=== PATIENT | male | born 1935 | race Caucasian/White ===

== ENCOUNTER → 2017-06-26 | Emergency (ER) | payer MEDICARE, OTHER ==
[~2017-06-26] VITALS: Ht 188 cm; Wt 88.5 kg
[~2017-06-26] MED LIST: ADVAIR 100-501 EACH INH; AMLODIPINE BESYL5 MG; ASPIR-LOW81 MG; ATIVAN1 MG PO; CARTIA XT240 MG PO; CLARITIN10 MG; FUROSEMIDE20 MG PO; IPRAT-ALBUT 0.5-3 ML INH; LISINOPRIL20 MG; NORCO 5-325 TA1 EACH PO; OMEPRAZOLE40 MG PO; PRAVASTATIN SOD10 MG PO; PREDNISONE20 MG PO; TAMIFLU75 MG PO; TRAZODONE HCL50 MG PO; ZITHROMAX250 MG PO
--- OUTSIDE RECORDS SUMMARY | 2017-06-26 01:40 | XMS | Clinical Summary ---
Demographics + + + | Address | [address] | | | [place] [address] | + + + | Home Phone | | + + + | Preferred Language | Unknown | + + + | Marital Status | | + + + | Orthodoxy Affiliation | Unknown | + + + | Race | White | + + + | Ethnic Group | Not or | + + + Author + + + | Author | [facility] | + + + | Organization | [facility] | + + + | Address | Unknown | + + + | Phone | Unavailable | + + + Support +------+ +---------+ + | Name | Relationship | Address | Phone | +------+ +---------+ + ECON | Unknown | Unavailable | +------+ +---------+ + Care Team Providers + +------+ + | Care Outer Diameter Grinder Tool Name | Role | Phone | + +------+ + | Daryl March MD | PP | | + +------+ + Source Comments BETTINA is fully live on both [facility] Ambulatory and [facility] InPatient.[facility] Allergies Not on File Current Medications Not on file Active Problems Not on file Social History + +-------+ +--------+------+ | Tobacco Use | Types | Packs/Day | Years | Date | | | | | Used | | + +-------+ +--------+------+ | Never Assessed | | | | | + +-------+ +--------+------+ + + + | Sex Assigned at | Date Recorded | | | | + + + | Not on file | | + + + Plan of Treatment + + + + + | Health Maintenance | Due Date | Last Done | Comments | + + + + + | INFLUENZA VACCINE | | | | | (FLU SHOT) | 7 | | | + + + + + Results Not on filefrom Last 3 Months"
--- OUTSIDE RECORDS SUMMARY | 2017-06-26 01:40 | XMS | Clinical Summary ---
Demographics + + + | Address | [address] | | | [place] [address] | + + + | Home Phone | | + + + | Preferred Language | Unknown | + + + | Marital Status | | + + + | Congregational Affiliation | Unknown | + + + | Race | White | + + + | Ethnic Group | Not or | + + + Author + + + | Author | [facility] | + + + | Organization | [facility] | + + + | Address | Unknown | + + + | Phone | Unavailable | + + + Support +------+ +---------+ + | Name | Relationship | Address | Phone | +------+ +---------+ + ECON | Unknown | Unavailable | +------+ +---------+ + Care Team Providers + +------+ + | Care Drying Machine Back Tender Name | Role | Phone | + +------+ + | Daryl March MD | PP | | + +------+ + Source Comments BETTINA is fully live on both [facility] Ambulatory and [facility] InPatient.[facility] Allergies Not on File Current Medications Not [...]
--- NOTE | 2017-06-26 13:25 | EKG ---
[facility] [address] [facility] [place] [address] Signed Sinus tachycardia Right bundle branch block Abnormal ECG When compared with ECG of 26-JUN-2017 00:48, (Unconfirmed) No significant change was found Confirmed by AMANDA GONZALES MD ([id number]) on 06/26/2017 1:25:42 PM Electronically Signed By: AMANDA GONZALES MD 06/26/17 1325 PATIENT NAME: NATALIEDSON Electrocardiogram DATE OF : 35 PHYSICIAN: AMANDA GONZALES MD REPORT #: [id number] REPORT IS CONFIDENTIAL AND NOT TO BE RELEASED WITHOUT AUTHORIZATION
--- NOTE | 2017-06-26 13:25 | EKG ---
[facility] [address] [facility] [place] [address] Signed Sinus rhythm Right bundle branch block Abnormal ECG When compared with ECG of 24-MAY-2016 18:47, No significant change was found Confirmed by AMANDA GONZALES MD ([id number]) on 06/26/2017 1:25:15 PM Electronically Signed By: AMANDA GONZALES MD 06/26/17 1325 PATIENT NAME: NATALIEDSON SOTO Electrocardiogram DATE OF : 35 PHYSICIAN: AMANDA GONZALES MD REPORT #: [id number] REPORT IS CONFIDENTIAL AND NOT TO BE RELEASED WITHOUT AUTHORIZATION
== END ==
LOC: ED 00:45
PROC: 0T9B70Z Drainage of Bladder with Drainage Device, Via Natural or Artificial Opening (ICD-10-PCS; principal; 2017-06-26)
DX: K83.0 Cholangitis (principal); J44.9 Chronic obstructive pulmonary disease, unspecified; J96.00 Acute respiratory failure, unspecified whether with hypoxia or hypercapnia; I11.0 Hypertensive heart disease with heart failure; I50.9 Heart failure, unspecified; Z87.891 Personal history of nicotine dependence; Z88.8 Allergy status to other drugs, medicaments and biological substances; Z79.899 Other long term (current) 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
CPT/HCPCS: 31500; 36600; 51702; 71045; 76705; 80053; 81001; 82803; 83605; 83690; 83880; 84484; 85025; 87040; 87077; 87184; 87186; 87502; 93005; 93010; 94002; 94640; 94660; 96361; 96374; 96375; 99291; 99292; J0295; J2405; J2704; J2930; J7030

== ENCOUNTER 2017-07-13 09:35 | Day surgery (SDC) | payer MEDICARE, OTHER ==
[~2017-07-13] VITALS: Ht 175.3 cm; Wt 85.3 kg
[~2017-07-13 09:35] MED LIST changes: -NORCO 5-325 TA1 EACH PO
--- NOTE | 2017-07-13 15:28 | NUR ---
07/13/17 Jyothi8 Alexia Avalos 1519-PATIENT ARRIVED TO PACU ON 6L MASK O2 SAT 99% PATIENT REACTIVE EYES OPEN. PATIENT HAS 3 LAP INCISIONS CDI AND 1 INCISION FROM CYST CDI ICE APPLIED.
--- NOTE | 2017-07-13 16:23 | NUR ---
1600: PATIENT UP TO BATHROOM. GAIT STEADY. VOID WITHOUT DIFFICULTY. GAIT STEADY BACK TO ROOM. IV DC'D WNL. DISCHARGE INSTRUCTIONS GIVEN TO PATIENT. PATIENT GETTING DRESSED WITH HELP OF FRIEND. 1612: PATIENT DISCHARGED TO HOME WITH FRIEND VIA WHEELCHAIR.
--- NOTE | 2017-07-13 16:41 | NUR ---
PATIENT BACK IN DAY SURGERY ROOM FROM PACU. C/O PAIN 10/28. MEDICATED WITH IV DILAUDID FOR PAIN. RIGHT CHEST DRESSING CDI. ABDOMINAL DRESSINGS X 3 CDI. IV SITE WNL. SCDs ON. CALL LIGHT WITHIN REACH. PRESCRIPTION GIVEN TO DAUGHTER TO GO GET FILLED.
--- NOTE | 2017-07-13 17:10 | NUR ---
1650: DR. MARR NOTIFIED OF PATIENT STATUS. ORDERS RECEIVED. 1705: REPORT GIVEN TO M/S RN. PATIENT TRANSFERRED TO ROOM 121 FOR EXTENDED RECOVERY OVERNIGHT.
--- NOTE | 2017-07-13 17:17 | NUR ---
1710-PATIENT TRANSFERRED TO ROOM 121 VIA STRETCHER ON 2L NC O2 SAT 95% PATIENT AWAKE AND ALERT REPORTS PAIN 2/10 SB HR 55. INCISIONS CDI DAUGHTER TOOK PRESCRIPTIONS TO PHARMACY.
--- NOTE | 2017-07-13 17:28 | NUR ---
PT HAS ARRIVED FROM PACU, VITALS TAKEN, AND PT IS NOW RESTING SAFELY IN BED WITH CALL LIGHT IN REACH. PT ASKED FOR SOUP AND JERROD
--- NOTE | 2017-07-13 18:44 | NUR ---
PATIENT TO FLOOR FROM SURGERY, ALERT AND ORIENTED. PATIENT DENIED NAUSEA. RATED HIS PAIN @ 2/10. 4 LAP SITES ON THE ABD COVERED WITH GAUZE AND D/C/I. IV FLUID INFUSING @ 75ML/HR. PATIENT TOLERATED PO WELL. HAD SOUP AND JELLO. PATIENT ON 2L O2. TELE # 7. PULSE OXYMETER
--- NOTE | 2017-07-13 19:35 | NUR ---
ROUNDED CHARGE. PATIENT IS RESTING IN BED. PATIENT DENIES ANY PAIN OR NAUSEA. NO NEEDS NOTED. NO COMMENTS, QUESTIONS, OR CONCERNS. CALL LIGHT IN REACH.
--- NOTE | 2017-07-13 19:55 | NUR ---
RECIEVED REPORT FROM DAY SHIFT NURSE. ASSISTED PATIENT TO BATHROOM TO VOID. BACK TO BED. CALL LIGHT IN REACH.
--- NOTE | 2017-07-13 20:15 | NUR ---
PATIENT RESTING IN BED. RATES ABDOMINAL "ACHEY" PAIN 10/28. 1 TAB NORCO ADMINISTERED. ABDOMINAL DRESSING ARE ALL C/D/I. HYPOACTIVE BS HEARD, PATIENT DENIES FLATUS AT THIS TIME. LUNGS ARE DIMINISHED, ENCOURAGED INCENTIVE SPIROMETER. HR REGULAR. PALPABLE PEDAL PULSES. SCDS IN PLACE. WATER PITCHER FILLED. PATIENT DENIES FURTHER NEEDS. CALL LIGHT IN REACH.
--- NOTE | 2017-07-13 22:01 | NUR ---
AMBULATED WITH PATIENT AROUND MS UNIT. PATIENT RATING ABDOMINAL PAIN 11/27. DILAUDID ADMINISTERED WHEN HE GOT BACK INTO BED. PATIENT SITTING AT A DANGLE ON EDGE OF BED. DENIES FURTHER NEEDS. CALL LIGHT IN REACH.
--- NOTE | 2017-07-13 23:15 | NUR ---
PATIENT RESTING IN BED WITH EYES CLOSED. CONT. PULSE OX IN PLACE, O2 AT 92% ON 2L. IVF INFUSING W/O DIFFICULTY. CALL LIGHT IN REACH.
--- NOTE | 2017-07-14 01:11 | NUR ---
PATIENT SLEEPING. CONT. PULSE OX IN PLACE. IVF INFUSING W/O DIFFICULTY. CALL LIGHT IN REACH.
--- NOTE | 2017-07-14 01:35 | NUR ---
RAG COLLECTOR OBTAINING VS AND ASSISTING AMBULATING PATIENT TO THE BATHROOM.
--- NOTE | 2017-07-14 01:42 | NUR ---
PATIENT STATES PAIN AT A TOLERABLE LEVEL AND DOES NOT REQUIRE PAIN MEDICATION AT THIS TIME.
--- NOTE | 2017-07-14 02:00 | NUR ---
PATIENT ONLY ABLE TO VOID 50CC. BLADDER SCANNNED PATIENT TO FIND 986CC. CALLED DR. MARR, OBTAINED ORDER FOR STRAIGHT CATH. CATHED PATIENT AND OBTAINED 725CC OF URINE OUT. PATIENT DENIES FURTHER NEEDS. DENIES PAIN. CALL LIGHT IN REACH.
--- NOTE | 2017-07-14 04:19 | NUR ---
PATIENT SLEEPING. CONT. PULSE OX AT 94%. CALL LIGHT IN REACH.
--- NOTE | 2017-07-14 05:33 | NUR ---
PATIENT RESTING IN BED, REQUESTING PAIN MEDICATION. ADMINISTERED 2 TAB NORCO FOR PAIN 7/. PATIENT STATES IT IS SHARP PAIN. ACTIVE BS IN RUQ AND HYPOACTIVE IN LUQ AND BLQ. PATIENT DENIES FLATUS AT THIS TIME. ABD IS SOFT. LAP SITE AT UMBILLICUS SHADOWING WELL THE DRESSING DIRECTLY ABOVE. THE REST ARE C/D/I. PATIENT AT 92% ON 2L/MIN VIA NASAL CANNULA. GAVE PATIENT A PUDDING TO TAKE WITH HIS PAIN MEDS. IVF INFUSING W/O DIFFICULTY. CALL LIGHT IN REACH.
--- NOTE | 2017-07-14 07:48 | NUR ---
REPORT RECEIVED FROM MANDO. PATIENT AWAKE IN BED, REPORT MINIMAL PAIN. IV SITE PATENT AND FLUID INFUSING. FLOMAX ADMINISTERED TO PATIENT PER MD ORDER.
[2017-07-14] MEDS ORDERED: NORCO 5-325 TA1 EACH PO (08:05)
--- NOTE | 2017-07-14 09:55 | NUR ---
PATIENT UP SITTING AT BEDSIDE. REPORT NO NAUSEA, MINIMAL ABD PAIN. SHIFT ASSESSMENT DONE. ABD DRESSING IN REMOVED PER MD ORDER. 4 LAPS SITES AND A RIGHT UPPER INCISION WITH SUTURE. ALL WNL. POSITIVE BOWEL TONE. PATIENT DENIES PASSING FLATUS. LUNGS CLEAR.IV SITE PATENT AND FLUID INFUSING. TELE DC. PATIENT WAS UP WALKING IN THE HALLWAY WITH NO DIFFICULTY. BACK TO BED AT THIS TIME.
--- NOTE | 2017-07-14 10:08 | NUR ---
PT WALKED TO BATHROOM, VOIDED, THEN RETURNED TO BED. PT IS NOW RESTING IN BED WITH CALL LIGHT IN REACH. PT DID NOT NEED ANYTHING ELSE AT THE MOMENT
--- NOTE | 2017-07-14 11:19 | NUR ---
PATIENT VOIDED 125ML AND HAD 166ML RESIDUAL IN BLADDER SCAN.
--- NOTE | 2017-07-14 12:27 | NUR ---
PATIENT AMBULATED TWO LAPS IN PULLIAM. RAMIRO C/O CONSTIPATION. WOULD LIKE FLEETS ENEMA. PATIENT WAS ABLE TO VOID 150MLS OF URINE. BS FOR 150.
--- NOTE | 2017-07-14 12:30 | NUR ---
DR MARR WAS NOTIFIED ABOUT PATIENT URINE OUTPUT AFTER THE FLOMAX. ALSO ABOUT PATIENT C/O CONSTIPATION. ORDER RECEIVED FOR FLEET ENEMA AND TO D/C PATIENT HOME LATER.
--- NOTE | 2017-07-18 06:10 | OR ---
[facility] [address] [place], [place] [address] Signed DATE OF OPERATION: 07/13/2017 SURGEON: Ez Flowers MD PREOPERATIVE DIAGNOSES: 1. Recurrent cyst, right chest wall. 2. Cholecystitis with cholelithiasis. 3. Choledocholithiasis status post ERCP with endobiliary stent. POSTOPERATIVE DIAGNOSES: 1. Recurrent cyst, right chest wall. 2. Cholecystitis with cholelithiasis. 3. Choledocholithiasis status post ERCP with endobiliary stent. PROCEDURE: 1. Excision of right chest wall cyst. 2. Laparoscopic cholecystectomy with intraoperative cholangiogram. ESTIMATED BLOOD LOSS: None. FINDINGS: Carlos clearly had some retained stones and debris in his cystic duct, which we milked out. He has had similar stones and debris inside the gallbladder itself. The intraoperative cholangiogram showed contrast flowing around his stent into the duodenum. There may have been some debris in the common bile duct, in fact maybe an air bubble as well. INDICATIONS: Carlos an 82-year-old gentleman I have known for quite some time. He came to our local emergency room with significant right upper quadrant abdominal pain and sepsis. He had to be intubated and flown to [facility]. He underwent an emergent ERCP with removal of the common bile duct stones and placement of an endobiliary stent. He was kept in the hospital on IV antibiotics. He improved and within about a week was discharged. He was offered his cholecystectomy at [facility], but he asked to come home here to [place] to have me do it here locally. I met with Carlos in the office and I gave him a booklet on the gallbladder. We looked at its location and function. We looked at laparoscopic versus open cholecystectomy. Also understands dissection on ERCP. He understands expected intraop and postop course. We did review the risks including, but not limited to Electronically Signed By: EZ FLOWERS MD 07/18/17 0610 PATIENT NAME: CARLOS HURST OPERATIVE REPORT DATE OF : 35 REPORT #: [id number] PHYSICIAN: EZ FLOWERS MD PCP: NO PRIMARY CARE PHYSICIAN REPORT IS CONFIDENTIAL AND NOT TO BE RELEASED WITHOUT AUTHORIZATION [facility] [address] [place], [place] [address] Signed bleeding, infection, scarring, change in contour of the skin, damage to bowel, damage to main bile duct, incisional hernias and other unforeseen comorbidities. He had expressed understanding and wished to proceed. Also, Carlos has a chronically recurring draining cyst on his right chest wall. He asked if I could excise that at the same time in the OR while he was asleep. It is certainly simple enough. Again, there is risk to that surgery including, but not limited to bleeding, infection, scarring, change in contour of the skin as well as recurrent cyst in the same or other locations. He had expressed understanding and wished to proceed. PROCEDURE NOTE: I met with Carlos and his daughter before surgery. After review, Carlos was taken into the operating room and placed in the supine position under general endotracheal tube anesthesia. We had marked the cyst on his right chest wall. He was given preoperative antibiotics along with subcutaneous heparin. SCDs were utilized. He was then prepped and draped in the usual sterile fashion. We placed our trocars in our usual positions under direct visualization of camera without difficulty. The gallbladder was grasped and elevated in the right upper quadrant. The findings were as above. He had some adhesions around the gallbladder into the liver as well as some remaining edema in the gallbladder wall along with the portal triad. The triangle of Calot was dissected free and a clip was placed on the cystic artery and it was divided. We opened the cystic duct and milked out several black gallstones and debris. After this the intraoperative cholangiocatheter was inserted into the cystic duct without difficulty. The intraoperative cholangiogram was then performed. The cystic duct stump was then secured with a PDS Endoloop and 2 clips were placed on the cystic duct stump to eddy its location. After this, the gallbladder was removed from the liver with the help of cautery and placed into an EndoCatch bag. The right upper quadrant was then irrigated and suctioned out until clear. We then used our laparoscopic suturing device to close the fascia of the subxiphoid trocar site with 0 Vicryl suture. All the gas was allowed to escape and the remaining trocars were removed along with the gallbladder. The gallbladder was opened on the back table by our circulating nurse. The fascia of the supraumbilical trocar site was closed with interrupted [id number] and simple 0 Vicryl sutures. Local anesthetic was then copiously injected into all trocar sites. Each trocar site was irrigated and suctioned out until clear. The skin and dermis of each trocar site were then closed with interrupted 3-0 subcuticular Monocryl sutures. After this, we used an elliptical incision to excise the right chest wall cyst. The dermis was reapproximated with interrupted 3-0 subcuticular Monocryl sutures. The skin edges were reapproximated with a running 6-0 fast absorbing plain gut suture. Dry gauze and tape were then applied to all incisions. Carlos was awakened from his anesthesia, extubated in the OR, and taken to recovery room in stable condition. Electronically Signed By: EZ FLOWERS MD 07/18/17 0610 PATIENT NAME: CARLOS HURST OPERATIVE REPORT DATE OF : 35 REPORT #: [id number] PHYSICIAN: EZ FLOWERS MD PCP: NO PRIMARY CARE PHYSICIAN REPORT IS CONFIDENTIAL AND NOT TO BE RELEASED WITHOUT AUTHORIZATION [facility] [address] [place], [place] [address] Signed Ez Flowers MD ALB/MODL /[id number] cc: MD Herlinda Fernando PA-C Patricio Riquelme, md [facility] Copies: EZ FLOWERS MD, DANIELLE K [facility] Electronically Signed By: EZ FLOWERS MD 07/18/17 0610 PATIENT NAME: CARLOS HURST OPERATIVE REPORT DATE OF : 35 REPORT #: [id number] PHYSICIAN: EZ FLOWERS MD PCP: NO PRIMARY CARE PHYSICIAN REPORT IS CONFIDENTIAL AND NOT TO BE RELEASED WITHOUT AUTHORIZATION
== END 2017-07-14 14:00 | disposition home or self-care (01) ==
LOC: DS 09:35 → MS 17:00 → DS 07-14 14:00
PROVIDERS: Colon & Rectal Surgery
PROC: 0JB60ZZ Excision of Chest Subcutaneous Tissue and Fascia, Open Approach (ICD-10-PCS; 2017-07-13)
PROC: 0FT44ZZ Resection of Gallbladder, Percutaneous Endoscopic Approach (ICD-10-PCS; principal; 2017-07-13 12:30)
PROC: BF101ZZ Fluoroscopy of Bile Ducts using Low Osmolar Contrast (ICD-10-PCS; 2017-07-13 12:30)
DX: K80.10 Calculus of gallbladder with chronic cholecystitis without obstruction (principal); L72.0 Epidermal cyst; I10 Essential (primary) hypertension; K21.9 Gastro-esophageal reflux disease without esophagitis; R00.1 Bradycardia, unspecified; I73.00 Raynaud's syndrome without gangrene; E78.5 Hyperlipidemia, unspecified; J44.9 Chronic obstructive pulmonary disease, unspecified; R26.81 Unsteadiness on feet; Z88.8 Allergy status to other drugs, medicaments and biological substances; Z79.899 Other long term (current) 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; Z87.891 Personal history of nicotine dependence
CPT/HCPCS: 00790; 74300; 94762; J0694; J1170; J1644; J1885; J2405; J2704; J2710; J3010; J7120; Q9967

== ENCOUNTER 2017-07-16 01:36 | Inpatient (IN) | payer MEDICARE, SELFPAY ==
[~2017-07-16] VITALS: Ht 175.3 cm; Wt 79.9 kg
--- OUTSIDE RECORDS SUMMARY | ~2017-07-16 | XMS | Encounter Summary ---
Demographics + + + | Address | [address] | | | [place] [address] | + + + | Home Phone | | + + + | Preferred Language | Unknown | + + + | Marital Status | Single | + + + | Quaker Affiliation | NON | + + + [...] Phone | + + +---------+ + | RITESH SPRINGER | ECON | Unknown | | + + +---------+ + Care Team Providers + +------+ + | Care Hearing Aid Assembly Supervisor Name | Role | Phone | + +------+ + | Daryl March MD | PCP | | + +------+ + Encounter Details +--------+ + + + + | Date | Type | Department | Care Team | Description | +--------+ + + + + | 06/28/ | Document-Sc | Health Information | Other, Faculty | | | 2018 | anned | Services [address] | [phone] | | | | | [address] | | | | | | Road Mailcode: | | | | | | [address] | | | | | | [facility] [place] | | [place], [place] | | | | | | [address] | | | | | | [phone] | | | +--------+ + + + [...] + +---------+ + | Alcohol Use | Drinks/We | oz/Week | Comments | | | ek | | | + + +---------+ + | Yes | | | occasional | + + +---------+ + + + + | Sex Assigned at | Date Recorded | | | | + + + | Not on file | | + + + as of this encounter Plan of Treatment Not on fileas of this encounter Visit Diagnoses Not on filein this encounter"
--- OUTSIDE RECORDS SUMMARY | ~2017-07-16 | XMS | Encounter Summary ---
Demographics + + + | Address | [address] | | | [place] [address] | + + + | Home Phone | | + + + | Preferred Language | Unknown | + + + | Marital Status | Single | + + + | Orthodoxy Affiliation | NON | + + + | Race | White | + + + | Ethnic Group | Not or | + + + Author + + + | Author | [facility] | + + + | Organization | [facility] | + + + | Address | Unknown | + + + | Phone | Unavailable | + + + Support + + +---------+ + | Name | Relationship | Address | Phone | + + +---------+ + | RITESH SPRINGER | ECON | Unknown | | + + +---------+ + Care Team Providers + +------+ + | Care Ground Control Approach Technician Name | Role | Phone | + +------+ + | Daryl Mathews MD | PCP | | + +------+ + Encounter Details +--------+ + + + + | Date | Type | Department | Care Team | Description | +--------+ + + + + | 06/26/ | Inside | Digestive Health | Paulette Mckenzie MD | | | 2018 | Referral | Center at [facility] 4th | [address] | | | | Order | Floor [address] [facility] | [facility], | | | | | [facility] | [place] [address] | | | | | Mailcode: [id number] | [phone] | | | | | [address] | | | | | | [address] [place], [place] | | | | | | [address] | | | | | | [phone] | | | +--------+ + + + [...] Treatment Not on fileas of this encounter Results ERCP (06/27/2017 6:38 AM) + + + | Specimen | Performing Laboratory | + + + | | [facility] | + + + + + | Narrative | + + | Procedure Date: 06/27/2017 Patient Name: William Burns Order #: | | [id number] Date of : 1935 CSN: [id number] Admit Type: Inpatient Room: SOR | | Procedure: ERCP Indications: For therapy of | | ascending cholangitis; 82 yo M with sepsis, | | elevated LFTs and US showing mary dil and 1.3 cm | | CBD Providers: RENE Mackay | | MD ERICA (Doctor), JORDY SOLANO, | | RN (Nurse), ESTELA DAMIAN RN (Parking Station Attendant) Referring MD: Requesting | | Provider: Medicines: General Anesthesia, Indomethacin 100 mg PA | | Complications: No immediate complications. Procedure: | | Pre-Anesthesia Assessment: - ASA Grade | | Assessment: III - A patient with severe | | systemic disease. - After reviewing the risks | | and benefits, the patient was deemed in | | satisfactory condition to undergo the | | procedure. Prior to the procedure, a History | | and Physical with airway assessment was | | performed (see patient record), and patient | | medications and allergies were reviewed. The | | risks and benefits of the procedure and the sedation | | options and risks were discussed. All questions | | were answered and informed consent was | | obtained. After reviewing the risks and | | benefits, the patient was deemed in | | satisfactory condition to undergo the procedure. | | Immediately prior to administration of | | medications, the patient was re-assessed for | | adequacy to receive sedatives. The heart | | rate, respiratory rate, oxygen saturations, | | blood pressure, adequacy of pulmonary | | ventilation, and response to care were monitored | | throughout the procedure. The physical status | | of the patient was re-assessed after the | | procedure. The Olympus TJF-Q180V Duodenoscope | | #[id number] was introduced through the mouth, | | and advanced to the duodenum and used to | | inject contrast into the bile duct. The ERCP | | was accomplished without difficulty. The | | patient tolerated the procedure well. Estimated Blood Loss: Estimated blood | | loss: none. Findings: urgent SOR case for ICU patient with acute cholangitis. | | The features editor film was normal. The esophagus was successfully intubated under | | direct vision. The scope was advanced to a normal major papilla in the | | descending duodenum without detailed examination of the pharynx, larynx | | and associated structures, and upper GI tract. The upper GI tract was | | grossly normal. A short 0.035 inch Soft Jagwire was passed into the | | biliary tree. The short-nosed traction sphincterotome was passed over the | | guidewire and the bile duct was then deeply cannulated. Contrast was | | injected. I personally interpreted the bile duct images. Ductal flow of | | contrast was adequate. Image quality was excellent. Contrast extended to the | | hepatic ducts. The bile duct was significant pulled to the patient right and | | angulated. The wire could be advanced to the hepatic ducts. The main bile | | duct contained four stones, the largest of which was 8 mm in diameter. There | | was mild biliary dilation. A biliary sphincterotomy was made with a traction | | (standard) sphincterotome. There was no post-sphincterotomy bleeding. The | | biliary tree was swept with a 10 mm balloon starting at the bifurcation. | | Sludge was swept from the duct. Four stones were removed. No stones remained. | | A 10 mm balloon could be brought through the sphincterotomy with ease. | | Multiple additional balloon sweeps performed and no additional stones or | | sludge were found. Negative final occlusion cholangiogram. One 10 Fr by 10 cm | | plastic biliary stent was placed into the common bile duct. Bile flowed | | through the stent. The stent was in good position. The ampulla after | | sphincterotomy had an unusual appearance and was erythematous. Biopsies | | were taken of this region through the ERCP scope with the cold forceps | | for histology. The pancreatic duct was neither injected nor cannulated. | | Impression: - Choledocholithiasis was found. Complete removal was | | accomplished by biliary sphincterotomy and | | balloon extraction. No pus found. Given acute | | cholangitis, 10 Fr stent placed. | | - Unusual appearance of post sphincterotomy | | ampulla, bx taken | | Recommendation: F/u path F/u LFTs | | and clinically; if he doesnt improve, consider | | repeating abd US to evaluate gallbaldder | | Will need ERCP in 4 weeks post d/c to remove | | stent and clear duct | | Given that we were in SOR, images were not | | available RENE MALDONADO MD 06/27/2017 6:48:17 AM Number of Addenda: 0 Note | | Initiated On: 06/27/2017 6:38 AM CC Letter to: DARYL MATHEWS MD | + + in this encounter Visit Diagnoses + + | Diagnosis | + + | Dyspnea, unspecified type - Primary | + +"
--- OUTSIDE RECORDS SUMMARY | ~2017-07-16 | XMS | Clinical Summary ---
Demographics + + + | Address | [address] | | | [place] [address] | + + + | Home Phone | | + + + | Preferred Language | Unknown | + + + | Marital Status | Single | + + + | Hinduism Affiliation | NON | + + + | Race | White | + + + | Ethnic Group | Not or | + + + Author + + + | Author | [facility] | + + + | Organization | [facility] | + + + | Address | Unknown | + + + | Phone | Unavailable | + + + Support + + +---------+ + | Name | Relationship | Address | Phone | + + +---------+ + | RITESH SPRINGER | ECON | Unknown | | + + +---------+ + Care Team Providers + +------+ + | Care Railroad Signal Technician Name | Role | Phone | + +------+ + | Daryl March MD | PP | | + +------+ + Source Comments BETTINA is fully live on both [facility] and [facility] Allergies + + + + + + [...] + + + + + + | Fluticasone-Salmeter | Dyspnea | High | 08/11/19 | "I can't breathe | | ol | | | 14 | when I use it." | + + + + + + | Hydrochlorothiazide | Rash | | 06/26/19 | | | | | | 18 | | + + + + + + Current Medications + + +--------+---------+------+------+-------+ | Prescription | Sig. | Disp. | Refills | Star | End | Statu | | | | | | t | Date | s | | | | | | Date | | | + + +--------+---------+------+------+-------+ | furosemide 20 mg | Take 20 mg by mouth | | | 01/0 | | Activ | | oral tablet | once daily. | | | 20 | | e | | | | | | 18 | | | + + +--------+---------+------+------+-------+ | lisinopril 20 mg | Take 20 mg by mouth | | | 01/0 | | Activ | | oral tablet | once daily. | | | 320 | | e | | | | | | 18 | | | + + +--------+---------+------+------+-------+ | omeprazole 40 mg | Take 40 mg by mouth | | | 01/0 | | Activ | | oral capsule,delayed | once daily in the | | | 3/20 | | e | | release(DR/EC) | morning. | | | 18 | | | + + +--------+---------+------+------+-------+ | pravastatin 10 mg | Take 10 mg by mouth | | | 12/2 | | Activ | | oral tablet | once daily at | | | 20 | | e | | | bedtime. | | | 17 | | | + + +--------+---------+------+------+-------+ | loratadine | Take 10 mg by mouth | | | | | Activ | | (CLARITIN LIQUI-GEL) | once daily. | | | | | e | | 10 mg oral capsule | | | | | | | + + +--------+---------+------+------+-------+ | | Inhale 3 mL every | | | | | Activ | | ipratropium-albutero | four hours as needed | | | | | e | | l 0.5 mg-3 mg(2.5 mg | for dyspnea/SOB. | | | | | | | base)/3 mL | | | | | | | | inhalation solution | | | | | | | | for nebulization | | | | | | | + + +--------+---------+------+------+-------+ | naproxen sodium | Take 1 capsule by | | | | | Activ | | 220 mg oral capsule | mouth once daily as | | | | | e | | | needed. | | | | | | + + +--------+---------+------+------+-------+ | polyethylene | Mix 1 packet and | 1 | 1 | 02/1 | | Activ | | glycol 17 gram oral | take orally once | packet | | 1/20 | | e | | powder in packet | daily. | | | 18 | | | + + +--------+---------+------+------+-------+ | simethicone chew | Chew and swallow 1 | 30 | 1 | 02/1 | | Activ | | 80 mg oral | tablet three times | tablet | | 0/20 | | e | | tablet,chewable | daily as needed for | | | 18 | | | | | bloating. | | | | | | + + +--------+---------+------+------+-------+ | acetaminophen 325 | Take 2 tablets by | 30 | 1 | 02/1 | | Activ | | mg oral tablet | mouth every six | tablet | | 020 | | e | | | hours while awake. | | | 18 | | | + + +--------+---------+------+------+-------+ | | Take 1 tablet by | 27 | 0 | 02/ | 06/21 | Expir | | amoxicillin-clavulan | mouth three times | tablet | | 0/20 | 02/07 | ed | | ate 500-125 mg oral | daily for 9 days. | | | 18 | 18 | | | tabletIndications: | Indications: | | | | | | | intra-abdominal | abdominal infection | | | | | | | infection | | | | | | | + + +--------+---------+------+------+-------+ Active Problems + + + | Problem | Noted Date | + + + | Physical deconditioning | 06/30/2017 | + + + | Aspiration pneumonitis (HCC) | 06/28/2017 | + + + | S/P ERCP | 06/28/2017 | + + + | COPD (chronic obstructive pulmonary disease) (HCC) | 06/28/2017 | + + + | Essential hypertension | 06/28/2017 | + + + | Acute cholangitis | 06/27/2017 | + + + | Klebsiella sepsis (HCC) | 06/27/2017 | + + + | Choledocholithiasis | 06/26/2017 | + + + Resolved Problems + + + + | Problem | Noted | Resolved | | | Date | Date | + + + + | Non-ST elevation myocardial infarction (NSTEMI), type 2 (HCC) | 06/28/19 | | | | 18 | 8 | + + + + | Acute respiratory failure with hypoxia (HCC) | 06/28/19 | | | | 18 | 8 | + + + + | Septic shock (HCC) | 06/27/19 | | | | 18 | 8 | + + + + Encounters +--------+ + + + + | Date | Type | Specialty | Care Team | Description | +--------+ + + + + | 07/04/ | Telephone | | Franko Rowell | Other | | 2017 | | | MD [facility]erson | | +--------+ + + + + | 07/04/ | Inside | | Lyla Maldonado | | | 2018 | Referral | | MD Rashida | | | | Order | | | | +--------+ + + + + | 06/28/ | Document-Sc | | Other, Faculty | | | 2018 | anned | | | | +--------+ + + + + | 06/27/ | Sulfur Chloride Operator | | Lyla Maldonado | Choledocholithiasis | | 2017 | | | MD Rashida | (Primary Dx) | +--------+ + + + + | 06/26/ | Hospital | | Alberto Miranda MD | | | 2017 - | Encounter | | Vic Petty | | | | | | MD [facility]erson | | | 06/30/ | | | | | | 2017 | | | | | +--------+ + + + + +---+ + | | Discharge | | | Summaries | | | - | | | Alfa, | | | Virgil Chance | | | - | | | 06/30/2017 | | | 1:55 PM | | | PST | | | Formatting | | | of this | | | note may be | | | different | | | from the | | | original.[place] | | [facility] | | | Discharge | | | SummaryDisc | | | harging | | | Provider: | | | VIRGIL M | | | [place], | | | | | | MDDischargi | | | ng | | | Attending | | | Physician: | | | Dr Ho | | | | | | RiquelmePCP | | | : Daryl | | | Marier, | | | MDAdmission | | | Date: | | | 06/26/2017Dis | | | charge | | | Date: | | | Hos | | | pital Stay: | | | 4 | | | day(s)Diagn | | | osis:Princi | | | pal | | | Diagnosis:1 | | | . Septic | | | shock2. | | | Ascending | | | Cholangitis | | | Additional | | | Diagnoses:P | | | atients | | | Hospital | | | Problem | | | List:1) | | | Klebsiella | | | bacteremia | | | 2) | | | Aspiration | | | pneumonitis | | | 3) COPD4) | | | Hypertensio | | | nProcedures | | | : | | | #Intubation | | | (at OSH | | | prior to | | | transfer)#C | | | entral | | | venous | | | catheter | | | insertion, | | | RIJ - | | | 06/26/17#Ar | | | terial | | | line, R | | | radial - | | | 06/26/17Rea | | | son for | | | Admission:# | | | Septic | | | ShockHospit | | | al Course | | | by Problem | | | (with | | | follow-up | | | plan/instru | | | ctions):#Se | | | ptic | | | Shock#Ascen | | | ding | | | cholangitis | | | #Klebsiella | | | | | | bacteremiaP | | | resented as | | | transfer | | | from OSH in | | | setting of | | | subacute, | | | progressive | | | | | | post-prandi | | | al | | | abdominal | | | pain. At | | | OSH, was | | | found to be | | | tachypneic | | | (did not | | | tolerate | | | BiPAP) and | | | intubated | | | prior to | | | transfer to | | | [facility]. | | | Workup was | | | notable for | | | RUQ U/S | | | with | | | gallbladder | | | wall | | | thickening | | | & sludge | | | with | | | +Keita's | | | sign. Labs | | | remarkable | | | for CBC | | | 10.8; | | | lactate | | | 2.2; Tbili | | | 3.1; AST | | | 315; ALT | | | 259; Alk | | | Phos 221. | | | Patient | | | temporarily | | | required | | | pressor | | | support | | | while in | | | MICU. | | | Etiology of | | | septic | | | shock felt | | | most likely | | | 2/2 acute | | | cholangitis | | | (fever, | | | abd pain, | | | cholestatic | | | pattern of | | | liver | | | injury and | | | dilated | | | biliary | | | tree). | | | Initially | | | started on | | | Zosyn then | | | transitione | | | d to | | | Augmentin | | | after blood | | | cultures | | | resulted | | | +Klebsiella | | | . Pt | | | underwent | | | ERCP | | | (06/26) | | | with | | | removal of | | | several CBD | | | stones & | | | sludge | | | following | | | biliary | | | sphincterot | | | taco with 10 | | | Fr stent | | | placement | | | into CHD. | | | - continue | | | Augmentin | | | 500 TID | | | (end | | | 07/09/17) | | | - GI to | | | schedule | | | repeat ERCP | | | with | | | possible | | | stent | | | retrieval | | | - bowel | | | regimen - | | | PCP | | | follow-up | | | in 1-2 | | | wks#NSTEMI, | | | Type | | | IITrop | | | mildly | | | elevated at | | | 0.33 on | | | admission. | | | No report | | | of recent | | | CP from OSH | | | or | | | daughter. | | | No ischemic | | | changes on | | | EKGs at | | | OSH nor | | | here. | | | Suspect 2/2 | | | type II | | | NSTEMI 2/2 | | | sepsis.#Hyp | | | ertensionAn | | | ti-hyperten | | | sives | | | initially | | | held in | | | setting of | | | septic | | | shock. | | | However, | | | lisinopril | | | continued | | | prior to | | | d/c | | | following | | | resolution | | | of sepsis | | | physiology | | | and | | | elevating | | | BPs. | | | However, | | | continued | | | to hold | | | diltiazem | | | prior to | | | discharge. | | | - | | | continue | | | lisinopril | | | 20 daily - | | | | | | discontinue | | | | | | diltiazem#p | | | aroxysmal | | | SVTOn | | | arrival pt | | | noted to be | | | in a | | | regular, | | | narrow | | | complex | | | tachycardia | | | requiring | | | temporary | | | esmolol gtt | | | before | | | converting | | | back to | | | NSR. | | | However, | | | patient | | | became | | | persistentl | | | y | | | bradycardic | | | to 40s. | | | Electrophys | | | iology | | | consulted | | | and | | | recommended | | | low dose | | | BBs were | | | SVT to | | | return - | | | avoid | | | diltiazem. | | | - | | | consider | | | low dose BB | | | for | | | recurrent | | | SVT#COPD - | | | continue | | | home | | | duo-neb q6 | | | prn#GERD - | | | continue | | | omeprazole | | | 40 mg | | | qAM#Pitting | | | Edema - | | | lasix 20 | | | dailyPertin | | | ent | | | Findings:Im | | | aging: RUQ | | | US - | | | 02/07IMPRES | | | JOSEF: 1. | | | Gallbladder | | | distention | | | and | | | biliary | | | dilation | | | concerning | | | for distal | | | biliary | | | obstruction | | | due to | | | choledochol | | | ithiasis. | | | Malignant | | | obstruction | | | is not | | | excluded | | | and | | | pancreatic | | | CT may be | | | indicated.2 | | | . Probable | | | cirrhosis.C | | | XR - | | | 02/06IMPRES | | | JOSEF:1. | | | ET tube | | | terminates | | | 7 cm above | | | ray.2. | | | NG tube | | | barely | | | extends | | | beyond the | | | GE | | | junction; | | | this could | | | be advanced | | | for more | | | optimal | | | positioning | | | .3. Mild | | | infrahilar | | | airways | | | thickening | | | can be seen | | | with | | | reactive | | | airways | | | disease or | | | bronchitis. | | | Right | | | lung base | | | atelectasis | | | . Other | | | Studies:Out | | | standing or | | | Pending | | | Labs/Studie | | | s: | | | Consultants | | | | | | (service/at | | | tending | | | name): | | | #Electrophy | | | siology - | | | Dr | | | Henrickson# | | | GIDischarge | | | | | | Medications | | | : | | | Medication | | | List START | | | taking | | | these | | | medications | | | | | | acetaminoph | | | en 325 mg | | | TabCommonly | | | known as: | | | | | | TYLENOLTake | | | 2 tablets | | | by mouth | | | every six | | | hours while | | | awake. | | | amoxicillin | | | -clavulanat | | | e 500-125 | | | mg | | | TabCommonly | | | known as: | | | | | | AUGMENTINTa | | | ke 1 tablet | | | by mouth | | | three times | | | daily for | | | 9 days. | | | Indications | | | : abdominal | | | infection | | | polyethylen | | | e glycol 17 | | | gram | | | PwpkCommonl | | | y known as: | | | | | | MIRALAXMix | | | 1 packet | | | and take | | | orally once | | | | | | daily.Start | | | taking on: | | | 07/01/2017 | | | | | | simethicone | | | chew 80 mg | | | | | | ChewCommonl | | | y known as: | | | | | | MYLICONChew | | | and | | | swallow 1 | | | tablet | | | three times | | | daily as | | | needed for | | | bloating. | | | CONTINUE | | | taking | | | these | | | medications | | | CLARITIN | | | LIQUI-GEL | | | 10 mg | | | CapGeneric | | | drug: | | | loratadine | | | furosemide | | | 20 mg | | | TabCommonly | | | known as: | | | LASIX | | | ipratropium | | | -albuterol | | | 0.5 mg-3 | | | mg(2.5 mg | | | base)/3 mL | | | NebuCommonl | | | y known as: | | | DUO-NEB | | | lisinopril | | | 20 mg | | | TabCommonly | | | known as: | | | PRINIVIL | | | naproxen | | | sodium 220 | | | mg Cap | | | omeprazole | | | 40 mg | | | CpdrCommonl | | | y known as: | | | PRILOSEC | | | pravastatin | | | 10 mg | | | TabCommonly | | | known as: | | | PRAVACHOL | | | STOP | | | taking | | | these | | | medications | | | dilTIAZem | | | CD 24 hour | | | release | | | 240 mg | | | [id number] | | | y known as: | | | CARDIZEM | | | CD Where | | | to Get Your | | | | | | Medications | | | These | | | medications | | | were sent | | | to [facility] | | | [facility] | | | [phone] | | [address] | | | [place] | | | [place] | | | [phone] | | | [phone] | | | [phone] | | | [phone] | | | [address], | | | [place] | | | [place] [address] | | | Hours: | | | 9AM-7PM MON | | | - FRI / | | | 9AM-6PM SAT | | | / CLOSED | | | SUN Phone: | | | | | | [phone] | | | 9 | | | acetaminoph | | | en 325 mg | | | Tab | | | amoxicillin | | | -clavulanat | | | e 500-125 | | | mg Tab | | | polyethylen | | | e glycol 17 | | | gram | | | Pwpk | | | simethicone | | | chew 80 mg | | | Chew | | | Allergies: | | | Allergies | | | Allergen | | | Reactions | | | | | | Aromatic | | | Dyspnea | | | | | | Budesonide- | | | Formoterol | | | Dyspnea | | | "I can't | | | breathe | | | when I use | | | it." | | | | | | Fluticasone | | | -Salmeterol | | | Dyspnea | | | "I can't | | | breathe | | | when I use | | | it." | | | | | | Eucalyptus | | | Dyspnea | | | | | | Fluticasone | | | Dyspnea | | | | | | Hydrochloro | | | thiazide | | | Rash Code | | | Status: | | | FullPOLST | | | completed: | | | noAdditiona | | | l | | | Instruction | | | s:Condition | | | on | | | Discharge | | | Good Diet | | | Regular | | | Regular | | | diet- There | | | are no | | | restriction | | | s to your | | | diet. You | | | may eat or | | | drink | | | whatever | | | you prefer, | | | though | | | healthy | | | food | | | choices are | | | | | | recommended | | | . Regular | | | diet- There | | | are no | | | restriction | | | s on the | | | foods in | | | your diet. | | | Please | | | restrict | | | the texture | | | and fluid | | | consistency | | | as | | | follows.Act | | | ivity | | | Weight-bear | | | ing as | | | tolerated: | | | It's up to | | | you - you | | | can put 50 | | | to 100% of | | | the body | | | weight on | | | the | | | affected | | | leg. The | | | amount | | | tolerated | | | may vary | | | according | | | to the | | | circumstanc | | | es. Who To | | | Call For | | | Problems | | | HOW TO | | | REACH YOUR | | | MEDICINE | | | TEAM WITH | | | QUESTIONS, | | | CONCERNS, | | | OR NEW | | | SYMPTOMS: | | | Thank you | | | for | | | entrusting | | | your care | | | to [facility] | | | Internal | | | Medicine. | | | If you have | | | any | | | problems or | | | concerns | | | before you | | | are able to | | | follow up | | | with your | | | Primary | | | Care | | | Provider, | | | please call | | | [phone] | | | [phone] | | | and ask the | | | glost kiln operator | | | to page the | | | attending | | | physician, | | | Vic A | | | Jovanny, | | | MD, who | | | was caring | | | for you at | | | discharge. | | | If that | | | physician | | | is not | | | available, | | | ask the | | | glost kiln operator to | | | page the | | | physician | | | disaster response director for | | | the | | | Medical | | | Teaching | | | Service.Enrike | | | l us right | | | away if any | | | of the | | | following | | | occur:Recur | | | rent | | | abdominal | | | painShaking | | | chills or | | | night | | | sweatsOther | | | Discharge | | | Orders and | | | Instruction | | | s You will | | | be called | | | by the [facility] | | | GI service | | | within the | | | next week | | | to schedule | | | a repeat | | | appointment | | | for ERCP | | | and | | | possible | | | stent | | | removal. | | | Home Health | | | Referral | | | after | | | Hospitaliza | | | tion | | | Comments: I | | | certify | | | that this | | | patient is | | | under my | | | care and | | | that I, or | | | Nurse | | | Practitione | | | r or | | | Physician | | | Project Crew Worker | | | working | | | with me, | | | had a face | | | to face | | | encounter | | | with this | | | patient on | | | 06/30/2017On | | | behalf of | | | Attending | | | Physician: | | | Vic A | | | Jovanny, | | | MDI am | | | ordering | | | and certify | | | that the | | | following | | | services | | | are | | | medically | | | necessary | | | home health | | | services | | | Home Health | | | Physical | | | Therapy | | | Evaluate | | | and Treat | | | I certify | | | that the | | | patient is | | | homebound | | | based on | | | the | | | following | | | clinical | | | findings | | | Post-hospit | | | al | | | weakness, | | | decreased | | | strength | | | and | | | endurance, | | | and tires | | | easily with | | | minimal | | | exertion | | | Follow | | | Up:Schedule | | | the | | | following | | | appointment | | | (s) when | | | you get | | | home | | | DARYL | | | MARIER MD | | | . | | | Specialty: | | | Internal | | | MedicineCon | | | tact | | | information | | | [place] | | | INTERNAL | | | [id number] | | | [address] | | | [place] | | | [place] | | | [address] | | | [place] | | | [phone] | | [phone] | | | Discharge | | | Physical | | | Exam:Last | | | 24 hour | | | min/maxTemp | | | : 36.6 C | | | (97.9 F) | | | Temp Min: | | | 36.6 C | | | (97.9 F) | | | Max: 37 | | | C (98.6 | | | F) Pulse: | | | 65 (taken | | | manually) | | | Pulse Min: | | | 54 Max: | | | 138 Resp: | | | 18 Resp | | | Min: 17 | | | Max: 18 BP: | | | (!) 153/99 | | | BP Min: | | | 134/103 | | | Max: | | | 179/114 | | | SpO2: 94 % | | | SpO2 Min: | | | 92 % Max: | | | 96 % Body | | | mass index | | | is 27.99 | | | kg/m . | | | General: | | | well | | | appearing | | | elderly | | | MHEENT/Neck | | | : JVP 2 cm | | | above | | | clavical at | | | 45 | | | degreesCard | | | iovascular: | | | RRR no | | | MRGPulmonar | | | y: | | | breathing | | | comfortably | | | on | | | RAAbdominal | | | : minimally | | | ttp | | | diffuselySk | | | in: aged | | | with | | | scattered | | | sun | | | spotsNeuro: | | | | | | Non-focalPs | | | ych: AOx3; | | | bright | | | affectLines | | | : | | | noneSAMUEL | | | M | | | ALFA, | | | MD | +---+ + +--------+ +---+ +------+ | 06/26/ | Document-Sc | | Kane Martin | | | 2018 | anned | | | | +--------+ +---+ +------+ | 06/26/ | Anesthesia | | Bob Noble, | | | 2018 | Event | | MD | | +--------+ +---+ +------+ | 06/26/ | Procedure | | | | | 2018 | Pass | | | | +--------+ +---+ +------+ | 06/26/ | Surgery | | Lyla Maldonado | ERCP | | 2018 | | | MD Rashida | | +--------+ +---+ +------+ | 06/26/ | Inside | | Paulette Mckenzie MD | | | 2018 | Referral | | | | | | Order | | | | +--------+ +---+ +------+ from Last 3 Months Social History + +-------+ +--------+------+ | Tobacco [...] Filed Vital Signs + + + + | Vital Sign | Reading | Time Taken | + + + + | Blood Pressure | 153/99 | 06/30/2017 2:05 PM PST | + + + + | Pulse | 65 | 06/30/2017 2:05 PM PST | + + + + | Temperature | 36.6 C (97.9 F) | 06/30/2017 2:03 PM PST | + + + + | Respiratory Rate | 18 | 06/29/2017 11:33 PM PST | + + + + | Oxygen Saturation | 94% | 06/30/2017 2:05 PM PST | + + + + | Inhaled Oxygen | - | - | | Concentration | | | + + + + | Weight | 86 kg (189 lb 9.5 | 06/30/2017 6:03 AM PST | | | oz) | | + + + + | Height | 175.3 cm (5' 9.02") | 06/27/2017 7:12 AM PST | + + + + | Body Mass Index | 27.99 | 06/30/2017 6:03 AM PST | + + + + Plan of Treatment + + + + + | Health Maintenance | Due Date | Last Done | Comments | + + + + + | INFLUENZA VACCINE | | | | | (FLU SHOT) | 7 | | | + + + + + Procedures + +--------+ + + + | Procedure Name | Priori | Date/Time | Associated Diagnosis | Comments | | | ty | | | | + +--------+ + + + | ERCP | Routin | 06/27/2017 | Dyspnea, | Results for this | | | e | 6:38 AM | unspecified type | procedure are in the | | | | PST | | results section. | + +--------+ + + + | IP ENDOSCOPY | Routin | 06/27/2017 | | Results for this | | AFTERHOURS | e | 6:38 AM | | procedure are in the | | | | PST | | results section. | + +--------+ + + + | GI LAB ERCP IN OR | Electi | 06/26/2017 | cholangitis | | | | ve | 1:45 PM | | | | | Surgic | PST | | | | | al | | | | + +--------+ + + + from Last 3 Months Results CBC (HEMOGRAM) ONLY (06/29/2017 3:24 AM)Only the most recent of 4 results within the time period is included. + + + + | Component | Value | Ref Range | + + + + | WHITE CELL COUNT | 8.69 | 3.50 - 10.80 K/cu mm | + + + + | RED CELL COUNT | 3.89 (L) | 4.50 - 6.00 M/cu mm | + + + + | HEMOGLOBIN | 11.7 (L) | 13.5 - 17.5 g/dL | + + + + | HEMATOCRIT | 36.0 (L) | 41.0 - 53.0 % | + + + + | MCV | 92.5 | 80.0 - 96.0 fL | + + + + | MCHC | 32.5 | 33.0 - 35.5 g/dL | + + + + | RDW SD | 49.5 (H) | 35.1 - 46.3 fL | + + + + | PLATELET COUNT | 134 (L) | 150 - 400 K/cu mm | + + + + | MPV | 12.3 | 9.7 - 12.3 fL | + + + + | NRBC% | 0.0 | 0.0 - 0.3 % | + + + + | NRBC# | 0.00 | 0.00 - 0.02 K/cu mm | + + + + + + + | Specimen | Performing Laboratory | + + + | Blood | [facility], [address] [address] [place] [address] | | | [place] [id number] | + + + COMPLETE METABOLIC SET (NA,K,CL,CO2,BUN,CREAT,GLUC,CA,AST,ALT,BILI TOTAL,ALK PHOS,ALB,PROT TOTAL) (06/29/2017 3:24 AM)Only the most recent of 5 results within the time period is incl uded. + +---------+ + | Component | Value | Ref Range | + +---------+ + | GLUCOSE, PLASMA | 91 | 70 - 99 mg/dL | | (LAB) | | | + +---------+ + | BUN, PLASMA (LAB) | 18 | 6 - 20 mg/dL | + +---------+ + | CREATININE PLASMA | 0.98 | 0.70 - 1.30 mg/dL | | (LAB) | | | + +---------+ + | EGFR - | >60 | >60 mL/min | | ECUADOREAN | | | + +---------+ + | EGFR NON | >60 | >60 mL/min | | -ECUADOREAN | | | + +---------+ + | SODIUM, PLASMA (LAB) | 140 | 136 - 145 mmol/L | + +---------+ + | POTASSIUM, PLASMA | 4.2 | 3.4 - 5.0 mmol/L | | (LAB) | | | + +---------+ + | CHLORIDE, PLASMA | 104 | 97 - 108 mmol/L | | (LAB) | | | + +---------+ + | TOTAL CO2, PLASMA | 31 | 21 - 32 mmol/L | | (LAB) | | | + +---------+ + | CALCIUM, PLASMA | 7.8 (L) | 8.6 - 10.2 mg/dL | | (LAB) | | | + +---------+ + | CALCIUM(ALB | 9.0 | 8.6 - 10.2 mg/dL | | CORRECTED) | | | + +---------+ + | BILIRUBIN TOTAL | 1.2 | 0.3 - 1.2 mg/dL | + +---------+ + | TOTAL PROTEIN, | 5.1 (L) | 6.4 - 8.2 g/dL | | PLASMA (LAB) | | | + +---------+ + | ALBUMIN, PLASMA | 2.5 (L) | 3.5 - 4.7 g/dL | | (LAB) | | | + +---------+ + | ALK PHOS | 104 | 56 - 119 U/L | + +---------+ + | AST(SGOT) | 29 | <=41 U/L | + +---------+ + | ALT (SGPT) | 96 (H) | <=60 U/L | + +---------+ + | ANION GAP | 5 | 4 - 11 mmol/L | + +---------+ + | ANION GAP(ALB | 8 | 4 - 11 mmol/L | | CORRECTED) | | | + +---------+ + | POTASSIUM CMNT | No Hemo | | + +---------+ + | BILI T CMNT | No Hemo | | + +---------+ + | AST CMNT | No Hemo | | + +---------+ + + + + | Specimen | Performing Laboratory | + + + | Blood | [facility], [facility] [address] | | | [place] [id number] | + + + + + | Narrative | + + | Adult glucose reference range change effective 7-12-17. GFR is estimated using the | | MDRD equation recommended by the National Kidney Disease Education Program. | | Estimated GFR Interpretive Information: <60 mL/min/1.73 sq | | m Chronic Kidney Disease <15 mL/min/1.73 sq | | m Kidney Failure Estimated GFR greater that 60 mL/min/1.73 | | sq m is of limited clinical value. The MDRD equation is not valid in the following | | situations: - Patients under 18 years of age - Severe malnutrition or obesity - | | Vegetarian diet - Rapidly changing kidney function | + + CBC ONLY (06/29/2017 3:24 AM)Only the most recent of 4 results within the time period is i ncluded. + + + | Specimen | Performing Laboratory | + + + | Blood | | + + + + + | Narrative | + + | The following orders were created for panel order CBC ONLY. | | Procedure | | Abnormality Status | | --------- | | ------ CBC (HEMOGRAM) | | ONLY[[id number]] Abnormal Final | | result Please view results for these tests on the | | individual orders. | + + MAGNESIUM, PLASMA (06/29/2017 3:24 AM)Only the most recent of 4 results within the time karen mo is included. + +-------+ + | Component | Value | Ref Range | + +-------+ + | MAGNESIUM,PLASMA | 1.9 | 1.6 - 2.6 mg/dL | + +-------+ + + + + | Specimen | Performing Laboratory | + + + | Blood | [facility], [address] [address] | | | [place], [place] [address] | + + + + + | Narrative | + + | Reference range change effective 01/02/17. | + + LIPASE, PLASMA (06/28/2017 11:03 PM)Only the most recent of 2 results within the time janet segura is included. + +--------+ + | Component | Value | Ref Range | + +--------+ + | LIPASE (LAB) | 62 (L) | 152 - 353 U/L | + +--------+ + + + + | Specimen | Performing Laboratory | + + + | Blood | [facility], [address] [address] | | | [place] [address] | + + + US ABDOMEN LIMITED (06/28/2017 11:30 AM) + + + | Specimen | Performing Laboratory | + + + | | [facility] VOICE RECOGNITION | + + + + + | Narrative | + + | EXAM: US ABDOMEN LIMT HISTORY: Worsening abdominal pain status post ERCP | | sphincterotomy and common hepatic duct stent. Pt had been admitted to MICU for septic | | shock due to acute cholangitis now s/p sphincterotomy and CHD stent. COMPARISON: | | ERCP 06/26/2017 and outside abdomen ultrasound 06/26/2017 TECHNIQUE: Limited abdominal | | ultrasound performed. FINDINGS: Liver: The echotexture is homogeneous. No focal | | lesion. Biliary: The gallbladder is obscured by bowel gas. No biliary dilatation. | | Partially visualized air within the common duct without definite visualization of the | | stent sonographically. Common duct measures up to 3 mm in diameter. Other: Small and | | free fluid in the right upper quadrant near the falciform. IMPRESSION: | | Gallbladder obscured by bowel gas and not visualized sonographically. No biliary duct | | dilation. Air visualized within the common duct status post ERCP. Common duct stent not | | visualized on this study. No ascites. No explanation for pain. Some free fluid | | adjacent to the falciform ligament. Consider CT. I have personally reviewed the | | images and, if necessary, edited the report. I agree with the report as now | | presented. | + + + + | Procedure Note | + + | Service Account, Radiant Res In Interface - 06/28/2017 5:02 PM PST EXAM: US ABDOMEN | | LIMTHISTORY: Worsening abdominal pain status post ERCP sphincterotomy and common | | hepatic duct stent. Pt had been admitted to MICU for septic shock due to acute | | cholangitis now s/p sphincterotomy and CHD stent.COMPARISON: ERCP 06/26/2017 and outside | | abdomen ultrasound 06/26/2017TECHNIQUE: Limited abdominal ultrasound | | performed.FINDINGS:Liver: The echotexture is homogeneous. No focal lesion.Biliary: The | | gallbladder is obscured by bowel gas. No biliary dilatation. Partially visualized air | | within the common duct without definite visualization of the stent sonographically. | | Common duct measures up to 3 mm in diameter.Other: Small and free fluid in the right | | upper quadrant near the falciform.IMPRESSION:Gallbladder obscured by bowel gas and not | | visualized sonographically. No biliary duct dilation. Air visualized within the common | | duct status post ERCP. Common duct stent not visualized on this study. No ascites.No | | explanation for pain. Some free fluid adjacent to the falciform ligament. Consider CT.I | | have personally reviewed the images and, if necessary, edited the report. I agree with | | the report as now presented. | |IMPRESSION: | | | |Gallbladder obscured by bowel gas and not visualized sonographically. No biliary duct dilat ion. Air visualized within the common duct status post ERCP. Common duct stent not visualize d on this study. No ascites. | | | |No explanation for pain. Some free fluid adjacent to the falciform ligament. Consider CT. | | | | | |I have personally reviewed the images and, if necessary, edited the report. I agree with t he report as now presented. | + + CAPILLARY BLOOD GLUCOSE (NO CHG), POC (06/28/2017 6:32 AM)Only the most recent of 7 result s within the time period is included. + +---------+ + | Component | Value | Ref Range | + +---------+ + | BLOOD GLUCOSE, POC | 152 (H) | 70 - 99 mg/dL | + +---------+ + + + + | Specimen | Performing Laboratory | + + + | | [facility] [address] | | | [place] [address] | + + + X-RAY CHEST 2 VIEW (06/27/2017 9:30 PM) + + + | Specimen | Performing Laboratory | + + + | | [facility] VOICE RECOGNITION | + + + + + | Narrative | + + | EXAM: CHEST 2 VIEWS HISTORY: Suspected aspiration. Hypoxic respiratory failure | | post sphincterotomy with acute cholangitis COMPARISON: 06/26/17 FINDINGS: | | Interval removal of internal jugular central line, enteric tube, and endotracheal tube. | | The cardiomediastinal silhouette is stable. Minimal new right lower lobe mild | | peribronchovascular groundglass. Mild airway thickening. Persistent flattening of the | | diaphragms consistent with chronic obstructive pulmonary physiology. No pleural | | effusion. No pneumothorax. IMPRESSION: New minimal patchy ground glass in the | | right lower lobe, consider aspiration in the appropriate clinical setting. Findings | | of COPD redemonstrated. I have personally reviewed the images and, if necessary, | | edited the report. I agree with the report as now presented. | + + + + | Procedure Note | + + | Service Account, [employer] Res In Interface - 06/28/2017 10:17 AM PST EXAM: CHEST 2 | | VIEWS HISTORY: Suspected aspiration. Hypoxic respiratory failure post sphincterotomy | | with acute cholangitisCOMPARISON: 06/26/17INDINGS: Interval removal of internal jugular | | central line, enteric tube, and endotracheal tube. The cardiomediastinal silhouette is | | stable. Minimal new right lower lobe mild peribronchovascular groundglass. Mild airway | | thickening. Persistent flattening of the diaphragms consistent with chronic obstructive | | pulmonary physiology. No pleural effusion. No pneumothorax.IMPRESSION: New minimal | | patchy ground glass in the right lower lobe, consider aspiration in the appropriate | | clinical setting.Findings of COPD redemonstrated.I have personally reviewed the images | | and, if necessary, edited the report. I agree with the report as now presented. | | | |IMPRESSION: | | | |New minimal patchy ground glass in the right lower lobe, consider aspiration in the appropr iate clinical setting. | | | |Findings of COPD redemonstrated. | | | | | |I have personally reviewed the images and, if necessary, edited the report. I agree with t he report as now presented. | + + BASIC METABOLIC SET (NA, K, CL, TCO2, BUN, CR, GLU, CA) (06/27/2017 1:39 PM) + +---------+ + | Component | Value | Ref Range | + +---------+ + | GLUCOSE, PLASMA | 144 (H) | 70 - 99 mg/dL | | (LAB) | | | + +---------+ + | BUN, PLASMA (LAB) | 27 (H) | 6 - 20 mg/dL | + +---------+ + | CREATININE PLASMA | 0.97 | 0.70 - 1.30 mg/dL | | (LAB) | | | + +---------+ + | EGFR - | >60 | >60 mL/min | | ECUADOREAN | | | + +---------+ + | EGFR NON | >60 | >60 mL/min | | -ECUADOREAN | | | + +---------+ + | SODIUM, PLASMA (LAB) | 141 | 136 - 145 mmol/L | + +---------+ + | POTASSIUM, PLASMA | 4.5 | 3.4 - 5.0 mmol/L | | (LAB) | | | + +---------+ + | CHLORIDE, PLASMA | 109 (H) | 97 - 108 mmol/L | | (LAB) | | | + +---------+ + | TOTAL CO2, PLASMA | 25 | 21 - 32 mmol/L | | (LAB) | | | + +---------+ + | CALCIUM, PLASMA | 8.0 (L) | 8.6 - 10.2 mg/dL | | (LAB) | | | + +---------+ + | ANION GAP | 7 | 4 - 11 mmol/L | + +---------+ + | POTASSIUM CMNT | No Hemo | | + +---------+ + + + + | Specimen | Performing Laboratory | + + + | Blood | [facility], [address] [address] | | | [place] [address] | + + + + + | Narrative | + + | Adult glucose reference range change effective 7-12-17. GFR is estimated using the | | MDRD equation recommended by the National Kidney Disease Education Program. | | Estimated GFR Interpretive Information: <60 mL/min/1.73 sq | | m Chronic Kidney Disease <15 mL/min/1.73 sq | | m Kidney Failure Estimated GFR greater that 60 mL/min/1.73 | | sq m is of limited clinical value. The MDRD equation is not valid in the following | | situations: - Patients under 18 years of age - Severe malnutrition or obesity - | | Vegetarian diet - Rapidly changing kidney function | + + SODIUM TOTAL, URINE (06/27/2017 9:43 AM) + + + + | Component | Value | Ref Range | + + + + | SODIUM, URINE | 1 (L) | 40 - 220 mmol/24hrs | + + + + | SODIUM CONC URINE | 37 | mmol/L | + + + + | URINE VOLUME | 30Comment: NA | mL | + + + + | URINE INTERVAL | RandomComment: spot check | | + + + + | URINE VOLUME | SpotComment: NA | | + + + + + + + | Specimen | Performing Laboratory | + + + | Urine | [facility], CORE [address] | | | [place] [address] | + + + + + | Narrative | + + | Normal values based on 24 hour collection interval. Patient results are calculated | | from actual collection interval and volume. | + + CREATININE, URINE (06/27/2017 9:43 AM) + + + + | Component | Value | Ref Range | + + + + | CREATININE, URINE | 0.06 (L) | 0.80 - 1.80 g/col. | | | | time | + + + + | CREATININE CONC UR | 185.00 | mg/dL | + + + + | URINE VOLUME | 30Comment: NA | mL | + + + + | URINE INTERVAL | RandomComment: spot check | | + + + + | URINE VOLUME | SpotComment: NA | | + + + + + + + | Specimen | Performing Laboratory | + + + | Urine | [facility] [address] | | | [place] [address] | + + + + + | Narrative | + + | Normal values based on 24 hour collection interval. Patient results are calculated | | from actual collection interval and volume. | + + CULTURE, BLOOD BACTI & YEAST ROSENDAMARYCARMEN (06/27/2017 8:34 AM)Only the most recent of 4 results wi thin the time period is included. + + + + | Component | Value | Ref Range | + + + + | CULTURE RESULT | Final Report:No Bacteria or Yeast isolated | | | | at 5 days. | | + + + + + + + | Specimen | Performing Laboratory | + + + | Blood | [facility] [address] | | | [place] [address] | + + + CULTURE, BLOOD BACTI & YEAST (06/27/2017 8:34 AM)Only the most recent of 4 results within the time period is included. + + + | Specimen | Performing Laboratory | + + + | Blood | | + + + + + | Narrative | + + | The following orders were created for panel order CULTURE, BLOOD BACTI & YEAST. | | Procedure | | Abnormality Status | | --------- | | ------ CULTURE, BLOOD | | BACTI & Y...[[id number]] Final | | result Please view results for these tests on the | | individual orders. | + + UA, DIPSTICK ONLY (06/27/2017 7:49 AM) + + + + | Component | Value | Ref Range | + + + + | COLOR(UR) | Subha | | + + + + | APPEARANCE | Sl.Cloudy | | + + + + | GLUCOSE(UR) | Negative | Negative, 50.0 mg/dL | + + + + | PROTEIN(LAB) | 30.0 | Negative, 30.0 mg/dL | + + + + | BILIRUBIN | Moderate (A) | Negative | + + + + | UROBILINOGEN | >=4.0 (A) | <2.0 mg/dL | + + + + | PH(UR) | 5.0 | 5.0 - 8.0 | + + + + | BLOOD | Negative | Negative | + + + + | KETONES | Negative | Negative mg/dL | + + + + | NITRITES | Negative | Negative | + + + + | LEUKOCYTE ESTERASE | Negative | Negative | + + + + | SPECIFIC GRAVITY | 1.040 (H)Comment: Specific [place] | 1.005 - 1.030 | | | performed by refractometry | | + + + + + + + | Specimen | Performing Laboratory | + + + | Urine - Bladder | [facility] [address] | | | [place] [address] | + + + + + | Narrative | + + | Positive bilirubin dipstick results are not confirmed by an alternate method. | | Suggest serum total bilirubin and/or liver function panel if clinically indicated. | + + URINE, MICROSCOPIC EXAM (06/27/2017 7:49 AM) + +---------+ + | Component | Value | Ref Range | + +---------+ + | RED CELLS | 4 (H) | 0 - 3 /hpf | + +---------+ + | WHITE CELLS | 4 | 0 - 5 /hpf | + +---------+ + | BACTERIA | None | None /hpf | + +---------+ + | YEAST (LAB) | None | None /hpf | + +---------+ + | SQUAMOUS EPITHELIAL | Few (A) | None /hpf | + +---------+ + | MUCOUS | None | None /hpf | + +---------+ + | TRICHOMONAS | None | None /hpf | + +---------+ + | NON-SQUAMOUS EPITH | Few (A) | None /hpf | + +---------+ + | HYALINE CASTS | 0 | 0 - 2 /lpf | + +---------+ + | GRANULAR CASTS | 0 | 0 - 2 /lpf | + +---------+ + | CELLULAR CASTS | 0 | <=0 /lpf | + +---------+ + | TRIPLE P04 CRYSTALS | None | None /hpf | + +---------+ + | CALCIUM OXALATE CARA | None | None /hpf | + +---------+ + | URIC ACID CRYSTALS | None | None /hpf | + +---------+ + | AMORPHOUS CRYSTALS | None | None /hpf | + +---------+ + + + + | Specimen | Performing Laboratory | + + + | Urine - Bladder | [facility], [address] | | | [place] [address] | + + + ERCP (06/27/2017 6:38 AM) + + + | Specimen | Performing Laboratory | + + + | | [facility] | + + + + + | Narrative | + + | Procedure Date: 06/27/2017 Patient Name: William Burns Order #: | | [id number] Date of : 1935 CSN: [id number] Admit Type: Inpatient Room: SOR | | Procedure: ERCP Indications: For therapy of | | ascending cholangitis; 82 yo M with sepsis, | | elevated LFTs and US showing mary dil and 1.3 cm | | CBD Providers: LYLA Mackay | | MD ERICA (Doctor), JORDY SOLANO, | | RN (Nurse), ESTELA DAMIAN, RN (Data Processing Systems Project Planner) Referring MD: Requesting | | Provider: Medicines: General Anesthesia, Indomethacin 100 mg [place] | | Complications: No immediate complications. Procedure: [...] procedure. The Olympus TJF-Q180V Duodenoscope | | #[id number] was introduced through the mouth, | | and advanced to the duodenum and used to | | inject contrast into the bile duct. The ERCP | | was accomplished without difficulty. The | | patient tolerated the procedure well. Estimated Blood Loss: Estimated blood | | loss: none. Findings: urgent SOR case for ICU patient with acute cholangitis. | | The senior linux systems engineer film was normal. The esophagus was successfully [...] SOR, images were not | | available LYLA MALDONADO MD 06/27/2017 6:48:17 AM Number of Addenda: 0 Note | | Initiated On: 06/27/2017 6:38 AM CC Letter to: DARYL MARCH MD | + + IP ENDOSCOPY AFTERHOURS (06/27/2017 6:38 AM) + + + | Specimen | Performing Laboratory | + + + | | [facility] | + + + + + | Narrative | + + | Procedure Date: 06/27/2017 Patient Name: William Burns Order #: | | [id number] Date of : 1935 CSN: [id number] Admit Type: Inpatient Room: SOR | | Procedure: ERCP Indications: For therapy of | | ascending cholangitis; 82 yo M with sepsis, | | elevated LFTs and US showing mary dil and 1.3 cm | | CBD Providers: LYLA Mackay | | MD ERICA (Doctor), JORDY SOLANO, | | RN (Nurse), ESTELA DAMIAN RN (Data Processing Systems Project Planner) Referring MD: Requesting | | Provider: Medicines: General Anesthesia, Indomethacin 100 mg [place] | | Complications: No immediate complications. Procedure: [...] procedure. The Olympus TJF-Q180V Duodenoscope | | #[id number] was introduced through the mouth, | | and advanced to the duodenum and used to | | inject contrast into the bile duct. The ERCP | | was accomplished without difficulty. The | | patient tolerated the procedure well. Estimated Blood Loss: Estimated blood | | loss: none. Findings: urgent SOR case for ICU patient with acute cholangitis. | | The senior linux systems engineer film was normal. The esophagus was successfully [...] remove | | stent and clear duct LYLA MALDONADO MD | | 06/27/2017 6:48:17 AM Number of Addenda: 0 Note Initiated On: 06/27/2017 6:38 AM CC | | Letter to: DARYL MARCH MD | + + CO-OXIMETER PANEL, BLOOD (06/27/2017 3:40 AM) + + + + | Component | Value | Ref Range | + + + + | TOTAL HEMOGLOBIN | 12.2 (L) | 13.5 - 17.5 g/dL | + + + + | OXYHEMOGLOBIN | 74.2 (L) | 95.0 - 98.0 % | + + + + | CARBOXYHEMOGLOBIN | 1.1 | <1.6 % | + + + + | METHEMOGLOBIN | <1.0 | <1.5 % | + + + + | OXYGEN SAT, RODDY | 75.6 (L) | 92.0 - 98.0 % | + + + + | DEOXYHEMOGLOBIN | 24.0 | % | + + + + + + + | Specimen | Performing Laboratory | + + + | Blood | [facility] [address] | | | [place] [address] | + + + + + | Narrative | + + | Carboxyhemoglobin ranges Nonsmoker: <1.6% | | Smokers (1-2 packs/day): 4-5% Smokers (>2 packs/day): 8-9% | + + 12 LEAD ECG (06/27/2017 12:32 AM)Only the most recent of 4 results within the time period i s included. + + + + | Component | Value | Ref Range | + + + + | VENTRICULAR RATE | 58 | bpm | + + + + | ATRIAL RATE | 0 | ms | + + + + | P-R INTERVAL | 214 | ms | + + + + | P AXIS | -9 | deg | + + + + | QRS DURATION | 119 | ms | + + + + | QT | 500 | ms | + + + + | QTCB | 492 | ms | + + + + | R AXIS | 65 | deg | + + + + | T AXIS | 46 | deg | + + + + | ECG IMPRESSION | Sinus bradycardia | | + + + + | ECG IMPRESSION | Borderline prolonged TX interval | | + + + + | ECG IMPRESSION | Incomplete right bundle branch block | | + + + + | ECG IMPRESSION | Low voltage, extremity and precordial leads | | + + + + | ECG IMPRESSION | Borderline prolonged QT interval- ABNORMAL | | | | ECG - | | + + + + | ECG IMPRESSION | Electronically signed by: FRANKO ROWELL | | | | 06-28-2017 20:53:58 | | + + + + + + + | Specimen | Performing Laboratory | + + + | | [facility] [address] | | | [place] [address] | + + + OUTSIDE BODY - READ REQUEST (06/27/2017) + + + | Specimen | Performing Laboratory | + + + | | [facility] VOICE RECOGNITION | + + + + + | Narrative | + + | EXAM: Professional interpretation only of ultrasound abdomen limited performed at | | outside institution DATE OF INTERPRETATION REQUEST: 06/27/17 DATE OF IMAGE | | ACQUISITION: 06/26/17 HISTORY: Abdominal pain. Metastatic renal cell carcinoma | | COMPARISON: None available TECHNIQUE: Ultrasound of the right upper quadrant was | | performed at an outside institution. Number of images: 59 FINDINGS: LIVER: Left | | lobe is enlarged and the surface is nodular, with widened fissures and enlarged caudate, | | concerning for cirrhosis. No focal liver lesion is seen. The main portal vein is patent | | with antegrade flow. BILIARY: Gallbladder is distended measuring up to 12.8 cm in | | length. There is diffuse gallbladder wall thickening and some pericholecystic fluid. No | | definite stones are seen but there is some sludge seen. Sonographic Keita's sign is not | | documented on these images it is uncertain. The common bile duct measures up to 9 mm. | | There is mild intrahepatic biliary dilation as well. The level of the pancreatic head | | there is an apparent filling defect within the common duct measuring up to 17 mm in | | length concern for choledocholithiasis. PANCREAS: Limited visualized portions of the | | pancreatic head show are unremarkable. The body and tail of the pancreas are not well | | seen. Other: No free fluid in the right upper quadrant. IMPRESSION: 1. | | Gallbladder distention and biliary dilation concerning for distal biliary obstruction | | due to choledocholithiasis. Malignant obstruction is not excluded and pancreatic CT may | | be indicated. 2. Probable cirrhosis. I have personally reviewed the images | | and, if necessary, edited the report. I agree with the report as now presented. | + + + --------+ | Procedure Note | + --------+ | Service Account, ScoopStake In Interface - 06/28/2017 9:20 AM PST EXAM: | | Professional interpretation only of ultrasound abdomen limited performed at outside | | institutionDATE OF INTERPRETATION REQUEST: 06/27/17DATE OF IMAGE ACQUISITION: | | 06/26/17HISTORY: Abdominal pain. Metastatic renal cell carcinomaCOMPARISON: None | | availableTECHNIQUE: Ultrasound of the right upper quadrant was performed at an outside | | institution.Number of images: 59FINDINGS:LIVER: Left lobe is enlarged and the surface is | | nodular, with widened fissures and enlarged caudate, concerning for cirrhosis. No focal | | liver lesion is seen. The main portal vein is patent with antegrade flow.BILIARY: | | Gallbladder is distended measuring up to 12.8 cm in length. There is diffuse gallbladder | | wall thickening and some pericholecystic fluid. No definite stones are seen but there | | is some sludge seen. Sonographic Keita's sign is not documented on these images it is | | uncertain. The common bile duct measures up to 9 mm. There is mild intrahepatic biliary | | dilation as well. The level of the pancreatic head there is an apparent filling defect | | within the common duct measuring up to 17 mm in length concern for | | choledocholithiasis.PANCREAS: Limited visualized portions of the pancreatic head show | | are unremarkable. The body and tail of the pancreas are not well seen.Other: No free | | fluid in the right upper quadrant.IMPRESSION: 1. Gallbladder distention and biliary | | dilation concerning for distal biliary obstruction due to choledocholithiasis. Malignant | | obstruction is not excluded and pancreatic CT may be indicated.2. Probable cirrhosis.I | | have personally reviewed the images and, if necessary, edited the report. I agree with | | the report as now presented. | |Other: No free fluid in the right upper quadrant. | | | |IMPRESSION: | |1. Gallbladder distention and biliary dilation concerning for distal biliary obstruction du e to choledocholithiasis. Malignant obstruction is not excluded and pancreatic CT may be ind icated. | | | |2. Probable cirrhosis. | | | | | |I have personally reviewed the images and, if necessary, edited the report. I agree with t he report as now presented. | + --------+ BLOOD GASES, ARTERIAL - LAB (06/26/2017 10:13 PM)Only the most recent of 3 results within t he time period is included. + + + + | Component | Value | Ref Range | + + + + | FIO2 ARTERIAL | 0.21Comment: temp 36 | | + + + + | PH ARTERIAL | 7.38 | 7.37 - 7.44 | + + + + | PCO2 ARTERIAL | 40 | 32 - 43 mmHg | + + + + | PO2 ARTERIAL | 78 | 72 - 104 mmHg | + + + + | HCO3 ARTERIAL | 23 | 21 - 28 mmol/L | + + + + | TOTAL CO2 ARTERIAL | 24 | 22 - 28 mmol/L | + + + + | BASE EXCESS ARTERIAL | -1.2 | mmol/L | + + + + | O2 SAT, ARTERIAL | 96.8 | 92.0 - 98.0 % | + + + + | PAO2/FIO2 RATIO | 371 | >300 mmHg | + + + + + + + | Specimen | Performing Laboratory | + + + | Blood | [facility], [address] | | | [place] [address] | + + + X-RAY ABD LTD FEEDING TUBE EVAL (06/26/2017 8:53 PM)Only the most recent of 5 results with in the time period is included. + + + | Specimen | Performing Laboratory | + + + | | [facility] VOICE RECOGNITION | + + + + + | Narrative | + + | EXAM: Single supine view of the abdomen. History: Feeding tube placement. | | Comparison: 06/26/2017 at 11:10 AM IMPRESSION: Wires, leads, and tubing obscure | | portions of the radiograph. Common bile duct stent has been placed. Esophagogastric tube | | extends into the distal stomach, looped upon itself, tip directed proximally in the mid | | stomach. No evidence of bowel obstruction. I have personally reviewed the | | images and, if necessary, edited the report. I agree with the report as now | | presented. | + + + + | Procedure Note | + + | Service Account, Shana Le In Interface - 06/27/2017 9:07 AM PST EXAM: Single | | supine view of the abdomen.History: Feeding tube placement.Comparison: 06/26/2017 at 11:10 | | AMIMPRESSION:Wires, leads, and tubing obscure portions of the radiograph. Common bile | | duct stent has been placed. Esophagogastric tube extends into the distal stomach, looped | | upon itself, tip directed proximally in the mid stomach. No evidence of bowel | | obstruction. I have personally reviewed the images and, if necessary, edited the | | report. I agree with the report as now presented. | | | |Wires, leads, and tubing obscure portions of the radiograph. Common bile duct stent has bee n placed. Esophagogastric tube extends into the distal stomach, looped upon itself, tip dire cted proximally in the mid stomach. | |No evidence of bowel obstruction. | | | | | |I have personally reviewed the images and, if necessary, edited the report. I agree with t he report as now presented. | + + ART LINE (06/26/2017 5:10 PM) + + | Narrative | + + | Reid Romero MD,PhD 06/26/2017 9:12 AM ARTERIAL LINE Performed by: | | REID ROMERO Authorized by: ALISHA MAYNARD ART Line Insertion Procedure Note | | Indications: Beat to beat blood pressure monitoring and Frequent lab draws | | Procedure location: Providers: Attending name: Attending physically present: | | No Resident name: Reid Romero Pre-Procedure Consent: written consent not | | obtained Verbal consent not obtained The procedure was performed in an emergent | | situation Patient identity confirmed per policy: Yes Team Pause: Immediatly prior to | | the procedure a pause per protocol was called. A pause verifies correct patient, | | procedure, equipment, security support analyst and site/side marked as required. CLABSI | | Prevention Bundle: Insertion site: Right Radial Skin preparation: Chloraprep | | Protective barrier: Cap, Mask, Hand scrub, Gloves and Partially draped. Sterile | | Ultrasound Used, Line secured: StatLock and tape Anesthesia Anesthesia: | | none Procedure Details Patient was placed in appropriate position Catheter | | size: 20g Line was secured by StatLock and tape Attempts 1 attempt(s) were | | made. Complications Type: None | + + X-RAY ABDOMEN 1 VIEW (06/26/2017 4:52 PM) + + | Narrative | + + | - At the time of the study, no professional interpretation was requested. - | + + X-RAY FLUOROSCOPY <=1 HOUR (06/26/2017 4:52 PM) + + | Narrative | + + | - At the time of the study, no professional interpretation was requested. - | + + SURGICAL PATHOLOGY (06/26/2017 4:36 PM) + + + + | Component | Value | Ref Range | + + + + | Clinical History | The patient is a 82 year old male with a | | | | history of cholangitis. Underwent ERCP for | | | | release of common bile duct stones. | | + + + + | Final Pathologic | A. Bile duct ampulla, biopsies: Duodenal | | | Diagnosis | and biliary mucosa with focal erosion | | | | Negative for malignancy Case seen by:Sudhakar | | | | MD Will | | | | | | | | Pathology ResidentVenu Fritz MD PhD / | | | | Pathologist My electronic signature | | | | indicates that I have personally reviewed | | | | all diagnostic slides, the gross and/or | | | | microscopic portion of this report and | | | | formulated the final diagnosis. | | + + + + | Gross Description | Received is one specimen in formalin | | | | labeled with the patient's name (initials | | | | FOR) and . A. | | | | Bile duct, Bile duct ampula bxs, labeled | | | | "BILED | | | | | | | | A": Received are 5 fragments of | | | | erythematous mucosal soft tissue each | | | | measuring 0.3 cm. Entirely submitted in | | | | A1.(RML) | | + + + + + + + | Specimen | Performing Laboratory | + + + | Tissue - Bile duct | [facility] DEPARTMENT OF PATHOLOGY [address] | | | [place] [address] | + + + CVL (06/26/2017 4:21 PM) + + | Narrative | + + | Abiodun Rascon MD 06/26/2017 3:22 PM CENTRAL LINE Performed by: ABIODUN RASCON | | Authorized by: ALISHA MAYNARD Central Venous Catheter Insertion Procedure Note | | Pre-Procedure Consent: written consent not obtainedVerbal consent not obtained The | | procedure was performed in an emergent situation Patient identity confirmed per | | policy: Yes Team Pause: Immediatly prior to the procedure a pause per protocol was | | called. A pause verifies correct patient, procedure, equipment, security support analyst and | | site/side marked as required. CLABSI Prevention Bundle: Insertion | | site: Right Internal Jugular vein With catheter tip targeted in | | SVC, see CXR report for confirmation Skin preparation: Chloraprep Protective | | barrier: Cap, Mask, Hand scrub, Gown, Gloves and Full body drape.Sterile | | Ultrasound techniques (sterile gel, and sterile probe cover) used Procedure | | Details Patient was placed in appropriate position The vascular anatomy was identified | | by Ultrasound Guidance. The modified Seldinger technique (a | | tbuslsgz-uwtq-irz-cuekct-anwh-osxs-njqssbr-mxi-csrhwran) was used for vessel | | cannulation. The wire was visualized with ultrasound in the correct target vessel. | | Ultrasound no images saved A non-tunneled Triple lumen (size of 7 Fr) catheter with a | | length of 16 cm was inserted to 15 cm at the skin. All ports aspirated for blood | | and flushed with Saline Sedation/Anesthesia/Analgesia Analgesia: No | | Anesthesia: none with ml Indications: Frequent lab draws, Inadequate peripheral venous | | access and Administration of vasoactive medication Procedure location: 7A | | Providers: Attending name: Attending physically present: Yes Fellow name: Abiodun Rascon | | Monitoring The patients vital signs were monitored by EKG, SaO2 and NIBP during the | | procedure. For details see EMR. Attempts 1 attempt(s) were madeIndications: Frequent | | lab draws, Inadequate peripheral venous access and Administration of vasoactive | | medication | + + TROPONIN I, PLASMA (06/26/2017 3:39 PM)Only the most recent of 2 results within the time p eriod is included. + +-------+ + | Component | Value | Ref Range | + +-------+ + | TROPONIN I | 0.25 | <0.80 ng/mL | + +-------+ + + + + | Specimen | Performing Laboratory | + + + | Blood | [facility], CORE [address] | | | [place] [address] | + + + LACTATE (06/26/2017 3:39 PM) + +-------+ + | Component | Value | Ref Range | + +-------+ + | LACTATE | 1.3 | mmol/L | + +-------+ + + + + | Specimen | Performing Laboratory | + + + | Blood | [facility], CORE [address] | | | [place] [address] | + + + + + | Narrative | + + | Reference Range: Venous blood:0.5 - 2.2 mmol/L Critical >= 4.0 mmol/L | | Arterial blood:0.5 - 1.6 mmol/L Critical >= 4.0 mmol/L | + + CALCIUM, IONIZED, WHOLE BLOOD (06/26/2017 3:39 PM) + + + + | Component | Value | Ref Range | + + + + | RODDY ICA, WHOLE BLD | 1.09 (L) | 1.14 - 1.32 mmol/L | + + + + | PH, WHOLE BLOOD | 7.37 | | + + + + | ICA, CORRECTED TO PH | 1.07 (L) | 1.14 - 1.28 mmol/L | | 7.4 | | | + + + + + + + | Specimen | Performing Laboratory | + + + | Blood | [facility], CORE [address] | | | [place] [address] | + + + VITAMIN D, 25-HYDROXY, SERUM (06/26/2017 2:01 PM) + +---------+ + | Component | Value | Ref Range | + +---------+ + | VITAMIN D 25 HYDROXY | 8.3 (L) | 30 - 80 ng/mL | + +---------+ + + + + | Specimen | Performing Laboratory | + + + | Blood | [facility], CORE [address] [facility] | | | [place] [address] | + + + + + | Narrative | + + | Reference Interval: 0-18years: Deficiency: <20 ng/mL | | Optimum level: >or=20 | | ng/mL >18years: | | Deficiency: <20 ng/mL | | Insufficiency: 20-29 ng/mL Optimum Level: 30-80 ng/mL | | High: 81-150 ng/ml | | Toxic: >150 ng/mL | + + RAINBOW HOLD TUBE - BLUE TOP (06/26/2017 11:53 AM) + + + | Specimen | Performing Laboratory | + + + | Blood | [facility], CORE [address] [facility] | | | [place] [address] | + + + COAGULOPATHY PANEL (INR,APTT,FIBRINOGEN) (06/26/2017 11:13 AM) + + + + | Component | Value | Ref Range | + + + + | INR | 1.34 (H) | 0.90 - 1.20 INR | + + + + | APTT | 32.5 | 26.0 - 36.0 seconds | + + + + | FIBRINOGEN LEVEL | 362 | 200 - 450 mg/dL | + + + + + + + | Specimen | Performing Laboratory | + + + | Blood | [facility], [facility]ORE [address] | | | [place] [address] | + + + + + | Narrative | + + | INR Therapeutic ranges for full anticoagulation: INR for Venous | | Thromboembolism (2.0 - 3.0) INR INR for most patients with | | mech. valves (2.5 - 3.5) INR APTT Therapeutic | | Range: (75 - 120) sec Heparin levels | | of 0.35 - 0.7 U/mL | + + X-RAY CHEST 1 VIEW (06/26/2017 10:02 AM) + + + | Specimen | Performing Laboratory | + + + | | [facility] VOICE RECOGNITION | + + + + + | Narrative | + + | STUDY: CHEST 1 VIEW 06/26/17 09:05:50 COMPARISON: None. HISTORY: Line | | placement. COPD. Anemia. Respiratory difficulty. FINDINGS: Support | | equipment: Intubated patient with ET tube terminating 7 cm above ray. NG tube | | barely extends beyond the GE junction with the side port approximately 7 cm | | proximal. Right IJ central line terminates in the proximal SVC. Lungs: Irregular | | right lung base opacity likely atelectasis. Otherwise, no confluent parenchymal lung | | opacities. Mild infrahilar airways thickening. Pleura: No pleural effusion or | | pneumothorax. Cardiomediastinal: Cardiac size at the upper limits of normal. No | | pulmonary edema. Aortic vascular calcification. Musculoskeletal: No acute osseous | | abnormality. IMPRESSION: 1. ET tube terminates 7 cm above ray. 2. NG | | tube barely extends beyond the GE junction; this could be advanced for more optimal | | positioning. 3. Mild infrahilar airways thickening can be seen with reactive airways | | disease or bronchitis. Right lung base atelectasis. I have personally | | reviewed the images and, if necessary, edited the report. I agree with the report as | | now presented. | + + + + | Procedure Note | + + | Service Account, [employer] In Interface - 06/26/2017 10:12 AM PST STUDY: CHEST 1 | | VIEW 06/26/17 09:05:50COMPARISON: None.HISTORY: Line placement. COPD. Anemia. | | Respiratory difficulty.FINDINGS:Support equipment: Intubated patient with ET tube | | terminating 7 cm above ray. NG tube barely extends beyond the GE junction with the | | side port approximately 7 cm proximal. Right IJ central line terminates in the proximal | | SVC.Lungs: Irregular right lung base opacity likely atelectasis. Otherwise, no | | confluent parenchymal lung opacities. Mild infrahilar airways thickening.Pleura: No | | pleural effusion or pneumothorax.Cardiomediastinal: Cardiac size at the upper limits of | | normal. No pulmonary edema. Aortic vascular calcification.Musculoskeletal: No acute | | osseous abnormality.IMPRESSION:1. ET tube terminates 7 cm above ray.2. NG tube | | barely extends beyond the GE junction; this could be advanced for more optimal | | positioning.3. Mild infrahilar airways thickening can be seen with reactive airways | | disease or bronchitis. Right lung base atelectasis.I have personally reviewed the | | images and, if necessary, edited the report. I agree with the report as now presented. | | | |Musculoskeletal: No acute osseous abnormality. | | | |IMPRESSION: | | | |1. ET tube terminates 7 cm above ray. | |2. NG tube barely extends beyond the GE junction; this could be advanced for more optimal positioning. | |3. Mild infrahilar airways thickening can be seen with reactive airways disease or bronchi tis. Right lung base atelectasis. | | | | | |I have personally reviewed the images and, if necessary, edited the report. I agree with t he report as now presented. | + + CONFIRMATORY ABO/RH (06/26/2017 9:40 AM) + + + + | Component | Value | Ref Range | + + + + | ABO Group | O | | + + + + | Rh Type | Positive | | + + + + + + + | Specimen | Performing Laboratory | + + + | Blood | [facility], [facility]SF[facility]ION MEDICINE [address] [facility] | | | [place] [address] | + + + ANTIBODY SCREEN (06/26/2017 9:40 AM) + + + + | Component | Value | Ref Range | + + + + | Antibody Screen | Negative | | + + + + + + + | Specimen | Performing Laboratory | + + + | Blood | [facility] MEDICINE [address] [facility] | | | [address] [facility] [place] [address] | + + + TYPE AND SCREEN (06/26/2017 9:40 AM) + + + | Specimen | Performing Laboratory | + + + | Blood | | + + + + + | Narrative | + + | The following orders were created for panel order TYPE AND SCREEN. | | Procedure | | Abnormality Status | | --------- | | ------ ABO & RH | | TYPE[[id number]] F | | inal result ANTIBODY | | SCREEN[[id number]] Fin | | al result Please view results for these tests on the | | individual orders. | + + ABO & RH TYPE (06/26/2017 9:40 AM) + + + + | Component | Value | Ref Range | + + + + | ABO Group | O | | + + + + | Rh Type | Positive | | + + + + + + + | Specimen | Performing Laboratory | + + + | Blood | [facility] MEDICINE [address] [facility] [address] | | | [place] [address] | + + + BLOOD CULTURE WORKUP (06/26/2017 9:39 AM)Only the most recent of 2 results within the time period is included. + + + + | Component | Value | Ref Range | + + + + | CULTURE RESULT | Klebsiella oxytoca (A) | | + + + + + + + | Specimen | Performing Laboratory | + + + | Blood - Central line | [facility] [address] [place], [place] | | | [address] | + + + + + | Narrative | + + | Culture Report: Klebsiella oxytoca Refer to culture collected 06/26/17 at 0939 for | | susceptibilities Growth in Aerobic bottle Growth in Anaerobic bottle | + + RBC MORPHOLOGY (06/26/2017 9:39 AM) + + + + | Component | Value | Ref Range | + + + + | ANISOCYTOSIS | 1+(10-25cells/HPF) | | + + + + | MACROCYTOSIS | 1+(10-25cells/HPF) | | + + + + | POLYCHROMASIA | 1+ (<1-2cells/HPF) | | + + + + + + + | Specimen | Performing Laboratory | + + + | Blood | [facility], CORE [address] | | | [place] [address] | + + + CBC AND AUTO DIFF (06/26/2017 9:39 AM) + + + + | Component | Value | Ref Range | + + + + | WHITE CELL COUNT | 18.47 (H) | 3.50 - 10.80 K/cu mm | + + + + | RED CELL COUNT | 4.11 (L) | 4.50 - 6.00 M/cu mm | + + + + | HEMOGLOBIN | 12.3 (L) | 13.5 - 17.5 g/dL | + + + + | HEMATOCRIT | 37.7 (L) | 41.0 - 53.0 % | + + + + | MCV | 91.7 | 80.0 - 96.0 fL | + + + + | MCHC | 32.6 | 33.0 - 35.5 g/dL | + + + + | RDW SD | 48.4 (H) | 35.1 - 46.3 fL | + + + + | PLATELET COUNT | 143 (L) | 150 - 400 K/cu mm | + + + + | MPV | 11.6 | 9.7 - 12.3 fL | + + + + | NRBC% | 0.0 | 0.0 - 0.3 % | + + + + | NRBC# | 0.00 | 0.00 - 0.02 K/cu mm | + + + + + + + | Specimen | Performing Laboratory | + + + | Blood | [facility], [facility]ORE [address] [facility] | | | [place] [address] | + + + MANUAL DIFFERENTIAL (06/26/2017 9:39 AM) + + + + | Component | Value | Ref Range | + + + + | NEUTROPHIL % | 96.5 (H) | 50.0 - 70.0 % | + + + + | LYMPHOCYTE % | 1.8 (L) | 18.0 - 42.0 % | + + + + | MONOCYTE % | 1.7 (L)Comment: Some Monocytes appear | 3.5 - 9.0 % | | | immature on scan. | | + + + + | EOSINOPHIL % | 0.0 (L) | 1.0 - 3.0 % | + + + + | BASOPHIL % | 0.0 | 0.0 - 2.0 % | + + + + | IG% | 0.0Comment: Increased immature | 0.0 - 1.0 % | | | granulocytes(IG)define a left shift.IGs | | | | include metamyelocytes, myelocytes and | | | | promyelocytes. Bands are included in the | | | | neutrophil count, not the IG count, except | | | | in neonates <=60 days old where bands are | | | | reported in a manual diff. | | + + + + | NEUTROPHIL # | 17.82 (H) | 1.80 - 7.70 K/cu mm | + + + + | LYMPHOCYTE # | 0.33 (L) | 1.00 - 4.80 K/cu mm | + + + + | MONOCYTE # | 0.31 | 0.10 - 0.90 K/cu mm | + + + + | EOSINOPHIL # | 0.00 | 0.00 - 0.50 K/cu mm | + + + + | BASOPHIL # | 0.00 | 0.00 - 0.10 K/cu mm | + + + + | IG# | 0.00 | 0.00 - 0.10 K/cu mm | + + + + + + + | Specimen | Performing Laboratory | + + + | Blood | [facility], CORE [address] | | | [place] [address] | + + + + + | Narrative | + + | New reference ranges for IG% and IG# effective 06/10/2017. Increased immature | | granulocytes(IG)define a left shift.IGs include metamyelocytes, myelocytes and | | promyelocytes. Bands are included in the neutrophil count, not the IG count, except in | | neonates <=60 days old where bands are reported in a manual diff. | + + CBC, WITH DIFFERENTIAL (06/26/2017 9:39 AM) + + + | Specimen | Performing Laboratory | + + + | Blood | | + + + + + | Narrative | + + | The following orders were created for panel order CBC, WITH DIFFERENTIAL. | | Procedure | | Abnormality Status | | --------- | | ------ CBC AND AUTO | | DIFF[[id number]] Abnormal Final | | result MANUAL | | DIFFERENTIAL[[id number]] Abnormal Final | | result RBC MORPHOLOGY[[id number]] | | Normal Final result Please view | | results for these tests on the individual orders. | + + AO-LQ-YPZ-HB,POC RT (06/26/2017 8:55 AM) + + + + | Component | Value | Ref Range | + + + + | HCO3 VENOUS, POC | 22.4 | 22 - 28 mmol/L | + + + + | PCO2 VENOUS, POC | 49 | 35 - 50 mmHg | + + + + | PH VENOUS, POC | 7.27 (L) | 7.35 - 7.45 | + + + + | BASE EXCESS PELON, POC | -4.5 | | + + + + | O2 SAT VENOUS, POC | 85.9 | % | + + + + | PO2 VENOUS, POC | 56 (H) | 30 - 55 mmHg | + + + + | SODIUM, WHL BLD, POC | 139 | 134 - 143 mmol/L | + + + + | POTASSIUM,WHL BLD, | 3.3 (L) | 3.4 - 5.0 mmol/L | | POC | | | + + + + | RODDY IONIZED | 1.08 (L) | 1.14 - 1.32 mmol/L | | CA,WHOLE BLD,POC | | | + + + + | HEMOGLOBIN, POC | 12.3 (L) | 13.5 - 17.5 g/dL | + + + + | LACTATE POC | 3.0 (H) | 0.5 - 2.2 mmol/L | + + + + | FIO2 VENOUS, POC | 80.0 | | + + + + | PAT TEMP VENOUS,POC | 36.6 | | + + + + + + + | Specimen | Performing Laboratory | + + + | Blood | [facility], POINT OF CARE TESTS [address] | | | [place] [address] | + + + LAB REPORTS (06/26/2017)RADIOLOGY (06/26/2017)Only the most recent of 3 results within the time period is included.PATHOLOGY (06/26/2017)from Last 3 Months
--- OUTSIDE RECORDS SUMMARY | ~2017-07-16 | XMS | Encounter Summary ---
Demographics + + + | Address | [address] | | | [place] [address] | + + + | Home Phone | | + + + | Preferred Language | Unknown | + + + | Marital Status | Single | + + + | Alevism Affiliation | NON | + + + | Race | White | + + + | Ethnic Group | Not or | + + + Author + + + | Author | [facility] | + + + | Organization | [facility] | + + + | Address | Unknown | + + + | Phone | Unavailable | + + + Support + + +---------+ + | Name | Relationship | Address | Phone | + + +---------+ + | RITESH SPRINGER | ECON | Unknown | | + + +---------+ + Care Team Providers + +------+ + | Care Regulatory Affairs Director Name | Role | Phone | [...] 06/26/ | Anesthesia | 6A Intra Op [facility] | Bob Noble, | | | 2017 | | [facility] | MD [address] | | | | | Admitting Desk | [facility] | | | | | Located on the | [place], [place] | | | | | [facility] [address] | [address] | | | | | [facility] | [phone] | | | | | [place], [place] | | | | | | [address] | | | +--------+ + + + + Anesthesia Record + + + + + | Procedure Name | Responsible | Anesthesia Start | Anesthesia Stop Time | | | Anesthesiologist | Time | | + + + + + | GI LAB ERCP IN [place] | Bob Noble MD | 06/26/17 0445 | 06/26/17 1705 | | (N/A ) | | | | + + + [...] +----+---+ + + | | 1 | Pause | | | | 6 | | [...] + | | 1 | OR to ICU | patient transported to ICU with continuos monitoring, intubated | | | 6 | | and ventilated, signout given to ICU [...] | + + + + + | No agents on file. | + + + + | No blood administrations on file. | + + +--------+ + + + | Type | Details | Placement | Removal | +--------+ + + + | Urethr | 06/26/17; 0900; [facility] hospital; | 06/26/17 0900 by | 06/27/17 1100 by | | al | Graciela Arriaga; 06/27/17; 1100 | Leonor Peck RN | Lani Chicas RN | | Cathet | | | | | er | | | | +--------+ + + + | Centra | 06/26/17; 0900; Dr. Garcia; Right; | 06/26/17 0900 by | 06/27/17 1403 by | | l Line | Internal Jugular; 06/27/17; 1403 | Leonor Peck RN | Lani Chicas RN | | - | | | | | Triple | | | | | Lumen | | | | +--------+ + + + | Arteri | 06/26/17; 0900; Standard; Right; | 06/26/17 09 by | 06/27/17 09 by | | al | 06/27/17917 | Leonor Peck RN | Lani Chicas RN | | Line | | | | +--------+ + + + | Periph | 06/26/17; 0900; EMS; Left; Wrist; | 06/26/17 09 by | 06/26/17 1830 by | | eral | 20 g; Negative; 06/26/17; 1830; | Leonor Peck RN | Leonor Peck RN | | IV | Per [...] | | | +--------+ + + + in this encounter Social History + +-------+ [...] encounter Visit Diagnoses Not on filein this encounter Administered Medications + +--------+ +---------+------+------+ | Medication Order | MAR | Action | Dose | Rate | Site | | | Action | Date | | | | + +--------+ +---------+------+------+ | glucagon (GLUCAGEN) injection | Given | 06/26/2017 | 0.25 mg | | | | INTRAPROCEDURE PRN, Starting Tue | | 16:25 | | | | | 06/26/17 at 1625, Until 06/26/17 | | PST | | | | | at 1647 | | | | | | + +--------+ +---------+------+------+ +---+---+ | | | +---+---+ + +---------+ +---+---+---+ | lactated Ringers IV | New Bag | 06/26/2017 | | | | | INTRAPROCEDURE CONTINUOUS PRN, | | 16:00 | | | | | Starting 06/26/17 at 1600, | | PST | | | | | Until 06/26/17 at 1647 | | | | | | + +---------+ +---+---+---+ + + +---+---+---+ | given by anesthesiology | 06/26/2017 | | | | | | 17:01 | | | | | | PST | | | | + + +---+---+---+ +---+---+ | | | +---+---+ + + + + +-------+---+ | norepinephrine (LEVOPHED) | Restarte | 06/26/2017 | 0.02 | 3.24 | | | 8mg/250 mL (0.032 mg/mL) IV | d | 19:10 | mcg/kg/m | mL/hr | | | infusion (ADC) 0.02-0.2 | | PST | in | | | | [...] + + + +-------+---+ | Restarted | 06/26/2017 | 0.02 | 3.24 | | | | 19:45 | mcg/kg/m | mL/hr | | | | PST | in | | | + + + +-------+---+ | Rate/Dose Verify | 06/26/2017 | 0.02 | 3.24 | | | | 20:00 | mcg/kg/m | mL/hr | | | | PST | in | | | + + + +-------+---+ +---+---+ | | | +---+---+ in this encounter"
--- OUTSIDE RECORDS SUMMARY | ~2017-07-16 | XMS | Encounter Summary ---
Demographics + + + | Address | [address] | | | [place] [address] | + + + | Home Phone | | + + + | Preferred Language | Unknown | + + + | Marital Status | Single | + + + | Amish Affiliation | NON | + + + | Race | White | + + + | Ethnic Group | Not or | + + + Author + + + | Author | [facility] | + + + | Organization | [facility] | + + + | Address | Unknown | + + + | Phone | Unavailable | + + + Support + + +---------+ + | Name | Relationship | Address | Phone | + + +---------+ + | RITESH SPRINGER | ECON | Unknown | | + + +---------+ + Care Team Providers + +------+ + | Care Building Custodian Name | Role | Phone | + +------+ + | Daryl March MD | PCP | | + +------+ + Encounter Details +--------+ + + + + | Date | Type | Department | Care Team | Description | +--------+ + + + + | 07/04/ | Inside | Digestive Health | Lyla Mendoza | | | 2018 | Referral | Center at [facility] 4th | MD Rashida [address] | | | | Order | Floor [address] | [facility] | | | | | [facility] | [place], [place] | | | | | Mailcode: UHN83 | [address] | | | | | [address]nie [address] | [phone] | | | | | [address] [facility] [place] | | | | | | [address] | | | | | | [phone] | | | +--------+ + + + [...] + + + as of this encounter Functional Status + [...] | | | + + + + as of this encounter Plan of Treatment +------+--------+ + + | Name | Priori | Associated Diagnoses | Order Schedule | | | ty | | | +------+--------+ + + | ERCP | Routin | | Expected: 07/04/2017 | | | e | Choledocholithiasis | | +------+--------+ + + as of this encounter Visit Diagnoses + + | Diagnosis | + + | Choledocholithiasis - Primary | + + | Calculus of bile duct without mention of cholecystitis or obstruction | + +"
--- OUTSIDE RECORDS SUMMARY | ~2017-07-16 | XMS | Encounter Summary ---
Demographics + + + | Address | [address] | | | [place] [address] | + + + | Home Phone | | + + + | Preferred Language | Unknown | + + + | Marital Status | Single | + + + | Episcopal Affiliation | NON | + + + [...] Team Providers + +------+ + | Care Director Of Early Childhood Education Name | Role | Phone | + +------+ + | Daryl March MD | PCP | | + +------+ + Encounter Details +--------+ + + + + | Date | Type | Department | Care Team | Description | +--------+ + + + + | 06/28/ | Document-Sc | Health Information | Other, Faculty | | | 2018 | anned | Services [address] | [phone] | | | | | [address] | | | | | | Road Mailcode: | | | | | | [address] | | | | | | [facility] | | | | | | [place], [place] | | | | | | [address] | | | | | | [phone] | | | +--------+ + + + [...]
--- OUTSIDE RECORDS SUMMARY | ~2017-07-16 | XMS | Encounter Summary ---
Demographics + + + | Address | [address] | | | [place] [address] | + + + | Home Phone | | + + + | Preferred Language | Unknown | + + + | Marital Status | Single | + + + | Restorationism Affiliation | NON | + + + | Race | White | + + + | Ethnic Group | Not or | + + + Author + + + | Author | [facility] | + + + | Organization | [facility] | + + + | Address | Unknown | + + + | Phone | Unavailable | + + + Support + + +---------+ + | Name | Relationship | Address | Phone | + + +---------+ + | RITESH SPRINGER | ECON | Unknown | | + + +---------+ + Care Team Providers + +------+ + | Care Ham Marker Name | Role | Phone | + +------+ + | Daryl March MD | PCP | | + +------+ + Reason for Visit +--------+ + | Reason | Comments | +--------+ + | Other | | +--------+ + Encounter Details +--------+ + + + + | Date | Type | Department | Care Team | Description | +--------+ + + + + | 07/04/ | Telephone | Cardiology | Franko Garcia | Other | | 2018 | | Arrhythmia at [facility] | MD Herson [address] | | | | | [address] | [address] | | | | | Mailcode: CH9A | [place], [place] | | | | | [facility] | [address] | | | | | and | [phone] | | | | | Floor [place], [place] | | | | | | [address] | | | | | | [phone] | | | +--------+ + + + [...]
--- OUTSIDE RECORDS SUMMARY | ~2017-07-16 | XMS | Encounter Summary ---
Demographics + + + | Address | [address] | | | [place] [address] | + + + | Home Phone | | + + + | Preferred Language | Unknown | + + + | Marital Status | Single | + + + | Scientologist Affiliation | NON | + + + | Race | White | + + + | Ethnic Group | Not or | + + + Author + + + | Author | [facility] | + + + | Organization | [facility] | + + + | Address | Unknown | + + + | Phone | Unavailable | + + + Support + + +---------+ + | Name | Relationship | Address | Phone | + + +---------+ + | RITESH SPRINGER | ECON | Unknown | | + + +---------+ + Care Team Providers + +------+ + | Care Electron Beam Operator Name | Role | Phone | + +------+ + | Daryl March MD | PCP | | + +------+ + Encounter Details +--------+ + + + + | Date | Type | Department | Care Team | Description | +--------+ + + + + | 06/26/ | Procedure | 6A Intra Op [facility] | | | | 2017 | Pass | [facility] | | | | | | Admitting Desk | | | | | | Located on the 9th | | | | | | floor [address] [facility] | | | | | | [facility] | | | | | | [place], [place] | | | | | | [address] | | | +--------+ + + + [...]
--- OUTSIDE RECORDS SUMMARY | ~2017-07-16 | XMS | Encounter Summary ---
Demographics + + + | Address | [address] | | | [place] [address] | + + + | Home Phone | | + + + | Preferred Language | Unknown | + + + | Marital Status | Single | + + + | Restoration Affiliation | NON | + + + [...] Team Providers + +------+ + | Care Tool Clerk Name | Role | Phone | + +------+ + | Daryl March MD | PCP | | + +------+ + Encounter Details +--------+ + + + + | Date | Type | Department | Care Team | Description | +--------+ + + + + | 06/26/ | Document-Sc | Health Information | Other, Faculty | | | 2018 | anned | Services [address] | [phone] | | | | | [address] | | | | | | Road Mailcode: | | | | | | [address] | | | | | | [facility] | | | | | | [place], [place] | | | | | | [address] | | | | | | [phone] | | | +--------+ + + + [...] Not on fileas of this encounter Results RADIOLOGY (06/26/2017)RADIOLOGY (06/26/2017)RADIOLOGY (06/26/2017)in this encounter Visit Diagnoses Not on filein this encounter"
--- OUTSIDE RECORDS SUMMARY | ~2017-07-16 | XMS | Clinical Summary ---
Demographics + + + | Address | [address] | | | [place] [address] | + + + | Home Phone [...] + + | Author | [facility] | + + + | Organization | [facility] | + + + | Address | Unknown | + + + | Phone | Unavailable | + + + Support + + +---------+ + | Name | Relationship | Address | Phone | + + +---------+ + | RITESH SPRINGER | ECON | Unknown | | + + +---------+ + Care Team Providers + +------+ + | Care Supervisor Drying And Winding Name | Role | Phone | + +------+ + | Daryl March MD | PP | | + +------+ + Source Comments BETTINA is fully live on both [facility] Ambulatory and [facility] InPatient.[facility] Allergies + + + + [...] + + + + | 06/27/ | Development Lead | | Lyla Maldonado | Choledocholithiasis | [...] | | 240 mg | | | [id number] | | | y known as: | [...] | | [place] | | | [place] [address] | | | Hours: | | | [...] | | please call | | | [phone] | | | [phone] | | | and ask the | | | tool room gear machine operator | | | to page the [...] | | ask the | | | tool room gear machine operator to | | | page the | | | physician | | | control operator flow coat for | | | the | | [...] | | | Physician | | | Merchandise Pickup/Receiving Associate | | | working | | | [...] | | | INTERNAL | | | [id number] | | | 0 | | | [place] | | | ITE | | | [address] | | | [place] | | | [phone] | | | [phone] | | | [...] | + + + | Blood | [facility], CORE [address] [place] [address] | | | [place] [address] | + + + COMPLETE METABOLIC SET [...] | >60 | >60 mL/min | | BOLIVIAN | | | + +---------+ + | EGFR NON | >60 | >60 mL/min | | -BOLIVIAN | | | + +---------+ + | [...] | + + + | Blood | [facility], CORE [address] | | | [place] [address] | + + + + + | [...] | | ------ CBC (HEMOGRAM) | | ONLY[[id number]] Abnormal Final | | result Please view [...] | + + + | Blood | [facility], CORE [address] [facility] | | | [place], [place] [address] | + + + + + | [...] | + + + | Blood | [facility], CORE [address] [facility] | | | [place] [address] | + + + US ABDOMEN LIMITED (06/28/2017 11:30 AM) + + + | Specimen | Performing Laboratory | + + + | | [facility] RADIOLOGY VOICE RECOGNITION | + + [...] [address] | | | [place] [address] | + + + X-RAY CHEST 2 VIEW (06/27/2017 9:30 PM) + + + | Specimen | Performing Laboratory | + + + | | [facility] RADIOLOGY VOICE RECOGNITION | + + [...] Note | + + | Service Account, [employer] In Interface - 06/28/2017 10:17 AM [...] | >60 | >60 mL/min | | [place] | | | + +---------+ + | EGFR NON | >60 | >60 mL/min | | -BOLIVIAN | | | + +---------+ + | [...] | + + + | Blood | [facility], CORE [address] | | | [place] [address] | + + + + + | [...] | + + + | Urine | [facility], CORE [address] | | | [place] [address] | + + + + + | [...] | + + + | Urine | [facility] [address] | | | [place] [address] | + + + + + | [...] | + + + | Blood | [facility] [address] [facility] | | | [place] [address] | + + + CULTURE, BLOOD BACTI [...] ------ CULTURE, BLOOD | | BACTI & Y...[[id number]] Final | | result Please view results [...] | SPECIFIC GRAVITY | 1.040 (H)Comment: Specific [place] | 1.005 - 1.030 | | | performed by refractometry | | + + + + + + + | Specimen | Performing Laboratory | + + + | Urine - Bladder | [facility] [address] [facility] | | | [place] [address] | + + + + + | [...] + + | Urine - Bladder | [facility], CORE [address] [facility] | | | [place] [address] | + + + ERCP (06/27/2017 6:38 AM) + + + | Specimen | Performing Laboratory | + + + | | [facility] ENDOSCOPY | + + + + + | Narrative | + + | Procedure Date: 06/27/2017 Patient Name: William Burns Order #: | | [id number] Date of : 1935 CSN: [id number] Admit Type: Inpatient Room: SOR | | Procedure: ERCP Indications: For therapy of | | ascending cholangitis; 82 yo M with sepsis, | | elevated LFTs and US showing mary dil and 1.3 cm | | CBD Providers: LYLA Mackay | | MD ERICA (Doctor), JORDY SOLANO, | | RN (Nurse), ESTELA DAMIAN, RN (Hairspring Adjuster) Referring MD: Requesting | | Provider: Medicines: General Anesthesia, Indomethacin 100 mg [place] | | Complications: No immediate complications. Procedure: [...] procedure. The Olympus TJF-Q180V Duodenoscope | | #[id number] was introduced through the mouth, | | and advanced to the duodenum and used to | | inject contrast into the bile duct. The ERCP | | was accomplished without difficulty. The | | patient tolerated the procedure well. Estimated Blood Loss: Estimated blood | | loss: none. Findings: urgent SOR case for ICU patient with acute cholangitis. | | The opal polisher film was normal. The esophagus was successfully [...] Name: William Burns Order #: | | [id number] Date of : 1935 CSN: [id number] Admit Type: Inpatient Room: SOR | | Procedure: ERCP Indications: For therapy of | | ascending cholangitis; 82 yo M with sepsis, | | elevated LFTs and US showing mary dil and 1.3 cm | | CBD Providers: LYLA Mackay | | MD ERICA (Doctor), JORDY SOLANO, | | RN (Nurse), ESTELA DAMIAN RN (Hairspring Adjuster) Referring MD: Requesting | | Provider: Medicines: General Anesthesia, Indomethacin 100 mg [place] | | Complications: No immediate complications. Procedure: [...] procedure. The Olympus TJF-Q180V Duodenoscope | | #[id number] was introduced through the mouth, | | and advanced to the duodenum and used to | | inject contrast into the bile duct. The ERCP | | was accomplished without difficulty. The | | patient tolerated the procedure well. Estimated Blood Loss: Estimated blood | | loss: none. Findings: urgent SOR case for ICU patient with acute cholangitis. | | The opal polisher film was normal. The esophagus was successfully [...] | + + + | Blood | [facility], CORE [address] | | | [place] [address] | + + + + + | [...] + | ECG IMPRESSION | Borderline prolonged [place] interval | | + + + + [...] | + + + | | [facility] [address] | | | [place] [address] | + + + OUTSIDE BODY - READ REQUEST (06/27/2017) + + + | Specimen | Performing Laboratory | + + + | | [facility] RADIOLOGY VOICE RECOGNITION | + + [...] Note | + --------+ | Service Account, [email or web address] In Interface - 06/28/2017 9:20 AM PST [...] | + + + | Blood | [facility], CORE [address] [facility] | | | [place] [address] | + + + X-RAY ABD LTD FEEDING TUBE EVAL (06/26/2017 8:53 PM)Only the most recent of 5 results with in the time period is included. + + + | Specimen | Performing Laboratory | + + + | | [facility] RADIOLOGY VOICE RECOGNITION | + + [...] verifies correct patient, | | procedure, equipment, legal support specialist and site/side marked as required. CLABSI | [...] + | Tissue - Bile duct | [facility] DEPARTMENT OF PATHOLOGY [address] | | | [place] [address] | + + + CVL (06/26/2017 4:21 [...] A pause verifies correct patient, procedure, equipment, legal support specialist and | | site/side marked as required. [...] The modified Seldinger technique (a | | julelsnn-ockl-rxy-fqvtxi-nmfz-zjdu-fdmjgug-vij-ceexneym) was used for vessel | | cannulation. [...] | + + + | Blood | [facility], CORE [address] [facility] | | | [place] [address] | + + + LACTATE (06/26/2017 3:39 PM) + +-------+ + | Component | Value | Ref Range | + +-------+ + | LACTATE | 1.3 | mmol/L | + +-------+ + + + + | Specimen | Performing Laboratory | + + + | Blood | [facility], CORE [address] [facility] | | | [place] [address] | + + + + + | [...] | + + + | Blood | [facility], CORE [address] | | | [place] [address] | + + + VITAMIN D, 25-HYDROXY, SERUM (06/26/2017 2:01 PM) + +---------+ + | Component | Value | Ref Range | + +---------+ + | VITAMIN D 25 HYDROXY | 8.3 (L) | 30 - 80 ng/mL | + +---------+ + + + + | Specimen | Performing Laboratory | + + + | Blood | [facility], CORE [address] [facility] | | | [place] [address] | + + + + + | [...] | + + + | Blood | [facility], CORE [address] [facility] | | | [place] [address] | + + + COAGULOPATHY PANEL (INR,APTT,FIBRINOGEN) [...] | + + + | Blood | [facility], CORE [address] [facility] | | | [place] [address] | + + + + + | [...] Note | + + | Service Account, [email or web address] In Interface - 06/26/2017 10:12 AM PST [...] | + + + | Blood | [facility], TRANSFUSION MEDICINE [address] [facility] | | | [place] [address] | + + + ANTIBODY SCREEN (06/26/2017 9:40 AM) + + + + | Component | Value | Ref Range | + + + + | Antibody Screen | Negative | | + + + + + + + | Specimen | Performing Laboratory | + + + | Blood | [facility], TRANSFUSION MEDICINE [address] | | | [address] [facility] [place] [address] | + + + TYPE AND SCREEN [...] | ------ ABO & RH | | TYPE[[id number]] F | | inal result ANTIBODY | | SCREEN[[id number]] Fin | | al result Please view [...] | + + + | Blood | [facility], TRANSFUSION MEDICINE [address] | | | [place] [address] | + + + BLOOD CULTURE WORKUP [...] + | Blood - Central line | [facility] [address] [place], [place] | | | [address] | + + + + + | [...] | + + + | Blood | [facility], CORE [address] [facility] | | | [place] [address] | + + + CBC AND AUTO [...] | + + + | Blood | [facility], CORE [address] [facility] | | | [place] [address] | + + + MANUAL DIFFERENTIAL (06/26/2017 [...] | + + + | Blood | [facility], CORE [address] | | | [place] [address] | + + + + + | [...] | ------ CBC AND AUTO | | DIFF[[id number]] Abnormal Final | | result MANUAL | | DIFFERENTIAL[[id number]] Abnormal Final | | result RBC MORPHOLOGY[[id number]] | | Normal Final result Please view | | results for these tests on the individual orders. | + + EX-ZS-VFS-HB,POC RT (06/26/2017 8:55 AM) + + + [...] | + + + | Blood | [facility], POINT OF CARE TESTS [address] | | | [place] [address] | + + + LAB REPORTS (06/26/2017)RADIOLOGY (06/26/2017)Only the most recent of 3 results within the time period is included.PATHOLOGY (06/26/2017)from Last 3 Months
--- OUTSIDE RECORDS SUMMARY | ~2017-07-16 | XMS | Encounter Summary ---
Demographics + + + | Address | [address] | | | [place] [address] | + + + | Home Phone | | + + + | Preferred Language | Unknown | + + + | Marital Status | Single | + + + | Mandaeism Affiliation | NON | + + + [...] Team Providers + +------+ + | Care Chain Tender Name | Role | Phone | [...] Gastroenterol | Diagnoses | [place], | Gas Gi Proc | | | | ogy | | Lyla K, | [address] | | | | | Choledocholi | [address] | [address] | | | | | thiasis | [address] | [facility] | | | | | Procedures | [facility] | Mailcode: | | | | | CONSULT TO | [place], [place] | UHN83 | | | | | GI | [address] | [place] | | | | | PROCEDURE: | Phone: | [address] | | | | | ERCP / | [phone] | [place], | | | | | [place] | Fax: | [place] [address] | | | | | [place] | [phone] | Phone: | | | | | | | [phone] | | | | | | | Fax: | | | | | | | [phone] | +--------+--------+ + + + + Encounter Details +--------+ + + + + | Date | Type | Department | Care Team | Description | +--------+ + + + + | 06/27/ | Roper Operator | Digestive Health | Lyla Mendoza | Choledocholithiasis | | 2018 | | Center at [facility] 6th | MD Rashida [address] | (Primary Dx) | | | | Floor [address] | [address] | | | | | [place] Mailcode: CH6D | [place], [place] | | | | | [place] [facility] | [address] | | | | | and Healing, 6th | [phone] | | | | | floor [place], [place] | | | | | | [address] | | | | | | [phone] | | | +--------+ + + + [...] on fileas of this encounter Visit Diagnoses + + | Diagnosis | + + | Choledocholithiasis - Primary | + + | Calculus of bile duct without mention of cholecystitis or obstruction | + +"
--- OUTSIDE RECORDS SUMMARY | ~2017-07-16 | XMS | Encounter Summary ---
Demographics + + + | Address | [address] | | | [place] [address] | + + + | Home Phone | | + + + | Preferred Language | Unknown | + + + | Marital Status | Single | + + + | Mormon Affiliation | NON | + + + | Race | White | + + + | Ethnic Group | Not or | + + + Author + + + | Author | [facility] | + + + | Organization | [facility] | + + + | Address | Unknown | + + + | Phone | Unavailable | + + + Support + + +---------+ + | Name | Relationship | Address | Phone | + + +---------+ + | RITESH SPRINGER | ECON | Unknown | | + + +---------+ + Care Team Providers + +------+ + | Care Spa Consultant Name | Role | Phone | [...] | | 2018 | | Arrhythmia at [facility] | MD Herson [address] | | | | | [address] | [address] | | | | | Mailcode: CH9A | [place], [place] | | | | | [facility] | [address] | | | | | and | [phone] | | | | | Floor [place], [place] | | | | | | [address] | | | | | | [phone] | | | +--------+ + + + [...]
--- OUTSIDE RECORDS SUMMARY | ~2017-07-16 | XMS | Encounter Summary ---
Demographics + + + | Address | [address] | | | [place] [address] | + + + | Home Phone | | + + + | Preferred Language | Unknown | + + + | Marital Status | Single | + + + | Rastafarian Affiliation | NON | + + + [...] Team Providers + +------+ + | Care Assurance Senior Manager Name | Role | Phone | [...] | | thiasis | [address] | [facility] | | | | | Procedures | [facility] | Mailcode: | | | | | CONSULT TO | [place], [place] | UHN83 | | | | | GI | [address] | [place] | | | | | PROCEDURE: | Phone: | [address] | | | | | ERCP / | [phone] | [place], | | | | | [place] | Fax: | [place] [address] | | | | | [place] | [phone] | Phone: | | | | | | | [phone] | | | | | | | Fax: | | | | | | | [phone] | +--------+--------+ + + + + Encounter Details +--------+ + + + + | Date | Type | Department | Care Team | Description | +--------+ + + + + | 06/27/ | Asbestos Siding Installer | Digestive Health | Lyla Mendoza | Choledocholithiasis | | 2018 | | Center at [facility] 6th | MD Rashida [address] | (Primary Dx) | | | | Floor [address] | [address] | | | | | [place] Mailcode: CH6D | [place], [place] | | | | | [place] [facility] | [address] | | | | | and Healing, 6th | [phone] | | | | | floor [place], [place] | | | | | | [address] | | | | | | [phone] | | | +--------+ + + + [...]
--- OUTSIDE RECORDS SUMMARY | ~2017-07-16 | XMS | Encounter Summary ---
Demographics + + + | Address | [address] | | | [place] [address] | + + + | Home Phone | | + + + | Preferred Language | Unknown | + + + | Marital Status | Single | + + + | Adventism Affiliation [...] Team Providers + +------+ + | Care Velvet Steamer Name | Role | Phone | + [...] | 2018 | Referral | Center at [facility] 4th | [address] | | | | Order | Floor [address] [facility] | [facility], | | | | | [facility] | [place] [address] | | | | | Mailcode: UHN83 | [phone] | | | | | [address] | | | | | | [address] [place], [place] | | | | | | [address] | | | | | | [phone] | | | +--------+ + + + [...] Name: William Burns Order #: | | [id number] Date of : 1935 CSN: [id number] Admit Type: Inpatient Room: SOR | | Procedure: ERCP Indications: For therapy of | | ascending cholangitis; 82 yo M with sepsis, | | elevated LFTs and US showing mary dil and 1.3 cm | | CBD Providers: RENE Mackay | | MD ERICA (Doctor), JORDY SOLANO, | | RN (Nurse), ESTELA DAMIAN RN (Jingle Writer) Referring MD: Requesting | | Provider: Medicines: General Anesthesia, Indomethacin 100 mg [place] | | Complications: No immediate complications. Procedure: [...] procedure. The Olympus TJF-Q180V Duodenoscope | | #[id number] was introduced through the mouth, | | and advanced to the duodenum and used to | | inject contrast into the bile duct. The ERCP | | was accomplished without difficulty. The | | patient tolerated the procedure well. Estimated Blood Loss: Estimated blood | | loss: none. Findings: urgent SOR case for ICU patient with acute cholangitis. | | The dealer account manager film was normal. The esophagus was [...]
--- OUTSIDE RECORDS SUMMARY | ~2017-07-16 | XMS | Encounter Summary ---
Demographics + + + | Address | [address] | | | [place] [address] | + + + | Home Phone | | + + + | Preferred Language | Unknown | + + + | Marital Status | Single | + + + | Sabianist Affiliation [...] Phone | + + +---------+ + | SHARON SPRINGER | ECON | Unknown | | + + +---------+ + Care Team Providers + +------+ + | Care Isotope Hydrologist Name | Role | Phone | + [...] 06/26/ | Surgery | 6A Intra Op [facility] | Rene Maldonado | ERCP | | 2018 | | [facility] | MD Rashida [address] [facility] | | | | | Admitting Desk | [facility] | | | | | Located on the 9 | [place], [place] | | | | | [address] | [address] | | | | | [facility] | [phone] | | | | | [place], [place] | | | | | | [address] | | | +--------+---------+ + + + [...] + + + as of this encounter Last Filed Vital [...] AM PST | + + + + in this encounter Functional Status + + [...] + + + as of this encounter Discharge Summaries Virgil Grimm MD - 06/30/2017 1:55 PM PSTFormatting of this note may be different from the original. [facility] Discharge Summary Discharging Provider: VIRGIL GRIMM [...] and intubated prior to tra nsfer to [facility]. Workup was notable for RUQ U/S with [...] Your Medications These medications were sent to [id number] [address] [place] [address], [place] [address] Hours: 9AM-7PM MON - FRI / 9AM-6PM [...] Thank you for entrusting your care to [facility] Internal Medicine. If you have any problems or concerns before you are able to follow up with your Primary Care Provider, please call and ask the plant control operator to page the attending physician, Vic Petty MD, wh o was caring for you at discharge. If that physician is not available, ask the plant control operator to page the physician condenser setter for the Medical Teaching Service. Call us right away if any of the following occur: Recurrent abdominal pain Shaking chills or night sweats Other Discharge Orders and Instructions You will be called by the [facility] GI service within the next week to schedule a repeat appoint ment for ERCP and possible stent removal. Home Health Referral after Hospitalization Comments: I certify that this patient is under my care and that I, or Nurse Practitioner or Physician Audio Video Repairer working with me, had a face to face encounter with this patient on 06/30/2017 On behalf of Attending Physician: Vic Petty MD I am ordering and certify that the following services are medically necessary home health s [facility] Physical Therapy Evaluate and Treat I certify that the patient is homebound based on the following clinical findings Post-hospi tono weakness, decreased strength and endurance, and tires easily with minimal exertion Follow Up: Schedule the following appointment(s) when you get home DARYL MATHEWS MD . Specialty: Internal Medicine Contact information [facility] [address] [place] [address] [address] [facility] [phone] Discharge Physical Exam: Last 24 hour min/max [...] 3:54 PM PSTFormatting of th is note may be different from the original. ATTENDING BRIEF [...] Non-ST elevation myocardial infarction (NSTEMI), type 2 ([facility]) 12) Acute respiratory failure with hypoxia ([facility]) Please refer to the resident discharge summary for additional details. Vic Petty MD, PhD Clinical Hospitalist and Medicine Teaching Services [facility] Pager [phone] I have spent 35 minutes with the patient of which more than 50% was spent counseling. in this encounter Medications at Time of Discharge + + +--------+---------+ + + | Medication | Sig. | Disp. | Refills | Start | End Date | | | | | | Date | | + + +--------+---------+ + + | acetaminophen 325 | Take 2 tablets by | 30 | 1 | 06/30/19 | | | mg oral tablet | mouth every six | tablet | | 18 | | | | hours while awake. | | | | | + + +--------+---------+ + + | furosemide 20 mg | Take 20 mg by mouth | | | 05/23/19 | | | oral tablet | once daily. | | | 18 | | + + +--------+---------+ + + | | Inhale 3 mL every | | | | | | ipratropium-albutero | four hours as needed | | | | | | l 0.5 mg-3 mg(2.5 mg | for dyspnea/SOB. | | | | | | base)/3 mL | | | | | | | inhalation solution | | | | | | | for nebulization | | | | | | + + +--------+---------+ + + | lisinopril 20 mg | Take 20 mg by mouth | | | 05/23/19 | | | oral tablet | once daily. | | | 18 | | + + +--------+---------+ + + | loratadine | Take 10 mg by mouth | | | | | | (CLARITIN LIQUI-GEL) | once daily. | | | | | | 10 mg oral capsule | | | | | | + + +--------+---------+ + + | naproxen sodium | Take 1 capsule by | | | | | | 220 mg oral capsule | mouth once daily as | | | | | | | needed. | | | | | + + +--------+---------+ + + | omeprazole 40 mg | Take 40 mg by mouth | | | 05/23/19 | | | oral capsule,delayed | once daily in the | | | 18 | | | release(DR/EC) | morning. | | | | | + + +--------+---------+ + + | polyethylene | Mix 1 packet and | 1 | 1 | 07/01/19 | | | glycol 17 gram oral | take orally once | packet | | 18 | | | powder in packet | daily. | | | | | + + +--------+---------+ + + | pravastatin 10 mg | Take 10 mg by mouth | | | 05/16/20 | | | oral tablet | once daily at | | | 17 | | | | bedtime. | | | | | + + +--------+---------+ + + | simethicone chew | Chew and swallow 1 | 30 | 1 | 06/30/19 | | | 80 mg oral | tablet three times | tablet | | 18 | | | tablet,chewable | daily as needed for | | | | | | | bloating. | | | | | + + +--------+---------+ + + | | Take 1 tablet [...] | | | | | + + +--------+---------+ + + as of this encounter Progress Notes Collin Mohr - 06/29/2017 1:40 PM PSTFormatting of this note may be different from the original. PHYSICIAN RESEARCH ATTORNEY STUDENT PROGRESS NOTE FOR EDUCATIONAL PURPOSES ONLY [...] Q2H PRN ipratropium-albuterol 3 mL Q6H PRN xnzlrtsx-rnyqduj-snhaukuz-zinc QID PRN oxyCODONE (immediate release) 2.5-5 mg [...] evaluation. IV/Airways/Catheters: PIV Code status: FULL SHAHEEN [facility] Physician Audio Video Repairer Program 06/29/17 Vic Petty MD - 06/29/2017 1:28 PM PSTGeneral Medicine [...] List: Active Hospital Problems 1) *Septic shock ([facility]) 2) Choledocholithiasis 3) Acute cholangitis 4) Klebsiella sepsis ([facility]) 5) Aspiration pneumonitis ([facility]) 6) S/P ERCP 7) COPD (chronic obstructive pulmonary disease) ([facility]) 8) Essential hypertension 82 year-old man with HTN, COPD not on supplemental oxygen, who presented to OSH with epigas tric pain and abnormal LFTs, admitted for septic shock due to acute cholangitis and acute hy poxic respiratory failure due to aspiration requiring intubation, transferred to [facility] MICU. Here found to have klebsiella bacteremia [...] PhD Clinical Hospitalist and Medicine Teaching Services [facility] Pager [phone] I have spent 26 minutes with the patient of which more than 50% was spent counseling the pa tient and in coordination of care. Dimas Xavier MD - 06/29/2017 8:23 AM PSTFormatting of this note may be differen t from the original. General Internal Medicine 5 Progress Note Hospital [...] Weight: 86.5 kg (190 lb 11.2 oz) (06/26/17904) General Appearance: elderly man in no apparent [...] interval not displayed. Micro: BLOOD CULTURE WORKUP [[id number]] (Abnormal) [facility] Collected: 06/26/17 0939 Lab [...] Non-ST elevation myocardial infarction (NSTEMI), type 2 ([facility]) 11) Acute respiratory failure with hypoxia ([facility]) Assessment: William Burns is a [...] Decision Maker Primary Surrogate Decision Maker Sharon [place] Daughter [phone] Dimas Xavier MD Internal Medicine, PGY-3 #[id number] Gokul Brown MD - 06/28/2017 2:26 PM PSTFormatting of this note may be differen t from the original. 24 Hour Events: --Had near resolved epigastric pain yesterday --Since 8PM, has had increased abd pain --Pending new ABD US S: --Pt reports that he had been feeling near resolved epigastric pain but worsened significan tl overnight to 9, lowest 6-7/10. Had this pain before his [...] management as outpatient (pt prefers facility near [place]) --> if develops post ERCP complications or [...] Prophylaxis:home PPI Glycemic control:SSI MobilityGoal:Bed rest Lines/Tubes/Drains/Airways: RU Collin Mohr - 06/28/2017 7:47 AM PSTFormatting of this note may be different from the original. PHYSICIAN RESEARCH ATTORNEY STUDENT PROGRESS NOTE FOR EDUCATIONAL PURPOSES ONLY [...] Q2H PRN ipratropium-albuterol 3 mL Q6H PRN ltctrqzx-aivdbum-grpevpdz-zinc QID PRN oxyCODONE (immediate release) 2.5-5 mg [...] on klebsiella cultures for sensitivity. Spoke with [facility] at [facility] @1330, N o sensitivity results yet from [...] IV/Airways/Catheters: PIV Code status: FULL DOREEN [facility]nell [facility] Physician Audio Video Repairer Program 06/28/17 Alisha Maynard MD - 06/27/2017 8:26 AM PSTFormatting of this note may be different from th e original. .MICU Attending Note Admission Date: 06/26/2017 Length [...] 86 87 78 HCO3 22 24 23 QPCUN0XYY 24 25 24 C1XNWTEV 96.4 97.0 96.8 FIO2 0.80 0.25 0.21 [...] in the patient's condition). ALISHA MAYNARD MD [facility] [address] [place] [phone] Camilo Arreguin MD - 06/27/2017 6:00 AM PSTFormatting of this note may be different from th carey original. [facility] MEDICAL ICU - PROGRESS NOTE Hospital Day: [...] 6.5 mL/Kg (459.6 mL) RR: 22 bpm Upham BW: 70.7 kg FiO2 21 fraction of [...] 87 78 HCO3 -- 22 24 23 VQX8TRV3 -- 108* 348 371 VBGPH 7.27* -- [...] 3.375 g i ntravenous Q8H Stopped (06/27/17 0411) Current Facility-Administered Medications Medication Dose Route Frequency [...] Decision Maker Primary Surrogate Decision Maker Sharon [place] Daughter [phone] This patient was staffed with Dr. Maynard, attending physician. Camilo Arreguin MD 06/27/2017, 6:01 AM Template created by Rene Hernandes MD - 06/26/2017 4:38 PM PSTBrief GI Proc edure Note 06/26/2017 GI procedure performed. Procedure(s): ERCP [...] 1 month for final duct clearance Rene Maldonado MD Gastroenterology Pager [phone] -Rene Maldonado MD - 06/26/2017 4:38 PM PSTFormatting of this note may be different from the original. PRE PROCEDURE NOTE: MR# [id number] Subjective: William Burns is a 82 y.o. [...] Consent obtained. See procedure note 06/26/2017 Alisha Maynard MD - 06/26/2017 9:10 AM PSTFormatting of this note may be different from carey landin. MICU Attending Note Admission Date: 06/26/2017 Length of stay: 0 days I examined the patient. I agree with the housestaff assessment and plan with the following additions/substractions/clarifications. 24 hour events Presented with abd pain and fever x 4 hours. Concern for choledocholithiasis. Transferred t [facility] this morning. Has history of COPD [...] results for input(s): PH, PCO2, PO2, HCO3, UKQGW4OZM, W9INMBBI, W4AVFTBRY, FIO2 in the l ast 72 hours. [...] in the patient's condition). ALISHA MAYNARD MD [facility] [address] [place] [phone] in this encounter Plan of Treatment Not on fileas of this encounter Procedures + +--------+ + [...] | | + +--------+ + + + in this encounter Results CBC (HEMOGRAM) ONLY (06/29/2017 3:24 AM) + + + + | Component [...] | + + + | Blood | [facility], CORE [address] | | | [place] [address] | + + + MAGNESIUM, PLASMA (06/29/2017 3:24 AM) + +-------+ + | Component | Value | Ref Range | + +-------+ + | MAGNESIUM,PLASMA | 1.9 | 1.6 - 2.6 mg/dL | + +-------+ + + + + | Specimen | Performing Laboratory | + + + | Blood | [facility], CORE [address] | | | [place] [address] | + + + + + | Narrative | + + | Reference range change effective 01/02/17. | + + COMPLETE METABOLIC SET (NA,K,CL,CO2,BUN,CREAT,GLUC,CA,AST,ALT,BILI TOTAL,ALK PHOS,ALB,PROT TOTAL) (06/29/2017 3:24 AM) + +---------+ + | Component | [...] | >60 | >60 mL/min | | SAMOAN | | | + +---------+ + | EGFR NON | >60 | >60 mL/min | | -SAMOAN | | | + +---------+ + | [...] | + + + | Blood | [facility], CORE [address] | | | [place] [address] | + + + + + | [...] | + + CBC ONLY (06/29/2017 3:24 AM) + + + | Specimen | Performing Laboratory | + + + | Blood | | + + + + + | Narrative | + + | The following orders were created for panel order CBC ONLY. | | Procedure | | Abnormality Status | | --------- | | ------ CBC (HEMOGRAM) | | ONLY[[id number]] Abnormal Final | | result Please view results for these tests on the | | individual orders. | + + LIPASE, PLASMA (06/28/2017 11:03 PM) + +--------+ + | Component | Value | Ref Range | + +--------+ + | LIPASE (LAB) | 62 (L) | 152 - 353 U/L | + +--------+ + + + + | Specimen | Performing Laboratory | + + + | Blood | [facility], CORE [address] | | | [place] [address] | + + + US ABDOMEN LIMITED (06/28/2017 11:30 AM) + + + | Specimen | Performing Laboratory | + + + | | [facility] RADIOLOGY VOICE RECOGNITION | + + + [...] Note | + + | Service Account, [employer] In Interface - 06/28/2017 5:02 PM [...] BLOOD GLUCOSE (NO CHG), POC (06/28/2017 6:32 AM) + +---------+ + | Component | Value | Ref Range | + +---------+ + | BLOOD GLUCOSE, POC | 152 (H) | 70 - 99 mg/dL | + +---------+ + + + + | Specimen | Performing Laboratory | + + + | | [facility], POINT OF CARE TESTS [address] | | | [place] [address] | + + + CBC (HEMOGRAM) ONLY (06/28/2017 3:30 AM) + + + + | Component | Value | Ref Range | + + + + | WHITE CELL COUNT | 10.08 | 3.50 - 10.80 K/cu mm | + + + + | RED CELL COUNT | 3.99 (L) | 4.50 - 6.00 M/cu mm | + + + + | HEMOGLOBIN | 12.0 (L) | 13.5 - 17.5 g/dL | + + + + | HEMATOCRIT | 36.5 (L) | 41.0 - 53.0 % | + + + + | MCV | 91.5 | 80.0 - 96.0 fL | + + + + | MCHC | 32.9 | 33.0 - 35.5 g/dL | + + + + | RDW SD | 50.0 (H) | 35.1 - 46.3 fL | + + + + | PLATELET COUNT | 122 (L) | 150 - 400 K/cu mm | + + + + | MPV | 12.2 | 9.7 - 12.3 fL | + + + + | NRBC% | 0.0 | 0.0 - 0.3 % | + + + + | NRBC# | 0.00 | 0.00 - 0.02 K/cu mm | + + + + + + + | Specimen | Performing Laboratory | + + + | Blood | [facility], CORE [address] [place] [address] | | | [place] [address] | + + + CBC ONLY (06/28/2017 3:30 AM) + + + | Specimen | Performing Laboratory | + + + | Blood | | + + + + + | Narrative | + + | The following orders were created for panel order CBC ONLY. | | Procedure | | Abnormality Status | | --------- | | ------ CBC (HEMOGRAM) | | ONLY[[id number]] Abnormal Final | | result Please view results for these tests on the | | individual orders. | + + LIPASE, PLASMA (06/28/2017 3:17 AM) + +--------+ + | Component | Value | Ref Range | + +--------+ + | LIPASE (LAB) | 79 (L) | 152 - 353 U/L | + +--------+ + + + + | Specimen | Performing Laboratory | + + + | Blood | [facility], CORE [address] [place] [address] | | | [place] [address] | + + + COMPLETE METABOLIC SET (NA,K,CL,CO2,BUN,CREAT,GLUC,CA,AST,ALT,BILI TOTAL,ALK PHOS,ALB,PROT TOTAL) (06/28/2017 3:17 AM) + +---------+ + | Component | Value | Ref Range | + +---------+ + | GLUCOSE, PLASMA | 105 (H) | 70 - 99 mg/dL | | (LAB) | | | + +---------+ + | BUN, PLASMA (LAB) | 26 (H) | 6 - 20 mg/dL | + +---------+ + | CREATININE PLASMA | 1.09 | 0.70 - 1.30 mg/dL | | (LAB) | | | + +---------+ + | EGFR - | >60 | >60 mL/min | | SAMOAN | | | + +---------+ + | EGFR NON | >60 | >60 mL/min | | -SAMOAN | | | + +---------+ + | SODIUM, PLASMA (LAB) | 142 | 136 - 145 mmol/L | + +---------+ + | POTASSIUM, PLASMA | 4.2 | 3.4 - 5.0 mmol/L | | (LAB) | | | + +---------+ + | CHLORIDE, PLASMA | 108 | 97 - 108 mmol/L | | (LAB) | | | + +---------+ + | TOTAL CO2, PLASMA | 29 | 21 - 32 mmol/L | | (LAB) | | | + +---------+ + | CALCIUM, PLASMA | 7.7 (L) | 8.6 - 10.2 mg/dL | | (LAB) | | | + +---------+ + | CALCIUM(ALB | 8.7 | 8.6 - 10.2 mg/dL | | CORRECTED) | | | + +---------+ + | BILIRUBIN TOTAL | 1.1 | 0.3 - 1.2 mg/dL | + +---------+ + | TOTAL PROTEIN, | 5.5 (L) | 6.4 - 8.2 g/dL | | PLASMA (LAB) | | | + +---------+ + | ALBUMIN, PLASMA | 2.8 (L) | 3.5 - 4.7 g/dL | | (LAB) | | | + +---------+ + | ALK PHOS | 132 (H) | 56 - 119 U/L | + +---------+ + | AST(SGOT) | 65 (H) | <=41 U/L | + +---------+ + | ALT (SGPT) | 154 (H) | <=60 U/L | + +---------+ [...] + + + | Blood | [facility] [address] | | | [place] [address] | + + + + + | [...] Rapidly changing kidney function | + + MAGNESIUM, PLASMA (06/28/2017 3:17 AM) + +-------+ + | Component | Value | Ref Range | + +-------+ + | MAGNESIUM,PLASMA | 2.2 | 1.6 - 2.6 mg/dL | + +-------+ + + + + | Specimen | Performing Laboratory | + + + | Blood | [facility], CORE [address] | | | [place] [address] | + + + + + | Narrative | + + | Reference range change effective 01/02/17. | + + CAPILLARY BLOOD GLUCOSE (NO CHG), POC (06/27/2017 11:51 PM) + +---------+ + | Component | Value | Ref Range | + +---------+ + | BLOOD GLUCOSE, POC | 141 (H) | 70 - 99 mg/dL | + +---------+ + + + + | Specimen | Performing Laboratory | + + + | | [facility] [place], POINT OF CARE TESTS [address] | | | [place] [address] | + + + X-RAY CHEST 2 VIEW (06/27/2017 9:30 PM) + + + | Specimen | Performing Laboratory | + + + | | [facility] RADIOLOGY VOICE RECOGNITION | + + + [...] Note | + + | Service Account, [email or web address] In Interface - 06/28/2017 10:17 AM PST [...] BLOOD GLUCOSE (NO CHG), POC (06/27/2017 6:43 PM) + +---------+ + | Component | Value | Ref Range | + +---------+ + | BLOOD GLUCOSE, POC | 128 (H) | 70 - 99 mg/dL | + +---------+ + + + + | Specimen | Performing Laboratory | + + + | | [facility], POINT OF CARE TESTS [address] | | | [facility] [place] [address] | + + + CAPILLARY BLOOD GLUCOSE (NO CHG), POC (06/27/2017 1:39 PM) + +---------+ + | Component | Value | Ref Range | + +---------+ + | BLOOD GLUCOSE, POC | 170 (H) | 70 - 99 mg/dL | + +---------+ + + + + | Specimen | Performing Laboratory | + + + | | [facility], POINT OF CARE TESTS [address] | | | [place] [address] | + + + BASIC METABOLIC SET (NA, [...] | >60 | >60 mL/min | | SAMOAN | | | + +---------+ + | EGFR NON | >60 | >60 mL/min | | -SAMOAN | | | + +---------+ + | [...] | + + + | Blood | [facility], CORE [address] | | | [place] [address] | + + + + + | [...] Rapidly changing kidney function | + + CREATININE, URINE (06/27/2017 9:43 [...] + + + | Urine | [facility], CORE [address] | | | [place] [address] | + + + + + | Narrative | + + | Normal values based on 24 hour collection interval. Patient results are calculated | | from actual collection interval and volume. | + + SODIUM TOTAL, URINE (06/27/2017 [...] + + + | Urine | [facility], CORE [address] | | | [place] [address] | + + + + + | Narrative | + + | Normal values based on 24 hour collection interval. Patient results are calculated | | from actual collection interval and volume. | + + CULTURE, BLOOD BACTI & YEAST BETTINA (06/27/2017 8:34 AM) + + + + | Component | Value | Ref Range | + + + + | CULTURE RESULT | Final Report:No Bacteria or Yeast isolated | | | | at 5 days. | | + + + + + + + | Specimen | Performing Laboratory | + + + | Blood | [facility], CORE [address] | | | [place] [address] | + + + CULTURE, BLOOD BACTI & YEAST (06/27/2017 8:34 AM) + + + | Specimen | Performing Laboratory | + + + | Blood | | + + + + + | Narrative | + + | The following orders were created for panel order CULTURE, BLOOD BACTI & YEAST. | | Procedure | | Abnormality Status | | --------- | | ------ CULTURE, BLOOD | | BACTI & Y...[[id number]] Final | | result Please view results for these tests on the | | individual orders. | + + CULTURE, BLOOD BACTI & YEAST ROSENDA (06/27/2017 8:16 AM) + + + + | Component | Value | Ref Range | + + + + | CULTURE RESULT | Final Report:No Bacteria or Yeast isolated | | | | at 5 days. | | + + + + + + + | Specimen | Performing Laboratory | + + + | Blood - Arm - left | [facility], CORE [address] [place] [address] | | | [place] [address] | + + + CULTURE, BLOOD BACTI & YEAST (06/27/2017 8:16 AM) + + + | Specimen | Performing Laboratory | + + + | Blood | | + + + + + | Narrative | + + | The following orders were created for panel order CULTURE, BLOOD BACTI & YEAST. | | Procedure | | Abnormality Status | | --------- | | ------ CULTURE, BLOOD | | BACTI & Y...[[id number]] Final | | result Please view results for these tests on the | | individual orders. | + + CAPILLARY BLOOD GLUCOSE (NO CHG), POC (06/27/2017 8:14 AM) + +---------+ + | Component | Value | Ref Range | + +---------+ + | BLOOD GLUCOSE, POC | 147 (H) | 70 - 99 mg/dL | + +---------+ + + + + | Specimen | Performing Laboratory | + + + | | [facility], POINT OF CARE TESTS [address] | | | [place] [address] | + + + URINE, MICROSCOPIC EXAM (06/27/2017 [...] + + | Urine - Bladder | [facility] [place] [address] | | | [place] [address] | + + + LYNDONBRITTANY ONLY (06/27/2017 7:49 AM) + + + [...] | SPECIFIC GRAVITY | 1.040 (H)Comment: Specific [place] | 1.005 - 1.030 | | | performed by refractometry | | + + + + + + + | Specimen | Performing Laboratory | + + + | Urine - Bladder | [facility], CORE [address] | | | [place] [address] | + + + + + | Narrative | + + | Positive bilirubin dipstick results are not confirmed by an alternate method. | | Suggest serum total bilirubin and/or liver function panel if clinically indicated. | + + ERCP (06/27/2017 6:38 AM) + + + | Specimen | Performing Laboratory | + + + | | [facility] | + + + + + | Narrative | + + | Procedure Date: 06/27/2017 Patient Name: William Burns Order #: | | [id number] Date of : 1935 CSN: [id number] Admit Type: Inpatient Room: [facility] [place] [place] | | Procedure: ERCP Indications: For therapy of | | ascending cholangitis; 82 yo M with sepsis, | | elevated LFTs and US showing mary dil and 1.3 cm | | CBD Providers: RENE Mackay | | MD ERICA (Doctor), JORDY SOLANO, | | RN (Nurse), ESTELA DAMIAN RN (Cutting Table Operator) Referring MD: Requesting | | Provider: Medicines: General Anesthesia, Indomethacin 100 mg DE | | Complications: No immediate complications. Procedure: [...] procedure. The Olympus [id number]-[id number] Duodenoscope | | #[id number] was introduced through the mouth, | | and advanced to the duodenum and used to | | inject contrast into the bile duct. The ERCP | | was accomplished without difficulty. The | | patient tolerated the procedure well. Estimated Blood Loss: Estimated blood | | loss: none. Findings: urgent SOR case for ICU patient with acute cholangitis. | | The compound finisher film was normal. The esophagus was [...] to: DARYL MATHEWS MD | + + IP ENDOSCOPY AFTERHOURS (06/27/2017 6:38 AM) + + + | Specimen | Performing Laboratory | + + + | | [facility] | + + + + + | Narrative | + + | Procedure Date: 06/27/2017 Patient Name: William Burns Order #: | | [id number] Date of : 1935 CSN: [id number] Admit Type: Inpatient Room: [facility] – [place] | | Procedure: ERCP Indications: For therapy of | | ascending cholangitis; 82 yo M with sepsis, | | elevated LFTs and US showing mary dil and 1.3 cm | | CBD Providers: RENE Mackay | | MD ERICA (Doctor), JORDY SOLANO, | | RN (Nurse), ESTELA DAMIAN, RN (Cutting Table Operator) Referring MD: Requesting | | Provider: Medicines: General Anesthesia, Indomethacin 100 mg DE | | Complications: No immediate complications. Procedure: [...] procedure. The Olympus [id number]-[id number] Duodenoscope | | #[id number] was introduced through the mouth, | | and advanced to the duodenum and used to | | inject contrast into the bile duct. The ERCP | | was accomplished without difficulty. The | | patient tolerated the procedure well. Estimated Blood Loss: Estimated blood | | loss: none. Findings: urgent SOR case for ICU patient with acute cholangitis. | | The compound finisher film was normal. The esophagus was [...] remove | | stent and clear duct RENE MALDONADO MD | | 06/27/2017 6:48:17 AM Number of Addenda: 0 Note Initiated On: 06/27/2017 6:38 AM CC | | Letter to: DARYL MATHEWS MD | + + CO-OXIMETER PANEL, BLOOD [...] | + + + | Blood | [facility], CORE [address] [place] [address] | | | [place] [address] | + + + + + | Narrative | + + | Carboxyhemoglobin ranges Nonsmoker: <1.6% | | Smokers (1-2 packs/day): 4-5% Smokers (>2 packs/day): 8-9% | + + MAGNESIUM, PLASMA (06/27/2017 12:43 AM) + +-------+ + | Component | Value | Ref Range | + +-------+ + | MAGNESIUM,PLASMA | 2.3 | 1.6 - 2.6 mg/dL | + +-------+ + + + + | Specimen | Performing Laboratory | + + + | Blood | [facility], CORE [address] | | | [place] [address] | + + + + + | Narrative | + + | Reference range change effective 01/02/17. | + + CBC (HEMOGRAM) ONLY (06/27/2017 12:43 AM) + + + + | Component | Value | Ref Range | + + + + | WHITE CELL COUNT | 14.30 (H) | 3.50 - 10.80 K/cu mm | + + + + | RED CELL COUNT | 3.97 (L) | 4.50 - 6.00 M/cu mm | + + + + | HEMOGLOBIN | 12.0 (L) | 13.5 - 17.5 g/dL | + + + + | HEMATOCRIT | 35.9 (L) | 41.0 - 53.0 % | + + + + | MCV | 90.4 | 80.0 - 96.0 fL | + + + + | MCHC | 33.4 | 33.0 - 35.5 g/dL | + + + + | RDW SD | 49.1 (H) | 35.1 - 46.3 fL | + + + + | PLATELET COUNT | 139 (L) | 150 - 400 K/cu mm | + + + + | MPV | 11.5 | 9.7 - 12.3 fL | + + + + | NRBC% | 0.0 | 0.0 - 0.3 % | + + + + | NRBC# | 0.00 | 0.00 - 0.02 K/cu mm | + + + + + + + | Specimen | Performing Laboratory | + + + | Blood | [facility], CORE [address] [facility] [address] | | | [place] [address] | + + + CBC ONLY (06/27/2017 12:43 AM) + + + | Specimen | Performing Laboratory | + + + | Blood | | + + + + + | Narrative | + + | The following orders were created for panel order CBC ONLY. | | Procedure | | Abnormality Status | | --------- | | ------ CBC (HEMOGRAM) | | ONLY[[id number]] Abnormal Final | | result Please view results for these tests on the | | individual orders. | + + COMPLETE METABOLIC SET (NA,K,CL,CO2,BUN,CREAT,GLUC,CA,AST,ALT,BILI TOTAL,ALK PHOS,ALB,PROT TOTAL) (06/27/2017 12:43 AM) + +---------+ + | Component | Value | Ref Range | + +---------+ + | GLUCOSE, PLASMA | 153 (H) | 70 - 99 mg/dL | | (LAB) | | | + +---------+ + | BUN, PLASMA (LAB) | 23 (H) | 6 - 20 mg/dL | + +---------+ + | CREATININE PLASMA | 0.94 | 0.70 - 1.30 mg/dL | | (LAB) | | | + +---------+ + | EGFR - | >60 | >60 mL/min | | SAMOAN | | | + +---------+ + | EGFR NON | >60 | >60 mL/min | | -SAMOAN | | | + +---------+ + | SODIUM, PLASMA (LAB) | 142 | 136 - 145 mmol/L | + +---------+ + | POTASSIUM, PLASMA | 4.6 | 3.4 - 5.0 mmol/L | | (LAB) | | | + +---------+ + | CHLORIDE, PLASMA | 109 (H) | 97 - 108 mmol/L | | (LAB) | | | + +---------+ + | TOTAL CO2, PLASMA | 24 | 21 - 32 mmol/L | | (LAB) | | | + +---------+ + | CALCIUM, PLASMA | 7.6 (L) | 8.6 - 10.2 mg/dL | | (LAB) | | | + +---------+ + | CALCIUM(ALB | 8.6 | 8.6 - 10.2 mg/dL | | CORRECTED) | | | + +---------+ + | BILIRUBIN TOTAL | 3.7 (H) | 0.3 - 1.2 mg/dL | + +---------+ + | TOTAL PROTEIN, | 5.4 (L) | 6.4 - 8.2 g/dL | | PLASMA (LAB) | | | + +---------+ + | ALBUMIN, PLASMA | 2.8 (L) | 3.5 - 4.7 g/dL | | (LAB) | | | + +---------+ + | ALK PHOS | 157 (H) | 56 - 119 U/L | + +---------+ + | AST(SGOT) | 119 (H) | <=41 U/L | + +---------+ + | ALT (SGPT) | 180 (H) | <=60 U/L | + +---------+ + | ANION GAP | 9 | 4 - 11 mmol/L | + +---------+ + | ANION GAP(ALB | 12 (H) | 4 - 11 mmol/L | | CORRECTED) | | | + +---------+ + | POTASSIUM CMNT | No Hemo | | + +---------+ + | MARYI T CMNT | No Hemo | | + +---------+ + | AST CMNT | No Hemo | | + +---------+ + + + + | Specimen | Performing Laboratory | + + + | Blood | [facility], CORE [address] | | | [place] [address] | + + + + + | Narrative | + + | Adult glucose reference range change effective 7--17. GFR is estimated using the | | [...] Rapidly changing kidney function | + + 12 LEAD ECG (06/27/2017 12:32 AM) + + + + | Component [...] + | ECG IMPRESSION | Borderline prolonged DE interval | | + + + + [...] | ECG IMPRESSION | Electronically signed by: WINDY ROWELL | | | | 06-28-2017 20:53:58 | | + + + + + + + | Specimen | Performing Laboratory | + + + | | [facility] OF CARDIOLOGY [address] [place] [address] | | | [place] [address] | + + + OUTSIDE BODY - READ REQUEST (06/27/2017) + + + | Specimen | Performing Laboratory | + + + | | [facility] RAD[facility] VOICE RECOGNITION | + + + [...] BLOOD GASES, ARTERIAL - LAB (06/26/2017 10:13 PM) + + + + | Component [...] | + + + | Blood | [facility], CORE [address] | | | [place] [address] | + + + CAPILLARY BLOOD GLUCOSE (NO CHG), POC (06/26/2017 9:57 PM) + +---------+ + | Component | Value | Ref Range | + +---------+ + | BLOOD GLUCOSE, POC | 194 (H) | 70 - 99 mg/dL | + +---------+ + + + + | Specimen | Performing Laboratory | + + + | | [facility], POINT OF CARE TESTS [address] | | | [place] [address] | + + + X-RAY ABD LTD FEEDING TUBE EVAL (06/26/2017 8:53 PM) + + + | Specimen | Performing Laboratory | + + + | | [facility] VOICE RECOGNITION | + + + [...] | + + | Service Account, [employer] In Interface - 06/27/2017 9:07 AM PST [...] BLOOD GLUCOSE (NO CHG), POC (06/26/2017 6:21 PM) + +---------+ + | Component | Value | Ref Range | + +---------+ + | BLOOD GLUCOSE, POC | 207 (H) | 70 - 99 mg/dL | + +---------+ + + + + | Specimen | Performing Laboratory | + + + | | [facility] TESTS [address] | | | [place] [address] | + + + 12 LEAD ECG (06/26/2017 5:53 PM) + + + + | Component | Value | Ref Range | + + + + | VENTRICULAR RATE | 47 | bpm | + + + + | ATRIAL RATE | 0 | ms | + + + + | P-R INTERVAL | | ms | + + + + | P AXIS | | deg | + + + + | QRS DURATION | 130 | ms | + + + + | QT | 535 | ms | + + + + | QTCB | 473 | ms | + + + + | R AXIS | 68 | deg | + + + + | T AXIS | 21 | deg | + + + + | ECG IMPRESSION | Junctional rhythm | | + + + + | ECG IMPRESSION | Right bundle branch block- ABNORMAL ECG - | | + + + + | ECG IMPRESSION | Electronically signed by: ASHWINI RUEDA | | | | 06-26-2017 20:11:02 | | + + + + + + + | Specimen | Performing Laboratory | + + + | | [facility] [address] [place] [address] | | | [place] [address] | + + + ONESIMO [place] (06/26/2017 5:10 PM) + + | Narrative | + + | Reid Hu MD,PhD 06/26/2017 9:12 AM ARTERIAL LINE Performed by: | | REID HU Authorized by: ALISHA MAYNARD ART Line Insertion Procedure Note | | Indications: Beat to beat blood pressure monitoring and Frequent lab draws | | Procedure location: Providers: Attending name: Attending physically present: | | No Resident name: Reid Hu Pre-Procedure Consent: written consent not | | obtained Verbal consent not obtained The procedure was performed in an emergent | | situation Patient identity confirmed per policy: Yes Team Pause: Immediatly prior to | | the procedure a pause per protocol was called. A pause verifies correct patient, | | procedure, equipment, landing support specialist and site/side marked as required. [...] | | | | | | Pathology Leatha Fritz MD PhD / | | | [...] Entirely submitted in | | | | A1.(L) | | + + + + + + + | Specimen | Performing Laboratory | + + + | Tissue - Bile duct | [facility] DEPARTMENT OF PATHOLOGY [address] | | | [place] [address] | + + + CVL (06/26/2017 4:21 [...] A pause verifies correct patient, procedure, equipment, landing support specialist and | | site/side marked [...] The modified Seldinger technique (a | | sbrwpasp-odir-ohr-wwimsu-jqpy-[id number]-rfwojec-fpk-ecgevoth) was used for vessel | | cannulation. [...] vasoactive | | medication | + + CALCIUM, IONIZED, WHOLE BLOOD [...] | + + + | Blood | [facility], CORE [address] [place] [address] | | | [place] [address] | + + + CBC (HEMOGRAM) ONLY (06/26/2017 3:39 PM) + + + + | Component | Value | Ref Range | + + + + | WHITE CELL COUNT | 14.41 (H) | 3.50 - 10.80 K/cu mm | + + + + | RED CELL COUNT | 4.17 (L) | 4.50 - 6.00 M/cu mm | + + + + | HEMOGLOBIN | 12.4 (L) | 13.5 - 17.5 g/dL | + + + + | HEMATOCRIT | 37.8 (L) | 41.0 - 53.0 % | + + + + | MCV | 90.6 | 80.0 - 96.0 fL | + + + + | MCHC | 32.8 | 33.0 - 35.5 g/dL | + + + + | RDW SD | 48.2 (H) | 35.1 - 46.3 fL | + + + + | PLATELET COUNT | 127 (L) | 150 - 400 K/cu mm [...] | + + + | Blood | [facility], CORE [address] | | | [place] [address] | + + + LACTATE (06/26/2017 3:39 PM) + +-------+ + | Component | Value | Ref Range | + +-------+ + | LACTATE | 1.3 | mmol/L | + +-------+ + + + + | Specimen | Performing Laboratory | + + + | Blood | [facility], CORE [address] | | | [place] [address] | + + + + + | Narrative | + + | Reference Range: Venous blood:0.5 - 2.2 mmol/L Critical >= 4.0 mmol/L | | Arterial blood:0.5 - 1.6 mmol/L Critical >= 4.0 mmol/L | + + CBC ONLY (06/26/2017 3:39 PM) + + + | Specimen | Performing Laboratory | + + + | Blood | | + + + + + | Narrative | + + | The following orders were created for panel order CBC ONLY. | | Procedure | | Abnormality Status | | --------- | | ------ CBC (HEMOGRAM) | | ONLY[[id number]] Abnormal Final | | result Please view results for these tests on the | | individual orders. | + + TROPONIN I, PLASMA (06/26/2017 3:39 PM) + +-------+ + | Component | Value | Ref Range | + +-------+ + | TROPONIN I | 0.25 | <0.80 ng/mL | + +-------+ + + + + | Specimen | Performing Laboratory | + + + | Blood | [facility], CORE [address] | | | [place] [address] | + + + COMPLETE METABOLIC SET (NA,K,CL,CO2,BUN,CREAT,GLUC,CA,AST,ALT,BILI TOTAL,ALK PHOS,ALB,PROT TOTAL) (06/26/2017 3:39 PM) + +---------+ + | Component | Value | Ref Range | + +---------+ + | GLUCOSE, PLASMA | 195 (H) | 70 - 99 mg/dL | | (LAB) | | | + +---------+ + | BUN, PLASMA (LAB) | 19 | 6 - 20 mg/dL | + +---------+ + | CREATININE PLASMA | 0.85 | 0.70 - 1.30 mg/dL | | (LAB) | | | + +---------+ + | EGFR - | >60 | >60 mL/min | | SAMOAN | | | + +---------+ + | EGFR NON | >60 | >60 mL/min | | -SAMOAN | | | + +---------+ + | SODIUM, PLASMA (LAB) | 140 | 136 - 145 mmol/L | + +---------+ + | POTASSIUM, PLASMA | 4.7 | 3.4 - 5.0 mmol/L | | (LAB) | | | + +---------+ + | CHLORIDE, PLASMA | 110 (H) | 97 - 108 mmol/L | | (LAB) | | | + +---------+ + | TOTAL CO2, PLASMA | 24 | 21 - 32 mmol/L | | (LAB) | | | + +---------+ + | CALCIUM, PLASMA | 7.4 (L) | 8.6 - 10.2 mg/dL | | (LAB) | | | + +---------+ + | CALCIUM(ALB | 8.4 (L) | 8.6 - 10.2 mg/dL | | CORRECTED) | | | + +---------+ + | BILIRUBIN TOTAL | 3.8 (H) | 0.3 - 1.2 mg/dL | + +---------+ + | TOTAL PROTEIN, | 5.4 (L) | 6.4 - 8.2 g/dL | | PLASMA (LAB) | | | + +---------+ + | ALBUMIN, PLASMA | 2.8 (L) | 3.5 - 4.7 g/dL | | (LAB) | | | + +---------+ + | ALK PHOS | 173 (H) | 56 - 119 U/L | + +---------+ + | AST(SGOT) | 144 (H) | <=41 U/L | + +---------+ + | ALT (SGPT) | 197 (H) | <=60 U/L | + +---------+ + | ANION GAP | 6 | 4 - 11 mmol/L | + +---------+ + | ANION GAP(ALB | 9 | 4 - 11 mmol/L | | CORRECTED) | | | + +---------+ + | POTASSIUM CMNT | No Hemo | | + +---------+ + | BILI T CMNT | No Hemo | | + +---------+ + | AST CMNT | No Hemo | | + +---------+ + + + + | Specimen | Performing Laboratory | + + + | Blood | [facility], CORE [address] | | | [place] [address] | + + + + + | [...] Rapidly changing kidney function | + + 12 LEAD ECG (06/26/2017 3:37 PM) + + + + | Component | Value | Ref Range | + + + + | VENTRICULAR RATE | 45 | bpm | + + + + | ATRIAL RATE | 45 | ms | + + + + | P-R INTERVAL | 193 | ms | + + + + | P AXIS | -66 | deg | + + + + | QRS DURATION | 122 | ms | + + + + | QT | 561 | ms | + + + + | QTCB | 486 | ms | + + + + | R AXIS | 82 | deg | + + + + | T AXIS | -10 | deg | + + + + | ECG IMPRESSION | Sinus or ectopic atrial bradycardia | | + + + + | ECG IMPRESSION | Right bundle branch block- ABNORMAL ECG - | | + + + + | ECG IMPRESSION | Electronically signed by: ASHWINI RUEDA | | | | 06-26-2017 16:07:42 | | + + + + + + + | Specimen | Performing Laboratory | + + + | | [facility] [address] [place] [address] | | | [place] [address] | + + + BLOOD GASES, ARTERIAL - LAB (06/26/2017 2:01 PM) + + + + | Component | Value | Ref Range | + + + + | FIO2 ARTERIAL | 0.25 | | + + + + | PH ARTERIAL | 7.33 (L) | 7.37 - 7.44 | + + + + | PCO2 ARTERIAL | 46 (H) | 32 - 43 mmHg | + + + + | PO2 ARTERIAL | 87 | 72 - 104 mmHg | + + + + | HCO3 ARTERIAL | 24 | 21 - 28 mmol/L | + + + + | TOTAL CO2 ARTERIAL | 25 | 22 - 28 mmol/L | + + + + | BASE EXCESS ARTERIAL | -1.8 | mmol/L | + + + + | O2 SAT, ARTERIAL | 97.0 | 92.0 - 98.0 % | + + + + | PAO2/FIO2 RATIO | 348 | >300 mmHg | + + + + + + + | Specimen | Performing Laboratory | + + + | Blood | [facility], CORE [address] [place] [address] | | | [place] [address] | + + + VITAMIN D, 25-HYDROXY, SERUM (06/26/2017 2:01 PM) + +---------+ + | Component | Value | Ref Range | + +---------+ + | VITAMIN D 25 HYDROXY | 8.3 (L) | 30 - 80 ng/mL | + +---------+ + + + + | Specimen | Performing Laboratory | + + + | Blood | [facility], CORE [address] [place] [address] | | | [place] [address] | + + + + + | [...] | + + + | Blood | [facility], CORE [address] | | | [place] [address] | + + + X-RAY ABD LTD FEEDING TUBE EVAL (06/26/2017 11:16 AM) + + + | Specimen | Performing Laboratory | + + + | | [facility] VOICE RECOGNITION | + + + + + | Narrative | + + | INDICATION: Study to evaluate feeding tube position TECHNIQUE: Single AP view | | of the upper abdomen COMPARISON: Plain films performed earlier same day | | FINDINGS/IMPRESSION: Interval removal of the feeding tube seen earlier in the | | esophagus, with placement of a weighted tip feeding tube with the tip and sidehole in | | the gastric body. Tracheal tube and central line are stable in position. I have | | personally reviewed the images and, if necessary, edited the report. I agree with the | | report as now presented. | + + + + | Procedure Note | + + | Service Account, [email or web address] In Interface - 06/26/2017 12:57 PM PST [...] report as now presented. | + + COAGULOPATHY PANEL (INR,APTT,FIBRINOGEN) (06/26/2017 11:13 [...] | + + + | Blood | [facility], CORE [address] | | | [place] [address] | + + + + + | Narrative | + + | INR Therapeutic ranges for full anticoagulation: INR for Venous | | Thromboembolism (2.0 - 3.0) INR INR for most patients with | | mech. valves (2.5 - 3.5) INR APTT Therapeutic | | Range: (75 - 120) sec Heparin levels | | of 0.35 - 0.7 U/mL | + + X-RAY ABD LTD FEEDING TUBE EVAL (06/26/2017 10:03 AM) + + + | Specimen | Performing Laboratory | + + + | | [facility] VOICE RECOGNITION | + + + + + | Narrative | + + | EXAM: ABD LTD FEEDING TUBE EVAL HISTORY: Feeding tube evaluation. | | COMPARISON: Plain films performed earlier same day IMPRESSION: Feeding tube | | terminates in the lower esophagus, near the gastroesophageal junction, with proximal | | sidehole in the midesophagus. Tracheal tube and central catheter are stable in position. | | I have personally reviewed the images and, if necessary, edited the report. I | | agree with the report as now presented. | + + + ----+ | Procedure Note | + ----+ | Service Account, [employer] In Interface - 06/26/2017 12:57 PM [...] report as now presented. | + ----+ X-RAY ABD LTD FEEDING TUBE EVAL (06/26/2017 10:02 AM) + + + | Specimen | Performing Laboratory | + + + | | [facility] VOICE RECOGNITION | + + + + + | Narrative | + + | EXAM: ABD LTD FEEDING TUBE EVAL HISTORY: Feeding tube evaluation. | | COMPARISON: Plain films performed earlier same day. IMPRESSION: Feeding tube | | terminates in the lower esophagus, just above the gastroesophageal junction, with | | proximal sidehole in the midesophagus. Tracheal tube and central catheter are stable in | | position. I have personally reviewed the images and, if necessary, edited the | | report. I agree with the report as now presented. | + + + + | Procedure Note | + + | Service Account, [email or web address] In Interface - 06/26/2017 12:55 PM PST [...] report as now presented. | + + X-RAY ABD LTD FEEDING TUBE EVAL (06/26/2017 10:02 AM) + + + | Specimen | Performing Laboratory | + + + | | [facility] VOICE RECOGNITION | + + + + + | Narrative | + + | EXAM: ABD LTD FEEDING TUBE EVAL HISTORY: Feeding tube evaluation. | | COMPARISON: None. IMPRESSION: Feeding tube terminates in the lower | | esophagus, just above the gastroesophageal junction, with proximal sidehole in the | | midesophagus. I have personally reviewed the images and, [...] report as now presented. | + + X-RAY CHEST 1 VIEW (06/26/2017 10:02 AM) + + + | Specimen | Performing Laboratory | + + + | | [facility] VOICE RECOGNITION | + + + [...] Note | + + | Service Account, [email or web address] In Interface - 06/26/2017 10:12 AM [...] | + + + | Blood | [facility], [facility]SF[facility]ION MEDICINE [address] [place] [address] | | | [place] [address] | + + + ANTIBODY SCREEN (06/26/2017 9:40 AM) + + + + | Component | Value | Ref Range | + + + + | Antibody Screen | Negative | | + + + + + + + | Specimen | Performing Laboratory | + + + | Blood | [facility], [facility]SF[facility] MEDICINE [address] [facility] | | | [place] [address] | + + + ABO & RH TYPE (06/26/2017 9:40 AM) + + + + | Component | Value | Ref Range | + + + + | ABO Group | O | | + + + + | Rh Type | Positive | | + + + + + + + | Specimen | Performing Laboratory | + + + | Blood | [facility], TRANSF[facility]ION MEDICINE [address] [place] [address] | | | [place] [address] | + + + TYPE AND SCREEN [...] | ------ ABO & RH | | TYPE[[id number]] F | | inal result ANTIBODY | | SCREEN[[id number]] Fin | | al result Please view results for these tests on the | | individual orders. | + + 12 LEAD ECG (06/26/2017 9:39 AM) + + + + | Component | Value | Ref Range | + + + + | VENTRICULAR RATE | 76 | bpm | + + + + | ATRIAL RATE | 77 | ms | + + + + | P-R INTERVAL | 223 | ms | + + + + | P AXIS | 13 | deg | + + + + | QRS DURATION | 145 | ms | + + + + | QT | 469 | ms | + + + + | QTCB | 528 | ms | + + + + | R AXIS | 78 | deg | + + + + | T AXIS | 42 | deg | + + + + | ECG IMPRESSION | Sinus rhythm | | + + + + | ECG IMPRESSION | Atrial premature complex | | + + + + | ECG IMPRESSION | Prolonged DE interval | | + + + + | ECG IMPRESSION | Right bundle branch block- ABNORMAL ECG - | | + + + + | ECG IMPRESSION | Electronically signed by: ASHWINI RUEDA | | | | 06-26-2017 11:23:50 | | + + + + + + + | Specimen | Performing Laboratory | + + + | | [facility] [address] [place] [address] | | | [place] [address] | + + + BLOOD CULTURE WORKUP (06/26/2017 9:39 AM) + + + + | Component | Value | Ref Range | + + + + | CULTURE RESULT | Klebsiella oxytoca (A) | | + + + + + + + | Specimen | Performing Laboratory | + + + | Blood - Central line | [facility] [address] [place], [place] | | | [address] | + + + + + | Narrative | + + | Culture Report: Klebsiella oxytjoanna Refer to culture collected 06/26/17 at 0939 for | | susceptibilities Growth in Aerobic bottle Growth in Anaerobic bottle | + + BLOOD CULTURE WORKUP (06/26/2017 9:39 AM) + + + + | Component | Value | Ref Range | + + + + | CULTURE RESULT | Klebsiella oxytoca (A) | | + + + + + + + | Specimen | Performing Laboratory | + + + | Blood - Arterial | [facility] [place] [address] [place], [place] | | line | [address] | + + + + + | Narrative | + + | Culture Report: Klebsiella oxytoca Growth in Aerobic bottle Growth in Anaerobic | | bottle | + + + + + + [...] Sensitive | + + + + + CULTURE, BLOOD BACTI & YEAST BETTINA (06/26/2017 9:39 AM) + + + + | Component | Value | Ref Range | + + + + | CULTURE RESULT | Not tested by molecular method, see culture | | | | report. (AA) | | + + + + | GRAM STAIN | Gram negative bacilli | | + + + + + + + | Specimen | Performing Laboratory | + + + | Blood - Central line | [facility], CORE [address] | | | [place] [address] | + + + + + | Narrative | + + | Growth in Aerobic Bottle. Growth in Anaerobic Bottle. | + + CULTURE, BLOOD BACTI & YEAST (06/26/2017 9:39 AM) + + + | Specimen | Performing Laboratory | + + + | Blood - Central line | | + + + + + | Narrative | + + | The following orders were created for panel order CULTURE, BLOOD BACTI & YEAST. | | Procedure | | Abnormality Status | | --------- | | ------ BLOOD CULTURE | | WORKUP[[id number]] Abnormal Final | | result CULTURE, BLOOD BACTI & | | Y...[[id number]] Abnormal Final result | | Please view results for these tests on the individual orders. | + + RBC MORPHOLOGY (06/26/2017 9:39 [...] | + + + | Blood | [facility], [address] | | | [place] [id number] | + + + MANUAL DIFFERENTIAL (06/26/2017 [...] + + + | Blood | [facility], [address] | | | [place] [address] | + + + + + | [...] in a manual diff. | + + CULTURE, BLOOD BACTI & YEAST BETTINA (06/26/2017 9:39 AM) + + + + | Component | Value | Ref Range | + + + + | CULTURE RESULT | | | + + + + | CULTURE RESULT | Klebsiella oxytoca (AA) | | + + + + | GRAM STAIN | Gram negative bacilli | | + + + + + + + | Specimen | Performing Laboratory | + + + | Blood - Arterial | [facility], [address] [place] [address] | | line | [place] [id number] | + + + + + | Narrative | + + | Growth in Aerobic Bottle. Growth in Anaerobic Bottle. Organism Identified by | | Molecular ID, to be confirmed by culture. | + + CBC AND AUTO DIFF (06/26/2017 [...] | + + + | Blood | [facility], [address] [place] [address] | | | [place] [address] | + + + CULTURE, BLOOD BACTI & YEAST (06/26/2017 9:39 AM) + + + | Specimen | Performing Laboratory | + + + | Blood | | + + + + + | Narrative | + + | The following orders were created for panel order CULTURE, BLOOD BACTI & YEAST. | | Procedure | | Abnormality Status | | --------- | | ------ BLOOD CULTURE | | WORKUP[[id number]] Abnormal Final | | result CULTURE, BLOOD BACTI & | | Y...[[id number]] Abnormal Edited Result - FINAL | | Please view results for these tests on the individual orders. | + + CBC, WITH DIFFERENTIAL (06/26/2017 [...] | ------ CBC AND AUTO | | DIFF[[id number]] Abnormal Final | | result MANUAL | | DIFFERENTIAL[[id number]] Abnormal Final | | result RBC MORPHOLOGY[[id number]] | | Normal Final result Please view | | results for these tests on the individual orders. | + + TROPONIN I, PLASMA (06/26/2017 9:30 AM) + +-------+ + | Component | Value | Ref Range | + +-------+ + | TROPONIN I | 0.33 | <0.80 ng/mL | + +-------+ + + + + | Specimen | Performing Laboratory | + + + | Blood | [facility], [address] | | | [place] [address] | + + + MAGNESIUM, PLASMA (06/26/2017 9:30 AM) + +-------+ + | Component | Value | Ref Range | + +-------+ + | MAGNESIUM,PLASMA | 1.8 | 1.6 - 2.6 mg/dL | + +-------+ + + + + | Specimen | Performing Laboratory | + + + | Blood | [facility], [address] | | | [place] [address] | + + + + + | Narrative | + + | Reference range change effective 01/02/17. | + + COMPLETE METABOLIC SET (NA,K,CL,CO2,BUN,CREAT,GLUC,CA,AST,ALT,BILI TOTAL,ALK PHOS,ALB,PROT TOTAL) (06/26/2017 9:30 AM) + +---------+ + | Component | Value | Ref Range | + +---------+ + | GLUCOSE, PLASMA | 187 (H) | 70 - 99 mg/dL | | (LAB) | | | + +---------+ + | BUN, PLASMA (LAB) | 19 | 6 - 20 mg/dL | + +---------+ + | CREATININE PLASMA | 0.90 | 0.70 - 1.30 mg/dL | | (LAB) | | | + +---------+ + | EGFR - | >60 | >60 mL/min | | SAMOAN | | | + +---------+ + | EGFR NON | >60 | >60 mL/min | | -SAMOAN | | | + +---------+ + | SODIUM, PLASMA (LAB) | 141 | 136 - 145 mmol/L | + +---------+ + | POTASSIUM, PLASMA | 3.4 | 3.4 - 5.0 mmol/L | | (LAB) | | | + +---------+ + | CHLORIDE, PLASMA | 110 (H) | 97 - 108 mmol/L | | (LAB) | | | + +---------+ + | TOTAL CO2, PLASMA | 22 | 21 - 32 mmol/L | | (LAB) | | | + +---------+ + | CALCIUM, PLASMA | 7.0 (L) | 8.6 - 10.2 mg/dL | | (LAB) | | | + +---------+ + | CALCIUM(ALB | 7.9 (L) | 8.6 - 10.2 mg/dL | | CORRECTED) | | | + +---------+ + | BILIRUBIN TOTAL | 4.1 (H) | 0.3 - 1.2 mg/dL | + +---------+ + | TOTAL PROTEIN, | 5.4 (L) | 6.4 - 8.2 g/dL | | PLASMA (LAB) | | | + +---------+ + | ALBUMIN, PLASMA | 2.9 (L) | 3.5 - 4.7 g/dL | | (LAB) | | | + +---------+ + | ALK PHOS | 174 (H) | 56 - 119 U/L | + +---------+ + | AST(SGOT) | 171 (H) | <=41 U/L | + +---------+ + | ALT (SGPT) | 204 (H) | <=60 U/L | + +---------+ + | ANION GAP | 9 | 4 - 11 mmol/L | + +---------+ + | ANION GAP(ALB | 11 | 4 - 11 mmol/L | | CORRECTED) | | | + +---------+ + | POTASSIUM CMNT | No Hemo | | + +---------+ + | MARYI T CMNT | No Hemo | | + +---------+ + | AST CMNT | No Hemo | | + +---------+ + + + + | Specimen | Performing Laboratory | + + + | Blood | [facility] [place] [address] | | | [place] [address] | + + + + + | Narrative | + + | Adult glucose reference range change effective 7-17. GFR is estimated using the | | [...] Rapidly changing kidney function | + + BLOOD GASES, ARTERIAL - LAB (06/26/2017 9:29 AM) + + + + | Component | Value | Ref Range | + + + + | FIO2 ARTERIAL | 0.80 | | + + + + | PH ARTERIAL | 7.31 (L) | 7.37 - 7.44 | + + + + | PCO2 ARTERIAL | 45 (H) | 32 - 43 mmHg | + + + + | PO2 ARTERIAL | 86 | 72 - 104 mmHg | + + + + | HCO3 ARTERIAL | 22 | 21 - 28 mmol/L | + + + + | TOTAL CO2 ARTERIAL | 24 | 22 - 28 mmol/L | + + + + | BASE EXCESS ARTERIAL | -3.5 | mmol/L | + + + + | O2 SAT, ARTERIAL | 96.4 | 92.0 - 98.0 % | + + + + | PAO2/FIO2 RATIO | 108 (L) | >300 mmHg | + + + + + + + | Specimen | Performing Laboratory | + + + | Blood | [facility], [address] | | | [place] [address] | + + + RZ-VB-QYL-HB,POC RT (06/26/2017 8:55 AM) + + + [...] | + + + | Blood | [facility] [address] | | | [place] [address] | + + + LAB REPORTS (06/26/2017)PATHOLOGY (06/26/2017)in this encounter Visit Diagnoses Not on filein this encounter Admitting Diagnoses + + | Diagnosis | + + | Respiratory distress - RESPIRATORY DISTRESS | + + | Other dyspnea and respiratory abnormality | + + Administered Medications + +--------+ +--------+------+------+ | Medication Order | MAR | Action | Dose | Rate | Site | | | Action | Date | | | | + +--------+ +--------+------+------+ | acetaminophen (TYLENOL) tablet | Given | | 650 mg | | | | 650 mg 650 mg, oral, EVERY 6 | | 8 14:04 | | | | | HOURS WHILE AWAKE, First dose on | | PST | | | | | 06/30/17 at 1330, Until | | | | | | | Discontinued | | | | | | + +--------+ +--------+------+------+ +---+---+ | | | +---+---+ + +-------+ +--------+---+---+ | amoxicillin-clavulanate | Given | 06/29/2017 | 500 mg | | | | (AUGMENTIN) 500-125 mg 500 mg | | 20:45 | | | | | 500 mg, oral, THREE TIMES DAILY, | | PST | | | | | 30 doses, First dose on Sun | | | | | | | 06/29/17 at 1600, Last dose on Sun | | | | | | | 07/09/17 at 0900 | | | | | | + +-------+ +--------+---+---+ +-------+ +--------+---+---+ | Given | | 500 mg | | | | | 8 08:06 | | | | | | PST | | | | +-------+ +--------+---+---+ | Given | | 500 mg | | | | | 8 14:04 | | | | | | PST | | | | +-------+ +--------+---+---+ [...] | | | + +---+ + +-------+ +-------+---+ + | enoxaparin (LOVENOX) injection | Given | 06/27/2017 | 40 mg | | Left Arm | | 40 mg 40 mg, subcutaneous, EVERY | | 21:54 | | | | | EVENING, First dose on e | | PST | | | | | 06/26/17 at 2100, Until | | | | | | | Discontinued | | | | | | + +-------+ +-------+---+ + +-------+ +-------+---+---------+ | Given | 06/28/2017 | 40 mg | | Abdomen | | | 21:28 | | | | | | PST | | | | +-------+ +-------+---+---------+ | Given | 06/29/2017 | 40 mg | | Abdomen | | | 20:45 | | | | | | PST | | | | +-------+ +-------+---+---------+ +---+---+ | | | +---+---+ + +-------+ +-------+---+---+ | furosemide (LASIX) tablet 20 mg | Given | 06/28/2017 | 20 mg | | | | 20 mg, oral, DAILY, First dose | | 09:11 | | | | | on Myesha 06/28/17 at 0900, Until | | PST | | | | | Discontinued | | | | | | + +-------+ +-------+---+---+ +-------+ +-------+---+---+ | Given | 06/29/2017 | 20 mg | | | | | 08:10 | | | | | | PST | | | | +-------+ +-------+---+---+ | Given | | 20 mg | | | | | 8 08:06 | | | | | | PST | | | | +-------+ +-------+---+---+ + +---+ | | | + +---+ | HYDROmorphone (DILAUDID) | | | injection 0.1-0.3 mg 0.1-0.3 mg, | | | intravenous, EVERY 2 HOURS | | | NEEDED, Starting [facility] 06/28/17 at | | | 1352, Until 06/30/17 at 2032, | | | for severe break through pain | | + +---+ | | | + +---+ + +-------+ +------+---+---+ | ipratropium-albuterol (DUO-NEB) | Given | 06/27/2017 | 3 mL | | | | nebulizer solution 3 mL 3 mL, | | 20:54 | | | | | inhalation, EVERY 6 HOURS | | PST | | | | | NEEDED, Starting 06/27/17 at | | | | | | | 1415, Until 06/30/17 at 2032, | | | | | | | dyspnea/SOB | | | | | | + +-------+ +------+---+---+ +-------+ +------+---+---+ | Given | 06/29/2017 | 3 mL | | | | | 07:16 | | | | | | PST | | | | +-------+ +------+---+---+ | Given | 06/29/2017 | 3 mL | | | | | 22:21 | | | | | | PST | | | | +-------+ +------+---+---+ +---+---+ | | | +---+---+ + +-------+ +-------+---+---+ | lisinopril (PRINIVIL) tablet 20 | Given | | 20 mg | | | | mg 20 mg, oral, DAILY, First | | 8 10:26 | | | | | dose on 06/30/17 at 0945, | | PST | | | | [...] | omeprazole (PRILOSEC) capsule | Given | 06/28/2017 | 40 mg | | | | 40 mg 40 mg, oral, BEFORE | | 06:38 | | | | | BREAKFAST, First dose on Myesha | | PST | | | | | 06/28/17 at 0630, Until | | | | | | | Discontinued | | | | | | + +-------+ +-------+---+---+ +-------+ +-------+---+---+ | Given | 06/29/2017 | 40 mg | | | | | 06:14 | | | | | | PST | | | | +-------+ +-------+---+---+ | Given | | 40 mg | | | | | 8 06:02 | | | | | | PST | | | | +-------+ +-------+---+---+ +---+---+ | | | +---+---+ + +-------+ +------+---+---+ | oxyCODONE (immediate release) | Given | | 5 mg | | | | (ROXICODONE) tablet 2.5-5 mg | | 8 03:32 | | | | | 2.5-5 mg, oral, EVERY 4 HOURS | | PST | | | | | NEEDED, Starting [facility] 06/28/17 at | | | | | | | 0948, Until 06/30/17 at 2033, | | | | | | | severe pain | | | | | | + +-------+ +------+---+---+ +-------+ +------+---+---+ | Given | | 5 mg | | | | | 8 08:06 | | | | | | PST | | | | +-------+ +------+---+---+ | Given | | 5 mg | | | | | 8 14:06 | | | | | | PST | | | | +-------+ +------+---+---+ +---+---+ | | | +---+---+ + +-------+ +------+---+---+ | polyethylene glycol (MIRALAX) | Given | 06/29/2017 | 17 g | | | | packet 17 g 17 g, oral, DAILY, | | 13:36 | | | | | First dose on Sun06/29/17 at 1215, | | PST | | | | | Until Discontinued | | | | | | + +-------+ +------+---+---+ +-------+ +------+---+---+ | Given | | 17 g | | | | | 8 08:07 | | | | | | PST | | | | +-------+ +------+---+---+ +---+---+ | | | +---+---+ + +-------+ +------+---+---+ | polyethylene glycol (MIRALAX) | Given | | 34 g | | | | packet 34 g 34 g, oral, THREE | | 8 06:10 | | | | | TIMES DAILY NEEDED, Starting | | PST | | | | | Sun06/29/17 at 1026, Until Sat | | | | | | | 06/30/17 at 3, 1st line - for | | | | | | | no BM for 2 days | | | | | | + +-------+ +------+---+---+ +---+---+ | | | +---+---+ + +-------+ +-------+---+---+ | pravastatin (PRAVACHOL) tablet | Given | 06/28/2017 | 10 mg | | | | 10 mg 10 mg, oral, DAILY, First | | 21:28 | | | | | dose on Myes[facility] 06/28/17 at 2100, Until | | PST | | | | | Discontinued | | | | | | + +-------+ +-------+---+---+ +-------+ +-------+---+---+ | Given | 06/29/2017 | 10 mg | | | | | 21:03 | | | | | | PST | | | | +-------+ +-------+---+---+ +---+---+ | | | +---+---+ + + + +---+---+---+ | probiotic yogurt (MECHE'S | Given - | 06/29/2017 | | | | | YOGURT) oral, THREE TIMES DAILY | Food | 08:20 | | | | | WITH MEALS, First dose on Myes[facility] | | PST | | | | | 06/28/17 at 1700, Until | | | | | | | Discontinued | | | | | | + + + +---+---+---+ + + +---+---+---+ | Given - Food | 06/29/2017 | | | | | | 14:44 | | | | | | PST | | | | + + +---+---+---+ | Given - Food | 06/29/2017 | | | | | | 21:01 | | | | | | PST | | | | + + +---+---+---+ +---+---+ | | | +---+---+ + +-------+ +---------+---+---+ | senna-docusate (SENOKOT S) | Given | 06/29/2017 | 2 | | | | 8.6-50 mg 2 tablet 2 tablet, | | 13:36 | tablets | | | | oral, TWICE DAILY, First dose on | | PST | | | | | 06/29/17 at 1215, Until | | | | | | | Discontinued | | | | | | + +-------+ +---------+---+---+ +-------+ +---------+---+---+ | Given | 06/29/2017 | 2 | | | | | 20:45 | tablets | | | | | PST | | | | +-------+ +---------+---+---+ | Given | | 2 | | | | | 8 08:06 | tablets | | | | | PST | | | | +-------+ +---------+---+---+ +---+---+ | | | +---+---+ + +-------+ +-------+---+---+ | simethicone chew (MYLICON) | Given | 06/29/2017 | 80 mg | | | | tablet 80 mg 80 mg, oral, THREE | | 03:44 | | | | | TIMES DAILY NEEDED, Starting | | PST | | | | | Myes[facility] 06/28/17 at 1221, Until Sat | | | | | | | 06/30/17 at 2033, bloating | | | | | | + +-------+ +-------+---+---+ +-------+ +-------+---+---+ | Given | 06/29/2017 | 80 mg | | | | | 20:45 | | | | | | PST | | | | +-------+ +-------+---+---+ | Given | | 80 mg | | | | | 8 10:26 | | | | | | PST | | | | +-------+ +-------+---+---+ +---+---+ | | | +---+---+ + +---------+ +-------+-------+---+ | sodium chloride 0.9% IV | New Bag | | 125 | 125 | | | infusion 125 mL/hr, intravenous, | | 8 10:26 | mL/hr | mL/hr | | | CONTINUOUS, Starting 06/30/17 | | PST | | | | | at 1015, Until 06/30/17 at | | | | | | | 2033 | | | | | | + +---------+ +-------+-------+---+ +---+---+ | | | +---+---+ in this encounter
--- OUTSIDE RECORDS SUMMARY | ~2017-07-16 | XMS | Encounter Summary ---
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
--- OUTSIDE RECORDS SUMMARY | ~2017-07-16 | XMS | Encounter Summary ---
Demographics + + + | Address | [address] | | | [place] [address] | + + + | Home Phone | | + + + | Preferred Language | Unknown | + + + | Marital Status | Single | + + + | Anglican Affiliation [...] Team Providers + +------+ + | Care Travel Physical Therapist Name | Role | Phone | + [...] Physical | Diagnoses | | [facility] | | | | Therapy | Physical | Thea, | [address] | | | | | deconditioni | Virgil Chance MD | [address] | | | | | ng | [address] | Mailcode: | | | | | Procedures | [address] | [facility] | | | | | PHYSICAL | [place] | for Health | | | | | THERAPY | [place], [place] | and Healing, | | | | | REFERRAL | [address] | 1st floor | | | | | | Phone: | [place], [place] | | | | | | [phone] | [address] | | | | | | Fax: | Phone: | | | | | | [phone] | [phone] | | | | | | | Fax: | | | | | | | [phone] | +--------+--------+ + + + + Reason [...] + + | 06/26/ | Hospital | [address] | Alberto Miranda MD | | | 2018 - | Encounter | [place] | [address] | | | | | [address] [facility] | [place], | | | 06/30/ | | [place] [address] | [place] [address] | | | 2017 | | [phone] | [phone] | | | | | | | [...] note may be different from the original. [facility] Discharge Summary Discharging Provider: VIRGIL GRIMM MD [...] and intubated prior to tra nsfer to [facility]. Workup was notable for RUQ U/S with [...] Your Medications These medications were sent to [id number] [id number] [place] [address] [place] [address] Hours: 9AM-7PM MON - FRI / 9AM-6PM [...] Thank you for entrusting your care to [facility] Internal Medicine. If you have any problems or concerns before you are able to follow up with your Primary Care Provider, please call and ask the metal coater operator to page the attending physician, Vic Petty MD, wh o was caring for you at discharge. If that physician is not available, ask the metal coater operator to page the physician production miner for the Medical Teaching Service. Call us right away if any of the following occur: Recurrent abdominal pain Shaking chills or night sweats Other Discharge Orders and Instructions You will be called by the [facility] GI service within the next week to schedule a repeat appoint ment for ERCP and possible stent removal. Home Health Referral after Hospitalization Comments: I certify that this patient is under my care and that I, or Nurse Practitioner or Physician Health Safety Coordinator working with me, had a face to face encounter with this patient on 06/30/2017 On behalf of Attending Physician: Vic Petty MD I am ordering and certify that the following services are medically necessary [facility] Physical Therapy Evaluate and Treat I certify that the patient is homebound based on the following clinical findings Post-hospi tono weakness, decreased strength and endurance, and tires easily with minimal exertion Follow Up: Schedule the following appointment(s) when you get home DARYL MATHEWS MD . Specialty: Internal Medicine Contact information [facility] [address] [place] [address] [address] [facility] [address] Discharge Physical Exam: Last 24 hour min/max [...] (HCC) 12) Acute respiratory failure with hypoxia ([facility]) Please refer to the resident discharge summary for additional details. Vic Petty MD, PhD Clinical Hospitalist and Medicine Teaching Services [facility] Pager [phone] I have spent 35 minutes with the [...] may be different from the original. PHYSICIAN CORPORATE LOGISTICS MANAGER STUDENT PROGRESS NOTE FOR EDUCATIONAL PURPOSES ONLY [...] Q2H PRN ipratropium-albuterol 3 mL Q6H PRN bijbzgcm-muhlpvz-ajitvnmy-zinc QID PRN oxyCODONE (immediate release) 2.5-5 mg [...] IV/Airways/Catheters: PIV Code status: FULL SHAHEEN Oconnell-S [facility] Physician Health Safety Coordinator Program 06/29/17 Vic Petty MD - 06/29/2017 [...] Active Hospital Problems 1) *Septic shock ([facility]) 2) Choledocholithiasis 3) Acute cholangitis 4) Klebsiella sepsis ([facility]) 5) Aspiration pneumonitis ([facility]) 6) S/P ERCP 7) COPD (chronic obstructive pulmonary disease) ([facility]) 8) Essential hypertension 82 year-old man with HTN, COPD not on supplemental oxygen, who presented to OSH with epigas tric pain and abnormal LFTs, admitted for septic shock due to acute cholangitis and acute hy poxic respiratory failure due to aspiration requiring intubation, transferred to [facility] MICU. Here found to have klebsiella bacteremia [...] PhD Clinical Hospitalist and Medicine Teaching Services [facility] Pager [phone] I have spent 26 minutes with the [...] interval not displayed. Micro: BLOOD CULTURE WORKUP [[id number]] (Abnormal) KP LAB Collected: 06/26/17 0939 Lab [...] (HCC) 11) Acute respiratory failure with hypoxia (HCC) Assessment: William Burns is a 82 y.o. [...] Primary Surrogate Decision Maker [place] Daughter [phone] Dimas Xavier MD Internal Medicine, PGY-3 #[id number] Gokul Brown MD - 06/28/2017 2:26 PM PSTFormatting of this note may be differen t from the original. 24 Hour Events: --Had near resolved epigastric pain yesterday --Since 8PM, has had increased abd pain --Pending new ABD US S: --Pt reports that he had been feeling near resolved epigastric pain but worsened significan tl overnight to 01/28, lowest 6-11/27. Had this pain before his 8PM meals [...] management as outpatient (pt prefers facility near [place]) --> if develops post ERCP complications or [...] may be different from the original. PHYSICIAN CORPORATE LOGISTICS MANAGER STUDENT PROGRESS NOTE FOR EDUCATIONAL PURPOSES ONLY [...] Q2H PRN ipratropium-albuterol 3 mL Q6H PRN hzqaxyjj-wmqwsah-vbnxgzul-zinc QID PRN oxyCODONE (immediate release) 2.5-5 mg [...] on klebsiella cultures for sensitivity. Spoke with Speech Therapist at [facility] @1330, N o sensitivity results yet from [...] IV/Airways/Catheters: PIV Code status: FULL DOREEN Oconnell [facility] Physician Health Safety Coordinator Program 06/28/17 Alisha Maynard MD - 06/27/2017 8:26 AM PSTFormatting of this note may be different from bella patino original. .MICU Attending Note Admission Date: 06/26/2017 [...] 86 87 78 HCO3 22 24 23 SYPYV9IRF 24 25 24 F3UKZMVC 96.4 97.0 96.8 FIO2 0.80 0.25 0.21 [...] in the patient's condition). ALISHA MAYNARD MD [facility] [address]A [address] [place] [address] Camilo Arreguin MD - 06/27/2017 6:00 AM PSTFormatting of this note may be different from bella patino original. [facility] MEDICAL ICU - PROGRESS NOTE Hospital Day: [...] 6.5 mL/Kg (459.6 mL) RR: 22 bpm Hilliard BW: 70.7 kg FiO2 21 fraction of [...] 87 78 HCO3 -- 22 24 23 IMH9YGM5 -- 108* 348 371 VBGPH 7.27* -- [...] 3.375 g i ntravenous Q8H Stopped (06/27/17 041) Current Facility-Administered Medications Medication Dose Route Frequency [...] Primary Surrogate Decision Maker [place] Daughter [phone] This patient was staffed with Dr. Maynard, [...] duct clearance Rene Maldonado MD Gastroenterology Pager [phone] -Rene Maldonado MD - 06/26/2017 4:38 PM PSTFormatting of this note may be different from the original. PRE PROCEDURE NOTE: MR# [id number] Subjective: William Burns is a 82 y.o. [...] this note may be different from carey original. MICU Attending Note Admission Date: 06/26/2017 Length of stay: 0 days I examined the patient. I agree with the housestaff assessment and plan with the following additions/substractions/clarifications. 24 hour events Presented with abd pain and fever x 4 hours. Concern for choledocholithiasis. Transferred t [facility] this morning. Has history of COPD [...] results for input(s): PH, PCO2, PO2, HCO3, UGUAY0DWE, O9WATYOV, P4MBRPPAT, FIO2 in the l ast 72 hours. [...] in the patient's condition). ALISHA MAYNARD MD [facility] [address] [place] [address] in this encounter Plan of Treatment Not [...] | + + + | Blood | [facility] LABORATORY SERVICES, CORE [address] [place] [address] | | | [place] [address] | + + + MAGNESIUM, PLASMA (06/29/2017 3:24 AM) + +-------+ + | Component | Value | Ref Range | + +-------+ + | MAGNESIUM,PLASMA | 1.9 | 1.6 - 2.6 mg/dL | + +-------+ + + + + | Specimen | Performing Laboratory | + + + | Blood | [facility] LABORATORY SERVICES, CORE [address] | | | [place] [address] | + + + + + | [...] | >60 | >60 mL/min | | NIGERIAN | | | + +---------+ + | EGFR NON | >60 | >60 mL/min | | -NIGERIAN | | | + +---------+ + | [...] | + + + | Blood | [facility] LABORATORY SERVICES, CORE [address] | | | [place] [address] | + + + + + | [...] | | ------ CBC (HEMOGRAM) | | ONLY[[id number]] Abnormal Final | | result Please view [...] | + + + | Blood | [facility] LABORATORY SERVICES, CORE [address] | | | [place] [address] | + + + US ABDOMEN LIMITED (06/28/2017 11:30 AM) + + + | Specimen | Performing Laboratory | + + + | | [facility] RADIOLOGY VOICE RECOGNITION | + + + [...] Note | + + | Service Account, iLinc Res In Interface - 06/28/2017 5:02 PM [...] [address] | | | [place] [address] | + + + CBC (HEMOGRAM) ONLY [...] | + + + | Blood | [facility] LABORATORY SERVICES, CORE [address] [place] [address] | | | [place] [address] | + + + CBC ONLY (06/28/2017 3:30 AM) + + + | Specimen | Performing Laboratory | + + + | Blood | | + + + + + | Narrative | + + | The following orders were created for panel order CBC ONLY. | | Procedure | | Abnormality Status | | --------- | | ------ CBC (HEMOGRAM) | | ONLY[[id number]] Abnormal Final | | result Please view [...] | + + + | Blood | [facility] LABORATORY SERVICES, CORE [address] | | | [place] [address] | + + + COMPLETE METABOLIC SET [...] | >60 | >60 mL/min | | NIGERIAN | | | + +---------+ + | EGFR NON | >60 | >60 mL/min | | -NIGERIAN | | | + +---------+ + | [...] | + + + | Blood | [facility] LABORATORY SERVICES, CORE [address] | | | [place] [address] | + + + + + | Narrative | + + | Adult glucose reference range change effective 712-17. GFR is estimated using the | | [...] | + + + | Blood | [facility] SERVICES, CORE [address] | | | [place] [address] | + + + + + | [...] AMADOU TURNER, POINT OF CARE TESTS [address] | | | [place] [address] | + + + X-RAY CHEST 2 VIEW (06/27/2017 9:30 PM) + + + | Specimen | Performing Laboratory | + + + | | [facility] RADIOLOGY VOICE RECOGNITION | + + + [...] Note | + + | Service Account, iLinc Res In Interface - 06/28/2017 10:17 AM [...] + | | BETTINA TURNER POINT OF CARE TESTS [facility] [address] | | | [place] [address] | + + + CAPILLARY BLOOD GLUCOSE [...] [address] | | | [place] [address] | + + + BASIC METABOLIC SET [...] | >60 | >60 mL/min | | NIGERIAN | | | + +---------+ + | EGFR NON | >60 | >60 mL/min | | -NIGERIAN | | | + +---------+ + | [...] | + + + | Blood | [facility] LABORATORY [facility], CORE [address] | | | [place] [address] | + + + + + | [...] | + + + | Urine | [facility], CORE [address] | | | [place] [address] | + + + + + | [...] | + + + | Urine | [facility], CORE [address] | | | [place] [address] | + + + + + | Narrative | + + | Normal values based on 24 hour collection interval. Patient results are calculated | | from actual collection interval and volume. | + + CULTURE, BLOOD BACTI & YEAST ROSENDAMARYCARMEN (06/27/2017 8:34 AM) + + + + | Component | Value | Ref Range | + + + + | CULTURE RESULT | Final Report:No Bacteria or Yeast isolated | | | | at 5 days. | | + + + + + + + | Specimen | Performing Laboratory | + + + | Blood | [facility] LABORATORY SERVICES, CORE [address] | | | [place] [address] | + + + CULTURE, BLOOD BACTI [...] ------ CULTURE, BLOOD | | BACTI & Y...[[id number]] Final | | result Please view results for these tests on the | | individual orders. | + + CULTURE, BLOOD BACTI & YEAST ROSENDAMARYCARMEN (06/27/2017 8:16 AM) + + + + | Component | Value | Ref Range | + + + + | CULTURE RESULT | Final Report:No Bacteria or Yeast isolated | | | | at 5 days. | | + + + + + + + | Specimen | Performing Laboratory | + + + | Blood - Arm - left | [facility] LABORATORY SERVICES, CORE [address] | | | [place] [address] | + + + CULTURE, BLOOD BACTI [...] ------ CULTURE, BLOOD | | BACTI & Y...[[id number]] Final | | result Please view results [...] [address] | | | [place] [address] | + + + URINE, MICROSCOPIC EXAM [...] + + | Urine - Bladder | [facility] LABORATORY SERVICES, CORE [address] | | | [place] [address] | + + + UA, DIPSTICK ONLY (06/27/2017 7:49 [...] | SPECIFIC GRAVITY | 1.040 (H)Comment: Specific [place] | 1.005 - 1.030 | | | performed by refractometry | | + + + + + + + | Specimen | Performing Laboratory | + + + | Urine - Bladder | [facility], CORE [address] | | | [place] [address] | + + + + + | [...] Name: William Burns Order #: | | [id number] Date of : 1935 CSN: [id number] Admit Type: Inpatient [place]: [facility] | | Procedure: ERCP Indications: For therapy of | | ascending cholangitis; 82 yo M with sepsis, | | elevated LFTs and US showing mary dil and 1.3 cm | | CBD Providers: RENE Mackay | | MD ERICA (Doctor), JORDY SOLANO, | | RN (Nurse), ESTELA DAMIAN, RN (Mid Level Game Designer) Referring MD: Requesting | | Provider: Medicines: [...] procedure. The Olympus TJF-Q180V Duodenoscope | | #[id number] was introduced through the mouth, | | and advanced to the duodenum and used to | | inject contrast into the bile duct. The ERCP | | was accomplished without difficulty. The | | patient tolerated the procedure well. Estimated Blood Loss: Estimated blood | | loss: none. Findings: urgent SOR case for ICU patient with acute cholangitis. | | The scanning coordinator film was normal. The esophagus was successfully [...] Name: William Burns Order #: | | [id number] Date of : 1935 CSN: [id number] Admit Type: Inpatient Room: [facility] | | Procedure: ERCP Indications: For therapy of | | ascending cholangitis; 82 yo M with sepsis, | | elevated LFTs and US showing mary dil and 1.3 cm | | CBD Providers: RENE Mackay | | MD ERICA (Doctor), JORDY SOLANO, | | RN (Nurse), ESTELA DAMIAN, RN (Mid Level Game Designer) Referring MD: Requesting | | Provider: Medicines: [...] procedure. The Olympus TJF-Q180V Duodenoscope | | #[id number] was introduced through the mouth, | | and advanced to the duodenum and used to | | inject contrast into the bile duct. The ERCP | | was accomplished without difficulty. The | | patient tolerated the procedure well. Estimated Blood Loss: Estimated blood | | loss: none. Findings: urgent SOR case for ICU patient with acute cholangitis. | | The scanning coordinator film was normal. The esophagus was successfully [...] | + + + | Blood | [facility], CORE [address] [place] [address] | | | [place] [address] | + + + + + | [...] | + + + | Blood | [facility] LABORATORY [facility], CORE [address] | | | [place] [address] | + + + + + | [...] | + + + | Blood | [facility] LABORATORY SERVICES, CORE [address] [place] [address] | | | [place], [place] [address] | + + + CBC ONLY (06/27/2017 12:43 AM) + + + | Specimen | Performing Laboratory | + + + | Blood | | + + + + + | Narrative | + + | The following orders were created for panel order CBC ONLY. | | Procedure | | Abnormality Status | | --------- | | ------ CBC (HEMOGRAM) | | ONLY[[id number]] Abnormal Final | | result Please view [...] | >60 | >60 mL/min | | NIGERIAN | | | + +---------+ + | EGFR NON | >60 | >60 mL/min | | -NIGERIAN | | | + +---------+ + | [...] | + + + | Blood | [facility] LABORATORY [facility], CORE [address] | | | [place] [address] | + + + + + | [...] Laboratory | + + + | | [facility] [address] [place] [address] | | | [place] [address] | + + + OUTSIDE BODY - READ REQUEST (06/27/2017) + + + | Specimen | Performing Laboratory | + + + | | [facility] RADIOLOGY VOICE RECOGNITION | + + + [...] Note | + --------+ | Service Account, iLinc Res In Interface - 06/28/2017 9:20 AM [...] | + + + | Blood | [facility] LABORATORY SERVICES, CORE [address] [facility] | | | [place] [address] | + + + CAPILLARY BLOOD GLUCOSE (NO CHG), POC (06/26/2017 9:57 PM) + +---------+ + | Component | Value | Ref Range | + +---------+ + | BLOOD GLUCOSE, POC | 194 (H) | 70 - 99 mg/dL | + +---------+ + + + + | Specimen | Performing Laboratory | + + + | | VAM[facility]EN TURNER, POINT OF CARE TESTS [address] [facility] | | | [place] [address] | + + + X-RAY ABD LTD FEEDING TUBE EVAL (06/26/2017 8:53 PM) + + + | Specimen | Performing Laboratory | + + + | | [facility] RADIOLOGY VOICE RECOGNITION | + + + [...] Service Account, Shana Res In Interface - 06/27/2017 9:07 AM [...] [address] | | | [place] [address] | + + + 12 LEAD ECG [...] Laboratory | + + + | | [facility] [address] [place] [address] | | | [place] [address] | + + + ART LINE (06/26/2017 5:10 PM) [...] verifies correct patient, | | procedure, equipment, administrative support technician and site/side marked as required. CLABSI | [...] + | Tissue - Bile duct | [facility] DEPARTMENT OF PATHOLOGY [address] [place] [address] | | | [place] [address] | + + + CVL (06/26/2017 4:21 [...] A pause verifies correct patient, procedure, equipment, administrative support technician and | | site/side marked as required. [...] The modified Seldinger technique (a | | lueqdafm-upvk-yiq-hyucgy-xqjw-cbhu-vcdavlo-mzz-kogpxvpl) was used for vessel | | cannulation. [...] | + + + | Blood | [facility] LABORATORY SERVICES, CORE [address] [place] [address] | | | [place] [address] | + + + CBC (HEMOGRAM) ONLY [...] | + + + | Blood | [facility] LABORATORY SERVICES, CORE [address] | | | [place] [address] | + + + LACTATE (06/26/2017 3:39 PM) + +-------+ + | Component | Value | Ref Range | + +-------+ + | LACTATE | 1.3 | mmol/L | + +-------+ + + + + | Specimen | Performing Laboratory | + + + | Blood | [facility] LABORATORY SERVICES, CORE [address] | | | [place] [address] | + + + + + | [...] | | ------ CBC (HEMOGRAM) | | ONLY[[id number]] Abnormal Final | | result Please view [...] | + + + | Blood | [facility] LABORATORY SERVICES, CORE [address] | | | [place] [address] | + + + COMPLETE METABOLIC SET [...] | >60 | >60 mL/min | | NIGERIAN | | | + +---------+ + | EGFR NON | >60 | >60 mL/min | | -NIGERIAN | | | + +---------+ + | [...] | + + + | Blood | [facility] LABORATORY SERVICES, CORE [address] | | | [place] [address] | + + + + + | [...] Laboratory | + + + | | [facility] [address] [place] [address] | | | [place] [address] | + + + BLOOD GASES, ARTERIAL [...] | + + + | Blood | [facility] LABORATORY SERVICES, CORE [address] | | | [place], [place] [address] | + + + VITAMIN D, 25-HYDROXY, SERUM (06/26/2017 2:01 PM) + +---------+ + | Component | Value | Ref Range | + +---------+ + | VITAMIN D 25 HYDROXY | 8.3 (L) | 30 - 80 ng/mL | + +---------+ + + + + | Specimen | Performing Laboratory | + + + | Blood | [facility], CORE [address] [place] [address] | | | [place] [address] | + + + + + | [...] | + + + | Blood | [facility] LABORATORY SERVICES, CORE [address] [place] [address] | | | [place] [address] | + + + X-RAY ABD LTD FEEDING TUBE EVAL (06/26/2017 11:16 AM) + + + | Specimen | Performing Laboratory | + + + | | [facility] RADIOLOGY VOICE RECOGNITION | + + + [...] Note | + + | Service Account, Tivity In Interface - 06/26/2017 12:57 PM PST [...] | + + + | Blood | [facility] LABORATORY SERVICES, CORE [address] | | | [place] [address] | + + + + + | [...] as now presented. | + ----+ X-RAY BRUNO LTD FEEDING TUBE EVAL (06/26/2017 10:02 AM) [...] Note | + + | Service Account, iLinc Res In Interface - 06/26/2017 12:55 PM [...] Note | + + | Service Account, iLinc Res In Interface - 06/26/2017 12:53 PM [...] Laboratory | + + + | | [facility] RADIOLOGY VOICE RECOGNITION | + + + [...] | + + + | Blood | [facility] LABORATORY SERVICES, TRANSFUSION MEDICINE [address] [place] [address] | | | [place] [address] | + + + ANTIBODY SCREEN (06/26/2017 9:40 AM) + + + + | Component | Value | Ref Range | + + + + | Antibody Screen | Negative | | + + + + + + + | Specimen | Performing Laboratory | + + + | Blood | [facility] LABORATORY SERVICES, TRANSFUSION MEDICINE [address] [facility] | | | [address] [place] [address] | + + + ABO & RH [...] | + + + | Blood | [facility] SERVICES, TRANSFUSION MEDICINE [address] [facility] | | | [place] [address] | + + + TYPE AND SCREEN [...] | ------ ABO & RH | | TYPE[[id number]] F | | inal result ANTIBODY | | SCREEN[[id number]] Fin | | al result Please view [...] + + | ECG IMPRESSION | Prolonged KS interval | | + + + + | ECG IMPRESSION | Right bundle branch block- ABNORMAL ECG - | | + + + + | ECG IMPRESSION | Electronically signed by: ASHWINI RUEDA | | | | 06-26-2017 11:23:50 | | + + + + + + + | Specimen | Performing Laboratory | + + + | | [facility] [address] [place] [address] | | | [place] [address] | + + + BLOOD CULTURE WORKUP (06/26/2017 9:39 AM) + + + + | Component | Value | Ref Range | + + + + | CULTURE RESULT | Klebsiella oxytoca (A) | | + + + + + + + | Specimen | Performing Laboratory | + + + | Blood - Central line | [facility] [address] [place] [address] | | | [address] | + + + + + | [...] + + | Blood - Arterial | [facility] [place] [address] [place], [place] | | line | [address] | + + + + + | [...] + | Blood - Central line | [facility] LABORATORY SERVICES, CORE [address] [facility] | | | [place] [address] | + + + + + | [...] | | ------ BLOOD CULTURE | | WORKUP[[id number]] Abnormal Final | | result CULTURE, BLOOD BACTI & | | Y...[[id number]] Abnormal Final result | | Please view [...] | + + + | Blood | [facility]ATORY SERVICES, [facility] [address] | | | [place] [address] | + + + MANUAL DIFFERENTIAL (06/26/2017 [...] | + + + | Blood | [facility], [facility] [address] | | | [place] [address] | + + + + + | [...] + + | Blood - Arterial | [facility] [facility], CORE [address] | | line | [place] [address] | + + + + + | [...] | + + + | Blood | [facility], CORE [address] [place] [address] | | | [place] [address] | + + + CULTURE, BLOOD BACTI [...] | | ------ BLOOD CULTURE | | WORKUP[[id number]] Abnormal Final | | result CULTURE, BLOOD BACTI & | | Y...[[id number]] Abnormal Edited Result - FINAL | | [...] | ------ CBC AND AUTO | | DIFF[[id number]] Abnormal Final | | result MANUAL | | DIFFERENTIAL[[id number]] Abnormal Final | | result RBC MORPHOLOGY[[id number]] | | Normal Final result Please view [...] | + + + | Blood | [facility], CORE [address] | | | [place] [address] | + + + MAGNESIUM, PLASMA (06/26/2017 9:30 AM) + +-------+ + | Component | Value | Ref Range | + +-------+ + | MAGNESIUM,PLASMA | 1.8 | 1.6 - 2.6 mg/dL | + +-------+ + + + + | Specimen | Performing Laboratory | + + + | Blood | [facility], CORE [address] [facility] | | | [place] [address] | + + + + + | [...] | >60 | >60 mL/min | | NIGERIAN | | | + +---------+ + | EGFR NON | >60 | >60 mL/min | | -NIGERIAN | | | + +---------+ + | [...] | + + + | Blood | [facility] [place] [address] | | | [place] [address] | + + + + + | [...] | + + + | Blood | [facility], CORE [address] [facility] | | | [place] [address] | + + + HT-EB-VTB-HB,POC RT (06/26/2017 8:55 AM) + + + [...] | + + + | Blood | BETTINA TURNER, [facility] [address] | | | [place] [address] | + + + LAB REPORTS (06/26/2017)PATHOLOGY (06/26/2017)in this encounter Visit Diagnoses + + | Diagnosis | + + | Septic shock (HCC) - Primary | + + | Choledocholithiasis | + + | Calculus of bile duct without mention of cholecystitis or obstruction | + + | Dyspnea, unspecified type | + + | Physical deconditioning | + + | Debility, unspecified | + + | Acute cholangitis | + + | Cholangitis | + + | Klebsiella sepsis (HCC) | + + | Klebsiella pneumoniae | + + | Non-ST elevation myocardial infarction (NSTEMI), type 2 (HCC) | + + | Aspiration pneumonitis (HCC) | + + | Pneumonitis due to inhalation of food or vomitus | + + | S/P ERCP | + + | Personal history of surgery to other organs | + + | Acute respiratory failure with hypoxia (HCC) | + + | Acute respiratory failure | + + | COPD (chronic obstructive pulmonary disease) (HCC) | + + | Chronic airway obstruction, not elsewhere classified | + + | Essential hypertension | + + Admitting Diagnoses + + | Diagnosis | [...] | acetaminophen (TYLENOL) tablet | Given | 06/26/2017 | 650 mg | | | | 650 mg 650 mg, feeding tube, | | 12:11 | | | | | THREE TIMES DAILY, First dose on | | PST | | | | | 06/26/17 at 1145, Until | | | | | | | Discontinued | | | | | | + +--------+ +--------+------+------+ +-------+ +--------+---+---+ | Given | 06/26/2017 | 650 mg | | | | | 21:41 | | | | | | PST | | | | +-------+ +--------+---+---+ +---+---+ | | | +---+---+ + +-------+ +--------+---+---+ | acetaminophen (TYLENOL) tablet | Given | 06/28/2017 | 650 mg | | | | 650 mg 650 mg, oral, THREE TIMES | | 15:54 | | | | | DAILY, First dose on Myesha 06/28/17 | | PST | | | | | at 0130, Until Discontinued | | | | | | + +-------+ +--------+---+---+ +-------+ +--------+---+---+ | Given | 06/28/2017 | 650 mg | | | | | 21:28 | | | | | | PST | | | | +-------+ +--------+---+---+ | Given | 06/29/2017 | 650 mg | | | | | 08:10 | | | | | | PST | | | | +-------+ +--------+---+---+ +---+---+ | | | +---+---+ + +-------+ +--------+---+---+ | acetaminophen (TYLENOL) tablet | Given | 06/29/2017 | 650 mg | | | | 650 mg 650 mg, oral, THREE TIMES | | 13:36 | | | | | DAILY NEEDED, Starting Fri | | PST | | | | | 06/29/17 at 0830, Until 06/30/17 | | | | | | | at 1137, multimodal pain control | | | | | | + +-------+ +--------+---+---+ +-------+ +--------+---+---+ | Given | 06/29/2017 | 650 mg | | | | | 23:30 | | | | | | PST | | | | +-------+ +--------+---+---+ | Given | | 650 mg | | | | | 8 [...] 1 g in | New Bag | 06/26/2017 | 1 g | | | | dextrose 5 % IV 1 g, | | 17:46 | | | | | intravenous, ONCE, 1 dose, Tue | | PST | | | | | 06/26/17 at 1715 | | | | | | + +---------+ +-----+---+---+ +---+---+ | | | +---+---+ + +-------+ +-------+---+---+ | chlorhexidine (PERIDEX) | Given | 06/26/2017 | 15 mL | | | | mouthwash 15 mL 15 mL, oral, | | 14:16 | | | | | EVERY 6 HOURS, First dose on Tue | | PST | | | | | 06/26/17 at 1130, Until | | | | | | | Discontinued | | | | | | + +-------+ +-------+---+---+ +-------+ +-------+---+---+ | Given | 06/26/2017 | 15 mL | | | | | 21:41 | | | | | | PST | | | | +-------+ +-------+---+---+ | Given | 06/27/2017 | 15 mL | | | | | 04:11 | | | | | | PST | | | | +-------+ +-------+---+---+ +---+---+ | | | +---+---+ + +-------+ +-------+---+ + | enoxaparin (LOVENOX) [...] +-------+---+---------+ +---+---+ | | | +---+---+ + +---------+ + +-------+---+ | esmolol (BREVIBLOC) 2500 mg/250 | New Bag | 06/26/2017 | 50 | 26.4 | | | mL (10 mg/mL) in NS IV infusion | | 09:00 | mcg/kg/m | mL/hr | | | (RTU) 50-200 mcg/kg/min | | PST | in | | | | 88 kg Order-specific weight | | | | | | | (26.4-105.6 mL/hr), intravenous, | | | | | | | CONTINUOUS, Starting 06/26/17 | | | | | | | at 0930, Until e 06/26/17 at 1848 | | | | | | + +---------+ + +-------+---+ +---+---+ | | | +---+---+ + +-------+ + +---+---+ | esmolol (BREVIBLOC) IV infusion | Given | 06/26/2017 | 50 | | | | 1 dose, Starting 06/26/17 at | | 09:25 | mcg/kg/m | | | | 0848, Until 06/26/17 at 0925 | | PST | in | | [...] 2 HOURS | | | NEEDED, Starting [facility] 06/28/17 at | | | 1352, Until 06/30/17 at 2032, | | | for severe break through pain | | + +---+ | | | + +---+ + +-------+ +--------+---+---+ | HYDROmorphone (DILAUDID) | Given | 06/26/2017 | 0.1 mg | | | | injection 0.1-0.5 mg 0.1-0.5 mg, | | 23:14 | | | | | intravenous, EVERY 2 HOURS | | PST | | | | | NEEDED, Starting 06/26/17 at | | | | | | | 2258, Until 06/27/17 at 0205, | | | | | | | for RR >30, reported dyspnea, or | | | | | | | moderate pain | | | | | | + +-------+ +--------+---+---+ +---+---+ | | | +---+---+ + +-------+ +--------+---+---+ | indomethacin (INDOCIN) | Given | 06/26/2017 | 100 mg | | | | suppository 100 mg 100 mg, | | 16:30 | | | | | rectal, ONCE, 1 dose, 06/26/17 | | PST | | | | | at 1615 | | | | | | + +-------+ +--------+---+---+ +---+---+ | | | +---+---+ + +-------+ +---------+---+ + | insulin lispro (HUMALOG) | Given | 06/27/2017 | 1 Units | | Left Arm | | injection subcutaneous, FOUR | | 13:48 | | | | | TIMES DAILY, First dose on e | | PST | | | | | 06/26/17 at 1845, Until | | | | | | | Discontinued | | | | | | + +-------+ +---------+---+ + +-------+ +---------+---+ + | Given | 06/28/2017 | 1 Units | | Left Arm | | | 00:00 | | | | | | PST | | | | +-------+ +---------+---+ + | Given | 06/28/2017 | 1 Units | | Left Arm | | | 06:38 | | | | | | PST | | | | +-------+ +---------+---+ + +---+---+ | | | +---+---+ + +-------+ +------+---+---+ | iohexol (OMNIPAQUE) 300 mg | Given | 06/26/2017 | 8 mL | | | | iodine/mL INTRAPROCEDURE PRN, | | 16:35 | | | | | Starting 06/26/18 at 1635, | | PST | | | | | Until Discontinued | | | | | | + +-------+ +------+---+---+ +---+---+ | | | +---+---+ + +-------+ +------+---+---+ | ipratropium-albuterol (DUO-NEB) | Given | 06/26/2017 | 3 mL | | | | nebulizer solution 3 mL 3 mL, | | 21:34 | | | | | inhalation, EVERY 6 HOURS, First | | PST | | | | | dose on e 06/26/17 at 1115, Until | | | | | | | Discontinued | | | | | | + +-------+ +------+---+---+ +-------+ +------+---+---+ | Given | 06/27/2017 | 3 mL | | | | | 03:00 | | | | | | PST | | | | +-------+ +------+---+---+ | Given | 06/27/2017 | 3 mL | | | | | 10:50 | | | | | | PST [...] IV 500 mL, | New Bag | 06/26/2017 | 500 mL | | | | intravenous, ONCE, 1 dose, Tue | | 09:51 | | | | | 06/26/17 at 1000 | | PST | | | | + +---------+ +--------+---+---+ +---+---+ | | | +---+---+ + +---------+ + +---+---+ | lactated Ringers IV 1,000 mL, | New Bag | 06/26/2017 | 1,000 mL | | | | intravenous, ONCE, 1 dose, Tue | | 09:51 | | | | | 06/26/17 at 1030 | | PST | | | | + +---------+ + +---+---+ +---+---+ | | | +---+---+ + +---------+ +--------+---+---+ | lactated Ringers IV 500 mL, | New Bag | 06/26/2017 | 500 mL | | | | intravenous, ONCE, 1 dose, Tue | | 19:14 | | | | | 06/26/17 at 1930 | | PST | | | | + +---------+ +--------+---+---+ +---+---+ | | | +---+---+ + +---------+ + +---+---+ | lactated Ringers IV 1,000 mL, | New Bag | 06/26/2017 | 1,000 mL | | | | intravenous, ONCE, 1 dose, Tue | | 21:41 | | | | | 06/26/17 at 2145 | | PST | | | | + +---------+ + +---+---+ +---+---+ | | | +---+---+ + +---------+ + +---+---+ | lactated Ringers IV 1,000 mL, | New Bag | 06/27/2017 | 1,000 mL | | | | intravenous, ONCE, 1 dose, Wed | | 04:45 | | | | | 06/27/17 at 0515 | | PST | | | | + +---------+ [...] in water IV | New Bag | 06/26/2017 | 2 g | | | | (RTU) 2 g 2 g, intravenous, | | 10:01 | | | | | ONCE, 1 dose, 06/26/17 at 0945 | | PST | | | | + +---------+ [...] oil (FLEET MINERAL OIL) | Pt | | 133 mL | | | | rectal enema 133 mL 133 mL, | Administ | 8 12:17 | | | | | rectal, ONCE, 1 dose, 06/30/17 | ered | PST | | | | | [...] +-------+---+ | norepinephrine (LEVOPHED) | Rate/Dos | 06/26/2017 | 0.06 | 9.9 | | | 8mg/250 mL (0.032 mg/mL) IV | e Change | 09:51 | mcg/kg/m | mL/hr | | | infusion (RTU) 0.02-0.2 | | PST | in | | | | mcg/kg/min | | | | | | | 88 kg Order-specific weight | | | | | | | (3.3-33 mL/hr), intravenous, | | | | | | | CONTINUOUS, Starting Sun06/26/17 | | | | | | | at 0915, Until Sun06/26/17 at 1041 | | | | | | + + + + +-------+---+ + + + +-------+---+ | Rate/Dose Change | 06/26/2017 | 0.04 | 6.6 | | | | 10:01 | mcg/kg/m | mL/hr | | | | PST | in | | | + + + +-------+---+ | Restarted | 06/26/2017 | 0.02 | 3.3 | | | | 10:15 | mcg/kg/m | mL/hr | | [...] | omeprazole (PRILOSEC) oral | Given | 06/27/2017 | 40 mg | | | | suspension (compound) 40 mg 40 | | 05:24 | | | | | mg, feeding tube, BEFORE | | PST | | | | | BREAKFAST, First dose on Sun | | | [...] +---+---+ | | | +---+---+ + +---------+ +---------+---+---+ | piperacillin-tazobactam (ZOSYN) | New Bag | 06/28/2017 | 3.375 g | | | | 3.375 g in NaCl 0.9 % 50 mL IV | | 14:30 | | | | | (ADD-vantage) 3.375 g, | | PST | | | | | intravenous, EVERY 8 HOURS, First | | | | | | | dose on Sun06/26/17 at 1500, | | | | | | | Until Discontinued | | | | | | + +---------+ +---------+---+---+ +---------+ +---------+-------+---+ | New Bag | 06/28/2017 | 3.375 g | 12.5 | | | | 23:27 | | mL/hr | | | | PST | | | | +---------+ +---------+-------+---+ | New Bag | 06/29/2017 | 3.375 g | 12.5 | | | | 06:39 | | mL/hr | | | | PST | | | | +---------+ +---------+-------+---+ +---+---+ | | | +---+---+ + +---------+ +-------+---+---+ | piperacillin-tazobactam (ZOSYN) | New Bag | 06/26/2017 | 4.5 g | | | | IV 4.5 g 4.5 g, intravenous, | | 09:26 | | | | | ONCE, 1 dose, 06/26/17 at 0845 | | PST | | | | + +---------+ [...] | | | | | 06/30/17 at 2032, 1st line - for | | | | | | | no BM for 2 days | | | | | | + +-------+ +------+---+---+ +---+---+ | | | +---+---+ + +---------+ +--------+---+---+ | potassium chloride IV (CENTRAL | New Bag | 06/26/2017 | 20 mEq | | | | LINE-ICU) 20 mEq 20 mEq, | | 10:05 | | | | | intravenous, EVERY 1 HOUR, 2 | | PST | | | | | doses, First dose on Sun06/26/17 | | | | | | | at 1000, Last dose on Sun06/26/17 | | | | | | | at 1100 | | | | | | + +---------+ +--------+---+---+ +---+---+ | | | +---+---+ + +---------+ +--------+---+---+ | potassium chloride IV (CENTRAL | New Bag | 06/26/2017 | 20 mEq | | | | LINE-ICU) 20 mEq 20 mEq, | | 12:11 | | | | | intravenous, ONCE, 1 dose, Sun | | PST | | | | | 06/26/17 at 1200 | | | | | | + +---------+ +--------+---+---+ +---+---+ | | | +---+---+ + +---------+ +--------+---+---+ | potassium chloride IV (CENTRAL | New Bag | 06/26/2017 | 20 mEq | | | | LINE-ICU) 20 mEq 20 mEq, | | 14:57 | | | | | intravenous, EVERY 1 HOUR, 2 | | PST | | | | | doses, [...] on Sun06/28/17 at 2100, Until | | PST | [...] | propofol (DIPRIVAN) injection | Rate/Dos | 06/27/2017 | 15 | 7.79 | | | 0.5-50 mcg/kg/min | e Verify | 05:00 | mcg/kg/m | mL/hr | | | 86.5 kg (0.2595-25.95 mL/hr, | | PST | in | | [...] + + +-------+---+ | Rate/Dose Verify | 06/27/2017 | 15 | 7.79 | | | | 06:00 | mcg/kg/m | mL/hr | | | | PST | in | | | + + + +-------+---+ | Rate/Dose Verify | 06/27/2017 | 15 | 7.79 | | | | 07:00 | mcg/kg/m | mL/hr | | | [...] | | | | | | | 3 | | | | | | + +---------+ +-------+-------+---+ +---+---+ | | | +---+---+ in this encounter
--- OUTSIDE RECORDS SUMMARY | ~2017-07-16 | XMS | Encounter Summary ---
Demographics + + + | Address | [address] | | | [place] [address] | + + + | Home Phone | | + + + | Preferred Language | Unknown | + + + | Marital Status | Single | + + + | Pentecostal Affiliation [...] Team Providers + +------+ + | Care Brazer Electronic Name | Role | Phone | + [...] | 2018 | Referral | Center at [facility] 4[facility] | [address] | | | | Order | Floor [address] [facility] | [facility], | | | | | [facility] | [place] [address] | | | | | Mailcode: [id number] | [phone] | | | | | Bonnie Rec[address] | | | | | | [address] [place], [place] | | | | | | [address] | | | | | | [phone] | | | +--------+ + + + [...] Name: William Burns Order #: | | [id number] Date of : 1935 CSN: [id number] Admit Type: Inpatient Room: SOR | | Procedure: ERCP Indications: For therapy of | | ascending cholangitis; 82 yo M with sepsis, | | elevated LFTs and US showing mary dil and 1.3 cm | | CBD Providers: RENE Mackay | | MD ERICA (Doctor), JORDY SOLANO, | | RN (Nurse), ESTELA DAMIAN RN (Chief Controller Tower) Referring MD: Requesting | | Provider: Medicines: [...] procedure. The Olympus [id number]-[id number] Duodenoscope | | #[id number] was introduced through the mouth, | | and advanced to the duodenum and used to | | inject contrast into the bile duct. The ERCP | | was accomplished without difficulty. The | | patient tolerated the procedure well. Estimated Blood Loss: Estimated blood | | loss: none. Findings: urgent SOR case for ICU patient with acute cholangitis. | | The medication coordinator film was normal. The esophagus was [...]
--- OUTSIDE RECORDS SUMMARY | ~2017-07-16 | XMS | Encounter Summary ---
Demographics + + + | Address | [address] | | | [place] [address] | + + + | Home Phone | | + + + | Preferred Language | Unknown | + + + | Marital Status | Single | + + + | Temple Affiliation [...] Team Providers + +------+ + | Care Career Advisor Name | Role | Phone | + [...] | | 2018 | | Arrhythmia at [facility] | MD Herson [address] | | | | | [address] | [address] | | | | | Mailcode: [id number] | [place], [place] | | | | | [facility] | [address] | | | | | and | [phone] | | | | | Floor [place], [place] | | | | | | [address] | | | | | | [phone] | | | +--------+ + + + [...]
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
--- OUTSIDE RECORDS SUMMARY | ~2017-07-16 | XMS | Encounter Summary ---
Demographics + + + | Address | [address] | | | [place] [address] | + + + | Home Phone [...] Author | [facility] | + + + | Organization | [facility] | + + + | Address | Unknown | + + + | Phone | Unavailable | + + + Support + + +---------+ + | Name | Relationship | Address | Phone | + + +---------+ + | RITESH SPRINGER | ECON | Unknown | | + + +---------+ + Care Team Providers + +------+ + | Care Sheetmetal Patternmaker Name | Role | Phone | + +------+ + | Daryl March MD | PCP | | + +------+ + Encounter Details +--------+ + + + + | Date | Type | Department | Care Team | Description | +--------+ + + + + | 06/26/ | Procedure | 6A Intra Op [facility] | | | | 2017 | Pass | [facility] | | | | | | Admitting Desk | | | | | | Located on the 9th | | | | | | floor [address] [facility] | | | | | | [facility] | | | | | | [place], [place] | | | | | | [phone] | | | +--------+ + + + [...]
--- OUTSIDE RECORDS SUMMARY | ~2017-07-16 | XMS | Encounter Summary ---
Demographics + + + | Address | [address] | | | [place] [address] | + + + | Home Phone | | + + + | Preferred Language | Unknown | + + + | Marital Status | Single | + + + | Sabianism Affiliation [...] Team Providers + +------+ + | Care Medicine Assistant Name | Role | Phone | [...] | | | | | ng | [address] | Mailcode: | | | | | Procedures | [address] | [facility] | | | | | PHYSICAL | [place] | for Health | | | | | THERAPY | [place], [place] | and Healing, | | | | | REFERRAL | [address] | 1st floor | | | | | | Phone: | [place], [place] | | | | | | [phone] | [address] | | | | | | Fax: | Phone: | | | | | | [phone] | [phone] | | | | | | | Fax: | | | | | | | [phone] | +--------+--------+ + + + + Reason [...] + | 06/26/ | Hospital | [address] | Alberto Miranda MD | | | 2018 - | Encounter | [place] | [address] | | | | | [facility] | [place], | | | 06/30/ | | [place] [address] | [place] [address] | | | 2017 | | [phone] | [phone] | | | | | | | [...] note may be different from the original. [facility] Discharge Summary Discharging Provider: VIRGIL GRIMM MD [...] and intubated prior to tra nsfer to [facility]. Workup was notable for RUQ U/S [...] Your Medications These medications were sent to [id number] [address] [place] [address] [facility], [place] [address] Hours: 9AM-7PM MON - FRI / 9AM-6PM [...] Thank you for entrusting your care to [facility] Internal Medicine. If you have any problems or concerns before you are able to follow up with your Primary Care Provider, please call and ask the milling machine operator to page the attending physician, Vic Petty MD, wh o was caring for you at discharge. If that physician is not available, ask the milling machine operator to page the physician inserter promotional item for the Medical Teaching Service. Call us right away if any of the following occur: Recurrent abdominal pain Shaking chills or night sweats Other Discharge Orders and Instructions You will be called by the [facility] GI service within the next week to schedule a repeat appoint ment for ERCP and possible stent removal. Home Health Referral after Hospitalization Comments: I certify that this patient is under my care and that I, or Nurse Practitioner or Physician Bell Staff working with me, had a face to face encounter with this patient on 06/30/2017 On behalf of Attending Physician: Vic Petty MD I am ordering and certify that the following services are medically necessary [facility] Physical Therapy Evaluate and Treat I certify that the patient is homebound based on the following clinical findings Post-hospi tono weakness, decreased strength and endurance, and tires easily with minimal exertion Follow Up: Schedule the following appointment(s) when you get home DARYL MATHEWS MD . Specialty: Internal Medicine Contact information [facility] [address] [place] [address] [address] [facility] [id number] Discharge Physical Exam: Last 24 hour min/max [...] (HCC) 12) Acute respiratory failure with hypoxia ([facility]) Please refer to the resident discharge summary for additional details. Vic Petty MD, PhD Clinical Hospitalist and Medicine Teaching Services [facility] Pager [phone] I have spent 35 minutes with the [...] may be different from the original. PHYSICIAN CAB STARTER STUDENT PROGRESS NOTE FOR EDUCATIONAL PURPOSES ONLY [...] Q2H PRN ipratropium-albuterol 3 mL Q6H PRN rgclbcpa-cjdgfeu-aocaaejy-zinc QID PRN oxyCODONE (immediate release) 2.5-5 mg [...] PIV Code status: FULL SHAHEEN Oconnell-S [facility] Physician Bell Staff Program 06/29/17 Vic Petty MD - 06/29/2017 [...] List: Active Hospital Problems 1) *Septic shock ([facility]) 2) Choledocholithiasis 3) Acute cholangitis 4) Klebsiella sepsis ([facility]) 5) Aspiration pneumonitis ([facility]) 6) S/P ERCP 7) COPD (chronic obstructive pulmonary disease) ([facility]) 8) Essential hypertension 82 year-old man with HTN, COPD not on supplemental oxygen, who presented to OSH with epigas tric pain and abnormal LFTs, admitted for septic shock due to acute cholangitis and acute hy poxic respiratory failure due to aspiration requiring intubation, transferred to [facility] MICU. Here found to have klebsiella [...] Teaching Services [facility] Pager [phone] I have spent 26 minutes with the [...] interval not displayed. Micro: BLOOD CULTURE WORKUP [[id number]] (Abnormal) [facility] LAB Collected: 06/26/17 0939 Lab [...] Primary Surrogate Decision Maker Sharon Springer Daughter [phone] Dimas Xavier MD Internal Medicine, PGY-3 #[id number] Gokul Brown MD - 06/28/2017 2:26 PM [...] management as outpatient (pt prefers facility near [place]) --> if develops post ERCP complications or [...] may be different from the original. PHYSICIAN CAB STARTER STUDENT PROGRESS NOTE FOR EDUCATIONAL PURPOSES ONLY [...] Q2H PRN ipratropium-albuterol 3 mL Q6H PRN jcimtixi-cjcdqnu-hgtkprod-zinc QID PRN oxyCODONE (immediate release) 2.5-5 mg [...] on klebsiella cultures for sensitivity. Spoke with Investigation Division Lieutenant at [facility] @1330, N o sensitivity results yet from [...] IV/Airways/Catheters: PIV Code status: FULL DOREEN Oconnell [facility] Physician Bell Staff Program 06/28/17 Alisha Maynard MD - 06/27/2017 [...] 86 87 78 HCO3 22 24 23 SPTUE9XXB 24 25 24 T3ZKXWCO 96.4 97.0 96.8 FIO2 0.80 0.25 0.21 [...] in the patient's condition). ALISHA MAYNARD MD [facility] 7A [address] [place] [address] Camilo Arreguin MD - 06/27/2017 6:00 AM PSTFormatting of this note may be different from bella patino original. [facility] MEDICAL ICU - PROGRESS NOTE Hospital [...] 6.5 mL/Kg (459.6 mL) RR: 22 bpm [place] BW: 70.7 kg FiO2 21 fraction of [...] 87 78 HCO3 -- 22 24 23 BOV4LOT7 -- 108* 348 371 VBGPH 7.27* -- [...] Primary Surrogate Decision Maker Sharon Springer Daughter [phone] This patient was staffed with Dr. Maynard, [...] duct clearance Rene Maldonado MD Gastroenterology Pager [phone] -Rene Maldonado MD - 06/26/2017 4:38 PM PSTFormatting of this note may be different from the original. PRE PROCEDURE NOTE: MR# [id number] Subjective: William Burns is a 82 y.o. [...] 4 hours. Concern for choledocholithiasis. Transferred [facility] this morning. Has history of COPD [...] results for input(s): PH, PCO2, PO2, HCO3, WCGXA7XUO, O5CIAZTI, D9SGLSXFE, FIO2 in the l ast 72 hours. [...] in the patient's condition). ALISHA MAYNARD MD [facility] [address] [place] [address] in this encounter Plan of [...] | + + + | Blood | [facility], CORE [address] [place] [address] | | | [place] [address] | + + + MAGNESIUM, PLASMA (06/29/2017 3:24 AM) + +-------+ + | Component | Value | Ref Range | + +-------+ + | MAGNESIUM,PLASMA | 1.9 | 1.6 - 2.6 mg/dL | + +-------+ + + + + | Specimen | Performing Laboratory | + + + | Blood | [facility], CORE [address] | | | [place] [address] | + + + + + | [...] | >60 | >60 mL/min | | TAJIK | | | + +---------+ + | EGFR NON | >60 | >60 mL/min | | -TAJIK | | | + +---------+ + | [...] | + + + | Blood | [facility], CORE [address] | | | [place] [address] | + + + + + | [...] | | ------ CBC (HEMOGRAM) | | ONLY[[id number]] Abnormal Final | | result Please view [...] | + + + | Blood | [facility], CORE [address] | | | [place] [address] | + + + US ABDOMEN LIMITED (06/28/2017 11:30 AM) + + + | Specimen | Performing Laboratory | + + + | | [facility] RADIOLOGY VOICE RECOGNITION | + + [...] Note | + + | Service Account, StudyMax Res In Interface - 06/28/2017 5:02 PM [...] [address] | | | [place] [address] | + + + CBC (HEMOGRAM) ONLY [...] | + + + | Blood | [facility], CORE [address] [place] [address] | | | [place] [address] | + + + CBC ONLY (06/28/2017 3:30 AM) + + + | Specimen | Performing Laboratory | + + + | Blood | | + + + + + | Narrative | + + | The following orders were created for panel order CBC ONLY. | | Procedure | | Abnormality Status | | --------- | | ------ CBC (HEMOGRAM) | | ONLY[[id number]] Abnormal Final | | result Please view [...] | + + + | Blood | [facility], CORE [address] | | | [facility] [place] [address] | + + + COMPLETE METABOLIC SET [...] | >60 | >60 mL/min | | TAJIK | | | + +---------+ + | EGFR NON | >60 | >60 mL/min | | -TAJIK | | | + +---------+ + | [...] | + + + | Blood | [facility], CORE [address] | | | [place] [address] | + + + + + | [...] | + + + | Blood | [facility], CORE [address] | | | [place] [address] | + + + + + | [...] TESTS [address] | | | [place] [address] | + + + X-RAY CHEST 2 VIEW (06/27/2017 9:30 PM) + + + | Specimen | Performing Laboratory | + + + | | [facility] RADIOLOGY VOICE RECOGNITION | + + [...] Note | + + | Service Account, StudyMax Res In Interface - 06/28/2017 10:17 AM [...] | BETTINA TURNER POINT OF CARE TESTS [facility] [address] | | | [place] [address] | + + + CAPILLARY BLOOD GLUCOSE [...] [address] | | | [place] [address] | + + + BASIC METABOLIC SET [...] | >60 | >60 mL/min | | TAJIK | | | + +---------+ + | EGFR NON | >60 | >60 mL/min | | -TAJIK | | | + +---------+ + | [...] | + + + | Blood | [facility], CORE [address] | | | [place] [address] | + + + + + | [...] | + + + | Urine | [facility], CORE [address] | | | [place] [address] | + + + + + | [...] | + + + | Urine | [facility], CORE [address] | | | [place] [address] | + + + + + | [...] | + + + | Blood | [facility], CORE [address] | | | [place] [address] | + + + CULTURE, BLOOD BACTI [...] ------ CULTURE, BLOOD | | BACTI & Y...[[id number]] Final | | result Please view results [...] | Blood - Arm - left | [facility], CORE [address] | | | [place] [address] | + + + CULTURE, BLOOD BACTI [...] ------ CULTURE, BLOOD | | BACTI & Y...[[id number]] Final | | result Please view results [...] [address] | | | [place] [address] | + + + URINE, MICROSCOPIC EXAM [...] + + | Urine - Bladder | [facility], CORE [address] | | | [place] [address] | + + + UA, DIPSTICK ONLY [...] | SPECIFIC GRAVITY | 1.040 (H)Comment: Specific [place] | 1.005 - 1.030 | | | performed by refractometry | | + + + + + + + | Specimen | Performing Laboratory | + + + | Urine - Bladder | [facility], CORE [address] | | | [place] [address] | + + + + + | [...] Name: William Burns Order #: | | [id number] Date of : 1935 CSN: [id number] Admit Type: Inpatient Room: [facility] | | Procedure: ERCP Indications: For therapy of | | ascending cholangitis; 82 yo M with sepsis, | | elevated LFTs and US showing mary dil and 1.3 cm | | CBD Providers: RENE Mackay | | MD ERICA (Doctor), JORDY SOLANO, | | RN (Nurse), ESTELA DAMIAN, RN (Sports Official) Referring MD: Requesting | | Provider: Medicines: General Anesthesia, Indomethacin 100 mg CA | | Complications: No immediate complications. Procedure: [...] procedure. The Olympus TJF-Q180V Duodenoscope | | #[id number] was introduced through the mouth, | | and advanced to the duodenum and used to | | inject contrast into the bile duct. The ERCP | | was accomplished without difficulty. The | | patient tolerated the procedure well. Estimated Blood Loss: Estimated blood | | loss: none. Findings: urgent SOR case for ICU patient with acute cholangitis. | | The rehab director occupational therapist film was normal. The esophagus was successfully [...] Name: William Burns Order #: | | [id number] Date of : 1935 CSN: [id number] Admit Type: Inpatient Room: [facility] | | Procedure: ERCP Indications: For therapy of | | ascending cholangitis; 82 yo M with sepsis, | | elevated LFTs and US showing mary dil and 1.3 cm | | CBD Providers: RENE Mackay | | MD ERICA (Doctor), JORDY SOLANO, | | RN (Nurse), ESTELA DAMIAN, RN (Sports Official) Referring MD: Requesting | | Provider: Medicines: General Anesthesia, Indomethacin 100 mg CA | | Complications: No immediate complications. Procedure: [...] procedure. The Olympus TJF-Q180V Duodenoscope | | #[id number] was introduced through the mouth, | | and advanced to the duodenum and used to | | inject contrast into the bile duct. The ERCP | | was accomplished without difficulty. The | | patient tolerated the procedure well. Estimated Blood Loss: Estimated blood | | loss: none. Findings: urgent SOR case for ICU patient with acute cholangitis. | | The rehab director occupational therapist film was normal. The esophagus was successfully [...] | + + + | Blood | [facility], CORE [address] [place] [address] | | | [place] [address] | + + + + + | [...] | + + + | Blood | [facility], CORE [address] | | | [place] [address] | + + + + + | [...] | + + + | Blood | [facility], CORE [address] [place] [address] | | | [place], [place] [address] | + + + CBC ONLY (06/27/2017 12:43 AM) + + + | Specimen | Performing Laboratory | + + + | Blood | | + + + + + | Narrative | + + | The following orders were created for panel order CBC ONLY. | | Procedure | | Abnormality Status | | --------- | | ------ CBC (HEMOGRAM) | | ONLY[[id number]] Abnormal Final | | result Please view [...] | >60 | >60 mL/min | | TAJIK | | | + +---------+ + | EGFR NON | >60 | >60 mL/min | | -TAJIK | | | + +---------+ + | [...] | + + + | Blood | [facility], CORE [address] | | | [place] [address] | + + + + + | [...] + | ECG IMPRESSION | Borderline prolonged CA interval | | + + + + [...] Laboratory | + + + | | [facility] [address] [place] [address] | | | [place] [address] | + + + OUTSIDE BODY - READ REQUEST (06/27/2017) + + + | Specimen | Performing Laboratory | + + + | | [facility] RADIOLOGY VOICE RECOGNITION | + + [...] Note | + --------+ | Service Account, StudyMax Res In Interface - 06/28/2017 9:20 AM [...] | + + + | Blood | [facility], CORE [address] [facility] | | | [place] [address] | + + + CAPILLARY BLOOD GLUCOSE (NO CHG), POC (06/26/2017 9:57 PM) + +---------+ + | Component | Value | Ref Range | + +---------+ + | BLOOD GLUCOSE, POC | 194 (H) | 70 - 99 mg/dL | + +---------+ + + + + | Specimen | Performing Laboratory | + + + | | [facility], POINT OF CARE TESTS [address] [facility] | | | [place] [address] | + + + X-RAY ABD LTD FEEDING TUBE EVAL (06/26/2017 8:53 PM) + + + | Specimen | Performing Laboratory | + + + | | [facility] RADIOLOGY VOICE RECOGNITION | + + [...] [address] | | | [place] [address] | + + + 12 LEAD ECG [...] Laboratory | + + + | | [facility]ARDIOLOG[facility] [address] [place] [address] | | | [place] [address] | + + + ART LINE (06/26/2017 [...] verifies correct patient, | | procedure, equipment, systems support specialist and site/side marked as required. [...] + | Tissue - Bile duct | [facility] DEPARTMENT OF PATHOLOGY [address] [place] [address] | | | [place] [address] | + + + CVL (06/26/2017 4:21 [...] A pause verifies correct patient, procedure, equipment, systems support specialist and | | site/side marked [...] The modified Seldinger technique (a | | paczcdfg-basj-haa-sgnrti-xdxu-tcjm-beweiga-kjn-ukerekdl) was used for vessel | | cannulation. [...] | + + + | Blood | [facility], CORE [address] [place] [address] | | | [place] [address] | + + + CBC (HEMOGRAM) ONLY [...] | + + + | Blood | [facility], CORE [address] | | | [place] [address] | + + + LACTATE (06/26/2017 3:39 PM) + +-------+ + | Component | Value | Ref Range | + +-------+ + | LACTATE | 1.3 | mmol/L | + +-------+ + + + + | Specimen | Performing Laboratory | + + + | Blood | [facility], CORE [address] | | | [place] [address] | + + + + + | [...] | | ------ CBC (HEMOGRAM) | | ONLY[[id number]] Abnormal Final | | result Please view [...] | + + + | Blood | [facility], CORE [address] [facility] | | | [place] [address] | + + + COMPLETE METABOLIC SET [...] | >60 | >60 mL/min | | TAJIK | | | + +---------+ + | EGFR NON | >60 | >60 mL/min | | -TAJIK | | | + +---------+ + | [...] | + + + | Blood | [facility], CORE [address] | | | [place] [address] | + + + + + | [...] Laboratory | + + + | | [facility] OF CARDIOLOGY [address] [place] [address] | | | [place] [address] | + + + BLOOD GASES, ARTERIAL [...] | + + + | Blood | [facility], CORE [address] | | | [place], [place] [address] | + + + VITAMIN D, 25-HYDROXY, SERUM (06/26/2017 2:01 PM) + +---------+ + | Component | Value | Ref Range | + +---------+ + | VITAMIN D 25 HYDROXY | 8.3 (L) | 30 - 80 ng/mL | + +---------+ + + + + | Specimen | Performing Laboratory | + + + | Blood | [facility], CORE [address] [place] [address] | | | [place] [address] | + + + + + | [...] | + + + | Blood | [facility], CORE [address] [place] [address] | | | [place] [address] | + + + X-RAY ABD LTD FEEDING TUBE EVAL (06/26/2017 11:16 AM) + + + | Specimen | Performing Laboratory | + + + | | [facility] RADIOLOGY VOICE RECOGNITION | + + [...] Note | + + | Service Account, Luxim In Interface - 06/26/2017 12:57 PM PST [...] | + + + | Blood | [facility], CORE [address] | | | [place] [address] | + + + + + | [...] Note | + + | Service Account, StudyMax Res In Interface - 06/26/2017 12:55 PM [...] Note | + + | Service Account, StudyMax Res In Interface - 06/26/2017 12:53 PM [...] Laboratory | + + + | | [facility] RADIOLOGY VOICE RECOGNITION | + + [...] | + + + | Blood | [facility], TRANSFUSION MEDICINE [address] [place] [address] | | | [place] [address] | + + + ANTIBODY SCREEN (06/26/2017 9:40 AM) + + + + | Component | Value | Ref Range | + + + + | Antibody Screen | Negative | | + + + + + + + | Specimen | Performing Laboratory | + + + | Blood | [facility], TRANSFUSION MEDICINE [address] | | | [address] [place] [address] | + + + ABO & RH [...] | + + + | Blood | [facility], TRANSFUSION MEDICINE [address] | | | [place] [address] | + + + TYPE AND SCREEN [...] | ------ ABO & RH | | TYPE[[id number]] F | | inal result ANTIBODY | | SCREEN[[id number]] Fin | | al result Please view [...] + + | ECG IMPRESSION | Prolonged CA interval | | + + + + | ECG IMPRESSION | Right bundle branch block- ABNORMAL ECG - | | + + + + | ECG IMPRESSION | Electronically signed by: ASHWINI RUEDA | | | | 06-26-2017 11:23:50 | | + + + + + + + | Specimen | Performing Laboratory | + + + | | [facility] [address] [place] [address] | | | [place] [address] | + + + BLOOD CULTURE WORKUP (06/26/2017 9:39 AM) + + + + | Component | Value | Ref Range | + + + + | CULTURE RESULT | Klebsiella oxytoca (A) | | + + + + + + + | Specimen | Performing Laboratory | + + + | Blood - Central line | [facility] [address] [place] [address] | | | [address] | + + + + + | [...] + + | Blood - Arterial | [facility] [place] [address] [place], [place] | | line | [address] | + + + + + | [...] + | Blood - Central line | [facility], CORE [address] [facility] | | | [place] [address] | + + + + + | [...] | | ------ BLOOD CULTURE | | WORKUP[[id number]] Abnormal Final | | result CULTURE, BLOOD BACTI & | | Y...[[id number]] Abnormal Final result | | Please view [...] | + + + | Blood | [facility], [facility] [address] | | | [place] [address] | + + + MANUAL DIFFERENTIAL (06/26/2017 [...] | + + + | Blood | [facility], [facility] [address] | | | [place] [address] | + + + + + | [...] + + | Blood - Arterial | [facility], CORE [address] [facility] | | line | [place] [address] | + + + + + | [...] | + + + | Blood | [facility], CORE [address] [place] [address] | | | [place] [address] | + + + CULTURE, BLOOD BACTI [...] | | ------ BLOOD CULTURE | | WORKUP[[id number]] Abnormal Final | | result CULTURE, BLOOD BACTI & | | Y...[[id number]] Abnormal Edited Result - FINAL | | [...] | ------ CBC AND AUTO | | DIFF[[id number]] Abnormal Final | | result MANUAL | | DIFFERENTIAL[[id number]] Abnormal Final | | result RBC MORPHOLOGY[[id number]] | | Normal Final result Please view [...] | + + + | Blood | [facility], CORE [address] | | | [place] [address] | + + + MAGNESIUM, PLASMA (06/26/2017 9:30 AM) + +-------+ + | Component | Value | Ref Range | + +-------+ + | MAGNESIUM,PLASMA | 1.8 | 1.6 - 2.6 mg/dL | + +-------+ + + + + | Specimen | Performing Laboratory | + + + | Blood | [facility], CORE [address] [facility] | | | [place] [address] | + + + + + | [...] | >60 | >60 mL/min | | TAJIK | | | + +---------+ + | EGFR NON | >60 | >60 mL/min | | -TAJIK | | | + +---------+ + | [...] | + + + | Blood | [facility], [facility] [address] | | | [place] [address] | + + + + + | [...] | + + + | Blood | [facility], CORE [address] [facility] [address] [address] | | | [place] [address] | + + + NV-TP-RVE-HB,POC RT (06/26/2017 8:55 AM) + + + [...] | Blood | [facility], [facility] [address] | | | [place] [address] | + + + LAB REPORTS (06/26/2017)PATHOLOGY [...] 2 HOURS | | | NEEDED, Starting [facility] 06/28/17 at | | | 1352, [...]
--- OUTSIDE RECORDS SUMMARY | ~2017-07-16 | XMS | Encounter Summary ---
Demographics + + + | Address | [address] | | | [place] [address] | + + + | Home Phone | | + + + | Preferred Language | Unknown | + + + | Marital Status | Single | + + + | Scientology Affiliation [...] Team Providers + +------+ + | Care Video Surveillance Technician Name | Role | Phone | [...] Noble, | | | 2017 | | [facility] | MD [address] [facility] | | | | | Admitting Desk | [facility] | | | | | Located on the | [place], [place] | | | | | [facility] [address] [facility] | [address] | | | | | [facility] | [phone] | | | | | [place], [place] | | | | | | [address] | | | +--------+ + + + + Anesthesia Record + + + + + | Procedure Name | Responsible | Anesthesia Start | Anesthesia Stop Time | | | Anesthesiologist | Time | | + + + + + | GI LAB ERCP IN OR | Bob Noble MD | 06/26/17 3775 | 06/26/17 1705 | | (N/A ) [...] + + | Urethr | 06/26/17; 0900; [facility]; | 06/26/17 0900 by | 06/27/17 [...]
--- OUTSIDE RECORDS SUMMARY | ~2017-07-16 | XMS | Encounter Summary ---
Demographics + + + | Address | [address] | | | [place] [address] | + + + | Home Phone | | + + + | Preferred Language | Unknown | + + + | Marital Status | Single | + + + | Roman Catholic [...] Team Providers + +------+ + | Care Pr Manager Name | Role | Phone | [...] Noble, | | | 2017 | | [facility] | MD [address] [facility] | | | | | Admitting Desk | [facility] | | | | | Located on the | [place], [place] | | | | | [facility] [address] [facility] | [address] | | | | | [facility] | [phone] | | | | | [place], [place] | | | | | | [address] | | | +--------+ + + + + Anesthesia Record + + + + + | Procedure Name | Responsible | Anesthesia Start | Anesthesia Stop Time | | | Anesthesiologist | Time | | + + + + + | GI LAB ERCP IN OR | Bob Noble MD | 06/26/17 3475 | 06/26/17 1705 | | (N/A ) [...] + + | Urethr | 06/26/17; 0900; [facility] hospital; | 06/26/17 0900 by | 06/27/17 1100 by | | al | Graciela Arriaga; 06/27/17; 1100 | Leonor Peck RN | Lani Cihcas RN | | Cathet | | | [...]
--- OUTSIDE RECORDS SUMMARY | ~2017-07-16 | XMS | Encounter Summary ---
Demographics + + + | Address | [address] | | | [place] [address] | + + + | Home Phone | | + + + | Preferred Language | Unknown | + + + | Marital Status | Single | + + + | Jewish Affiliation [...] Team Providers + +------+ + | Care Geological Scout Name | Role | Phone | + +------+ + | Daryl March MD | PCP | | + +------+ + Encounter Details +--------+ + + + + | Date | Type | Department | Care Team | Description | +--------+ + + + + | 06/26/ | Document-Sc | Health Information | Other, Faculty | | | 2018 | anned | Services [address] | [phone] | | | | | [address] Figu[address] | | | | | | Road Mailcode: | | | | | | [address] | | | | | | [facility] | | | | | | [place], [place] | | | | | | [address] | | | | | | [phone] | | | +--------+ + + + [...]
--- OUTSIDE RECORDS SUMMARY | ~2017-07-16 | XMS | Encounter Summary ---
Demographics + + + | Address | [address] | | | [place] [address] | + + + | Home Phone | | + + + | Preferred Language | Unknown | + + + | Marital Status | Single | + + + | Taoism Affiliation [...] Team Providers + +------+ + | Care Doll Surgeon Name | Role | Phone | + [...] ERCP | | 2018 | | [facility] | MD Rashida [address] [facility] | | | | | Admitting Desk | [facility] | | | | | Located on the 9 | [place], [place] | | | | | [address] | [address] | | | | | [facility] | [phone] | | | | | [place], [place] | | | | | | [address] | | | +--------+---------+ + + + [...] different from the original. [facility] Discharge Summary [...] Your Medications These medications were sent to [id number] [address] [place] [address], [place] [address] Hours: 9AM-7PM MON - FRI / 9AM-6PM [...] Care Provider, please call and ask the mixing house operator to page the attending physician, Vic Petty MD, wh o was caring for you at discharge. If that physician is not available, ask the mixing house operator to page the physician oncology rep for the Medical Teaching Service. Call us [...] that I, or Nurse Practitioner or Physician Test Preparer working with me, had a face to face encounter with this patient on 06/30/2017 On behalf of Attending Physician: Vic Petty MD I am ordering and certify that the following services are medically necessary home health s [facility] Physical Therapy Evaluate and Treat I certify that the patient is homebound based on the following clinical findings Post-hospi tono weakness, decreased strength and endurance, and tires easily with minimal exertion Follow Up: Schedule the following appointment(s) when you get home DARYL MATHEWS MD . Specialty: Internal Medicine Contact information [facility] [address] [place] [address] [address] [facility] [phone] Discharge Physical Exam: Last 24 hour min/max [...] (NSTEMI), type 2 ([facility]) 12) Acute respiratory failure with hypoxia ([facility]) Please refer to the resident discharge summary for additional details. Vic Petty MD, PhD Clinical Hospitalist and Medicine Teaching Services [facility] Pager [phone] I have spent 35 minutes with the [...] may be different from the original. PHYSICIAN REAL PROPERTY EVALUATOR STUDENT PROGRESS NOTE FOR EDUCATIONAL PURPOSES ONLY [...] Q2H PRN ipratropium-albuterol 3 mL Q6H PRN nwgbplrf-labyuug-fmunzayh-zinc QID PRN oxyCODONE (immediate release) 2.5-5 mg [...] IV/Airways/Catheters: PIV Code status: FULL SHAHEEN Oconnell-Sherman [facility] Physician Test Preparer Program 06/29/17 Vic Petty MD - 06/29/2017 [...] ([facility]) 8) Essential hypertension 82 year-old [...] Medicine Teaching Services [facility] Pager [phone] I have spent 26 minutes with the [...] interval not displayed. Micro: BLOOD CULTURE WORKUP [[id number]] (Abnormal) [facility] Collected: 06/26/17 0939 Lab [...] Primary Surrogate Decision Maker Sharon Springer Daughter [phone] Dimas Xavier MD Internal Medicine, PGY-3 #[id number] Gokul Brown MD - 06/28/2017 2:26 PM [...] management as outpatient (pt prefers facility near [place]) --> if develops post ERCP complications or [...] may be different from the original. PHYSICIAN REAL PROPERTY EVALUATOR STUDENT PROGRESS NOTE FOR EDUCATIONAL PURPOSES ONLY [...] Q2H PRN ipratropium-albuterol 3 mL Q6H PRN sdjejwgg-ojnmwjx-yogrvunp-zinc QID PRN oxyCODONE (immediate release) 2.5-5 mg [...] on klebsiella cultures for sensitivity. Spoke with Literary Agent at [facility] @1330, N o sensitivity results yet from [...] FULL DOREEN Oconnell [facility] Physician Test Preparer Program 06/28/17 Alisha Maynard MD - 06/27/2017 [...] 86 87 78 HCO3 22 24 23 MDTMO9AVY 24 25 24 X9ZQNPKD 96.4 97.0 96.8 FIO2 0.80 0.25 0.21 [...] in the patient's condition). ALISHA MAYNARD MD [facility] [address]A [address] [place] [phone] Camilo Arreguin MD - 06/27/2017 6:00 AM PSTFormatting of this note may be different from th carey original. [facility] MEDICAL ICU - PROGRESS [...] 6.5 mL/Kg (459.6 mL) RR: 22 bpm [place] BW: 70.7 kg FiO2 21 fraction of [...] 87 78 HCO3 -- 22 24 23 KSR6OAA1 -- 108* 348 371 VBGPH 7.27* -- [...] Primary Surrogate Decision Maker Sharon [place] Daughter [phone] This patient was staffed with Dr. Maynard, [...] duct clearance Rene Maldonado MD Gastroenterology Pager [phone] -Rene Maldonado MD - 06/26/2017 4:38 PM PSTFormatting of this note may be different from the original. PRE PROCEDURE NOTE: MR# [id number] Subjective: William Burns is a 82 y.o. [...] 4 hours. Concern for choledocholithiasis. Transferred t [facility] this morning. Has history of COPD and [...] results for input(s): PH, PCO2, PO2, HCO3, QNKUJ9UMU, Z8HKSTFT, G6TXJXTKC, FIO2 in the l ast 72 hours. [...] in the patient's condition). ALISHA MAYNARD MD [facility] [address] [place] [phone] in this encounter Plan of Treatment Not [...] | + + + | Blood | [facility]ORY SERVICES, CORE [address] | | | [place] [address] | + + + MAGNESIUM, PLASMA (06/29/2017 3:24 AM) + +-------+ + | Component | Value | Ref Range | + +-------+ + | MAGNESIUM,PLASMA | 1.9 | 1.6 - 2.6 mg/dL | + +-------+ + + + + | Specimen | Performing Laboratory | + + + | Blood | [facility], CORE [address] | | | [place] [address] | + + + + + | [...] | >60 | >60 mL/min | | GUINEAN | | | + +---------+ + | EGFR NON | >60 | >60 mL/min | | -GUINEAN | | | + +---------+ + | [...] | + + + | Blood | [facility], CORE [address] | | | [place] [address] | + + + + + | [...] | | ------ CBC (HEMOGRAM) | | ONLY[[id number]] Abnormal Final | | result Please view [...] | + + + | Blood | [facility], CORE [address] | | | [place] [address] | + + + US ABDOMEN LIMITED (06/28/2017 11:30 AM) + + + | Specimen | Performing Laboratory | + + + | | [facility] RADIOLOGY VOICE RECOGNITION | + + [...] Note | + + | Service Account, [employer] In Interface - 06/28/2017 5:02 PM [...] [address] | | | [place] [address] | + + + CBC (HEMOGRAM) ONLY [...] | + + + | Blood | [facility], CORE [address] [place] [address] | | | [place] [address] | + + + CBC ONLY (06/28/2017 3:30 AM) + + + | Specimen | Performing Laboratory | + + + | Blood | | + + + + + | Narrative | + + | The following orders were created for panel order CBC ONLY. | | Procedure | | Abnormality Status | | --------- | | ------ CBC (HEMOGRAM) | | ONLY[[id number]] Abnormal Final | | result Please view [...] | + + + | Blood | [facility], CORE [address] [place] [address] | | | [place] [address] | + + + COMPLETE METABOLIC SET [...] | >60 | >60 mL/min | | GUINEAN | | | + +---------+ + | EGFR NON | >60 | >60 mL/min | | -GUINEAN | | | + +---------+ + | [...] | + + + | Blood | [facility], [facility] [address] | | | [place] [address] | + + + + + | [...] | + + + | Blood | [facility], CORE [address] | | | [place] [address] | + + + + + | [...] Laboratory | + + + | | [facility], POINT OF CARE TESTS [address] | | | [place] [address] | + + + X-RAY CHEST 2 VIEW (06/27/2017 9:30 PM) + + + | Specimen | Performing Laboratory | + + + | | [facility] RADIOLOGY VOICE RECOGNITION | + + [...] Note | + + | Service Account, [employer] In Interface - 06/28/2017 10:17 AM PST [...] [address] | | | [place] [address] | + + + CAPILLARY BLOOD GLUCOSE (NO CHG), POC (06/27/2017 1:39 PM) + +---------+ + | Component | Value | Ref Range | + +---------+ + | BLOOD GLUCOSE, POC | 170 (H) | 70 - 99 mg/dL | + +---------+ + + + + | Specimen | Performing Laboratory | + + + | | [facility], POINT OF CARE TESTS [address] | | | [facility] [place] [address] | + + + BASIC METABOLIC SET [...] | >60 | >60 mL/min | | GUINEAN | | | + +---------+ + | EGFR NON | >60 | >60 mL/min | | -GUINEAN | | | + +---------+ + | [...] | + + + | Blood | [facility], CORE [address] | | | [place] [address] | + + + + + | [...] | + + + | Urine | [facility], CORE [address] | | | [place] [address] | + + + + + | [...] | + + + | Urine | [facility], CORE [address] | | | [place] [address] | + + + + + | [...] | + + + | Blood | [facility], CORE [address] | | | [place] [address] | + + + CULTURE, BLOOD BACTI [...] ------ CULTURE, BLOOD | | BACTI & Y...[[id number]] Final | | result Please view results [...] | Blood - Arm - left | [facility], CORE [address] [place] [address] | | | [place] [address] | + + + CULTURE, BLOOD BACTI [...] ------ CULTURE, BLOOD | | BACTI & Y...[[id number]] Final | | result Please view results [...] [address] | | | [place] [address] | + + + URINE, MICROSCOPIC EXAM [...] + + | Urine - Bladder | [facility] [place] [address] | | | [place] [address] | + + + LYNDONBRITTANY ONLY (06/27/2017 [...] | SPECIFIC GRAVITY | 1.040 (H)Comment: Specific [place] | 1.005 - 1.030 | | | performed by refractometry | | + + + + + + + | Specimen | Performing Laboratory | + + + | Urine - Bladder | [facility], CORE [address] | | | [place] [address] | + + + + + | [...] Name: William Burns Order #: | | [id number] Date of : 1935 CSN: [id number] Admit Type: Inpatient Room: [facility] | | Procedure: ERCP Indications: For therapy of | | ascending cholangitis; 82 yo M with sepsis, | | elevated LFTs and US showing mary dil and 1.3 cm | | CBD Providers: RENE Mackay | | MD ERICA (Doctor), JORDY SOLANO, | | RN (Nurse), ESTELA DAMIAN RN (Precision Aircraft Structure Assembler) Referring MD: Requesting | | Provider: Medicines: General Anesthesia, Indomethacin 100 mg RI | | Complications: No immediate complications. Procedure: [...] procedure. The Olympus TJF-Q180V Duodenoscope | | #[id number] was introduced through the mouth, | | and advanced to the duodenum and used to | | inject contrast into the bile duct. The ERCP | | was accomplished without difficulty. The | | patient tolerated the procedure well. Estimated Blood Loss: Estimated blood | | loss: none. Findings: urgent SOR case for ICU patient with acute cholangitis. | | The data analysis manager film was normal. The esophagus was [...] Name: William Burns Order #: | | [id number] Date of : 1935 CSN: [id number] Admit Type: Inpatient Room: [facility] | | Procedure: ERCP Indications: For therapy of | | ascending cholangitis; 82 yo M with sepsis, | | elevated LFTs and US showing mary dil and 1.3 cm | | CBD Providers: RENE Mackay | | MD ERICA (Doctor), JORDY SOLANO, | | RN (Nurse), ESTELA DAMIAN, RN (Precision Aircraft Structure Assembler) Referring MD: Requesting | | Provider: Medicines: General Anesthesia, Indomethacin 100 mg RI | | Complications: No immediate complications. Procedure: [...] procedure. The Olympus TJF-Q180V Duodenoscope | | #[id number] was introduced through the mouth, | | and advanced to the duodenum and used to | | inject contrast into the bile duct. The ERCP | | was accomplished without difficulty. The | | patient tolerated the procedure well. Estimated Blood Loss: Estimated blood | | loss: none. Findings: urgent SOR case for ICU patient with acute cholangitis. | | The data analysis manager film was normal. The esophagus was [...] | + + + | Blood | [facility], CORE [address] [place] [address] | | | [place] [address] | + + + + + | [...] | + + + | Blood | [facility], CORE [address] | | | [place] [address] | + + + + + | [...] | + + + | Blood | [facility], CORE [address] | | | [place] [address] | + + + CBC ONLY (06/27/2017 12:43 AM) + + + | Specimen | Performing Laboratory | + + + | Blood | | + + + + + | Narrative | + + | The following orders were created for panel order CBC ONLY. | | Procedure | | Abnormality Status | | --------- | | ------ CBC (HEMOGRAM) | | ONLY[[id number]] Abnormal Final | | result Please view [...] | >60 | >60 mL/min | | GUINEAN | | | + +---------+ + | EGFR NON | >60 | >60 mL/min | | -GUINEAN | | | + +---------+ + | [...] | + + + | Blood | [facility], CORE [address] | | | [place] [address] | + + + + + | [...] + | ECG IMPRESSION | Borderline prolonged RI interval | | + + + + [...] Laboratory | + + + | | [facility] DEPT OF CARDIOLOGY [address] [place] [address] | | | [place] [address] | + + + OUTSIDE BODY - READ REQUEST (06/27/2017) + + + | Specimen | Performing Laboratory | + + + | | [facility] RADIOLOGY VOICE RECOGNITION | + + [...] | + + + | Blood | [facility], CORE [address] | | | [place] [address] | + + + CAPILLARY BLOOD GLUCOSE (NO CHG), POC (06/26/2017 9:57 PM) + +---------+ + | Component | Value | Ref Range | + +---------+ + | BLOOD GLUCOSE, POC | 194 (H) | 70 - 99 mg/dL | + +---------+ + + + + | Specimen | Performing Laboratory | + + + | | [facility], POINT OF CARE TESTS [address] | | | [place] [address] | + + + X-RAY ABD LTD FEEDING TUBE EVAL (06/26/2017 8:53 PM) + + + | Specimen | Performing Laboratory | + + + | | [facility] RADIOLOGY VOICE RECOGNITION | + + [...] | + + | Service Account, [employer] In Interface - 06/27/2017 9:07 AM PST [...] + | | [facility] POINT [facility] TESTS [address] | | | [place] [address] | + + + 12 LEAD ECG [...] | + + + | | [facility] [address] [place] [address] | | | [place] [address] | + + + ONESIMO WATKINS (06/26/2017 [...] verifies correct patient, | | procedure, equipment, operator command support systems and site/side marked as required. CLABSI | [...] + | Tissue - Bile duct | [facility] DEPARTMENT OF PATHOLOGY [address] | | | [place] [address] | + + + CVL (06/26/2017 4:21 [...] A pause verifies correct patient, procedure, equipment, operator command support systems and | | site/side marked as required. [...] The modified Seldinger technique (a | | xvyprfzk-mqse-xlk-bkgats-ngce-xhid-gsaoeum-ych-lytwlcee) was used for vessel | | cannulation. [...] | + + + | Blood | [facility], CORE [address] [place] [address] | | | [place] [address] | + + + CBC (HEMOGRAM) ONLY [...] | + + + | Blood | [facility], CORE [address] | | | [place] [address] | + + + LACTATE (06/26/2017 3:39 PM) + +-------+ + | Component | Value | Ref Range | + +-------+ + | LACTATE | 1.3 | mmol/L | + +-------+ + + + + | Specimen | Performing Laboratory | + + + | Blood | [facility], CORE [address] | | | [place] [address] | + + + + + | [...] | | ------ CBC (HEMOGRAM) | | ONLY[[id number]] Abnormal Final | | result Please view [...] | + + + | Blood | [facility], CORE [address] | | | [place] [address] | + + + COMPLETE METABOLIC SET [...] | >60 | >60 mL/min | | GUINEAN | | | + +---------+ + | EGFR NON | >60 | >60 mL/min | | -GUINEAN | | | + +---------+ + | [...] | + + + | Blood | [facility], CORE [address] | | | [place] [address] | + + + + + | [...] Laboratory | + + + | | [facility] [address] [place] [address] | | | [place] [address] | + + + BLOOD GASES, ARTERIAL [...] | + + + | Blood | [facility], CORE [address] [place] [address] | | | [place] [address] | + + + VITAMIN D, 25-HYDROXY, SERUM (06/26/2017 2:01 PM) + +---------+ + | Component | Value | Ref Range | + +---------+ + | VITAMIN D 25 HYDROXY | 8.3 (L) | 30 - 80 ng/mL | + +---------+ + + + + | Specimen | Performing Laboratory | + + + | Blood | [facility], CORE [address] [place] [address] | | | [place], [place] [address] | + + + + + | [...] | + + + | Blood | [facility], CORE [address] | | | [place] [address] | + + + X-RAY ABD LTD FEEDING TUBE EVAL (06/26/2017 11:16 AM) + + + | Specimen | Performing Laboratory | + + + | | [facility] RADIOLOGY VOICE RECOGNITION | + + [...] Note | + + | Service Account, [employer] In Interface - 06/26/2017 12:57 PM PST [...] | + + + | Blood | [facility], CORE [address] | | | [place] [address] | + + + + + | [...] Laboratory | + + + | | [facility] VOICE RECOGNITION | + + + [...] Laboratory | + + + | | [facility] VOICE RECOGNITION | + + + [...] Note | + + | Service Account, [employer] In Interface - 06/26/2017 12:55 PM PST [...] Laboratory | + + + | | [facility] RADIOLOGY VOICE RECOGNITION | + + [...] Note | + + | Service Account, [employer] In Interface - 06/26/2017 10:12 AM [...] | + + + | Blood | [facility] SERVICES, TRANSFUSION MEDICINE [address] [place] [address] | | | [place] [address] | + + + ANTIBODY SCREEN (06/26/2017 9:40 AM) + + + + | Component | Value | Ref Range | + + + + | Antibody Screen | Negative | | + + + + + + + | Specimen | Performing Laboratory | + + + | Blood | [facility], TRANSFUSION MEDICINE [address] | | | [place] [address] | + + + ABO & RH [...] | + + + | Blood | [facility], TRANSFUSION MEDICINE [address] [place] [address] | | | [place] [address] | + + + TYPE AND SCREEN [...] | ------ ABO & RH | | TYPE[[id number]] F | | inal result ANTIBODY | | SCREEN[[id number]] Fin | | al result Please view [...] + + | ECG IMPRESSION | Prolonged RI interval | | + + + + | ECG IMPRESSION | Right bundle branch block- ABNORMAL ECG - | | + + + + | ECG IMPRESSION | Electronically signed by: ASHWINI RUEDA | | | | 06-26-2017 11:23:50 | | + + + + + + + | Specimen | Performing Laboratory | + + + | | [facility] [address] [place] [address] | | | [place] [address] | + + + BLOOD CULTURE WORKUP (06/26/2017 9:39 AM) + + + + | Component | Value | Ref Range | + + + + | CULTURE RESULT | Klebsiella oxytoca (A) | | + + + + + + + | Specimen | Performing Laboratory | + + + | Blood - Central line | [facility] [address] [address] [place], [place] | | | [address] | + + + + + | [...] + | Blood - Arterial | [facility] [place] [address] [place], [place] | | line | [address] | + + + + + | [...] + | Klebsiella oxytoca | Trimethoprim/Sulfa | SUSCEPTIBILITY-AFRIHA | Sensitive | + + + + [...] + | Blood - Central line | [facility], CORE [address] | | | [place] [address] | + + + + + | [...] | | ------ BLOOD CULTURE | | WORKUP[[id number]] Abnormal Final | | result CULTURE, BLOOD BACTI & | | Y...[[id number]] Abnormal Final result | | Please view [...] | + + + | Blood | [facility], CORE [address] | | | [place] [address] | + + + MANUAL DIFFERENTIAL (06/26/2017 [...] | + + + | Blood | [facility], CORE [address] | | | [place] [address] | + + + + + | [...] + + | Blood - Arterial | [facility], CORE [address] [place] [address] | | line | [place] [address] | + + + + + | [...] | + + + | Blood | [facility], CORE [address] [place] [address] | | | [place] [address] | + + + CULTURE, BLOOD BACTI [...] | | ------ BLOOD CULTURE | | WORKUP[[id number]] Abnormal Final | | result CULTURE, BLOOD BACTI & | | Y...[[id number]] Abnormal Edited Result - FINAL | | [...] | ------ CBC AND AUTO | | DIFF[[id number]] Abnormal Final | | result MANUAL | | DIFFERENTIAL[[id number]] Abnormal Final | | result RBC MORPHOLOGY[[id number]] | | Normal Final result Please view [...] | + + + | Blood | [facility], CORE [address] | | | [place] [address] | + + + MAGNESIUM, PLASMA (06/26/2017 9:30 AM) + +-------+ + | Component | Value | Ref Range | + +-------+ + | MAGNESIUM,PLASMA | 1.8 | 1.6 - 2.6 mg/dL | + +-------+ + + + + | Specimen | Performing Laboratory | + + + | Blood | [facility], CORE [address] | | | [place] [address] | + + + + + | [...] | >60 | >60 mL/min | | GUINEAN | | | + +---------+ + | EGFR NON | >60 | >60 mL/min | | -GUINEAN | | | + +---------+ + | [...] | + + + | Blood | [facility] [place] [address] | | | [place] [address] | + + + + + | [...] | + + + | Blood | [facility], CORE [address] | | | [place] [address] | + + + UM-KQ-WIA-HB,POC RT (06/26/2017 8:55 AM) + + + [...] | + + + | Blood | [facility] [address] | | | [place] [address] | + + + LAB REPORTS (06/26/2017)PATHOLOGY [...] 2 HOURS | | | NEEDED, Starting [facility] 06/28/17 at | | | 1352, Until [...]
--- OUTSIDE RECORDS SUMMARY | ~2017-07-16 | XMS | Clinical Summary ---
Demographics + + + | Address | [address] | | | [place] [address] | + + + | Home Phone | | + + + | Preferred Language | Unknown | + + + | Marital Status | Single | + + + | Jew Affiliation | NON | + + + | Race | White | + + + | Ethnic Group | Not or | + + + Author + + + | Author | [facility] | + + + | Organization | [facility] | + + + | Address | Unknown | + + + | Phone | Unavailable | + + + Support + + +---------+ + | Name | Relationship | Address | Phone | + + +---------+ + | RITESH SPRINGER | ECON | Unknown | | + + +---------+ + Care Team Providers + +------+ + | Care Sole Cutter Name | Role | Phone | + +------+ + | Daryl March MD | PP | | + +------+ + Source Comments BETTINA is fully live on both [facility] Ambulatory and [facility] InPatient.[facility] Allergies + + + + + + [...] + | 07/04/ | Inside | | Lyal Maldonado | | | 2018 | Referral | | MD Rashida | | | | Order | | | | +--------+ + + + + | 06/28/ | Document-Sc | | Other, Faculty | | | 2018 | anned | | | | +--------+ + + + + | 06/27/ | Ship Yard Electrical Person | | Lyla Maldonado | Choledocholithiasis | [...] | | 240 mg | | | [id number] | | | y known as: | [...] | | [place] | | | [place] [address] | | | Hours: | | | [...] | | please call | | | [phone] | | | [phone] | | | and ask the | | | sand mill operator facing sand | | | to page the | [...] | | ask the | | | sand mill operator facing sand to | | | page the | | | physician | | | 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 for | | | the | | [...] | | | Physician | | | Net Web Developer | | | working | | | [...] | | | INTERNAL | | | [id number] | | | 0 | | | [place] | | | [place]TE | | | [address] | | | [place] | | | [phone] | | | [phone] | | | [...] + + + | Blood | [facility], CORE [address] [place] [address] | | | [place] [address] | + + + COMPLETE METABOLIC SET [...] | >60 | >60 mL/min | | CANADIAN | | | + +---------+ + | EGFR NON | >60 | >60 mL/min | | -CANADIAN | | | + +---------+ + | [...] | + + + | Blood | [facility], CORE [address] | | | [place] [address] | + + + + + | [...] | | ------ CBC (HEMOGRAM) | | ONLY[[id number]] Abnormal Final | | result Please view [...] | + + + | Blood | [facility], CORE [address] | | | [place], [place] [address] | + + + + + | [...] | + + + | Blood | [facility], CORE [address] | | | [place] [address] | + + + US ABDOMEN LIMITED (06/28/2017 11:30 AM) + + + | Specimen | Performing Laboratory | + + + | | [facility] RADIOLOGY VOICE RECOGNITION | + [...] [address] | | | [place] [address] | + + + X-RAY CHEST 2 VIEW (06/27/2017 9:30 PM) + + + | Specimen | Performing Laboratory | + + + | | [facility] RADIOLOGY VOICE RECOGNITION | + [...] Note | + + | Service Account, [employer] In Interface - 06/28/2017 10:17 AM [...] | >60 | >60 mL/min | | [place]DI[place] | | | + +---------+ + | EGFR NON | >60 | >60 mL/min | | -CANADIAN | | | + +---------+ + | [...] | + + + | Blood | [facility], CORE [address] | | | [place] [address] | + + + + + | [...] | + + + | Urine | [facility], CORE [address] | | | [place] [address] | + + + + + | [...] | + + + | Urine | [facility] LABORATORY [facility] [address] | | | [place] [address] | + + + + + | [...] | + + + | Blood | [facility] LABORATORY [facility] [address] | | | [place] [address] | + + + CULTURE, BLOOD BACTI [...] ------ CULTURE, BLOOD | | BACTI & Y...[[id number]] Final | | result Please view results [...] | SPECIFIC GRAVITY | 1.040 (H)Comment: Specific [place] | 1.005 - 1.030 | | | performed by refractometry | | + + + + + + + | Specimen | Performing Laboratory | + + + | Urine - Bladder | [facility] LABORATORY [facility] [address] | | | [place] [address] | + + + + + | [...] + + | Urine - Bladder | [facility], CORE [address] | | | [place] [address] | + + + ERCP (06/27/2017 6:38 AM) + + + | Specimen | Performing Laboratory | + + + | | [facility] | + + + + + | Narrative | + + | Procedure Date: 06/27/2017 Patient Name: William Burns Order #: | | [id number] Date of : 1935 CSN: [id number] Admit Type: Inpatient Room: SOR | | Procedure: ERCP Indications: For therapy of | | ascending cholangitis; 82 yo M with sepsis, | | elevated LFTs and US showing mary dil and 1.3 cm | | CBD Providers: LYLA Mackay | | MD ERICA (Doctor), JORDY SOLANO, | | RN (Nurse), ESTELA DAMIAN, RN (Machine Maintenance Technician) Referring MD: Requesting | | Provider: Medicines: General Anesthesia, Indomethacin 100 mg CO | | Complications: No immediate complications. Procedure: [...] procedure. The Olympus TJF-Q180V Duodenoscope | | #[id number] was introduced through the mouth, | | and advanced to the duodenum and used to | | inject contrast into the bile duct. The ERCP | | was accomplished without difficulty. The | | patient tolerated the procedure well. Estimated Blood Loss: Estimated blood | | loss: none. Findings: urgent SOR case for ICU patient with acute cholangitis. | | The placement interviewer film was normal. The esophagus was successfully [...] Name: William Burns Order #: | | [id number] Date of : 1935 CSN: [id number] Admit Type: Inpatient Room: SOR | | Procedure: ERCP Indications: For therapy of | | ascending cholangitis; 82 yo M with sepsis, | | elevated LFTs and US showing mary dil and 1.3 cm | | CBD Providers: LYLA Mackay | | MD ERICA (Doctor), JORDY SOLANO, | | RN (Nurse), ESTELA DAMIAN RN (Machine Maintenance Technician) Referring MD: Requesting | | Provider: Medicines: General Anesthesia, Indomethacin 100 mg CO | | Complications: No immediate complications. Procedure: [...] procedure. The Olympus TJF-Q180V Duodenoscope | | #[id number] was introduced through the mouth, | | and advanced to the duodenum and used to | | inject contrast into the bile duct. The ERCP | | was accomplished without difficulty. The | | patient tolerated the procedure well. Estimated Blood Loss: Estimated blood | | loss: none. Findings: urgent SOR case for ICU patient with acute cholangitis. | | The placement interviewer film was normal. The esophagus was successfully [...] | + + + | Blood | [facility] LABORATORY [facility], CORE [address] | | | [place] [address] | + + + + + | [...] + | ECG IMPRESSION | Borderline prolonged CO interval | | + + + + [...] | + + + | | [facility] [address] | | | [place] [address] | + + + OUTSIDE BODY - READ REQUEST (06/27/2017) + + + | Specimen | Performing Laboratory | + + + | | [facility] RADIOLOGY VOICE RECOGNITION | + [...] Note | + --------+ | Service Account, [employer] In Interface - 06/28/2017 9:20 AM PST [...] | + + + | Blood | [facility], CORE [address] | | | [place] [address] | + + + X-RAY ABD LTD FEEDING TUBE EVAL (06/26/2017 8:53 PM)Only the most recent of 5 results with in the time period is included. + + + | Specimen | Performing Laboratory | + + + | | [facility] RADIOLOGY VOICE RECOGNITION | + [...] verifies correct patient, | | procedure, equipment, help desk support and site/side marked as required. CLABSI | [...] + | Tissue - Bile duct | [facility] DEPARTMENT OF PATHOLOGY [address] | | | [place] [address] | + + + CVL (06/26/2017 4:21 [...] A pause verifies correct patient, procedure, equipment, help desk support and | | site/side marked as required. [...] The modified Seldinger technique (a | | mbpechhh-rmss-lmp-hsdmwi-lzyt-tzco-obchstf-hng-nbaawobc) was used for vessel | | cannulation. [...] + + + | Blood | [facility], CORE [address] | | | [place] [address] | + + + LACTATE (06/26/2017 3:39 PM) + +-------+ + | Component | Value | Ref Range | + +-------+ + | LACTATE | 1.3 | mmol/L | + +-------+ + + + + | Specimen | Performing Laboratory | + + + | Blood | [facility], CORE [address] | | | [place] [address] | + + + + + | [...] | + + + | Blood | [facility], CORE [address] | | | [place] [address] | + + + VITAMIN D, 25-HYDROXY, SERUM (06/26/2017 2:01 PM) + +---------+ + | Component | Value | Ref Range | + +---------+ + | VITAMIN D 25 HYDROXY | 8.3 (L) | 30 - 80 ng/mL | + +---------+ + + + + | Specimen | Performing Laboratory | + + + | Blood | [facility], CORE [address] | | | [place] [address] | + + + + + | [...] | + + + | Blood | [facility], CORE [address] | | | [place] [address] | + + + COAGULOPATHY PANEL (INR,APTT,FIBRINOGEN) [...] | + + + | Blood | [facility], CORE [address] | | | [place] [address] | + + + + + | [...] Note | + + | Service Account, [employer] In Interface - 06/26/2017 10:12 AM PST [...] | + + + | Blood | [facility], TRANSFUSION MEDICINE [address] | | | [place] [address] | + + + ANTIBODY SCREEN (06/26/2017 9:40 AM) + + + + | Component | Value | Ref Range | + + + + | Antibody Screen | Negative | | + + + + + + + | Specimen | Performing Laboratory | + + + | Blood | [facility], TRANSFUSION MEDICINE [address] | | | [place] [facility] [place] [address] | + + + TYPE AND SCREEN [...] | ------ ABO & RH | | TYPE[[id number]] F | | inal result ANTIBODY | | SCREEN[[id number]] Fin | | al result Please view [...] | + + + | Blood | [facility], TRANSFUSION MEDICINE [address] | | | [place] [address] | + + + BLOOD CULTURE WORKUP [...] + | Blood - Central line | [facility] [address] [place], [place] | | | [address] | + + + + + | [...] | + + + | Blood | [facility] LABORATORY [facility], CORE [address] | | | [place] [address] | + + + CBC AND AUTO [...] | + + + | Blood | [facility], CORE [address] | | | [place] [address] | + + + MANUAL DIFFERENTIAL (06/26/2017 [...] | + + + | Blood | [facility], CORE [address] | | | [place] [address] | + + + + + | [...] | ------ CBC AND AUTO | | DIFF[[id number]] Abnormal Final | | result MANUAL | | DIFFERENTIAL[[id number]] Abnormal Final | | result RBC MORPHOLOGY[[id number]] | | Normal Final result Please view | | results for these tests on the individual orders. | + + KA-XI-QMM-HB,POC RT (06/26/2017 8:55 AM) + + + [...] | + + + | Blood | [facility], POINT OF CARE TESTS [address] | | | [place] [address] | + + + LAB REPORTS (06/26/2017)RADIOLOGY (06/26/2017)Only the most recent of 3 results within the time period is included.PATHOLOGY (06/26/2017)from Last 3 Months
--- OUTSIDE RECORDS SUMMARY | ~2017-07-16 | XMS | Encounter Summary ---
Demographics + + + | Address | [address] | | | [place] [address] | + + + | Home Phone | | + + + | Preferred Language | Unknown | + + + | Marital Status | Single | + + + | Yazidi Affiliation [...] Team Providers + +------+ + | Care Reeling Machine Setup Operator Name | Role | Phone | [...] | 2018 | Referral | Center at [facility] 4th | MD Rashida [address] | | | | Order | Floor [address] | [facility] | | | | | [facility] | [place], [place] | | | | | Mailcode: [id number] | [address] | | | | | Bonnie Recio | [phone] | | | | | [address] [facility] [place] | | | | | | [address] | | | | | | [phone] | | | +--------+ + + + [...]
--- OUTSIDE RECORDS SUMMARY | ~2017-07-16 | XMS | Encounter Summary ---
Demographics + + + | Address | [address] | | | [place] [address] | + + + | Home Phone | | + + + | Preferred Language | Unknown | + + + | Marital Status | Single | + + + | Moravian Affiliation [...] Team Providers + +------+ + | Care Area Intelligence Technician Name | Role | Phone | [...] | | thiasis | Mitesh Pérez | [facility] | | | | | Procedures | [facility] | Mailcode: | | | | | CONSULT TO | [place], [place] | [id number] | | | | | GI | [address] | [place] | | | | | PROCEDURE: | Phone: | [address] | | | | | ERCP / | [phone] | [place], | | | | | BILIARY | Fax: | [place] [address] | | | | | MANOMETRY | [phone] | Phone: | | | | | | | [phone] | | | | | | | Fax: | | | | | | | [phone] | +--------+--------+ + + + + Encounter Details +--------+ + + + + | Date | Type | Department | Care Team | Description | +--------+ + + + + | 06/27/ | [facility] | Digestive Health | [place] | Choledocholithiasis | | 2018 | | Center at [facility] 6th | MD Rashida [address] | (Primary Dx) | | | | Floor [address] | [address] | | | | | [place] Mailcode: [id number] | [place], [place] | | | | | [facility] | [address] | | | | | and Healing, 6th | [phone] | | | | | floor [place], [place] | | | | | | [address] | | | | | | [phone] | | | +--------+ + + + [...]
--- OUTSIDE RECORDS SUMMARY | ~2017-07-16 | XMS | Encounter Summary ---
Demographics + + + | Address | [address] | | | [place] [address] | + + + | Home Phone [...] Team Providers + +------+ + | Care Assembler Knife Name | Role | Phone | + [...] | ERCP | | 2018 | | [facility] | MD Rashida [address] [facility] | | | | | Admitting Desk | [facility] | | | | | Located on the 9 | [place], [place] | | | | | [address] | [address] | | | | | [facility] | [phone] | | | | | [place], [place] | | | | | | [address] | | | +--------+---------+ + + + [...] be different from the original. [facility] Discharge Summary Discharging Provider: VIRGIL GRIMM [...] Your Medications These medications were sent to [id number] [place] [address], [place] [address] Hours: 9AM-7PM MON - FRI / 9AM-6PM [...] Care Provider, please call and ask the prefinish operator to page the attending physician, Vic Petty MD, wh o was caring for you at discharge. If that physician is not available, ask the prefinish operator to page the physician ion implant machine operator for the Medical Teaching Service. Call [...] that I, or Nurse Practitioner or Physician Neonatal Nurse Practitioner working with me, had a face to face encounter with this patient on 06/30/2017 On behalf of Attending Physician: Vic Petty MD I am ordering and certify that the following services are medically necessary home health s [facility] Physical Therapy Evaluate and Treat I certify that the patient is homebound based on the following clinical findings Post-hospi tono weakness, decreased strength and endurance, and tires easily with minimal exertion Follow Up: Schedule the following appointment(s) when you get home DARYL MATHEWS MD . Specialty: Internal Medicine Contact information [facility] [address] [place] [address] [address] [facility] [phone] Discharge Physical Exam: Last 24 hour min/max [...] elevation myocardial infarction (NSTEMI), type 2 ([facility]) 12) Acute respiratory failure with hypoxia ([facility]) Please refer to the resident discharge summary for additional details. Vic Petty MD, PhD Clinical Hospitalist and Medicine Teaching Services [facility] [place] Pager [phone] I have spent 35 minutes with the [...] may be different from the original. PHYSICIAN OFFICE 365 CONSULTANT STUDENT PROGRESS NOTE FOR EDUCATIONAL PURPOSES ONLY [...] Q2H PRN ipratropium-albuterol 3 mL Q6H PRN mslqnpjf-hljyyln-gyfbzqgu-zinc QID PRN oxyCODONE (immediate release) 2.5-5 mg [...] Code status: FULL SHAHEEN Oconnell-Sherman [facility] Physician Neonatal Nurse Practitioner Program 06/29/17 Vic Petty MD - 06/29/2017 [...] Active Hospital Problems 1) *Septic shock ([facility]) 2) Choledocholithiasis 3) Acute cholangitis 4) Klebsiella sepsis ([facility]) 5) Aspiration pneumonitis ([facility]) 6) S/P ERCP 7) COPD (chronic obstructive pulmonary disease) ([facility]) 8) Essential hypertension 82 year-old man with [...] Hospitalist and Medicine Teaching Services [facility] [place] Pager [phone] I have spent 26 minutes with the [...] interval not displayed. Micro: BLOOD CULTURE WORKUP [[id number]] (Abnormal) [facility] LAB Collected: 06/26/17 0939 Lab [...] elevation myocardial infarction (NSTEMI), type 2 ([facility]) 11) Acute respiratory failure with hypoxia ([facility]) Assessment: William Burns is a 82 y.o. [...] Primary Surrogate Decision Maker [place] Daughter [phone] Dimas Xavier MD Internal Medicine, PGY-3 #[id number] Gokul Brown MD - 06/28/2017 2:26 PM [...] management as outpatient (pt prefers facility near [place]) --> if develops post ERCP complications or [...] may be different from the original. PHYSICIAN OFFICE 365 CONSULTANT STUDENT PROGRESS NOTE FOR EDUCATIONAL PURPOSES ONLY [...] Q2H PRN ipratropium-albuterol 3 mL Q6H PRN axwrgvhd-cppkoya-hsukdpre-zinc QID PRN oxyCODONE (immediate release) 2.5-5 mg [...] on klebsiella cultures for sensitivity. Spoke with Promotional Marketing Agent at [facility] @1330, N o sensitivity results yet from [...] Code status: FULL DOREEN Oconnell [facility] [place] Physician Neonatal Nurse Practitioner Program 06/28/17 Alisha Maynard MD - 06/27/2017 [...] 86 87 78 HCO3 22 24 23 [id number] 24 25 24 H5BVIANN 96.4 97.0 96.8 FIO2 0.80 0.25 0.21 [...] [facility] 7A [address] [place] [address] Camilo Arreguin MD - 06/27/2017 6:00 AM PSTFormatting of this note may be different from th carey original. [facility] MEDICAL ICU [...] 6.5 mL/Kg (459.6 mL) RR: 22 bpm Shattuck BW: 70.7 kg FiO2 21 fraction of [...] 87 78 HCO3 -- 22 24 23 VCB1YCA6 -- 108* 348 371 VBGPH 7.27* -- [...] Primary Surrogate Decision Maker Sharon [place] Daughter [phone] This patient was staffed with Dr. Maynard, [...] duct clearance Rene Maldonado MD Gastroenterology Pager [phone] -Rene Maldonado MD - 06/26/2017 4:38 PM PSTFormatting of this note may be different from the original. PRE PROCEDURE NOTE: MR# [id number] Subjective: William Burns is a 82 y.o. [...] 4 hours. Concern for choledocholithiasis. Transferred t [facility] this morning. Has history of [...] results for input(s): PH, PCO2, PO2, HCO3, HUVWB1JTD, G3WREZTZ, K5MLXWSRY, FIO2 in the l ast 72 hours. [...] CENTER [address]A [address] [place] [phone] in this encounter Plan of Treatment Not [...] [facility] CORE [address] [facility] | | | [place] [address] | + + + MAGNESIUM, PLASMA (06/29/2017 3:24 AM) + +-------+ + | Component | Value | Ref Range | + +-------+ + | MAGNESIUM,PLASMA | 1.9 | 1.6 - 2.6 mg/dL | + +-------+ + + + + | Specimen | Performing Laboratory | + + + | Blood | [facility] LABORATORY SERVICES, CORE [address] | | | [place] [address] | + + + + + | [...] | >60 | >60 mL/min | | [place] | | | + +---------+ + | EGFR NON | >60 | >60 mL/min | | -[place] | | | + +---------+ + | [...] [facility], CORE [address] | | | [place] [address] | + + + + + | [...] | | ------ CBC (HEMOGRAM) | | ONLY[[id number]] Abnormal Final | | result Please view [...] [facility], CORE [address] | | | [place] [address] | + + + US ABDOMEN LIMITED [...] Note | + + | Service Account, [employer] In Interface - 06/28/2017 5:02 PM [...] [address] | | | [place] [address] | + + + CBC (HEMOGRAM) ONLY [...] [facility] LABOR[facility]ORY SERVICES, CORE [address] [place] [address] | | | [place] [address] | + + + CBC ONLY (06/28/2017 3:30 AM) + + + | Specimen | Performing Laboratory | + + + | Blood | | + + + + + | Narrative | + + | The following orders were created for panel order CBC ONLY. | | Procedure | | Abnormality Status | | --------- | | ------ CBC (HEMOGRAM) | | ONLY[[id number]] Abnormal Final | | result Please view [...] [facility] LABORATORY SERVICES, CORE [address] [place] [address] | | | [place] [address] | + + + COMPLETE METABOLIC SET [...] | >60 | >60 mL/min | | [place] | | | + +---------+ + | EGFR NON | >60 | >60 mL/min | | -[place] | | | + +---------+ + | [...] + | Blood | [facility], [facility] [address] | | | [place] [address] | + + + + + | [...] | + + + | Blood | [facility] SERVICES, CORE [address] [facility] [address] [facility] | | | [place] [address] | + + + + + | [...] + + | | [facility], POINT OF CARE TESTS [address] | | | [place] [address] | + + + X-RAY CHEST 2 [...] Note | + + | Service Account, [employer] In Interface - 06/28/2017 10:17 AM PST [...] [address] | | | [place] [address] | + + + CAPILLARY BLOOD GLUCOSE (NO CHG), POC (06/27/2017 1:39 PM) + +---------+ + | Component | Value | Ref Range | + +---------+ + | BLOOD GLUCOSE, POC | 170 (H) | 70 - 99 mg/dL | + +---------+ + + + + | Specimen | Performing Laboratory | + + + | | [facility], POINT OF CARE TESTS [address] | | | [place] [address] | + + + BASIC METABOLIC SET [...] | >60 | >60 mL/min | | [place] | | | + +---------+ + | EGFR NON | >60 | >60 mL/min | | -[place]SHALLESE | | | + +---------+ + | [...] [facility], CORE [address] [facility] | | | [place] [address] | + + + + + | [...] Urine | [facility], CORE [address] [facility] | | | [place] [address] | + + + + + | [...] Urine | [facility], CORE [address] [facility] [facility] | | | [place] [address] | + + + + + | [...] [facility], CORE [address] [facility] | | | [place] [address] | + + + CULTURE, BLOOD BACTI [...] ------ CULTURE, BLOOD | | BACTI & Y...[[id number]] Final | | result Please view results [...] | Blood - Arm - left | [facility] SERVICES, CORE [address] [place] [address] | | | [place] [address] | + + + CULTURE, BLOOD BACTI [...] ------ CULTURE, BLOOD | | BACTI & Y...[[id number]] Final | | result Please view results [...] [address] | | | [place] [address] | + + + URINE, MICROSCOPIC EXAM [...] Bladder | [facility] LABORATORY [facility] [address] | | | [place] [address] | + + + LYNDONBRITTANY ONLY (06/27/2017 [...] | SPECIFIC GRAVITY | 1.040 (H)Comment: Specific [address] [place] | 1.005 - 1.030 | | | performed by refractometry | | + + + + + + + | Specimen | Performing Laboratory | + + + | Urine - Bladder | [facility], CORE [address] | | | [place] [address] | + + + + + | [...] Name: William Burns Order #: | | [id number] Date of : 1935 CSN: [id number] Admit Type: Inpatient Room: [facility] | | Procedure: ERCP Indications: For therapy of | | ascending cholangitis; 82 yo M with sepsis, | | elevated LFTs and US showing mary dil and 1.3 cm | | CBD Providers: RENE Mackay | | MD ERICA (Doctor), JORDY SOLANO, | | RN (Nurse), ESTELA DAMIAN RN (Road Gang Supervisor) Referring MD: Requesting | | Provider: Medicines: [...] procedure. The Olympus TJF-Q180V Duodenoscope | | #[id number] was introduced through the mouth, | | and advanced to the duodenum and used to | | inject contrast into the bile duct. The ERCP | | was accomplished without difficulty. The | | patient tolerated the procedure well. Estimated Blood Loss: Estimated blood | | loss: none. Findings: urgent SOR case for ICU patient with acute cholangitis. | | The second vp hr assessment film was normal. The esophagus was successfully [...] Name: William Burns Order #: | | [id number] Date of : 1935 CSN: [id number] Admit Type: Inpatient Room: [facility] | | Procedure: ERCP Indications: For therapy of | | ascending cholangitis; 82 yo M with sepsis, | | elevated LFTs and US showing mary dil and 1.3 cm | | CBD Providers: RENE Mackay | | MD ERICA (Doctor), JORDY SOLANO, | | RN (Nurse), ESTELA DAMIAN, RN (Road Gang Supervisor) Referring MD: Requesting | | Provider: Medicines: [...] procedure. The Olympus TJF-Q180V Duodenoscope | | #[id number] was introduced through the mouth, | | and advanced to the duodenum and used to | | inject contrast into the bile duct. The ERCP | | was accomplished without difficulty. The | | patient tolerated the procedure well. Estimated Blood Loss: Estimated blood | | loss: none. Findings: urgent SOR case for ICU patient with acute cholangitis. | | The second vp hr assessment film was normal. The esophagus was successfully [...] | + + + | Blood | [facility] SERVICES, CORE [address] [place] [address] | | | [place] [address] | + + + + + | [...] [facility], CORE [address] [facility] | | | [place] [address] | + + + + + | [...] [facility], CORE [address] [facility] | | | [place] [address] | + + + CBC ONLY (06/27/2017 12:43 AM) + + + | Specimen | Performing Laboratory | + + + | Blood | | + + + + + | Narrative | + + | The following orders were created for panel order CBC ONLY. | | Procedure | | Abnormality Status | | --------- | | ------ CBC (HEMOGRAM) | | ONLY[[id number]] Abnormal Final | | result Please view [...] | >60 | >60 mL/min | | [place] | | | + +---------+ + | EGFR NON | >60 | >60 mL/min | | -MARSHALLESE | | | + +---------+ + | [...] Blood | [facility] LABORATORY [facility], CORE [address] | | | [place] [address] | + + + + + | [...] + | | [facility] DEPT OF CARDIOLOGY [address] [place] [address] | | | [place] [address] | + + + OUTSIDE BODY - [...] [facility], CORE [address] | | | [place] [address] | + + + CAPILLARY BLOOD GLUCOSE (NO CHG), POC (06/26/2017 9:57 PM) + +---------+ + | Component | Value | Ref Range | + +---------+ + | BLOOD GLUCOSE, POC | 194 (H) | 70 - 99 mg/dL | + +---------+ + + + + | Specimen | Performing Laboratory | + + + | | [facility], POINT OF CARE TESTS [address] | | | [place] [address] | + + + X-RAY ABD LTD [...] | + + | Service Account, [employer] In Interface - 06/27/2017 9:07 AM PST [...] + | | [facility] POINT OF [facility] TESTS [address] | | | [place] [address] | + + + 12 LEAD ECG [...] Laboratory | + + + | | [facility] [address] [place] [address] | | | [place] [address] | + + + ONESIMO WTAKINS (06/26/2017 5:10 PM) + + | Narrative [...] verifies correct patient, | | procedure, equipment, client support analyst and site/side marked as required. [...] [facility] DEPARTMENT OF PATHOLOGY [address] [facility] | | | [place] [address] | + + + CVL (06/26/2017 4:21 [...] A pause verifies correct patient, procedure, equipment, client support analyst and | | site/side marked [...] The modified Seldinger technique (a | | mmbzxhuq-tgnd-jkd-bdybmx-efhh-naky-arznyua-wqx-kkvllvgt) was used for vessel | | cannulation. [...] [facility] LABORATORY SERVICES, CORE [address] [place] [address] | | | [place] [address] | + + + CBC (HEMOGRAM) ONLY [...] [facility] CENTER LABORATORY SERVICES, CORE [address] | | | [place] [address] | + + + LACTATE (06/26/2017 3:39 PM) + +-------+ + | Component | Value | Ref Range | + +-------+ + | LACTATE | 1.3 | mmol/L | + +-------+ + + + + | Specimen | Performing Laboratory | + + + | Blood | [facility] LABORATORY SERVICES, CORE [address] | | | [place] [address] | + + + + + | [...] | | ------ CBC (HEMOGRAM) | | ONLY[[id number]] Abnormal Final | | result Please view [...] [facility], CORE [address] [facility] | | | [place] [address] | + + + COMPLETE METABOLIC SET [...] | >60 | >60 mL/min | | [place] | | | + +---------+ + | EGFR NON | >60 | >60 mL/min | | -MARSHALLESE | | | + +---------+ + | [...] [facility] LABORATORY SERVICES, CORE [address] [facility] | | | [place] [address] | + + + + + | [...] Laboratory | + + + | | [facility] CARDIOLOGY [address] [place] [address] | | | [place] [address] | + + + BLOOD GASES, ARTERIAL [...] [facility] LABORATORY SERVICES, CORE [address] [place] [address] | | | [place] [address] | + + + VITAMIN D, 25-HYDROXY, SERUM (06/26/2017 2:01 PM) + +---------+ + | Component | Value | Ref Range | + +---------+ + | VITAMIN D 25 HYDROXY | 8.3 (L) | 30 - 80 ng/mL | + +---------+ + + + + | Specimen | Performing Laboratory | + + + | Blood | [facility], CORE [address] [place] [address] | | | [place], [place] [address] | + + + + + | [...] [facility], CORE [address] [facility] | | | [place] [address] | + + + X-RAY ABD LTD [...] Note | + + | Service Account, [employer] In Interface - 06/26/2017 12:57 PM PST [...] | + + + | Blood | [facility] SERVICES, CORE [address] [facility] [facility] | | | [place] [address] | + + + + + | [...] Note | + + | Service Account, [employer] In Interface - 06/26/2017 12:55 PM PST [...] Note | + + | Service Account, [employer] In Interface - 06/26/2017 10:12 AM [...] [facility], TRANSFUSION MEDICINE [address] [place] [address] | | | [place] [address] | + + + ANTIBODY SCREEN (06/26/2017 9:40 AM) + + + + | Component | Value | Ref Range | + + + + | Antibody Screen | Negative | | + + + + + + + | Specimen | Performing Laboratory | + + + | Blood | [facility] LABORATORY SERVICES, TRANSFUSION MEDICINE [address] [facility] | | | [place] [address] | + + + ABO & RH [...] | + + + | Blood | [facility] SERVICES, TRANSFUSION MEDICINE [address] [place] [address] | | | [place] [address] | + + + TYPE AND SCREEN [...] | ------ ABO & RH | | TYPE[[id number]] F | | inal result ANTIBODY | | SCREEN[[id number]] Fin | | al result Please view [...] + + | ECG IMPRESSION | Prolonged TX interval | | + + + + | ECG IMPRESSION | Right bundle branch block- ABNORMAL ECG - | | + + + + | ECG IMPRESSION | Electronically signed by: ASHWINI RUEDA | | | | 06-26-2017 11:23:50 | | + + + + + + + | Specimen | Performing Laboratory | + + + | | [facility] [address] [place] [address] | | | [place] [address] | + + + BLOOD CULTURE WORKUP (06/26/2017 9:39 AM) + + + + | Component | Value | Ref Range | + + + + | CULTURE RESULT | Klebsiella oxytoca (A) | | + + + + + + + | Specimen | Performing Laboratory | + + + | Blood - Central line | [facility] [address] [place], [place] | | | [address] | + + + + + | [...] + + | Blood - Arterial | [facility] [place] [address], [place] | | line | [address] | + + + + + | [...] + | Blood - Central line | [facility], CORE [address] | | | [place] [address] | + + + + + | [...] | | ------ BLOOD CULTURE | | WORKUP[[id number]] Abnormal Final | | result CULTURE, BLOOD BACTI & | | Y...[[id number]] Abnormal Final result | | Please view [...] [facility], CORE [address] [facility] | | | [place] [address] | + + + MANUAL DIFFERENTIAL (06/26/2017 [...] | Blood | [facility], CORE [address] | | | [place] [address] | + + + + + | [...] Arterial | [facility] LABORATORY [facility], CORE [address] [place] [address] | | line | [place] [address] | + + + + + | [...] [facility] LABORATORY SERVICES, CORE [address] [place] [address] | | | [place] [address] | + + + CULTURE, BLOOD BACTI [...] | | ------ BLOOD CULTURE | | WORKUP[[id number]] Abnormal Final | | result CULTURE, BLOOD BACTI & | | Y...[[id number]] Abnormal Edited Result - FINAL | | [...] | ------ CBC AND AUTO | | DIFF[[id number]] Abnormal Final | | result MANUAL | | DIFFERENTIAL[[id number]] Abnormal Final | | result RBC MORPHOLOGY[[id number]] | | Normal Final result Please view [...] | Blood | [facility], CORE [address] [facility] | | | [place] [address] | + + + MAGNESIUM, PLASMA (06/26/2017 9:30 AM) + +-------+ + | Component | Value | Ref Range | + +-------+ + | MAGNESIUM,PLASMA | 1.8 | 1.6 - 2.6 mg/dL | + +-------+ + + + + | Specimen | Performing Laboratory | + + + | Blood | [facility], CORE [address] [facility] | | | [place] [address] | + + + + + | [...] | >60 | >60 mL/min | | [place] | | | + +---------+ + | EGFR NON | >60 | >60 mL/min | | -MARSHALLESE | | | + +---------+ + | [...] Blood | [facility] LABORATORY [facility] [place] [address] | | | [place] [address] | + + + + + | [...] [facility], CORE [address] [facility] | | | [place] [address] | + + + UC-YE-KYE-HB,POC RT (06/26/2017 8:55 AM) + + + [...] | + + + | Blood | [facility], POINT OF [facility] TESTS [address] | | | [place] [address] | + + + LAB REPORTS (06/26/2017)PATHOLOGY [...] 2 HOURS | | | NEEDED, Starting [facility] 06/28/17 at | | | 1352, [...]
--- OUTSIDE RECORDS SUMMARY | ~2017-07-16 | XMS | Encounter Summary ---
Demographics + + + | Address | [address] | | | [place] [address] | + + + | Home Phone | | + + + | Preferred Language | Unknown | + + + | Marital Status | Single | + + + | Oriental Orthodox [...] Team Providers + +------+ + | Care Corrosion Control Engineer Name | Role | Phone | + +------+ + | Daryl March MD | PCP | | + +------+ + Encounter Details +--------+ + + + + | Date | Type | Department | Care Team | Description | +--------+ + + + + | 06/28/ | Document-Sc | Health Information | Other, Faculty | | | 2018 | anned | Services [address] | [phone] | | | | | [address] | | | | | | Road Mailcode: | | | | | | [address] | | | | | | [facility] | | | | | | [place], [place] | | | | | | [address] | | | | | | [phone] | | | +--------+ + + + [...]
--- OUTSIDE RECORDS SUMMARY | ~2017-07-16 | XMS | Encounter Summary ---
Demographics + + + | Address | [address] | | | [place] [address] | + + + | Home Phone | | + + + | Preferred Language | Unknown | + + + | Marital Status | Single | + + + | Taoist Affiliation [...] Team Providers + +------+ + | Care Calendering Supervisor Name | Role | Phone | [...] | 2018 | anned | Services [address] | [phone] | | | | | [address] | | | | | | Road Mailcode: | | | | | | [address] | | | | | | [facility] | | | | | | [place], [place] | | | | | | [address] | | | | | | [phone] | | | +--------+ + + + [...]
--- OUTSIDE RECORDS SUMMARY | ~2017-07-16 | XMS | Encounter Summary ---
Demographics + + + | Address | [address] | | | [place] [address] | + + + | Home Phone [...] Team Providers + +------+ + | Care Switchboard Operator Receptionist Name | Role | Phone | + +------+ + | Daryl March MD | PCP | | + +------+ + Encounter Details +--------+ + + + + | Date | Type | Department | Care Team | Description | +--------+ + + + + | 06/26/ | Procedure | 6A Intra Op [facility] | | | | 2017 | Pass | [facility] | | | | | | Admitting Desk | | | | | | Located on the 9th | | | | | | floor [address] [facility] | | | | | | [facility] | | | | | | [place], [place] | | | | | | [address] | | | +--------+ + + + [...]
[~2017-07-16 01:36] MED LIST changes: +NORCO 5-325 TA1 EACH PO
--- NOTE | 2017-07-16 05:52 | NUR ---
82YR OLD MAN ADMITTED FROM ER VIA STRETCHER TO ROOM 112. PT IS ALERT, ORIENTED, ABLE TO STAND AND TRANSFER SELDF ONTO BED. REPORTS ABD PAIN 1/10 SINCE RECIEVING PAIN MED IN ER, DENIES NAUSEA. IN BED WITH WARM BLANKET. ORIENTED TO ROOM AND CALL LIGHT. ORDERS NOTED.
--- NOTE | 2017-07-16 05:55 | NUR ---
SAT UP ON EDGE OF BED TO USE URINAL. VOIDED 400ML YELLOW URINE.
--- NOTE | 2017-07-16 08:43 | NUR ---
Pt states he is comfortable, achey upper abd, unable to pass flatus, AM meds given, oxygen 2 liters per n/c diminished lung sounds, rt eye lid turns in so pt has taped his cheek to pull down lid for comfort. ,Abd.with healing 5 healing sites from gallbladder surgery, suters intact on RUQ no redness or significant bruising at sites. Abd stained orange/yellow from previous surgery. 1+ ankle edema, pulses intact. pt comments has a sinus infection now and is a little more SOB than normal. Oxygen in place.
--- NOTE | 2017-07-16 08:58 | NUR ---
SCD'S HAVE BEEN PLACED. URINAL EMPTIED. CALL LIGHT IS IN REACH.
--- NOTE | 2017-07-16 09:41 | NUR ---
PATIENT REFUSED BREAKFAST. THIS GRIP TALKED PATIENT INTO EATING SOME FRUIT AND TRY A CLEAR ENSURE.
--- NOTE | 2017-07-16 10:41 | NUR ---
1035 PATIENT IS AMBULATING ON ROOM AIR. O2 SAT CHECK IS 84%. 1040 PATIENT AMBULATING ON 1L OF 02 AND SAT CHECK IS 91%
--- NOTE | 2017-07-16 10:47 | NUR ---
STUDENT NURSE ASKED FOR HELP WITH PT. THIS RN RESPONDED. PT IS BACK TO ROOM FROM A WALK. IV PUMP RECONNECTED AND FLUIDS RESTARTED. SCD'S ATTACHED AND RUNNING. PT REPORTS "NOT FEELING WELL." O2 RUNNING AT 1 L. PT ADVISED THAT HIS RN WILL BE CONTACTED. PTS RN INFORMED. BED RAILS UP. CALL LIGHT WITHIN REACH. FRIEND AT BEDSIDE.
--- NOTE | 2017-07-16 12:47 | NUR ---
PT WELCOMED ME INTO HIS RM. HE WAS LAYING ON THE BED, SEEMED ANXIOUS TO VISIT. THE MORE WE BEGAN TO VISIT, THE MORE HIS STORY, AND WHAT HE WAS TELLING ME ABOUT HIS MED. HISTORY-SEEMED A LITTLE CONFUSED. HE HAD A VISITOR COME IN, I LEFT SO THEY COULD SPEND TIME TOGETHER. I THEN SHARED WITH SARI MURPHY ABOUT OUR CONVERSATION, AND SHE SHARED WITH ME THAT THE DATES AND TIMELINES PT EXPRESSED WELL SOME OF THE TREATMENT HE RECEIVED WERE INACCURATE. SHE WILL SHARE THIS WITH THE HOSPITALIST. WILL FOLLOW NEEDED
--- NOTE | 2017-07-16 13:30 | NUR ---
PATIENT UP TO BATHROOM FROM BED WITH STANDBY ASSIST. FRESH ICE WATER GIVEN. PATIENT DRANK HIS ENSURE AND ATE HIS FRUIT THAT WAS GIVEN THIS AM. PATIENT REFUSE ANYMORE TO EAT AT THIS. TIME.
--- NOTE | 2017-07-16 14:04 | NUR ---
Pt assisted to bathroom, passing flatus,no bm, pt states he is feeling better. abd slightly distended, substernal retractions slight noted, RT updated and will be here to do a treatment, lungs diminished throughout
--- NOTE | 2017-07-16 16:30 | NUR ---
PATIENT IN BED. RN AND RT IN ROOM. NO NEEDS AT THIS TIME.
--- NOTE | 2017-07-16 17:10 | NUR ---
Pt continues to have some abdominal discomfort, pt has passed flatus today, no stool . Pt has had the meds ordered, denies pain med at this time but states pain is 4/10. Has ambulated twice today , required oxygen 1 liter while up. Has also had 2 respiratory treatments and he states this helps his respiratory effort. He states his sinuses are still congested, Nose spray hasn't improved his congestion. He states his right eye is slightly bothersome, he states he has had 5 eye surgeries, but claims his discomfort may be due to sinus congestion. no drainage from rt eye, lower lid slightly reddened and puffy. lungs diminished throughout, doing Insentive spirometer 1750 reading. abd sites wnl x 5 scd's on while in bed. daughter Marianna in to visit has also had prune juice and warm peppermint tea and a duccolax suppository
--- NOTE | 2017-07-16 18:34 | NUR ---
PT HAS DONE WELL TODAY, TOLERATED ADVANCING DIET WITHOUT N/V, HAS HAD BM, LOOSE. ABD SLIGHTLY DISTENDED BUT NO TENDER TO TOUCH, PT STATES IT IS MUCH LESS THAN YESTERDAY.
--- NOTE | 2017-07-16 19:48 | NUR ---
RECEIVED REPORT FROM DAY SHIFT RN. PATIENT IS RESTING IN BED WATCHING TV. PATIENT DENIES ANY NEEDS AT THIS TIME. CALL LIGHT IN REACH.
--- NOTE | 2017-07-16 20:54 | NUR ---
PATIENT ASSESMENT COMPLETED. PATIENT IS RESTING IN BED. PATIENT DENIES ANY PAIN OR NAUSEA. PATIENT HAS X4 LAP SITES THAT ARE OPEN TO AIR, CLEAN, DRY, AND INTACT. PATIENT ALSO HAS X2 SURGICAL SITES ON HIS UPPER LEFT CHEST THAT ARE CLEAN, DRY, AND INTACT. ALL SURGICAL SITES ARE WELL APPROXIMATED. PATIENTS EVENING MEDICATIONS GIVEN AT THIS TIME. PATIENTS BOWEL SOUNDS ARE ACTIVE. PATIENT DENIES ANY FURTHER NEEDS AT THIS TIME. CALL LIGHT IN REACH.
--- NOTE | 2017-07-16 22:49 | NUR ---
PATIENT IS RESTING IN BED ON HIS RIGHT SIDE. PATIENTS BREATHING IS EVEN AND UNLABORED, RR 16. CALL LIGHT IN REACH.
--- NOTE | 2017-07-16 23:51 | NUR ---
PATIENT ASSISTED TO THE RESTROOM BY ELECTRONIC PREPRESS TECHNICIAN. PATIENT WAS HAD A TINY BM. PATIENT IS BACK IN BED RESTING. RT IN ROOM TO ADMINISTER TREATMENT. NO NEEDS NOTED. CALL LIGHT IN REACH.
--- NOTE | 2017-07-17 02:31 | NUR ---
PATIENT ASSISTED TO THE RESTROOM A SBA. PATIENT WAS ABLE TO VOID. PATIENT IS NOW BACK IN BED RESTING. PATIENT DENIES ANY PAIN OR NAUSEA. NO FURTHER NEEDS NOTED. CALL LIGHT IN REACH.
--- NOTE | 2017-07-17 04:41 | NUR ---
PATIENT IS RESTING IN BED WITH EYES CLOSED, RR 16. CALL LIGHT IN REACH.
--- NOTE | 2017-07-17 04:52 | NUR ---
PATIENT RESTED WELL THROUGHOUT THE SHIFT. PATIENT IS A SBA AND IS STEADY ON HIS FEET. PATIENT IS ON A REG DIET, NO COMPLAINTS OF NAUSEA. PATIENT WAS ABLE TO HAVE X2 TINY BM'S. PATIENT IS ON 1L VIA NC. PATIENT HAS SCDS IN PLACE. PATIENT HAS X2 SURGICAL SITES ON HIS UPPER LEFT CHEST, AND X4 LAP SITES THAT ARE OPEN TO AIR AND WELL APPROXIMATED. PATIENT IS AAOX3 AND USES CALL LIGHT APPROPRIATELY.
--- NOTE | 2017-07-17 06:58 | NUR ---
ORDERED PATIENT'S BREAKFAST.
--- NOTE | 2017-07-17 07:30 | EKG ---
[facility] [address] [facility] [place] [address] Signed Atrial fibrillation Right bundle branch block Abnormal ECG When compared with ECG of 12-JUL-2017 08:06, Atrial fibrillation has replaced Sinus rhythm Confirmed by DONY SOUTH MD ([id number]) on 07/17/2017 7:30:03 AM Electronically Signed By: DONY SOUTH MD 07/17/17 0730 PATIENT NAME: NATALIEDSON SOTO Electrocardiogram DATE OF : 35 PHYSICIAN: DONY SOUTH MD REPORT #: [id number] REPORT IS CONFIDENTIAL AND NOT TO BE RELEASED WITHOUT AUTHORIZATION
--- NOTE | 2017-07-17 08:54 | NUR ---
PATIENT RELAXING IN BED, LIGHT SIDE, EYES CLOSED. PATIENT AGREED TO SHOWER LATER, VITALS DONE. CALL LIGHT IN REACH. NO OTHER NEEDS AT THIS TIME.
--- NOTE | 2017-07-17 10:07 | NUR ---
recieved report from shift commander rn. pt is in bed. pt reports no wilder n at this time. abdomen is tender and moderately distended. bowel tones active. lungs sound dim. pt is on 1l nc. scd's in place. pt is a/o. 1 bottle bowel prep almost done. pt has d5lr infusing @ 75. cms intact. rr wnl. call light within reach. no other needs at this time.
--- NOTE | 2017-07-17 11:55 | NUR ---
pt up for lunch. bowel tones hyperactive. pt on 2nd bowel prep bottle. reports pain 4/10 in abdomen. pain is tollerable without intervention. call lgith within reach. no other needs at this time.
--- NOTE | 2017-07-17 12:18 | NUR ---
pt ate all of lunch. reports food help decrease pain in abdomen. potassium given. fluids runnngat 75ml/hr. no other needs at this time. call light wtihin reach
--- NOTE | 2017-07-17 14:29 | NUR ---
PT LAYING IN BED, WELCOMED ME IN. I COULD TELL HE WAS TRYING TO REST, WILL COME BACK LATER. EXTENDED A BLESSING
--- NOTE | 2017-07-17 14:50 | NUR ---
PATIENT UP TO BATHROOM WITH STAND BY ASSIST. PATIENT STATED THAT HE WOULD LIKE TO TAKE A WALK LATER AND POSSIBLY TAKE A SHOWER IF HE FEELS UP TO IT.
--- NOTE | 2017-07-17 17:56 | NUR ---
PT UP TO BATHROOM AND HAD A LARGE BM. STATES HE FEELS MUCH BETTER. REPORTS NO PAIN IN ABDOMEN.
--- NOTE | 2017-07-17 18:35 | NUR ---
BOWEL PREP DONE. LARGE BOWEL MOVEMENT. NO PAIN IN [id number]. IDIPEWNDENT IN ROOM. D5LR 75. IV LAC OP SITES C/D/I. AAOX3. 1L O2.
--- NOTE | 2017-07-17 18:52 | NUR ---
PATIENT RELAXING IN BED, VITALS AND I/O'S DONE. PULSE WAS VERY HIGH, RN KALIE WAS NOTIFIED. 1 PERSON ASSIST TO BATHROOM AND BACK TO BED. RN IN ROOM, CALL LIGHT IN REACH.
--- NOTE | 2017-07-17 20:03 | NUR ---
RECEIVED REPORT FROM DAY SHIFT RN. PATIENT IS RESTING IN BED WATCHING TV. PATIENT DENIES ANY NEEDS CALL LIGHT IN REACH
--- NOTE | 2017-07-17 21:48 | NUR ---
PATIENTS ASSESMENT COMPLETED. PATIENTS IV NO LONGER PATENT. NEW IV STARTED. PATIENT TOLERATED ACTIVITY WELL. PATIENTS EVENING MEDICATIONS GIVEN PER ORDER. PATIENT DENIES ANY PAIN. PATIENTS X4 LAP SITES, OPEN TO AIR, C/D/I, AND WELL APPROXIMATED. PATIENTS X2 RIGHT UPPER CHEST INCISIONS ARE C/D/I, OPEN TO AIR AND WELL APPROXIMATED. PATIENT HAS HAD MULTIPLE BMS TODAY. SENNA REFUSED. NO FURTHER NEEDS NOTED. CALL LIGHT IN REACH.
--- NOTE | 2017-07-17 23:33 | NUR ---
PATIENT IS RESTING IN BED WITH EYES CLOSED. BREATHING IS EVEN AND UNLABORED, RR 17. CALL LIGHT IN REACH. SON IS ASLEEP ON THE COUCH.
--- NOTE | 2017-07-17 23:41 | NUR ---
PATIENT IS RSETING IN BED. PATIENT WAS JUST UP USING URINAL. PATIENTS URINAL DUMPED. PATIENT DENIES ANY NEEDS AT THIS TIME. CALL LIGHT IN REACH. PATIENT REMAINS INDEPENT IN THE ROOM.
--- NOTE | 2017-07-18 00:05 | NUR ---
HELPED PT TO RESTROOM, PT DENIES FURTHER NEEDS AT THIS TIME. CALL LIGHT IS WITHIN REACH.
--- NOTE | 2017-07-18 02:11 | NUR ---
PATIENT IS RESTING IN BED ON HIS RIGHT SIDE. PATIENTS BREATHING IS EVEN AND UNLABORED, RR 17. CALL LIGHT IN REACH.
--- NOTE | 2017-07-18 04:08 | NUR ---
PATIENT IS RESTING IN BED WITH EYES CLOSED, RR 17. CALL LIGHT IN REACH.
--- NOTE | 2017-07-18 05:05 | NUR ---
PATIENT RESTED WELL THROUGHOUT THE SHIFT. PATIENT IS ON A REG DIET AND IS TOLERATING IT WELL, NO NAUSEA NOTED. PATIENT DENIED ANY PAIN. PATIENT IS INDEPENDENT IN THE ROOM. PATIENT HAS SCDS. PATIENT RECEIVED A NEW IV. PAEINT HAS X4 LAP SITES AND X2 UPPER RIGHT CHEST SURGICAL INCISIONS. ALL SURGICAL SITES ARE OPEN TO AIR AND WELL APPROXIMATED. PATIENT HAS HAD A FEW LOOSE BMS. PATIENT HAS DENIES ANY PAIN. PATIENT IS AAOX3 AND USES CALL LIGHT APPROPRIATELY.
--- NOTE | 2017-07-18 06:10 | NUR ---
PATIENT IS RESTING IN BED. PATIENT DENIES ANY PAIN AT THIS TIME. PATIENT DENIES ANY NEEDS CALL LIGHT IN REACH.
--- NOTE | 2017-07-18 07:34 | NUR ---
REPORT RECIEVED FROM SARI ZELAYA. PT AWAKE AND READY TO GO. BEING DISCHARGED TODAY. DAUGHTER HOPING TO COME GET AT 0930 BUT DOES HAVE BACKUP PLAN WITH COUSIN. SL. INDEPENDENT IN ROOM.
--- NOTE | 2017-07-18 07:38 | NUR ---
REPORT RECEIVED FROM SARI ZELAYA. PT IS AWAKE AND ALERT IN BED. DENIES ANY NEEDS AT THIS TIME. PLAN TO DC THIS AM.
--- NOTE | 2017-07-18 08:29 | NUR ---
PT SITTING UP IN BED EATING BREAKFAST. AM MEDS ADMINISTERED. PT REFUSED STOOL SOFTENERS. RT IN TO DISCUSS HOME O2 USE WITH PT. WILL WORK WITH RT LATER TO SEE IF PT QUALIFYS. DENIES OTHER NEEDS AT THIS TIME.
--- NOTE | 2017-07-18 09:45 | NUR ---
IV REMOVED WNL. PT TOLERATED WELL. DISCHARGE TEACHING PROVIDED ON DIET AND ACTIVITY. PT GETTING DRESSED INDEPENDENTLY. WAITING FOR RIDE HOME. DENIES OTHER NEEDS AT THIS TIME.
--- NOTE | 2017-07-18 10:09 | NUR ---
PT GIVEN DISCHARGE EDUCATION. ALL QUESTIONS ANSWERED. IV REMOVED WNL. PT DENIED ASSISTANCE WITH GETTING DRESSED. AWAITING RIDE FOR HOME.
--- NOTE | 2017-07-18 10:15 | NUR ---
PT STANDING ATSINK BRUSHING TEETH. STAND BY ASSIST TO BED TO HELP PT DRESS. VITALS AND I/O'S DONE. PT DISCHARGING THIS AM, TRYING TO REACH A RIDE. SITTING ON EDGE OF BEDUSING PHONE. CALL LIGHT IN REACH.
--- NOTE | 2017-07-27 08:29 | CONS ---
[facility] [address] [place], [place] [address] Signed DATE OF CONSULTATION: 07/16/2017 CHIEF COMPLAINT: Constipation, nausea, and generalized weakness. HISTORY OF PRESENT ILLNESS: Carlos is an 82-year-old gentleman I have known for many years. He came in the emergency room with right upper quadrant abdominal pain and sepsis. He had to be intubated and flown down to [facility]. He had choledocholithiasis with cholangitis. He required an emergent ERCP with sweeping of the duct and into biliary stent placement. He improved after about a week. He wanted to come home to [place] to have a surgery here in [facility]. We did that just a few days ago. We kept him overnight and he was doing very well over the next day, so we allowed him to go home. Following night, he felt weak and short of breath and constipated and nauseated, so we called the ambulance and had him bring him into the emergency room. In the emergency room, he was evaluated and found to be generally satisfactory, but a little deconditioned to be going home by himself at age 82. Consequently, I was asked to admit him as a general surgeon on-call. Carlos has done well overnight, but generally is fairly exhausted. ALLERGIES: Advair Diskus, diclofenac, Dyazide, eucalyptus, and lisinopril. MEDICATIONS: 1. Claritin. 2. Diltiazem. 3. Furosamide. 4. Lisinopril. 5. Omeprazole. 6. Pravastatin. 7. Trazodone. PAST MEDICAL HISTORY: Includes: 1. Back pain. 2. Various skin lesions. 3. 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 4. Atrial fibrillation in May of 2017. 5. Right bundle branch block. 6. Hypertension. 7. Raynaud syndrome. 8. Bronchitis. 9. Chronic obstructive pulmonary disease. Electronically Signed By: EZ MARR MD 07/27/17 0829 PATIENT NAME: CARLOS HURST CONSULTATION DATE OF : 35 REPORT #: [id number] PHYSICIAN: EZ MARR MD PCP: NO PRIMARY CARE PHYSICIAN REPORT IS CONFIDENTIAL AND NOT TO BE RELEASED WITHOUT AUTHORIZATION [facility] [address] [place], [place] [address] Signed 10. Esophageal reflux. 11. Colonic diverticulosis. 12. Hyperlipidemia. 13. Osteoarthritis. 14. Left hip fracture in 2002. 15. Panic disorder. 16. Squamous cell carcinoma of his skin. 17. Crush injury of the lower extremities in 1965. 18. History of a bleeding esophageal ulcer. PAST SURGICAL HISTORY: Includes: 1. Multiple upper and lower endoscopies. 2. Removal of skin lesions. 3. Pinning of his left hip fracture in 2002. 4. Five surgeries on his eye. 5. Inguinal hernia repair in 2006. 6. Vasectomy. 7. Lower back surgery. 8. Repeat left hip surgery. 9. Right patella removed in 1967. 10. Multiple surgeries on the left leg and his foot in the with metal remaining. 11. Lumbar fusion. 12. Repair of his right knee in 1967. 13. Laminectomy. SOCIAL HISTORY: He likes 2 or 3 cups of coffee in a day. He used to smoke. He quit in 1989. He smoked up to 3 packs of cigarettes a day before he quit. He does not chew tobacco. He likes 2 or 3 beers in a week. He does not use drugs. 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 He has been 3 times and his most recent from pancreatic cancer. He has 9 children in total. PRIMARY CARE PHYSICIAN: Daryl Maldonado and she is a physician psychological assistant. FAMILY HISTORY: No reaction to anesthetics. His mother of cancer at age 85. Brother had heart disease. There has been no family history of colon cancer or polyps. Dad had abdominal aortic aneurysm at age 54. His 3 brothers all had atherosclerosis and a sister had atherosclerosis. REVIEW OF SYSTEMS: Carlos had 10 systems reviewed. I just discharged him from the hospital. The pertinent Electronically Signed By: EZ MARR MD 07/27/17 0829 PATIENT NAME: CARLOS HURST CONSULTATION DATE OF : 35 REPORT #: [id number] PHYSICIAN: EZ MARR MD PCP: NO PRIMARY CARE PHYSICIAN REPORT IS CONFIDENTIAL AND NOT TO BE RELEASED WITHOUT AUTHORIZATION [facility] [address] [place], [place] [address] Signed positives are in the history of present illness. PHYSICAL EXAMINATION: VITAL SIGNS: He is afebrile. Vital signs are stable currently. LABORATORY DATA: His white blood cell count is 9.3, neutrophils are 76. His BUN and creatinine are 9 and 0.72. His BNP is 252. His troponin was less than 0.010. His lipase was 8, albumin is 3.9, total bilirubin is 1.4, AST 12, ALT 13, and alkaline phosphatase is 69. RADIOGRAPHIC STUDIES: Chest x-ray shows some COPD, but no congestion. ASSESSMENT AND PLAN: Carlos is an 82-year-old gentleman, who presents total exhausted after last couple of weeks having 2 significant procedures. He is also constipated and nauseated. We are going to hydrate him, start him on some laxatives and see if we can get this turned around. We will allow him some diet as well. I have reviewed this for Carlos. He has expressed understanding and agrees with above plan. In the meantime, we will have our medical service see him as well. Ez Marr MD ALB/MODL /[id number] cc: MD Daryl Fernando PA Copies: EZ MARR MD ~ Electronically Signed By: EZ MARR MD 07/27/17 0829 PATIENT NAME: CARLOS HURST CONSULTATION DATE OF : 35 REPORT #: [id number] PHYSICIAN: EZ MARR MD PCP: NO PRIMARY CARE PHYSICIAN REPORT IS CONFIDENTIAL AND NOT TO BE RELEASED WITHOUT AUTHORIZATION
--- NOTE | 2017-07-27 08:29 | DS ---
[facility] [address] [place], [place] [address] Signed ADMISSION DATE: 07/16/2017 DISCHARGE DATE: 07/18/2017 FINAL DIAGNOSES: 1. Constipation. 2. Confusion. 3. Generalized weakness. 4. Insomnia. PROCEDURES: Chest x-ray. HISTORY OF PRESENT ILLNESS: Carlos is an 82-year-old gentleman, who couple of weeks ago had [facility] helicopter for cholangitis associated with choledocholithiasis. He underwent an ERCP with endoscopic sphincterotomy and placement of an endo biliary stent after sweeping out the duct. He recovered after about a week and came back to [place], [place]. About a week later, we did his uncomplicated laparoscopic cholecystectomy. His inner biliary stent remains in place. We kept Carlos overnight and he was doing well. We let him go home. By the next night, he had to call the ambulance to bring him back. He was getting confused. He was constipated. He could not sleep for 2 consecutive nights and he was getting weak and unsafe to be at home by himself. HOSPITAL COURSE: Carlos came through our emergency room as above and his laboratory work and chest x-ray were fine. We went ahead and got him admitted, rehydrated, and put him through MiraLAX and Gatorade bowel prep, which worked out very nicely yesterday. He could see he has about half of the abdominal distention as before. We can see that he looks and feels much better. His energy is much better. He has been eating well. We have him back on all his chronic medications. At this point, he is feeling much better. He is able to do his activities of daily living. We are going to be discharging him back to home. DISCHARGE PLANS AND MEDICATIONS: Carlos will be discharged back to home with no new prescriptions. He can follow his regular diet and medications at home. He knows not to lift over about 25 pounds for the next month. He is welcome to do his activities of daily living. We will have him back in our office in about a week or so for followup. Currently, his abdomen is benign and all the incisions are healing well. He has expressed understanding and agrees to above plan. Electronically Signed By: EZ FLOWERS MD 07/27/17 0829 PATIENT NAME: CARLOS HURST DISCHARGE SUMMARY DATE OF : 35 REPORT #: [id number] PHYSICIAN: EZ FLOWERS MD PCP: NO PRIMARY CARE PHYSICIAN REPORT IS CONFIDENTIAL AND NOT TO BE RELEASED WITHOUT AUTHORIZATION [facility] [address] [place] [id number] Signed Ez Flowers MD ALB/GONZALESL /[id number] cc: MD Dr. Daryl Fernando Copies: EZ FLOWERS MD ~ Electronically Signed By: EZ FLOWERS MD 07/27/17 0829 PATIENT NAME: CARLOS HURST DISCHARGE SUMMARY DATE OF : 35 REPORT #: [id number] PHYSICIAN: EZ FLOWERS MD PCP: NO PRIMARY CARE PHYSICIAN REPORT IS CONFIDENTIAL AND NOT TO BE RELEASED WITHOUT AUTHORIZATION
== END 2017-07-18 10:25 | disposition home or self-care (01) | DRG 392 ==
LOC: ED 01:36 → MS 01:37
PROVIDERS: ADMIT Colon & Rectal Surgery
DX: K59.00 Constipation, unspecified (principal); R41.82 Altered mental status, unspecified; R53.1 Weakness; G47.00 Insomnia, unspecified; F51.9 Sleep disorder not due to a substance or known physiological condition, unspecified; J44.9 Chronic obstructive pulmonary disease, unspecified; I11.0 Hypertensive heart disease with heart failure; I50.9 Heart failure, unspecified; G89.18 Other acute postprocedural pain; R09.02 Hypoxemia
CPT/HCPCS: 36415; 71046; 71260; 80048; 80053; 83690; 83735; 83880; 84100; 84134; 84484; 85025; 85379; 88304; 93005; 93010; 94640; 94760; 97110; 97116; G8978; G8979; G8980; J1170; J1644; J2405; J7120; Q9967

== ENCOUNTER 2018-02-17 14:59 | Emergency (ER) | payer MEDICARE ==
[~2018-02-17] VITALS: Ht 175.3 cm; Wt 81.7 kg
--- OUTSIDE RECORDS SUMMARY | ~2018-02-17 | XMS | Clinical Summary ---
Demographics + + + | Address | [address] | | | [place] [address] | + + + | Home Phone | | + + + | Preferred Language | Unknown | + + + | Marital Status | | + + + | Confucianist Affiliation | Unknown | + + + | Race | Unknown | + + + | Ethnic Group | Unknown | + + + Author + + + | Author | [facility] | + + + | Organization | [facility] | + + + | Address | Unknown | + + + | Phone | Unavailable | + + + Support + + + + + | Name | Relationship | Address | Phone | + + + + + | Camryn Burns | ECON | [address] | | | | | [place] | | | | | [address] | | + + + + + Care Team Providers + +------+ + | Care Vice President Of Communications Name | Role | Phone | + +------+ + | Daryl March MD | PP | | + +------+ + Allergies + + + + + + | Active Allergy | Reactions | Severity | Noted | Comments | | | | | Date | | + + + + + + | Fluticasone-Salmeter | Shortness of Breath | High | 08/11/19 | "I can't breathe | | ol | | | 14 | when I use it." | + + + + + + | Aromatic Inhalants | Shortness of Breath | High | /23/20 | | | | | | 14 | | + + + + + + | Hydrochlorothiazide | Hives | High | 08/10/20 | | | | | | 14 | | + + + + + + | Budesonide-Formotero | Shortness of Breath | High | 08/11/19 | "I can't breathe | | l Fumarate | | | 14 | when I use it." | + + + + + + Current Medications + + +-------+---------+------+------+-------+ | Prescription | Sig. | Disp. | Refills | Star | End | Statu | | | | | | t | Date | s | | | | | | Date | | | + + +-------+---------+------+------+-------+ | lisinopril | Take 20 mg by mouth | | | | | Activ | | (PRINIVIL,ZESTRIL) | daily. | | | | | e | | 20 MG tablet | | | | | | | + + +-------+---------+------+------+-------+ | amLODIPine | Take 5 mg by mouth | | | | | Activ | | (NORVASC) 5 MG | daily. | | | | | e | | tablet | | | | | | | + + +-------+---------+------+------+-------+ | Loratadine | Take by mouth. | | | | | Activ | | (CLARITIN) 10 MG | | | | | | e | | CAPS | | | | | | | + + +-------+---------+------+------+-------+ Active Problems + + + | Problem | Noted Date | + + + | GI bleed | 08/10/2013 | + + + | Hematemesis | 08/10/2013 | + + + | HTN (hypertension) | 08/10/2013 | + + + | COPD (chronic obstructive pulmonary disease) | 08/10/2013 | + + + Social History + +-------+ +--------+------+ | Tobacco Use | Types | Packs/Day | Years | Date | | | | | Used | | + +-------+ +--------+------+ | Former Smoker | | | | | + +-------+ +--------+------+ + +---+---+---+ | Smokeless Tobacco: | | | | | Never Used | | | | + +---+---+---+ + + +---------+ + | Alcohol Use | Drinks/We | oz/Week | Comments | | | ek | | | + + +---------+ + | Yes | 2 Cans | 1.2 | | | | of beer | | | + + +---------+ + + + + | Sex Assigned at | Date Recorded | | | | + + + | Not on file | | + + + Last Filed Vital Signs + + + + | Vital Sign | Reading | Time Taken | + + + + | Blood Pressure | 141/72 | 08/13/2013 7:26 AM PDT | + + + + | Pulse | 58 | 08/13/2013 7:26 AM PDT | + + + + | Temperature | 36.9 C (98.5 F) | 08/13/2013 7:26 AM PDT | + + + + | Respiratory Rate | 18 | 08/13/2013 7:26 AM PDT | + + + + | Oxygen Saturation | 92% | 08/13/2013 7:26 AM PDT | + + + + | Inhaled Oxygen | - | - | | Concentration | | | + + + + | Weight | 90.3 kg (199 lb) | 08/13/2013 3:18 AM PDT | + + + + | Height | 180.3 cm (5' 11") | 08/10/2013 9:06 PM PDT | + + + + | Body Mass Index | 27.75 | 08/13/2013 3:18 AM PDT | + + + + Plan of Treatment Not on file Results Not on filefrom Last 3 Months Insurance + +--------+ +--------+-------+---------+ | Payer | Benefi | Subscriber | Type | Phone | Address | | | t Plan | ID | | | | | | / | | | | | | | Group | | | | | + +--------+ +--------+-------+---------+ | [place] - PREMIERCARE | [place]-PRE | [id number] | Medica | | | | FAMILY | [place] | | re | | | | | RE | | | | | | | FAMILY | | | | | + +--------+ +--------+-------+---------+ + +--------+ +--------+ + + | Guarantor Name | Accoun | Relation to | Date | Phone | Billing Address | | | t Type | Patient | of | | | | | | | | | | + +--------+ +--------+ + + | ROSS,LILIAN O | Person | Self | [birth year] | Home: | [address] | | | al/Fam | | 1935 | [phone] | [place] | | | [place]le | | | [phone] | [phone] | + +--------+ +--------+ + +
--- OUTSIDE RECORDS SUMMARY | ~2018-02-17 | XMS | Clinical Summary ---
Demographics + + + | Address | [address] | | | [place] [address] | + + + | Home Phone | | + + + | Preferred Language | Unknown | + + + | Marital Status | Single | + + + | Episcopalian Affiliation | NON | + + + | Race | White | + + + | Ethnic Group | Not or | + + + Author + + + | Author | [facility] | + + + | Organization | [facility] | + + + | Address | Unknown | + + + | Phone | Unavailable | + + + Support + + +---------+ + | Name | Relationship | Address | Phone | + + +---------+ + | RITESH SPRINGER | ECON | Unknown | | + + +---------+ + Care Team Providers + +------+ + | Care Career Development Engineer Name | Role | Phone | + +------+ + | Herlinda Maldonado | PP | | + +------+ + Source Comments BETTINA is fully live on both [facility] Ambulatory and [facility] InPatient.[facility] Allergies + + + + + [...] 10 mg by mouth | | | 12/ | | Activ | | oral tablet | once daily at | | | 12/07 | | e | | | bedtime. [...] tablets by | 30 | 1 | 02 | | Activ | | mg oral tablet | mouth every six | tablet | | 0/20 | | e | | | hours while awake. | | | 18 | | | + + +--------+---------+------+------+-------+ Active [...] | 8 | + + + + Social History [...] + + + + + | Pneumococcal (Adult) | | | | | (1 of 2 - PCV13) | 0 | | | + + + + + | INFLUENZA VACCINE | | | | | (FLU SHOT) | 8 | | | + + + + + Results Not on filefrom Last 3 Months Insurance + +--------+ +--------+ + + | Payer | Benefi | Subscriber | Type | Phone | Address | | | t Plan | ID | | | | | | / | | | | | | | Group | | | | | + +--------+ +--------+ + + | MOD[employer]ARE | MODA | xxxxxxxxx | Medica | [phone] [address] | | | MEDICA | | re | [phone] | [place] [address] | | | RE HMO | | | | | + +--------+ +--------+ + + + +--------+ +--------+ + + | Guarantor Name | Accoun | Relation to | Date | Phone | Billing Address | | | t Type | Patient | of | | | | | | | | | | + +--------+ +--------+ + + | LILIAN HURST | Person | Self | [birth year] | Home: | [address] | | | al/Fam | | 1935 | [phone] | [place] [address] | | | [place]le | | | [phone] | | + +--------+ +--------+ + +
--- OUTSIDE RECORDS SUMMARY | ~2018-02-17 | XMS | Clinical Summary ---
Demographics + + + | Address | [address] | | | [place] [address] | + + + | Home Phone [...] + | Author | [facility] | | | [facility] | + + + | Organization | [facility] | | | and [facility] | + + + | Address | Unknown | + + + | Phone | Unavailable | + + + Support + + +---------+ + | Name | Relationship | Address | Phone | + + +---------+ + | Sharon Iyer | ECON | Unknown | | + + +---------+ + Care Team Providers + +------+ + | Care Four Slide Operator Name | Role | Phone | + +------+ + | Herlinda Maldonado | PP | | | PA | | | [...] | | | + + +-------+---------+------+------+-------+ | loratadine | Claritin 10MG Oral | | | 07/19 | | Activ | | (CLARITIN) 10 [...] | | | + + +-------+---------+------+------+-------+ | dilTIAZem | DilTIAZem CD 240MG | | | 01/0 | | Activ [...] | | | + + +-------+---------+------+------+-------+ | furosemide (LASIX) | Furosemide 20MG Oral | | | 01/0 | | Activ | | 20 mg tablet | Tablet QTY: 90 | | | 3/20 | | e | | | Days: 0 Refills: 3 | | | 18 | | | | | Written: 05/23/17 | | | | | | | | Patient | | | | | | | | Instructions: 1 once | | | | | | | | a day | | | | | | + + +-------+---------+------+------+-------+ | lisinopril | Lisinopril 20MG Oral | | | 01/0 | | Activ | | (PRINIVIL, ZESTRIL) | Tablet QTY: 90 | | | 3/20 | | e | | 20 mg tablet | Days: 0 Refills: 3 | | | 18 | | | | | Written: 05/23/17 | | | | | | | | Patient | | | | | | | | Instructions: 1 once | | | | | | | | a day | | | | | | + + +-------+---------+------+------+-------+ | omeprazole | Omeprazole 40MG Oral | | | 01/0 | | Activ | | (PRILOSEC) 40 MG | Capsule Delayed | | | 08/07 | | e | | capsule | Release QTY: 90 | | | 18 | | | | | Days: 0 Refills: 3 | | | | | | | | Written: 05/23/17 | | | | | | | | Patient | | | | | | | | Instructions: 1 once | | | | | | | | a day | | | | | | + + +-------+---------+------+------+-------+ | pravastatin | Pravastatin Sodium | | | 01/0 | | Activ | | (PRAVACHOL) 10 mg | 10MG Oral Tablet | | | 20 | | e | | tablet | [...] | | | + + +-------+---------+------+------+-------+ | | 3 mLs Every 8 hours. | | | 06/21 | | Activ | | albuterol-ipratropiu | | | | 09/07 | | e | | m (DUONEB) 2.5-0.5 | | | | 18 | | | | mg/3 mL SOLN | | | | | | | + + +-------+---------+------+------+-------+ | potassium chloride | Take 10 mEq by mouth | | | 0 | | Activ | | (KLOR-CON) 10 MEQ | Daily. | | | 11/07 | | e | | ER tablet | | | | 18 | | | + + +-------+---------+------+------+-------+ Active Problems + + + | Problem | Noted Date | + + + | Encounter for removal of biliary stent | 08/13/2017 | + + + + + | Overview: 07/13/2017: [place] | | Endobiliary stent placed at [facility] | + + + + + | Abnormal MOG: Louis STONE | 08/13/2017 | + + + | GERD (gastroesophageal reflux disease) | 08/13/2017 | + + + | Atrial fibrillation (HCC) | 08/13/2017 | + + + | MIRIAM Inhibotors - [...] COPD (chronic obstructive pulmonary disease) (HCC) | 05/23/2017 | + + + | [...] | Overview: Note: Worsening | + + Family History + + +------+ [...] | + + +------+ + | Abdominal Aortic | Father | | | | Aneurysm | | | | + + +------+ [...] + + +---------+ + | Yes | 2-3 | 1.2 - | | | | Cans of | 1.8 | | | | beer | | | + + +---------+ + + + + | Sex Assigned at | Date Recorded | | | | + + + | Not on file | | + + + Last Filed Vital Signs + + + + | Vital Sign | Reading | Time Taken | + + + + | Blood Pressure | 167/77 | 08/14/20171424 PDT | + + + + | Pulse | 59 | 08/14/20171424 PDT | + + + + | Temperature | 36.4 C (97.5 F) | 08/14/20171411 PDT | + + + + | Respiratory Rate | 13 | 08/14/20171424 PDT | + + + + | Oxygen Saturation | 98% | 08/14/20171424 PDT | + + + + | Inhaled Oxygen | - | - | | Concentration | | | + + + + | Weight | 79.7 kg (175 lb 11.3 | 08/14/20171135 PDT | | | oz) | | + + + + | Height | 177.8 cm (5' 10") | 08/14/20171135 PDT | + + + + | Body Mass Index | 25.21 | 08/14/20171135 PDT | + + + + Plan of Treatment + + + + + | Health Maintenance | Due Date | Last Done | Comments | + + + + + | Vaccine: | | | | | Dtap/Tdap/Td (1 - | 4 | | | | Tdap) | | | | + + + + + | Vaccine: Zoster (1 | | | | | of 2) | 5 | | | + + + + + | Vaccine: | | | | | Pneumococcal 65+ | 0 | | | | Low/Medium Risk (1 | | | | | of 2 - PCV13) | | | | + + + + + | Vaccine: Influenza | | | | | (#1) | 8 | | | + + [...] | | | + +--------+ +--------+-------+---------+ | [employer] | MODA | [id number] | Medica | | | | | HEALTH | | re | | | | | MDCR | | | | | + +--------+ [...] | Self | [birth year] | Home: | [address] | | | al/Fam | | 1935 | [phone] | [place] [address] | | | [place]le | | | [phone] | | + +--------+ +--------+ + +
--- OUTSIDE RECORDS SUMMARY | ~2018-02-17 | XMS | Clinical Summary ---
Demographics + + + | Address | [address] | | | [place] [address] | + + + | Home Phone [...] + + | Author | [facility] | + + + | Organization | [facility] | + + + | Address | Unknown | + + + | Phone | Unavailable | + + + Support + + +---------+ + | Name | Relationship | Address | Phone | + + +---------+ + | RITESH SPRINGER | ECON | Unknown | | + + +---------+ + Care Team Providers + +------+ + | Care Travel Counselor Name | Role | Phone | + +------+ + | Herlinda Maldonado | PP | | + +------+ + Source Comments BETTINA is fully live on both [facility] Ambulatory and [facility] InPatient.[facility] Allergies + + + + [...] MEDICA | | re | [address] | [place] [address] | | | RE HMO | | [...] | Self | [birth year] | Home: | [address] | | | al/Fam | | 1935 | [phone] | [place] [address] | | | [place]le | | | [phone] | | + +--------+ +--------+ + +
--- OUTSIDE RECORDS SUMMARY | ~2018-02-17 | XMS | Clinical Summary ---
Demographics + + + | Address | [address] | | | [place] [address] | + + + | Home Phone | | + + + | Preferred Language | Unknown | + + + | Marital Status | | + + + | Restorationist Affiliation | Unknown | + + + | Race | Unknown | + + + | Ethnic Group | Unknown | + + + Author + + + | Author | [facility] | | | and [place] | + + + | Organization | [facility] | | | and [facility] | [...] Providers + +------+ + | Care Career Discovery Teacher Name | Role | Phone | [...] Lindsay | | Endobiliary stent placed at [facility] | + + + + + | [...] | [employer] | MODA | [id number] | Medica | | | | | [...] | Self | [birth year] | Home: | [address] | | | al/Fam | | 1935 | [phone] | [place] [address] | | | [place]le | | | [phone] | | + +--------+ +--------+ + +
--- OUTSIDE RECORDS SUMMARY | ~2018-02-17 | XMS | Clinical Summary ---
Demographics + + + | Address | [address] | | | [place] [address] | + + + | Home Phone | | + + + | Preferred Language | Unknown | + + + | Marital Status | | + + + | Synagogue Affiliation | Unknown | + + + | Race | Unknown | + + + | Ethnic Group | Unknown | + + + Author + + + | Author | [facility] | + + + | Organization | [facility] | + + + | Address | Unknown | + + + | Phone | Unavailable | + + + Support + + + + + | Name | Relationship | Address | Phone | + + + + + | Camryn Burns | ECON | [address] | | | | | [place] | | | | | [address] | | + + + + + Care Team Providers + +------+ + | Care Weblogic Developer Name | Role | Phone | [...] | MA - PRE[employer] | MA-PRE | [id number] | Medica | | | | FAMILY [...] | Self | [birth year] | Home: | [address] | | | al/Fam | | 1935 | [phone] | [place] | | | [place] | | | [phone] | [phone] | + +--------+ +--------+ + +
== END 2018-02-17 16:00 | disposition home or self-care (01) ==
LOC: ED 14:59
DX: R07.81 Pleurodynia (principal); M25.522 Pain in left elbow; W18.30XA Fall on same level, unspecified, initial encounter; J44.9 Chronic obstructive pulmonary disease, unspecified; I11.0 Hypertensive heart disease with heart failure; I50.9 Heart failure, unspecified; I25.2 Old myocardial infarction; Z88.8 Allergy status to other drugs, medicaments and biological substances; Z79.899 Other long term (current) 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

== ENCOUNTER 2018-05-30 14:26 | Emergency (ER) | payer MEDICARE ==
[~2018-05-30] VITALS: Ht 175.3 cm; Wt 81.7 kg
[~2018-05-30 14:26] MED LIST changes: +CEPHALEXIN500 MG PO
--- OUTSIDE RECORDS SUMMARY | 2018-05-30 14:30 | XMS ---
PreManage Notification: EDSON HURST Security Spa Concierge Events 1 event(s) in the past 18 months Most recent security events: Elopement at [facility] 02/17/2018 14:59 - Patient eloped before treatment completed. Details: LW CRITERIA MET - Group Notification CARE PROVIDERS Daryl March MD Primary Care Current PHONE: [phone] orchanel Case or Band Saw Operator Current PHONE: Unknown DARYL Martin 12/10/2012-Current PHONE: Unknown Jose F has no Care Guidelines for this patient. E.D. VISIT COUNT (12 MO.) 1 [facility] 5 [facility] TOTAL 6 NOTE: Visits indicate total known visits. ED/UCC VISIT TRACKING (12 MO.) 05/30/2018 14:27 [facility] [place] TYPE: Emergency COMPLAINT: - FALL 02/24/2018 00:28 [facility] [place] TYPE: Emergency COMPLAINT: - BLOOD IN URINE DIAGNOSES: - Heart failure, unspecified - Old myocardial infarction - Allergy status to other drugs, medicaments and biological substances status - Chronic obstructive pulmonary disease, unspecified - Other [place] [facility] ([facility] 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 - Hypertensive heart disease with heart failure - Hematuria, unspecified [facility] DIAGNOSES: - arm lac - Laceration without foreign body of left elbow, initial encounter - Arm Laceration - Contusion of left front wall of thorax, initial encounter - Fall on same level from slipping, tripping and stumbling without subsequent striking against object, initial encounter 02/17/2018 14:[address] [facility] TYPE: Emergency COMPLAINT: - FALL/LEFT ARM LAC DIAGNOSES: - Chronic obstructive pulmonary disease, unspecified - Allergy status to other drugs, medicaments and biological substances status - Other business director (current) 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 - Hypertensive heart disease with heart failure - Pleurodynia - Fall on same level, unspecified, initial encounter - Heart failure, unspecified - Old myocardial infarction - Pain in left elbow 07/16/2017 01:[address] [facility] [place] [facility]: Emergency COMPLAINT: - SOB 06/26/2017 00:45 [facility] [place] [facility] [place] [facility]: [facility] COMPLAINT: - CHEST PAIN DIAGNOSES: - Allergy status to other drugs, medicaments and biological substances status - Cholangitis - Heart failure, unspecified - Chronic obstructive pulmonary disease, unspecified - Acute respiratory failure, unspecified whether with hypoxia or hypercapnia - Personal history of nicotine dependence - Hypertensive heart disease with heart failure - Other [place] [facility] (current) 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 - Chest pain, unspecified INPATIENT VISIT TRACKING (12 MO.) 07/16/2017 07:[address] 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 Other malaise 68459. Dyspnea, unspecified 38261. Calculus of bile duct without cholangitis or cholecystitis without obstruction [email or web address]
--- NOTE | 2018-05-31 14:35 | EKG ---
[facility] [address] [facility] [place] [address] Signed Wide QRS rhythm Right bundle branch block Abnormal ECG When compared with ECG of 16-JUL-2017 01:39, Wide QRS rhythm has replaced Atrial fibrillation Confirmed by DONY SOUTH MD ([id number]) on 05/31/2018 2:34:54 PM Electronically Signed By: DONY SOUTH MD 05/31/18 1435 PATIENT NAME: EDSON HURST Electrocardiogram DATE OF : 35 PHYSICIAN: DONY SOUTH MD REPORT #: [id number] REPORT IS CONFIDENTIAL AND NOT TO BE RELEASED WITHOUT AUTHORIZATION
== END 2018-05-31 08:08 | disposition short-term general hospital (02) ==
LOC: ED 14:26
DX: S32.402A Unspecified fracture of left acetabulum, initial encounter for closed fracture (principal); S32.602A Unspecified fracture of left ischium, initial encounter for closed fracture; S32.502A Unspecified fracture of left pubis, initial encounter for closed fracture; J44.9 Chronic obstructive pulmonary disease, unspecified; I11.0 Hypertensive heart disease with heart failure; I50.9 Heart failure, unspecified; I25.2 Old myocardial infarction; Z88.8 Allergy status to other drugs, medicaments and biological substances; Z79.899 Other long term (current) 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; W18.30XA Fall on same level, unspecified, initial encounter
CPT/HCPCS: 72192; 73502; 80053; 85025; 85610; 93005; 93010; 96361; 96374; 96375; 96376; 99285-25; J1170; J2405; J3360; J7030

== ENCOUNTER 2018-06-24 11:48 | Emergency (ER) | payer MEDICARE ==
[~2018-06-24] VITALS: Ht 175.3 cm; Wt 81.7 kg
--- OUTSIDE RECORDS SUMMARY | 2018-06-24 11:50 | XMS ---
PreManage Notification: EDSON HURST Security Puff Iron Operator Events 1 event(s) in the past 18 months Most recent security events: Elopement at [facility] 02/17/2018 14:59 - Patient eloped before treatment completed. Details: LWBS CRITERIA MET - Group Notification - [facility] - 2 Visits in 30 Days CARE PROVIDERS ROSA ENNIS 05/31/2018-Current PHONE: Unknown Lana March MD Primary Care Current PHONE: [phone] orchanel Case or Senior Construction Manager Current PHONE: Unknown LANA Martin 12/10/2012-Current PHONE: Unknown Jose F has no Care Guidelines for this patient. EGeremias VISIT COUNT (12 MO.) 1 [facility] 6 [facility] TOTAL 7 NOTE: Visits indicate total known visits. ED/UCC VISIT TRACKING (12 MO.) 06/24/2018 11:48 [facility] [place] TYPE: Emergency COMPLAINT: - ABD PAIN 05/30/2018 14:27 [facility] TYPE: Emergency COMPLAINT: - FALL DIAGNOSES: - Unspecified fracture of left pubis, initial encounter for closed fracture - Fall on same level, unspecified, initial encounter - Hypertensive heart disease with heart failure - Pain in left hip - Unspecified fracture of left acetabulum, initial encounter for closed fracture - Heart failure, unspecified - Allergy status to other drugs, medicaments and biological substances status - Other buttermaker (current) 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 - Old myocardial infarction - Chronic obstructive pulmonary disease, unspecified - Unspecified fracture of left ischium, initial encounter for closed fracture 02/24/2018 00:28 [facility] TYPE: Emergency COMPLAINT: - BLOOD IN URINE DIAGNOSES: - Heart failure, unspecified - Old myocardial infarction - Allergy status to other drugs, medicaments and biological substances status - Chronic obstructive pulmonary disease, unspecified - Other halfway (current) 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 - Hypertensive heart disease with heart failure - Hematuria, unspecified [facility] DIAGNOSES: - arm lac - Laceration without foreign body of left elbow, initial encounter - Arm Laceration - Contusion of left front wall of thorax, initial encounter - Fall on same level from slipping, tripping and stumbling without subsequent striking against object, initial encounter 02/17/2018 14:59 [facility] TYPE: Emergency COMPLAINT: - FALL/LEFT ARM LAC DIAGNOSES: - Chronic obstructive pulmonary disease, unspecified - Allergy status to other drugs, medicaments and biological substances status - Other halfway (current) 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 - Hypertensive heart disease with heart failure - Pleurodynia - Fall on same level, unspecified, initial encounter - Heart failure, unspecified - Old myocardial infarction - Pain in left elbow 07/16/2017 01:36 [facility] TYPE: Emergency COMPLAINT: - SOB 06/26/2017 00:45 [facility] [place] TYPE: Emergency COMPLAINT: - CHEST PAIN DIAGNOSES: - Allergy status to other drugs, medicaments and biological substances status - Cholangitis - Heart failure, unspecified - Chronic obstructive pulmonary disease, unspecified - Acute respiratory failure, unspecified whether with hypoxia or hypercapnia - Personal history of nicotine dependence - Hypertensive heart disease with heart failure - Other buttermaker (current) 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 - Chest pain, unspecified INPATIENT VISIT TRACKING (12 MO.) 05/31/2018 11:48 [facility] TYPE: Orthopedic DIAGNOSES: [address]. [place] [address]. Hematemesis 12623. Ileus, unspecified 92053. Personal history of (healed) traumatic fracture 18086. Other postprocedural complications and disorders of digestive system 07/16/2017 07:25 [facility] [place] TYPE: Medical Surgical COMPLAINT: - POST [...] unspecified - Abdominal distension (gaseous) 06/26/2017 08:35 [facility] TYPE: Internal Medicine DIAGNOSES: 07896. Other malaise 54623. Dyspnea, unspecified 89366. Calculus of bile duct without cholangitis or cholecystitis without obstruction [email or web address]
[2018-06-24] MEDS ORDERED: MIRALAX17 GM PO (12:04)
[2018-06-24] MEDS ORDERED: OXYCODONE HCL5 MG PO (12:04)
== END 2018-06-24 18:32 | disposition home or self-care (01) ==
LOC: ED 11:48
DX: K59.00 Constipation, unspecified (principal); J44.9 Chronic obstructive pulmonary disease, unspecified; I11.0 Hypertensive heart disease with heart failure; I50.9 Heart failure, unspecified; I25.2 Old myocardial infarction; Z87.891 Personal history of nicotine dependence; Z95.5 Presence of coronary angioplasty implant and graft; Z88.8 Allergy status to other drugs, medicaments and biological substances; Z79.899 Other long term (current) 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
CPT/HCPCS: 74177; 80053; 81001; 85025; 99284-25; Q9967

== ENCOUNTER 2018-07-04 15:06 | Emergency (ER) | payer MEDICARE ==
[~2018-07-04] VITALS: Ht 175.3 cm; Wt 81.7 kg
[~2018-07-04 15:06] MED LIST changes: +MIRALAX17 GM PO; +OXYCODONE HCL5 MG PO
--- OUTSIDE RECORDS SUMMARY | 2018-07-04 15:08 | XMS ---
PreManage Notification: EDSON HURST Security Paraprofessional Education Assistant Events 1 event(s) in the past 18 months Most recent security events: Elopement at [facility] 02/17/2018 14:59 - Patient eloped before treatment completed. Details: LWBS CRITERIA MET - Group Notification - 6 ED Visits in 6 Months - [facility] - 2 Visits in 30 Days CARE PROVIDERS ROSA ENNIS Physician Blueprint Trimmer 05/31/2018-Current PHONE: Unknown Lana March MD Primary Care Current PHONE: [phone] orchanel Case or Syrup Mixer Current PHONE: Unknown LANA Martin 12/10/2012-Current PHONE: Unknown Jose F has no Care Guidelines for this patient. [place] VISIT COUNT (12 MO.) 1 Nevaeh Hamlin TOTAL 7 NOTE: Visits indicate total known visits. ED/UCC VISIT TRACKING (12 MO.) 07/04/2018 15:06 [facility] [place] TYPE: Emergency COMPLAINT: - ABD PAIN 06/24/2018 11:48 [facility] [place] TYPE: Emergency COMPLAINT: - ABD PAIN DIAGNOSES: - Other penitentiary (current) 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 - Presence of coronary angioplasty implant and graft - Old myocardial infarction - Heart failure, unspecified - Constipation, unspecified - Allergy status to other drugs, medicaments and biological substances status - Personal history of nicotine dependence - Hypertensive heart disease with heart failure - Chronic obstructive pulmonary disease, unspecified 05/30/2018 14:27 [facility] [place] TYPE: Emergency COMPLAINT: - FALL DIAGNOSES: - [...] medicaments and biological substances status - Other penitentiary (current) 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 - Old myocardial infarction - Chronic obstructive pulmonary disease, unspecified - Unspecified fracture of left ischium, initial encounter for closed fracture 02/24/2018 00:28 [facility] TYPE: Emergency COMPLAINT: - BLOOD IN URINE DIAGNOSES: - Heart failure, unspecified - Old myocardial infarction - Allergy status to other drugs, medicaments and biological substances status - Chronic obstructive pulmonary disease, unspecified - Other penitentiary (current) 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 - Hypertensive heart disease with heart failure - Hematuria, unspecified [facility] [place] [facility] DIAGNOSES: - arm lac - [...] medicaments and biological substances status - Other penitentiary (current) 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 - Hypertensive heart disease with heart failure - Pleurodynia - Fall on same level, unspecified, initial encounter - Heart failure, unspecified - Old myocardial infarction - Pain in left elbow 07/16/2017 01:36 [facility] [place] TYPE: Emergency COMPLAINT: - SOB INPATIENT VISIT TRACKING (12 MO.) 05/31/2018 11:48 [facility] TYPE: Orthopedic DIAGNOSES: [address]. [place] [address]. Hematemesis 19512. Ileus, unspecified 37620. Personal history of (healed) traumatic fracture 40316. Other postprocedural complications and disorders of digestive [...] mental status, unspecified - Abdominal distension (gaseous) [email or web address]
[2018-07-04] MEDS ORDERED: ENULOSE10 GM/15 M PO (17:00)
== END 2018-07-04 18:21 | disposition home or self-care (01) ==
LOC: ED 15:06
DX: R10.32 Left lower quadrant pain (principal); R10.12 Left upper quadrant pain; J44.9 Chronic obstructive pulmonary disease, unspecified; I11.0 Hypertensive heart disease with heart failure; I50.9 Heart failure, unspecified; I25.2 Old myocardial infarction; Z87.891 Personal history of nicotine dependence; Z95.5 Presence of coronary angioplasty implant and graft; Z88.8 Allergy status to other drugs, medicaments and biological substances; Z79.899 Other long term (current) 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
CPT/HCPCS: 74177; 80053; 81001; 83690; 85025; 96361; 99284-25; J2405; J3010; J7040; Q9967

== ENCOUNTER 2018-07-05 14:32 | Emergency (ER) | payer MEDICARE ==
[~2018-07-05] VITALS: Ht 175.3 cm; Wt 81.7 kg
[~2018-07-05 14:32] MED LIST changes: +ENULOSE10 GM/15 M PO
--- OUTSIDE RECORDS SUMMARY | 2018-07-05 14:34 | XMS ---
PreManage Notification: EDSON HURST Security Collections Representative Events 1 event(s) in the past 18 months Most recent security events: Elopement at [facility] 02/17/2018 14:59 - Patient eloped before treatment completed. Details: LWBS CRITERIA MET - Group Notification - 6 ED Visits in 6 Months - [facility] - 2 Visits in 30 Days CARE PROVIDERS ROSA ENNIS Physician Property Field Inspector 05/31/2018-Current PHONE: Unknown Lana March MD Primary Care Current PHONE: [phone] orchanel Case or E Learning Developer Current PHONE: Unknown LANA Martin 12/10/2012-Current PHONE: Unknown Jose F has no Care Guidelines for this patient. [place] VISIT COUNT (12 MO.) 1 Nevaeh Hamlin TOTAL 8 NOTE: Visits indicate total known visits. ED/UCC VISIT TRACKING (12 MO.) 07/05/2018 14:32 [facility] TYPE: Emergency COMPLAINT: - ABD PAIN 07/04/2018 15:06 [facility] TYPE: Emergency COMPLAINT: - ABD PAIN 06/24/2018 11:48 [facility] TYPE: Emergency COMPLAINT: - ABD PAIN DIAGNOSES: - Other custodial (current) 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 - Presence of coronary [...] medicaments and biological substances status - Other 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 project manager (current) 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 - Old myocardial infarction - Chronic obstructive pulmonary disease, unspecified - Unspecified fracture of left ischium, initial encounter for closed fracture 02/24/2018 00:28 [facility] [place] TYPE: Emergency COMPLAINT: - BLOOD IN URINE DIAGNOSES: - Heart failure, unspecified - Old myocardial infarction - Allergy status to other drugs, medicaments and biological substances status - Chronic obstructive pulmonary disease, unspecified - Other custodial (current) 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 - Hypertensive heart disease with heart failure - Hematuria, unspecified [facility]2018 [facility] [place] [facility] DIAGNOSES: - arm lac - Laceration without foreign body of left elbow, initial encounter - Arm Laceration - Contusion of left front wall of thorax, initial encounter - Fall on same level from slipping, tripping and stumbling without subsequent striking against object, initial encounter 02/17/2018 14:59 [facility] TYPE: Emergency COMPLAINT: - FALL/LEFT ARM LAC DIAGNOSES: - Chronic obstructive pulmonary disease, unspecified - Allergy status to other drugs, medicaments and biological substances status - Other 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 project manager (current) 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 - Hypertensive heart disease with heart failure - Pleurodynia - Fall on same level, unspecified, initial encounter - Heart failure, unspecified - Old myocardial infarction - Pain in left elbow 07/16/2017 01:36 [facility] TYPE: Emergency COMPLAINT: - SOB INPATIENT VISIT TRACKING (12 MO.) 05/31/2018 11:48 [facility] TYPE: Orthopedic DIAGNOSES: 08887. [place] [address]. Hematemesis 59405. Ileus, unspecified 15677. Personal history of (healed) traumatic fracture 57977. Other postprocedural complications and disorders of digestive system 07/16/2017 07:25 [facility] [place] TYPE: Medical Surgical COMPLAINT: - POST [...] mental status, unspecified - Abdominal distension (gaseous) [email or web address]
--- NOTE | 2018-07-07 16:49 | EKG ---
[facility] [address] [place], [place] [address] Signed Wide QRS rhythm Right bundle branch block Abnormal ECG When compared with ECG of 30-MAY-2018 16:58, No significant change was found Confirmed by ELADIO RUIZ DO ([id number]) on 07/07/2018 4:49:48 PM Electronically Signed By: ELADIO RUIZ DO 07/07/18 1649 PATIENT NAME: NATALIEDSON SOTO Electrocardiogram DATE OF : 35 PHYSICIAN: ELADIO RUIZ DO REPORT #: [id number] REPORT IS CONFIDENTIAL AND NOT TO BE RELEASED WITHOUT AUTHORIZATION
== END 2018-07-06 08:18 | disposition short-term general hospital (02) ==
LOC: ED 14:32
PROC: 0T9B70Z Drainage of Bladder with Drainage Device, Via Natural or Artificial Opening (ICD-10-PCS; principal; 2018-07-05)
DX: K83.09 Other cholangitis (principal); R79.89 Other specified abnormal findings of blood chemistry; J44.9 Chronic obstructive pulmonary disease, unspecified; I11.0 Hypertensive heart disease with heart failure; I50.9 Heart failure, unspecified; I25.2 Old myocardial infarction; Z87.891 Personal history of nicotine dependence; Z95.5 Presence of coronary angioplasty implant and graft; Z88.8 Allergy status to other drugs, medicaments and biological substances; Z79.899 Other long term (current) 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
CPT/HCPCS: 36415; 51702; 74177; 76705; 80053; 81001; 83605; 83690; 85025; 87040; 93005; 93010; 99285-25; C9113; J0692; J1170; J2060; J7030; J7040; J7060; Q9967

== ENCOUNTER 2019-01-16 20:37 | Observation (INO) | payer MEDICARE ==
[~2019-01-16] VITALS: Ht 175.3 cm; Wt 70.8 kg
[~2019-01-16 20:37] MED LIST changes: +DILTIAZEM 24HR300 M1 PO; -LISINOPRIL20 MG; +LISINOPRIL20 MG PO
--- OUTSIDE RECORDS SUMMARY | 2019-01-16 20:40 | XMS ---
PreManage Notification: EDSON HURST Security Digital Computer Systems Analyst Events 1 event(s) in the past 18 months Most recent security events: Elopement at [facility] 02/17/2018 14:59 - Patient eloped before treatment completed. Details: LW CRITERIA MET - Group Notification - [facility] - 2 Visits in 30 Days CARE PROVIDERS ROSA ENNIS 05/31/2018-Current PHONE: Unknown DOCTOR LYNN Primary Care Current PHONE: Unknown JOSEPH PRCIE Primary [facility] PHONE: Unknown Lana March MD Primary Care Current PHONE: [phone] or_ricardo Case or Architectural Technologist Current PHONE: Unknown LANA Martin 12/10/2012-Current PHONE: Unknown Jose F has no Care Guidelines for this patient. [place] VISIT COUNT (12 MO.) 1 [facility] 9 [facility] TOTAL 10 NOTE: Visits indicate total known visits. ED/UCC VISIT TRACKING (12 MO.) 01/16/2019 20:38 [facility] TYPE: Emergency COMPLAINT: - MULTIPLE COMPLAINTS 01/01/2019 11:02 [facility] TYPE: Emergency COMPLAINT: - FAST HEART RATE DIAGNOSES: - Allergy status to other drugs, medicaments and biological substances status - Essential (primary) hypertension - Other longterm (current) 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 - Unspecified atrial fibrillation - Chronic obstructive pulmonary disease, unspecified - Heart failure, unspecified 10/19/2018 21:55 [facility] TYPE: Emergency COMPLAINT: - RAPID HEART RATE DIAGNOSES: - Old myocardial infarction - Tachycardia, unspecified - Personal history of nicotine dependence - Chronic atrial fibrillation - Allergy status to other drugs, medicaments and biological substances status - Acquired absence of other specified parts of digestive tract - Other longterm (current) 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 - Heart failure, unspecified - Presence of coronary angioplasty implant and graft - Hypertensive heart disease with heart failure 07/05/2018 14:32 [facility] TYPE: Emergency COMPLAINT: - ABD PAIN DIAGNOSES: - Other longterm (current) 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 - Presence of coronary angioplasty implant and graft - Chronic obstructive pulmonary disease, unspecified - Personal history of nicotine dependence - OTHER CHOLANGITIS - Old myocardial infarction - Heart failure, unspecified - Other specified abnormal findings of blood chemistry - Hypertensive heart disease with heart failure - Allergy status to other drugs, medicaments and biological substances status - Unspecified abdominal pain 07/04/2018 15:06 [facility] [place] TYPE: Emergency COMPLAINT: - ABD PAIN DIAGNOSES: - Chronic obstructive pulmonary disease, unspecified - Allergy status to other drugs, medicaments and biological substances status - Heart failure, unspecified - Personal history of nicotine dependence - Presence of coronary angioplasty implant and graft - Hypertensive heart disease with heart failure - Other long chain dyeing machine operator (current) 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 - Left upper quadrant pain - Left lower quadrant pain - Old myocardial infarction 06/24/2018 11:48 [facility] [place] TYPE: Emergency COMPLAINT: - ABD PAIN DIAGNOSES: - Other longterm (current) 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 - Presence of coronary [...] medicaments and biological substances status - Other long chain dyeing machine operator (current) 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 - Old myocardial infarction [...] Chronic obstructive pulmonary disease, unspecified - Other long chain dyeing machine operator (current) 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 - Hypertensive heart disease with heart failure - Hematuria, unspecified [facility]17/2018 17[facility] DIAGNOSES: - arm lac - Laceration without foreign body of left elbow, initial encounter - Arm Laceration - Contusion of left front wall of thorax, initial encounter - Fall on same level from slipping, tripping and stumbling without subsequent striking against object, initial encounter 02/17/2018 14:[address] [facility] TYPE: Emergency COMPLAINT: - FALL/LEFT ARM LAC DIAGNOSES: - Chronic obstructive pulmonary disease, unspecified - Allergy status to other drugs, medicaments and biological substances status - Other long chain dyeing machine operator (current) 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 - Hypertensive heart disease with heart failure - Pleurodynia - Fall on same level, unspecified, initial encounter - Heart failure, unspecified - Old myocardial infarction - Pain in left elbow INPATIENT VISIT TRACKING (12 MO.) 07/06/2018 11:51 [facility] TYPE: Medical Surgical DIAGNOSES: - Cholangitis - Unspecified fracture of left acetabulum, subsequent encounter for fracture with routine healing - Unspecified fracture of left acetabulum, sequela 05/31/2018 11:48 [facility] TYPE: Orthopedic DIAGNOSES: 91640. [place] [address]. Hematemesis 37593. Ileus, unspecified 69672. Personal history of (healed) traumatic fracture 87751. Other postprocedural complications and disorders of digestive system [email or web address]
[2019-01-16] MEDS ORDERED: URSODIOL250 MG PO (22:04)
[2019-01-16] MEDS ORDERED: ELIQUIS5 MG PO (22:04)
--- NOTE | 2019-01-17 01:55 | NUR ---
PT ARRIVED VIA STRETCHER FROM ED. HE STOOD ON THE SCALE AND GOT INTO BED SBA. TELE WAS PLACED AND PT IS TUCKED INTO BED. ADMISSION STARTED. PT IS ALERT AND ORIENTED, RR IS EVEN AND NONLABORED. CALL LIGHT IS CLOSE.
--- NOTE | 2019-01-17 02:46 | NUR ---
PT ADMITTED AT 0155 FROM ED VIA STRETCHER. COOPERATIVE WITH ASSESSMENT AND ADMIT QUESTIONS. NO C/O PAIN OR N/V AT THIS TIME. ON CLEAR LIQUIDS, TOLERATING WELL. IVF INFUSING, TELE#[address] WTIH AFIB RHYTHM. LUNGS WITH EXP CRACKLES AT BASES, NO C/O SOB. ORIENTED TO ROOM AND HOSP PROCEDURES. CALL LIGHT AND FLUIDS AT BEDSIDE.
--- NOTE | 2019-01-17 04:32 | NUR ---
PT RESTING, NO C/O SOB OR RESP DISTRESS. ON ROOM AIR. TELE#10, IRREGULAR HR, A-FIB RHYTHM. IVF INFUSING W/O PROBLEMS. HAS NOT C/O ABD PAIN OR N/V SINCE BEING ADMITTED. NO C/O ADVERSE REACTION TO IV ABX. USES CANE/1PA. TOLERATING CLEAR FLUIDS WELL. CALL LIGHT AT BEDSIDE
--- NOTE | 2019-01-17 05:39 | NUR ---
PT AWAKE, VOIDED LARGE AMOUNT OF DARK YELLOW URINE, TOLERATING CLEAR FLUIDS, NO N/V. C/O ABD PAIN 02/27, MEDICATED WITH DILAUDID 0.5MG IV. IVF.ABX INFUSING W/O PROBLEMS, ON ROOM AIR, DENIES SOB. CALL LIGHT AND FLUIDS AT BEDSIDE. AWAKE, VOIDED LARGE AMOUNT OF DARK YELLOW URINE, TOLERATING CLEAR FLUIDS,
--- NOTE | 2019-01-17 06:37 | NUR ---
TALKED TO DR RUIZ R/T NO EGN DONE IN ED, TELE SHOWING AFIB RHYTHM. AND CLARIFICATION OF IV FLUIDS. NEW ORDERS FOR NO EKG AT THIS TIME, STOP IVF. WILL ASSESS PT IN AM
--- NOTE | 2019-01-17 06:44 | NUR ---
IVF DC'D. SL. FLUSHED EASILY, TELE#[address], iRREGULAR HR, DENIES CHEST PAIN OR SOB. AWAKE, IN BED
--- NOTE | 2019-01-17 07:23 | NUR ---
RECIEVED BEDSIDE REPORT FROM SARI PURI. PT IS AWAKE AND ALERT IN BED. PT REPORTS NO PAIN, NO NAUSEA. PT HAS BEEN ON THE PHONE.
--- NOTE | 2019-01-17 09:17 | NUR ---
PT IS ANXIOUS ABOUT HIS HOME MEDS, DR RUIZ HAS NOT SEEN HIM YET. RN EXPLAINED PROCESS AND PT VERBALIZED UNDERSTANDING. PT IS READY FOR "EGGS, TOAST, AND CASTELLANOS!". TOLERATING CLEAR LIQUIDS WELL.
--- NOTE | 2019-01-17 09:30 | NUR ---
SPOKE WITH PATIENT IN THE ROOM. PATIENT LIVES ALONE. IS ESTRANGED FROM DAUGHTER. DOES HAVE CLOSE RELATIONSHIP WITH A SON OUT OF STATE AND SOME NEPHEWS WHO LIVE OUT OF TOWN ALSO. PATIENT USES A CANE, HAS A WALKER AT HOME THAT HE HAS USED. PATIENT STILL DRIVES. PATIENT DENIES PROBLEMS GETTING TO APPOINTMENTS. PATIENT HAS WORKED WITH OUR CHW ERICK IN THE PAST, HE WOULD LIKE HER TO CALL HIM IN A COUPLE WEEKS AND CHECK IN ON HIM. PATIENT FEELS SAFE TO GO HOME AT DISCHARGE.
--- NOTE | 2019-01-17 10:07 | NUR ---
PHARMACY DOES NOT HAVE URSODIL IN STOCK, PT WILL HAVE TO BRING IT IN. DISCUSSED WITH PATIENT, HE STATES HE DOES NOT HAVE ANYONE TO BRING IT IN. ADVISED DR RUIZ AND HAND BRAILLE TRANSCRIBER.
--- NOTE | 2019-01-17 16:01 | NUR ---
COMMERCIAL CENTER MANAGER CALLED RN INTO ROOM. IV SITE WAS BLEEDING AROUND THE DRESSING. IV SITE FLUSHED AND DARIAN BACK WELL. RN TOOK DOWN THE IV DRESSING, CLEANED THE AREA, AND REDRESSED SITE USING OPSITE AND TAPE. AFTER NEW DRESSING APPLIED, IV FLUSHED AND PULLED BACK WELL. PT STATED IV SITE "FELLS MUCH BETTER. IT WAS ALMOST BURNING OR STINGING. NOW ITS NOT."
--- NOTE | 2019-01-17 18:14 | NUR ---
PT ADVANCED TO REGULAR DIET, TOLERATING WELL. PASSING GAS, NO BM. MIRALAX AND SUPPOS WITH NO RESULTS. STATES PAIN IS REDUCED.
--- NOTE | 2019-01-17 19:00 | NUR ---
NEW ORDER FOR LR BOLUS. PT STATES HE HAS BEEN URINATING IN BATHROOM WITHOUT NOTIFYING NURSING STAFF, PT STATES HE HAS URNATED 2 TIMES IN LAST FOUR HOURS. DISCUSSED WITH DR. GONZALES, VERBAL ORDER TO TAKE ORTHOSTATICS VITALS. ORTHOSTATIC VITALS COMPLETED, REVIEWED WITH DR. GONZALES, ORDERED TO DC IV FLUIDS AND BOLUS. PT GIVEN LACTULOSE PER ORDER.
--- NOTE | 2019-01-17 19:14 | NUR ---
RECEIVED REPORT FROM SARI RICH. pt LAYING IN BED WATCHING TV. NO REQUESTS AT THIS TIME. CALL LIGHT WITHIN REACH. WHITEBOARD UPDATED.
--- NOTE | 2019-01-17 20:00 | NUR ---
CALL LIGHT ON. PROVIDED WARM BLANKET. ASSESSMENT DONE. pt DENIES PAIN AND SOB. WILL RETURN WITH MEDS. pt AGREEABLE TO PLAN. CALL LIGHT WITHIN REACH.
--- NOTE | 2019-01-17 21:08 | NUR ---
MEDICATIONS ADMINISTERED (SEE MAR). VITALS AND I&O RECORDED. WATER REFILLED. NO FURTHER REQUESTS AT THIS TIME. CALL LIGHT WITHIN REACH.
--- NOTE | 2019-01-17 21:40 | NUR ---
SPLICER HELPERSARI KNOWLES NOTE. PT RESTING IN BED WITH EYES CLOSED, CALL LIGHT IN REACH. DOES NOT WAKE WHEN WET CHAR CONVEYOR TENDER ENTERS THE ROOM. WHITE BOARD UPDATED.
--- NOTE | 2019-01-17 23:03 | NUR ---
WOKE pt TO GIVE MEDICATION (SEE MAR). NO REQUESTS AT THIS TIME. CALL LIGHT WITHIN REACH.
--- NOTE | 2019-01-18 01:00 | NUR ---
ROUNDED ON pt. RESTING WITH EYES CLOSED, RESPIRATIONS REGULAR AND UNLABORED. CALL LIGHT WITHIN REACH.
--- NOTE | 2019-01-18 01:58 | NUR ---
CALL LIGHT ON. pt COMPLAINING OF "GAS" PAIN. ENCOURAGED pt TO AMBULATE. SBA WITH JUANCHO PAULA, GISELLA WITH pt.
--- NOTE | 2019-01-18 04:11 | NUR ---
ROUNDED ON pt. RESTING WITH EYES CLOSED, RESPIRATIONS REGULAR AND UNLABORED. CALL LIGHT WITHIN REACH.
--- NOTE | 2019-01-18 04:44 | NUR ---
pt RESTED ON AND OFF DURING SHIFT. UP WITH ABD DISCOMFORT, AMBULATED AROUND UNIT X2. SBA WITH CANE. PASSED GAS, NO BM. IV SL. TOLERATING REGULAR DIET. USES CALL LIGHT APPROPRIATELY.
--- NOTE | 2019-01-18 07:04 | NUR ---
RECIEVED BEDSIDE REPORT FROM SARI OSULLIVAN. PT IS AWAKE AND ALERT IN BED. PT STATES HE NEEDS A STRONGER LAXITIVE, WHAT HE HAS IS NOT WORKING. PT STATED HE WAS AWAKE OVERNIGHT.
--- NOTE | 2019-01-18 10:06 | NUR ---
PT HAS FINISHED FIRST BOTTLE OF BOWEL PREP. NO RESULTS OF YET.
[2019-01-18] MEDS ORDERED: DILTIAZEM 24HR240 M3 PO (10:50)
[2019-01-18] MEDS ORDERED: DILTIAZEM 24HR180 M1 PO (10:55)
[2019-01-18] MEDS ORDERED: IPRAT-ALBUT 0.5-3 ML INH (11:02)
--- NOTE | 2019-01-18 14:20 | NUR ---
SOAPSUDS ENEMA GIVEN TO PT. PT TOLERATED WELL, STATED SEVERAL TIMES HE HAD NEVER HAD ONE LIKE THAT BEFORE. APROX 32 OZ OF WATER INSTILLED, APROX 2O OZ RETAINED. PT STATED THAT HE COULD FEEL THE PRESSURE AND THAT HE REALLY NEEDED TO SIT ON THE TOILET. PT SAT ON THE TOLIET AND HAD A LARGE BM. MULTIPLE LARGE MARBLE/WALNUT SIZED CHUNKS OF STOOL OBSERVED IN THE TOILET. PT STATED "AT THE END OF THE MOVEMENT, I COULD FEEL HARD ROCKS COME OUT. I CAN FEEL THERE IS MORE UP THERE." PT IS RESTING COMFORTABLY IN BED AT THIS TIME. PT HAS FINISHED SECOND BOTTLE OF BOWEL PREP.
--- NOTE | 2019-01-18 14:33 | NUR ---
PT STATED THAT THE PAIN IN HIS BELLY IS GONE AFTER THE BM.
--- NOTE | 2019-01-18 17:14 | NUR ---
PT IS RESTING. STATES HIS STOMACH IS FEELING BLOATED AND FULL AGAIN. PT CANCELED DINNER, REQUESTING A BOWL OF SOUP. NO ADDITIONAL BOWEL MOVEMENT.
--- NOTE | 2019-01-18 19:41 | NUR ---
PATIENT RESTING IN BED WATCHING TV. PATIENT IN NO PAIN AND HAS NO REQUWSTS AT THIS TIME.
--- NOTE | 2019-01-18 19:55 | NUR ---
CHARGE NURSE ROUNDING. CALL LIGHT ON. pt UP TO TOILET. WILL CALL WHEN DONE. WHITEBOARD UPDATED. NO REQUESTS OR COMPLAINTS. CALL LIGHT WITHIN REACH.
--- NOTE | 2019-01-18 21:45 | NUR ---
PATIENT RESTING QUIETLY ON HIS LEFT SIDE, EYES CLOSED, RESPIRATIONS REGULAR AND EVEN.
--- NOTE | 2019-01-18 23:25 | NUR ---
PATIENT AWAKENS EASILY AND HAS DENIED TO HAVE HIS LATE NIGHT ENEMA, WILL HAVE THE ONE IN THE AM IF HE FEELS HE NEEDS IT.
--- NOTE | 2019-01-19 01:14 | NUR ---
PATIENT RESTING QUIETLY ON HIS LEFT SIDE, EYES CLOSED, RESPIRATIONS REGULAR AND EVEN.
--- NOTE | 2019-01-19 02:18 | NUR ---
IV PUMP BEEPING. IV FLUIDS COMPLETE. SL. NO REQUESTS AT THIS TIME. CALL LIGHT WITHIN REACH.
--- NOTE | 2019-01-19 03:00 | NUR ---
PATIENT RESTING QUIETLY ON HIS RIGHT SIDE, EYES CLOSED, RESPIRATIONS REGULAR AND EVEN, AND CALL LIGHT IN PLACE.
--- NOTE | 2019-01-19 04:49 | NUR ---
PATIENT HAS REST WELL MOST OF THE NIGHT. IV IS NOW SALINE LOCKED. PATIENT IS USING THE URINAL TO VOID AND IS STILL HAVING LIQUID STOOLS WHEN GOING TO THE BATHROOM. JUST CAME OUT TO GET A CUP OF VEGATABLE BROTH. HAVING NO PAIN AT THIS TIME AND IV FLUSHES WELL.
--- NOTE | 2019-01-19 07:28 | NUR ---
0720: PT RESTING IN HIS BED WITH NO COMPLAINTS OF ABD DISCOMFORT. CALL ALVARADO WITHIN REACH. BEDSIDE REPORT RECIEVED FROM MARTIN GUO.
--- NOTE | 2019-01-19 08:03 | NUR ---
PATEINT WAITING FOR BREAKFAST, PATIENT HAS ALREADY AMBULATED THIS MORNING, PATIENT NEEDED NO OTHER ASSISTANCE AT THIS TIME, CALL LIGHT WITHIN REACH
--- NOTE | 2019-01-19 09:20 | NUR ---
PT RESTING IN HIS BED AND HE DENIES ANY ABD PAIN OR DISCOMFORT. HIS BOWEL SOUNDS ARE ACTIVE, ABD IS SOFT AND STATES HIS ABD FEELS NORMAL. PT DENIES ANY SOB OR OTHER PROBLEMS.
--- NOTE | 2019-01-19 10:11 | NUR ---
1000: DR MARR TO THE ROOM SPEAKING WITH THE PT.
--- NOTE | 2019-01-19 10:31 | NUR ---
PT SLEEPING, REGULAR RR NOTED.
--- NOTE | 2019-01-19 11:13 | NUR ---
PT LAYING IN HIS BED AND HE STATES THAT HE FEELS BODY VERY TIRED. VITAL SIGNS CHECKED AND ARE STABLE. PT DENIES ANY CHEST PAIN BUT SOME SLIGHT SOB. LUNG SOUNDS DECREASED AND CLEAR WITH A SAT OF 94% ON ROOM AIR.
--- NOTE | 2019-01-19 11:25 | NUR ---
DR GONZALES NOTIFIED OF THE PT'S COMPLAINT OF FEELING TIRED. HE STATES HE WILL COME SEE THE PT.
--- NOTE | 2019-01-19 11:31 | NUR ---
DR GONZALES IN THE ROOM SPEAKING WITH THE PT AT THIS TIME.
[2019-01-19] MEDS ORDERED: CIPROFLOXACIN500 MG PO (11:46)
[2019-01-19] MEDS ORDERED: METRONIDAZOLE500 MG PO (11:47)
== END 2019-01-19 12:25 | disposition home or self-care (01) ==
LOC: ED 20:37 → MS 20:39
PROVIDERS: ADMIT Student in an Organized Health Care Education/Training Program
DX: K52.9 Noninfective gastroenteritis and colitis, unspecified (principal); K59.09 Other constipation; J44.9 Chronic obstructive pulmonary disease, unspecified; I11.0 Hypertensive heart disease with heart failure; I50.9 Heart failure, unspecified; I25.2 Old myocardial infarction; I48.2 Chronic atrial fibrillation; K21.9 Gastro-esophageal reflux disease without esophagitis; E78.5 Hyperlipidemia, unspecified; Z95.5 Presence of coronary angioplasty implant and graft; Z87.891 Personal history of nicotine dependence; Z88.8 Allergy status to other drugs, medicaments and biological substances; Z79.02 Long term (current) use of antithrombotics/antiplatelets; Z79.899 Other long term (current) 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
CPT/HCPCS: 74177; 80053; 81001; 83690; 85025; 94640; 94760; 94762; 96361; 96366; 96375; 97110; 97116; 97162; 99285-25; G0378; J0744; J1170; J2405; J7030; J7040; J7120; Q9967

== ENCOUNTER 2019-02-08 20:34 | Emergency (ER) | payer MEDICARE ==
[~2019-02-08] VITALS: Ht 175.3 cm; Wt 76.3 kg
[~2019-02-08 20:34] MED LIST changes: +CIPROFLOXACIN500 MG PO; +DILTIAZEM 24HR180 M1 PO; +DILTIAZEM 24HR240 M3 PO; +ELIQUIS5 MG PO; +METRONIDAZOLE500 MG PO; +URSODIOL250 MG PO
--- OUTSIDE RECORDS SUMMARY | 2019-02-08 20:36 | XMS ---
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 Details: LW CRITERIA MET - Group Notification - [facility] - 2 Visits in 30 Days CARE PROVIDERS ROSA ENNIS 05/31/2018-Current PHONE: Unknown DOCTOR LYNN Primary Care Current PHONE: Unknown ADAIR PRICE Primary [facility] PHONE: Unknown Lana March MD Primary Care Current PHONE: [phone] or_ricardo Case or Fringing Machine Operator Current PHONE: Unknown LANA Martin 12/10/2012-Current PHONE: Unknown Jose F has no Care Guidelines for this patient. [place] VISIT COUNT (12 MO.) 1 Nevaeh Lynn M[facility] 10 SHIRA Hamlin TOTAL 11 NOTE: Visits indicate total known visits. ED/UCC VISIT TRACKING (12 MO.) 02/08/2019 20:35 [facility] [place] TYPE: Emergency COMPLAINT: - RAPID HEART RATE 01/16/2019 20:38 [facility] [place] TYPE: Emergency COMPLAINT: - MULTIPLE COMPLAINTS 01/01/2019 11:02 [facility] [place] TYPE: Emergency COMPLAINT: - FAST HEART RATE DIAGNOSES: - Allergy status to other drugs, medicaments and biological substances status - Essential (primary) hypertension - Other mcc (current) 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 - Unspecified atrial fibrillation [...] specified parts of digestive tract - Other mcc (current) 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 - Heart failure, unspecified - Presence of coronary angioplasty implant and graft - Hypertensive heart disease with heart failure 07/05/2018 14:32 [facility] [place] TYPE: Emergency COMPLAINT: - ABD PAIN DIAGNOSES: - Other rat exterminator (current) 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 - Presence of coronary [...] heart disease with heart failure - Other rat exterminator (current) 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 - Left upper quadrant pain - Left lower quadrant pain - Old myocardial infarction 06/24/2018 11:48 [facility] [place] TYPE: Emergency COMPLAINT: - ABD PAIN DIAGNOSES: - Other mcc (current) 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 - Presence of coronary [...] medicaments and biological substances status - Other rat exterminator (current) 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 - Old myocardial infarction [...] Chronic obstructive pulmonary disease, unspecified - Other rat exterminator (current) 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 - Hypertensive heart disease with heart failure - Hematuria, unspecified [facility]17[facility]2018 17:[facility] [place] [facility] DIAGNOSES: - arm lac - [...] medicaments and biological substances status - Other rat exterminator (current) 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 - Hypertensive heart disease with heart failure - Pleurodynia - Fall on same level, unspecified, initial encounter - Heart failure, unspecified - Old myocardial infarction - Pain in left elbow INPATIENT VISIT TRACKING (12 MO.) 01/16/2019 20:39 [facility] [place] TYPE: Observation COMPLAINT: - ABD PAIN,ISCHEMIC COLITIS,VERSUS DIVERTICULITIS DIAGNOSES: - Allergy status to other drugs, medicaments and biological substances status - Chronic atrial fibrillation - Unspecified abdominal pain - Old myocardial infarction - Other constipation - Presence of coronary angioplasty implant and graft - MCC (current) use of antithrombotics/antiplatelets - Other rat exterminator (current) 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 - Gastro-esophageal reflux disease without esophagitis - Chronic obstructive pulmonary disease, unspecified - Hyperlipidemia, unspecified - Noninfective gastroenteritis and colitis, unspecified - Heart failure, unspecified - Personal history of nicotine dependence - Hypertensive heart disease with heart failure 07/06/2018 11:51 [facility] [place] TYPE: Medical Surgical DIAGNOSES: - Cholangitis - Unspecified fracture of left acetabulum, subsequent encounter for fracture with routine healing - Unspecified fracture of left acetabulum, sequela 05/31/2018 11:48 [facility] TYPE: Orthopedic DIAGNOSES: [id number] [id number]. Hematemesis . Ileus, unspecified . Personal history of (healed) traumatic fracture . Other postprocedural complications and disorders of digestive system [email or web address]
[2019-02-08] MEDS ORDERED: GOLYTELY SOLU4000 ML PO (22:14)
--- NOTE | 2019-02-09 12:44 | EKG ---
[facility] [address] [place] [address] Signed Sinus rhythm with 1st degree AV block with premature atrial complexes Right bundle branch block Abnormal ECG When compared with ECG of 01-JAN-2019 11:54, Sinus rhythm has replaced Atrial fibrillation Confirmed by ELADIO RUIZ DO ([id number]) on 02/09/2019 12:44:44 PM Electronically Signed By: ELADIO RUIZ DO 02/09/19 1244 PATIENT NAME: NATALIEDSON Electrocardiogram DATE OF : 35 PHYSICIAN: ELADIO RUIZ DO REPORT #: [id number] REPORT IS CONFIDENTIAL AND NOT TO BE RELEASED WITHOUT AUTHORIZATION
== END 2019-02-08 22:32 | disposition home or self-care (01) ==
LOC: ED 20:34
DX: I48.0 Paroxysmal atrial fibrillation (principal); K59.00 Constipation, unspecified; I50.9 Heart failure, unspecified; Z87.891 Personal history of nicotine dependence; Z88.8 Allergy status to other drugs, medicaments and biological substances; Z79.899 Other long term (current) 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
CPT/HCPCS: 80053; 83735; 84484; 85025; 93005; 93010; 99285-25

== ENCOUNTER 2019-07-23 17:40 | Emergency (ER) | payer MEDICARE ==
[~2019-07-23] VITALS: Ht 175.3 cm; Wt 76.3 kg
[~2019-07-23 17:40] MED LIST changes: +GOLYTELY SOLU4000 ML PO
== END 2019-07-23 19:04 | disposition home or self-care (01) ==
LOC: ED 17:40
DX: S51.811A Laceration without foreign body of right forearm, initial encounter (principal); W01.198A Fall on same level from slipping, tripping and stumbling with subsequent striking against other object, initial encounter; I50.9 Heart failure, unspecified; I48.91 Unspecified atrial fibrillation; Z87.891 Personal history of nicotine dependence; Z88.8 Allergy status to other drugs, medicaments and biological substances; Z79.899 Other long term (current) 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
CPT/HCPCS: 90471; 90715; 99283-25

== ENCOUNTER 2019-07-30 01:15 | Inpatient (IN) | payer MEDICARE ==
[~2019-07-30] VITALS: Ht 175.3 cm; Wt 71.0 kg
--- OUTSIDE RECORDS SUMMARY | 2019-07-30 01:18 | XMS ---
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 Details: LW CRITERIA MET - Group Notification - [facility] - 2 Visits in 30 Days CARE PROVIDERS ROSA ENNIS 05/31/2018-Current PHONE: Unknown DOCTOR LYNN Primary Care Current PHONE: Unknown JOSEPH PRICE Primary Care [facility] PHONE: Unknown Lana March MD Primary Care Current PHONE: [phone] or_ricardo Case or Dealer Sales Manager Current PHONE: Unknown LANA Martin 12/10/2012-Current PHONE: Unknown Jose F has no Care Guidelines for this patient. [place] VISIT COUNT (12 MO.) 7 SHIRA Hamlin TOTAL 7 NOTE: Visits indicate total known visits. ED/UCC VISIT TRACKING (12 MO.) 07/30/2019 01:15 [facility] [place] TYPE: Emergency COMPLAINT: - SOB 07/26/2019 11:58 [facility] [place] TYPE: Emergency COMPLAINT: - MULTIPLE COMPLAINTS DIAGNOSES: - Fall on same level, unspecified, initial encounter - Personal history of nicotine dependence - Chronic obstructive pulmonary disease, unspecified - Heart failure, unspecified - Dorsalgia, unspecified - Unsp fracture of first lumbar vertebra, init for clos fx - Unspecified atrial fibrillation 07/23/2019 17:40 [facility] [place] TYPE: Emergency COMPLAINT: - FALL DIAGNOSES: - Unspecified atrial fibrillation - Allergy status to oth drug/meds/biol subst status - Laceration w/o foreign body of right forearm, init encntr - Personal history of nicotine dependence - Heart failure, unspecified - Fall same lev from slip/trip w strike agnst oth object, init - Other indian trader (current) 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 - Laceration w/o foreign body of right forearm, init encntr 02/08/2019 20:35 [facility] [place] TYPE: Emergency COMPLAINT: - RAPID HEART RATE DIAGNOSES: - Other indian trader (current) 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 - Constipation, unspecified - Palpitations - Allergy status to oth drug/meds/biol subst status - Heart failure, unspecified - Personal history of nicotine dependence - Paroxysmal atrial fibrillation 01/16/2019 20:38 [facility] [place] TYPE: Emergency COMPLAINT: - MULTIPLE COMPLAINTS 01/01/2019 11:02 [facility] [place] TYPE: Emergency COMPLAINT: - FAST HEART RATE DIAGNOSES: - Allergy status to oth drug/meds/biol subst status - Essential (primary) hypertension - Other longterm (current) 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 - Unspecified atrial fibrillation - Chronic obstructive pulmonary disease, unspecified - Heart failure, unspecified 10/19/2018 21:55 [facility] [place] TYPE: Emergency COMPLAINT: - RAPID HEART RATE DIAGNOSES: - Old myocardial infarction - Tachycardia, unspecified - Personal history of nicotine dependence - Chronic atrial fibrillation - Allergy status to oth drug/meds/biol subst status - Acquired absence of other specified parts of digestive tract - Other longterm (current) 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 - Heart failure, unspecified - Presence of coronary angioplasty implant and graft - Hypertensive heart disease with heart failure INPATIENT VISIT TRACKING (12 MO.) 01/16/2019 20:39 [facility] [place] TYPE: Observation COMPLAINT: - ABD PAIN,ISCHEMIC COLITIS,VERSUS DIVERTICULITIS DIAGNOSES: - Allergy status to oth drug/meds/biol subst status - Chronic atrial fibrillation - Unspecified abdominal pain - Old myocardial infarction - Other constipation - Presence of coronary angioplasty implant and graft - professor of geography (current) use of antithrombotics/antiplatelets - Other longterm (current) 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 - Gastro-esophageal reflux disease without esophagitis - Chronic obstructive pulmonary disease, unspecified - Hyperlipidemia, unspecified - Noninfective gastroenteritis and colitis, unspecified - Heart failure, unspecified - Personal history of nicotine dependence - Hypertensive heart disease with heart failure [email or web address]
[2019-07-30] MEDS ORDERED: ASPIRIN EC325 MG PO (05:31)
[2019-07-30] MEDS ORDERED: LASIX20 MG PO (05:32)
--- NOTE | 2019-07-30 17:12 | EKG ---
[facility] [address] [place] [address] Signed Atrial fibrillation with a competing junctional pacemaker Left axis deviation Right bundle branch block Abnormal ECG When compared with ECG of 08-FEB-2019 20:50, Atrial fibrillation has replaced Sinus rhythm Confirmed by AMANDA GONZALES MD ([id number]) on 07/30/2019 5:12:22 PM Electronically Signed By: AMANDA GONZALES MD 07/30/19 171 PATIENT NAME: EDSON HURST BRITTANY Electrocardiogram DATE OF : 35 PHYSICIAN: AMANDA GONZALES MD REPORT #: [id number] REPORT IS CONFIDENTIAL AND NOT TO BE RELEASED WITHOUT AUTHORIZATION
[2019-07-31] MEDS ORDERED: K-TAB ER20 MEQ PO (13:12)
[2019-07-31] MEDS ORDERED: TRAZODONE HCL50 MG PO (15:28)
== END 2019-08-03 16:30 | disposition swing bed (61) | DRG 291 ==
LOC: ED 01:15 → MS 01:16
PROVIDERS: ADMIT Internal Medicine
DX: I50.33 Acute on chronic diastolic (congestive) heart failure (principal); J96.01 Acute respiratory failure with hypoxia; J13 Pneumonia due to Streptococcus pneumoniae; J44.0 Chronic obstructive pulmonary disease with (acute) lower respiratory infection; I48.20 Chronic atrial fibrillation, unspecified; K59.03 Drug induced constipation; K21.9 Gastro-esophageal reflux disease without esophagitis; T40.2X5A Adverse effect of other opioids, initial encounter; S32.010D Wedge compression fracture of first lumbar vertebra, subsequent encounter for fracture with routine healing; E78.5 Hyperlipidemia, unspecified; Z88.8 Allergy status to other drugs, medicaments and biological substances; Z87.891 Personal history of nicotine dependence; Z77.090 Contact with and (suspected) exposure to asbestos; Z79.899 Other long term (current) 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; Z79.82 Long term (current) use of aspirin
CPT/HCPCS: 36415; 71260; 74022; 80048; 80053; 83735; 83880; 84484; 85025; 85379; 93005; 93010; 94640; 94667; 94668; 94762; 97110; 97116; 97162; 97165; 97530; 99285-25; J1650; J1940; J1956; J2405; Q9967

== ENCOUNTER 2019-08-03 16:31 | Inpatient (IN) | payer MEDICARE ==
[~2019-08-03] VITALS: Ht 175.3 cm; Wt 71.7 kg
[~2019-08-03 16:31] MED LIST changes: +ASPIRIN EC325 MG PO; +K-TAB ER20 MEQ PO; +LASIX20 MG PO
--- NOTE | 2019-08-03 20:07 | NUR ---
c/o 11/27 back pain, medicated with oxycodone 5mg po. awake, watching tv. pt on swing bed status now
--- NOTE | 2019-08-03 22:27 | NUR ---
PT RESTING, EYES CLOSED, RECEIVED TRAZADONE 50MG PO C/O INSOMNIA, NO FURTHER C/O PAIN AT THIS TIME, O2 2L NC, MOIST NON PRODUCTIVE COUGH. PLEASANT WITH ASSESSMENT.
--- NOTE | 2019-08-04 00:22 | NUR ---
rsting, eyes closed, O2 in place, no distress. no further c/o pain. call light at bedside
--- NOTE | 2019-08-04 02:04 | NUR ---
rsting, eyes closed, uses urinal, O2 2L NC inplace, turns self in bed. call light and fluids at bedside
--- NOTE | 2019-08-04 05:17 | NUR ---
Up walking hallways with RN. Pt on 1L NC. Wearing back brace. tolerated well Back to bed. Sats 92% on return.
--- NOTE | 2019-08-04 05:19 | NUR ---
Pt has been medicated with Oxycodone x1 per back pain with goodpain control and trazadone 50mg per insomnia, slept at intervals. No bm this shift. Pt to get Lactulose this am. Wears a brace when up. No further c/o pain . Call light and fluids aqt bedside. Pt on transitional care status.
--- NOTE | 2019-08-04 07:39 | NUR ---
RECIEVED BEDSIDE REPORT FROM SARI PURI. PT IS AWAKE AND ALERT IN BED. PT UP WITH BRACE OVERNIGHT. PAIN WELL CONTROLLED.
--- NOTE | 2019-08-04 09:00 | NUR ---
CM assessment completed.
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
--- NOTE | 2019-08-04 11:57 | NUR ---
Certified Heart Failure Nurse Notes: Second visit with Mr Burns. Patient able to identify weight gain to report and sodium label reading using teach back. Spoke at length on diet. Patient does cook for self and sometimes uses [employer] dinners. Loves fruits and vegetables. Educated on flavor options that are no sodium. 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 Patient is receptive to home health services post discharge. Has heart failure DC packet and [facility] contact information Today was given Low Sodium Shopping list and healthier option frozen dinner handout.
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
--- NOTE | 2019-08-04 19:54 | NUR ---
REPORT RECEIVED FROM DAY SHIFT RN. PT SITTING UP IN BED, ALERT AND ORIENTED WATCHING TV. C/O DIFFICULTY BREATHING. SPO2 97% ON 1L/NC, HR 67. RR EVEN AND NON-LABORED. PT USING ACCAPELLA AT BEDSIDE. C/O NON-PRODUCTIVE COUGH AND FEELING LIKE HE "NEEDS TO GET STUFF OUT" BUT IS NOT ABLE TO. FAN PROVIDED. WILL DISCUSS WITH RESPIRATORY THERAPIST.
--- NOTE | 2019-08-04 22:20 | NUR ---
EVENING ASSESSMENT COMPLETE. SCHEDULED MEDS GIVEN WITHOUT ISSUE. PT STATES BREATHING HAS IMPROVED. RR EVEN AND UNLABORED. OXYGEN 1L/NC IN PLACE. PT DENIES PAIN OR SOB AT THIS TIME. NO FURTHER NEEDS. CALL LIGHT IN REACH.
--- NOTE | 2019-08-05 00:38 | NUR ---
PT RESTING IN BED WITH EYES CLOSED, NAD.
--- NOTE | 2019-08-05 01:33 | NUR ---
PT UP TO BR WITH FWW AND SBA TO VOID AND HAVE SMALL SOFT BOWEL MOVEMENT. BACK BRACE IN PLACE. BACK TO BED, NICK WELL. PRN GIVEN FOR C/O BACK PAIN. NO FURTHER NEEDS.
--- NOTE | 2019-08-05 05:31 | NUR ---
PT SLEPT WELL. ALERT AND ORIENTED, USES CALL LIGHT APPROPRIATELY. SBA WITH FWW. BACK BRACE WHEN AMBULATING D/T L1 FRACTURE. PRN OXY FOR PAIN. BOWEL MOVEMENT THIS SHIFT. 1L/NC.
--- NOTE | 2019-08-05 07:45 | NUR ---
Pt in bed sitting up, a&ox4. Pt has no needs at this time. Personal supplies and call light within reach.
--- NOTE | 2019-08-05 10:31 | NUR ---
PATIENT IS AWAKE IN BED. WILL SHOWER WHEN FRIEND BRINGS HIS OWN SOAP/SHAMPOO. HE WILL LET ME KNOW WHEN READY. PATIENT DOES NOT NEED ANYTHING AT THIS TIME. CALL LIGHT IN REACH.
--- NOTE | 2019-08-05 13:02 | NUR ---
Admin tylenol 500mg po for reports of lower back pain, 09/27.
--- NOTE | 2019-08-05 13:30 | NUR ---
Spoke with Carlos and he is walking well. Will cont. with PT, until he can safely be discharged to home.
--- NOTE | 2019-08-05 14:48 | NUR ---
PT SITTING UP IN BED, WATCHING TV. PT SEEMS IN BETTER SPIRITS TODAY, SAID HE HAD A DECENT SLEEP AND REALLY ENJOYED HIS MEALS TODAY. P.T. WAITING TO BE WITH PT, GAVE A BLESSING, PT THANKED ME
--- NOTE | 2019-08-05 16:30 | NUR ---
in to talk WITH THE PT REGARDING HIS DIAGNOSIS AND WHAT HE IS GOING TO BE DOING FOR HIMSELF AND WHAT OPTIONS ARE OUT THERE FOR HIM. HE STATES THAT DR GONZALES SAYS HE WANTS HIM TO BE HERE FOR A MINIMUM OF 10 MORE DAYS, BEFORE HE EVEN THINKS ABOUT GOING HOME AND THAT DR GONZALES ALSO STATED HE DIDN'T WANT HIM IN A NURSING FACILITY AT ALL THAT WOULD MAKE HIM SICKER THAN HE ALREADY IS.
--- NOTE | 2019-08-05 17:14 | NUR ---
Admin 5ml of robitussin po for reports of cough.
--- NOTE | 2019-08-05 19:19 | NUR ---
REPORT RECEIVED FROM DAY SHIFT RN. PT SITTING UP IN BED, ALERT AND ORIENTED. O2 1L/NC IN PLACE. WHITE BOARD UPDATED. PT DENIES NEEDS AT THIS TIME. CALL LIGHT IN REACH.
--- NOTE | 2019-08-05 20:29 | NUR ---
UP TO BR WITH SBA. BACK TO BED, NICK WELL. INCREASED RESPIRATIONS AND SOB WITH ACTIVITY. SHALLOW NON-PRODUCTIVE COUGH NOTED. OXYGEN IN PLACE.
--- NOTE | 2019-08-05 20:37 | NUR ---
EVENING ASSESSMENT COMPLETE. SCHEDULED MEDS GIVEN WITHOUT ISSUE. PT DENIES PAIN AT THIS TIME. C/O CHEST CONGESTIONS AND NOT BEING ABLE TO COUGH STUFF UP. WILL GIVE PRN EXPECTORANT WHEN AVAILABLE. OXYGEN IN PLACE. NO FURTHER NEEDS AT THIS TIME. CALL LIGHT IN REACH.
--- NOTE | 2019-08-06 02:12 | NUR ---
PT RESTING IN BED WITH EYES CLOSED, NAD.
--- NOTE | 2019-08-06 05:46 | NUR ---
PT SLEPT WELL. ALERT AND ORIENTED, USES CALL LIGHT. SBA WITH FWW. BACK BRACE WITH AMBULATION. PRN OXY FOR PAIN. VOID QS. DAILY WEIGHT. O2 1L/NC.
--- NOTE | 2019-08-06 07:50 | NUR ---
Called and updated son, Sukhwinder. He states concern for need for HH and for 02. Explained about 02 qualifier and will order HH on dc. Pt has a walker. Son states concern about Carlos having 50 chickens which he considers pets. Per son it is uneven ground and pt walks down uneven ground daily to check on his chickens. He voices pt needs to go to an assisted living. Informed that is up to him and Carlos. I offered SNF and [facility] and was told very clearly pt will NOT go any place but home.
--- NOTE | 2019-08-06 07:55 | NUR ---
Pt resting in bed, respirations even and non labored. Pt is on 1l oxygen per nc. No distress noted. Personal supplies and call light within reach. No needs.
--- NOTE | 2019-08-06 08:21 | NUR ---
pt washes hands and face refuses up to chair has his breakfast in bed. fresh h20 and newspaper provided
--- NOTE | 2019-08-06 09:15 | NUR ---
Spoke with Carlos. He states he feels he is improving. I called and spoke with his son. Let him know we will not dc pt home unsafely. He states he can try and return next week. Updated Carlos is walking well, but remains on 02 and desats easily. Will need HH when he discharges.
--- NOTE | 2019-08-06 10:20 | NUR ---
PT TO THE SHOWER SBA INSISTS ON DOING HIS SHOWER INDEPENDANTLY PT DOES PERSONAL CARES WELL NEEDED ITEMS PROVIDED. LINENS CHANGED. PT BACK TO RESTING IN BED, ACTIVITY WELL TOLERATED
--- NOTE | 2019-08-06 11:39 | NUR ---
Pt sitting up in bed, hob elevated. Pt's respirations are even and non labored. Pt denies needs at this time. Personal supplies and call light within reach.
--- NOTE | 2019-08-06 11:45 | NUR ---
Oxygen decreased to 1/2 liter per NC, sat level of 92%, respirations even and non labored. Pt has no needs. Personal supplies and call light within reach.
--- NOTE | 2019-08-06 14:42 | NUR ---
PT SITTING UP IN BED, WATCHING TV. PT SAID HE FEELS HE IS IMPROVING. REALLY ENJOYED P.T. TODAY. PT IS LONELY, ENJOYS COMPANY AND ATENTION HE IS GETTING GAVE BLESSING WILL CHECK AGAIN
--- NOTE | 2019-08-06 19:05 | NUR ---
SHIFT REPORT RECIEVED FROM HAM GUO. PT RESTING IN BED. NC @ 2.5L. IV INFUSING PER ORDER. IV WNL. NO OTHER NEEDS. CALL LIGHT IN REACH.
--- NOTE | 2019-08-06 20:08 | NUR ---
SHIFT REPORT RECIEVED FROM JUSTUS GUO. PT RESTING IN BED.NC @ 0.5L. NO OTHER NEEDS. CALL LIGHT IN REACH.
--- NOTE | 2019-08-06 20:50 | NUR ---
ASSESSMENT COMPLTEED. LUNGS CLEAR IN UPPER LOBES AND DIMINISHED. SCATTERED BRUISING NOTED. SPO2 99%, PT TITRATED OFF OXYGEN. PRN PAIN MED PROVIDED FOR 7/10 BACK PAIN. ROBOTUSSIN PROVIDED AT PT REQUEST.ICE WATER PROVIDED. NO OTHER NEEDS. CALL LIGHT IN REACH.
--- NOTE | 2019-08-06 21:01 | NUR ---
ROUNDED CHARGE. pt RESTING IN BED, ON RA. PRIMARY RN ADRIANNE IN ROOM. pt DENIES ANY REQUESTS OR CONCERNS.
--- NOTE | 2019-08-06 21:23 | NUR ---
CALL LIGHT ANSWERED. SBA WITH FOUR WHEEL WALKER BACK TO BED, pt ABLE TO REMOVE BACK BRACE HIMSELF. GAIT STEADY WITH WALKER. pt C/O CONSITPATION "IT'S NOT TOO UNCOMFORTABLE YET". STATES PASSING GAS, NO BM FOR TWO DAYS. DENIES NEED FOR ADDITIONAL MEDICATION TONIGHT. CALL LIGHT IN REACH. ON RA, BREATHING UNLABORED. SARI SILVER NOTIFIED AND PLACING NIO BOWEL MEDICATION ORDERS AT THIS TIME.
--- NOTE | 2019-08-06 22:55 | NUR ---
PT RESTING IN BED, EYES CLOSED. RR EVEN, UNLABORED ON RA. CALL LIGHT IN REACH.
--- NOTE | 2019-08-07 00:35 | NUR ---
PT RESTING IN BED, EYES CLOSED. RR EVEN, UNLABORED. PT ON RA. CALL LIGHT IN REACH.
--- NOTE | 2019-08-07 05:51 | NUR ---
PT HS SLEPT THIS SHIFT. MEDICATED X1 WITH OXYCODONE C/O BACK PAIN. USES BACK BRACE WHEN UP AND FWW 1PA. NO FURTHER C/O PAIN. IS A DAILY WEIGHT. NO WEIGHT DONE YET AT THIS TIME, PT IS ON TRANSITIONAL CARE STATUS. ALERT AND ORIENTED. USES CALL LIGHT APPROPRIATELY
--- NOTE | 2019-08-07 07:48 | NUR ---
0725: Bedside report recieved from Maryann GUO. Pt resting in his bed and he states he is only able to void scan amount and feels that he still needs to void. Pt bladder scanned for 605, Dr Mello called and new orders recieved. Call monique within reach.
--- NOTE | 2019-08-07 08:28 | NUR ---
Pt straight cathed for 700 ml of clear yellow urine. Pt states he feels better now.
--- NOTE | 2019-08-07 08:48 | NUR ---
Pt comlpained of urinary retention, scanned for 605. notified, pt straight cathed for 700 ml of clear yellow urine and the pt states he is feeling much better. Pt states he has back pain but declined to take anything for it at this time. Pt medicated as ordered for his bowels and is now up to the toilet attempting to have a BM. Pt denies any other needs. See assessment.
--- NOTE | 2019-08-07 11:35 | NUR ---
Pt sleeping at this time.
--- NOTE | 2019-08-07 13:05 | NUR ---
Pt just attempted to voided and only voided 100 ml. Pt states he feels that he still has the urge. Will bladder scan.
--- NOTE | 2019-08-07 13:06 | NUR ---
Pt states he wants to walk and declined a bladder scanning at this time.
--- NOTE | 2019-08-07 13:20 | NUR ---
CASE MANAGEMENT TALKED WITH PATIENT EARLIER THIS MORNING. PATIENT HAS NOT HAD A BM AND IS ASKING IF WE HAVE PRUNES. WE DO HAVE PRUNES. BROUGHT PATIENT ABOUT 1/4 CUP OF PRUNES AT 0948 AM. HE SAYS HE EATS THEM AT HOME. THANKED ME FOR BRINGING HIM SOME. DIETARY CAN BRING HIM SOME DAILY IF HE WANTS THEM, THOUGH THEY ARE NOT ON THE ROOM SERVICE MENU.
--- NOTE | 2019-08-07 13:24 | NUR ---
A few minutes after the pt voided he was bladder scanned for [address] Mello notifed.
--- NOTE | 2019-08-07 13:45 | NUR ---
Pt ambulated in the halls and walked a complete loop. He states it "feels good". Pt now back to his room and is resting in his bed. Pt used his back brace and 4ww for his walk. Call monique within reach.
--- NOTE | 2019-08-07 19:09 | NUR ---
RECEIVED REPORT FROM SARI GARVIN. pt RESTING IN BED. REPORTED 05/30 PAIN. NO REQUESTS AT THIS TIME. WHITEBOARD UPDATED. CALL LIGHT WITHIN REACH.
--- NOTE | 2019-08-07 20:29 | NUR ---
IN TO DO ASSESSMENT AND GIVE MEDS. pt REQUESTED PRN MED, ACTIVITY SPECIALIST TO GET. ASSESSMENT DONE. MEDICATIONS GIVEN (SEE MAR). VITALS ENTERED. NO FURTHER REQUESTS AT THIS TIME. CALL LIGHT WITHIN REACH.
--- NOTE | 2019-08-07 20:30 | NUR ---
VS AND I&O COMPLETED. ICE WATER PROVIDED. NO OTHER NEEDS. CALL LIGHT IN REACH.
--- NOTE | 2019-08-07 21:16 | NUR ---
PT ASKED TO GO FOR A WALK. PT COMPLETED 2 LAPS AROUND UNIT WITHOUT SOB. PT WAS STEADY AND REQUIRED NO ASSISTANCE. SPO2 92% AFTER WALK. PT BACK IN BED. NO OTHER NEEDS. CALL LIGHT IN REACH.
--- NOTE | 2019-08-07 22:00 | NUR ---
REPORT RECIEVED FROM ABRAN GUO. PT RESTING IN BED, EYES CLOSED. RR EVEN, UNLABORED. CALL LIGHT IN REACH.
--- NOTE | 2019-08-08 00:01 | NUR ---
PT AWAKE IN ROOM, WATCHING TV. NO NEEDS AT THIS TIME. CALL LIGHT IN REACH.
--- NOTE | 2019-08-08 00:34 | NUR ---
PT STATES HE CAN'T SLEEP AND HAS 8/10 BACK PAIN. PRN SLEEP AID AND PAIN MED PROVIDED. NO OTHER NEEDS AT THIS TIME. CALL LIGHT IN REACH.
--- NOTE | 2019-08-08 02:30 | NUR ---
PT RESTING IN BED, EYES CLOSED. RR EVEN, UNLABORED. CALL LIGHT IN REACH.
--- NOTE | 2019-08-08 04:12 | NUR ---
PT RESTING IN BED, EYES CLOSED. RR EVEN, UNLABORED. CALL LIGHT IN REACH.
--- NOTE | 2019-08-08 06:24 | NUR ---
PT RESTING IN BED, EYES CLOSED. PT WAKES WHEN RN ENTERS ROOM. PT ASKED IF HE NEEDS TO USE BR. PT DECLINES. PT EDUCATED THAT IF HE DOES NOT URINATE SOON WE WILL DO A BLADDER SCAN AND POSSIBLE CATH. PT AGREES TO TRY TO URINATE SOON. CALL LIGHT IN REACH.
--- NOTE | 2019-08-08 06:31 | NUR ---
PT SLEPT OFF AND ON THIS SHIFT. UO SUFFICIENT. VSS. PAIN MANAGED WITH PRN PAIN MED. PT TOLERATED BACK BRACE, FWW AND DIET WELL.
--- NOTE | 2019-08-08 06:31 | NUR ---
PT USED URINAL AT BEDSIDE. NO OTHER NEEDS, CALL LIGHT IN REACH.
--- NOTE | 2019-08-08 07:15 | NUR ---
yPatient sleeping in bed, respirations even and unlabored. Rouses to voice. Denies needs at this time, call light within reach.
--- NOTE | 2019-08-08 09:25 | NUR ---
Patient sitting up in bed watching tv. AM medications given, vital signs taken. Assessment complete. Patient denies further needs at this time, call light within reach.
--- NOTE | 2019-08-08 10:15 | NUR ---
Patient up to toilet, voided 300 mls and produced a BM. Back brace in place, patient using FWW and SBA. Patient ambulated hallways and worked with PT. Returned to room. Linens changed. Denies needs at this time, call light within reach. Patient sitting up in bed watching tv.
--- NOTE | 2019-08-08 11:58 | NUR ---
TALKED WITH PT REGARDING THE LIKELIHOOD THAT HE WOULD BE DISCHARGING HOME ON SUNDAY OR SUNDAY AND HE SIGNED THE INTENT TO DISCHARGE LETTER FOR TRANSITIONAL CARE, COPY PLACED IN HIS CHART AND A COPY GIVEN TO THE PT. HE STATES UNDERSTANDING OF THIS. WE ALSO TALKED ABOUT HIM HAVING HOME HEALTH WHEN HE RETURNS HOME, HE WOULD LIKE TO HAVE HOME HEALTH THROUGH [facility]. I TOLD HIM I COULD SET THAT UP FOR HIM. HE ALSO WANTED TO KNOW IF ERICK WOULD STILL BE SEEING HIM AND HELPING HIM WITH THINGS A CHW. WILL STUDENT SUPPORT COUNSELOR HER A MESSAGE REGARDING THIS.
--- NOTE | 2019-08-08 12:07 | NUR ---
Patient sitting up at edge of bed with feet on floor eating lunch. Denies needs at this time, call light within reach.
--- NOTE | 2019-08-08 13:06 | NUR ---
Patient up to toilet, produced BM and voiding QS. Returned to bed with FWW and SBA, back brace in place. Patient reports pain of 8/10, prn pain medication given (see MAR). Denies needs at this time, call light within reach.
--- NOTE | 2019-08-08 14:36 | NUR ---
Patient sitting up at edge of bed with feet on floor. Patient reports pain of 10/10 and a cough. PRN medication given (see MAR). Patient requests albuterol treatment. Dr. Mello notified of patient request, orders acknowledged.
--- NOTE | 2019-08-08 17:30 | NUR ---
Patient sitting up at edge of bed with feet on floor. Dinner delivered. Patient denies pain, no needs at this time. Call light within reach. PM medication given (see MAR).
--- NOTE | 2019-08-08 19:31 | NUR ---
SHIFT REPORT RECIEVED FROM GAGANDEEP GUO. PT ON PHONE AT THIS TIME. CALL LIGHT IN REACH.
--- NOTE | 2019-08-08 21:30 | NUR ---
PT ASSESSMENT COMPLETED. SCHEDULED MEDS PROVIDED. PRN PAIN AND COUGH MEDS PROVIDED. NO EDEMA NOTED. SPO2 94% RA. LUNGS CLEAR IN ALL LOBES. PAIN 2/10 IN BACK. VS AND I&O COMPLETED. ICE WATER PROVIDED. NO OTHER NEEDS AT THIS TIME. CALL LIGHT IN REACH.
--- NOTE | 2019-08-08 22:30 | NUR ---
PT RESTING IN BED, EYES CLOSED. RR EVEN, UNLABORED. CALL LIGHT IN REACH.
--- NOTE | 2019-08-09 00:32 | NUR ---
PT RESTING IN BED, EYES CLOSED. RR EVEN, UNLABORED. CALL LIGHT IN REACH.
--- NOTE | 2019-08-09 02:29 | NUR ---
ASSISTED PT BACK TO BED FROM RESTROOM. PT DENIES FURTHER NEEDS AT THIS TIME. CALL LIGHT IS CLOSE.
--- NOTE | 2019-08-09 03:31 | NUR ---
PT RESTING IN BED,EYES CLOSED. RR EVEN, UNLABORED. CALL LIGHT IN REACH.
--- NOTE | 2019-08-09 05:30 | NUR ---
PT RESTING IN BED, EYES CLOSED. RR EVEN, UNLABORED. I&O COMPLETED. CALL LIGHT IN REACH.
--- NOTE | 2019-08-09 05:34 | NUR ---
PT SLEPT WELL LAST NIGHT. UO SUFFICIENT. PT TOLERATED MEDS AND BACK BRACE WELL. LUNGS CLEAR, NO EDEMA NOTED. PT DECLINED SENOKOT AND MIRALAX DUE TO MULTIPLE LOOSE STOOLS DURING THE DAY.
--- NOTE | 2019-08-09 07:20 | NUR ---
BEDSIDE REPORT RECEIVED
--- NOTE | 2019-08-09 07:36 | NUR ---
PT RESTING IN BED WATCHING TV. REPORTS HAVING LOOSE STOOLS REQUEST LESS BOWEL MED. PT RATES BACK PAIN 7/10 TRYING TO NOT USE OXY REQUESTS TYLENOL
--- NOTE | 2019-08-09 08:20 | NUR ---
PT FINISHED 100% OF BREAKFAST. VITALS TAKEN. PT DENIES NEEDS. CALL LIGHT IN REACH.
--- NOTE | 2019-08-09 09:42 | NUR ---
PT UP AMBULATES THE PULLIAM WITH P/T WELL TOLERATED RETURNS TO ROOM RESTING IN BED
--- NOTE | 2019-08-09 11:24 | NUR ---
PT RESTS IN BED FOR A TIME, UP INDEPENDANTLY IN ROOM, WEARING BACK BRACE. DENIES NEEDS FROM THIS NEWS AGENT AT THIS TIME
--- NOTE | 2019-08-09 13:18 | NUR ---
PT SITTING UP ON EDGE OF BED EATING LUNCH. TYLENOL AND ROBITUSSEN GIVEN PER REQUEST PT STATES HE WANTS TO "PREVENT A PROBLEM" DENIES DISCOMFORTS OR NEEDS AT THIS TIME
--- NOTE | 2019-08-09 15:27 | NUR ---
PT UP AMBULATES THE PULLIAM TALKING ALL THE WHILE WITH SBA, NO SOB, WELL TOLERATED. RETURNS TO THE ROOM SITTING ON THE EDGE OF THE BED.
--- NOTE | 2019-08-09 18:10 | NUR ---
EVENING MEAL WELL TOLERATED PT SITTING UP ON EDGE OF BED WATCHING TV
--- NOTE | 2019-08-09 19:20 | NUR ---
IN ROOM FOR REPORT, PT IS AWAKE IN BED. HE DENIES NEEDS AT THIS TIME. CALL LIGHT IS CLOSE.
--- NOTE | 2019-08-09 21:36 | NUR ---
CALL LIGHT ON. WATER PROVIDED. ASSESSMENT DONE. VITALS AND I&O RECORDED. MEDICATIONS GIVEN (SEE MAR). pt REPORTED 5/10 PAIN, PRN MED GIVEN. pt UP WITH BACK BRACE IN PLACE. AMBULATING IN PULLIAM WITH TINO OBANDOW.
--- NOTE | 2019-08-09 23:37 | NUR ---
ROUNDED ON pt. RESTING WITH EYES CLOSED, RESPIRATIONS REGULAR AND UNLABORED. CALL LIGHT WITHIN REACH.
--- NOTE | 2019-08-10 01:14 | NUR ---
CALL LIGHT ON. pt REQUESTED A "SLEEP AID" GIVEN (SEE MAR). URINAL EMPTIED. NO FURTHER REQUESTS AT THIS TIME. CALL LIGHT WITHIN REACH.
--- NOTE | 2019-08-10 03:47 | NUR ---
ROUNDED ON pt. RESTING WITH EYES CLOSED, RESPIRATIONS REGULAR AND UNLABORED. CALL LIGHT WITHIN REACH.
--- NOTE | 2019-08-10 04:23 | NUR ---
CALL LIGHT ON. pt STATED HE CAN'T SLEEP. AMBULATED IN PULLIAM X1 WITH THIS RN. SOB AND RESTED DURING AMBULATION. O2 93%. RT CALLED FOR BREATHING TREATMENT PER pt REQUEST. pt SITTING ON SIDE OF BED. CALL LIGHT WITHIN REACH.
--- NOTE | 2019-08-10 05:50 | NUR ---
pt RESTED ON AND OFF DURING SHIFT. SBA WITH WALKER, AMBULATED IN PULLIAM X2. SOB EARLY IN THE MORNING, NEB TREATMENT. NO IV. VOIDS IN URINAL, QS. TOLERATING 2GM SODIUM DIET. MUST WEAR BACK BRACE WHEN UP. USES CALL LIGHT APPROPRIATELY.
--- NOTE | 2019-08-10 07:32 | NUR ---
Pt resting in bed, eyes closed, resp even and non labored. Personal supplies and call light within reach.
--- NOTE | 2019-08-10 08:20 | NUR ---
Oxycodone 5mg po admin for reports of 5/10 lower back pain.
--- NOTE | 2019-08-10 08:26 | NUR ---
Admin Oxycodone 5mg po for reports of 5/10 lower back pain.
--- NOTE | 2019-08-10 09:42 | NUR ---
PATIENT IN BED WATCHING TV. FRESH WATER GIVEN. CALL LIGHT IN REACH. NO FURTHER NEEDS AT THIS TIME.
--- NOTE | 2019-08-10 12:26 | NUR ---
PT SITTING UP IN BED AT THIS TIME, RESP EVEN AND NON LABORED. PERSONAL SUPPLIES AND CALL LIGHT WITHIN REACH. NO NEEDS AT THIS TIME.
--- NOTE | 2019-08-10 20:00 | NUR ---
RECEIVED REPORT AT 1900, FOUND PT IN BED. HAD NO CONCERNS AT THAT TIME.
--- NOTE | 2019-08-10 22:00 | NUR ---
V/S ARE WDL, ALL LOBES ARE COARSE, PT DENIES SOB, PT WALKED TWO ROUNDS IN HALLWAY. TRACE EDEMA NOTED IN BILATERAL LOWER LEGS. ABD SOUNDS ARE PRESENT. WILL CONTINUE TO MONITOR.
--- NOTE | 2019-08-11 00:42 | NUR ---
PT IS SLEEPING. NO NEW CONCERNS NOTED.
--- NOTE | 2019-08-11 01:44 | NUR ---
PT IS SLEEPING AT THIS TIME.
--- NOTE | 2019-08-11 02:06 | NUR ---
PT CALLED FOR PRN NEB. RT WAS CALLED.
--- NOTE | 2019-08-11 03:53 | NUR ---
PT IS SLEEPING AT THIS TIME. NO NEW CONCERNS NOTED.
--- NOTE | 2019-08-11 05:47 | NUR ---
ALL LOBES AT TIMES OF ASSESSMENT WERE COARSE. PT DID DENIE SOB. PT WALKED HALWAY X2 THIS SHIFT SO FAR AND TOLERATED IT WELL. PT SLEPT MOST OF THE NIGHT. PT DID ASK FOR A PRN NEB X1, ABD SOUNDS ARE PRESENT, TRACE EDEMA PRESENT IN BILATERAL LOWER LEGS, V/S WDL OVERALL. URINE OUTPUT SO FAR HAS NOT BEEN ADEQUATE. OTHERWISE NO NEW CONCERNS NOTED.
--- NOTE | 2019-08-11 07:22 | NUR ---
Pt sitting in bed watching TV at this time, resp even and non labored. Pt reports improved back pain since last dose of oxycodone. No needs at this time. Personal supplies and call light within reach.
--- NOTE | 2019-08-11 09:16 | NUR ---
Speech therapy in to see pt for evaluation. Per ST report she is recommending pt to be on a regular diet. Please see her charting for further details pertaining to her assessment.
--- NOTE | 2019-08-11 10:33 | NUR ---
PATIENT IN BED WATCHING TV. FRESH WATER GIVEN. CALL LIGHT IN REACH. NO FURTHER NEEDS AT THIS TIME.
--- NOTE | 2019-08-11 12:37 | NUR ---
PT ALERT, ORIENTED AND VERY PLEASED WITH HIS CARE. REALLY LIKES THE FOOD, MENTIONED HIS SON FROM [place] WILL BE HERE LATER IN LTHE WEEK. SHARP BACK PAIN WOKE PT UP LAST NIGHT AND WAS ABLE TO RETURN TO SLEEP AFTER SOME MEDS AND THIS SEEMED TO HELP. PT REQUESTED PRAYER
[2019-08-11] MEDS ORDERED: OXYCODONE HCL5 MG PO (13:24)
--- NOTE | 2019-08-11 13:30 | NUR ---
Oxycodone 5mg po admin for 5/10 lower back pain.
[2019-08-12] MEDS ORDERED: HYDROMORPHONE HC2 MG PO (10:51)
[2019-08-12] MEDS ORDERED: ONDANSETRON ODT4 MG PO (10:51)
== END 2019-08-11 16:14 | disposition home or self-care (01) | DRG 91 ==
LOC: MS 16:31
PROVIDERS: ADMIT Internal Medicine
DX: R26.81 Unsteadiness on feet (principal); J96.91 Respiratory failure, unspecified with hypoxia; I50.32 Chronic diastolic (congestive) heart failure; I48.21 Permanent atrial fibrillation; S32.010D Wedge compression fracture of first lumbar vertebra, subsequent encounter for fracture with routine healing; J44.9 Chronic obstructive pulmonary disease, unspecified; K21.9 Gastro-esophageal reflux disease without esophagitis; E78.5 Hyperlipidemia, unspecified; R33.9 Retention of urine, unspecified; Z79.82 Long term (current) use of aspirin; Z79.891 Long term (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 analgesic; Z79.899 Other long term (current) 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; Z88.8 Allergy status to other drugs, medicaments and biological substances
CPT/HCPCS: 51798; 94640; 94668; 94760; 97110; 97116; 97162; 97165; 97530; 97535; J1650

== ENCOUNTER 2019-08-12 09:08 | Emergency (ER) | payer MEDICARE ==
[~2019-08-12] VITALS: Ht 175.3 cm; Wt 68.1 kg
--- OUTSIDE RECORDS SUMMARY | 2019-08-12 09:10 | XMS ---
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 Details: LW CRITERIA MET - Group Notification - [facility] - 2 Visits in 30 Days CARE PROVIDERS ROSA ENNIS 05/31/2018-Current PHONE: Unknown DOCTOR LYNN Primary Care Current PHONE: Unknown Lana March MD Primary Care Current PHONE: [phone] monica Case or [employer] Current PHONE: Unknown LANA Martin 12/10/2012-Current PHONE: Unknown Jose F has no Care Guidelines for this patient. [place] VISIT COUNT (12 MO.) 8 [facility] TOTAL 8 NOTE: Visits indicate total known visits. ED/UCC VISIT TRACKING (12 MO.) 08/12/2019 09:09 [facility] [place] TYPE: Emergency COMPLAINT: - VOMITING 07/30/2019 01:15 [facility] [place] TYPE: Emergency COMPLAINT: - SOB 07/26/2019 11:58 [facility] [place] TYPE: Emergency COMPLAINT: - MULTIPLE COMPLAINTS DIAGNOSES: - Fall on same level, unspecified, initial encounter - Personal history of nicotine dependence - Chronic obstructive pulmonary disease, unspecified - Heart failure, unspecified - Dorsalgia, unspecified - Unspecified fracture of first lumbar vertebra, initial encoun - Unspecified atrial fibrillation 07/23/2019 17:40 [facility] Up [facility] TYPE: Emergency COMPLAINT: - FALL DIAGNOSES: - Unspecified atrial fibrillation - Allergy status to other drugs, medicaments and biological sub - Laceration without foreign body of right forearm, initial enc - Personal history of nicotine dependence - Heart failure, unspecified - Fall on same level from slipping, tripping and stumbling with - Other snf (current) 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 - Laceration without foreign body of right forearm, initial enc 02/08/2019 20:35 [facility] Up OR TYPE: Emergency COMPLAINT: - RAPID HEART RATE DIAGNOSES: - Other snf (current) 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 - Constipation, unspecified - Palpitations - Allergy status to other drugs, medicaments and biological sub - Heart failure, unspecified - Personal history of nicotine dependence - Paroxysmal atrial fibrillation 01/16/2019 20:38 [facility] Up [facility] TYPE: Emergency COMPLAINT: - MULTIPLE COMPLAINTS 01/01/2019 11:02 [facility] Up [facility] TYPE: Emergency COMPLAINT: - FAST HEART RATE DIAGNOSES: - Allergy status to other drugs, medicaments and biological sub - Essential (primary) hypertension - 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 - Unspecified atrial fibrillation - Chronic obstructive pulmonary disease, unspecified - Heart failure, unspecified 10/19/2018 21:55 [facility] Up [facility] TYPE: Emergency COMPLAINT: - RAPID HEART RATE DIAGNOSES: - Old myocardial infarction - Tachycardia, unspecified - Personal history of nicotine dependence - Chronic atrial fibrillation - Allergy status to other drugs, medicaments and biological sub - Acquired absence of other specified parts of digestive tract - 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 - Heart failure, unspecified - Presence of coronary angioplasty implant and graft - Hypertensive heart disease with heart failure INPATIENT VISIT TRACKING (12 MO.) 08/03/2019 16:31 [facility] Up [facility] TYPE: Medical Surgical COMPLAINT: - DECONDITIONING DIAGNOSES: - Allergy status to other drugs, medicaments and biological sub - Chronic obstructive pulmonary disease, unspecified - Wedge compression fracture of first lumbar vertebra, subseque - Wedge compression fracture of first lumbar vertebra, subseque - Hyperlipidemia, unspecified - Retention of urine, unspecified - 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 - Permanent atrial fibrillation - intermodal truck driver (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 analgesic - Permanent atrial fibrillation - Respiratory failure, unspecified with hypoxia - Unsteadiness on feet - intermodal truck driver (current) use of aspirin - Gastro-esophageal reflux disease without esophagitis - Allergy status to other drugs, medicaments and biological sub - retirement (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 analgesic - retirement (current) use of aspirin - Gastro-esophageal reflux disease without esophagitis - Chronic diastolic (congestive) heart failure - Chronic diastolic (congestive) heart failure - Respiratory failure, unspecified with hypoxia - Hyperlipidemia, unspecified - 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 - Retention of urine, unspecified - Chronic obstructive pulmonary disease, unspecified 07/31/2019 13:23 [facility] Up OR TYPE: Medical Surgical COMPLAINT: - CHF,L1 COMPRESSION FRACTURE DIAGNOSES: - Adverse effect of other opioids, initial encounter - Gastro-esophageal reflux disease without esophagitis - Chronic obstructive pulmonary disease with acute lower respir - Drug induced constipation - Chronic atrial fibrillation, unspecified - Hyperlipidemia, unspecified - Wedge compression fracture of first lumbar vertebra, subseque - 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 - Acute respiratory failure with hypoxia - Pneumonia due to Streptococcus pneumoniae - intermodal truck driver (current) use of aspirin - Allergy status to other drugs, medicaments and biological sub - Personal history of nicotine dependence - Contact with and (suspected) exposure to asbestos - Acute on chronic diastolic (congestive) heart failure 01/16/2019 20:39 [facility]IR[facility] Up OR TYPE: Observation COMPLAINT: - ABD PAIN,ISCHEMIC COLITIS,VERSUS DIVERTICULITIS DIAGNOSES: - Allergy status to other drugs, medicaments and biological sub - Chronic atrial fibrillation - Unspecified abdominal pain - Old myocardial infarction - Other constipation - Presence of coronary angioplasty implant and graft - intermodal truck driver (current) use of antithrombotics/antiplatelets - Other snf (current) 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 - Gastro-esophageal reflux disease without esophagitis - Chronic obstructive pulmonary disease, unspecified - Hyperlipidemia, unspecified - Noninfective gastroenteritis and colitis, unspecified - Heart failure, unspecified - Personal history of nicotine dependence - Hypertensive heart disease with heart failure [email or web address]
[2019-08-12] MEDS ORDERED: ONDANSETRON ODT4 MG PO (10:51)
[2019-08-12] MEDS ORDERED: HYDROMORPHONE HC2 MG PO (10:51)
[2019-08-15] MEDS ORDERED: LACTULOSE20 GM/30 M PO (14:42)
== END 2019-08-12 11:08 | disposition home or self-care (01) ==
LOC: ED 09:08
DX: K29.00 Acute gastritis without bleeding (principal); J44.9 Chronic obstructive pulmonary disease, unspecified; I48.91 Unspecified atrial fibrillation; I50.9 Heart failure, unspecified; Z87.891 Personal history of nicotine dependence; Z79.899 Other long term (current) 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
CPT/HCPCS: 80053; 83690; 85025; 96361; 96374; 99284-25; J2405; J7040

== ENCOUNTER 2019-11-19 19:07 | Emergency (ER) | payer MEDICARE ==
[~2019-11-19] VITALS: Ht 175.3 cm; Wt 68.1 kg
--- OUTSIDE RECORDS SUMMARY | ~2019-11-19 | XMS | Encounter Summary ---
Demographics + + + | Address | [address] | | | [place] [address] | + + + | Home Phone | | + + + | Preferred Language | Unknown | + + + | Marital Status | | + + + | Yazidism Affiliation | Unknown | + + + | Race | Unknown | + + + | Ethnic Group | Unknown | + + + Author + + + | Author | [facility] | | | and [place] | + + + | Organization | [facility] | | | and [place] | + + + | Address | Unknown | + + + | Phone | Unavailable | + + + Support + + +---------+ + | Name | Relationship | Address | Phone | + + +---------+ + | Hermelinda Javed | ECON | Unknown | | + + +---------+ + Care Team Providers + +------+ + | Care Hearing Screen Coordinator Name | Role | Phone | + +------+ + | Herlinda Maldonado | PCP | | | PA | | | + +------+ + Reason for Visit + + + | Reason | Comments | + + + | Arm Laceration | | + + + Encounter Details +--------+ + + + + | Date | Type | Department | Care Team | Description | +--------+ + + + + | 02/17/ | Emergency | [facility] | Jamil Lara, | Skin tear of left | | 2018 | | [facility] | MD [address] | elbow without | | | | CENTER [address] | [place], [place] | complication, | | | | [place], [place] | [address] | initial encounter | | | | [address] | | (Primary Dx); Fall | | | | [phone] | | from slip, trip, or | | | | | | stumble, initial | | | | | | encounter; Contusion | | | | | | of left chest wall, | | | | | | initial encounter | +--------+ + + + + Social History + + + +--------+ + | Tobacco Use | Types | Packs/Day | Years | Date | | | | | Used | | + + + +--------+ + | Former Smoker | Cigarettes | 3 | 40 | 1950 - 1989 | + + + +--------+ + + +---+---+---+ | Smokeless Tobacco: | | | | | Never Used | | | | + +---+---+---+ + + + + + | Alcohol Use | Drinks/Week | oz/Week | Comments | + + + + + | Yes | 2-3 Cans of beer | 2.0 - 3.0 | | + + + + + + + + | Sex Assigned at | Date Recorded | | | | + + + | Not on file | | + + + documented as of this encounter Last Filed Vital Signs + + + + + | Vital Sign | Reading | Time Taken | Comments | + + + + + | Blood Pressure | 165/74 | 02/17/2018 5:57 PM | | | | | PDT | | + + + + + | Pulse | 78 | 02/17/2018 5:57 PM | | | | | PDT | | + + + + + | Temperature | 36.6 C (97.8 F) | 02/17/2018 5:57 PM | | | | | PDT | | + + + + + | Respiratory Rate | 14 | 02/17/2018 5:57 PM | | | | | PDT | | + + + + + | Oxygen Saturation | 96% | 02/17/2018 5:57 PM | | | | | PDT | | + + + + + | Inhaled Oxygen | - | - | | | Concentration | | | | + + + + + | Weight | 80.3 kg (177 lb 0.5 | 02/17/2018 5:57 PM | | | | oz) | PDT | | + + + + + | Height | 180.3 cm (5' 11") | 02/17/2018 5:57 PM | | | | | PDT | | + + + + + | Body Mass Index | 24.69 | 02/17/2018 5:57 PM | | | | | PDT | | + + + + + documented in this encounter Discharge Instructions AttachmentsThe following attachments cannot be sent through Care Everywhere.Laceration, Chi n, Suture or Tape (Guamanian)documented in this encounter Medications at Time of Discharge + + + +---------+ + + | Medication | Sig | Dispensed | Refills | Start | End Date | | | | | | Date | | + + + +---------+ + + | | 3 mLs Every 8 hours. | | 0 | 07/04/19 | | | albuterol-ipratropiu | | | | 18 | | | m (DUONEB) 2.5-0.5 | | | | | | | mg/3 mL SOLN | | | | | | + + + +---------+ + + | dilTIAZem | DilTIAZem CD 240MG | | 0 | 05/23/19 | | | (DILTIAZEM CD) 240 | Oral Capsule | | | 18 | | | MG 24 hr capsule | Extended Release 24 | | | | | | | Hour QTY: 30 Days: | | | | | | | 0 Refills: 11 | | | | | | | Written: 05/23/17 | | | | | | | Patient | | | | | | | Instructions: BID | | | | | + + + +---------+ + + | loratadine | Claritin 10MG Oral | | 0 | 08/03/19 | | | (CLARITIN) 10 mg | Tablet QTY: 0 tablet | | | 16 | | | tablet | Days: 0 Refills: 0 | | | | | | | Written: 08/03/15 | | | | | | | Patient | | | | | | | Instructions: | | | | | + + + +---------+ + + | pravastatin | Pravastatin Sodium | | 0 | 05/23/19 | | | (PRAVACHOL) 10 mg | 10MG Oral Tablet | | | 18 | | | tablet | QTY: 30 Days: 0 | | | | | | | Refills: 11 | | | | | | | Written: 05/23/17 | | | | | | | Patient | | | | | | | Instructions: 1 once | | | | | | | a day | | | | | + + + +---------+ + + | furosemide (LASIX) | Furosemide 20MG Oral | | 0 | 05/23/19 | | | 20 mg tablet | Tablet QTY: 90 | | | 18 | 9 | | | Days: 0 Refills: 3 | | | | | | | Written: 05/23/17 | | | | | | | Patient | | | | | | | Instructions: 1 once | | | | | | | a day | | | | | + + + +---------+ + + | lisinopril | Lisinopril 20MG Oral | | 0 | 05/23/19 | | | (PRINIVIL, ZESTRIL) | Tablet QTY: 90 | | | 18 | 9 | | 20 mg tablet | Days: 0 Refills: 3 | | | | | | | Written: 05/23/17 | | | | | | | Patient | | | | | | | Instructions: 1 once | | | | | | | a day | | | | | + + + +---------+ + + | omeprazole | Omeprazole 40MG Oral | | 0 | 05/23/19 | | | (PRILOSEC) 40 MG | Capsule Delayed | | | 18 | 9 | | capsule | Release QTY: 90 | | | | | | | Days: 0 Refills: 3 | | | | | | | Written: 05/23/17 | | | | | | | Patient | | | | | | | Instructions: 1 once | | | | | | | a day | | | | | + + + +---------+ + + | potassium chloride | Take 10 mEq by mouth | | 0 | 07/25/19 | | | (KLOR-CON) 10 MEQ | Daily. | | | 18 | 9 | | ER tablet | | | | | | + + + +---------+ + + documented as of this encounter ED Notes Jamil Lara MD - 02/17/2018 6:11 PM PDTFormatting of this note might be different fr om the original. [facility] Emergency Department Encounter Note [address] [place] [id number] PCP:SHAHEEN Toro ED15 CHIEF COMPLAINT: Chief Complaint Patient presents with Arm Laceration HPI William Burns is a 83 y.o. male who presents to the Emergency Department with a left el bow laceration. This is an 83-year-old male who had a mechanical fall at home in his baseme . He landed against his left elbow. This created a 6 cm skin tear. This occurred at abo ut 1400 this afternoon. He did not injure his head or strike his head in any way but did br uise his left chest wall. He declines a chest x-ray stating "I think it's just bruised" PAST MEDICAL & SURGICAL HISTORY Past Medical History: Diagnosis Date Atrial fibrillation (HCC) Backache Bronchitis Bundle branch block, right Calculus of bile duct with acute cholecystitis with obstruction Choledocholithiasis Chronic obstructive pulmonary disease (COPD) ([facility]) Crush injury lower extremities 1966 Left leg and foot Cutaneous abscess of chest wall Disease of sebaceous glands Diverticulosis Diverticulosis of colon Epidermal cyst Epigastric pain Esophageal ulcer with bleeding GERD (gastroesophageal reflux disease) Hip fracture ([facility]) 2003 Left Hyperlipidemia Inflamed seborrheic keratosis Inguinal hernia 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 Neoplasm of digestive system Neoplasm of skin Osteoarthritis, generalized 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, including shoulder ([facility]) Panic disorder without agoraphobia Raynaud's syndrome Renal cyst, right Retinal detachment Right Right bundle branch block Skin lesion: right ear 2010 Squamous cell carcinoma of skin 2010 Right hand 2009 and 2015 Unsp malignant neoplasm skin/ left upper limb, inc shoulder Upper gastrointestinal bleeding Past Surgical History: Procedure Laterality Date BACK SURGERY 1981 Lower back COLONOSCOPY 09/23/2013 [facility] ENDOSCOPY 08/10/2013 [facility] ERCP N/A 08/14/2017 Procedure: ERCP; Surgeon: Jamey Hdz MD; Location: [facility] MEDICAL PROCEDURE UNIT HIP FRACTURE SURGERY Left 2002 Pinning. Repeat in 2003 INGUINAL HERNIA REPAIR 2006 KNEE SURGERY 1968 KNEE SURGERY Right 1967 Open fracture reduction and internal fixation right knee in 1967 LAMINECTOMY Leg surgery Left 1959 Seven Reconstructive surgeries on his left leg and foot in the with metal remaining . LUMBAR VERTEBRAL FUSION OTHER SURGICAL HISTORY Endobiliary stent placed at [facility] Removal of lesion Right 2009 Right hand and right ear and right hand [address] Flowers RETINAL DETACHMENT SURGERY 2003 Five surgeries on his right eye for retinal detachment in 2003 and 2004 VASECTOMY CURRENT MEDICATIONS Previous Medications ALBUTEROL-IPRATROPIUM (DUONEB) 2.5-0.5 MG/3 ML SOLN 3 mLs Every 8 hours. DILTIAZEM (DILTIAZEM CD) 240 MG 24 HR CAPSULE DilTIAZem CD 240MG Oral Capsule Extended Release 24 Hour QTY: 30 Days: 0 Refills: 11 Written: 05/23/17 Patient Instructions: 1 once a day FUROSEMIDE (LASIX) 20 MG TABLET Furosemide 20MG Oral Tablet QTY: 90 Days: 0 Refills: 3 Written: 05/23/17 Patient Instructions: 1 once a day LISINOPRIL (PRINIVIL, ZESTRIL) 20 MG TABLET Lisinopril 20MG Oral Tablet QTY: 90 Days: 0 Refills: 3 Written: 05/23/17 Patient Instructions: 1 once a day LORATADINE (CLARITIN) 10 MG TABLET Claritin 10MG Oral Tablet QTY: 0 tablet Days: 0 Refi lls: 0 Written: 08/03/15 Patient Instructions: OMEPRAZOLE (PRILOSEC) 40 MG CAPSULE Omeprazole 40MG Oral Capsule Delayed Release QTY: 9 0 Days: 0 Refills: 3 Written: 05/23/17 Patient Instructions: 1 once a day POTASSIUM CHLORIDE (KLOR-CON) 10 MEQ ER TABLET Take 10 mEq by mouth Daily. PRAVASTATIN (PRAVACHOL) 10 MG TABLET Pravastatin Sodium 10MG Oral Tablet QTY: 30 Days: 0 Refills: 11 Written: 05/23/17 Patient Instructions: 1 once a day ALLERGIES Allergies Allergen Reactions Budesonide-Formoterol Fumarate Shortness Of Breath Reaction: "I can't breathe when I use it." Eucalyptus Oil Shortness Of Breath Other reaction(s): Asthma, Shortness of Breath Fluticasone-Salmeterol Shortness Of Breath Other reaction(s): Asthma, Shortness of Breath Diclofenac Sodium AKA "Voltaren" - I don't know Hydrochlorothiazide Rash FAMILY AND SOCIAL HISTORY Family History Problem Relation Age of Onset Cancer Mother Abdominal Aortic Aneurysm Father Coronary artery disease Sister Heart disease Brother Coronary artery disease Brother Coronary artery disease Brother Coronary artery disease Brother Colon cancer Neg Hx Social History Social History Marital status: Spouse name: N/A Number of children: N/A Years of education: N/A Social History Main Topics Smoking status: Former Smoker Packs/day: 3.00 Years: 40.00 Types: Cigarettes Start date: 1949 Quit date: 1989 Smokeless tobacco: Never Used Alcohol use 1.2 - 1.8 oz/week 2 - 3 Cans of beer per week Drug use: No Sexual activity: Not Asked Other Topics Concern None Social History Narrative None REVIEW OF SYSTEMS Review of Systems Constitutional: Negative for chills and fever. Cardiovascular: Positive for chest pain. Gastrointestinal: Negative for nausea and vomiting. As in history of present illness PHYSICAL EXAM VITAL SIGNS: (first vital signs):Temp: 36.6 C (97.8 F) Pulse: 78 Resp: 14 SpO2: 96 % BP : 165/74 Body mass index is 24.69 kg/m. Constitutional: male patient, pleasant and talkative, alert and appropriate, conversant [facility] nurse and staff. HEENT: Atraumatic, patient follows me around the room with their eyes, PERRL, Oropharynx s hows no redness, moist mucus membranes. Neck: Supple with full range of motion. No JVD, lymphadenopathy, or meningismus. Respiratory: Good air movement bilaterally. Patient's work of breathing is normal. Cardiovascular: Normal S1 S2. No rubs or murmurs Extremities: Skin tear to the left elbow Skin: Warm, Dry, No obvious rashes. Capillary refill is brisk <3 seconds and shows good p erfusion on areas of visible skin. Neurologic: Alert & oriented. Cranial nerves II-XII intact. No focal deficits. Gait is n ormal. Speech is normal. Psychiatric: Normal mood, affect and judgement. No evidence of suicidal or homicidal idea tion at this time. LABS Results for orders placed or performed during the hospital encounter of 08/14/17 CBC no Differential Result Value Ref Range WBC 7.6 4.0 - 11.0 K/uL RBC 4.84 4.30 - 5.70 M/uL Hgb 14.3 13.5 - 18.0 g/dL Hct 44.0 40.0 - 51.0 % MCV 91.0 83.0 - 101.0 fL MCH 29.6 28.0 - 35.0 pg MCHC 32.5 32.0 - 36.0 g/dL RDW-CV 14.4 <15.0 % Platelet Count 198 140 - 440 K/uL MPV 9.5 fL Comprehensive Metabolic Panel Result Value Ref Range NA 141 136 - 149 mmol/L K 4.3 3.5 - 5.1 mmol/L CL 102 98 - 109 mmol/L CO2 30 24 - 31 mmol/L ANION GAP 9 3 - 16 mmol/L GLUCOSE 108 70 - 109 mg/dL BUN 13 7 - 18 mg/dL Creatinine, Serum/Plasma 0.85 0.60 - 1.30 mg/dL eGFR if not >60 >=60 mL/min/1.73m2 CALCIUM 9.2 8.3 - 10.5 mg/dL ALBUMIN 4.0 3.2 - 5.0 g/dL Bilirubin Total 0.8 0.1 - 1.5 mg/dL Total protein 6.6 6.0 - 7.8 g/dL AST 18 10 - 42 U/L ALT 15 6 - 45 U/L ALK PHOS 65 40 - 110 U/L GLOBULIN 2.6 2.1 - 3.8 g/dL Albumin/Globulin ratio 1.5 0.8 - 2.0 BUN/CREA 15.3 Protime INR Result Value Ref Range Protime 12.5 11.3 - 13.9 seconds INR 0.94 0.90 - 1.10 IMAGING STUDIES Recent imaging: No results found for this or any previous visit (from the past 360 hour(s)). ED COURSE & MEDICAL DECISION MAKING Pertinent Labs & Imaging studies were reviewed along with EMS notes and [facility] record s if applicable. Medication and Allergy lists reviewed in [facility]. Nurses note and old record s were reviewed if available within [facility] ER course 18:11 - Patient care initiated. After introducing myself to the patient, I performed a car eful history and physical examination. Patient with a skin tear and then also chest injury. The patient will be given a tetanus b ooster and discharged home Last Set of Vital Signs: Temp: 36.6 C (97.8 F) Pulse: 78 Resp: 14 SpO2: 96 % BP: 165/74 FINAL IMPRESSION 1. Skin tear of left elbow without complication, initial encounter 2. Fall from slip, trip, or stumble, initial encounter 3. Contusion of left chest wall, initial encounter Disposition: Discharge home Condition: Stable Follow-up Information SHAHEEN Toro. Specialty: Physician Asst - Certified Why: If symptoms worsen Contact information: [address] [place] [address] New Prescriptions No medications on file Discontinued Medications No medications on file Discharge References/Attachments Laceration, Chin, Suture or Tape (Guamanian) Portions of this chart may have been created with [email or web address] voice recognition software. Occasi onal wrong-word or sound-alike substitutions may have occurred due to the inherent lopez itations of voice recognition software. Please read the chart carefully and recognize, using context, where these substitutions have occurred. Jamil Lara MD 02/17/18 1831 cNeestephania, Brittney Hernández RN - 02/17/2018 5:57 PM PDTTripped and fell in his basement, skin tear to LT elbow. Denies head injury or LOC. C/o some pain to LT ribs. States he needs Tetanus immunization. Yossi rutherford signed by Brittney Mendoza RN at 02/17/2018 5:57 PM PDTdocumented in this encounte r Plan of Treatment Not on filedocumented as of this encounter Visit Diagnoses + + | Diagnosis | + + | Skin tear of left elbow without complication, initial encounter - Primary | + + | Fall from slip, trip, or stumble, initial encounter | + + | Contusion of left chest wall, initial encounter | + + documented in this encounter Administered Medications + +--------+ +---------+------+ + | Medication Order | MAR | Action | Dose | Rate | Site | | | Action | Date | | | | + +--------+ +---------+------+ + | [id number] | Given | 02/18/20 | 0.5 mLs | | Deltoid- | | pertussis (ADACEL, Tdap) vaccine | | 18 6:33 | | | Left | | injection 0.5 mL 0.5 mL, | | PM PDT | | | | | Intramuscular, ONCE, 02/17/18 | | | | | | | at 1815, For 1 dose, Keep in | | | | | | | refrigerator. Provide patient | | | | | | | education information., | | | | | | + +--------+ +---------+------+ + +---+---+ | | | +---+---+ documented in this encounter
--- OUTSIDE RECORDS SUMMARY | ~2019-11-19 | XMS | Encounter Summary ---
Demographics + + + | Address | [address] | | | [place] [address] | + + + | Home Phone | | + + + | Preferred Language | Unknown | + + + | Marital Status | | + + + | Rastafarian Affiliation | Unknown | + + + | Race | Unknown | + + + | Ethnic Group | Unknown | + + + Author + + + | Author | [facility] | | | and [place] | + + + | Organization | [facility] | | | [...] Team Providers + +------+ + | [facility] Name | Role | Phone | + +------+ + | Herlinda Maldonado | PCP | | | PA | | | + +------+ + Encounter Details +--------+ + + + + | Date | Type | Department | Care Team | Description | +--------+ + + + + | 01/09/ | Abstract | [facility] | Maximilian Abreu | | | 2019 | | CARDIOLOGY [address] | MD [address] | | | | | [place], | [address] [place] | | | | | [place] [address] | [place] [address] | | | | | [phone] | [phone] | | | | | | | [...] | + +--------+ + + + | EXTERNAL LAB: BUN | Routin | 01/01/2019 | | Results for this | | | e | | | procedure are in the | | | | | | results section. | + +--------+ + + + | EXTERNAL LAB: | Routin | 01/01/2019 | | Results for this | | GLUCOSE | e | | | procedure are in the | | | | | | results section. | + +--------+ + + + | EXTERNAL LAB: | Routin | 01/01/2019 | | Results for this | | TROPONIN T | e | | | procedure are in the | | | | | | results section. | + +--------+ + + + | EXTERNAL LAB: ALT | Routin | 01/01/2019 | | Results for this | | | e | | | procedure are in the | | | | | | results section. | + +--------+ + + + | EXTERNAL LAB: AST | Routin | 01/01/2019 | | Results for this | | | e | | | procedure are in the | | | | | | results section. | + +--------+ + + + | EXTERNAL LAB: | Routin | 01/01/2019 | | Results for this | | ALKALINE PHOSPHATASE | e | | | procedure are in the | | | | | | results section. | + +--------+ + + + | EXTERNAL LAB: | Routin | 01/01/2019 | | Results for this | | BILIRUBIN, TOTAL | e | | | procedure are in the | | | | | | results section. | + +--------+ + + + | EXTERNAL LAB: | Routin | 01/01/2019 | | Results for this | | ALBUMIN | e | | | procedure are in the | | | | | | results section. | + +--------+ + + + | EXTERNAL LAB: | Routin | 01/01/2019 | | Results for this | | PROTEIN, TOTAL | e | | | procedure are in the | | | | | | results section. | + +--------+ + + + | EXTERNAL LAB: | Routin | 01/01/2019 | | Results for this | | MAGNESIUM | e | | | procedure are in the | | | | | | results section. | + +--------+ + + + | EXTERNAL LAB: | Routin | 01/01/2019 | | Results for this | | CALCIUM | e | | | procedure are in the | | | | | | results section. | + +--------+ + + + | EXTERNAL LAB: CARBON | Routin | 01/01/2019 | | Results for this | | DIOXIDE | e | | | procedure are in the | | | | | | results section. | + +--------+ + + + | EXTERNAL LAB: | Routin | 01/01/2019 | | Results for this | | CHLORIDE | e | | | procedure are in the | | | | | | results section. | + +--------+ + + + | EXTERNAL LAB: | Routin | 01/01/2019 | | Results for this | | POTASSIUM | e | | | procedure are in the | | | | | | results section. | + +--------+ + + + | EXTERNAL LAB: SODIUM | Routin | 01/01/2019 | | Results for this | | | e | | | procedure are in the | | | | | | results section. | + +--------+ + + + | EXTERNAL LAB: CBC | Routin | 01/01/2019 | | Results for this | | | e | | | procedure are in the | | | | | | results section. | + +--------+ + + + | EXTERNAL LAB: EGFR | Routin | 01/01/2019 | | Results for this | | | e | | | procedure are in the | | | | | | results section. | + +--------+ + + + | EXTERNAL LAB: | Routin | 01/01/2019 | | Results for this | | CREATININE | e | | | procedure are in the | | | | | | results section. | + +--------+ + + + | CBC WITH | Routin | 01/01/2019 | | Results for this | | DIFFERENTIAL | e | | | procedure are in the | | | | | | results section. | + +--------+ + + + | COMPREHENSIVE | Routin | 01/01/2019 | | Results for this | | METABOLIC PANEL | e | | | procedure are in the | | | | | | results section. | + +--------+ + + + documented in this encounter Results CBC with Differential (01/01/2019) + +-------+ + + + | Component | Value | Ref Range | Performed | Pathologist | | | | | At | Signature | + +-------+ + + + | MCH | 28.0 | 26.0 - 33.0 pg | | | + +-------+ + + + | MCHC | 32.0 | 31.0 - 37.0 | | | | | | g/dL | | | + +-------+ + + + | % Basophils | 0.6 | 1.0 % | | | + +-------+ + + + + + | Specimen | + + | Blood | + + Comprehensive Metabolic Panel (01/01/2019) + +-------+ + + + | Component | Value | Ref Range | Performed | Pathologist | | | | | At | Signature | + +-------+ + + + | Anion Gap | 13 | mmol/L | | | + +-------+ + + + | Bun/Creatin | 14.9 | | | | | ine | | | | | + +-------+ + + + | Globulin | 2.9 | | | | + +-------+ + + + | Albumin/Nohemi | 1.3 | | | | | bulin Ratio | | | | | + +-------+ + + + + + | Specimen | + + | Blood | + + External Lab: BUN (01/01/2019) + +-------+ + + + | Component | Value | Ref Range | Performed | Pathologist | | | | | At | Signature | + +-------+ + + + | BUN, | 13 | | | | | External | | | | | + +-------+ + + + External Lab: Glucose (01/01/2019) + +---------+ + + + | Component | Value | Ref Range | Performed | Pathologist | | | | | At | Signature | + +---------+ + + + | Glucose, | 107 (A) | 100 | | | | External | | | | | + +---------+ + + + External Lab: Troponin T (01/01/2019) + +--------+ + + + | Component | Value | Ref Range | Performed | Pathologist | | | | | At | Signature | + +--------+ + + + | Troponin T, | <0.010 | | | | | External | | | | | + +--------+ + + + External Lab: ALT (01/01/2019) + +-------+ + + + | Component | Value | Ref Range | Performed | Pathologist | | | | | At | Signature | + +-------+ + + + | ALT, | 7 | | | | | External | | | | | + +-------+ + + + External Lab: AST (01/01/2019) + +--------+ + + + | Component | Value | Ref Range | Performed | Pathologist | | | | | At | Signature | + +--------+ + + + | AST, | 10 (A) | 13 | | | | External | | | | | + +--------+ + + + External Lab: Alkaline Phosphatase (01/01/2019) + +-------+ + + + | Component | Value | Ref Range | Performed | Pathologist | | | | | At | Signature | + +-------+ + + + | ALP, | 89 | | | | | External | | | | | + +-------+ + + + External Lab: Bilirubin, Total (01/01/2019) + +-------+ + + + | Component | Value | Ref Range | Performed | Pathologist | | | | | At | Signature | + +-------+ + + + | Bilirubin, | 0.6 | | | | | Total, | | | | | | External | | | | | + +-------+ + + + External Lab: Albumin (01/01/2019) + +-------+ + + + | Component | Value | Ref Range | Performed | Pathologist | | | | | At | Signature | + +-------+ + + + | Albumin, | 3.8 | | | | | External | | | | | + +-------+ + + + External Lab: Protein, Total (01/01/2019) + +-------+ + + + | Component | Value | Ref Range | Performed | Pathologist | | | | | At | Signature | + +-------+ + + + | Protein, | 6.7 | | | | | Total, | | | | | | External | | | | | + +-------+ + + + External Lab: Magnesium (01/01/2019) + +-------+ + + + | Component | Value | Ref Range | Performed | Pathologist | | | | | At | Signature | + +-------+ + + + | Magnesium, | 1.7 | | | | | External | | | | | + +-------+ + + + External Lab: Calcium (01/01/2019) + +-------+ + + + | Component | Value | Ref Range | Performed | Pathologist | | | | | At | Signature | + +-------+ + + + | Calcium, | 9.0 | | | | | External | | | | | + +-------+ + + + External Lab: Carbon Dioxide (01/01/2019) + +-------+ + + + | Component | Value | Ref Range | Performed | Pathologist | | | | | At | Signature | + +-------+ + + + | Carbon | 28 | | | | | Dioxide, | | | | | | External | | | | | + +-------+ + + + External Lab: Chloride (01/01/2019) + +-------+ + + + | Component | Value | Ref Range | Performed | Pathologist | | | | | At | Signature | + +-------+ + + + | Chloride, | 97 | | | | | External | | | | | + +-------+ + + + External Lab: Potassium (01/01/2019) + +-------+ + + + | Component | Value | Ref Range | Performed | Pathologist | | | | | At | Signature | + +-------+ + + + | Potassium, | 4.4 | | | | | External | | | | | + +-------+ + + + External Lab: Sodium (01/01/2019) + +-------+ + + + | Component | Value | Ref Range | Performed | Pathologist | | | | | At | Signature | + +-------+ + + + | Sodium, | 134 | | | | | External | | | | | + +-------+ + + + External Lab: CBC (01/01/2019) + + + + + + | Component | Value | Ref Range | Performed | Pathologist | | | | | At | Signature | + + + + + + | WBC, | 10.3 | | | | | External | | | | | + + + + + + | HGB, | 11.8 (A) | 13.5 | | | | External | | | | | + + + + + + | HCT, | 36.4 (A) | 41 | | | | External | | | | | + + + + + + | PLT, | 423 | | | | | External | | | | | + + + + + + | Neutrophils | 76.7 | | | | | %, | | | | | | External | | | | | + + + + + + | Lymphocytes | 10.4 (A) | 24 | | | | %, | | | | | | External | | | | | + + + + + + | Eosinophils | 0.5 | | | | | %, | | | | | | External | | | | | + + + + + + | RBC, | 4.20 (A) | 4.3 | | | | External | | | | | + + + + + + | MCV, | 87 | | | | | External | | | | | + + + + + + | RDW, | 14.8 | | | | | External | | | | | + + + + + + External Lab: eGFR (01/01/2019) + +-------+ + + + | Component | Value | Ref Range | Performed | Pathologist | | | | | At | Signature | + +-------+ + + + | eGFR, | 84 | | | | | External | | | | | + +-------+ + + + + + | Specimen | + + | Blood | + + External Lab: Creatinine (01/01/2019) + +-------+ + + + | Component | Value | Ref Range | Performed | Pathologist | | | | | At | Signature | + +-------+ + + + | Creatinine, | 0.87 | | | | | External | | | | | + +-------+ + + + + + | Specimen | + + | Blood | + + documented in this encounter Visit Diagnoses Not on filedocumented in this encounter"
--- OUTSIDE RECORDS SUMMARY | ~2019-11-19 | XMS | Encounter Summary ---
Demographics + + + | Address | [address] | | | [place] [address] | + + + | Home Phone [...] + + + | Author | [facility] | + + + | Organization | [facility] | + + + | Address | Unknown | + + + | Phone | Unavailable | + + + Support + + +---------+ + | Name | Relationship | Address | Phone | + + +---------+ + | None Per Pt | ECON | Unknown | Unavailable | + + +---------+ + Care Team Providers + +------+ + | Care Equipment Validation Engineer Name | Role | Phone | + +------+ + | Herlinda Maldonado | PCP | | + +------+ + Reason for Visit AUTH/CERT +--------+--------+ + + + + | Status | Reason | Specialty | Diagnoses / | Referred By | Referred To | | | | | Procedures | Contact | Contact | +--------+--------+ + + + + | | | | | | | +--------+--------+ + + + + Encounter Details +--------+---------+ + + + | Date | Type | Department | Care Team | Description | +--------+---------+ + + + | 06/03/ | Surgery | 6A Intra Op [id number] | Nguyễn Shepard | Percutaneous | | 2019 | | [address] FERNANDO Figueroa | MD [place] [address] | fixation of | | | | Rd [facility] | [address] | acetabular | | | | Hospital Admitting | [place], [place] | lesly-prosthetic | | | | Desk Located on the | [id number] | fracture | | | | 9th floor | [phone] | | | | | [place], [place] | | | | | | [address] | | | +--------+---------+ + + + Social History + +-------+ [...] + + + | Blood Pressure | 158/69 | 06/06/2018 7:50 AM | | | | | PST | | + + + + + | Pulse | 72 | 06/06/2018 9:14 AM | | | | | PST | | + + + + + | Temperature | 36.4 C (97.5 F) | 06/06/2018 7:50 AM | | | | | PST | | + + + + + | Respiratory Rate | 16 | 06/06/2018 7:50 AM | | | | | PST | | + + + + + | Oxygen Saturation | 92% | 06/06/2018 9:25 AM | | | | | PST | | + + + + + | Inhaled Oxygen | - | - | | | Concentration | | | | + + + + + | Weight | 84 kg (185 lb 3 oz) | 06/06/2018 3:29 AM | | | | | PST | | + + + + + | Height | 170.2 cm (5' 7") | 06/02/2018 4:00 PM | | | | | PST | | + + + + + | Body Mass Index | 29 | 06/02/2018 4:00 PM | | | [...] + + documented as of this encounter Discharge Summaries Joanne Heaton AGACNP - 06/06/2018 4:28 PM PSTFormatting of this note might be differe nt from the original. [facility] [place] [facility] DEPARTMENT OF ORTHOPAEDICS & REHABILITATION INPATIENT HOSPITAL DISCHARGE SUMMARY & INTERDISCIPLINARY INSTRUCTIONS Patient: William Burns CSN: [id number] Admission Date: 05/31/2018 Discharge Date: 06/06/2018 Attending Physician: Nguyễn Shepard MD PCP: SHAHEEN Love Service: [facility] Diagnoses Principal Final Diagnosis: Left anterior column posterior hemitransverse acetabular fracture (involving 2 columns). Additional Diagnoses: COPD (chronic obstructive pulmonary disease) ([facility]) Essential hypertension Physical deconditioning Procedures 06/03/2018 Closed reduction and percutaneous fixation of the left acetabulum. Brief Hospital Course William Burns is a 83 y.o. male admitted for the procedure(s) described above. The inpatien t stay related to this procedure(s) was complicated by post operative delirium and ilius for which Geriatric Medicine and the Clinical Hospitalist teams were consulted, both conditions gradually resolved without intervention. During his perioperative course he was followed c losely by the attending providers, resident providers, and medical/nursing staff. Post oper atively, the patient was admitted to the hospital for convalescent care. Pain control was m anaged with iv/po pain medication as needed. The Patient was given 24hrs of IV antibiotics post-operatively. For DVT prophylaxis the patient was started on Lovenox and SCDs were also used. The patient made appropriate gains toward activity and functional goals while an in patient, working daily with physical therapy. While on the hospital floor he initially deve loped symptoms consistent with a postoperative ileus that resolved overtime and he tolerate d oral intake sufficient to maintain nutrition and hydration. The surgical wound remained cl ray, dry, and intact without signs concerning for infection. The patient was felt appropria te for discharge to SNF, and the patient and/or family members agree with this course of act ion. Diet Regular Regular diet- There are no restrictions to your diet. You may eat or drink whatever you pr efer, though healthy food choices are recommended. Wound Care -Ok for nursing facility staff to remove sutures or harjit 2-3 weeks post operatively (05/22 8-06/24) If you have sutures or harjit, do not get your wound wet for 3-5 days after your operation . Sponge bath or cover the incision with a waterproof bandage. Keep your incision covered wi th a dressing until there is no discharge on bandage.- Once wound is closed (no drainage), y ou may shower. Let water run over wound. Pat dry. Do not scrub or soak wound in water.- Avoi d using lotions, powders, oils, or ointments on your incision.- DO NOT let anyone start you on antibiotics if they suspect your wound is infected. Call [facility] first at . Activity NON Weight bearing on left leg. For approximately 4 weeks to be determined at postoperative clinic visit. Condition on Discharge Stable Follow-Up Appointments ORTHOPEDICS OUTPATIENT CLINIC: Future Appointments Provider Department Dept Phone Center 07/02/2018 1:40 PM Nguyễn Chance Working Orthopaedics at [facility] [phone] Orthopedics PCP: As needed for any medical concerns not related to your surgery. Medication List START taking these medications acetaminophen 500 mg Tab Commonly known as: TYLENOL Take 2 tablets by mouth three times daily. albuterol 0.083% 2.5 mg /3 mL (0.083 %) Nebu Commonly known as: PROVENTIL,VENTOLIN Respiratory therapy or nurse to administer per protocol Indications: Chronic Obstructive Pu lmonary Disease bisacodyl EC 5 mg Tbec Commonly known as: DULCOLAX Take 2 tablets by mouth once daily. calcium carbonate chewable 200 mg elemental (500 mg total salt) Chew Commonly known as: TUMS Chew and swallow 2 tablets every two hours as needed. enoxaparin 40 mg/0.4 mL Syrg Commonly known as: LOVENOX Inject 0.4 mL under the skin (SUBC) once daily in the evening. Indications: Deep Vein Throm bosis Prevention guaiFENesin LA 600 mg Ta12 Commonly known as: MUCINEX Take 1 tablet by mouth two times daily. melatonin 3 mg Tab Take 1 tablet by mouth once daily in the evening. oxyCODONE (immediate release) 5 mg Tab Commonly known as: ROXICODONE Take 1-2 tablets by mouth every four hours as needed for moderate pain. polyethylene glycol 17 gram Pwpk Commonly known as: MIRALAX Mix 1 packet and take orally once daily. senna-docusate 8.6-50 mg Tab Commonly known as: SENOKOT S Take 2 tablets by mouth two times daily. CONTINUE taking these medications dilTIAZem CD 24 hour release 240 mg Cp24 Commonly known as: CARDIZEM CD Take 240 mg by mouth once daily. furosemide 20 mg Tab Commonly known as: LASIX Take 20 mg by mouth once daily. lisinopril 20 mg Tab Commonly known as: PRINIVIL Take 20 mg by mouth once daily. omeprazole 40 mg Cpdr Commonly known as: PRILOSEC Take 40 mg by mouth once daily in the morning. pravastatin 10 mg Tab Commonly known as: PRAVACHOL Take 10 mg by mouth once daily at bedtime. [facility] Pain Policy At the 6-week post-operative eddy, pain management will be reassessed and pain management r ecommendations may be modified by the discretion of the Provider. At the 3-month post-operative eddy, the patient will be referred to pain management for robert oing pain of poly-trauma, referred to PCP, or transitioned to Tylenol. All refills must be requested through a pharmacy. The pharmacy may then either call the o ffice with a request or fax the request to clinic. Patients must give the Outpatient Clinic a minimum of 72 hours to refill or deny narcotic p rescription from the time that they receive request from pharmacy. Requests received after 3pm will not be processed until the following business day. Prescriptions will not be available through our office after-hours, weekends, and holidays. NO EXCEPTIONS. Deep Vein Thrombosis (Leg Blood Clot) Prevention DVT prophylaxis: You are at increased risk of forming a blood clot following your surgeryt. - We have recommended that you take Lovenox for 6 weeks following your surgery to decrease this risk. - See discharge prescriptions for administration instructions. - Call Orthopedic Clinic at [phone] if any persistent, localized swelling that does no t improve with time or elevation or if you have any persistent calf pain, shortness of breat h or chest pain. Contact Your Physician When to Call: 1. Difficulty breathing, chest pain or unusual shortness of breath; 2. Excessive bleeding, drainage, redness, swelling at the operative site (if the wound appe ars to be worse instead of better each day); 3. Fevers, chills, increased pain that is not relieved by pain medications; 4. Persistent nausea or vomiting; 5. Other specific concerns; Please call: - during business hours (8:00am - 4:30pm); - if after hours and ask for the orthopaedic surgery resident contact manager. Additional Post-Op Instructions / What to Expect CONSTIPATION - To prevent constipation you have been advised to purchase over the counter m edications that will help you have a bowel movement. These medications include senna and constance alax. Take these medications together until you have a bowel movement. Once you reach your g oal, you can reduce or stop taking one or both medications. If you have loose or excessive s tools stop taking the medication. Also keep in mind that eating a well balanced diet with pl enty of fruits and vegetables; proper hydration; and walking can also help encourage bowel m ovements. -Apply ice over the surgical site for 20 minutes at a time as needed for pain. -Avoid alcohol and smoking during the healing process. -You may experience numbness that is usually temporary. -There will be bruising and swelling that should improve in the first 2 weeks. -To reduce likelihood of falling at home, remove throw rugs, loose wires or other objects f rom floor and leave some lights on at night. - Elevate your extremity whenever possible to improve pain and swelling. Pain Management Opiate medications. Per policy, you will have only been written for 7 days of opiates upon discharge. It is best for your health to taper these medications gradually over the next 7 days. We recommend extend the time interval between the doses to taper. The alternative w ould be to maintain the same time interval, but decrease the dose. Example Taper: DOSE every 4 hours at time of discharge Day 1: DOSE every 4 hr Days 2: DOSE every 5 hours Days 3 - 4: DOSE every 6 hours Day 4 - 5: DOSE every 8 hours Day 6: DOSE every 12 hours Day 7: infrequent dose, only as needed, no more than once a day or with PT Over the Counter Medications: You are encouraged to use acetaminophen (aka Tylenol) as long as you have no history of seema er issues. The maximum daily dose of acetaminophen is 4000mg a day. Please follow the dire ctions on the bottle closely. One commonly used regimen while you are in the hospital is 1, 000mg three times daily, or 650mg four times daily. Please stop using immediately is you ar e having right sided abdominal pain, appear yellow and seek medical attention immediately. - You are advised to not drive, operate heavy equipment, or consume alcohol while on prescr iption narcotic pain medication. - Take a stool softener while taking narcotic pain medication in order to prevent constipat ion. - If you are running out of pain medication and feel that you will need more, call during business hours in order to get a new prescription. Please allow 48 hours for ref ills to be processed. - Schedule II narcotics can NOT be called in to a pharmacy. Please arrange for someone to p ick up your prescription or allow additional time for our clinic to mail you requested refil l. - On-call (after hours) MDs are not permitted to prescribe narcotic pain medications. - Prescriptions will not be available through our office on weekends or holidays. - Don't take Non-steroidal anti-inflammatory drugs (for example: Ibuprofen/Advil/Aleve) unt il approved by your orthopedic provider. Other Discharge Orders & Instructions Certification of Medical Necessity for Ongoing Care in a SNF "I certify that post-hospital inpatient long term facility care is medically necessar y on a continuing basis for treatment of the same condition for which inpatient acute hospit al care was received." 1. JOSSELINE () OFFICER TO FOLLOW 2. PPD PER FACILITY PROTOCOL upon arrival 3. PHYSICAL THERAPY evaluate and treat twice daily 4. OCCUPATIONAL THERAPY evaluate and treat 5. SPEECH THERAPY evaluate and treat as appropriate. 6. VITAL SIGNS per protocol. 7. O2 to keep O2sats =>89-94% Vital Signs on Discharge: Ht 1.702 m (5' 7"), Wt 84 kg (185 lb 3 oz), BP 158/69, Pulse 72, Temperature 36.4 C (97.5 F), RR 16, SpO2 92%, BMI 29 kg/(m^2). Facility age limit for g rowth percentiles is 18 years. Condition on Discharge: Improved Discharging Patient To: Long Term Facility Date and Time of Discharge Summary Completion: 06/07/2018, 2:45 PM Discharging Provider: ELISE Mckeon Discharging Attending: Nguyễn Shepard MD Thank you for the opportunity to take care of William Burns during this inpatient stay, it has been our pleasure. ELISE Mckeon [facility] Daily Deals for [facility] Department of Orthopaedics & Rehabilitation [address] [facility] Mail Code: OP31 Dileep CHAPPELL [id number] documented in t his encounter Medications at Time of Discharge + + + +---------+ + + | Medication | Sig | Dispensed | Refills | Start | End Date | | | | | | Date | | + + + +---------+ + + | acetaminophen 500 | Take 2 tablets by | | 0 | 06/06/19 | | | mg oral tablet | mouth three times | | | 19 | | | | daily. | | | | | + + + +---------+ + + | calcium carbonate | Chew and swallow 2 | | 0 | 06/06/19 | | | chewable 200 mg | tablets every two | | | 19 | | | elemental (500 mg | hours as needed. | | | | | | total salt) oral | | | | | | | tablet,chewable | | | | | | + + + +---------+ + + | dilTIAZem CD 24 | Take 240 mg by mouth | | 0 | | | | hour release 240 mg | once daily. | | | | | | oral | | | | | | | capsule,extended | | | | | | | release 24hr | | | | | | + + + +---------+ + + | furosemide 20 mg | Take 20 mg by mouth | | 0 | 05/23/19 | | | oral tablet | once daily. | | | 18 | | + + + +---------+ + + | guaiFENesin LA | Take 1 tablet by | | 0 | 06/06/19 | | | (GUAIFENESIN LA) 600 | mouth two times | | | 19 | | | mg oral tablet | daily. | | | | | | extended release | | | | | | | 12hr | | | | | | + + + +---------+ + + | lisinopril 20 mg | Take 20 mg by mouth | | 0 | 05/23/19 | | | oral tablet | once daily. | | | 18 | | + + + +---------+ + + | omeprazole 40 mg | Take 40 mg by mouth | | 0 | 05/23/19 | | | oral capsule,delayed | once daily in the | | | 18 | | | release(DR/EC) | evening. | | | | | + + + +---------+ + + | oxyCODONE | Take 1-2 tablets by | 60 | 0 | 06/06/19 | | | (immediate release) | mouth every four | tablet | | 19 | | | 5 mg oral tablet | hours as needed for | | | | | | | moderate pain. | | | | | + + + +---------+ + + | pravastatin 10 mg | Take 10 mg by mouth | | 0 | 05/16/20 | | | oral tablet | once daily at | | | 17 | | | | bedtime. | | | | | + + + +---------+ + + | enoxaparin 40 | Inject 0.4 mL under | 12 mL | 1 | 06/06/19 | | | mg/0.4 mL | the skin (SUBC) once | | | 19 | 9 | | subcutaneous | daily in the | | | | | | syringeIndications: | evening. | | | | | | deep vein thrombosis | Indications: Deep | | | | | | prevention | Vein Thrombosis | | | | | | | Prevention | | | | | + + + +---------+ + + documented as of this encounter Progress Notes Kg Sanchez MD - 06/06/2018 11:18 AM PST Internal Medicine Clinical Hospitalist Service Progress Note 24 Hour Events: No acute Current Symptoms: Continues to deny SOB despite slight O2 requirement. Tolerating oral diet. No recurrence in abdominal pain, nausea or vomiting. No F/C. Glad to be mobilizing more. Pain controlled. MAR: Reviewed, please reference for full med list Physical Examination: Last 24 hour min/max Temp: 36.4 C (97.5 F) Temp Min: 36.2 C (97.2 F) Max: 36.8 C (98.2 F) Pulse: 72 Pulse Min: 58 Max: 73 Resp: 16 Resp Min: 16 Max: 16 BP: 158/69 BP Min: 148/72 Max: 184/81 SpO2: 92 % SpO2 Min: 84 % Max: 96 % Body mass index is 29 kg/m. I/O Intake/Output 06/04 07 - / 0700 06/05 0706/06 0700 P.O. 320 700 325 I.V. 30 5 10 Total Intake 350 705 335 Urine (mL/kg/hr) 1625 (0.9) 1675 (0.8) 350 (1) Total Output(mL/kg) 1625 (20.5) 1675 (19.9) 350 (4.2) Net -1275 -970 -15 Urine 1 x Stool 2 x Emesis 2 x GEN: no acute distress, lying in bed with HOB elevated, conversant HEENT: PER, no scleral icterus, NC O2 in place Mouth: moist mucous membranes NECK: normal appearing JVP HEART: RRR with no murmur, rubs or gallops LUNGS: somewhat poor air entry, slight bibasilar rales that seem to improve with deeper ins piration ABD: Soft, NT, ND, mildly hypoactive BS EXT: Trace LE edema NEURO/PSYCH: alert and orientated, appropriate affect Labs: Reviewed, notable for normal BMP, CBC with Hgb 11.7, PLT 186 Imaging Interpretation: None today. Assessment and Plan William Burns is a 83-year-old man with COPD and HTN who presented to an OSH after GLF, found to have left pelvic fracture, transferred to [facility] service for surg ical management. [facility] initially consulted for pre-operative evaluation. Nausea/Vomiting Presumptive Post-OP Ileus Patient experiencing gastrointestinal upset post surgery. Suspect a large part of this was related to anesthesia, possible contribution of opioids. Suspect the dark and partially coff ee ground emesis related to mucosal irritation from known GERD. Has not shown evidence of ac tive bleed. Symptoms now resolved - Continue regular diet - Continue bowel reg and mobilize as tolerated - Dark brown emesis 06/04 not felt to be due to active bleed and therefore appropriate for c ontinued ppx lovenox (duration per ortho) # COPD Has COPD at baseline after prolonged smoking history (although not clear he has ever had PF Ts which is gold standard for diagnosis). Not on supplemental oxygen at home or inhalers, but has a nebulizer device which he says he uses sparingly. On arrival to [facility] he was on 4 L NC and has ranged from 88-94% by pulse ox. As the severity of his COPD is unclear, bari r to err on side of caution and keep his O2 sat between 89-94%. The O2 sat in the 70s prev iously is likely due to oversedation from opioids (daughter concerned about oversedation wit h VBG noting elevated pCO2 from baseline). Given lasix 20 mg I vx1 with improvement in JVP (suspect related to elevated RVSP from COPD as his CXR does not show any pulmonary edema). Suspect much of his O2 requirement at this point from baseline COPD with atelectasis from re cent immobility. --Supplemental oxygen prn to keep O2 sat between 89-94% --Would resume usual home bronchodilators at discharge --Suspect O2 requirement will resolve as patient mobilizes more --Reasonable to resume home furosemide to avoid fluid re-accumulation although appears larg yarely euvolemic now --Pain control: -Tylenol 1000 mg po tid -oxycodone 5-10 mg po q4h prn moderate pain -Dilaudid 0.2-0.4 mg iv q4h prn severe pain -Agree with bowel regimen (last BM 4 days ago) -Diazepam iv discontinued # SVT On Diltiazem 240 mg po daily s outpatient, held on admission. Episode of supraventricular tachycardia morning of 06/02, with patient experiencing palpitations (no chest pain or dyspne a), HR reportedly 160-170s at the time but then dropped to 60-70s without any medications. ECG does not show atrial fibrillation, but does show PACs with telemetry noting episodes of either PACs v atrial fibrillation v artifact --OK to D/C Telemetry --Continue home diltiazem 240mg # HTN On lisinopril and lasix as outpatient --Resume both lisinopril and furosemide HLD Continue home pravastatin Thank you for the opportunity to contribute to this patient's care. The above recommendat ions were communicated to the primary team. We will sign off. Patient expected to discharge later today to SNF. Teresa Sanchez MD Attending Physician Clinical Hospitalist Services [facility] Pager [phone] Please call or page me with any questions or concerns. Doe Newman MD - 06/06/2018 9:11 AM PST Orthopaedic Surgery Progress Note Patient: /Age: MRN: CSN: Date: Admission Date: Hospital Day: Orthopaedic Attending: William Burns 1935 83 y.o. [id number] 06/06/2018 05/31/2018 6 Nguyễn Shepard MD Diagnosis: 1. Left anterior column posterior hemitransverse acetabular fracture (involving 2 columns). Procedure(s) and Date(s): 06/03/18: 1. Closed reduction, percutaneous fixation left acetabulum Assessment & Plan: William Burns is a 83 y.o.M with the diagnoses/procedures listed above. Plan: -Pain control -PT/OT -NWB LLE x4 weeks post-op -Advance diet as tolerated -VTE ppx - Lovenox x6 weeks -F/u 4 weeks in clinic - 5 view pelvis at that time (AP, inlet, outlet, Judet x2) -Barriers to DC: Clear PT, pain control, medically stable Care Protocol Items: 1. Immobility due to illness 1. Weight bearing: non-weight bearing, left lower extremity 2. ROM: as tolerated, motion encouraged 3. PT/OT: eval and treat 2. VTE prophylaxis: SCDs. Lovenox 40mg x 6 weeks 3. Antibiotics: ceFAZolin, for 24 hours perioperatively, complete 4. Pain Control: po and oral 5. Special Concerns: Consider advancing diet today Consider trial of lovenox today 6. Drains: none 7. Dressings: DRESSING CARE Leave dressing in place until your follow up appointment, or at a minimum, 7-10 days after leaving the hospital. After that time, you may change your dressing daily and check the inc ision for any signs of infection, such as: redness, swelling, unusual pain, or increasing d rainage. Your incision should be kept clean and dry. If you have sutures or harjit, do not get your wound wet for 5-7 days after your operation: either sponge bath or cover the incis ion with a waterproof bandage. You may shower, but please do not scrub at the dressing/surg ical site. Please do not soak the dressing in pool, tub, or jacuzzi. Keep your incision co farhan with a dressing until there is no discharge on bandage. 8. Orthopaedic Follow-up: Please call the clinic to make a follow up appointment in appro ximately 1 weeks with ORTHO TRAUMA [facility] F[facility]CTURE, ASAD Conti - (Jie Shepard) Subjective: Doing well, pain controlled, says he's doing well with PT and thinks very highly of his psy chical therapist here Objective: BP 158/69 | Pulse 58 | Temp 36.4 C (97.5 F) | RR 16 | Ht 1.702 m (5' 7") | Wt 84 kg (18 5 lb 3 oz) | SpO2 96% | BMI 29 kg/(m^2) Exam: General: appropriate, oriented Respiratory: regular, appropriate effort, not auscultated MSK: LEFT LOWER EXTREMITY: Inspection: Dressings in place, c/d/i Motor: fires tibialis anterior, fires gastrocsoleus complex, fires EHL, fire s FHL, fires quads, fires hamstrings, fires hip flexors Sensory: grossly intact to light touch, medial, lateral, dorsal, 1st dorsal web s pace, plantar Vascular: palpable dorsalis pedis, digits warm & well perfused, capillary refill < 2 seconds Doe Gongora MD Kg Snider MD - 06/05/2018 5:59 PM PST Internal Medicine Clinical Hospitalist Service Progress Note 24 Hour Events: No acute Current Symptoms: Reports breathing is baseline. Abdominal pain resolved. Feeling hungry. Tolerating clear li quids. No F/C. Small BMs after suppository this AM. No further N/V. MAR: Reviewed, please reference for full med list Physical Examination: Last 24 hour min/max Temp: 36.8 C (98.2 F) Temp Min: 36.3 C (97.3 F) Max: 36.8 C (98.2 F) Pulse: 73 Pulse Min: 61 Max: 73 Resp: 16 Resp Min: 16 Max: 16 BP: 172/86 BP Min: 143/86 Max: 185/90 SpO2: 96 % SpO2 Min: 91 % Max: 96 % Body mass index is 27.41 kg/m. I/O Intake/Output 06/03 700 - 06/04 0706/04 0706/05 0700 P.O. 1300 320 400 I.V. 1025 30 Total Intake 2325 350 400 Urine (mL/kg/hr) 1125 (0.6) 1625 (0.9) 1175 (1.3) Total Output(mL/kg) 1125 (14.2) 1625 (20.5) 1175 (14.8) Net +1200 -1275 -775 Urine 1 x 1 x Stool 2 x Emesis 1 x 2 x GEN: no acute distress, lying in bed with HOB elevated, conversant HEENT: PER, no scleral icterus, NC O2 in place Mouth: moist mucous membranes NECK: normal appearing JVP HEART: RRR with no murmur, rubs or gallops LUNGS: clear to auscultation bilaterally although somewhat poor air entry ABD: Soft, NT, ND, mildly hypoactive BS EXT: Trace LE edema, dorsalis pedis pulses intact, Left hip incision bandaged CDI NEURO/PSYCH: alert and orientated, appropriate affect Labs: Reviewed, notable for BMP with resolved hyponatremia, CBC with Hgb 12.1, PLT 181, normal Co ags. Imaging Interpretation: None today. Assessment and Plan William Burns is a 83-year-old man with COPD and HTN who presented to an OSH after GLF, found to have left pelvic fracture, transferred to [facility] Orthopedic Surgery service for surg ical management. [facility] initially consulted for pre-operative evaluation. Nausea/Vomiting Presumptive Post-OP Ileus Patient experiencing gastrointestinal upset post surgery. Suspect a large part of this was related to anesthesia, possible contribution of opioids. Suspect the dark and partially coff ee ground emesis related to mucosal irritation from known GERD. Has not shown evidence of ac tive bleed. Symptoms appearing to resolve after bowel rest last night. - Advance diet as tolerated. - Continue bowel reg and mobilize as tolerated - Dark brown emesis 06/04 not felt to be due to active bleed and therefore trial ppx lovenox while here in the hopital - D/C IV Fluid # COPD Has COPD at baseline after prolonged smoking history (although not clear he has ever had PF Ts which is gold standard for diagnosis). Not on supplemental oxygen at home or inhalers, but has a nebulizer device which he says he uses sparingly. On arrival to [facility] he was on 4 L NC and has ranged from 88-94% by pulse ox. As the severity of his COPD is unclear, bari r to err on side of caution and keep his O2 sat between 89-94%. The O2 sat in the 70s prev iously is likely due to oversedation from opioids (daughter concerned about oversedation wit h VBG noting elevated pCO2 from baseline). Given lasix 20 mg I vx1 with improvement in JVP (suspect related to elevated RVSP from COPD as his CXR does not show any pulmonary edema) --Supplemental oxygen prn to keep O2 sat between 89-94% --Agree with combivent inhaler --Pain control: -Tylenol 1000 mg po tid -oxycodone 5-10 mg po q4h prn moderate pain -Dilaudid 0.2-0.4 mg iv q4h prn severe pain -Agree with bowel regimen (last BM 4 days ago) -Diazepam iv discontinued # SVT On Diltiazem 240 mg po daily s outpatient, held on admission. Episode of supraventricular tachycardia morning of 06/02, with patient experiencing palpitations (no chest pain or dyspne a), HR reportedly 160-170s at the time but then dropped to 60-70s without any medications. ECG does not show atrial fibrillation, but does show PACs with telemetry noting episodes of either PACs v atrial fibrillation v artifact --Telemetry --Continue Metoprolol 6.25 mg po bid through tonight then stop --Resume home diltiazem 240mg tomorrow morning # HTN On lisinopril and lasix as outpatient --Resume lisinopril tomorrow --Continue to hold furosemide for now HLD Continue home pravastatin Thank you for the opportunity to contribute to this patient's care. The above recommendat ions were communicated to the primary team, orders placed. Teresa Sanchez MD Attending Physician Clinical Hospitalist Services [facility] Pager [phone] Please call or page me with any questions or concerns. Doe Newman MD - 06/05/2018 7:10 AM PST Orthopaedic Surgery Progress Note Patient: /Age: MRN: CSN: Date: Admission Date: Hospital Day: Orthopaedic Attending: William Burns 1935 83 y.o. [id number] 06/05/2018 05/31/2018 5 Nguyễn Shepard MD Diagnosis: 1. Left anterior column posterior hemitransverse acetabular fracture (involving 2 columns). Procedure(s) and Date(s): 06/03/18: 1. Closed reduction, percutaneous fixation left acetabulum Assessment & Plan: William Burns is a 83 y.o.M with the diagnoses/procedures listed above. Plan: -Pain control -PT/OT -NWB LLE x4 weeks post-op -Advance diet to clears today. Yesterday he had some coffee ground emesis, bloating, and [facility] B XR concerning for ileus, but no vomiting since yesterday early afternoon, denies feeling b loated, passing gas. -VTE ppx: IM talked to GI who recommended trial of lovenox. GI apparently not concerned for GI bleed - we would prefer 6 weeks ppx anticoag w/ Lovenox 40mg -Post op CT completed -F/u 4 weeks in clinic - 5 view pelvis at that time (AP, inlet, outlet, Judet x2) -Barriers to DC: Celar PT, pain control, medically stable Care Protocol Items: 1. Immobility due to illness 1. Weight bearing: non-weight bearing, left lower extremity 2. ROM: as tolerated, motion encouraged 3. PT/OT: eval and treat 2. VTE prophylaxis: SCDs. Will discuss Lovenox 40mg x 6 weeks risk/benefits with IM today 3. Antibiotics: ceFAZolin, for 24 hours perioperatively, complete 4. Pain Control: po and oral 5. Special Concerns: Consider advancing diet today Consider trial of lovenox today 6. Drains: none 7. Dressings: DRESSING CARE Leave dressing in place until your follow up appointment, or at a minimum, 7-10 days after leaving the hospital. After that time, you may change your dressing daily and check the inc ision for any signs of infection, such as: redness, swelling, unusual pain, or increasing d rainage. Your incision should be kept clean and dry. If you have sutures or harjit, do not get your wound wet for 5-7 days after your operation: either sponge bath or cover the incis ion with a waterproof bandage. You may shower, but please do not scrub at the dressing/surg ical site. Please do not soak the dressing in pool, tub, or jacuzzi. Keep your incision co farhan with a dressing until there is no discharge on bandage. If you have Steri-Strips (paper tape) over your incision, keep the incision covered until t here is no discharge on bandage. Do not remove Steri-Strips, they will fall off on own. Tr im edges of the Steri-Strips if they start to peel up. Do not soak in a bath tub or hot tub until your wound is completely healed, this usually takes 3-4 weeks Do not shave over the incision. Do not use lotions, powders, oils, or ointments on your incision. 8. Orthopaedic Follow-up: Please call the clinic to make a follow up appointment in appro ximately 1 weeks with ORTHO TRAUMA & FRACTURE, Ana Gill, ASAD - ([facility] a nd Working) Subjective: Denies any emesis since yesterday afternoon or feeling bloated, but says he does not have m uch of an appetite. Still passing gas, but no BM yet. Says pain is well controlled. Objective: BP 152/90 | Pulse 66 | Temp 36.3 C (97.3 F) | RR 16 | Ht 1.702 m (5' 7") | Wt 79.4 kg ( 175 lb) | SpO2 91% | BMI 27.41 kg/(m^2) Exam: General: appropriate, oriented Respiratory: regular, appropriate effort, not auscultated MSK: LEFT LOWER EXTREMITY: Inspection: Dressings in place, c/d/i Motor: fires tibialis anterior, fires gastrocsoleus complex, fires EHL, fire s FHL, fires quads, fires hamstrings, fires hip flexors Sensory: grossly intact to light touch, medial, lateral, dorsal, 1st dorsal web s pace, plantar Vascular: palpable dorsalis pedis, digits warm & well perfused, capillary refill < 2 seconds Doe Gongora MD [facility] Department of Orthopaedics & Rehabilitation [address] [place] [address] Mail Code: OP31 [facility] [address] Kg Snider MD - 06/04/2018 10:03 AM PST Internal Medicine Clinical Hospitalist Service Progress Note 24 Hour Events: Operative fixation left acetabulum Nausea, Vomiting this AM Emesis with coffee ground material Abdominal Pain Current Symptoms: Reports breathing is baseline. Reports abdominal pain, bloating this morning--associated na usea/vomiting. Pain greatest in epigastrium, radiating up to chest. Emesis dark brown with c offee ground material. Did not feel well enough to eat anything since surgery yesterday. Rep orts being diligent about taking daily PPI at home. Prior to admission not having any GI sym ptoms. Has not had GI upset with opioids in the past. MAR: Reviewed, please reference for full med list Physical Examination: Last 24 hour min/max Temp: 36.6 C (97.8 F) Temp Min: 36.3 C (97.3 F) Max: 37.2 C (99 F) Pulse: 97 Pulse Min: 56 Max: 97 Resp: 18 Resp Min: 10 Max: 25 BP: 151/74 BP Min: 92/47 Max: 182/83 SpO2: 92 % SpO2 Min: 88 % Max: 100 % Body mass index is 27.41 kg/m. I/O Intake/Output 06/02 07 - 06/03 0700 06/03 07 - 06/04 0700 06/04 07 - 06/05 0700 P.O. 765 1300 I.V. 1025 Total Intake 765 2325 Urine (mL/kg/hr) 1125 (0.6) 1125 (0.6) Total Output(mL/kg) 1125 (14.2) 1125 (14.2) Net -360 +1200 Urine 1 x Stool 3 x Emesis 1 x GEN: no acute distress, lying in bed with HOB elevated, conversant HEENT: PER, no scleral icterus, NC O2 in place Mouth: moist mucous membranes NECK: normal appearing JVP HEART: RRR with no murmur, rubs or gallops LUNGS: clear to auscultation bilaterally although somewhat poor air entry ABD: mild distention, slightly high pitched BS, diffuse tenderness but greatest in epigastr ium up into sternal area. EXT: Trace LE edema, dorsalis pedis pulses intact NEURO/PSYCH: alert and orientated, appropriate affect Labs: Reviewed, notable for BMP with mild hyponatremia, CBC with Hgb 11.8, PLT 120, normal Coags. Imaging Interpretation: Abdominal XR ordered, report pending--to my eye appears to have increased bowel gas pattern Assessment and Plan William Burns is a 83-year-old man with COPD and HTN who presented to an OSH after GLF, found to have left pelvic fracture, transferred to [facility] Orthopedic Surgery service for surg ical management. [facility] initially consulted for pre-operative evaluation. Nausea/Vomiting Emesis (concern for coffee ground) Possible mild GI bleed (suspect superficial irritation secondary to know GERD) Patient experiencing gastrointestinal upset since surgery yesterday. Suspect a large part o f this is related to anesthesia, possible contribution of opioids. Suspect the dark and part ially coffee ground emesis related to mucosal irritation from known GERD. Does not have inst ability to suspect very active bleed, but this situation complicates DVT ppx. Reports passin g gas and does not appear overtly obstructed but given high pitched sounds will evaluate fur ther with XR, ? developing ileus. - Agree with NPO for now - F/U AM CBC, Coags (CBC will be difficult to interpret with pre - Already T&S - Discussed with GI utility of EGD to better evaluate GI tract given indication for ppx ant icoagulation--their impression from description was more concern for developing ileus over a ctive bleed and felt that trial of ppx lovenox while here would likely be preferable to endo scopic eval. - Abdominal XR # COPD Has COPD at baseline after prolonged smoking history (although not clear he has ever had PF Ts which is gold standard for diagnosis). Not on supplemental oxygen at home or inhalers, but has a nebulizer device which he says he uses sparingly. On arrival to [facility] he was on 4 L NC and has ranged from 88-94% by pulse ox. As the severity of his COPD is unclear, bari r to err on side of caution and keep his O2 sat between 89-94%. The O2 sat in the 70s prev iously is likely due to oversedation from opioids (daughter concerned about oversedation wit h VBG noting elevated pCO2 from baseline). Given lasix 20 mg I vx1 with improvement in JVP (suspect related to elevated RVSP from COPD as his CXR does not show any pulmonary edema) --Supplemental oxygen prn to keep O2 sat between 89-94% --Agree with combivent inhaler --Pain control: -Tylenol 1000 mg po tid -oxycodone 5-10 mg po q4h prn moderate pain -Dilaudid 0.2-0.4 mg iv q4h prn severe pain -Agree with bowel regimen (last BM 4 days ago) -Diazepam iv discontinued # SVT On Diltiazem 240 mg po daily s outpatient, held on admission. Episode of supraventricular tachycardia morning of 06/02, with patient experiencing palpitations (no chest pain or dyspne a), HR reportedly 160-170s at the time but then dropped to 60-70s without any medications. ECG does not show atrial fibrillation, but does show PACs with telemetry noting episodes of either PACs v atrial fibrillation v artifact --Telemetry --Continue Metoprolol 6.25 mg po bid --Hold on resuming diltiazem as his HR is at goal (want to avoid bradycardia) # HTN On lisinopril and lasix as outpatient --Holding lisinopril for now as just recovering from OR and NPO --D/C furosemide for now HLD Continue home pravastatin Thank you for the opportunity to contribute to this patient's care. The above recommendat ions were communicated to the primary team. Teresa Sanchez MD Attending Physician Clinical Hospitalist Services [facility] Pager [phone] Please call or page me with any questions or concerns. Devendra Scales MD - 06/04/2018 7:48 AM PST Orthopaedic Surgery Progress Note Patient: /Age: MRN: CSN: Date: Admission Date: Hospital Day: Orthopaedic Attending: William Burns 1935 83 y.o. [id number] 06/04/2018 05/31/2018 4 Nguyễn Shepard MD Diagnosis: 1. Left anterior column posterior hemitransverse acetabular fracture (involving 2 columns). Procedure(s) and Date(s): 06/03/18: 1. Closed reduction, percutaneous fixation left acetabulum Assessment & Plan: William Burns is a 83 y.o.M with the diagnoses/procedures listed above. Plan: -Pain control -NWB LLE x4 weeks -PT/OT -Talk to IM team - patient with new dark brown emesis. Has also reported chest pain, shortn ess of breath and has been tachy to 160's, episode of Vtach, during this admission -NPO now 2/2 brown tinged emesis -VTE ppx: discuss with medicine - we would prefer 6 weeks ppx anticoag w/ Lovenox 40mg, but need to weight risks/benefits -Post op CT completed -F/u 4 weeks in clinic - 5 view pelvis at that time (AP, inlet, outlet, Judet x2) -Barriers to DC: Celar PT, pain control, medically stable Care Protocol Items: 1. Immobility due to illness 1. Weight bearing: non-weight bearing, left lower extremity 2. ROM: as tolerated, motion encouraged 3. PT/OT: eval and treat 2. VTE prophylaxis: SCDs. Will discuss Lovenox 40mg x 6 weeks risk/benefits with IM today 3. Antibiotics: ceFAZolin, for 24 hours perioperatively, complete 4. Pain Control: po and oral 5. Special Concerns: Talk to IM about patient's new dark brown emesis, other medical nawaf rbidities NPO now secondary to emesis 6. Drains: none 7. Dressings: DRESSING CARE Leave dressing in place until your follow up appointment, or at a minimum, 7-10 days after leaving the hospital. After that time, you may change your dressing daily and check the inc ision for any signs of infection, such as: redness, swelling, unusual pain, or increasing d rainage. Your incision should be kept clean and dry. If you have sutures or harjit, do not get your wound wet for 5-7 days after your operation: either sponge bath or cover the incis ion with a waterproof bandage. You may shower, but please do not scrub at the dressing/surg ical site. Please do not soak the dressing in pool, tub, or jacuzzi. Keep your incision co farhan with a dressing until there is no discharge on bandage. If you have Steri-Strips (paper tape) over your incision, keep the incision covered until t here is no discharge on bandage. Do not remove Steri-Strips, they will fall off on own. Tr im edges of the Steri-Strips if they start to peel up. Do not soak in a bath tub or hot tub until your wound is completely healed, this usually takes 3-4 weeks Do not shave over the incision. Do not use lotions, powders, oils, or ointments on your incision. 8. Orthopaedic Follow-up: Please call the [facility]O TRAU[facility] & FRACTURE, ASAD Conti - (Jie Shepard) Subjective: Has had some dark brown emesis overnight. Says he doesn't feel great. Pain is well controll ed. Objective: BP 151/74 | Pulse 97 | Temp 36.6 C (97.8 F) | RR 18 | Ht 1.702 m (5' 7") | Wt 79.4 kg ( 175 lb) | SpO2 92% | BMI 27.41 kg/(m^2) Exam: General: appropriate, oriented Respiratory: regular, appropriate effort, not auscultated MSK: Tertiary: RIGHT UPPER EXTREMITY: Inspection: unremarkable Palpation: unremarkable ROM: full P/ROM shoulder, elbow, wrist, fingers, full A/ROM shoulder, elbow, wrist, fingers Motor: makes OK sign, crosses and abducts fingers, gives thumbs up, fires wrist extensors, fires wrist flexors, fires biceps, fires triceps, fires deltoid Sensory: grossly intact to light touch, median, ulnar, radial, axillary Vascular: palpable radial, digits warm, well perfused, capillary refill <2 sec Reflexes: not performed LEFT UPPER EXTREMITY: Inspection: unremarkable Palpation: unremarkable ROM: full P/ROM shoulder, elbow, wrist, fingers, full A/ROM shoulder, elbow, wrist, fingers Motor: makes OK sign, crosses and abducts fingers, gives thumbs up, fires wrist extensors, fires wrist flexors, fires biceps, fires triceps, fires deltoid Sensory: grossly intact to light touch, median, ulnar, radial, axillary Vascular: palpable radial, digits warm, well perfused, capillary refill <2 sec Reflexes: not performed LEFT LOWER EXTREMITY: Inspection: unremarkable Palpation: unremarkable ROM: full P/ROM hip, knee, ankle, foot, toes, full A/ROM hip, knee, ankle, foot, toes Motor: fires tibialis anterior, fires gastrocsoleus complex, fires EHL, fires FHL, fires qu ads, fires hamstrings, fires hip flexors Sensory: grossly intact to light touch, medial, lateral, dorsal, 1st dorsal web space, plan tar Vascular: palpable dorsalis pedis, palpable posterior tibial, digits warm & well perfused, capillary refill < 2 seconds, DANNY not indicated Reflexes: not performed LEFT LOWER EXTREMITY: Inspection: Dressings in place, no strike through Motor: fires tibialis anterior, fires gastrocsoleus complex, fires EHL, fire s FHL, fires quads, fires hamstrings, fires hip flexors Sensory: grossly intact to light touch, medial, lateral, dorsal, 1st dorsal web s pace, plantar Vascular: palpable dorsalis pedis, digits warm & well perfused, capillary refill < 2 seconds Doe Gongora MD [facility] Department of Orthopaedics & Rehabilitation [address] [place] [address] Mail Code: OP31 [facility] [address] Yordy, Devendra Allen MD - 06/03/2018 8:32 PM PST [facility] DEPARTMENT OF ORTHOPAEDICS & REHABILITATION POST-OPERATIVE CHECK Patient: William Burns Date: 06/03/2018 Admitted: 05/31/2018 Hospital Day: 3 Attending Physician: Nguyễn Shepard MD Diagnosis(es): Left anterior column posterior hemitransverse acetabular fracture (involving 2 columns). Orthopaedic Procedure(s): Closed reduction and percutaneous fixation of the left acetabulum Subjective: William Burns is a 83 y.o. male who is postoperative day #0 from the above procedure(s) . Overall he is doing well. Objective: Last Vitals: Pulse: 67 BP: 127/62 Temp: 37.2 C (99 F) SpO2: 94 % Resp: 18 Focused Exam: General: appropriate, oriented Respiratory: regular, appropriate effort, not auscultated MSK: LEFT LOWER EXTREMITY: Inspection: Dressings in place, no strike through Motor: fires tibialis anterior, fires gastrocsoleus complex, fires EHL, fires FHL, fire s quads, fires hamstrings, fires hip flexors Sensory: grossly intact to light touch, medial, lateral, dorsal, 1st dorsal web space, p lantar Vascular: palpable dorsalis pedis, digits warm & well perfused, capillary refill < 2 seco nds Assessment & Plan: William uBrns is a 83 y.o.M with the diagnoses/procedures listed above, experiencing a( an) At Expected Level postoperative course. POSTOPERATIVE PLAN: - Please refer to brief operative note for complete details of the post-operative plan. Devendra Da Silva MD Orthopaedic Surgery Resident 06/03/2018, 8:33 PM [facility] Department of Orthopaedics & Rehabilitation [address] [facility] Mail Code: OP31 [place] [address] Jade Messina MD - 06/02/2018 8:36 AM PSTFormatting of this note might be different from the origina l. Orthopaedic Surgery Progress Note Attending Nguyễn Shepard MD Diagnosis Left acetabulum fracture Procedure 06.01.2018: left distal femur skeletal traction S: Patient upset this am that he is not having surgery today. He is very painful in the left hip. Also complains of some tightness and palpitations in his chest. He has experienced th is before. He also has experienced cardiac related "chest pain", and does not think this is the same type of pain. O: Last Vitals: BP 148/75 | Pulse 74 | Temp 36.4 C (97.6 F) | RR 16 | SpO2 95% 24 Hour Vital Min/Max: Systolic (24hrs), Av , Min:114 , Max:158 Diastolic (24hrs), Av, Min:52, Max:91 Pulse Min: 52 Max: 76 Temp Min: 36.3 C (97.3 F) Max: 36.7 C (98.1 F) Resp Min: 16 Max: 18 SpO2 Min: 90 % Max: 99 % Intake/Output Summary (Last 24 hours) at 06/02/18 0836 Last data filed at 06/01/18 2300 Gross per 24 hour Intake 910 ml Output 750 ml Net 160 ml Pulse irregular by palpation this am. HR fluctuating between 174 and 65 during this exam. Left Lower Extremity Skeletal traction in place Moving toes Sensation intact at plantar and dorsal foot A/P: William Burns is a 83 y.o. male with left acetabulum fracture. Concern for atrial fibr illation, possible chest pain this am. EKG ordered and hospitalist consulting team paged. WB: NWB LLE ROM: Continue in skeletal traction Diet: Regular, NPO at midnight for OR tomorrow DVT ppx: Lovenox, hold at midnight for OR tomorrow Antibiotics: None at this time Dispo: Continue inpatient care. Plan for OR tomorrow. Please call Orthopaedic Trauma and Fracture at [phone] to schedule a followup within 2 weeks from discharge. ALEXA VICKERS MD Pager: [phone] 06/02/2018 Doe Newman MD - 06/01/2018 8:27 AM PST Orthopaedic Surgery Progress Note Patient: /Age: MRN: CSN: Date: Admission Date: Hospital Day: Orthopaedic Attending: William Ramirez Grant 1935 83 y.o. [id number] 06/01/2018 05/31/2018 1 Nguyễn Shepard MD Diagnosis: 1. Left Acetabulum Fracture 2. Left Inferior Pubic Ramus Fracture Procedure(s) and Date(s): Plan for OR Sunday for perc vs open left acetabular reduction/fixation Assessment & Plan: William Burns is a 83 y.o.M with the diagnoses/procedures listed above. Plan: -OK for diet now, NPO midnight Sunday for OR -OK for VTE ppx, hold VTE ppx Sunday for OR -NWB LLE -PT/OT -Pain Control -Maintain skeletal traction at 20 lbs, daily pin care as below -CHS consulted for pre-op optimization -Full length left femur films obtained, will need post traction pin films Care Protocol Items: 1. Immobility due to illness 1. Weight bearing: non-weight bearing, left lower extremity 2. ROM: as tolerated, motion encouraged 3. PT/OT: eval and treat 2. VTE prophylaxis: high risk, lovenox SC 30mg BID or by weight, sequential compression dev ices 3. Antibiotics: none 4. Pain Control: po and oral 5. Special Concerns: -CHS for pre-op clearance -maintain skeletal traction until OR -NPO midnight Sunday 6. Drains: none 7. Dressings: DRESSING CARE Leave dressing in place until your follow up appointment, or at a minimum, 7-10 days after leaving the hospital. After that time, you may change your dressing daily and check the inc ision for any signs of infection, such as: redness, swelling, unusual pain, or increasing d rainage. Your incision should be kept clean and dry. If you have sutures or harjit, do not get your wound wet for 5-7 days after your operation: either sponge bath or cover the incis ion with a waterproof bandage. You may shower, but please do not scrub at the dressing/surg ical site. Please do not soak the dressing in pool, tub, or jacuzzi. Keep your incision co farhan with a dressing until there is no discharge on bandage. PIN CARE It is necessary to clean the pins carefully once each day. Clean each pin site with Hibicle ns (4% chlorhexidine gluconate) or a mixture of peroxide and normal saline solution on ce per day. Use a new sterile cotton swab for each pin site. Gently clean around each pin si te. Push the skin back around the pin to prevent the skin from growing over the pin; remove any adherent drainage or crusty material. 8. Orthopaedic Follow-up: Please call the clinic to make a follow up appointment [facility] 2[facility]3 weeks with ORTHO TRAUMA & FRACTURE, ASAD Conti - ([employer] Working) Subjective: Doing well this morning, having some left hip muscle spasms. We will place him in skeletal traction for comfort later this morning. Objective: BP 127/71 | Pulse 67 | Temp 36.5 C (97.7 F) | RR 16 | SpO2 91% Exam: General: appropriate, oriented MSK: Secondary Survey: completed LEFT LOWER EXTREMITY: Inspection: Hip and knee held in slight flexion Palpation: unremarkable ROM: full P/ROM hip, knee, ankle, foot, toes, full A/ROM hip, knee, ankle, foot, toes Motor: fires tibialis anterior, fires gastrocsoleus complex, fires EHL, fires FHL, fire s quads, fires hamstrings, fires hip flexors Sensory: grossly intact to light touch, medial, lateral, dorsal, 1st dorsal web space, p lantar Vascular: palpable dorsalis pedis, palpable posterior tibial, digits warm & well perfused , capillary refill < 2 seconds Reflexes: not performed Doe Gongora MD [facility] Department of Orthopaedics & Rehabilitation [address] [facility] Mail Code: OP31 Dileep CHAPPELL [id number] documented in this enco unter Plan of Treatment + +---------+--------+ + + | Name | Type | Priori | Associated Diagnoses | Date/Time | | | | ty | | | + +---------+--------+ + + | X-RAY FLUOROSCOPY IN | Imaging | Urgent | | 06/03/2018 2:04 PM | | OR > 1 HOUR | | | | PST | + +---------+--------+ + + + +---------+--------+ + + | Name | Type | Priori | Associated Diagnoses | Order Schedule | | | | ty | | | + +---------+--------+ + + | 12 LEAD ECG | ECG | Routin | | One Time for 1 | | | | e | | Occurrences starting | | | | | | 05/31/2018 until | | | | | | 05/31/2018 | + +---------+--------+ + + | X-RAY FLUOROSCOPY IN | Imaging | Urgent | | One Time for 1 | | OR > 1 HOUR | | | | Occurrences starting | | | | | | 06/03/2018 until | | | | | | 06/03/2018 | + +---------+--------+ + + | 12 LEAD ECG | ECG | Urgent | | One Time for 1 | | | | | | Occurrences starting | | | | | | 06/03/2018 until | | | | | | 06/03/2018 | + +---------+--------+ + + documented as of this encounter Procedures + +--------+ + + + | Procedure Name | Priori | Date/Time | Associated Diagnosis | Comments | | | ty | | | | + +--------+ + + + | CBC (HEMOGRAM) ONLY | Routin | 06/06/2018 | | Results for this | | | e | 6:48 AM | | procedure are in the | | | | PST | | results section. | + +--------+ + + + | BASIC METABOLIC SET | Routin | 06/06/2018 | | Results for this | | (NA, K, CL, TCO2, | e | 6:48 AM | | procedure are in the | | BUN, CR, GLU, CA) | | PST | | results section. | + +--------+ + + + | CBC ONLY | Routin | 06/06/2018 | | Results for this | | | e | 6:48 AM | | procedure are in the | | | | PST | | results section. | + +--------+ + + + | CARDIOLOGY | | 06/06/2018 | | Results for this | | | | 12:00 AM | | procedure are in the | | | | PST | | results section. | + +--------+ + + + | CARDIOLOGY | | 06/06/2018 | | Results for this | | | | 12:00 AM | | procedure are in the | | | | PST | | results section. | + +--------+ + + + | CBC (HEMOGRAM) ONLY | Routin | 06/05/2018 | | Results for this | | | e | 8:05 AM | | procedure are in the | | | | PST | | results section. | + +--------+ + + + | BASIC METABOLIC SET | Routin | 06/05/2018 | | Results for this | | (NA, K, CL, TCO2, | e | 8:05 AM | | procedure are in the | | BUN, CR, GLU, CA) | | PST | | results section. | + +--------+ + + + | CBC ONLY | Routin | 06/05/2018 | | Results for this | | | e | 8:05 AM | | procedure are in the | | | | PST | | results section. | + +--------+ + + + | CARDIOLOGY | | 06/05/2018 | | Results for this | | | | 12:00 AM | | procedure are in the | | | | PST | | results section. | + +--------+ + + + | CARDIOLOGY | | 06/05/2018 | | Results for this | | | | 12:00 AM | | procedure are in the | | | | PST | | results section. | + +--------+ + + + | CARDIOLOGY | | 06/05/2018 | | Results for this | | | | 12:00 AM | | procedure are in the | | | | PST | | results section. | + +--------+ + + + | VITAMIN D, | Routin | 06/04/2018 | | Results for this | | 25-HYDROXY, SERUM | e | 8:18 PM | | procedure are in the | | | | PST | | results section. | + +--------+ + + + | CBC (HEMOGRAM) ONLY | Routin | 06/04/2018 | | Results for this | | | e | 3:17 PM | | procedure are in the | | | | PST | | results section. | + +--------+ + + + | CBC ONLY | Routin | 06/04/2018 | | Results for this | | | e | 3:17 PM | | procedure are in the | | | | PST | | results section. | + +--------+ + + + | X-RAY PORTABLE 2 | Routin | 06/04/2018 | | Results for this | | VIEW ABDOMEN (KUB | e | 2:32 PM | | procedure are in the | | AND UPRIGHT) | | PST | | results section. | + +--------+ + + + | CBC (HEMOGRAM) ONLY | Routin | 06/04/2018 | | Results for this | | | e | 9:37 AM | | procedure are in the | | | | PST | | results section. | + +--------+ + + + | INR | Routin | 06/04/2018 | | Results for this | | | e | 9:37 AM | | procedure are in the | | | | PST | | results section. | + +--------+ + + + | BASIC METABOLIC SET | Routin | 06/04/2018 | | Results for this | | (NA, K, CL, TCO2, | e | 9:37 AM | | procedure are in the | | BUN, CR, GLU, CA) | | PST | | results section. | + +--------+ + + + | CBC ONLY | Routin | 06/04/2018 | | Results for this | | | e | 9:37 AM | | procedure are in the | | | | PST | | results section. | + +--------+ + + + | APTT (ACT. PART. | Routin | 06/04/2018 | | Results for this | | THROMBO TIME) | e | 9:37 AM | | procedure are in the | | | | PST | | results section. | + +--------+ + + + | CARDIOLOGY | | 06/04/2018 | | Results for this | | | | 12:00 AM | | procedure are in the | | | | PST | | results section. | + +--------+ + + + | CARDIOLOGY | | 06/04/2018 | | Results for this | | | | 12:00 AM | | procedure are in the | | | | PST | | results section. | + +--------+ + + + | CARDIOLOGY | | 06/04/2018 | | Results for this | | | | 12:00 AM | | procedure are in the | | | | PST | | results section. | + +--------+ + + + | PROCEDURE NOTE | Routin | 06/03/2018 | | Results for this | | | e | 11:00 PM | | procedure are in the | | | | PST | | results section. | + +--------+ + + + | CT PELVIS WO IV | Routin | 06/03/2018 | | Results for this | | CONTRAST | e | 10:07 PM | | procedure are in the | | | | PST | | results section. | + +--------+ + + + | OPERATION RECORD | | 06/03/2018 | | Results for this | | | | 4:58 PM | | procedure are in the | | | | PST | | results section. | + +--------+ + + + | MAGNESIUM, PLASMA | Urgent | 06/03/2018 | | Results for this | | | | 4:37 PM | | procedure are in the | | | | PST | | results section. | + +--------+ + + + | 12 LEAD ECG | Routin | 06/03/2018 | | Results for this | | | e | 4:20 PM | | procedure are in the | | | | PST | | results section. | + +--------+ + + + | CAPILLARY BLOOD | Routin | 06/03/2018 | History of pelvic | Results for this | | GLUCOSE (NO CHG), | e | 2:50 PM | fracture | procedure are in the | | POC | | PST | | results section. | + +--------+ + + + | X-RAY PELVIS 4+ | Urgent | 06/03/2018 | | Results for this | | VIEWS | | 2:05 PM | | procedure are in the | | | | PST | | results section. | + +--------+ + + + | SACROILIAC SCREW | | 06/03/2018 | left acetabulum | | | | | 11:21 AM | fracture | | | | | PST | | | + +--------+ + + + | CAPILLARY BLOOD | Routin | 06/03/2018 | History of pelvic | Results for this | | GLUCOSE (NO CHG), | e | 11:01 AM | fracture | procedure are in the | | POC | | PST | | results section. | + +--------+ + + + | CBC (HEMOGRAM) ONLY | Routin | 06/03/2018 | | Results for this | | | e | 6:51 AM | | procedure are in the | | | | PST | | results section. | + +--------+ + + + | BASIC METABOLIC SET | Routin | 06/03/2018 | | Results for this | | (NA, K, CL, TCO2, | e | 6:51 AM | | procedure are in the | | BUN, CR, GLU, CA) | | PST | | results section. | + +--------+ + + + | CBC ONLY | Routin | 06/03/2018 | | Results for this | | | e | 6:51 AM | | procedure are in the | | | | PST | | results section. | + +--------+ + + + | CARDIOLOGY | | 06/03/2018 | | Results for this | | | | 12:00 AM | | procedure are in the | | | | PST | | results section. | + +--------+ + + + | CARDIOLOGY | | 06/03/2018 | | Results for this | | | | 12:00 AM | | procedure are in the | | | | PST | | results section. | + +--------+ + + + | CARDIOLOGY | | 06/03/2018 | | Results for this | | | | 12:00 AM | | procedure are in the | | | | PST | | results section. | + +--------+ + + + | X-RAY CHEST 1 VIEW | Routin | 06/02/2018 | | Results for this | | | e | 10:10 AM | | procedure are in the | | | | PST | | results section. | + +--------+ + + + | 12 LEAD ECG | Routin | 06/02/2018 | | Results for this | | | e | 9:00 AM | | procedure are in the | | | | PST | | results section. | + +--------+ + + + | CBC (HEMOGRAM) ONLY | Routin | 06/02/2018 | | Results for this | | | e | 6:19 AM | | procedure are in the | | | | PST | | results section. | + +--------+ + + + | BASIC METABOLIC SET | Routin | 06/02/2018 | | Results for this | | (NA, K, CL, TCO2, | e | 6:19 AM | | procedure are in the | | BUN, CR, GLU, CA) | | PST | | results section. | + +--------+ + + + | CBC ONLY | Routin | 06/02/2018 | | Results for this | | | e | 6:19 AM | | procedure are in the | | | | PST | | results section. | + +--------+ + + + | ANTIBODY SCREEN | Routin | 06/02/2018 | | Results for this | | | e | 6:19 AM | | procedure are in the | | | | PST | | results section. | + +--------+ + + + | TYPE AND SCREEN | Routin | 06/02/2018 | | Results for this | | | e | 6:19 AM | | procedure are in the | | | | PST | | results section. | + +--------+ + + + | ABO & RH TYPE | Routin | 06/02/2018 | | Results for this | | | e | 6:19 AM | | procedure are in the | | | | PST | | results section. | + +--------+ + + + | MAGNESIUM, PLASMA | Routin | 06/02/2018 | | Results for this | | | e | 6:19 AM | | procedure are in the | | | | PST | | results section. | + +--------+ + + + | CARDIOLOGY | | 06/02/2018 | | Results for this | | | | 12:00 AM | | procedure are in the | | | | PST | | results section. | + +--------+ + + + | CARDIOLOGY | | 06/02/2018 | | Results for this | | | | 12:00 AM | | procedure are in the | | | | PST | | results section. | + +--------+ + + + | BLOOD GASES, VENOUS | Routin | 06/01/2018 | | Results for this | | - LAB | e | 5:02 PM | | procedure are in the | | | | PST | | results section. | + +--------+ + + + | X-RAY KNEE 2 VIEWS | Urgent | 06/01/2018 | | Results for this | | LEFT | | 11:48 AM | | procedure are in the | | | | PST | | results section. | + +--------+ + + + | CBC (HEMOGRAM) ONLY | Routin | 06/01/2018 | | Results for this | | | e | 10:27 AM | | procedure are in the | | | | PST | | results section. | + +--------+ + + + | BASIC METABOLIC SET | Routin | 06/01/2018 | | Results for this | | (NA, K, CL, TCO2, | e | 10:27 AM | | procedure are in the | | BUN, CR, GLU, CA) | | PST | | results section. | + +--------+ + + + | CBC ONLY | Routin | 06/01/2018 | | Results for this | | | e | 10:27 AM | | procedure are in the | | | | PST | | results section. | + +--------+ + + + | X-RAY FEMUR 2 VIEWS | Urgent | 06/01/2018 | | Results for this | | LEFT | | 9:10 AM | | procedure are in the | | | | PST | | results section. | + +--------+ + + + | X-RAY PELVIS 3 VIEWS | Routin | 05/31/2018 | | Results for this | | | e | 9:14 PM | | procedure are in the | | | | PST | | results section. | + +--------+ + + + | CBC (HEMOGRAM) ONLY | Routin | 05/31/2018 | | Results for this | | | e | 1:31 PM | | procedure are in the | | | | PST | | results section. | + +--------+ + + + | BASIC METABOLIC SET | Routin | 05/31/2018 | | Results for this | | (NA, K, CL, TCO2, | e | 1:31 PM | | procedure are in the | | BUN, CR, GLU, CA) | | PST | | results section. | + +--------+ + + + | CBC ONLY | Routin | 05/31/2018 | | Results for this | | | e | 1:31 PM | | procedure are in the | | | | PST | | results section. | + +--------+ + + + | LAB REPORTS | | 05/30/2018 | | Results for this | | | | 12:00 AM | | procedure are in the | | | | PST | | results section. | + +--------+ + + + documented in this encounter Results CBC (HEMOGRAM) ONLY (06/06/2018 6:48 AM PST) + + + + + + | Component | Value | Ref Range | Performed | Pathologist | | | | | At | Signature | + + + + + + | WHITE CELL | 8.81 | 3.50 - 10.80 | [facility] | | | COUNT | | K/cu mm | LABORATORY | | | | | | SERVICES, | | | | | | CORE | | + + + + + + | RED CELL | 3.91 (L) | 4.50 - 6.00 | [facility] | | | COUNT | | M/cu mm | LABORATORY | | | | | | SERVICES, | | | | | | CORE | | + + + + + + | HEMOGLOBIN | 11.7 (L) | 13.5 - 17.5 | [facility] | | | | | g/dL | LABORATORY | | | | | | SERVICES, | | | | | | CORE | | + + + + + + | HEMATOCRIT | 36.2 (L) | 41.0 - 53.0 % | [facility] | | | | | | LABORATORY | | | | | | SERVICES, | | | | | | CORE | | + + + + + + | MCV | 92.6 | 80.0 - 100.0 fL | [facility] | | | | | | LABORATORY | | | | | | SERVICES, | | | | | | CORE | | + + + + + + | MCHC | 32.3 | 32.0 - 36.0 | [facility] | | | | | g/dL | LABORATORY | | | | | | SERVICES, | | | | | | CORE | | + + + + + + | RDW SD | 43.8 | 35.1 - 46.3 fL | [facility] | | | | | | LABORATORY | | | | | | SERVICES, | | | | | | CORE | | + + + + + + | PLATELET | 186 | 150 - 400 K/cu | [facility] | | | COUNT | | mm | LABORATORY | | | | | | SERVICES, | | | | | | CORE | | + + + + + + | MPV | 12.8 (H) | 9.7 - 12.3 fL | [facility] | | | | | | LABORATORY | | | | | | SERVICES, | | | | | | CORE | | + + + + + + | NRBC% | 0.0 | 0.0 - 0.3 % | [facility] | | | | | | LABORATORY | | | | | | SERVICES, | | | | | | CORE | | + + + + + + | NRBC# | 0.00 | 0.00 - 0.02 | [facility] | | | | | K/cu mm | LABORATORY | | | | | | SERVICES, | | | | | | CORE | | + + + + + + + + | Specimen | + + | Blood - Blood | | (substance) | + + + + + + + | Performing | Address | City/State/Zipcode | Phone Number | | Organization | | | | + + + + + | [facility] | [address] | [place] [address] | | | SERVICES, CORE | [address] | | | + + + + + BASIC METABOLIC SET (NA, K, CL, TCO2, BUN, CR, GLU, CA) (06/06/2018 6:48 AM PST) + + + + + + | Component | Value | Ref Range | Performed | Pathologist | | | | | At | Signature | + + + + + + | GLUCOSE, | 86 | 70 - 99 mg/dL | [facility] | | | PLASMA | | | LABORATORY | | | (LAB) | | | SERVICES, | | | | | | CORE | | + + + + + + | BUN, PLASMA | 14 | 6 - 20 mg/dL | [facility] | | | (LAB) | | | LABORATORY | | | | | | SERVICES, | | | | | | CORE | | + + + + + + | CREATININE | 0.64 (L) | 0.70 - 1.30 | [facility] | | | PLASMA | | mg/dL | LABORATORY | | | (LAB) | | | SERVICES, | | | | | | CORE | | + + + + + + | EGFR | >60 | >60 mL/min | [facility] | | | - | | | LABORATORY | | | [facility] | | | SERVICES, | | | | | | CORE | | + + + + + + | EGFR NON | >60 | >60 mL/min | [facility] | | | -HORACIO | | | LABORATORY | | | RICAN | | | SERVICES, | | | | | | CORE | | + + + + + + | SODIUM, | 136 | 136 - 145 | [facility] | | | PLASMA | | mmol/L | LABORATORY | | | (LAB) | | | SERVICES, | | | | | | CORE | | + + + + + + | POTASSIUM, | 4.1 | 3.4 - 5.0 | [facility] | | | PLASMA | | mmol/L | LABORATORY | | | (LAB) | | | SERVICES, | | | | | | CORE | | + + + + + + | CHLORIDE, | 100 | 97 - 108 mmol/L | [facility] | | | PLASMA | | | LABORATORY | | | (LAB) | | | SERVICES, | | | | | | CORE | | + + + + + + | TOTAL CO2, | 28 | 21 - 32 mmol/L | [facility] | | | PLASMA | | | LABORATORY | | | (LAB) | | | SERVICES, | | | | | | CORE | | + + + + + + | CALCIUM, | 8.3 (L) | 8.6 - 10.2 | [facility] | | | PLASMA | | mg/dL | LABORATORY | | | (LAB) | | | SERVICES, | | | | | | CORE | | + + + + + + | ANION GAP | 8 | 4 - 11 mmol/L | [facility] | | | | | | LABORATORY | | | | | | SERVICES, | | | | | | CORE | | + + + + + + | POTASSIUM | No Hemo | | [facility] | | | CMNT | | | LABORATORY | | | | | | SERVICES, | | | | | | CORE | | + + + + + + + + | Specimen | + + | Blood - Blood | | (substance) | + + + + + | Narrative | Performed At | + + + | GFR is estimated using the MDRD equation recommended by the | [facility] | | National Kidney Disease Education Program. Estimated GFR | LABORATORY | | Interpretive Information: <60 mL/min/1.73 sq m | SERVICES, CORE | | Chronic Kidney Disease <15 mL/min/1.73 sq m | | | Kidney Failure Estimated GFR greater than 60 mL/min/1.73 sq m is of | | | limited clinical value. The MDRD equation is not valid in the | | | following situations: - Patients under 18 years of age - Severe | | | malnutrition or obesity - Vegetarian diet - Rapidly changing kidney | | | function - Amputees, paraplegics, or other muscle-wasting diseses | | + + + + + + + + | Performing | Address | City/State/Zipcode | Phone Number | | Organization | | | | + + + + + | [facility] | [address] | [place] [address] | | | SERVICES, CORE | [address] | | | + + + + + CARDIOLOGY (06/06/2018 12:00 AM PST) + + + | Narrative | Performed At | + + + | | | + + + CARDIOLOGY (06/06/2018 12:00 AM PST) + + + | Narrative | Performed At | + + + | | | + + + CBC (HEMOGRAM) ONLY (06/05/2018 8:05 AM PST) + + + + + + | Component | Value | Ref Range | Performed | Pathologist | | | | | At | Signature | + + + + + + | WHITE CELL | 9.34 | 3.50 - 10.80 | [facility] | | | COUNT | | K/cu mm | LABORATORY | | | | | | SERVICES, | | | | | | CORE | | + + + + + + | RED CELL | 3.99 (L) | 4.50 - 6.00 | [facility] | | | COUNT | | M/cu mm | LABORATORY | | | | | | SERVICES, | | | | | | CORE | | + + + + + + | HEMOGLOBIN | 12.1 (L) | 13.5 - 17.5 | [facility] | | | | | g/dL | LABORATORY | | | | | | SERVICES, | | | | | | CORE | | + + + + + + | HEMATOCRIT | 37.2 (L) | 41.0 - 53.0 % | [facility] | | | | | | LABORATORY | | | | | | SERVICES, | | | | | | CORE | | + + + + + + | MCV | 93.2 | 80.0 - 100.0 fL | [facility] | | | | | | LABORATORY | | | | | | SERVICES, | | | | | | CORE | | + + + + + + | MCHC | 32.5 | 32.0 - 36.0 | [facility] | | | | | g/dL | LABORATORY | | | | | | SERVICES, | | | | | | CORE | | + + + + + + | RDW SD | 44.9 | 35.1 - 46.3 fL | [facility] | | | | | | LABORATORY | | | | | | SERVICES, | | | | | | CORE | | + + + + + + | PLATELET | 181 | 150 - 400 K/cu | [facility] | | | COUNT | | mm | LABORATORY | | | | | | SERVICES, | | | | | | CORE | | + + + + + + | MPV | 11.9 | 9.7 - 12.3 fL | [facility] | | | | | | LABORATORY | | | | | | SERVICES, | | | | | | CORE | | + + + + + + | NRBC% | 0.0 | 0.0 - 0.3 % | [facility] | | | | | | LABORATORY | | | | | | SERVICES, | | | | | | CORE | | + + + + + + | NRBC# | 0.00 | 0.00 - 0.02 | [facility] | | | | | K/cu mm | LABORATORY | | | | | | SERVICES, | | | | | | CORE | | + + + + + + + + | Specimen | + + | Blood - Blood | | (substance) | + + + + + + + | Performing | Address | City/State/Zipcode | Phone Number | | Organization | | | | + + + + + | [facility] | [address] | [place] [address] | | | SERVICES, CORE | [address] | | | + + + + + BASIC METABOLIC SET (NA, K, CL, TCO2, BUN, CR, GLU, CA) (06/05/2018 8:05 AM PST) + +---------+ + + + | Component | Value | Ref Range | Performed | Pathologist | | | | | At | Signature | + +---------+ + + + | GLUCOSE, | 96 | 70 - 99 mg/dL | [facility] | | | PLASMA | | | LABORATORY | | | (LAB) | | | SERVICES, | | | | | | CORE | | + +---------+ + + + | BUN, PLASMA | 16 | 6 - 20 mg/dL | [facility] | | | (LAB) | | | LABORATORY | | | | | | SERVICES, | | | | | | CORE | | + +---------+ + + + | CREATININE | 0.71 | 0.70 - 1.30 | [facility] | | | PLASMA | | mg/dL | LABORATORY | | | (LAB) | | | SERVICES, | | | | | | CORE | | + +---------+ + + + | EGFR | >60 | >60 mL/min | [facility] | | | - | | | LABORATORY | | | [facility] | | | SERVICES, | | | | | | CORE | | + +---------+ + + + | EGFR NON | >60 | >60 mL/min | [facility] | | | -HORACIO | | | LABORATORY | | | RICAN | | | SERVICES, | | | | | | CORE | | + +---------+ + + + | SODIUM, | 137 | 136 - 145 | [facility] | | | PLASMA | | mmol/L | LABORATORY | | | (LAB) | | | SERVICES, | | | | | | CORE | | + +---------+ + + + | POTASSIUM, | 4.2 | 3.4 - 5.0 | [facility] | | | PLASMA | | mmol/L | LABORATORY | | | (LAB) | | | SERVICES, | | | | | | CORE | | + +---------+ + + + | CHLORIDE, | 100 | 97 - 108 mmol/L | [facility] | | | PLASMA | | | LABORATORY | | | (LAB) | | | SERVICES, | | | | | | CORE | | + +---------+ + + + | TOTAL CO2, | 29 | 21 - 32 mmol/L | [facility] | | | PLASMA | | | LABORATORY | | | (LAB) | | | SERVICES, | | | | | | CORE | | + +---------+ + + + | CALCIUM, | 8.2 (L) | 8.6 - 10.2 | [facility] | | | PLASMA | | mg/dL | LABORATORY | | | (LAB) | | | SERVICES, | | | | | | CORE | | + +---------+ + + + | ANION GAP | 8 | 4 - 11 mmol/L | [facility] | | | | | | LABORATORY | | | | | | SERVICES, | | | | | | CORE | | + +---------+ + + + | POTASSIUM | No Hemo | | [facility] | | | CMNT | | | LABORATORY | | | | | | SERVICES, | | | | | | CORE | | + +---------+ + + + + + | Specimen | + + | Blood - Blood | | (substance) | + + + + + | Narrative | Performed At | + + + | GFR is estimated using the MDRD equation recommended by the | [facility] | | National Kidney Disease Education Program. Estimated GFR | LABORATORY | | Interpretive Information: <60 mL/min/1.73 sq m | SERVICES, CORE | | Chronic Kidney Disease <15 mL/min/1.73 sq m | | | Kidney Failure Estimated GFR greater than 60 mL/min/1.73 sq m is of | | | limited clinical value. The MDRD equation is not valid in the | | | following situations: - Patients under 18 years of age - Severe | | | malnutrition or obesity - Vegetarian diet - Rapidly changing kidney | | | function - Amputees, paraplegics, or other muscle-wasting diseses | | + + + + + + + + | Performing | Address | City/State/Zipcode | Phone Number | | Organization | | | | + + + + + | [facility] [place] [facility] | [address] | [place] [address] | | | [place], [place] | [address] | | | + + + + + CARDIOLOGY (06/05/2018 12:00 AM PST) + + + | Narrative | Performed At | + + + | | | + + + CARDIOLOGY (06/05/2018 12:00 AM PST) + + + | Narrative | Performed At | + + + | | | + + + CARDIOLOGY (06/05/2018 12:00 AM PST) + + + | Narrative | Performed At | + + + | | | + + + VITAMIN D, 25-HYDROXY, SERUM (06/04/2018 8:18 PM PST) + +---------+ + + + | Component | Value | Ref Range | Performed | Pathologist | | | | | At | Signature | + +---------+ + + + | VITAMIN D | 8.1 (L) | 30 - 80 ng/mL | [facility] | | | 25 HYDROXY | | | LABORATORY | | | | | | SERVICES, | | | | | | CORE | | + +---------+ + + + + + | Specimen | + + | Blood - Blood | | (substance) | + + + + + | Narrative | Performed At | + + + | Reference Interval: 0-18years: Deficiency: <20 ng/mL | [facility] | | Optimum level: >or=20 ng/mL | LABORATORY | | >18years: Deficiency: <20 | SERVICES, CORE | | ng/mL Insufficiency: 20-29 ng/mL | | | Optimum Level: 30-80 ng/mL High: | | | 81-150 ng/ml Toxic: >150 ng/mL | | + + + + + + + + | Performing | Address | City/State/Zipcode | Phone Number | | Organization | | | | + + + + + | [facility] | [id number] | [place] [address] | | | SERVICES, CORE | [address] | | | + + + + + CBC (HEMOGRAM) ONLY (06/04/2018 3:17 PM PST) + + + + + + | Component | Value | Ref Range | Performed | Pathologist | | | | | At | Signature | + + + + + + | WHITE CELL | 8.76 | 3.50 - 10.80 | [facility] | | | COUNT | | K/cu mm | LABORATORY | | | | | | SERVICES, | | | | | | CORE | | + + + + + + | RED CELL | 4.36 (L) | 4.50 - 6.00 | [facility] | | | COUNT | | M/cu mm | LABORATORY | | | | | | SERVICES, | | | | | | CORE | | + + + + + + | HEMOGLOBIN | 12.9 (L) | 13.5 - 17.5 | [facility] | | | | | g/dL | LABORATORY | | | | | | SERVICES, | | | | | | CORE | | + + + + + + | HEMATOCRIT | 39.7 (L) | 41.0 - 53.0 % | [facility] | | | | | | LABORATORY | | | | | | SERVICES, | | | | | | CORE | | + + + + + + | MCV | 91.1 | 80.0 - 100.0 fL | [facility] | | | | | | LABORATORY | | | | | | SERVICES, | | | | | | CORE | | + + + + + + | MCHC | 32.5 | 32.0 - 36.0 | [facility] | | | | | g/dL | LABORATORY | | | | | | SERVICES, | | | | | | CORE | | + + + + + + | RDW SD | 43.6 | 35.1 - 46.3 fL | [facility] | | | | | | LABORATORY | | | | | | SERVICES, | | | | | | CORE | | + + + + + + | PLATELET | 150Comment: | 150 - 400 K/cu | [facility] | | | COUNT | Macroplatelets present. | mm | LABORATORY | | | | | | SERVICES, | | | | | | CORE | | + + + + + + | MPV | 13.2 (H) | 9.7 - 12.3 fL | [facility] | | | | | | LABORATORY | | | | | | SERVICES, | | | | | | CORE | | + + + + + + | NRBC% | 0.0 | 0.0 - 0.3 % | [facility] | | | | | | LABORATORY | | | | | | SERVICES, | | | | | | CORE | | + + + + + + | NRBC# | 0.00 | 0.00 - 0.02 | [facility] | | | | | K/cu mm | LABORATORY | | | | | | SERVICES, | | | | | | CORE | | + + + + + + + + | Specimen | + + | Blood - Blood | | (substance) | + + + + + + + | Performing | Address | City/State/Zipcode | Phone Number | | Organization | | | | + + + + + | [facility] | [address] | [place] [address] | | | SERVICES, CORE | [address] | | | + + + + + X-RAY PORTABLE 2 VIEW ABDOMEN (KUB AND UPRIGHT) (06/04/2018 2:32 PM PST) + + | Specimen | + + | | + + + + + | Narrative | Performed At | + + + | EXAM: VT 2 VIEW ABDOMEN (KUB AND UPRIGHT) History: nausea, | [facility] | | vomiting, abdominal pain. History of closed reduction and percutaneous | RADIOLOGY VOICE | | fixation of the left acetabulum yesterday. Comparison: CT pelvis | RECOGNITION 2 | | 06/03/2018 FINDINGS: There is gaseous distention of the stomach | | | and borderline gaseous distention of multiple loops of small and | | | large bowel, with moderate stool noted throughout the colon. No | | | pneumoperitoneum or evident pneumatosis. No abnormal soft tissue | | | calcifications. Cholecystectomy clips noted. Comminuted left | | | acetabular fracture in unchanged alignment, with 3 fixation screws | | | partially visualized. Left intertrochanteric hardware partially | | | visualized. IMPRESSION: Findings most consistent with ileus. | | | Postoperative changes of left acetabular fixation. I have | | | personally reviewed the images and, if necessary, edited the report. I | | | agree with the report as now presented. Final signature: Staci Field | | | MD Chris 06/04/2018 4:23 PM Preliminary: Francisco Sheldon MD | | | 06/04/2018 4:00 PM Dictation initiated: Francisco Sheldon MD 06/04/2018 | | | 2:41 PM | | + + + + + | Procedure Note | + + | Service Account, Push IO Res In Interface - 06/04/2018 4:24 PM PST EXAM: VT 2 VIEW | | ABDOMEN (KUB AND UPRIGHT) History: nausea, vomiting, abdominal pain. History of closed | | reduction and percutaneous fixation of the left acetabulum yesterday. Comparison: CT | | pelvis 06/03/2018 FINDINGS: There is gaseous distention of the stomach and borderline | | gaseous distention of multiple loops of small and large bowel, with moderate stool noted | | throughout the colon. No pneumoperitoneum or evident pneumatosis. No abnormal soft | | tissue calcifications. Cholecystectomy clips noted. Comminuted left acetabular fracture | | in unchanged alignment, with 3 fixation screws partially visualized. Left | | intertrochanteric hardware partially visualized. IMPRESSION: Findings most consistent | | with ileus. Postoperative changes of left acetabular fixation. I have personally | | reviewed the images and, if necessary, edited the report. I agree with the report as now | | presented. Final signature: Staci Perez MD 06/04/2018 4:23 PM Preliminary: | | Francisco Sheldon MD 06/04/2018 4:00 PM Dictation initiated: Francisco Sheldon MD 06/04/2018 | | 2:41 PM | | | |Postoperative changes of left acetabular fixation. | | | |I have personally reviewed the images and, if necessary, edited the report. I agree with th e report as now presented. | | | |Final signature: Staci Perez MD 06/04/2018 4:23 PM | |Preliminary: Francisco Sheldon MD 06/04/2018 4:00 PM | |Dictation initiated: Francisco Sheldon MD 06/04/2018 2:41 PM | + + + +---------+ + + | Performing | Address | City/State/Zipcode | Phone Number | | Organization | | | | + +---------+ + + | [facility] | | | | | VOICE RECOGNITION 2 | | | | + +---------+ + + CBC (HEMOGRAM) ONLY (06/04/2018 9:37 AM PST) + + + + + + | Component | Value | Ref Range | Performed | Pathologist | | | | | At | Signature | + + + + + + | WHITE CELL | 8.46 | 3.50 - 10.80 | [facility] | | | COUNT | | K/cu mm | LABORATORY | | | | | | SERVICES, | | | | | | CORE | | + + + + + + | RED CELL | 3.97 (L) | 4.50 - 6.00 | [facility] | | | COUNT | | M/cu mm | LABORATORY | | | | | | SERVICES, | | | | | | CORE | | + + + + + + | HEMOGLOBIN | 11.8 (L) | 13.5 - 17.5 | [facility] | | | | | g/dL | LABORATORY | | | | | | SERVICES, | | | | | | CORE | | + + + + + + | HEMATOCRIT | 35.7 (L) | 41.0 - 53.0 % | [facility] | | | | | | LABORATORY | | | | | | SERVICES, | | | | | | CORE | | + + + + + + | MCV | 89.9 | 80.0 - 100.0 fL | [facility] | | | | | | LABORATORY | | | | | | SERVICES, | | | | | | CORE | | + + + + + + | MCHC | 33.1 | 32.0 - 36.0 | [facility] | | | | | g/dL | LABORATORY | | | | | | SERVICES, | | | | | | CORE | | + + + + + + | RDW SD | 43.2 | 35.1 - 46.3 fL | [facility] | | | | | | LABORATORY | | | | | | SERVICES, | | | | | | CORE | | + + + + + + | PLATELET | 120 (L) | 150 - 400 K/cu | [facility] | | | COUNT | | mm | LABORATORY | | | | | | SERVICES, | | | | | | CORE | | + + + + + + | MPV | 13.1 (H) | 9.7 - 12.3 fL | [facility] | | | | | | LABORATORY | | | | | | SERVICES, | | | | | | CORE | | + + + + + + | NRBC% | 0.0 | 0.0 - 0.3 % | [facility] | | | | | | LABORATORY | | | | | | SERVICES, | | | | | | CORE | | + + + + + + | NRBC# | 0.00 | 0.00 - 0.02 | [facility] | | | | | K/cu mm | LABORATORY | | | | | | SERVICES, | | | | | | CORE | | + + + + + + + + | Specimen | + + | Blood - Blood | | (substance) | + + + + + + + | Performing | Address | City/State/Zipcode | Phone Number | | Organization | | | | + + + + + | [facility] | [address] | [place] [address] | | | SERVICES, CORE | [address] | | | + + + + + APTT (ACT. PART. THROMBO TIME) (06/04/2018 9:37 AM PST) + +-------+ + + + | Component | Value | Ref Range | Performed | Pathologist | | | | | At | Signature | + +-------+ + + + | APTT | 34.1 | 26.0 - 36.0 | [facility] | | | | | seconds | LABORATORY | | | | | | SERVICES, | | | | | | CORE | | + +-------+ + + + + + | Specimen | + + | Blood - Blood | | (substance) | + + + + + | Narrative | Performed At | + + + | APTT values for monitoring heparin therapy may be affected by | [facility] | | specimens processed >1 hour after collection. APTT Therapeutic | LABORATORY | | Range: (75 - 120) sec Heparin | SERVICES, CORE | | levels of 0.35 - 0.7 U/mL | | + + + + + + + + | Performing | Address | City/State/Zipcode | Phone Number | | Organization | | | | + + + + + | [facility] | [address] | [place] [address] | | | SERVICES, CORE | [address] | | | + + + + + INR (06/04/2018 9:37 AM PST) + +-------+ + + + | Component | Value | Ref Range | Performed | Pathologist | | | | | At | Signature | + +-------+ + + + | INR | 1.04 | 0.90 - 1.20 INR | [facility] | | | | | | LABORATORY | | | | | | SERVICES, | | | | | | CORE | | + +-------+ + + + + + | Specimen | + + | Blood - Blood | | (substance) | + + + + + | Narrative | Performed At | + + + | INR Therapeutic ranges for full anticoagulation: INR for | [facility] | | Venous Thromboembolism (2.0 - 3.0) INR INR for | LABORATORY | | most patients with mech. valves (2.5 - 3.5) INR | SERVICES, CORE | + + + + + + + + | Performing | Address | City/State/Zipcode | Phone Number | | Organization | | | | + + + + + | [facility] | [phone] | [place] [address] | | | SERVICES, CORE | [address] | | | + + + + + BASIC METABOLIC SET (NA, K, CL, TCO2, BUN, CR, GLU, CA) (06/04/2018 9:37 AM PST) + + + + + + | Component | Value | Ref Range | Performed | Pathologist | | | | | At | Signature | + + + + + + | GLUCOSE, | 134 (H) | 70 - 99 mg/dL | [facility] | | | PLASMA | | | LABORATORY | | | (LAB) | | | SERVICES, | | | | | | CORE | | + + + + + + | BUN, PLASMA | 18 | 6 - 20 mg/dL | [facility] | | | (LAB) | | | LABORATORY | | | | | | SERVICES, | | | | | | CORE | | + + + + + + | CREATININE | 0.58 (L) | 0.70 - 1.30 | [facility] | | | PLASMA | | mg/dL | LABORATORY | | | (LAB) | | | SERVICES, | | | | | | CORE | | + + + + + + | EGFR | >60 | >60 mL/min | [facility] | | | - | | | LABORATORY | | | TANZANIAN | | | SERVICES, | | | | | | CORE | | + + + + + + | EGFR NON | >60 | >60 mL/min | [facility] | | | -HORACIO | | | LABORATORY | | | RICAN | | | SERVICES, | | | | | | CORE | | + + + + + + | SODIUM, | 134 (L) | 136 - 145 | [facility] | | | PLASMA | | mmol/L | LABORATORY | | | (LAB) | | | SERVICES, | | | | | | CORE | | + + + + + + | POTASSIUM, | 4.2 | 3.4 - 5.0 | [facility] | | | PLASMA | | mmol/L | LABORATORY | | | (LAB) | | | SERVICES, | | | | | | CORE | | + + + + + + | CHLORIDE, | 98 | 97 - 108 mmol/L | [facility] | | | PLASMA | | | LABORATORY | | | (LAB) | | | SERVICES, | | | | | | CORE | | + + + + + + | TOTAL CO2, | 29 | 21 - 32 mmol/L | [facility] | | | PLASMA | | | LABORATORY | | | (LAB) | | | SERVICES, | | | | | | CORE | | + + + + + + | CALCIUM, | 8.0 (L) | 8.6 - 10.2 | [facility] | | | PLASMA | | mg/dL | LABORATORY | | | (LAB) | | | SERVICES, | | | | | | CORE | | + + + + + + | ANION GAP | 7 | 4 - 11 mmol/L | [facility] | | | | | | LABORATORY | | | | | | SERVICES, | | | | | | CORE | | + + + + + + | POTASSIUM | No Hemo | | [facility] | | | CMNT | | | LABORATORY | | | | | | SERVICES, | | | | | | CORE | | + + + + + + + + | Specimen | + + | Blood - Blood | | (substance) | + + + + + | Narrative | Performed At | + + + | GFR is estimated using the MDRD equation recommended by the | [facility] | | National Kidney Disease Education Program. Estimated GFR | LABORATORY | | Interpretive Information: <60 mL/min/1.73 sq m | SERVICES, CORE | | Chronic Kidney Disease <15 mL/min/1.73 sq m | | | Kidney Failure Estimated GFR greater than 60 mL/min/1.73 sq m is of | | | limited clinical value. The MDRD equation is not valid in the | | | following situations: - Patients under 18 years of age - Severe | | | malnutrition or obesity - Vegetarian diet - Rapidly changing kidney | | | function - Amputees, paraplegics, or other muscle-wasting diseses | | + + + + + + + + | Performing | Address | City/State/Zipcode | Phone Number | | Organization | | | | + + + + + | [facility] | [address] | [place] [address] | | | SERVICES, CORE | [address] | | | + + + + + CARDIOLOGY (06/04/2018 12:00 AM PST) + + + | Narrative | Performed At | + + + | | | + + + CARDIOLOGY (06/04/2018 12:00 AM PST) + + + | Narrative | Performed At | + + + | | | + + + CARDIOLOGY (06/04/2018 12:00 AM PST) + + + | Narrative | Performed At | + + + | | | + + + PROCEDURE NOTE (06/03/2018 11:00 PM PST)CT PELVIS WO IV CONTRAST (06/03/2018 10:07 PM PST) + + | Specimen | + + | | + + + + + | Narrative | Performed At | + + + | EXAM: CT PELVIS WO CONTRAST HISTORY: post reduction assessment | [facility] | | COMPARISON: Pelvis radiographs from 05/31/[address] from | RADIOLOGY VOICE | | 05/30/2018. TECHNIQUE: Non-contrast axial CT images of the pelvis | RECOGNITION 2 | | were acquired. Sagittal and coronal reformations were completed. No IV | | | contrast was administered. FINDINGS: The bones are diffusely | | | osteopenic. There is a comminuted fracture of the left acetabulum | | | status post internal fixation, with improved alignment. The | | | transfixing screws are intact, without breakage or evidence for other | | | complication. As seen previously, there is an additional minimally | | | displaced fracture of the inferior pubic ramus superimposed on a | | | chronic fracture deformity, which is in unchanged alignment. The left | | | proximal femoral intertrochanteric fracture is in unchanged alignment, | | | with intact left lateral compression plate and dynamic head/neck | | | screw. The left hip alignment is anatomic. The pubic symphysis | | | and sacroiliac joints are intact. There is a large left sacroiliac | | | bridging osteophyte. Defect within the left posterior iliac bone | | | likely represents sequelae of prior bone graft harvesting site. No new | | | fractures are seen. New presacral edema likely represents layering | | | hemorrhage and fluid. There are severe atherosclerotic vascular | | | calcifications of the aortoiliac vessels. Asymmetric enlargement of | | | the left obturator internus muscle is unchanged. IMPRESSION: | | | 1. Improved alignment of the comminuted left acetabular fracture | | | status post internal fixation, with intact hardware. 2. Unchanged | | | alignment of a mildly displaced left inferior pubic ramus fracture. | | | 3. Healed left proximal femoral intertrochanteric fracture with | | | intact transfixing hardware. I have personally reviewed the images | | | and, if necessary, edited the report. I agree with the report as now | | | presented. Final signature: Lachelle Lobo MD 06/04/2018 | | | 4:41 PM Preliminary: Venu Joshi MD 06/04/2018 9:02 AM Dictation | | | initiated: Venu Joshi MD 06/04/2018 8:05 AM | | + + + + + | Procedure Note | + + | Service Account, Radiant Res In Interface - 06/04/2018 4:42 PM PST EXAM: CT PELVIS | | WO CONTRAST HISTORY: post reduction assessment COMPARISON: Pelvis radiographs from | | 05/31/[address] from 05/30/2018. TECHNIQUE: Non-contrast axial CT images of the pelvis | | were acquired. Sagittal and coronal reformations were completed. No IV contrast was | | administered. FINDINGS: The bones are diffusely osteopenic. There is a comminuted | | fracture of the left acetabulum status post internal fixation, with improved alignment. | | The transfixing screws are intact, without breakage or evidence for other complication. | | As seen previously, there is an additional minimally displaced fracture of the inferior | | pubic ramus superimposed on a chronic fracture deformity, which is in unchanged | | alignment. The left proximal femoral intertrochanteric fracture is in unchanged | | alignment, with intact left lateral compression plate and dynamic head/neck screw. The | | left hip alignment is anatomic. The pubic symphysis and sacroiliac joints are intact. | | There is a large left sacroiliac bridging osteophyte. Defect within the left posterior | | iliac bone likely represents sequelae of prior bone graft harvesting site. No new | | fractures are seen. New presacral edema likely represents layering hemorrhage and fluid. | | There are severe atherosclerotic vascular calcifications of the aortoiliac vessels. | | Asymmetric enlargement of the left obturator internus muscle is unchanged. IMPRESSION: | | 1. Improved alignment of the comminuted left acetabular fracture status post internal | | fixation, with intact hardware. 2. Unchanged alignment of a mildly displaced left | | inferior pubic ramus fracture. 3. Healed left proximal femoral intertrochanteric | | fracture with intact transfixing hardware. I have personally reviewed the images and, if | | necessary, edited the report. I agree with the report as now presented. Final | | signature: Lachelle Lobo MD 06/04/2018 4:41 PM Preliminary: Venu Joshi MD | | 06/04/2018 9:02 AM Dictation initiated: Venu Joshi MD 06/04/2018 8:05 AM | |3. Healed left proximal femoral intertrochanteric fracture with intact transfixing hardware . | | | |I have personally reviewed the images and, if necessary, edited the report. I agree with th e report as now presented. | | | |Final signature: Lachelle Lobo MD 06/04/2018 4:41 PM | |Preliminary: Venu Joshi MD 06/04/2018 9:02 AM | |Dictation initiated: Venu Joshi MD 06/04/2018 8:05 AM | + + + +---------+ + + | Performing | Address | City/State/Zipcode | Phone Number | | Organization | | | | + +---------+ + + | [facility] | | | | | VOICE RECOGNITION 2 | | | | + +---------+ + + OPERATION RECORD (06/03/2018 4:58 PM PST) + + | Procedure Note | + + | Nguyễn Shepard MD - 06/03/2018 4:58 PM PST Date of Service: 06/03/2018 | | Attending Surgeon: Nguyễn Shepard MD Clinical Rehabilitation Coordinator(s): Devendra Allen | | MD Avinash. Preoperative Diagnosis: Left anterior column | | posterior hemitransverse acetabular fracture (involving 2 columns).Postoperative | | Diagnosis: Left anterior column posterior hemitransverse acetabular fracture (involving | | 2 columns).Procedure Performed: Closed reduction and percutaneous fixation of the left | | acetabulum.Anesthesia Type: General.Blood Loss: 100 cc.Intravenous Fluids: See | | anesthesia record.Urine Output: See anesthesia record.Tourniquet Time: | | None.Complications: None immediately apparent.Orthopedic Implants: Synthes 6.5 and 7.3 | | mm screws.Specimens: None.Drains: None.Findings In Brief: Reduce-able | | acetabulum.Operating Room Disposition: Transferred from the OR in stable | | condition.Indications: William Burns is an 83-year-old male. He sustained a left | | anterior column posterior kojo transverse acetabular fracture over the weekend. I met | | him on Sunday and we discussed the need for surgery but needing a specialized surgical | | solution. He has a number of displaced fracture lines within the articular surface - | | it would not have broken like this if he didn't already have hip hardware in place on | | the left as he would have sustained a hip fracture instead of an acetabular fracture. | | He is a man with a number of medical comorbidities, and I think it will be difficult for | | him to sustain a full acetabular operation due to the blood loss. As such, we are | | going to attempt to do him percutaneously. He understands and has consented. He | | understands that the risks of the operation today include nonunion, malunion, loss of | | reduction, breakage of hardware, need for repeat surgery, and infection, and the risks | | of anesthesia including . He consented.Description Of Procedure: William was | | brought back to the operative table. General endotracheal anesthesia was induced. He | | was transferred to the [facility]. A sacral bump consisting of 5 squared off sheets | | and packed down was placed underneath the sacrum to elevate the limb. He was prepped | | and draped in the normal sterile fashion while maintaining that we would be able to | | access the posterior column to the ischial tuberosity during the case. A time-out was | | performed in accordance with protocol. We began by performing a few AP inlet and outlet | | fluoroscopy shots to verify whether the joint could be improved in its reduction. We | | pulled simple manual traction on the leg just as a test, and we were able to demonstrate | | that we could reduce his medialized femoral head at the acetabulum with the femoral | | head. As such, we placed distal femoral traction consisting of a skinny wire hung off | | sterile rope with 30 pounds of traction placed. This reduced the acetabulum quite | | nicely. We did not need additional femoral neck traction, and I did not think it would | | be worth it. We would perhaps have been able to improve 1 mm in his joint, but we would | | have had to thread a pin through the DHS site. We were able to start with our anterior | | column screw. The anterior column screw was obtained using the inlet imaging and the | | obturator oblique outlet imaging on fluoroscopy. We were able to place a cannulated | | wire across and past the acetabulum, and we measured 160 mm screw length and we placed a | | 6.5 mm screw of that length. Fluoroscopy confirmed we stayed out of the joint. We | | then proceeded to the IS for the start point for the LC2 screw. The start point was | | obtained on the obturator oblique outlet, and then we used the 2 orthogonal views of the | | iliac oblique and an obturator oblique inlet to verify wire placement. This wire was | | placed essentially down between the inner and outer tables of the iliac wing and seated | | in the PIIS posteriorly. Once we passed this wire, we were able to measure a length of | | 135 mm, and I placed a 7.3 mm fully-threaded cannulated screw here. We then took | | traction off and verified that the fracture did not displace. We then placed a | | posterior column screw through a posterior starting point. We flexed the hip up and | | placed the start point on the ischial tuberosity. I used 2 views again after the screw | | including the iliac oblique and the obturator oblique outlet. It certainly made things | | easier to have C-arm come in from the contralateral limb specifically for this iliac | | oblique imaging. We were able to safely place a wire behind the acetabulum and up the | | entirety of the posterior column, and I measured 160 mm. I placed a fully-threaded 7.3 | | mm screw in this corridor. We then laid the patient flat and took final imaging | | including 5 views of the left acetabulum. All counts were correct. I was present for | | all portions of the case. We then irrigated all 3 small percutaneous wounds and closed | | using buried 2-0 Maxon and Dermabond. Mepilex was placed on all 3 incisions. The | | patient was awoken from general endotracheal anesthesia and transferred to the hospital | | bed and wheeled to the PACU in stable condition.Future Plans: William is going to be | | nonweightbearing on this left lower extremity for approximately 4 weeks. I am going to | | let him weightbear after that. We are going to have a discussion with Medicine about | | the risks and benefits of anticoagulation. Normally, we anticoagulate prophylactically | | for 6 weeks after pelvis and acetabular fractures, but he is a little on the elderly | | side and I am concerned about his head bleed risk. Finally, we are going to get a | | postop CT to evaluate the position of our screws. I am going to see him in followup in | | 4 weeks, at which time we will make our final consideration of mobilization and I need | | for this patient 5 views of the pelvis including AP, inlet, outlet, and 2 Judet | | views.Complexity note: Please note the care of this patient is far more difficult than a | | standard acetabular fracture. The patient has complicated care needs affecting the | | pre-, intra- and post- operative phases of care. He is a medically complicated patient | | with CHF, afib/flutter requiring telemetry with runs of Vtach intermittently on the | | floor. Due to the complexity of the problem was referred to my care at [facility] [place] by another | | orthopaedic surgeon. The patient is from [facility] and traveled many miles to | | get to [facility] [place], bypassing several other hospitals due to the complexity of injury and need | | for specialized care. This requirede additional preoperative care and planning to be | | ready for surgery today. We are not able to fix this in a standard fashion using | | conventional open reduction techniques out of concern for this man's inability to | | sustain an open operation given his cardiac condition and the high risk of | | intraoperative complication. We therefore used highly technical percutaneous techniques | | for which surgeons have to attend perhaps one of a handful of specialized orthopaedic | | trauma fellowships to learn. The technique requires quite a long time to ensure that it | | is done safely without further damage to the joint surface. The pateint has limited | | mobility postoperatively making postop care more difficult to render, and is quite | | noncompliant due to a combination of dementia and stubbornness which increases the risk | | of post operative complication dramatically. Please reflect all of this in the nature | | of the patients care.SHAVONNE Altamirano/JUNIOR: 06/03/2018 14:26:09DT: | | 06/03/2018 16:58:33Job #: [id number] | + + MAGNESIUM, PLASMA (06/03/2018 4:37 PM PST) + +-------+ + + + | Component | Value | Ref Range | Performed | Pathologist | | | | | At | Signature | + +-------+ + + + | MAGNESIUM,P | 1.9 | 1.6 - 2.6 mg/dL | [facility] | | | LASMA | | | LABORATORY | | | | | | SERVICES, | | | | | | CORE | | + +-------+ + + + + + | Specimen | + + | Blood - Blood | | (substance) | + + + + + + + | Performing | Address | City/State/Zipcode | Phone Number | | Organization | | | | + + + + + | [facility] [place] [facility] | [address] | [place] [address] | | | SERVICES, CORE | [address] | | | + + + + + 12 LEAD ECG (06/03/2018 4:20 PM PST) + + + + + + | Component | Value | Ref Range | Performed | Pathologist | | | | | At | Signature | + + + + + + | VENTRICULAR | 67 | bpm | [facility] | | | RATE | | | OF | | | | | | CARDIOLOGY | | + + + + + + | ATRIAL RATE | 70 | ms | [facility] | | | | | | OF | | | | | | CARDIOLOGY | | + + + + + + | P-R | 184 | ms | [facility] | | | INTERVAL | | | OF | | | | | | CARDIOLOGY | | + + + + + + | P AXIS | 90 | deg | [facility] | | | | | | OF | | | | | | CARDIOLOGY | | + + + + + + | QRS | 136 | ms | [facility] | | | DURATION | | | OF | | | | | | CARDIOLOGY | | + + + + + + | QT | 447 | ms | [facility] | | | | | | OF | | | | | | CARDIOLOGY | | + + + + + + | QTC-BAZETT | 472 | ms | [facility] | | | | | | OF | | | | | | CARDIOLOGY | | + + + + + + | R AXIS | 88 | deg | [facility] | | | | | | OF | | | | | | CARDIOLOGY | | + + + + + + | T AXIS | 44 | deg | [facility] | | | | | | OF | | | | | | CARDIOLOGY | | + + + + + + | ECG | Sinus arrhythmia | | [facility] | | | IMPRESSION | | | OF | | | | | | CARDIOLOGY | | + + + + + + | ECG | Right bundle branch | | [facility] | | | IMPRESSION | block- ABNORMAL ECG - | | OF | | | | | | CARDIOLOGY | | + + + + + + | ECG | Electronically signed | | [facility] | | | IMPRESSION | by: WINDY ROWELL | | OF | | | | 06-03-2018 20:54:04 | | CARDIOLOGY | | + + + + + + + + | Specimen | + + | | + + + + + | Narrative | Performed At | + + + | | | + + + + + + + + | Performing | Address | City/State/Zipcode | Phone Number | | Organization | | | | + + + + + | [facility] | [address] | [place], [place] | | | CARDIOLOGY | [address] | [address] | | + + + + + CAPILLARY BLOOD GLUCOSE (NO CHG), POC (06/03/2018 2:50 PM PST) + +---------+ + + + | Component | Value | Ref Range | Performed | Pathologist | | | | | At | Signature | + +---------+ + + + | BLOOD | 132 (H) | 60 - 99 mg/dL | [facility] | | | GLUCOSE, | | | [facility] | | | POC | | | [facility] | | | | | | [facility] | | | | | | TESTS | | + +---------+ + + + + + | Specimen | + + | | + + + + + + + | Performing | Address | City/State/Zipcode | Phone Number | | Organization | | | | + + + + + | [facility] | [address] | [place], [place] | | | [facility] [place] | [address] | [address] | | | TESTS | | | | + + + + + X-RAY PELVIS 4+ VIEWS (06/03/2018 2:05 PM PST) + + | Specimen | + + | | + + + + + | Narrative | Performed At | + + + | - At the time of the study, no professional interpretation was | | | requested. - | | + + + CAPILLARY BLOOD GLUCOSE (NO CHG), POC (06/03/2018 11:01 AM PST) + +---------+ + + + | Component | Value | Ref Range | Performed | Pathologist | | | | | At | Signature | + +---------+ + + + | BLOOD | 115 (H) | 60 - 99 mg/dL | [facility] | | | GLUCOSE, | | | [facility] | | | POC | | | [facility] | | | | | | OF CARE | | | | | | TESTS | | + +---------+ + + + + + | Specimen | + + | | + + + + + + + | Performing | Address | City/State/Zipcode | Phone Number | | Organization | | | | + + + + + | [facility] | [address] | [place], [place] | | | [facility] | [address] | [address] | | | TESTS | | | | + + + + + CBC (HEMOGRAM) ONLY (06/03/2018 6:51 AM PST) + + + + + + | Component | Value | Ref Range | Performed | Pathologist | | | | | At | Signature | + + + + + + | WHITE CELL | 10.86 (H) | 3.50 - 10.80 | [facility] | | | COUNT | | K/cu mm | LABORATORY | | | | | | SERVICES, | | | | | | CORE | | + + + + + + | RED CELL | 4.38 (L) | 4.50 - 6.00 | [facility] | | | COUNT | | M/cu mm | LABORATORY | | | | | | SERVICES, | | | | | | CORE | | + + + + + + | HEMOGLOBIN | 13.1 (L) | 13.5 - 17.5 | [facility] | | | | | g/dL | LABORATORY | | | | | | SERVICES, | | | | | | CORE | | + + + + + + | HEMATOCRIT | 39.9 (L) | 41.0 - 53.0 % | [facility] | | | | | | LABORATORY | | | | | | SERVICES, | | | | | | CORE | | + + + + + + | MCV | 91.1 | 80.0 - 100.0 fL | [facility] | | | | | | LABORATORY | | | | | | SERVICES, | | | | | | CORE | | + + + + + + | MCHC | 32.8 | 32.0 - 36.0 | [facility] | | | | | g/dL | LABORATORY | | | | | | SERVICES, | | | | | | CORE | | + + + + + + | RDW SD | 42.7 | 35.1 - 46.3 fL | [facility] | | | | | | LABORATORY | | | | | | SERVICES, | | | | | | CORE | | + + + + + + | PLATELET | 126 (L) | 150 - 400 K/cu | [facility] | | | COUNT | | mm | LABORATORY | | | | | | SERVICES, | | | | | | CORE | | + + + + + + | MPV | 12.3 | 9.7 - 12.3 fL | [facility] | | | | | | LABORATORY | | | | | | SERVICES, | | | | | | CORE | | + + + + + + | NRBC% | 0.0 | 0.0 - 0.3 % | [facility] | | | | | | LABORATORY | | | | | | SERVICES, | | | | | | CORE | | + + + + + + | NRBC# | 0.00 | 0.00 - 0.02 | [facility] | | | | | K/cu mm | LABORATORY | | | | | | SERVICES, | | | | | | CORE | | + + + + + + + + | Specimen | + + | Blood - Blood | | (substance) | + + + + + + + | Performing | Address | City/State/Zipcode | Phone Number | | Organization | | | | + + + + + | [facility] | [address] | [place] [address] | | | SERVICES, CORE | [address] | | | + + + + + BASIC METABOLIC SET (NA, K, CL, TCO2, BUN, CR, GLU, CA) (06/03/2018 6:51 AM PST) + + + + + + | Component | Value | Ref Range | Performed | Pathologist | | | | | At | Signature | + + + + + + | GLUCOSE, | 109 (H) | 70 - 99 mg/dL | [facility] | | | PLASMA | | | LABORATORY | | | (LAB) | | | SERVICES, | | | | | | CORE | | + + + + + + | BUN, PLASMA | 19 | 6 - 20 mg/dL | [facility] | | | (LAB) | | | LABORATORY | | | | | | SERVICES, | | | | | | CORE | | + + + + + + | CREATININE | 0.68 (L) | 0.70 - 1.30 | [facility] | | | PLASMA | | mg/dL | LABORATORY | | | (LAB) | | | SERVICES, | | | | | | CORE | | + + + + + + | EGFR | >60 | >60 mL/min | [facility] | | | - | | | LABORATORY | | | [facility] | | | SERVICES, | | | | | | CORE | | + + + + + + | EGFR NON | >60 | >60 mL/min | [facility] | | | -HORACIO | | | LABORATORY | | | RICAN | | | SERVICES, | | | | | | CORE | | + + + + + + | SODIUM, | 133 (L) | 136 - 145 | [facility] | | | PLASMA | | mmol/L | LABORATORY | | | (LAB) | | | SERVICES, | | | | | | CORE | | + + + + + + | POTASSIUM, | 4.3 | 3.4 - 5.0 | [facility] | | | PLASMA | | mmol/L | LABORATORY | | | (LAB) | | | SERVICES, | | | | | | CORE | | + + + + + + | CHLORIDE, | 100 | 97 - 108 mmol/L | [facility] | | | PLASMA | | | LABORATORY | | | (LAB) | | | SERVICES, | | | | | | CORE | | + + + + + + | TOTAL CO2, | 26 | 21 - 32 mmol/L | [facility] | | | PLASMA | | | LABORATORY | | | (LAB) | | | SERVICES, | | | | | | CORE | | + + + + + + | CALCIUM, | 8.2 (L) | 8.6 - 10.2 | [facility] | | | PLASMA | | mg/dL | LABORATORY | | | (LAB) | | | SERVICES, | | | | | | CORE | | + + + + + + | ANION GAP | 7 | 4 - 11 mmol/L | [facility] | | | | | | LABORATORY | | | | | | SERVICES, | | | | | | CORE | | + + + + + + | POTASSIUM | No Hemo | | [facility] | | | CMNT | | | LABORATORY | | | | | | SERVICES, | | | | | | CORE | | + + + + + + + + | Specimen | + + | Blood - Blood | | (substance) | + + + + + | Narrative | Performed At | + + + | GFR is estimated using the MDRD equation recommended by the | [facility] | | National Kidney Disease Education Program. Estimated GFR | LABORATORY | | Interpretive Information: <60 mL/min/1.73 sq m | SERVICES, CORE | | Chronic Kidney Disease <15 mL/min/1.73 sq m | | | Kidney Failure Estimated GFR greater than 60 mL/min/1.73 sq m is of | | | limited clinical value. The MDRD equation is not valid in the | | | following situations: - Patients under 18 years of age - Severe | | | malnutrition or obesity - Vegetarian diet - Rapidly changing kidney | | | function - Amputees, paraplegics, or other muscle-wasting diseses | | + + + + + + + + | Performing | Address | City/State/Zipcode | Phone Number | | Organization | | | | + + + + + | [facility] | [address] | [place] [address] | | | SERVICES, CORE | [address] | | | + + + + + CARDIOLOGY (06/03/2018 12:00 AM PST) + + + | Narrative | Performed At | + + + | | | + + + CARDIOLOGY (06/03/2018 12:00 AM PST) + + + | Narrative | Performed At | + + + | | | + + + CARDIOLOGY (06/03/2018 12:00 AM PST) + + + | Narrative | Performed At | + + + | | | + + + X-RAY CHEST 1 VIEW (06/02/2018 10:10 AM PST) + + | Specimen | + + | | + + + + + | Narrative | Performed At | + + + | EXAM: CHEST 1 VIEW HISTORY: COPD with hypoxia COMPARISON: | [facility] | | 06/27/2017 FINDINGS: The cardiomediastinal silhouette is | RADIOLOGY VOICE | | unchanged. Persistent flattening of the diaphragms consistent with | RECOGNITION 2 | | chronic obstructive pulmonary physiology. Scattered subsegmental | | | atelectasis. Increasing interstitial airspace opacities particularly | | | at the left upper lung zone. No significant pneumothorax or | | | pleural effusion. No acute osseous abnormalities. IMPRESSION: | | | Redemonstration of the sequela of COPD with increasing interstitial | | | airspace opacities particularly at the left upper lung zone. No | | | focal airspace consolidation. I have personally reviewed the | | | images and, if necessary, edited the report. I agree with the report | | | as now presented. Final signature: Fortino Denis MD | | | 06/02/2018 11:22 AM Preliminary: Fortino Denis MD | | | Dictation initiated: Fortino Denis MD 06/02/2018 11:20 AM | | + + + + + | Procedure Note | + + | Service Account, Radiant Res In Interface - 06/02/2018 11:23 AM PST EXAM: CHEST 1 | | VIEW HISTORY: COPD with hypoxia COMPARISON: 06/27/2017 FINDINGS: The cardiomediastinal | | silhouette is unchanged. Persistent flattening of the diaphragms consistent with chronic | | obstructive pulmonary physiology. Scattered subsegmental atelectasis. Increasing | | interstitial airspace opacities particularly at the left upper lung zone. No significant | | pneumothorax or pleural effusion. No acute osseous abnormalities. IMPRESSION: | | Redemonstration of the sequela of COPD with increasing interstitial airspace opacities | | particularly at the left upper lung zone. No focal airspace consolidation. I have | | personally reviewed the images and, if necessary, edited the report. I agree with the | | report as now presented. Final signature: Fortino Denis MD 06/02/2018 11:22 AM | | Preliminary: Fortino Denis MD Dictation initiated: Fortino Denis MD | | 06/02/2018 11:20 AM | |Scattered subsegmental atelectasis. Increasing interstitial airspace opacities particularly at the left upper lung zone. | | | |No significant pneumothorax or pleural effusion. No acute osseous abnormalities. | | | |IMPRESSION: | | | |Redemonstration of the sequela of COPD with increasing interstitial airspace opacities part icularly at the left upper lung zone. | | | |No focal airspace consolidation. | | | |I have personally reviewed the images and, if necessary, edited the report. I agree with th e report as now presented. | | | |Final signature: Fortino Denis MD 06/02/2018 11:22 AM | |Preliminary: Fortino Denis MD | |Dictation initiated: Fortino Denis MD 06/02/2018 11:20 AM | + + + +---------+ + + | Performing | Address | City/State/Zipcode | Phone Number | | Organization | | | | + +---------+ + + | [facility] | | | | | VOICE RECOGNITION 2 | | | | + +---------+ + + 12 LEAD ECG (06/02/2018 9:00 AM PST) + + + + + + | Component | Value | Ref Range | Performed | Pathologist | | | | | At | Signature | + + + + + + | VENTRICULAR | 78 | bpm | [facility] | | | RATE | | | OF | | | | | | CARDIOLOGY | | + + + + + + | ATRIAL RATE | 79 | ms | [facility] | | | | | | OF | | | | | | CARDIOLOGY | | + + + + + + | P-R | 177 | ms | [facility] | | | INTERVAL | | | OF | | | | | | CARDIOLOGY | | + + + + + + | P AXIS | 86 | deg | [facility] | | | | | | OF | | | | | | CARDIOLOGY | | + + + + + + | QRS | 139 | ms | [facility] | | | DURATION | | | OF | | | | | | CARDIOLOGY | | + + + + + + | QT | 425 | ms | [facility] | | | | | | OF | | | | | | CARDIOLOGY | | + + + + + + | QTC-MOIZTT | 484 | ms | [facility] | | | | | | OF | | | | | | CARDIOLOGY | | + + + + + + | R AXIS | 94 | deg | [facility] | | | | | | OF | | | | | | CARDIOLOGY | | + + + + + + | T AXIS | 56 | deg | [facility] | | | | | | OF | | | | | | CARDIOLOGY | | + + + + + + | ECG | Sinus rhythm | | [facility] | | | IMPRESSION | | | OF | | | | | | CARDIOLOGY | | + + + + + + | ECG | Atrial premature complex | | [facility] | | | IMPRESSION | | | OF | | | | | | CARDIOLOGY | | + + + + + + | ECG | Right bundle branch | | [facility] | | | IMPRESSION | block- ABNORMAL ECG - | | OF | | | | | | CARDIOLOGY | | + + + + + + | ECG | Electronically signed | | [facility] | | | IMPRESSION | by: ASHWINI RUEDA | | OF | | | | 06-02-2018 10:56:27 | | CARDIOLOGY | | + + + + + + + + | Specimen | + + | | + + + + + | Narrative | Performed At | + + + | | | + + + + + + + + | Performing | Address | City/State/Zipcode | Phone Number | | Organization | | | | + + + + + | [facility] | [address] | [place], [place] | | | CARDIOLOGY | [address] | [address] | | + + + + + MAGNESIUM, PLASMA (06/02/2018 6:19 AM PST) + +-------+ + + + | Component | Value | Ref Range | Performed | Pathologist | | | | | At | Signature | + +-------+ + + + | MAGNESIUM,P | 1.9 | 1.6 - 2.6 mg/dL | [facility] | | | LASMA | | | LABORATORY | | | | | | SERVICES, | | | | | | CORE | | + +-------+ + + + + + | Specimen | + + | Blood - Blood | | (substance) | + + + + + + + | Performing | Address | City/State/Zipcode | Phone Number | | Organization | | | | + + + + + | [facility] | [address] | [place] [address] | | | SERVICES, CORE | [address] | | | + + + + + CBC (HEMOGRAM) ONLY (06/02/2018 6:19 AM PST) + + + + + + | Component | Value | Ref Range | Performed | Pathologist | | | | | At | Signature | + + + + + + | WHITE CELL | 11.59 (H) | 3.50 - 10.80 | [facility] | | | COUNT | | K/cu mm | LABORATORY | | | | | | SERVICES, | | | | | | CORE | | + + + + + + | RED CELL | 4.25 (L) | 4.50 - 6.00 | [facility] | | | COUNT | | M/cu mm | LABORATORY | | | | | | SERVICES, | | | | | | CORE | | + + + + + + | HEMOGLOBIN | 12.8 (L) | 13.5 - 17.5 | [facility] | | | | | g/dL | LABORATORY | | | | | | SERVICES, | | | | | | CORE | | + + + + + + | HEMATOCRIT | 39.8 (L) | 41.0 - 53.0 % | [facility] | | | | | | LABORATORY | | | | | | SERVICES, | | | | | | CORE | | + + + + + + | MCV | 93.6 | 80.0 - 100.0 fL | [facility] | | | | | | LABORATORY | | | | | | SERVICES, | | | | | | CORE | | + + + + + + | MCHC | 32.2 | 32.0 - 36.0 | [facility] | | | | | g/dL | LABORATORY | | | | | | SERVICES, | | | | | | CORE | | + + + + + + | RDW SD | 44.9 | 35.1 - 46.3 fL | [facility] | | | | | | LABORATORY | | | | | | SERVICES, | | | | | | CORE | | + + + + + + | PLATELET | 90 (L) | 150 - 400 K/cu | [facility] | | | COUNT | | mm | LABORATORY | | | | | | SERVICES, | | | | | | CORE | | + + + + + + | MPV | 12.3 | 9.7 - 12.3 fL | [facility] | | | | | | LABORATORY | | | | | | SERVICES, | | | | | | CORE | | + + + + + + | NRBC% | 0.0 | 0.0 - 0.3 % | [facility] | | | | | | LABORATORY | | | | | | SERVICES, | | | | | | CORE | | + + + + + + | NRBC# | 0.00 | 0.00 - 0.02 | [facility] | | | | | K/cu mm | LABORATORY | | | | | | SERVICES, | | | | | | CORE | | + + + + + + + + | Specimen | + + | Blood - Blood | | (substance) | + + + + + + + | Performing | Address | City/State/Zipcode | Phone Number | | Organization | | | | + + + + + | [facility] | [address] | [place] [address] | | | SERVICES, CORE | [address] | | | + + + + + BASIC METABOLIC SET (NA, K, CL, TCO2, BUN, CR, GLU, CA) (06/02/2018 6:19 AM PST) + +---------+ + + + | Component | Value | Ref Range | Performed | Pathologist | | | | | At | Signature | + +---------+ + + + | GLUCOSE, | 119 (H) | 70 - 99 mg/dL | [facility] | | | PLASMA | | | LABORATORY | | | (LAB) | | | SERVICES, | | | | | | CORE | | + +---------+ + + + | BUN, PLASMA | 27 (H) | 6 - 20 mg/dL | [facility] | | | (LAB) | | | LABORATORY | | | | | | SERVICES, | | | | | | CORE | | + +---------+ + + + | CREATININE | 0.80 | 0.70 - 1.30 | [facility] | | | PLASMA | | mg/dL | LABORATORY | | | (LAB) | | | SERVICES, | | | | | | CORE | | + +---------+ + + + | EGFR | >60 | >60 mL/min | [facility] | | | - | | | LABORATORY | | | T[facility] | | | SERVICES, | | | | | | CORE | | + +---------+ + + + | EGFR NON | >60 | >60 mL/min | [facility] | | | -HORACIO | | | LABORATORY | | | RICAN | | | SERVICES, | | | | | | CORE | | + +---------+ + + + | SODIUM, | 134 (L) | 136 - 145 | [facility] | | | PLASMA | | mmol/L | LABORATORY | | | (LAB) | | | SERVICES, | | | | | | CORE | | + +---------+ + + + | POTASSIUM, | 4.1 | 3.4 - 5.0 | [facility] | | | PLASMA | | mmol/L | LABORATORY | | | (LAB) | | | SERVICES, | | | | | | CORE | | + +---------+ + + + | CHLORIDE, | 101 | 97 - 108 mmol/L | [facility] | | | PLASMA | | | LABORATORY | | | (LAB) | | | SERVICES, | | | | | | CORE | | + +---------+ + + + | TOTAL CO2, | 29 | 21 - 32 mmol/L | [facility] | | | PLASMA | | | LABORATORY | | | (LAB) | | | SERVICES, | | | | | | CORE | | + +---------+ + + + | CALCIUM, | 8.2 (L) | 8.6 - 10.2 | [facility] | | | PLASMA | | mg/dL | LABORATORY | | | (LAB) | | | SERVICES, | | | | | | CORE | | + +---------+ + + + | ANION GAP | 4 | 4 - 11 mmol/L | [facility] | | | | | | LABORATORY | | | | | | SERVICES, | | | | | | CORE | | + +---------+ + + + | POTASSIUM | No Hemo | | [facility] | | | CMNT | | | LABORATORY | | | | | | SERVICES, | | | | | | CORE | | + +---------+ + + + + + | Specimen | + + | Blood - Blood | | (substance) | + + + + + | Narrative | Performed At | + + + | GFR is estimated using the MDRD equation recommended by the | [facility] | | National Kidney Disease Education Program. Estimated GFR | LABORATORY | | Interpretive Information: <60 mL/min/1.73 sq m | SERVICES, CORE | | Chronic Kidney Disease <15 mL/min/1.73 sq m | | | Kidney Failure Estimated GFR greater than 60 mL/min/1.73 sq m is of | | | limited clinical value. The MDRD equation is not valid in the | | | following situations: - Patients under 18 years of age - Severe | | | malnutrition or obesity - Vegetarian diet - Rapidly changing kidney | | | function - Amputees, paraplegics, or other muscle-wasting diseses | | + + + + + + + + | Performing | Address | City/State/Zipcode | Phone Number | | Organization | | | | + + + + + | [facility] [place] [facility] | [address] | [place] [address] | | | SERVICES, CORE | [address] | | | + + + + + ANTIBODY SCREEN (06/02/2018 6:19 AM PST) + + + + + + | Component | Value | Ref Range | Performed | Pathologist | | | | | At | Signature | + + + + + + | Antibody | Negative | | [facility] | | | Screen | | | LABORATORY | | | | | | SERVICES, | | | | | | TRANSFUSION | | | | | | MEDICINE | | + + + + + + + + | Specimen | + + | Blood - Blood | | (substance) | + + + + + + + | Performing | Address | City/State/Zipcode | Phone Number | | Organization | | | | + + + + + | [facility] | [address] | [place] [address] | | | SERVICES, | [address] | | | | TRANSFUSION MEDICINE | | | | + + + + + ABO & RH TYPE (06/02/2018 6:19 AM PST) + + + + + + | Component | Value | Ref Range | Performed | Pathologist | | | | | At | Signature | + + + + + + | ABO Group | O | | [facility] | | | | | | LABORATORY | | | | | | SERVICES, | | | | | | TRANSFUSION | | | | | | MEDICINE | | + + + + + + | Rh Type | Positive | | [facility] | | | | | | LABORATORY | | | | | | SERVICES, | | | | | | TRANSFUSION | | | | | | MEDICINE | | + + + + + + + + | Specimen | + + | Blood - Blood | | (substance) | + + + + + + + | Performing | Address | City/State/Zipcode | Phone Number | | Organization | | | | + + + + + | [facility] | [address] | [place] [address] | | | SERVICES, | [address] | | | | TRANSFUSION MEDICINE | | | | + + + + + CARDIOLOGY (06/02/2018 12:00 AM PST) + + + | Narrative | Performed At | + + + | | | + + + CARDIOLOGY (06/02/2018 12:00 AM PST) + + + | Narrative | Performed At | + + + | | | + + + BLOOD GASES, VENOUS - LAB (06/01/2018 5:02 PM PST) + +---------+ + + + | Component | Value | Ref Range | Performed | Pathologist | | | | | At | Signature | + +---------+ + + + | PH VENOUS | 7.35 | 7.35 - 7.45 | [facility] | | | | | | LABORATORY | | | | | | SERVICES, | | | | | | CORE | | + +---------+ + + + | PCO2 VENOUS | 60 (H) | 35 - 50 mmHg | [facility] | | | | | | LABORATORY | | | | | | SERVICES, | | | | | | CORE | | + +---------+ + + + | PO2 VENOUS | 17 (L) | 30 - 55 mmHg | [facility] | | | | | | LABORATORY | | | | | | SERVICES, | | | | | | CORE | | + +---------+ + + + | HCO3 VENOUS | 32 (H) | 22 - 28 mmol/L | [facility] | | | | | | LABORATORY | | | | | | SERVICES, | | | | | | CORE | | + +---------+ + + + | BASE EXCESS | 5.2 (H) | -3.0 - 3.0 | [facility] | | | VENOUS | | mmol/L | LABORATORY | | | | | | SERVICES, | | | | | | CORE | | + +---------+ + + + | O2 SAT, | 23.6 | No range has | [facility] | | | VENOUS | | been | LABORATORY | | | | | established % | SERVICES, | | | | | | CORE | | + +---------+ + + + | TOTAL CO2 | 34 (H) | 23 - 29 mmol/L | [facility] | | | VENOUS | | | LABORATORY | | | | | | SERVICES, | | | | | | CORE | | + +---------+ + + + + + | Specimen | + + | Blood - Blood | | (substance) | + + + + + + + | Performing | Address | City/State/Zipcode | Phone Number | | Organization | | | | + + + + + | [facility] | [address] | [place] [address] | | | SERVICES, [place] | [address] | | | + + + + + X-RAY KNEE 2 VIEWS LEFT (06/01/2018 11:48 AM PST) + + | Specimen | + + | | + + + + + | Narrative | Performed At | + + + | EXAM: KNEE 2 VIEWS LEFT HISTORY: eval traction pin placement | [facility] [place] | | COMPARISON: None. FINDINGS/IMPRESSION: Interval placement of | RADIOLOGY VOICE | | a traction pin through the anterior aspect distal femoral metaphysis. | RECOGNITION 2 | | The hardware is intact. The bones are diffusely osteopenic without | | | identification of acute fracture. Small knee joint effusion. I | | | have personally reviewed the images and, if necessary, edited the | | | report. I agree with the report as now presented. Final | | | signature: Fortino Denis MD 06/01/2018 6:02 PM Preliminary: | | | Fortino Denis MD Dictation initiated: Fortino Denis MD | | | 06/01/2018 6:01 PM | | + + + + + | Procedure Note | + + | Service Account, Radiant Res In Interface - 06/01/2018 6:04 PM PST EXAM: KNEE 2 | | VIEWS LEFT HISTORY: eval traction pin placement COMPARISON: None. FINDINGS/IMPRESSION: | | Interval placement of a traction pin through the anterior aspect distal femoral | | metaphysis. The hardware is intact. The bones are diffusely osteopenic without | | identification of acute fracture. Small knee joint effusion. I have personally reviewed | | the images and, if necessary, edited the report. I agree with the report as now | | presented. Final signature: Fortino Denis MD 06/01/2018 6:02 PM Preliminary: Fortino Denis MD Dictation initiated: Fortino Denis MD 06/01/2018 6:01 PM | |Interval placement of a traction pin through the anterior aspect distal femoral metaphysis. The hardware is intact. | | | |The bones are diffusely osteopenic without identification of acute fracture. Small knee suzi nt effusion. | | | |I have personally reviewed the images and, if necessary, edited the report. I agree with th e report as now presented. | | | |Final signature: Fortino Denis MD 06/01/2018 6:02 PM | |Preliminary: Fortino Denis MD | |Dictation initiated: Fortino Denis MD 06/01/2018 6:01 PM | + + + +---------+ + + | Performing | Address | City/State/Zipcode | Phone Number | | Organization | | | | + +---------+ + + | [facility] | | | | | [facility] RECOGNITION [facility] | | | | + +---------+ + + CBC (HEMOGRAM) ONLY (06/01/2018 10:27 AM PST) + + + + + + | Component | Value | Ref Range | Performed | Pathologist | | | | | At | Signature | + + + + + + | WHITE CELL | 11.33 (H) | 3.50 - 10.80 | [facility] | | | COUNT | | K/cu mm | LABORATORY | | | | | | SERVICES, | | | | | | CORE | | + + + + + + | RED CELL | 4.30 (L) | 4.50 - 6.00 | [facility] | | | COUNT | | M/cu mm | LABORATORY | | | | | | SERVICES, | | | | | | CORE | | + + + + + + | HEMOGLOBIN | 13.0 (L) | 13.5 - 17.5 | [facility] | | | | | g/dL | LABORATORY | | | | | | SERVICES, | | | | | | CORE | | + + + + + + | HEMATOCRIT | 40.6 (L) | 41.0 - 53.0 % | [facility] | | | | | | LABORATORY | | | | | | SERVICES, | | | | | | CORE | | + + + + + + | MCV | 94.4 | 80.0 - 100.0 fL | [facility] | | | | | | LABORATORY | | | | | | SERVICES, | | | | | | CORE | | + + + + + + | MCHC | 32.0 | 32.0 - 36.0 | [facility] | | | | | g/dL | LABORATORY | | | | | | SERVICES, | | | | | | CORE | | + + + + + + | RDW SD | 45.5 | 35.1 - 46.3 fL | [facility] | | | | | | LABORATORY | | | | | | SERVICES, | | | | | | CORE | | + + + + + + | PLATELET | 111 (L) | 150 - 400 K/cu | [facility] | | | COUNT | | mm | LABORATORY | | | | | | SERVICES, | | | | | | CORE | | + + + + + + | MPV | 12.2 | 9.7 - 12.3 fL | [facility] | | | | | | LABORATORY | | | | | | SERVICES, | | | | | | CORE | | + + + + + + | NRBC% | 0.0 | 0.0 - 0.3 % | [facility] | | | | | | LABORATORY | | | | | | SERVICES, | | | | | | CORE | | + + + + + + | NRBC# | 0.00 | 0.00 - 0.02 | [facility] | | | | | K/cu mm | LABORATORY | | | | | | SERVICES, | | | | | | CORE | | + + + + + + + + | Specimen | + + | Blood - Blood | | (substance) | + + + + + + + | Performing | Address | City/State/Zipcode | Phone Number | | Organization | | | | + + + + + | [facility] | [address] | [place] [address] | | | SERVICES, CORE | [address] | | | + + + + + BASIC METABOLIC SET (NA, K, CL, TCO2, BUN, CR, GLU, CA) (06/01/2018 10:27 AM PST) + +---------+ + + + | Component | Value | Ref Range | Performed | Pathologist | | | | | At | Signature | + +---------+ + + + | GLUCOSE, | 177 (H) | 70 - 99 mg/dL | [facility] | | | PLASMA | | | LABORATORY | | | (LAB) | | | SERVICES, | | | | | | CORE | | + +---------+ + + + | BUN, PLASMA | 25 (H) | 6 - 20 mg/dL | [facility] | | | (LAB) | | | LABORATORY | | | | | | SERVICES, | | | | | | CORE | | + +---------+ + + + | CREATININE | 0.84 | 0.70 - 1.30 | [facility] | | | PLASMA | | mg/dL | LABORATORY | | | (LAB) | | | SERVICES, | | | | | | CORE | | + +---------+ + + + | EGFR | >60 | >60 mL/min | [facility] | | | - | | | LABORATORY | | | [facility] | | | SERVICES, | | | | | | CORE | | + +---------+ + + + | EGFR NON | >60 | >60 mL/min | [facility] | | | -HORACIO | | | LABORATORY | | | RICAN | | | SERVICES, | | | | | | CORE | | + +---------+ + + + | SODIUM, | 139 | 136 - 145 | [facility] | | | PLASMA | | mmol/L | LABORATORY | | | (LAB) | | | SERVICES, | | | | | | CORE | | + +---------+ + + + | POTASSIUM, | 4.1 | 3.4 - 5.0 | [facility] | | | PLASMA | | mmol/L | LABORATORY | | | (LAB) | | | SERVICES, | | | | | | CORE | | + +---------+ + + + | CHLORIDE, | 103 | 97 - 108 mmol/L | [facility] | | | PLASMA | | | LABORATORY | | | (LAB) | | | SERVICES, | | | | | | CORE | | + +---------+ + + + | TOTAL CO2, | 31 | 21 - 32 mmol/L | [facility] | | | PLASMA | | | LABORATORY | | | (LAB) | | | SERVICES, | | | | | | CORE | | + +---------+ + + + | CALCIUM, | 8.4 (L) | 8.6 - 10.2 | [facility] | | | PLASMA | | mg/dL | LABORATORY | | | (LAB) | | | SERVICES, | | | | | | CORE | | + +---------+ + + + | ANION GAP | 5 | 4 - 11 mmol/L | [facility] | | | | | | LABORATORY | | | | | | SERVICES, | | | | | | CORE | | + +---------+ + + + | POTASSIUM | No Hemo | | [facility] | | | CMNT | | | LABORATORY | | | | | | SERVICES, | | | | | | CORE | | + +---------+ + + + + + | Specimen | + + | Blood - Blood | | (substance) | + + + + + | Narrative | Performed At | + + + | GFR is estimated using the MDRD equation recommended by the | [facility] | | National Kidney Disease Education Program. Estimated GFR | LABORATORY | | Interpretive Information: <60 mL/min/1.73 sq m | SERVICES, CORE | | Chronic Kidney Disease <15 mL/min/1.73 sq m | | | Kidney Failure Estimated GFR greater than 60 mL/min/1.73 sq m is of | | | limited clinical value. The MDRD equation is not valid in the | | | following situations: - Patients under 18 years of age - Severe | | | malnutrition or obesity - Vegetarian diet - Rapidly changing kidney | | | function - Amputees, paraplegics, or other muscle-wasting diseses | | + + + + + + + + | Performing | Address | City/State/Zipcode | Phone Number | | Organization | | | | + + + + + | [facility] | [address] | [place] [address] | | | SERVICES, CORE | [address] | | | + + + + + X-RAY FEMUR 2 VIEWS LEFT (06/01/2018 9:10 AM PST) + + | Specimen | + + | | + + + + + | Narrative | Performed At | + + + | EXAM: FEMUR 2 VIEWS LEFT HISTORY: evaluate for fracture | [facility] | | COMPARISON: 05/30/2018 FINDINGS/IMPRESSION: The bones are diffusely | RADIOLOGY VOICE | | osteopenic. Redemonstration of a comminuted left acetabular | RECOGNITION 2 | | fracture, left superior pubic root fracture and left inferior pubic | | | ramus fracture which are more completely characterized on the | | | comparison CT. Intact proximal femoral fixation hardware unchanged | | | in alignment. There is a small knee joint effusion without | | | definite lipohemarthrosis. No additional acute fracture is identified. | | | If clinical suspicion for a fracture about the knee, recommend | | | dedicated knee radiographs for further characterization as clinically | | | desired. I have personally reviewed the images and, if necessary, | | | edited the report. I agree with the report as now presented. | | | Final signature: Fortino Denis MD 06/01/2018 9:24 AM | | | Preliminary: Fortino Denis MD Dictation initiated: Fortino Allen | | | MD Adeel 06/01/2018 9:22 AM | | + + + + + | Procedure Note | + + | Service Account, Push IO Res In Interface - 06/01/2018 9:25 AM PST EXAM: FEMUR 2 | | VIEWS LEFT HISTORY: evaluate for fracture COMPARISON: 05/30/2018 FINDINGS/IMPRESSION: The | | bones are diffusely osteopenic. Redemonstration of a comminuted left acetabular | | fracture, left superior pubic root fracture and left inferior pubic ramus fracture which | | are more completely characterized on the comparison CT. Intact proximal femoral | | fixation hardware unchanged in alignment. There is a small knee joint effusion without | | definite lipohemarthrosis. No additional acute fracture is identified. If clinical | | suspicion for a fracture about the knee, recommend dedicated knee radiographs for | | further characterization as clinically desired. I have personally reviewed the images | | and, if necessary, edited the report. I agree with the report as now presented. Final | | signature: Fortino Denis MD 06/01/2018 9:24 AM Preliminary: Fortino Denis MD | | Dictation initiated: Fortino Denis MD 06/01/2018 9:22 AM | |There is a small knee joint effusion without definite lipohemarthrosis. No additional acute fracture is identified. | | | |If clinical suspicion for a fracture about the knee, recommend dedicated knee radiographs f or further characterization as clinically desired. | | | |I have personally reviewed the images and, if necessary, edited the report. I agree with e report as now presented. | | | |Final signature: Fortino Denis MD 06/01/2018 9:24 AM | |Preliminary: Fortino Denis MD | |Dictation initiated: Fortino Denis MD 06/01/2018 9:22 AM | + + + +---------+ + + | Performing | Address | City/State/Zipcode | Phone Number | | Organization | | | | + +---------+ + + | [facility] | | | | | VOICE RECOGNITION 2 | | | | + +---------+ + + X-RAY PELVIS 3 VIEWS (05/31/2018 9:14 PM PST) + + | Specimen | + + | | + + + + + | Narrative | Performed At | + + + | EXAM: PELVIS 3 VIEWS HISTORY: pre op planning COMPARISON: | [facility] | | 05/30/2018 FINDINGS: The bones are diffusely osteopenic. Evaluation | RADIOLOGY VOICE | | of the sacrum is limited by overlying bowel contents. | RECOGNITION 2 | | Redemonstration of a comminuted left acetabular fracture extending | | | into the iliac wing and involving the superior puboacetabular junction | | | as well as a left inferior pubic ramus fracture. No significant | | | change in alignment from the recent comparison CT. Redemonstration | | | of the postsurgical changes of ORIF at the left proximal femur. The | | | imaged portion of the hardware is intact and unchanged in alignment. | | | The nondisplaced buckle fracture at the right pubic body is not | | | well demonstrated radiographically. Incompletely characterized | | | degenerative changes at the lower lumbar spine. IMPRESSION: No | | | significant interval change in the comminuted left acetabular | | | fracture and left inferior pubic ramus fracture which are more | | | completely characterized on the comparison CT from 05/30/2018. I | | | have personally reviewed the images and, if necessary, edited the | | | report. I agree with the report as now presented. Final | | | signature: Fortino Denis MD 06/01/2018 8:48 AM Preliminary: | | | Fortino Denis MD Dictation initiated: Fortino Denis MD | | | 06/01/2018 8:42 AM | | + + + + -------+ | Procedure Note | + -------+ | Service Account, Radiant Res In Interface - 06/01/2018 8:49 AM PST EXAM: PELVIS 3 | | VIEWS HISTORY: pre op planning COMPARISON: 05/30/2018 FINDINGS: The bones are diffusely | | osteopenic. Evaluation of the sacrum is limited by overlying bowel contents. | | Redemonstration of a comminuted left acetabular fracture extending into the iliac wing | | and involving the superior puboacetabular junction as well as a left inferior pubic | | ramus fracture. No significant change in alignment from the recent comparison CT. | | Redemonstration of the postsurgical changes of ORIF at the left proximal femur. The | | imaged portion of the hardware is intact and unchanged in alignment. The nondisplaced | | buckle fracture at the right pubic body is not well demonstrated radiographically. | | Incompletely characterized degenerative changes at the lower lumbar spine. IMPRESSION: | | No significant interval change in the comminuted left acetabular fracture and left | | inferior pubic ramus fracture which are more completely characterized on the comparison | | CT from 05/30/2018. I have personally reviewed the images and, if necessary, edited the | | report. I agree with the report as now presented. Final signature: Fortino Denis MD | | 06/01/2018 8:48 AM Preliminary: Fortino Denis MD Dictation initiated: Fortino Denis MD 06/01/2018 8:42 AM | |IMPRESSION: | | | |No significant interval change in the comminuted left acetabular fracture and left inferior pubic ramus fracture which are more completely characterized on the comparison CT from 05/30. | | | |I have personally reviewed the images and, if necessary, edited the report. I agree with th e report as now presented. | | | |Final signature: Fortino Denis MD 06/01/2018 8:48 AM | |Preliminary: Fortino Denis MD | |Dictation initiated: Fortino Denis MD 06/01/2018 8:42 AM | + -------+ + +---------+ + + | Performing | Address | City/State/Zipcode | Phone Number | | Organization | | | | + +---------+ + + | [facility] | | | | | VOICE RECOGNITION 2 | | | | + +---------+ + + CBC (HEMOGRAM) ONLY (05/31/2018 1:31 PM PST) + + + + + + | Component | Value | Ref Range | Performed | Pathologist | | | | | At | Signature | + + + + + + | WHITE CELL | 11.90 (H) | 3.50 - 10.80 | [facility] | | | COUNT | | K/cu mm | LABORATORY | | | | | | SERVICES, | | | | | | CORE | | + + + + + + | RED CELL | 4.57 | 4.50 - 6.00 | [facility] | | | COUNT | | M/cu mm | LABORATORY | | | | | | SERVICES, | | | | | | CORE | | + + + + + + | HEMOGLOBIN | 13.8 | 13.5 - 17.5 | [facility] | | | | | g/dL | LABORATORY | | | | | | SERVICES, | | | | | | CORE | | + + + + + + | HEMATOCRIT | 43.5 | 41.0 - 53.0 % | [facility] | | | | | | LABORATORY | | | | | | SERVICES, | | | | | | CORE | | + + + + + + | MCV | 95.2 | 80.0 - 100.0 fL | [facility] | | | | | | LABORATORY | | | | | | SERVICES, | | | | | | CORE | | + + + + + + | MCHC | 31.7 (L) | 32.0 - 36.0 | [facility] | | | | | g/dL | LABORATORY | | | | | | SERVICES, | | | | | | CORE | | + + + + + + | RDW SD | 47.6 (H) | 35.1 - 46.3 fL | [facility] | | | | | | LABORATORY | | | | | | SERVICES, | | | | | | CORE | | + + + + + + | PLATELET | 126 (L) | 150 - 400 K/cu | [facility] | | | COUNT | | mm | LABORATORY | | | | | | SERVICES, | | | | | | CORE | | + + + + + + | MPV | 11.9 | 9.7 - 12.3 fL | [facility] | | | | | | LABORATORY | | | | | | SERVICES, | | | | | | CORE | | + + + + + + | NRBC% | 0.0 | 0.0 - 0.3 % | [facility] | | | | | | LABORATORY | | | | | | SERVICES, | | | | | | CORE | | + + + + + + | NRBC# | 0.00 | 0.00 - 0.02 | [facility] | | | | | K/cu mm | LABORATORY | | | | | | SERVICES, | | | | | | CORE | | + + + + + + + + | Specimen | + + | Blood | + + + + + + + | Performing | Address | City/State/Zipcode | Phone Number | | Organization | | | | + + + + + | [facility] | [address] | [place] [address] | | | SERVICES, CORE | [address] | | | + + + + + BASIC METABOLIC SET (NA, K, CL, TCO2, BUN, CR, GLU, CA) (05/31/2018 1:31 PM PST) + +---------+ + + + | Component | Value | Ref Range | Performed | Pathologist | | | | | At | Signature | + +---------+ + + + | GLUCOSE, | 133 (H) | 70 - 99 mg/dL | [facility] | | | PLASMA | | | LABORATORY | | | (LAB) | | | SERVICES, | | | | | | CORE | | + +---------+ + + + | BUN, PLASMA | 22 (H) | 6 - 20 mg/dL | [facility] | | | (LAB) | | | LABORATORY | | | | | | SERVICES, | | | | | | CORE | | + +---------+ + + + | CREATININE | 0.99 | 0.70 - 1.30 | [facility] | | | PLASMA | | mg/dL | LABORATORY | | | (LAB) | | | SERVICES, | | | | | | CORE | | + +---------+ + + + | EGFR | >60 | >60 mL/min | [facility] | | | - | | | LABORATORY | | | [facility] | | | SERVICES, | | | | | | CORE | | + +---------+ + + + | EGFR NON | >60 | >60 mL/min | [facility] | | | -HORACIO | | | LABORATORY | | | RICAN | | | SERVICES, | | | | | | CORE | | + +---------+ + + + | SODIUM, | 138 | 136 - 145 | [facility] | | | PLASMA | | mmol/L | LABORATORY | | | (LAB) | | | SERVICES, | | | | | | CORE | | + +---------+ + + + | POTASSIUM, | 4.3 | 3.4 - 5.0 | [facility] | | | PLASMA | | mmol/L | LABORATORY | | | (LAB) | | | SERVICES, | | | | | | CORE | | + +---------+ + + + | CHLORIDE, | 104 | 97 - 108 mmol/L | [facility] | | | PLASMA | | | LABORATORY | | | (LAB) | | | SERVICES, | | | | | | CORE | | + +---------+ + + + | TOTAL CO2, | 31 | 21 - 32 mmol/L | [facility] | | | PLASMA | | | LABORATORY | | | (LAB) | | | SERVICES, | | | | | | CORE | | + +---------+ + + + | CALCIUM, | 8.0 (L) | 8.6 - 10.2 | [facility] | | | PLASMA | | mg/dL | LABORATORY | | | (LAB) | | | SERVICES, | | | | | | CORE | | + +---------+ + + + | ANION GAP | 3 (L) | 4 - 11 mmol/L | [facility] | | | | | | LABORATORY | | | | | | SERVICES, | | | | | | CORE | | + +---------+ + + + | POTASSIUM | No Hemo | | [facility] | | | CMNT | | | LABORATORY | | | | | | SERVICES, | | | | | | CORE | | + +---------+ + + + + + | Specimen | + + | Blood | + + + + + | Narrative | Performed At | + + + | GFR is estimated using the MDRD equation recommended by the | [facility] [place] | | National Kidney Disease Education Program. Estimated GFR | LABORATORY | | Interpretive Information: <60 mL/min/1.73 sq m | SERVICES, CORE | | Chronic Kidney Disease <15 mL/min/1.73 sq m | | | Kidney Failure Estimated GFR greater than 60 mL/min/1.73 sq m is of | | | limited clinical value. The MDRD equation is not valid in the | | | following situations: - Patients under 18 years of age - Severe | | | malnutrition or obesity - Vegetarian diet - Rapidly changing kidney | | | function - Amputees, paraplegics, or other muscle-wasting diseses | | + + + + + + + + | Performing | Address | City/State/Zipcode | Phone Number | | Organization | | | | + + + + + | [facility] | [address] | [place] [address] | | | [facility] | [address] | | | + + + + + LAB REPORTS (05/30/2018 12:00 AM PST) + + + | Narrative | Performed At | + + + | | | + + + documented in this encounter Visit Diagnoses Not on filedocumented in this encounter Administered Medications + +--------+ + +------+------+ | Medication Order | MAR | Action | Dose | Rate | Site | | | Action | Date | | | | + +--------+ + +------+------+ | acetaminophen (TYLENOL) tablet | Given | 06/06/19 | 1,000 mg | | | | 1,000 mg 1,000 mg, oral, THREE | | 19 9:06 | | | | | TIMES DAILY, First dose on Sat | | AM PST | | | | | 06/01/18 at 1845, Until | | | | | | | Discontinued | | | | | | + +--------+ + +------+------+ +-------+ + +---+---+ | Given | 06/05/19 | 1,000 mg | | | | | 19 8:40 | | | | | | PM PST | | | | +-------+ + +---+---+ | Given | 06/05/19 | 1,000 mg | | | | | 19 5:05 | | | | | | PM PST | | | | +-------+ + +---+---+ +---+---+ | | | +---+---+ + +-------+ +--------+---+---+ | albuterol 0.083% | Given | 06/05/19 | 2.5 mg | | | | (PROVENTIL,VENTOLIN) 2.5 mg /3 mL | | 19 7:56 | | | | | (0.083 %) nebulizer solution 2.5 | | PM PST | | | | | mg 2.5 mg, inhalation, EVERY 4 | | | | | | | HOURS NEEDED, Starting Sun | | | | | | | 06/02/18 at 0900, Until Myesha | | | | | | | 06/06/18 at 2229, dyspnea/SOB, | | | | | | | Patient states he uses Albuterol | | | | | | | Nebulized @ Home. | | | | | | + +-------+ +--------+---+---+ +-------+ +--------+---+---+ | Given | 06/04/19 | 2.5 mg | | | | | 19 12:55 | | | | | | AM PST | | | | +-------+ +--------+---+---+ | Given | 06/02/19 | 2.5 mg | | | | | 19 3:50 | | | | | | PM PST | | | | +-------+ +--------+---+---+ +---+---+ | | | +---+---+ + +-------+ +-------+---+---+ | bisacodyl (DULCOLAX) | Given | 06/02/19 | 10 mg | | | | suppository 10 mg 10 mg, rectal, | | 19 4:16 | | | | | DAILY NEEDED, Starting Fri | | AM PST | | | | | 05/31/18 at 1312, Until Myesha | | | | | | | 06/06/18 at 2229, 2nd line for no | | | | | | | BM in past 2 days OR if no | | | | | | | response to MIRALAX or if patient | | | | | | | unable to tolerate oral | | | | | | + +-------+ +-------+---+---+ +---+---+ | | | +---+---+ + +-------+ +-------+---+---+ | bisacodyl EC (DULCOLAX) tablet | Given | 06/06/19 | 10 mg | | | | 10 mg 10 mg, oral, DAILY, First | | 19 9:06 | | | | | dose on 06/01/18 at 1830, | | AM PST | | | | | Until Discontinued | | | | | | + +-------+ +-------+---+---+ +-------+ +-------+---+---+ | Given | 06/05/19 | 10 mg | | | | | 19 11:11 | | | | | | AM PST | | | | +-------+ +-------+---+---+ | Given | 06/01/19 | 10 mg | | | | | 19 6:54 | | | | | | PM PST | | | | +-------+ +-------+---+---+ +---+---+ | | | +---+---+ + +-------+ + +---+---+ | calcium carbonate chewable | Given | 06/04/19 | 400 mg | | | | (TUMS) tablet 400 mg elemental | | 19 6:26 | elementa | | | | 400 mg elemental (1,000 mg total | | AM PST | l | | | | salt), oral, EVERY 2 HOURS | | | | | | | NEEDED, Starting 06/03/18 at | | | | | | | 2357, Until Myesha 06/06/18 at 2229, | | | | | | | dyspepsia | | | | | | + +-------+ + +---+---+ +-------+ + +---+---+ | Given | 06/04/19 | 400 mg | | | | | 19 12:31 | elementa | | | | | AM PST | l | | | +-------+ + +---+---+ +---+---+ | | | +---+---+ + +-------+ +--------+---+---+ | dilTIAZem CD 24 hour release | Given | 06/06/19 | 240 mg | | | | (CARDIZEM CD) capsule 240 mg 240 | | 19 9:06 | | | | | mg, oral, DAILY, First dose on | | AM PST | | | | | Myesha 06/06/18 at 0900, Until | | | | | | | Discontinued | | | | | | + +-------+ +--------+---+---+ +---+---+ | | | +---+---+ + +-------+ +-------+---+---------+ | enoxaparin (LOVENOX) injection | Given | 06/05/19 | 40 mg | | Abdomen | | 40 mg 40 mg, subcutaneous, EVERY | | 19 8:40 | | | | | EVENING, First dose (after last | | PM PST | | | | | modification) on 06/04/18 at | | | | | | | 2100, Until Discontinued | | | | | | + +-------+ +-------+---+---------+ +-------+ +-------+---+---------+ | Given | 06/04/19 | 40 mg | | Abdomen | | | 19 8:49 | | | | | | PM PST | | | | +-------+ +-------+---+---------+ +---+---+ | | | +---+---+ + +-------+ +--------+---+---+ | guaiFENesin LA (MUCINEX) tablet | Given | 06/06/19 | 600 mg | | | | 600 mg 600 mg, oral, TWICE | | 19 9:06 | | | | | DAILY, First dose on Sun06/02/18 | | AM PST | | | | | at 2100, Until Discontinued | | | | | | + +-------+ +--------+---+---+ +-------+ +--------+---+---+ | Given | 06/05/19 | 600 mg | | | | | 19 8:40 | | | | | | PM PST | | | | +-------+ +--------+---+---+ | Given | 06/05/19 | 600 mg | | | | | 19 7:31 | | | | | | AM PST | | | | +-------+ +--------+---+---+ + +---+ | | | + +---+ | HYDROmorphone (DILAUDID) | | | injection 0.2-0.4 mg 0.2-0.4 mg, | | | intravenous, EVERY 2 HOURS | | | NEEDED, Starting 06/01/18 at | | | 1647, Until [facility] 06/06/18 at 2229, | | | severe pain | | + +---+ | | | + +---+ + +-------+ +-------+---+---+ | lisinopril (PRINIVIL) tablet 20 | Given | 01/17/20 | 20 mg | | | | mg 20 mg, oral, DAILY, First | | 19 9:06 | | | | | dose on Sun06/06/18 at 0900, | | AM PST | | | | | Until Discontinued | | | | | | + +-------+ +-------+---+---+ +---+---+ | | | +---+---+ + +-------+ +------+---+---+ | melatonin tablet 3 mg 3 mg, | Given | 06/05/19 | 3 mg | | | | oral, EVERY EVENING, First dose | | 19 8:41 | | | | | on Sun06/05/18 at 2045, Until | | PM PST | | | | | Discontinued | | | | | | + +-------+ +------+---+---+ + +---+ | | | + +---+ | naloxone (NARCAN) injection | | | intravenous, NEEDED, Starting | | | 05/31/18 at 1312, Until Myesha | | | 06/06/18 at 2229, over sedation | | + +---+ | | | + +---+ | ondansetron (ZOFRAN) injection | | | 4 mg 4 mg, intravenous, EVERY 12 | | | HOURS NEEDED, Starting Fri | | | 05/31/18 at 1312, Until Myesha | | | 06/06/18 at 2229, nausea/vomiting | | | if unable to take oral | | | ondansetron | | + +---+ | | | + +---+ + +-------+ +------+---+---+ | ondansetron (ZOFRAN) tablet 8 | Given | 06/04/19 | 8 mg | | | | mg 8 mg, oral, EVERY 12 HOURS | | 19 6:43 | | | | | NEEDED, Starting 05/31/18 at | | AM PST | | | | | 1312, Until Myesha 06/06/18 at 2229, | | | | | | | nausea/vomiting, first line | | | | | | + +-------+ +------+---+---+ +---+---+ | | | +---+---+ + +-------+ +------+---+---+ | oxyCODONE (immediate release) | Given | 06/06/19 | 5 mg | | | | (ROXICODONE) tablet 5-10 mg 5-10 | | 19 1:22 | | | | | mg, oral, EVERY 4 HOURS | | PM PST | | | | | NEEDED, Starting 06/01/18 at | | | | | | | 1648, Until Myesha 06/06/18 at 2229, | | | | | | | moderate pain | | | | | | + +-------+ +------+---+---+ +-------+ +------+---+---+ | Given | 06/06/19 | 5 mg | | | | | 19 9:05 | | | | | | AM PST | | | | +-------+ +------+---+---+ | Given | 06/06/19 | 5 mg | | | | | 19 3:29 | | | | | | AM PST | | | | +-------+ +------+---+---+ +---+---+ | | | +---+---+ + +-------+ +-------+---+---+ | pantoprazole (PROTONIX) | Given | 06/05/19 | 40 mg | | | | injection 40 mg 40 mg, | | 19 8:40 | | | | | intravenous, AT BEDTIME, First | | PM PST | | | | | dose on Sun06/04/18 at 2200, | | | | | | | Until Discontinued | | | | | | + +-------+ +-------+---+---+ +-------+ +-------+---+---+ | Given | 06/04/19 | 40 mg | | | | | 19 8:49 | | | | | | PM PST | | | | +-------+ +-------+---+---+ +---+---+ | | | +---+---+ + +-------+ +------+---+---+ | polyethylene glycol (MIRALAX) | Given | 06/06/19 | 17 g | | | | packet 17 g 17 g, oral, DAILY, | | 19 9:06 | | | | | First dose on Sun05/31/18 at | | AM PST | | | | | 1500, Until Discontinued | | | | | | + +-------+ +------+---+---+ +-------+ +------+---+---+ | Given | 06/05/19 | 17 g | | | | | 19 11:10 | | | | | | AM PST | | | | +-------+ +------+---+---+ | Given | 06/01/19 | 17 g | | | | | 19 8:22 | | | | | | AM PST | | | | +-------+ +------+---+---+ +---+---+ | | | +---+---+ + +-------+ +------+---+---+ | polyethylene glycol (MIRALAX) | Given | 06/01/19 | 34 g | | | | packet 34 g 34 g, oral, THREE | | 19 12:36 | | | | | TIMES DAILY NEEDED, Starting | | PM PST | | | | | 05/31/18 at 1312, Until Myesha | | | | | | | 06/06/18 at 2229, 1st line - for | | | | | | | no BM for 2 days | | | | | | + +-------+ +------+---+---+ +---+---+ | | | +---+---+ + +-------+ +-------+---+---+ | pravastatin (PRAVACHOL) tablet | Given | 06/05/19 | 10 mg | | | | 10 mg 10 mg, oral, EVERY | | 19 8:41 | | | | | EVENING, First dose on Mon | | PM PST | | | | | 06/03/18 at 2100, Until | | | | | | | Discontinued | | | | | | + +-------+ +-------+---+---+ +-------+ +-------+---+---+ | Given | 06/04/19 | 10 mg | | | | | 19 8:50 | | | | | | PM PST | | | | +-------+ +-------+---+---+ | Given | 06/03/19 | 10 mg | | | | | 19 11:23 | | | | | | PM PST | | | | +-------+ +-------+---+---+ +---+---+ | | | +---+---+ + +-------+ +------+---+---+ | prochlorperazine (COMPAZINE) | Given | 06/04/19 | 5 mg | | | | injection 5-10 mg 5-10 mg, | | 19 10:50 | | | | | intravenous, EVERY 6 HOURS | | AM PST | | | | | NEEDED, Starting 05/31/18 at | | | | | | | 1312, Until Myesha 06/06/18 at 2229, | | | | | | | nausea/vomiting not responding to | | | | | | | ondansetron and unable to take | | | | | | | oral prochlorperazine | | | | | | + +-------+ +------+---+---+ + +---+ | | | + +---+ | prochlorperazine (COMPAZINE) | | | tablet 5-10 mg 5-10 mg, oral, | | | EVERY 6 HOURS NEEDED, Starting | | | 05/31/18 at 1312, Until Myesha | | | 06/06/18 at 2229, nausea/vomiting, | | | second line | | + +---+ | | | + +---+ + +-------+ +---------+---+---+ | senna-docusate (SENOKOT S) | Given | 06/06/19 | 2 | | | | 8.6-50 mg 2 tablet 2 tablet, | | 19 9:06 | tablets | | | | oral, TWICE DAILY, First dose on | | AM PST | | | | | 05/31/18 at 2100, Until | | | | | | | Discontinued | | | | | | + +-------+ +---------+---+---+ +-------+ +---------+---+---+ | Given | 06/05/19 | 2 | | | | | 19 8:41 | tablets | | | | | PM PST | | | | +-------+ +---------+---+---+ | Given | 06/05/19 | 2 | | | | | 19 7:31 | tablets | | | | | AM PST | | | | +-------+ +---------+---+---+ +---+---+ | | | +---+---+ documented in this encounter
--- OUTSIDE RECORDS SUMMARY | ~2019-11-19 | XMS | Encounter Summary ---
Demographics + + + | Address | [address] | | | [place] [address] | + + + | Home Phone | | + + + | Preferred Language | Unknown | + + + | Marital Status | | + + + | Scientologist Affiliation | Unknown | + + + | Race | Unknown | + + + | Ethnic Group | Unknown | + + + Author + + + | Author | [facility] | | | and [place] | + + + | Organization | [facility] | | | [...] Team Providers + +------+ + | Care Crop Insurance Claims Adjuster Name | Role | Phone | + +------+ + | Herlinda Maldonado | PCP | | | PA | | | + +------+ + Encounter Details +--------+ + + + + | Date | Type | Department | Care Team | Description | +--------+ + + + + | 03/26/ | Hospital | [facility] | Maximilian Abreu | Atrial fibrillation, | | 2019 | Encounter | MED CTR NUCLEAR | MD Jon [address] | unspecified type | | | | MEDICINE [address] | [place] [address] [place] | ([facility]); Abnormal EKG | | | | [place], | [place] [address] | | | | | [place] [address] | [phone] | | | | | [phone] | | | +--------+ + + + [...] + + documented as of this encounter Procedure Notes Maximilian Abreu MD - 03/27/2019 4:05 PM PSTAssociated Order(s): HOLTER MONITOR - 24 HOURProcedure(s): HOLTER MONITOR - 24 HOURFormatting of this note might be different from t he original. PATIENT NAME: William Burns : 1935: AGE: 84 y.o. PRIMARY CARE: SHAHEEN Toro READING SUBSTATION SUPERVISOR: Salvador Abreu MD, PhD, [facility] 48-HOUR HOLTER MONITOR REPORT DATE: 03/26/2019 FINDINGS: 1) The predominant rhythm is sinus with HR between 47 and 74 bpm. The average HR was 58 b pm during the 23:33 hour recording. 2) There were 2173 Ventricular beats with 8 couplets and no triplets. 3) There were 2 episodes of trigeminy. The longest was 2 cycles on Sunday 18:54. 4) There were 235 episodes of bigeminy. The longest was 25 cycles on 01:15. 5) There were 50467 Supraventricular beats with 558 couplets and 78 triplets. 6) There were 20 SVE runs. The longest was 8 beats on Sunday 16:26. The fastest was 1 21 bpm on 14:30. 7) There were 707 episodes of bradycardia. The longest was 47 beats on 02:09. T he minimum rate was 38 bpm on 00:12. 8) There were no episodes of tachycardia. 9) Diary was returned but no symptoms were reported. IMPRESSION: 1. 24-hour Holter monitor notable for underlying sinus rhythm with mean heart rate 58. 2. Frequent PVCs without significant sustained runs. 3. Frequent PACs without significant sustained runs, comprising 14% of all beats. 4. Mild predominantly nocturnal bradycardia without pauses. 5. No symptoms reported. Signed by: Salvador Abreu MD PhD [facility] 03/27/2019, 16:05 documented in t his encounter Plan of Treatment Not on filedocumented as of this encounter Procedures + +--------+ + + + | Procedure Name | Priori | Date/Time | Associated Diagnosis | Comments | | | ty | | | | + +--------+ + + + | HOLTER MONITOR - 24 | Routin | 03/27/2019 | Atrial | Results for this | | HOUR | e | 4:05 PM | fibrillation, | procedure are in [...] PRIMARY CARE: | | | SHAHEEN Toro [place] SUBSTATION SUPERVISOR: Salvador Abreu MD, | | | PhD, [facility] 48-HOUR HOLTER MONITOR REPORT DATE: 03/26/2019 [...] 01:15. | | | 5) There were 09658 Supraventricular beats with 558 couplets and | [...] | Signed by: Salvador Abreu MD PhD [facility] 03/27/2019, 16:05 | | + + + + +---------+ + + | Performing | Address | City/State/[facility] | Phone Number | | Organization | | | | + +---------+ + + | [facility] | | | | + +---------+ + + documented in this encounter Visit Diagnoses + + | Diagnosis | + + | Atrial fibrillation, unspecified type (HCC) | + + | Abnormal EKG Nonspecific abnormal electrocardiogram (ECG) (EKG) | + + documented in this encounter"
--- OUTSIDE RECORDS SUMMARY | ~2019-11-19 | XMS | Encounter Summary ---
Demographics + + + | Address | [address] | | | [place] [address] | + + + | Home Phone | | + + + | Preferred Language | Unknown | + + + | Marital Status | | + + + | Restorationist Affiliation | NON | + + + | Race | White | + + + | Ethnic Group | Not or | + + + Author + + + | Author | [facility] | + + + | Organization | [facility] | + + + | Address | Unknown | + + + | Phone | Unavailable | + + + Support + + +---------+ + | Name | Relationship | Address | Phone | + + +---------+ + | None Per Pt | ECON | Unknown | Unavailable | + + +---------+ + Care Team Providers + +------+ + | Care Rating Examiner Name | Role | Phone | + +------+ + | Daryl Marhc MD | PCP | | + +------+ + Reason for Visit + + + | Reason | Comments | + + + | Outside Records | 07/16/2017- Current ED Admission Notes, Labs, Imaging Reports and | | Received | Surgery Report with Pathology- [facility] | + + + Encounter Details +--------+ + + + + | Date | Type | Department | Care Team | Description | +--------+ + + + + | 07/18/ | Abstract | Dig[facility]ive [facility] | Reji Lyla | Outside Records | | 2018 | | Center at [facility] [address] | MD Rashida [address] [facility] | Received (07/16/2017- | | | | [address] | [facility] | Current ED | | | | Mailcode: Center | [place], [place] | Admission Notes, | | | | for Health and | [address] | Labs, Imaging | | | | Healing, Building 2 | [phone] | Reports and Surgery | | | | [place], [place] | | Report with | | | | [address] | | Pathology- St. | | | | [phone] | | Roshan) | +--------+ + + + + Social [...]
--- OUTSIDE RECORDS SUMMARY | ~2019-11-19 | XMS | Encounter Summary ---
Demographics + + + | Address | [address] | | | [place] [address] | + + + | Home Phone [...] + + + | Author | [facility] | + + + | Organization | [facility] | + + + | Address | Unknown | + + + | Phone | Unavailable | + + + Support + + +---------+ + | Name | Relationship | Address | Phone | + + +---------+ + | None Per Pt | ECON | Unknown | Unavailable | + + +---------+ + Care Team Providers + +------+ + | Care Chair Caner Name | Role | Phone | + +------+ + | Herlinda Maldonado | PCP | | + +------+ + Encounter Details +--------+ + + + + | Date | Type | Department | Care Team | Description | +--------+ + + + + | 06/20/ | Documentati | General Internal | Annabella Gallardo DO | | | 2019 | on [facility] | [address] | | | | | [address] | [place], | | | | | [place], | [place] [address] | | | | | [place] [address] | [phone] | | | | | [phone] | | | +--------+ + + + [...]
--- OUTSIDE RECORDS SUMMARY | ~2019-11-19 | XMS | Encounter Summary ---
Demographics + + + | Address | [address] | | | [place] [address] | + + + | Home Phone [...] + + + | Author | [facility] | + + + | Organization | [facility] | + + + | Address | Unknown | + + + | Phone | Unavailable | + + + Support + + +---------+ + | Name | Relationship | Address | Phone | + + +---------+ + | None Per Pt | ECON | Unknown | Unavailable | + + +---------+ + Care Team Providers + +------+ + | Care Target Man Name | Role | Phone | + [...] + + | 05/31/ | Hospital | [facility] [address] | Ashwini Ruggiero MD | | | 2019 - | Encounter | [address] | [address] | | | | | [place], | [facility] [address] | | | 06/06/ | | [place] [address] | [place], [place] | | | 2018 | | [phone] | [address] | | | | | | [phone] | | | | | | | | | | | | Nguyễn Shepard, | | | | | | [address] | | | | | | [facility] [address] | | | | | | [place], [place] | | | | | | [address] | | | | | | [phone] | | | | | | | [...] might be differe nt from the original. [facility]PART[facility]AEDICS [facility]ATION [facility]IENT [facility] DISCHARGE SUMMARY & INTERDISCIPLINARY INSTRUCTIONS Patient: Willima Burns CSN: [id number] Admission Date: 05/31/2018 Discharge Date: 06/06/2018 Attending Physician: Nguyễn Shepard MD PCP: SHAHEEN Love Service: [facility] Orthopaedics & Rehabilitation Diagnoses Principal Final Diagnosis: [...] they suspect your wound is infected. Call [facility] Orthopedics first at . Activity NON Weight bearing on left leg. For approximately 4 weeks to be determined at postoperative clinic visit. Condition on Discharge Stable Follow-Up Appointments ORTHOPEDICS OUTPATIENT CLINIC: Future Appointments Provider Department Dept Phone Center 07/02/2018 1:40 PM Nguyễn Chance Working Orthopaedics at [facility] [phone] Orthopedics PCP: As needed for any medical [...] mg by mouth once daily at bedtime. [facility] Orthopaedic Service Pain Policy At the 6-week [...] administration instructions. - Call Orthopedic Clinic at [phone] if any persistent, localized swelling that does [...] and ask for the orthopaedic surgery resident it consulting manager. Additional Post-Op Instructions / What to [...] a SNF "I certify that post-hospital inpatient chcf facility care is medically necessar y on [...] Condition on Discharge: Improved Discharging Patient To: Shelter Facility Date and Time of Discharge Summary Completion: 06/07/2018, 2:45 PM Discharging Provider: ELISE Mckeon Discharging Attending: Nguyễn Shepard MD Thank you for the opportunity to take care of William Burns during this inpatient stay, it has been our pleasure. ELISE Mckeon [facility] Department of Orthopaedics & Rehabilitation [address] [place] [address] Mail Code: OP31 [facility] [id number] documented in t his encounter Medications at [...] to have left pelvic fracture, transferred to [facility] Orthopedic Surgery service for surg ical management. [facility] initially consulted for pre-operative evaluation. Nausea/Vomiting Presumptive [...] says he uses sparingly. On arrival to [facility] he was on 4 L NC and [...] Sanchez MD Attending Physician Clinical Hospitalist Services [facility] Pager [phone] Please call or page me with any questions or concerns. Doe Newman MD - 06/06/2018 9:11 AM PST Orthopaedic Surgery Progress Note Patient: /Age: MRN: CSN: Date: Admission Date: Hospital Day: Orthopaedic Attending: William Burns 1935 83 y.o. [id number] 06/06/2018 05/31/2018 6 Nguyễn Shepadr MD Diagnosis: 1. Left anterior column posterior [...] [facility] with ORTHO TRAUMA & [...] to have left pelvic fracture, transferred to [facility] Orthopedic Surgery service for surg ical management. [facility] initially consulted for pre-operative evaluation. Nausea/Vomiting Presumptive [...] says he uses sparingly. On arrival to [facility] he was on 4 L NC and [...] Sanchez MD Attending Physician Clinical Hospitalist Services [facility] Pager [phone] Please call or page me with any questions or concerns. Doe Newman MD - 06/05/2018 7:10 AM PST Orthopaedic Surgery Progress Note Patient: /Age: MRN: CSN: Date: Admission Date: Hospital Day: Orthopaedic Attending: William Burns 1935 83 y.o. [id number] 06/05/2018 05/31/2018 5 Nguyễn Shepard MD Diagnosis: [...] to [facility] a [facility] 1 weeks with ORTHO TRAUMA & [...] refill < 2 seconds Doe Gongora MD [facility] Department of Orthopaedics & Rehabilitation [address] [place] [address] Mail Code: OP31 [facility] [address] Kg Snider MD - 06/04/2018 10:03 AM [...] to have left pelvic fracture, transferred to [facility] Orthopedic Surgery service for surg ical management. [facility] initially consulted for pre-operative evaluation. Nausea/Vomiting Emesis [...] says he uses sparingly. On arrival to [facility] he was on 4 L NC and [...] Sanchez MD Attending Physician Clinical Hospitalist Services [facility] Pager [phone] Please call or page me with any questions or concerns. Devendra Scales MD - 06/04/2018 7:48 AM PST Orthopaedic Surgery Progress Note Patient: /Age: MRN: CSN: Date: Admission Date: Hospital Day: Orthopaedic Attending: William James Grant 1935 83 y.o. [id number] 06/04/2018 05/31/2018 4 Nguyễn Shepard MD Diagnosis: [...] to [facility] a [facility] weeks with ORTHO TRAUMA & FRACTURE, ASDA Conti - (Jie Shepard) Subjective: Has had [...] refill < 2 seconds Doe Gongora MD [facility] Department of Orthopaedics & Rehabilitation [address] [place] [address] Mail Code: OP31 [facility] [address] evendra Da Silva MD - 06/03/2018 8:32 PM PST [facility] DEPARTMENT OF ORTHOPAEDICS & REHABILITATION POST-OPERATIVE [...] MD Orthopaedic Surgery Resident 06/03/2018, 8:33 PM [facility] Department of Orthopaedics & Rehabilitation [address] [facility] Mail Code: OP31 [place] [address] Jade Messina MD - 06/02/2018 8:36 AM [...] Please call Orthopaedic Trauma and Fracture at [phone] to schedule a followup within 2 weeks from discharge. ALEXA VICKERS MD Pager: [phone] 06/02/2018 oe Gongora MD - 06/01/2018 8:27 AM PST Orthopaedic Surgery Progress Note Patient: /Age: MRN: CSN: Date: Admission Date: Hospital Day: Orthopaedic Attending: William Burns 1935 83 y.o. [id number] 06/01/2018 05/31/2018 1 Nguyễn Shepard MD Diagnosis: [...] to make a [facility] 2-3 weeks with ORTHO TRAUMA & FRACTURE, [...] seconds Reflexes: not performed Doe Gongora MD [facility] Department of Orthopaedics & Rehabilitation [address] [facility] Mail Code: OP31 Dileep CHAPPELL [id number] documented in this enco unter Plan of [...] + + + + + | [facility] | [address] | [place] [address] | | | SERVICES, CORE | RICHARD [...] | | | LABORATORY | | | [place] | | | SERVICES, | | | [...] + + + + + | [facility] | [address] | [place] [address] | | | SERVICES, CORE | RICHARD [...] LABORATORY | [address] | [place] [address] | | | SERVICES, CORE | PARK [...] | | | LABORATORY | | | [place] | | | SERVICES, | | | [...] the MDRD equation recommended by the | [facility] | | National Kidney Disease Education Program. [...] | + + + + + | [facility] LABORATORY | [address] [facility] | [place] [address] | | | SERVICES, [place] | RICHARD [...] + + + + + | [facility] | [address] | [place] [address] | | | SERVICES, CORE | RICHARD [...] + + + + + | [facility] | [address] | [place] [address] | | | SERVICES, CORE | [address] | | | + + + + + X-RAY PORTABLE 2 VIEW ABDOMEN (KUB AND UPRIGHT) (06/04/2018 2:32 PM PST) + + | Specimen | + + | | + + + + + | Narrative | Performed At | + + + | EXAM: [place] 2 VIEW ABDOMEN (KUB AND UPRIGHT) History: [...] Interface - 06/04/2018 4:24 PM PST EXAM: [place] 2 VIEW | | ABDOMEN (KUB AND [...] + + + + + | [facility] | [address] | [place] [address] | | | SERVICES, CORE | RICHARD [...] + + + + + | [facility] | [address] [facility] | [place] [address] | | | SERVICES, CORE | RICHARD [...] + + + + + | [facility] | [address] [facility] | [place] [address] | | | SERVICES, CORE | RICHARD [...] | | | LABORATORY | | | [place] | | | SERVICES, | | | [...] + + + + + | [facility] | [address] [facility] | [place] [address] | | | SERVICES, CORE | RICHARD [...] Note | + + | Service Account, RadiBellabox Res In Interface - 06/04/2018 4:42 PM [...] | | + +---------+ + + | [facility] RADIOLOGY | | | | | VOICE RECOGNITION 2 | | | | + +---------+ + + OPERATION RECORD (06/03/2018 4:58 PM PST) + + | Procedure Note | + + | Nguyễn Shepard MD - 06/03/2018 4:58 PM [facility] Date of Service: 06/03/2018 | | Attending Surgeon: Nguyễn Shepard MD Bell Clerk(s): Devendra Allen | | MD Avinash. Preoperative [...] He | | was transferred to the [facility]. A sacral bump consisting of 5 squared [...] problem was referred to my care at [facility] by another | | orthopaedic surgeon. The patient is from the [facility] and traveled many miles to | | get to [facility], bypassing several other hospitals due to the [...] 06/03/2018 14:26:09DT: | | 06/03/2018 16:58:33Job #: [id number] | + + MAGNESIUM, PLASMA (06/03/2018 4:37 [...] [place] [facility] | [address] | [place] [address] | | | SERVICES, CORE | PARK [...] OF | [address] | [place], [place] | | | CARDIOLOGY | [address] | [address] | | + + + + + [...] [facility] | [address] | [place], [place] | | | DILAN TURNER OF CARE | [address] | [address] | | | TESTS | | | [...] [facility] | [address] | [place], [place] | | | DILAN TURNER OF CARE | [address] | [address] | | | TESTS | | | [...] + + + + + | [facility] | [address] | [place] [address] | | | SERVICES, [place]OKASTA | RICHARD [...] | | | LABORATORY | | | [place] | | | SERVICES, | | | [...] + + + + + | [facility] | [address] | [place] [address] | | | SERVICES, CORE | RICHARD [...] | + + + + + | [facility] DEPT OF | [address] | [place], [place] | | | CARDIOLOGY | [address] | [address] | | + + + + + [...] LABORATORY | [address] | [place] [address] | | | SERVICES, CORE | PARK [...] LABORATORY | [address] | [place] [address] | | | SERVICES, CORE | PARK [...] | | | LABORATORY | | | [place] | | | SERVICES, | | | [...] | + + + + + | [facility] | [address] | [place] [address] | | | SERVICES, CORE | RICHARD [...] LABORATORY | [address] | [place] [address] | | | SERVICES, | [address] [...] + + + + + | [facility] | [address] | [place] [address] | | | SERVICES, | [address] [...] | + + + + + | [facility] LABORATORY | [address] | [place] [address] | | | SERVICES, CORE | [address] | | | + + + + + X-RAY KNEE 2 VIEWS LEFT (06/01/2018 11:48 AM PST) + + | Specimen | + + | | + + + + + | Narrative | Performed At | + + + | EXAM: KNEE 2 VIEWS LEFT HISTORY: eval traction pin placement | [facility] | | COMPARISON: None. FINDINGS/IMPRESSION: Interval placement [...] LABORATORY | [address] | [place] [address] | | | SERVICES, CORE | PARK [...] | | | LABORATORY | | | [place] | | | SERVICES, | | | [...] the MDRD equation recommended by the | [facility] | | National Kidney Disease Education Program. [...] + + + + + | [facility] | [address] | [place] [address] | | | SERVICES, CORE | RICHARD [...] Note | + + | Service Account, Speaktoit Res In Interface - 06/01/2018 9:25 AM [...] + + + + + | [facility] | [address] | [place] [address] | | | SERVICES, CORE | RICHARD [...] | | | LABORATORY | | | [place] | | | SERVICES, | | | [...] + + + + + | [facility] | [address] | [place] [address] | | | SERVICES, CORE | [address]ICHARD [...]
--- OUTSIDE RECORDS SUMMARY | ~2019-11-19 | XMS | Encounter Summary ---
Demographics + + + | Address | [address] | | | [place] [address] | + + + | Home Phone | | + + + | Preferred Language | Unknown | + + + | Marital Status | | + + + | Mormon Affiliation | NON | + + + | Race | White | + + + | Ethnic Group | Not or | + + + Author + + + | Author | [facility] | + + + | Organization | [facility] | + + + | Address | Unknown | + + + | Phone | Unavailable | + + + Support + + +---------+ + | Name | Relationship | Address | Phone | + + +---------+ + | None Per Pt | ECON | Unknown | Unavailable | + + +---------+ + Care Team Providers + +------+ + | Care Soil Analyst Name | Role | Phone | + +------+ + | Herlinda Maldonado | PCP | | + +------+ + Encounter Details +--------+ + + + + | Date | Type | Department | Care Team | Description | +--------+ + + + + | 07/14/ | Hospital | Registration [address] | [address] | | | 2002 | Activity | [address] | [address] | | | | | Herb Mailcode: [id number] | [place], | | | | | [place], [place] | [place] [address] | | | | | [address] | [phone] | | | | | [phone] | | | +--------+ + + + [...]
--- OUTSIDE RECORDS SUMMARY | ~2019-11-19 | XMS | Encounter Summary ---
Demographics + + + | Address | [address] | | | [place] [address] | + + + | Home Phone | | + + + | Preferred Language | Unknown | + + + | Marital Status | | + + + | Restorationism Affiliation | NON | + + + [...] Team Providers + +------+ + | Care Aids Nurse Name | Role | Phone | + [...] | | | | [address] [facility] | [place], [place] | | | | | [place], [facility] floor | [address] | | | | | [place], [place] | [phone] | | | | | [address] | | | | | | [phone] | | | +--------+ + + + [...]
--- OUTSIDE RECORDS SUMMARY | ~2019-11-19 | XMS | Encounter Summary ---
Demographics + + + | Address | [address] | | | [place] [address] | + + + | Home Phone | | + + + | Preferred Language | Unknown | + + + | Marital Status | | + + + | Sabianism Affiliation | NON | + + + | Race | White | + + + | Ethnic Group | Not or | + + + Author + + + | Author | [facility] | + + + | Organization | [facility] | + + + | Address | Unknown | + + + | Phone | Unavailable | + + + Support + + +---------+ + | Name | Relationship | Address | Phone | + + +---------+ + | None Per Pt | ECON | Unknown | Unavailable | + + +---------+ + Care Team Providers + +------+ + | Care Drug Abuse Technician Name | Role | Phone | + +------+ + | Herlinda Maldonado | PCP | | + +------+ + Encounter Details +--------+ + + + + | Date | Type | Department | Care Team | Description | +--------+ + + + + | 06/16/ | Telephone | [facility] Primary Care | Sid, | | | 2018 | | at [facility] | Alexa Anderson MD | | | | | [address] | [address] | | | | | [address] [facility] | [place], | | | | | [place], [address] floor | [place] [address] | | | | | [place], [place] | [phone] | | | | | [address] | | | | | | [phone] | | | +--------+ + + + [...]
--- OUTSIDE RECORDS SUMMARY | ~2019-11-19 | XMS | Encounter Summary ---
Demographics + + + | Address | [address] | | | [place] [address] | + + + | Home Phone | | + + + | Preferred Language | Unknown | + + + | Marital Status | | + + + | Zoroastrianism Affiliation | Unknown | + + + [...] Team Providers + +------+ + | Care Crew Manager Name | Role | Phone | + +------+ + PCP | Unavailable | + +------+ + Encounter Details +--------+ + + + + | Date | Type | Department | Care Team | Description | +--------+ + + + + | 02/28/ | Hospital | [facility] | Waylon Licona, | INTERTROCHANTERIC | | 2002 - | Encounter | CENTER SURGICAL [address] | [address] | [facility] ([facility]) | | | | [address] | [place] [address] | | | 03/05/ | | [place], [place] | [phone] | | | 2002 | | [address] | | | | | | [phone] | | | +--------+ + + + [...]
--- OUTSIDE RECORDS SUMMARY | ~2019-11-19 | XMS | Encounter Summary ---
Demographics + + + | Address | [address] | | | [place] [address] | + + + | Home Phone | | + + + | Preferred Language | Unknown | + + + | Marital Status | | + + + | Voodoo Affiliation | NON | + + + | Race | White | + + + | Ethnic Group | Not or | + + + Author + + + | Author | [facility] | + + + | Organization | [facility] | + + + | Address | Unknown | + + + | Phone | Unavailable | + + + Support + + +---------+ + | Name | Relationship | Address | Phone | + + +---------+ + | None Per Pt | ECON | Unknown | Unavailable | + + +---------+ + Care Team Providers + +------+ + | Care Pulley Man Name | Role | Phone | + +------+ + | Herlinda Maldonado | PCP | | + +------+ + Encounter Details +--------+ + + + + | Date | Type | Department | Care Team | Description | +--------+ + + + + | 06/28/ | Document-Sc | Health Information | Other, Faculty | | | 2018 | anned | Services [address] | [phone] | | | | | [address] | | | | | | Mailcode: OP17A | | | | | | [facility] | | | | | | [place], [place] | | | | | | [address] | | | | | | [phone] | | | +--------+ + + + [...]
--- OUTSIDE RECORDS SUMMARY | ~2019-11-19 | XMS | Encounter Summary ---
Demographics + + + | Address | [address] | | | [place] [address] | + + + | Home Phone [...] Team Providers + +------+ + | Care Sas Programmer Analyst Name | Role | Phone | + +------+ + | Herlinda Maldonado | PCP | | | PA | | | + +------+ + Reason for Visit + +--------+ + | Reason | Onset | Comments | | | Date | | + +--------+ + | Procedure | 08/01/ | ERCP | | | 2018 | | + +--------+ + Encounter Details +--------+ + + + + | Date | Type | Department | Care Team | Description | +--------+ + + + + | 08/01/ | Telephone | [facility] | Jamey Hdz | Procedure (ERCP) | | 2018 | | GASTROENTEROLOGY | MD Sarkis [address] | | | | | [address] [facility] | [address] [facility] | | | | | [address] [place] | [place] [address] | | | | | [address] | [phone] | | | | | [phone] | | | +--------+ + + + [...] this encounter Miscellaneous Notes Telephone Encounter - Alisa Silvestre RN - 08/01/2017 3:25 PM PDTScheduled pt for pr opofol ERCP on 08/14/17 at 1000 for stent removal; reviewed medication, surg/med hx and aller gies; reviewed prep instruction and mailed these to pt completed case request order, seamus reis MA. documented i n this encounter Plan of Treatment Not on filedocumented as of this encounter Visit Diagnoses + + | Diagnosis | + + | Encounter for removal of biliary stent - Primary | + + | Advanced age Reserved for inherently not codable concepts WITHOUT codable children | + + documented in this encounter"
--- OUTSIDE RECORDS SUMMARY | ~2019-11-19 | XMS | Encounter Summary ---
Demographics + + + | Address | [address] | | | [place] [address] | + + + | Home Phone | | + + + | Preferred Language | Unknown | + + + | Marital Status | | + + + | Sikhism Affiliation | NON | + + + | Race | White | + + + | Ethnic Group | Not or | + + + Author + + + | Author | [facility] | + + + | Organization | [facility] | + + + | Address | Unknown | + + + | Phone | Unavailable | + + + Support + + +---------+ + | Name | Relationship | Address | Phone | + + +---------+ + | None Per Pt | ECON | Unknown | Unavailable | + + +---------+ + Care Team Providers + +------+ + | Care Director Labor Standards Name | Role | Phone | + [...] [address]ites[address] | | | | | [facility]b [facility] | [facility] | | | | | [facility] Admitting | [place], [place] | | | | | Desk Located on the | [address] | | | | | 9th floor | [phone] | | | | | [place], [place] | | | | | | [address] | | | +--------+ + + + [...] + + | Urethr | 06/26/17; 09; [facility]; | 06/26/17 09 by | 06/27/17 1100 by | | al | Veena-nita Arriaga; 06/27/17; 1100 | Leonor Peck RN | Lani Chicas RN | | Cathet | | | | | er | | | | +--------+ + + + | Centra | 06/26/17; 0900; Dr. Garcia; [facility]; | 06/26/17 0900 by | 06/27/17 1403 [...]
--- OUTSIDE RECORDS SUMMARY | ~2019-11-19 | XMS | Encounter Summary ---
Demographics + + + | Address | [address] | | | [place] [address] | + + + | Home Phone [...] Providers + +------+ + | Care Wire Weaver Name | Role | Phone | + +------+ + | Herlinda Maldonado | PCP | | + +------+ + Reason for Visit + + + | Reason | Comments | + + + | Constipated | | + + + Encounter Details +--------+ + + + + | Date | Type | Department | Care Team | Description | +--------+ + + + + | 06/18/ | Telephone | [facility] Primary Care | Nava | Constipated | | 2019 | | at [facility] | Dimas Pelayo MD | | | | | [address] | [address] | | | | | Loop Physician's | [facility], | | | | | [place], 3rd floor | [place] [address] | | | | | [place], [place] | [phone] | | | | | [address] | | | | | | [phone] | | | +--------+ + + + + Social History + +-------+ +--------+------+ | Tobacco Use | Types | Packs/Day | Years | Date | | | | | Used | | + +-------+ +--------+------+ | Former Smoker | | | | | + +-------+ +--------+------+ + + | Comments: per dixon. Cannot verify right now pt intubated. | [...]
--- OUTSIDE RECORDS SUMMARY | ~2019-11-19 | XMS | Encounter Summary ---
Demographics + + + | Address | [address] | | | [place] [address] | + + + | Home Phone [...] + + + | Author | [facility] | + + + | Organization | [facility] | + + + | Address | Unknown | + + + | Phone | Unavailable | + + + Support + + +---------+ + | Name | Relationship | Address | Phone | + + +---------+ + | None Per Pt | ECON | Unknown | Unavailable | + + +---------+ + Care Team Providers + +------+ + | Care Client Relationship Executive Name | Role | Phone | + [...] | | | | | | Herb [facility] | | | | | | Hospital Admitting | | | | | | Desk Located on the | | | | | | 9th floor | | | | | | [place], [place] | | | | | | [address] | | | +--------+ + + + [...]
--- OUTSIDE RECORDS SUMMARY | ~2019-11-19 | XMS | Encounter Summary ---
Demographics + + + | Address | [address] | | | [place] [address] | + + + | Home Phone | | + + + | Preferred Language | Unknown | + + + | Marital Status | | + + + | Confucianist Affiliation | Unknown | + + + | Race | Unknown | + + + | Ethnic Group | Unknown | + + + Author + + + | Author | [facility] | | | and [place] | + + + | Organization | [facility] | | [...] Team Providers + +------+ + | Care Crisis Intervention Specialist Name | Role | Phone | [...] | Specialty | Pulmonary | Diagnoses | Lois | Karoline Castellon | | | Services | Disease / | Chronic | Maximilian | MD Merle | | | Required | Pulmonology | obstructive | MD Jon | [address] | | | | | pulmonary | [address] | [address] [place] | | | | | disease, | [place] | [place], [place] | | | | | unspecified | [place], [place] | [address] Phone: | | | | | COPD type | [address] | [phone] | | | | | ([facility]) | Phone: | Fax: | | | | | | [phone] | [phone] | | | | | | Fax: | | | | | | | [phone] | | +--------+ + + + + [...] [address] | | | | | ([facility]) | [address] | [address] | | | | | Procedures | [place], | [place] | | | | | HEALTH EDUCATOR | [place] | [address] Phone: | | | | | | [address] | [phone] | | | | | | Phone: | Fax: | | | | | | [phone] | [phone] | | | | | | Fax: | | | | | | | [phone] | | +--------+--------+ + + + + Encounter Details +--------+---------+ + + + | Date | Type | Department | Care Team | Description | +--------+---------+ + + + | 04/09/ | Office | [facility] | Maximilian Abreu | Chronic obstructive | | 2018 | Visit | CARDIOLOGY [address] | MD Jon [address] | pulmonary disease, | | | | [address] [place], | [address] [place] | unspecified COPD | | | | [place] [address] | [place] [address] | type (HCC) (Primary | | | | [phone] | [phone] | Dx) | | | | | [...] SURGERY 1981 Lower back COLONOSCOPY 09/23/2013 [facility] ENDOSCOPY 08/10/2013 [facility] ERCP N/A 08/14/2017 Procedure: ERCP; Surgeon: Jamey Hdz MD; Location: [facility] MEDICAL PROCEDURE UNIT HIP FRACTURE SURGERY Left [...] OTHER SURGICAL HISTORY Endobiliary stent placed at [facility] Removal of lesion Right 2010 Right [...] made to ensure accuracy; however, inadvertent computerized health educator errors may be pre sent. Electronically signed by: Salvador Abreu MD PhD [facility] 04/09/2019 documented in t his encounter Plan [...]
--- OUTSIDE RECORDS SUMMARY | ~2019-11-19 | XMS | Encounter Summary ---
Demographics + + + | Address | [address] | | | [place] [address] | + + + | Home Phone [...] Team Providers + +------+ + | Care Landman Name | Role | Phone | + [...] [address] | | | | | [place], [place] | [place], [place] | | | | | [address] | [address] | | | | | [phone] | [phone] | | | | | | | [...]
--- OUTSIDE RECORDS SUMMARY | ~2019-11-19 | XMS | Encounter Summary ---
Demographics + + + | Address | [address] | | | [place] [address] | + + + | Home Phone [...] Team Providers + +------+ + | Care Alcohol Rubber Name | Role | Phone | + +------+ + | Herlinda Maldonado | PCP | | + +------+ + Reason for Visit +---------+ + | Reason | Comments | +---------+ + | Post Op | | +---------+ + Encounter Details +--------+ + + + + | Date | Type | Department | Care Team | Description | +--------+ + + + + | 06/25/ | Telephone | Orthopaedics | Nguyễn Shepard | Post Op | | 2019 | | [facility] at [facility] | MD Meron [address] | | | | | for Health and | [address] | | | | | Healing [address] | [place], [place] | | | | | Ave Mailcode: | [address] | | | | | [facility] | [phone] | | | | | Health and Healing, | | | | | | [facility] | | | | | | Floor [place], [place] | | | | | | [address] | | | | | | [phone] | | | +--------+ + + + [...]
--- OUTSIDE RECORDS SUMMARY | ~2019-11-19 | XMS | Encounter Summary ---
Demographics + + + | Address | [address] | | | [place] [address] | + + + | Home Phone | | + + + | Preferred Language | Unknown | + + + | Marital Status | | + + + | Orthodoxy Affiliation | NON | + + + | Race | White | + + + | Ethnic Group | Not or | + + + Author + + + | Author | [facility] | + + + | Organization | [facility] | + + + | Address | Unknown | + + + | Phone | Unavailable | + + + Support + + +---------+ + | Name | Relationship | Address | Phone | + + +---------+ + | None Per Pt | ECON | Unknown | Unavailable | + + +---------+ + Care Team Providers + +------+ + | Care Nurse Executive Name | Role | Phone | [...] | | 2018 | | Arrhythmia at [facility] | MD Herson [address] [facility] | | | | | [address] | [address] | | | | | Mailcode: CH7A | [place], [place] | | | | | [facility] | [address] | | | | | and Healing, | [phone] | | | | | [place] [address] [facility] | | | | | | Floor [place], [place] | | | | | | [address] | | | | | | [phone] | | | +--------+ + + + [...]
--- OUTSIDE RECORDS SUMMARY | ~2019-11-19 | XMS | Encounter Summary ---
Demographics + + + | Address | [address] | | | [place] [address] | + + + | Home Phone | | + + + | Preferred Language | Unknown | + + + | Marital Status | | + + + | Sabianism Affiliation | NON | + + + | Race | White | + + + | Ethnic Group | Not or | + + + Author + + + | Author | [facility] | + + + | Organization | [facility] | + + + | Address | Unknown | + + + | Phone | Unavailable | + + + Support + + +---------+ + | Name | Relationship | Address | Phone | + + +---------+ + | None Per Pt | ECON | Unknown | Unavailable | + + +---------+ + Care Team Providers + +------+ + | Care Aquatics Specialist Name | Role | Phone | [...] | | 2019 | | [facility] at [facility] | MD Meron [address] | | | | | for Health and | [address] | | | | | Healing [address] | [place], [place] | | | | | Ave Mailcode: | [address] | | | | | [facility] | [phone] | | | | | Health and Healing, | | | | | | [facility] | | | | | | Floor [place], [place] | | | | | | [address] | | | | | | [phone] | | | +--------+ + + + [...]
--- OUTSIDE RECORDS SUMMARY | ~2019-11-19 | XMS | Encounter Summary ---
Demographics + + + | Address | [address] | | | [place] [address] | + + + | Home Phone [...] Team Providers + +------+ + | Care Design Printing Machine Set Up Operator Name | Role | Phone | + +------+ + PCP | Unavailable | + +------+ + Encounter Details +--------+ + + + + | Date | Type | Department | Care Team | Description | +--------+ + + + + | 07/16/ | Procedure - | | Evaluation, Cei | [facility] | | 2003 | | | Ultrasound | | | | Transcribed | | [...] documented as of this encounter Progress Notes Interface, Brick Mason In - 11/26/2005 3:10 AM PDT ULTRASOUND EVAL UATION REPORT PATIENT: EDSON HURST DATE: 07/14/2002 REFERRING MD: Tacos Crawford M.D. EYE: OD. HISTORY: This gentleman presents after having a vitrectomy and a gas bubble for a macular hole and retinal detachment. ECHOGRAPHY: The B-scan was performed with the patient in the seated position because of the gas bubble filling approximately 40% of the posterior segment. There is a highly reflective membrane consistent with a retinal detachment in the inferior half of the globe. The macula is most likely involved in this detachment. There is a moderate amount of vitreous debris and membranes with some evidence of traction to the retina. Durga Bay M.D. and Waylon Simeon, Ophthalmic Echographer [place] / [id number] / [id number] / [id number] / Tdocumented in this encounter Plan of Treatment Not on filedocumented as of this encounter Procedures + +--------+ + + + | Procedure Name | Priori | Date/Time | Associated Diagnosis | Comments | | | ty | | | | + +--------+ + + + | [facility] | | 07/16/2002 | | Results for this | | | | | | procedure are in the | | | | | | results section. | + +--------+ + + + documented in this encounter Results [facility] (07/16/2002) + + | Transcriptions | + + | Interface, Brick Mason In - 11/26/2005 3:10 AM PDT | | ULTRASOUND EVALUATION REPORTPATIENT: RAVINDER HURST: | | 07/14/2002REFERRING MD: Tacos Crawford M.D. : | | OD.HISTORY: This gentleman presents after having a vitrectomy and a gasbubble for a | | macular hole and retinal detachment.ECHOGRAPHY: The B-scan was performed with the | | patient in the seatedposition because of the gas bubble filling approximately 40% of | | theposterior segment.There is a highly reflective membrane consistent with a retinal | | detachmentin the inferior half of the globe. The macula is most likely involved inthis | | detachment.There is a moderate amount of vitreous debris and membranes with someevidence | | of traction to the retina.Durga Bay M.D. andWaylon Simeon, Ophthalmic | | EchographerME / [id number] / [id number] / [id number] / T: 07/17/2002 | |HISTORY: This gentleman presents after having a vitrectomy and a gas | |bubble for a macular hole and retinal detachment. | | | |ECHOGRAPHY: The B-scan was performed with the patient in the seated | |position because of the gas bubble filling approximately 40% of the | |posterior segment. | | | |There is a highly reflective membrane consistent with a retinal detachment | |in the inferior half of the globe. The macula is most likely involved in | |this detachment. | | | |There is a moderate amount of vitreous debris and membranes with some | |evidence of traction to the retina. | | | | | | | | | | | |Durga Bay M.D. and | |Waylon Simeon, Ophthalmic Echographer | | | |[place] / [place] | |[id number] / [id number] / [id number] / | | | | | + + documented in this encounter Visit Diagnoses Not on filedocumented in this encounter"
--- OUTSIDE RECORDS SUMMARY | ~2019-11-19 | XMS | Encounter Summary ---
Demographics + + + | Address | [address] | | | [place] [address] | + + + | Home Phone | | + + + | Preferred Language | Unknown | + + + | Marital Status | | + + + | Holiness Affiliation | NON | + + + | Race | White | + + + | Ethnic Group | Not or | + + + Author + + + | Author | [facility] | + + + | Organization | [facility] | + + + | Address | Unknown | + + + | Phone | Unavailable | + + + Support + + +---------+ + | Name | Relationship | Address | Phone | + + +---------+ + | None Per Pt | ECON | Unknown | Unavailable | + + +---------+ + Care Team Providers + +------+ + | Care Muleser Name | Role | Phone | + [...] + + | 06/18/ | Telephone | [facility] Primary Care | Nava | Constipated | | 2019 | | at [facility] | Dimas Pelayo MD | | | | | [address] | [address] | | | | | Loop Physician's | [facility], | | | | | [address], 3rd floor | [place] [address] | | | | | [place], [place] | [phone] | | | | | [address] | | | | | | [phone] | | | +--------+ + + + [...]
--- OUTSIDE RECORDS SUMMARY | ~2019-11-19 | XMS | Encounter Summary ---
Demographics + + + | Address | [address] | | | [place] [address] | + + + | Home Phone | | + + + | Preferred Language | Unknown | + + + | Marital Status | | + + + | Mandaen Affiliation | NON | + + + [...] Team Providers + +------+ + | Care Special Delivery Clerk Name | Role | Phone | [...] | | 2018 | | Center at [facility] [address] | MD Rashida [address] [facility] | Received (07/16/2017- | | | | [address] | [facility] | Current ED | | | | Mailcode: Center | [place], [place] | Admission Notes, | | | | for Health and | [address] | Labs, Imaging | | | | Healing, Building 2 | [phone] | Reports and Surgery | | | | [place], [place] | | Report with | | | | [address] | | Pathology- St. | | | | [phone] | | Roshan) | +--------+ + + [...]
--- OUTSIDE RECORDS SUMMARY | ~2019-11-19 | XMS | Encounter Summary ---
Demographics + + + | Address | [address] | | | [place] [address] | + + + | Home Phone [...] Team Providers + +------+ + | Care Welding Supervisor Name | Role | Phone | [...] | 2019 | on | [facility] | [address] | | | | | [address] | [place], | | | | | [place], | [place] [address] | | | | | [place] [address] | [phone] | | | | | [phone] | | | +--------+ + + + [...]
--- OUTSIDE RECORDS SUMMARY | ~2019-11-19 | XMS | Encounter Summary ---
Demographics + + + | Address | [address] | | | [place] [address] | + + + | Home Phone | | + + + | Preferred Language | Unknown | + + + | Marital Status | | + + + | Baptism Affiliation | Unknown | + + + | Race | Unknown | + + + | Ethnic Group | Unknown | + + + Author + + + | Author | [facility] | | | and [place] | + + + | Organization | [facility] | | | [...] Providers + +------+ + | Care Client Manager Name | Role | Phone | [...] | | | | COPD type | [place], [place] | [place] | | | | | ([facility]) | [address] | [address] | | | | | Procedures | Phone: | Phone: | | | | | Pulmonary | [phone] | [phone] | | | | | function | Fax: | Fax: | | | | | test | [phone] | [phone] | +--------+--------+ + + + + Reason [...] | | | pulmonary | [address] | [address] | | | | | disease, | [place] | [address] | | | | | unspecified | [address] | [place] | | | | | COPD type | [address] | [address] Phone: | | | | | ([facility]) | Phone: | [phone] | | | | | | [phone] | Fax: | | | | | | Fax: | [phone] | | | | | | [phone] | | +--------+ + + + + + Encounter Details +--------+---------+ + + + | Date | Type | Department | Care Team | Description | +--------+---------+ + + + | 04/30/ | Office | [facility] | Yovanny, | Shortness of breath | | 2019 | Visit | PULMONOLOGY [address] | She Youssef, | (Primary Dx); | | | | [address] | [address] | Chronic obstructive | | | | [place] | [place], | pulmonary disease, | | | | [address] | [place] [address] | unspecified COPD | | | | [phone] | [phone] | type (HCC); | | | | [...] in this encounter Progress Notes Brock Bocanegra, Automobile Repair Service Estimator - 04/30/2019 1:30 PM PST3 step testing Oximetry Exercise (code) 64063 1. At rest on room air: Time:2:24 [...] for a bowel obstruction in [facility] and he is recovering from this. [...] time he was admitted in [facility]. 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 He has a dog. He denies owning pigeons. He grew up in [place]. He denies having respirator y issues when [...] disease (COPD) ([facility]) Crush injury lower extremities 1966 Left leg and foot Cutaneous abscess of chest wall Disease of sebaceous glands Diverticulosis Diverticulosis of colon Epidermal cyst Epigastric pain Esophageal ulcer with bleeding GERD (gastroesophageal reflux disease) Hip fracture ([facility]) 2003 Left Hyperlipidemia Inflamed seborrheic keratosis Inguinal [...] BACK SURGERY 1981 Lower back COLONOSCOPY 09/23/2013 [facility] ENDOSCOPY 08/10/2013 [facility] ERCP N/A 08/14/2017 Procedure: ERCP; Surgeon: Jamey Hdz MD; Location: [facility] MEDICAL PROCEDURE UNIT HIP FRACTURE [...] OTHER SURGICAL HISTORY Endobiliary stent placed at [facility] Removal of lesion Right 2009 Right [...] His studies were sent to [facility]. Three minute walk test did not [...] MD Pulmonary and Critical Care Medicine [facility]/[address] , [facility] [place] [address] documente d in this encounter Plan of [...]
--- OUTSIDE RECORDS SUMMARY | ~2019-11-19 | XMS | Encounter Summary ---
Demographics + + + | Address | [address] | | | [place] [address] | + + + | Home Phone | | + + + | Preferred Language | Unknown | + + + | Marital Status | | + + + | Mandaeism Affiliation | Unknown | + + + | Race | Unknown | + + + | Ethnic Group | Unknown | + + + Author + + + | Author | [facility] | | | and [place] | + + + | Organization | [facility] | | | [...] Team Providers + +------+ + | Care Reference Archivist Name | Role | Phone | + [...] | | | | | | | [place] ERCP DX | | | | | | | COLLECTION | | | | | | | SPECIMEN | | | | | | | BRUSHING/WAS | | | | | | | JOSE [place] | | | | | | | ERCP | | | | | | | BILIARY/PANC | | | | | | | DUCT STENT | | | | | | | EXCHANGE | | | | | | | W/DIL&WIRE | | | | | | | [place] | | | | | | | [...] + + | 08/14/ | Hospital | [facility] | Jamey Penny | Encounter for | | 2018 | Encounter | MED CTR OR INTRA OP | MD Sarkis [address] | removal of biliary | | | | [address] | [address] [place] | stent; Calculus of | | | | [place], [place] | [place] [address] | bile duct with acute | | | | [address] | [phone] | cholecystitis and | | | | [phone] | | obstruction | +--------+ + + [...] of ascending cholangitis and sepsis, treated at [facility]. Had ERCP with sphin cterotomy, stone extraction, and stent placement on 06/26/17. He underwent cholecystectomy in [place] and on the IOC there were possible distal CBD filling defects. Pt reports that he feels well. Denies any abdominal pain presently. PAST HISTORY: Past Medical History: Diagnosis Date Atrial fibrillation (HCC) Backache Bronchitis Bundle branch block, right Calculus of bile duct with acute cholecystitis with obstruction Choledocholithiasis Chronic obstructive pulmonary disease (COPD) ([facility]) Crush injury lower extremities 1966 Left leg [...] BACK SURGERY 1981 Lower back COLONOSCOPY 09/23/2013 [facility] ENDOSCOPY 08/10/2013 [facility] HIP FRACTURE SURGERY Left 2002 Pinning. Repeat in 2003 INGUINAL HERNIA REPAIR 2007 KNEE SURGERY 1968 KNEE SURGERY Right 1967 Open fracture reduction and internal fixation right knee in 1967 LAMINECTOMY Leg surgery Left 1959 Seven Reconstructive surgeries on his left leg and foot in the s with metal remaining . LUMBAR VERTEBRAL FUSION OTHER SURGICAL HISTORY Endobiliary stent placed at [facility] Removal of lesion Right 2010 [...] Class 2 (upper half of tonsil fossa) [place] [employer] Anesthesia Grade:ASA 2 - A [...] Electronically Signed by: Jamey Penny MD 08/14/2017 [facility] VERIFICATION OF CONSENT (PARQ) The patient was counseled regarding the procedure, its indications, risks, potential compli cations and alternatives. Any questions were answered. Consent was obtained. Jamey Penny MD, 08/14/2017 12:59 [facility] Portions of this chart may have been created with RVX voice recognition software. Occasi onal wrong-word or [...] INSTRUCTIONS Patient: William Burns : 1935 Acct: [id number] Exam Date: Monday, August 14, 2017 Doctor: [...] 1 day. Avoiding fatty foods such as [place], hamburgers, [place], ham and pork products, will [...] + + | Performing | Address | City/State[facility] | Phone Number | | [...] 08/14/2017 | [place] | | 12:57 PMMRN: [id number] #: [id number] of : | | | 5Admit Type: AmbulatoryAge: 82Room: [facility] 02Gender: MaleNote | | | Status: FinalizedAttending MD: JAMEY PENNY , [facility] HOMErocedure: | | | ERCPIndications: Bile duct stone(s), Biliary stent | | | removalProviders: JAMEY PENNY MD, Kiah Orozco, | | | RN, Klaus Loco, RAYRAY, Vani Wisdom, | | | Erp Technical Lead, Yinka Dominguez MD | | | (Anesthesia [...] the procedure well.Findings: A | | | escalator service mechanic film of the abdomen was obtained. Surgical [...] | | was it seen on the escalator service mechanic image. - Several filling defects | | [...] PMScope Out: | | | 1:58:46 PM [facility], [address] [place] [address], | | | [place] [address] | | | - KUB today to [...] |Scope Out: 1:58:46 PM | | | [facility], [facility] [address] [facility], [place], [place] | | | [address] | | + + -+ + +---------+ [...] + | [facility] | [address] | [place] | [phone] | | [facility] | | [address] | | | - LABORATORY | | [...] | | | FILTRATION | mL/min/1.73m2 | [facility] | | | KYRGYZ | RATE,ESTIMATED | | MEDICAL | | | | mL/min/1.07w8Ewly than | | CENTER - | | [...] | | | | | mg/dL | [facility] | | | | | | MEDICAL | | | | | | CENTER - | | | | | | LABORATORY | | + + + + + + | Albumin | 4.0 | 3.2 - 5.0 g/dL | [facility] | | | | | | [facility] | | | | | | [...] [address] | [place] | [phone] | | [facility] | | [address] | | | - LABORATORY | | | | + + + + + CBC no Differential (08/14/2017 11:48 AM PDT) + +-------+ + + + | Component | Value | Ref Range | Performed | Pathologist | | | | | At | Signature | + +-------+ + + + | WBC | 7.6 | 4.0 - 11.0 K/uL | [facility] | [facility] | [facility] | | | | | | MEDICAL | | | | | | CENTER - | | | | | | LABORATORY | | + +-------+ + + + | RBC | 4.84 | 4.30 - 5.70 | [facility] | | | | | M/uL | [facility] | | | | [...] + + | [facility] | [address] | [place] | [phone] | | [facility] | | [address] | | | - LABORATORY | | [...]
--- OUTSIDE RECORDS SUMMARY | ~2019-11-19 | XMS | Encounter Summary ---
Demographics + + + | Address | [address] | | | [place] [address] | + + + | Home Phone [...] Team Providers + +------+ + | Care Biology Specialist Name | Role | Phone | + +------+ + | Herlinda Maldonado | PCP | | + +------+ + Encounter Details +--------+ + + + + | Date | Type | Department | Care Team | Description | +--------+ + + + + | 06/28/ | Document-Sc | Health Information | Other, Faculty | | | 2018 | anned | Services [address] | [phone] | | | | | [address] | | | | | | Mailcode: [id number] | | | | | | [facility] | | | | | | [place], [place] | | | | | | [address] | | | | | | [phone] | | | +--------+ + + + [...]
--- OUTSIDE RECORDS SUMMARY | ~2019-11-19 | XMS | Clinical Summary ---
Demographics + + + | Address | [address] | | | [place] [address] | + + + | Home Phone [...] + + | Author | [facility] | + + + | Organization | [facility] | + + + | Address | Unknown | + + + | Phone | Unavailable | + + + Support + + +---------+ + | Name | Relationship | Address | Phone | + + +---------+ + | None Per Pt | ECON | Unknown | Unavailable | + + +---------+ + Care Team Providers + +------+ + | Care Carbon Paper Coating Machine Setter Name | Role | Phone | + +------+ + | Herlinda Maldonado | PCP | | + +------+ + Source Comments BETTINA is fully live on both [facility] and [facility]3] Allergies + + + + + + [...] | | | | 88 | | [facility] INPATIENT REV LOC | | | | | | | + +------+--------+ +--------+--------+--------+ | Washer 13mm 6.6mm Lcp | | Left: | [employer] | | | 219.99 | | Orthopedic Stainless Steel | | Hip | | | | / / | | 4.5-7.3mm Screw Nonsterile - | | | | | | | | [id number]: Qty: 2 on | | | | | | | | 06/03/2018 by Working, | | | | | | | | Nguyễn Chance MD at [facility] | | | | | | | | INPATIENT REV LOC | | | | | | | + +------+--------+ +--------+--------+--------+ | Screw Bone 6.5mm 160mm | | Left: | [employer] | | | 208.48 | | Stainless Steel Full Thread | | Hip | | | | 5 / / | | Orthopedic Cannulated | | | | | | | | Nonsterile - | | | | | | | | [id number]: Qty: 1 on | | | | | | | | 06/03/2018 by Working, | | | | | | | | Nguyễn Chance MD at [facility] | | | | | [...] /[id number] | | Nguyễn Chance MD at [facility] | | | | | [...] RE HMO | | sent | | [place], | | | | | | | | [place] [address] | | + +--------+ +--------+ + +--------+ + +--------+ +--------+ + + | Guarantor Name | Accoun | Relation to | Date | Phone | Billing Address | | | t Type | Patient | of | | | | | | | | | | + +--------+ +--------+ + + | William Burns | Person | Self | [birth year] | [address] | | | al/Fam | | 1935 | [phone] | [place] [address] | | | michelle | | | [...]
--- OUTSIDE RECORDS SUMMARY | ~2019-11-19 | XMS | Encounter Summary ---
Demographics + + + | Address | [address] | | | [place] [address] | + + + | Home Phone | | + + + | Preferred Language | Unknown | + + + | Marital Status | | + + + | Lutheran Affiliation | Unknown | + + + [...] Team Providers + +------+ + | Care Resolution Specialist Name | Role | Phone | [...] | Atrial | Maximilian | [address] | | | | | fibrillation | MD Jon | [place], | | | | | , | [address] | [place] | | | | | unspecified | St [place] | [address] | | | | | type (HCC) | [place], [place] | Phone: | | | | | Procedures | [address] | [phone] | | | | | ECHO | Phone: | Fax: | | | | | Complete | [phone] | [phone] | | | | | | Fax: | | | | | | | [phone] | | +--------+--------+ + + + + [...] | Atrial | Maximilian | [address] | | | | | fibrillation | MD Jon | [place], | | | | | , | [address] | [place] | | | | | unspecified | St [place] | [address] | | | | | type (HCC) | [place], [place] | Phone: | | | | | Procedures | [address] | [phone] | | | | | ECHO | Phone: | Fax: | | | | | Complete | [phone] | [phone] | | | | | | Fax: | | | | | | | [phone] | | +--------+--------+ + + + + Encounter Details +--------+ + + + + | Date | Type | Department | Care Team | Description | +--------+ + + + + | 03/26/ | Hospital | [facility] | Maximilian Goddard | Atrial fibrillation, | | 2019 | Encounter | MED CTR ECHO [address] | MD Jon [address] | unspecified type | | | | [address] [place] | [address] [place] | (HCC) | | | | [place] [address] | [place] [address] | | | | | [phone] | [phone] | | | | | | | [...] | | | | | | [place] | | | | | + + [...] | | | | | | [place] | | | | | + + [...] | LILIAN SOTO Room Number Patient Number [id number] Date | | | of Study 03/26/2019 Visit Number [id number] | | | Referring Physician JON GODDARD MD Accession | | | [id number] [employer] [facility] Number | | | Date of 1935 Interpreting | | | JON GODDARD MD | | | Physician Age 84 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
--- OUTSIDE RECORDS SUMMARY | ~2019-11-19 | XMS | Clinical Summary ---
Demographics + + + | Address | [address] | | | [place] [address] | + + + | Home Phone [...] Providers + +------+ + | Care Clinical Microbiologist Name | Role | Phone | + [...] Sodium | | | 08/03/19 | AKA "Volttyen" - I | | | | | [...] | | albuterol-ipratropiu | | | | 4/20 | | e | | m (DUONEB) [...] mg by mouth | | 0 | 10/1 | | Activ | | (CARDIZEM CD) 180 mg | nightly. | | | 8/20 | | e | | 24 hr capsule | | | | 19 | | | + + + +---------+------+------+-------+ Active Problems + + + | Problem | Noted Date | + + + | Encounter for removal of biliary stent | 08/13/2017 | + + + + + | Overview: 07/13/2017: [place] | | Endobiliary stent placed at [facility] | + + + + + | [...] + + + | Vaccine: Influenza | Completed | 03/08/20 | | | | | 19, | [...] | [employer] [facility] | [facility] | [id number] | 05/21/19 | | | Medica | | | HEALTH | | 19-Pre | | | re | | | MDCR | | sent | | | | + +--------+ +--------+-------+---------+--------+ | [employer] [facility] | [facility] | [id number] | | | | Medica | | [...] Person | Self | [birth year] | [address] | | | al/Fam | | 1935 | [phone] | [place], [place] | | | michelle | | | 4 (Home) | [address] | + +--------+ +--------+ + + | William Burns | Person | Self | [birth year] | | [address] | | | al/Fam | | 1935 | [phone] | [place], [place] | | | michelle | | | 4 (Home) | [address] | + +--------+ +--------+ + + Advance Directives + + + + + | Type | Date Recorded | Patient | Explanation | | | | Visual Effects Artist | | + + + + + | Power of | | | | | Automotive Service Assistant | | | | + + + + + | Advance | 08/09/2017 11:17 | | | | Directive | AM | | | + + + + +
--- OUTSIDE RECORDS SUMMARY | ~2019-11-19 | XMS | Encounter Summary ---
Demographics + + + | Address | [address] | | | [place] [address] | + + + | Home Phone [...] Team Providers + +------+ + | Care Self Storage Manager Name | Role | Phone | [...] | LUIS FERNANDO Figueroa | MD Jun [address] | | | | | Herb Mailcode: [id number] | [place], | | | | | [place], [place] | [place] [address] | | | | | [address] | [phone] | | | | | [phone] | | | +--------+ + + + [...]
--- OUTSIDE RECORDS SUMMARY | ~2019-11-19 | XMS | Encounter Summary ---
Demographics + + + | Address | [address] | | | [place] [address] | + + + | Home Phone | | + + + | Preferred Language | Unknown | + + + | Marital Status | | + + + | Pentecostalism Affiliation | NON | + + + [...] Team Providers + +------+ + | Care Lining Vamper Name | Role | Phone | + [...] | | | | | [place], | [place], [place] | | | | | [place] [address] | [address] | | | | | [phone] | [phone] | | | | | | | [...] AM PST [facility] Intake Exam - [facility] Alan Thomas "Carlos" James Burns is a 83 y.o. male with a PMH significant for prior L THR, SVT, HT N, COPD (non-O2 dependent), prior UGIB. He is admitted to [facility] for skilled therapy following a hospitalization at [facility] from 05/31 to 06/06 for Left Acetabular Fracture in the setting of a prior THR. Hospital course was significant for: Carlos was transferred to [facility] from [facility] on 05/31 for management of a complex [...] independent at baseline. He was brought to [facility] given his medical comorbidities and peyton rn [...] to visit (already scheduled for 07/02/18 at [facility] ). His course was c/b bloating [...] stool, unlikely that EGD would change management lead. He was also seen by the Geriatrics [...] List Diagnosis COPD (chronic obstructive pulmonary disease) ([facility]) Essential hypertension Physical deconditioning Atrial fibrillation ([facility]) Diverticulosis of colon GERD (gastroesophageal reflux disease) Raynaud's syndrome Right fascicular block Closed fracture of anterior column of left acetabulum with routine healing HTN (hypertension) Past Medical History: Diagnosis Date Acute cholangitis 06/27/2017 Aspiration pneumonitis ([facility]) 06/28/2017 Atrial fibrillation ([facility]) 08/13/2017 Choledocholithiasis 06/26/2017 Closed fracture of anterior column of left acetabulum with routine healing 06/11/2018 COPD (chronic obstructive pulmonary disease) ([facility]) Diverticulosis of colon 01/01/2007 Overview: Note: Unchanged GERD (gastroesophageal reflux disease) 08/13/2017 GI bleed 2013 esophageal ulcer s/p clipping 2013 HTN (hypertension) Klebsiella sepsis ([facility]) 06/27/2017 Normocytic anemia Hgb around 11 in 2013 Prediabetes Raynaud's syndrome 05/23/2017 Right fascicular block 05/23/2017 S/P ERCP 06/28/2017 SVT (supraventricular tachycardia) ([facility]) unclear hx. "Possible SVT" per chart in [...] used x 2 since arriving at [facility]) - Continue Mucinex BID per home [...] PGY1 GENERAL INTERNAL MEDICINE AT OFFSITE Pager: [phone] Associated attestation - Crystal Evans MD - [...] the following additions/clarifications/exceptions: none Crystal Evans MD [facility] Division of Internal Medicine and Geriatrics documented [...]
--- OUTSIDE RECORDS SUMMARY | ~2019-11-19 | XMS | Encounter Summary ---
Demographics + + + | Address | [address] | | | [place] [address] | + + + | Home Phone | | + + + | Preferred Language | Unknown | + + + | Marital Status | | + + + | Hindu Affiliation | NON | + + + [...] Providers + +------+ + | Care Rn Anesthesiology Name | Role | Phone | + [...] | | | [place], | [place] [address] | | | | | [place] [address] | [phone] | | | | | [phone] | | | +--------+ + + + [...]
--- OUTSIDE RECORDS SUMMARY | ~2019-11-19 | XMS | Encounter Summary ---
Demographics + + + | Address | [address] | | | [place] [address] | + + + | Home Phone [...] Team Providers + +------+ + | Care Pharmacist Technician Name | Role | Phone | [...] [facility] | | | | | [facility] | [facility] | | | | | Hospital Admitting | [place], [place] | | | | | Desk Located on the | [address] | | | | | 9th floor | [phone] | | | | | [place], [place] | | | | | | [address] | | | +--------+---------+ + + + [...] might be differen t from the original. [facility] Discharge Summary Discharging Provider: VIRGIL GRIMM [...] and intubated prior to tra nsfer to [facility]. Workup was notable for RUQ [...] Your Medications These medications were sent to [id number] [place] [address] [place] [address] Hours: 9AM-7PM MON - FRI / 9AM-6PM [...] Thank you for entrusting your care to [facility] Internal Medicine. If you have any problems or concerns before you are able to follow up with your Primary Care Provider, please call and ask the pack press operator to page the attending physician, Vic Petty MD, wh o was caring for you at discharge. If that physician is not available, ask the pack press operator to page the physician vault person for the Medical Teaching Service. Call us right away if any of the following occur: Recurrent abdominal pain Shaking chills or night sweats Other Discharge Orders and Instructions You will be called by the [facility] GI service within the next week to schedule a repeat appoint ment for ERCP and possible stent removal. Home Health Referral after Hospitalization Comments: I certify that this patient is under my care and that I, or Nurse Practitioner or Physician Client Relationship Executive working with me, had a face to face encounter with this patient on 06/30/2017 On behalf of Attending Physician: Vic Petty MD I am ordering and certify that the following services are medically necessary home health s [facility] Home Health Physical Therapy Evaluate and Treat I certify that the patient is homebound based on the following clinical findings Post-hospi tono weakness, decreased strength and endurance, and tires easily with minimal exertion Follow Up: Schedule the following appointment(s) when you get home DARYL MATHEWS MD . Specialty: Internal Medicine Contact information [facility] [address] [place] [address] [address] [facility] [phone] Discharge Physical Exam: Last 24 hour min/max [...] (HCC) 12) Acute respiratory failure with hypoxia ([facility]) Please refer to the resident discharge summary for additional details. Vic Petty MD, PhD Clinical Hospitalist and Medicine Teaching Services [facility] Pager [phone] I have spent 35 minutes with the [...] might be different from bella landin. PHYSICIAN OIL FIELD PUMPER STUDENT PROGRESS NOTE FOR EDUCATIONAL PURPOSES ONLY [...] Q2H PRN ipratropium-albuterol 3 mL Q6H PRN ovvjjsif-wivbmnk-fxlkxryf-zinc QID PRN oxyCODONE (immediate release) 2.5-5 mg [...] IV/Airways/Catheters: PIV Code status: FULL SHAHEEN Oconnell-S [facility] Physician Client Relationship Executive Program 06/29/17 Kang Zhang MD - 06/29/2017 [...] due to aspiration requiring intubation, transferred to [facility] MICU. Here found to have [...] Hospitalist and Medicine Teaching Services [facility] Pager [phone] I have spent 26 minutes with the [...] interval not displayed. Micro: BLOOD CULTURE WORKUP [[id number]] (Abnormal) [facility] LAB Collected: 06/26/17 0939 Lab [...] List: Active Hospital Problems 1) *Septic shock ([facility]) 2) Choledocholithiasis 3) Acute cholangitis 4) Klebsiella sepsis ([facility]) 5) Aspiration pneumonitis ([facility]) 6) S/P ERCP 7) COPD (chronic obstructive pulmonary disease) ([facility]) 8) Essential hypertension Resolved Hospital Problems 9) Septic shock ([facility]) 10) Non-ST elevation myocardial infarction (NSTEMI), type 2 ([facility]) 11) Acute respiratory failure with hypoxia ([facility]) Assessment: William Burns is a 82 [...] Primary Surrogate Decision Maker Sharon Rodriguez Daughter [phone] Dimas Xavier MD Internal Medicine, PGY-3 #[id number] Louis Hernandez MD - 06/28/2017 2:26 PM [...] management as outpatient (pt prefers facility near [place]) --> if develops post ERCP complications or [...] Horne - 06/28/2017 7:47 AM PST PHYSICIAN OIL FIELD PUMPER STUDENT PROGRESS NOTE FOR EDUCATIONAL PURPOSES ONLY [...] Q2H PRN ipratropium-albuterol 3 mL Q6H PRN nsyqffuy-yzxamrq-waeqfegw-zinc QID PRN oxyCODONE (immediate release) 2.5-5 mg [...] on klebsiella cultures for sensitivity. Spoke with Home Management Supervisor at [facility] @1330, N o sensitivity results yet from [...] Code status: FULL SHONDA OconnellS [facility] Physician Client Relationship Executive Program 06/28/17 Alisha Rai M D - [...] 86 87 78 HCO3 22 24 23 XTURI8ZYR 24 25 24 Q5CHPDDC 96.4 97.0 96.8 FIO2 0.80 0.25 0.21 [...] in the patient's condition). ALISHA MAYNARD MD [facility] [address] [place] [address] Camilo Amaya MD - 11/2017 6:00 AM PST [facility] MEDICAL ICU - PROGRESS NOTE [...] 6.5 mL/Kg (459.6 mL) RR: 22 bpm Cable BW: 70.7 kg FiO2 21 fraction of [...] 87 78 HCO3 -- 22 24 23 ICU8RUS7 -- 108* 348 371 VBGPH 7.27* -- [...] Primary Surrogate Decision Maker Sharon Rodriguez Daughter [phone] This patient was staffed with Dr. Maynard, [...] duct clearance Lyla Maldonado MD Gastroenterology Pager [phone] - Virginia Cerna MD - 06/26/2017 4:38 PM PSTFormatting of this note might be different from the origi nal. PRE PROCEDURE NOTE: MR# [id number] Subjective: William Burns is a 82 y.o. [...] 4 hours. Concern for choledocholithiasis. Transferred t [facility] this morning. Has history of COPD [...] Anesthesiology present and reviewed status of [facility] GI attending. Agreed to proceed with ERCP. [...] results for input(s): PH, PCO2, PO2, HCO3, CLINU2MDF, I9DTZHUP, L8XXKCXSE, FIO2 in the l ast 72 hours. [...] in the patient's condition). ALISHA MAYNARD MD [facility] [address] [place] [address] documented in this enco unter Plan of [...] | + +--------+ + + + | SP-FS-EYL-HB,POC RT | Urgent | 06/26/2017 | | [...] + + + | ECG | Short CT interval | | [facility] | | [...] OF | [address] | [place], [place] | | | CARDIOLOGY | [address] | [address] | | + + + + + [...] | + + + + + | [facility] | [address] | [place] [address] | | | SERVICES, CORE | RICHARD [...] | + + + + + | [facility] | [address] | [place] [address] | | | SERVICES, CORE | [address] [...] | | | LABORATORY | | | [place] | | | SERVICES, | | | [...] | + + + + + | [facility] | [address] | [place] [address] | | | SERVICES, CORE | RICHARD [...] LABORATORY | [address] | [place] [address] | | | SERVICES, CORE | PARK [...] Note | + + | Service Account, Huoli In Interface - 06/28/2017 5:02 PM PST [...] [facility] | [address] | [place], [place] | | | DILAN TURNER OF CARE | [facility] | [address] | | | TESTS | | | [...] FERRIS | [address] | [place] [address] | | | SERVICES, CORE | PARK [...] LABORATORY | [address] | [place] [address] | | | SERVICES, CORE | RICHARD [...] | | | LABORATORY | | | [place] | | | SERVICES, | | | [...] | + + + + + | [facility]ORY | [address] | [place] [address] | | | SERVICES, CORE | [address] [...] | Reference range change effective 01/02/17. | [facility] | | | LABORATORY | | | SERVICES, CORE | + + + + + + + + | Performing | Address | City/State/Zipcode | Phone Number | | Organization | | | | + + + + + | [facility] | [address] | [place] [address] | | | SERVICES, CORE | RICHARD [...] [facility] | [address] | [place], [place] | | | DILAN TURNER OF CARE | [address] | [address] | | | TESTS | | | [...] | + + | Service Account, Shana Choister In Interface - 06/28/2017 10:17 AM PST [...] + | Performing | Address | City/State[facility] | Phone Number | | Organization | [...] [facility] | [address] | [place], [place] | | | IDLAN TURNER OF CARE | [address] | [address] | | | TESTS | | | [...] AM[facility] | [address] | [place], [place] | | | DILAN TURNER OF [place] | [address] | [address] | | | TESTS | | | [...] | | | LABORATORY | | | [place] | | | SERVICES, | | | [...] | + + + + + | [facility] | [address] | [place] [address] | | | SERVICES, CORE | RICHARD [...] | + + + + + | [facility] | [address] | [place] [address] | | | SERVICES, CORE | RICHARD [...] | + + + + + | [facility] | [address] | [place] [address] | | | SERVICES, CORE | [address] [...] LABORATORY | [address] | [place] [address] | | | SARA, YOKASTA | [address] [...] | + + + + + | [facility]ATORY | [address] | [place] [address] | | | SERVICES, CORE | RICHARD [...] (H) | 70 - 99 mg/dL | [facility] - | | | GLUCOSE, [...] + + + | [facility] | [address] | [place], [place] | | | YUE POINT OF [facility] | [address] | [address] | | | TESTS | | | [...] LABORATORY | [address] | [place] [address] | | | SERVICES, CORE | PARK [...] [facility] | | | GRAVITY | Specific Merna | | LABORATORY | | | | [...] | + + + + + | [facility] | [address] | [place] [address] | | | YOKASTA RUIZ | [address] | | | + + + + + ERCP (06/27/2017 6:38 AM PST) + + | Specimen | + + | | + + + + + | Narrative | Performed At | + + + | MRN: | [facility] | | [id number] Date: 06/27/2017Patient Name: William Nair #: | ENDOSCOPY | | [id number] of : 5CSN: [id number] Type: | | | InpatientRoom: SORProcedure: ERCPIndications: | | | For therapy of ascending cholangitis; 82 yo M with | | | sepsis, elevated LFTs and US showing mary dil and 1.3 cm | | | CBDProviders: BRINTHA | | | Thompson MALDONADO MD (Doctor), JORDY SOLANO, | | | RN (Nurse), ESTELA DAMIAN RN (Associate Professor Of Pathology)Referring MD: | | | Requesting Provider: Medicines: [...] The | | | Olympus TJF-Q180V Duodenoscope #[id number] was | | | introduced through the [...] with acute | | | cholangitis. The financial assistance specialist film was normal. The esophagus was | [...] Initiated On: | | | 06/27/2017 6:38 [facility] Letter to: DARYL MATHEWS MD | | [...] + | MRN: | [facility] | | [id number] Date: 06/27/2017Patient Name: William Nair #: | ENDOSCOPY | | [id number] of : 1935SN: [id number] Type: | | | InpatientRoom: SORProcedure: ERCPIndications: | | | For therapy of ascending cholangitis; 82 yo M with | | | sepsis, elevated LFTs and US showing mary dil and 1.3 cm | | | CBDProviders: BRINTHA | | | Thompson MALDONADO MD (Doctor), JORDY SOLANO, | | | RN (Nurse), ESTELA DAMIAN RN (Associate Professor Of Pathology)Referring MD: | | | Requesting Provider: Medicines: [...] The | | | Olympus TJF-Q180V Duodenoscope #[id number] was | | | introduced through the [...] with acute | | | cholangitis. The financial assistance specialist film was normal. The esophagus was | [...] Initiated On: 06/27/2017 | | | 6:38 [facility] Letter to: DARYL MATHEWS MD | | [...] | + + + + + | [facility] | [address] | [place] [address] | | | SERVICES, CORE | PARK [...] LABORATORY | [address] | [place] [address] | | | SARA, YOKASTA | RICHARD [...] | + + + + + | [facility] | [address] | [place] [address] | | | SERVICES, YOKASTA | RICHARD [...] | | | LABORATORY | | | [place] | | | SERVICES, | | | [...] | + + + + + | [facility] | [address] | [place] [address] | | | SERVICES, YOKASTA | RICHARD [...] + + | ECG | Borderline prolonged CT | | [facility] | | | [...] OF | [address] | [place], [place] | | | CARDIOLOGY | [address] | [address] | | + + + + + [...] Note | + --------+ | Service Account, [employer] In Interface - 06/28/2017 9:20 AM [...] | + + + + + | [facility] | [address] | [place] [address] | | | SERVICES, CORE | RICHARD [...] (H) | 70 - 99 mg/dL | [facility] - | | | GLUCOSE, [...] [facility] | [address] | [place], [place] | | | DILAN TURNER OF CARE | [address] | [address] | | | TESTS | | | [...] Note | + + | Service Account, Huoli In Interface - 06/27/2017 9:07 AM PST [...] - [facility] | [address] | [place], [place] | | | DILAN TURNER OF [facility] | [address] | [address] | | | TESTS | | | [...] + | [facility] OF | [address] | [place], [place] | | | CARDIOLOGY | [address] | [address] | | + + + + + [...] procedure, | | | equipment, technical support technician and site/side marked as required. | | [...] | | | | | | Pathology ResidentGilbert | | | | | | Louis [...] number | | | | | | [id number]. Bile duct, | | | | | [...] + + + + + | [facility] | [address] | [place] [address] | | | PATHOLOGY | [address] [...] | | | procedure, equipment, technical support technician and site/side marked as required. | | [...] modified Seldinger technique (a | | | iaxtpnaf-zcji-njn-slcnpe-olnr-lews-nxwplml-amg-plygxqzr) was used for | | | vessel [...] LABORATORY | [address] | [place] [address] | | | YOKASTA RUIZ | [address] [...] | + + + + + | [facility] | [address] | [place] [address] | | | SERVICES, CORE | RICHARD [...] | + + + + + | [facility] | [address] | [place] [address] | | | SERVICES, CORE | RICHARD [...] LABORATORY | [address] | [place] [address] | | | SERVICES, YOKASTA | [address] [...] | | | LABORATORY | | | [place] | | | SERVICES, | | | [...] | + + + + + | [facility] | [address] | [place] [address] | | | SERVICES, CORE | [address] [...] DEPT OF | [address] | [place], [place] | | | CARDIOLOGY | [address] | [address] | | + + + + + [...] LABORATORY | [address] | [place] [address] | | | SERVICES, CORE | P[address] [...] | + + + + + | [facility] | [address] | [place] [address] | | | SERVICES, CORE | RICHARD [...] | + + + + + | [facility] | [address] | [place] [address] | | | SERVICES, CORE | RICHARD [...] | + + + + + | [facility] | [address] | [place] [address] | | | SERVICES, CORE | RICHARD [...] Note | + ----+ | Service Account, Huoli In Interface - 06/26/2017 12:57 PM PST [...] Note | + + | Service Account, Huoli In Interface - 06/26/2017 12:55 PM PST [...] LABORATORY | [address] | [place] [address] | | | SERVICES, | [address] [...] LABORATORY | [address] | [place] [address] | | | SERVICES, | [address] [...] | + + + + + | [facility] | [address] | [place] [address] | | | SERVICES, | [address] [...] + + + | ECG | Prolonged CT interval | | [facility] | | [...] OF | [address] | [place], [place] | | | CARDIOLOGY | [address] | [address] | | + + + + + [...] | | Growth in Anaerobic bottle | [place] | + + + + + + + + | Performing | Address | City/State/Zipcode | Phone Number | | Organization | | | | + + + + + | [facility] | [address] | [place] [address] | | | [place] | | | [...] + | [facility] | [address] | [place] [address] | | | [place] | | | [...] LABORATORY | [address] | [place] [address] | | | YOKASTA RUIZ | [address] [...] | + + + + + | [facility] | [address] | [place] [address] | | | SERVICES, CORE | RICHARD [...] | + + + + + | [facility] | [address] | [place] [address] | | | SERVICES, CORE | RICHARD [...] | + + + + + | [facility] | [address] | [place] [address] | | | SERVICES, CORE | [address] [...] | + + + + + | [facility] | [address] | [place] [address] | | | SERVICES, CORE | [address] [...] | + + + + + | [facility] | [address] | [place] [address] | | | SERVICES, CORE [...] [facility] | [address] | [place] [address] | | | SERVICES, CORE | P[address] [...] | | | LABORATORY | | | [place] | | | SERVICES, | | | [...] + + | [facility] | [address] | [place] [address] | | | SERVICES, CORE | PARK [...] | + + + + + | [facility] | [address] | [place] [address] | | | SERVICES, CORE | [address] | | | + + + + + YB-VC-WUO-HB,POC RT (06/26/2017 8:55 AM PST) + + [...] [facility] | [address] | [place], [place] | | | DILAN TURNER OF CARE | [address] | [address] | | | TESTS | | | [...] | | | | | NEEDED, Starting [facility] 06/28/17 at | | | | | [...]
--- OUTSIDE RECORDS SUMMARY | ~2019-11-19 | XMS | Encounter Summary ---
Demographics + + + | Address | [address] | | | [place] [address] | + + + | Home Phone | | + + + | Preferred Language | Unknown | + + + | Marital Status | | + + + | [employer] Affiliation | NON | + + + | Race | White | + + + | Ethnic Group | Not or | + + + Author + + + | Author | [facility] | + + + | Organization | [facility] | + + + | [...] Providers + +------+ + | Care Paper Machine Operator Name | Role | Phone [...] | [address] | [place], | | | | | [place], | [place] [address] | | | | | [place] [address] | [phone] | | | | | [phone] | | | +--------+ + + + [...]
--- OUTSIDE RECORDS SUMMARY | ~2019-11-19 | XMS | Encounter Summary ---
Demographics + + + | Address | [address] | | | [place] [address] | + + + | Home Phone [...] Team Providers + +------+ + | Care Paint Mixer Hand Name | Role | Phone | + [...] | | | | | [place], | [place], [place] | | | | | [place] [address] | [address] | | | | | [phone] | [phone] | | | | | | | [...] Recinos MD - 06/11/2018 10:00 AM PST [facility] Facility Intake Exam - [facility] Alan Thomas "Carlos" James Burns is a 83 y.o. male with a PMH significant for prior L THR, SVT, HT N, COPD (non-O2 dependent), prior UGIB. He is admitted to [facility] for skilled therapy following a hospitalization at [facility] from 05/31 to 06/06 for Left Acetabular Fracture in the setting of a prior THR. Hospital course was significant for: Carlos was transferred to [facility] from [facility] on 05/31 for management of a [...] independent at baseline. He was brought to [facility] given his medical comorbidities and peyton [...] to visit (already scheduled for 07/02/18 at [facility] Ortho ). His course was c/b [...] blood in stool, unlikely that EGD would chemical cell changer. He was also seen by the Geriatrics [...] List Diagnosis COPD (chronic obstructive pulmonary disease) ([facility]) Essential hypertension Physical deconditioning Atrial fibrillation ([facility]) Diverticulosis of colon GERD (gastroesophageal reflux disease) Raynaud's syndrome Right fascicular block Closed fracture of anterior column of left acetabulum with routine healing HTN (hypertension) Past Medical History: Diagnosis Date Acute cholangitis 06/27/2017 Aspiration pneumonitis ([facility]) 06/28/2017 Atrial fibrillation ([facility]) 08/13/2017 Choledocholithiasis 06/26/2017 Closed fracture of anterior column of left acetabulum with routine healing 06/11/2018 COPD (chronic obstructive pulmonary disease) ([facility]) Diverticulosis of colon 01/01/2007 Overview: Note: Unchanged GERD (gastroesophageal reflux disease) 08/13/2017 GI bleed 2013 esophageal ulcer s/p clipping 2013 HTN (hypertension) Klebsiella sepsis ([facility]) 06/27/2017 Normocytic anemia Hgb around 11 in 2013 Prediabetes Raynaud's syndrome 05/23/2017 Right fascicular block 05/23/2017 S/P ERCP 06/28/2017 SVT (supraventricular tachycardia) ([facility]) unclear hx. "Possible SVT" per chart in [...] (has used x 2 since arriving at [facility]) - Continue Mucinex BID per home [...] PGY1 GENERAL INTERNAL MEDICINE AT OFFSITE Pager: [phone] Associated attestation - Crystal Evans MD - [...] the following additions/clarifications/exceptions: none Crystal Evans MD [facility] Division of Internal Medicine and Geriatrics [...]
--- OUTSIDE RECORDS SUMMARY | ~2019-11-19 | XMS | Encounter Summary ---
Demographics + + + | Address | [address] | | | [place] [address] | + + + | Home Phone [...] Team Providers + +------+ + | Care Biomedical Electronics Technician Name | Role | Phone | [...] | | | | | [place], | [place], [place] | | | | | [place] [address] | [address] | | | | | [phone] | [phone] | | | | | | | [...]
--- OUTSIDE RECORDS SUMMARY | ~2019-11-19 | XMS | Encounter Summary ---
Demographics + + + | Address | [address] | | | [place] [address] | + + + | Home Phone [...] + + + | Author | [facility] | + + + | Organization | [facility] | + + + | [...] Providers + +------+ + | Care Assurance Manager Name | Role | Phone | [...] | | | | | [place], | [place], [place] | | | | | [place] [address] | [address] | | | | | [phone] | [phone] | | | | | | | [...]
--- OUTSIDE RECORDS SUMMARY | ~2019-11-19 | XMS | Encounter Summary ---
Demographics + + + | Address | [address] | | | [place] [address] | + + + | Home Phone [...] + + | Author | [facility] | + + + | Organization | [facility] | + + + | Address | Unknown | + + + | Phone | Unavailable | + + + Support + + +---------+ + | Name | Relationship | Address | Phone | + + +---------+ + | None Per Pt | ECON | Unknown | Unavailable | + + +---------+ + Care Team Providers + +------+ + | Care Chair Upholsterer Name | Role | Phone | + [...] Mitesh | | | | | [facility] | [facility] | | | | | Hospital Admitting | [place], [place] | | | | | Desk Located on the | [address] | | | | | 9th floor | [phone] | | | | | [place], [place] | | | | | | [address] | | | +--------+ + + + [...] | | +--------+ + + + | Registered Nurse Nursery | 06/27/17; 2205; Medium | 06/27/172205 by | | | al | | Brittney Batuista RN | | | Sarar | | [...] | | Endotracheal Tube; 7.5; Oral; | SENIOR INDUSTRIAL ENGINEER | SENIOR INDUSTRIAL ENGINEER | | | 06/03/18; 1418 | | [...] | Narrative Attending: CATHI MACARIO Performed by SENIOR INDUSTRIAL ENGINEER | | | DONNIE CARDONA | | [...]
--- OUTSIDE RECORDS SUMMARY | ~2019-11-19 | XMS | Encounter Summary ---
Demographics + + + | Address | [address] | | | [place] [address] | + + + | Home Phone [...] Team Providers + +------+ + | Care Melt Room Operator Name | Role | Phone | [...] | [address] | [place], | | | | | [place], | [place] [address] | | | | | [place] [address] | [phone] | | | | | [phone] | | | +--------+ + + + [...]
--- OUTSIDE RECORDS SUMMARY | ~2019-11-19 | XMS | Encounter Summary ---
Demographics + + + | Address | [address] | | | [place] [address] | + + + | Home Phone [...] Team Providers + +------+ + | Care Motor Brakeman Name | Role | Phone | + [...] fixation of | | | | Rd [facility] | [facility] [address] | acetabular | | | | Hospital Admitting | [place], [place] | lesly-prosthetic | | | | Desk Located on the | [address] | fracture | | | | 9th floor | [phone] | | | | | [place], [place] | | | | | | [address] | | | +--------+---------+ + + + [...] might be differe nt from the original. 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 Additional Diagnoses: COPD (chronic obstructive pulmonary disease) ([facility]) Essential hypertension Physical deconditioning Procedures 06/03/2018 Closed [...] they suspect your wound is infected. Call [facility] Orthopedics first at [phone]. Activity NON Weight bearing on left leg. For approximately 4 weeks to be determined at postoperative clinic visit. Condition on Discharge Stable Follow-Up Appointments ORTHOPEDICS OUTPATIENT CLINIC: Future Appointments Provider Department Dept Phone Center 07/02/2018 1:40 PM Nguyễn Chance Working Orthopaedics at [facility] [phone] Orthopedics PCP: As needed for any medical [...] mg by mouth once daily at bedtime. [facility] Orthopaedic Service Pain Policy At the [...] administration instructions. - Call Orthopedic Clinic at [phone] if any persistent, localized swelling that does [...] and ask for the orthopaedic surgery resident industrial relations manager. Additional Post-Op Instructions / What to [...] Condition on Discharge: Improved Discharging Patient To: [facility] Facility Date and Time of Discharge Summary Completion: 06/07/2018, 2:45 PM Discharging Provider: ELISE Mckeon Discharging Attending: Nguyễn Shepard MD Thank you for the opportunity to take care of William Burns during this inpatient stay, it has been our pleasure. ELISE Mckeon [facility] Department of Orthopaedics & Rehabilitation [address] [facility] Mail Code: OP31 Dileep CHAPPELL [id number] documented in t his encounter Medications at [...] to have left pelvic fracture, transferred to [facility] Orthopedic Surgery service for surg ical management. [facility] initially consulted for pre-operative [...] says he uses sparingly. On arrival to [facility] he was on 4 L NC [...] Sanchez MD Attending Physician Clinical Hospitalist Services [facility] Pager [phone] Please call or page me with any questions or concerns. Doe Newman MD - 06/06/2018 9:11 AM PST Orthopaedic Surgery Progress Note Patient: /Age: MRN: CSN: Date: Admission Date: Hospital Day: Orthopaedic Attending: William Burns 1935 83 y.o. [id number] 06/06/2018 05/31/2018 6 Nguyễn Shepard MD Diagnosis: [...] ORTHO TRAUMA & FRACTURE, ASAD Conti - (iJe Shepard) Subjective: Doing well, pain controlled, says [...] to have left pelvic fracture, transferred to [facility] Orthopedic Surgery service for surg ical management. [facility] initially consulted for pre-operative [...] says he uses sparingly. On arrival to [facility] he was on 4 L NC [...] Sanchez MD Attending Physician Clinical Hospitalist Services [facility] Pager [phone] Please call or page me with any questions or concerns. Doe Newman MD - 06/05/2018 7:10 AM PST Orthopaedic Surgery Progress Note Patient: /Age: MRN: CSN: Date: Admission Date: Hospital Day: Orthopaedic Attending: William Burns 1935 83 y.o. [id number] 06/05/2018 05/31/2018 5 Nguyễn Shepard MD Diagnosis: [...] refill < 2 seconds Doe Gongora MD [facility] [place] Department of Orthopaedics & Rehabilitation [address] [place] [address] Mail Code: OP31 [facility] [address] Kg Snider MD - 06/04/2018 10:03 AM [...] to have left pelvic fracture, transferred to [facility] Orthopedic Surgery service for surg ical management. [facility] initially consulted for pre-operative [...] says he uses sparingly. On arrival to [facility] he was on 4 L NC [...] Sanchez MD Attending Physician Clinical Hospitalist Services [facility] Pager [phone] Please call or page me with any questions or concerns. Devendra Scales MD - 06/04/2018 7:48 AM PST Orthopaedic Surgery Progress Note Patient: /Age: MRN: CSN: Date: Admission Date: Hospital Day: Orthopaedic Attending: William Burns 1935 83 y.o. [id number] 06/04/2018 05/31/2018 4 Nguyễn Shepard MD Diagnosis: [...] [facility] & FRACTURE, ASAD Conti - (Jie Sheprad) Subjective: Has had some dark brown emesis [...] refill < 2 seconds Doe Gongora MD [facility] Department of Orthopaedics & Rehabilitation [address] [place] [address] Mail Code: OP31 [facility] [address] Yordy, Devendra Allen MD - 06/03/2018 8:32 PM PST [facility] DEPARTMENT OF ORTHOPAEDICS & REHABILITATION POST-OPERATIVE [...] MD Orthopaedic Surgery Resident 06/03/2018, 8:33 PM [facility] Department of Orthopaedics & Rehabilitation [address] [facility] Mail Code: OP31 [place] [address] Jade Messina MD - 06/02/2018 8:36 AM [...] Please call Orthopaedic Trauma and Fracture at [phone] to schedule a followup within 2 weeks from discharge. ALEXA VICKERS MD Pager: [phone] 06/02/2018 Doe Newman MD - 06/01/2018 8:27 AM PST Orthopaedic Surgery Progress Note Patient: /Age: MRN: CSN: Date: Admission Date: Hospital Day: Orthopaedic Attending: William Ramirez Grant 1935 83 y.o. [id number] 06/01/2018 05/31/2018 1 Nguyễn Shepard MD Diagnosis: [...] make a follow up appointment in select specialty hospitally 2-3 weeks with ORTHO TRAUMA & [...] seconds Reflexes: not performed Doe Gongora MD [facility] [place] Department of Orthopaedics & Rehabilitation [address] [facility] Mail Code: OP31 Dileep CHAPPELL [id number] documented in this enco unter Plan of [...] | + + + + + | [facility] [employer] | [address] | [place] [address] | | | SERVICES, CORE | RICHARD [...] | | | LABORATORY | | | SERBIAN | | | SERVICES, | | | [...] + + + + + | [facility] | [address] | [place] [address] | | | SERVICES, CORE | RICHARD [...] LABORATORY | [address] | [place] [address] | | | SERVICES, CORE | PARK [...] | | | LABORATORY | | | SERBIAN | | | SERVICES, | | | [...] + | [facility] | [address] | [place] [address] | | | SARA, YOKASTA | RICHARD [...] | + + + + + | [facility] | [address] | [place] [address] | | | SERVICES, CORE | PARK [...] | + + + + + | [facility] | [address] | [place] [address] | | | SERVICES, CORE | [address] | | | + + + + + X-RAY PORTABLE 2 VIEW ABDOMEN (KUB AND UPRIGHT) (06/04/2018 2:32 PM PST) + + | Specimen | + + | | + + + + + | Narrative | Performed At | + + + | EXAM: [place] 2 VIEW ABDOMEN (KUB AND UPRIGHT) History: [...] Note | + + | Service Account, [employer] Res In Interface - 06/04/2018 4:24 PM PST EXAM: [place] 2 VIEW | | ABDOMEN (KUB AND [...] | + + + + + | [employer] | [address] | [place] [address] | | | SERVICES, CORE | RICHARD [...] | + + + + + | [facility] | [address] | [place] [address] | | | SERVICES, CORE | PARK [...] | + + + + + | [facility] | [address] | [place] [address] | | | SERVICES, CORE | RICHARD [...] | | | LABORATORY | | | SERBIAN | | | SERVICES, | | | [...] | + + + + + | [employer] | [address] | [place] [address] | | | SERVICES, CORE | RICHARD [...] | | Attending Surgeon: Nguyễn Shepard MD Crinkling Machine Operator(s): Devendra Allen | | MD Avinash. Preoperative [...] He | | was transferred to the [facility]. A sacral bump consisting of 5 squared [...] problem was referred to my care at [facility] by another | | orthopaedic surgeon. The patient is from the [facility] and traveled many miles to | | get to [facility], bypassing several other hospitals due to [...] 06/03/2018 14:26:09DT: | | 06/03/2018 16:58:33Job #: [id number] | + + MAGNESIUM, PLASMA (06/03/2018 4:37 [...] [facility] | [address] | [place] [address] | | | SERVICES, CORE | RICHARD [...] OF | [address] | [place], [place] | | | CARDIOLOGY | [address] | [address] | | + + + + + [...] [facility] | [address] | [place], [place] | | | [facility] [place] | [address] | [address] | | | TESTS | | | [...] [facility] | [address] | [place], [place] | | | [facility] | [address] | [address] | | | TESTS | | | [...] | + + + + + | [facility] | [address] | [place] [address] | | | SERVICES, CORE | RICHARD [...] | | | LABORATORY | | | SERBIAN | | | SERVICES, | | | [...] | + + + + + | [facility] | [address] [facility] | [place] [address] | | | SERVICES, CORE | RICHARD [...] OF | [address] | [place], [place] | | | CARDIOLOGY | [address] | [address] | | + + + + + [...] LABORATORY | [address] | [place] [address] | | | SERVICES, CORE | PARK [...] | + + + + + | [facility] | [address] | [place] [address] | | | SERVICES, CORE | RICHARD [...] | | | LABORATORY | | | SERBIAN | | | SERVICES, | | | [...] + + + + | [facility] [employer] | [address] | [place] [address] | | | SERVICES, CORE | PARK [...] + | [facility] | [address] | [place] [address] | | | SERVICES, | [address] [...] | + + + + + | [facility] | [address] | [place] [address] | | | SERVICES, | [address] [...] | + + + + + | [facility] | [address] | [place] [address] | | | SERVICES, YOKASTA | [address] | | | + + + + + X-RAY KNEE 2 VIEWS LEFT (06/01/2018 11:48 AM PST) + + | Specimen | + + | | + + + + + | Narrative | Performed At | + + + | EXAM: KNEE 2 VIEWS LEFT HISTORY: eval traction pin placement | [facility] | | COMPARISON: None. FINDINGS/IMPRESSION: Interval [...] | + + + + + | [facility] | [address] [facility] | [place] [address] | | | SERVICES, CORE | RICHARD [...] | | | LABORATORY | | | SERBIAN | | | SERVICES, | | | [...] | + + + + + | [facility] | [address] | [place] [address] | | | SERVICES, CORE | RICHARD [...] Note | + + | Service Account, [employer] Res In Interface - 06/01/2018 9:25 AM [...] Denis MD 06/01/2018 9:24 AM | |Preliminary: Fortnio Denis MD | |Dictation initiated: Fortino Denis [...] LABORATORY | [address] | [place] [address] | | | SERVICES, CORE | PARK [...] | | | LABORATORY | | | SERBIAN | | | SERVICES, | | | [...] the MDRD equation recommended by the | [facility] | | National Kidney Disease Education [...] | + + + + + | [facility] | [address] | [place] [address] | | | YOKASTA URIZ | [address] | | | + [...] 06/01/18 at | | | 1647, Until [facility] 06/06/18 at 2229, | | | [...]
--- OUTSIDE RECORDS SUMMARY | ~2019-11-19 | XMS | Encounter Summary ---
Demographics + + + | Address | [address] | | | [place] [address] | + + + | Home Phone | | + + + | Preferred Language | Unknown | + + + | Marital Status | | + + + | Oriental Orthodox Affiliation | NON | + + [...] Team Providers + +------+ + | Care Rubber Grinder Name | Role | Phone | + [...] [address] | | | | | [place], [place] | [place], [place] | | | | | [address] | [address] | | | | | [phone] | [phone] | | | | | | | [...]
--- OUTSIDE RECORDS SUMMARY | ~2019-11-19 | XMS | Encounter Summary ---
Demographics + + + | Address | [address] | | | [place] [address] | + + + | Home Phone | | + + + | Preferred Language | Unknown | + + + | Marital Status | | + + + | Shinto Affiliation | NON | + + + | Race | White | + + + | Ethnic Group | Not or | + + + Author + + + | Author | [facility] | + + + | Organization | [facility] | + + + [...] Team Providers + +------+ + | Care Starch And Prosize Mixer Name | Role | Phone | [...] | [address] | [place], | | | | | [place], | [place] [address] | | | | | [place] [address] | [phone] | | | | | [phone] | | | +--------+ + + + [...]
--- OUTSIDE RECORDS SUMMARY | ~2019-11-19 | XMS | Encounter Summary ---
Demographics + + + | Address | [address] | | | [place] [address] | + + + | Home Phone | | + + + | Preferred Language | Unknown | + + + | Marital Status | | + + + | Denominational Affiliation | Unknown | + + + | Race | Unknown | + + + | Ethnic Group | Unknown | + + + Author + + + | Author | [facility] | | | and [place] | + + + | Organization | [facility] | [...] Providers + +------+ + | Care Planning Intern Name | Role | Phone | + +------+ + PCP | Unavailable | + +------+ + Encounter Details +--------+ + + + + | Date | Type | Department | Care Team | Description | +--------+ + + + + | 08/10/ | Hospital | [facility] | Sudeep Sarabia, | GI bleed; Lower | | 2013 - | Encounter | [facility] | MD Carlos [address] | abdominal pain; HTN | | | | CLINICAL DECISION | [place] [address] | (hypertension) | | 08/13/ | | UNIT [address] [facility] | [phone] | | | 2013 | | [place], [place] | | | | | | [address] | | | | | | [phone] | | | +--------+ + + + [...] 1735 Date of Service: 08/13/1343 Status: Signed Rock Breaker: Iban Medina MD (Physician) Related Notes: Original Note by Iban Medina MD (Physician) filed at 08/13/13 1524 HOSPITALIST DISCHARGE SUMMARY Patient ID: William Hurst [id number] 78 y.o. 1935 Admit date: 08/10/2013 Discharge [...] loss. The patien t was brought to [facility] and was transferred to [facility] for a GI evaluation. Dr. Ball from gastroenterology was consulted because of the ac rolanda GI bleed. The patient was started on [...] endoscopy the patient was transferred to the [facility] floor. Serial hemoglobin and hematocrit were checked. [...] are the prescriptions that you need to leaf size picker. You may get these medications from any pharmacy. furosemide 40 MG tablet omeprazole 20 MG capsule Activity: activity as tolerated Diet: cardiac Follow up: Daryl Mathews MD [address] [place] [address] [place] [address] Schedule an appointment as soon as possible for a visit Perry Ball MD [address] [facility] [address] In 2 weeks Discharge took approximately 40 [...] Date of Service: 08/13/13 1220 Status: Signed Rock Breaker: Danielle Rubin RN (Registered Nurse) Pt ready for DC. All DC instructions given and understood, at bedside, pt enjoying roxane ch informed to call when through to be wheeled out. Danielle Rubin RN onver audrey Transaction, Provider Unknown - 08/12/2013 3:02 PM PDT Case Management by Diane Hightower RN at 08/12/13 1505 Author: Diane Hightower RN Service: (none) Author Type: Registered Nurse Filed: 08/12/13 150 Date of Service: 08/12/13 1502 Status: Addendum Rock Breaker: Diane Hightower RN (Registered Nurse) Related Notes: [...] Notes by Iban Medina MD at 08/12/13 0847 Author: Iban Medina MD Service: Hospitalist Author Type: Physician Filed: 08/12/13 1313 Date of Service: 08/12/1364 Status: Signed Rock Breaker: Iban Medina MD (Physician) [facility] Service: Hospitalist Progress Note Hospital Day: LOS: [...] hours No results found for this basename: PHART:3,PO2ART:3,UFS1GEU:3,Q6LTMASP:3,BEART:[address] 168 hours Lab [...] 08/12/131929 Date of Service: 08/11/131913 Status: Signed Rock Breaker: Perry Ball MD (Physician) Related Notes: Original Note by Perry Ball MD (Physician) filed at 08/11/13 1 926 [facility] Service: Gastroenterology Progress Note Hospital Day: LOS: [...] 08/11/131929 Date of Service: 08/11/131903 Status: Addendum Rock Breaker: Alexys Nolan MD (Physician) Related Notes: Original Note by Alexys Nolan MD (Physician) filed at 08/11/131909 [facility] Service: Hospitalist Progress Note Hospital Day: LOS: [...] - - 66 - - - - 08/10/13 235 87/52 mmHg - - 70 - - - - 08/10/13 2247 133/86 mmHg - - 76 14 94 % - - 08/10/137 130/58 mmHg 97.7 F (36.5 C) Oral [...] Date of Service: 08/11/13 0657 Status: Signed Rock Breaker: Milton Khoury RN (Registered Nurse) Pt has [...] 08/10/132216 Date of Service: 08/10/132216 Status: Signed Rock Breaker: Lashawn Soria RPH (Pharmacist) Clinical Pharmacy Note: [...] Author: MICHAEL Mc Service: (none) Author Type: Statistical Consultant Filed: 08/10/132133 Date of Service: 08/10/132130 Status: Signed Rock Breaker: MICHAEL Mc (Statistical Consultant) 08/10/132129 Discharge Planning Evaluation Admitting Diagnosis GIB Readmission No Living Arrangements Spouse/significant other Support Systems Spouse/significant other;Children Type of Residence Private residence House type House-1 story Bathrooms on 1st Floor 1-Full Independent with ADL's Yes Independent with Mobility Yes Home Care Services No Caregiver after Discharge Yes Caregiver Name Camryn Hurst Relationship to Patient Spouse Phone number [phone] Mental Status Oriented Power of Pharmacy Picking Tech Yes Power of Pharmacy Picking Tech Name Camryn Hurst Power of Pharmacy Picking Tech Resources Financial concerns No Transportation issues No Patient/Family concerns No Prescription Plan Yes Met with pt to discuss discharge planning. Pt is a 78 y.o., male who lives with his in a private residence in [place]. Pt is independent and very active. Pt reports he mows h is own grass and cares for his chickens. Pt is independent with ADLs, uses no DME, has never used HH. Pt is not on O2/cpap/bipap. He is not engaged in o/p medical services. Pt reports his will come to [facility] in the morning. Pt has no family in [facility]. His Dtr Radha Renteria lives near him in [place]. Pt denies d/c needs at this time. Patient's PCP is: DARYL MATHEWS Patient's insurance: [facility] care Coverage concerns: n/a Medication coverage/concerns: n/a [...] Service: (none) Author Type: Physician Filed: 08/10/13 2496 Date of Service: 08/10/131928 Status: Signed Rock Breaker: Sudeep Sarabia MD (Physician) Related Notes: Original Note by Sudeep Sarabia MD (Physician) filed at 08/10/132024 [facility] Service: Hospitalist Admission History & Physical Date [...] initially the hospital that was admitting [facility] the patient might have had lower gastrointestinal [...] with p.r.n. doses of Prilosec and perhaps fpvl-fzf-omvcuvt Tums. He sta denise that his indigestion occurs when he eats food such as tomato sauce containing foods or s picy sauce. These symptoms have been ongoing for the past 10 years or so. There was no escal ation of these symptoms in the recent past. The patient was initially brought by emergency room to [facility]. Due to lack of beds, as reported by the patient, he was transferred to [facility] for further evaluation. His CMP from [facility] in [place] showed sodium 138, potass ium 4.7, chloride [...] was 17.8 (normal 4.5 to 9.8) at [place] lab. Troponin I was less than 0.1, which was negative. A 12-lead EKG at [facility] showed normal sinus rhythm with a rate of 66 beats per minute, incomplete right bundle bran ch block, no acute ST or T-wave changes to suggest ischemic process. The patient was evaluated at [facility] Emergency Room by . T he patient had no further episodes of hematemesis or lower gastrointestinal bleeding. His r epeat H and H were 11.8 and 35.6 respectively. CMP was fairly unchanged from the one obtaine d at [place]. the patient is being admitted to our [...] male who was transferred via EMS from [facility] in [place] with the followin. Gastrointestinal bleed. The patient had an episode of large hematemesis this morning wit hout further recurrence. Possible differential diagnosis includes peptic ulcer disease in vi ew of his symptoms of recurrent GERD, severe gastritis, Soumya-Magaña tear, AV malformation, or others. Continue initiated [...] MD Service: Gastroenterology Author Type: Physician Filed: 08/12/13 193 Date of Service: 08/10/131921 Status: Signed Rock Breaker: Perry Ball MD (Physician) Related Notes: Original Note by Perry Ball MD (Physician) filed at 08/10/13 1 931 [facility] Service: Gastroenterology Initial Consult Note Moderate Sedation [...] his usual state of health until this [facility]. The patient had breakfast without having any problem. He later felt bad, which was nonsp ecific. At about 10:00 a.m., the patient had an urge to vomit. He went to the rest room. He felt dizzy, sweating, and then he vomited red blood clots once. After that, the patient was brought to [facility]. He had blood test done. The blood test done and CT scan of the abdomen and pelvis were done. He was then sent to [facility] for fur ther evaluation. At [facility], the patient had pain across the [...] presented with one episode of hematemesis. At pr esent, the patient had stable hemodynamic status. [...] 08/10/131919 Date of Service: 08/10/131919 Status: Signed Rock Breaker: Francisco Hall RN (Registered Nurse) GI doctor at bedside for eval. Francisco Hall RN 08/10/131919 onver audrey Transaction, Provider Unknown - 08/10/2013 6:19 PM PDT ED Notes by Francisco Hall RN at 08/10/131818 Author: Francisco Hall RN Service: (none) Author Type: Registered Nurse Filed: 08/10/131818 Date of Service: 08/10/131818 Status: Signed Rock Breaker: Francisco Hall RN (Registered Nurse) Patient given [...] 08/10/131757 Date of Service: 08/10/131757 Status: Signed Rock Breaker: Francisco Hall RN (Registered Nurse) Dr. White at bedside. Francisco Hall RN 08/10/131757 Sudeep Edmond MD - 08/10/2013 5:55 PM PDT ED Provider Notes by Sudeep White MD at 08/10/131754 Author: Sudeep White MD Service: (none) Author Type: Physician Filed: 08/13/13 1410 Date of Service: 08/10/131754 Status: Signed Rock Breaker: Sudeep White MD (Physician) Procedure Orders: 1. POCT occult blood stool [[id number]] ordered by Christos Faith at 08/10/13 1802 [facility] Department of Emergency Medicine Provider Row Name 08/10/13 1614 08/10/13 1543 Pre-arrival Provider Pre-arrival Provider Another ED [facility] Pertinent History and Concerns pt was going [...] who was transferred to ED from [facility] with a CC of hematemesis, for admission [...] Procedure: ESOPHAGOGASTRODUODENOSCOPY; Surgeon: Perry Ball MD; Location: [facility] ENDOSCOPY; Service: Gastroenterology; Laterality: N/A; Prior to [...] Course 5:57 PM Pt transferred from [facility] with upper GI bleed and hematemesis. I will order for repeat blood count, check liver enzymes, INR, aPTT, GI consult, and arrange for pt admi ssion. 6:02 PM Hemoccult performed. (See procedure for details). 6:08 PM Reviewed work-up and records from [facility]. They diagnosed the pt with having an Upper GI bleed, which is not supported by the hx or exam. CT of abd was normal. Lab work from [facility] was not significant. Mildly anemic. I will [...] Value Ref Range Date/Time Complete Metabolic Panel [[id number]] (Abnormal) Collected:08/10/131814 Order Status:Completed Updated:08/10/131853 Specimen Information:Blood [...] 65 U/L EGFR >60 >60 mL/min/1.73m2 Lipase [[id number]] (Abnormal) Collected:08/10/131814 Order Status:Completed Updated:08/10/131853 Specimen Information:Blood LIPASE 66 (L) 73 - 393 U/L CBC w Auto Diff [[id number]] (Abnormal) Collected:08/10/131814 Order Status:Completed Updated:08/10/131839 Specimen Information:Blood [...] RBC AND PLT MORPHOLOGY APPEAR NORMAL PT [[id number]] Collected:08/10/131814 Order Status:Completed Updated:08/10/131838 Specimen Information:Blood INR 1.1 PTT [[id number]] (Abnormal) Collected:08/10/131814 Order Status:Completed Updated:08/10/131838 Specimen Information:Blood [...] visit [address] [place] [address] Perry Ball MD In 2 weeks [address] [facility] [address] Discharge Medications: New Prescriptions OMEPRAZOLE (PRILOSEC) 20 [...] 08/10/131745 Date of Service: 08/10/131744 Status: Addendum Rock Breaker: Francisco Hall RN (Registered Nurse) Related Notes: Original Note by Francisco Hall RN (Registered Nurse) filed at 08/10/13 1 746 EMS reports: Pt came in this afternoon for vomiting blood at his house. Upset stomach. Pt l aying in bed when EMS arrived. Blood covering pts shirt per EMS report. [facility] was "ful l" so they transferred him here. Francisco Hall RN 08/10/131745 Francisco Hall RN 08/10/131745 onver audrey Transaction, Provider Unknown - 08/10/2013 5:45 PM PDT ED Notes by Francisco Hall RN at 08/10/131744 Author: Francisco Hall RN Service: (none) Author Type: Registered Nurse Filed: 08/10/131744 Date of Service: 08/10/131744 Status: Signed Rock Breaker: Francisco Hall RN (Registered Nurse) Bed:12
Expected date:
Expected time:
Means of arrival:
Comments:
[facility] transfer onver audrey Transaction, Provider Unknown - 08/10/2013 5:30 PM PDT ED Notes by Rashmi Doe RN at 08/10/131729 Author: Rashmi Doe RN Service: (none) Author Type: Registered Nurse Filed: 08/10/131729 Date of Service: 08/10/131729 Status: Signed Rock Breaker: Rashmi Doe RN (Registered Nurse) Stable, no change en route Rashmi Doe RN 08/10/131729 docume nted in this encounter Miscellaneous Notes Op Note - Perry Ball - 08/10/2013 9:56 PM PDT Op Note by Perry Ball MD at 08/10/132155 Author: Perry Ball MD Service: Gastroenterology Author Type: Physician Filed: 08/10/132204 Date of Service: 08/10/132155 Status: Addendum Rock Breaker: Perry Ball MD (Physician) Related Notes: Original Note by Perry Ball MD (Physician) filed at 08/10/13 203 [facility] Service: Gastroenterology ENDOSCOPY SUITE PROCEDURE NOTE Esophagogastroduodenoscopy [...] | Sudeep White MD 08/13/2013 2:10 PM [facility] | EXTERNAL LAB | | [facility] Department of Emergency Medicine Provider Row | [...] who was transferred to ED from [facility] with a | | | CC of [...] Perry Ball MD; | | | Location: [facility] ENDOSCOPY; Service: Gastroenterology; | | [...] | | | Pt transferred from [facility] with upper GI bleed and | | | hematemesis. I will order for repeat blood count, check liver | | | enzymes, INR, aPTT, GI consult, and arrange for pt admission. | | | 6:02 PM Hemoccult performed. (See procedure for details). 6:08 PM | | | Reviewed work-up and records from [facility]. They diagnosed the | | | pt with having an Upper GI bleed, which is not supported by the hx | | | or exam. CT of abd was normal. Lab work from [facility] was not | | | significant. Mildly [...] Date/Time Complete Metabolic | | | Panel [[id number]] (Abnormal) Collected:08/10/135 Order | | | Status:Completed Updated:08/10/131853 Specimen [...] | | EGFR >60 >60 mL/min/1.73m2 Lipase [[id number]] (Abnormal) | | | Collected:08/10/131814 Order Status:Completed Updated:08/10/13 | | | 1854 Specimen Information:Blood LIPASE 66 (L) 73 - 393 U/L | | | CBC w Auto Diff [[id number]] (Abnormal) Collected:08/10/131814 | | | Order Status:Completed [...] MORPHOLOGY APPEAR NORMAL | | | PT [[id number]] Collected:08/10/131814 Order Status:Completed | | | Updated:08/10/131838 Specimen Information:Blood INR 1.1 | | | PTT [[id number]] (Abnormal) Collected:08/10/131814 Order | | | Status:Completed [...] for a visit [address] | | | [facility] [address] [place] [address] [place] | | | MD Lanny In 2 weeks [address] [facility] [address] | | | [phone] Discharge Medications: New Prescriptions | | | [...] EXTERNAL | | | | performed at [facility], [address] | | LAB | | | | [address], | | | | | | [place] [address] | | | | + + + + + + | Red Blood | 3.58 (L)Comment: Testing | 4.20 - 5.70 | EXTERNAL | | | Cells | performed at [facility], [address] | M/uL | LAB | | | Counted | [address], | | | | | | [place] [address] | | | | + + + + + + | Hemoglobin | 11.0 (L)Comment: Testing | 13.2 - 17.0 | EXTERNAL | | | | performed at [facility], [address] | g/dL | LAB | | | | [address], | | | | | | [place] [address] | | | | + + + + + + | Hematocrit, | 33.5 (L)Comment: Testing | 39.0 - 50.0 % | EXTERNAL | | | POC | performed at [facility], [address] | | LAB | | | | [address], | | | | | | [place] [address] | | | | + + + + + + | MCV | 93.6Comment: Testing | 80.0 - 100.0 fl | EXTERNAL | | | | performed at [facility], [address] | | LAB | | | | [address], | | | | | | [place] [address] | | | | + + + + + + | MCH | 30.7Comment: Testing | 27.0 - 34.0 pg | EXTERNAL | | | | performed at [facility], [address] | | LAB | | | | [address], | | | | | | [place] [address] | | | | + + + + + + | MCHC | 32.8Comment: Testing | 32.0 - 35.5 | EXTERNAL | | | | performed at [facility], [address] | g/dL | LAB | | | | [address], | | | | | | [place] [address] | | | | + + + + + + | RDW-CV | 43.3Comment: Testing | 37 - 53 fl | EXTERNAL | | | | performed at [facility], [address] | | LAB | | | | [address], | | | | | | [place] [address] | | | | + + + + + + | Platelet | 186Comment: Testing | 150 - 400 K/uL | EXTERNAL | | | Count | performed at [facility], [address] | | LAB | | | Plasma | [address], | | | | | | [place] [address] | | | | + + + + + + | MPV | 10.1Comment: Testing | fl | EXTERNAL | | | | performed at [facility], [address] | | LAB | | | | [address], | | | | | | [place] [address] | | | | + + + + + + | Differentia | AUTOMATEDComment: | | EXTERNAL | | | l Type | Testing performed at | | LAB | | | | [facility], [address], [place], [place] | | | | | | [address] | | | | + + + + + + | % Segmented | 66.0Comment: Testing | % | EXTERNAL | | | | performed at [facility], [address] | | LAB | | | Neutrophils | [address], | | | | | | [place] [address] | | | | + + + + + + | % | 20.0Comment: Testing | % | EXTERNAL | | | Lymphocytes | performed at [facility], [address] | | LAB | | | | [address], | | | | | | [place] [address] | | | | + + + + + + | % Monocytes | 7.3Comment: Testing | % | EXTERNAL | | | | performed at [facility], [address] | | LAB | | | | [address], | | | | | | [place] [address] | | | | + + + + + + | % | 6.3Comment: Testing | % | EXTERNAL | | | Eosinophils | performed at [facility], [address] | | LAB | | | | [address], | | | | | | [place] [address] | | | | + + + + + + | % Basophils | 0.4Comment: Testing | % | EXTERNAL | | | | performed at [facility], [address] | | LAB | | | | [address], | | | | | | [place] [address] | | | | + + + + + + | Absolute | 5.5Comment: Testing | 1.9 - 7.4 K/uL | EXTERNAL | | | Segmented | performed at [facility], [address] | | LAB | | | Neutrophils | [address], | | | | | | [place] [address] | | | | + + + + + + | Absolute | 1.7Comment: Testing | 1.0 - 3.9 K/uL | EXTERNAL | | | Lymphocytes | performed at [facility], [address] | | LAB | | | | [address], | | | | | | [place] [address] | | | | + + + + + + | Absolute | 0.6Comment: Testing | 0 - 0.8 K/uL | EXTERNAL | | | Monocytes | performed at [facility], [address] | | LAB | | | | [address], | | | | | | [place] [address] | | | | + + + + + + | Absolute | 0.5Comment: Testing | 0 - 0.5 K/uL | EXTERNAL | | | Eosinophils | performed at [facility], [address] | | LAB | | | | [address], | | | | | | [place] [address] | | | | + + + + + + | Absolute | 0.0Comment: Testing | 0 - 0.1 K/uL | EXTERNAL | | | Basophils | performed at [facility], [address] | | LAB | | | | [address], | | | | | | [place] [address] | | | | + + + [...] EXTERNAL | | | | performed at [facility], [address] | | LAB | | | | [address], | | | | | | [place] [address] | | | | + + + [...] | LAB | | | | [address], | | | | | | [place] [address] | | | | + + + + + + | K | 3.9Comment: Testing | 3.5 - 4.9 | EXTERNAL | | | | performed at [facility], [address] | mmol/L | LAB | | | | [address], | | | | | | [place] [address] | | | | + + + + + + | Cl | 103Comment: Testing | 99 - 109 mmol/L | EXTERNAL | | | | performed at [facility], [address] | | LAB | | | | [address], | | | | | | [place] [address] | | | | + + + + + + | CO2 | 28Comment: Testing | 23 - 32 mmol/L | EXTERNAL | | | | performed at [facility], [address] | | LAB | | | | [address], | | | | | | [place] [address] | | | | + + + + + + | Anion Gap | 11Comment: Testing | 5 - 20 mmol/L | EXTERNAL | | | | performed at [facility], [address] | | LAB | | | | [address], | | | | | | [place] [address] | | | | + + + + + + | Glucose, | 114 (H)Comment: Testing | 65 - 99 mg/dL | EXTERNAL | | | Fasting | performed at [facility], [address] | | LAB | | | | [address], | | | | | | [place] [address] | | | | + + + + + + | BUN | 14Comment: Testing | 8 - 25 mg/dL | EXTERNAL | | | | performed at [facility], [address] | | LAB | | | | [address], | | | | | | [place] [address] | | | | + + + + + + | Creatinine | 0.89Comment: Testing | 0.70 - 1.30 | EXTERNAL | | | | performed at [facility], [address] | mg/dL | LAB | | | | [address], | | | | | | [place] [address] | | | | + + + + + + | BUN/Creatin | 16Comment: Testing | | EXTERNAL | | | ine Ratio | performed at [facility], [address] | | LAB | | | | [address], | | | | | | [place] [address] | | | | + + + + + + | Calcium | 8.6Comment: Testing | 8.5 - 10.2 | EXTERNAL | | | | performed at [facility], [address] | mg/dL | LAB | | | | [address], | | | | | | [place] [address] | | | | + + + + + + | Protein, | 5.7 (L)Comment: Testing | 6.3 - 8.2 g/dL | EXTERNAL | | | Total | performed at [facility], [address] | | LAB | | | | [address], | | | | | | [place] [address] | | | | + + + + + + | Albumin | 3.7Comment: Testing | 3.3 - 4.8 g/dL | EXTERNAL | | | | performed at [facility], [address] | | LAB | | | | [address], | | | | | | [place] [address] | | | | + + + + + + | Globulin | 2.0Comment: Testing | 1.3 - 4.9 g/dL | EXTERNAL | | | | performed at [facility], [address] | | LAB | | | | [address], | | | | | | [place] [address] | | | | + + + + + + | A/G Ratio | 1.9Comment: Testing | 1.0 - 2.4 | EXTERNAL | | | | performed at [facility], [address] | | LAB | | | | [address], | | | | | | [place] [address] | | | | + + + + + + | Bilirubin | 0.8Comment: Testing | 0.1 - 1.5 mg/dL | EXTERNAL | | | Total | performed at [facility], [address] | | LAB | | | | [address], | | | | | | [place] [address] | | | | + + + + + + | ALP, | 36Comment: Testing | 35 - 115 U/L | EXTERNAL | | | External | performed at [facility], [address] | | LAB | | | | [address], | | | | | | [place] [address] | | | | + + + + + + | AST | 12Comment: Testing | 10 - 45 U/L | EXTERNAL | | | | performed at [facility], [address] | | LAB | | | | [address], | | | | | | [place] [address] | | | | + + + + + + | ALT | 12Comment: Testing | 10 - 65 U/L | EXTERNAL | | | | performed at [facility], [address] | | LAB | | | | [address], | | | | | | [place] [address] | | | | + + + [...] | | | | | | at [facility], [address] | | | | | | [address], | | | | | | [place] [address] | | | | + + + [...] | LAB | | | | [address], | | | | | | [place] [address] | | | | + + + + + + | Red Blood | 3.42 (L)Comment: Testing | 4.20 - 5.70 | EXTERNAL | | | Cells | performed at [facility], [address] | M/uL | LAB | | | Counted | [address], | | | | | | [place] [address] | | | | + + + + + + | Hemoglobin | 10.6 (L)Comment: Testing | 13.2 - 17.0 | EXTERNAL | | | | performed at [facility], [address] | g/dL | LAB | | | | [address], | | | | | | [place] [address] | | | | + + + + + + | Hematocrit, | 31.8 (L)Comment: Testing | 39.0 - 50.0 % | EXTERNAL | | | POC | performed at [facility], [address] | | LAB | | | | [address], | | | | | | [place] [address] | | | | + + + + + + | MCV | 93.0Comment: Testing | 80.0 - 100.0 fl | EXTERNAL | | | | performed at [facility], [address] | | LAB | | | | [address], | | | | | | [place] [address] | | | | + + + + + + | MCH | 31.0Comment: Testing | 27.0 - 34.0 pg | EXTERNAL | | | | performed at [facility], [address] | | LAB | | | | [address], | | | | | | [place] [address] | | | | + + + + + + | MCHC | 33.3Comment: Testing | 32.0 - 35.5 | EXTERNAL | | | | performed at [facility], [address] | g/dL | LAB | | | | [address], | | | | | | [place] [address] | | | | + + + + + + | RDW-CV | 44.2Comment: Testing | 37 - 53 fl | EXTERNAL | | | | performed at [facility], [address] | | LAB | | | | [address], | | | | | | [place] [address] | | | | + + + + + + | Platelet | 171Comment: Testing | 150 - 400 K/uL | EXTERNAL | | | Count | performed at [facility], [address] | | LAB | | | Plasma | [address], | | | | | | [place] [address] | | | | + + + + + + | MPV | 9.9Comment: Testing | fl | EXTERNAL | | | | performed at [facility], [address] | | LAB | | | | [address], | | | | | | [place] [address] | | | | + + + + + + | Differentia | AUTOMATEDComment: | | EXTERNAL | | | l Type | Testing performed at | | LAB | | | | [facility], [address] | | | | | | [place] | | | | | | [address] | | | | + + + + + + | % Segmented | 69.8Comment: Testing | % | EXTERNAL | | | | performed at [facility], [address] | | LAB | | | Neutrophils | [address], | | | | | | [place] [address] | | | | + + + + + + | % | 19.3Comment: Testing | % | EXTERNAL | | | Lymphocytes | performed at [facility], [address] | | LAB | | | | [address], | | | | | | [place] [address] | | | | + + + + + + | % Monocytes | 6.3Comment: Testing | % | EXTERNAL | | | | performed at [facility], [address] | | LAB | | | | [address], | | | | | | [place] [address] | | | | + + + + + + | % | 4.1Comment: Testing | % | EXTERNAL | | | Eosinophils | performed at [facility], [address] | | LAB | | | | [address], | | | | | | [place] [address] | | | | + + + + + + | % Basophils | 0.5Comment: Testing | % | EXTERNAL | | | | performed at [facility], [address] | | LAB | | | | [address], | | | | | | [place] [address] | | | | + + + + + + | Absolute | 5.2Comment: Testing | 1.9 - 7.4 K/uL | EXTERNAL | | | Segmented | performed at [facility], [address] | | LAB | | | Neutrophils | [address], | | | | | | [place] [address] | | | | + + + + + + | Absolute | 1.4Comment: Testing | 1.0 - 3.9 K/uL | EXTERNAL | | | Lymphocytes | performed at [facility], [address] | | LAB | | | | [address], | | | | | | [place] [address] | | | | + + + + + + | Absolute | 0.5Comment: Testing | 0 - 0.8 K/uL | EXTERNAL | | | Monocytes | performed at [facility], [address] | | LAB | | | | [address], | | | | | | [place] [address] | | | | + + + + + + | Absolute | 0.3Comment: Testing | 0 - 0.5 K/uL | EXTERNAL | | | Eosinophils | performed at [facility], [address] | | LAB | | | | [address], | | | | | | [place] [address] | | | | + + + + + + | Absolute | 0.0Comment: Testing | 0 - 0.1 K/uL | EXTERNAL | | | Basophils | performed at [facility], [address] | | LAB | | | | [address], | | | | | | [place] [address] | | | | + + + [...] | LAB | | | | [address], | | | | | | [place] [address] | | | | + + + + + + | K | 4.6Comment: Testing | 3.5 - 4.9 | EXTERNAL | | | | performed at [facility], [address] | mmol/L | LAB | | | | [address], | | | | | | [place] [address] | | | | + + + + + + | Cl | 107Comment: Testing | 99 - 109 mmol/L | EXTERNAL | | | | performed at [facility], [address] | | LAB | | | | [address], | | | | | | [place] [address] | | | | + + + + + + | CO2 | 30Comment: Testing | 23 - 32 mmol/L | EXTERNAL | | | | performed at [facility], [address] | | LAB | | | | [address], | | | | | | [place] [address] | | | | + + + + + + | Anion Gap | 9Comment: Testing | 5 - 20 mmol/L | EXTERNAL | | | | performed at [facility], [address] | | LAB | | | | [address], | | | | | | [place] [address] | | | | + + + + + + | Glucose, | 104 (H)Comment: Testing | 65 - 99 mg/dL | EXTERNAL | | | Fasting | performed at [facility], [address] | | LAB | | | | [address], | | | | | | [place] [address] | | | | + + + + + + | BUN | 22Comment: Testing | 8 - 25 mg/dL | EXTERNAL | | | | performed at [facility], [address] | | LAB | | | | [address], | | | | | | [place] [address] | | | | + + + + + + | Creatinine | 0.95Comment: Testing | 0.70 - 1.30 | EXTERNAL | | | | performed at [facility], [address] | mg/dL | LAB | | | | [address], | | | | | | [place] [address] | | | | + + + + + + | BUN/Creatin | 23Comment: Testing | | EXTERNAL | | | ine Ratio | performed at [facility], [address] | | LAB | | | | [address], | | | | | | [place] [address] | | | | + + + + + + | Calcium | 8.3 (L)Comment: Testing | 8.5 - 10.2 | EXTERNAL | | | | performed at [facility], [address] | mg/dL | LAB | | | | [address], | | | | | | [place] [address] | | | | + + + + + + | Protein, | 5.4 (L)Comment: Testing | 6.3 - 8.2 g/dL | EXTERNAL | | | Total | performed at [facility], [address] | | LAB | | | | [address], | | | | | | [place] [address] | | | | + + + + + + | Albumin | 3.5Comment: Testing | 3.3 - 4.8 g/dL | EXTERNAL | | | | performed at [facility], [address] | | LAB | | | | [address], | | | | | | [place] [address] | | | | + + + + + + | Globulin | 1.9Comment: Testing | 1.3 - 4.9 g/dL | EXTERNAL | | | | performed at [facility], [address] | | LAB | | | | [address], | | | | | | [place] [address] | | | | + + + + + + | A/G Ratio | 1.8Comment: Testing | 1.0 - 2.4 | EXTERNAL | | | | performed at [facility], [address] | | LAB | | | | [address], | | | | | | [place] [address] | | | | + + + + + + | Bilirubin | 0.7Comment: Testing | 0.1 - 1.5 mg/dL | EXTERNAL | | | Total | performed at [facility], [address] | | LAB | | | | [address], | | | | | | [place] [address] | | | | + + + + + + | ALP, | 32 (L)Comment: Testing | 35 - 115 U/L | EXTERNAL | | | External | performed at [facility], [address] | | LAB | | | | [address], | | | | | | [place] [address] | | | | + + + + + + | AST | 15Comment: Testing | 10 - 45 U/L | EXTERNAL | | | | performed at [facility], [address] | | LAB | | | | [address], | | | | | | [place] [address] | | | | + + + + + + | ALT | 12Comment: Testing | 10 - 65 U/L | EXTERNAL | | | | performed at [facility], [address] | | LAB | | | | [address], | | | | | | [place] [address] | | | | + + + [...] W | | | | | | [address], | | | | | | [place] [address] | | | | + + + [...] EXTERNAL | | | | performed at [facility];888 | g/dL | LAB | | | | [address];[place] | | | | | | [address] | | | | + + + + + + | Hematocrit, | 34.1 (L)Comment: Testing | 39.0 - 50.0 % | EXTERNAL | | | POC | performed at [facility];[address] | | LAB | | | | [address];[place], [place] | | | | | | [address] | | | | + + + [...] EXTERNAL | | | | performed at [facility];888 | g/dL | LAB | | | | [address];[place] | | | | | | [address] | | | | + + + + + + | Hematocrit, | 34.7 (L)Comment: Testing | 39.0 - 50.0 % | EXTERNAL | | | POC | performed at [facility];[address] | | LAB | | | | [address];[place] | | | | | | [address] | | | | + + + [...] EXTERNAL | | | | performed at [facility], [address] | | LAB | | | | [address], | | | | | | [place] [address] | | | | + + + + + + | Red Blood | 3.42 (L)Comment: Testing | 4.20 - 5.70 | EXTERNAL | | | Cells | performed at [facility], [address] | M/uL | LAB | | | Counted | [address], | | | | | | [place] [address] | | | | + + + + + + | Hemoglobin | 10.5 (L)Comment: Testing | 13.2 - 17.0 | EXTERNAL | | | | performed at [facility], [address] | g/dL | LAB | | | | [address], | | | | | | [place] [address] | | | | + + + + + + | Hematocrit, | 31.9 (L)Comment: Testing | 39.0 - 50.0 % | EXTERNAL | | | POC | performed at [facility], [address] | | LAB | | | | [address], | | | | | | [place] [address] | | | | + + + + + + | MCV | 93.5Comment: Testing | 80.0 - 100.0 fl | EXTERNAL | | | | performed at [facility], [address] | | LAB | | | | [address], | | | | | | [place] [address] | | | | + + + + + + | MCH | 30.7Comment: Testing | 27.0 - 34.0 pg | EXTERNAL | | | | performed at [facility], [address] | | LAB | | | | [address], | | | | | | [place] [address] | | | | + + + + + + | MCHC | 32.9Comment: Testing | 32.0 - 35.5 | EXTERNAL | | | | performed at [facility], [address] | g/dL | LAB | | | | [address], | | | | | | [place] [address] | | | | + + + + + + | RDW-CV | 43.8Comment: Testing | 37 - 53 fl | EXTERNAL | | | | performed at [facility], [address] | | LAB | | | | [address], | | | | | | [place] [address] | | | | + + + + + + | Platelet | 164Comment: Testing | 150 - 400 K/uL | EXTERNAL | | | Count | performed at [facility], [address] | | LAB | | | Plasma | [address], | | | | | | [place] [address] | | | | + + + + + + | MPV | 10.4Comment: Testing | fl | EXTERNAL | | | | performed at [facility], [address] | | LAB | | | | [address], | | | | | | [place] [address] | | | | + + + + + + | Differentia | AUTOMATEDComment: | | EXTERNAL | | | l Type | Testing performed at | | LAB | | | | [facility], [address] | | | | | | [place] | | | | | | [address] | | | | + + + + + + | % Segmented | 65.6Comment: Testing | % | EXTERNAL | | | | performed at [facility], [address] | | LAB | | | Neutrophils | [address], | | | | | | [place] [address] | | | | + + + + + + | % | 23.8Comment: Testing | % | EXTERNAL | | | Lymphocytes | performed at [facility], [address] | | LAB | | | | [address], | | | | | | [place] [address] | | | | + + + + + + | % Monocytes | 9.2Comment: Testing | % | EXTERNAL | | | | performed at [facility], [address] | | LAB | | | | [address], | | | | | | [place] [address] | | | | + + + + + + | % | 1.0Comment: Testing | % | EXTERNAL | | | Eosinophils | performed at [facility], [address] | | LAB | | | | [address], | | | | | | [place] [address] | | | | + + + + + + | % Basophils | 0.4Comment: Testing | % | EXTERNAL | | | | performed at [facility], [address] | | LAB | | | | [address], | | | | | | [place] [address] | | | | + + + + + + | Absolute | 4.6Comment: Testing | 1.9 - 7.4 K/uL | EXTERNAL | | | Segmented | performed at [facility], [address] | | LAB | | | Neutrophils | [address], | | | | | | [place] [address] | | | | + + + + + + | Absolute | 1.7Comment: Testing | 1.0 - 3.9 K/uL | EXTERNAL | | | Lymphocytes | performed at [facility], [address] | | LAB | | | | [address], | | | | | | [place] [address] | | | | + + + + + + | Absolute | 0.6Comment: Testing | 0 - 0.8 K/uL | EXTERNAL | | | Monocytes | performed at [facility], [address] | | LAB | | | | [address], | | | | | | [place] [address] | | | | + + + + + + | Absolute | 0.1Comment: Testing | 0 - 0.5 K/uL | EXTERNAL | | | Eosinophils | performed at [facility], [address] | | LAB | | | | [address], | | | | | | [place] [address] | | | | + + + + + + | Absolute | 0.0Comment: Testing | 0 - 0.1 K/uL | EXTERNAL | | | Basophils | performed at [facility], [address] | | LAB | | | | [address], | | | | | | [place] [address] | | | | + + + [...] EXTERNAL | | | | performed at [facility], [address] | uIU/mL | LAB | | | | [address], | | | | | | [place] [address] | | | | + + + [...] EXTERNAL | | | | performed at [facility], [address] | | LAB | | | | [address], | | | | | | [place] [address] | | | | + + + [...] EXTERNAL | | | | performed at [facility], [address] | | LAB | | | | [address], | | | | | | [place] [address] | | | | + + + [...] + + | Hemoglobin | 5.8Comment: The [place] | 4.0 - 6.0 % | EXTERNAL [...] | | | | | performed at [facility], [address] | | | | | | [address], | | | | | | [place] [address] | | | | + + + [...] | | | | | performed at [facility], [address] | | | | | | [address], | | | | | | [place] [address] | | | | + + + [...] | LAB | | | | [address], | | | | | | [place] [address] | | | | + + + + + + | K | 4.1Comment: Testing | 3.5 - 4.9 | EXTERNAL | | | | performed at [facility], [address] | mmol/L | LAB | | | | [address], | | | | | | [place] [address] | | | | + + + + + + | Cl | 109Comment: Testing | 99 - 109 mmol/L | EXTERNAL | | | | performed at [facility], [address] | | LAB | | | | [address], | | | | | | [place] [address] | | | | + + + + + + | CO2 | 26Comment: Testing | 23 - 32 mmol/L | EXTERNAL | | | | performed at [facility], [address] | | LAB | | | | [address], | | | | | | [place] [address] | | | | + + + + + + | Anion Gap | 8Comment: Testing | 5 - 20 mmol/L | EXTERNAL | | | | performed at [facility], [address] | | LAB | | | | [address], | | | | | | [place] [address] | | | | + + + + + + | Glucose, | 90Comment: Testing | 65 - 99 mg/dL | EXTERNAL | | | Fasting | performed at [facility], [address] | | LAB | | | | [address], | | | | | | [place] [address] | | | | + + + + + + | BUN | 48 (H)Comment: Testing | 8 - 25 mg/dL | EXTERNAL | | | | performed at [facility], [address] | | LAB | | | | [address], | | | | | | [place] [address] | | | | + + + + + + | Creatinine | 0.92Comment: Testing | 0.70 - 1.30 | EXTERNAL | | | | performed at [facility], [address] | mg/dL | LAB | | | | [address], | | | | | | [place] [address] | | | | + + + + + + | BUN/Creatin | 52Comment: Testing | | EXTERNAL | | | ine Ratio | performed at [facility], [address] | | LAB | | | | [address], | | | | | | [place] [address] | | | | + + + + + + | Calcium | 7.8 (L)Comment: Testing | 8.5 - 10.2 | EXTERNAL | | | | performed at [facility], [address] | mg/dL | LAB | | | | [address], | | | | | | [place] [address] | | | | + + + + + + | Protein, | 5.1 (L)Comment: Testing | 6.3 - 8.2 g/dL | EXTERNAL | | | Total | performed at [facility], [address] | | LAB | | | | [address], | | | | | | [place] [address] | | | | + + + + + + | Albumin | 3.3Comment: Testing | 3.3 - 4.8 g/dL | EXTERNAL | | | | performed at [facility], [address] | | LAB | | | | [address], | | | | | | [place] [address] | | | | + + + + + + | Globulin | 1.8Comment: Testing | 1.3 - 4.9 g/dL | EXTERNAL | | | | performed at [facility], [address] | | LAB | | | | [address], | | | | | | [place] [address] | | | | + + + + + + | A/G Ratio | 1.8Comment: Testing | 1.0 - 2.4 | EXTERNAL | | | | performed at [facility], [address] | | LAB | | | | [address], | | | | | | [place] [address] | | | | + + + + + + | Bilirubin | 0.6Comment: Testing | 0.1 - 1.5 mg/dL | EXTERNAL | | | Total | performed at [facility], [address] | | LAB | | | | [address], | | | | | | [place] [address] | | | | + + + + + + | ALP, | 27 (L)Comment: Testing | 35 - 115 U/L | EXTERNAL | | | External | performed at [facility], [address] | | LAB | | | | [address], | | | | | | [place] [address] | | | | + + + + + + | AST | 11Comment: Testing | 10 - 45 U/L | EXTERNAL | | | | performed at [facility], [address] | | LAB | | | | [address], | | | | | | [place] [address] | | | | + + + + + + | ALT | 12Comment: Testing | 10 - 65 U/L | EXTERNAL | | | | performed at [facility], [address] | | LAB | | | | [address], | | | | | | [place] [address] | | | | + + + [...] | | | | | | [address], | | | | | | [place] [address] | | | | + + + [...] EXTERNAL | | | | performed at [facility];888 | g/dL | LAB | | | | [address];[place] | | | | | | [address] | | | | + + + + + + | Hematocrit, | 31.2 (L)Comment: Testing | 39.0 - 50.0 % | EXTERNAL | | | POC | performed at [facility];[address] | | LAB | | | | [address];[place] | | | | | | [address] | | | | + + + [...] LAB | | | | Bl[address];[place] [address] | | | | + + + + + + | Antibody | NEGATIVE | | EXTERNAL | | | Screen | | | LAB | | + + + + + + | Antibody | Testing performed at | | EXTERNAL | | | Screen | [facility] | | LAB | | | | [address];[place] [address] | | | | + + + + + + | BB BAND | [id number] | | EXTERNAL | | | | | | LAB | | + + + + + + | BB BAND | Testing performed at | | EXTERNAL | | | | [facility] | | LAB | | | | [address];[place] [address] | | | | + + + [...] | | | Patient | performed at [facility];[address] | | LAB | | | | [address];[place] | | | | | | [address] | | | | + + + [...] | | | | | performed at [facility] | | | | | | [address] [facility];[place], [place] | | | | | | [address] | | | | + + + [...] EXTERNAL | | | | performed at [facility];[address] | | LAB | | | | [address];[place] | | | | | | [address] | | | | + + + + + + | Red Blood | 3.85 (L)Comment: Testing | 4.20 - 5.70 | EXTERNAL | | | Cells | performed at [facility];888 | M/uL | LAB | | | Counted | [address];[place] | | | | | | [address] | | | | + + + + + + | Hemoglobin | 11.8 (L)Comment: Testing | 13.2 - 17.0 | EXTERNAL | | | | performed at [facility];888 | g/dL | LAB | | | | [address];[place] | | | | | | [address] | | | | + + + + + + | Hematocrit, | 35.6 (L)Comment: Testing | 39.0 - 50.0 % | EXTERNAL | | | POC | performed at [facility];[address] | | LAB | | | | [address];[place] | | | | | | [address] | | | | + + + + + + | MCV | 92.5Comment: Testing | 80.0 - 100.0 fl | EXTERNAL | | | | performed at [facility];[address] | | LAB | | | | [address];[place] | | | | | | [address] | | | | + + + + + + | MCH | 30.5Comment: Testing | 27.0 - 34.0 pg | EXTERNAL | | | | performed at [facility];[address] | | LAB | | | | [address];[place] | | | | | | [address] | | | | + + + + + + | MCHC | 33.0Comment: Testing | 32.0 - 35.5 | EXTERNAL | | | | performed at [facility];888 | g/dL | LAB | | | | [address];[place] | | | | | | [address] | | | | + + + + + + | RDW-CV | 44.2Comment: Testing | 37 - 53 fl | EXTERNAL | | | | performed at [facility];[address] | | LAB | | | | [address];[place] | | | | | | [address] | | | | + + + + + + | Platelet | 189Comment: Testing | 150 - 400 K/uL | EXTERNAL | | | Count | performed at [facility];[address] | | LAB | | | Plasma | [address];[place] | | | | | | [address] | | | | + + + + + + | MPV | 9.9Comment: Testing | fl | EXTERNAL | | | | performed at [facility];[address] | | LAB | | | | [address];[place] | | | | | | [address] | | | | + + + + + + | Differentia | MANUALComment: Testing | | EXTERNAL | | | l Type | performed at [facility];[address] | | LAB | | | | [address];[place] | | | | | | [address] | | | | + + + + + + | Segmented | 80Comment: Testing | % | EXTERNAL | | | Neutrophils | performed at [facility];[address] | | LAB | | | Manual | [address];[place] | | | | | | [address] | | | | + + + + + + | % Bands | 6Comment: Testing | % | EXTERNAL | | | | performed at [facility];[address] | | LAB | | | | [address];[place] | | | | | | [address] | | | | + + + + + + | Lymphocytes | 9Comment: Testing | % | EXTERNAL | | | Manual | performed at [facility];[address] | | LAB | | | | [address];[place] | | | | | | [address] | | | | + + + + + + | Monocytes | 5Comment: Testing | % | EXTERNAL | | | Manual | performed at [facility];[address] | | LAB | | | | [address];[place] | | | | | | [address] | | | | + + + + + + | Absolute | 8.8 (H)Comment: Testing | 1.9 - 7.4 K/uL | EXTERNAL | | | Neutrophils | performed at [facility];888 | | LAB | | | | [address];[place] | | | | | | [address] | | | | + + + + + + | Bands | 0.7 (H)Comment: Testing | 0 - 0.2 K/uL | EXTERNAL | | | Manual | performed at [facility];[address] | | LAB | | | | [address];[place] | | | | | | [address] | | | | + + + + + + | Absolute | 1.0Comment: Testing | 1.0 - 3.9 K/uL | EXTERNAL | | | Lymphocytes | performed at [facility];[address] | | LAB | | | | [address];[place] | | | | | | [address] | | | | + + + + + + | Absolute | 0.6Comment: Testing | 0 - 0.8 K/uL | EXTERNAL | | | Monocytes | performed at [facility];[address] | | LAB | | | | [address];[place] | | | | | | [address] | | | | + + + + + + | Platelet | ADEQUATEComment: Testing | | EXTERNAL | | | Estimate | performed at [facility];[address] | | LAB | | | | [address];[place] | | | | | | [address] | | | | + + + + + + | RBC | RBC AND PLT MORPHOLOGY | | EXTERNAL | | | Morphology | APPEAR NORMALComment: | | LAB | | | | Testing performed at | | | | | | [facility];[address];[place] [phone] | | | | + + + [...] EXTERNAL | | | | performed at [facility];[address] | | LAB | | | | [address];[place] | | | | | | [phone] | | | | + + + [...] EXTERNAL | | | | performed at [facility];[address] | mmol/L | LAB | | | | [address];[place] | | | | | | [address] | | | | + + + + + + | K | 4.8Comment: Testing | 3.5 - 4.9 | EXTERNAL | | | | performed at [facility];[address] | mmol/L | LAB | | | | [address];[place] | | | | | | [address] | | | | + + + + + + | Cl | 107Comment: Testing | 99 - 109 mmol/L | EXTERNAL | | | | performed at [facility];[address] | | LAB | | | | [address];[place] | | | | | | [address] | | | | + + + + + + | CO2 | 27Comment: Testing | 23 - 32 mmol/L | EXTERNAL | | | | performed at [facility];[address] | | LAB | | | | [address];[place] | | | | | | [address] | | | | + + + + + + | Anion Gap | 11Comment: Testing | 5 - 20 mmol/L | EXTERNAL | | | | performed at [facility];[address] | | LAB | | | | [address];[place] | | | | | | [address] | | | | + + + + + + | Glucose, | 146 (H)Comment: Testing | 65 - 99 mg/dL | EXTERNAL | | | Fasting | performed at [facility];[address] | | LAB | | | | [address];[place] | | | | | | [address] | | | | + + + + + + | BUN | 46 (H)Comment: Testing | 8 - 25 mg/dL | EXTERNAL | | | | performed at [facility];[address] | | LAB | | | | [address];[place] | | | | | | [address] | | | | + + + + + + | Creatinine | 0.91Comment: Testing | 0.70 - 1.30 | EXTERNAL | | | | performed at [facility];[address] | mg/dL | LAB | | | | [address];[place] | | | | | | [address] | | | | + + + + + + | BUN/Creatin | 50Comment: Testing | | EXTERNAL | | | ine Ratio | performed at [facility];[address] | | LAB | | | | [address];[place] | | | | | | [address] | | | | + + + + + + | Calcium | 7.4 (L)Comment: Testing | 8.5 - 10.2 | EXTERNAL | | | | performed at [facility];888 | mg/dL | LAB | | | | [address];[place] | | | | | | [address] | | | | + + + + + + | Protein, | 5.8 (L)Comment: Testing | 6.3 - 8.2 g/dL | EXTERNAL | | | Total | performed at [facility];[address] | | LAB | | | | [address];[place] | | | | | | [address] | | | | + + + + + + | Albumin | 3.2 (L)Comment: Testing | 3.3 - 4.8 g/dL | EXTERNAL | | | | performed at [facility];[address] | | LAB | | | | [address];[place] | | | | | | [address] | | | | + + + + + + | Globulin | 2.6Comment: Testing | 1.3 - 4.9 g/dL | EXTERNAL | | | | performed at [facility];[address] | | LAB | | | | [address];[place] | | | | | | [address] | | | | + + + + + + | A/G Ratio | 1.2Comment: Testing | 1.0 - 2.4 | EXTERNAL | | | | performed at [facility];[address] | | LAB | | | | [address];[place] | | | | | | [address] | | | | + + + + + + | Bilirubin | 0.5Comment: Testing | 0.1 - 1.5 mg/dL | EXTERNAL | | | Total | performed at [facility];[address] | | LAB | | | | [address];[place] | | | | | | [address] | | | | + + + + + + | ALP, | 47Comment: Testing | 35 - 115 U/L | EXTERNAL | | | External | performed at [facility];[address] | | LAB | | | | [address];[place] | | | | | | [address] | | | | + + + + + + | AST | 11Comment: Testing | 10 - 45 U/L | EXTERNAL | | | | performed at [facility];[address] | | LAB | | | | [address];[place] | | | | | | [address] | | | | + + + + + + | ALT | 19Comment: Testing | 10 - 65 U/L | EXTERNAL | | | | performed at [facility];888 | | LAB | | | | [facility] [address];[place] | | | | | | [address] | | | | + + + [...] | | | | | | at [facility];[address] [facility] | | | | | | [place] [address] | | | | + + + [...]
--- OUTSIDE RECORDS SUMMARY | ~2019-11-19 | XMS | Encounter Summary ---
Demographics + + + | Address | [address] | | | [place] [address] | + + + | Home Phone [...] Team Providers + +------+ + | Care Light Technician Name | Role | Phone | + +------+ + PCP | Unavailable | + +------+ + Encounter Details +--------+ + + + + | Date | Type | Department | Care Team | Description | +--------+ + + + + | 03/05/ | Hospital | [facility] | Wing Jennifer Hunter MD | REHABILITATION PROC | | 2002 - | Encounter | [facility] | [address] | NEC | | | | INPATIENT | [place], [place] | | | 03/09/ | | REHABILITATION 888 | [address] | | | 2002 | | MONIKA MIRZA | [phone] | | | | | [place], [place] | | | | | | [address] | | | | | | [phone] | | | +--------+ + + + [...]
--- OUTSIDE RECORDS SUMMARY | ~2019-11-19 | XMS | Clinical Summary ---
Demographics + + + | Address | [address] | | | [place] [address] | + + + | Home Phone [...] + + | Author | [facility] | + + + | Organization | [facility] | + + + | Address | Unknown | + + + | Phone | Unavailable | + + + Support + + +---------+ + | Name | Relationship | Address | Phone | + + +---------+ + | None Per Pt | ECON | Unknown | Unavailable | + + +---------+ + Care Team Providers + +------+ + | Care Rn Cardiac Name | Role | Phone | + +------+ + | Herlinda Maldonado | PCP | | + +------+ + Source Comments BETTINA is fully live on both [facility] Ambulatory and [facility] InPatient.[facility] Allergies + + + + [...] | | | | 88 | | [facility] INPATIENT REV LOC | | | | | | | + +------+--------+ +--------+--------+--------+ | Washer 13mm 6.6mm Lcp | | Left: | [employer] | | | 219.99 | | Orthopedic Stainless Steel | | Hip | | | | / / | | 4.5-7.3mm Screw Nonsterile - | | | | | | | | [id number]: Qty: 2 on | | | | | | | | 06/03/2018 by Working, | | | | | | | | Nguyễn Chance MD at [facility] | | | | | | | | INPATIENT REV LOC | | | | | | | + +------+--------+ +--------+--------+--------+ | Screw Bone 6.5mm 160mm | | Left: | [employer] | | | 208.48 | | Stainless Steel Full Thread | | Hip | | | | 5 / / | | Orthopedic Cannulated | | | | | | | | Nonsterile - | | | | | | | | [id number]: Qty: 1 on | | | | | | | | 06/03/2018 by Working, | | | | | | | | Nguyễn Chance MD at [facility] | | | | | | | [...] /[id number] | | Nguyễn Chance MD at [facility] | | | | | | 02 [...] RE HMO | | sent | | [place], | | | | | | | | [place] [address] | | + +--------+ +--------+ + +--------+ + +--------+ +--------+ + + | Guarantor Name | Accoun | Relation to | Date | Phone | Billing Address | | | t Type | Patient | of | | | | | | | | | | + +--------+ +--------+ + + | William Burns | Person | Self | [birth year] | | [address] | | | al/Fam | | 1935 | [phone] | [place] [address] | | | michelle | | | [...]
--- OUTSIDE RECORDS SUMMARY | ~2019-11-19 | XMS | Encounter Summary ---
Demographics + + + | Address | [address] | | | [place] [address] | + + + | Home Phone [...] Team Providers + +------+ + | Care Legal Mediator Name | Role | Phone | + [...] | Transcriptions | + + | Interface, Magazine Writer In - 11/26/2005 3:10 AM PDT | | [place] [address] | | [place], [place] [address] | | [facility] Rec No.: | | [id number] [...] waspatched.Fozia Crawford M.D., PhDJTS:X44D: 06/19/2002T: | | 06/20/[id number] | |lid speculum was placed. Slit light [...] | |JTS:X44 | | | | | |[id number] | + + documented in this encounter Visit Diagnoses Not on filedocumented in this encounter"
--- OUTSIDE RECORDS SUMMARY | ~2019-11-19 | XMS | Encounter Summary ---
Demographics + + + | Address | [address] | | | [place] [address] | + + + | Home Phone | | + + + | Preferred Language | Unknown | + + + | Marital Status | | + + + | Cheondoism Affiliation | NON | + + + | Race | White | + + + | Ethnic Group | Not or | + + + Author + + + | Author | [facility] | + + + | Organization | [facility] | + + + | Address | Unknown | + + + | Phone | Unavailable | + + + Support + + +---------+ + | Name | Relationship | Address | Phone | + + +---------+ + | None Per Pt | ECON | Unknown | Unavailable | + + +---------+ + Care Team Providers + +------+ + | Care Window Systems Administrator Name | Role | Phone | [...] + + | 05/31/ | Hospital | [facility] [address] | Ashwini Ruggiero MD | | | 2019 - | Encounter | [address] | [address] | | | | | [place], | [address] | | | 06/06/ | | [place] [address] | [place], [place] | | | 2018 | | [phone] | [address] | | | | | | [phone] | | | | | | | | | | | | Nguyễn Shepard, | | | | | | [address] | | | | | | [address] | | | | | | [place], [place] | | | | | | [address] | | | | | | [phone] | | | | | | | [...] might be differe nt from the original. [facility] DEPARTMENT OF ORTHOPAEDICS & REHABILITATION INPATIENT HOSPITAL DISCHARGE SUMMARY & INTERDISCIPLINARY INSTRUCTIONS Patient: William Burns CSN: [id number] Admission Date: 05/31/2018 Discharge Date: 06/06/2018 Attending Physician: Nguyễn Shepard MD PCP: SHAHEEN Love Service: [facility] Orthopaedics & Rehabilitation Diagnoses Principal [...] they suspect your wound is infected. Call [facility] Orthopedics first at . Activity NON Weight bearing on left leg. For approximately 4 weeks to be determined at postoperative clinic visit. Condition on Discharge Stable Follow-Up Appointments ORTHOPEDICS OUTPATIENT CLINIC: Future Appointments Provider Department Dept Phone Center 07/02/2018 1:40 PM Nguyễn Chance Working Orthopaedics at [facility] [phone] Orthopedics PCP: As needed for any medical [...] mg by mouth once daily at bedtime. [facility] Orthopaedic Service Pain Policy At [...] administration instructions. - Call Orthopedic Clinic at [phone] if any persistent, localized swelling that does [...] and ask for the orthopaedic surgery resident concrete pipe machine operator. Additional Post-Op Instructions / What to [...] feel that you will need more, call [phone] during business hours in order to get [...] a SNF "I certify that post-hospital inpatient usp facility care is medically necessar y on [...] it has been our pleasure. ELISE Mckeon [facility] Department of Orthopaedics & Rehabilitation [address] [place] [address] Mail Code: OP31 [facility] [address] documented in t his encounter Medications at [...] to have left pelvic fracture, transferred to [facility] Orthopedic Surgery service for surg ical management. [facility] initially consulted for pre-operative evaluation. [...] says he uses sparingly. On arrival to [facility] he was on 4 L [...] MD Attending Physician Clinical Hospitalist Services [facility] Pager [phone] Please call or page me with any questions or concerns. Doe Newman MD - 06/06/2018 9:11 AM PST Orthopaedic Surgery Progress Note Patient: /Age: MRN: CSN: Date: Admission Date: Hospital Day: Orthopaedic Attending: William Burns 1935 83 y.o. [id number] 06/06/2018 05/31/2018 6 Nguyễn Shepadr MD Diagnosis: [...] to make a follow up appointment in [facility] ximately 1 weeks with ORTHO TRAUMA [...] to have left pelvic fracture, transferred to [facility] Orthopedic Surgery service for surg ical management. [facility] initially consulted for pre-operative evaluation. [...] says he uses sparingly. On arrival to [facility] he was on 4 L [...] Attending Physician Clinical Hospitalist Services [facility] Pager [phone] Please call or page me with any questions or concerns. Doe Newman MD - 06/05/2018 7:10 AM PST Orthopaedic Surgery Progress Note Patient: /Age: MRN: CSN: Date: Admission Date: Hospital Day: Orthopaedic Attending: William Burns 1935 83 y.o. [id number] 06/05/2018 05/31/2018 5 Nguyễn Shepard MD Diagnosis: [...] to make a follow up appointment in [facility] ximately 1 weeks with ORTHO TRAUMA [...] 2 seconds Doe Gongora MD [facility] Department of Orthopaedics & Rehabilitation [address] [place] [address] Mail Code: OP31 [facility] [address] Kg Snider MD - 06/04/2018 10:03 AM [...] to have left pelvic fracture, transferred to [facility] Orthopedic Surgery service for surg ical management. [facility] initially consulted for pre-operative evaluation. [...] says he uses sparingly. On arrival to [facility] he was on 4 L [...] MD Attending Physician Clinical Hospitalist Services [facility] Pager [phone] Please call or page me with any questions or concerns. Devendra Scales MD - 06/04/2018 7:48 AM PST Orthopaedic Surgery Progress Note Patient: /Age: MRN: CSN: Date: Admission Date: Hospital Day: Orthopaedic Attending: William James Grant 1935 83 y.o. [id number] 06/04/2018 05/31/2018 4 Nguyễn Shepard MD Diagnosis: [...] to make a follow up appointment in [facility] ximately 1 weeks with ORTHO TRAUMA [...] < 2 seconds Doe Gongora MD [facility] Department of Orthopaedics & Rehabilitation [address] [place] [address] Mail Code: OP31 [facility] [address] evendra Da Silva MD - 06/03/2018 8:32 PM PST [place] [...] Surgery Resident 06/03/2018, 8:33 PM [facility] Department of Orthopaedics & Rehabilitation [address] [facility] Mail Code: OP31 [place] [address] Jade Messina MD - 06/02/2018 8:36 AM [...] Please call Orthopaedic Trauma and Fracture at [phone] to schedule a followup within 2 weeks from discharge. ALEXA VICKERS MD Pager: [phone] 06/02/2018 oe Gongora MD - 06/01/2018 8:27 AM PST Orthopaedic Surgery Progress Note Patient: /Age: MRN: CSN: Date: Admission Date: Hospital Day: Orthopaedic Attending: William Burns 1935 83 y.o. [id number] 06/01/2018 05/31/2018 1 Nguyễn Shepard MD Diagnosis: [...] [facility]O [facility] & [...] not performed Doe Gongora MD [facility] Department of Orthopaedics & Rehabilitation [address] [facility] Mail Code: OP31 Dileep CHAPPELL [id number] documented in this enco unter Plan of [...] | + + + + + | [facility] | [address] | [place] [address] | | | SERVICES, CORE | RICHARD [...] | | | LABORATORY | | | [place] | | | SERVICES, | | | [...] + + + + + | [facility] | [address] | [place] [address] | | | SERVICES, CORE | RICHARD [...] LABORATORY | [address] | [place] [address] | | | SERVICES, CORE | PARK [...] | | | LABORATORY | | | [place] | | | SERVICES, | | | [...] the MDRD equation recommended by the | [facility] | | National Kidney Disease [...] | + + + + + | [facility] LABORATORY | [address] | [place] [address] | | | SERVICES, YOKASTA | RICHARD [...] | + + + + + | [facility] | [address] | [place] [address] | | | SERVICES, CORE | RICHARD [...] | + + + + + | [facility] | [address] | [place] [address] | | | SERVICES, CORE | RICHARD [...] | + + + + + | [facility] | [address] | [place] [address] | | | SERVICES, CORE | RICHARD [...] | + + + + + | [facility] | [address] | [place] [address] | | | SERVICES, CORE | RICHARD [...] | + + + + + | [facility] | [address] | [place] [address] | | | SERVICES, CORE | RICHARD [...] | | | LABORATORY | | | [place] | | | SERVICES, | | | [...] | + + + + + | [facility] | [address] | [place] [address] | | | SERVICES, CORE | RICHARD [...] Note | + + | Service Account, RadiDNART LIMITADA Res In Interface - 06/04/2018 4:42 PM [...] | | + +---------+ + + | [facility] RADIOLOGY | | | | | VOICE RECOGNITION 2 | | | | + +---------+ + + OPERATION RECORD (06/03/2018 4:58 PM PST) + + | Procedure Note | + + | Nguyễn Shepard MD - 06/03/2018 4:58 PM [facility] Date of Service: 06/03/2018 | | Attending Surgeon: Nguyễn Shepard MD Newspaper Delivery Counselor(s): Devendra Allen | | MD Avinash. Preoperative [...] | | was transferred to the [facility]. A sacral bump consisting of 5 squared [...] problem was referred to my care at [facility] by another | | orthopaedic surgeon. The patient is from the [facility] and traveled many miles to | | get to [facility], bypassing several other hospitals due [...] 06/03/2018 14:26:09DT: | | 06/03/2018 16:58:33Job #: [id number] | + + MAGNESIUM, PLASMA (06/03/2018 4:37 [...] [facility] | [address] | [place] [address] | | | SERVICES, CORE | PARK [...] OF | [address] | [place], [place] | | | CARDIOLOGY | [address] | [address] | | + + + + + [...] [facility] | [address] | [place], [place] | | | DILAN TURNER OF CARE | [address] | [address] | | | TESTS | | | [...] [facility] | [address] | [place], [place] | | | DILAN TURNER OF CARE | [address] | [address] | | | TESTS | | | [...] | + + + + + | [facility] | [address] | [place] [address] | | | SERVICES, YOKASTA | RICHARD [...] | | | LABORATORY | | | [place] | | | SERVICES, | | | [...] | + + + + + | [facility] | [address] | [place] [address] | | | SERVICES, CORE | RICHARD [...] | + + + + + | [facility] DEPT OF | [address] | [place], [place] | | | CARDIOLOGY | [address] | [address] | | + + + + + [...] LABORATORY | [address] | [place] [address] | | | SERVICES, CORE | PARK [...] LABORATORY | [address] | [place] [address] | | | SERVICES, CORE | PARK [...] | | | LABORATORY | | | [place] | | | SERVICES, | | | [...] | + + + + + | [facility] [employer] | [address] | [place] [address] | | | SERVICES, CORE | RICHARD [...] LABORATORY | [address] | [place] [address] | | | SERVICES, | [address] [...] | + + + + + | [facility] | [address] | [place] [address] | | | SERVICES, | [address] [...] | + + + + + | [facility] LABORATORY | [address] | [place] [address] | | | SERVICES, CORE | [address] | | | + + + + + X-RAY KNEE 2 VIEWS LEFT (06/01/2018 11:48 AM PST) + + | Specimen | + + | | + + + + + | Narrative | Performed At | + + + | EXAM: KNEE 2 VIEWS LEFT HISTORY: eval traction pin placement | [facility] | | COMPARISON: None. FINDINGS/IMPRESSION: [...] MD 06/01/2018 6:02 PM | |Preliminary: Fortino Deins MD | |Dictation initiated: Fortino Denis MD [...] LABORATORY | [address] | [place] [address] | | | SERVICES, CORE | PARK [...] | | | LABORATORY | | | [place] | | | SERVICES, | | | [...] the MDRD equation recommended by the | [facility] | | National Kidney Disease [...] | + + + + + | [facility] | [address] | [place] [address] | | | SERVICES, CORE | RICHARD [...] Note | + + | Service Account, [employer] Res In Interface - 06/01/2018 9:25 AM [...] | + + + + + | [facility] | [address] | [place] [address] | | | SERVICES, CORE | RICHARD [...] | | | LABORATORY | | | [place] | | | SERVICES, | | | [...] | + + + + + | [facility] | [address] | [place] [address] | | | SERVICES, CORE | RICHARD [...]
--- OUTSIDE RECORDS SUMMARY | ~2019-11-19 | XMS | Encounter Summary ---
Demographics + + + | Address | [address] | | | [place] [address] | + + + | Home Phone | | + + + | Preferred Language | Unknown | + + + | Marital Status | | + + + | Mormonism Affiliation | NON | + + + [...] Team Providers + +------+ + | Care Lighting Equipment Operator Name | Role | Phone | [...] Pérez | | | | Order | [address] [facility], | | | | | [address] | [place] [address] | | | | | [address], | [phone] | | | | | 4th floor [place], | | | | | | [place] [address] | | | | | | [phone] | | | +--------+ + + + [...] + | MRN: | [facility] | | [id number] Date: 06/27/2017Patient Name: William Nair #: | ENDOSCOPY | | [id number] of : 1935SN: [id number] Type: | | | InpatientRoom: SORProcedure: ERCPIndications: | | | For therapy of ascending cholangitis; 82 yo M with | | | sepsis, elevated LFTs and US showing mary dil and 1.3 cm | | | CBDProviders: BRVALENTINA | | | Thompson MALDONADO MD (Doctor), JORDY SOLANO, | | | RN (Nurse), ESTELA DAMIAN, SARI (Developmental Education Instructor)Referring MD: | | | Requesting Provider: Medicines: [...] The | | | Olympus TJF-Q180V Duodenoscope #[id number] was | | | introduced through the [...] with acute | | | cholangitis. The supervisor sintering plant film was normal. The esophagus was | [...] Initiated On: | | | 06/27/2017 6:38 [facility] Letter to: LANA MATHEWS MD | | [...]
--- OUTSIDE RECORDS SUMMARY | ~2019-11-19 | XMS | Encounter Summary ---
Demographics + + + | Address | [address] | | | [place] [address] | + + + | Home Phone [...] + + + | Author | [facility] | + + + | Organization | [facility] | + + + | Address | Unknown | + + + | Phone | Unavailable | + + + Support + + +---------+ + | Name | Relationship | Address | Phone | + + +---------+ + | None Per Pt | ECON | Unknown | Unavailable | + + +---------+ + Care Team Providers + +------+ + | Care Gym Supervisor Name | Role | Phone | [...] | | | | | [place], | | | | | | [place] [address] | | | +--------+--------+ + + + [...]
--- OUTSIDE RECORDS SUMMARY | ~2019-11-19 | XMS | Encounter Summary ---
Demographics + + + | Address | [address] | | | [place] [address] | + + + | Home Phone [...] Providers + +------+ + | Care Tool Repair Technician Name | Role | Phone | + +------+ + | Herlinda Maldonado | PCP | | + +------+ + Encounter Details +--------+ + + + + | Date | Type | Department | Care Team | Description | +--------+ + + + + | 06/26/ | Document-Sc | Health Information | Other, Faculty | | | 2018 | anned | Services [address] | [phone] | | | | | [address] | | | | | | Mailcode: [id number] | | | | | | [facility] | | | | | | [place], [place] | | | | | | [address] | | | | | | [phone] | | | +--------+ + + + [...]
--- OUTSIDE RECORDS SUMMARY | ~2019-11-19 | XMS | Encounter Summary ---
Demographics + + + | Address | [address] | | | [place] [address] | + + + | Home Phone | | + + + | Preferred Language | Unknown | + + + | Marital Status | | + + + | Latter-Day Affiliation | NON | + + + [...] Team Providers + +------+ + | Care Pricing Clerk Name | Role | Phone | [...] Mitesh | | | | | [facility] | [facility] | | | | | [facility] Admitting | [place], [place] | | | | | Desk Located on the | [address] | | | | | 9th floor | [phone] | | | | | [place], [place] | | | | | | [address] | | | +--------+ + + + [...] + + | Urethr | 06/26/17; 09; [facility]; | 06/26/17 09 by | 06/27/17 1100 by | | al | Veena-nita Arriaga; 06/27/17; 1100 | Leonor Peck RN | Lani Chicas RN | | Cathet | | | | | er | | | | +--------+ + + + | Centra | 06/26/17; 0900; Dr. Garcia; [facility]; | 06/26/17 0900 by | 06/27/17 [...]
--- OUTSIDE RECORDS SUMMARY | ~2019-11-19 | XMS | Encounter Summary ---
Demographics + + + | Address | [address] | | | [place] [address] | + + + | Home Phone [...] Team Providers + +------+ + | Care Television Operator Name | Role | Phone | [...] | Transcriptions | + + | Interface, Environmental Services Supervisor In - 11/26/2005 3:10 AM PDT | | [place] [address] | | [place], [place] [address] | | [facility] RECORDMed Rec [...] waspatched.Fozia Crawford M.D., PhDJTS:X44D: 06/19/2002T: | | 06/20/[id number] | |lid speculum was placed. Slit light [...] | |JTS:X44 | | | | | |[id number] | + + documented in this encounter Visit Diagnoses Not on filedocumented in this encounter"
--- OUTSIDE RECORDS SUMMARY | ~2019-11-19 | XMS | Encounter Summary ---
Demographics + + + | Address | [address] | | | [place] [address] | + + + | Home Phone | | + + + | Preferred Language | Unknown | + + + | Marital Status | | + + + | Hinduism Affiliation | Unknown | + + + | Race | Unknown | + + + | Ethnic Group | Unknown | + + + Author + + + | Author | [facility] | | | and [place] | + + + | Organization | [facility] | | | [...] Team Providers + +------+ + | Care Feather Drying Machine Operator Name | Role | Phone [...] | | | | | | | CO ERCP DX | | | | | | | COLLECTION | | | | | | | SPECIMEN | | | | | | | BRUSHING/WAS | | | | | | | JOSE CO | | | | | | | ERCP | | | | | | | BILIARY/PANC | | | | | | | DUCT STENT | | | | | | | EXCHANGE | | | | | | | W/DIL&WIRE | | | | | | | CO | | | | | | | [...] + + | 08/14/ | Hospital | [facility] | Jamey Hdz | | | 2018 | Encounter | MED CTR XRAY [address] | MD Sark[address] | | | | | [address] | [address] [place] | | | | | [place] [address] | [place] [address] | | | | | [phone] | [phone] | | | | | | | [...]
--- OUTSIDE RECORDS SUMMARY | ~2019-11-19 | XMS | Encounter Summary ---
Demographics + + + | Address | [address] | | | [place] [address] | + + + | Home Phone | | + + + | Preferred Language | Unknown | + + + | Marital Status | | + + + | Buddhism Affiliation | Unknown | + + + | Race | Unknown | + + + | Ethnic Group | Unknown | + + + Author + + + | Author | [facility] | | | and [place] | + + + | Organization | [facility] | | [...] Team Providers + +------+ + | Care Diesel Bus Mechanic Name | Role | Phone | + [...] | | | pulmonary | [address] | [address] | | | | | disease, | [place] | [address] | | | | | unspecified | [facility], [place] | [place], [place] | | | | | COPD type | [address] | [address] Phone: | | | | | ([facility]) | Phone: | [phone] | | | | | | [phone] | Fax: | | | | | | Fax: | [phone] | | | | | | [phone] | | +--------+ + + + + [...] | Atrial | Maximilian | [address] | | | | | fibrillation | MD Jon | [place], | | | | | , | [address] | [place] | | | | | unspecified | [place] | [address] | | | | | type (HCC) | [place], [place]FF[place] | Phone: | | | | | Procedures | [address] | [phone] | | | | | ECHO | Phone: | Fax: | | | | | Complete | [phone] | [phone] | | | | | | Fax: | | | | | | | [phone] | | +--------+--------+ + + + + [...] fibrillation | [address] | [address] | | | | | ([facility]) | Addy Villagomez | [place] | | | | | Procedures | [place], | [place], [place] | | | | | AIRCRAFT MAINTENANCE ENGINEER | [place] | [address] Phone: | | | | | | [address] | [phone] | | | | | | Phone: | Fax: | | | | | | [phone] | [phone] | | | | | | Fax: | | | | | | | [phone] | | +--------+--------+ + + + + Encounter Details +--------+---------+ + + + | Date | Type | Department | Care Team | Description | +--------+---------+ + + + | 01/09/ | [facility] | [facility] | Maximilian Abreu | Atrial fibrillation, | | 2019 | Visit | CARDIOLOGY [address] | MD Jon [address] | unspecified type | | | | [address] [place], | [address] [place] | (HCC) (Primary Dx); | | | | [place] [address] | [place] [address] | Right fascicular | | | | [phone] | [phone] | block; Essential | | | | [...] PM PDT Referral to Dr Hairston - Hvac Sheet Metal Installer Helper in [facility]. Someone from that office will call you to arrange an appointment. Holter Monitor : 24 hour Date: Check-In Time: Where to Check in: Echo: Date: Check-In Time: Where to Check In: Follow up appointment: Provider: Soraida bAreu MD Date: Check-In Time: documented in this [...] OTHER SURGICAL HISTORY Endobiliary stent placed at [facility] Removal of lesion Right 2010 [...] made to ensure accuracy; however, inadvertent computerized jewel diameter gauger errors may be pre sent. Electronically signed [...] Chronic | Ordered: 01/13/2019 | | to [facility] | Referral | e | obstructive [...] CARE: | | | SHAHEEN Toro READING PAVING BLOCK CUTTER: Salvador Abreu MD, | | | PhD, [facility] 48-HOUR HOLTER MONITOR REPORT DATE: [...] 01:15. 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
--- OUTSIDE RECORDS SUMMARY | ~2019-11-19 | XMS | Encounter Summary ---
Demographics + + + | Address | [address] | | | [place] [address] | + + + | Home Phone [...] Team Providers + +------+ + | Care Wrapper Hands Sprayer Name | Role | Phone | + [...] | | | | | [place], | | | | | | [place] [address] | | | +--------+--------+ + + + [...]
--- OUTSIDE RECORDS SUMMARY | ~2019-11-19 | XMS | Encounter Summary ---
Demographics + + + | Address | [address] | | | [place] [address] | + + + | Home Phone [...] Team Providers + +------+ + | Care Head Of Measurement & Insights Name | Role | Phone | + [...] | Transcriptions | + + | Interface, Spd Tech In - 11/26/2005 3:10 AM PDT | | [place] [address] | | [place], [place] [address] | | [facility]ORDMed Rec No.: | | [id number] Date: 07/14/2002Name: Carlos Burns SURGEON: | | Fozia Crawford M.D., Ph.D.NUT ORCHARDIST: Med | | Jerrell GuPREOPERATIVE DIAGNOSIS:Rhegmatogenous retinal [...] proliferative materialadherent to the flap. Using the Fernadnez forceps, this | | material was removedfrom [...] | | Jun Crawford M.D., Ph.D.JS:x54D: 07/14/2002T: 07/16/[id number] | |attention was directed towards the right [...] | |JS:x54 | | | | | |[id number] | + + documented in this encounter Visit Diagnoses Not on filedocumented in this encounter"
--- OUTSIDE RECORDS SUMMARY | ~2019-11-19 | XMS | Encounter Summary ---
Demographics + + + | Address | [address] | | | [place] [address] | + + + | Home Phone | | + + + | Preferred Language | Unknown | + + + | Marital Status | | + + + | Druze Affiliation | NON | + + + [...] Providers + +------+ + | Care Cnc Mill Set Up Operator Name | Role | Phone | + +------+ + | Herlinda Maldonado | PCP | | + +------+ + Encounter Details +--------+ + + + + | Date | Type | Department | Care Team | Description | +--------+ + + + + | 06/16/ | Telephone | [facility] Primary Care | Sid, | | | 2018 | | at [facility] | Alexa Anderson MD | | | | | [address] | [address] | | | | | Loop Physician's | [place], | | | | | [place], [address] floor | [place] [address] | | | | | [place], [place] | [phone] | | | | | [address] | | | | | | [phone] | | | +--------+ + + + [...]
--- OUTSIDE RECORDS SUMMARY | ~2019-11-19 | XMS | Encounter Summary ---
Demographics + + + | Address | [address] | | | [place] [address] | + + + | Home Phone [...] Team Providers + +------+ + | Care Spinner Tender Name | Role | Phone | [...] | | [address] | [place], [place] | | | | | [place] [place], | [address] | | | | | [address] floor [place], | [phone] | | | | | [place] [address] | | | | | | [phone] | | | +--------+ + + + [...]
--- OUTSIDE RECORDS SUMMARY | ~2019-11-19 | XMS | Encounter Summary ---
Demographics + + + | Address | [address] | | | [place] [address] | + + + | Home Phone [...] Team Providers + +------+ + | Care Preschool Teacher Assistant Name | Role | Phone | [...] | | | | | [facility] | [facility] | | | | | Hospital Admitting | [place], [place] | | | | | Desk Located on the | [address] | | | | | 9th floor | [phone] | | | | | [place], [place] | | | | | | [address] | | | +--------+ + + + [...] | | +--------+ + + + | Candy Starch Mold Printer | 06/27/17; 2205; Medium | 06/27/172205 by [...] | | Endotracheal Tube; 7.5; Oral; | COOK'S ASSISTANT | COOK'S ASSISTANT | | | 06/03/18; 1418 | | [...] | Narrative Attending: CATHI MACARIO Performed by COOK'S ASSISTANT | | | DONNIE CARDONA | | [...]
--- OUTSIDE RECORDS SUMMARY | ~2019-11-19 | XMS | Encounter Summary ---
Demographics + + + | Address | [address] | | | [place] [address] | + + + | Home Phone [...] Providers + +------+ + | Care Belt Conveyor Drier Name | Role | Phone | [...] | | | | | [place] | [address] | | | | | thiasis | [place] [address] | [place] | | | | | Procedures | [place] | [place], [address] | | | | | CONSULT TO | [place], [place] | floor | | | | | GI | [address] | [place], [place] | | | | | PROCEDURE: | Phone: | [phone] | | | | | ERCP / | [phone] | Phone: | | | | | BILIARY | Fax: | [phone] | | | | | MANOMETRY | [phone] | Fax: | | | | | | | [phone] | +--------+--------+ + + + + Encounter Details +--------+ + + + + | Date | Type | Department | Care Team | Description | +--------+ + + + + | 06/27/ | Pattern Carrier | Digestive Health | Lyla Mendoza | Choledocholithiasis | | 2018 | | [place] [facility] [address] | MD Rashida [address] [facility] | (Primary Dx) | | | | [address] | [address] | | | | | Mailcode: Center | [place], [place] | | | | | for Health and | [address] | | | | | [facility], [address] | [phone] | | | | | [facility] [place] | | | | | | [address] | | | | | | [phone] | | | +--------+ + + + [...]
--- OUTSIDE RECORDS SUMMARY | ~2019-11-19 | XMS | Encounter Summary ---
Demographics + + + | Address | [address] | | | [place] [address] | + + + | Home Phone [...] Team Providers + +------+ + | [employer] Salesperson Name | Role | Phone | + [...] | | | | | ng | [address] | Mailcode: | | | | | Procedures | [address] | [facility] | | | | | PHYSICAL | [address] | for Health | | | | | THERAPY | [place], [place] | and Healing, | | | | | REFERRAL | [address] | Building [address], | | | | | | Phone: | [address] Floor | | | | | | [phone] | [place], [place] | | | | | | Fax: | [address] | | | | | | [phone] | Phone: | | | | | | | [phone] | | | | | | | Fax: | | | | | | | [phone] | +--------+--------+ + + + + Reason [...] + + | 06/26/ | Hospital | [address] | Alberto Miranda MD | | | 2018 - | Encounter | [facility] [address] | [address] | | | | | [address] [place] [address] | Carolina Guerra [place], | | | 06/30/ | | [place], [place] | [place] [address] | | | 2017 | | [address] | [phone] | | | | | [phone] | | | | | | | Vic Petty | | | | | | MD [place] [address] | | | | | | [address] | | | | | | [place], [place] | | | | | | [address] | | | | | | [phone] | | | | | | | [...] might be differen t from the original. [facility] Discharge Summary Discharging Provider: VIRGIL GRIMM MD [...] and intubated prior to tra nsfer to [facility]. Workup was notable for RUQ U/S [...] Your Medications These medications were sent to [id number] [address] [place] [address] [place] [address] Hours: 9AM-7PM MON - FRI / 9AM-6PM [...] Thank you for entrusting your care to [facility] Internal Medicine. If you have any problems or concerns before you are able to follow up with your Primary Care Provider, please call and ask the bottle washing machine operator to page the attending physician, Vic Petty MD, wh o was caring for you at discharge. If that physician is not available, ask the bottle washing machine operator to page the physician incident response lead for the Medical Teaching Service. Call us right away if any of the following occur: Recurrent abdominal pain Shaking chills or night sweats Other Discharge Orders and Instructions You will be called by the [facility] GI service within the next week to schedule a repeat appoint ment for ERCP and possible stent removal. Home Health Referral after Hospitalization Comments: I certify that this patient is under my care and that I, or Nurse Practitioner or Physician Automotive Teacher working with me, had a face to face encounter with this patient on 06/30/2017 On behalf of Attending Physician: Vic Petty MD I am ordering and certify that the following services are medically necessary home health s [facility] Home Health Physical Therapy Evaluate and Treat I certify that the patient is homebound based on the following clinical findings Post-hospi tono weakness, decreased strength and endurance, and tires easily with minimal exertion Follow Up: Schedule the following appointment(s) when you get home DARYL MATHEWS MD . Specialty: Internal Medicine Contact information [facility] [address] [place] [address] [address] [facility] [address] Discharge Physical Exam: Last [...] (HCC) 12) Acute respiratory failure with hypoxia ([facility]) Please refer to the resident discharge summary for additional details. Vic Petty MD, PhD Clinical Hospitalist and Medicine Teaching Services Count Includes [facility] [place] Pager [phone] I have spent 35 minutes with the [...] might be different from bella landin. PHYSICIAN HOME HEALTH CARE RESPIRATORY THERAPIST STUDENT PROGRESS NOTE FOR EDUCATIONAL PURPOSES ONLY [...] Q2H PRN ipratropium-albuterol 3 mL Q6H PRN ymsvquup-wfkfobs-bcvrmwue-zinc QID PRN oxyCODONE (immediate release) 2.5-5 mg [...] [facility] Physician Automotive Teacher Program 06/29/17 Kang Zhang MD - 06/29/2017 [...] List: Active Hospital Problems 1) *Septic shock ([facility]) 2) Choledocholithiasis 3) Acute cholangitis 4) Klebsiella sepsis ([facility]) 5) Aspiration pneumonitis ([facility]) 6) S/P ERCP 7) COPD (chronic obstructive pulmonary disease) ([facility]) 8) Essential hypertension 82 year-old man with HTN, COPD not on supplemental oxygen, who presented to OSH with epigas tric pain and abnormal LFTs, admitted for septic shock due to acute cholangitis and acute hy poxic respiratory failure due to aspiration requiring intubation, transferred to [facility] MICU. Here found to have klebsiella [...] [facility] Pager [phone] I have spent 26 minutes with the [...] interval not displayed. Micro: BLOOD CULTURE WORKUP [[id number]] (Abnormal) [facility] Collected: 06/26/17938 Lab Status: [...] List: Active Hospital Problems 1) *Septic shock ([facility]) 2) Choledocholithiasis 3) Acute cholangitis 4) Klebsiella sepsis ([facility]) 5) Aspiration pneumonitis ([facility]) 6) S/P ERCP 7) COPD (chronic obstructive pulmonary disease) ([facility]) 8) Essential hypertension Resolved Hospital Problems 9) Septic shock ([facility]) 10) Non-ST elevation myocardial infarction (NSTEMI), type 2 ([facility]) 11) Acute respiratory failure with hypoxia ([facility]) Assessment: William Burns is a 82 [...] Primary Surrogate Decision Maker Sharon Rodriguez Daughter [phone] Dimas Xavier MD Internal Medicine, PGY-3 #[id number] Louis Hernandez MD - 06/28/2017 2:26 PM [...] management as outpatient (pt prefers facility near [place]) --> if develops post ERCP complications or [...] Horne - 06/28/2017 7:47 AM PST PHYSICIAN HOME HEALTH CARE RESPIRATORY THERAPIST STUDENT PROGRESS NOTE FOR EDUCATIONAL PURPOSES ONLY [...] Q2H PRN ipratropium-albuterol 3 mL Q6H PRN vbznlkhv-neqvqbv-hnxfwbea-zinc QID PRN oxyCODONE (immediate release) 2.5-5 mg [...] on klebsiella cultures for sensitivity. Spoke with Plumber Gasfitter at [facility] @1330, N o sensitivity results yet from [...] IV/Airways/Catheters: PIV Code status: FULL SHONDA OconnellS Count Includes [facility] Physician Automotive Teacher Program 06/28/17 Alisha Rai M D - [...] 86 87 78 HCO3 22 24 23 ARXTV7PZO 24 25 24 R1ABPIND 96.4 97.0 96.8 FIO2 0.80 0.25 0.21 [...] in the patient's condition). ALISHA MAYNARD MD [facility] [address] [place] [id number] Camilo Amaya MD - 11/2017 6:00 AM PST [facility] MEDICAL ICU - PROGRESS NOTE Hospital [...] 6.5 mL/Kg (459.6 mL) RR: 22 bpm [place] BW: 70.7 kg FiO2 21 fraction of [...] 87 78 HCO3 -- 22 24 23 GQN4HSP4 -- 108* 348 371 VBGPH 7.27* -- [...] Primary Surrogate Decision Maker Sharon Rodriguez Daughter [phone] This patient was staffed with Dr. Maynard, [...] duct clearance Rene Maldonado MD Gastroenterology Pager [phone] - Virginia Cerna MD - 06/26/2017 4:38 PM PSTFormatting of this note might be different from the origi nal. PRE PROCEDURE NOTE: MR# [id number] Subjective: William Burns is a 82 y.o. [...] 4 hours. Concern for choledocholithiasis. Transferred t [facility] this morning. Has history of COPD and [...] results for input(s): PH, PCO2, PO2, HCO3, LHQIH6FDS, H2KZMWLS, K2TYTGKBF, FIO2 in the l ast 72 hours. [...] in the patient's condition). ALISHA MAYNARD MD [facility] [address] [place] [address] documented in this enco unter Plan of [...] | + +--------+ + + + | VO-CC-AQP-HB,POC RT | Urgent | 06/26/2017 | | [...] + + + | ECG | Short HI interval | | [facility] | | [...] | [facility] | [address] [facility] | [place], [place] | | | CARDIOLOGY | [address] | [address] | | + + + + + [...] | + + + + + | [facility] | [address] | [place] [address] | | | SERVICES, CORE | PARK [...] | + + + + + | [facility] | [address] [facility] | [place] [address] | | | SERVICES, CORE | PARK [...] | LABORATORY | | | [place] | | | SERVICES, | | | [...] | + + + + + | [facility] | [address] | [place] [address] | | | SERVICES, [place] | [place] [...] LABORATORY | [address] | [place] [address] | | | SERVICES, [facility] | [address] | | | + [...] Note | + + | Service Account, Outbox Systems Res In Interface - 06/28/2017 5:02 PM [...] AM[facility] | [address] | [place], [place] | | | YUE POINT OF CARE | [facility] | [address] | | | TESTS | | | [...] LABORATORY | [address] | [place] [address] | | | SARA, [place] | PARK [...] [facility] | [address] | [place] [address] | | | SERVICES, CORE | PARK [...] | LABORATORY | | | [place] | | | SERVICES, | | | [...] + | [facility] | [address] | [place] [address] | | | SERVICES, [place] | PARK [...] | + + + + + | [facility] | [address] | [place] [address] | | | [place] RUIZ | [place] [...] (H) | 70 - 99 mg/dL | [facility] - | | | GLUCOSE, | [...] TOBAR | [address] | [place], [place] | | | YUE POINT OF CARE | [address] | [address] | | | TESTS | | | [...] TOBAR | [address] | [place], [place] | | | [facility] | [address] | [address] | | | TESTS | | | [...] MARQUAM | [address] | [place], [place] | | | [facility] [place] | [address] | [address] | | | TESTS | | | [...] | LABORATORY | | | [place] | | | SERVICES, | | | [...] | + + + + + | [facility] | [address] | [place] [address] | | | SERVICES, [place] | [place] [...] | + + + + + | [facility] | [address] | [place] [address] | | | [place] RUIZ | [place] [...] + + | [facility] | [address] | [place] [address] | | | SERVICES, CORE | PARK [...] LABORATORY | [address] | [place] [address] | | | SERVICES, [place] | [place] [...] | + + + + + | [facility] | [address] | [place] [address] | | | SERVICES, CORE | [place] [...] (H) | 70 - 99 mg/dL | [facility] - | | | GLUCOSE, | | [...] AMADOU | [address] | [place], [place] | | | [facility] [place] | [facility] | [address] | | | TESTS | | | [...] LABORATORY | [address] | [place] [address] | | | SERVICES, CORE | PARK [...] [facility] | | | GRAVITY | Specific Munger | | LABORATORY | | | | [...] LABORATORY | [address] | [place] [address] | | | [place] RUIZ | [address] | | | + + + + + ERCP (06/27/2017 6:38 AM PST) + + | Specimen | + + | | + + + + + | Narrative | Performed At | + + + | MRN: | [facility] | | [id number] Date: 06/27/2017Patient Name: William Nair #: | ENDOSCOPY | | [id number] of : 1935SN: [id number] Type: | | | InpatientRoom: SORProcedure: ERCPIndications: | | | For therapy of ascending cholangitis; 82 yo M with | | | sepsis, elevated LFTs and US showing mary dil and 1.3 cm | | | CBDProviders: BRVALENTINA | | | Thompson MALDONADO MD (Doctor), JORDY SOLANO, | | | RN (Nurse), ESTELA DAMIAN, RN (Volleyball Assembler)Referring MD: | | | Requesting Provider: Medicines: [...] The | | | Olympus TJF-Q180V Duodenoscope #[id number] was | | | introduced through the [...] with acute | | | cholangitis. The petroleum blending plant operator film was normal. The esophagus was [...] Initiated On: | | | 06/27/2017 6:38 [facility] Letter to: DARYL MATHEWS MD | [...] + | MRN: | [facility] | | [id number] Date: 06/27/2017Patient Name: William Nair #: | ENDOSCOPY | | [id number] of : 1935SN: [id number] Type: | | | InpatientRoom: SORProcedure: ERCPIndications: | | | For therapy of ascending cholangitis; 82 yo M with | | | sepsis, elevated LFTs and US showing mary dil and 1.3 cm | | | CBDProviders: BRINTHA | | | Thompson MALDONADO MD (Doctor), JORDY SOLANO, | | | RN (Nurse), ESTELA DAMIAN RN (Volleyball Assembler)Referring MD: | | | Requesting Provider: Medicines: [...] The | | | Olympus TJF-Q180V Duodenoscope #[id number] was | | | introduced through the [...] with acute | | | cholangitis. The petroleum blending plant operator film was normal. The esophagus was [...] Initiated On: 06/27/2017 | | | 6:38 [facility] Letter to: DARYL MATHEWS MD | [...] | + + + + + | [facility] | [address] | [place] [address] | | | SERVICES, CORE | PARK [...] LABORATORY | [address] | [place] [address] | | | SARA, [place] | [place] [...] | + + + + + | [facility] | [address] | [place] [address] | | | SARA, [place] | [place] [...] | LABORATORY | | | [place] | | | SERVICES, | | | [...] | + + + + + | [facility] | [address] | [place] [address] | | | SERVICES, CORE | PARK [...] + + | ECG | Borderline prolonged HI | | [facility] | | | [...] OF | [address] | [place], [place] | | | CARDIOLOGY | [address] | [address] | | + + + + + [...] Note | + --------+ | Service Account, Outbox Systems Res In Interface - 06/28/2017 9:20 [...] | + + + + + | [facility] | [address] | [place] [address] | | | SERVICES, CORE | [place] [...] (H) | 70 - 99 mg/dL | [facility] - | | | GLUCOSE, | [...] + + + | [facility] | [address] | [place], [place] | | | [facility] | [address] | [address] | | | TESTS | | | [...] Note | + + | Service Account, Outbox Systems Res In Interface - 06/27/2017 9:07 [...] [facility] | [address] | [place], [place] | | | YUE POINT OF CARE | [address] | [address] | | | TESTS | | | [...] OF | [address] | [place], [place] | | | CARDIOLOGY | [address] | [address] | | + + + + + [...] correct patient, procedure, | | | equipment, client technical support associate and site/side marked as required. | | [...] | | | | | | Pathology ResidentWestover | | | | | | Louis [...] number | | | | | | [id number]. Bile duct, | | | | | [...] + + + | [facility] | [address] | [place] [address] | | | PATHOLOGY | [address] [...] correct patient, | | | procedure, equipment, client technical support associate and site/side marked as required. | | [...] modified Seldinger technique (a | | | wtpttndc-uetu-xvt-bqahps-yqfh-bclb-umylder-vtc-nxubbsiv) was used for | | | vessel [...] LABORATORY | [address] | [place] [address] | | | SERVICES, CORE | [place] [...] | + + + + + | [facility] | [address] | [place] [address] | | | SARA, [place] | [place] [...] | + + + + + | [facility] | [address] | [place] [address] | | | SERVICES, CORE | [place] [...] LABORATORY | [address] | [place] [address] | | | SERVICES, CORE | [place] [...] | LABORATORY | | | [place] | | | SERVICES, | | | [...] | + + + + + | [facility] | [address] | [place] [address] | | | [place] RUIZ | [place] [...] OF | [address] | [place], [place] | | | CARDIOLOGY | [address] | [address] | | + + + + + [...] | + + + + + | [facility] | [address] | [place] [address] | | | SERVICES, CORE | [place] [...] | + + + + + | [facility] | [address] | [place] [address] | | | SERVICES, CORE | [place] [...] | + + + + + | [facility] | [address] | [place] [address] | | | SERVICES, CORE | [place] [...] | + + | Service Account, Shana Panopto In Interface - 06/26/2017 12:57 PM PST [...] valves (2.5 - 3.5) INR APTT | [facility], CORE | | Therapeutic Range: (75 - 120) sec | | | Heparin levels of 0.35 - 0.7 U/mL | | + + + + + + + + | Performing | Address | City/State/Zipcode | Phone Number | | Organization | | | | + + + + + | [facility] | [address] | [place] [address] | | | SERVICES, [facility] | [address] | | | + [...] Note | + ----+ | Service Account, Outbox Systems Res In Interface - 06/26/2017 12:57 [...] Note | + + | Service Account, CodeSealer In Interface - 06/26/2017 12:55 PM PST [...] Note | + + | Service Account, Outbox Systems Res In Interface - 06/26/2017 12:53 PM [...] Account, Shana Res In Interface - 06/26/2017 10:12 AM [...] LABORATORY | [address] | [place] [address] | | | SERVICES, | [address] [...] LABORATORY | [address] | [place] [address] | | | SERVICES, | [address] [...] LABORATORY | [address] | [place] [address] | | | SERVICES, | [address] [...] + + + | ECG | Prolonged HI interval | | [facility] | | [...] DEPT OF | [address] | [place], [place] | | | CARDIOLOGY | [address] | [address] | | + + + + + [...] + | [facility] | [address] | [place] [address] | | | [place] | | | [...] + | [facility] | [address] | [place] [address] | | | [place] | | | | + + + [...] LABORATORY | [address] | [place] [address] | | | [place] RUIZ | [place] [...] | + + + + + | [facility] | [address] | [place] [address] | | | SARA, [place] | [place] [...] LABORATORY | [address] | [place] [address] | | | SERVICES, CORE | PARK [...] | + + + + + | [facility] | [address] | [place] [address] | | | SERVICES, CORE | PARK [...] LABORATORY | [address] | [place] [address] | | | SERVICES, CORE | PARK [...] | + + + + + | [facility] | [address] | [place] [address] | | | SERVICES, CORE | [place] [...] OH LABORATORY | [address] | [place] [address] | | | SERVICES, [facility] | [address] | | | + [...] | LABORATORY | | | [place] | | | SERVICES, | | | [...] | + + + + + | [facility] | [address] | [place] [address] | | | SERVICES, CORE | PARK [...] | + + + + + | [facility] | [address] | [place] [address] | | | SERVICES, CORE | [address] | | | + + + + + GQ-QM-OGC-HB,POC RT (06/26/2017 8:55 AM PST) + + [...] [facility] | [address] | [place], [place] | | | [facility] | [address] | [address] | | | TESTS | | | [...] | | | | | modification) on [facility] 06/28/17 at | | | | [...] | | | | ONCE, 1 dose, [facility] 06/26/17 at 0845 | | AM PST [...]
--- OUTSIDE RECORDS SUMMARY | ~2019-11-19 | XMS | Encounter Summary ---
Demographics + + + | Address | [address] | | | [place] [address] | + + + | Home Phone [...] Providers + +------+ + | Care Tool Worker Name | Role | Phone | [...] | | | | | [place] [address] [place], | [place], [place] | | | | | [place] [address] | [address] | | | | | [phone] | [phone] | | | | | | | [...] PT other exercises he can practice, given mtl-rrertn-feamggu status # Insomnia, sleep-onset - Sleep hygiene: [...] foll owing additions/clarifications/exceptions: none Crystal Evans MD [facility] Division of Internal Medicine and Geriatrics documented in this encounter Plan of Treatment Not on filedocumented as of this encounter Visit Diagnoses Not on filedocumented in this encounter
--- OUTSIDE RECORDS SUMMARY | ~2019-11-19 | XMS | Encounter Summary ---
Demographics + + + | Address | [address] | | | [place] [address] | + + + | Home Phone [...] + + | Author | [facility] | + + + | Organization | [facility] | + + + | Address | Unknown | + + + | Phone | Unavailable | + + + Support + + +---------+ + | Name | Relationship | Address | Phone | + + +---------+ + | None Per Pt | ECON | Unknown | Unavailable | + + +---------+ + Care Team Providers + +------+ + | Care Fiber Picker Name | Role | Phone | + [...] | | | | | [facility] | [address] | | | | | thiasis | [address] | [place] | | | | | Procedures | [place] Estevez | [address], [address] | | | | | CONSULT TO | [place] | floor | | | | | GI | [address] | [place], [place] | | | | | PROCEDURE: | Phone: | [address] | | | | | ERCP / | [phone] | Phone: | | | | | BILIARY | Fax: | [phone] | | | | | MANOMETRY | [phone] | Fax: | | | | | | | [phone] | +--------+--------+ + + + + Encounter Details +--------+ + + + + | Date | Type | Department | Care Team | Description | +--------+ + + + + | 06/27/ | [address] | Digestive Health | Lyla Mendoza | Choledocholithiasis | | 2018 | | [facility] [address] | MD Rashida [address] [facility] | (Primary Dx) | | | | Sherman Villagomez | [address] | | | | | Mailcode: Center | [place], [place] | | | | | for Health and | [address] | | | | | [facility], [address] | [phone] | | | | | [facility] [place] | | | | | | [address] | | | | | | [phone] | | | +--------+ + + + [...]
--- OUTSIDE RECORDS SUMMARY | ~2019-11-19 | XMS | Encounter Summary ---
Demographics + + + | Address | [address] | | | [place] [address] | + + + | Home Phone [...] Team Providers + +------+ + | Care Photograph Inspector Name | Role | Phone | [...] | | | | | | [facility] | | | | | | Hospital Admitting | | | | | | Desk Located on the | | | | | | 9th floor | | | | | | [place], [place] | | | | | | [address] | | | +--------+ + + + [...]
--- OUTSIDE RECORDS SUMMARY | ~2019-11-19 | XMS | Encounter Summary ---
Demographics + + + | Address | [address] | | | [place] [address] | + + + | Home Phone | | + + + | Preferred Language | Unknown | + + + | Marital Status | | + + + | Latter-Day Affiliation | Unknown | + + + [...] Team Providers + +------+ + | Care Oil Field Caser Name | Role | Phone | + [...] | | [address] | [place] [address] | | | | | [address] | | | | | | [phone] | | | +--------+ + + + [...]
--- OUTSIDE RECORDS SUMMARY | ~2019-11-19 | XMS | Encounter Summary ---
Demographics + + + | Address | [address] | | | [place] [address] | + + + | Home Phone [...] Team Providers + +------+ + | Care Marine Driller Name | Role | Phone | + [...] | | | | | ng | [address] | Mailcode: | | | | | Procedures | [address] | [facility] | | | | | PHYSICAL | [address] | for Health | | | | | THERAPY | [place], [place] | and Healing, | | | | | REFERRAL | [address] | Building [address], | | | | | | Phone: | [address] | | | | | | [phone] | [place], [place] | | | | | | Fax: | [address] | | | | | | [phone] | Phone: | | | | | | | [phone] | | | | | | | Fax: | | | | | | | [phone] | +--------+--------+ + + + + Reason [...] + + | 06/26/ | Hospital | [address] | Alberto Miranda MD | | | 2018 - | Encounter | [facility] [address] | [address] | | | | | [address] [place] [address] | Carolina Guerra [place], | | | 06/30/ | | [place], [place] | [place] [address] | | | 2017 | | [address] | [phone] | | | | | [phone] | | | | | | | Vic Petty | | | | | | MD [place]erson [address] | | | | | | [address] | | | | | | [place], [place] | | | | | | [address] | | | | | | [phone] | | | | | | | [...] might be differen t from the original. [facility] Discharge Summary Discharging Provider: VIRGIL [...] intubated prior to tra nsfer to [facility]. Workup was notable for RUQ U/S [...] Your Medications These medications were sent to [id number] [address] [place] [address] [place] [address] Hours: 9AM-7PM MON - FRI / 9AM-6PM [...] you for entrusting your care to [facility] Internal Medicine. If you have any problems or concerns before you are able to follow up with your Primary Care Provider, please call and ask the bookkeeping machine operator to page the attending physician, Vic Petty MD, wh o was caring for you at discharge. If that physician is not available, ask the bookkeeping machine operator to page the physician cotton feeder for the Medical Teaching Service. Call us right away if any of the following occur: Recurrent abdominal pain Shaking chills or night sweats Other Discharge Orders and Instructions You will be called by the [facility] GI service within the next week to schedule a repeat appoint ment for ERCP and possible stent removal. Home Health Referral after Hospitalization Comments: I certify that this patient is under my care and that I, or Nurse Practitioner or Physician Rotary Cutter Feeder working with me, had a face to face encounter with this patient on 06/30/2017 On behalf of Attending Physician: Vic Petty MD I am ordering and certify that the following services are medically necessary home health [facility] Home Health Physical Therapy Evaluate and Treat I certify that the patient is homebound based on the following clinical findings Post-hospi tono weakness, decreased strength and endurance, and tires easily with minimal exertion Follow Up: Schedule the following appointment(s) when you get home DARYL MATHEWS MD . Specialty: Internal Medicine Contact information [facility] [address] [place] [address] [address] [facility] [address] Discharge Physical Exam: Last 24 hour [...] (HCC) 12) Acute respiratory failure with hypoxia ([facility]) Please refer to the resident discharge summary for additional details. Vic Petty MD, PhD Clinical Hospitalist and Medicine Teaching Services [facility] Pager [phone] I have spent 35 minutes with the [...] might be different from bella landin. PHYSICIAN EPOXY FABRICATION SUPERVISOR STUDENT PROGRESS NOTE FOR EDUCATIONAL PURPOSES [...] Q2H PRN ipratropium-albuterol 3 mL Q6H PRN eowfctsk-dkskghd-cpfffpqd-zinc QID PRN oxyCODONE (immediate release) 2.5-5 mg [...] IV/Airways/Catheters: PIV Code status: FULL DOREEN Oconnell [facility] Physician Rotary Cutter Feeder Program 06/29/17 Kang Zhang MD - 06/29/2017 [...] List: Active Hospital Problems 1) *Septic shock ([facility]) 2) Choledocholithiasis 3) Acute cholangitis 4) Klebsiella sepsis ([facility]) 5) Aspiration pneumonitis ([facility]) 6) S/P ERCP 7) COPD (chronic obstructive pulmonary disease) ([facility]) 8) Essential hypertension 82 year-old man with HTN, COPD not on supplemental oxygen, who presented to OSH with epigas tric pain and abnormal LFTs, admitted for septic shock due to acute cholangitis and acute hy poxic respiratory failure due to aspiration requiring intubation, transferred to [facility] MICU. Here found to have klebsiella [...] Hospitalist and Medicine Teaching Services [facility] Pager [phone] I have spent 26 minutes with the [...] interval not displayed. Micro: BLOOD CULTURE WORKUP [[id number]] (Abnormal) [facility] Collected: 06/26/17938 Lab Status: [...] List: Active Hospital Problems 1) *Septic shock ([facility]) 2) Choledocholithiasis 3) Acute cholangitis 4) Klebsiella sepsis ([facility]) 5) Aspiration pneumonitis ([facility]) 6) S/P ERCP 7) COPD (chronic obstructive pulmonary disease) ([facility]) 8) Essential hypertension Resolved Hospital Problems 9) Septic shock ([facility]) 10) Non-ST elevation myocardial infarction (NSTEMI), type 2 ([facility]) 11) Acute respiratory failure with hypoxia ([facility]) Assessment: William Burns is a 82 y.o. [...] Primary Surrogate Decision Maker Sharon Rodriguez Daughter [phone] Dimas Xavier MD Internal Medicine, PGY-3 #[id number] Louis Hernandez MD - 06/28/2017 2:26 PM [...] management as outpatient (pt prefers facility near [place]) --> if develops post ERCP complications or [...] Horne - 06/28/2017 7:47 AM PST PHYSICIAN EPOXY FABRICATION SUPERVISOR STUDENT PROGRESS NOTE FOR EDUCATIONAL PURPOSES [...] Q2H PRN ipratropium-albuterol 3 mL Q6H PRN jlcuxgxj-cmfnbnk-vcsqvbbv-zinc QID PRN oxyCODONE (immediate release) 2.5-5 mg [...] on klebsiella cultures for sensitivity. Spoke with Lens Blocker at [facility] @1330, N o sensitivity results yet from [...] Code status: FULL SHONDA OconnellS [facility] Physician Rotary Cutter Feeder Program 06/28/17 Alisha Rai M D - [...] 86 87 78 HCO3 22 24 23 EXQFR0MDX 24 25 24 P0QUVCKW 96.4 97.0 96.8 FIO2 0.80 0.25 0.21 [...] the patient's condition). ALISHA MAYNARD MD [facility] [address] [place] [id number] Camilo Amaya MD - 11/2017 6:00 AM PST [facility] MEDICAL ICU - PROGRESS NOTE Hospital [...] 6.5 mL/Kg (459.6 mL) RR: 22 bpm Roland BW: 70.7 kg FiO2 21 fraction of [...] 87 78 HCO3 -- 22 24 23 JTJ4OAO8 -- 108* 348 371 VBGPH 7.27* -- [...] Primary Surrogate Decision Maker Sharon Rodriguez Daughter [phone] This patient was staffed with Dr. Maynard, [...] duct clearance Rene Maldonado MD Gastroenterology Pager [phone] - Virginia Cerna MD - 06/26/2017 4:38 PM PSTFormatting of this note might be different from the origi nal. PRE PROCEDURE NOTE: MR# [id number] Subjective: William Burns is a 82 y.o. [...] 4 hours. Concern for choledocholithiasis. Transferred t [facility] this morning. Has history of COPD [...] results for input(s): PH, PCO2, PO2, HCO3, KXSCX0IND, G7IWCTRB, K3LNUGBRW, FIO2 in the l ast 72 hours. [...] the patient's condition). ALISHA MAYNARD MD [facility] [address] [place] [id number] documented in this enco unter Plan of [...] | + +--------+ + + + | VW-ZX-EDM-HB,POC RT | Urgent | 06/26/2017 | | [...] + + + | ECG | Short MI interval | | [facility] | | [...] | [facility] | [address] [facility] | [place], [place] | | | CARDIOLOGY | [address] | [address] | | + + + + + [...] + + + + | [facility] | [address] | [place] [address] | | | SERVICES, CORE | PARK [...] + + + + | [facility] | [address] | [place] [address] | | | SERVICES, CORE | PARK [...] | + + + + + | [facility] | [address] | [place] [address] | | | SERVICES, [place] | [place] [...] LABORATORY | [address] | [place] [address] | | | SERVICES, [facility] | [address] | | | + [...] Note | + + | Service Account, WhatsNexx Res In Interface - 06/28/2017 5:02 PM [...] AMAD[facility] | [address] | [place], [place] | | | YUE POINT OF CARE | [facility] | [address] | | | TESTS | | | [...] LABORATORY | [address] | [place] [address] | | | SARA, [place] | PARK [...] [facility] | [address] | [place] [address] | | | SERVICES, CORE | PARK [...] [facility] | [address] | [place] [address] | | | SERVICES, [place] | PARK [...] | + + + + + | [facility] | [address] | [place] [address] | | | [place] [address]Z | [place] [...] (H) | 70 - 99 mg/dL | [facility] - | | | GLUCOSE, | [...] TOBAR | [address] | [place], [place] | | | YUE POINT OF CARE | [address] | [address] | | | TESTS | | | [...] TOBAR | [address] | [place], [place] | | | [facility] | [address] | [address] | | | TESTS | | | [...] MARQUAM | [address] | [place], [place] | | | [facility] | [address] | [address] | | | TESTS | | | [...] | + + + + + | [facility] | [address] | [place] [address] | | | SERVICES, [place] | [place] [...] + + + + | [facility] | [address] | [place] [address] | | | [place] [address]Z | [place] [...] + + | [facility] | [address] | [place] [address] | | | SERVICES, CORE | PARK [...] LABORATORY | [address] | [place] [address] | | | SERVICES, [place] | [place] [...] + + + + | [facility] | [address] | [place] [address] | | | SERVICES, CORE | [place] [...] (H) | 70 - 99 mg/dL | [facility] - | | | GLUCOSE, | | [...] AMADOU | [address] | [place], [place] | | | [facility] | [facility] | [address] | | | TESTS | | | [...] LABORATORY | [address] | [place] [address] | | | SERVICES, CORE | PARK [...] [facility] | | | GRAVITY | [address] [place] | | LABORATORY | | | | [...] LABORATORY | [address] | [place] [address] | | | [place] R[address]Z | [address] | | | + + + + + ERCP (06/27/2017 6:38 AM PST) + + | Specimen | + + | | + + + + + | Narrative | Performed At | + + + | MRN: | [facility] | | [id number] Date: 06/27/2017Patient Name: William Nair #: | ENDOSCOPY | | [id number] of : 1935SN: [id number] Type: | | | InpatientRoom: SORProcedure: ERCPIndications: | | | For therapy of ascending cholangitis; 82 yo M with | | | sepsis, elevated LFTs and US showing mary dil and 1.3 cm | | | CBDProviders: BRVALENTINA | | | Thompson MALDONADO MD (Doctor), JORDY SOLANO, | | | RN (Nurse), ESTELA DAMIAN, RN (Electrical Lineman)Referring MD: | | | Requesting Provider: Medicines: [...] The | | | Olympus TJF-Q180V Duodenoscope #[id number] was | | | introduced through the [...] with acute | | | cholangitis. The irrigation teacher film was normal. The esophagus was | [...] Initiated On: | | | 06/27/2017 6:38 [facility] Letter to: DARYL MATHEWS MD | [...] + | MRN: | [facility] | | [id number] Date: 06/27/2017Patient Name: William Nair #: | ENDOSCOPY | | [id number] of : 1935SN: [id number] Type: | | | InpatientRoom: SORProcedure: ERCPIndications: | | | For therapy of ascending cholangitis; 82 yo M with | | | sepsis, elevated LFTs and US showing mary dil and 1.3 cm | | | CBDProviders: BRINTHA | | | Thompson MALDONADO MD (Doctor), JORDY SOLANO, | | | RN (Nurse), ESTELA DAMIAN RN (Electrical Lineman)Referring MD: | | | Requesting Provider: Medicines: [...] The | | | Olympus TJF-Q180V Duodenoscope #[id number] was | | | introduced through the [...] with acute | | | cholangitis. The irrigation teacher film was normal. The esophagus was | [...] Initiated On: 06/27/2017 | | | 6:38 [facility] Letter to: DARYL MATHEWS MD | | |06/27/2017 6:48:17 AM | | |Number of Addenda: 0 | | |Note Initiated On: 06/27/2017 6:38 AM | | |CC Letter to: | | | DARYL MATHEWS MD | | + + + + +---------+ + + | Performing | Address | City/State[facility] | Phone Number | | Organization [...] | + + + + + | [facility] | [address] | [place] [address] | | | SERVICES, CORE | PARK [...] LABORATORY | [address] | [place] [address] | | | SARA, [place] | [place] [...] | + + + + + | [facility] | [address] | [place] [address] | | | [place], [place] | [place] [...] + + | Performing | Address | City/State[facility] | Phone Number | | Organization | | | | + + + + + | [facility] | [address] | [place] [address] | | | SERVICES, CORE | PARK [...] + + | ECG | Borderline prolonged MI | | [facility] | | | [...] OF | [address] | [place], [place] | | | CARDIOLOGY | [address] | [address] | | + + + + + [...] Note | + --------+ | Service Account, WhatsNexx Res In Interface - 06/28/2017 9:20 AM [...] + + + + | [facility] | [address] | [place] [address] | | | SERVICES, CORE | [place] [...] (H) | 70 - 99 mg/dL | [facility] - | | | GLUCOSE, | [...] + + + | [facility] | [address] | [place], [place] | | | [facility] | [address] | [address] | | | TESTS | | | [...] Note | + + | Service Account, WhatsNexx Res In Interface - 06/27/2017 9:07 AM [...] [facility] | [address] | [place], [place] | | | YUE POINT OF CARE | [address] | [address] | | | TESTS | | | [...] OF | [address] | [place], [place] | | | CARDIOLOGY | [address] | [address] | | + + + + + [...] correct patient, procedure, | | | equipment, underwriting support specialist and site/side marked as required. [...] | | | | | | Pathology ResidentChesterfield | | | | | | Louis [...] number | | | | | | [id number]. Bile duct, | | | | | [...] HOSPITAL | [address] | [place] [address] | | | PATHOLOGY | [address] [...] correct patient, | | | procedure, equipment, underwriting support specialist and site/side marked as required. [...] modified Seldinger technique (a | | | wvaduoit-dyvi-uvv-qatlqc-umue-czck-abxsduv-ggn-vmgvfsrh) was used for | | | vessel [...] LABORATORY | [address] | [place] [address] | | | SERVICES, CORE | [place] [...] | + + + + + | [facility] | [address] | [place] [address] | | | SARA, [place] | [place] [...] | + + + + + | [facility] | [address] | [place] [address] | | | SERVICES, CORE | [place] [...] LABORATORY | [address] | [place] [address] | | | SERVICES, CORE | [place] [...] + + + + | [facility] | [address] | [place] [address] | | | [place] R[address]Z | [place] [...] OF | [address] | [place], [place] | | | CARDIOLOGY | [address] | [address] | | + + + + + [...] | + + + + + | [facility] | [address] | [place] [address] | | | SERVICES, CORE | [place] [...] + + + + | [facility] | [address] | [place] [address] | | | SERVICES, CORE | [place] [...] | + + + + + | [facility] | [address] | [place] [address] | | | SERVICES, CORE | [place] [...] | + + | Service Account, Shana Guerillapps In Interface - 06/26/2017 12:57 PM PST [...] valves (2.5 - 3.5) INR APTT | [facility], CORE | | Therapeutic Range: (75 - 120) sec | | | Heparin levels of 0.35 - 0.7 U/mL | | + + + + + + + + | Performing | Address | City/State/Zipcode | Phone Number | | Organization | | | | + + + + + | [facility] | [address] | [place] [address] | | | SERVICES, [facility] | [address] | | | + [...] Note | + ----+ | Service Account, WhatsNexx Res In Interface - 06/26/2017 12:57 PM [...] Note | + + | Service Account, DocSpera In Interface - 06/26/2017 12:55 PM PST [...] Note | + + | Service Account, WhatsNexx Res In Interface - 06/26/2017 12:53 PM [...] LABORATORY | [address] | [place] [address] | | | SERVICES, | [address] [...] LABORATORY | [address] | [place] [address] | | | SERVICES, | [address] [...] LABORATORY | [address] | [place] [address] | | | SERVICES, | [address] [...] + + + | ECG | Prolonged MI interval | | [facility] | | [...] DEPT OF | [address] | [place], [place] | | | CARDIOLOGY | [address] | [address] | | + + + + + [...] + | [facility] | [address] | [place] [address] | | | [place] | | | [...] + | [facility] | [address] | [place] [address] | | | [place] | | | | + + + [...] LABORATORY | [address] | [place] [address] | | | [place] [address]Z | [place] [...] | + + + + + | [facility] | [address] | [place] [address] | | | SARA, [place] | [place] [...] LABORATORY | [address] | [place] [address] | | | SERVICES, CORE | PARK [...] | + + + + + | [facility] | [address] | [place] [address] | | | SERVICES, CORE | PARK [...] LABORATORY | [address] | [place] [address] | | | SERVICES, CORE | PARK [...] | + + + + + | [facility] | [address] | [place] [address] | | | SERVICES, CORE | [place] [...] OH LABORATORY | [address] | [place] [address] | | | SERVICES, [facility] | [address] | | | + [...] | + + + + + | [facility] | [address] | [place] [address] | | | SERVICES, CORE | PARK [...] | + + + + + | [facility] | [address] | [place] [address] | | | SERVICES, CORE | [address] | | | + + + + + WV-IB-TLJ-HB,POC RT (06/26/2017 8:55 AM PST) + + [...] [facility] | [address] | [place], [place] | | | [facility] | [address] | [address] | | | TESTS | | | [...] | | | | | modification) on [facility] 06/28/17 at | | | | [...] | | | | ONCE, 1 dose, [facility] 06/26/17 at 0845 | | AM PST [...]
--- OUTSIDE RECORDS SUMMARY | ~2019-11-19 | XMS | Encounter Summary ---
Demographics + + + | Address | [address] | | | [place] [address] | + + + | Home Phone | | + + + | Preferred Language | Unknown | + + + | Marital Status | | + + + | Religion Affiliation | Unknown | + + + | Race | Unknown | + + + | Ethnic Group | Unknown | + + + Author + + + | Author | [facility] | | | and [place] | + + + | Organization | [facility] | | | [...] Team Providers + +------+ + | Care Cost Manager Name | Role | Phone | [...] + + | 07/26/ | Telephone | [facility] | Jamey Hdz | Care Coordination | | 2018 | | GASTROENTEROLOGY | MD Sarkis [address] | | | | | [address] TREASURE | [address] [facility] | | | | | [address] [place], [place] | [place] [address] | | | | | [address] | [phone] | | | | | [phone] | | | +--------+ + + + [...] Star cole, the patient's general surgeon in [place]. Dr. Neumann is requesting an ERCP for [...]
--- OUTSIDE RECORDS SUMMARY | ~2019-11-19 | XMS | Encounter Summary ---
Demographics + + + | Address | [address] | | | [place] [address] | + + + | Home Phone [...] Team Providers + +------+ + | Care Insecticide Mixer Name | Role | Phone | [...] | | | [facility] | [facility] | | | | | Hospital Admitting | [place], [place] | | | | | Desk Located on the | [address] | | | | | 9th floor | [phone] | | | | | [place], [place] | | | | | | [address] | | | +--------+---------+ + + + [...] be differen t from the original. [facility]ly [facility] Discharge Summary Discharging Provider: VIRGIL [...] Your Medications These medications were sent to [id number] [place] [address] [place] [address] Hours: 9AM-7PM MON - FRI / 9AM-6PM [...] Care Provider, please call and ask the soldering machine operator helper to page the attending physician, Vic Petty MD, wh o was caring for you at discharge. If that physician is not available, ask the soldering machine operator helper to page the physician hotel controller for the Medical Teaching Service. Call us [...] that I, or Nurse Practitioner or Physician Nursery Hand working with me, had a face to face encounter with this patient on 06/30/2017 On behalf of Attending Physician: Vic Petty MD I am ordering and certify that the following services are medically necessary home health s [facility] Home Health Physical Therapy Evaluate and Treat I certify that the patient is homebound based on the following clinical findings Post-hospi tono weakness, decreased strength and endurance, and tires easily with minimal exertion Follow Up: Schedule the following appointment(s) when you get home DARYL MATHEWS MD . Specialty: Internal Medicine Contact information [facility] [address] [place] [address] [address] [facility] [phone] Discharge Physical Exam: Last 24 hour min/max [...] (HCC) 12) Acute respiratory failure with hypoxia ([facility]) Please refer to the resident discharge summary for additional details. Vic Petty MD, PhD Clinical Hospitalist and Medicine Teaching Services [facility] Pager [phone] I have spent 35 minutes with the [...] might be different from bella landin. 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 STUDENT PROGRESS NOTE FOR EDUCATIONAL PURPOSES ONLY [...] Q2H PRN ipratropium-albuterol 3 mL Q6H PRN qubanijg-shubpql-eyjgvctc-zinc QID PRN oxyCODONE (immediate release) 2.5-5 mg [...] PIV Code status: FULL SHAHEEN Oconnell-S [facility] Physician Nursery Hand Program 06/29/17 Kang Zhang MD - 06/29/2017 1:28 PM PSTGeneral Medicine Attending Progress Note Author: Vic Petty MD, PhD Hospital Day # 3 PCP: aDryl Mathews MD I personally evaluated the patient, [...] Clinical Hospitalist and Medicine Teaching Services [facility] Pager [phone] I have spent 26 minutes with the [...] interval not displayed. Micro: BLOOD CULTURE WORKUP [[id number]] (Abnormal) KP LAB Collected: 06/26/17 0939 Lab [...] List: Active Hospital Problems 1) *Septic shock ([facility]) 2) Choledocholithiasis 3) Acute cholangitis 4) Klebsiella sepsis ([facility]) 5) Aspiration pneumonitis ([facility]) 6) S/P ERCP 7) COPD (chronic obstructive pulmonary disease) ([facility]) 8) Essential hypertension Resolved Hospital Problems 9) Septic shock ([facility]) 10) Non-ST elevation myocardial infarction (NSTEMI), type 2 ([facility]) 11) Acute respiratory failure with hypoxia ([facility]) Assessment: William Burns is a [...] Thromboembolic ppx: enoxaparin Head of bed: ad mroe Ulcer ppx: PPI Glucose control: ni Mobility: PT/OT Disposition: likely home tomorrow Code status: FULL Surrogate Decision Maker Primary Surrogate Decision Maker Sharon Rodriguez Daughter [phone] Dimas Xavier MD Internal Medicine, PGY-3 #[id number] Louis Hernandez MD - 06/28/2017 2:26 PM [...] management as outpatient (pt prefers facility near [place]) --> if develops post ERCP complications or [...] Horne - 06/28/2017 7:47 AM PST 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 Spoke with Service Operations Manager at [facility] @1330, N o sensitivity results yet from [...] PIV Code status: FULL SHONDA OconnellS [facility] Physician Nursery Hand Program 06/28/17 Alisha Rai M D - [...] 86 87 78 HCO3 22 24 23 NFYON8QSN 24 25 24 B2ABCKKE 96.4 97.0 96.8 FIO2 0.80 0.25 0.21 [...] [facility]ARD [facility] [address] [place] [address] Camilo Amaya MD - 11/2017 6:00 AM [...] 6.5 mL/Kg (459.6 mL) RR: 22 bpm [place] BW: 70.7 kg FiO2 21 fraction of [...] 87 78 HCO3 -- 22 24 23 DVB9TQY7 -- 108* 348 371 VBGPH 7.27* -- [...] Primary Surrogate Decision Maker Sharon Rodriguez Daughter [phone] This patient was staffed with Dr. Maynard, [...] duct clearance Lyla Maldonado MD Gastroenterology Pager [phone] - Virginia Cerna MD - 06/26/2017 4:38 PM PSTFormatting of this note might be different from the origi nal. PRE PROCEDURE NOTE: MR# [id number] Subjective: William Burns is a 82 y.o. [...] 4 hours. Concern for choledocholithiasis. Transferred t [facility] this morning. Has history of COPD [...] results for input(s): PH, PCO2, PO2, HCO3, EJGGO7UFC, Z0UVXIIT, Z4RXQCHTQ, FIO2 in the l ast 72 hours. [...] [facility] [address] [place] [address] documented in this enco unter Plan of [...] | + +--------+ + + + | WL-ZT-CEO-HB,POC RT | Urgent | 06/26/2017 | | [...] + + + | ECG | Short KS interval | | [facility] | | [...] OF | [address] | [place], [place] | | | CARDIOLOGY | [address] | [address] | | + + + + + [...] | + + + + + | [facility] | [address] | [place] [address] | | | SERVICES, CORE | RICHARD [...] | + + + + + | [facility] | [address] | [place] [address] | | | SERVICES, CORE | [address] [...] | | | LABORATORY | | | [place] | | | SERVICES, | | | [...] | + + + + + | [facility] | [address] | [place] [address] | | | SERVICES, CORE | RICHARD [...] LABORATORY | [address] | [place] [address] | | | SERVICES, CORE | PARK [...] Note | + + | Service Account, 3225 films In Interface - 06/28/2017 5:02 PM PST [...] MARQU[facility] | [address] | [place], [place] | | | DILAN TURNER OF CARE | [facility] | [address] | | | TESTS | | | [...] + + + + + | [facility] | [address] | [place] [address] | | | SERVICES, CORE | PARK [...] + | [facility] | [address] | [place] [address] | | | SERVICES, CORE | RICHARD [...] | | | LABORATORY | | | [place] | | | SERVICES, | | | [...] [facility]OSPITAL [facility]ENTER LAB[facility]ORY | [address] | [place] [address] | | | SERVICES, CORE | PARK [...] LABORATORY | [address] | [place] [address] | | | SERVICES, CORE | RICHARD [...] | | POC | | | DILAN UTRNER | | | | | | OF [...] BETTINA TOBAR | [address] | [place], [place] | | | DILAN TURNER OF CARE | [address] | [address] | | | TESTS | | | [...] | + + | Service Account, Shana Gojee In Interface - 06/28/2017 10:17 AM PST [...] + + | Performing | Address | City/State/[facility] | Phone Number | | Organization | [...] TOBAR | [address] | [place], [place] | | | DILAN TRUNER OF CARE | [address] | [address] | | | TESTS | | | [...] AMADOU | [address] | [place], [place] | | | DILAN T[place]NER OF [place] | [address] | [address] | | | TESTS | | | [...] | | | LABORATORY | | | [place] | | | SERVICES, | | | [...] | + + + + + | [facility] | [address] | [place] [address] | | | SERVICES, CORE | RICHARD [...] | + + + + + | [facility] | [address] | [place] [address] | | | SERVICES, CORE | RICHARD [...] | + + + + + | [facility] | [address] | [place] [address] | | | SERVICES, CORE | [address] [...] LABORATORY | [address] | [place] [address] | | | SARA, YOKASTA | [address]ARK [...] | [facility] | [address] | [place] [address] | | | SERVICES, CORE | RICHARD [...] + + + | BETTINA TOBAR | [address] | [place], [place] | | | [facility] | [address] | [address] | | | TESTS | | | [...] LABORATORY | [address] | [place] [address] | | | SERVICES, CORE | PARK [...] [facility] | | | GRAVITY | Specific Taylor | | LABORATORY | | | | [...] | [facility] | [address] | [place] [address] | | | YOKASTA RUIZ | [address] | | | + + + + + ERCP (06/27/2017 6:38 AM PST) + + | Specimen | + + | | + + + + + | Narrative | Performed At | + + + | MRN: | [facility] | | [id number] Date: 06/27/2017Patient Name: William Nair #: | ENDOSCOPY | | [id number] of : 5CSN: [id number] Type: | | | InpatientRoom: SORProcedure: ERCPIndications: | | | For therapy of ascending cholangitis; 82 yo M with | | | sepsis, elevated LFTs and US showing mary dil and 1.3 cm | | | CBDProviders: BRINTHA | | | Thompson MALDONADO MD (Doctor), JORDY SOLANO, | | | RN (Nurse), ESTELA DAMIAN RN (Design Tech)Referring MD: | | | Requesting Provider: Medicines: [...] The | | | Olympus TJF-Q180V Duodenoscope #[id number] was | | | introduced through the [...] with acute | | | cholangitis. The cane loader film was normal. The esophagus was | [...] Initiated On: | | | 06/27/2017 6:38 [facility] Letter to: DARYL MATHEWS MD | | [...] + | MRN: | [facility] | | [id number] Date: 06/27/2017Patient Name: William Nair #: | ENDOSCOPY | | [id number] of : 1935SN: [id number] Type: | | | InpatientRoom: SORProcedure: ERCPIndications: | | | For therapy of ascending cholangitis; 82 yo M with | | | sepsis, elevated LFTs and US showing mary dil and 1.3 cm | | | CBDProviders: BRINTHA | | | Thompson MALDONADO MD (Doctor), JORDY SOLANO, | | | RN (Nurse), ESTELA DAMIAN RN (Design Tech)Referring MD: | | | Requesting Provider: Medicines: [...] The | | | Olympus TJF-Q180V Duodenoscope #[id number] was | | | introduced through the [...] with acute | | | cholangitis. The cane loader film was normal. The esophagus was | [...] Initiated On: 06/27/2017 | | | 6:38 [facility] Letter to: DARYL MATHEWS MD | | [...] [facility]OSPITAL [facility]ENTER LAB[facility] | [address] | [place] [address] | | | SERVICES, CORE | [address] | | | + + + + + MAGNESIUM, PLASMA (06/27/2017 12:43 AM PST) + +-------+ + + + | Component | Value | Ref Range | Performed | Pathologist | | | | | At | Signature | + +-------+ + + + | MAGNESIUM,P | 2.3 | 1.6 - 2.6 mg/dL | [facility] | | | LASMA | | | [...] LABORATORY | [address] | [place] [address] | | | SARA, YOKASTA | RICHARD [...] | + + + + + | [facility] | [address] | [place] [address] | | | SERVICES, YOKASTA | RICHARD [...] | | | LABORATORY | | | [place] | | | SERVICES, | | | [...] | + + + + + | [facility] | [address] | [place] [address] | | | SERVICES, YOKASTA | RICHARD [...] + + | ECG | Borderline prolonged KS | | [facility] | | | [...] DEPT | | | IMPRESSION | by: WIDNY ROWELL | | OF | | | [...] OF | [address] | [place], [place] | | | CARDIOLOGY | [address] | [address] | | + + + + + [...] Note | + --------+ | Service Account, RadiOatmeal Res In Interface - 06/28/2017 9:20 AM [...] [facility]OS[facility]ITAL [facility] | [address] | [place] [address] | | | SERVICES, CORE | RICHARD [...] TO[facility] | [address] | [place], [place] | | | DILAN TURNER OF CARE | [address] | [address] | | | TESTS | | | [...] Note | + + | Service Account, 3225 films In Interface - 06/27/2017 9:07 AM PST [...] + + + + | [facility] | [address] | [place], [place] | | | DILAN TURNER OF [facility] | [address] | [address] | | | TESTS | | | [...] | [facility] OF | [address] | [place], [place] | | | CARDIOLOGY | [address] | [address] | | + + + + + [...] correct patient, procedure, | | | equipment, support services coordinator and site/side marked as required. | [...] | | | | | | Pathology ResidentEhrenberg | | | | | | Louis [...] number | | | | | | [id number]. Bile duct, | | | | | [...] | + + + + + | [facility] | [address] | [place] [address] | | | PATHOLOGY | [address] [...] correct patient, | | | procedure, equipment, support services coordinator and site/side marked as required. | [...] modified Seldinger technique (a | | | meflmicu-anmm-qri-lvbfsl-ykys-xrnl-cbwshty-npq-eyvfonwb) was used for | | | vessel [...] LABORATORY | [address] | [place] [address] | | | YOKASTA RUIZ | RICHARD [...] | + + + + + | [facility] | [address] | [place] [address] | | | SERVICES, CORE | RICHARD [...] | + + + + + | [facility] | [address] | [place] [address] | | | SERVICES, CORE | RICHARD [...] LABORATORY | [address] | [place] [address] | | | SERVICES, YOKASTA | [address] [...] | | | LABORATORY | | | [place] | | | SERVICES, | | | [...] | [facility] | [address] | [place] [address] | | | SERVICES, CORE | [address] [...] DEPT OF | [address] | [place], [place] | | | CARDIOLOGY | [address] | [address] | | + + + + + [...] LABORATORY | [address] | [place] [address] | | | SERVICES, CORE | [address] [...] | + + + + + | [facility] | [address] | [place] [address] | | | SERVICES, CORE | RICHARD [...] | + + + + + | [facility] | [address] | [place] [address] | | | SERVICES, CORE | [address]ICHARD [...] | + + + + + | [facility] | [address] | [place] [address] | | | SERVICES, CORE | RICHARD [...] Note | + ----+ | Service Account, 3225 films In Interface - 06/26/2017 12:57 PM PST [...] Note | + + | Service Account, 3225 films In Interface - 06/26/2017 12:55 PM PST [...] LABORATORY | [address] | [place] [address] | | | SERVICES, | [address] [...] LABORATORY | [address] | [place] [address] | | | SERVICES, | [address] [...] | + + + + + | [facility] | [address] | [place] [address] | | | SERVICES, | [address] [...] + + + | ECG | Prolonged KS interval | | [facility] | | [...] OF | [address] | [place], [place] | | | CARDIOLOGY | [address] | [address] | | + + + + + [...] | | Growth in Anaerobic bottle | [place] | + + + + + + + + | Performing | Address | City/State/Zipcode | Phone Number | | Organization | | | | + + + + + | [facility] | [address] | [place] [address] | | | [place] | | | [...] + | [facility] | [address] | [place] [address] | | | [place] | | | [...] + + | [facility] | [address] | [place] [address] | | | YOKASTA RUIZ | [address] [...] | + + + + + | [facility] | [address] | [place] [address] | | | SERVICES, CORE | RICHARD [...] HOSPITAL CENTER LAB[facility]ATORY | [address] | [place] [address] | | | SERVICES, CORE | RICHARD [...] | [facility] | [address] | [place] [address] | | | SERVICES, CORE | [address] [...] HOSPITAL CENTER [facility] | [address] | [place] [address] | | | SERVICES, CORE | [address] | | | + + + + + TROPONIN I, PLASMA (06/26/2017 9:30 AM PST) + +-------+ + + + | Component | Value | Ref Range | Performed | Pathologist | | | | | At | Signature | + +-------+ + + + | TROPONIN I | 0.33 | <0.80 ng/mL | [facility] | | | | | | LABORATORY [...] | + + + + + | [facility] | [address] | [place] [address] | | | SERVICES, CORE | RICHARD [...] [facility] LAB[facility]ATORY | [address] | [place] [address] | | | SERVICES, CORE | [address] [...] | | | LABORATORY | | | [place] | | | SERVICES, | | | [...] + | [facility] | [address] | [place] [address] | | | SERVICES, CORE | [address] [...] | + + + + + | [facility] | [address] | [place] [address] | | | SERVICES, CORE | [address] | | | + + + + + ES-ZH-NDT-HB,POC RT (06/26/2017 8:55 AM PST) + + [...] [facility] | [address] | [place], [place] | | | DILAN TURNER OF CARE | [address] | [address] | | | TESTS | | | [...] | | | | | NEEDED, Starting [facility] 06/28/17 at | | | | [...]
--- OUTSIDE RECORDS SUMMARY | ~2019-11-19 | XMS | Encounter Summary ---
Demographics + + + | Address | [address] | | | [place] [address] | + + + | Home Phone [...] Team Providers + +------+ + | Care Market Reporter Name | Role | Phone | + [...] | | 2018 | | Arrhythmia at [facility] | MD Herson [address] [facility] | | | | | [address] | [address] | | | | | Mailcode: CH7A | [place], [place] | | | | | [facility] | [address] | | | | | and Healing, | [phone] | | | | | [place] [address] [facility] | | | | | | Floor [place], [place] | | | | | | [address] | | | | | | [phone] | | | +--------+ + + + [...]
--- OUTSIDE RECORDS SUMMARY | ~2019-11-19 | XMS | Encounter Summary ---
Demographics + + + | Address | [address] | | | [place] [address] | + + + | Home Phone [...] Team Providers + +------+ + | Care Bi Report Developer Name | Role | Phone | + [...] Ashraf | | | | | | [address] | | | | | | [phone] | | | +--------+ + + + [...]
--- OUTSIDE RECORDS SUMMARY | ~2019-11-19 | XMS | Encounter Summary ---
Demographics + + + | Address | [address] | | | [place] [address] | + + + | Home Phone [...] Team Providers + +------+ + | Care Marketing Sales Manager Name | Role | Phone [...] | | | | | Carolina Este[address] [place], | [place], [place] | | | | | [place] [address] | [address] | | | | | [phone] | [phone] | | | | | | | [...] PT other exercises he can practice, given wpl-mejyga-erdwjys status # Insomnia, sleep-onset - Sleep hygiene: [...] foll owing additions/clarifications/exceptions: none Crystal Evans MD [facility] Division of Internal Medicine and Geriatrics documented in this encounter Plan of Treatment Not on filedocumented as of this encounter Visit Diagnoses Not on filedocumented in this encounter
--- OUTSIDE RECORDS SUMMARY | ~2019-11-19 | XMS | Encounter Summary ---
Demographics + + + | Address | [address] | | | [place] [address] | + + + | Home Phone [...] Providers + +------+ + | Care Clinical Statistics Manager Name | Role | Phone | + +------+ + | Herlinda Maldonado | PCP | | + +------+ + Encounter Details +--------+ + + + + | Date | Type | Department | Care Team | Description | +--------+ + + + + | 06/26/ | Document-Sc | Health Information | Other, Faculty | | | 2018 | anned | Services [address] | [phone] | | | | | [address] | | | | | | Mailcode: OP17A | | | | | | [facility] | | | | | | [place], [place] | | | | | | [address] | | | | | | [phone] | | | +--------+ + + + [...]
--- OUTSIDE RECORDS SUMMARY | ~2019-11-19 | XMS | Encounter Summary ---
Demographics + + + | Address | [address] | | | [place] [address] | + + + | Home Phone [...] Team Providers + +------+ + | Care Milk Wagon Driver Name | Role | Phone | [...] | | | | | | [facility] | | | | | | Hospital Admitting | | | | | | Desk Located on the | | | | | | 9th floor | | | | | | [place], [place] | | | | | | [address] | | | +--------+ + + + [...]
--- OUTSIDE RECORDS SUMMARY | ~2019-11-19 | XMS | Encounter Summary ---
Demographics + + + | Address | [address] | | | [place] [address] | + + + | Home Phone [...] Team Providers + +------+ + | Care Medical Billing Instructor Name | Role | Phone | [...] Order | [address] | [address] [facility], | | | | | [address] | [place] [address] | | | | | [address], | [phone] | | | | | 4th floor [place], | | | | | | [place] [address] | | | | | | [phone] | | | +--------+ + + + [...] + | MRN: | [facility] | | [id number] Date: 06/27/2017Patient Name: William Nair #: | ENDOSCOPY | | [id number] of : 1935SN: [id number] Type: | | | InpatientRoom: SORProcedure: ERCPIndications: | | | For therapy of ascending cholangitis; 82 yo M with | | | sepsis, elevated LFTs and US showing mary dil and 1.3 cm | | | CBDProviders: BRVALENTINA | | | Thompson MALDONADO MD (Doctor), JORDY SOLANO, | | | RN (Nurse), ESTELA DAMIAN, SARI (Human Resources Office Assistant)Referring MD: | | | Requesting Provider: Medicines: [...] The | | | Olympus TJF-Q180V Duodenoscope #[id number] was | | | introduced through the [...] with acute | | | cholangitis. The surgical resident film was normal. The esophagus was | [...] Initiated On: | | | 06/27/2017 6:38 [facility] Letter to: LANA MATHEWS MD | | [...]
--- OUTSIDE RECORDS SUMMARY | ~2019-11-19 | XMS | Encounter Summary ---
Demographics + + + | Address | [address] | | | [place] [address] | + + + | Home Phone [...] Team Providers + +------+ + | Care After School Caregiver Name | Role | Phone | [...] | | | | | | [facility] | | | | | | Hospital Admitting | | | | | | Desk Located on the | | | | | | 9th floor | | | | | | [place], [place] | | | | | | [address] | | | +--------+ + + + [...]
--- OUTSIDE RECORDS SUMMARY | ~2019-11-19 | XMS | Encounter Summary ---
Demographics + + + | Address | [address] | | | [place] [address] | + + + | Home Phone [...] Providers + +------+ + | Care Manager Code Name | Role | Phone | + [...] | Transcriptions | + + | Interface, Rack Carrier In - 11/26/2005 3:10 AM PDT | | [address] | | [place], [place] [address] | | [facility] HospitalOPERATION RECORDMed Rec No.: | | [id number] Date: 07/14/2002Name: Carlos Burns SURGEON: | | Fozia Crawford M.D., Ph.D.GYROSCOPIC INSTRUMENT TESTER: Med | | Jerrell GuPREOPERATIVE DIAGNOSIS:Rhegmatogenous retinal [...] | | Jun Crawford M.D., Ph.D.JS:x54D: 07/14/2002T: 07/16/[id number] | |attention was directed towards the right [...] | |JS:x54 | | | | | |[id number] | + + documented in this encounter Visit Diagnoses Not on filedocumented in this encounter"
--- OUTSIDE RECORDS SUMMARY | ~2019-11-19 | XMS | Encounter Summary ---
Demographics + + + | Address | [address] | | | [place] [address] | + + + | Home Phone [...] Team Providers + +------+ + | Care Thread Winder Name | Role | Phone | + [...] | | [address] | [place], [place] | | | | | [address], | [address] | | | | | 4th floor [place], | [phone] | | | | | [place] [address] | | | | | | [phone] | | | +--------+ + + + [...]
--- OUTSIDE RECORDS SUMMARY | ~2019-11-19 | XMS | Encounter Summary ---
Demographics + + + | Address | [address] | | | [place] [address] | + + + | Home Phone [...] +------+ + | [employer]ing Machine Setter Name | Role | Phone [...] | Procedural Unit at | MD Rashida [address] | ([facility] f/u) | | | | Mikayla Borges [address] | | | | | [address] | [place], [place] | | | | | [place], | [address] | | | | | [address] floor [place], | [phone] | | | | | [place] [address] | | | | | | [phone] | | | +--------+ + + + [...]
--- OUTSIDE RECORDS SUMMARY | ~2019-11-19 | XMS | Encounter Summary ---
Demographics + + + | Address | [address] | | | [place] [address] | + + + | Home Phone [...] Team Providers + +------+ + | Care Urban Anthropologist Name | Role | Phone | + [...] as of this encounter Progress Notes Interface, Retail Banker In - 11/26/2005 3:10 AM PDT ULTRASOUND [...] and Waylon Simeon, Ophthalmic Echographer PR / [id number] / [id number] / [id number] / Tdocumented in this encounter Plan of [...] | Transcriptions | + + | Interface, Retail Banker In - 11/26/2005 3:10 AM PDT | [...] andWaylon Simeon, Ophthalmic | | EchographerME / [id number] / [id number] / [id number] / T: 07/17/2002 | |HISTORY: This gentleman [...] |Waylon Simeon, Ophthalmic Echographer | | | |PR / HS | |[id number] / [id number] / [id number] / | | | | | + + documented in this encounter Visit Diagnoses Not on filedocumented in this encounter"
--- OUTSIDE RECORDS SUMMARY | ~2019-11-19 | XMS | Encounter Summary ---
Demographics + + + | Address | [address] | | | [place] [address] | + + + | Home Phone | | + + + | Preferred Language | Unknown | + + + | Marital Status | | + + + | Sikh Affiliation | Unknown | + + + | Race | Unknown | + + + | Ethnic Group | Unknown | + + + Author + + + | Author | [facility] | | | and [place] | + + + | Organization | [facility] | | | [...] Providers + +------+ + | Care Retail Account Executive Name | Role | Phone | [...] | | | | | | | [place] ERCP DX | | | | | | | COLLECTION | | | | | | | SPECIMEN | | | | | | | BRUSHING/WAS | | | | | | | JOSE [place] | | | | | | | ERCP | | | | | | | BILIARY/PANC | | | | | | | DUCT STENT | | | | | | | EXCHANGE | | | | | | | W/DIL&WIRE | | | | | | | [place] | | | | | | | [...] | | | | | [address] | [address] [place], [place] | | | | | [place], [place] | [address] | | | | | [address] | [phone] | | | | | [phone] | | | +--------+ + + + [...] [address] | | tomil | [id number] catheter system; | Precious Remy RN | [...] EVALUATION William Burns 82 y.o. male 1935 [id number] Procedure(s) ERCP (N/A Mouth) Cooperates? Yes Mental [...] signed by Tono Dominguez MD 08/14/2017 18:40 [facility] nesthesia Procedure Notes - Tono [...] and placement confirmed. Electronically Signed by: Tono Domingeuz MD ESig date/time : 08/14/2017 13:32 nesthesia Prepro cedure Evaluation - Tono Dominguez MD - 08/13/2017 2:34 PM PDT ANESTHESIA PREANESTHESIA EVALUATION William Burns 82 y.o. male 1935 [id number] Procedure(s): ERCP (N/A Mouth) Review of Systems [...] lateral chest rise | |Performing provider: TONO DOMINGUZE | | | |Comments: Smooth IV induction. [...]
--- OUTSIDE RECORDS SUMMARY | ~2019-11-19 | XMS | Encounter Summary ---
Demographics + + + | Address | [address] | | | [place] [address] | + + + | Home Phone [...] Team Providers + +------+ + | Care Pick Up Driver Name | Role | Phone | [...] | Procedural Unit at | MD Rashida [address] | (ERCP f/u) | | | | Mikayla Borges [address] | | | | | [address] | [place], [place] | | | | | [place], | [address] | | | | | 4th floor [place], | [phone] | | | | | [place] [address] | | | | | | [phone] | | | +--------+ + + + [...]
--- OUTSIDE RECORDS SUMMARY | ~2019-11-19 | XMS | Encounter Summary ---
Demographics + + + | Address | [address] | | | [place] [address] | + + + | Home Phone [...] Team Providers + +------+ + | Care Front Desk Administrator Name | Role | Phone | [...] Medication | | 2019 | | at [facility] | [address] | management | | | | [address] | [address] | | | | | Loop Physician's | [place], [place] | | | | | [place], [facility] floor | [address] | | | | | [place], [place] | [phone] | | | | | [address] | | | | | | [phone] | | | +--------+ + + + [...]
--- OUTSIDE RECORDS SUMMARY | ~2019-11-19 | XMS | Encounter Summary ---
Demographics + + + | Address | [address] | | | [place] [address] | + + + | Home Phone [...] Author | [facility] | | | and [place] | + + + | Organization | [facility] | | [...] Team Providers + +------+ + | Care Roller Coaster Designer Name | Role | Phone | + [...] | | | | | | | [place] ERCP DX | | | | | | | COLLECTION | | | | | | | SPECIMEN | | | | | | | BRUSHING/WAS | | | | | | | JOSE [place] | | | | | | | ERCP | | | | | | | BILIARY/PANC | | | | | | | DUCT STENT | | | | | | | EXCHANGE | | | | | | | W/DIL&WIRE | | | | | | | [place] | | | | | | | [...] | | | | | [address] | [address] [place] | | | | | [place], [place] | [place] [address] | | | | | [address] | [phone] | | | | | [phone] | | | +--------+---------+ + + + [...] of ascending cholangitis and sepsis, treated at [facility]. Had ERCP with sphin cterotomy, stone extraction, and stent placement on 06/26/17. He underwent cholecystectomy in [place] and on the IOC there were possible [...] BACK SURGERY 1981 Lower back COLONOSCOPY 09/23/2013 [facility] ENDOSCOPY 08/10/2013 [facility] HIP FRACTURE SURGERY Left 2002 Pinning. Repeat in 2003 INGUINAL HERNIA REPAIR 2007 KNEE SURGERY 1968 KNEE SURGERY Right 1967 Open fracture reduction and internal fixation right knee in 1967 LAMINECTOMY Leg surgery Left 1959 Seven Reconstructive surgeries on his left leg and foot in the with metal remaining . LUMBAR VERTEBRAL FUSION OTHER SURGICAL HISTORY Endobiliary stent placed at [facility] Removal of lesion Right 2009 [...] Class 2 (upper half of tonsil fossa) [place] [employer] of Anesthesia Grade:ASA 2 - A [...] Electronically Signed by: Jamey Penny MD 08/14/2017 [facility] VERIFICATION OF CONSENT (PARQ) The patient was counseled regarding the procedure, its indications, risks, potential compli cations and alternatives. Any questions were answered. Consent was obtained. Jamey Penny MD, 08/14/2017 12:59 [facility] Portions of this chart may have been created with [employer] voice recognition software. Occasi onal wrong-word or [...] INSTRUCTIONS Patient: William Burns : 1935 Acct: [id number] Exam Date: Monday, August 14, 2017 Doctor: [...] 1 day. Avoiding fatty foods such as [place], hamburgers, [place], ham and pork products, will [...] 08/14/2017 | PROVATION | | 12:57 PMMRN: [id number] #: [id number] of : | | | 5Admit Type: AmbulatoryAge: 82Room: [facility] 02Gender: MaleNote | | | Status: FinalizedAttending MD: JAMEY PENNY [facility]: | | | ERCPIndications: Bile duct stone(s), Biliary stent | | | removalProviders: JAMEY PENNY MD, Kiah Orozco, | | | RN, Klaus Loco CMA, Vani Wisdom, | | | Junior Media Buyer, Yinka Dominguez MD | | | (Anesthesia [...] the procedure well.Findings: A | | | halfway house counselor film of the abdomen was obtained. Surgical [...] | | was it seen on the halfway house counselor image. - Several filling defects | | [...] PMScope Out: | | | 1:58:46 PM [facility], [facility], | | | [place] [address] | | | - KUB today to [...] |Scope Out: 1:58:46 PM | | | [facility], [facility], [place], [place] | | | [address] | | + + -+ + +---------+ [...] | | | Anticoagulation Range: | | [facility] | | | | 2.0 - [...] [address] | [place] | [phone] | | [facility] | | [address] | | | - LABORATORY | | [...] 108 | 70 - 109 mg/dL | [facility] | | | | | [facility] | | | | | | MEDICAL | | | | | | CENTER - | | | | | | LABORATORY | | + + + + + + | BUN | 13 | 7 - 18 mg/dL | [facility] | | | | | | [facility] | | | | | | MEDICAL | | | | | | CENTER - | | | | | | LABORATORY | | + + + + + + | Creatinine | 0.85 | 0.60 - 1.30 | [facility] | | | | | mg/dL [...] mL/min/1.73m2 | [facility] | | | [place] | RATE,ESTIMATED | | MEDICAL | | | | mL/min/1.08w3Uvus than | | CENTER - | | [...] [address] | [place] | [phone] | | [facility] | | [address] | | | - LABORATORY | | [...] | | | | g/dL | [facility] | | | | [...] | | | | g/dL | [facility] | | | | [...] + | [address] | [address] | [place] | [phone] | | [facility] | | [address] | | | - LABORATORY | | [...]
[~2019-11-19 19:07] MED LIST changes: +HYDROMORPHONE HC2 MG PO; +LACTULOSE20 GM/30 M PO; +ONDANSETRON ODT4 MG PO
--- OUTSIDE RECORDS SUMMARY | 2019-11-19 19:10 | XMS ---
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 [place] - Has Care Guidelines - PDMP CARE PROVIDERS ROSA ENNIS Physician 05/31/2018-Current PHONE: Unknown Jose F has no Care Guidelines for this patient. Care History Medical/Surgical 08/26/2019 [facility] Left message with [facility] requesting LAMA and ICS be added to patient\T\#39;s care plan. E.D. VISIT COUNT (12 MO.) 9 [facility] TOTAL 9 NOTE: Visits indicate total known visits. 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 - Weakness - Heart failure, unspecified - Unspecified atrial fibrillation 08/12/2019 09:09 [facility] Up [facility] TYPE: Emergency COMPLAINT: - VOMITING DIAGNOSES: - Personal history of nicotine dependence - Nausea with vomiting, unspecified - Unspecified atrial fibrillation - Acute gastritis without bleeding - Other 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 (current) 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 - Chronic obstructive pulmonary disease, unspecified - Heart failure, unspecified 07/30/2019 01:15 [facility] Up [facility] TYPE: Emergency [...] slipping, tripping and stumbling with - 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 - Laceration without foreign body of right forearm, initial enc 02/08/2019 20:35 [facility] Up [facility] TYPE: Emergency COMPLAINT: - RAPID HEART RATE DIAGNOSES: - Other 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 (current) 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 - Constipation, unspecified - [...] sub - Essential (primary) hypertension - 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 - Unspecified atrial fibrillation - Chronic obstructive pulmonary disease, unspecified - Heart failure, unspecified INPATIENT VISIT TRACKING (12 MO.) 08/03/2019 16:31 [facility] Up [facility] TYPE: Medical Surgical COMPLAINT: - DECONDITIONING DIAGNOSES: - Allergy status to other drugs, medicaments and biological sub - Chronic obstructive pulmonary disease, unspecified - Wedge compression fracture of first lumbar vertebra, subseque - Wedge compression fracture of first lumbar vertebra, subseque - Hyperlipidemia, unspecified - Retention of urine, unspecified - Other 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 (current) 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 - Permanent atrial fibrillation - 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 (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 - Permanent atrial fibrillation - Respiratory failure, unspecified with hypoxia - Unsteadiness on feet - 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 (current) use of aspirin - Gastro-esophageal reflux disease without esophagitis - Allergy status to other drugs, medicaments and biological sub - 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 (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 analgesic - 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 (current) use of aspirin - Gastro-esophageal reflux disease without esophagitis - Chronic diastolic (congestive) heart failure - Chronic diastolic (congestive) heart failure - Respiratory failure, unspecified with hypoxia - Hyperlipidemia, unspecified - 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 - Retention of urine, [...] of first lumbar vertebra, subseque - 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 - Acute respiratory failure with hypoxia - Pneumonia due to Streptococcus pneumoniae - correction (current) use of aspirin - Allergy status [...] coronary angioplasty implant and graft - 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 (current) use of antithrombotics/antiplatelets - 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
--- NOTE | 2019-11-20 13:35 | EKG ---
[facility] [address] [place] [address] Signed Atrial flutter with variable AV block Right bundle branch block Left anterior fascicular block Bifascicular block Inferior infarct , age undetermined Abnormal ECG When compared with ECG of 23-AUG-2019 14:35, Atrial flutter has replaced Atrial fibrillation Vent. rate has increased BY 36 BPM Nonspecific T wave abnormality, worse in Inferior leads Confirmed by ELADIO RUIZ DO ([id number]) on 11/20/2019 1:35:39 PM Electronically Signed By: ELADIO RUIZ DO 11/20/19 1335 PATIENT NAME: EDSON HURST Electrocardiogram DATE OF : 35 PHYSICIAN: ELADIO RUIZ DO REPORT #: [id number] REPORT IS CONFIDENTIAL AND NOT TO BE RELEASED WITHOUT AUTHORIZATION
== END 2019-11-19 20:48 | disposition home or self-care (01) ==
LOC: ED 19:07
DX: R60.0 Localized edema (principal); J44.9 Chronic obstructive pulmonary disease, unspecified; I48.20 Chronic atrial fibrillation, unspecified; I50.9 Heart failure, unspecified; Z99.81 Dependence on supplemental oxygen; Z87.891 Personal history of nicotine dependence; Z88.8 Allergy status to other drugs, medicaments and biological substances; Z79.899 Other long term (current) 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; Z79.82 Long term (current) use of aspirin
CPT/HCPCS: 71045; 80053; 83880; 85025; 93005; 93010; 99285-25

== ENCOUNTER 2019-11-25 20:37 | Emergency (ER) | payer MEDICARE ==
[~2019-11-25] VITALS: Ht 175.3 cm; Wt 67.2 kg
--- OUTSIDE RECORDS SUMMARY | ~2019-11-25 | XMS | Clinical Summary ---
Demographics + + + | Address | [address] | | | [place] [address] | + + + | Home Phone | | + + + | Preferred Language | Unknown | + + + | Marital Status | | + + + | Jew Affiliation | NON | + + + | Race | White | + + + | Ethnic Group | Not or | + + + Author + + + | Author | [facility] | + + + | Organization | [facility] | + + + | Address | Unknown | + + + | Phone | Unavailable | + + + Support + + +---------+ + | Name | Relationship | Address | Phone | + + +---------+ + | None Per Pt | ECON | Unknown | Unavailable | + + +---------+ + Care Team Providers + +------+ + | Care Field Education Coordinator Name | Role | Phone | + +------+ + | Herlinda Maldonado | PCP | | + +------+ + Source Comments BETTINA is fully live on both [facility] Ambulatory and [facility] InPatient.[facility] Allergies + + + + + + [...] | | | | 88 | | [facility] INPATIENT REV LOC | | | | | | | + +------+--------+ +--------+--------+--------+ | Washer 13mm 6.6mm Lcp | | Left: | [employer] | | | 219.99 | | Orthopedic Stainless Steel | | Hip | | | | / / | | 4.5-7.3mm Screw Nonsterile - | | | | | | | | [id number]: Qty: 2 on | | | | | | | | 06/03/2018 by Working, | | | | | | | | Nguyễn Chance MD at [facility] | | | | | | | | INPATIENT REV LOC | | | | | | | + +------+--------+ +--------+--------+--------+ | Screw Bone 6.5mm 160mm | | Left: | [employer] | | | 208.48 | | Stainless Steel Full Thread | | Hip | | | | 5 / / | | Orthopedic Cannulated | | | | | | | | Nonsterile - | | | | | | | | [id number]: Qty: 1 on | | | | | | | | 06/03/2018 by Working, | | | | | | | | Nguyễn Chance MD at [facility] | | | | | | [...] /[id number] | | Nguyễn Chance MD at [facility] | | | | | | [...] RE HMO | | sent | | [place], | | | | | | | | [place] [address] | | + +--------+ +--------+ + +--------+ + +--------+ +--------+ + + | Guarantor Name | Accoun | Relation to | Date | Phone | Billing Address | | | t Type | Patient | of | | | | | | | | | | + +--------+ +--------+ + + | William Burns | Person | Self | [birth year] | [address] | | | al/Fam | | 1935 | [phone] | [place] [address] | | | michelle | | | [...]
--- OUTSIDE RECORDS SUMMARY | ~2019-11-25 | XMS | Encounter Summary ---
Demographics + + + | Address | [address] | | | [place] [address] | + + + | Home Phone | | + + + | Preferred Language | Unknown | + + + | Marital Status | | + + + | Religion Affiliation | NON | + + + | Race | White | + + + | Ethnic Group | Not or | + + + Author + + + | Organization | Unknown | + + + | Address | Unknown | + + + | Phone | Unavailable | + + + Support + + +---------+ + | Name | Relationship | Address | Phone | + + +---------+ + | None Per Pt | ECON | Unknown | Unavailable | + + +---------+ + Care Team Providers + +------+ + | Care Brake Repairer Hydraulic Name | Role | Phone | + +------+ + PCP | Unavailable | + +------+ + Encounter Details +--------+ + + + + | Date | Type | Department | Care Team | Description | +--------+ + + + + | 07/14/ | Procedure - | | Record, Operation | Operative Report | | 2002 | | | | | | | Transcribed | | | | +--------+ + + [...] recent travel history available. | + + documented as of this encounter Plan of Treatment Not on filedocumented as of this encounter Procedures + +--------+ + + + | Procedure Name | Priori | Date/Time | Associated Diagnosis | Comments | | | ty | | | | + +--------+ + + + | OPERATION RECORD | | 07/14/2002 | | Results for this | | | | | | procedure are in the | | | | | | results section. 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 Pars plana vitrectomy with | | membrane segmentation, right eye.2. Panretinal endolaser, right eye.3. Gas fluid | | exchange, right eye.4. Silicone oil gas exchange, right | | eye.SPECIMEN:None.COMPLICATIONS:None.ESTIMATED BLOOD LOSS:Less than 1 cc.INDICATIONS:The | | patient is a gentleman who is three weeks status post macular holesurgery in his | | right eye. He noted improving vision. Despite hisimprovement in vision, it was | | noted that he had two inferior retinal tearsthat resulted in an inferior retinal | | detachment. It was decided to repairthis emergently, as his macula was still | | attached.PROCEDURE:After obtaining informed consent, the patient was taken to the | | operatingroom where retrobulbar anesthesia was obtained by delivering 4 cc of | | a50:50 mixture of lidocaine and Marcaine into the retrobulbar space via anAtkinson | | needle. After establishing adequate anesthesia and akinesia,attention was directed | | towards the right eye, into which a wire lidspeculum was placed. Slit-like | | conjunctival peritomies were performed inthe supratemporal, supranasal, and | | infratemporal quadrants, so as to exposebare sclera 4 mm posterior to the | | limbus.Hemostasis was achieved with eraser-type cautery. A 6-0 Vicryl sutures waspassed | | mattress fashion in the infratemporal quadrant, 4 mm posterior tothe limbus. An MVR | | blade was used to create a sclerotomy at the site and a4.0-mm posterior infusion | | cannula was placed inside the eye and sewn intoplace using the aforementioned | | sutures. Direct transpupillaryvisualization of the posterior infusion cannula | | tip disclosed that it wasin the posterior cavity, so posterior infusion was turned | | on. Similarsclerotomies were made in the supratemporal and supranasal quadrants.A | | light pipe and microvitrector were placed inside the eye and were used tocarry out a | | thorough pars plana vitrectomy. There was vitreous base thatremained that had | | floated into the center of the eye. This was allremoved. Pigmented cells were | | noted to exist within this material. Thevitreous base was trimmed, as aided by | | external scleral depression, 360degrees around the eye.At least four breaks were noted | | in the eye. Two of these were relativelyposterior and one of them appeared to be a | | flap with proliferative materialadherent to the flap. Using the Fernandez forceps, this | | material was removedfrom the surface of the retina without increasing the size of the | | hole orcreating new retinal breaks. After the release of the traction on thishole | | and trimming the vitreous around the other inferior breaks, a gasfluid exchange was | | performed, which completely flattened the retina.Using the IRIS endolaser delivery | | system, 841 laser spots were applied inthe inferior retina and around each of the | | breaks. This was aided byexternal scleral depression. After the removal of the | | vitreous, theremoval of the membranes, the gas fluid exchange, and the placement of | | thelaser, the air inside the eye was exchanged for 5000-centistoke siliconeoil.The | | sclerotomies were sewn closed and were noted to be oil tight uponclosure. The eye | | was copiously irrigated with balanced saline solution(BSS) and the conjunctiva was | | sewn closed with 6-0 plain gut suture. Theeye received subconjunctival injections of | | Zinacef and Decadron. Maxitrolwas placed in the eye and the eye was patched. The | | patient was taken fromthe operating room to the recovery room in stable condition.J. | | Jun Crawford M.D., Ph.D.JS:x54D: 07/14/2002T: 07/16/[id number] | |attention was directed towards the right eye, into which a wire lid | |speculum was placed. Slit-like conjunctival peritomies were performed in | |the supratemporal, supranasal, and infratemporal quadrants, so as to expose | |bare sclera 4 mm posterior to the limbus. | | | | | |Hemostasis was achieved with eraser-type cautery. A 6-0 Vicryl sutures was | |passed mattress fashion in the infratemporal quadrant, 4 mm posterior to | |the limbus. An MVR blade was used to create a sclerotomy at the site and a | |4.0-mm posterior infusion cannula was placed inside the eye and sewn into | |place using the aforementioned sutures. Direct transpupillary | |visualization of the posterior infusion cannula tip disclosed that it was | |in the posterior cavity, so posterior infusion was turned on. Similar | |sclerotomies were made in the supratemporal and supranasal quadrants. | | | |A light pipe and microvitrector were placed inside the eye and were used to | |carry out a thorough pars plana vitrectomy. There was vitreous base that | |remained that had floated into the center of the eye. This was all | |removed. Pigmented cells were noted to exist within this material. The | |vitreous base was trimmed, as aided by external scleral depression, 360 | |degrees around the eye. | | | |At least four breaks were noted in the eye. Two of these were relatively | |posterior and one of them appeared to be a flap with proliferative material | |adherent to the flap. Using the Fernandez forceps, this material was removed | |from the surface of the retina without increasing the size of the hole or | |creating new retinal breaks. After the release of the traction on this | |hole and trimming the vitreous around the other inferior breaks, a gas | |fluid exchange was performed, which completely flattened the retina. | | | |Using the IRIS endolaser delivery system, 841 laser spots were applied in | |the inferior retina and around each of the breaks. This was aided by | |external scleral depression. After the removal of the vitreous, the | |removal of the membranes, the gas fluid exchange, and the placement of the | |laser, the air inside the eye was exchanged for 5000-centistoke silicone | |oil. | | | |The sclerotomies were sewn closed and were noted to be oil tight upon | |closure. The eye was copiously irrigated with balanced saline solution | |(BSS) and the conjunctiva was sewn closed with 6-0 plain gut suture. The | |eye received subconjunctival injections of Zinacef and Decadron. Maxitrol | |was placed in the eye and the eye was patched. The patient was taken from | |the operating room to the recovery room in stable condition. | | | | | | | |Fozia Crawford M.D., Ph.D. | | | |[id number] | | | | | |[id number] | + + documented in this encounter Visit Diagnoses Not on filedocumented in this encounter"
--- OUTSIDE RECORDS SUMMARY | ~2019-11-25 | XMS | Encounter Summary ---
Demographics + + + | Address | [address] | | | [place] [address] | + + + | Home Phone | | + + + | Preferred Language | Unknown | + + + | Marital Status | | + + + | Pentecostal Affiliation | Unknown | + + + | Race | Unknown | + + + | Ethnic Group | Unknown | + + + Author + + + | Author | [facility] | | | and [place] | + + + | Organization | [facility] | | | [...] Team Providers + +------+ + | Care Enzyme Chemist Name | Role | Phone | + [...] | Atrial | Maximilian | [address] | | | | | fibrillation | MD Jon | [place], | | | | | , | [address] | [place] | | | | | unspecified | [place] | [address] | | | | | type (HCC) | [place], [place] | Phone: | | | | | Procedures | [id number] | [phone] | | | | | ECHO | Phone: | Fax: | | | | | Complete | [phone] | [phone] | | | | | | Fax: | | | | | | | [phone] | | +--------+--------+ + + + + [...] | Atrial | Maximilian | [address] | | | | | fibrillation | MD Jon | [place], | | | | | , | [address] | [place] | | | | | unspecified | [place] | [address] | | | | | type (HCC) | [place], [place] | Phone: | | | | | Procedures | [address] | [phone] | | | | | ECHO | Phone: | Fax: | | | | | Complete | [phone] | [phone] | | | | | | Fax: | | | | | | | [phone] | | +--------+--------+ + + + + Encounter Details +--------+ + + + + | Date | Type | Department | Care Team | Description | +--------+ + + + + | 03/26/ | Hospital | [facility] | Maximilian Goddard | Atrial fibrillation, | | 2019 | Encounter | [facility] [address] | MD Jon [address] | unspecified type | | | | [address] [place] | [address] [place] | (HCC) | | | | [place] [address] | [place] [address] | | | | | [phone] | [phone] | | | | | | | [...] | | | | | | n [place] | | | | | + + [...] | | | | | | n [place] | | | | | + + [...] | LILIAN SOTO Room Number Patient Number [id number] Date | | | of Study 03/26/2019 Visit Number [id number] | | | Referring Physician JON GODDARD MD Accession | | | [id number] Rn Admit [facility] Number | | | Date of 1935 Interpreting | | | JON GODDARD MD | | | 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
--- OUTSIDE RECORDS SUMMARY | ~2019-11-25 | XMS | Encounter Summary ---
Demographics + + + | Address | [address] | | | [place] [address] | + + + | Home Phone | | + + + | Preferred Language | Unknown | + + + | Marital Status | | + + + | Rastafari Affiliation | NON | + + + [...] Team Providers + +------+ + | Care Pilot Manager Name | Role | Phone | [...] | +--------+ + + + + | 05/31/ | Hospital | [facility] [address] | Ashwini Ruggiero MD | | | 2019 - | Encounter | [address] | [address] | | | | | [address], | [address] | | | 06/06/ | | [place] [address] | [place], [place] | | | 2018 | | [phone] | [address] | | | | | | [phone] | | | | | | | | | | | | Nguyễn Shepard, | | | | | | [address] | | | | | | [address] | | | | | | [place], [place] | | | | | | [address] | | | | | | [phone] | | | | | | | [...] might be differe nt from the original. [facility] DEPARTMENT OF ORTHOPAEDICS & REHABILITATION INPATIENT HOSPITAL DISCHARGE SUMMARY & INTERDISCIPLINARY INSTRUCTIONS Patient: William Burns CSN: [id number] Admission Date: 05/31/2018 Discharge Date: 06/06/2018 Attending Physician: Nguyễn Shepard MD PCP: SHAHEEN Love Service: [facility] Orthopaedics & Rehabilitation Diagnoses Principal Final Diagnosis: Left anterior column posterior hemitransverse acetabular fracture (involving 2 columns). Additional Diagnoses: COPD (chronic obstructive pulmonary disease) (HCC) Essential hypertension Physical deconditioning Procedures 06/03/2018 Closed [...] sutures or harjit 2-3 weeks post operatively (05/22-06/24) If you have sutures or harjit, do [...] they suspect your wound is infected. Call [facility] Orthopedics first at . Activity NON Weight bearing on left leg. For approximately 4 weeks to be determined at postoperative clinic visit. Condition on Discharge Stable Follow-Up Appointments ORTHOPEDICS OUTPATIENT CLINIC: Future Appointments Provider Department Dept Phone Center 07/02/2018 1:40 PM Nguyễn Chance Working Orthopaedics at [facility] [phone] Orthopedics PCP: As needed for any medical [...] mg by mouth once daily at bedtime. [facility] Orthopaedic Service Pain Policy At the 6-week [...] administration instructions. - Call Orthopedic Clinic at [phone] if any persistent, localized swelling that does [...] and ask for the orthopaedic surgery resident cushion former. Additional Post-Op Instructions / What to Expect [...] a SNF "I certify that post-hospital inpatient care home facility care is medically necessar y on [...] Condition on Discharge: Improved Discharging Patient To: Group Home Facility Date and Time of Discharge Summary Completion: 06/07/2018, 2:45 PM Discharging Provider: ELISE Mckeon Discharging Attending: Nguyễn Shepard MD Thank you for the opportunity to take care of William Burns during this inpatient stay, it has been our pleasure. ELISE Mckeon [facility] Department of Orthopaedics & Rehabilitation [address] [place] [address] Mail Code: OP31 [facility] [address] documented in t his encounter Medications at [...] index is 29 kg/m. I/O Intake/Output 06/04 0701 - / 0700 06/05 07 - 06/06 0700 06/06 07 - / 0700 P.O. 320 700 325 I.V. 30 [...] to have left pelvic fracture, transferred to [facility] Orthopedic Surgery service for surg ical management. [facility] initially consulted for pre-operative evaluation. Nausea/Vomiting Presumptive [...] says he uses sparingly. On arrival to [facility] he was on 4 L NC and [...] Sanchez MD Attending Physician Clinical Hospitalist Services [facility] Pager [phone] Please call or page me with any questions or concerns. Doe Newman MD - 06/06/2018 9:11 AM PST Orthopaedic Surgery Progress Note Patient: /Age: MRN: CSN: Date: Admission Date: Hospital Day: Orthopaedic Attending: William Burns 1935 83 y.o. [id number] 06/06/2018 05/31/2018 6 Nguyễn Shepard MD Diagnosis: [...] to make a follow up appointment in [facility] ximately 1 weeks with ORTHO TRAUMA & [...] index is 27.41 kg/m. I/O Intake/Output 06/03 0700 06/04 0700 06/05 0700 P.O. 1300 320 400 I.V. 1025 [...] to have left pelvic fracture, transferred to [facility] Orthopedic Surgery service for surg ical management. [facility] initially consulted for pre-operative evaluation. Nausea/Vomiting Presumptive [...] says he uses sparingly. On arrival to [facility] he was on 4 L NC and [...] Sanchez MD Attending Physician Clinical Hospitalist Services Count Includes [facility] Pager [phone] Please call or page me with any questions or concerns. Doe Newman MD - 06/05/2018 7:10 AM PST Orthopaedic Surgery Progress Note Patient: /Age: MRN: CSN: Date: Admission Date: Hospital Day: Orthopaedic Attending: William Burns 1935 83 y.o. [id number] 06/05/2018 05/31/2018 5 Nguyễn Shepard MD Diagnosis: [...] to make a follow up appointment in [facility] ximately 1 weeks with ORTHO TRAUMA & FRACTURE, ASAD Conti - (Friess a nd Working) Subjective: Denies any emesis [...] refill < 2 seconds Doe Gongora MD Count Includes [facility] [place] Department of Orthopaedics & Rehabilitation [address] [place] [address] Mail Code: OP31 [facility] [address] Kg Snider MD - 06/04/2018 10:03 AM [...] index is 27.41 kg/m. I/O Intake/Output 06/02 700 - 06/03 0700 06/03 700 - 06/04 0706/04 - 06/05 0700 P.O. 765 1300 I.V. [...] to have left pelvic fracture, transferred to [facility] Orthopedic Surgery service for surg ical management. [facility] initially consulted for pre-operative evaluation. Nausea/Vomiting Emesis [...] says he uses sparingly. On arrival to [facility] he was on 4 L NC and [...] Sanchez MD Attending Physician Clinical Hospitalist Services [facility] Pager [phone] Please call or page me with any questions or concerns. Devendra Scales MD - 06/04/2018 7:48 AM PST Orthopaedic Surgery Progress Note Patient: /Age: MRN: CSN: Date: Admission Date: Hospital Day: Orthopaedic Attending: William James Grant 1935 83 y.o. [id number] 06/04/2018 05/31/2018 4 Nguyễn Shepard MD Diagnosis: [...] to make a follow up appointment in [facility] ximately 1 weeks with ORTHO TRAUMA & [...] refill < 2 seconds Doe Gongora MD [facility] Department of Orthopaedics & Rehabilitation [address] [place] [address] Mail Code: OP31 [facility] [address] evendra Da Silva MD - 06/03/2018 8:32 PM PST [facility] DEPARTMENT OF ORTHOPAEDICS & REHABILITATION POST-OPERATIVE CHECK [...] 2 seco nds Assessment & Plan: William Burns is a 83 y.o.M with the diagnoses/procedures listed above, experiencing a( an) At Expected Level postoperative course. POSTOPERATIVE PLAN: - Please refer to brief operative note for complete details of the post-operative plan. Devendra Da Silva MD Orthopaedic Surgery Resident 06/03/2018, 8:33 PM Count Includes [facility] [place] Department of Orthopaedics & Rehabilitation [address] [facility] Mail Code: OP31 [place] [address] Jade Msesina MD - 06/02/2018 8:36 AM PSTFormatting of this note might be different from the lydia westbrook Orthopaedic Surgery Progress Note Attending Nguyễn Shepard [...] Please call Orthopaedic Trauma and Fracture at [phone] to schedule a followup within 2 weeks from discharge. ALEXA VICKERS MD Pager: [phone] 06/02/2018 oe Gongora MD - 06/01/2018 8:27 AM PST Orthopaedic Surgery Progress Note Patient: /Age: MRN: CSN: Date: Admission Date: Hospital Day: Orthopaedic Attending: William Burns 1935 83 y.o. [id number] 06/01/2018 05/31/2018 1 Nguyễn Shepard MD Diagnosis: 1. Left Acetabulum Fracture 2. Left Inferior Pubic Ramus Fracture Procedure(s) and Date(s): Plan for OR Sunday for perc vs open left acetabular reduction/fixation Assessment & Plan: William Burns is a 83 y.o.M with the diagnoses/procedures listed above. Plan: -OK for diet now, NPO midnight Sunday for OR -OK for VTE ppx, hold VTE ppx Sundaynight for OR -NWB LLE -PT/OT -Pain Control [...] [facility] & FRACTURE, [...] seconds Reflexes: not performed Doe Gongora MD Count Includes [facility] [place] Department of Orthopaedics & Rehabilitation [address] [facility] Mail Code: OP31 Dileep CHAPPELL [id number] documented in this enco unter Plan of [...] | + + + + + | [facility] | [address] | [place] [address] | | | SERVICES, CORE | [address] | | | + [...] | | | LABORATORY | | | PRYDEINIG | | | SERVICES, | | | [...] + + + + + | [facility] | [address] | [place] [address] | | | SERVICES, CORE | RICHARD [...] LABORATORY | [address] | [place] [address] | | | SERVICES, CORE | PARK [...] | | | LABORATORY | | | PRYDEINIG | | | SERVICES, | | | [...] the MDRD equation recommended by the | [facility] | | National Kidney Disease Education Program. [...] | + + + + + | [facility] | [address] [facility] [facility] | [place] [address] | | | SERVICES, [place]AST[place] | [address] | | | + [...] | + + + + + | [facility] | [address] | [place] [address] | | | SERVICES, CORE | RICHARD [...] | + + + + + | [facility] | [address] | [place] [address] | | | SERVICES, CORE | [address] | | | + + + + + X-RAY PORTABLE 2 VIEW ABDOMEN (KUB AND UPRIGHT) (06/04/2018 2:32 PM PST) + + | Specimen | + + | | + + + + + | Narrative | Performed At | + + + | EXAM: [place] 2 VIEW ABDOMEN (KUB AND UPRIGHT) History: [...] Account, Radiant Res In Interface - 06/04/2018 4:24 PM PST EXAM: [place] 2 VIEW | | ABDOMEN (KUB AND [...] | + + + + + | [facility] | [address] | [place] [address] | | | SERVICES, CORE | [address] | | | + [...] | + + + + + | [facility] | [address] | [place] [address] | | | SERVICES, CORE | RICHARD [...] | + + + + + | [facility] | [address] [facility] [facility] [facility] | [place] [address] | | | SERVICES, CORE | RICHARD [...] | | | LABORATORY | | | PRYDEINIG | | | SERVICES, | | | [...] | + + + + + | [facility] | [address] [facility] [facility] [address] | [place] [address] | | | SERVICES, CORE | RICHARD [...] Note | + + | Service Account, [employer] Res In Interface - 06/04/2018 4:42 PM [...] | | + +---------+ + + | [facility] RADIOLOGY | | | | | VOICE RECOGNITION 2 | | | | + +---------+ + + OPERATION RECORD (06/03/2018 4:58 PM PST) + + | Procedure Note | + + | Nguyễn Shepard MD - 06/03/2018 4:58 PM [facility] Date of Service: 06/03/2018 | | Attending Surgeon: Nguyễn Shepard MD Class A Regional Truck Driver(s): Devendra Allen | | MD Avinash. Preoperative [...] He | | was transferred to the [facility]. A sacral bump consisting of 5 squared [...] We | | then proceeded to the [facility] for the start point for the LC2 [...] problem was referred to my care at [facility] by another | | orthopaedic surgeon. The patient is from the [facility] and traveled many miles to | | get to [facility], bypassing several other hospitals due to the [...] 06/03/2018 14:26:09DT: | | 06/03/2018 16:58:33Job #: [id number] | + + MAGNESIUM, PLASMA (06/03/2018 4:37 [...] | + + + + + | [facility] | [address] | [place] [address] | | | SERVICES, CORE | PARK [...] OF | [address] | [place], [place] | | | CARDIOLOGY | [address] | [address] | | + + + + + [...] [facility] | [address] | [place], [place] | | | DILAN TURNER OF CARE | [address] | [address] | | | TESTS | | | [...] [facility] | [address] | [place], [place] | | | DILAN TURNER OF CARE | [address] | [address] | | | TESTS | | | [...] | + + + + + | [facility] | [address] | [place] [address] | | | SERVICES, YOKASTA | [address] | | | + [...] | | | LABORATORY | | | PRYDEINIG | | | SERVICES, | | | [...] | + + + + + | [facility] | [address] | [place] [address] | | | SERVICES, CORE | RICHARD [...] + + + + | [facility] | [address] | [address] | [facility] DEPT [...] | + + + + + | [facility] DEPT OF | [address] | [place], [place] | | | CARDIOLOGY | [address] | [address] | | + + + + + [...] LABORATORY | [address] | [place] [address] | | | SERVICES, CORE | PARK [...] + + + + + | [facility] | [address] | [place] [address] | | | SERVICES, CORE | P[address] [...] | | | LABORATORY | | | PRYDEINIG | | | SERVICES, | | | [...] | + + + + + | [facility] [employer] | [address] | [place] [address] | | | SERVICES, CORE | [address] | | | + [...] LABORATORY | [address] | [place] [address] | | | SERVICES, | [address] [...] | + + + + + | [facility] | [address] | [place] [address] | | | SERVICES, | [address] [...] | + + + + + | [facility] | [address] | [place] [address] | | | SERVICES, CORE | [address] | | | + + + + + X-RAY KNEE 2 VIEWS LEFT (06/01/2018 11:48 AM PST) + + | Specimen | + + | | + + + + + | Narrative | Performed At | + + + | EXAM: KNEE 2 VIEWS LEFT HISTORY: eval traction pin placement | [facility] | | COMPARISON: None. FINDINGS/IMPRESSION: Interval placement [...] LABORATORY | [address] | [place] [address] | | | SERVICES, CORE | PARK [...] | | | LABORATORY | | | PRYDEINIG | | | SERVICES, | | | [...] the MDRD equation recommended by the | [facility] | | National Kidney Disease Education Program. [...] | + + + + + | [facility] | [address] | [place] [address] | | | SERVICES, CORE | RICHARD [...] Note | + + | Service Account, [employer] Res In Interface - 06/01/2018 9:25 AM [...] MD Dictation initiated: Fortino Allen | | MD Adeel 06/01/2018 8:42 AM | |IMPRESSION: | | [...] now presented. | | | |Final signature: Frotino Denis MD 06/01/2018 8:48 AM | |Preliminary: Fortino Denis MD | |Dictation initiated: Fortion Denis MD 06/01/2018 8:42 AM | + [...] | + + + + + | [facility] | [address] | [place] [address] | | | SERVICES, CORE | RICHARD [...] | | | LABORATORY | | | PRYDEINIG | | | SERVICES, | | | [...] | + + + + + | [facility] | [address] | [place] [address] | | | SERVICES, CORE | [address] | | | + + + + + LAB REPORTS (05/30/2018 12:00 AM PST) + + + | Narrative | Performed At | + + + | | | + + + documented in this encounter Visit Diagnoses + + | Diagnosis | + + | History of pelvic fracture - Primary Personal history of traumatic fracture | + + | Hematemesis with nausea | + + | Ileus, postoperative (HCC) Other digestive system complications | + + documented in this encounter [...] | | +---+---+ + +-------+ +--------+---+---+ | acetaminophen (TYLENOL) tablet | Given | 06/01/19 | 650 mg | | | | 325-650 mg 325-650 mg, oral, | | 19 4:38 | | | | | EVERY 4 HOURS NEEDED, Starting | | PM PST | | | | | 05/31/18 at 1313, Until Sat | | | | | | | 06/01/18 at 1647, mild pain, | | | | | | | multimodal pain control | | | | | | + +-------+ +--------+---+---+ +-------+ +--------+---+---+ | Given | 06/01/19 | 650 mg | | | | | 19 12:36 | | | | | | PM PST | | | | +-------+ +--------+---+---+ | Given | 06/01/19 | 650 mg | | | | | 19 4:13 | | | | | | AM [...] | | | | | 2357, Until Sun06/06/18 at 2229, | | | | | | | dyspepsia | | | | | | + +-------+ + +---+---+ +-------+ + +---+---+ | Given | 06/04/19 | 400 mg | | | | | 19 12:31 | elementa | | | | | AM PST | l | | | +-------+ + +---+---+ +---+---+ | | | +---+---+ + +---------+ +-----+---+---+ | ceFAZolin IV 2 gram in dextrose | New Bag | 06/04/19 | 2 g | | | | (RTU) 2 g, intravenous, EVERY 8 | | 19 4:10 | | | | | HOURS, 2 doses, First dose on | | AM PST | | | | | 06/03/18 at 2000, Last dose on | | | | | | | 06/04/18 at 0400 | | | | | | + +---------+ +-----+---+---+ +---------+ +-----+---+---+ | New Bag | 06/03/19 | 2 g | | | | | 19 8:22 | | | | | | PM PST | | | | +---------+ +-----+---+---+ +---+---+ | | | +---+---+ + +-------+ [...] | enoxaparin (LOVENOX) injection | Given | 06/01/19 | 40 mg | | Abdomen | | 40 mg 40 mg, subcutaneous, EVERY | | 19 8:42 | | | | | EVENING, First dose on Fri | | PM PST | | | | | 05/31/18 at 2100, Until | | | | | | | Discontinued | | | | | | + +-------+ +-------+---+---------+ +-------+ +-------+---+---------+ | Given | 05/31/19 | 40 mg | | Abdomen | | | 19 8:14 | | | | | | PM [...] | | | | | modification) on Sun06/04/18 at | | | | | | | 2100, Until Discontinued | | | | | | + +-------+ +-------+---+---------+ +-------+ +-------+---+---------+ | Given | 06/04/19 | 40 mg | | Abdomen | | | 19 8:49 | | | | | | PM PST | | | | +-------+ +-------+---+---------+ +---+---+ | | | +---+---+ + +-------+ +--------+---+---+ | fentaNYL (SUBLIMAZE) injection | Given | 06/03/19 | 50 mcg | | | | 50 mcg 50 mcg, intravenous, | | 19 4:41 | | | | | POSTPROCEDURE PRN, 4 doses, | | PM PST | | | | | Starting 06/03/18 at 1334, | | | | | | | Until Sun06/03/18 at 1641, severe | | | | | | | pain while in Phase I Recovery | | | | | | + +-------+ +--------+---+---+ +-------+ +--------+---+---+ | Given | 06/03/19 | 50 mcg | | | | | 19 4:16 | | | | | | PM PST | | | | +-------+ +--------+---+---+ | Given | 06/03/19 | 50 mcg | | | | | 19 2:47 | | | | | | PM PST | | | | +-------+ +--------+---+---+ +---+---+ | | | +---+---+ + +-------+ +-------+---+---+ | furosemide (LASIX) injection 20 | Given | 06/01/19 | 20 mg | | | | mg 20 mg, intravenous, ONCE, 1 | | 19 5:12 | | | | | dose, 06/01/18 at 1700 | | PM PST | | | | + +-------+ +-------+---+---+ +---+---+ | | | +---+---+ + +-------+ +-------+---+---+ | furosemide (LASIX) tablet 20 mg | Given | 06/04/19 | 20 mg | | | | 20 mg, oral, DAILY, First dose | | 19 8:31 | | | | | on 06/03/18 at 1115, Until | | AM PST | | | | | Discontinued | | | | | | + +-------+ +-------+---+---+ +---+---+ | | | +---+---+ + +-------+ +--------+---+---+ | guaiFENesin LA (MUCINEX) tablet | Given | 06/06/19 | 600 mg | | | | 600 mg 600 mg, oral, TWICE | | 19 9:06 | | | | | DAILY, First dose on 06/02/18 | | AM PST | | | [...] | | +---+---+ + +-------+ +--------+---+---+ | haloperidol lactate (HALDOL) | Given | 06/03/19 | 2.5 mg | | | | injection 2.5 mg 2.5 mg, | | 19 4:29 | | | | | intravenous, ONCE, 1 dose, Mon | | PM PST | | | | | 06/03/18 at 1700 | | | | | | + +-------+ +--------+---+---+ + +---+ | | | + +---+ | haloperidol lactate (HALDOL) | | | injection 1 dose, Starting Mon | | | 06/03/18 at 1623, Until Mon | | | 06/03/18 at 1629 | | + +---+ | | | + +---+ | HYDROmorphone (DILAUDID) | | | injection 0.2-0.4 mg 0.2-0.4 mg, | | | intravenous, EVERY 2 HOURS | | | NEEDED, Starting 06/01/18 at | | | 1647, Until Myesha 06/06/18 at 2229, | | | severe pain | | + +---+ | | | + +---+ + +-------+ +--------+---+---+ | HYDROmorphone (DILAUDID) | Given | 06/03/19 | 0.3 mg | | | | injection 0.2-0.5 mg 0.2-0.5 mg, | | 19 5:08 | | | | | intravenous, POSTPROCEDURE PRN, | | PM PST | | | | | Starting 06/03/18 at 1334, | | | | | | | Until Sun06/03/18 at 1806, | | | | | | | moderate pain while in Phase I | | | | | | | Recovery | | | | | | + +-------+ +--------+---+---+ +-------+ +--------+---+---+ | Given | 06/03/19 | 0.5 mg | | | | | 19 4:03 | | | | | | PM PST | | | | +-------+ +--------+---+---+ | Given | 06/03/19 | 0.3 mg | | | | | 19 3:16 | | | | | | PM PST | | | | +-------+ +--------+---+---+ +---+---+ | | | +---+---+ + +-------+ +--------+---+---+ | HYDROmorphone (DILAUDID) | Given | 06/01/19 | 0.4 mg | | | | injection 0.2-0.6 mg 0.2-0.6 mg, | | 19 10:46 | | | | | intravenous, EVERY 2 HOURS | | AM PST | | | | | NEEDED, Starting 05/31/18 at | | | | | | | 1312, Until 06/01/18 at 1648, | | | | | | | severe pain | | | | | | + +-------+ +--------+---+---+ +-------+ +--------+---+---+ | Given | 05/31/19 | 0.2 mg | | | | | 19 3:06 | | | | | | PM PST | | | | +-------+ +--------+---+---+ +---+---+ | | | +---+---+ + +---------+ +-------+-------+---+ | lactated Ringers IV 100 mL/hr, | New Bag | 06/05/19 | 100 | 100 | | | intravenous, CONTINUOUS, | | 19 3:30 | mL/hr | mL/hr | | | Starting 06/04/18 at 1700, | | AM PST | | | | | Until 06/05/18 at 1814 | | | | | | + +---------+ +-------+-------+---+ + + +-------+-------+---+ | Restarted | 06/04/19 | 100 | 100 | | | | 19 7:07 | mL/hr | mL/hr | | | | PM PST | | | | + + +-------+-------+---+ | New Bag | 06/04/19 | 100 | 100 | | | | 19 5:41 | mL/hr | mL/hr | | | | PM PST | | | | + + +-------+-------+---+ +---+---+ | | | +---+---+ + +---------+ + + +---+ | lactated Ringers IV 75 mL/hr, | New Bag | 06/04/19 | 75 mL/hr | 75 mL/hr | | | intravenous, CONTINUOUS, Starting | | 19 6:45 | | | | | 06/04/18 at 1915, Until Tue | | PM PST | | | | | 06/04/18 at 1905 | | | | | | + +---------+ + + +---+ +---+---+ | | | +---+---+ + +-------+ +-------+---+---+ | lidocaine (XYLOCAINE) 10 mg/mL | Given | 06/01/19 | 30 mL | | | | (1 %) injection 30 mL 30 mL, | | 19 10:48 | | | | | infiltration, ONCE, 1 dose, Sat | | AM PST | | | | | 06/01/18 at 0745 | | | | | | + +-------+ +-------+---+---+ +---+---+ | | | +---+---+ + +-------+ +-------+---+---+ | lisinopril (PRINIVIL) tablet 20 | Given | 06/06/19 | 20 mg | | | | mg 20 mg, oral, DAILY, First | | 19 9:06 | | | | | dose on Myesha 06/06/18 at 0900, | | AM PST | [...] +---+---+ | | | +---+---+ + +-------+ +---------+---+---+ | metoprolol tartrate (LOPRESSOR) | Given | 06/05/19 | 6.25 mg | | | | tablet 6.25 mg 6.25 mg, oral, | | 19 8:41 | | | | | TWICE DAILY, 7 doses, First dose | | PM PST | | | | | on 06/02/18 at 2100, Last dose | | | | | | | on Sun06/05/18 at 2100 | | | | | | + +-------+ +---------+---+---+ +-------+ +---------+---+---+ | Given | 06/05/19 | 6.25 mg | | | | | 19 7:31 | | | | | | AM PST | | | | +-------+ +---------+---+---+ | Given | 06/04/19 | 6.25 mg | | | | | 19 8:49 | | | | | | PM PST | | | | +-------+ +---------+---+---+ + +---+ | | | + +---+ | naloxone (NARCAN) injection | | | intravenous, NEEDED, Starting | | | 05/31/18 at 1312, Until Myesha | | | 06/06/18 at 2229, over sedation | | + +---+ | | | + +---+ + +-------+ +-------+---+---+ | omeprazole (PRILOSEC) capsule | Given | 06/03/19 | 20 mg | | | | 20 mg 20 mg, oral, BEFORE | | 19 6:37 | | | | | BREAKFAST, First dose on Mon | | AM PST | | | | | 06/03/18 at 0630, Until | | | | | | | Discontinued | | | | | | + +-------+ +-------+---+---+ +---+---+ | | | +---+---+ + +-------+ +-------+---+---+ | omeprazole (PRILOSEC) capsule | Given | 06/04/19 | 40 mg | | | | 40 mg 40 mg, oral, BEFORE | | 19 4:19 | | | | | BREAKFAST, First dose (after last | | AM PST | | | | | modification) on Sun06/04/18 at | | | | | | | 0400, Until Discontinued | | | | | | + +-------+ +-------+---+---+ + +---+ | | | + +---+ [...] | | +---+---+ + +-------+ +-------+---+---+ | oxyCODONE (immediate release) | Given | 06/01/19 | 10 mg | | | | (ROXICODONE) tablet 5-15 mg 5-15 | | 19 4:38 | | | | | mg, oral, EVERY 3 HOURS | | PM PST | | | | | NEEDED, Starting 05/31/18 at | | | | | | | 1312, Until 06/01/18 at 1648, | | | | | | | moderate pain | | | | | | + +-------+ +-------+---+---+ +-------+ +-------+---+---+ | Given | 06/01/19 | 10 mg | | | | | 19 12:36 | | | | | | PM PST | | | | +-------+ +-------+---+---+ | Given | 06/01/19 | 10 mg | | | | | 19 8:22 [...] | | | | | NEEDED, Starting Sun05/31/18 at | | | | | | | 1312, Until Sun06/06/18 at 2229, | | | | | [...]
--- OUTSIDE RECORDS SUMMARY | ~2019-11-25 | XMS | Encounter Summary ---
Demographics + + + | Address | [address] | | | [place] [address] | + + + | Home Phone | | + + + | Preferred Language | Unknown | + + + | Marital Status | | + + + | Hoahaoism Affiliation | NON | + + + | Race | White | + + + | Ethnic Group | Not or | + + + Author + + + | Author | [facility] | + + + | Organization | [facility] | + + + | Address | Unknown | + + + | Phone | Unavailable | + + + Support + + +---------+ + | Name | Relationship | Address | Phone | + + +---------+ + | None Per Pt | ECON | Unknown | Unavailable | + + +---------+ + Care Team Providers + +------+ + | Care Pillowcase Maker Name | Role | Phone | + +------+ + | Herlinda Maldonado | PCP | | + +------+ + Encounter Details +--------+ + + + + | Date | Type | Department | Care Team | Description | +--------+ + + + + | 06/28/ | Document-Sc | Health Information | Other, Faculty | | | 2018 | anned | Services [address] | [phone] | | | | | [address] | | | | | | Mailcode: OP17A | | | | | | [facility] | | | | | | [place], [place] | | | | | | [address] | | | | | | [phone] | | | +--------+ + + + [...]
--- OUTSIDE RECORDS SUMMARY | ~2019-11-25 | XMS | Encounter Summary ---
Demographics + + + | Address | [address] | | | [place] [address] | + + + | Home Phone | | + + + | Preferred Language | Unknown | + + + | Marital Status | | + + + | Synagogue Affiliation | NON | + + + | Race | White | + + + | Ethnic Group | Not or | + + + Author + + + | Author | [facility] | + + + | Organization | [facility] | + + + | Address | Unknown | + + + | Phone | Unavailable | + + + Support + + +---------+ + | Name | Relationship | Address | Phone | + + +---------+ + | None Per Pt | ECON | Unknown | Unavailable | + + +---------+ + Care Team Providers + +------+ + | Care Senior Javascript Engineer Name | Role | Phone | [...] | +--------+ + + + + | 06/03/ | Anesthesia | 6A Intra Op 3181 | Cathi Macario, | | | 2019 | Event | [address] | [address] | | | | | [facility] | [facility] | | | | | Hospital Admitting | [place], [place] | | | | | Desk Located on the | [address] | | | | | 9th floor | [phone] | | | | | [place], [place] | | | | | | [address] | | | +--------+ + + + + Anesthesia Record + + + + + | Procedure Name | Responsible | Anesthesia Start | Anesthesia Stop Time | | | Anesthesiologist | Time | | + + + + + | Percutaneous | Cathi Macario MD | 06/03/18 1118 | 06/03/18 1425 | | fixation of | | | | | acetabular | | | | | lesly-prosthetic | | | | | fracture (Left Hip) | | | | + + + + + +----+---+ + + | Da | T | Event | Comment | | te | i | | | | | m | | | | | e | | | +----+---+ + + | 01 | 1 | Eq Check | Anesthesia machine checked Equipment verified | | /1 | 0 | | | | 4/ | 5 | | | | 20 | 4 | | | | 19 | | | | +----+---+ + + | | 1 | Pt. Check | Prior to anesthesia start, pt. Identified, examined, chart | | | 0 | | reviewed, PARQ held, anesthetic plan made or approved by | | | 5 | | attending anesthesiologist. NPO status confirmed as appropriate | | | 5 | | for procedure Preoperative evaluation: unchanged | +----+---+ + + | | 1 | An Start | | | | 1 | | | | | 1 | | | | | 8 | | | +----+---+ + + | | 1 | An Start | | | | 1 | Data | | | | 2 | | | | | 1 | | | +----+---+ + + | | 1 | Vitals | Monitors applied Vital signs checked Patient ready for anesthesia | | | 1 | Checked | | | | 2 | | | | | 4 | | | +----+---+ + + | | 1 | ETT | | | | 1 | | | | | 3 | | | | | 0 | | | +----+---+ + + | | 1 | Quick Note | Moving patient to OR bed with staff x4 | | | 1 | | | | | 4 | | | | | 0 | | | +----+---+ + + | | 1 | Ready | | | | 1 | | | | | 4 | | | | | 7 | | | +----+---+ + + | | 1 | Abx | | | | 2 | Administere | | | | 0 | d | | | | 7 | | | +----+---+ + + | | 1 | Timeout | | | | 2 | | | | | 3 | | | | | 1 | | | +----+---+ + + | | 1 | Incision | | | | 2 | | | | | 4 | | | | | 2 | | | +----+---+ + + | | 1 | Surgery end | | | | 4 | | | | | 1 | | | | | 4 | | | +----+---+ + + | | 1 | An Extubate | Neuromuscular function Intact. Pharynx suctioned. Patient obeys | | | 4 | | commands. Adequate pulmonary mechanics. | | | 1 | | | | | 8 | | | +----+---+ + + | | 1 | an stop | | | | 4 | data | | | | 2 | | | | | 0 | | | +----+---+ + + | | 1 | PACU Rpt | | | | 4 | Given | | | | 2 | | | | | 5 | | | +----+---+ + + | | 1 | Anesthesia | | | | 4 | End | | | | 2 | | | | | 5 | | | +----+---+ + + +------+ | Meds | +------+ + + + | Name | Total | + + + | propofol | 160 mg | + + + | fentaNYL | 250 mcg | + + + | lidocaine 2% | 100 mg | + + + | rocuronium | 30 mg | + + + | PHENYLEPHrine | 600 mcg | + + + | ePHEDrine | 15 mg | + + + | PHENYLEPHrine INF (25mg/250mL) | 4,621.08 mcg | + + + | ceFAZolin | 2,000 mg | + + + | glycopyrrolate | 0.4 mg | + + + | neostigmine | 2 mg | + + + | ondansetron | 4 mg | + + + | LR | 1,000 mL | + + + + + | Name | + + | O2 FR Avance (Total Liters) | + + | Air FR Avance (l/min) | + + | Insp Sevo | + + | Et Sevo | + + | EtN2O % | + + | Insp N2O % | + + + + | No blood administrations on file. | + + +--------+ + + + | Type | Details | Placement | Removal | +--------+ + + + | Periph | 06/27/17; 0900; oscar mendez rn; | 06/27/17899 by | | | eral | Left; Forearm; 22 g; Positive | Lani Mendez RN | | | IV | | | | +--------+ + + + | Periph | 06/27/17; 15; oscar mendez rn; | 06/27/17914 by | | | eral | Right; Forearm; 20 g; Positive | Lani Mendez RN | | | IV | | | | +--------+ + + + | Station Mechanic Helper | 06/27/17; 2205; Medium | 06/27/172205 by | | | al | | Brittney Bautista RN | | | Sarar | | | | | y | | | | | Cathet | | | | | er | | | | +--------+ + + + | Incisi | 06/03/18; Dr. Lamb; Left; | 06/03/18 0000 by | | | on | Medial, Upper; leg | Ira Mcmahon RN | | +--------+ + + + | Periph | 06/01/18; 170; Sadia GUO; | 06/01/181700 by | 06/05/182052 by | | eral | Right; Antecubital; 20 g; No; No; | Sadia Brown RN | Kiah Corral RN | | IV | Positive; 06/05/18; 2052; | | | | | Infiltrated | | | +--------+ + + + | Urethr | 06/03/18; 1140; Bjorn Bragg. RN; 1; | 06/03/18 1140 by | 06/03/18 1430 by | | al | Corina; 16 Fr.; 10 mL; 06/03/18; | Ira Mcmahon RN | Tanvi Estrada RN | | Miguelina | 1430 (not present on admit to 6a) | | | | er | | | | +--------+ + + + | ETT | 06/03/18; 1157 (created via | 06/03/18 1157 by | 06/03/18 1418 by | | | procedure documentation); | Donnie Cardona, | Donnie Cardona, | | | Endotracheal Tube; 7.5; Oral; | MARKETING ANALYST | MARKETING ANALYST | | | 06/03/18; 1418 | | | +--------+ + + + [...] of a physical, mental, or emotional | No | 06/29/2017 | | condition, do you have serious difficulty | | | | doing errands alone such as visiting the | | | | doctor? | | | + + + + + + + + | Cognitive Status | Response | Date of Assessment | + + + + | Because of a physical, mental, or emotional | No | 06/29/2017 | | condition, do you have serious [...] | + +--------+ + + + | JOSE MANUEL SIEGEL | Routin | 06/03/2018 | | Results for this | | | e | 11:57 AM | | procedure are in the | | | | PST | | results section. | + +--------+ + + + documented in this encounter Results JOSE MANUEL SIEGEL (06/03/2018 11:57 AM PST) + + + | Narrative | Performed At | + + + | Donnie Cardona CRNA 06/03/2018 11:58 AM Procedure Reason | | | for Intubation: For surgical procedure, Location Performed: [place] , | | | Patient was preoxygenated Mask Ventilation Grade 1 - Ventilated by | | | mask Intubation Blade type: Eva , Blade size: 3, Atraumatic | | | laryngoscopy: Atraumatic Laryngoscopy, Laryngoscopic view: Grade I, | | | Number of Attempts: 1, Positive for EtCO2: Yes, Breath sounds: | | | Bilateral and equal ETT ETT Size: 7.5 ETT secured with: | | | adhesive tape Depth at Teeth: 23 Cm Airway leak: Yes | | | Narrative Attending: CAHTI MACARIO Performed by MARKETING ANALYST | | | DONNIE CARDONA | | + + + documented in this encounter Visit Diagnoses Not on filedocumented in this encounter Administered Medications + +--------+ + +------+------+ | Medication Order | MAR | Action | Dose | Rate | Site | | | Action | Date | | | | + +--------+ + +------+------+ | ceFAZolin (ANCEF) injection | Given | 06/03/19 | 2,000 mg | | | | INTRAPROCEDURE PRN, Starting Sun | | 12:07 | | | | | 06/03/18 at 1207, Until Mon | | PM PST | | | | | 06/03/18 at 1425 | | | | | | + +--------+ + +------+------+ +---+---+ | | | +---+---+ + +-------+ +-------+---+---+ | ePHEDrine injection | Given | 06/03/19 | 10 mg | | | | INTRAPROCEDURE PRN, Starting Mon | | 19 11:35 | | | | | 06/03/18 at 1130, Until Mon | | AM PST | | | | | 06/03/18 at 1425 | | | | | | + +-------+ +-------+---+---+ +-------+ +------+---+---+ | Given | 06/03/19 | 5 mg | | | | | 19 11:30 | | | | | | AM PST | | | | +-------+ +------+---+---+ +---+---+ | | | +---+---+ + +-------+ +--------+---+---+ | fentaNYL (SUBLIMAZE) injection | Given | 06/03/19 | 50 mcg | | | | INTRAPROCEDURE PRN, Starting Mon | | 19 1:11 | | | | | 06/03/18 at 1127, Until Mon | | PM PST | | | | | 06/03/18 at 1425 | | | | | | + +-------+ +--------+---+---+ +-------+ +--------+---+---+ | Given | 06/03/19 | 50 mcg | | | | | 19 12:45 | | | | | | PM PST | | | | +-------+ +--------+---+---+ | Given | 06/03/19 | 50 mcg | | | | | 19 12:37 | | | | | | PM PST | | | | +-------+ +--------+---+---+ +---+---+ | | | +---+---+ + +-------+ +--------+---+---+ | glycopyrrolate (ROBINUL) | Given | 06/03/19 | 0.4 mg | | | | injection INTRAPROCEDURE PRN, | | 19 1:50 | | | | | Starting Sun06/03/18 at 1350, | | PM PST | | | | | Until Sun06/03/18 at 1425 | | | | | | + +-------+ +--------+---+---+ +---+---+ | | | +---+---+ + +---------+ +---+---+---+ | lactated Ringers IV | New Bag | 06/03/19 | | | | | INTRAPROCEDURE CONTINUOUS PRN, | | 19 1:01 | | | | | Starting Sun06/03/18 at 1118, | | PM PST | | | | | Until Sun06/03/18 at 1425 | | | | | | + +---------+ +---+---+---+ +---------+ +---+---+---+ | New Bag | 06/03/19 | | | | | | 19 11:18 | | | | | | AM PST | | | | +---------+ +---+---+---+ +---+---+ | | | +---+---+ + +-------+ +--------+---+---+ | lidocaine (XYLOCAINE MPF) 2 % | Given | 06/03/19 | 100 mg | | | | (20 mg/mL) injection | | 19 11:27 | | | | | INTRAPROCEDURE PRN, Starting Mon | | AM PST | | | | | 06/03/18 at 1127, Until Mon | | | | | | | 06/03/18 at 1425 | | | | | | + +-------+ +--------+---+---+ +---+---+ | | | +---+---+ + +-------+ +------+---+---+ | neostigmine (PROSTIGMIN) | Given | 06/03/19 | 2 mg | | | | injection intravenous, | | 19 1:50 | | | | | INTRAPROCEDURE PRN, Starting Mon | | PM PST | | | | | 06/03/18 at 1350, Until Mon | | | | | | | 06/03/18 at 1425 | | | | | | + +-------+ +------+---+---+ +---+---+ | | | +---+---+ + +-------+ +------+---+---+ | ondansetron (ZOFRAN) injection | Given | 06/03/19 | 4 mg | | | | INTRAPROCEDURE PRN, Starting Mon | | 19 1:50 | | | | | 06/03/18 at 1350, Until Mon | | PM PST | | | | | 06/03/18 at 1425 | | | | | | + +-------+ +------+---+---+ +---+---+ | | | +---+---+ + +-------+ +---------+---+---+ | PHENYLEPHrine 100 mcg/mL IV | Given | 06/03/19 | 100 mcg | | | | syringe INTRAPROCEDURE PRN, | | 19 12:07 | | | | | Starting 06/03/18 at 1207, | | PM PST | | | | | Until 06/03/18 at 1425 | | | | | | + +-------+ +---------+---+---+ +-------+ +---------+---+---+ | Given | 06/03/19 | 100 mcg | | | | | 19 12:04 | | | | | | PM PST | | | | +-------+ +---------+---+---+ | Given | 06/03/19 | 200 mcg | | | | | 19 11:58 | | | | | | AM PST | | | | +-------+ +---------+---+---+ +---+---+ | | | +---+---+ + + + + +--------+---+ | PHENYLEPHrine 25 mg/250 mL (0.1 | Rate/Dos | 06/03/19 | 0.3 | 14.29 | | | mg/mL) IV infusion (ADC) | e Change | 19 1:18 | mcg/kg/m | mL/hr | | | intravenous, INTRAPROCEDURE | | PM PST | in | | | | CONTINUOUS PRN, Starting Mon | | | | | | | 06/03/18 at 1147, Until Mon | | | | | | | 06/03/18 at 1425 | | | | | | + + + + +--------+---+ + + + +--------+---+ | Rate/Dose Change | 06/03/19 | 0.4 | 19.06 | | | | 19 1:10 | mcg/kg/m | mL/hr | | | | PM PST | in | | | + + + +--------+---+ | Rate/Dose Change | 06/03/19 | 0.5 | 23.82 | | | | 19 12:46 | mcg/kg/m | mL/hr | | | | PM PST | in | | | + + + +--------+---+ +---+---+ | | | +---+---+ + +-------+ +-------+---+---+ | propofol (DIPRIVAN) injection | Given | 06/03/19 | 20 mg | | | | INTRAPROCEDURE PRN, Starting Sun | | 19 2:08 | | | | | 06/03/18 at 1127, Until Mon | | PM PST | | | | | 06/03/18 at 1425 | | | | | | + +-------+ +-------+---+---+ +-------+ +--------+---+---+ | Given | 06/03/19 | 20 mg | | | | | 19 2:05 | | | | | | PM PST | | | | +-------+ +--------+---+---+ | Given | 06/03/19 | 120 mg | | | | | 19 11:27 | | | | | | AM PST | | | | +-------+ +--------+---+---+ +---+---+ | | | +---+---+ + +-------+ +-------+---+---+ | rocuronium (ZEMURON) injection | Given | 06/03/19 | 30 mg | | | | INTRAPROCEDURE PRN, Starting Mon | | 19 11:28 | | | | | 06/03/18 at 1128, Until Mon | | AM PST | | | | | 06/03/18 at 1425 | | | | | | + +-------+ +-------+---+---+ +---+---+ | | | +---+---+ documented in this encounter"
--- OUTSIDE RECORDS SUMMARY | ~2019-11-25 | XMS | Encounter Summary ---
Demographics + + + | Address | [address] | | | [place] [address] | + + + | Home Phone | | + + + | Preferred Language | Unknown | + + + | Marital Status | | + + + | Confucianism Affiliation | NON | + + + | Race | White | + + + | Ethnic Group | Not or | + + + Author + + + | Author | [facility] | + + + | Organization | [facility] | + + + | Address | Unknown | + + + | Phone | Unavailable | + + + Support + + +---------+ + | Name | Relationship | Address | Phone | + + +---------+ + | None Per Pt | ECON | Unknown | Unavailable | + + +---------+ + Care Team Providers + +------+ + | Care Property Management Accountant Name | Role | Phone | + +------+ + | Daryl March MD | PCP | | + +------+ + Reason for Referral PROC - Dept/Practice Procedure (Urgent) +--------+--------+ + + + + | Status | Reason | Specialty | Diagnoses / | Referred By | Referred To | | | | | Procedures | Contact | Contact | +--------+--------+ + + + + | Denied | | Gastroenterol | Diagnoses | [place], | Gas Endo | | | | ogy | | Lyla Field, | [facility] | | | | | Choledocholi | [address] | | | | | thiasis | [address] | [place] | | | | | Procedures | Carolina Estevez | [place] | | | | | CONSULT TO | [place], [place] | floor | | | | | GI | [address] | [place], [place] | | | | | PROCEDURE: | Phone: | [phone] | | | | | ERCP / | [phone] | Phone: | | | | | BILIARY | Fax: | [phone] | | | | | MANOMETRY | [phone] | Fax: | | | | | | | [phone] | +--------+--------+ + + + + Encounter Details +--------+ + + + + | Date | Type | Department | Care Team | Description | +--------+ + + + + | 06/27/ | Catering Chef | Digestive Health | Lyla Mendoza | Choledocholithiasis | | 2018 | | [facility] [address] | MD Rashida [address] [facility] | (Primary Dx) | | | | Sherman Villagomez | [address] | | | | | Mailcode: Center | [place], [place] | | | | | for Health and | [address] | | | | | [facility] [address] | [phone] | | | | | [facility] [place] | | | | | | [address] | | | | | | [phone] | | | +--------+ + + + [...] | + + | Choledocholithiasis - Primary Calculus of bile duct without mention of cholecystitis | | or obstruction | + + documented in this encounter"
--- OUTSIDE RECORDS SUMMARY | ~2019-11-25 | XMS | Encounter Summary ---
Demographics + + + | Address | [address] | | | [place] [address] | + + + | Home Phone | | + + + | Preferred Language | Unknown | + + + | Marital Status | | + + + | Mandaen Affiliation | Unknown | + + + | Race | Unknown | + + + | Ethnic Group | Unknown | + + + Author + + + | Author | [facility] | | | and [place] | + + + | Organization | [facility] | | | and [...] Team Providers + +------+ + | Care Fitness Leader Name | Role | Phone | + +------+ + | Herlinda Maldonado | PCP | | | PA | | | + +------+ + Encounter Details +--------+ + + + + | Date | Type | Department | Care Team | Description | +--------+ + + + + | 03/26/ | Hospital | [facility] | Maximilian Abreu | Atrial fibrillation, | | 2019 | Encounter | [facility] | MD Jon [address] | unspecified type | | | | MEDICINE [address] [place] | ([facility]); Abnormal EKG | | | | [address], | [place] [address] | | | | | [place] [address] | [phone] | | | | | [phone] | | | +--------+ + + + [...] 84 y.o. PRIMARY CARE: SHAHEEN Toro READING DELIVERY SALES WORKER: Salvador Abreu MD, PhD, [facility] 48-HOUR HOLTER MONITOR REPORT DATE: 03/26/2019 [...] 25 cycles on 01:15. 5) There were [id number] Supraventricular beats with 558 couplets and 78 [...] reported. Signed by: Salvador Abreu MD PhD [facility] 03/27/2019, 16:05 documented in t his [...] PRIMARY CARE: | | | SHAHEEN Toro LEANDER DELIVERY SALES WORKER: Salvador Abreu MD, | | | PhD, [facility] 48-HOUR HOLTER MONITOR REPORT DATE: 03/26/2019 [...] 01:15. | | | 5) There were [id number] Supraventricular beats with 558 couplets and | [...] | Signed by: Salvador Abreu MD PhD [facility] 03/27/2019, 16:05 | | + + + + +---------+ + + | Performing | Address | [facility] | Phone Number | | Organization [...]
--- OUTSIDE RECORDS SUMMARY | ~2019-11-25 | XMS | Encounter Summary ---
Demographics + + + | Address | [address] | | | [place] [address] | + + + | Home Phone | | + + + | Preferred Language | Unknown | + + + | Marital Status | | + + + | Taoism Affiliation | NON | + + + | Race | White | + + + | Ethnic Group | Not or | + + + Author + + + | Author | [facility] | + + + | Organization | [facility] | + + + | Address | Unknown | + + + | Phone | Unavailable | + + + Support + + +---------+ + | Name | Relationship | Address | Phone | + + +---------+ + | None Per Pt | ECON | Unknown | Unavailable | + + +---------+ + Care Team Providers + +------+ + | Care Wire Coating Machine Operator Name | Role | Phone | [...] | 05/31/ | Hospital | [facility] [address] | Ashwini Ruggiero MD | | | 2019 - | Encounter | [address] | [address] | | | | | [place], | [address] | | | 06/06/ | | [place] [address] | [place], [place] | | | 2018 | | [phone] | [address] | | | | | | [phone] | | | | | | | | | | | | Nguyễn Shepard, | | | | | | [address] | | | | | | [address] | | | | | | [place], [place] | | | | | | [address] | | | | | | [phone] | | | | | | | [...] might be differe nt from the original. [facility] INPATIENT [facility]OSP[facility] DISCHARGE SUMMARY & INTERDISCIPLINARY INSTRUCTIONS Patient: William Burns CSN: [id number] Admission Date: 05/31/2018 Discharge Date: 06/06/2018 Attending Physician: Nguyễn Shepard MD PCP: SHAHEEN Love Service: [facility] Orthopaedics & Rehabilitation Diagnoses Principal Final Diagnosis: [...] your wound is infected. Call [facility] Orthopedics first at . Activity NON Weight bearing on left leg. For approximately 4 weeks to be determined at postoperative clinic visit. Condition on Discharge Stable Follow-Up Appointments ORTHOPEDICS OUTPATIENT CLINIC: Future Appointments Provider Department Dept Phone Center 07/02/2018 1:40 PM Nguyễn Chance Working Orthopaedics at [facility] [phone] Orthopedics PCP: As needed for any medical [...] mouth once daily at bedtime. [facility] Orthopaedic Service Pain Policy At the 6-week [...] administration instructions. - Call Orthopedic Clinic at [phone] if any persistent, localized swelling that does [...] and ask for the orthopaedic surgery resident interpersonal communications professor. Additional Post-Op Instructions / What to Expect [...] it has been our pleasure. ELISE Mckeon [facility] Department of Orthopaedics & Rehabilitation [address] [place] [address] Mail Code: OP31 [facility] [address] documented in t his encounter Medications at [...] left pelvic fracture, transferred to [facility] Orthopedic Surgery service for surg ical management. [facility] initially consulted for pre-operative evaluation. Nausea/Vomiting [...] uses sparingly. On arrival to [facility] he was on 4 L NC and [...] Sanchez MD Attending Physician Clinical Hospitalist Services [facility] Pager [phone] Please call or page me with any questions or concerns. Doe Newman MD - 06/06/2018 9:11 AM PST Orthopaedic Surgery Progress Note Patient: /Age: MRN: CSN: Date: Admission Date: Hospital Day: Orthopaedic Attending: William Burns 1935 83 y.o. [id number] 06/06/2018 05/31/2018 6 Nguyễn Shepard MD Diagnosis: [...] to make a follow up appointment in [facility] ximately 1 weeks with ORTHO TRAUMA & [...] left pelvic fracture, transferred to [facility] Orthopedic Surgery service for surg ical management. [facility] initially consulted for pre-operative evaluation. Nausea/Vomiting [...] uses sparingly. On arrival to [facility] he was on 4 L NC and [...] Sanchez MD Attending Physician Clinical Hospitalist Services [facility] Pager [phone] Please call or page me with any questions or concerns. Doe Newman MD - 06/05/2018 7:10 AM PST Orthopaedic Surgery Progress Note Patient: /Age: MRN: CSN: Date: Admission Date: Hospital Day: Orthopaedic Attending: William Burns 1935 83 y.o. [id number] 06/05/2018 05/31/2018 5 Nguyễn Shepard MD Diagnosis: [...] to make a follow up appointment in [facility] ximately 1 weeks with ORTHO TRAUMA & [...] refill < 2 seconds Doe Gongora MD [facility] Department of Orthopaedics & Rehabilitation [address] [place] [address] Mail Code: OP31 [facility] [address] Kg Snider MD - 06/04/2018 10:03 AM [...] left pelvic fracture, transferred to [facility] Orthopedic Surgery service for surg ical management. [facility] initially consulted for pre-operative evaluation. Nausea/Vomiting [...] uses sparingly. On arrival to [facility] he was on 4 L NC and [...] Sanchez MD Attending Physician Clinical Hospitalist Services [facility] Pager [phone] Please call or page me with any questions or concerns. Devendra Scales MD - 06/04/2018 7:48 AM PST Orthopaedic Surgery Progress Note Patient: /Age: MRN: CSN: Date: Admission Date: Hospital Day: Orthopaedic Attending: William James Grant 1935 83 y.o. [id number] 06/04/2018 05/31/2018 4 Nguyễn Shepard MD Diagnosis: [...] to make a follow up appointment in [facility] ximately 1 weeks with ORTHO TRAUMA & [...] well perfused, capillary refill < 2 seconds oDe Gongora MD [facility] Department of Orthopaedics & Rehabilitation [address] [place] [address] Mail Code: OP31 [facility] [address] evendra Da Silva MD - 06/03/2018 8:32 [...] MD Orthopaedic Surgery Resident 06/03/2018, 8:33 PM [facility] Department of Orthopaedics & Rehabilitation [address] [facility] Mail Code: OP31 [place] [address] Jade Messina MD - 06/02/2018 8:36 AM [...] Please call Orthopaedic Trauma and Fracture at [phone] to schedule a followup within 2 weeks from discharge. ALEXA VICKERS MD Pager: [phone] 06/02/2018 oe Gongora MD - 06/01/2018 8:27 AM PST Orthopaedic Surgery Progress Note Patient: /Age: MRN: CSN: Date: Admission Date: Hospital Day: Orthopaedic Attending: William Burns 1935 83 y.o. [id number] 06/01/2018 05/31/2018 1 Nguyễn Shepard MD Diagnosis: [...] [facility]THO [facility] & FRACTURE, [...] seconds Reflexes: not performed Doe Gongora MD [facility] Department of Orthopaedics & Rehabilitation [address] [facility] [address] Mail Code: OP31 Dileep CHAPPELL [id number] documented in this enco unter Plan of [...] | + + + + + | [facility] | [address] | [place] [address] | | | SERVICES, CORE | [address] | | | + + + [...] | | | LABORATORY | | | [facility] [place] | | | SERVICES, | | | [...] + + + + + | [facility] | [address] | [place] [address] | | | SERVICES, CORE | RICHARD [...] LABORATORY | [address] | [place] [address] | | | SERVICES, CORE | PARK [...] | | | LABORATORY | | | [place] | | | SERVICES, | | | [...] equation recommended by the | [facility] | | National Kidney Disease Education Program. [...] + + + + | [facility]ORY | [address] [facility] | [place] [address] | | | SERVICES, YOKASTA | RICHARD [...] | + + + + + | [facility] | [address] | [place] [address] | | | SERVICES, CORE | RICHARD [...] | + + + + + | [facility] | [address] | [place] [address] | | | SERVICES, CORE | [address] | | | + + + + + X-RAY PORTABLE 2 VIEW ABDOMEN (KUB AND UPRIGHT) (06/04/2018 2:32 PM PST) + + | Specimen | + + | | + + + + + | Narrative | Performed At | + + + | EXAM: IA 2 VIEW ABDOMEN (KUB AND UPRIGHT) History: [...] Interface - 06/04/2018 4:24 PM PST EXAM: IA 2 VIEW | | ABDOMEN (KUB AND [...] | + + + + + | [facility] | [address] | [place] [address] | | | SERVICES, CORE | RICHARD [...] | + + + + + | [facility] | [address] [facility] | [place] [address] | | | SERVICES, CORE | RICHARD [...] | + + + + + | [facility] | [address] [facility] | [place] [address] | | | SERVICES, CORE | RICHARD [...] | | | LABORATORY | | | [facility] [place] | | | SERVICES, | | | [...] | + + + + + | [facility] | [address] [facility] | [place] [address] | | | SERVICES, CORE | RICHARD [...] Note | + + | Service Account, [employer] Res In Interface - 06/04/2018 4:42 PM [...] + +---------+ + + | [facility] RADIOLOGY | | | | | VOICE RECOGNITION 2 | | | | + +---------+ + + OPERATION RECORD (06/03/2018 4:58 PM PST) + + | Procedure Note | + + | Nguyễn Shepard MD - 06/03/2018 4:58 PM [facility] Date of Service: 06/03/2018 | | Attending Surgeon: Nguyễn Shepard MD Printing Supervisor(s): Devendra Allen | | MD Avinash. Preoperative [...] | was transferred to the [facility]. A sacral bump consisting of 5 squared [...] referred to my care at [facility] by another | | orthopaedic surgeon. The patient is from the [facility] and traveled many miles to | | get to [facility], bypassing several other hospitals due to the [...] 06/03/2018 14:26:09DT: | | 06/03/2018 16:58:33Job #: [id number] | + + MAGNESIUM, PLASMA (06/03/2018 4:37 [...] [facility] | [address] | [place] [address] | | | SERVICES, CORE | PARK [...] OF | [address] | [place], [place] | | | CARDIOLOGY | [address] | [address] | | + + + + + [...] [facility] | [address] | [place], [place] | | | DILAN TURNER OF CARE | [address] | [address] | | | TESTS | | | [...] [facility] | [address] | [place], [place] | | | DILAN TURNER OF CARE | [address] | [address] | | | TESTS | | | [...] | + + + + + | [facility] | [address] | [place] [address] | | | SERVICES, YOKASTA | RICHARD [...] | | | LABORATORY | | | [facility] [place] | | | SERVICES, | | | [...] | + + + + + | [facility] | [address] | [place] [address] | | | SERVICES, CORE | RICHARD [...] + + + + | [facility] DEPT OF | [address] | [place], [place] | | | CARDIOLOGY | [address] | [address] | | + + + + + [...] LABORATORY | [address] | [place] [address] | | | SERVICES, CORE | PARK [...] LABORATORY | [address] | [place] [address] | | | SERVICES, CORE | PARK [...] | | | LABORATORY | | | [facility] | | | SERVICES, | | | [...] + + + + | [facility] [employer] | [address] | [place] [address] | | | SERVICES, CORE | RICHARD [...] LABORATORY | [address] | [place] [address] | | | SERVICES, | [address] [...] | + + + + + | [facility] | [address] | [place] [address] | | | SERVICES, | [address] [...] + + + + | [facility] | [address] | [place] [address] | | | SERVICES, CORE | [address] | | | + + + + + X-RAY KNEE 2 VIEWS LEFT (06/01/2018 11:48 AM PST) + + | Specimen | + + | | + + + + + | Narrative | Performed At | + + + | EXAM: KNEE 2 VIEWS LEFT HISTORY: eval traction pin placement | [facility] | | COMPARISON: None. FINDINGS/IMPRESSION: Interval placement [...] LABORATORY | [address] | [place] [address] | | | SERVICES, CORE | PARK [...] | | | LABORATORY | | | [place] | | | SERVICES, | | | [...] equation recommended by the | [facility] | | National Kidney Disease Education Program. [...] | + + + + + | [facility] | [address] | [place] [address] | | | SERVICES, CORE | RICHARD [...] Note | + + | Service Account, [employer] Res In Interface - 06/01/2018 9:25 AM [...] | + + + + + | [facility] | [address] | [place] [address] | | | SERVICES, CORE | RICHARD [...] | | | LABORATORY | | | [facility] [place] | | | SERVICES, | | | [...] | + + + + + | [facility] | [address] | [place] [address] | | | SERVICES, CORE | RICHARD [...]
--- OUTSIDE RECORDS SUMMARY | ~2019-11-25 | XMS | Encounter Summary ---
Demographics + + + | Address | [address] | | | [place] [address] | + + + | Home Phone | | + + + | Preferred Language | Unknown | + + + | Marital Status | | + + + | Buddhism Affiliation | NON | + + + | Race | White | + + + | Ethnic Group | Not or | + + + Author + + + | Author | [facility] | + + + | Organization | [facility] | + + + | Address | Unknown | + + + | Phone | Unavailable | + + + Support + + +---------+ + | Name | Relationship | Address | Phone | + + +---------+ + | None Per Pt | ECON | Unknown | Unavailable | + + +---------+ + Care Team Providers + +------+ + | Care Operations Technician Name | Role | Phone | + +------+ + | Herlinda Maldonado | PCP | | + +------+ + Reason for Visit + + + | Reason | Comments | + + + | Medication | | | management | | + + + Encounter Details +--------+ + + + + | Date | Type | Department | Care Team | Description | +--------+ + + + + | 06/07/ | Telephone | [facility] | Sudhakar Giron MD | Medication | | 2019 | | at [facility] | [address] | management | | | | [address] | [address] | | | | | Loop Physician's | [place], [place] | | | | | [place], [facility] floor | [address] | | | | | [place], [place] | [phone] | | | | | [address] | | | | | | [phone] | | | +--------+ + + + [...]
--- OUTSIDE RECORDS SUMMARY | ~2019-11-25 | XMS | Encounter Summary ---
Demographics + + + | Address | [address] | | | [place] [address] | + + + | Home Phone | | + + + | Preferred Language | Unknown | + + + | Marital Status | | + + + | Sabianist Affiliation | NON | + + + [...] Team Providers + +------+ + | Care Wood Floor Refinisher Name | Role | Phone | + +------+ + | Herlinda Maldonado | PCP | | + +------+ + Encounter Details +--------+--------+ + + + | Date | Type | Department | Care Team | Description | +--------+--------+ + + + | 05/30/ | Intake | Transfer Center | | N/A | | 2019 | | [address] | | | | | | [place], | | | | | | [place] [address] | | | +--------+--------+ + + + Social History + +-------+ [...]
--- OUTSIDE RECORDS SUMMARY | ~2019-11-25 | XMS | Encounter Summary ---
Demographics + + + | Address | [address] | | | [place] [address] | + + + | Home Phone | | + + + | Preferred Language | Unknown | + + + | Marital Status | | + + + | Jehovah'S Witness Affiliation | NON | + + + | Race | White | + + + | Ethnic Group | Not or | + + + Author + + + | Author | [facility] | + + + | Organization | [facility] | + + + | Address | Unknown | + + + | Phone | Unavailable | + + + Support + + +---------+ + | Name | Relationship | Address | Phone | + + +---------+ + | None Per Pt | ECON | Unknown | Unavailable | + + +---------+ + Care Team Providers + +------+ + | Care Sterile Processing Tech Name | Role | Phone | + +------+ + | Herlinda Maldonado | PCP | | + +------+ + Reason for Visit + + + | Reason | Comments | + + + | Constipation | | + + + | Insomnia | | + + + | Weakness | | + + + Encounter Details +--------+ + + + + | Date | Type | Department | Care Team | Description | +--------+ + + + + | 06/12/ | Telephone | General Internal | Chloe Recinos MD | Constipation; | | 2019 | | Medicine at Offsite | [address] | Insomnia; Weakness | | | | [address] | [address] | | | | | [place], | [place], [place] | | | | | [place] [address] | [address] | | | | | [phone] | [phone] | | | | | | | [...]
--- OUTSIDE RECORDS SUMMARY | ~2019-11-25 | XMS | Encounter Summary ---
Demographics + + + | Address | [address] | | | [place] [address] | + + + | Home Phone [...] Team Providers + +------+ + | Care Event Representative Name | Role | Phone | + +------+ + | Herlinda Maldonado | PCP | | + +------+ + Encounter Details +--------+ + + + + | Date | Type | Department | Care Team | Description | +--------+ + + + + | 06/20/ | Documentati | General Internal | Annabella Gallardo DO | | | 2019 | on | [facility] | [address] | | | | | [address] | [place], | | | | | [place], | [place] [address] | | | | | [place] [address] | [phone] | | | | | [phone] | | | +--------+ + + + [...]
--- OUTSIDE RECORDS SUMMARY | ~2019-11-25 | XMS | Encounter Summary ---
Demographics + + + | Address | [address] | | | [place] [address] | + + + | Home Phone | | + + + | Preferred Language | Unknown | + + + | Marital Status | | + + + | Islam Affiliation | NON | + + + | Race | White | + + + | Ethnic Group | Not or | + + + Author + + + | Author | [facility] | + + + | Organization | [facility] | + + + | Address | Unknown | + + + | Phone | Unavailable | + + + Support + + +---------+ + | Name | Relationship | Address | Phone | + + +---------+ + | None Per Pt | ECON | Unknown | Unavailable | + + +---------+ + Care Team Providers + +------+ + | Care Business Management Associate Name | Role | Phone | + [...] | | | | | [place], | [place], [place] | | | | | [place] [address] | [address] | | | | | [phone] | [phone] | | | | | | | [...] documented as of this encounter Progress Notes Annabella Gallardo DO - 06/17/2018 2:30 PM PSTMet patient [...] PT other exercises he can practice, given [id number] status # Insomnia, sleep-onset - Sleep hygiene: - Close all blinds; all lights off; do not close door, as patient reports claustrophobia - No caffeine after 3:00PM - TV off 1 hour prior to sleep - Continue Ramelteon 8 mg qHS - Increase physical activity, as above Annabella Gallardo DO PGY-1 | Internal Medicine [facility] Associated attestation [...] foll owing additions/clarifications/exceptions: none Crystal Evans MD [facility] Division of Internal Medicine and Geriatrics documented in this encounter Plan of Treatment Not on filedocumented as of this encounter Visit Diagnoses Not on filedocumented in this encounter
--- OUTSIDE RECORDS SUMMARY | ~2019-11-25 | XMS | Encounter Summary ---
Demographics + + + | Address | [address] | | | [place] [address] | + + + | Home Phone | | + + + | Preferred Language | Unknown | + + + | Marital Status | | + + + | Taoism Affiliation | NON | + + + | Race | White | + + + | Ethnic Group | Not or | + + + Author + + + | Author | [facility] | + + + | Organization | [facility] | + + + | Address | Unknown | + + + | Phone | Unavailable | + + + Support + + +---------+ + | Name | Relationship | Address | Phone | + + +---------+ + | None Per Pt | ECON | Unknown | Unavailable | + + +---------+ + Care Team Providers + +------+ + | Care Printing Bindery Assistant Name | Role | Phone | + [...] Description | +--------+---------+ + + + | 06/26/ | Surgery | [address]A [address] | Lyla Maldonado | ERCP | | 2018 | | [address] | MD Rashida [address] | | | | | [facility] | [facility] | | | | | Hospital Admitting | [place], [place] | | | | | Desk Located on the | [address] | | | | | 9th floor | [phone] | | | | | [place], [place] | | | | | | [address] | | | +--------+---------+ + + + [...] as of this encounter Discharge Summaries Virgil Grimm MD - 06/30/2017 1:55 PM PSTFormatting of this note might be differen t from the original. [facility] Discharge Summary Discharging Provider: VIRGIL GRIMM MD Discharging Attending Physician: Dr Vic Petty PCP: Daryl Mathews MD Admission Date: 06/26/2017 Discharge Date: Hospital Stay: 4 day(s) Diagnosis: Principal Diagnosis: 1. Septic shock 2. Ascending Cholangitis Additional Diagnoses: Patients Hospital Problem List: 1) Klebsiella bacteremia 2) Aspiration pneumonitis 3) COPD 4) Hypertension Procedures: #Intubation (at OSH prior to transfer) #Central venous catheter insertion, RIJ - 06/26/17 #Arterial line, R radial - 06/26/17 Reason for Admission: #Septic Shock Hospital Course by Problem (with follow-up plan/instructions): #Septic Shock #Ascending cholangitis #Klebsiella bacteremia Presented as transfer from OSH in setting of subacute, progressive post-prandial abdominal pain. At OSH, was found to be tachypneic (did not tolerate BiPAP) and intubated prior to tra nsfer to [facility]. Workup was notable for RUQ U/S with [...] Your Medications These medications were sent to [id number] [place] [address] [place] [address] Hours: 9AM-7PM MON - FRI / 9AM-6PM [...] Thank you for entrusting your care to [facility] Internal Medicine. If you have any problems or concerns before you are able to follow up with your Primary Care Provider, please call and ask the nickel operator to page the attending physician, Vic Petty MD, wh o was caring for you at discharge. If that physician is not available, ask the nickel operator to page the physician lithopone charger for the Medical Teaching Service. Call us right away if any of the following occur: Recurrent abdominal pain Shaking chills or night sweats Other Discharge Orders and Instructions You will be called by the [facility] GI service within the next week to schedule a repeat appoint ment for ERCP and possible stent removal. Home Health Referral after Hospitalization Comments: I certify that this patient is under my care and that I, or Nurse Practitioner or Physician Preventative Maintenance Technician working with me, had a face to face encounter with this patient on 06/30/2017 On behalf of Attending Physician: Vic Petty MD I am ordering and certify that the following services are medically necessary home health s [facility] Home Health Physical Therapy Evaluate and Treat I certify that the patient is homebound based on the following clinical findings Post-hospi tono weakness, decreased strength and endurance, and tires easily with minimal exertion Follow Up: Schedule the following appointment(s) when you get home DARYL MATHEWS MD . Specialty: Internal Medicine Contact information [facility] [address] [place] [address] [address] [facility] [phone] Discharge Physical Exam: Last 24 hour min/max [...] Psych: AOx3; bright affect Lines: none VIRGIL GRIMM MD Associated attestation - Vic Petty MD [...] (HCC) 12) Acute respiratory failure with hypoxia ([facility]) Please refer to the resident discharge summary for additional details. Vic Petty MD, PhD Clinical Hospitalist and Medicine Teaching Services [facility] Pager [phone] I have spent 35 minutes with the [...] note might be different from bella landin. PHYSICIAN MEDICAL RECORDS CLERK STUDENT PROGRESS NOTE FOR EDUCATIONAL PURPOSES ONLY INPATIENT PROGRESS NOTE PATIENT INFORMATION Patient Name: William Burns Date of : 1935 Date of Admission: [...] Q2H PRN ipratropium-albuterol 3 mL Q6H PRN suhcjxcq-rtpsvtf-bhqzsfsd-zinc QID PRN oxyCODONE (immediate release) 2.5-5 mg [...] 06/29/2017 ANIONALBCOR 8 06/29/2017 Assessment/Plan In summary, William Burns is a 82 y.o. gentleman with a [...] Education The above plan was discussed with William Burns and his daughter at bedside 11/19 and [...] PT/OT evaluation. IV/Airways/Catheters: PIV Code status: FULL SHAHEEN Oconnell-S [facility] Physician Preventative Maintenance Technician Program 06/29/17 Kang Zhang MD - 06/29/2017 1:28 PM PSTGeneral Medicine Attending Progress Note Author: Vic Petty MD, PhD Hospital Day # 3 PCP: Daryl Mathews MD I personally evaluated the patient, performed [...] due to aspiration requiring intubation, transferred to [facility] MICU. Here found to have klebsiella bacteremia [...] PhD Clinical Hospitalist and Medicine Teaching Services [facility] Pager [phone] I have spent 26 minutes with the patient of which more than 50% was spent counseling the pa tient and in coordination of care. eza Xavier MD - 06/29/2017 8:23 AM PSTFormatting of [...] Intake/Output Summary (Last 24 hours) at 06/29/17 07 Last data filed at 06/29/17 06 Gross per 24 hour Intake 240 ml Output 2100 ml Net -1860 ml Weight: 85.3 kg (188 lb) (06/29/17615) Weight: 86.5 kg (190 lb 11.2 oz) (06/26/17 09) General Appearance: elderly man in no apparent [...] interval not displayed. Micro: BLOOD CULTURE WORKUP [[id number]] (Abnormal) [facility] Collected: 06/26/17 0939 Lab Status: Final result Specimen: Blood from Arterial line Updated: 06/29/17 115 CULTURE RESULT Klebsiella oxytoca (A) [facility] Narrative: Culture Report: Klebsiella oxytoca Growth in Aerobic bottle Growth in Anaerobic bottle Susceptibility Klebsiella oxytoca SUSCEPTIBILITY-FARIHA Amoxicillin/Clavulanate S Ampicillin R Cefazolin R Ceftriaxone S Ciprofloxacin S Gentamicin S Piperacillin/Tazobactam S Tobramycin S Trimethoprim/Sulfa S Imaging Interpretation: None new. Patients Hospital Problem List: Active Hospital Problems 1) *Septic shock ([facility]) 2) Choledocholithiasis 3) Acute cholangitis 4) Klebsiella sepsis ([facility]) 5) Aspiration pneumonitis ([facility]) 6) S/P ERCP 7) COPD (chronic obstructive pulmonary disease) ([facility]) 8) Essential hypertension Resolved Hospital Problems 9) Septic shock ([facility]) 10) Non-ST elevation myocardial infarction (NSTEMI), type 2 ([facility]) 11) Acute respiratory failure with hypoxia ([facility]) Assessment: William Burns is a 82 y.o. man with COPD [...] Primary Surrogate Decision Maker Sharon Rodriguez Daughter [phone] Dimas Xavier MD Internal Medicine, PGY-3 #[id number] Louis Hernandez MD - 06/28/2017 2:26 PM PSTFormatting of this note might be different from the orig inal. 24 Hour Events: --Had near resolved epigastric pain yesterday --Since 8PM, has had increased abd pain --Pending new ABD US S: --Pt reports that he had been feeling near resolved epigastric pain but worsened significan tl overnight to 9/10, lowest 6-7/10. Had this pain before his 8PM meals [...] management as outpatient (pt prefers facility near [place]) --> if develops post ERCP complications or [...] //Oliguria Has had diminished PO output on klein. Cr wnl. Unclear etiology. Oliguria without accompanying cr = "at risk for kidney injury" rather than aki injury --BMP in AM Consultants:GI Feeding: ADAT Analgesia: Acetaminophen Thromboprophylaxis: LMWH SC Head of Bed: Ad more Ulcer Prophylaxis:home PPI Glycemic control:SSI MobilityGoal:Bed rest Lines/Tubes/Drains/Airways: PIV Collin Horne - 06/28/2017 7:47 AM PST PHYSICIAN MEDICAL RECORDS CLERK STUDENT PROGRESS NOTE FOR EDUCATIONAL PURPOSES ONLY INPATIENT PROGRESS NOTE PATIENT INFORMATION Patient Name: William Burns Date of : 1935 Date of Admission: [...] Q2H PRN ipratropium-albuterol 3 mL Q6H PRN xcslukup-zfexjhm-ohqxiirl-zinc QID PRN oxyCODONE (immediate release) 2.5-5 mg [...] 06/28/2017 ANIONALBCOR 8 06/28/2017 Assessment/Plan In summary, William Burns is a 82 y.o. gentleman with a [...] on klebsiella cultures for sensitivity. Spoke with Certified Ski Patroller at [facility] @1330, N o sensitivity results yet from [...] Education The above plan was discussed with William Burns and his daughter at bedside 11/19 and [...] ppx: n/a IV/Airways/Catheters: PIV Code status: FULL SHONDA OconnellS [facility] Physician Preventative Maintenance Technician Program 06/28/17 Alisha Rai M D - [...] 86 87 78 HCO3 22 24 23 RUGXL3REF 24 25 24 I0IFULIK 96.4 97.0 96.8 FIO2 0.80 0.25 0.21 [...] det erioration in the patient's condition). ALISHA MAYNARD MD [facility] [address] [place] [address] aCmilo Amaya MD - 11/2017 6:00 AM PST [facility] MEDICAL ICU - PROGRESS NOTE Hospital Day: 1 | ICU Day: 1 ID/CC: Aki Burns is a 82 y.o. man admitted to [...] mmHg Max: 125 mmHg HR 63 (06/27/17 050) | Pulse Min: 40 Max: 152 | Cardiac Rhythm: Normal Sinus Rhythm (12/05 040) Temp 36.5 C (97.7 F) (06/27/17 050) | Temp Min: 35.8 C (96.4 F) Max: 36.5 C (9 7.7 F) RR 22 (06/27/17 0500) | Resp Min: 15 Max: 26 SpO2 96 % (06/27/17 050) | SpO2 Min: 88 % Max: 100 % O2 Device Endotracheal tube (06/27/17 050) | Volume AC (06/27/17 030) Ventilator Settings Vt: 6.5 mL/Kg (459.6 mL) RR: 22 bpm [place] BW: 70.7 kg FiO2 21 fraction of [...] (no delirium) RASS Scale -1 CPOT 0 (06/27/17 0500) Intake/Output Summary (Last 24 hours) at 06/27/17 [...] 87 78 HCO3 -- 22 24 23 FYC4UMY9 -- 108* 348 371 VBGPH 7.27* -- [...] (ADD-vantage) 3.375 g i ntravenous Q8H Stopped (06/27/17410) Current Facility-Administered Medications Medication Dose Route Frequency [...] Q15MI N PRN Assessment & Plan: Aki Burns is a 82 y/o M w/ hx [...] Primary Surrogate Decision Maker Sharon Rodriguez Daughter [phone] This patient was staffed with Dr. Maynard, attending physician. Camilo Arreguin MD 06/27/2017, 6:01 AM Template created by KENNEDY 2017 A M Lyla Cerna MD - 06/26/2017 4:38 PM PSTBrief GI Procedure Note 06/26/2017 GI procedure performed. [...] in 1 month for final duct clearance Lyla Maldonado MD Gastroenterology Pager [phone] - Virginia Cerna MD - 06/26/2017 4:38 PM PSTFormatting of this note might be different from the origi nal. PRE PROCEDURE NOTE: MR# [id number] Subjective: William Burns is a 82 y.o. male who presents [...] 4 hours. Concern for choledocholithiasis. Transferred [facility] this morning. Has history of COPD and [...] Anesthesiology present and reviewed status of patient [facility] GI attending. Agreed to proceed with ERCP. [...] data in the 24 hours ending 06/26/17 0910 No intake or output data since the admission date ending 06/26/17 0910 I personally reviewed the laboratory and radiology data from the last 24 hours. Up to Last 5 ABGs in 72 hours: No results for input(s): PH, PCO2, PO2, HCO3, BFVPB8WQV, V4HFCOXG, M7ZWMXGSB, FIO2 in the l ast 72 hours. [...] det erioration in the patient's condition). ALISHA MAYNARD MD [facility] [address] [place] [address] documented in this enco unter Plan of Treatment Not on filedocumented as [...] | + +--------+ + + + | GS-JT-TNZ-HB,POC RT | Urgent | 06/26/2017 | | [...] + + + + + + | LILIANA-KAJAL | 465 | ms | [facility] [...] + + + | ECG | Short OR interval | | [facility] | | [...] + | [facility] | [address] | [place], [place] | | | CARDIOLOGY | [address] | [address] | | + + + + + [...] | + + + + + | [facility] | [address] | [place] [address] | | | SERVICES, CORE | RICHARD [...] | + + + + + | [facility] | [address] | [place] [address] | | | SERVICES, CORE | [address] [...] | | | LABORATORY | | | TAIWANESE | | | SERVICES, | | | [...] | + + + + + | [facility] | [address] | [place] [address] | | | SERVICES, CORE | RICHARD [...] | [facility] | [address] | [place] [address] | | | SERVICES, CORE | PARK [...] Note | + + | Service Account, TapSurge In Interface - 06/28/2017 5:02 PM PST [...] [facility] | [address] | [place], [place] | | | DILAN TURNER OF CARE | [facility] | [address] | | | TESTS | | | [...] | + + + + + | [facility] | [address] | [place] [address] | | | SERVICES, CORE | PARK [...] LABORATORY | [address] | [place] [address] | | | SERVICES, CORE | RICHARD [...] | | | LABORATORY | | | TAIWANESE | | | SERVICES, | | | [...] | + + + + + | [facility] | [address] | [place] [address] | | | SERVICES, CORE | [address] | | | + + + + + MAGNESIUM, PLASMA (06/28/2017 3:17 AM PST) + +-------+ + + + | Component | Value | Ref Range | Performed | Pathologist | | | | | At | Signature | + +-------+ + + + | MAGNESIUM,P | 2.2 | 1.6 - 2.6 mg/dL | [facility] | | | L[facility]MA | | | LABORATORY | | | | | | SARA, | | | | | | CORE | | + +-------+ + + + + + | Specimen | + + | Blood - Blood | | (substance) | + + + + + | Narrative | Performed At | + + + | Reference range change effective 01/02/17. | [facility] | | | LABORATORY | | | SERVICES, CORE | + + + + + + + + | Performing | Address | City/State/Zipcode | Phone Number | | Organization | | | | + + + + + | [facility] | [address] | [place] [address] | | | SERVICES, CORE | RICHARD [...] (H) | 70 - 99 mg/dL | [facility] | | | GLUCOSE, | | [...] + + | [facility] | [address] | [place], [place] | | | DILAN TURNER OF CARE | [address] | [address] | | | TESTS | | | [...] | + + | Service Account, Shana [employer] In Interface - 06/28/2017 10:17 AM PST [...] + + | Performing | Address | City/State/[facility] | Phone Number | | Organization | [...] + | [facility] | [address] | [place], [place] | | | DILAN TURNER OF CARE | [address] | [address] | | | TESTS | | | [...] [facility] | [address] | [place], [place] | | | DILAN TURNER OF [place] | [address] | [address] | | | TESTS | | | [...] | | | LABORATORY | | | TAIWANESE | | | SERVICES, | | | [...] | + + + + + | [facility] | [address] | [place] [address] | | | SERVICES, CORE | RICHARD [...] | + + + + + | [facility] | [address] | [place] [address] | | | SERVICES, CORE | RICHARD [...] | + + + + + | [facility] | [address] | [place] [address] | | | SERVICES, CORE | [address] | | | + + + + + CULTURE, BLOOD BACTI & YEAST [facility] (06/27/2017 8:34 AM PST) + + + [...] + + + + + | [facility] | [address] | [place] [address] | | | SARA, YOKASTA | [address] | | | + + + + + CULTURE, BLOOD BACTI & YEAST [facility] (06/27/2017 8:16 AM PST) + + + [...] | + + + + + | [facility] | [address] | [place] [address] | | | SERVICES, CORE | RICHARD [...] (H) | 70 - 99 mg/dL | [facility] - | | | GLUCOSE, | | [...] + + + | [facility] | [address] | [place], [place] | | | [facility] | [address] | [address] | | | TESTS | | | [...] LABORATORY | [address] | [place] [address] | | | SERVICES, CORE | [address] [...] [facility] | | | GRAVITY | Specific [place] | | LABORATORY | | | | [...] | | panel if clinically indicated. | [address] [facility]UIZ | + + + + + + + + | Performing | Address | City/State/Zipcode | Phone Number | | Organization | | | | + + + + + | [facility] | [address] | [place] [address] | | | YOKASTA RUIZ | [address] | | | + + + + + ERCP (06/27/2017 6:38 AM PST) + + | Specimen | + + | | + + + + + | Narrative | Performed At | + + + | MRN: | [facility] | | [id number] Date: 06/27/2017Patient Name: William Nair #: | ENDOSCOPY | | [id number] of : 5CSN: [id number] Type: | | | InpatientRoom: SORProcedure: ERCPIndications: | | | For therapy of ascending cholangitis; 82 yo M with | | | sepsis, elevated LFTs and US showing mary dil and 1.3 cm | | | CBDProviders: BRINTHA | | | Thompson MALDONADO MD (Doctor), JORDY SOLANO, | | | RN (Nurse), ESTELA DAMIAN RN (Professor Of English)Referring MD: | | | Requesting Provider: Medicines: [...] The | | | Olympus TJF-Q180V Duodenoscope #[id number] was | | | introduced through the [...] with acute | | | cholangitis. The program trainer film was normal. The esophagus was | [...] we were in SOR, images were not availableBRESSENCE K | | | MD ERICA06/27/2017 6:48:17 AMNumber of Addenda: 0Note Initiated On: | | | 06/27/2017 6:38 [facility] Letter to: DARYL MATHEWS MD | | |06/27/2017 6:48:17 AM | | |Number of Addenda: 0 | | |Note Initiated On: 06/27/2017 6:38 AM | | | Letter to: | | | DARYL MATHEWS MD | | + + + + [...] + | MRN: | [facility] | | [id number] Date: 06/27/2017Patient Name: William Nair #: | ENDOSCOPY | | [id number] of : 1935SN: [id number] Type: | | | InpatientRoom: SORProcedure: ERCPIndications: | | | For therapy of ascending cholangitis; 82 yo M with | | | sepsis, elevated LFTs and US showing mary dil and 1.3 cm | | | CBDProviders: BRINTHA | | | Thompson MALDONADO MD (Doctor), JORDY SOLANO, | | | RN (Nurse), ESTELA DAMIAN RN (Professor Of English)Referring MD: | | | Requesting Provider: Medicines: [...] The | | | Olympus TJF-Q180V Duodenoscope #[id number] was | | | introduced through the [...] with acute | | | cholangitis. The program trainer film was normal. The esophagus was | [...] remove stent | | | and clear ductBRINTHA Rashida MALDONADO, | | | 06/27/2017 6:48:17 AMNumber of Addenda: 0Note Initiated On: 06/27/2017 | | | 6:38 [facility] Letter to: DARYL MATHEWS MD | | |06/27/2017 6:48:17 AM | | |Number of Addenda: 0 | | |Note Initiated On: 06/27/2017 6:38 AM | | | Letter to: | | | DARYL MATHEWS MD | | + + + + [...] packs/day): | LABORATORY | | 8-9% | SERVICES, CORE | + + + + + + + + | Performing | Address | City/State/Zipcode | Phone Number | | Organization | | | | + + + + + | [facility] | [address] | [place] [address] | | | SERVICES, CORE | [address] | | | + + + + + MAGNESIUM, PLASMA (06/27/2017 12:43 AM PST) + +-------+ + + + | Component | Value | Ref Range | Performed | Pathologist | | | | | At | Signature | + +-------+ + + + | MAGNESIUM,P | 2.3 | 1.6 - 2.6 mg/dL | [facility] | | | [facility] | | | [...] LABORATORY | [address] | [place] [address] | | | SARA, YOKASTA | RICHARD [...] | + + + + + | [facility] | [address] | [place] [address] | | | SERVICES, YOKASTA | RICHARD [...] | | | LABORATORY | | | TAIWANESE | | | SERVICES, | | | [...] | Adult glucose reference range change effective 11-29-. GFR is | [facility] | | estimated [...] | + + + + + | [facility] | [address] | [place] [address] | | | SERVICES, YOKASTA | RICHARD [...] + + + + + + | LILIANA-KAJAL | 492 | ms | [facility] [...] + + | ECG | Borderline prolonged [place] | | [facility] | | | [...] OF | [address] | [place], [place] | | | CARDIOLOGY | [address] | [address] | | + + + + + [...] Note | + --------+ | Service Account, RadiOpen[employer] Res In Interface - 06/28/2017 9:20 AM [...] | + + + + + | [facility] | [address] | [place] [address] | | | SERVICES, CORE | RICHARD [...] (H) | 70 - 99 mg/dL | [facility] - | | | GLUCOSE, | | [...] + | [facility] | [address] | [place], [place] | | | DILAN TURNER OF CARE | [address] | [address] | | | TESTS | | | [...] Note | + + | Service Account, TapSurge In Interface - 06/27/2017 9:07 AM PST [...] + + + + | [facility] | [address] | [place], [place] | | | DILAN TURNER OF [facility] | [address] | [address] | | | TESTS | | | [...] + + + + | ERIKA | 473 | ms | [facility] [...] ECG | Electronically signed | | [facility] | | | IMPRESSION | by: ASHWINI [...] + | [facility] | [address] | [place], [place] | | | CARDIOLOGY | [address] | [address] | | + + + + + ART LINE (06/26/2017 5:10 PM PST) + + + | Narrative | Performed At | + + + | Reid Hu MD,PhD 06/26/2017 9:12 AM ARTERIAL LINE | | | Performed by: REID HU Authorized by: ALISHA MAYNARD | | | ART Line Insertion Procedure [...] correct patient, procedure, | | | equipment, student support services director and site/side marked as required. | | [...] | | 12:08 PM | | | | | | | | | | | | | | | Pathology ResidentMoreno Valley | | | | | | Luois Fritz MD PhD / | | | [...] number | | | | | | [id number].A. Bile duct, | | | | | [...] | + + + + + | [facility][1] | [address] | [place] [address] | | | PATHOLOGY | [address] | | | + + + + + CVL (06/26/2017 4:21 PM PST) + + + | Narrative | Performed At | + + + | Abiodun Garcia MD 06/26/2017 3:22 PM CENTRAL LINE Performed by: | | | ABIODUN GARCAI Authorized by: ALISHA MAYNARD Central Venous Catheter | | | Insertion [...] correct patient, | | | procedure, equipment, student support services director and site/side marked as required. | | [...] modified Seldinger technique (a | | | ftjiovjd-dnaq-tgz-eilrvf-umfp-hleu-fxbazex-tug-qgksmqfy) was used for | | | vessel [...] | Attending physically present: Yes Fellow name: Abiodun Garcia Monitoring | | | The patients vital [...] LABORATORY | [address] | [place] [address] | | | YOKASTA RUIZ | [address] | | | + [...] | + + + + + | [facility] | [address] | [place] [address] | | | SERVICES, CORE | RICHARD [...] | + + + + + | [facility] | [address] | [place] [address] | | | SERVICES, CORE | RICHARD [...] LABORATORY | [address] | [place] [address] | | | SERVICES, YOKASTA | [address] | | | + [...] | | | LABORATORY | | | TAIWANESE | | | SERVICES, | | | [...] Education Program. Estimated GFR Interpretive Information: | [facility] | | <60 mL/min/1.73 sq m Chronic [...] | + + + + + | [facility] | [address] | [place] [address] | | | SERVICES, CORE | [address] [...] + + + + | QTC-BAZETT | 486 | ms | [facility] [...] + | [facility] | [address] | [place], [place] | | | CARDIOLOGY | [address] | [address] | | + + + + + [...] LABORATORY | [address] | [place] [address] | | | SERVICES, CORE | [address] [...] | + + + + + | [facility] | [address] | [place] [address] | | | SERVICES, CORE | RICHARD [...] | + + + + + | [facility] | [address] | [place] [address] | | | SERVICES, CORE | [address] | | | + + + + + X-RAY ABD LTD FEEDING TUBE EVAL (06/26/2017 11:16 AM PST) + + | Specimen | + + | | + + + + + | Narrative | Performed At | + + + | INDICATION: Study to evaluate feeding tube position TECHNIQUE: | [facility] | | Single AP view of the [...] Service Account, Shana Le In Interface - 06/26/2017 12:57 PM PST [...] | + + + + + | [facility] | [address] | [place] [address] | | | SERVICES, CORE | RICHARD [...] Note | + ----+ | Service Account, TapSurge In Interface - 06/26/2017 12:57 PM PST [...] Note | + + | Service Account, TapSurge In Interface - 06/26/2017 12:55 PM PST [...] Account, Shana Res In Interface - 06/26/2017 12:53 PM [...] Account, Radiant Res In Interface - 06/26/2017 10:12 AM [...] LABORATORY | [address] | [place] [address] | | | SERVICES, | [address] [...] LABORATORY | [address] | [place] [address] | | | SERVICES, | [address] [...] | + + + + + | [facility] | [address] | [place] [address] | | | SERVICES, | [address] [...] + + + + + + | QTC-BAEDETT | 528 | ms | [facility] [...] + + + | ECG | Prolonged OR interval | | [facility] | | [...] + | [facility] | [address] | [place], [place] | | | CARDIOLOGY | [address] | [address] | | + + + + + [...] | | Growth in Anaerobic bottle | [place] | + + + + + + + + | Performing | Address | City/State/Zipcode | Phone Number | | Organization | | | | + + + + + | [facility] - | [address] | [place] [address] | | | [place] | | | [...] + | Klebsiella oxytoca | Amoxicillin/Clavulan | SUSCEPTIBILITY-FARHIA | Sensitive | | | ate | [...] + | [facility] - | [address] | [place] [address] | | | [place] | | | | + + + + + CULTURE, BLOOD BACTI & YEAST BETTINA (06/26/2017 9:39 AM PST) + + + [...] | + + + + + | [facility] | [address] | [place] [address] | | | YOKASTA RUIZ | [address] | | | + [...] | + + + + + | [facility] | [address] | [place] [address] | | | SERVICES, CORE | RICHARD [...] | + + + + + | [facility] | [address] | [place] [address] | | | SERVICES, CORE | [address] | | | + + + + + CULTURE, BLOOD BACTI & YEAST [facility] (06/26/2017 9:39 AM PST) + + + [...] | + + + + + | [facility] | [address] | [place] [address] | | | SERVICES, CORE | [address] [...] | + + + + + | [facility] | [address] | [place] [address] | | | SERVICES, CORE | [address] | | | + + + + + TROPONIN I, PLASMA (06/26/2017 9:30 AM PST) + +-------+ + + + | Component | Value | Ref Range | Performed | Pathologist | | | | | At | Signature | + +-------+ + + + | TROPONIN I | 0.33 | <0.80 ng/mL | [facility] | | | | | | LABORATORY [...] | + + + + + | [facility] | [address] | [place] [address] | | | SERVICES, CORE | RICHARD [...] [facility] | [address] | [place] [address] | | | SERVICES, CORE | [address] [...] | | | LABORATORY | | | TAIWANESE | | | SERVICES, | | | [...] + + | [facility] | [address] | [place] [address] | | | SERVICES, CORE | [address] [...] | + + + + + | [facility] | [address] | [place] [address] | | | SERVICES, CORE | [address] | | | + + + + + IW-YI-EKZ-HB,POC RT (06/26/2017 8:55 AM PST) + + + + + + | Component | Value | Ref Range | Performed | Pathologist | | | | | At | Signature | + + + + + + | HCO3 | 22.4 | 22 - 28 mmol/L | [facility] - | | | VENOUS, [...] [facility] | | | | | | [place] | | | | | | OF CARE | | | | | | TESTS | | + + + + + + | RODDY | 1.08 (L) | 1.14 - 1.32 | [facility] - | | | IONIZED | | mmol/L | [facility] | | | CA,WHOLE | | | [place] | | | BLD,POC | | | OF CARE | | | | | | TESTS | | + + + + + + | HEMOGLOBIN, | 12.3 (L) | 13.5 - 17.5 | [facility] - | | | POC | | g/dL | [facility] | | | | | | [facility] | | | | | | OF CARE | | | | | | TESTS | | + + + + + + | LACTATE POC | 3.0 (H) | 0.5 - 2.2 | [facility] - | | | | | mmol/L | [facility] | | | | | | [place] | | | | | | OF CARE | | | | | | TESTS | | + + + + + + | FIO2 | 80.0 | | [facility] - | | | VENOUS, POC | | | [facility] | | | | | | [place] | | | | | | OF CARE | | | | | | TESTS | | + + + + + + | PAT TEMP | 36.6 | | [facility] - | | | IVETT ESTEVE[facility] | | | [facility] | | | [...] [facility] | [address] | [place], [place] | | | [facility] OF CARE | [address] | [address] | | | TESTS | | | [...] +--------+------+------+ +---+---+ | | | +---+---+ + +-------+ [...] | | | + +---+ + +-------+ +-------+---+---------+ | enoxaparin (LOVENOX) injection [...] | | | 1352, Until 06/30/17 at 2032, | | | for severe break through pain | | + +---+ | | | + +---+ + +-------+ +------+---+---+ | ipratropium-albuterol (DUO-NEB) | [...] | | | 0838, Until 06/30/17 at 3, | | | skin irritation, redness, | | | breakdown | | + +---+ | | | + +---+ + +-------+ +-------+---+---+ | omeprazole (PRILOSEC) capsule | Given | 06/30/19 | 40 mg | | | | 40 mg 40 mg, oral, BEFORE | | 18 6:02 | | | | | BREAKFAST, First dose on Sun | | AM [...] | | | | | NEEDED, Starting [facility] 06/28/17 at | | | | [...] | | | | | 06/29/17 at 1026, Until Sat | | | [...] | | | | dose on Myesha 06/28/17 at 2100, Until | | PM PST [...] | | | | | 06/29/17 at 1215, Until | | | | [...]
--- OUTSIDE RECORDS SUMMARY | ~2019-11-25 | XMS | Encounter Summary ---
Demographics + + + | Address | [address] | | | [place] [address] | + + + | Home Phone | | + + + | Preferred Language | Unknown | + + + | Marital Status | | + + + | Mandaeism Affiliation | Unknown | + + + | Race | Unknown | + + + | Ethnic Group | Unknown | + + + Author + + + | Author | [facility] | | | and [place] | + + + | Organization | [facility] | | | and [place] | + + + | Address | Unknown | + + + | Phone | Unavailable | + + + Support + + +---------+ + | Name | Relationship | Address | Phone | + + +---------+ + | eHrmelinda Javed | ECON | Unknown | | + + +---------+ + Care Team Providers + +------+ + | Care Turbo Generator Oiler Name | Role | Phone | + [...] | | | | | | | MD ERCP DX | | | | | | | COLLECTION | | | | | | | SPECIMEN | | | | | | | BRUSHING/WAS | | | | | | | JOSE MD | | | | | | | ERCP | | | | | | | BILIARY/PANC | | | | | | | DUCT STENT | | | | | | | EXCHANGE | | | | | | | W/DIL&WIRE | | | | | | | MD | | | [...] + + + + | 08/14/ | Anesthesia | [facility]ANE[facility]AYCE[facility]Alphonso MISHRA | Tono Dominguez | | | 2018 | Event | [facility] | P, MD [address] | | | | | [address] | [place], [place] | | | | | [place], [place] | [address] | | | | | [address] | [phone] | | | | | [phone] | | | +--------+ + + + + Anesthesia Record + + + + + | Procedure Name | Responsible | Anesthesia Start | Anesthesia Stop Time | | | Anesthesiologist | Time | | + + + + + | RAMON (N/A Remy) | Tono Dominguez, | 08/14/17 1309 | 08/14/17 1414 | | | MD | | | + + + + + +----+---+ + + | Da | T | Event | Comment | | te | i | | | | | m | | | | | e | | | +----+---+ + + | 03 | 1 | An Checkout | Pre-use anesthesia machine/equipment checkout. Anesthesia Ready. | | /2 | 2 | | | | 7/ | 5 | | | | 20 | 0 | | | | 18 | | | | +----+---+ + + | | 1 | | | | | 2 | | | | | 5 | | | | | 9 | | | +----+---+ + + | | 1 | An Start | | | | 3 | Data | | | | 0 | | | | | 1 | | | +----+---+ + + | | 1 | An Start | Room ready, anesthesia equipment checked, essential drugs & | | | 3 | | equipment available. Patient Identity checked, anesthesia plan | | | 0 | | explained and consent obtained. Patient transported to OR, | | | 9 | | Monitors applied. Reassessment prior to anesthesia | | | | | induction/procedure. | +----+---+ + + | | 1 | an eddy now | Enter ENDO 2. | | | 3 | | | | | 1 | | | | | 1 | | | +----+---+ + + | | 1 | AN | Per surgeon request | | | 3 | Antibiotic | | | | 1 | declined | | | | 2 | | | +----+---+ + + | | 1 | Preoxygenat | Oxygen administered, patient sedated, ventilating spontaneously. | | | 3 | ed | | | | 1 | | | | | 6 | | | +----+---+ + + | | 1 | An | | | | 3 | Induction | | | | 2 | | | | | 0 | | | +----+---+ + + | | 1 | First | | | | 3 | Inc/Proc St | | | | 2 | | | | | 1 | | | +----+---+ + + | | 1 | An | Smooth IV induction, easy mask airway. LMA placed and well | | | 3 | Intubation | seated. Breathing Circuit attached to LMA. BSEB/ETCO2 | | | 2 | | (auscultation and capnography) and placement confirmed. | | | 1 | | | +----+---+ + + | | 1 | Pre-Procedu | | | | 3 | ral Timeout | | | | 2 | Completed | | | | 3 | | | +----+---+ + + | | 1 | an eddy now | ERCP | | | 3 | | | | | 2 | | | | | 4 | | | +----+---+ + + | | 1 | an eddy now | PACU | | | 4 | | | | | 1 | | | | | 0 | | | +----+---+ + + | | 1 | an stop | | | | 4 | data | | | | 1 | | | | | 0 | | | +----+---+ + + | | 1 | An Stop | Patient handed off to recovery nurse. | | | 1 | | | | | 4 | | | +----+---+ + + +------+ | Meds | +------+ + + + | Name | Total | + + + | propofol | 160 mg | + + + | propofol | 386.55 mg | + + + | lactated ringers (LR) infusion | 1,400 mL | + + + + + | Name | + + | O2 Flow Rate (L/Min) | + + + + | No blood administrations on file. | + + +--------+ + + + | Type | Details | Placement | Removal | +--------+ + + + | Periph | 08/14/17; 1152; Left; Forearm; | 08/14/17 1152 by | 08/14/17 1512 by Juanpablo | | tomil | [id number] catheter system; | Precious Remy RN | Betty Rey RN | | IV | 18 gauge; Hematology, Chemistry, | | | | | Coagulation; 08/14/17; 1512 | | | +--------+ + + + | Airway | Placement Date: 08/14/17; | 08/14/17 1321 by | 08/14/17 1512 by Juanpablo | | | Placement Time: 1320 (created via | Tono Dominguez, | Betty Rey RN | | | procedure documentation); Mask | MD | | | | Ventilation: EZ; Attempts: 1; | | | | | Airway Type: laryngeal mask; | | | | | Size: 5 (Gastro-LMA); Trauma: | | | | | none; Placement Check: exhaled | | | | | CO2 detection device, bilateral | | | | | chest rise, breath sounds equal | | | | | bilaterally; Removal Date: | | | | | 08/14/17; Removal Time: 1511; | | | | | Additional Comments: Smooth IV | | | | | induction. LMA placed and well | | | | | seated. Secured in place. | | | | | Breathing Circuit attached to | | | | | LMA. BSEB/ETCO2 (auscultation | | | | | and capnography) and placement | | | | | confirmed. | | | +--------+ + + + documented in this encounter Social History + + + +--------+ + [...] + + documented as of this encounter OR Notes Anesthesia Postprocedure Evaluation - Tono Dominguez MD - 08/14/2017 2:50 PM PDTForm atting of this note might be different from the original. ANESTHESIA POSTANESTHESIA EVALUATION William Burns 82 y.o. male 1935 [id number] Procedure(s) ERCP (N/A Mouth) Cooperates? Yes Mental Status Performs simple tasks. Respiratory Satisfactory - Airway patent (self maintained). Cardiovascular Satisfactory - Blood pressure and heart rate acceptable Temperature Satisfactory Pain Satisfactory N/V Control Satisfactory Hydration Satisfactory - No signs of dehydration Complications None apparent Vitals: 08/14/17 1415 08/14/17 1420 08/14/17 1425 BP: 163/85 175/80 167/77 Pulse: 55 63 59 Temp: Resp: 22 22 13 SpO2: 100% 98% 98% Electronically signed by Tono Dominguez MD 08/14/2017 18:[address] [facility] nesthesia Procedure Notes - Tono Dominguez MD - 08/14/2017 1: 32 PM PDTAssociated Order(s): ANE AIRWAY NOTEAnesthesia Airway Placement 08/14/2017 13:21 Preprocedure check: patient identified, oxygen, airway assessed, patient reassessment prior to induction, airway equipment checked and suction Mask ventilation: easy Attempts: 1 Airway type: laryngeal mask Size: 5 (Gastro-LMA) Cuffed: cuffed Route, reference point: center of mouth Tube secured with: adhesive tape Trauma: none Tube placement verification: carbon dioxide detection, equal bilateral breath sounds and bi lateral chest rise Performing provider: TONO DOMINGUEZ Comments: Smooth IV induction. LMA placed and well seated. Secured in place. Breathing Circuit attached to LMA. BSEB/ETCO2 (auscultation and capnography) and placement confirmed. Electronically Signed by: Tono Dominguez MD [facility] date/time : 08/14/2017 13:32 nesthesia Prepro cedure Evaluation - Tono Dominguez MD - 08/13/2017 2:34 PM PDT ANESTHESIA PREANESTHESIA EVALUATION William Burns 82 y.o. male 1935 [id number] Procedure(s): ERCP (N/A Mouth) Review of Systems / Med History Cardiovascular (+) hypertension (+) Dysrhythmias: atrial fibrillation Pulmonary (+) COPD, smoking history Neurology (+) back pain Gastrointestinal/Hepatic (+) reflux/GERD, hyperlipidemia Physical Exam Airway MP II, Neck: full ROM, extends >30 degrees. Jaw protrusion limited. Anesthesia Plan ASA 3 Type: TIVA. Induction: Intravenous. Potential problems: None anticipated, none anticipated. Monitors: Standard ASA monitors. Consent statement:Anesthetic plan, alternatives, risks and benefits discussed with patient. Risks discussed included (but were not limited to): sore throat, pain, disability, perioper ative CV events, infection, muscle aches, voice injury, drug reaction, heart problems, nause a, respiratory events, . Consenting person understands and agrees to proceed. 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 Electronically Signed by: Tono Dominguez MD [facility] date/time: 08/13/2017 14:34 documented in thi s encounter Plan of Treatment Not on filedocumented as of this encounter Procedures + +--------+ + + + | Procedure Name | Priori | Date/Time | Associated Diagnosis | Comments | | | ty | | | | + +--------+ + + + | ANE AIRWAY NOTE | Routin | 08/14/2017 | | Results for this | | | e | 1:32 PM | | procedure are in the | | | | PDT | | results section. | + +--------+ + + + documented in this encounter Results Anesthesia Airway Note (08/14/2017 1:32 PM PDT) + + + | Narrative | Performed At | + + + | Tono Dominguez MD 08/14/2017 13:32 Anesthesia Airway | | | Placement 08/14/2017 13:21 Preprocedure check: patient identified, | | | oxygen, airway assessed, patient reassessment prior to induction, | | | airway equipment checked and suction Mask ventilation: easy | | | Attempts: 1 Airway type: laryngeal mask Size: 5 (Gastro-LMA) | | | Cuffed: cuffed Route, reference point: center of mouth Tube secured | | | with: adhesive tape Trauma: none Tube placement verification: carbon | | | dioxide detection, equal bilateral breath sounds and bilateral | | | chest rise Performing provider: TONO DOMINGUEZ Comments: | | | Smooth IV induction. LMA placed and well seated. Secured in place. | | | Breathing Circuit attached to LMA. BSEB/ETCO2 (auscultation and | | | capnography) and placement confirmed. Electronically Signed by: | | | Tono Dominguez MD | | | [facility] date/time: 08/14/2017 13:32 | | + + + + + | Procedure Note | + + | Tono Dominguez MD - 08/14/2017 1:32 PM PDT Anesthesia Airway | | Placement08/14/2017 13:21Preprocedure check: patient identified, oxygen, airway assessed, | | patient reassessment prior to induction, airway equipment checked and suctionMask | | ventilation: easyAttempts: 1Airway type: laryngeal maskSize: 5 (Gastro-LMA)Cuffed: | | cuffedRoute, reference point: center of mouthTube secured with: adhesive tapeTrauma: | | noneTube placement verification: carbon dioxide detection, equal bilateral breath sounds | | and bilateral chest risePerforming provider: TONO DOMINGUEZ PComments: Smooth IV | | induction.LMA placed and well seated. Secured in place.Breathing Circuit attached to | | LMA. BSEB/ETCO2 (auscultation and capnography) and placement confirmed.Electronically | | Signed by: Tono Dominguez MD [facility] date/time: 08/14/2017 | | 13:32 | |Trauma: none | |Tube placement verification: carbon dioxide detection, equal bilateral breath sounds and bi lateral chest rise | |Performing provider: TONO DOMINGUEZ | | | |Comments: Smooth IV induction. | |LMA placed and well seated. Secured in place. | |Breathing Circuit attached to LMA. | |BSEB/ETCO2 (auscultation and capnography) and placement confirmed. | | | |Electronically Signed by: Tono Dominguez MD [facility] date/time : 08/14/2017 13:32 | | | + + documented in this encounter Visit Diagnoses Not on filedocumented in this encounter Administered Medications + +---------+ +------+------+------+ | Medication Order | MAR | Action | Dose | Rate | Site | | | Action | Date | | | | + +---------+ +------+------+------+ | lactated ringers (LR) infusion | New Bag | 08/15/19 | | | | | at 100 mL/hr, Intravenous, | | 18 1:20 | | | | | CONTINUOUS, Starting 08/14/17 | | PM PDT | | | | | at 1215, Pre-op | | | | | | + +---------+ +------+------+------+ +---------+ +---+---+---+ | New Bag | 08/15/19 | | | | | | 18 12:00 | | | | | | PM PDT | | | | +---------+ +---+---+---+ +---+---+ | | | +---+---+ + +-------+ +-------+---+---+ | propofol (DIPRIVAN) injection | Given | 08/15/19 | 40 mg | | | | Intravenous, PRN, Starting Tue | | 18 1:21 | | | | | 08/14/17 at 1316, Anesthesia | | PM PDT | | | | | Intra-op | | | | | | + +-------+ +-------+---+---+ +-------+ +-------+---+---+ | Given | 08/15/19 | 40 mg | | | | | 18 1:20 | | | | | | PM PDT | | | | +-------+ +-------+---+---+ | Given | 08/15/19 | 20 mg | | | | | 18 1:19 | | | | | | PM PDT | | | | +-------+ +-------+---+---+ +---+---+ | | | +---+---+ + + + + +-------+---+ | propofol (DIPRIVAN) injection | Rate/Dos | 08/15/19 | 100 | 47.8 | | | Intravenous, CONTINUOUS PRN, | e Change | 18 1:30 | mcg/kg/m | mL/hr | | | Starting 08/14/17 at 1321, | | PM PDT | in | | | | Anesthesia Intra-op | | | | | | + + + + +-------+---+ +---------+ + +-------+---+ | New Bag | 08/15/19 | 150 | 71.7 | | | | 18 1:21 | mcg/kg/m | mL/hr | | | | PM PDT | in | | | +---------+ + +-------+---+ +---+---+ | | | +---+---+ documented in this encounter"
--- OUTSIDE RECORDS SUMMARY | ~2019-11-25 | XMS | Encounter Summary ---
Demographics + + + | Address | [address] | | | [place] [address] | + + + | Home Phone | | + + + | Preferred Language | Unknown | + + + | Marital Status | | + + + | Roman Catholic Affiliation | Unknown | + + + | Race | Unknown | + + + | Ethnic Group | Unknown | + + + Author + + + | Author | [facility] | | | and [place] | + + + | Organization | [facility] | | [...] Team Providers + +------+ + | Care Livestock Sales Representative Name | Role | Phone | [...] 2017 | | GASTROENTEROLOGY | MD Maggie Manning | | | | | [address] TREASURE | [place]. | | | | | [address] | [place] [address] | | | | | [address] | | | | | | [phone] | | | +--------+ + + + [...]
--- OUTSIDE RECORDS SUMMARY | ~2019-11-25 | XMS | Encounter Summary ---
Demographics + + + | Address | [address] | | | [place] [address] | + + + | Home Phone | | + + + | Preferred Language | Unknown | + + + | Marital Status | | + + + | Restorationist Affiliation | Unknown | + + + | Race | Unknown | + + + | Ethnic Group | Unknown | + + + Author + + + | Author | [facility] | | | and [place] | + + + | Organization | [facility] | | [...] Team Providers + +------+ + | Care Grain Elevator Operator Name | Role | Phone | [...] + + | 08/14/ | Hospital | [facility] | Jamey Hdz | | | 2018 | Encounter | MED CTR XRAY [address] | MD Sarkis [address] | | | | | [place] | [address] [place] | | | | | [place] [address] | [place] [address] | | | | | [phone] | [phone] | | | | | | | [...] + + documented in this encounter Results [place] ERCP (08/14/2017 2:13 PM PDT) + [...] Juan Jose, Rad Results In - 08/14/2017 2:32 PM PDT [...]
--- OUTSIDE RECORDS SUMMARY | ~2019-11-25 | XMS | Encounter Summary ---
Demographics + + + | Address | [address] | | | [place] [address] | + + + | Home Phone [...] + + + | Author | [facility] | + + + | Organization | [facility] | + + + | Address | Unknown | + + + | Phone | Unavailable | + + + Support + + +---------+ + | Name | Relationship | Address | Phone | + + +---------+ + | None Per Pt | ECON | Unknown | Unavailable | + + +---------+ + Care Team Providers + +------+ + | Care Freelance Makeup Artist Name | Role | Phone | + [...] | | 2018 | | Center at [facility] [address] | MD Rashida [address] [facility] | Received (07/16/2017- | | | | [address] | [facility] | Current ED | | | | Mailcode: Center | [place], [place] | Admission Notes, | | | | for Health and | [address] | Labs, Imaging | | | | Healing, Building [address] | [phone] | Reports and Surgery | | | | [place], [place] | | Report with | | | | [address] | | Pathology- St. | | | | [phone] | | Roshan) | +--------+ + + [...]
--- OUTSIDE RECORDS SUMMARY | ~2019-11-25 | XMS | Encounter Summary ---
Demographics + + + | Address | [address] | | | [place] [address] | + + + | Home Phone | | + + + | Preferred Language | Unknown | + + + | Marital Status | | + + + | Caodaism Affiliation | NON | + + + | Race | White | + + + | Ethnic Group | Not or | + + + Author + + + | Author | [facility] | + + + | Organization | [facility] | + + + | Address | Unknown | + + + | Phone | Unavailable | + + + Support + + +---------+ + | Name | Relationship | Address | Phone | + + +---------+ + | None Per Pt | ECON | Unknown | Unavailable | + + +---------+ + Care Team Providers + +------+ + | Care Turf Farmer Name | Role | Phone | + +------+ + | Herlinda Maldonado | PCP | | + +------+ + Encounter Details +--------+ + + + + | Date | Type | Department | Care Team | Description | +--------+ + + + + | 07/04/ | Inside | Endoscopic | Lyla Mendoza | | | 2018 | Referral | Procedural Unit at | MD Rashida [address] | | | | Order | [address]ay[address] | [address] | | | | | [address] | [place], [place] | | | | | [place], | [address] | | | | | [address]th floor [place], | [phone] | | | | | [place] [address] | | | | | | [phone] | | | +--------+ + + + [...] as of this encounter Plan of Treatment +------+ +--------+ + + | Name | Type | Priori | Associated Diagnoses | Order Schedule | | | | ty | | | +------+ +--------+ + + | ERCP | Procedures | Routin | | Expected: 07/04/2017 | | | | e | Choledocholithiasis | | +------+ +--------+ + + documented as of this encounter Visit Diagnoses + + | Diagnosis | + + | Choledocholithiasis - Primary Calculus of bile duct without mention of cholecystitis | | or obstruction | + + documented in this encounter"
--- OUTSIDE RECORDS SUMMARY | ~2019-11-25 | XMS | Encounter Summary ---
Demographics + + + | Address | [address] | | | [place] [address] | + + + | Home Phone | | + + + | Preferred Language | Unknown | + + + | Marital Status | | + + + | Scientology Affiliation | Unknown | + + + [...] Team Providers + +------+ + | Care Reconnaissance Crewmember Name | Role | Phone | + [...] [place] | | | | | | [address] | | | | | | [phone] | | | +--------+ + + + [...]
--- OUTSIDE RECORDS SUMMARY | ~2019-11-25 | XMS | Encounter Summary ---
Demographics + + + | Address | [address] | | | [place] [address] | + + + | Home Phone | | + + + | Preferred Language | Unknown | + + + | Marital Status | | + + + | Religion Affiliation | Unknown | + + + | Race | Unknown | + + + | Ethnic Group | Unknown | + + + Author + + + | Author | [facility] | | | and [place] | + + + | Organization | [facility] | | [...] Team Providers + +------+ + | Care Colleter Name | Role | Phone | + [...] | Specialty | Pulmonary | Diagnoses | Maxood, | Yovanny, | | | Services | Disease / | Chronic | Maximilian | She | | | Required | Pulmonology | obstructive | MD Jon | MD Domonique | | | | | pulmonary | [address] | [address] | | | | | disease, | St [place] | [address] | | | | | unspecified | [facility], [place] | [place], [place] | | | | | COPD type | [address] | [address] Phone: | | | | | ([facility]) | Phone: | [phone] | | | | | | [phone] | Fax: | | | | | | Fax: | [phone] | | | | | | [phone] | | +--------+ + + + + + Diagnostic/Screening (Routine) +--------+--------+ + + + + | Status | Reason | Specialty | Diagnoses / | Referred By | Referred To | | | | | Procedures | Contact | Contact | +--------+--------+ + + + + | Closed | | Radiology | Diagnoses | Maxtrina, | [facility] | | | | | Atrial | Maximilian | [address] | | | | | fibrillation | MD Jon | [place], | | | | | , | [address] | [place] | | | | | unspecified | St [place] | [address] | | | | | type (HCC) | [place], JEFFY | Phone: | | | | | Procedures | [address] | [phone] | | | | | ECHO | Phone: | Fax: | | | | | Complete | [phone] | [phone] | | | | | | Fax: | | | | | | | [phone] | | +--------+--------+ + + + + [...] fibrillation | [address] | [address] | | | | | ([facility]) | Addy Villagomez | St [place] | | | | | Procedures | [place], | [place], [place] | | | | | [place] STORER | [place] | [address] Phone: | | | | | | [address] | [phone] | | | | | | Phone: | Fax: | | | | | | [phone] | [phone] | | | | | | Fax: | | | | | | | [phone] | | +--------+--------+ + + + + Encounter Details +--------+---------+ + + + | Date | Type | Department | Care Team | Description | +--------+---------+ + + + | 01/09/ | Office | [facility] | Maximilian Abreu | Atrial fibrillation, | | 2019 | Visit | CARDIOLOGY [address] | MD Jon [address] | unspecified type | | | | [address] [place], | [address] [place] | (HCC) (Primary Dx); | | | | [place] [address] | [place] [address] | Right fascicular | | | | [phone] | block; Essential | | | | [...] PM PDT Referral to Dr Hairston - Data Communications Software Consultant in [facility] at [facility]. Someone from that office will call you [...] Chronic obstructive pulmonary disease (COPD) ([facility]) Crush injury lower extremities 1966 [...] BACK SURGERY 1981 Lower back COLONOSCOPY 09/23/2013 [facility] ENDOSCOPY 08/10/2013 [facility] ERCP N/A 08/14/2017 Procedure: ERCP; Surgeon: Jamey Hdz MD; Location: [facility] MEDICAL PROCEDURE UNIT HIP FRACTURE [...] OTHER SURGICAL HISTORY Endobiliary stent placed at [facility] Removal of lesion Right 2010 [...] made to ensure accuracy; however, inadvertent computerized maintenance operator errors may be pre sent. Electronically signed [...] Chronic | Ordered: 01/13/2019 | | to [facility] | Referral | e | obstructive | [...] CARE: | | | SHAHEEN Toro READING UNIX SYSTEM ADMINISTRATOR: Salvador Abreu MD, | | | PhD, [facility] 48-HOUR HOLTER MONITOR REPORT DATE: 03/26/2019 | [...] 01:15. | | | 5) There were 22709 Supraventricular beats with 558 couplets and | [...] Signed by: Salvador Abreu MD PhD 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
--- OUTSIDE RECORDS SUMMARY | ~2019-11-25 | XMS | Encounter Summary ---
Demographics + + + | Address | [address] | | | [place] [address] | + + + | Home Phone | | + + + | Preferred Language | Unknown | + + + | Marital Status | | + + + | Jewish Affiliation | NON | + + + [...] Team Providers + +------+ + | Care Permit Coordinator Name | Role | Phone | [...] | [address] | Cathi Macaroi, | | | 2019 | Event | [address] | [address] | | | | | [facility] | [facility] | | | | | Hospital Admitting | [place], [place] | | | | | Desk Located on the | [address] | | | | | 9th floor | [phone] | | | | | [place], [place] | | | | | | [address] | | | +--------+ + + + [...] | | +--------+ + + + | Protocol Manager | 06/27/17; 2205; Medium | 06/27/172205 by [...] | | Endotracheal Tube; 7.5; Oral; | [employer] | [employer] | | | 06/03/18; 1418 | | [...] leak: Yes | | | Narrative Attending: CATHI MACARIO Performed by [employer] | | | DONNIE CARDONA | | [...]
--- OUTSIDE RECORDS SUMMARY | ~2019-11-25 | XMS | Encounter Summary ---
Demographics + + + | Address | [address] | | | [place] [address] | + + + | Home Phone [...] Team Providers + +------+ + | Care Diamond Die Polisher Name | Role | Phone | + [...] Medication | | 2019 | | at [facility] | [address] | management | | | | [address] | [address] | | | | | Loop Physician's | [place], [place] | | | | | [place], [facility] floor | [address] | | | | | [place], [place] | [phone] | | | | | [address] | | | | | | [phone] | | | +--------+ + + + [...]
--- OUTSIDE RECORDS SUMMARY | ~2019-11-25 | XMS | Encounter Summary ---
Demographics + + + | Address | [address] | | | [place] [address] | + + + | Home Phone [...] Team Providers + +------+ + | Care Greenhouse Assistant Name | Role | Phone | [...] [address] | | | | | [place], [place] | [place], [place] | | | | | [address] | [address] | | | | | [phone] | [phone] | | | | | | | [...]
--- OUTSIDE RECORDS SUMMARY | ~2019-11-25 | XMS | Encounter Summary ---
Demographics + + + | Address | [address] | | | [place] [address] | + + + | Home Phone | | + + + | Preferred Language | Unknown | + + + | Marital Status | | + + + | Mormon Affiliation | NON | + + + | Race | White | + + + | Ethnic Group | Not or | + + + Author + + + | Author | [facility] | + + + | Organization | [facility] | + + + | Address | Unknown | + + + | Phone | Unavailable | + + + Support + + +---------+ + | Name | Relationship | Address | Phone | + + +---------+ + | None Per Pt | ECON | Unknown | Unavailable | + + +---------+ + Care Team Providers + +------+ + | Care Mandolin Repairer Name | Role | Phone | + +------+ + | Herlinda Maldonado | PCP | | + +------+ + Encounter Details +--------+ + + + + | Date | Type | Department | Care Team | Description | +--------+ + + + + | 06/26/ | Document-Sc | Health Information | Other, Faculty | | | 2018 | anned | Services [address] | [phone] | | | | | [address] | | | | | | Mailcode: [id number] | | | | | | [facility] | | | | | | [place], [place] | | | | | | [address] | | | | | | [phone] | | | +--------+ + + + [...] | + +--------+ + + + | RADIOLOGY | | 06/26/2017 | | Results for this | | | | 12:00 AM | | procedure are in the | | | | PST | | results section. | + +--------+ + + + | RADIOLOGY | | 06/26/2017 | | Results for this | | | | 12:00 AM | | procedure are in the | | | | PST | | results section. | + +--------+ + + + | RADIOLOGY | | 06/26/2017 | | Results for this | | | | 12:00 AM | | procedure are in the | | | | PST | | results section. | + +--------+ + + + documented in this encounter Results RADIOLOGY (06/26/2017 12:00 AM PST) + + + | Narrative | Performed At | + + + | | | + + + RADIOLOGY (06/26/2017 12:00 AM PST) + + + | Narrative | Performed At | + + + | | | + + + RADIOLOGY (06/26/2017 12:00 AM PST) + + + | Narrative | Performed At | + + + | | | + + + documented in this encounter Visit Diagnoses Not on filedocumented in this encounter"
--- OUTSIDE RECORDS SUMMARY | ~2019-11-25 | XMS | Encounter Summary ---
Demographics + + + | Address | [address] | | | [place] [address] | + + + | Home Phone | | + + + | Preferred Language | Unknown | + + + | Marital Status | | + + + | Anabaptism Affiliation | Unknown | + + + [...] Team Providers + +------+ + | Care Nougat Candy Maker Helper Name | Role | Phone | [...] + + | 08/01/ | Telephone | [facility] | Jamey Hdz | Procedure (ERCP) | | 2018 | | GASTROENTEROLOGY | MD Sarkis [address] | | | | | [address] [facility] | [address] [facility] | | | | | [address] [place] | [facility] [place] [address] | | | | | [address] | [phone] | | | | | [phone] | | | +--------+ + + + [...]
--- OUTSIDE RECORDS SUMMARY | ~2019-11-25 | XMS | Encounter Summary ---
Demographics + + + | Address | [address] | | | [place] [address] | + + + | Home Phone | | + + + | Preferred Language | Unknown | + + + | Marital Status | | + + + | Gnosticism Affiliation | NON | + + + [...] Team Providers + +------+ + | Care Pattern Ruler Name | Role | Phone | + [...] as of this encounter Progress Notes Interface, Last Model Maker In - 11/26/2005 3:10 AM PDT ULTRASOUND [...] Bay M.D. and Waylon Simeon, Ophthalmic Echographer [place] / [id number] / [id number] / [id number] / Tdocumented in this encounter Plan of [...] | Transcriptions | + + | Interface, Last Model Maker In - 11/26/2005 3:10 AM PDT | | ULTRASOUND EVALUATION REPORTPATIENT: RAVINDRE HURST: | | 07/14/2002REFERRING MD: Tacos Crawford [...] andWaylon Simeon, Ophthalmic | | EchographerME / [id number] / [id number] / [id number] / T: 07/17/2002 | |HISTORY: This gentleman [...] |Waylon Simeon, Ophthalmic Echographer | | | |[place] / HS | |[id number] / [id number] / [id number] / | | | | | + + documented in this encounter Visit Diagnoses Not on filedocumented in this encounter"
--- OUTSIDE RECORDS SUMMARY | ~2019-11-25 | XMS | Clinical Summary ---
Demographics + + + | Address | [address] | | | [place] [address] | + + + | Home Phone [...] + + | Author | [facility] | + + + | Organization | [facility] | + + + | Address | Unknown | + + + | Phone | Unavailable | + + + Support + + +---------+ + | Name | Relationship | Address | Phone | + + +---------+ + | None Per Pt | ECON | Unknown | Unavailable | + + +---------+ + Care Team Providers + +------+ + | Care Welder Oxyhydrogen Name | Role | Phone | + +------+ + | Herlinda Maldonado | PCP | | + +------+ + Source Comments BETTINA is fully live on both [facility] Ambulatory and [facility] InPatient.[facility] Allergies + + + + [...] | | | | 88 | | [facility] INPATIENT REV LOC | | | | | | | + +------+--------+ +--------+--------+--------+ | Washer 13mm 6.6mm Lcp | | Left: | [employer] | | | 219.99 | | Orthopedic Stainless Steel | | Hip | | | | / / | | 4.5-7.3mm Screw Nonsterile - | | | | | | | | [id number]: Qty: 2 on | | | | | | | | 06/03/2018 by Working, | | | | | | | | Nguyễn Chance MD at [facility] | | | | | | | | INPATIENT REV LOC | | | | | | | + +------+--------+ +--------+--------+--------+ | Screw Bone 6.5mm 160mm | | Left: | [employer] | | | 208.48 | | Stainless Steel Full Thread | | Hip | | | | 5 / / | | Orthopedic Cannulated | | | | | | | | Nonsterile - | | | | | | | | [id number]: Qty: 1 on | | | | | | | | 06/03/2018 by Working, | | | | | | | | Nguyễn Chance MD at [facility] | | | | | | [...] /[id number] | | Nguyễn Chance MD at [facility] | | | | | | [...] RE HMO | | sent | | [place], | | | | | | | | [place] [address] | | + +--------+ +--------+ + +--------+ + +--------+ +--------+ + + | Guarantor Name | Accoun | Relation to | Date | Phone | Billing Address | | | t Type | Patient | of | | | | | | | | | | + +--------+ +--------+ + + | William Burns | Person | Self | [birth year] | [address] | | | al/Fam | | 1935 | [phone] | [place] [address] | | | michelle | | | [...]
--- OUTSIDE RECORDS SUMMARY | ~2019-11-25 | XMS | Encounter Summary ---
Demographics + + + | Address | [address] | | | [place] [address] | + + + | Home Phone | | + + + | Preferred Language | Unknown | + + + | Marital Status | | + + + | Sikhism Affiliation | NON | + + + | Race | White | + + + | Ethnic Group | Not or | + + + Author + + + | Author | [facility] | + + + | Organization | [facility] | + + + | Address | Unknown | + + + | Phone | Unavailable | + + + Support + + +---------+ + | Name | Relationship | Address | Phone | + + +---------+ + | None Per Pt | ECON | Unknown | Unavailable | + + +---------+ + Care Team Providers + +------+ + | Care Nonprofit Financial Controller Name | Role | Phone | + [...] | [address] | [place], | | | | | [place], | [place] [address] | | | | | [place] [address] | [phone] | | | | | [phone] | | | +--------+ + + + [...]
--- OUTSIDE RECORDS SUMMARY | ~2019-11-25 | XMS | Encounter Summary ---
Demographics + + + | Address | [address] | | | [place] [address] | + + + | Home Phone | | + + + | Preferred Language | Unknown | + + + | Marital Status | | + + + | Oriental Orthodox Affiliation | Unknown | + + + | Race | Unknown | + + + | Ethnic Group | Unknown | + + + Author + + + | Author | [facility] | | | and [place] | + + + | Organization | [facility] | | | [...] Team Providers + +------+ + | Care Shore Worker Name | Role | Phone | [...] | | | pulmonary | [address] | [address] [place] | | | | | disease, | St [place] | [place], [place] | | | | | unspecified | [place], [place] | [address] Phone: | | | | | COPD type | [address] | [phone] | | | | | ([facility]) | Phone: | Fax: | | | | | | [phone] | [phone] | | | | | | Fax: | | | | | | | [phone] | | +--------+ + + + + [...] [address] | | | | | ([facility]) | [address] | [address] | | | | | Procedures | [place], | [place] | | | | | CERTIFIED MASTER [place]ER | [place] | [address] Phone: | | | | | | [address] | [phone] | | | | | | Phone: | Fax: | | | | | | [phone] | [phone] | | | | | | Fax: | | | | | | | [phone] | | +--------+--------+ + + + + Encounter Details +--------+---------+ + + + | Date | Type | Department | Care Team | Description | +--------+---------+ + + + | 04/09/ | Office | [facility] | Maximilian Abreu | Chronic obstructive | | 2018 | Visit | CARDIOLOGY [address] | MD Jon [address] | pulmonary disease, | | | | [place], | [address] [place] | unspecified COPD | | | | [place] [address] | [place] [address] | type (HCC) (Primary | | | | [phone] | [phone] | Dx) | | | | | [...] BACK SURGERY 1981 Lower back COLONOSCOPY 09/23/2013 [facility] ENDOSCOPY 08/10/2013 [facility] ERCP N/A 08/14/2017 Procedure: ERCP; Surgeon: Jamey Hdz MD; Location: [facility] MEDICAL PROCEDURE UNIT HIP FRACTURE [...] HISTORY Endobiliary stent placed at [facility] Removal of lesion Right 2010 Right hand [...] made to ensure accuracy; however, inadvertent computerized hospice coordinator errors may be pre sent. Electronically signed by: Salvador Abreu MD PhD [facility] 04/09/2019 documented in t his encounter [...]
--- OUTSIDE RECORDS SUMMARY | ~2019-11-25 | XMS | Encounter Summary ---
Demographics + + + | Address | [address] | | | [place] [address] | + + + | Home Phone [...] Team Providers + +------+ + | Care Automotive Glass Technician Name | Role | Phone | + +------+ + | Herlinda Maldonado | PCP | | + +------+ + Encounter Details +--------+ + + + + | Date | Type | Department | Care Team | Description | +--------+ + + + + | 06/26/ | Inside | Endoscopic | Paulette Mckenzie MD | | | 2018 | Referral | Procedural Unit at | [address] | | | | Order | [address] | [facility], | | | | | [address] | [place] [address] | | | | | [address], | [phone] | | | | | 4th floor [place], | | | | | | [place] [address] | | | | | | [phone] | | | +--------+ + + + [...] Not on filedocumented as of this encounter Results ERCP (06/27/2017 6:38 AM PST) + + | Specimen | + + | | + + + + + | Narrative | Performed At | + + + | MRN: | [facility] | | [id number] Date: 06/27/2017Patient Name: William Nair #: | ENDOSCOPY | | [id number] of : 1935SN: [id number] Type: | | | InpatientRoom: SORProcedure: ERCPIndications: | | | For therapy of ascending cholangitis; 82 yo M with | | | sepsis, elevated LFTs and US showing mary dil and 1.3 cm | | | CBDProviders: BRVALENTINA | | | Thompson [place] MD (Doctor), JORDY SOLANO, | | | RN (Nurse), ESTELA DAMIAN, SARI (Lead Warehouse Associate)Referring MD: | | | Requesting Provider: Medicines: [...] The | | | Olympus [id number] Duodenoscope #[id number] was | | | introduced through the [...] with acute | | | cholangitis. The mill manager film was normal. The esophagus was [...] Initiated On: | | | 06/27/2017 6:38 [facility] Letter to: LANA MATHEWS MD | | |06/27/2017 6:48:17 AM | | |Number of Addenda: 0 | | |Note Initiated On: 06/27/2017 6:38 AM | | |CC Letter to: | | | LANA MATHEWS MD | | + + + + +---------+ + + | Performing | Address | City/State/Zipcode | Phone Number | | Organization | | | | + +---------+ + + | [facility] | | | | + +---------+ + + documented in this encounter Visit Diagnoses + + | Diagnosis | + + | Dyspnea, unspecified type - Primary | + + documented in this encounter"
--- OUTSIDE RECORDS SUMMARY | ~2019-11-25 | XMS | Encounter Summary ---
Demographics + + + | Address | [address] | | | [place] [address] | + + + | Home Phone [...] Team Providers + +------+ + | Care Tobacco Sorter Name | Role | Phone | + [...] | deconditioni | Virgil Chance MD | Ave | | | | | ng | [address] | Mailcode: | | | | | Procedures | [address] | [facility] | | | | | PHYSICAL | [address] | for Health | | | | | THERAPY | [place], [place] | and Healing, | | | | | REFERRAL | [address] | [address], | | | | | | Phone: | [address] Floor | | | | | | [phone] | [place], [place] | | | | | | Fax: | [address] | | | | | | [phone] | Phone: | | | | | | | [phone] | | | | | | | Fax: | | | | | | | [phone] | +--------+--------+ + + + + Reason [...] + | 06/26/ | Hospital | [address] | Alberto Miranda MD | | | 2018 - | Encounter | [facility] [address] | [address] | | | | | [address] [place] [address] | Carolina Guerra [place], | | | 06/30/ | | [place], [place] | [place] [address] | | | 2017 | | [address] | [phone] | | | | | [phone] | | | | | | | Vic Petty | | | | | | MD [place] [address] | | | | | | [address] | | | | | | [place], [place] | | | | | | [address] | | | | | | [phone] | | | | | | | [...] might be differen t from the original. [facility] Discharge Summary Discharging Provider: VIRGIL GRIMM [...] and intubated prior to tra nsfer to [facility]. Workup was notable for RUQ U/S [...] Your Medications These medications were sent to [id number] [place] [address] [place] [address] Hours: 9AM-7PM MON - FRI / 9AM-6PM [...] Thank you for entrusting your care to [facility] Internal Medicine. If you have any problems or concerns before you are able to follow up with your Primary Care Provider, please call and ask the lagging machine operator to page the attending physician, Vic Petty MD, wh o was caring for you at discharge. If that physician is not available, ask the lagging machine operator to page the physician network liaison for the Medical Teaching Service. Call us right away if any of the following occur: Recurrent abdominal pain Shaking chills or night sweats Other Discharge Orders and Instructions You will be called by the [facility] GI service within the next week to schedule a repeat appoint ment for ERCP and possible stent removal. Home Health Referral after Hospitalization Comments: I certify that this patient is under my care and that I, or Nurse Practitioner or Physician Butt Maker working with me, had a face to face encounter with this patient on 06/30/2017 On behalf of Attending Physician: Vic Petty MD I am ordering and certify that the following services are medically necessary home health s [facility] Home Health Physical Therapy Evaluate and Treat I certify that the patient is homebound based on the following clinical findings Post-hospi tono weakness, decreased strength and endurance, and tires easily with minimal exertion Follow Up: Schedule the following appointment(s) when you get home DARYL MATHEWS MD . Specialty: Internal Medicine Contact information [facility] [address] [place] [address] [address] [facility] [address] Discharge Physical Exam: Last 24 hour min/max [...] none VIRGIL GRIMM MD Associated attestation - Jovanny, Vic Bains MD - 06/30/2017 3:54 PM PSTFormatting of is note might be different from the [...] 12) Acute respiratory failure with hypoxia ([facility]) Please refer to the resident discharge summary for additional details. Vic Petty MD, PhD Clinical Hospitalist and Medicine Teaching Services [facility] Pager [phone] I have spent 35 minutes with the [...] | | | 18 | | | release(/ELIGIO) | evening. | | | | | [...] might be different from bella landin. PHYSICIAN DOCUMENT REVIEWER STUDENT PROGRESS NOTE FOR EDUCATIONAL PURPOSES ONLY [...] Q2H PRN ipratropium-albuterol 3 mL Q6H PRN cbvtcvnf-tvrdiat-kypktsjm-zinc QID PRN oxyCODONE (immediate release) 2.5-5 mg [...] PT/OT evaluation. IV/Airways/Catheters: PIV Code status: FULL DOREEN Oconnell [facility] Physician Butt Maker Program 06/29/17 Kang Zhang MD - 06/29/2017 [...] Active Hospital Problems 1) *Septic shock ([facility]) 2) Choledocholithiasis 3) Acute cholangitis 4) Klebsiella sepsis ([facility]) 5) Aspiration pneumonitis ([facility]) 6) S/P ERCP 7) COPD (chronic obstructive pulmonary disease) ([facility]) 8) Essential hypertension 82 year-old man with HTN, COPD not on supplemental oxygen, who presented to OSH with epigas tric pain and abnormal LFTs, admitted for septic shock due to acute cholangitis and acute hy poxic respiratory failure due to aspiration requiring intubation, transferred to [facility] MICU. Here found to have klebsiella [...] Hospitalist and Medicine Teaching Services [facility] Pager [phone] I have spent 26 minutes with the [...] interval not displayed. Micro: BLOOD CULTURE WORKUP [[id number]] (Abnormal) [facility] Collected: 06/26/17938 Lab Status: Final result Specimen: Blood from [...] Active Hospital Problems 1) *Septic shock ([facility]) 2) Choledocholithiasis 3) Acute cholangitis 4) Klebsiella sepsis ([facility]) 5) Aspiration pneumonitis ([facility]) 6) S/P ERCP 7) COPD (chronic obstructive pulmonary disease) ([facility]) 8) Essential hypertension Resolved Hospital Problems 9) Septic shock ([facility]) 10) Non-ST elevation myocardial infarction (NSTEMI), type 2 ([facility]) 11) Acute respiratory failure with hypoxia ([facility]) Assessment: William Burns is a 82 y.o. [...] Primary Surrogate Decision Maker Sharon Rodriguez Daughter [phone] Dimas Xavier MD Internal Medicine, PGY-3 #[id number] Louis Hernandez MD - 06/28/2017 2:26 PM [...] management as outpatient (pt prefers facility near [place]) --> if develops post ERCP complications or [...] Horne - 06/28/2017 7:47 AM PST PHYSICIAN DOCUMENT REVIEWER STUDENT PROGRESS NOTE FOR EDUCATIONAL PURPOSES ONLY [...] Q2H PRN ipratropium-albuterol 3 mL Q6H PRN zreagskn-itdlgds-eaqeghaj-zinc QID PRN oxyCODONE (immediate release) 2.5-5 mg [...] on klebsiella cultures for sensitivity. Spoke with Car Loader at [facility] @1330, N o sensitivity results yet from [...] IV/Airways/Catheters: PIV Code status: FULL SHONDA OconnellS [facility] Physician Butt Maker Program 06/28/17 Alisha Rai M D - [...] 86 87 78 HCO3 22 24 23 KVWIR6GHJ 24 25 24 F7SGTIRB 96.4 97.0 96.8 FIO2 0.80 0.25 0.21 [...] in the patient's condition). ALISHA MAYNARD MD [facility] [address] [place] [phone] Camilo Amaya MD - 11/2017 6:00 AM PST [facility] MEDICAL ICU - PROGRESS NOTE Hospital Day: 1 | ICU Day: 1 ID/CC: Aki Burns is a 82 y.o. man admitted to the MICU for septic shock. Consultants: EMILY, Cards 24 Hour Events: - ERCP performed [...] 15 Max: 26 SpO2 96 % (06/27/17 0500) | SpO2 Min: 88 % Max: 100 % O2 Device Endotracheal tube (06/27/17 0500) | Volume AC (06/27/17 0302) Ventilator Settings Vt: 6.5 mL/Kg (459.6 mL) RR: 22 bpm [place] BW: 70.7 kg FiO2 21 fraction of [...] 87 78 HCO3 -- 22 24 23 QIU0IQQ4 -- 108* 348 371 VBGPH 7.27* -- [...] Primary Surrogate Decision Maker Sharon Rodriguez Daughter [phone] This patient was staffed with Dr. Maynard, [...] duct clearance Rene Maldonado MD Gastroenterology Pager [phone] - Virginia Cerna MD - 06/26/2017 4:38 PM PSTFormatting of this note might be different from the origi nal. PRE PROCEDURE NOTE: MR# [id number] Subjective: William Burns is a 82 y.o. [...] 4 hours. Concern for choledocholithiasis. Transferred t [facility] this morning. Has history of COPD [...] results for input(s): PH, PCO2, PO2, HCO3, OIUQG8WOE, A2FTLWLV, L5UWBZVGH, FIO2 in the l ast 72 hours. [...] in the patient's condition). ALISHA MAYNARD MD [facility] [address] [place] [address] documented in this enco unter Plan of [...] | + +--------+ + + + | SK-WT-HAC-HB,POC RT | Urgent | 06/26/2017 | | [...] + + + | ECG | Short VA interval | | [facility] | | [...] + | [facility] | [address] [facility] | [place], [place] | | | CARDIOLOGY | [address] | [address] | | + + + + + [...] | + + + + + | [facility] | [address] | [place] [address] | | | SERVICES, CORE | PARK [...] + + | Reference range change effective 8/15/17. | [facility] | | | LABORATORY | | | SERVICES, CORE | + + + + + + + + | Performing | Address | City/State/Zipcode | Phone Number | | Organization | | | | + + + + + | [facility] | [address] [facility] [facility] [address] | [place] [address] | | | SERVICES, CORE | PARK [...] | | | LABORATORY | | | MEXICAN | | | SERVICES, | | | [...] | + +---------+ + + + | [facility]A [facility] | No Hemo | | [facility] [...] | Adult glucose reference range change effective 11-29-16. GFR is | [facility] | | estimated [...] | + + + + + | [facility] | [address] | [place] [address] | | | SERVICES, [place] | [address] | | | [...] | [address] | [place] [address] | | | SERVICES, [facility] | [address] | | | + [...] Note | + + | Service Account, [employer] Res In Interface - 06/28/2017 5:02 PM [...] [facility] | [address] | [place], [place] | | | YUE POINT OF CARE | [facility] | [address] | | | TESTS | | | [...] | [facility] | [address] | [place] [address] | | | SARA, Y[place]ASTA | PARK [...] LABORATORY | [address] | [place] [address] | | | SERVICES, CORE | PARK [...] | | | LABORATORY | | | MEXICAN | | | SERVICES, | | | [...] + | [facility] | [address] | [place] [address] | | | SERVICES, [place] | PARK [...] | + + + + + | [facility] | [address] | [place] [address] | | | Y[place]A RUIZ | [address] [...] (H) | 70 - 99 mg/dL | [facility] - | | | GLUCOSE, | | [...] [facility] | [address] | [place], [place] | | | YUE POINT OF CARE | [address] | [address] | | | TESTS | | | [...] Service Account, Shana Le In Interface - 06/28/2017 10:17 AM PST [...] [facility] | [address] | [place], [place] | | | [facility] | [address] | [address] | | | TESTS | | | [...] [facility] | [address] | [place], [place] | | | [facility] | [address] | [address] | | | TESTS | | | [...] | | | LABORATORY | | | MEXICAN | | | SERVICES, | | | [...] | + + + + + | [facility] | [address] [facility] | [place] [address] | | | SERVICES, [place] | [address] | | | [...] and volume. | LABORATORY | | | [place]A RUIZ | + + + + + + + + | Performing | Address | City/State/Zipcode | Phone Number | | Organization | | | | + + + + + | [facility] | [address] [facility] [facility] [address] | [place] [address] | | | [place]A RUIZ | [address] [...] + + | [facility] | [address] [facility] [address] | [place] [address] | | | SERVICES, CORE | PARK [...] LABORATORY | [address] | [place] [address] | | | SERVICES, [place] | [address] | | | [...] | + + + + + | [facility] | [address] | [place] [address] | | | SERVICES, CORE | [place]INA [...] (H) | 70 - 99 mg/dL | [facility] - | | | GLUCOSE, | | [...] AMADOU | [address] | [place], [place] | | | [facility] | [facility] | [address] | | | TESTS | | | [...] | [address] | [place] [address] | | | SERVICES, CORE | PARK [...] [facility] | | | GRAVITY | [place] | | LABORATORY | | | | [...] LABORATORY | [address] | [place] [address] | | | Y[place]ASTA RUIZ | [address] | | | + + + + + ERCP (06/27/2017 6:38 AM PST) + + | Specimen | + + | | + + + + + | Narrative | Performed At | + + + | MRN: | [facility] | | [id number] Date: 06/27/2017Patient Name: William Nair #: | ENDOSCOPY | | [id number] of : 1935SN: [id number] Type: | | | InpatientRoom: SORProcedure: ERCPIndications: | | | For therapy of ascending cholangitis; 82 yo M with | | | sepsis, elevated LFTs and US showing mary dil and 1.3 cm | | | CBDProviders: BRVALENTINA | | | Thompson MALDONADO MD (Doctor), JORDY SOLANO, | | | RN (Nurse), ESTELA DAMIAN, RN (Director Wholesale)Referring MD: | | | Requesting Provider: Medicines: [...] The | | | Olympus TJF-Q180V Duodenoscope #[id number] was | | | introduced through the [...] with acute | | | cholangitis. The truck cleaner film was normal. The esophagus was | [...] Initiated On: | | | 06/27/2017 6:38 [facility] Letter to: DARYL MATHEWS MD | | |06/27/2017 6:48:17 AM | | |Number of Addenda: 0 | | |Note Initiated On: 06/27/2017 6:38 AM | | |CC Letter to: | | | DARYL MATHEWS [...] + | MRN: | [facility] | | [id number] Date: 06/27/2017Patient Name: William Nair #: | ENDOSCOPY | | [id number] of : 1935SN: [id number] Type: | | | InpatientRoom: SORProcedure: ERCPIndications: | | | For therapy of ascending cholangitis; 82 yo M with | | | sepsis, elevated LFTs and US showing mary dil and 1.3 cm | | | CBDProviders: BRINTHA | | | Thompson MALDONADO MD (Doctor), JORDY SOLANO, | | | RN (Nurse), ESTELA DAMIAN RN (Director Wholesale)Referring MD: | | | Requesting Provider: Medicines: [...] The | | | Olympus TJF-Q180V Duodenoscope #[id number] was | | | introduced through the [...] with acute | | | cholangitis. The truck cleaner film was normal. The esophagus was | [...] remove stent | | | and clear ductRENE MALDONADO, | | | 06/27/2017 6:48:17 AMNumber of Addenda: 0Note Initiated On: 06/27/2017 | | | 6:38 [facility] Letter to: DARYL MATHEWS MD | | |06/27/2017 6:48:17 AM | | |Number of Addenda: 0 | | |Note Initiated On: 06/27/2017 6:38 AM | | |CC Letter to: | | | DARYL MATHEWS MD | | + + + + +---------+ + + | Performing | Address | City/State/[facility] Cent[facility]ode | Phone Number | | Organization | [...] | + + + + + | [facility] | [address] | [place] [address] | | | SERVICES, CORE | PARK [...] LABORATORY | [address] | [place] [address] | | | SARA, [place]ASTA | [address] [...] | + + + + + | [facility] | [address] | [place] [address] | | | SARA, [place]A | [address] [...] | | | LABORATORY | | | MEXICAN | | | SERVICES, | | | [...] | Adult glucose reference range change effective 11-29-17. GFR is | [facility] | | estimated [...] + + | Performing | Address | City/State/Mem[facility] Medical Centercode | Phone Number | | Organization | | | | + + + + + | [facility] | [address] | [place] [address] | | | SERVICES, CORE | PARK [...] + + + + + + | QTC-BAJORDI | 492 | ms | [facility] [...] + + | ECG | Borderline prolonged VA | | [facility] | | | [...] OF | [address] | [place], [place] | | | CARDIOLOGY | [address] | [address] | | + + + + + [...] Note | + --------+ | Service Account, [employer] Res In Interface - 06/28/2017 9:20 AM [...] | + + + + + | [facility] | [address] [facility] [facility] | [place] [address] | | | SERVICES, CORE | [place] [...] (H) | 70 - 99 mg/dL | [facility] - | | | GLUCOSE, | | [...] + + + | [facility] | [address] | [place], [place] | | | YUE [facility] | [address] | [address] | | | TESTS | | | [...] Note | + + | Service Account, [employer] Res In Interface - 06/27/2017 9:07 AM [...] + + + + | [facility] | [address] | [place], [place] | | | YUE POINT OF CARE | [address] | [address] | | | TESTS | | | [...] [facility] | [address] | [place], [place] | | | CARDIOLOGY | [address] | [address] | | + + + + + ART ROLAND (06/26/2017 5:10 PM PST) + + + [...] correct patient, procedure, | | | equipment, high school learning support teacher and site/side marked as required. | | [...] | | | | | | Pathology ResidentLincoln | | | | | | Louis [...] number | | | | | | [id number]. Bile duct, | | | | | [...] + + + + + | [facility] | [address] | [place] [address] | | | PATHOLOGY | [address] [...] correct patient, | | | procedure, equipment, high school learning support teacher and site/side marked as required. | | [...] modified Seldinger technique (a | | | cxmjirvb-zxhk-aye-pmlysu-myyu-twjb-pjqgecy-utu-akfgtjqk) was used for | | | vessel [...] | [address] | [place] [address] | | | SERVICES, CORE | [address] [...] | + + + + + | [facility] | [address] | [place] [address] | | | SARA, [place]ASTA | [address] | | | + [...] | + + + + + | [facility] | [address] [facility] [facility] | [place] [address] | | | SERVICES, CORE | [place] [...] | [address] | [place] [address] | | | SERVICES, CORE | [place] [...] | | | LABORATORY | | | MEXICAN | | | SERVICES, | | | [...] | + + + + + | [facility] | [address] | [place] [address] | | | YOKASTA RUIZ | [address] [...] [facility] | [address] | [place], [place] | | | CARDIOLOGY | [address] | [address] | | + + + + + [...] | + + + + + | [facility] | [address] | [place] [address] | | | SERVICES, CORE | [place] [...] | + + + + + | [facility] [employer] | [address] | [place] [address] | | | SERVICES, CORE | [place] [...] | + + + + + | [facility] | [address] | [place] [address] | | | SERVICES, CORE | [address] [...] | + + | Service Account, Shana SUB [employer] In Interface - 06/26/2017 12:57 PM PST [...] valves (2.5 - 3.5) INR APTT | [facility], CORE | | Therapeutic Range: (75 - 120) sec | | | Heparin levels of 0.35 - 0.7 U/mL | | + + + + + + + + | Performing | Address | City/State/Zipcode | Phone Number | | Organization | | | | + + + + + | [facility] | [address] | [place] [address] | | | SERVICES, [facility] | [address] | | | + [...] Note | + ----+ | Service Account, [employer] Res In Interface - 06/26/2017 12:57 PM [...] Note | + + | Service Account, [employer] In Interface - 06/26/2017 12:55 PM PST [...] Note | + + | Service Account, [employer] Res In Interface - 06/26/2017 12:53 PM [...] Note | + + | Service Account, Sahna Res In Interface - 06/26/2017 10:12 AM [...] | [address] | [place] [address] | | | SERVICES, | [address] [...] | [address] | [place] [address] | | | SERVICES, | [address] [...] | [address] | [place] [address] | | | SERVICES, | [address] [...] + + + + | QTC-KAJAL | 528 | ms | [facility] [...] + + + | ECG | Prolonged VA interval | | [facility] | | [...] + | [facility] | [address] | [place], [place] | | | CARDIOLOGY | [address] | [address] | | + + + + + [...] + | [facility] | [address] | [place] [address] | | | [place] | | | [...] + | [facility] | [address] | [place] [address] | | | [place] | | | | + + + [...] | [facility] | [address] | [place] [address] | | | [place]ASTA RUIZ | [address] [...] | + + + + + | [facility] | [address] | [place] [address] | | | SARA, Y[place]ASTA | [address] | | | + [...] | [address] | [place] [address] | | | SERVICES, CORE | PARK [...] | + + + + + | [facility] | [address] | [place] [address] | | | SERVICES, CORE | PARK [...] | [address] | [place] [address] | | | SERVICES, CORE | PARK [...] | + + + + + | [facility] | [address] | [place] [address] | | | SERVICES, CORE | [place] [...] + + | [facility] | [address] | [place] [address] | | | SERVICES, [facility] | [address] | | | + [...] | | | LABORATORY | | | MEXICAN | | | SERVICES, | | | [...] | + + + + + | [facility] | [address] | [place] [address] | | | SERVICES, CORE | PARK [...] | + + + + + | [facility] | [address] | [place] [address] | | | SERVICES, CORE | [address] | | | + + + + + IZ-VU-BJB-HB,POC RT (06/26/2017 8:55 AM PST) + + [...] | | | CA,WHOLE | | | [facility] | | | BLD,POC | | | [...] [facility] | [address] | [place], [place] | | | [facility] | [address] | [address] | | | TESTS | | | [...] | | | | | modification) on [facility] 06/28/17 at | | | | [...] 1026, Until 06/30/17 | | | at 3, 2nd line for no BM in | [...] HOURS, First dose on Tue | | AM PST | | | [...] | | | dose on Sun06/26/17 at 1115, Until | | | | [...] 18 9:41 | | | | | 06/26/17 at 2145 | | PM PST | [...] | | | | ONCE, 1 dose, [facility] 06/26/17 at 0845 | | AM PST [...] | | | | | modification) on Sun06/26/17 at | | | | | | | 1000, Last dose on Sun06/26/17 at | | | | | [...] intravenous, ONCE, 1 dose, Sun | | PM PST | | [...]
--- OUTSIDE RECORDS SUMMARY | ~2019-11-25 | XMS | Encounter Summary ---
Demographics + + + | Address | [address] | | | [place] [address] | + + + | Home Phone | | + + + | Preferred Language | Unknown | + + + | Marital Status | | + + + | Christianity Affiliation | Unknown | + + + [...] Team Providers + +------+ + | Care Fly Frame Tender Name | Role | Phone | [...] | | | | COPD type | [place], [place] | [place] | | | | | ([facility]) | [address] | [address] | | | | | Procedures | Phone: | Phone: | | | | | Pulmonary | [phone] | [phone] | | | | | function | Fax: | Fax: | | | | | test | [phone] | [phone] | +--------+--------+ + + + + Reason [...] | | | pulmonary | [address] | [address] | | | | | disease, | [place] | [address] | | | | | unspecified | [place] | [place] | | | | | COPD type | [address] | [address] Phone: | | | | | ([facility]) | Phone: | [phone] | | | | | | [phone] | Fax: | | | | | | Fax: | [phone] | | | | | | [phone] | | +--------+ + + + + + Encounter Details +--------+---------+ + + + | Date | Type | Department | Care Team | Description | +--------+---------+ + + + | 04/30/ | Office | [facility] | Yovanny, | Shortness of breath | | 2019 | Visit | PULMONOLOGY [address] | She Youssef, | (Primary Dx); | | | | GOCHE[address]ES | [address] | Chronic obstructive | | | | [place] | [place], | pulmonary disease, | | | | [address] | [place] [address] | unspecified COPD | | | | [phone] | [phone] | type (HCC); | | | | [...] in this encounter Progress Notes Brock Bocanegra, Vp [employer] Services [employer] - 04/30/2019 1:30 PM PST3 step testing Oximetry Exercise (code) 99907 1. At rest on room air: Time:2:24 [...] been admitted for a bowel obstruction in [facility] and he is recovering from this. [...] the last time he was admitted in [facility]. 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 He has a dog. He denies owning pigeons. He grew up in [place]. He denies having respirator y issues when [...] obstruction Choledocholithiasis Chronic obstructive pulmonary disease (COPD) ([facility]) Crush injury lower extremities 1966 Left leg and foot Cutaneous abscess of chest wall Disease of sebaceous glands Diverticulosis Diverticulosis of colon Epidermal cyst Epigastric pain Esophageal ulcer with bleeding GERD (gastroesophageal reflux disease) Hip fracture ([facility]) 2003 Left Hyperlipidemia Inflamed seborrheic keratosis Inguinal [...] BACK SURGERY 1981 Lower back COLONOSCOPY 09/23/2013 [facility] ENDOSCOPY 08/10/2013 [facility] ERCP N/A 08/14/2017 Procedure: ERCP; Surgeon: Jamey Hdz MD; Location: [facility] MEDICAL PROCEDURE UNIT HIP FRACTURE SURGERY Left [...] OTHER SURGICAL HISTORY Endobiliary stent placed at [facility] Removal of lesion Right 2009 Right hand [...] his PFT. His studies were sent to [facility]. Three minute walk test did not [...] Hairston MD Pulmonary and Critical Care Medicine [facility]/[address] , [place] [address] documente d in this encounter Plan of [...]
--- OUTSIDE RECORDS SUMMARY | ~2019-11-25 | XMS | Encounter Summary ---
Demographics + + + | Address | [address] | | | [place] [address] | + + + | Home Phone | | + + + | Preferred Language | Unknown | + + + | Marital Status | | + + + | Catholic Affiliation | NON | + + [...] Team Providers + +------+ + | Care Port Steward Name | Role | Phone | + [...] | | | [address] | [address] | | | | | [place]ste[place], | [place], [place] | | | | | [place] [address] | [address] | | | | | [phone] | [phone] | | | | | | | [...] Recinos MD - 06/11/2018 10:00 AM PST [facility] Facility Intake Exam - [facility] Alan Thomas "Carlos" James Burns is a 83 y.o. male with a PMH significant for prior L THR, SVT, HT N, COPD (non-O2 dependent), prior UGIB. He is admitted to [facility] for skilled therapy following a hospitalization at [facility] from 05/31 to 06/06 for Left Acetabular Fracture in the setting of a prior THR. Hospital course was significant for: Carlos was transferred to [facility] from [facility] on 05/31 for management of a [...] independent at baseline. He was brought to [facility] given his medical comorbidities and peyton rn [...] to visit (already scheduled for 07/02/18 at [facility] Ortho ). 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 He was also seen by the Geriatrics [...] List Diagnosis COPD (chronic obstructive pulmonary disease) ([facility]) Essential hypertension Physical deconditioning Atrial fibrillation ([facility]) Diverticulosis of colon GERD (gastroesophageal reflux disease) Raynaud's syndrome Right fascicular block Closed fracture of anterior column of left acetabulum with routine healing HTN (hypertension) Past Medical History: Diagnosis Date Acute cholangitis 06/27/2017 Aspiration pneumonitis ([facility]) 06/28/2017 Atrial fibrillation ([facility]) 08/13/2017 Choledocholithiasis 06/26/2017 Closed fracture of anterior column of left acetabulum with routine healing 06/11/2018 COPD (chronic obstructive pulmonary disease) ([facility]) Diverticulosis of colon 01/01/2007 Overview: Note: Unchanged GERD (gastroesophageal reflux disease) 08/13/2017 GI bleed 2013 esophageal ulcer s/p clipping 2013 HTN (hypertension) Klebsiella sepsis ([facility]) 06/27/2017 Normocytic anemia Hgb around 11 in 2013 Prediabetes Raynaud's syndrome 05/23/2017 Right fascicular block 05/23/2017 S/P ERCP 06/28/2017 SVT (supraventricular tachycardia) ([facility]) unclear hx. "Possible SVT" per chart in [...] (has used x 2 since arriving at [facility]) - Continue Mucinex BID per home [...] PGY1 GENERAL INTERNAL MEDICINE AT OFFSITE Pager: [phone] Associated attestation - Crystal Evans MD - [...] the following additions/clarifications/exceptions: none Crystal Evans MD [facility] Division of Internal Medicine and Geriatrics documented [...]
--- OUTSIDE RECORDS SUMMARY | ~2019-11-25 | XMS | Encounter Summary ---
Demographics + + + | Address | [address] | | | [place] [address] | + + + | Home Phone | | + + + | Preferred Language | Unknown | + + + | Marital Status | | + + + | Adventism Affiliation | Unknown | + + + | Race | Unknown | + + + | Ethnic Group | Unknown | + + + Author + + + | Author | [facility] | | | and [place] | + + + | Organization | [facility] | | | and [...] Team Providers + +------+ + | Care Shopper Marketing Manager Name | Role | Phone | + +------+ + | Herlinda Maldondao | PCP | | | PA | [...] | | | | CENTER [address] | [place], [place] | complication, | | | | [place], [place] | [address] | initial encounter | | | | [address] | | (Primary Dx); Fall | | | | [phone] | | from slip, trip, or | [...] Care Everywhere.Laceration, Chi n, Suture or Tape (Lao)documented in this encounter Medications at Time of [...] might be different fr om the original. [facility] Burns Emergency Department Encounter Note [address] [place] [id number] PCP:SHAHEEN Toro ED15 CHIEF COMPLAINT: Chief Complaint [...] disease (COPD) ([facility]) Crush injury lower extremities 1966 Left leg and foot Cutaneous abscess of chest wall Disease of sebaceous glands Diverticulosis Diverticulosis of colon Epidermal cyst Epigastric pain Esophageal ulcer with bleeding GERD (gastroesophageal reflux disease) Hip fracture ([facility]) 2003 Left Hyperlipidemia Inflamed seborrheic keratosis Inguinal [...] BACK SURGERY 1981 Lower back COLONOSCOPY 09/23/2013 [facility] ENDOSCOPY 08/10/2013 [facility] ERCP N/A 08/14/2017 Procedure: ERCP; Surgeon: Jamey Hdz MD; Location: [facility] MEDICAL PROCEDURE UNIT HIP FRACTURE SURGERY [...] OTHER SURGICAL HISTORY Endobiliary stent placed at [facility] Removal of lesion Right 2009 Right hand [...] pleasant and talkative, alert and appropriate, conversant [facility] nurse and staff. HEENT: Atraumatic, patient [...] were reviewed along with EMS notes and [facility] record s if applicable. Medication and Allergy lists reviewed in [facility]. Nurses note and old record s were reviewed if available within [facility] ER course 18:11 - Patient care initiated. [...] Certified Why: If symptoms worsen Contact information: [address] [place] [address] New Prescriptions No medications on file Discontinued Medications No medications on file Discharge References/Attachments Laceration, Chin, Suture or Tape (Lao) Portions of this chart may have been created with [employer] voice recognition software. Occasi onal wrong-word or [...] | | + +--------+ +---------+------+ + | [id number]-[id number]-[id number] | Given | 02/18/20 | 0.5 mLs [...]
--- OUTSIDE RECORDS SUMMARY | ~2019-11-25 | XMS | Encounter Summary ---
Demographics + + + | Address | [address] | | | [place] [address] | + + + | Home Phone | | + + + | Preferred Language | Unknown | + + + | Marital Status | | + + + | Sabianism Affiliation | Unknown | + + + | Race | Unknown | + + + | Ethnic Group | Unknown | + + + Author + + + | Author | [facility] | | | and [place] | + + + | Organization | [facility] | | | [...] Team Providers + +------+ + | Care Lift Electrician Name | Role | Phone | + [...] + + | 08/14/ | Hospital | [facility] | Jamey Penny | Encounter for | | 2018 | Encounter | MED CTR OR INTRA OP | MD Sarkis [address] | removal of biliary | | | | [address] | [address] [place] | stent; Calculus of | | | | [place], [place] | [place] [address] | bile duct with acute | | | | [address] | [phone] | cholecystitis and | | | | [phone] | | obstruction | +--------+ + + [...] of ascending cholangitis and sepsis, treated at [facility]. Had ERCP with sphin cterotomy, stone extraction, and stent placement on 06/26/17. He underwent cholecystectomy in [place] and on the IOC there were possible [...] BACK SURGERY 1981 Lower back COLONOSCOPY 09/23/2013 [facility] ENDOSCOPY 08/10/2013 [facility] HIP FRACTURE SURGERY Left 2002 Pinning. Repeat in 2003 INGUINAL HERNIA REPAIR 2007 KNEE SURGERY 1968 KNEE SURGERY Right 1967 Open fracture reduction and internal fixation right knee in 1967 LAMINECTOMY Leg surgery Left 1959 Seven Reconstructive surgeries on his left leg and foot in the s with metal remaining . LUMBAR VERTEBRAL FUSION OTHER SURGICAL HISTORY Endobiliary stent placed at [facility] Removal of lesion Right 2010 Right hand [...] Class 2 (upper half of tonsil fossa) [place] [employer] of Anesthesia Grade:ASA 2 - A [...] Electronically Signed by: Jamey Penny MD 08/14/2017 [facility] VERIFICATION OF CONSENT (PARQ) The patient was counseled regarding the procedure, its indications, risks, potential compli cations and alternatives. Any questions were answered. Consent was obtained. Jamey Penny MD, 08/14/2017 12:59 [facility] Portions of this chart may have been created with [employer] voice recognition software. Occasi onal wrong-word or [...] INSTRUCTIONS Patient: William Burns : 1935 Acct: [id number] Exam Date: Monday, August 14, 2017 Doctor: [...] fatty foods such as [place], hamburgers, kirkland, ham and pork products, will [...] + + | Performing | Address | City/State/[facility] | Phone Number | | [...] 08/14/2017 | [place] | | 12:57 PMMRN: [id number] #: [id number] of : | | | 5Admit Type: AmbulatoryAge: 82Room: [facility] 02Gender: MaleNote | | | Status: FinalizedAttending MD: JAMEY PENNY , [facility]cedure: | | | ERCPIndications: Bile duct stone(s), Biliary stent | | | removalProviders: JAMEY PENNY MD, Kiah Orozco, | | | RN, Klaus Loco, RAYRAY, Vani Wisdom, | | | Auxiliary Operator, Yinka Dominguez MD | | | [...] the procedure well.Findings: A | | | pick remover film of the abdomen was obtained. Surgical [...] | | was it seen on the pick remover image. - Several filling defects | | [...] Out: | | | 1:58:46 PM [facility], [address] [place] [address], | | | [place] [address] | | | - KUB today to [...] Out: 1:58:46 PM | | | [facility], [facility], [place], [place] | | | [address] | | + + -+ + +---------+ [...] + | [facility] | [address] | [place] | [phone] | | [facility] | | [address] | | | - LABORATORY | | [...] | | | | mg/dL | [facility] | | | | | | MEDICAL | | | | | | CENTER - | | | | | | LABORATORY | | + + + + + + | eGFR if not | >60Comment: GLOMERULAR | >=60 | [facility] | | | | FILTRATION | mL/min/1.73m2 | [facility] | | | [place] | RATE,ESTIMATED | | MEDICAL | | | | mL/min/1.95r3Elgk than | | CENTER - | | [...] | | | | | mg/dL | [facility] | | | | | | MEDICAL | | | | | | CENTER - | | | | | | LABORATORY | | + + + + + + | Albumin | 4.0 | 3.2 - 5.0 g/dL | [facility] | | | | | | [facility] | | | | | | MEDICAL [...] [address] | [place] | [phone] | | [facility] | | [address] | | | - LABORATORY | | [...] + + | [facility]. | [address] | [place] | [phone] | | [facility] | | [address] | | | - LABORATORY | | [...]
--- OUTSIDE RECORDS SUMMARY | ~2019-11-25 | XMS | Encounter Summary ---
Demographics + + + | Address | [address] | | | [place] [address] | + + + | Home Phone | | + + + | Preferred Language | Unknown | + + + | Marital Status | | + + + | Mosque Affiliation | NON | + + + [...] Team Providers + +------+ + | Care Tip Cutter Name | Role | Phone | + +------+ + | Herlinda Maldonado | PCP | | + +------+ + Encounter Details +--------+ + + + + | Date | Type | Department | Care Team | Description | +--------+ + + + + | 06/28/ | Document-Sc | Health Information | Other, Faculty | | | 2018 | anned | Services [address] | [phone] | | | | | [address] | | | | | | Mailcode: OP17A | | | | | | [facility] | | | | | | [place], [place] | | | | | | [address] | | | | | | [phone] | | | +--------+ + + + [...]
--- OUTSIDE RECORDS SUMMARY | ~2019-11-25 | XMS | Encounter Summary ---
Demographics + + + | Address | [address] | | | [place] [address] | + + + | Home Phone | | + + + | Preferred Language | Unknown | + + + | Marital Status | | + + + | Evangelical Affiliation | NON | + + + [...] Team Providers + +------+ + | Care Record Maker Name | Role | Phone | [...] [address] | | | | | [place], [place] | [place], [place] | | | | | [address] | [address] | | | | | [phone] | [phone] | | | | | | | [...]
--- OUTSIDE RECORDS SUMMARY | ~2019-11-25 | XMS | Encounter Summary ---
Demographics + + + | Address | [address] | | | [place] [address] | + + + | Home Phone [...] Team Providers + +------+ + | Care Undercoater Name | Role | Phone | + [...] | | | | | [facility]b [facility] | [facility] | | | | | [facility] Admitting | [place], [place] | | | | | Desk Located on the | [address] | | | | | 9th floor | [phone] | | | | | [place], [place] | | | | | | [address] | | | +--------+ + + + [...] + | Urethr | 06/26/17; 09; [facility]; | 06/26/17 09 by | 06/27/17 1100 by | | al | Veena-nita Arriaga; 06/27/17; 1100 | Leonor Peck RN | Lani Chicas RN | | Cathet | | | | | er | | | | +--------+ + + + | [facility] | 06/26/17; 0900; Dr. Garcia; [facility]; | 06/26/17 0900 by | 06/27/17 [...]
--- OUTSIDE RECORDS SUMMARY | ~2019-11-25 | XMS | Encounter Summary ---
Demographics + + + | Address | [address] | | | [place] [address] | + + + | Home Phone [...] Team Providers + +------+ + | Care Correctional Corporal Name | Role | Phone | + [...] | | 2018 | | Center at [facility] [address] | MD Rashida [address] [facility] | Received (07/16/2017- | | | | [address] | [facility] | Current ED | | | | Mailcode: Center | [place], [place] | Admission Notes, | | | | for Health and | [address] | Labs, Imaging | | | | Healing, Building 2 | [phone] | Reports and Surgery | | | | [place], [place] | | Report with | | | | [address] | | Pathology- St. | | | | [phone] | | Roshan) | +--------+ + + [...]
--- OUTSIDE RECORDS SUMMARY | ~2019-11-25 | XMS | Encounter Summary ---
Demographics + + + | Address | [address] | | | [place] [address] | + + + | Home Phone [...] Team Providers + +------+ + | Care Cytology Laboratory Manager Name | Role | Phone | [...] fixation of | | | | Rd [facility] | [facility] [address] | acetabular | | | | Hospital Admitting | [place], [place] | lesly-prosthetic | | | | Desk Located on the | [address] | fracture | | | | 9th floor | [phone] | | | | | [place], [place] | | | | | | [address] | | | +--------+---------+ + + + [...] be differe nt from the original. [facility] DEPARTMENT OF ORTHOPAEDICS & REHABILITATION INPATIENT HOSPITAL DISCHARGE SUMMARY & INTERDISCIPLINARY INSTRUCTIONS Patient: William Burns CSN: [id number] Admission Date: 05/31/2018 Discharge Date: 06/06/2018 Attending Physician: Nguyễn Shepard MD PCP: SHAHEEN Love Service: [facility] Orthopaedics & Rehabilitation Diagnoses Principal Final Diagnosis: Left anterior column posterior hemitransverse acetabular fracture (involving 2 columns). Additional Diagnoses: COPD (chronic obstructive pulmonary disease) ([facility]) Essential hypertension Physical deconditioning Procedures 06/03/2018 Closed [...] they suspect your wound is infected. Call [facility] Orthopedics first at . Activity NON Weight bearing on left leg. For approximately 4 weeks to be determined at postoperative clinic visit. Condition on Discharge Stable Follow-Up Appointments ORTHOPEDICS OUTPATIENT CLINIC: Future Appointments Provider Department Dept Phone Center 07/02/2018 1:40 PM Nguyễn Chance Working Orthopaedics at [facility] [phone] Orthopedics PCP: As needed for any medical [...] mg by mouth once daily at bedtime. [facility] Orthopaedic Service Pain Policy At [...] administration instructions. - Call Orthopedic Clinic at [phone] if any persistent, localized swelling that does [...] and ask for the orthopaedic surgery resident defensive secondary coach. Additional Post-Op Instructions / What to Expect [...] feel that you will need more, call [phone] during business hours in order to get [...] a SNF "I certify that post-hospital inpatient half-way facility care is medically necessar y on [...] been our pleasure. ELISE Mckeon [facility] Department of Orthopaedics & Rehabilitation [address] Mail Code: OP31 Dileep CHAPPELL [id number] documented in t his encounter Medications at [...] to have left pelvic fracture, transferred to [facility] Orthopedic Surgery service for surg ical management. [facility] initially consulted for pre-operative evaluation. [...] says he uses sparingly. On arrival to [facility] he was on 4 L [...] Sanchez MD Attending Physician Clinical Hospitalist Services [facility] Pager [phone] Please call or page me with any questions or concerns. Doe Newman MD - 06/06/2018 9:11 AM PST Orthopaedic Surgery Progress Note Patient: /Age: MRN: CSN: Date: Admission Date: Hospital Day: Orthopaedic Attending: William Burns 1935 83 y.o. [id number] 06/06/2018 05/31/2018 6 Nguyễn Shepard MD Diagnosis: [...] to have left pelvic fracture, transferred to [facility] Orthopedic Surgery service for surg ical management. [facility] initially consulted for pre-operative evaluation. [...] says he uses sparingly. On arrival to [facility] he was on 4 L [...] Sanchez MD Attending Physician Clinical Hospitalist Services [facility] Pager [phone] Please call or page me with any questions or concerns. Doe Newman MD - 06/05/2018 7:10 AM PST Orthopaedic Surgery Progress Note Patient: /Age: MRN: CSN: Date: Admission Date: Hospital Day: Orthopaedic Attending: William Burns 1935 83 y.o. [id number] 06/05/2018 05/31/2018 5 Nguyễn Shepard MD Diagnosis: [...] 2 seconds Doe Gongora MD [facility] [place] Department of Orthopaedics & Rehabilitation [address] [place] [address] Mail Code: OP31 [facility] [address] Kg Snider MD - 06/04/2018 10:03 AM [...] to have left pelvic fracture, transferred to [facility] Orthopedic Surgery service for surg ical management. [facility] initially consulted for pre-operative evaluation. [...] says he uses sparingly. On arrival to [facility] he was on 4 L [...] Sanchez MD Attending Physician Clinical Hospitalist Services [facility] Pager [phone] Please call or page me with any questions or concerns. Devendra Scales MD - 06/04/2018 7:48 AM PST Orthopaedic Surgery Progress Note Patient: /Age: MRN: CSN: Date: Admission Date: Hospital Day: Orthopaedic Attending: William Bursn 1935 83 y.o. [id number] 06/04/2018 05/31/2018 4 Nguyễn Shepard MD Diagnosis: [...] [facility] [...] refill < 2 seconds Doe Gongora MD [facility] Department of Orthopaedics & Rehabilitation [address] [place] [address] Mail Code: OP31 [facility] [address] Yordy, Devendra Allen MD - 06/03/2018 8:32 PM PST [facility] DEPARTMENT OF ORTHOPAEDICS & REHABILITATION [...] MD Orthopaedic Surgery Resident 06/03/2018, 8:33 PM [facility] Department of Orthopaedics & Rehabilitation [address] Mail Code: OP31 [place] [address] Jade Messina MD - 06/02/2018 8:36 AM [...] Please call Orthopaedic Trauma and Fracture at [phone] to schedule a followup within 2 weeks from discharge. ALEXA VICKERS MD Pager: [phone] 06/02/2018 Doe Newman MD - 06/01/2018 8:27 AM PST Orthopaedic Surgery Progress Note Patient: /Age: MRN: CSN: Date: Admission Date: Hospital Day: Orthopaedic Attending: William Ramirez Grant 1935 83 y.o. [id number] 06/01/2018 05/31/2018 1 Nguyễn Shepard MD Diagnosis: [...] [facility] with ORTHO TRAUMA & [...] not performed Doe Gongora MD [facility] [place] Department of Orthopaedics & Rehabilitation [address] Mail Code: OP31 Dileep CHAPPELL [id number] documented in this enco unter Plan of [...] | + + + + + | [facility] [facility] | [address] | [place] [address] | | | SERVICES, CORE | RICHARD [...] | | | LABORATORY | | | KENYAN | | | SERVICES, | | | [...] + + + + + | [facility] | [address] | [place] [address] | | | SERVICES, CORE | RICHARD [...] LABORATORY | [address] | [place] [address] | | | SERVICES, CORE | PARK [...] | | | LABORATORY | | | KENYAN | | | SERVICES, | | | [...] | + + + + + | [facility] | [address] | [place] [address] | | | SARA, YOKASTA | RICHARD [...] | + + + + + | [facility] | [address] | [place] [address] | | | SERVICES, CORE | PARK [...] | + + + + + | [facility] | [address] | [place] [address] | | | SERVICES, CORE | [address] | | | + + + + + X-RAY PORTABLE 2 VIEW ABDOMEN (KUB AND UPRIGHT) (06/04/2018 2:32 PM PST) + + | Specimen | + + | | + + + + + | Narrative | Performed At | + + + | EXAM: TX 2 VIEW ABDOMEN (KUB AND UPRIGHT) History: [...] Note | + + | Service Account, [employer] Res In Interface - 06/04/2018 4:24 PM PST EXAM: TX 2 VIEW | | ABDOMEN (KUB AND [...] | + + + + + | [employer] [facility] | [address] | [place] [address] | | | SERVICES, CORE | RICHARD [...] | + + + + + | [facility] | [address] | [place] [address] | | | SERVICES, CORE | PARK [...] | + + + + + | [facility] | [address] | [place] [address] | | | SERVICES, CORE | RICHARD [...] | | | LABORATORY | | | KENYAN | | | SERVICES, | | | [...] | + + + + + | [employer] | [address] | [place] [address] | | | SERVICES, CORE | RICHARD [...] | | Attending Surgeon: Nguyễn Shepard MD Highway Engineer(s): Devendra Allen | | MD Avinash. Preoperative [...] He | | was transferred to the [facility]. A sacral bump consisting of 5 [...] problem was referred to my care at [facility] by another | | orthopaedic surgeon. The patient is from the [facility] and traveled many miles to | | get to [facility], bypassing several other hospitals due [...] 06/03/2018 14:26:09DT: | | 06/03/2018 16:58:33Job #: [id number] | + + MAGNESIUM, PLASMA (06/03/2018 4:37 [...] | + + + + + | [facility] | [address] | [place] [address] | | | SERVICES, CORE | RICHARD [...] OF | [address] | [place], [place] | | | CARDIOLOGY | [address] | [address] | | + + + + + [...] AMADOU | [address] | [place], [place] | | | DILAN [facility] | [address] | [address] | | | TESTS | | | [...] [facility] | [address] | [place], [place] | | | DILAN [facility] | [address] | [address] | | | TESTS | | | [...] | + + + + + | [facility] | [address] | [place] [address] | | | SERVICES, CORE | RICHARD [...] | | | LABORATORY | | | KENYAN | | | SERVICES, | | | [...] | + + + + + | [facility] | [address] | [place] [address] | | | SERVICES, CORE | RICHARD [...] OF | [address] | [place], [place] | | | CARDIOLOGY | [address] | [address] | | + + + + + [...] LABORATORY | [address] | [place] [address] | | | SERVICES, CORE | PARK [...] | + + + + + | [facility] | [address] | [place] [address] | | | SERVICES, CORE | RICHARD [...] | | | LABORATORY | | | KENYAN | | | SERVICES, | | | [...] | + + + + + | [facility] | [address] | [place] [address] | | | SERVICES, CORE | PARK [...] LABORATORY | [address] | [place] [address] | | | SERVICES, | [address] [...] | + + + + + | [facility] | [address] | [place] [address] | | | SERVICES, | [address] [...] | + + + + + | [facility] | [address] | [place] [address] | | | SERVICES, YOKASTA | [address] | | | + + + + + X-RAY KNEE 2 VIEWS LEFT (06/01/2018 11:48 AM PST) + + | Specimen | + + | | + + + + + | Narrative | Performed At | + + + | EXAM: KNEE 2 VIEWS LEFT HISTORY: eval traction pin placement | [facility] | | COMPARISON: None. FINDINGS/IMPRESSION: [...] | + + + + + | [facility] | [address] [facility] | [place] [address] | | | SERVICES, CORE | RICHARD [...] | | | LABORATORY | | | KENYAN | | | SERVICES, | | | [...] | + + + + + | [facility] | [address] | [place] [address] | | | SERVICES, CORE | RICHARD [...] Note | + + | Service Account, [employer] Res In Interface - 06/01/2018 9:25 AM [...] LABORATORY | [address] | [place] [address] | | | SERVICES, CORE | PARK [...] | | | LABORATORY | | | KENYAN | | | SERVICES, | | | [...] the MDRD equation recommended by the | [facility] | | National Kidney Disease [...] | + + + + + | [facility] | [address] | [place] [address] | | | YOKASTA RUIZ | RICHARD [...] 06/01/18 at | | | 1647, Until [facility] 06/06/18 at 2229, | | | [...]
--- OUTSIDE RECORDS SUMMARY | ~2019-11-25 | XMS | Encounter Summary ---
Demographics + + + | Address | [address] | | | [place] [address] | + + + | Home Phone [...] Team Providers + +------+ + | Care Safety And Health Manager Name | Role | Phone | [...] | Procedural Unit at | MD Rashida [address] | (ERCP f/u) | | | | Mikayla Borges [address] | | | | | [address] | [place], [place] | | | | | [place]nie [place], | [address] | | | | | 4th floor [place], | [phone] | | | | | [place] [address] | | | | | | [phone] | | | +--------+ + + + [...]
--- OUTSIDE RECORDS SUMMARY | ~2019-11-25 | XMS | Encounter Summary ---
Demographics + + + | Address | [address] | | | [place] [address] | + + + | Home Phone [...] Team Providers + +------+ + | Care Dust Collector Operator Name | Role | Phone | [...] as of this encounter Progress Notes Interface, Fluid Designer In - 11/26/2005 3:10 AM PDT ULTRASOUND [...] Bay M.D. and Waylon Simeon, Ophthalmic Echographer [place] / [id number] / [id number] / [id number] / Tdocumented in this encounter Plan of [...] | Transcriptions | + + | Interface, Fluid Designer In - 11/26/2005 3:10 AM PDT [...] andWaylon Simeon, Ophthalmic | | EchographerME / [id number] / [id number] / [id number] / T: 07/17/2002 | |HISTORY: This gentleman [...] |Waylon Simeon, Ophthalmic Echographer | | | |[place] / HS | |[id number] / [id number] / [id number] / | | | | | + + documented in this encounter Visit Diagnoses Not on filedocumented in this encounter"
--- OUTSIDE RECORDS SUMMARY | ~2019-11-25 | XMS | Encounter Summary ---
Demographics + + + | Address | [address] | | | [place] [address] | + + + | Home Phone [...] Team Providers + +------+ + | Care Personnel Worker Name | Role | Phone | [...] | 07/04/ | Telephone | Cardiology | Frakno Garcia | Other | | 2018 | | Arrhythmia at [facility] | MD eHrson [address] [facility] | | | | | [address] | [address] | | | | | Mailcode: CH7A | [place], [place] | | | | | [facility] | [address] | | | | | and Healing, | [phone] | | | | | [place] [address] [facility] | | | | | | Floor [place], [place] | | | | | | [address] | | | | | | [phone] | | | +--------+ + + + [...]
--- OUTSIDE RECORDS SUMMARY | ~2019-11-25 | XMS | Encounter Summary ---
Demographics + + + | Address | [address] | | | [place] [address] | + + + | Home Phone [...] Team Providers + +------+ + | Care Coin Machine Service Repairer Name | Role | Phone | [...] | | | | | [facility] | [address] | | | | | thiasis | [address]ites[address] P[address] | Esmeralda | | | | | Procedures | [place] | [place], 4th | | | | | CONSULT TO | [place], [place] | floor | | | | | [place] | [address] | [place], [place] | | | | | PROCEDURE: | Phone: | [address] | | | | | ERCP / | [phone] | Phone: | | | | | BILIARY | Fax: | [phone] | | | | | MANOMETRY | [phone] | Fax: | | | | | | | [phone] | +--------+--------+ + + + + Encounter Details +--------+ + + + + | Date | Type | Department | Care Team | Description | +--------+ + + + + | 06/27/ | Button Reclaimer | Digestive Health | Lyla Mendoza | Choledocholithiasis | | 2018 | | De Beque at [facility] [address] | MD Rashida [address] [facility] | (Primary Dx) | | | | [address] | [address] | | | | | Mailcode: Center | [place], [place] | | | | | for Health and | [address] | | | | | [facility], [address] | [phone] | | | | | [facility] [place] | | | | | | [address] | | | | | | [phone] | | | +--------+ + + + [...]
--- OUTSIDE RECORDS SUMMARY | ~2019-11-25 | XMS | Encounter Summary ---
Demographics + + + | Address | [address] | | | [place] [address] | + + + | Home Phone [...] Providers + +------+ + | Care Operations Vice President Name | Role | Phone | + [...] 2019 | on | [facility] | [address] | | | | | [address] | [place], | | | | | [place], | [place] [address] | | | | | [place] [address] | [phone] | | | | | [phone] | | | +--------+ + + + [...]
--- OUTSIDE RECORDS SUMMARY | ~2019-11-25 | XMS | Encounter Summary ---
Demographics + + + | Address | [address] | | | [place] [address] | + + + | Home Phone | | + + + | Preferred Language | Unknown | + + + | Marital Status | | + + + | Zoroastrianism Affiliation | NON | + + + [...] Providers + +------+ + | Care Supervisor Machine Setter Name | Role | Phone [...] | | | | [facility] | | | | | | Hospital Admitting | | | | | | Desk Located on the | | | | | | 9th floor | | | | | | [place], [place] | | | | | | [address] | | | +--------+ + + + [...]
--- OUTSIDE RECORDS SUMMARY | ~2019-11-25 | XMS | Encounter Summary ---
Demographics + + + | Address | [address] | | | [place] [address] | + + + | Home Phone | | + + + | Preferred Language | Unknown | + + + | Marital Status | | + + + | Taoist Affiliation | NON | + + + [...] Team Providers + +------+ + | Care Basic Sciences Dean Name | Role | Phone | + +------+ + | Herlinda Maldonado | PCP | | + +------+ + Encounter Details +--------+ + + + + | Date | Type | Department | Care Team | Description | +--------+ + + + + | 06/26/ | Document-Sc | Health Information | Other, Faculty | | | 2018 | anned | Services [address] | [phone] | | | | | [address] | | | | | | Mailcode: OP17A | | | | | | [facility] [place] [place] | | | | | | [place], [place] | | | | | | [address] | | | | | | [phone] | | | +--------+ + + + [...]
--- OUTSIDE RECORDS SUMMARY | ~2019-11-25 | XMS | Encounter Summary ---
Demographics + + + | Address | [address] | | | [place] [address] | + + + | Home Phone [...] Team Providers + +------+ + | Care Night Stocker Name | Role | Phone | + [...] | | | | | [place], | | | | | | [place] [address] | | | +--------+--------+ + + + [...]
--- OUTSIDE RECORDS SUMMARY | ~2019-11-25 | XMS | Encounter Summary ---
Demographics + + + | Address | [address] | | | [place] [address] | + + + | Home Phone [...] Team Providers + +------+ + | Care Deputy Coroner Investigator Name | Role | Phone | + [...] | | | | Rd [facility] | [facility] [address] | acetabular | | | | Hospital Admitting | [place], [place] | lesly-prosthetic | | | | Desk Located on the | [address] | fracture | | | | 9th floor | [phone] | | | | | [place], [place] | | | | | | [address] | | | +--------+---------+ + + + [...] differe nt from the original. [facility] [place] DEPARTMENT OF ORTHOPAEDICS & REHABILITATION INPATIENT HOSPITAL DISCHARGE SUMMARY & INTERDISCIPLINARY INSTRUCTIONS Patient: William Burns CSN: [id number] Admission Date: 05/31/2018 Discharge Date: 06/06/2018 Attending Physician: Nguyễn Shepard MD PCP: SHAHEEN Love Service: 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 Additional Diagnoses: COPD (chronic obstructive pulmonary disease) ([facility]) Essential hypertension Physical deconditioning Procedures 06/03/2018 [...] Nguyễn Chance Working Orthopaedics at [facility] [phone] Orthopedics PCP: As needed for any medical [...] administration instructions. - Call Orthopedic Clinic at [phone] if any persistent, localized swelling that does [...] and ask for the orthopaedic surgery resident superintendent institution. Additional Post-Op Instructions / What to Expect [...] a SNF "I certify that post-hospital inpatient correction facility care is medically necessar y on [...] Condition on Discharge: Improved Discharging Patient To: Halfway Facility Date and Time of Discharge Summary Completion: 06/07/2018, 2:45 PM Discharging Provider: ELISE Mckeon Discharging Attending: Nguyễn Shepard MD Thank you for the opportunity to take care of William Burns during this inpatient stay, it has been our pleasure. ELISE Mckeon [facility] [facility] Department of Orthopaedics & Rehabilitation [address] [facility] Mail Code: OP31 Dileep CHAPPELL [id number] documented in t his encounter Medications at [...] Orthopedic Surgery service for surg ical management. [facility] initially consulted for pre-operative evaluation. Nausea/Vomiting [...] Hospitalist Services [facility] Pager [phone] Please call or page me with any questions or concerns. Doe Newman MD - 06/06/2018 9:11 AM PST Orthopaedic Surgery Progress Note Patient: /Age: MRN: CSN: Date: Admission Date: Hospital Day: Orthopaedic Attending: William Burns 1935 83 y.o. [id number] 06/06/2018 05/31/2018 6 Nguyễn Shepard MD Diagnosis: [...] Orthopedic Surgery service for surg ical management. [facility] initially consulted for pre-operative evaluation. Nausea/Vomiting [...] Hospitalist Services [facility] Pager [phone] Please call or page me with any questions or concerns. Doe Newman MD - 06/05/2018 7:10 AM PST Orthopaedic Surgery Progress Note Patient: /Age: MRN: CSN: Date: Admission Date: Hospital Day: Orthopaedic Attending: William Burns 1935 83 y.o. [id number] 06/05/2018 05/31/2018 5 Nguyễn Shepard MD Diagnosis: [...] < 2 seconds Doe Gongora MD [facility] [place] Department of Orthopaedics & Rehabilitation [address] [place] [address] Mail Code: OP31 [facility] [address] Kg Snider MD - 06/04/2018 10:03 AM [...] Orthopedic Surgery service for surg ical management. [facility] initially consulted for pre-operative evaluation. Nausea/Vomiting [...] Hospitalist Services [facility] Pager [phone] Please call or page me with any questions or concerns. Devendra Scales MD - 06/04/2018 7:48 AM PST Orthopaedic Surgery Progress Note Patient: /Age: MRN: CSN: Date: Admission Date: Hospital Day: Orthopaedic Attending: William Burns 1935 83 y.o. [id number] 06/04/2018 05/31/2018 4 Nguyễn Shepard MD Diagnosis: [...] [facility]THO [facility] & FRACT[facility], [...] [facility] Department [facility]opaedics & Rehabilitation [address] [place] [address] Mail Code: OP31 [facility] [address] Yordy, Devendra Allen MD - 06/03/2018 8:32 PM PST [facility] DEPARTMENT OF ORTHOPAEDICS & REHABILITATION POST-OPERATIVE [...] Hospital Department of Orthopaedics & Rehabilitation [address] [facility] Mail Code: OP31 [place] [address] Jade Messina MD - 06/02/2018 8:36 AM [...] Please call Orthopaedic Trauma and Fracture at [phone] to schedule a followup within 2 weeks from discharge. ALEXA VICKERS MD Pager: [phone] 06/02/2018 Doe Newman MD - 06/01/2018 8:27 AM PST Orthopaedic Surgery Progress Note Patient: /Age: MRN: CSN: Date: Admission Date: Hospital Day: Orthopaedic Attending: William Ramirez Grant 1935 83 y.o. [id number] 06/01/2018 05/31/2018 1 Nguyễn Shepard MD Diagnosis: [...] [facility] with ORTHO TRAUMA & [...] Reflexes: not performed Doe Gongora MD [facility] [place] Department of Orthopaedics & Rehabilitation [address] [facility] Mail Code: OP31 Dileep CHAPPELL [id number] documented in this enco unter Plan of [...] | + + + + + | [facility] | [address] | [place] [address] | | | SERVICES, CORE | RICHARD [...] | | | LABORATORY | | | VINCENTIAN | | | SERVICES, | | | [...] + + + + | [facility] | [address] | [place] [address] | | | SERVICES, CORE | RICHARD [...] LABORATORY | [address] | [place] [address] | | | SERVICES, CORE | PARK [...] | | | LABORATORY | | | VINCENTIAN | | | SERVICES, | | | [facility] | [address] | [place] [address] | | | SARA, YOKASTA | RICHARD [...] | + + + + + | [facility] | [address] | [place] [address] | | | SERVICES, CORE | PARK [...] | + + + + + | [facility] | [address] | [place] [address] | | | SERVICES, CORE | RICHARD [...] Note | + + | Service Account, [employer] Res In Interface - 06/04/2018 4:24 PM [...] | + + + + + | [employer] | [address] | [place] [address] | | | SERVICES, CORE | RICHARD [...] | + + + + + | [facility] | [address] | [place] [address] | | | SERVICES, CORE | PARK [...] | + + + + + | [facility] | [address] | [place] [address] | | | SERVICES, CORE | RICHARD [...] | | | LABORATORY | | | VINCENTIAN | | | SERVICES, | | | [...] | + + + + + | [employer] | [address] | [place] [address] | | | SERVICES, CORE | RICHARD [...] | | Attending Surgeon: Nguyễn Shepard MD Computer Aide(s): Devendra Allen | | MD Avinash. Preoperative [...] | | was transferred to the [facility]. A sacral bump consisting of 5 [...] orthopaedic surgeon. The patient is from the [facility] and traveled many miles to | [...] 06/03/2018 14:26:09DT: | | 06/03/2018 16:58:33Job #: [id number] | + + MAGNESIUM, PLASMA (06/03/2018 4:37 [...] [facility] | [address] | [place] [address] | | | SERVICES, CORE | RICHARD [...] OF | [address] | [place], [place] | | | CARDIOLOGY | [address] | [address] | | + + + + + [...] [facility] | [address] | [place], [place] | | | DILAN [facility] [place] | [address] | [address] | | | TESTS | | | [...] [facility] | [address] | [place], [place] | | | DILAN TURNER OF [facility]ARE | [address] | [address] | | | TESTS | | | [...] | + + + + + | [facility] | [address] | [place] [address] | | | SERVICES, CORE | RICHARD [...] | | | LABORATORY | | | VINCENTIAN | | | SERVICES, | | | [...] | + + + + + | [facility] | [address] [facility] | [place] [address] | | | SERVICES, CORE | RICHARD [...] OF | [address] | [place], [place] | | | CARDIOLOGY | [address] | [address] | | + + + + + [...] LABORATORY | [address] | [place] [address] | | | SERVICES, CORE | PARK [...] | + + + + + | [facility] | [address] | [place] [address] | | | SERVICES, CORE | RICHARD [...] | | | LABORATORY | | | VINCENTIAN | | | SERVICES, | | | [...] + + | [facility] | [address] | [place] [address] | | | SERVICES, CORE | PARK [...] LABORATORY | [address] | [place] [address] | | | SERVICES, | [address] [...] | + + + + + | [facility] | [address] | [place] [address] | | | SERVICES, | [address] [...] | + + + + + | [facility] | [address] | [place] [address] | | | SERVICES, YOKASTA | RICHARD [...] | + + + + + | [facility] | [address] [facility] | [place] [address] | | | SERVICES, CORE | RICHARD [...] | | | LABORATORY | | | VINCENTIAN | | | SERVICES, | | | [...] | + + + + + | [facility] | [address] | [place] [address] | | | SERVICES, CORE | RICHARD [...] Note | + + | Service Account, [employer] Res In Interface - 06/01/2018 9:25 AM [...] Fortino Denis MD | | Dictation initiated: Fotrino Denis MD 06/01/2018 9:22 AM | |There [...] LABORATORY | [address] | [place] [address] | | | SERVICES, CORE | PARK [...] | | | LABORATORY | | | VINCENTIAN | | | SERVICES, | | | [...] | + + + + + | [facility] | [address] | [place] [address] | | | YOKASTA RUIZ | RICHARD [...] 06/01/18 at | | | 1647, Until [facility] 06/06/18 at 2229, | | | [...]
--- OUTSIDE RECORDS SUMMARY | ~2019-11-25 | XMS | Encounter Summary ---
Demographics + + + | Address | [address] | | | [place] [address] | + + + | Home Phone | | + + + | Preferred Language | Unknown | + + + | Marital Status | | + + + | Zoroastrianism Affiliation | NON | + + + | Race | White | + + + | Ethnic Group | Not or | + + + Author + + + | Author | [facility] | + + + | Organization | [facility] | + + + | Address | Unknown | + + + | Phone | Unavailable | + + + Support + + +---------+ + | Name | Relationship | Address | Phone | + + +---------+ + | None Per Pt | ECON | Unknown | Unavailable | + + +---------+ + Care Team Providers + +------+ + | Care Damper Worker Name | Role | Phone | [...] | | | [place], | [place] [address] | | | | | [place] [address] | [phone] | | | | | [phone] | | | +--------+ + + + [...]
--- OUTSIDE RECORDS SUMMARY | ~2019-11-25 | XMS | Encounter Summary ---
Demographics + + + | Address | [address] | | | [place] [address] | + + + | Home Phone [...] Team Providers + +------+ + | Care Naturopathic Oncology Provider Name | Role | Phone | + [...] | Transcriptions | + + | Interface, Nutritional Yeast Supervisor In - 11/26/2005 3:10 AM PDT | | [place] [address] | | [place], [place] [address] | | [facility] REC[facility]Med Rec No.: | | [id number] Date: [...] waspatched.Fozia Crawford M.D., PhDJTS:X44D: 06/19/2002T: | | 06/20/[id number] | |lid speculum was placed. Slit light [...] | |JTS:X44 | | | | | |[id number] | + + documented in this encounter Visit Diagnoses Not on filedocumented in this encounter"
--- OUTSIDE RECORDS SUMMARY | ~2019-11-25 | XMS | Encounter Summary ---
Demographics + + + | Address | [address] | | | [place] [address] | + + + | Home Phone [...] Team Providers + +------+ + | Care Laundromat Worker Name | Role | Phone | [...] | 2019 | | [facility] at [employer] | MD Meron [address] | | | | | for Health and | [address] | | | | | Healing [address] | [place], [place] | | | | | Ave Mailcode: | [address] | | | | | [facility] | [phone] | | | | | Health and Healing, | | | | | | [facility] | | | | | | Floor [place], [place] | | | | | | [address] | | | | | | [phone] | | | +--------+ + + + [...]
--- OUTSIDE RECORDS SUMMARY | ~2019-11-25 | XMS | Encounter Summary ---
Demographics + + + | Address | [address] | | | [place] [address] | + + + | Home Phone | | + + + | Preferred Language | Unknown | + + + | Marital Status | | + + + | Christian Affiliation | Unknown | + + + | Race | Unknown | + + + | Ethnic Group | Unknown | + + + Author + + + | Author | [facility] | | | and [place] | + + + | Organization | [facility] | | | [...] Team Providers + +------+ + | Care Health Inspector Name | Role | Phone | + +------+ + PCP | Unavailable | + +------+ + Encounter Details +--------+ + + + + | Date | Type | Department | Care Team | Description | +--------+ + + + + | 03/05/ | Hospital | [facility] | Wing Jennifer Hunter MD | REHABILITATION PROC | | 2002 - | Encounter | [facility] | [address] | NEC | | | | INPATIENT | [place], [place] | | | 03/09/ | | REHABILITATION [address] | [address] | | | 2002 | | MONIKA MIRZA | [phone] | | | | | [place], [place] | | | | | | [address] | | | | | | [phone] | | | +--------+ + + + [...]
--- OUTSIDE RECORDS SUMMARY | ~2019-11-25 | XMS | Encounter Summary ---
Demographics + + + | Address | [address] | | | [place] [address] | + + + | Home Phone [...] + + + | Author | [facility] | + + + | Organization | [facility] | + + + | Address | Unknown | + + + | Phone | Unavailable | + + + Support + + +---------+ + | Name | Relationship | Address | Phone | + + +---------+ + | None Per Pt | ECON | Unknown | Unavailable | + + +---------+ + Care Team Providers + +------+ + | Care Knitting Supervisor Name | Role | Phone | [...] | [address] | [address] | | | | | [address] Mailcode: [id number] | [place], | | | | | [place], [place] | [place] [address] | | | | | [address] | [phone] | | | | | [phone] | | | +--------+ + + + [...]
--- OUTSIDE RECORDS SUMMARY | ~2019-11-25 | XMS | Encounter Summary ---
Demographics + + + | Address | [address] | | | [place] [address] | + + + | Home Phone [...] Team Providers + +------+ + | Care Plastic Tool Maker Name | Role | Phone | [...] | Procedural Unit at | MD Rashida [address] | (ERCP f/u) | | | | Mikayla [address]es [address] | | | | | [address] | [place], [place] | | | | | [place], | [address] | | | | | 4th floor [place], | [phone] | | | | | [place] [address] | | | | | | [phone] | | | +--------+ + + + [...]
--- OUTSIDE RECORDS SUMMARY | ~2019-11-25 | XMS | Encounter Summary ---
Demographics + + + | Address | [address] | | | [place] [address] | + + + | Home Phone | | + + + | Preferred Language | Unknown | + + + | Marital Status | | + + + | Christian Affiliation | NON | + + + [...] Team Providers + +------+ + | Care Blueprint Maker Name | Role | Phone | [...] | | | | | ng | [address] | Mailcode: | | | | | Procedures | [address] | [facility] | | | | | PHYSICAL | [address] | for Health | | | | | THERAPY | [place], [place] | and Healing, | | | | | REFERRAL | [address] | Building 1, | | | | | | Phone: | [address] Floor | | | | | | [phone] | [place], [place] | | | | | | Fax: | [address] | | | | | | [phone] | Phone: | | | | | | | [phone] | | | | | | | Fax: | | | | | | | [phone] | +--------+--------+ + + + + Reason [...] + + | 06/26/ | Hospital | [address] | Alberto Miranda MD | | | 2018 - | Encounter | [facility] [address] | [address] | | | | | [address] [place] [address] | Carolina Guerra [place], | | | 06/30/ | | [place], [place] | [place] [address] | | | 2017 | | [address] | [phone] | | | | | [phone] | | | | | | | Vic Petty | | | | | | MD [place]erson [address] | | | | | | [address] | | | | | | [place], [place] | | | | | | [address] | | | | | | [phone] | | | | | | | [...] might be differen t from the original. [facility] Discharge Summary Discharging Provider: VIRGIL GRIMM [...] and intubated prior to tra nsfer to [facility]. Workup was notable for [...] Your Medications These medications were sent to [id number] [place] [address] [place] [address] Hours: 9AM-7PM MON - FRI / 9AM-6PM [...] Thank you for entrusting your care to [facility] Internal Medicine. If you have any problems or concerns before you are able to follow up with your Primary Care Provider, please call and ask the dam operator to page the attending physician, Vic Petty MD, wh o was caring for you at discharge. If that physician is not available, ask the dam operator to page the physician stone product fabricator for the Medical Teaching Service. Call us right away if any of the following occur: Recurrent abdominal pain Shaking chills or night sweats Other Discharge Orders and Instructions You will be called by the [facility] GI service within the next week to schedule a repeat appoint ment for ERCP and possible stent removal. Home Health Referral after Hospitalization Comments: I certify that this patient is under my care and that I, or Nurse Practitioner or Physician Collar Fuser working with me, had a face to face encounter with this patient on 06/30/2017 On behalf of Attending Physician: Vic Petty MD I am ordering and certify that the following services are medically necessary home health s [facility] Home Health Physical Therapy Evaluate and Treat I certify that the patient is homebound based on the following clinical findings Post-hospi tono weakness, decreased strength and endurance, and tires easily with minimal exertion Follow Up: Schedule the following appointment(s) when you get home DARYL MATHEWS MD . Specialty: Internal Medicine Contact information [facility] [address] [place] [address] [address] [facility] [address] Discharge Physical Exam: Last 24 [...] Acute respiratory failure with hypoxia ([facility]) Please refer to the resident discharge summary for additional details. Vic Petty MD, PhD Clinical Hospitalist and Medicine Teaching Services [facility] Pager [phone] I have spent 35 minutes with the [...] might be different from bella landin. PHYSICIAN EDUCATIONAL SIGN LANGUAGE INTERPRETER STUDENT PROGRESS NOTE FOR EDUCATIONAL PURPOSES ONLY [...] Q2H PRN ipratropium-albuterol 3 mL Q6H PRN cgnudwnd-uzjfacg-mhibotou-zinc QID PRN oxyCODONE (immediate release) 2.5-5 mg [...] Code status: FULL DOREEN Oconnell [facility] Physician Collar Fuser Program 06/29/17 Kang Zhang MD - 06/29/2017 [...] Hospital Problems 1) *Septic shock ([facility]) 2) Choledocholithiasis 3) Acute cholangitis 4) Klebsiella sepsis ([facility]) 5) Aspiration pneumonitis ([facility]) 6) S/P ERCP 7) COPD (chronic obstructive pulmonary disease) ([facility]) 8) Essential hypertension 82 year-old man with HTN, COPD not on supplemental oxygen, who presented to OSH with epigas tric pain and abnormal LFTs, admitted for septic shock due to acute cholangitis and acute hy poxic respiratory failure due to aspiration requiring intubation, transferred to [facility] MICU. Here found to [...] Hospitalist and Medicine Teaching Services [facility] Pager [phone] I have spent 26 minutes with the [...] interval not displayed. Micro: BLOOD CULTURE WORKUP [[id number]] (Abnormal) [facility] Collected: 06/26/17938 Lab Status: [...] Hospital Problems 1) *Septic shock ([facility]) 2) Choledocholithiasis 3) Acute cholangitis 4) Klebsiella sepsis ([facility]) 5) Aspiration pneumonitis ([facility]) 6) S/P ERCP 7) COPD (chronic obstructive pulmonary disease) ([facility]) 8) Essential hypertension Resolved Hospital Problems 9) Septic shock ([facility]) 10) Non-ST elevation myocardial infarction (NSTEMI), type 2 ([facility]) 11) Acute respiratory failure with hypoxia ([facility]) Assessment: William Burns is a [...] Primary Surrogate Decision Maker Sharon Rodriguez Daughter [phone] Dimas Xavier MD Internal Medicine, PGY-3 #[id number] Louis Hernandez MD - 06/28/2017 2:26 PM [...] management as outpatient (pt prefers facility near [place]) --> if develops post ERCP complications or [...] Horne - 06/28/2017 7:47 AM PST PHYSICIAN EDUCATIONAL SIGN LANGUAGE INTERPRETER STUDENT PROGRESS NOTE FOR EDUCATIONAL PURPOSES ONLY [...] Q2H PRN ipratropium-albuterol 3 mL Q6H PRN lqivmzxi-irvibsx-kbtwcnbz-zinc QID PRN oxyCODONE (immediate release) 2.5-5 mg [...] on klebsiella cultures for sensitivity. Spoke with Security Systems Specialist at [facility] @1330, N o sensitivity results yet from [...] IV/Airways/Catheters: PIV Code status: FULL SHONDA OconnellS [facility] Physician Collar Fuser Program 06/28/17 Alisha Rai M D - [...] 86 87 78 HCO3 22 24 23 QGGHA0NVO 24 25 24 V5KKAPKK 96.4 97.0 96.8 FIO2 0.80 0.25 0.21 [...] in the patient's condition). ALISHA MAYNARD MD [facility] [address] [place] [address] Camilo Amaya MD - 11/2017 6:00 AM PST [facility] MEDICAL ICU - PROGRESS [...] 6.5 mL/Kg (459.6 mL) RR: 22 bpm Haynes BW: 70.7 kg FiO2 21 fraction of [...] 87 78 HCO3 -- 22 24 23 UDF9YAD8 -- 108* 348 371 VBGPH 7.27* -- [...] Primary Surrogate Decision Maker Sharon Rodriguez Daughter [phone] This patient was staffed with Dr. Maynard, [...] duct clearance Rene Maldonado MD Gastroenterology Pager [phone] - Virginia Cerna MD - 06/26/2017 4:38 PM PSTFormatting of this note might be different from the origi nal. PRE PROCEDURE NOTE: MR# [id number] Subjective: William Burns is a 82 y.o. [...] 4 hours. Concern for choledocholithiasis. Transferred t [facility] this morning. Has history of COPD and [...] results for input(s): PH, PCO2, PO2, HCO3, XFYMF7ZKH, N4XKWUNG, K4JXUQCYW, FIO2 in the l ast 72 hours. [...] in the patient's condition). ALISHA MAYNARD MD [facility] [address] [place] [address] documented in this enco unter Plan of [...] | + +--------+ + + + | BM-CJ-IPP-HB,POC RT | Urgent | 06/26/2017 | | [...] + + + | ECG | Short MA interval | | [facility] | | [...] | [facility] | [address] [facility] | [place], [place] | | | CARDIOLOGY | [address] | [address] | | + + + + + [...] | + + + + + | [facility] | [address] | [place] [address] | | | SERVICES, CORE | PARK [...] | + + + + + | [facility] | [address] | [place] [address] | | | SERVICES, CORE | PARK [...] | | | LABORATORY | | | [place] | | | SERVICES, | | | [...] | + + + + + | [facility] | [address] | [place] [address] | | | SERVICES, [place] | [place] [...] LABORATORY | [address] | [place] [address] | | | SERVICES, [facility] | [address] | | | + [...] Note | + + | Service Account, [employer] In Interface - 06/28/2017 5:02 PM [...] AMAD[facility] | [address] | [place], [place] | | | YUE POINT OF CARE | [facility] | [address] | | | TESTS | | | [...] LABORATORY | [address] | [place] [address] | | | [place], [place] | PARK [...] [facility] | [address] | [place] [address] | | | SERVICES, CORE | PARK [...] | | | LABORATORY | | | [place] | | | SERVICES, | | | [...] [facility] | [address] | [place] [address] | | | SERVICES, [place] | PARK [...] | + + + + + | [facility] | [address] | [place] [address] | | | [place] [address] | [place] [...] (H) | 70 - 99 mg/dL | [facility] - | | | [...] TOBAR | [address] | [place], [place] | | | YUE POINT OF CARE | [address] | [address] | | | TESTS | | | [...] TOBAR | [address] | [place], [place] | | | [facility] | [address] | [address] | | | TESTS | | | [...] MARQU[facility] | [address] | [place], [place] | | | [facility] | [address] | [address] | | | TESTS | | | [...] | | | LABORATORY | | | [place] | | | SERVICES, | | | [...] | + + + + + | [facility] | [address] | [place] [address] | | | SERVICES, [place] | [place] [...] and volume. | LABORATORY | | | [place] [address] | + + + + + + + + | Performing | Address | City/State/Zipcode | Phone Number | | Organization | | | | + + + + + | [facility] | [address] | [place] [address] | | | [place] [address] | [place] [...] + + | [facility] | [address] | [place] [address] | | | SERVICES, CORE | PARK [...] LABORATORY | [address] | [place] [address] | | | SERVICES, [place] | [place] [...] | + + + + + | [facility] | [address] | [place] [address] | | | SERVICES, CORE | [place] [...] (H) | 70 - 99 mg/dL | [facility] - | | | GLUCOSE, | | [...] AMADOU | [address] | [place], [place] | | | [facility] | [facility] | [address] | | | TESTS | | | [...] LABORATORY | [address] | [place] [address] | | | SERVICES, CORE | PARK [...] [facility] | | | GRAVITY | Specific [place] | | LABORATORY | | | | [...] LABORATORY | [address] | [place] [address] | | | [place] [address] | [address] | | | + + + + + ERCP (06/27/2017 6:38 AM PST) + + | Specimen | + + | | + + + + + | Narrative | Performed At | + + + | MRN: | [facility] | | [id number] Date: 06/27/2017Patient Name: William Nair #: | ENDOSCOPY | | [id number] of : 1935SN: [id number] Type: | | | InpatientRoom: SORProcedure: ERCPIndications: | | | For therapy of ascending cholangitis; 82 yo M with | | | sepsis, elevated LFTs and US showing mary dil and 1.3 cm | | | CBDProviders: BRVALENTINA | | | Thompson MALDONADO MD (Doctor), JORDY SOLANO, | | | RN (Nurse), ESTELA DAMIAN, RN (Wedding Coordinator)Referring MD: | | | Requesting Provider: Medicines: [...] The | | | Olympus TJF-Q180V Duodenoscope #[id number] was | | | introduced through the [...] with acute | | | cholangitis. The word processor operator film was normal. The esophagus was [...] Initiated On: | | | 06/27/2017 6:38 [facility] Letter to: DARYL MATHEWS MD | | [...] + | MRN: | [facility] | | [id number] Date: 06/27/2017Patient Name: William Nair #: | ENDOSCOPY | | [id number] of : 1935SN: [id number] Type: | | | InpatientRoom: SORProcedure: ERCPIndications: | | | For therapy of ascending cholangitis; 82 yo M with | | | sepsis, elevated LFTs and US showing mary dil and 1.3 cm | | | CBDProviders: BRINTHA | | | Thompson MALDONADO MD (Doctor), JORDY SOLAON, | | | RN (Nurse), ESTELA DAMIAN RN (Wedding Coordinator)Referring MD: | | | Requesting Provider: Medicines: [...] The | | | Olympus TJF-Q180V Duodenoscope #[id number] was | | | introduced through the [...] with acute | | | cholangitis. The word processor operator film was normal. The esophagus was [...] Initiated On: 06/27/2017 | | | 6:38 [facility] Letter to: DARYL MATHEWS MD | | |06/27/2017 6:48:17 AM | | |Number of Addenda: 0 | | |Note Initiated On: 06/27/2017 6:38 AM | | |CC Letter to: | | | DARYL MATHEWS MD | | + + + + +---------+ + + | Performing | Address | City/State/[facility] | Phone Number | | Organization [...] | + + + + + | [facility] | [address] | [place] [address] | | | SERVICES, CORE | PARK [...] LABORATORY | [address] | [place] [address] | | | [place], [place] | [place] [...] | + + + + + | [facility] | [address] | [place] [address] | | | [place], [place] | [place] [...] | | | LABORATORY | | | [place] | | | SERVICES, | | | [...] + + | Performing | Address | City/State/[facility]ode | Phone Number | | Organization | | | | + + + + + | [facility] | [address] | [place] [address] | | | SERVICES, CORE | PARK [...] + + | ECG | Borderline prolonged MA | | [facility] | | | [...] OF | [address] | [place], [place] | | | CARDIOLOGY | [address] | [address] | | + + + + + [...] Note | + --------+ | Service Account, [employer] In Interface - 06/28/2017 9:20 AM [...] | + + + + + | [facility] | [address] | [place] [address] | | | SERVICES, CORE | [place] [...] (H) | 70 - 99 mg/dL | [facility] - | | | [...] + + + | [facility] | [address] | [place], [place] | | | [facility] | [address] | [address] | | | TESTS | | | [...] Note | + + | Service Account, [employer] In Interface - 06/27/2017 9:07 AM [...] [facility] | [address] | [place], [place] | | | YUE POINT OF CARE | [address] | [address] | | | TESTS | | | [...] OF | [address] | [place], [place] | | | CARDIOLOGY | [address] | [address] | | + + + + + [...] correct patient, procedure, | | | equipment, computer support analyst and site/side marked as required. | | [...] | | | | | | Pathology ResidentGrenora | | | | | | Louis [...] number | | | | | | [id number]. Bile duct, | | | | | [...] | + + + + + | [facility] | [address] | [place] [address] | | | PATHOLOGY | [address] [...] correct patient, | | | procedure, equipment, computer support analyst and site/side marked as required. | | [...] modified Seldinger technique (a | | | lnhycpfn-hmvl-xtk-pnxacj-aqgi-odjf-rkrpexi-dbp-rdjymjpk) was used for | | | vessel [...] LABORATORY | [address] | [place] [address] | | | SERVICES, CORE | [place] [...] | + + + + + | [facility] | [address] | [place] [address] | | | [place], [place] | [place] [...] | + + + + + | [facility] | [address] | [place] [address] | | | SERVICES, CORE | [place] [...] LABORATORY | [address] | [place] [address] | | | SERVICES, CORE | [place] [...] | | | LABORATORY | | | [place] | | | SERVICES, | | | [...] | + + + + + | [facility] | [address] | [place] [address] | | | [place] [address] | [place] [...] OF | [address] | [place], [place] | | | CARDIOLOGY | [address] | [address] | | + + + + + [...] | + + + + + | [facility] | [address] | [place] [address] | | | SERVICES, CORE | [place] [...] | + + + + + | [facility] [employer] | [address] | [place] [address] | | | SERVICES, CORE | [place] [...] | + + + + + | [facility] | [address] | [place] [address] | | | SERVICES, CORE | [place] [...] | + + | Service Account, Shana Carnad In Interface - 06/26/2017 12:57 PM PST [...] valves (2.5 - 3.5) INR APTT | [facility], CORE | | Therapeutic Range: (75 - 120) sec | | | Heparin levels of 0.35 - 0.7 U/mL | | + + + + + + + + | Performing | Address | City/State/Zipcode | Phone Number | | Organization | | | | + + + + + | [facility] | [address] | [place] [address] | | | SERVICES, [facility] | [address] | | | + [...] Note | + ----+ | Service Account, [employer] In Interface - 06/26/2017 12:57 PM [...] Note | + + | Service Account, [employer] In Interface - 06/26/2017 12:55 PM PST [...] Note | + + | Service Account, [employer] In Interface - 06/26/2017 12:53 PM [...] LABORATORY | [address] | [place] [address] | | | SERVICES, | [address] [...] LABORATORY | [address] | [place] [address] | | | SERVICES, | [address] [...] LABORATORY | [address] | [place] [address] | | | SERVICES, | [address] [...] + + + | ECG | Prolonged MA interval | | [facility] | | [...] DEPT OF | [address] | [place], [place] | | | CARDIOLOGY | [address] | [address] | | + + + + + [...] + | [facility] | [address] | [place] [address] | | | [place] | | | [...] + | [facility] | [address] | [place] [address] | | | [place] | | | | + + + [...] LABORATORY | [address] | [place] [address] | | | [place] [address] | [place] [...] | + + + + + | [facility] | [address] | [place] [address] | | | [place], [place] | [place] [...] LABORATORY | [address] | [place] [address] | | | SERVICES, CORE | PARK [...] | + + + + + | [facility] | [address] | [place] [address] | | | SERVICES, CORE | PARK [...] LABORATORY | [address] | [place] [address] | | | SERVICES, CORE | PARK [...] | + + + + + | [facility] | [address] | [place] [address] | | | SERVICES, CORE | [place] [...] OH LABORATORY | [address] | [place] [address] | | | SERVICES, [facility] | [address] | | | + [...] | | | LABORATORY | | | [place] | | | SERVICES, | | | [...] | + + + + + | [facility] | [address] | [place] [address] | | | SERVICES, CORE | PARK [...] | + + + + + | [facility] | [address] | [place] [address] | | | SERVICES, CORE | [address] | | | + + + + + OG-AS-JAO-HB,POC RT (06/26/2017 8:55 AM PST) + + [...] [facility] | | | | | | [facility] | | | | | | [...] + | [facility] | [address] | [place], [place] | | | [facility] | [address] | [address] | | | TESTS | | | [...] | | | | | modification) on [facility] 06/28/17 at | | | | [...] | | | | ONCE, 1 dose, [facility] 06/26/17 at 0845 | | AM [...]
--- OUTSIDE RECORDS SUMMARY | ~2019-11-25 | XMS | Encounter Summary ---
Demographics + + + | Address | [address] | | | [place] [address] | + + + | Home Phone [...] Providers + +------+ + | Care Director Call Name | Role | Phone | + [...] Figueroa | MD Rashida [address] | | | | | [facility] | [facility] | | | | | Hospital Admitting | [place], [place] | | | | | Desk Located on the | [address] | | | | | 9th floor | [phone] | | | | | [place], [place] | | | | | | [address] | | | +--------+---------+ + + + [...] differen t from the original. [facility] Discharge Summary Discharging Provider: VIRGIL GRIMM [...] and intubated prior to tra nsfer to [facility]. Workup was notable for RUQ U/S [...] Your Medications These medications were sent to [id number] [place] [address] [place] [address] Hours: 9AM-7PM MON - FRI / 9AM-6PM [...] Thank you for entrusting your care to [facility] Internal Medicine. If you have any problems or concerns before you are able to follow up with your Primary Care Provider, please call and ask the production machine computer operator to page the attending physician, Vic Petty MD, wh o was caring for you at discharge. If that physician is not available, ask the production machine computer operator to page the physician cash applications analyst for the Medical Teaching Service. Call us right away if any of the following occur: Recurrent abdominal pain Shaking chills or night sweats Other Discharge Orders and Instructions You will be called by the [facility] GI service within the next week to schedule a repeat appoint ment for ERCP and possible stent removal. Home Health Referral after Hospitalization Comments: I certify that this patient is under my care and that I, or Nurse Practitioner or Physician Broadcast Technician working with me, had a face to face encounter with this patient on 06/30/2017 On behalf of Attending Physician: Vic Petty MD I am ordering and certify that the following services are medically necessary home health s [facility] Home Health Physical Therapy Evaluate and Treat I certify that the patient is homebound based on the following clinical findings Post-hospi tono weakness, decreased strength and endurance, and tires easily with minimal exertion Follow Up: Schedule the following appointment(s) when you get home DARYL MATHEWS MD . Specialty: Internal Medicine Contact information [facility] [address] [place] [address] [address] [facility] [id number] Discharge Physical Exam: Last 24 hour min/max [...] (HCC) 12) Acute respiratory failure with hypoxia ([facility]) Please refer to the resident discharge summary for additional details. Vic Petty MD, PhD Clinical Hospitalist and Medicine Teaching Services [facility] Pager [phone] I have spent 35 minutes with the [...] might be different from bella landin. PHYSICIAN PEOPLESOFT HCM DEVELOPER STUDENT PROGRESS NOTE FOR EDUCATIONAL PURPOSES ONLY [...] Q2H PRN ipratropium-albuterol 3 mL Q6H PRN kvjeirto-uqimjts-vygwepbl-zinc QID PRN oxyCODONE (immediate release) 2.5-5 mg [...] Code status: FULL SHAHEEN Oconnell-S [facility] Physician Broadcast Technician Program 06/29/17 Kang Zhang MD - [...] due to aspiration requiring intubation, transferred to [facility] MICU. Here found to have klebsiella [...] Hospitalist and Medicine Teaching Services [facility] Pager [phone] I have spent 26 minutes with the [...] interval not displayed. Micro: BLOOD CULTURE WORKUP [[id number]] (Abnormal) KP LAB Collected: 06/26/17 0939 Lab [...] List: Active Hospital Problems 1) *Septic shock ([facility]) 2) Choledocholithiasis 3) Acute cholangitis 4) Klebsiella sepsis ([facility]) 5) Aspiration pneumonitis ([facility]) 6) S/P ERCP 7) COPD (chronic obstructive pulmonary disease) ([facility]) 8) Essential hypertension Resolved Hospital Problems 9) Septic shock ([facility]) 10) Non-ST elevation myocardial infarction (NSTEMI), type 2 ([facility]) 11) Acute respiratory failure with hypoxia ([facility]) Assessment: William Burns is a [...] Primary Surrogate Decision Maker Sharon Rodriguez Daughter [phone] Dimas Xavier MD Internal Medicine, PGY-3 #[id number] Louis Hernandez MD - 06/28/2017 2:26 PM [...] management as outpatient (pt prefers facility near [place]) --> if develops post ERCP complications or [...] Horne - 06/28/2017 7:47 AM PST PHYSICIAN PEOPLESOFT HCM DEVELOPER STUDENT PROGRESS NOTE FOR EDUCATIONAL PURPOSES ONLY [...] Q2H PRN ipratropium-albuterol 3 mL Q6H PRN azntsbuv-xvtdkue-mdryamdm-zinc QID PRN oxyCODONE (immediate release) 2.5-5 mg [...] on klebsiella cultures for sensitivity. Spoke with Dough Braker at [facility] @1330, N o sensitivity results yet from [...] IV/Airways/Catheters: PIV Code status: FULL SHONDA OconnellS [facility] Physician Broadcast Technician Program 06/28/17 Alisha Rai M D [...] 86 87 78 HCO3 22 24 23 ACQBF0OAI 24 25 24 R4YXNCKS 96.4 97.0 96.8 FIO2 0.80 0.25 0.21 [...] in the patient's condition). ALISHA MAYNARD MD [facility]A [address] [place] [address] Camilo Amaya MD - 11/2017 6:00 AM PST [facility] MEDICAL ICU - PROGRESS NOTE Hospital [...] 6.5 mL/Kg (459.6 mL) RR: 22 bpm Dale BW: 70.7 kg FiO2 21 fraction of [...] 87 78 HCO3 -- 22 24 23 YKX9MNH1 -- 108* 348 371 VBGPH 7.27* -- [...] Primary Surrogate Decision Maker Sharon Rodriguez Daughter [phone] This patient was staffed with Dr. Maynard, [...] duct clearance Lyla Maldonado MD Gastroenterology Pager [phone] - Virginia Cerna MD - 06/26/2017 4:38 PM PSTFormatting of this note might be different from the origi nal. PRE PROCEDURE NOTE: MR# [id number] Subjective: William Burns is a 82 y.o. [...] 4 hours. Concern for choledocholithiasis. Transferred t [facility] this morning. Has history of COPD [...] results for input(s): PH, PCO2, PO2, HCO3, TMXRK3PIQ, X1MQNULI, A2PJWEKTL, FIO2 in the l ast 72 hours. [...] in the patient's condition). ALISHA MAYNARD MD [facility] [address]A [address] [place] [address] documented in this enco unter Plan of [...] | + +--------+ + + + | PF-SH-VMM-HB,POC RT | Urgent | 06/26/2017 | | [...] + + + | ECG | Short FL interval | | [facility] | | [...] OF | [address] | [place], [place] | | | CARDIOLOGY | [address] | [address] | | + + + + + [...] | + + + + + | [facility] | [address] | [place] [address] | | | SERVICES, CORE | RICHARD [...] | + + + + + | [facility] | [address] | [place] [address] | | | SERVICES, CORE | [address]ARK [...] | | | LABORATORY | | | GRENADIAN | | | SERVICES, | | | [...] | + + + + + | [facility] | [address] | [place] [address] | | | SERVICES, CORE | RICHARD [...] LABORATORY | [address] | [place] [address] | | | SERVICES, CORE | PARK [...] Note | + + | Service Account, [email or web address] In Interface - 06/28/2017 5:02 PM PST [...] MARQUAM | [address] | [place], [place] | | | DILAN TURNER OF CARE | [facility] | [address] | | | TESTS | | | [...] FERRIS | [address] | [place] [address] | | | SERVICES, CORE | PARK [...] LABORATORY | [address] | [place] [address] | | | SERVICES, CORE | RICHARD [...] | | | LABORATORY | | | GRENADIAN | | | SERVICES, | | | [...] LABORATORY | [address] | [place] [address] | | | SERVICES, CORE | PARK [...] LABORATORY | [address] | [place] [address] | | | SERVICES, CORE | RICHARD [...] BETTINA TOBAR | [address] | [place], [place] | | | DILAN TURNER OF CARE | [address] | [address] | | | TESTS | | | [...] | + + | Service Account, [email or web address] In Interface - 06/28/2017 10:17 AM PST [...] | Performing | Address | City/State[facility] | Phone Number | | Organization | [...] TOBAR | [address] | [place], [place] | | | DILAN TURNER OF CARE | [address] | [address] | | | TESTS | | | [...] AMADOU | [address] | [place], [place] | | | DILAN TURNER OF [place] | [address] | [address] | | | TESTS | | | [...] | | | LABORATORY | | | GRENADIAN | | | SERVICES, | | | [...] | + + + + + | [facility] | [address] | [place] [address] | | | SERVICES, CORE | RICHARD [...] | + + + + + | [facility] | [address] | [place] [address] | | | SERVICES, CORE | RICHARD [...] | + + + + + | [facility] | [address] | [place] [address] | | | SERVICES, CORE | PARK [...] LABORATORY | [address] | [place] [address] | | | SARA, YOKASTA | PARK [...] | [facility] | [address] | [place] [address] | | | SERVICES, CORE | RICHARD [...] (H) | 70 - 99 mg/dL | [facility] - | | | GLUCOSE, | [...] + + + | BETTINA TOBAR | [address] | [place], [place] | | | [facility] | [address] | [address] | | | TESTS | | | [...] LABORATORY | [address] | [place] [address] | | | SERVICES, CORE | PARK [...] [facility] | | | GRAVITY | [place] | | LABORATORY | | | | [...] | [facility] | [address] | [place] [address] | | | YOKASTA RUIZ | [address] | | | + + + + + ERCP (06/27/2017 6:38 AM PST) + + | Specimen | + + | | + + + + + | Narrative | Performed At | + + + | MRN: | [facility] | | [id number] Date: 06/27/2017Patient Name: William Nair #: | ENDOSCOPY | | [id number] of : 5CSN: [id number] Type: | | | InpatientRoom: SORProcedure: ERCPIndications: | | | For therapy of ascending cholangitis; 82 yo M with | | | sepsis, elevated LFTs and US showing mary dil and 1.3 cm | | | CBDProviders: BRINTHA | | | Thompson MALDONADO MD (Doctor), JORDY SOLANO, | | | RN (Nurse), ESTELA DAMIAN RN (Fabric Worker)Referring MD: | | | Requesting Provider: Medicines: [...] The | | | Olympus TJF-Q180V Duodenoscope #[id number] was | | | introduced through the [...] with acute | | | cholangitis. The violin tutor film was normal. The esophagus was | [...] Initiated On: | | | 06/27/2017 6:38 [facility] Letter to: DARYL MATHEWS MD | | [...] + | MRN: | [facility] | | [id number] Date: 06/27/2017Patient Name: William Nair #: | ENDOSCOPY | | [id number] of : 1935SN: [id number] Type: | | | InpatientRoom: SORProcedure: ERCPIndications: | | | For therapy of ascending cholangitis; 82 yo M with | | | sepsis, elevated LFTs and US showing mary dil and 1.3 cm | | | CBDProviders: BRINTHA | | | Thompson MALDONADO MD (Doctor), JORDY SOLANO, | | | RN (Nurse), ESTELA DAMIAN RN (Fabric Worker)Referring MD: | | | Requesting Provider: Medicines: [...] The | | | Olympus TJF-Q180V Duodenoscope #[id number] was | | | introduced through the [...] with acute | | | cholangitis. The violin tutor film was normal. The esophagus was | [...] Initiated On: 06/27/2017 | | | 6:38 [facility] Letter to: DARYL MATHEWS MD | | [...] LABORATORY | [address] | [place] [address] | | | SERVICES, CORE | PARK [...] LABORATORY | [address] | [place] [address] | | | SARA, YOKASTA | RICHARD [...] | + + + + + | [facility] | [address] | [place] [address] | | | SERVICES, YOKASTA | RICHARD [...] | | | LABORATORY | | | GRENADIAN | | | SERVICES, | | | [...] | + + + + + | [facility] | [address] | [place] [address] | | | SERVICES, YOKASTA | RICHARD [...] + + | ECG | Borderline prolonged FL | | [facility] | | | [...] OF | [address] | [place], [place] | | | CARDIOLOGY | [address] | [address] | | + + + + + [...] Note | + --------+ | Service Account, RadiSueEasy Res In Interface - 06/28/2017 9:20 AM [...] LABORATORY | [address] | [place] [address] | | | SERVICES, CORE | RICHARD [...] (H) | 70 - 99 mg/dL | [facility] - | | | GLUCOSE, | [...] TOBAR | [address] | [place], [place] | | | DILAN TURNER OF CARE | [address] | [address] | | | TESTS | | | [...] Note | + + | Service Account, [email or web address] In Interface - 06/27/2017 9:07 AM PST [...] - [place] | [address] | [place], [place] | | | DILAN TURNER OF [facility] | [address] | [address] | | | TESTS | | | [...] [facility] OF | [address] | [place], [place] | | | CARDIOLOGY | [address] | [address] | | + + + + + [...] correct patient, procedure, | | | equipment, administrative support assistant and site/side marked as required. | | [...] | | | | | | Pathology ResidentTidioute | | | | | | Louis [...] number | | | | | | [id number]. Bile duct, | | | | | [...] | + + + + + | [facility] | [address] | [place] [address] | | | PATHOLOGY | [address] [...] correct patient, | | | procedure, equipment, administrative support assistant and site/side marked as required. | | [...] modified Seldinger technique (a | | | kuveysfu-urpk-obq-rgomyg-duaq-eado-lzzlzal-beb-tllzesqt) was used for | | | vessel [...] LABORATORY | [address] | [place] [address] | | | YOKASTA RUIZ | [address]ICHARD [...] | + + + + + | [facility] | [address] | [place] [address] | | | SERVICES, CORE | RICHARD [...] | + + + + + | [facility] | [address] | [place] [address] | | | SERVICES, CORE | RICHARD [...] LABORATORY | [address] | [place] [address] | | | SERVICES, YOKASTA | [address] [...] | | | LABORATORY | | | GRENADIAN | | | SERVICES, | | | [...] + | [facility] | [address] | [place] [address] | | | SERVICES, CORE | [address] [...] DEPT OF | [address] | [place], [place] | | | CARDIOLOGY | [address] | [address] | | + + + + + [...] LABORATORY | [address] | [place] [address] | | | SERVICES, CORE | PARK [...] | + + + + + | [facility] | [address] | [place] [address] | | | SERVICES, CORE | RICHARD [...] | + + + + + | [facility] | [address] | [place] [address] | | | SERVICES, CORE | RICHARD [...] | + + + + + | [facility] | [address] | [place] [address] | | | SERVICES, CORE [...] Note | + ----+ | Service Account, [email or web address] In Interface - 06/26/2017 12:57 PM PST [...] Note | + + | Service Account, [email or web address] In Interface - 06/26/2017 12:55 PM PST [...] LABORATORY | [address] | [place] [address] | | | SERVICES, | [address] [...] LABORATORY | [address] | [place] [address] | | | SERVICES, | [address] [...] | + + + + + | [facility] | [address] | [place] [address] | | | SERVICES, | [address] [...] + + + | ECG | Prolonged FL interval | | [facility] | | [...] OF | [address] | [place], [place] | | | CARDIOLOGY | [address] | [address] | | + + + + + [...] | | Growth in Anaerobic bottle | [place] | + + + + + + + + | Performing | Address | City/State/Zipcode | Phone Number | | Organization | | | | + + + + + | [facility] - | [address] | [place] [address] | | | [place] | | | [...] + | [facility] - | [address] | [place] [address] | | | [place] | | | [...] LABORATORY | [address] | [place] [address] | | | YOKASTA RUIZ | [address] [...] | + + + + + | [facility] | [address] | [place] [address] | | | SERVICES, CORE | RICHARD [...] LABORATORY | [address] | [place] [address] | | | SERVICES, CORE | RICHARD [...] + | [facility] | [address] | [place] [address] | | | SERVICES, CORE | [address] [...] LABORATORY | [address] | [place] [address] | | | SERVICES, CORE | PARK [...] | + + + + + | [facility] | [address] | [place] [address] | | | SERVICES, CORE | RICHARD [...] OH LABORATORY | [address] | [place] [address] | | | SERVICES, CORE | PARK [...] | | | LABORATORY | | | GRENADIAN | | | SERVICES, | | | [...] | [facility] | [address] | [place] [address] | | | SERVICES, CORE | PARK [...] | + + + + + | [facility] | [address] | [place] [address] | | | SERVICES, CORE | [address] | | | + + + + + RI-LU-UNT-HB,POC RT (06/26/2017 8:55 AM PST) + + [...] [facility] | [address] | [place], [place] | | | DILAN TURNER OF CARE | [address] | [address] | | | TESTS | | | [...] | | | | | NEEDED, Starting [facility] 06/28/17 at | | | | [...]
--- OUTSIDE RECORDS SUMMARY | ~2019-11-25 | XMS | Encounter Summary ---
Demographics + + + | Address | [address] | | | [place] [address] | + + + | Home Phone [...] Team Providers + +------+ + | Care Flipping Machine Operator Name | Role | Phone [...] [phone] | [phone] | [employer] ([facility]) | | | | FRANK [address] | [place] [address] | | | [birth year] | | [place], [place] | [phone] | | | 2002 | | [address] | | | | | | [phone] | | | +--------+ + + + [...]
--- OUTSIDE RECORDS SUMMARY | ~2019-11-25 | XMS | Encounter Summary ---
Demographics + + + | Address | [address] | | | [place] [address] | + + + | Home Phone [...] Providers + +------+ + | Care Student Admissions Clerk Name | Role | Phone | [...] | | | | | | | [place] ERCP DX | | | | | | | COLLECTION | | | | | | | SPECIMEN | | | | | | | BRUSHING/WAS | | | | | | | [place] | | | | | | | ERCP | | | | | | | BILIARY/PANC | | | | | | | DUCT STENT | | | | | | | EXCHANGE | | | | | | | W/DIL&WIRE | | | | | | | [place] | | | | | | | [...] | | | | | [address] | [address] | | | | | [place], [place] | [place] [address] | | | | | [address] | [phone] | | | | | [phone] | | | +--------+---------+ + + + [...] of ascending cholangitis and sepsis, treated at [facility]. Had ERCP with sphin cterotomy, stone extraction, and stent placement on 06/26/17. He underwent cholecystectomy in [place] and on the IOC there were possible [...] BACK SURGERY 1981 Lower back COLONOSCOPY 09/23/2013 [facility] ENDOSCOPY 08/10/2013 [facility] HIP FRACTURE SURGERY Left 2002 Pinning. [...] [facility] Removal of lesion Right 2009 Right [...] Class 2 (upper half of tonsil fossa) [place] [employer] of Anesthesia Grade:ASA 2 - A [...] Electronically Signed by: Jamey Penny MD 08/14/2017 [facility] VERIFICATION OF CONSENT (PARQ) The patient was counseled regarding the procedure, its indications, risks, potential compli cations and alternatives. Any questions were answered. Consent was obtained. Jamey Penny MD, 08/14/2017 12:59 [facility] Portions of this chart may have been created with [employer] voice recognition software. Occasi onal wrong-word or [...] INSTRUCTIONS Patient: William Burns : 1935 Acct: [id number] Exam Date: Monday, August 14, 2017 Doctor: [...] 1 day. Avoiding fatty foods such as [place], hamburgers, k[place], ham and pork products, will [...] + | Performing | Address | City/State/[facility] | Phone Number | | [...] 08/14/2017 | [place] | | 12:57 PMMRN: [id number] #: [id number] of : | | | 5Admit Type: AmbulatoryAge: 82Room: [facility] 02Gender: MaleNote | | | Status: FinalizedAttending MD: J[facility] PENNY [facility] | | | ERCPIndications: Bile duct stone(s), Biliary stent | | | removalProviders: JAMEY PENNY MD, Kiah Orozco, | | | RN, Klaus Loco CMA, Vani Wisdom, | | | Micro Photographer, Yinka Dominguez MD | | | (Anesthesia [...] the procedure well.Findings: A | | | sandwich and drink cart operator film of the abdomen was obtained. [...] | | was it seen on the sandwich and drink cart operator image. - Several filling defects | [...] PMScope Out: | | | 1:58:46 PM [facility], [facility] [address] [facility], | | | [place] [address] | | | - KUB today to [...] |Scope Out: 1:58:46 PM | | | [facility], [facility], [place], [place] | | | [address] | | + + -+ + +---------+ [...] | | | Anticoagulation Range: | | [facility] | | | | 2.0 - 3.0High [...] + | [address] ST. | [address] | [place] | [phone] | | [facility] | | [address] | | | - LABORATORY | | [...] 108 | 70 - 109 mg/dL | [facility] | | | | [facility] | | | | | [facility] | | | | | | [facility] - | | | | | | LABORATORY | | + + + + + + | BUN | 13 | 7 - 18 mg/dL | [facility] | | | | | [facility] | | | | | | [facility]ICAL | | | | | | CENTER - | | | | | | LABORATORY | | + + + + + + | Creatinine | 0.85 | 0.60 - 1.30 | [facility] | | | | | mg/dL | [facility] | | | | | | MEDICAL | | | | | | CENTER - | | | | | | LABORATORY | | + + + + + + | eGFR if not | >60Comment: GLOMERULAR | >=60 | TAB | | | | FILTRATION | mL/min/1.73m2 | [facility] | | | [place] | RATE,ESTIMATED | | MEDICAL | | | | mL/min/1.83s0Rwkj than | | CENTER - | | [...] [address] | [place] | [phone] | | [facility] | | [address] | | | - LABORATORY | | [...] + | [address] | [address] | [place] | [phone] | | [facility] | | [address] | | | - LABORATORY | | [...]
--- OUTSIDE RECORDS SUMMARY | ~2019-11-25 | XMS | Encounter Summary ---
Demographics + + + | Address | [address] | | | [place] [address] | + + + | Home Phone [...] Team Providers + +------+ + | Care Geophysical Computer Name | Role | Phone | + [...] + + | 06/18/ | Telephone | [facility] Primary Care | Nava | Constipated | | 2019 | | at [facility] | Dimas Pelayo MD | | | | | [address] | [address] | | | | | Loop Physician's | [address] [facility], | | | | | [place], 3rd floor | [place] [address] | | | | | [place], [place] | [phone] | | | | | [address] | | | | | | [phone] | | | +--------+ + + + [...]
--- OUTSIDE RECORDS SUMMARY | ~2019-11-25 | XMS | Encounter Summary ---
Demographics + + + | Address | [address] | | | [place] [address] | + + + | Home Phone [...] Team Providers + +------+ + | Care Solderer Barrel Ribs Name | Role | Phone | + [...] | | | | | | [facility] | | | | | | Hospital Admitting | | | | | | Desk Located on the | | | | | | 9th floor | | | | | | [place], [place] | | | | | | [address] | | | +--------+ + + + [...]
--- OUTSIDE RECORDS SUMMARY | ~2019-11-25 | XMS | Encounter Summary ---
Demographics + + + | Address | [address] | | | [place] [address] | + + + | Home Phone [...] Team Providers + +------+ + | Care Hospital Chaplain Name | Role | Phone | + [...] | | | | [facility] | [facility] | | | | | [facility] Admitting | [place], [place] | | | | | Desk Located on the | [address] | | | | | 9th floor | [phone] | | | | | [place], [place] | | | | | | [address] | | | +--------+ + + + [...] + + | Urethr | 06/26/17; 09; [facility]; | 06/26/17 09 by | 06/27/17 1100 by | | al | Veena-nita Arriaga; 06/27/17; 1100 | Leonor Peck RN | Lani Chicas RN | | Cathet | | | | | er | | | | +--------+ + + + | [facility] | 06/26/17; 0900; Dr. Garcia; [facility]; | 06/26/17 0900 by | 06/27/17 [...]
--- OUTSIDE RECORDS SUMMARY | ~2019-11-25 | XMS | Encounter Summary ---
Demographics + + + | Address | [address] | | | [place] [address] | + + + | Home Phone [...] Team Providers + +------+ + | Care Engineer Third Assistant Name | Role | Phone | [...] | | | [place], | [place] [address] | | | | | [place] [address] | [phone] | | | | | [phone] | | | +--------+ + + + [...]
--- OUTSIDE RECORDS SUMMARY | ~2019-11-25 | XMS | Clinical Summary ---
Demographics + + + | Address | [address] | | | [place] [address] | + + + | Home Phone | | + + + | Preferred Language | Unknown | + + + | Marital Status | | + + + | Anglican Affiliation | Unknown | + + + | Race | Unknown | + + + | Ethnic Group | Unknown | + + + Author + + + | Author | [facility] | | | and [place] | + + + | Organization | [facility] | | | and [...] Team Providers + +------+ + | Care Tree Cutter Name | Role | Phone | [...] Lindsay | | Endobiliary stent placed at [facility] | + + + + + | [...] | [facility] | [facility] | [id number] | 05/21/19 | | | Medica | | | HEALTH | | 19-Pre | | | re | | | MDCR | | sent | | | | + +--------+ +--------+-------+---------+--------+ | [facility] | [facility] | [id number] | | | | Medica | | [...] Person | Self | [birth year] | [address] | | | al/Fam | | 1935 | [phone] | [place], [place] | | | michelle | | | 4 (Home) | [address] | + +--------+ +--------+ + + | William Burns | Person | Self | [birth year] | | [address] | | | al/Fam | | 1935 | [phone] | [place], [place] | | | michelle | | | 4 (Home) | [address] | + +--------+ +--------+ + + Advance Directives + + + + + | Type | Date Recorded | Patient | Explanation | | | | Skidder | | + + + + + | Power of | | | | | Gymnastic Coach | | | | + + + + + | Advance | 08/09/2017 11:17 | | | | Directive | AM | | | + + + + +
--- OUTSIDE RECORDS SUMMARY | ~2019-11-25 | XMS | Encounter Summary ---
Demographics + + + | Address | [address] | | | [place] [address] | + + + | Home Phone [...] Providers + +------+ + | Care Wire Coiler Name | Role | Phone | + [...] | [address] | MD Jun 1836 | | | | | Herb Mailcode: [id number] | [place], | | | | | [place], [place] | [place] [address] | | | | | [address] | [phone] | | | | | [phone] | | | +--------+ + + + [...]
--- OUTSIDE RECORDS SUMMARY | ~2019-11-25 | XMS | Encounter Summary ---
Demographics + + + | Address | [address] | | | [place] [address] | + + + | Home Phone [...] Team Providers + +------+ + | Care Garden Machinery Mechanic Name | Role | Phone | [...] | | 2018 | | Arrhythmia at [facility] | MD Herson [address] [facility] | | | | | [address] | [address] | | | | | Mailcode: CH7A | [place], [place] | | | | | [facility] | [address] | | | | | and Healing, | [phone] | | | | | [place] [address] [facility] | | | | | | Floor [place], [place] | | | | | | [address] | | | | | | [phone] | | | +--------+ + + + [...]
--- OUTSIDE RECORDS SUMMARY | ~2019-11-25 | XMS | Encounter Summary ---
Demographics + + + | Address | [address] | | | [place] [address] | + + + | Home Phone | | + + + | Preferred Language | Unknown | + + + | Marital Status | | + + + | Restoration Affiliation [...] Team Providers + +------+ + | Care Oxyacetylene Burner Name | Role | Phone | + [...] | | | | | [place] Este[place], | [place], [place] | | | | | [place] [address] | [address] | | | | | [phone] | [phone] | | | | | | | [...] Recinos MD - 06/11/2018 10:00 AM PST [facility] Intake Exam - [facility] Alan Thomas "Carlos" James Burns is a 83 y.o. male with a PMH significant for prior L THR, SVT, HT N, COPD (non-O2 dependent), prior UGIB. He is admitted to [facility] for skilled therapy following a hospitalization at [facility] from 05/31 to 06/06 for Left Acetabular Fracture in the setting of a prior THR. Hospital course was significant for: Carlos was transferred to [facility] from [facility] on 05/31 for [...] independent at baseline. He was brought to [facility] given his medical comorbidities and peyton rn [...] to visit (already scheduled for 07/02/18 at [facility] Ortho ). His course was c/b bloating [...] in stool, unlikely that EGD would change director. He was also seen by the Geriatrics [...] Diagnosis COPD (chronic obstructive pulmonary disease) ([facility]) Essential hypertension Physical deconditioning Atrial fibrillation ([facility]) Diverticulosis of colon GERD (gastroesophageal reflux disease) Raynaud's syndrome Right fascicular block Closed fracture of anterior column of left acetabulum with routine healing HTN (hypertension) Past Medical History: Diagnosis Date Acute cholangitis 06/27/2017 Aspiration pneumonitis ([facility]) 06/28/2017 Atrial fibrillation ([facility]) 08/13/2017 Choledocholithiasis 06/26/2017 Closed fracture of anterior column of left acetabulum with routine healing 06/11/2018 COPD (chronic obstructive pulmonary disease) ([facility]) Diverticulosis of colon 01/01/2007 Overview: Note: Unchanged GERD (gastroesophageal reflux disease) 08/13/2017 GI bleed 2013 esophageal ulcer s/p clipping 2013 HTN (hypertension) Klebsiella sepsis ([facility]) 06/27/2017 Normocytic anemia Hgb around 11 in 2013 Prediabetes Raynaud's syndrome 05/23/2017 Right fascicular block 05/23/2017 S/P ERCP 06/28/2017 SVT (supraventricular tachycardia) ([facility]) unclear hx. "Possible SVT" per chart in 2012. Patient's Medications New Prescriptions No medications on file Previous Medications ACETAMINOPHEN 500 MG ORAL TABLET Take 2 tablets by mouth three times daily. BISACODYL EC 5 MG ORAL TABLET,DELAYED RELEASE (DR/EC) Take 2 tablets by mouth once da michlele. CALCIUM CARBONATE CHEWABLE 200 MG ELEMENTAL (500 [...] (has used x 2 since arriving at [facility]) - Continue Mucinex BID per home [...] PGY1 GENERAL INTERNAL MEDICINE AT OFFSITE Pager: [phone] Associated attestation - Crystal Evans MD - [...] the following additions/clarifications/exceptions: none Crystal Evans MD [facility] Division of Internal Medicine [...]
--- OUTSIDE RECORDS SUMMARY | ~2019-11-25 | XMS | Encounter Summary ---
Demographics + + + | Address | [address] | | | [place] [address] | + + + | Home Phone [...] Team Providers + +------+ + | Care It Risk Advisor Name | Role | Phone | [...] floor | | | | | | [place], [place] | | | | | | [address] | | | +--------+ + + + [...]
--- OUTSIDE RECORDS SUMMARY | ~2019-11-25 | XMS | Encounter Summary ---
Demographics + + + | Address | [address] | | | [place] [address] | + + + | Home Phone | | + + + | Preferred Language | Unknown | + + + | Marital Status | | + + + | Yazidi Affiliation | Unknown | + + + | Race | Unknown | + + + | Ethnic Group | Unknown | + + + Author + + + | Author | [facility] | | | and [place] | + + + | Organization | [facility] | | | and [...] Team Providers + +------+ + | Care Athletic Instructor Name | Role | Phone | + [...] + + | 07/26/ | Telephone | [facility] | Jamey Hdz | Care Coordination | | 2018 | | GASTROENTEROLOGY | MD Sarkis [address] | | | | | [address] TREASURE | [address] [facility] | | | | | [address] [place], [place] | [place] [address] | | | | | [address] | [phone] | | | | | [phone] | | | +--------+ + + + [...] Star cole, the patient's general surgeon in [place]. Dr. Neumann is requesting an ERCP for [...]
--- OUTSIDE RECORDS SUMMARY | ~2019-11-25 | XMS | Encounter Summary ---
Demographics + + + | Address | [address] | | | [place] [address] | + + + | Home Phone [...] Team Providers + +------+ + | Care Coffee Maker Name | Role | Phone | [...] | [address] | [place], | | | | | [place], | [place] [address] | | | | | [place] [address] | [phone] | | | | | [phone] | | | +--------+ + + + [...]
--- OUTSIDE RECORDS SUMMARY | ~2019-11-25 | XMS | Encounter Summary ---
Demographics + + + | Address | [address] | | | [place] [address] | + + + | Home Phone [...] Team Providers + +------+ + | Care Electronic Lab Technician Name | Role | Phone | [...] | | 2019 | | Faculty at [facility] | MD Meron [address] | | | | | for Health and | [address] | | | | | Healing [address] | [place], [place] | | | | | Ave Mailcode: | [address] | | | | | [facility] | [phone] | | | | | Health and Healing, | | | | | | [facility] | | | | | | Floor [place], [place] | | | | | | [address] | | | | | | [phone] | | | +--------+ + + + [...]
--- OUTSIDE RECORDS SUMMARY | ~2019-11-25 | XMS | Encounter Summary ---
Demographics + + + | Address | [address] | | | [place] [address] | + + + | Home Phone [...] Team Providers + +------+ + | Care Tub Attendant Name | Role | Phone | + [...] Transcriptions | + + | Interface, Business Lawyer In - 11/26/2005 3:10 AM PDT | | [place] [address] | | [place], [place] [address] | | [facility] Center[facility] RECORDMed Rec No.: | | [id number] Date: 07/14/2002Name: Carlos Burns SURGEON: | | Fozia Crawford M.D., Ph.D.SUPPLY CHAIN MANAGER: Med | | Jerrell GuPREOPERATIVE DIAGNOSIS:Rhegmatogenous [...] | | Jun Crawford M.D., Ph.D.JS:x54D: 07/14/2002T: 07/16/[id number] | |attention was directed towards the right [...] | |JS:x54 | | | | | |[id number] | + + documented in this encounter Visit Diagnoses Not on filedocumented in this encounter"
--- OUTSIDE RECORDS SUMMARY | ~2019-11-25 | XMS | Encounter Summary ---
Demographics + + + | Address | [address] | | | [place] [address] | + + + | Home Phone [...] Team Providers + +------+ + | Care Dredgemaster Name | Role | Phone | + [...] | [address] | [address] [facility], | | | | | [address] | [place] [address] | | | | | [address], | [phone] | | | | | 4th floor [place], | | | | | | [place] [address] | | | | | | [phone] | | | +--------+ + + + [...] + | MRN: | [facility] | | [id number] Date: 06/27/2017Patient Name: William Nair #: | ENDOSCOPY | | [id number] of : 1935SN: [id number] Type: | | | InpatientRoom: SORProcedure: ERCPIndications: | | | For therapy of ascending cholangitis; 82 yo M with | | | sepsis, elevated LFTs and US showing mary dil and 1.3 cm | | | CBDProviders: BRVALENTINA | | | Thompson MALDONADO MD (Doctor), JORDY SOLANO, | | | RN (Nurse), ESTELA DAMIAN, SARI (Warp Tier)Referring MD: | | | Requesting Provider: Medicines: [...] The | | | Olympus [id number] Duodenoscope #[id number] was | | | introduced through the [...] with acute | | | cholangitis. The gripper machine operator film was normal. The esophagus [...] Initiated On: | | | 06/27/2017 6:38 [facility] Letter to: LANA MATHEWS MD | [...]
--- OUTSIDE RECORDS SUMMARY | ~2019-11-25 | XMS | Encounter Summary ---
Demographics + + + | Address | [address] | | | [place] [address] | + + + | Home Phone [...] Team Providers + +------+ + | Care Svp Digital Sales Food & Cooking Name | Role | Phone | + +------+ + | Herlinda Maldonado | PCP | | + +------+ + Encounter Details +--------+ + + + + | Date | Type | Department | Care Team | Description | +--------+ + + + + | 06/16/ | Telephone | [facility] Primary Care | Sid, | | | 2018 | | at [facility] | Alexa Anderson MD | | | | | [address] | [address] | | | | | [address] Physician's | [place], | | | | | [place], 3rd floor | [place] [address] | | | | | [place], [place] | [phone] | | | | | [address] | | | | | | [phone] | | | +--------+ + + + [...]
--- OUTSIDE RECORDS SUMMARY | ~2019-11-25 | XMS | Encounter Summary ---
Demographics + + + | Address | [address] | | | [place] [address] | + + + | Home Phone [...] Team Providers + +------+ + | Care Mat Inspector Name | Role | Phone | + +------+ + | Herlinda Maldonado | PCP | | + +------+ + Encounter Details +--------+ + + + + | Date | Type | Department | Care Team | Description | +--------+ + + + + | 06/16/ | Telephone | [facility] Primary Care | Sid, | | | 2018 | | at [facility] | Alexa Anderson MD | | | | | [address] | [address] | | | | | Loop Physician's | [place], | | | | | [place], [address]rd floor | [place] [address] | | | | | [place], [place] | [phone] | | | | | [address] | | | | | | [phone] | | | +--------+ + + + [...]
--- OUTSIDE RECORDS SUMMARY | ~2019-11-25 | XMS | Encounter Summary ---
Demographics + + + | Address | [address] | | | [place] [address] | + + + | Home Phone [...] Providers + +------+ + | Care Drug Counselor Name | Role | Phone | [...] + + | 06/18/ | Telephone | [facility] Primary Care | Nava | Constipated | | 2019 | | at [facility] | Dimas Pelayo MD | | | | | [address] | [address] | | | | | Loop Physician's | [facility], | | | | | [place], 3rd floor | [place] [address] | | | | | [place], [place] | [phone] | | | | | [address] | | | | | | [phone] | | | +--------+ + + + [...]
--- OUTSIDE RECORDS SUMMARY | ~2019-11-25 | XMS | Encounter Summary ---
Demographics + + + | Address | [address] | | | [place] [address] | + + + | Home Phone | | + + + | Preferred Language | Unknown | + + + | Marital Status | | + + + | Mandaen Affiliation | Unknown | + + + | Race | Unknown | + + + | Ethnic Group | Unknown | + + + Author + + + | Author | [facility] | | | and [place] | + + + | Organization | [facility] | | | [...] Providers + +------+ + | Care Oil Heater Installer Name | Role | Phone | [...] [address] | | | | | [place], | [address] [place] | | | | | [place] [address] | [place] [address] | | | | | [phone] | [phone] | | | | | | | [...]
--- OUTSIDE RECORDS SUMMARY | ~2019-11-25 | XMS | Encounter Summary ---
Demographics + + + | Address | [address] | | | [place] [address] | + + + | Home Phone [...] Team Providers + +------+ + | Care Economic Adviser Name | Role | Phone | + [...] | | | | Herb [facility] | | | | | | Hospital Admitting | | | | | | Desk Located on the | | | | | | 9th floor | | | | | | [place], [place] | | | | | | [address] | | | +--------+ + + + [...]
--- OUTSIDE RECORDS SUMMARY | ~2019-11-25 | XMS | Encounter Summary ---
Demographics + + + | Address | [address] | | | [place] [address] | + + + | Home Phone [...] Team Providers + +------+ + | Care Agronomy Instructor Name | Role | Phone | [...] | | [address] | [place], [place] | | | | | [address], | [address] | | | | | 4th floor [place], | [phone] | | | | | [place] [address] | | | | | | [phone] | | | +--------+ + + + [...]
--- OUTSIDE RECORDS SUMMARY | ~2019-11-25 | XMS | Encounter Summary ---
Demographics + + + | Address | [address] | | | [place] [address] | + + + | Home Phone | | + + + | Preferred Language | Unknown | + + + | Marital Status | | + + + | Islam Affiliation | Unknown | + + + [...] | + + +---------+ + | Hermelinda Jaevd | ECON | Unknown | | + + +---------+ + Care Team Providers + +------+ + | Care Covering Machine Operator Helper Name | Role | Phone | + +------+ + PCP | Unavailable | + +------+ + Encounter Details +--------+ + + + + | Date | Type | Department | Care Team | Description | +--------+ + + + + | 08/10/ | Hospital | [facility] | Sudeep Sarabia, | GI bleed; Lower | | 2013 - | Encounter | MEDICAL CENTER | MD Carlos [address] | abdominal pain; HTN | | | | CLINICAL DECISION | [place] [id number] | (hypertension) | | 08/13/ | | UNIT Carlos [facility] | [phone] | | | 2013 | | [place], [place] | | | | | | [address] | | | | | | [phone] | | | +--------+ + + + [...] 1735 Date of Service: 08/13/1343 Status: Signed Lock Installer: Iban Medina MD (Physician) Related Notes: Original Note by Iban Medina MD (Physician) filed at 08/13/13 1524 HOSPITALIST DISCHARGE SUMMARY Patient ID: William Hurst [id number] 78 y.o. 1935 Admit date: 08/10/2013 Discharge [...] loss. The patien t was brought to [facility] and was transferred to [facility] for a GI evaluation. Dr. [...] the patient was [facility]. Serial hemoglobin and hematocrit were [...] prescriptions that you need to picker and sorter load and unload. You may get these medications from any pharmacy. furosemide 40 MG tablet omeprazole 20 MG capsule Activity: activity as tolerated Diet: cardiac Follow up: Daryl Mathews MD [address] [place] [address] [place] [address] Schedule an appointment as soon as possible for a visit Perry Ball MD [address] [facility] [address] In 2 weeks Discharge took approximately 40 [...] Date of Service: 08/13/13 1220 Status: Signed Lock Installer: Danielle Rubin RN (Registered Nurse) Pt ready for DC. All DC instructions given and understood, at bedside, pt enjoying roxane ch informed to call when through to be wheeled out. Danielle Rubin RN onver audrey Transaction, Provider Unknown - 08/12/2013 3:02 PM PDT Case Management by Diane Hightower RN at 08/12/13 1508 Author: Diane Hightower RN Service: (none) Author Type: Registered Nurse Filed: 08/12/13 1508 Date of Service: 08/12/13 1502 Status: Addendum Lock Installer: Diane Hightower RN (Registered Nurse) Related Notes: [...] Physician Filed: 08/12/13 1313 Date of Service: 08/12/1337 Status: Signed Lock Installer: Iban Medina MD (Physician) [facility] Service: Hospitalist Progress Note Hospital [...] hours No results found for this basename: PHART:3,PO2ART:3,EXE7IUI:3,O7AXSKTB:3,BEART:[address] 168 hours Lab [...] 08/12/131929 Date of Service: 08/11/131913 Status: Signed Lock Installer: Perry Ball MD (Physician) Related Notes: Original Note by Perry Ball MD (Physician) filed at 08/11/13 1 926 [facility] Service: Gastroenterology Progress Note Hospital [...] 08/11/131929 Date of Service: 08/11/131903 Status: Addendum Lock Installer: Alexys Nolan MD (Physician) Related Notes: Original Note by Alexys Nolan MD (Physician) filed at 08/11/131909 [facility] Service: Hospitalist Progress Note Hospital [...] Date of Service: 08/11/13 0657 Status: Signed Lock Installer: Milton Khoury RN (Registered Nurse) Pt has [...] 08/10/132216 Date of Service: 08/10/132216 Status: Signed Lock Installer: Lashawn Soria RPH (Pharmacist) Clinical Pharmacy Note: [...] Author: MICHAEL Mc Service: (none) Author Type: Machine Erector Filed: 08/10/132133 Date of Service: 08/10/132130 Status: Signed Lock Installer: MICHAEL Mc (Machine Erector) 08/10/132129 Discharge Planning Evaluation Admitting Diagnosis GIB Readmission No Living Arrangements Spouse/significant other Support Systems Spouse/significant other;Children Type of Residence Private residence House type House-1 story Bathrooms on 1st Floor 1-Full Independent with ADL's Yes Independent with Mobility Yes Home Care Services No Caregiver after Discharge Yes Caregiver Name Camryn Hurst Relationship to Patient Spouse Phone number [phone] Mental Status Oriented Power of Adoption Worker Yes Power of Adoption Worker Name Camryn Hurst Power of Adoption Worker Resources Financial concerns No Transportation issues No Patient/Family concerns No Prescription Plan Yes Met with pt to discuss discharge planning. Pt is a 78 y.o., male who lives with his in a private residence in [place]. Pt is independent and very active. Pt reports he mows h is own grass and cares for his chickens. Pt is independent with ADLs, uses no DME, has never used HH. Pt is not on O2/cpap/bipap. He is not engaged in o/p medical services. Pt reports his will come to [facility] in the morning. Pt has no family in [facility]. His Dtr Radha Renteria lives near him in [place]. Pt denies d/c needs at this time. Patient's PCP is: DARYL MATHEWS Patient's insurance: [facility] care Coverage concerns: n/a Medication coverage/concerns: [...] Service: (none) Author Type: Physician Filed: 08/10/13 7651 Date of Service: 08/10/131928 Status: Signed Lock Installer: Sudeep Sarabia MD (Physician) Related Notes: Original Note by Sudeep Sarabia MD (Physician) filed at 08/10/132024 [facility] Service: Hospitalist Admission History & [...] initially the hospital that was admitting him [facility] the patient might have had lower gastrointestinal [...] with p.r.n. doses of Prilosec and perhaps suen-mqw-pnwertv Tums. He sta denise that his indigestion occurs when he eats food such as tomato sauce containing foods or s picy sauce. These symptoms have been ongoing for the past 10 years or so. There was no escal ation of these symptoms in the recent past. The patient was initially brought by emergency room to [facility]. Due to lack of beds, as reported by the patient, he was transferred to [facility] for further evaluation. His CMP from [facility] in [place] showed sodium 138, potass ium 4.7, chloride [...] was 17.8 (normal 4.5 to 9.8) at [facility]. Troponin I was less than 0.1, which was negative. A 12-lead EKG at [facility] showed normal sinus rhythm with a rate of 66 beats per minute, incomplete right bundle bran ch block, no acute ST or T-wave changes to suggest ischemic process. The patient was evaluated at [facility] Emergency Room by . T he patient had no further episodes of hematemesis or lower gastrointestinal bleeding. His r epeat H and H were 11.8 and 35.6 respectively. CMP was fairly unchanged from the one obtaine d at [facility]. the patient is being admitted to our [...] male who was transferred via EMS from [facility] in [place] with the followin. Gastrointestinal bleed. The patient [...] 193 Date of Service: 08/10/131921 Status: Signed Lock Installer: Perry Ball MD (Physician) Related Notes: Original Note by Perry Ball MD (Physician) filed at 08/10/13 1 031 [facility] Service: Gastroenterology Initial Consult Note [...] his usual state of health until this [facility]. The patient had breakfast without having any problem. He later felt bad, which was nonsp ecific. At about 10:00 a.m., the patient had an urge to vomit. He went to the rest room. He felt dizzy, sweating, and then he vomited red blood clots once. After that, the patient was brought to [facility]. He had blood test done. The blood test done and CT scan of the abdomen and pelvis were done. He was then sent to [facility] for fur ther evaluation. At [facility], the patient had pain across the [...] 08/10/131919 Date of Service: 08/10/131919 Status: Signed Lock Installer: Francisco Hall RN (Registered Nurse) GI doctor at bedside for eval. Francisco Hall RN 08/10/131919 onver audrey Transaction, Provider Unknown - 08/10/2013 6:19 PM PDT ED Notes by Francisco Hall RN at 08/10/131818 Author: Francisco Hall RN Service: (none) Author Type: Registered Nurse Filed: 08/10/131818 Date of Service: 08/10/131818 Status: Signed Lock Installer: Francisco Hall RN (Registered Nurse) Patient given [...] 08/10/131757 Date of Service: 08/10/131757 Status: Signed Lock Installer: Francisco Hall RN (Registered Nurse) Dr. White at bedside. Francisco Hall RN 08/10/131757 Sudeep Edmond MD - 08/10/2013 5:55 PM PDT ED Provider Notes by Sudeep White MD at 08/10/131754 Author: Sudeep White MD Service: (none) Author Type: Physician Filed: 08/13/13 1410 Date of Service: 08/10/131754 Status: Signed Lock Installer: Sudeep White MD (Physician) Procedure Orders: 1. POCT occult blood stool [[id number]] ordered by Christos Faith at 08/10/13 1802 [facility] Department of Emergency Medicine Provider Row Name 08/10/13 1614 08/10/13 1543 Pre-arrival Provider Pre-arrival Provider Another ED [facility] Pertinent History and Concerns pt [...] male who was transferred to ED from [facility] with a CC of hematemesis, for [...] Procedure: ESOPHAGOGASTRODUODENOSCOPY; Surgeon: Perry Ball MD; Location: [facility] ENDOSCOPY; Service: Gastroenterology; Laterality: N/A; [...] Department Course 5:57 PM Pt transferred from [facility] with upper GI bleed and hematemesis. I will order for repeat blood count, check liver enzymes, INR, aPTT, GI consult, and arrange for pt admi ssion. 6:02 PM Hemoccult performed. (See procedure for details). 6:08 PM Reviewed work-up and records from [facility]. They diagnosed the pt with having an Upper GI bleed, which is not supported by the hx or exam. CT of abd was normal. Lab work from [facility] was not significant. Mildly anemic. I [...] Value Ref Range Date/Time Complete Metabolic Panel [[id number]] (Abnormal) Collected:08/10/131814 Order Status:Completed Updated:08/10/131853 Specimen Information:Blood [...] 65 U/L EGFR >60 >60 mL/min/1.73m2 Lipase [[id number]] (Abnormal) Collected:08/10/131814 Order Status:Completed Updated:08/10/131853 Specimen Information:Blood LIPASE 66 (L) 73 - 393 U/L CBC w Auto Diff [[id number]] (Abnormal) Collected:08/10/131814 Order Status:Completed Updated:08/10/131839 Specimen Information:Blood [...] RBC AND PLT MORPHOLOGY APPEAR NORMAL PT [[id number]] Collected:08/10/131814 Order Status:Completed Updated:08/10/131838 Specimen Information:Blood INR 1.1 PTT [[id number]] (Abnormal) Collected:08/10/131814 Order Status:Completed Updated:08/10/131838 Specimen Information:Blood [...] visit [address] [place] [address] Perry Ball MD In 2 weeks [address] [facility] [address] Discharge Medications: New Prescriptions OMEPRAZOLE (PRILOSEC) 20 [...] 08/10/131745 Date of Service: 08/10/131744 Status: Addendum Lock Installer: Francisco Hall RN (Registered Nurse) Related Notes: [...] 08/10/131744 Date of Service: 08/10/131744 Status: Signed Lock Installer: Francisco Hall RN (Registered Nurse) Bed:12
Expected date:
Expected time:
Means of arrival:
Comments:
[facility] onver audrey Transaction, Provider Unknown - 08/10/2013 5:30 PM PDT ED Notes by Rashmi Doe RN at 08/10/131729 Author: Rashmi Doe RN Service: (none) Author Type: Registered Nurse Filed: 08/10/131729 Date of Service: 08/10/131729 Status: Signed Lock Installer: Rashmi Doe RN (Registered Nurse) Stable, no change en route Rashmi Doe RN 08/10/131729 docume nted in this encounter Miscellaneous Notes Op Note - Perry Ball - 08/10/2013 9:56 PM PDT Op Note by Perry Ball MD at 08/10/132155 Author: Perry Ball MD Service: Gastroenterology Author Type: Physician Filed: 08/10/132204 Date of Service: 08/10/132155 Status: Addendum Lock Installer: Perry Ball MD (Physician) Related Notes: Original Note by Perry Ball MD (Physician) filed at 08/10/13 203 [facility] Service: Gastroenterology ENDOSCOPY SUITE PROCEDURE [...] | Sudeep White MD 08/13/2013 2:10 PM [facility] | EXTERNAL LAB | | [facility] Department of Emergency Medicine Provider Row | [...] male who was transferred to ED from [facility] with a | | | CC [...] Perry Ball MD; | | | Location: [facility] ENDOSCOPY; Service: Gastroenterology; | | | [...] PM | | | Pt transferred from [facility] with upper GI bleed and | | | hematemesis. I will order for repeat blood count, check liver | | | enzymes, INR, aPTT, GI consult, and arrange for pt admission. | | | 6:02 PM Hemoccult performed. (See procedure for details). 6:08 PM | | | Reviewed work-up and records from [facility]. They diagnosed the | | | pt with having an Upper GI bleed, which is not supported by the hx | | | or exam. CT of abd was normal. Lab work from [facility] was not | | | significant. [...] Date/Time Complete Metabolic | | | Panel [[id number]] (Abnormal) Collected:08/10/135 Order | | | Status:Completed [...] | | EGFR >60 >60 mL/min/1.73m2 Lipase [[id number]] (Abnormal) | | | Collected:08/10/131814 Order Status:Completed Updated:08/10/13 | | | 1854 Specimen Information:Blood LIPASE 66 (L) 73 - 393 U/L | | | CBC w Auto Diff [[id number]] (Abnormal) Collected:08/10/131814 | | | Order Status:Completed [...] MORPHOLOGY APPEAR NORMAL | | | PT [[id number]] Collected:08/10/131814 Order Status:Completed | | | Updated:08/10/131838 Specimen Information:Blood INR 1.1 | | | PTT [[id number]] (Abnormal) Collected:08/10/131814 Order | | | Status:Completed [...] for a visit 1100 | | | [facility] [address] [place] [address] [place] | | | MD Lanny In 2 weeks [address] [facility] [address] | | | [phone] Discharge Medications: New Prescriptions | | | [...] EXTERNAL | | | | performed at [facility], [address] | | LAB | | | | [address], | | | | | | [place] [address] | | | | + + + + + + | Non- | 3.58 (L)Comment: Testing | 4.20 - 5.70 | EXTERNAL | | | Red Blood | performed at [facility], [address] | M/uL | LAB | | | Cells | [address], | | | | | Counted | [place] [address] | | | | + + + + + + | Hemoglobin | 11.0 (L)Comment: Testing | 13.2 - 17.0 | EXTERNAL | | | | performed at [facility], [address] | g/dL | LAB | | | | [address], | | | | | | [place] [address] | | | | + + + + + + | Hematocrit, | 33.5 (L)Comment: Testing | 39.0 - 50.0 % | EXTERNAL | | | POC | performed at [facility], [address] | | LAB | | | | [address], | | | | | | [place] [address] | | | | + + + + + + | MCV | 93.6Comment: Testing | 80.0 - 100.0 fl | EXTERNAL | | | | performed at [facility], [address] | | LAB | | | | [address], | | | | | | [place] [address] | | | | + + + + + + | MCH | 30.7Comment: Testing | 27.0 - 34.0 pg | EXTERNAL | | | | performed at [facility], [address] | | LAB | | | | [address], | | | | | | [place] [address] | | | | + + + + + + | MCHC | 32.8Comment: Testing | 32.0 - 35.5 | EXTERNAL | | | | performed at [facility], [address] | g/dL | LAB | | | | [address], | | | | | | [place] [address] | | | | + + + + + + | RDW-CV | 43.3Comment: Testing | 37 - 53 fl | EXTERNAL | | | | performed at [facility], [address] | | LAB | | | | [address], | | | | | | [place] [address] | | | | + + + + + + | Platelet | 186Comment: Testing | 150 - 400 K/uL | EXTERNAL | | | Count | performed at [facility], [address] | | LAB | | | Plasma | [address], | | | | | | [place] [address] | | | | + + + + + + | MPV | 10.1Comment: Testing | fl | EXTERNAL | | | | performed at [facility], [address] | | LAB | | | | [address], | | | | | | [place] [address] | | | | + + + + + + | Differentia | AUTOMATEDComment: | | EXTERNAL | | | l Type | Testing performed at | | LAB | | | | [facility], [address] | | | | | | [place] | | | | | | [address] | | | | + + + + + + | % Segmented | 66.0Comment: Testing | % | EXTERNAL | | | | performed at [facility], [address] | | LAB | | | Neutrophils | [address], | | | | | | [place] [address] | | | | + + + + + + | % | 20.0Comment: Testing | % | EXTERNAL | | | Lymphocytes | performed at [facility], [address] | | LAB | | | | [address], | | | | | | [place] [address] | | | | + + + + + + | % Monocytes | 7.3Comment: Testing | % | EXTERNAL | | | | performed at [facility], [address] | | LAB | | | | [address], | | | | | | [place] [address] | | | | + + + + + + | % | 6.3Comment: Testing | % | EXTERNAL | | | Eosinophils | performed at [facility], [address] | | LAB | | | | [address], | | | | | | [place] [address] | | | | + + + + + + | % Basophils | 0.4Comment: Testing | % | EXTERNAL | | | | performed at [facility], [address] | | LAB | | | | [address], | | | | | | [place] [address] | | | | + + + + + + | Absolute | 5.5Comment: Testing | 1.9 - 7.4 K/uL | EXTERNAL | | | Segmented | performed at [facility], [address] | | LAB | | | Neutrophils | [address], | | | | | | [place] [address] | | | | + + + + + + | Absolute | 1.7Comment: Testing | 1.0 - 3.9 K/uL | EXTERNAL | | | Lymphocytes | performed at [facility], [address] | | LAB | | | | [address], | | | | | | [place] [address] | | | | + + + + + + | Absolute | 0.6Comment: Testing | 0 - 0.8 K/uL | EXTERNAL | | | Monocytes | performed at [facility], [address] | | LAB | | | | [address], | | | | | | [place] [address] | | | | + + + + + + | Absolute | 0.5Comment: Testing | 0 - 0.5 K/uL | EXTERNAL | | | Eosinophils | performed at [facility], [address] | | LAB | | | | [address], | | | | | | [place] [address] | | | | + + + + + + | Absolute | 0.0Comment: Testing | 0 - 0.1 K/uL | EXTERNAL | | | Basophils | performed at [facility], [address] | | LAB | | | | [address], | | | | | | [place] [address] | | | | + + + [...] EXTERNAL | | | | performed at [facility], [address] | | LAB | | | | [address], | | | | | | [place] [address] | | | | + + + [...] | | | | | [place] [address] | | | | + + + + + + | K | 3.9Comment: Testing | 3.5 - 4.9 | EXTERNAL | | | | performed at [facility], [address] | mmol/L | LAB | | | | [address], | | | | | | [place] [address] | | | | + + + + + + | Cl | 103Comment: Testing | 99 - 109 mmol/L | EXTERNAL | | | | performed at [facility], [address] | | LAB | | | | [address], | | | | | | [place] [address] | | | | + + + + + + | CO2 | 28Comment: Testing | 23 - 32 mmol/L | EXTERNAL | | | | performed at [facility], [address] | | LAB | | | | [address], | | | | | | [place] [address] | | | | + + + + + + | Anion Gap | 11Comment: Testing | 5 - 20 mmol/L | EXTERNAL | | | | performed at [facility], [address] | | LAB | | | | [address], | | | | | | [place] [address] | | | | + + + + + + | Glucose, | 114 (H)Comment: Testing | 65 - 99 mg/dL | EXTERNAL | | | Fasting | performed at [facility], [address] | | LAB | | | | [address], | | | | | | [place] [address] | | | | + + + + + + | BUN | 14Comment: Testing | 8 - 25 mg/dL | EXTERNAL | | | | performed at [facility], [address] | | LAB | | | | [address], | | | | | | [place] [address] | | | | + + + + + + | Creatinine | 0.89Comment: Testing | 0.70 - 1.30 | EXTERNAL | | | | performed at [facility], [address] | mg/dL | LAB | | | | [address], | | | | | | [place] [address] | | | | + + + + + + | BUN/Creatin | 16Comment: Testing | | EXTERNAL | | | ine Ratio | performed at [facility], [address] | | LAB | | | [address], | | | | | | [place] [address] | | | | + + + + + + | Calcium | 8.6Comment: Testing | 8.5 - 10.2 | EXTERNAL | | | | performed at [facility], [address] | mg/dL | LAB | | | | [address], | | | | | | [place] [address] | | | | + + + + + + | Protein, | 5.7 (L)Comment: Testing | 6.3 - 8.2 g/dL | EXTERNAL | | | Total | performed at [facility], [address] | | LAB | | | | [address], | | | | | | [place] [address] | | | | + + + + + + | Albumin | 3.7Comment: Testing | 3.3 - 4.8 g/dL | EXTERNAL | | | | performed at [facility], [address] | | LAB | | | | [address], | | | | | | [place] [address] | | | | + + + + + + | Globulin | 2.0Comment: Testing | 1.3 - 4.9 g/dL | EXTERNAL | | | | performed at [facility], [address] | | LAB | | | | [address], | | | | | | [place] [address] | | | | + + + + + + | A/G Ratio | 1.9Comment: Testing | 1.0 - 2.4 | EXTERNAL | | | | performed at [facility], [address] | | LAB | | | | [address], | | | | | | [place] [address] | | | | + + + + + + | Bilirubin | 0.8Comment: Testing | 0.1 - 1.5 mg/dL | EXTERNAL | | | Total | performed at [facility], [address] | | LAB | | | | [address], | | | | | | [place] [address] | | | | + + + + + + | ALP, | 36Comment: Testing | 35 - 115 U/L | EXTERNAL | | | External | performed at [facility], [address] | | LAB | | | | [address], | | | | | | [place] [address] | | | | + + + + + + | AST | 12Comment: Testing | 10 - 45 U/L | EXTERNAL | | | | performed at [facility], [address] | | LAB | | | | [address], | | | | | | [place] [address] | | | | + + + + + + | ALT | 12Comment: Testing | 10 - 65 U/L | EXTERNAL | | | | performed at [facility], [address] | | LAB | | | | [address], | | | | | | [place] [address] | | | | + + + [...] | | | | | | at [facility], [address] | | | | | | [address], | | | | | | [place] [address] | | | | + + + [...] | | | | | [place] [address] | | | | + + + + + + | Non- | 3.42 (L)Comment: Testing | 4.20 - 5.70 | EXTERNAL | | | Red Blood | performed at [facility], [address] | M/uL | LAB | | | Cells | [address], | | | | | Counted | [place] [address] | | | | + + + + + + | Hemoglobin | 10.6 (L)Comment: Testing | 13.2 - 17.0 | EXTERNAL | | | | performed at [facility], [address] | g/dL | LAB | | | | [address], | | | | | | [place] [address] | | | | + + + + + + | Hematocrit, | 31.8 (L)Comment: Testing | 39.0 - 50.0 % | EXTERNAL | | | POC | performed at [facility], [address] | | LAB | | | | [address], | | | | | | [place] [address] | | | | + + + + + + | MCV | 93.0Comment: Testing | 80.0 - 100.0 fl | EXTERNAL | | | | performed at [facility], [address] | | LAB | | | | [address], | | | | | | [place] [address] | | | | + + + + + + | MCH | 31.0Comment: Testing | 27.0 - 34.0 pg | EXTERNAL | | | | performed at [facility], [address] | | LAB | | | | [address], | | | | | | [place] [address] | | | | + + + + + + | MCHC | 33.3Comment: Testing | 32.0 - 35.5 | EXTERNAL | | | | performed at [facility], [address] | g/dL | LAB | | | | [address], | | | | | | [place] [address] | | | | + + + + + + | RDW-CV | 44.2Comment: Testing | 37 - 53 fl | EXTERNAL | | | | performed at [facility], [address] | | LAB | | | | [address], | | | | | | [place] [address] | | | | + + + + + + | Platelet | 171Comment: Testing | 150 - 400 K/uL | EXTERNAL | | | Count | performed at [facility], [address] | | LAB | | | Plasma | [address], | | | | | | [place] [address] | | | | + + + + + + | MPV | 9.9Comment: Testing | fl | EXTERNAL | | | | performed at [facility], [address] | | LAB | | | | [address], | | | | | | [place] [address] | | | | + + + + + + | Differentia | AUTOMATEDComment: | | EXTERNAL | | | l Type | Testing performed at | | LAB | | | | [facility], [address] | | | | | | [place] | | | | | | [address] | | | | + + + + + + | % Segmented | 69.8Comment: Testing | % | EXTERNAL | | | | performed at [facility], [address] | | LAB | | | Neutrophils | [address], | | | | | | [place] [address] | | | | + + + + + + | % | 19.3Comment: Testing | % | EXTERNAL | | | Lymphocytes | performed at [facility], [address] | | LAB | | | | [address], | | | | | | [place] [address] | | | | + + + + + + | % Monocytes | 6.3Comment: Testing | % | EXTERNAL | | | | performed at [facility], [address] | | LAB | | | | [address], | | | | | | [place] [address] | | | | + + + + + + | % | 4.1Comment: Testing | % | EXTERNAL | | | Eosinophils | performed at [facility], [address] | | LAB | | | | [address], | | | | | | [place] [address] | | | | + + + + + + | % Basophils | 0.5Comment: Testing | % | EXTERNAL | | | | performed at [facility], [address] | | LAB | | | | [address], | | | | | | [place] [address] | | | | + + + + + + | Absolute | 5.2Comment: Testing | 1.9 - 7.4 K/uL | EXTERNAL | | | Segmented | performed at [facility], [address] | | LAB | | | Neutrophils | [address], | | | | | | [place] [address] | | | | + + + + + + | Absolute | 1.4Comment: Testing | 1.0 - 3.9 K/uL | EXTERNAL | | | Lymphocytes | performed at [facility], [address] | | LAB | | | | [address], | | | | | | [place] [address] | | | | + + + + + + | Absolute | 0.5Comment: Testing | 0 - 0.8 K/uL | EXTERNAL | | | Monocytes | performed at [facility], [address] | | LAB | | | | [address], | | | | | | [place] [address] | | | | + + + + + + | Absolute | 0.3Comment: Testing | 0 - 0.5 K/uL | EXTERNAL | | | Eosinophils | performed at [facility], [address] | | LAB | | | | [address], | | | | | | [place] [address] | | | | + + + + + + | Absolute | 0.0Comment: Testing | 0 - 0.1 K/uL | EXTERNAL | | | Basophils | performed at [facility], [address] | | LAB | | | | [address], | | | | | | [place] [address] | | | | + + + [...] | | | | | [place] [address] | | | | + + + + + + | K | 4.6Comment: Testing | 3.5 - 4.9 | EXTERNAL | | | | performed at [facility], [address] | mmol/L | LAB | | | | [address], | | | | | | [place] [address] | | | | + + + + + + | Cl | 107Comment: Testing | 99 - 109 mmol/L | EXTERNAL | | | | performed at [facility], [address] | | LAB | | | [address], | | | | | | [place] [address] | | | | + + + + + + | CO2 | 30Comment: Testing | 23 - 32 mmol/L | EXTERNAL | | | | performed at [facility], [address] | | LAB | | | | [address], | | | | | | [place] [address] | | | | + + + + + + | Anion Gap | 9Comment: Testing | 5 - 20 mmol/L | EXTERNAL | | | | performed at [facility], [address] | | LAB | | | | [address], | | | | | | [place] [address] | | | | + + + + + + | Glucose, | 104 (H)Comment: Testing | 65 - 99 mg/dL | EXTERNAL | | | Fasting | performed at [facility], [address] | | LAB | | | | [address], | | | | | | [place] [address] | | | | + + + + + + | BUN | 22Comment: Testing | 8 - 25 mg/dL | EXTERNAL | | | | performed at [facility], [address] | | LAB | | | | [address], | | | | | | [place] [address] | | | | + + + + + + | Creatinine | 0.95Comment: Testing | 0.70 - 1.30 | EXTERNAL | | | | performed at [facility], [address] | mg/dL | LAB | | | | [address], | | | | | | [place] [address] | | | | + + + + + + | BUN/Creatin | 23Comment: Testing | | EXTERNAL | | | ine Ratio | performed at [facility], [address] | | LAB | | | | [address], | | | | | | [place] [address] | | | | + + + + + + | Calcium | 8.3 (L)Comment: Testing | 8.5 - 10.2 | EXTERNAL | | | | performed at [facility], [address] | mg/dL | LAB | | | | [address], | | | | | | [place] [address] | | | | + + + + + + | Protein, | 5.4 (L)Comment: Testing | 6.3 - 8.2 g/dL | EXTERNAL | | | Total | performed at [facility], [address] | | LAB | | | [address], | | | | | | [place], [place] [address] | | | | + + + + + + | Albumin | 3.5Comment: Testing | 3.3 - 4.8 g/dL | EXTERNAL | | | | performed at [facility], [address] | | LAB | | | | [address], | | | | | | [place], [place] [address] | | | | + + + + + + | Globulin | 1.9Comment: Testing | 1.3 - 4.9 g/dL | EXTERNAL | | | | performed at [facility], [address] | | LAB | | | | [address], | | | | | | [place] [address] | | | | + + + + + + | A/G Ratio | 1.8Comment: Testing | 1.0 - 2.4 | EXTERNAL | | | | performed at [facility], [address] | | LAB | | | | [address], | | | | | | [place] [address] | | | | + + + + + + | Bilirubin | 0.7Comment: Testing | 0.1 - 1.5 mg/dL | EXTERNAL | | | Total | performed at [facility], [address] | | LAB | | | | [address], | | | | | | [place] [address] | | | | + + + + + + | ALP, | 32 (L)Comment: Testing | 35 - 115 U/L | EXTERNAL | | | External | performed at [facility], [address] | | LAB | | | | [address], | | | | | | [place] [address] | | | | + + + + + + | AST | 15Comment: Testing | 10 - 45 U/L | EXTERNAL | | | | performed at [facility], [address] | | LAB | | | | [address], | | | | | | [place] [address] | | | | + + + + + + | ALT | 12Comment: Testing | 10 - 65 U/L | EXTERNAL | | | | performed at [facility], [address] | | LAB | | | | [address], | | | | | | [place] [address] | | | | + + + [...] W | | | | | | [address], | | | | | | [place] [address] | | | | + + + [...] EXTERNAL | | | | performed at [facility];888 | g/dL | LAB | | | | [address];[place] | | | | | | [address] | | | | + + + + + + | Hematocrit, | 34.1 (L)Comment: Testing | 39.0 - 50.0 % | EXTERNAL | | | POC | performed at [facility];[address] | | LAB | | | | [address];[place], [place] | | | | | | [address] | | | | + + + [...] EXTERNAL | | | | performed at [facility];888 | g/dL | LAB | | | | [address];[place] | | | | | | [address] | | | | + + + + + + | Hematocrit, | 34.7 (L)Comment: Testing | 39.0 - 50.0 % | EXTERNAL | | | POC | performed at [facility];[address] | | LAB | | | | [address];[place] | | | | | | [address] | | | | + + + [...] EXTERNAL | | | | performed at [facility], [address] | | LAB | | | [address], | | | | | | [place] [address] | | | | + + + + + + | Non- | 3.42 (L)Comment: Testing | 4.20 - 5.70 | EXTERNAL | | | Red Blood | performed at [facility], [address] | M/uL | LAB | | | Cells | [address], | | | | | Counted | [place] [address] | | | | + + + + + + | Hemoglobin | 10.5 (L)Comment: Testing | 13.2 - 17.0 | EXTERNAL | | | | performed at [facility], [address] | g/dL | LAB | | | | [address], | | | | | | [place] [address] | | | | + + + + + + | Hematocrit, | 31.9 (L)Comment: Testing | 39.0 - 50.0 % | EXTERNAL | | | POC | performed at [facility], [address] | | LAB | | | | [address], | | | | | | [place] [address] | | | | + + + + + + | MCV | 93.5Comment: Testing | 80.0 - 100.0 fl | EXTERNAL | | | | performed at [facility], [address] | | LAB | | | | [address], | | | | | | [place] [address] | | | | + + + + + + | MCH | 30.7Comment: Testing | 27.0 - 34.0 pg | EXTERNAL | | | | performed at [facility], [address] | | LAB | | | | [address], | | | | | | [place] [address] | | | | + + + + + + | MCHC | 32.9Comment: Testing | 32.0 - 35.5 | EXTERNAL | | | | performed at [facility], [address] | g/dL | LAB | | | | [address], | | | | | | [place] [address] | | | | + + + + + + | RDW-CV | 43.8Comment: Testing | 37 - 53 fl | EXTERNAL | | | | performed at [facility], [address] | | LAB | | | | [address], | | | | | | [place] [address] | | | | + + + + + + | Platelet | 164Comment: Testing | 150 - 400 K/uL | EXTERNAL | | | Count | performed at [facility], [address] | | LAB | | | Plasma | [address], | | | | | | [place] [address] | | | | + + + + + + | MPV | 10.4Comment: Testing | fl | EXTERNAL | | | | performed at [facility], [address] | | LAB | | | | [address], | | | | | | [place] [address] | | | | + + + + + + | Differentia | AUTOMATEDComment: | | EXTERNAL | | | l Type | Testing performed at | | LAB | | | | [facility], [address] | | | | | | [place] | | | | | | [address] | | | | + + + + + + | % Segmented | 65.6Comment: Testing | % | EXTERNAL | | | | performed at [facility], [address] | | LAB | | | Neutrophils | [address], | | | | | | [place] [address] | | | | + + + + + + | % | 23.8Comment: Testing | % | EXTERNAL | | | Lymphocytes | performed at [facility], [address] | | LAB | | | | [address], | | | | | | [place] [address] | | | | + + + + + + | % Monocytes | 9.2Comment: Testing | % | EXTERNAL | | | | performed at [facility], [address] | | LAB | | | | [address], | | | | | | [place] [address] | | | | + + + + + + | % | 1.0Comment: Testing | % | EXTERNAL | | | Eosinophils | performed at [facility], [address] | | LAB | | | | [address], | | | | | | [place] [address] | | | | + + + + + + | % Basophils | 0.4Comment: Testing | % | EXTERNAL | | | | performed at [facility], [address] | | LAB | | | | [address], | | | | | | [place] [address] | | | | + + + + + + | Absolute | 4.6Comment: Testing | 1.9 - 7.4 K/uL | EXTERNAL | | | Segmented | performed at [facility], [address] | | LAB | | | Neutrophils | [address], | | | | | | [place] [address] | | | | + + + + + + | Absolute | 1.7Comment: Testing | 1.0 - 3.9 K/uL | EXTERNAL | | | Lymphocytes | performed at [facility], [address] | | LAB | | | | [address], | | | | | | [place] [address] | | | | + + + + + + | Absolute | 0.6Comment: Testing | 0 - 0.8 K/uL | EXTERNAL | | | Monocytes | performed at [facility], [address] | | LAB | | | | [address], | | | | | | [place] [address] | | | | + + + + + + | Absolute | 0.1Comment: Testing | 0 - 0.5 K/uL | EXTERNAL | | | Eosinophils | performed at [facility], [address] | | LAB | | | | [address], | | | | | | [place] [address] | | | | + + + + + + | Absolute | 0.0Comment: Testing | 0 - 0.1 K/uL | EXTERNAL | | | Basophils | performed at [facility], [address] | | LAB | | | | [address], | | | | | | [place] [address] | | | | + + + [...] EXTERNAL | | | | performed at [facility], [address] | uIU/mL | LAB | | | | [address], | | | | | | [place] [address] | | | | + + + [...] EXTERNAL | | | | performed at [facility], [address] | | LAB | | [...] EXTERNAL | | | | performed at [facility], [address] | | LAB | | | | [address], | | | | | | [place] [address] | | | | + + + [...] + + | Hemoglobin | 5.8Comment: The Italian | 4.0 - 6.0 % | EXTERNAL [...] | | | | | performed at [facility], [address] | | | | | | [address], | | | | | | [place] [address] | | | | + + + [...] | | | | | performed at [facility], [address] | | | | | | [address], | | | | | | [place] [address] | | | | + + + [...] | | | | | [place] [address] | | | | + + + + + + | K | 4.1Comment: Testing | 3.5 - 4.9 | EXTERNAL | | | | performed at [facility], [address] | mmol/L | LAB | | | | [address], | | | | | | [place] [address] | | | | + + + + + + | Cl | 109Comment: Testing | 99 - 109 mmol/L | EXTERNAL | | | | performed at [facility], [address] | | LAB | | | | [address], | | | | | | [place] [address] | | | | + + + + + + | CO2 | 26Comment: Testing | 23 - 32 mmol/L | EXTERNAL | | | | performed at [facility], [address] | | LAB | | | | [address], | | | | | | [place] [address] | | | | + + + + + + | Anion Gap | 8Comment: Testing | 5 - 20 mmol/L | EXTERNAL | | | | performed at [facility], [address] | | LAB | | | | [address], | | | | | | [place] [address] | | | | + + + + + + | Glucose, | 90Comment: Testing | 65 - 99 mg/dL | EXTERNAL | | | Fasting | performed at [facility], [address] | | LAB | | | | [address], | | | | | | [place] [address] | | | | + + + + + + | BUN | 48 (H)Comment: Testing | 8 - 25 mg/dL | EXTERNAL | | | | performed at [facility], [address] | | LAB | | | | [address], | | | | | | [place] [address] | | | | + + + + + + | Creatinine | 0.92Comment: Testing | 0.70 - 1.30 | EXTERNAL | | | | performed at [facility], [address] | mg/dL | LAB | | | | [address], | | | | | | [place] [address] | | | | + + + + + + | BUN/Creatin | 52Comment: Testing | | EXTERNAL | | | ine Ratio | performed at [facility], [address] | | LAB | | | | [address], | | | | | | [place] [address] | | | | + + + + + + | Calcium | 7.8 (L)Comment: Testing | 8.5 - 10.2 | EXTERNAL | | | | performed at [facility], [address] | mg/dL | LAB | | | | [address], | | | | | | [place] [address] | | | | + + + + + + | Protein, | 5.1 (L)Comment: Testing | 6.3 - 8.2 g/dL | EXTERNAL | | | Total | performed at [facility], [address] | | LAB | | | | [address], | | | | | | [place] [address] | | | | + + + + + + | Albumin | 3.3Comment: Testing | 3.3 - 4.8 g/dL | EXTERNAL | | | | performed at [facility], [address] | | LAB | | | | [address], | | | | | | [place] [address] | | | | + + + + + + | Globulin | 1.8Comment: Testing | 1.3 - 4.9 g/dL | EXTERNAL | | | | performed at [facility], [address] | | LAB | | | | [address], | | | | | | [place] [address] | | | | + + + + + + | A/G Ratio | 1.8Comment: Testing | 1.0 - 2.4 | EXTERNAL | | | | performed at [facility], [address] | | LAB | | | [address], | | | | | | [place] [address] | | | | + + + + + + | Bilirubin | 0.6Comment: Testing | 0.1 - 1.5 mg/dL | EXTERNAL | | | Total | performed at [facility], [address] | | LAB | | | | [address], | | | | | | [place] [address] | | | | + + + + + + | ALP, | 27 (L)Comment: Testing | 35 - 115 U/L | EXTERNAL | | | External | performed at [facility], [address] | | LAB | | | | [address], | | | | | | [place] [address] | | | | + + + + + + | AST | 11Comment: Testing | 10 - 45 U/L | EXTERNAL | | | | performed at [facility], [address] | | LAB | | | | [address], | | | | | | [place] [address] | | | | + + + + + + | ALT | 12Comment: Testing | 10 - 65 U/L | EXTERNAL | | | | performed at [facility], [address] | | LAB | | | | [address], | | | | | | [place] [address] | | | | + + + [...] Blvd, | | | | | | [place] [address] | | | | + + + [...] EXTERNAL | | | | performed at [facility];888 | g/dL | LAB | | | | [address];[place] | | | | | | [address] | | | | + + + + + + | Hematocrit, | 31.2 (L)Comment: Testing | 39.0 - 50.0 % | EXTERNAL | | | POC | performed at [facility];[address] | | LAB | | | | [address];[place] | | | | | | [address] | | | | + + + [...] | | LAB | | | | Blvd;[place] [address] | | | | + + + + + + | Antibody | NEGATIVE | | EXTERNAL | | | Screen | | | LAB | | + + + + + + | Antibody | Testing performed at | | EXTERNAL | | | Screen | [facility];[address] | | LAB | | | [address];[place] [address] | | | | + + + + + + | BB BAND | [id number] | | EXTERNAL | | | | | | LAB | | + + + + + + | BB BAND | Testing performed at | | EXTERNAL | | | | [facility];[address] | | LAB | | | [address];[place] [address] | | | | + + + [...] | | | Patient | performed at [facility];[address] | | LAB | | | | [address];[place], [place] | | | | | | [address] | | | | + + + [...] | | | | | performed at [facility];[address] | | | | | | [facility];[place], [place] | | | | | | [address] | | | | + + + [...] EXTERNAL | | | | performed at [facility];[address] | | LAB | | | | [address];[place] | | | | | | [address] | | | | + + + + + + | Non- | 3.85 (L)Comment: Testing | 4.20 - 5.70 | EXTERNAL | | | Red Blood | performed at [facility];888 | M/uL | LAB | | | Cells | [address];[place] | | | | | Counted | [address] | | | | + + + + + + | Hemoglobin | 11.8 (L)Comment: Testing | 13.2 - 17.0 | EXTERNAL | | | | performed at [facility];888 | g/dL | LAB | | | | [address];[place] | | | | | | [address] | | | | + + + + + + | Hematocrit, | 35.6 (L)Comment: Testing | 39.0 - 50.0 % | EXTERNAL | | | POC | performed at [facility];[address] | | LAB | | | | [address];[place] | | | | | | [address] | | | | + + + + + + | MCV | 92.5Comment: Testing | 80.0 - 100.0 fl | EXTERNAL | | | | performed at [facility];[address] | | LAB | | | | [address];[place] | | | | | | [address] | | | | + + + + + + | MCH | 30.5Comment: Testing | 27.0 - 34.0 pg | EXTERNAL | | | | performed at [facility];[address] | | LAB | | | | [address];[place] | | | | | | [address] | | | | + + + + + + | MCHC | 33.0Comment: Testing | 32.0 - 35.5 | EXTERNAL | | | | performed at [facility];888 | g/dL | LAB | | | | [address];[place] | | | | | | [address] | | | | + + + + + + | RDW-CV | 44.2Comment: Testing | 37 - 53 fl | EXTERNAL | | | | performed at [facility];[address] | | LAB | | | | [address];[place] | | | | | | [address] | | | | + + + + + + | Platelet | 189Comment: Testing | 150 - 400 K/uL | EXTERNAL | | | Count | performed at [facility];[address] | | LAB | | | Plasma | [address];[place] | | | | | | [address] | | | | + + + + + + | MPV | 9.9Comment: Testing | fl | EXTERNAL | | | | performed at [facility];[address] | | LAB | | | | [address];[place] | | | | | | [address] | | | | + + + + + + | Differentia | MANUALComment: Testing | | EXTERNAL | | | l Type | performed at [facility];[address] | | LAB | | | | [address];[place] | | | | | | [address] | | | | + + + + + + | Segmented | 80Comment: Testing | % | EXTERNAL | | | Neutrophils | performed at [facility];[address] | | LAB | | | Manual | [address];[place] | | | | | | [address] | | | | + + + + + + | % Bands | 6Comment: Testing | % | EXTERNAL | | | | performed at [facility];[address] | | LAB | | | | [address];[place] | | | | | | [address] | | | | + + + + + + | Lymphocytes | 9Comment: Testing | % | EXTERNAL | | | Manual | performed at [facility];[address] | | LAB | | | | [address];[place] | | | | | | [address] | | | | + + + + + + | Monocytes | 5Comment: Testing | % | EXTERNAL | | | Manual | performed at [facility];[address] | | LAB | | | | [address];[place] | | | | | | [address] | | | | + + + + + + | Absolute | 8.8 (H)Comment: Testing | 1.9 - 7.4 K/uL | EXTERNAL | | | Neutrophils | performed at [facility];[address] | | LAB | | | | [address];[place] | | | | | | [address] | | | | + + + + + + | Bands | 0.7 (H)Comment: Testing | 0 - 0.2 K/uL | EXTERNAL | | | Manual | performed at [facility];[address] | | LAB | | | | [address];[place] | | | | | | [address] | | | | + + + + + + | Absolute | 1.0Comment: Testing | 1.0 - 3.9 K/uL | EXTERNAL | | | Lymphocytes | performed at [facility];[address] | | LAB | | | | [address];[place] | | | | | | [address] | | | | + + + + + + | Absolute | 0.6Comment: Testing | 0 - 0.8 K/uL | EXTERNAL | | | Monocytes | performed at [facility];[address] | | LAB | | | | [address];[place] | | | | | | [address] | | | | + + + + + + | Platelet | ADEQUATEComment: Testing | | EXTERNAL | | | Estimate | performed at [facility];[address] | | LAB | | | | [address];[place] | | | | | | [address] | | | | + + + + + + | RBC | RBC AND PLT MORPHOLOGY | | EXTERNAL | | | Morphology | APPEAR NORMALComment: | | LAB | | | | Testing performed at | | | | | | [facility];[address];[place] [address] | | | | + + + [...] EXTERNAL | | | | performed at [facility];[address] | | LAB | | | | [address] [facility];[place] | | | | | | [address] | | | | + + + [...] EXTERNAL | | | | performed at [facility];888 | mmol/L | LAB | | | | [address];[place] | | | | | | [address] | | | | + + + + + + | K | 4.8Comment: Testing | 3.5 - 4.9 | EXTERNAL | | | | performed at [facility];888 | mmol/L | LAB | | | | [address];[place] | | | | | | [address] | | | | + + + + + + | Cl | 107Comment: Testing | 99 - 109 mmol/L | EXTERNAL | | | | performed at [facility];[address] | | LAB | | | | [address];[place] | | | | | | [address] | | | | + + + + + + | CO2 | 27Comment: Testing | 23 - 32 mmol/L | EXTERNAL | | | | performed at [facility];[address] | | LAB | | | | [address];[place] | | | | | | [address] | | | | + + + + + + | Anion Gap | 11Comment: Testing | 5 - 20 mmol/L | EXTERNAL | | | | performed at [facility];[address] | | LAB | | | | [address];[place] | | | | | | [address] | | | | + + + + + + | Glucose, | 146 (H)Comment: Testing | 65 - 99 mg/dL | EXTERNAL | | | Fasting | performed at [facility];[address] | | LAB | | | | [address];[place] | | | | | | [address] | | | | + + + + + + | BUN | 46 (H)Comment: Testing | 8 - 25 mg/dL | EXTERNAL | | | | performed at [facility];[address] | | LAB | | | | [address];[place] | | | | | | [address] | | | | + + + + + + | Creatinine | 0.91Comment: Testing | 0.70 - 1.30 | EXTERNAL | | | | performed at [facility];888 | mg/dL | LAB | | | | [address];[place] | | | | | | [address] | | | | + + + + + + | BUN/Creatin | 50Comment: Testing | | EXTERNAL | | | ine Ratio | performed at [facility];[address] | | LAB | | | | [address];[place] | | | | | | [address] | | | | + + + + + + | Calcium | 7.4 (L)Comment: Testing | 8.5 - 10.2 | EXTERNAL | | | | performed at [facility];888 | mg/dL | LAB | | | | [address];[place] | | | | | | [address] | | | | + + + + + + | Protein, | 5.8 (L)Comment: Testing | 6.3 - 8.2 g/dL | EXTERNAL | | | Total | performed at [facility];888 | | LAB | | | | [address];[place] | | | | | | [address] | | | | + + + + + + | Albumin | 3.2 (L)Comment: Testing | 3.3 - 4.8 g/dL | EXTERNAL | | | | performed at [facility];888 | | LAB | | | | [address];[place] | | | | | | [address] | | | | + + + + + + | Globulin | 2.6Comment: Testing | 1.3 - 4.9 g/dL | EXTERNAL | | | | performed at [facility];888 | | LAB | | | | [address];[place] | | | | | | [address] | | | | + + + + + + | A/G Ratio | 1.2Comment: Testing | 1.0 - 2.4 | EXTERNAL | | | | performed at [facility];888 | | LAB | | | | [address];[place] | | | | | | [address] | | | | + + + + + + | Bilirubin | 0.5Comment: Testing | 0.1 - 1.5 mg/dL | EXTERNAL | | | Total | performed at [facility];888 | | LAB | | | | [address];[place] | | | | | | [address] | | | | + + + + + + | ALP, | 47Comment: Testing | 35 - 115 U/L | EXTERNAL | | | External | performed at [facility];[address] | | LAB | | | | [address];[place] | | | | | | [address] | | | | + + + + + + | AST | 11Comment: Testing | 10 - 45 U/L | EXTERNAL | | | | performed at [facility];888 | | LAB | | | | [address];[place] | | | | | | [address] | | | | + + + + + + | ALT | 19Comment: Testing | 10 - 65 U/L | EXTERNAL | | | | performed at [facility];888 | | LAB | | | | [address];[place] | | | | | | [address] | | | | + + [...] | | | | | | at [facility];[address] [facility] | | | | | | [address];[place] [address] | | | | + + + [...]
--- OUTSIDE RECORDS SUMMARY | ~2019-11-25 | XMS | Encounter Summary ---
Demographics + + + | Address | [address] | | | [place] [address] | + + + | Home Phone [...] Providers + +------+ + | Care Wrapper Sheeter Name | Role | Phone | + [...] | | | | | Carolina Estevez [place], | [place], [place] | | | | | [place] [address] | [phone] | | | | | [phone] | [phone] | | | | | | | [...]
--- OUTSIDE RECORDS SUMMARY | ~2019-11-25 | XMS | Encounter Summary ---
Demographics + + + | Address | [address] | | | [place] [address] | + + + | Home Phone [...] Team Providers + +------+ + | Care Potato Spotter Name | Role | Phone | + [...] | | | | | Carolina Este[place], | [place], [place] | | | | | [place] [address] | [phone] | | | | | [phone] | [phone] | | | | | | | [...] PT other exercises he can practice, given [id number] status # Insomnia, sleep-onset - Sleep hygiene: [...] additions/clarifications/exceptions: none Crystal Evans MD [facility] Division of Internal Medicine and Geriatrics documented in this encounter Plan of Treatment Not on filedocumented as of this encounter Visit Diagnoses Not on filedocumented in this encounter
--- OUTSIDE RECORDS SUMMARY | ~2019-11-25 | XMS | Encounter Summary ---
Demographics + + + | Address | [address] | | | [place] [address] | + + + | Home Phone [...] Team Providers + +------+ + | Care Culinary Art Teacher Name | Role | Phone | [...] | Transcriptions | + + | Interface, Bandage Maker In - 11/26/2005 3:10 AM PDT | | [place] [address] | | [place], [place] [address] | | [facility] RECORDMed Rec No.: | | [id number] Date: [...] waspatched.Fozia Crawford M.D., PhDJTS:X44D: 06/19/2002T: | | 06/20/[id number] | |lid speculum was placed. Slit light [...] | |JTS:X44 | | | | | |[phone] | + + documented in this encounter Visit Diagnoses Not on filedocumented in this encounter"
--- OUTSIDE RECORDS SUMMARY | 2019-11-25 20:40 | XMS ---
PreManage Notification: EDSON HURST Security Top Stop Attacher Events No recent Security Events currently on file CRITERIA MET - Group Notification - 6 ED Visits in 6 Months - [facility] - Has Care Guidelines - PDMP - [facility] - 2 Visits in 30 Days CARE PROVIDERS ROSA ENNIS Physician 05/31/2018-Current PHONE: Unknown Jose F has no Care Guidelines for this patient. Care History Medical/Surgical 08/26/2019 [facility] Left message with [facility] requesting LAMA and ICS be added to patient\T\#39;s care plan. [facility]12 MO.) [facility] NOTE: Visits indicate total known visits. ED/UCC VISIT TRACKING (12 MO.) 11/25/2019 20:37 [facility] TYPE: Emergency COMPLAINT: - CONSTIPATION 11/19/2019 19:09 [facility] [place] TYPE: Emergency COMPLAINT: - SOB DIAGNOSES: - Allergy status to other drugs, medicaments and biological sub - Other senior care (current) 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 - Personal history of nicotine dependence - Heart failure, unspecified - Shortness of breath - Chronic atrial fibrillation, unspecified - Localized edema - senior living (current) use of aspirin - Chronic obstructive pulmonary disease, unspecified - Dependence on supplemental oxygen 08/23/2019 14:25 [facility] [place] TYPE: Emergency COMPLAINT: - BLOOD PRESSURE PROBLEM DIAGNOSES: - Personal history of nicotine dependence - Chronic obstructive pulmonary disease, unspecified - Other mannequin decorator (current) 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 - Weakness - Heart failure, unspecified - Unspecified atrial fibrillation 08/12/2019 09:09 [facility] [place] TYPE: Emergency COMPLAINT: - VOMITING DIAGNOSES: - Personal history of nicotine dependence - Nausea with vomiting, unspecified - Unspecified atrial fibrillation - Acute gastritis without bleeding - Other senior care (current) 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 - Chronic obstructive pulmonary [...] slipping, tripping and stumbling with - Other mannequin decorator (current) 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 - Laceration without foreign body of right forearm, initial enc 02/08/2019 20:35 [facility] [place] TYPE: Emergency COMPLAINT: - RAPID HEART RATE DIAGNOSES: - Other senior care (current) 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 - Constipation, unspecified - [...] sub - Essential (primary) hypertension - Other mannequin decorator (current) 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 - Unspecified atrial fibrillation [...] - Retention of urine, unspecified - Other senior care (current) 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 - Permanent atrial fibrillation - local intermodal truck driver (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 analgesic - Permanent atrial fibrillation - Respiratory failure, unspecified with hypoxia - Unsteadiness on feet - senior living (current) use of aspirin - Gastro-esophageal reflux disease without esophagitis - Allergy status to other drugs, medicaments and biological sub - senior living (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 analgesic - local intermodal truck driver (current) use of aspirin - Gastro-esophageal reflux disease without esophagitis - Chronic diastolic (congestive) heart failure - Chronic diastolic (congestive) heart failure - Respiratory failure, unspecified with hypoxia - Hyperlipidemia, unspecified - Other senior care (current) 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 - Retention of urine, [...] of first lumbar vertebra, subseque - Other mannequin decorator (current) 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 - Acute respiratory failure with hypoxia - Pneumonia due to Streptococcus pneumoniae - senior living (current) use of aspirin - Allergy status [...] of coronary angioplasty implant and graft - senior living (current) use of antithrombotics/antiplatelets - Other mannequin decorator (current) 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 - Gastro-esophageal reflux disease without esophagitis - Chronic obstructive pulmonary disease, unspecified - Hyperlipidemia, unspecified - Noninfective gastroenteritis and colitis, unspecified - Heart failure, unspecified - Personal history of nicotine dependence - Hypertensive heart disease with heart failure [email or web address]
== END 2019-11-25 21:25 | disposition home or self-care (01) ==
LOC: ED 20:37
DX: Z53.21 Procedure and treatment not carried out due to patient leaving prior to being seen by health care provider (principal)

== ENCOUNTER 2019-11-28 15:54 | Emergency (ER) | payer MEDICARE ==
[~2019-11-28] VITALS: Ht 175.3 cm; Wt 67.2 kg
--- OUTSIDE RECORDS SUMMARY | ~2019-11-28 | XMS | Clinical Summary ---
Demographics + + + | Address | [address] | | | [place] [address] | + + + | Home Phone [...] + + | Author | [facility] [facility] [employer] | + + + | Organization | [facility] [facility] [employer] | + + + | Address | Unknown | + + + | Phone | Unavailable | + + + Support + + +---------+ + | Name | Relationship | Address | Phone | + + +---------+ + | None Per Pt | ECON | Unknown | Unavailable | + + +---------+ + Care Team Providers + +------+ + | Care Eyeglass Inspector Name | Role | Phone | + +------+ + | Herlinda Maldonado | PCP | | + +------+ + Source Comments BETTINA is fully live on both [facility] Ambulatory and [facility] InPatient.[facility] Allergies + + + + [...] on file | | + + + + + + + | Job Start Date | Occupation | Industry | + + + + | Not on file | Not on file | Not on file | + + + + + + + + | Travel History | Travel Start | Travel End | + + + + + + | No recent travel history available. | + + Last Filed Vital Signs + [...] | | | | vaccination (1 of 2 | 0 | | | | - PCV13) | | | | + + + + + | Influenza (Flu) | | 03/19/2017, 02/09/2016, | | | vaccination (Season | 0 | 02/03/2014, Additional history | | | Ended) | | exists | | + + [...] Implanted: | | Hip | | | 7 | 5S / | | Qty: 1 on 06/03/2018 by | | | | | | /[id number] | | WorkingNguyễn MD at | | | | | | 88 | | [facility] INPATIENT REV LOC | | | | | | | + +------+--------+ +--------+--------+--------+ | Washer 13mm 6.6mm Lcp | | Left: | [employer] | | | 219.99 | | Orthopedic Stainless Steel | | Hip | | | | / / | | 4.5-7.3mm Screw Nonsterile - | | | | | | | | [id number]: Qty: 2 on | | | | | | | | 06/03/2018 by Working, | | | | | | | | Nguyễn Chance MD at [facility] | | | | | | | | INPATIENT REV LOC | | | | | | | + +------+--------+ +--------+--------+--------+ | Screw Bone 6.5mm 160mm | | Left: | [employer] | | | 208.48 | | Stainless Steel Full Thread | | Hip | | | | 5 / / | | Orthopedic Cannulated | | | | | | | | Nonsterile - | | | | | | | | [id number]: Qty: 1 on | | | | | | | | 06/03/2018 by Working, | | | | | | | | Nguyễn Chance MD at [facility] | | | | | | | [...] /[id number] | | Nguyễn Chance MD at [facility] | | | | | | 02 [...] +--------+ | [employer] MEDICARE | MODA | xxxxxxxxx | 05/21/19 | [phone] | [address] | Medica | | | MEDICA | | 17[address] | 4 | [address] | re | | | RE HMO | | sent | | [place], | | | | | | | | [place] [address] | | + +--------+ +--------+ + +--------+ + +--------+ +--------+ + + | Guarantor Name | Accoun | Relation to | Date | Phone | Billing Address | | | t Type | Patient | of | | | | | | | | | | + +--------+ +--------+ + + | William Burns | Person | Self | [birth year] | [address] | | | al/Fam | | 1935 | [phone] | [place] [address] | | | michelle | | | [...]
--- OUTSIDE RECORDS SUMMARY | ~2019-11-28 | XMS | Encounter Summary ---
Demographics + + + | Address | [address] | | | [place] [address] | + + + | Home Phone | | + + + | Preferred Language | Unknown | + + + | Marital Status | | + + + | Catholic Affiliation | Unknown | + + + | Race | Unknown | + + + | Ethnic Group | Unknown | + + + Author + + + | Author | [facility] | | | and [place] | + + + | Organization | [facility] | | | [...] Team Providers + +------+ + | Care Foreign Exchange Student Coordinator Name | Role | Phone | + +------+ + | Herlinda Maldonado | PCP | | | PA | | | + +------+ + Reason for Visit + +--------+ + | Reason | Onset | Comments | | | Date | | + +--------+ + | Care Coordination | 07/26/ | | | | 2018 | | + +--------+ + Encounter Details +--------+ + + + + | Date | Type | Department | Care Team | Description | +--------+ + + + + | 07/26/ | Telephone | [facility] | Jamey Hdz | Care Coordination | | 2018 | | GASTROENTEROLOGY | MD Sarkis [address] | | | | | [address] | [address] [facility] | | | | | [address], [place] | [place] [address] | | | | | [address] | [phone] | | | | | [phone] | | | +--------+ + + + [...] this encounter Miscellaneous Notes Telephone Encounter - Jamey Hdz MD - 07/26/2017 3:[address] Star cole, the patient's general surgeon in [place]. Dr. Neumann is requesting an ERCP for bilia ry stent removal. He performed a cholecystectomy and the intraoperative cholangiogram revea led some debris in the common bile duct. There is otherwise good drainage of bile through t he stent. The patient was reportedly in relatively good health for his age. We'll go ahead and get h im scheduled for an ERCP for stent removal.Electronically signed by MD glenroy Fagan 07/26/2017 3:06 PM PSTdocumented in this encounter Plan of Treatment Not on filedocumented as of this encounter Visit Diagnoses Not on filedocumented in this encounter"
--- OUTSIDE RECORDS SUMMARY | ~2019-11-28 | XMS | Encounter Summary ---
Demographics + + + | Address | [address] | | | [place] [address] | + + + | Home Phone | | + + + | Preferred Language | Unknown | + + + | Marital Status | | + + + | Denominational Affiliation | Unknown | + + + | Race | Unknown | + + + | Ethnic Group | Unknown | + + + Author + + + | Author | [facility] | | | and [place] | + + + | Organization | [facility] | | | and [...] Team Providers + +------+ + | Care Assistant Professor Of History Name | Role | Phone | + +------+ + | Herlinda Maldonado | PCP | | | PA | | | + +------+ + Encounter Details +--------+ + + + + | Date | Type | Department | Care Team | Description | +--------+ + + + + | 08/08/ | Episode | [facility] | Alisa Silvestre | | | 2018 | Changes | GASTROENTEROLOGY | L, RN | | | | | [address] | | | | | | [address] | | | | | | [address] | | | | | | [phone] | | | +--------+ + + + + Social History + +-------+ +--------+ + | Tobacco Use | Types | Packs/Day | Years | Date | | | | | Used | | + +-------+ +--------+ + | Former Smoker | | 3 | | Started: 1950 | + +-------+ +--------+ + + +---+---+---+ | Smokeless Tobacco: [...]
--- OUTSIDE RECORDS SUMMARY | ~2019-11-28 | XMS | Encounter Summary ---
Demographics + + + | Address | [address] | | | [place] [address] | + + + | Home Phone | | + + + | Preferred Language | Unknown | + + + | Marital Status | | + + + | Scientology Affiliation | NON | + + + | Race | White | + + + | Ethnic Group | Not or | + + + Author + + + | Author | [facility] | + + + | Organization | [facility] | + + + | Address | Unknown | + + + | Phone | Unavailable | + + + Support + + +---------+ + | Name | Relationship | Address | Phone | + + +---------+ + | None Per Pt | ECON | Unknown | Unavailable | + + +---------+ + Care Team Providers + +------+ + | Care Discovery Manager Name | Role | Phone | + +------+ + | Herlinda Maldonado | PCP | | + +------+ + Encounter Details +--------+ + + + + | Date | Type | Department | Care Team | Description | +--------+ + + + + | 06/26/ | Procedure | 6A Intra Op 3181 | | | | 2018 | Pass | [address] | | | | | | [facility] | | | | | | Hospital Admitting | | | | | | Desk Located on the | | | | | | 9th floor | | | | | | [place], [place] | | | | | | [address] | | | +--------+ + + + [...]
--- OUTSIDE RECORDS SUMMARY | ~2019-11-28 | XMS | Encounter Summary ---
Demographics + + + | Address | [address] | | | [place] [address] | + + + | Home Phone | | + + + | Preferred Language | Unknown | + + + | Marital Status | | + + + | Yazidi Affiliation | NON | + + + | Race | White | + + + | Ethnic Group | Not or | + + + Author + + + | Author | [facility] | + + + | Organization | [facility] | + + + | Address | Unknown | + + + | Phone | Unavailable | + + + Support + + +---------+ + | Name | Relationship | Address | Phone | + + +---------+ + | None Per Pt | ECON | Unknown | Unavailable | + + +---------+ + Care Team Providers + +------+ + | Care Bilingual Receptionist Name | Role | Phone | + [...] + + + + | 06/26/ | Anesthesia | 6A Intra Op 3181 | Bob Noble, | | | 2018 | Event | [address] | [address] | | | | | [facility] | [facility] | | | | | [facility] | [place], [place] | | | | | Desk Located on the | [address] | | | | | 9th floor | [phone] | | | | | [place], [place] | | | | | | [address] | | | +--------+ + + + + Anesthesia Record + + + + + | Procedure Name | Responsible | Anesthesia Start | Anesthesia Stop Time | | | Anesthesiologist | Time | | + + + + + | ERCP (N/A ) | Bob Noble MD | 06/26/17 1555 | 06/26/17 1705 | + + + + + +----+---+ + + | Da | T | Event | Comment | | te | i | | | | | m | | | | | e | | | +----+---+ + + | 02 | 1 | Eq Check | Anesthesia machine checked Equipment verified | | /0 | 5 | | | | 6/ | 0 | | | | 20 | 0 | | | | 18 | | | | +----+---+ + + | | 1 | Pt. Check | Prior to anesthesia start, pt. Identified, examined, chart | | | 5 | | reviewed, PARQ held, anesthetic plan made or approved by | | | 1 | | attending anesthesiologist. NPO status confirmed as appropriate | | | 3 | | for procedure Preoperative evaluation: unchanged | +----+---+ + + | | 1 | | | | | 5 | | | | | 1 | | | | | 4 | | | +----+---+ + + | | 1 | An Start | | | | 5 | | | | | 5 | | | | | 5 | | | +----+---+ + + | | 1 | ICU to OR | signout received from ICU team, patient transported to OR with | | | 5 | | continous monitoring, intubated and ventilated | | | 5 | | | | | 5 | | | +----+---+ + + | | 1 | Art in-situ | | | | 5 | | | | | 5 | | | | | 5 | | | +----+---+ + + | | 1 | CVL in-situ | | | | 5 | | | | | 5 | | | | | 5 | | | +----+---+ + + | | 1 | An Start | | | | 6 | Data | | | | 0 | | | | | 1 | | | +----+---+ + + | | 1 | Vitals | Monitors applied Vital signs checked Patient ready for anesthesia | | | 6 | Checked | | | | 1 | | | | | 1 | | | +----+---+ + + | | 1 | Ready | | | | 6 | | | | | 1 | | | | | 1 | | | +----+---+ + + | | 1 | Abx held | Contraindicated, or not indicated for this procedure, or already | | | 6 | Medical or | receiving antibiotics | | | 1 | Surgical | | | | 1 | Reason | | +----+---+ + + | | 1 | Timeout | | | | 6 | | | | | 1 | | | | | 7 | | | +----+---+ + + | | 1 | Incision | | | | 6 | | | | | 1 | | | | | 7 | | | +----+---+ + + | | 1 | Medication | Midazolam Fentanyl 250mcg Hydromorphone Morphine Ketamine | | | 6 | Handoff | Alfentanil Remifentanil Sufentanil | | | 3 | | | | | 1 | | | +----+---+ + + | | 1 | Surgery end | | | | 6 | | | | | 3 | | | | | 7 | | | +----+---+ + + | | 1 | OR to | patient transported to ICU with continuos monitoring, intubated | | | 6 | ICU/Handoff | and ventilated, signout given to ICU team | | | 4 | | | | | 7 | | | +----+---+ + + | | 1 | an stop | | | | 6 | data | | | | 4 | | | | | 7 | | | +----+---+ + + | | 1 | ICU Handoff | Procedure Anesthetic Brief History Relevant | | | 6 | Call | Meds/Labs/Echo/Imaging Difficult airway? Intraoperative Course: | | | 4 | | Lines/drains EBL Significant Events Meds: Infusions, | | | 7 | | Antibiotics/Redosing, Paralytics (last dose and time), Analgesic | | | | | Plan Central line- will review image and place order in PACU | | | | | Surgeon concerns | +----+---+ + + | | 1 | Anesthesia | | | | 7 | End | | | | 0 | | | | | 5 | | | +----+---+ + + +------+ | Meds | +------+ + + + | Name | Total | + + + | norepinephrine (LEVOPHED) 8mg/250 | 89.96 mcg | | mL (0.032 mg/mL) IV infusion | | | (ADC) | | + + + | piperacillin-tazobactam (ZOSYN) | 0 g | | 3.375 g in NaCl 0.9 % 50 mL IV | | | (ADD-vantage) | | + + + | glucagon | 0.25 mg | + + + | LR | 200 mL | + + + + + | Name | + + | Insp Sevo | + + | Et Sevo | + + | O2 Flow Rate (Total Liters) | + + | Air Flow rate (L/min) | + + + + | No blood administrations on file. | + + +--------+ + + + | Type | Details | Placement | Removal | +--------+ + + + | Urethr | 06/26/17; 09; [facility]; | 06/26/17 09 by | 06/27/17 1100 by | | al | Veena-nita Arriaga; 06/27/17; 1100 | Leonor Peck RN | Lani Chicas RN | | Cathet | | | | | er | | | | +--------+ + + + | Centra | 06/26/17; 0900; Dr. [facility]; | 06/26/17 0900 by | 06/27/17 1403 by | | l Line | Internal Jugular; 06/27/17; 1403 | Leonor Peck RN | Lani Chicas RN | | - | | | | | Triple | | | | | Lumen | | | | +--------+ + + + | Arteri | 06/26/17; 0900; Standard; Right; | 06/26/17 0900 by | 06/27/17917 by | | al | 06/27/17; 917 | Leonor Peck RN | Lani Chicas RN | | Line | | | | +--------+ + + + | Periph | 06/26/17; 0900; EMS; Left; Wrist; | 06/26/17899 by | 06/26/17 1830 by | | eral | 20 g; Negative; 06/26/17; 1830; | Leonor Peck RN | Leoonr Peck RN | | IV | Per protocol | | | +--------+ + + + | ETT | 06/26/17; 0900; Other hospital; | 06/26/17 0900 by | 06/27/17 0830 by | | | 8; Oral; Breath Sounds | Leonor Peck RN | John Parish RN | | | bilaterally; Cuffed; 06/27/17; | | | | | 0830; Per order | | | +--------+ + + + | Feedin | 06/26/17; 1130; Leandra Jon, | 06/26/17 1130 by | 06/26/17 1600 by | | g Tube | RN; Small-bore feeding tube; Left | Leonor Peck RN | Leonor Peck RN | | | Nare; Nare; 06/26/17; 1600; | | | | | (possibly taken out in ERCP) | | | +--------+ + + + documented in this encounter Social History + +-------+ +--------+------+ | Tobacco [...] in this encounter Administered Medications + +--------+ +---------+------+------+ | Medication Order | MAR | Action | Dose | Rate | Site | | | Action | Date | | | | + +--------+ +---------+------+------+ | glucagon (GLUCAGEN) injection | Given | 06/26/19 | 0.25 mg | | | | INTRAPROCEDURE PRN, Starting Tue | | 18 4:25 | | | | | 06/26/17 at 1625, Until 06/26/17 | | PM PST | | | | | at 1647 | | | | | | + +--------+ +---------+------+------+ +---+---+ | | | +---+---+ + + + +---+---+---+ | lactated Ringers IV | given by | 06/26/19 | | | | | INTRAPROCEDURE CONTINUOUS PRN, | | 18 5:01 | | | | | Starting 06/26/17 at 1600, | anesthes | PM PST | | | | | Until 06/26/17 at 1647 | iology | | | | | + + + +---+---+---+ +---------+ +---+---+---+ | New Bag | 06/26/19 | | | | | | 18 4:00 | | | | | | PM PST | | | | +---------+ +---+---+---+ +---+---+ | | | +---+---+ + + + + +-------+---+ | norepinephrine (LEVOPHED) | Rate/Dos | 06/26/19 | 0.02 | 3.24 | | | 8mg/250 mL (0.032 mg/mL) IV | e Verify | 18 8:00 | mcg/kg/m | mL/hr | | | infusion (ADC) 0.02-0.2 | | PM PST | in | | | | mcg/kg/min | | | | | | | 86.5 kg (3.2438-32.4375 mL/hr, | | | | | | | rounded to 3.24-32.44 mL/hr), | | | | | | | intravenous, CONTINUOUS, Starting | | | | | | | 06/26/17 at 1045, Until Wed | | | | | | | 06/27/17 at 0841 | | | | | | + + + + +-------+---+ + + + +-------+---+ | Restarted | 06/26/19 | 0.02 | 3.24 | | | | 18 7:45 | mcg/kg/m | mL/hr | | | | PM PST | in | | | + + + +-------+---+ | Restarted | 06/26/19 | 0.02 | 3.24 | | | | 18 7:10 | mcg/kg/m | mL/hr | | | | PM PST | in | | | + + + +-------+---+ +---+---+ | | | +---+---+ documented in this encounter"
--- OUTSIDE RECORDS SUMMARY | ~2019-11-28 | XMS | Encounter Summary ---
Demographics + + + | Address | [address] | | | [place] [address] | + + + | Home Phone | | + + + | Preferred Language | Unknown | + + + | Marital Status | | + + + | Jainism Affiliation | NON | + + + | Race | White | + + + | Ethnic Group | Not or | + + + Author + + + | Author | [facility] | + + + | Organization | [facility] | + + + | Address | Unknown | + + + | Phone | Unavailable | + + + Support + + +---------+ + | Name | Relationship | Address | Phone | + + +---------+ + | None Per Pt | ECON | Unknown | Unavailable | + + +---------+ + Care Team Providers + +------+ + | Care Historiography Teacher Name | Role | Phone | [...] | | | [place], | [place] [address] | | | | | [place] [address] | [phone] | | | | | [phone] | | | +--------+ + + + [...]
--- OUTSIDE RECORDS SUMMARY | ~2019-11-28 | XMS | Encounter Summary ---
Demographics + + + | Address | [address] | | | [place] [address] | + + + | Home Phone | | + + + | Preferred Language | Unknown | + + + | Marital Status | | + + + | Congregation Affiliation | NON | + + + | Race | White | + + + | Ethnic Group | Not or | + + + Author + + + | Author | [facility] | + + + | Organization | [facility] | + + + | Address | Unknown | + + + | Phone | Unavailable | + + + Support + + +---------+ + | Name | Relationship | Address | Phone | + + +---------+ + | None Per Pt | ECON | Unknown | Unavailable | + + +---------+ + Care Team Providers + +------+ + | Care Intelligence Senior Sergeant Name | Role | Phone | + +------+ + | Herlinda Maldonado | PCP | | + +------+ + Encounter Details +--------+ + + + + | Date | Type | Department | Care Team | Description | +--------+ + + + + | 05/30/ | Telephone | General Internal | Mehran Espinoza DO | | | 2019 | IP | Medicine [address] | | | | | [address] | [address] | | | | | [place], [place] | [place], [place] | | | | | [address] | [address] | | | | | [phone] | [phone] | | | | | | | [...]
--- OUTSIDE RECORDS SUMMARY | ~2019-11-28 | XMS | Encounter Summary ---
Demographics + + + | Address | [address] | | | [place] [address] | + + + | Home Phone | | + + + | Preferred Language | Unknown | + + + | Marital Status | | + + + | Gnosticist Affiliation | NON | + + + [...] Team Providers + +------+ + | Care Telehealth Case Manager Name | Role | Phone | [...] | Transcriptions | + + | Interface, Instrumentation Designer In - 11/26/2005 3:10 AM PDT | | [place] [address] | | [place], [place] [address] | | [facility]Med Rec No.: | | [id number] Date: 06/19/2002Name: Carlos Burns SURGEON: | | Fozia Crawford M.D., Ph.D.ASSISTANTS: Sree Olguin, | | Jerrell Greer M.D.POSTOPERATIVE | | [...] waspatched.Fozia Crawford M.D., PhDJTS:X44D: 06/19/2002T: | | 06/20/[id number] | |lid speculum was placed. Slit light [...] | |JTS:X44 | | | | | |[phone] | + + documented in this encounter Visit Diagnoses Not on filedocumented in this encounter"
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
--- OUTSIDE RECORDS SUMMARY | ~2019-11-28 | XMS | Encounter Summary ---
Demographics + + + | Address | [address] | | | [place] [address] | + + + | Home Phone | | + + + | Preferred Language | Unknown | + + + | Marital Status | | + + + | Buddhist Affiliation | NON | + + + [...] Team Providers + +------+ + | Care Billing Checker Name | Role | Phone | + +------+ + | Herlinda Maldonado | PCP | | + +------+ + Encounter Details +--------+ + + + + | Date | Type | Department | Care Team | Description | +--------+ + + + + | 06/20/ | Documentati | General Internal | Annabella Gallardo DO | | | 2019 | on | Medicine at [facility] | [address] | | | | | [address] | [place], | | | | | [place], | [place] [address] | | | | | [place] [address] | [phone] | | | | | [phone] | | | +--------+ + + + [...]
--- OUTSIDE RECORDS SUMMARY | ~2019-11-28 | XMS | Encounter Summary ---
Demographics + + + | Address | [address] | | | [place] [address] | + + + | Home Phone | | + + + | Preferred Language | Unknown | + + + | Marital Status | | + + + | Hinduism Affiliation | Unknown | + + + | Race | Unknown | + + + | Ethnic Group | Unknown | + + + Author + + + | Author | [facility] | | | and [place] | + + + | Organization | [facility] | | | [...] Team Providers + +------+ + | Care Forestry Hunter Name | Role | Phone | + +------+ + | Herlinda Maldonado | PCP | | | PA | | | + +------+ + Encounter Details +--------+ + + + + | Date | Type | Department | Care Team | Description | +--------+ + + + + | 03/26/ | Hospital | [facility] | Maximilian Abreu | Atrial fibrillation, | | 2019 | Encounter | MED CTR NUCLEAR | MD Jon [address] | unspecified type | | | | MEDICINE [address] [place] | ([facility]); Abnormal EKG | | | | [place], | [place] [address] | | | | | [place] [address] | [phone] | | | | | [phone] | | | +--------+ + + + [...] 84 y.o. PRIMARY CARE: SHAHEEN Toro READING TELEVISION OPERATOR: Salvador Abreu MD, PhD, [facility] 48-HOUR HOLTER MONITOR REPORT DATE: 03/26/2019 [...] 25 cycles on 01:15. 5) There were 31459 Supraventricular beats with 558 couplets and 78 [...] reported. Signed by: Salvador Abreu MD PhD [facility] 03/27/2019, 16:05 documented in t his [...] PRIMARY CARE: | | | SHAHEEN Toro [place] TELEVISION OPERATOR: Salvador Abreu MD, | | | PhD, [facility] 48-HOUR HOLTER MONITOR REPORT DATE: 03/26/2019 [...] 01:15. | | | 5) There were [id number] Supraventricular beats with 558 couplets and | [...] | Signed by: Salvador Abreu MD PhD [facility] 03/27/2019, 16:05 | | + + + + +---------+ + + | Performing | Address | City/State/[facility] | Phone Number | | Organization [...]
--- OUTSIDE RECORDS SUMMARY | ~2019-11-28 | XMS | Encounter Summary ---
Demographics + + + | Address | [address] | | | [place] [address] | + + + | Home Phone [...] + + + | Author | [facility] | + + + | Organization | [facility] | + + + | Address | Unknown | + + + | Phone | Unavailable | + + + Support + + +---------+ + | Name | Relationship | Address | Phone | + + +---------+ + | None Per Pt | ECON | Unknown | Unavailable | + + +---------+ + Care Team Providers + +------+ + | Care Candle Making Supervisor Name | Role | Phone | [...] 07/18/ | Abstract | [facility] | Lyla Mendoza | Outside Records | | 2018 | | Center at [facility] | MD Rashida [address] [facility] | Received (07/16/2017- | | | | [facility] | [facility] | Current ED | | | | for Health and | [place], [place] | Admission Notes, | | | | [facility], [facility] 2 | [address] | Labs, Imaging | | | | [facility] [place] | [phone] | Reports and Surgery | | | | [address] | | Report with | | | | [phone] | | Pathology- St. | | | | | | [facility]) | +--------+ + + [...]
--- OUTSIDE RECORDS SUMMARY | ~2019-11-28 | XMS | Encounter Summary ---
Demographics + + + | Address | [address] | | | [place] [address] | + + + | Home Phone | | + + + | Preferred Language | Unknown | + + + | Marital Status | | + + + | Samaritan Affiliation | NON | + + + | Race | White | + + + | Ethnic Group | Not or | + + + Author + + + | Author | [facility] | + + + | Organization | [facility] | + + + | [...] Providers + +------+ + | Care Manager In Training Name | Role | Phone | + [...] + + | 05/31/ | Hospital | [facility] [address] | Ashwini Ruggiero MD | | | 2019 - | Encounter | [address] | [address] | | | | | [place], | [facility] [address] | | | 06/06/ | | [place] [address] | [place], [place] | | | 2018 | | [phone] | [address] | | | | | | [phone] | | | | | | | | | | | | Nguyễn Shepard, | | | | | | [address] | | | | | | [facility] [address] | | | | | | [place], [place] | | | | | | [address] | | | | | | [phone] | | | | | | | [...] differe nt from the original. [facility] [place] DEPARTMENT OF ORTHOPAEDICS & REHABILITATION INPATIENT HOSPITAL DISCHARGE SUMMARY & INTERDISCIPLINARY INSTRUCTIONS Patient: William Burns CSN: [id number] Admission Date: 05/31/2018 Discharge Date: 06/06/2018 Attending Physician: Nguyễn Shepard MD PCP: SHAHEEN Love Service: [facility] Orthopaedics & Rehabilitation Diagnoses Principal Final [...] they suspect your wound is infected. Call [facility] Orthopedics first at [phone]. Activity NON Weight bearing on left leg. For approximately 4 weeks to be determined at postoperative clinic visit. Condition on Discharge Stable Follow-Up Appointments ORTHOPEDICS OUTPATIENT CLINIC: Future Appointments Provider Department Dept Phone Center 07/02/2018 1:40 PM Nguyễn Chance Working Orthopaedics at [facility] [phone] Orthopedics PCP: As needed for any medical [...] mg by mouth once daily at bedtime. [facility] Orthopaedic Service Pain Policy At the [...] administration instructions. - Call Orthopedic Clinic at [phone] if any persistent, localized swelling that does [...] and ask for the orthopaedic surgery resident collections director. Additional Post-Op Instructions / What to Expect [...] feel that you will need more, call [phone] during business hours in order to get [...] a SNF "I certify that post-hospital inpatient [facility] facility care is medically necessar y on [...] it has been our pleasure. ELISE Mckeon [facility] Department of Orthopaedics & Rehabilitation [address] [place] [address] Mail Code: OP31 [facility] [address] documented in t his encounter Medications at [...] to have left pelvic fracture, transferred to [facility] Orthopedic Surgery service for surg ical management. [facility] initially consulted for pre-operative evaluation. [...] says he uses sparingly. On arrival to [facility] he was on 4 L NC [...] Sanchez MD Attending Physician Clinical Hospitalist Services [facility] Pager [phone] Please call or page me with any questions or concerns. Doe Newman MD - 06/06/2018 9:11 AM PST Orthopaedic Surgery Progress Note Patient: /Age: MRN: CSN: Date: Admission Date: Hospital Day: Orthopaedic Attending: William Burns 1935 83 y.o. [id number] 06/06/2018 05/31/2018 6 Nguyễn Shepard MD Diagnosis: [...] to [facility] with ORTHO TRAUMA & [...] to have left pelvic fracture, transferred to [facility] Orthopedic Surgery service for surg ical management. [facility] initially consulted for pre-operative evaluation. [...] says he uses sparingly. On arrival to [facility] he was on 4 L NC [...] Sanchez MD Attending Physician Clinical Hospitalist Services [facility] Pager [phone] Please call or page me with any questions or concerns. Doe Newman MD - 06/05/2018 7:10 AM PST Orthopaedic Surgery Progress Note Patient: /Age: MRN: CSN: Date: Admission Date: Hospital Day: Orthopaedic Attending: William Burns 1935 83 y.o. [id number] 06/05/2018 05/31/2018 5 Nguyễn hSepard MD Diagnosis: 1. Left anterior column posterior [...] to make a follow up appointment in [facility] 1 weeks with ORTHO TRAUMA & [...] refill < 2 seconds Doe Gongora MD [facility] Department of Orthopaedics & Rehabilitation [address] [place] [address] Mail Code: OP31 [facility] [address] Kg Snider MD - 06/04/2018 10:03 AM [...] to have left pelvic fracture, transferred to [facility] Orthopedic Surgery service for surg ical management. [facility] initially consulted for pre-operative evaluation. [...] says he uses sparingly. On arrival to [facility] he was on 4 L NC [...] Sanchez MD Attending Physician Clinical Hospitalist Services [facility] Pager [phone] Please call or page me with any questions or concerns. Devendra Scales MD - 06/04/2018 7:48 AM PST Orthopaedic Surgery Progress Note Patient: /Age: MRN: CSN: Date: Admission Date: Hospital Day: Orthopaedic Attending: William James Grant 1935 83 y.o. [id number] 06/04/2018 05/31/2018 4 Nguyễn Shepard MD Diagnosis: [...] to make a follow up appointment in [facility] 1 weeks with ORTHO TRAUMA & [...] refill < 2 seconds Doe Gongora MD [facility] Department of Orthopaedics & Rehabilitation [address] [place] [address] Mail Code: OP31 [facility] [address] evendra Da Silva MD - 06/03/2018 8:32 PM PST [facility] DEPARTMENT OF ORTHOPAEDICS & REHABILITATION [...] MD Orthopaedic Surgery Resident 06/03/2018, 8:33 PM [facility] Department of Orthopaedics & Rehabilitation [address] [facility] Mail Code: OP31 [place] [address] Jade Messina MD - 06/02/2018 8:36 AM [...] Please call Orthopaedic Trauma and Fracture at [phone] to schedule a followup within 2 weeks from discharge. ALEXA VICKERS MD Pager: [phone] 06/02/2018 oe Gongora MD - 06/01/2018 8:27 AM PST Orthopaedic Surgery Progress Note Patient: /Age: MRN: CSN: Date: Admission Date: Hospital Day: Orthopaedic Attending: William Burns 1935 83 y.o. [id number] 06/01/2018 05/31/2018 1 Nguyễn Shepard MD Diagnosis: [...] [facility] & [...] seconds Reflexes: not performed Doe Gongora MD [facility] Department of Orthopaedics & Rehabilitation [address] [facility] Mail Code: OP31 Dileep CHAPPELL [id number] documented in this enco unter Plan of [...] | + + + + + | [facility] | [address] | [place] [address] | | | SERVICES, CORE | RICHARD [...] | | | LABORATORY | | | CAMEROONIAN | | | SERVICES, | | | [...] + + + + + | [facility] | [address] | [place] [address] | | | SERVICES, CORE | RICHARD [...] LABORATORY | [address] | [place] [address] | | | SERVICES, CORE | PARK [...] | | | LABORATORY | | | CAMEROONIAN | | | SERVICES, | | | [...] the MDRD equation recommended by the | [facility] | | National Kidney Disease Education [...] | + + + + + | [facility] LABORATORY | [address] [facility] | [place] [address] | | | SERVICES, YOKASTA | RICHARD [...] | + + + + + | [facility] | [address] | [place] [address] | | | SERVICES, CORE | RICHARD [...] | + + + + + | [facility] | [address] | [place] [address] | | | SERVICES, CORE | [address] | | | + + + + + X-RAY PORTABLE 2 VIEW ABDOMEN (KUB AND UPRIGHT) (06/04/2018 2:32 PM PST) + + | Specimen | + + | | + + + + + | Narrative | Performed At | + + + | EXAM: WI 2 VIEW ABDOMEN (KUB AND UPRIGHT) History: [...] Interface - 06/04/2018 4:24 PM PST EXAM: WI 2 VIEW | | ABDOMEN (KUB AND [...] | + + + + + | [facility] | [address] | [place] [address] | | | SERVICES, CORE | RICHARD [...] | + + + + + | [facility] | [address] [facility] | [place] [address] | | | SERVICES, CORE | RICHARD [...] | + + + + + | [facility] | [address] [facility] | [place] [address] | | | SERVICES, CORE | RICHARD [...] | | | LABORATORY | | | CAMEROONIAN | | | SERVICES, | | | [...] | + + + + + | [facility] | [address] [facility] | [place] [address] | | | SERVICES, CORE | RICHARD [...] Note | + + | Service Account, RadiFaction Skis Res In Interface - 06/04/2018 4:42 PM [...] | | + +---------+ + + | [facility] RADIOLOGY | | | | | VOICE RECOGNITION 2 | | | | + +---------+ + + OPERATION RECORD (06/03/2018 4:58 PM PST) + + | Procedure Note | + + | Nguyễn Shepard MD - 06/03/2018 4:58 PM [facility] Date of Service: 06/03/2018 | | Attending Surgeon: Nguyễn Shepard MD Food Safety Specialist(s): Devendra Allen | | MD Avinash. Preoperative [...] He | | was transferred to the [facility]. A sacral bump consisting of 5 [...] problem was referred to my care at [facility] by another | | orthopaedic surgeon. The patient is from the [facility] and traveled many miles to | | get to [facility], bypassing several other hospitals due to [...] 06/03/2018 14:26:09DT: | | 06/03/2018 16:58:33Job #: [id number] | + + MAGNESIUM, PLASMA (06/03/2018 4:37 [...] [facility] | [address] | [place] [address] | | | SERVICES, CORE | PARK [...] OF | [address] | [place], [place] | | | CARDIOLOGY | [address] | [address] | | + + + + + [...] [facility] | [address] | [place], [place] | | | DILAN TURNER OF CARE | [address] | [address] | | | TESTS | | | [...] [facility] | [address] | [place], [place] | | | DILAN TURNER OF CARE | [address] | [address] | | | TESTS | | | [...] | + + + + + | [facility] | [address] | [place] [address] | | | SERVICES, YOKASTA | RICHARD [...] | | | LABORATORY | | | CAMEROONIAN | | | SERVICES, | | | [...] | + + + + + | [facility] | [address] | [place] [address] | | | SERVICES, CORE | RICHARD [...] | + + + + + | [facility] DEPT OF | [address] | [place], [place] | | | CARDIOLOGY | [address] | [address] | | + + + + + [...] LABORATORY | [address] | [place] [address] | | | SERVICES, CORE | PARK [...] LABORATORY | [address] | [place] [address] | | | SERVICES, CORE | PARK [...] | | | LABORATORY | | | CAMEROONIAN | | | SERVICES, | | | [...] | + + + + + | [facility] [employer] | [address] | [place] [address] | | | SERVICES, CORE | RICHARD [...] LABORATORY | [address] | [place] [address] | | | SERVICES, | [address] [...] | + + + + + | [facility] | [address] | [place] [address] | | | SERVICES, | [address] [...] | + + + + + | [facility] LABORATORY | [address] | [place] [address] | | | SERVICES, CORE | [address] | | | + + + + + X-RAY KNEE 2 VIEWS LEFT (06/01/2018 11:48 AM PST) + + | Specimen | + + | | + + + + + | Narrative | Performed At | + + + | EXAM: KNEE 2 VIEWS LEFT HISTORY: eval traction pin placement | [facility] | | COMPARISON: None. FINDINGS/IMPRESSION: Interval placement [...] LABORATORY | [address] | [place] [address] | | | SERVICES, CORE | PARK [...] | | | LABORATORY | | | CAMEROONIAN | | | SERVICES, | | | [...] the MDRD equation recommended by the | [facility] | | National Kidney Disease Education [...] | + + + + + | [facility] | [address] | [place] [address] | | | SERVICES, CORE | RICHARD [...] Note | + + | Service Account, Table8 Res In Interface - 06/01/2018 9:25 AM [...] | + + + + + | [facility] | [address] | [place] [address] | | | SERVICES, CORE | RICHARD [...] | | | LABORATORY | | | CAMEROONIAN | | | SERVICES, | | | [...] | + + + + + | [facility] | [address] | [place] [address] | | | SERVICES, CORE | [address]ICHARD [...]
--- OUTSIDE RECORDS SUMMARY | ~2019-11-28 | XMS | Encounter Summary ---
Demographics + + + | Address | [address] | | | [place] [address] | + + + | Home Phone | | + + + | Preferred Language | Unknown | + + + | Marital Status | | + + + | Methodist Affiliation | NON | + + + | Race | White | + + + | Ethnic Group | Not or | + + + Author + + + | Author | [facility] | + + + | Organization | [facility] | + + + | Address | Unknown | + + + | Phone | Unavailable | + + + Support + + +---------+ + | Name | Relationship | Address | Phone | + + +---------+ + | None Per Pt | ECON | Unknown | Unavailable | + + +---------+ + Care Team Providers + +------+ + | Care Planning And Analysis Manager Name | Role | Phone | [...] | | | | | [place], | [place], [place] | | | | | [place] [address] | [address] | | | | | [phone] | [phone] | | | | | | | [...] PT other exercises he can practice, given [id number] status # Insomnia, sleep-onset - Sleep hygiene: [...] foll owing additions/clarifications/exceptions: none Crystal Evans MD [facility] Division of Internal Medicine and Geriatrics documented in this encounter Plan of Treatment Not on filedocumented as of this encounter Visit Diagnoses Not on filedocumented in this encounter
--- OUTSIDE RECORDS SUMMARY | ~2019-11-28 | XMS | Clinical Summary ---
Demographics + + + | Address | [address] | | | [place] [address] | + + + | Home Phone [...] + + | Author | [facility] | + + + | Organization | [facility] | + + + | Address | Unknown | + + + | Phone | Unavailable | + + + Support + + +---------+ + | Name | Relationship | Address | Phone | + + +---------+ + | None Per Pt | ECON | Unknown | Unavailable | + + +---------+ + Care Team Providers + +------+ + | Care Surveyor Geodetic Name | Role | Phone | + +------+ + | Herlinda Maldonado | PCP | | + +------+ + Source Comments [facility]INA is fully live on both [facility] InPatient.[facility] Allergies + + + + + [...] | | | | 88 | | [facility] INPATIENT REV LOC | | | | | | | + +------+--------+ +--------+--------+--------+ | Washer 13mm 6.6mm Lcp | | Left: | [employer] | | | 219.99 | | Orthopedic Stainless Steel | | Hip | | | | / / | | 4.5-7.3mm Screw Nonsterile - | | | | | | | | [id number]: Qty: 2 on | | | | | | | | 06/03/2018 by Working, | | | | | | | | Nguyễn Chance MD at [facility] | | | | | | | | INPATIENT REV LOC | | | | | | | + +------+--------+ +--------+--------+--------+ | Screw Bone 6.5mm 160mm | | Left: | [employer] | | | 208.48 | | Stainless Steel Full Thread | | Hip | | | | 5 / / | | Orthopedic Cannulated | | | | | | | | Nonsterile - | | | | | | | | [id number]: Qty: 1 on | | | | | | | | 06/03/2018 by Working, | | | | | | | | Nguyễn Chance MD at [facility] | | | | | [...] /[id number] | | Nguyễn Chance MD at [facility] | | | | | [...] RE HMO | | sent | | [place], | | | | | | | | [place] [address] | | + +--------+ +--------+ + +--------+ + +--------+ +--------+ + + | Guarantor Name | Accoun | Relation to | Date | Phone | Billing Address | | | t Type | Patient | of | | | | | | | | | | + +--------+ +--------+ + + | William Burns | Person | Self | [birth year] | [address] | | | al/Fam | | 1935 | [phone] | [place] [address] | | | michelle | | | [...]
--- OUTSIDE RECORDS SUMMARY | ~2019-11-28 | XMS | Encounter Summary ---
Demographics + + + | Address | [address] | | | [place] [address] | + + + | Home Phone | | + + + | Preferred Language | Unknown | + + + | Marital Status | | + + + | Sikh Affiliation | Unknown | + + + [...] Team Providers + +------+ + | Care Carpenter Packing Name | Role | Phone | + [...] | | | | | | | DC ERCP DX | | | | | | | COLLECTION | | | | | | | SPECIMEN | | | | | | | BRUSHING/WAS | | | | | | | JOSE DC | | | | | | | ERCP | | | | | | | BILIARY/PANC | | | | | | | DUCT STENT | | | | | | | EXCHANGE | | | | | | | W/DIL&WIRE | | | | | | | DC | | | | | | | [...] + + | 08/14/ | Hospital | [facility] | Jamey Penny | Encounter for | | 2018 | Encounter | MED CTR OR INTRA OP | MD Sarkis [address] | removal of biliary | | | | [address] | [address] [place] | stent; Calculus of | | | | [place], [place] | [place] [address] | bile duct with acute | | | | [address] | [phone] | cholecystitis and | | | | [phone] | | obstruction | +--------+ + + [...] of ascending cholangitis and sepsis, treated at [facility]. Had ERCP with sphin cterotomy, stone extraction, and stent placement on 06/26/17. He underwent cholecystectomy in [place] and on the IOC there were possible distal CBD filling defects. Pt reports that he feels well. Denies any abdominal pain presently. PAST HISTORY: Past Medical History: Diagnosis Date Atrial fibrillation (HCC) Backache Bronchitis Bundle branch block, right Calculus of bile duct with acute cholecystitis with obstruction Choledocholithiasis Chronic obstructive pulmonary disease (COPD) ([facility]) Crush injury lower extremities 1966 Left [...] BACK SURGERY 1981 Lower back COLONOSCOPY 09/23/2013 [facility] ENDOSCOPY 08/10/2013 [facility] HIP FRACTURE SURGERY Left 2002 Pinning. Repeat in 2003 INGUINAL HERNIA REPAIR 2007 KNEE SURGERY 1968 KNEE SURGERY Right 1967 Open fracture reduction and internal fixation right knee in 1967 LAMINECTOMY Leg surgery Left 1959 Seven Reconstructive surgeries on his left leg and foot in the s with metal remaining . LUMBAR VERTEBRAL FUSION OTHER SURGICAL HISTORY Endobiliary stent placed at [facility] Removal of lesion Right 2010 Right [...] Class 2 (upper half of tonsil fossa) [place] Society of Anesthesia Grade:ASA 2 - A [...] Electronically Signed by: Jamey Penny MD 08/14/2017 [facility] VERIFICATION OF CONSENT (PARQ) The patient was counseled regarding the procedure, its indications, risks, potential compli cations and alternatives. Any questions were answered. Consent was obtained. Jamey Penny MD, 08/14/2017 12:59 [facility] Portions of this chart may have been created with [employer] (formerly [employer]) voice recognition software. Occasi onal wrong-word or [...] INSTRUCTIONS Patient: William Burns : 1935 Acct: [id number] Exam Date: Monday, August 14, 2017 Doctor: [...] 1 day. Avoiding fatty foods such as [place], hamburgers, k[place], ham and pork products, will [...] + + | Performing | Address | City/State[facility] | Phone Number | | Organization [...] 08/14/2017 | [place] | | 12:57 PMMRN: [id number] #: [id number] of : | | | 5Admit Type: AmbulatoryAge: 82Room: [facility] 02Gender: MaleNote | | | Status: FinalizedAttending MD: JAMEY PENNY , [facility] | | | ERCPIndications: Bile duct stone(s), Biliary stent | | | removalProviders: JAMEY PENNY MD, Kiah Orozco, | | | RN, Klaus Loco, RAYRAY, Vani Wisdom, | | | Director Of Informatics, Yinka Dominguez MD | | | (Anesthesia [...] the procedure well.Findings: A | | | floral decorator film of the abdomen was obtained. Surgical [...] | | was it seen on the floral decorator image. - Several filling defects | | [...] PMScope Out: | | | 1:58:46 PM [facility], [address] [place] [address], | | | [place] [address] | | | - KUB today to [...] |Scope Out: 1:58:46 PM | | | [facility], [facility] [address] [facility], [place], [place] | | | [address] | | + + -+ + +---------+ [...] | | | Anticoagulation Range: | | [facility] | | | | 2.0 - [...] + | [facility] | [address] | [place] | [phone] | | [facility] | | [address] | | | - LABORATORY | | [...] | | | | | mg/dL | [facility] | | | | | | MEDICAL | | | | | | CENTER - | | | | | | LABORATORY | | + + + + + + | eGFR if not | >60Comment: GLOMERULAR | >=60 | [facility] | | | | FILTRATION | mL/min/1.73m2 | [facility] | | | SAUDI ARABIAN | RATE,ESTIMATED | | MEDICAL | | | | mL/min/1.74f7Jlcb than | | CENTER - | | [...] | | | | | mg/dL | [facility] | | | | | | MEDICAL | | | | | | CENTER - | | | | | | LABORATORY | | + + + + + + | Albumin | 4.0 | 3.2 - 5.0 g/dL | [facility] | | | | | | [facility] | | | | | | [...] | | Protein | | | [facility] | | [...] | ine Ratio | | | [facility] | | [...] + + | [facility] | [address] | [place] | [phone] | | [facility] | | [address] | | | - LABORATORY | | [...] | | | | | g/dL | [facility] | | | | [...] + + + + + | [facility] | [address] | [place] | [phone] | | [facility] | | [address] | | | - LABORATORY | | [...]
--- OUTSIDE RECORDS SUMMARY | ~2019-11-28 | XMS | Encounter Summary ---
Demographics + + + | Address | [address] | | | [place] [address] | + + + | Home Phone | | + + + | Preferred Language | Unknown | + + + | Marital Status | | + + + | Church Affiliation | Unknown | + + + | Race | Unknown | + + + | Ethnic Group | Unknown | + + + Author + + + | Author | [facility] | | | and [place] | + + + | Organization | [facility] | | | [...] Team Providers + +------+ + | Care Lawyer Real Estate Name | Role | Phone | + [...] | | | | | | | [place] ERCP DX | | | | | | | COLLECTION | | | | | | | SPECIMEN | | | | | | | BRUSHING/WAS | | | | | | | JOSE [place] | | | | | | | ERCP | | | | | | | BILIARY/PANC | | | | | | | DUCT STENT | | | | | | | EXCHANGE | | | | | | | W/DIL&WIRE | | | | | | | [place] | | | | | | | [...] | | | | | [address] | [address] [place], [place] | | | | | [place], [place] | [address] | | | | | [address] | [phone] | | | | | [phone] | | | +--------+ + + + [...] [address] | | tomil | tkav-pnr-bayagv catheter system; | Precious Remy RN | [...] EVALUATION William Burns 82 y.o. male 1935 [id number] Procedure(s) ERCP (N/A Mouth) Cooperates? Yes Mental [...] signed by Tono Dominguez MD 08/14/2017 18:40 [facility] nesthesia Procedure Notes - Tono Dominguez MD [...] EVALUATION William Burns 82 y.o. male 1935 [id number] Procedure(s): ERCP (N/A Mouth) Review of Systems [...]
--- OUTSIDE RECORDS SUMMARY | ~2019-11-28 | XMS | Encounter Summary ---
Demographics + + + | Address | [address] | | | [place] [address] | + + + | Home Phone [...] Providers + +------+ + | Care Supervisor Logging Name | Role | Phone | + [...] | Transcriptions | + + | Interface, Digital Tech In - 11/26/2005 3:10 AM PDT | | [place] [address] | | [place], [place] [address] | | [facility] CenterOPERATION RECORDMed Rec No.: | | [...] waspatched.Fozia Crawford M.D., PhDJTS:X44D: 06/19/2002T: | | 06/20/[id number] | |lid speculum was placed. Slit light [...] | |JTS:X44 | | | | | |[id number] | + + documented in this encounter Visit Diagnoses Not on filedocumented in this encounter"
--- OUTSIDE RECORDS SUMMARY | ~2019-11-28 | XMS | Encounter Summary ---
Demographics + + + | Address | [address] | | | [place] [address] | + + + | Home Phone | | + + + | Preferred Language | Unknown | + + + | Marital Status | | + + + | Confucianist Affiliation | NON | + + + [...] Team Providers + +------+ + | Care Jewelry Estimator Name | Role | Phone | + [...] | Transcriptions | + + | Interface, Counterintelligence Agent In - 11/26/2005 3:10 AM PDT | | [place] [address] | | [place], [place] [address] | | [facility] RECORDMed Rec No.: | | [id number] Date: 07/14/2002Name: Carlos Burns SURGEON: | | Fozia Crawford M.D., Ph.D.CHAINSTITCH SEAT JOINER: Med | | Jerrell GuPREOPERATIVE DIAGNOSIS:Rhegmatogenous retinal [...] | | Jun Crawford M.D., Ph.D.JS:x54D: 07/14/2002T: 07/16/[id number] | |attention was directed towards the right [...] | |JS:x54 | | | | | |[phone] | + + documented in this encounter Visit Diagnoses Not on filedocumented in this encounter"
--- OUTSIDE RECORDS SUMMARY | ~2019-11-28 | XMS | Encounter Summary ---
Demographics + + + | Address | [address] | | | [place] [address] | + + + | Home Phone [...] Team Providers + +------+ + | Care Radio Control Crane Operator Name | Role | Phone | + +------+ + | Herlinda Maldonado | PCP | | + +------+ + Encounter Details +--------+ + + + + | Date | Type | Department | Care Team | Description | +--------+ + + + + | 06/28/ | Document-Sc | Health Information | Other, Faculty | | | 2018 | anned | Services [address] | [phone] | | | | | [address] | | | | | | Mailcode: OP17A | | | | | | [facility] | | | | | | [place], [place] | | | | | | [address] | | | | | | [phone] | | | +--------+ + + + [...]
--- OUTSIDE RECORDS SUMMARY | ~2019-11-28 | XMS | Encounter Summary ---
Demographics + + + | Address | [address] | | | [place] [address] | + + + | Home Phone | | + + + | Preferred Language | Unknown | + + + | Marital Status | | + + + | Holiness Affiliation | NON | + + + | Race | White | + + + | Ethnic Group | Not or | + + + Author + + + | Author | [facility] | + + + | Organization | [facility] | + + [...] Providers + +------+ + | Care Supervisor Accounting Clerks Name | Role | Phone | + [...] fixation of | | | | Rd [facility] | [address] | acetabular | | | | Hospital Admitting | [place], [place] | lesly-prosthetic | | | | Desk Located on the | [address] | fracture | | | | 9th floor | [phone] | | | | | [place], [place] | | | | | | [address] | | | +--------+---------+ + + + [...] differe nt from the original. [facility] DEPARTMENT OF ORTHOPAEDICS & REHABILITATION INPATIENT HOSPITAL DISCHARGE SUMMARY & INTERDISCIPLINARY INSTRUCTIONS Patient: William Burns CSN: [id number] Admission Date: 05/31/2018 Discharge Date: 06/06/2018 Attending Physician: Nguyễn Shepard MD PCP: SHAHEEN Love Service: [facility] Orthopaedics & Rehabilitation Diagnoses Principal Final Diagnosis: Left anterior column posterior hemitransverse acetabular fracture (involving 2 columns). Additional Diagnoses: COPD (chronic obstructive pulmonary disease) ([facility]) Essential hypertension Physical deconditioning Procedures 06/03/2018 Closed [...] they suspect your wound is infected. Call [facility] Orthopedics first at [phone]. Activity NON Weight bearing on left leg. For approximately 4 weeks to be determined at postoperative clinic visit. Condition on Discharge Stable Follow-Up Appointments ORTHOPEDICS OUTPATIENT CLINIC: Future Appointments Provider Department Dept Phone Center 07/02/2018 1:40 PM Nguyễn Chance Working Orthopaedics at [facility] [phone] Orthopedics PCP: As needed for any medical [...] mg by mouth once daily at bedtime. [facility] Orthopaedic Service Pain Policy At the [...] administration instructions. - Call Orthopedic Clinic at [phone] if any persistent, localized swelling that does [...] and ask for the orthopaedic surgery resident field operations technician. Additional Post-Op Instructions / What to Expect [...] feel that you will need more, call [phone] during business hours in order to get [...] Condition on Discharge: Improved Discharging Patient To: Half-Way Facility Date and Time of Discharge Summary Completion: 06/07/2018, 2:45 PM Discharging Provider: ELISE Mckeon Discharging Attending: Nguyễn Shepard MD Thank you for the opportunity to take care of William Burns during this inpatient stay, it has been our pleasure. ELISE Mckeon [facility] [employer] [facility] Department of Orthopaedics & Rehabilitation [address] Mail Code: OP31 [place] [id number] documented in t his encounter Medications at [...] to have left pelvic fracture, transferred to [facility] Orthopedic Surgery service for surg ical management. [facility] initially consulted for pre-operative evaluation. [...] says he uses sparingly. On arrival to [facility] he was on 4 L NC [...] Sanchez MD Attending Physician Clinical Hospitalist Services [facility] Pager [phone] Please call or page me with any questions or concerns. Doe Newman MD - 06/06/2018 9:11 AM PST Orthopaedic Surgery Progress Note Patient: /Age: MRN: CSN: Date: Admission Date: Hospital Day: Orthopaedic Attending: William Burns 1935 83 y.o. [id number] 06/06/2018 05/31/2018 6 Nguyễn Shepard MD Diagnosis: [...] to have left pelvic fracture, transferred to [facility] Orthopedic Surgery service for surg ical management. [facility] initially consulted for pre-operative evaluation. [...] says he uses sparingly. On arrival to [facility] he was on 4 L NC [...] Sanchez MD Attending Physician Clinical Hospitalist Services [facility] Pager [phone] Please call or page me with any questions or concerns. Doe Newman MD - 06/05/2018 7:10 AM PST Orthopaedic Surgery Progress Note Patient: /Age: MRN: CSN: Date: Admission Date: Hospital Day: Orthopaedic Attending: William Burns 1935 83 y.o. [id number] 06/05/2018 05/31/2018 5 Nguyễn Shepard MD Diagnosis: [...] refill < 2 seconds Doe Gongora MD [facility] Department of Orthopaedics & Rehabilitation [address] [place] [address] Mail Code: OP31 [facility] [address] Kg Snider MD - 06/04/2018 10:03 AM [...] to have left pelvic fracture, transferred to [facility] Orthopedic Surgery service for surg ical management. [facility] initially consulted for pre-operative evaluation. [...] says he uses sparingly. On arrival to [facility] he was on 4 L NC [...] Sanchez MD Attending Physician Clinical Hospitalist Services [facility] Pager [phone] Please call or page me with any questions or concerns. Devendra Scales MD - 06/04/2018 7:48 AM PST Orthopaedic Surgery Progress Note Patient: /Age: MRN: CSN: Date: Admission Date: Hospital Day: Orthopaedic Attending: William Burns 1935 83 y.o. [id number] 06/04/2018 05/31/2018 4 Nguyễn Shepard MD Diagnosis: [...] [facility] & [...] refill < 2 seconds Doe Gongora MD [facility] Department of Orthopaedics & Rehabilitation [address] [place] [address] Mail Code: OP31 [facility] [address] Yordy, Devendra Allen MD - 06/03/2018 8:32 PM PST [facility] DEPARTMENT OF ORTHOPAEDICS & REHABILITATION POST-OPERATIVE [...] MD Orthopaedic Surgery Resident 06/03/2018, 8:33 PM [facility] Department of Orthopaedics & Rehabilitation [address] Mail Code: OP31 [place] [address] Jade Messina MD - 06/02/2018 8:36 AM [...] Please call Orthopaedic Trauma and Fracture at [phone] to schedule a followup within 2 weeks from discharge. ALEXA VICKERS MD Pager: [phone] 06/02/2018 Doe Newman MD - 06/01/2018 8:27 AM PST Orthopaedic Surgery Progress Note Patient: /Age: MRN: CSN: Date: Admission Date: Hospital Day: Orthopaedic Attending: William Ramirez Grant 1935 83 y.o. [id number] 06/01/2018 05/31/2018 1 Nguyễn Shepard MD Diagnosis: [...] [facility] ORTHO [facility] & FRACTURE, [...] seconds Reflexes: not performed Doe Gongora MD [facility] Department of Orthopaedics & Rehabilitation [address] Mail Code: OP31 Dileep [place] [id number] documented in this enco unter Plan of [...] | + + + + + | [employer] | [address] | [place] [address] | | | SERVICES, CORE | RICHARD [...] | | | LABORATORY | | | [place] | | | SERVICES, | | | [...] + + + + | [facility] | [address] | [place] [address] | | | SERVICES, CORE | RICHARD [...] LABORATORY | [address] | [place] [address] | | | SERVICES, CORE | PARK [...] | | | LABORATORY | | | [place] | | | SERVICES, | | | [...] | + + + + + | [facility] | [address] | [place] [address] | | | SARA, YOKASTA | RICHARD [...] | + + + + + | [facility] | [address] | [place] [address] | | | SERVICES, CORE | PARK [...] | + + + + + | [facility] | [address] | [place] [address] | | | SERVICES, CORE | RICHARD [...] Note | + + | Service Account, [employer] Res In Interface - 06/04/2018 4:24 PM [...] | + + + + + | [employer] | [address] | [place] [address] | | | SERVICES, CORE | RICHARD [...] | + + + + + | [facility] | [address] | [place] [address] | | | SERVICES, CORE | PARK [...] | + + + + + | [facility] | [address] | [place] [address] | | | SERVICES, CORE | RICHARD [...] | | | LABORATORY | | | [place] | | | SERVICES, | | | [...] | + + + + + | [employer] | [address] | [place] [address] | | | SERVICES, CORE | RICHARD [...] | | | 4:41 PM Preliminary: Venu Josih MD 06/04/2018 9:02 AM Dictation | | [...] | | Attending Surgeon: Nguyễn Shepard MD Production Line Welder(s): Devendra Allen | | MD Avinash. Preoperative [...] He | | was transferred to the [facility]. A sacral bump consisting of 5 squared [...] problem was referred to my care at [facility] by another | | orthopaedic surgeon. The patient is from the [facility] and traveled many miles to | | get to [facility], bypassing several other hospitals due to [...] 06/03/2018 14:26:09DT: | | 06/03/2018 16:58:33Job #: [id number] | + + MAGNESIUM, PLASMA (06/03/2018 4:37 [...] | + + + + + | [facility] | [address] | [place] [address] | | | SERVICES, CORE | RICHARD [...] OF | [address] | [place], [place] | | | CARDIOLOGY | [address] | [address] | | + + + + + [...] [facility] | [address] | [place], [place] | | | [facility] | [address] | [address] | | | TESTS | | | [...] MAR[facility] | [address] | [place], [place] | | | [facility] | [address] | [address] | | | TESTS | | | [...] | + + + + + | [facility] | [address] | [place] [address] | | | SERVICES, CORE | RICHARD [...] | | | LABORATORY | | | [place] | | | SERVICES, | | | [...] | + + + + + | [facility] | [address] | [place] [address] | | | SERVICES, CORE | RICHARD [...] OF | [address] | [place], [place] | | | CARDIOLOGY | [address] | [address] | | + + + + + [...] LABORATORY | [address] | [place] [address] | | | SERVICES, CORE | PARK [...] | + + + + + | [facility] | [address] | [place] [address] | | | SERVICES, CORE | RICHARD [...] | | | LABORATORY | | | [place] | | | SERVICES, | | | [...] | + + + + + | [facility] [employer] | [address] | [place] [address] | | | SERVICES, CORE | PARK [...] LABORATORY | [address] | [place] [address] | | | SERVICES, | [address] [...] | + + + + + | [facility] | [address] | [place] [address] | | | SERVICES, | [address] [...] | + + + + + | [facility] | [address] | [place] [address] | | | SERVICES, YOKASTA | [address] | | | + + + + + X-RAY KNEE 2 VIEWS LEFT (06/01/2018 11:48 AM PST) + + | Specimen | + + | | + + + + + | Narrative | Performed At | + + + | EXAM: KNEE 2 VIEWS LEFT HISTORY: eval traction pin placement | [facility] | | COMPARISON: None. FINDINGS/IMPRESSION: Interval [...] | + + + + + | [facility] | [address] | [place] [address] | | | SERVICES, CORE | RICHARD [...] | | | LABORATORY | | | [place] | | | SERVICES, | | | [...] | + + + + + | [facility] | [address] | [place] [address] | | | SERVICES, CORE | RICHARD [...] Note | + + | Service Account, [employer] Res In Interface - 06/01/2018 9:25 AM [...] LABORATORY | [address] | [place] [address] | | | SERVICES, CORE | PARK [...] | | | LABORATORY | | | [place] | | | SERVICES, | | | [...] the MDRD equation recommended by the | [facility] | | National Kidney Disease Education [...] | + + + + + | [facility] | [address] | [place] [address] | | | YOKASTA RUIZ | RICHARD [...] 06/01/18 at | | | 1647, Until [facility] 06/06/18 at [...]
--- OUTSIDE RECORDS SUMMARY | ~2019-11-28 | XMS | Encounter Summary ---
Demographics + + + | Address | [address] | | | [place] [address] | + + + | Home Phone [...] Team Providers + +------+ + | Care Benefits Sales Consultant Name | Role | Phone | + [...] Medication | | 2019 | | at [facility] | [address] | management | | | | [address] | [address] [place] | | | | | Loop Physician's | [place], [place] | | | | | [address], [facility] floor | [address] | | | | | [place], [place] | [phone] | | | | | [address] | | | | | | [phone] | | | +--------+ + + + [...]
--- OUTSIDE RECORDS SUMMARY | ~2019-11-28 | XMS | Encounter Summary ---
Demographics + + + | Address | [address] | | | [place] [address] | + + + | Home Phone [...] Team Providers + +------+ + | Care Fowl Blood Tester Name | Role | Phone | + [...] as of this encounter Progress Notes Interface, Labor Utilization Superintendent In - 11/26/2005 3:10 AM PDT ULTRASOUND [...] Bay M.D. and Waylon Simeon, Ophthalmic Echographer PR / [id number] / [id number] / [id number] / Tdocumented in this encounter Plan of [...] | Transcriptions | + + | Interface, Labor Utilization Superintendent In - 11/26/2005 3:10 AM PDT | [...] andWaylon Simeon, Ophthalmic | | EchographerME / [id number] / [id number] / [id number] / T: 07/17/2002 | |HISTORY: This gentleman [...] | |Durga Bay M.D. and | |Waylon Simoen, Ophthalmic Echographer | | | |PR / HS | |[id number] / [id number] / [id number] / | | | | | + + documented in this encounter Visit Diagnoses Not on filedocumented in this encounter"
--- OUTSIDE RECORDS SUMMARY | ~2019-11-28 | XMS | Encounter Summary ---
Demographics + + + | Address | [address] | | | [place] [address] | + + + | Home Phone | | + + + | Preferred Language | Unknown | + + + | Marital Status | | + + + | Faith Affiliation | Unknown | + + + | Race | Unknown | + + + | Ethnic Group | Unknown | + + + Author + + + | Author | [facility] | | | and [place] | + [...] Providers + +------+ + | Care Senior Android Software Engineer Name | Role | Phone | [...] | | | | CENTER [address] | [place], [place] | complication, | | | | [place], [place] | [address] | initial encounter | | | | [address] | | (Primary Dx); Fall | | | | [phone] | | from slip, trip, or | [...] Care Everywhere.Laceration, Chi n, Suture or Tape (Swedish)documented in this encounter Medications at Time of [...] might be different fr om the original. [facility] Emergency Department Encounter Note [address] [place] [address] PCP:SHAHEEN Toro ED15 CHIEF COMPLAINT: Chief Complaint [...] Chronic obstructive pulmonary disease (COPD) ([facility]) Crush injury lower extremities 1966 Left leg and foot Cutaneous abscess of chest wall Disease of sebaceous glands Diverticulosis Diverticulosis of colon Epidermal cyst Epigastric pain Esophageal ulcer with bleeding GERD (gastroesophageal reflux disease) Hip fracture ([facility]) 2003 Left Hyperlipidemia Inflamed seborrheic keratosis [...] BACK SURGERY 1981 Lower back COLONOSCOPY 09/23/2013 [facility] ENDOSCOPY 08/10/2013 [facility] ERCP N/A 08/14/2017 Procedure: ERCP; Surgeon: Jamey Hdz MD; Location: [facility] MEDICAL PROCEDURE UNIT HIP FRACTURE [...] OTHER SURGICAL HISTORY Endobiliary stent placed at [facility] Removal of lesion Right 2009 Right [...] pleasant and talkative, alert and appropriate, conversant [facility] nurse and staff. HEENT: Atraumatic, patient [...] were reviewed along with EMS notes and half-way record s if applicable. Medication and Allergy lists reviewed in [facility]. Nurses note and old record s were reviewed if available within [facility] ER course 18:11 - Patient care initiated. [...] Certified Why: If symptoms worsen Contact information: [address] [place] [address] New Prescriptions No medications on file Discontinued Medications No medications on file Discharge References/Attachments Laceration, Chin, Suture or Tape (Swedish) Portions of this chart may have been created with [employer] voice recognition software. Occasi onal wrong-word or [...] | | + +--------+ +---------+------+ + | rginfjr-gjntweyoar-ztovqgkkl | Given | 02/18/20 | 0.5 mLs [...]
--- OUTSIDE RECORDS SUMMARY | ~2019-11-28 | XMS | Encounter Summary ---
Demographics + + + | Address | [address] | | | [place] [address] | + + + | Home Phone | | + + + | Preferred Language | Unknown | + + + | Marital Status | | + + + | Mormon Affiliation | Unknown | + + + | Race | Unknown | + + + | Ethnic Group | Unknown | + + + Author + + + | Author | [facility] | | | and [place] | + + + | Organization | [facility] | | | and [...] Providers + +------+ + | Care Director International Name | Role | Phone | + [...] | Closed | | | Diagnoses | Yovanny, | [facility] | | | | | Chronic | She | HOSPITAL | | | | | obstructive | MD Domonique | SLEEP | | | | | pulmonary | [address] | DISORDERS LAB | | | | | disease, | [place] | [address] | | | | | unspecified | TREASURE E | [address] | | | | | COPD type | [place], [place] | [place] | | | | | ([facility]) | [address] | [address] | | | | | Procedures | Phone: | Phone: | | | | | Pulmonary | [phone] | [phone] | | | | | function | Fax: | Fax: | | | | | test | [phone] | [phone] | +--------+--------+ + + + + Reason [...] | | | pulmonary | [address] | [address] | | | | | disease, | [address] [place] | [address] | | | | | unspecified | [address] | [place] | | | | | COPD type | [address] | [address] Phone: | | | | | ([facility]) | Phone: | [phone] | | | | | | [phone] | Fax: | | | | | | Fax: | [phone] | | | | | | [phone] | | +--------+ + + + + + Encounter Details +--------+---------+ + + + | Date | Type | Department | Care Team | Description | +--------+---------+ + + + | 04/30/ | Office | [facility] | Yovanny, | Shortness of breath | | 2019 | Visit | PULMONOLOGY [address] | She Youssef, | (Primary Dx); | | | | [address] | [address] | Chronic obstructive | | | | [place] | TREASURE [place], | pulmonary disease, | | | | [address] | [place] [address] | unspecified COPD | | | | [phone] | [phone] | type (HCC); | | | | [...] in this encounter Progress Notes Brock Bocanegra, Carpet Technician - 04/30/2019 1:30 PM PST3 step testing Oximetry Exercise (code) 17486 1. At rest on room air: Time:2:24 [...] been admitted for a bowel obstruction in [facility] and he is recovering from this. He [...] the last time he was admitted in [facility]. 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 He has a dog. He denies owning pigeons. He grew up in [place]. He denies having respirator y issues when he was younger. The following elements of the patient's history were reviewed and updated as appropriate. T sarathy are available elsewhere in the patient record. [...] obstruction Choledocholithiasis Chronic obstructive pulmonary disease (COPD) ([facility]) Crush injury lower extremities 1966 Left leg and foot Cutaneous abscess of chest wall Disease of sebaceous glands Diverticulosis Diverticulosis of colon Epidermal cyst Epigastric pain Esophageal ulcer with bleeding GERD (gastroesophageal reflux disease) Hip fracture ([facility]) 2003 Left Hyperlipidemia Inflamed seborrheic keratosis Inguinal [...] BACK SURGERY 1981 Lower back COLONOSCOPY 09/23/2013 [facility] ENDOSCOPY 08/10/2013 [facility] ERCP N/A 08/14/2017 Procedure: ERCP; Surgeon: Jamey Hdz MD; Location: [facility] MEDICAL PROCEDURE UNIT HIP FRACTURE [...] OTHER SURGICAL HISTORY Endobiliary stent placed at [facility] Removal of lesion Right 2009 Right [...] his PFT. His studies were sent to [facility]. Three minute walk test did not show [...] Hairston MD Pulmonary and Critical Care Medicine [facility]/[address] , [facility] [place] [address] documente d in this encounter Plan of [...]
--- OUTSIDE RECORDS SUMMARY | ~2019-11-28 | XMS | Encounter Summary ---
Demographics + + + | Address | [address] | | | [place] [address] | + + + | Home Phone | | + + + | Preferred Language | Unknown | + + + | Marital Status | | + + + | Buddhism Affiliation | NON | + + + | Race | White | + + + | Ethnic Group | Not or | + + + Author + + + | Author | [facility] | + + + | Organization | [facility] | + + + | Address | Unknown | + + + | Phone | Unavailable | + + + Support + + +---------+ + | Name | Relationship | Address | Phone | + + +---------+ + | None Per Pt | ECON | Unknown | Unavailable | + + +---------+ + Care Team Providers + +------+ + | Care Bottler Helper Name | Role | Phone | + [...] | | | | | [place] Estevez [place], | [place], [place] | | | | | [place] [address] | [address] | | | | | [phone] | [phone] | | | | | | | [...] Recinos MD - 06/11/2018 10:00 AM PST [facility] Facility Intake Exam - [facility] Alan Thomas "Carlos" James Burns is a 83 y.o. male with a PMH significant for prior L THR, SVT, HT N, COPD (non-O2 dependent), prior UGIB. He is admitted to [facility] for skilled therapy following a hospitalization at [facility] from 05/31 to 06/06 for Left Acetabular Fracture in the setting of a prior THR. Hospital course was significant for: Carlos was transferred to [facility] from [facility] on 05/31 for management of a complex [...] independent at baseline. He was brought to [facility] given his medical comorbidities and pe[place] rn [...] to visit (already scheduled for 07/02/18 at [facility] Ortho ). His course was c/b bloating [...] in stool, unlikely that EGD would change management coordinator. He was also seen by the Geriatrics [...] List Diagnosis COPD (chronic obstructive pulmonary disease) ([facility]) Essential hypertension Physical deconditioning Atrial fibrillation ([facility]) Diverticulosis of colon GERD (gastroesophageal reflux disease) Raynaud's syndrome Right fascicular block Closed fracture of anterior column of left acetabulum with routine healing HTN (hypertension) Past Medical History: Diagnosis Date Acute cholangitis 06/27/2017 Aspiration pneumonitis ([facility]) 06/28/2017 Atrial fibrillation ([facility]) 08/13/2017 Choledocholithiasis 06/26/2017 Closed fracture of anterior column of left acetabulum with routine healing 06/11/2018 COPD (chronic obstructive pulmonary disease) ([facility]) Diverticulosis of colon 01/01/2007 Overview: Note: Unchanged GERD (gastroesophageal reflux disease) 08/13/2017 GI bleed 2013 esophageal ulcer s/p clipping 2013 HTN (hypertension) Klebsiella sepsis ([facility]) 06/27/2017 Normocytic anemia Hgb around 11 in 2013 Prediabetes Raynaud's syndrome 05/23/2017 Right fascicular block 05/23/2017 S/P ERCP 06/28/2017 SVT (supraventricular tachycardia) ([facility]) unclear hx. "Possible SVT" [...] (has used x 2 since arriving at [facility]) - Continue Mucinex BID per home regimen [...] PGY1 GENERAL INTERNAL MEDICINE AT OFFSITE Pager: [phone] Associated attestation - Crystal Evans MD - [...] the following additions/clarifications/exceptions: none Crystal Evans MD [facility] Division of Internal Medicine and Geriatrics [...]
--- OUTSIDE RECORDS SUMMARY | ~2019-11-28 | XMS | Encounter Summary ---
Demographics + + + | Address | [address] | | | [place] [address] | + + + | Home Phone | | + + + | Preferred Language | Unknown | + + + | Marital Status | | + + + | Yazdanism Affiliation | NON | + + + [...] Team Providers + +------+ + | Care Sales Assoc Name | Role | Phone | + [...] Mitesh | | | | | [facility] | [facility] | | | | | Hospital Admitting | [place], [place] | | | | | Desk Located on the | [address] | | | | | 9th floor | [phone] | | | | | [place], [place] | | | | | | [address] | | | +--------+ + + + [...] | | +--------+ + + + | Denture Laboratory Technician | 06/27/17; 2205; Medium | 06/27/172205 by [...] | | Endotracheal Tube; 7.5; Oral; | CORPORATE TECHNICAL RECRUITER | CORPORATE TECHNICAL RECRUITER | | | 06/03/18; 1418 | | [...] | Narrative Attending: CATHI MACARIO Performed by CORPORATE TECHNICAL RECRUITER | | | DONNIE CARDONA | | [...]
--- OUTSIDE RECORDS SUMMARY | ~2019-11-28 | XMS | Encounter Summary ---
Demographics + + + | Address | [address] | | | [place] [address] | + + + | Home Phone [...] Team Providers + +------+ + | Care Park Aide Name | Role | Phone | + [...] | | [address] | [place], [place] | | | | | [place], | [address] | | | | | [address] floor [place], | [phone] | | | | | [place] [address] | | | | | | [phone] | | | +--------+ + + + [...]
--- OUTSIDE RECORDS SUMMARY | ~2019-11-28 | XMS | Encounter Summary ---
Demographics + + + | Address | [address] | | | [place] [address] | + + + | Home Phone | | + + + | Preferred Language | Unknown | + + + | Marital Status | | + + + | Denominational Affiliation | NON | + + + [...] Team Providers + +------+ + | Care Rn Ostomy Name | Role | Phone | + [...] | 07/23/ | Telephone | Endoscopic | Lyla Mendoza | Care Coordination | | 2018 | | Procedural Unit at | MD Rashida [address] | (ERCP f/u) | | | | Mikayla Borges [address] | | | | | [address] | [place], [place] | | | | | [place], | [address] | | | | | 4th floor [place], | [phone] | | | | | [place] [address] | | | | | | [phone] | | | +--------+ + + + [...]
--- OUTSIDE RECORDS SUMMARY | ~2019-11-28 | XMS | Encounter Summary ---
Demographics + + + | Address | [address] | | | [place] [address] | + + + | Home Phone [...] Team Providers + +------+ + | Care Hand Molder Meat Name | Role | Phone | + [...] | [address] | [place] Este[place], | | | | | [place], | [place] [address] | | | | | [place] [address] | [phone] | | | | | [phone] | | | +--------+ + + + [...]
--- OUTSIDE RECORDS SUMMARY | ~2019-11-28 | XMS | Encounter Summary ---
Demographics + + + | Address | [address] | | | [place] [address] | + + + | Home Phone [...] Team Providers + +------+ + | Care Nnp Name | Role | Phone | + [...] | | | | | Choledocholi | [address] | | | | | thiasis | [address] | [place] | | | | | Procedures | [place] Estevez | [place], [address]th | | | | | CONSULT TO | [place], [place] | floor | | | | | GI | [address] | [place], [place] | | | | | PROCEDURE: | Phone: | [phone] | | | | | ERCP / | [phone] | Phone: | | | | | BILIARY | Fax: | [phone] | | | | | MANOMETRY | [phone] | Fax: | | | | | | | [phone] | +--------+--------+ + + + + Encounter Details +--------+ + + + + | Date | Type | Department | Care Team | Description | +--------+ + + + + | 06/27/ | Affiliate Manager | Digestive Health | Lyla Mendoza | Choledocholithiasis | | 2018 | | [place] [address] | MD Rashida [address] [facility] | (Primary Dx) | | | | [address] [facility] | [address] | | | | | for [facility] and | [place], [place] | | | | | [facility], [facility] [address] | [address] | | | | | [facility] [place] | [phone] | | | | | [address] | | | | | | [phone] | | | +--------+ + + + [...]
--- OUTSIDE RECORDS SUMMARY | ~2019-11-28 | XMS | Encounter Summary ---
Demographics + + + | Address | [address] | | | [place] [address] | + + + | Home Phone [...] Team Providers + +------+ + | Care Zinc Plater Name | Role | Phone | + [...] [facility] | | | | | [facility] | [facility] | | | | | Hospital Admitting | [place], [place] | | | | | Desk Located on the | [address] | | | | | 9th floor | [phone] | | | | | [place], [place] | | | | | | [address] | | | +--------+---------+ + + + [...] might be differen t from the original. [facility] Discharge Summary Discharging Provider: VIRGIL GRIMM MD [...] and intubated prior to tra nsfer to [facility]. Workup was notable for RUQ U/S [...] Your Medications These medications were sent to [id number] [place] [address] [place] [address] Hours: 9AM-7PM MON - FRI / 9AM-6PM [...] Thank you for entrusting your care to [facility] Internal Medicine. If you have any problems or concerns before you are able to follow up with your Primary Care Provider, please call and ask the collar folder operator to page the attending physician, Vic Petty MD, wh o was caring for you at discharge. If that physician is not available, ask the collar folder operator to page the physician method consultant for the Medical Teaching Service. Call us right away if any of the following occur: Recurrent abdominal pain Shaking chills or night sweats Other Discharge Orders and Instructions You will be called by the [facility] GI service within the next week to schedule a repeat appoint ment for ERCP and possible stent removal. Home Health Referral after Hospitalization Comments: I certify that this patient is under my care and that I, or Nurse Practitioner or Physician Makeup Editor working with me, had a face to face encounter with this patient on 06/30/2017 On behalf of Attending Physician: Vic Petty MD I am ordering and certify that the following services are medically necessary home health s [facility] Home Health Physical Therapy Evaluate and Treat I certify that the patient is homebound based on the following clinical findings Post-hospi tono weakness, decreased strength and endurance, and tires easily with minimal exertion Follow Up: Schedule the following appointment(s) when you get home DARYL MATHEWS MD . Specialty: Internal Medicine Contact information [facility] [address] [place] [address] [address] [facility] [id number] Discharge Physical Exam: Last 24 hour min/max [...] (HCC) 12) Acute respiratory failure with hypoxia ([facility]) Please refer to the resident discharge summary for additional details. Vic Petty MD, PhD Clinical Hospitalist and Medicine Teaching Services [facility] Pager [phone] I have spent 35 minutes with the [...] might be different from bella landin. PHYSICIAN BUSINESS ENTERPRISE OFFICER STUDENT PROGRESS NOTE FOR EDUCATIONAL PURPOSES ONLY [...] Q2H PRN ipratropium-albuterol 3 mL Q6H PRN hsugmhqe-kpgffia-kkrmcegl-zinc QID PRN oxyCODONE (immediate release) 2.5-5 mg [...] IV/Airways/Catheters: PIV Code status: FULL SHAHEEN Oconnell-S [facility] Physician Makeup Editor Program 06/29/17 Kang Zhang MD - 06/29/2017 [...] due to aspiration requiring intubation, transferred to [facility] MICU. Here found to have klebsiella [...] PhD Clinical Hospitalist and Medicine Teaching Services [facility] Pager [phone] I have spent 26 minutes with the [...] interval not displayed. Micro: BLOOD CULTURE WORKUP [[id number]] (Abnormal) KP LAB Collected: 06/26/17 0939 Lab [...] List: Active Hospital Problems 1) *Septic shock ([facility]) 2) Choledocholithiasis 3) Acute cholangitis 4) Klebsiella sepsis ([facility]) 5) Aspiration pneumonitis ([facility]) 6) S/P ERCP 7) COPD (chronic obstructive pulmonary disease) ([facility]) 8) Essential hypertension Resolved Hospital Problems 9) Septic shock ([facility]) 10) Non-ST elevation myocardial infarction (NSTEMI), type 2 ([facility]) 11) Acute respiratory failure with hypoxia ([facility]) Assessment: William Burns is a 82 y.o. [...] Primary Surrogate Decision Maker Sharon Rodriguez Daughter [phone] Dimas Xavier MD Internal Medicine, PGY-3 #[id number] Louis Hernandez MD - 06/28/2017 2:26 PM [...] management as outpatient (pt prefers facility near [place]) --> if develops post ERCP complications or [...] Horne - 06/28/2017 7:47 AM PST PHYSICIAN BUSINESS ENTERPRISE OFFICER STUDENT PROGRESS NOTE FOR EDUCATIONAL PURPOSES ONLY [...] Q2H PRN ipratropium-albuterol 3 mL Q6H PRN xtaeaksn-mugcpma-ncppglam-zinc QID PRN oxyCODONE (immediate release) 2.5-5 mg [...] on klebsiella cultures for sensitivity. Spoke with Construction Trades Teacher at [facility] @1330, N o sensitivity results yet from [...] IV/Airways/Catheters: PIV Code status: FULL SHONDA OconnellS [facility] Physician Makeup Editor Program 06/28/17 Alisha Rai M D - [...] 86 87 78 HCO3 22 24 23 [id number] 24 25 24 F0IIXCAF 96.4 97.0 96.8 FIO2 0.80 0.25 0.21 [...] in the patient's condition). ALISHA MAYNARD MD [facility] [address] [place] [address] Camilo Amaya MD - 11/2017 6:00 AM PST [facility] MEDICAL ICU - PROGRESS NOTE Hospital [...] 6.5 mL/Kg (459.6 mL) RR: 22 bpm [place] BW: 70.7 kg FiO2 21 fraction of [...] 87 78 HCO3 -- 22 24 23 YKJ7PAK0 -- 108* 348 371 VBGPH 7.27* -- [...] Primary Surrogate Decision Maker Sharon Rodriguez Daughter [phone] This patient was staffed with Dr. Maynard, [...] duct clearance Lyla Maldonado MD Gastroenterology Pager [phone] - Virginia Cerna MD - 06/26/2017 4:38 PM PSTFormatting of this note might be different from the origi nal. PRE PROCEDURE NOTE: MR# [id number] Subjective: William Burns is a 82 y.o. [...] hours. Concern for choledocholithiasis. Transferred t [facility] this morning. Has history of COPD and [...] Anesthesiology present and reviewed status of patient [facility] GI attending. Agreed to proceed with ERCP. [...] results for input(s): PH, PCO2, PO2, HCO3, MAVNK9FEB, R4CGEYWA, T2EKEENSS, FIO2 in the l ast 72 hours. [...] in the patient's condition). ALISHA MAYNARD MD [facility] [address] [place] [address] documented in this enco unter Plan of [...] | + +--------+ + + + | NW-EB-QQC-HB,POC RT | Urgent | 06/26/2017 | | [...] + + + | ECG | Short [place] interval | | [facility] | | [...] OF | [address] | [place], [place] | | | CARDIOLOGY | [address] | [address] | | + + + + + [...] | + + + + + | [facility] | [address] | [place] [address] | | | SERVICES, CORE | RICHARD [...] | + + + + + | [facility] | [address] | [place] [address] | | | SERVICES, CORE | [address] [...] | | | LABORATORY | | | [place] | | | SERVICES, | | | [...] | + + + + + | [facility] | [address] | [place] [address] | | | SERVICES, CORE | RICHARD [...] LABORATORY | [address] | [place] [address] | | | SERVICES, CORE | PARK [...] Note | + + | Service Account, [employer] In Interface - 06/28/2017 5:02 PM PST [...] MARQUAM | [address] | [place], [place] | | | DILAN TURNER OF CARE | [facility] | [address] | | | TESTS | | | [...] | + + + + + | [facility] | [address] | [place] [address] | | | SERVICES, CORE | PARK [...] LABORATORY | [address] | [place] [address] | | | SERVICES, CORE | RICHARD [...] | | | LABORATORY | | | [place] | | | SERVICES, | | | [...] | + + + + + | [facility] LABORATORY | [address] | [place] [address] | | | SERVICES, CORE | PARK [...] LABORATORY | [address] | [place] [address] | | | SERVICES, CORE | RICHARD [...] BETTINA TOBAR | [address] | [place], [place] | | | DILAN TURNER OF CARE | [address] | [address] | | | TESTS | | | [...] | + + | Service Account, [employer] In Interface - 06/28/2017 10:17 AM PST [...] + + | Performing | Address | City/State/[facility] | Phone Number | | Organization | [...] TOBAR | [address] | [place], [place] | | | DILAN TURNER OF CARE | [address] | [address] | | | TESTS | | | [...] AMADOU | [address] | [place], [place] | | | DILAN TURNER OF [place] | [address] | [address] | | | TESTS | | | [...] | | | LABORATORY | | | [place] | | | SERVICES, | | | [...] | + + + + + | [facility] | [address] | [place] [address] | | | SERVICES, CORE | RICHARD [...] | + + + + + | [facility] | [address] | [place] [address] | | | SERVICES, CORE | RICHARD [...] | + + + + + | [facility] | [address] | [place] [address] | | | SERVICES, CORE | PARK [...] LABORATORY | [address] | [place] [address] | | | SARA, YOKASTA | [address] [...] | + + + + + | [facility] LABORATORY | [address] | [place] [address] | | | SERVICES, CORE | RICHARD [...] (H) | 70 - 99 mg/dL | [facility] - | | | GLUCOSE, | [...] + + + | BETTINA TOBAR | [address] | [place], [place] | | | [facility] | [address] | [address] | | | TESTS | | | [...] LABORATORY | [address] | [place] [address] | | | SERVICES, CORE | [address] | | | + + + + + BRITTANY HANEY ONLY (06/27/2017 7:49 AM PST) + + + + + + | Component | Value | Ref Range | Performed | Pathologist | | | | | At | Signature | + + + + + + | COLOR(UR) | Usbha | | [facility] | | | | [...] [facility] | | | GRAVITY | Specific [place] | | LABORATORY | | | | [...] | + + + + + | [facility] LAB[facility]ATORY | [address] | [place] [address] | | | YOKASTA RUIZ | [address] | | | + + + + + ERCP (06/27/2017 6:38 AM PST) + + | Specimen | + + | | + + + + + | Narrative | Performed At | + + + | MRN: | [facility] | | [id number] Date: 06/27/2017Patient Name: William Nair #: | ENDOSCOPY | | [id number] of : 5CSN: [id number] Type: | | | InpatientRoom: SORProcedure: ERCPIndications: | | | For therapy of ascending cholangitis; 82 yo M with | | | sepsis, elevated LFTs and US showing mary dil and 1.3 cm | | | CBDProviders: BRINTHA | | | Thompson MALDONADO MD (Doctor), JORDY SOLANO, | | | RN (Nurse), ESTELA DAMIAN RN (Sap Bpc Developer)Referring MD: | | | Requesting Provider: Medicines: [...] The | | | Olympus TJF-Q180V Duodenoscope #[id number] was | | | introduced through the [...] with acute | | | cholangitis. The plant hr manager film was normal. The esophagus was [...] Initiated On: | | | 06/27/2017 6:38 [facility] Letter to: DARYL MATHEWS MD | [...] + | MRN: | [facility] | | [id number] Date: 06/27/2017Patient Name: William Nair #: | ENDOSCOPY | | [id number] of : 1935SN: [id number] Type: | | | InpatientRoom: SORProcedure: ERCPIndications: | | | For therapy of ascending cholangitis; 82 yo M with | | | sepsis, elevated LFTs and US showing mary dil and 1.3 cm | | | CBDProviders: BRINTHA | | | Thompson MALDONADO MD (Doctor), JORDY SOLANO, | | | RN (Nurse), ESTELA DAMIAN RN (Sap Bpc Developer)Referring MD: | | | Requesting Provider: Medicines: [...] The | | | Olympus TJF-Q180V Duodenoscope #[id number] was | | | introduced through the [...] with acute | | | cholangitis. The plant hr manager film was normal. The esophagus was [...] Initiated On: 06/27/2017 | | | 6:38 [facility] Letter to: DARYL MATHEWS MD | [...] | + + + + + | [facility]ATORY | [address] | [place] [address] | | | SERVICES, CORE | [address] | | | + + + + + MAGNESIUM, PLASMA (06/27/2017 12:43 AM PST) + +-------+ + + + | Component | Value | Ref Range | Performed | Pathologist | | | | | At | Signature | + +-------+ + + + | MAGNESIUM,P | 2.3 | 1.6 - 2.6 mg/dL | [facility] | | | LASMA | | | [...] LABORATORY | [address] | [place] [address] | | | SARA, YOKASTA | RICHARD [...] | + + + + + | [facility] | [address] | [place] [address] | | | SERVICES, YOKASTA | RICHARD [...] | | | LABORATORY | | | [place] | | | SERVICES, | | | [...] | + + + + + | [facility] | [address] | [place] [address] | | | SERVICES, YOKASTA | RICHARD [...] + + | ECG | Borderline prolonged IL | | [facility] | | | [...] OF | [address] | [place], [place] | | | CARDIOLOGY | [address] | [address] | | + + + + + [...] Note | + --------+ | Service Account, [employer] In Interface - 06/28/2017 9:20 AM [...] | + + + + + | [facility] LABORATORY | [address] | [place] [address] | | | SERVICES, CORE | RICHARD [...] (H) | 70 - 99 mg/dL | [facility] - | | | GLUCOSE, | [...] TOBAR | [address] | [place], [place] | | | DILAN TURNER OF CARE | [address] | [address] | | | TESTS | | | [...] Note | + + | Service Account, [employer] In Interface - 06/27/2017 9:07 AM PST [...] - [facility] | [address] | [place], [place] | | | DILAN TURNER OF [facility] | [address] | [address] | | | TESTS | | | [...] + | [facility] OF | [address] | [place], [place] | | | CARDIOLOGY | [address] | [address] | | + + + + + [...] correct patient, procedure, | | | equipment, operator command support systems and site/side marked as required. | | [...] | | | | | | Pathology ResidentAltha | | | | | | Louis [...] number | | | | | | [id number]. Bile duct, | | | | | [...] | + + + + + | [facility] | [address] | [place] [address] | | | PATHOLOGY | [address] | | | + + + + + CVL (06/26/2017 4:21 PM PST) + + + | Narrative | Performed At | + + + | Abiodun Garcia MD 06/26/2017 3:22 PM CENTRAL LINE Performed by: | | | ABIODUN GARCIA Authorized by: ALISHA MAYNARD Central Venous Catheter [...] correct patient, | | | procedure, equipment, operator command support systems and site/side marked as required. | | [...] modified Seldinger technique (a | | | sieirhul-mkxn-fzf-vjtxdk-vidc-bnmd-zayipji-dau-gyzjxzrk) was used for | | | vessel [...] LABORATORY | [address] | [place] [address] | | | YOKASTA RUIZ | [address]ICH[address] [...] | + + + + + | [facility] | [address] | [place] [address] | | | SERVICES, CORE | RICHARD [...] | + + + + + | [facility] | [address] | [place] [address] | | | SERVICES, CORE | RICHARD [...] LABORATORY | [address] | [place] [address] | | | SERVICES, YOKASTA | [address] [...] | | | LABORATORY | | | [place] | | | SERVICES, | | | [...] | + + + + + | [facility] LAB[facility]ATORY | [address] | [place] [address] | | | SERVICES, CORE | [address] [...] DEPT OF | [address] | [place], [place] | | | CARDIOLOGY | [address] | [address] | | + + + + + [...] LABORATORY | [address] | [place] [address] | | | SERVICES, CORE | [address] [...] | + + + + + | [facility] | [address] | [place] [address] | | | SERVICES, CORE | RICHARD [...] | + + + + + | [facility] | [address] | [place] [address] | | | SERVICES, CORE | RICHARD [...] | + + + + + | [facility] | [address] | [place] [address] | | | SERVICES, CORE | RICHARD [...] Note | + ----+ | Service Account, [employer] In Interface - 06/26/2017 12:57 PM PST [...] Note | + + | Service Account, [employer] In Interface - 06/26/2017 12:55 PM PST [...] LABORATORY | [address] | [place] [address] | | | SERVICES, | [address] [...] LABORATORY | [address] | [place] [address] | | | SERVICES, | [address] [...] | + + + + + | [facility] | [address] | [place] [address] | | | SERVICES, | [address] [...] + + + | ECG | Prolonged [place] interval | | [facility] | | [...] OF | [address] | [place], [place] | | | CARDIOLOGY | [address] | [address] | | + + + + + [...] | | Growth in Anaerobic bottle | [place] | + + + + + + + + | Performing | Address | City/State/Zipcode | Phone Number | | Organization | | | | + + + + + | [facility] - | [address] | [place] [address] | | | [place] | | | [...] + | [facility] - | [address] | [place] [address] | | | [place] | | | [...] | + + + + + | [facility] | [address] | [place] [address] | | | YOKASTA RUIZ | [address]ARD [...] | + + + + + | [facility] | [address] | [place] [address] | | | SERVICES, CORE | RICHARD [...] | + + + + + | [facility] | [address] | [place] [address] | | | SERVICES, CORE | RICHARD [...] | + + + + + | [facility] | [address] | [place] [address] | | | SERVICES, CORE | [address] [...] | + + + + + | [facility] | [address] | [place] [address] | | | SERVICES, CORE | [address] | | | + + + + + TROPONIN I, PLASMA (06/26/2017 9:30 AM PST) + +-------+ + + + | Component | Value | Ref Range | Performed | Pathologist | | | | | At | Signature | + +-------+ + + + | TROPONIN I | 0.33 | <0.80 ng/mL | [facility] | | | | | [...] | + + + + + | [facility] | [address] | [place] [address] | | | SERVICES, CORE | RICHARD [...] [facility] LABORATORY | [address] | [place] [address] | | | SERVICES, CORE | [address] [...] | | | LABORATORY | | | [place] | | | SERVICES, | | | [...] + + | [facility] | [address] | [place] [address] | | | SERVICES, CORE | [address] [...] | + + + + + | [facility] | [address] | [place] [address] | | | SERVICES, CORE | [address] | | | + + + + + EI-TU-PPD-HB,POC RT (06/26/2017 8:55 AM PST) + + [...] [facility] | [address] | [place], [place] | | | DILAN TURNER OF CARE | [address] | [address] | | | TESTS | | | [...] | | | NEEDED, Starting [facility] 06/28/17 at | | | | [...]
--- OUTSIDE RECORDS SUMMARY | ~2019-11-28 | XMS | Encounter Summary ---
Demographics + + + | Address | [address] | | | [place] [address] | + + + | Home Phone [...] Providers + +------+ + | Care Manager Installation Name | Role | Phone | + [...] | | 2018 | | Center at [facility] [address] | MD Rashida [address] [facility] | Received (07/16/2017- | | | | [facility] | [facility] | Current ED | | | | for Health and | [place] | Admission Notes, | | | | [facility], [facility] | [address] | Labs, Imaging | | | | [facility] [place] | [phone] | Reports and Surgery | | | | [address] | | Report with | | | | [phone] | | Pathology- St. | | | [...]
--- OUTSIDE RECORDS SUMMARY | ~2019-11-28 | XMS | Encounter Summary ---
Demographics + + + | Address | [address] | | | [place] [address] | + + + | Home Phone [...] Providers + +------+ + | Care Manager User Interface Name | Role | Phone | + [...] | | | | | [place], | | | | | | [place] [address] | | | +--------+--------+ + + + [...]
--- OUTSIDE RECORDS SUMMARY | ~2019-11-28 | XMS | Encounter Summary ---
Demographics + + + | Address | [address] | | | [place] [address] | + + + | Home Phone [...] Team Providers + +------+ + | Care Pyrotechnic Mixer Name | Role | Phone | + [...] | | 2019 | | [facility] at [facility] | MD Meron [address] | | | | | for Health and | [address] | | | | | Healing [address] | [place], [place] | | | | | e [facility] | [address] | | | | | Health and Healing, | [phone] | | | | | | | | | | | Floor [place], [place] | | | | | | [address] | | | | | | [phone] | | | +--------+ + + + [...]
--- OUTSIDE RECORDS SUMMARY | ~2019-11-28 | XMS | Encounter Summary ---
Demographics + + + | Address | [address] | | | [place] [address] | + + + | Home Phone [...] Team Providers + +------+ + | Care Magician/Illusionist Name | Role | Phone | + [...] | | 2019 | | [facility] at [place] | MD Meron [address] | | | | | for Health and | [address] | | | | | Healing [address] | [place], [place] | | | | | e [facility] | [address] | | | | | Health and Healing, | [phone] | | | | | | | | | | | Floor [place], [place] | | | | | | [address] | | | | | | [phone] | | | +--------+ + + + [...]
--- OUTSIDE RECORDS SUMMARY | ~2019-11-28 | XMS | Encounter Summary ---
Demographics + + + | Address | [address] | | | [place] [address] | + + + | Home Phone [...] Team Providers + +------+ + | Care File System Installer Name | Role | Phone | + +------+ + PCP | Unavailable | + +------+ + Encounter Details +--------+ + + + + | Date | Type | Department | Care Team | Description | +--------+ + + + + | 03/05/ | Hospital | [facility] | Wing Jennifer Hunter MD | REHABILITATION PROC | | 2002 - | Encounter | [facility] | [address] | NEC | | | | INPATIENT | [place], [place] | | | 03/09/ | | REHABILITATION [address] | [address] | | | 2002 | | MONIKA MIRZA | [phone] | | | | | [place], [place] | | | | | | [address] | | | | | | [phone] | | | +--------+ + + + [...]
--- OUTSIDE RECORDS SUMMARY | ~2019-11-28 | XMS | Encounter Summary ---
Demographics + + + | Address | [address] | | | [place] [address] | + + + | Home Phone | | + + + | Preferred Language | Unknown | + + + | Marital Status | | + + + | Nondenominational Affiliation | NON | + + + | Race | White | + + + | Ethnic Group | Not or | + + + Author + + + | Author | [facility] | + + + | Organization | [facility] | + + + | [...] Providers + +------+ + | Care Assistant Bookkeeper Name | Role | Phone | + [...] + + | 06/18/ | Telephone | [facility] Primary Care | Nava | Constipated | | 2019 | | at [facility] | Dimas Pelayo MD | | | | | [address] | [address] | | | | | Loop Physician's | [address] [facility], | | | | | [address], [address]rd floor | [place] [address] | | | | | [place], [place] | [phone] | | | | | [address] | | | | | | [phone] | | | +--------+ + + + [...]
--- OUTSIDE RECORDS SUMMARY | ~2019-11-28 | XMS | Encounter Summary ---
Demographics + + + | Address | [address] | | | [place] [address] | + + + | Home Phone [...] Team Providers + +------+ + | Care Seam Stay Stitcher Name | Role | Phone | + +------+ + | Herlinda Maldonado | PCP | | + +------+ + Encounter Details +--------+ + + + + | Date | Type | Department | Care Team | Description | +--------+ + + + + | 06/16/ | Telephone | [facility] | [place], | | | 2018 | | at [facility] | Alexa Anderson MD | | | | | [address] | [address] | | | | | [address] [facility] | [place], | | | | | [place], [address] floor | [place] [address] | | | | | [place], [place] | [phone] | | | | | [address] | | | | | | [phone] | | | +--------+ + + + [...]
--- OUTSIDE RECORDS SUMMARY | ~2019-11-28 | XMS | Encounter Summary ---
Demographics + + + | Address | [address] | | | [place] [address] | + + + | Home Phone [...] Team Providers + +------+ + | [employer] Flatbed Driver Name | Role | Phone | [...] | deconditioni | Virgil Chance MD | [facility] | | | | | ng | [address] | for Health | | | | | Procedures | [address] | and Healing, | | | | | PHYSICAL | [address] | [address], | | | | | THERAPY | [facility] [place] | 1st Floor | | | | | REFERRAL | [address] | [facility] [place] | | | | | | Phone: | [phone] | | | | | | [phone] | Phone: | | | | | | Fax: | [phone] | | | | | | [phone] | Fax: | | | | | | | [phone] | +--------+--------+ + + + + Reason [...] + + | 06/26/ | Hospital | [address] | Alberto Miranda MD | | | 2018 - | Encounter | [address] | [address] | | | | | [address] [place] [address] | Carolina Guerra [place], | | | 06/30/ | | [place], [place] | [place] [address] | | | 2017 | | [address] | [phone] | | | | | [phone] | | | | | | | Vic Petty | | | | | | MD [place]erson [address] | | | | | | [address] | | | | | | [place], [place] | | | | | | [address] | | | | | | [phone] | | | | | | | [...] from the original. [facility] Discharge Summary Discharging Provider: VIRGIL [...] and intubated prior to tra nsfer to [facility]. Workup was notable for RUQ U/S [...] Your Medications These medications were sent to [id number] [id number] [place] [address], [place] [address] Hours: 9AM-7PM MON - FRI / 9AM-6PM [...] Thank you for entrusting your care to [facility] Internal Medicine. If you have any problems or concerns before you are able to follow up with your Primary Care Provider, please call and ask the metal sheet roller operator to page the attending physician, Vic Petty MD, wh o was caring for you at discharge. If that physician is not available, ask the metal sheet roller operator to page the physician regional operations director for the Medical Teaching Service. Call us right away if any of the following occur: Recurrent abdominal pain Shaking chills or night sweats Other Discharge Orders and Instructions You will be called by the [facility] GI service within the next week to schedule a repeat appoint ment for ERCP and possible stent removal. Home Health Referral after Hospitalization Comments: I certify that this patient is under my care and that I, or Nurse Practitioner or Physician Fourchette Sewer working with me, had a face to face encounter with this patient on 06/30/2017 On behalf of Attending Physician: Vic Petty MD I am ordering and certify that the following services are medically necessary home health s [facility] Home Health Physical Therapy Evaluate and Treat I certify that the patient is homebound based on the following clinical findings Post-hospi tono weakness, decreased strength and endurance, and tires easily with minimal exertion Follow Up: Schedule the following appointment(s) when you get home DARYL MATHEWS MD . Specialty: Internal Medicine Contact information [facility] [address] [place] [address] [address] [place] [id number] Discharge Physical Exam: Last 24 hour min/max [...] Medicine Teaching Services [facility] Pager [phone] I have spent 35 minutes with the [...] might be different from bella landin. PHYSICIAN SECURITY SHIFT SUPERVISOR STUDENT PROGRESS NOTE FOR EDUCATIONAL PURPOSES ONLY [...] Q2H PRN ipratropium-albuterol 3 mL Q6H PRN vvtespva-zmlvyrl-jyxcuvsn-zinc QID PRN oxyCODONE (immediate release) 2.5-5 mg [...] DOREEN Oconnell [facility] [place] Physician Fourchette Sewer Program 06/29/17 Kang Zhang MD - 06/29/2017 [...] List: Active Hospital Problems 1) *Septic shock ([facility]) 2) Choledocholithiasis 3) Acute cholangitis 4) Klebsiella sepsis ([facility]) 5) Aspiration pneumonitis ([facility]) 6) S/P ERCP 7) COPD (chronic obstructive pulmonary disease) ([facility]) 8) Essential hypertension 82 year-old man with HTN, COPD not on supplemental oxygen, who presented to OSH with epigas tric pain and abnormal LFTs, admitted for septic shock due to acute cholangitis and acute hy poxic respiratory failure due to aspiration requiring intubation, transferred to [facility] MICU. Here found to have klebsiella [...] Medicine Teaching Services [facility] Pager [phone] I have spent 26 minutes with the [...] 06/29/17 07 Last data filed at 06/29/17 0600 Gross [...] interval not displayed. Micro: BLOOD CULTURE WORKUP [[id number]] (Abnormal) [facility] Collected: 06/26/17 0939 Lab [...] List: Active Hospital Problems 1) *Septic shock ([facility]) 2) Choledocholithiasis 3) Acute cholangitis 4) Klebsiella sepsis ([facility]) 5) Aspiration pneumonitis ([facility]) 6) S/P ERCP 7) COPD (chronic obstructive pulmonary disease) ([facility]) 8) Essential hypertension Resolved Hospital Problems 9) Septic shock ([facility]) 10) Non-ST elevation myocardial infarction (NSTEMI), type 2 ([facility]) 11) Acute respiratory failure with hypoxia ([facility]) Assessment: William Burns is a 82 y.o. [...] Primary Surrogate Decision Maker Sharon Rodriguez Daughter [phone] Dimas Xavier MD Internal Medicine, PGY-3 #[id number] Louis Hernandez MD - 06/28/2017 2:26 PM [...] management as outpatient (pt prefers facility near [place]) --> if develops post ERCP complications or [...] Horne - 06/28/2017 7:47 AM PST PHYSICIAN SECURITY SHIFT SUPERVISOR STUDENT PROGRESS NOTE FOR EDUCATIONAL PURPOSES ONLY [...] Q2H PRN ipratropium-albuterol 3 mL Q6H PRN zsixtszb-jityktt-xpplxevu-zinc QID PRN oxyCODONE (immediate release) 2.5-5 mg [...] on klebsiella cultures for sensitivity. Spoke with Shingle Cutter at [facility] @1330, N o sensitivity results yet from [...] IV/Airways/Catheters: PIV Code status: FULL SHONDA OconnellS [facility] [place] [facility] Fourchette Sewer Program 06/28/17 Alisha Rai M D - [...] -felt to be medication related (CCB and beta-ohward) Also with AVN re-entrant tachycardia, resolved NSTEMI, [...] 86 87 78 HCO3 22 24 23 VULRB7BAK 24 25 24 Q5TGTFWG 96.4 97.0 96.8 FIO2 0.80 0.25 0.21 [...] in the patient's condition). ALISHA MAYNARD MD [facility] [address] [place] [phone] Camilo Amaya MD - 11/2017 6:00 AM PST [facility] MEDICAL ICU - PROGRESS NOTE Hospital [...] tube (06/27/17 050) | Volume AC (06/27/17 0302) Ventilator Settings Vt: 6.5 mL/Kg (459.6 mL) RR: 22 bpm [place] BW: 70.7 kg FiO2 21 fraction of [...] 87 78 HCO3 -- 22 24 23 ZBP9MPH5 -- 108* 348 371 VBGPH 7.27* -- [...] Primary Surrogate Decision Maker Sharon Rodriguez Daughter [phone] This patient was staffed with Dr. Maynard, [...] duct clearance Rene Maldonado MD Gastroenterology Pager [phone] - Virginia Cerna MD - 06/26/2017 4:38 PM PSTFormatting of this note might be different from the origi nal. PRE PROCEDURE NOTE: MR# [id number] Subjective: William Burns is a 82 y.o. [...] 4 hours. Concern for choledocholithiasis. Transferred t [facility] this morning. Has history of [...] output data in the 24 hours ending 06/26/1710 No intake or output data since the admission date ending 06/26/17909 I personally reviewed the laboratory and radiology data from the last 24 hours. Up to Last 5 ABGs in 72 hours: No results for input(s): PH, PCO2, PO2, HCO3, XWBXQ4FON, C2DYMBAV, H2YRMCMDU, FIO2 in the l ast 72 hours. [...] in the patient's condition). ALISHA MAYNARD MD [facility] [address] [place] [address] documented in this enco unter Plan of [...] | + +--------+ + + + | PV-QY-ZKV-HB,POC RT | Urgent | 06/26/2017 | | [...] + + + + | QTC-KAJAL | 465 | ms | [facility] [...] + + + | ECG | Short NH interval | | [facility] | | [...] + | [facility] | [address] | [place], [place] | | | CARDIOLOGY | [facility] | [address] | | + + + + + [...] + + + + + | [facility] | [address] | [place] [address] | | | SERVICES, CORE | [address] [...] | + + + + + | [facility] | [address] | [place] [address] | | | SERVICES, CORE | [place] [...] | | | LABORATORY | | | GUAMANIAN | | | SERVICES, | | | [...] | + + + + + | [facility] | [address] | [place] [address] | | | SERVICES, CORE | [place] [...] LABORATORY | [address] | [place] [address] | | | SERVICES, CORE | [place] [...] Note | + + | Service Account, [employer] Res In Interface - 06/28/2017 5:02 PM [...] + | [facility] | [address] | [place], [place] | | | DILAN TURNER OF CARE | [facility] | [address] | | | TESTS | | | [...] LABORATORY | [address] | [place] [address] | | | SERVICES, CORE | PARK [...] LABORATORY | [address] | [place] [address] | | | SERVICES, CORE | [place] [...] | | | LABORATORY | | | GUAMANIAN | | | SERVICES, | | | | | | CORE | | + +---------+ + + + | EGFR NON | >60 | >60 mL/min | [facility] | | | -[facility] | | | LABORATORY | | | [...] | + + + + + | [facility] LABORATORY | [address] | [place] [address] | | | SERVICES, CORE | PARK [...] | + + + + + | [facility] LABORATORY | [address] | [place] [address] | | | [address] | [place] [...] (H) | 70 - 99 mg/dL | [facility] - | | | GLUCOSE, | [...] + | [facility] | [address] | [place], [place] | | | DILAN TURNER OF [facility] | [address] | [address] | | | TESTS | | | [...] TOBAR | [address] | [place], [place] | | | DILAN TURNER OF CARE | [address] | [address] | | | TESTS | | | [...] MARQUAM | [address] | [place], [place] | | | DILAN TURNER OF CARE | [address] | [address] | | | TESTS | | | [...] | | | LABORATORY | | | GUAMANIAN | | | SERVICES, | | | [...] | + + + + + | [facility] | [address] | [place] [address] | | | SERVICES, CORE | [place] [...] | + + + + + | [facility] LABORATORY | [address] | [place] [address] | | | SERVICES, YOKASTA | [place] [...] | + + + + + | [facility] | [address] | [place] [address] | | | SERVICES, CORE | [place] [...] LABORATORY | [address] | [place] [address] | | | SERVICES, CORE | [place] [...] | + + + + + | [facility] LABORATORY | [address] | [place] [address] | | | SERVICES, CORE | [place] [...] (H) | 70 - 99 mg/dL | [facility] - | | | GLUCOSE, | [...] TOBAR | [address] | [place], [place] | | | DILAN T[place] | [facility] | [address] | | | TESTS | | | [...] LABORATORY | [address] | [place] [address] | | | SERVICES, CORE | [place] [...] [facility] | | | GRAVITY | Specific Ennice | | LABORATORY | | | | [...] | panel if clinically indicated. | SERVICES, YOKASTA | + + + + + + + + | Performing | Address | City/State/Zipcode | Phone Number | | Organization | | | | + + + + + | [facility]ORY | [address] | [place] [address] | | | [address] | [address] | | | + + + + + ERCP (06/27/2017 6:38 AM PST) + + | Specimen | + + | | + + + + + | Narrative | Performed At | + + + | MRN: | [facility] | | [id number] Date: 06/27/2017Patient Name: William Nair #: | ENDOSCOPY | | [id number] of : 1935SN: [id number] Type: | | | InpatientRoom: SORProcedure: ERCPIndications: | | | For therapy of ascending cholangitis; 82 yo M with | | | sepsis, elevated LFTs and US showing mary dil and 1.3 cm | | | CBDProviders: RENE | | | Thompson MALDONADO MD (Doctor), JORDY SOLANO, | | | RN (Nurse), ESTELA DAMIAN, RN (Dielectric Testing Machine Operator)Referring MD: | | | Requesting Provider: Medicines: [...] The | | | Olympus TJF-Q180V Duodenoscope #[id number] was | | | introduced through the [...] with acute | | | cholangitis. The condominium property manager film was normal. The esophagus was [...] were in SOR, images were not availableRENE K | | | MD ERICA06/27/2017 6:48:17 AMNumber of Addenda: 0Note Initiated On: | | | 06/27/2017 6:38 [facility] Letter to: DARYL MATHEWS MD [...] + | MRN: | [facility] | | [id number] Date: 06/27/2017Patient Name: William Nair #: | ENDOSCOPY | | [id number] of : 1935SN: [id number] Type: | | | InpatientRoom: SORProcedure: ERCPIndications: | | | For therapy of ascending cholangitis; 82 yo M with | | | sepsis, elevated LFTs and US showing mary dil and 1.3 cm | | | CBDProviders: RENE | | | Thompson MALDONADO MD (Doctor), JODRY SOLANO, | | | RN (Nurse), ESTELA DAMIAN RN (Dielectric Testing Machine Operator)Referring MD: | | | Requesting Provider: Medicines: [...] The | | | Olympus TJF-Q180V Duodenoscope #[id number] was | | | introduced through the [...] with acute | | | cholangitis. The condominium property manager film was normal. The esophagus was [...] | | repeating abd US to evaluate gallroxaneer | | | Will need ERCP in 4 weeks post d/c to remove stent | | | and clear ductRENE MALDONADO | | | 06/27/2017 6:48:17 AMNumber of Addenda: 0Note Initiated On: 06/27/2017 | | | 6:38 [facility] Letter to: DARYL MATHEWS MD | | |06/27/2017 6:48:17 AM | | |Number of Addenda: 0 | | |Note Initiated On: 06/27/2017 6:38 AM | | | Letter to: | | | DARYL MATHEWS MD | | + + + + +---------+ + + | Performing | Address | City/State/[facility] | Phone Number | | [...] | + + + + + | [facility] LAB[facility]ATORY | [address] | [place] [address] | | | SERVICES, CORE | [address] | | | + + + + + MAGNESIUM, PLASMA (06/27/2017 12:43 AM PST) + +-------+ + + + | Component | Value | Ref Range | Performed | Pathologist | | | | | At | Signature | + +-------+ + + + | MAGNESIUM,P | 2.3 | 1.6 - 2.6 mg/dL | [facility] | | | LASMA | | | [...] LABORATORY | [address] | [place] [address] | | | SERVICES, YOKASTA | [place] [...] | + + + + + | [facility] | [address] | [place] [address] | | | SERVICES, CORE | [place] [...] | | | LABORATORY | | | GUAMANIAN | | | SERVICES, | | | [...] | + + + + + | [facility] | [address] | [place] [address] | | | SERVICES, YOKASTA | [address] [...] + + | ECG | Borderline prolonged NH | | [facility] | | | [...] | + + + + + | [facility] DEPT OF | [address] | [place], [place] | | | CARDIOLOGY | [address] | [address] | | + + + + + [...] Note | + --------+ | Service Account, [employer] In Interface - 06/28/2017 9:20 AM PST [...] | + + + + + | [facility] LABORATORY | [address] | [place] [address] | | | SERVICES, CORE | [place] [...] (H) | 70 - 99 mg/dL | [facility] - | | | GLUCOSE, | [...] + + + | [facility] | [address] | [place], [place] | | | DILAN T[facility] | [facility] | [address] | | | TESTS | | | [...] Note | + + | Service Account, [employer] Res In Interface - 06/27/2017 9:07 AM [...] [facility] | [address] | [place], [place] | | | YUE POINT OF CARE | [address] | [address] | | | TESTS | | | [...] + + + + | QTC-BAEDETT | 473 | ms | [facility] DE[facility] [...] OF | [address] | [place], [place] | | | CARDIOLOGY | [address] | [address] | | + + + + + [...] correct patient, procedure, | | | equipment, office support and site/side marked as required. | | [...] | | | | | | Pathology ResidentKevin | | | | | | R MD Lam PhD / | | | | | [...] number | | | | | | [id number]. Bile duct, | | | | | [...] | + + + + + | [facility] | [address] | [place] [address] | | | PATHOLOGY | [address] [...] correct patient, | | | procedure, equipment, office support and site/side marked as required. | | [...] modified Seldinger technique (a | | | ktmuwrud-hyga-atd-ckuazj-jdyn-joep-ttcexrj-mmr-thowhzov) was used for | | | vessel [...] vasoactive | | | medication Procedure location: 7A Providers: Attending name: | | | Attending [...] LABORATORY | [address] | [place] [address] | | | SERVICES, CORE | [address] [...] | + + + + + | [facility] | [address] | [place] [address] | | | SERVICES, CORE | [place] [...] | + + + + + | [facility] | [address] | [place] [address] | | | SERVICES, CORE | [place] [...] | + + + + + | [facility] | [address] | [place] [address] | | | SERVICES, CORE | [address] [...] | | | LABORATORY | | | GUAMANIAN | | | SERVICES, | | | [...] | + + + + + | [facility] LAB[facility]ATORY | [address] | [place] [address] | | | [address] | [place] [...] + + + + | ERIKA | 486 | ms | [facility] DE[facility] [...] OF | [address] | [place], [place] | | | CARDIOLOGY | [address] | [address] | | + + + + + [...] | + + + + + | [facility] | [address] | [place] [address] | | | SERVICES, CORE | [place] [...] | + + + + + | [facility] | [address] | [place] [address] | | | SERVICES, CORE | [place] [...] | + + + + + | [facility] | [address] | [place] [address] | | | SERVICES, CORE | [place] [...] Account, Shana Res In Interface - 06/26/2017 12:57 PM [...] | + + + + + | [facility] | [address] | [place] [address] | | | SERVICES, YOKASTA | [place] [...] Note | + ----+ | Service Account, [employer] Res In Interface - 06/26/2017 12:57 PM [...] Note | + + | Service Account, [employer] In Interface - 06/26/2017 12:55 PM PST [...] Note | + + | Service Account, [employer] Res In Interface - 06/26/2017 10:12 AM [...] LABORATORY | [address] | [place] [address] | | | SERVICES, | [address] [...] LABORATORY | [address] | [place] [address] | | | SERVICES, | [address] [...] | + + + + + | [facility] | [address] | [place] [address] | | | SERVICES, | [address] [...] + + + | ECG | Prolonged NH interval | | [facility] | | [...] OF | [address] | [place], [place] | | | CARDIOLOGY | [address] | [address] | | + + + + + [...] Klebsiella oxytoca Refer to culture collected | [facility] - | | 06/26/17 at 0939 for susceptibilities Growth in Aerobic bottle | [facility] - | | Growth in Anaerobic bottle | [place] | + + + + + + + + | Performing | Address | City/State/Zipcode | Phone Number | | Organization | | | | + + + + + | [facility] | [address] | [place] [address] | | | [place] | | | | + + + [...] + | [facility] | [address] | [place] [address] | | | [place] | | | | + + + [...] LABORATORY | [address] | [place] [address] | | | [address] | [place] [...] | + + + + + | [facility] | [address] | [place] [address] | | | SERVICES, CORE | [place] [...] and promyelocytes. Bands are included in | [employer], CORE | | the neutrophil count, not the IG count, except in neonates <=60 days | | | old where bands are reported in a manual diff. | | + + + + + + + + | Performing | Address | City/State/Zipcode | Phone Number | | Organization | | | | + + + + + | [facility] | [address] | [place] [address] | | | SERVICES, CORE | [address] [...] | + + + + + | [facility] | [address] | [place] [address] | | | SERVICES, CORE | P[address] [...] | + + + + + | [facility] | [address] | [place] [address] | | | SERVICES, CORE | [address] [...] | + + + + + | [facility] | [address] | [place] [address] | | | SERVICES, CORE | [place] [...] [facility] | [address] | [place] [address] | | | SERVICES, CORE | P[address] [...] | | | LABORATORY | | | GUAMANIAN | | | SERVICES, | | | [...] | + + + + + | [facility] | [address] | [place] [address] | | | SERVICES, CORE | [address] [...] | + + + + + | [facility] | [address] | [place] [address] | | | SERVICES, CORE | [address] | | | + + + + + FM-CV-YGE-HB,POC RT (06/26/2017 8:55 AM PST) + + [...] [facility] | [address] | [place], [place] | | | ADDISON TURNER | [address] | [address] | | | TESTS | | | [...] | | | | | modification) on [facility] 06/28/17 at | | | | [...] 8:06 | | | | | on Sun06/28/17 at 0900, Until | | AM PST [...] | | | | | NEEDED, Starting [facility] 06/28/17 at | | | | [...]
--- OUTSIDE RECORDS SUMMARY | ~2019-11-28 | XMS | Encounter Summary ---
Demographics + + + | Address | [address] | | | [place] [address] | + + + | Home Phone | | + + + | Preferred Language | Unknown | + + + | Marital Status | | + + + | Zoroastrian Affiliation | NON | + + + [...] Team Providers + +------+ + | Care Driver Courier Name | Role | Phone | + +------+ + | Herlinda Maldonado | PCP | | + +------+ + Encounter Details +--------+ + + + + | Date | Type | Department | Care Team | Description | +--------+ + + + + | 06/20/ | Documentati | General Internal | Annabella Gallardo DO | | | 2019 | on | [facility] | [address] | | | | | [address] | [place], | | | | | [place], | [place] [address] | | | | | [place] [address] | [phone] | | | | | [phone] | | | +--------+ + + + [...]
--- OUTSIDE RECORDS SUMMARY | ~2019-11-28 | XMS | Encounter Summary ---
Demographics + + + | Address | [address] | | | [place] [address] | + + + | Home Phone [...] Providers + +------+ + | Care Rn Emergency Room Name | Role | Phone | + [...] | | | | | | [facility] | | | | | | Hospital Admitting | | | | | | Desk Located on the | | | | | | 9th floor | | | | | | [place], [place] | | | | | | [address] | | | +--------+ + + + [...]
--- OUTSIDE RECORDS SUMMARY | ~2019-11-28 | XMS | Encounter Summary ---
Demographics + + + | Address | [address] | | | [place] [address] | + + + | Home Phone | | + + + | Preferred Language | Unknown | + + + | Marital Status | | + + + | Anabaptist Affiliation | NON | + + + | Race | White | + + + | Ethnic Group | Not or | + + + Author + + + | Author | [facility] | + + + | Organization | [facility] | + + + | [...] + +------+ + | Care Regulatory Affairs Manager Name | Role | Phone | [...] Anesthesia | [address] | oBb [place], | | | 2018 | Event | [address] | [address] | | | | | [facility]b [facility] | [facility] | | | | | [facility] Admitting | [place], [place] | | | | | Desk Located on the | [address] | | | | | 9th floor | [phone] | | | | | [place], [place] | | | | | | [address] | | | +--------+ + + + [...] + + | Urethr | 06/26/17; 09; [facility]; | 06/26/17 09 by | 06/27/17 1100 by | | al | Veena-nita Arriaga; 06/27/17; 1100 | Leonor Peck RN | Lani Chicas RN | | Cathet | | | | | er | | | | +--------+ + + + | [facility] | 06/26/17; 0900; Dr. Garcia; [facility]; | 06/26/17 0900 by | 06/27/17 1403 [...] | 20 g; Negative; 06/26/17; 1830; | Leonro Peck RN | Leonor Peck RN | [...]
--- OUTSIDE RECORDS SUMMARY | ~2019-11-28 | XMS | Encounter Summary ---
Demographics + + + | Address | [address] | | | [place] [address] | + + + | Home Phone [...] Team Providers + +------+ + | Care Laundry Technician Name | Role | Phone | + +------+ + | Herlnida Maldonado | PCP | | + +------+ + Encounter Details +--------+ + + + + | Date | Type | Department | Care Team | Description | +--------+ + + + + | 06/26/ | Document-Sc | Health Information | Other, Faculty | | | 2018 | anned | Services [address] | [phone] | | | | | [address] | | | | | | Mailcode: OP17A | | | | | | [facility] | | | | | | [place], [place] | | | | | | [address] | | | | | | [phone] | | | +--------+ + + + [...]
--- OUTSIDE RECORDS SUMMARY | ~2019-11-28 | XMS | Encounter Summary ---
Demographics + + + | Address | [address] | | | [place] [address] | + + + | Home Phone | | + + + | Preferred Language | Unknown | + + + | Marital Status | | + + + | Scientologist Affiliation | Unknown | + + + | Race | Unknown | + + + | Ethnic Group | Unknown | + + + Author + + + | Author | [facility] | | | and [place] | + + + | Organization | [facility] | | | [...] Providers + +------+ + | Care Automotive Sales Manager Name | Role | Phone | + +------+ + PCP | Unavailable | + +------+ + Encounter Details +--------+ + + + + | Date | Type | Department | Care Team | Description | +--------+ + + + + | 02/28/ | Hospital | [facility] | Waylon Licona, | INTERTROCHANTERIC | | 2002 - | Encounter | CENTER SURGICAL [address] | [address] | [facility] ([facility]) | | | | [address] | [place] [address] | | | 03/05/ | | [place], [place] | [phone] | | | 2002 | | [address] | | | | | | [phone] | | | +--------+ + + + [...]
--- OUTSIDE RECORDS SUMMARY | ~2019-11-28 | XMS | Encounter Summary ---
Demographics + + + | Address | [address] | | | [place] [address] | + + + | Home Phone [...] Providers + +------+ + | Care Supervisor Bit And Shank Department Name | Role | Phone | [...] | | 2018 | | Arrhythmia at [facility] | MD Herson [address] | | | | | [address] | [address] | | | | | [place] for [facility] | [place], [place] | | | | | and Healing, | [address] | | | | | [facility] | [phone] | | | | | Floor [place], [place] | | | | | | [address] | | | | | | [phone] | | | +--------+ + + + [...]
--- OUTSIDE RECORDS SUMMARY | ~2019-11-28 | XMS | Encounter Summary ---
Demographics + + + | Address | [address] | | | [place] [address] | + + + | Home Phone [...] Team Providers + +------+ + | Care Hat Forming Machine Feeder Name | Role | Phone | [...] | | | | | [place] | [address] | | | | | thiasis | Mitesh Pérez | [place] | | | | | Procedures | Carolina Estevez | [place], 4th | | | | | CONSULT TO | [place], [place] | floor | | | | | [place] | [address] | [place], [place] | | | | | PROCEDURE: | Phone: | [phone] | | | | | ERCP / | [phone] | Phone: | | | | | BILIARY | Fax: | [phone] | | | | | MANOMETRY | [phone] | Fax: | | | | | | | [phone] | +--------+--------+ + + + + Encounter Details +--------+ + + + + | Date | Type | Department | Care Team | Description | +--------+ + + + + | 06/27/ | Charge Out Clerk | [facility] | Lyla Mendoza | Choledocholithiasis | | 2018 | | [place] [address]25 | MD Rashida [address] [facility] | (Primary Dx) | | | | [address] [facility] | [facility] [address] | | | | | for [facility] and | [place], [place] | | | | | [facility], [facility] [address] | [address] | | | | | [facility] [place] | [phone] | | | | | [address] | | | | | | [phone] | | | +--------+ + + + [...]
--- OUTSIDE RECORDS SUMMARY | ~2019-11-28 | XMS | Encounter Summary ---
Demographics + + + | Address | [address] | | | [place] [address] | + + + | Home Phone [...] Team Providers + +------+ + | Care Respiratory Therapy Director Name | Role | Phone | [...] fixation of | | | | Rd [facility] | [facility] [address] | acetabular | | | | Hospital Admitting | [place], [place] | lesly-prosthetic | | | | Desk Located on the | [address] | fracture | | | | 9th floor | [phone] | | | | | [place], [place] | | | | | | [address] | | | +--------+---------+ + + + [...] differe nt from the original. [facility] DEPARTMENT OF ORTHOPAEDICS & REHABILITATION INPATIENT HOSPITAL DISCHARGE SUMMARY & INTERDISCIPLINARY INSTRUCTIONS Patient: William Burns CSN: [id number] Admission Date: 05/31/2018 Discharge Date: 06/06/2018 Attending Physician: Nguyễn Shepard MD PCP: SHAHEEN oLve Service: [facility] Orthopaedics & Rehabilitation Diagnoses Principal Final Diagnosis: Left anterior column posterior hemitransverse acetabular fracture (involving 2 columns). Additional Diagnoses: COPD (chronic obstructive pulmonary disease) ([facility] Essential hypertension Physical deconditioning Procedures 06/03/2018 Closed [...] they suspect your wound is infected. Call [facility] Orthopedics first at [phone]. Activity NON Weight bearing on left leg. For approximately 4 weeks to be determined at postoperative clinic visit. Condition on Discharge Stable Follow-Up Appointments ORTHOPEDICS OUTPATIENT CLINIC: Future Appointments Provider Department Dept Phone Center 07/02/2018 1:40 PM Nguyễn Chance Working Orthopaedics at [facility] [phone] Orthopedics PCP: As needed for any medical [...] mg by mouth once daily at bedtime. [facility] Orthopaedic Service Pain Policy At the 6-week [...] administration instructions. - Call Orthopedic Clinic at [phone] if any persistent, localized swelling that does [...] and ask for the orthopaedic surgery resident hot stone setter. Additional Post-Op Instructions / What to Expect [...] a SNF "I certify that post-hospital inpatient fdc facility care is medically necessar y on [...] Condition on Discharge: Improved Discharging Patient To: Residential Facility Date and Time of Discharge Summary Completion: 06/07/2018, 2:45 PM Discharging Provider: ELISE Mckeon Discharging Attending: Nguyễn Shepard MD Thank you for the opportunity to take care of William Burns during this inpatient stay, it has been our pleasure. ELISE Mckeon [facility] Department of Orthopaedics & Rehabilitation [address] [facility] Mail Code: OP31 Dileep [place]APPE[place] [address] documented in t his encounter Medications at [...] to have left pelvic fracture, transferred to [facility] Orthopedic Surgery service for surg ical management. [facility] initially consulted for pre-operative evaluation. Nausea/Vomiting [...] says he uses sparingly. On arrival to [facility] he was on 4 L NC and [...] Sanchez MD Attending Physician Clinical Hospitalist Services [facility] Pager [phone] Please call or page me with any questions or concerns. Doe Newman MD - 06/06/2018 9:11 AM PST Orthopaedic Surgery Progress Note Patient: /Age: MRN: CSN: Date: Admission Date: Hospital Day: Orthopaedic Attending: William Burns 1935 83 y.o. [id number] 06/06/2018 05/31/2018 6 Nguyễn Shepard MD Diagnosis: [...] to have left pelvic fracture, transferred to [facility] Orthopedic Surgery service for surg ical management. [facility] initially consulted for pre-operative evaluation. Nausea/Vomiting [...] says he uses sparingly. On arrival to [facility] he was on 4 L NC and [...] Sanchez MD Attending Physician Clinical Hospitalist Services [facility] Pager [phone] Please call or page me with any questions or concerns. Doe Newman MD - 06/05/2018 7:10 AM PST Orthopaedic Surgery Progress Note Patient: /Age: MRN: CSN: Date: Admission Date: Hospital Day: Orthopaedic Attending: William Burns 1935 83 y.o. [id number] 06/05/2018 05/31/2018 5 Nguyễn Shepard MD Diagnosis: [...] < 2 seconds Doe Gongora MD [facility] Department of Orthopaedics & Rehabilitation [address] [place] [address] Mail Code: OP31 [facility] [address] Kg Snider MD - 06/04/2018 10:03 AM [...] to have left pelvic fracture, transferred to [facility] Orthopedic Surgery service for surg ical management. [facility] initially consulted for pre-operative evaluation. Nausea/Vomiting [...] says he uses sparingly. On arrival to [facility] he was on 4 L NC and [...] Sanchez MD Attending Physician Clinical Hospitalist Services [facility] Pager [phone] Please call or page me with any questions or concerns. Devendra Scales MD - 06/04/2018 7:48 AM PST Orthopaedic Surgery Progress Note Patient: /Age: MRN: CSN: Date: Admission Date: Hospital Day: Orthopaedic Attending: William Burns 1935 83 y.o. [id number] 06/04/2018 05/31/2018 4 Nguyễn Shepard MD Diagnosis: [...] [facility] & [...] refill < 2 seconds Doe Gongora MD [facility] Department of Orthopaedics & Rehabilitation [address] [place] [address] Mail Code: OP31 [facility] [address] Yordy, Devendra Allen MD - 06/03/2018 8:[address] [facility] DEPARTMENT OF ORTHOPAEDICS & REHABILITATION POST-OPERATIVE CHECK [...] MD Orthopaedic Surgery Resident 06/03/2018, 8:33 PM [facility] Department of Orthopaedics & Rehabilitation [address] [facility] Mail Code: OP31 [place] [address] Jade Messina MD - 06/02/2018 8:36 AM [...] Please call Orthopaedic Trauma and Fracture at [phone] to schedule a followup within 2 weeks from discharge. ALEXA VICKERS MD Pager: [phone] 06/02/2018 Doe Newman MD - 06/01/2018 8:27 AM PST Orthopaedic Surgery Progress Note Patient: /Age: MRN: CSN: Date: Admission Date: Hospital Day: Orthopaedic Attending: William Ramirez Grant 1935 83 y.o. [id number] 06/01/2018 05/31/2018 1 Nguyễn Shepard MD Diagnosis: [...] to [facility] with ORTHO TRAUMA & [...] Reflexes: not performed Doe Gongora MD [facility] Department of Orthopaedics & Rehabilitation [address] [facility] Mail Code: OP31 Dileep CHAPPELL [id number] documented in this enco unter Plan of [...] | + + + + + | [email or web address] | [address] | [place] [address] | | | SERVICES, CORE | RICHARD [...] | | | LABORATORY | | | FINNISH | | | SERVICES, | | | [...] + + + + + | [facility] | [address] | [place] [address] | | | SERVICES, CORE | RICHARD [...] LABORATORY | [address] | [place] [address] | | | SERVICES, CORE | PARK [...] | | | LABORATORY | | | FINNISH | | | SERVICES, | | | [...] | + + + + + | [facility] | [address] | [place] [address] | | | SARA, YOKASTA | RICHARD [...] | + + + + + | [facility] | [address] | [place] [address] | | | SERVICES, CORE | PARK [...] | + + + + + | [facility] | [address] | [place] [address] | | | SERVICES, CORE | [address] | | | + + + + + X-RAY PORTABLE 2 VIEW ABDOMEN (KUB AND UPRIGHT) (06/04/2018 2:32 PM PST) + + | Specimen | + + | | + + + + + | Narrative | Performed At | + + + | EXAM: NE 2 VIEW ABDOMEN (KUB AND UPRIGHT) History: [...] Note | + + | Service Account, [employer] Res In Interface - 06/04/2018 4:24 PM PST EXAM: NE 2 VIEW | | ABDOMEN (KUB AND [...] | + + + + + | [facility] | [address] | [place] [address] | | | SERVICES, CORE | RICHARD [...] | + + + + + | [facility] | [address] | [place] [address] | | | SERVICES, CORE | PARK [...] | + + + + + | [facility] | [address] | [place] [address] | | | SERVICES, CORE | RICHARD [...] | | | LABORATORY | | | FINNISH | | | SERVICES, | | | [...] | + + + + + | [facility] | [address] | [place] [address] | | | SERVICES, CORE | RICHARD [...] | | Attending Surgeon: Nguyễn Shepard MD Director Electrical Engineering(s): Devendra Allen | | MD Avinash. Preoperative [...] He | | was transferred to the [facility]. A sacral bump consisting [...] problem was referred to my care at [facility] by another | | orthopaedic surgeon. The patient is [facility] and traveled many miles to | | get to [facility], bypassing several other hospitals due to the [...] 06/03/2018 14:26:09DT: | | 06/03/2018 16:58:33Job #: [id number] | + + MAGNESIUM, PLASMA (06/03/2018 4:37 [...] | + + + + + | [facility] | [address] | [place] [address] | | | SERVICES, CORE | RICHARD [...] OF | [address] | [place], [place] | | | CARDIOLOGY | [address] | [address] | | + + + + + [...] [facility] | [address] | [place], [place] | | | DILAN [facility] [place] | [address] | [address] | | | TESTS | | | [...] [facility] | [address] | [place], [place] | | | DILAN TURNER OF CARE | [address] | [address] | | | TESTS | | | [...] | + + + + + | [facility] | [address] | [place] [address] | | | SERVICES, CORE | RICHARD [...] | | | LABORATORY | | | FINNISH | | | SERVICES, | | | [...] | + + + + + | [facility] | [address] [facility] | [place] [address] | | | SERVICES, CORE | RICHARD [...] OF | [address] | [place], [place] | | | CARDIOLOGY | [address] | [address] | | + + + + + [...] LABORATORY | [address] | [place] [address] | | | SERVICES, CORE | PARK [...] | + + + + + | [facility] | [address] | [place] [address] | | | SERVICES, CORE | RICHARD [...] | | | LABORATORY | | | FINNISH | | | SERVICES, | | | [...] | + + + + + | [facility] | [address] | [place] [address] | | | SERVICES, CORE | PARK [...] LABORATORY | [address] | [place] [address] | | | SERVICES, | [address] [...] | + + + + + | [facility] | [address] | [place] [address] | | | SERVICES, | [address] [...] | + + + + + | [facility] | [address] | [place] [address] | | | SERVICES, YOKASTA | [address] | | | + + + + + X-RAY KNEE 2 VIEWS LEFT (06/01/2018 11:48 AM PST) + + | Specimen | + + | | + + + + + | Narrative | Performed At | + + + | EXAM: KNEE 2 VIEWS LEFT HISTORY: eval traction pin placement | [facility] | | COMPARISON: None. FINDINGS/IMPRESSION: Interval placement [...] Denis MD 06/01/2018 6:02 PM Preliminary: Fortino Densi MD Dictation initiated: Fortino Denis MD 06/01/2018 [...] | + + + + + | [facility] | [address] [facility] | [place] [address] | | | SERVICES, CORE | RICHARD [...] | | | LABORATORY | | | FINNISH | | | SERVICES, | | | [...] | + + + + + | [facility] | [address] | [place] [address] | | | SERVICES, CORE | RICHARD [...] Note | + + | Service Account, [employer] Res In Interface - 06/01/2018 9:25 AM [...] LABORATORY | [address] | [place] [address] | | | SERVICES, CORE | PARK [...] | | | LABORATORY | | | FINNISH | | | SERVICES, | | | [...] the MDRD equation recommended by the | [facility] | | National Kidney Disease Education Program. [...] | + + + + + | [facility] | [address] | [place] [address] | | | YOKASTA RUIZ | RICHARD [...] 06/01/18 at | | | 1647, Until [facility] 06/06/18 at 2229, | | | severe [...]
--- OUTSIDE RECORDS SUMMARY | ~2019-11-28 | XMS | Encounter Summary ---
Demographics + + + | Address | [address] | | | [place] [address] | + + + | Home Phone [...] Team Providers + +------+ + | Care Pulmonary Care Nurse Name | Role | Phone [...] | | | pulmonary | [address] | [address] | | | | | disease, | St [place] | [address] | | | | | unspecified | [facility], [place] | [place], [place] | | | | | COPD type | [address] | [address] Phone: | | | | | ([facility]) | Phone: | [phone] | | | | | | [phone] | Fax: | | | | | | Fax: | [phone] | | | | | | [phone] | | +--------+ + + + + [...] | Atrial | Maximilian | [address] | | | | | fibrillation | MD Jon | [place], | | | | | , | [address] | [place] | | | | | unspecified | St [place] | [address] | | | | | type (HCC) | [place], [place] | Phone: | | | | | Procedures | [address] | [phone] | | | | | ECHO | Phone: | Fax: | | | | | Complete | [phone] | [phone] | | | | | | Fax: | | | | | | | [phone] | | +--------+--------+ + + + + [...] fibrillation | [address] | [address] | | | | | ([facility]) | [address] | [place] | | | | | Procedures | [place], | [place], [place] | | | | | TELEPHONE ORDER DISPATCHER | [place] | [address] Phone: | | | | | | [address] | [phone] | | | | | | Phone: | Fax: | | | | | | [phone] | [phone] | | | | | | Fax: | | | | | | | [phone] | | +--------+--------+ + + + + Encounter Details +--------+---------+ + + + | Date | Type | Department | Care Team | Description | +--------+---------+ + + + | 01/09/ | Office | [facility] | Maximilian Abreu | Atrial fibrillation, | | 2019 | Visit | CARDIOLOGY [address] | MD Jon [address] | unspecified type | | | | [place], | [address] [place] | (HCC) (Primary Dx); | | | | [place] [address] | [place] [address] | Right fascicular | | | | [phone] | block; Essential | | | | [...] PM PDT Referral to Dr Hairston - Entrepreneurial Finance Professor in [facility] at [facility]. Someone from that office will call you [...] Chronic obstructive pulmonary disease (COPD) ([facility]) Crush injury lower extremities 1966 [...] BACK SURGERY 1981 Lower back COLONOSCOPY 09/23/2013 [facility] ENDOSCOPY 08/10/2013 [facility] ERCP N/A 08/14/2017 Procedure: ERCP; Surgeon: Jamey Hdz MD; Location: [facility] MEDICAL PROCEDURE UNIT HIP FRACTURE [...] at [facility] Removal of lesion Right 2010 Right hand [...] made to ensure accuracy; however, inadvertent computerized bail bond agent errors may be pre sent. Electronically signed [...] Chronic | Ordered: 01/13/2019 | | to [facility] | Referral | e | obstructive | [...] CARE: | | | SHAHEEN Toro READING NETWORK APPLICATIONS SPECIALIST: Salvador Abreu MD, | | | PhD, [facility] 48-HOUR HOLTER MONITOR REPORT DATE: [...] 01:15. | | | 5) There were 29454 Supraventricular beats with 558 couplets and | [...] | Signed by: Salvador Abreu MD PhD 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
--- OUTSIDE RECORDS SUMMARY | ~2019-11-28 | XMS | Encounter Summary ---
Demographics + + + | Address | [address] | | | [place] [address] | + + + | Home Phone | | + + + | Preferred Language | Unknown | + + + | Marital Status | | + + + | Mormon Affiliation | Unknown | + + + | Race | Unknown | + + + | Ethnic Group | Unknown | + + + Author + + + | Author | [facility] | | | and [place] | + + + | Organization | [facility] | | | [...] Team Providers + +------+ + | Care Councilman Name | Role | Phone | + [...] | | | pulmonary | [address] | [place] | | | | | disease, | [place] | [place], [place] | | | | | unspecified | [place], [place] | [address] Phone: | | | | | COPD type | [address] | [phone] | | | | | ([facility]) | Phone: | Fax: | | | | | | [phone] | [phone] | | | | | | Fax: | | | | | | | [phone] | | +--------+ + + + + [...] [address] | | | | | ([facility]) | [address] | [address] | | | | | Procedures | [place], | [place] | | | | | CHILDCARE TEACHER | [place] | [address] Phone: | | | | | | [address] | [phone] | | | | | | Phone: | Fax: | | | | | | [phone] | [phone] | | | | | | Fax: | | | | | | | [phone] | | +--------+--------+ + + + + Encounter Details +--------+---------+ + + + | Date | Type | Department | Care Team | Description | +--------+---------+ + + + | 04/09/ | Office | [facility] | Maximilian Abreu | Chronic obstructive | | 2018 | Visit | CARDIOLOGY [address] | MD Jon [address] | pulmonary disease, | | | | [address] [place], | [address] [place] | unspecified COPD | | | | [place] [address] | [place] [address] | type (HCC) (Primary | | | | [phone] | [phone] | Dx) | | | | | [...] BACK SURGERY 1981 Lower back COLONOSCOPY 09/23/2013 [facility] ENDOSCOPY 08/10/2013 [facility] ERCP N/A 08/14/2017 Procedure: ERCP; Surgeon: Jamey Hdz MD; Location: [facility] MEDICAL PROCEDURE UNIT HIP FRACTURE SURGERY [...] OTHER SURGICAL HISTORY Endobiliary stent placed at [facility] Removal of lesion Right 2010 [...] made to ensure accuracy; however, inadvertent computerized cat breeder errors may be pre sent. Electronically signed by: Salvador Abreu MD PhD [facility] 04/09/2019 documented in t his encounter Plan [...]
--- OUTSIDE RECORDS SUMMARY | ~2019-11-28 | XMS | Encounter Summary ---
Demographics + + + | Address | [address] | | | [place] [address] | + + + | Home Phone [...] Team Providers + +------+ + | Care Exercise Equipment Repair Technician Name | Role | Phone | [...] | | | | | [place], | [place], [place] | | | | | [place] [address] | [address] | | | | | [phone] | [phone] | | | | | | | [...]
--- OUTSIDE RECORDS SUMMARY | ~2019-11-28 | XMS | Encounter Summary ---
Demographics + + + | Address | [address] | | | [place] [address] | + + + | Home Phone [...] Providers + +------+ + | Care Hand Brim Ironer Name | Role | Phone | + [...] | | | [place], | [place] [address] | | | | | [place] [address] | [phone] | | | | | [phone] | | | +--------+ + + + [...]
--- OUTSIDE RECORDS SUMMARY | ~2019-11-28 | XMS | Encounter Summary ---
Demographics + + + | Address | [address] | | | [place] [address] | + + + | Home Phone | | + + + | Preferred Language | Unknown | + + + | Marital Status | | + + + | Judaism Affiliation | NON | + + + | Race | White | + + + | Ethnic Group | Not or | + + + Author + + + | Author | [facility] | + + + | Organization | [facility] | + + + | Address | Unknown | + + + | Phone | Unavailable | + + + Support + + +---------+ + | Name | Relationship | Address | Phone | + + +---------+ + | None Per Pt | ECON | Unknown | Unavailable | + + +---------+ + Care Team Providers + +------+ + | Care Triage Clinician Name | Role | Phone | + [...] | | 2018 | | Arrhythmia at [facility] | MD Herson [address] | | | | | [address] | [address] | | | | | [facility] | [place], [place] | | | | | and Healing, | [address] | | | | | [facility] | [phone] | | | | | Floor [place], [place] | | | | | | [address] | | | | | | [phone] | | | +--------+ + + + [...]
--- OUTSIDE RECORDS SUMMARY | ~2019-11-28 | XMS | Encounter Summary ---
Demographics + + + | Address | [address] | | | [place] [address] | + + + | Home Phone [...] Providers + +------+ + | Care Water Analyst Name | Role | Phone | [...] [address] | | | | | [facility] | [facility] | | | | | Hospital Admitting | [place], [place] | | | | | Desk Located on the | [address] | | | | | 9th floor | [phone] | | | | | [place], [place] | | | | | | [address] | | | +--------+---------+ + + + [...] might be differen t from the original. [facility] Discharge [...] and intubated prior to tra nsfer to [facility]. Workup was notable for RUQ U/S [...] Your Medications These medications were sent to [id number] [address] [place] [address] [place] [address] Hours: 9AM-7PM MON - FRI / 9AM-6PM [...] Thank you for entrusting your care to [facility] Internal Medicine. If you have any problems or concerns before you are able to follow up with your Primary Care Provider, please call and ask the strong nitric operator to page the attending physician, Vic Petty MD, wh o was caring for you at discharge. If that physician is not available, ask the strong nitric operator to page the physician precision assembler bench for the Medical Teaching Service. Call us right away if any of the following occur: Recurrent abdominal pain Shaking chills or night sweats Other Discharge Orders and Instructions You will be called by the [facility] GI service within the next week to schedule a repeat appoint ment for ERCP and possible stent removal. Home Health Referral after Hospitalization Comments: I certify that this patient is under my care and that I, or Nurse Practitioner or Physician Director Data Architecture working with me, had a face to face encounter with this patient on 06/30/2017 On behalf of Attending Physician: Vic Petty MD I am ordering and certify that the following services are medically necessary home health [facility] Home Health Physical Therapy Evaluate and Treat I certify that the patient is homebound based on the following clinical findings Post-hospi tono weakness, decreased strength and endurance, and tires easily with minimal exertion Follow Up: Schedule the following appointment(s) when you get home DARYL MATHEWS MD . Specialty: Internal Medicine Contact information [facility] [address] [place] [address] [address] [facility] [id number] Discharge Physical Exam: Last 24 hour min/max [...] Acute respiratory failure with hypoxia ([facility]) Please refer to the resident discharge summary for additional details. Vic Petty MD, PhD Clinical Hospitalist and Medicine Teaching Services [facility] Pager [phone] I have spent 35 minutes with the [...] might be different from bella landin. PHYSICIAN BECK OPERATOR STUDENT PROGRESS NOTE FOR EDUCATIONAL PURPOSES ONLY [...] Q2H PRN ipratropium-albuterol 3 mL Q6H PRN tluosimj-uqfphxi-gkntfutp-zinc QID PRN oxyCODONE (immediate release) 2.5-5 mg [...] IV/Airways/Catheters: PIV Code status: FULL SHAHEEN Oconnell-S [facility] Physician Director Data Architecture Program 06/29/17 Kang Zhang MD - 06/29/2017 [...] due to aspiration requiring intubation, transferred to [facility] MICU. Here found to have klebsiella [...] Clinical Hospitalist and Medicine Teaching Services [facility] Pager [phone] I have spent 26 minutes with the [...] interval not displayed. Micro: BLOOD CULTURE WORKUP [[id number]] (Abnormal) [facility] Collected: 06/26/17 0939 Lab [...] Hospital Problems 1) *Septic shock ([facility]) 2) Choledocholithiasis 3) Acute cholangitis 4) Klebsiella sepsis ([facility]) 5) Aspiration pneumonitis ([facility]) 6) S/P ERCP 7) COPD (chronic obstructive pulmonary disease) ([facility]) 8) Essential hypertension Resolved Hospital Problems 9) Septic shock ([facility]) 10) Non-ST elevation myocardial infarction (NSTEMI), type 2 ([facility]) 11) Acute respiratory failure with hypoxia ([facility]) Assessment: William Burns is a [...] Primary Surrogate Decision Maker Sharon Rodriguez Daughter [phone] Dimas Xavier MD Internal Medicine, PGY-3 #[id number] Louis Hernandez MD - 06/28/2017 2:26 PM [...] management as outpatient (pt prefers facility near [place]) --> if develops post ERCP complications or [...] Horne - 06/28/2017 7:47 AM PST PHYSICIAN BECK OPERATOR STUDENT PROGRESS NOTE FOR EDUCATIONAL PURPOSES ONLY [...] Q2H PRN ipratropium-albuterol 3 mL Q6H PRN rgpgeigk-lwfhzpt-pzshtqms-zinc QID PRN oxyCODONE (immediate release) 2.5-5 mg [...] on klebsiella cultures for sensitivity. Spoke with Benefits Manager at [facility] @1330, N o sensitivity results yet from [...] IV/Airways/Catheters: PIV Code status: FULL SHONDA OconnellS [facility] Physician Director Data Architecture Program 06/28/17 Alisha Rai M D - [...] 86 87 78 HCO3 22 24 23 [id number] 24 25 24 W4CWOUKI 96.4 97.0 96.8 FIO2 0.80 0.25 0.21 [...] in the patient's condition). ALISHA MAYNARD MD [facility] [address] [place] [address] Camilo Amaya MD - 11/2017 6:00 AM PST [facility] MEDICAL ICU - PROGRESS NOTE Hospital [...] 6.5 mL/Kg (459.6 mL) RR: 22 bpm Franklin BW: 70.7 kg FiO2 21 fraction of [...] 87 78 HCO3 -- 22 24 23 AGP6UWC6 -- 108* 348 371 VBGPH 7.27* -- [...] Primary Surrogate Decision Maker Sharon Rodriguez Daughter [phone] This patient was staffed with Dr. Maynard, [...] duct clearance Lyla Maldonado MD Gastroenterology Pager [phone] - Virginia Cerna MD - 06/26/2017 4:38 PM PSTFormatting of this note might be different from the origi nal. PRE PROCEDURE NOTE: MR# [id number] Subjective: William Burns is a 82 y.o. [...] 4 hours. Concern for choledocholithiasis. Transferred t [facility] this morning. Has history of COPD [...] Anesthesiology present and reviewed status of patient [facility] GI attending. Agreed to proceed with [...] results for input(s): PH, PCO2, PO2, HCO3, JALIQ3PBQ, A3QYEDAG, V3VHVUURW, FIO2 in the l ast 72 hours. [...] in the patient's condition). ALISHA MAYNARD MD [facility] [address] [place] [address] documented in this enco unter Plan of [...] | + +--------+ + + + | RE-FR-SZS-HB,POC RT | Urgent | 06/26/2017 | | [...] + + + | ECG | Short OK interval | | [facility] | | [...] OF | [address] | [place], [place] | | | CARDIOLOGY | [address] | [address] | | + + + + + [...] | + + + + + | [facility] | [address] | [place] [address] | | | SERVICES, CORE | RICHARD [...] | + + + + + | [facility] | [address] | [place] [address] | | | SERVICES, CORE | [address]ARK [...] | | | LABORATORY | | | TRISTANIAN | | | SERVICES, | | | [...] | + + + + + | [facility] | [address] | [place] [address] | | | SERVICES, CORE | RICHARD [...] LABORATORY | [address] | [place] [address] | | | SERVICES, CORE | PARK [...] Note | + + | Service Account, Earlier Media In Interface - 06/28/2017 5:02 PM PST [...] MARQU[facility] | [address] | [place], [place] | | | DILAN TURNER OF CARE | [facility] | [address] | | | TESTS | | | [...] | + + + + + | [facility] | [address] | [place] [address] | | | SERVICES, CORE | PARK [...] LABORATORY | [address] | [place] [address] | | | SERVICES, CORE | RICHARD [...] | | | LABORATORY | | | TRISTANIAN | | | SERVICES, | | | [...] | + + + + + | [facility] | [address] | [place] [address] | | | SERVICES, CORE | PARK [...] LABORATORY | [address] | [place] [address] | | | SERVICES, CORE | RICHARD [...] BETTINA TOBAR | [address] | [place], [place] | | | DILAN TURNER OF CARE | [address] | [address] | | | TESTS | | | [...] | + + | Service Account, Shana Foodlve In Interface - 06/28/2017 10:17 AM PST [...] | Address | City/State/[facility] | Phone Number | | Organization | [...] TOBAR | [address] | [place], [place] | | | DILAN TURNER OF CARE | [address] | [address] | | | TESTS | | | [...] AMADOU | [address] | [place], [place] | | | DILAN TURNER [place] | [address] | [address] | | | TESTS | | | [...] | | | LABORATORY | | | TRISTANIAN | | | SERVICES, | | | [...] | + + + + + | [facility] | [address] | [place] [address] | | | SERVICES, CORE | RICHARD [...] | + + + + + | [facility] | [address] | [place] [address] | | | SERVICES, CORE | RICHARD [...] | + + + + + | [facility] | [address] | [place] [address] | | | SERVICES, CORE | PARK [...] LABORATORY | [address] | [place] [address] | | | SARA, YOKASTA | [address] [...] | + + + + + | [facility] | [address] | [place] [address] | | | SERVICES, CORE | RICHARD [...] (H) | 70 - 99 mg/dL | [facility] - | | | GLUCOSE, | [...] + + + | BETTINA TOBAR | [address] | [place], [place] | | | [facility] | [address] | [address] | | | TESTS | | | [...] LABORATORY | [address] | [place] [address] | | | SERVICES, CORE | PARK [...] [facility] | | | GRAVITY | [facility] | | LABORATORY | | | | [...] | + + + + + | [facility] | [address] | [place] [address] | | | YOKASTA RUIZ | [address] | | | + + + + + ERCP (06/27/2017 6:38 AM PST) + + | Specimen | + + | | + + + + + | Narrative | Performed At | + + + | MRN: | [facility] | | [id number] Date: 06/27/2017Patient Name: William Nair #: | ENDOSCOPY | | [id number] of : 5CSN: [id number] Type: | | | InpatientRoom: SORProcedure: ERCPIndications: | | | For therapy of ascending cholangitis; 82 yo M with | | | sepsis, elevated LFTs and US showing mary dil and 1.3 cm | | | CBDProviders: BRINTHA | | | Thompson MALDONADO MD (Doctor), JORDY SOLANO, | | | RN (Nurse), ESTELA DAMIAN RN (Health Information Technologist)Referring MD: | | | Requesting Provider: Medicines: [...] The | | | Olympus TJF-Q180V Duodenoscope #[id number] was | | | introduced through the [...] with acute | | | cholangitis. The square shear operator film was normal. The esophagus was | [...] 6:38 [facility] Letter to: DARYL MATHEWS MD | [...] + | MRN: | [facility] | | [id number] Date: 06/27/2017Patient Name: William Nair #: | ENDOSCOPY | | [id number] of : 1935SN: [id number] Type: | | | InpatientRoom: SORProcedure: ERCPIndications: | | | For therapy of ascending cholangitis; 82 yo M with | | | sepsis, elevated LFTs and US showing mary dil and 1.3 cm | | | CBDProviders: BRINTHA | | | Thompson MALDONADO MD (Doctor), JORDY SOLANO, | | | RN (Nurse), ESTELA DAMIAN RN (Health Information Technologist)Referring MD: | | | Requesting Provider: Medicines: [...] The | | | Olympus TJF-Q180V Duodenoscope #[id number] was | | | introduced through the [...] with acute | | | cholangitis. The square shear operator film was normal. The esophagus was | [...] 6:38 [facility] Letter to: DARYL MATHEWS MD | [...] | + + + + + | [facility] | [address] | [place] [address] | | | SERVICES, CORE | [address] | | | + + + + + MAGNESIUM, PLASMA (06/27/2017 12:43 AM PST) + +-------+ + + + | Component | Value | Ref Range | Performed | Pathologist | | | | | At | Signature | + +-------+ + + + | MAGNESIUM,P | 2.3 | 1.6 - 2.6 mg/dL | [facility] | | | LASMA | | | [...] LABORATORY | [address] | [place] [address] | | | SARA, YOKASTA | RICHARD [...] | + + + + + | [facility] | [address] | [place] [address] | | | SERVICES, YOKASTA | RICHARD [...] | | | LABORATORY | | | TRISTANIAN | | | SERVICES, | | | [...] | + + + + + | [facility] | [address] | [place] [address] | | | SERVICES, YOKASTA | RICHARD [...] + + | ECG | Borderline prolonged OK | | [facility] | | | [...] OF | [address] | [place], [place] | | | CARDIOLOGY | [address] | [address] | | + + + + + [...] Note | + --------+ | Service Account, RadiNXT-ID Res In Interface - 06/28/2017 9:20 AM [...] | + + + + + | [facility] | [address] | [place] [address] | | | SERVICES, CORE | RICHARD [...] (H) | 70 - 99 mg/dL | [facility] - | | | GLUCOSE, | [...] TOBAR | [address] | [place], [place] | | | DILAN TURNER OF CARE | [address] | [address] | | | TESTS | | | [...] Note | + + | Service Account, Earlier Media In Interface - 06/27/2017 9:07 AM PST [...] - [facility] | [address] | [place], [place] | | | DILAN TURNER [facility] | [address] | [address] | | | TESTS | | | [...] | [facility] OF | [address] | [place], [place] | | | CARDIOLOGY | [address] | [address] | | + + + + + [...] correct patient, procedure, | | | equipment, community support professional and site/side marked as required. | | [...] | | | | | | Pathology ResidentIlliopolis | | | | | | Louis [...] number | | | | | | [id number].A. Bile duct, | | | | | [...] | + + + + + | [facility] | [address] | [place] [address] | | | PATHOLOGY | [address] [...] correct patient, | | | procedure, equipment, community support professional and site/side marked as required. | | [...] modified Seldinger technique (a | | | wqolytbq-gshc-cyt-cmltkb-vrdd-yzsi-ldsgcys-ycz-gmyyrczv) was used for | | | vessel [...] LABORATORY | [address] | [place] [address] | | | YOKASTA RUIZ | RICHARD [...] | + + + + + | [facility] | [address] | [place] [address] | | | SERVICES, CORE | RICHARD [...] | + + + + + | [facility] | [address] | [place] [address] | | | SERVICES, CORE | RICHARD [...] LABORATORY | [address] | [place] [address] | | | SERVICES, YOKASTA | [address] [...] | | | LABORATORY | | | TRISTANIAN | | | SERVICES, | | | [...] | + + + + + | [facility] | [address] | [place] [address] | | | SERVICES, CORE | [address] [...] DEPT OF | [address] | [place], [place] | | | CARDIOLOGY | [address] | [address] | | + + + + + [...] LABORATORY | [address] | [place] [address] | | | SERVICES, CORE | [address] [...] | + + + + + | [facility] | [address] | [place] [address] | | | SERVICES, CORE | RICHARD [...] | + + + + + | [facility] | [address] | [place] [address] | | | SERVICES, CORE | RICHARD [...] | + + + + + | [facility] | [address] | [place] [address] | | | SERVICES, CORE | RICHARD [...] Note | + ----+ | Service Account, Earlier Media In Interface - 06/26/2017 12:57 PM PST [...] Note | + + | Service Account, Earlier Media In Interface - 06/26/2017 12:55 PM PST [...] LABORATORY | [address] | [place] [address] | | | SERVICES, | [address] [...] LABORATORY | [address] | [place] [address] | | | SERVICES, | [address] [...] | + + + + + | [facility] | [address] | [place] [address] | | | SERVICES, | [address] [...] + + + | ECG | Prolonged OK interval | | [facility] | | [...] OF | [address] | [place], [place] | | | CARDIOLOGY | [address] | [address] | | + + + + + [...] | | Growth in Anaerobic bottle | [place] | + + + + + + + + | Performing | Address | City/State/Zipcode | Phone Number | | Organization | | | | + + + + + | [employer] [facility] - | [address] | [place] [address] | | | [place] | | | [...] Klebsiella oxytoca Growth in Aerobic bottle | [place] - | | Growth in Anaerobic bottle [...] + | [facility] - | [address] | [place] [address] | | | [place] | | | [...] | + + + + + | [facility] | [address] | [place] [address] | | | YOKASTA RUIZ | [address]ARD [...] | + + + + + | [facility] | [address] | [place] [address] | | | SERVICES, CORE | RICHARD [...] | + + + + + | [facility] | [address] | [place] [address] | | | SERVICES, CORE | RICHARD [...] | + + + + + | [facility] | [address] | [place] [address] | | | SERVICES, CORE | [address] [...] | + + + + + | [facility] | [address] | [place] [address] | | | SERVICES, CORE | [address] | | | + + + + + TROPONIN I, PLASMA (06/26/2017 9:30 AM PST) + +-------+ + + + | Component | Value | Ref Range | Performed | Pathologist | | | | | At | Signature | + +-------+ + + + | TROPONIN I | 0.33 | <0.80 ng/mL | [facility] | | | | | | LABORATORY [...] | + + + + + | [facility] | [address] | [place] [address] | | | SERVICES, CORE | RICHARD [...] [facility] | [address] | [place] [address] | | | SERVICES, CORE | [address] [...] | | | LABORATORY | | | TRISTANIAN | | | SERVICES, | | | [...] + | [facility] | [address] | [place] [address] | | | SERVICES, CORE | [address] [...] | + + + + + | L3 | [address] | [place] [address] | | | SERVICES, CORE | [address] | | | + + + + + HQ-RX-BBU-HB,POC RT (06/26/2017 8:55 AM PST) + + [...] [facility] | [address] | [place], [place] | | | DILAN TURNER OF CARE | [address] | [address] | | | TESTS | | | [...] | | | | NEEDED, Starting [facility] 06/28/17 at | | | | [...]
--- OUTSIDE RECORDS SUMMARY | ~2019-11-28 | XMS | Encounter Summary ---
Demographics + + + | Address | [address] | | | [place] [address] | + + + | Home Phone | | + + + | Preferred Language | Unknown | + + + | Marital Status | | + + + | Uatsdin Affiliation | NON | + + + [...] Team Providers + +------+ + | Care Postulant Name | Role | Phone | + [...] | Procedural Unit at | MD Rashida [address] | (ERCP f/u) | | | | Mikayla Borges [address] | | | | | [address] | [place], [place] | | | | | [place], | [address] | | | | | 4th floor [place], | [phone] | | | | | [place] [address] | | | | | | [phone] | | | +--------+ + + + [...]
--- OUTSIDE RECORDS SUMMARY | ~2019-11-28 | XMS | Encounter Summary ---
Demographics + + + | Address | [address] | | | [place] [address] | + + + | Home Phone [...] Team Providers + +------+ + | Care Security And Privacy Consultant Name | Role | Phone | [...] | | [address] | [place], [place] | | | | | [address], | [address] | | | | | 4th floor [place], | [phone] | | | | | [place] [address] | | | | | | [phone] | | | +--------+ + + + [...]
--- OUTSIDE RECORDS SUMMARY | ~2019-11-28 | XMS | Encounter Summary ---
Demographics + + + | Address | [address] | | | [place] [address] | + + + | Home Phone [...] Team Providers + +------+ + | Care Dairy Cattle Farmer Name | Role | Phone | [...] Medicine at Offsite | [address] | ([facility] Admission) | | | | [address] | [address] | | | | | [place], | [place], [place] | | | | | [place] [address] | [address] | | | | | [phone] | [phone] | | | | | | | [...] Recinos MD - 06/11/2018 10:00 AM PST [facility] Facility Intake Exam - [facility] Alan Thomas "Carlos" James Burns is a 83 y.o. male with a PMH significant for prior L THR, SVT, HT N, COPD (non-O2 dependent), prior UGIB. He is admitted to [facility] for skilled therapy following a hospitalization at [facility] from 05/31 to 06/06 for Left Acetabular Fracture in the setting of a prior THR. Hospital course was significant for: Carlos was transferred to [facility] from [facility] on 05/31 for management of a [...] independent at baseline. He was brought to [facility] given his medical comorbidities and peyton rn [...] to visit (already scheduled for 07/02/[address] [facility] Ortho ). His course was c/b bloating [...] blood in stool, unlikely that EGD would record changer tester. He was also seen by the Geriatrics [...] Diagnosis COPD (chronic obstructive pulmonary disease) ([facility]) Essential hypertension Physical deconditioning Atrial fibrillation ([facility]) Diverticulosis of colon GERD (gastroesophageal reflux disease) Raynaud's syndrome Right fascicular block Closed fracture of anterior column of left acetabulum with routine healing HTN (hypertension) Past Medical History: Diagnosis Date Acute cholangitis 06/27/2017 Aspiration pneumonitis ([facility]) 06/28/2017 Atrial fibrillation ([facility]) 08/13/2017 Choledocholithiasis 06/26/2017 Closed fracture of anterior column of left acetabulum with routine healing 06/11/2018 COPD (chronic obstructive pulmonary disease) ([facility]) Diverticulosis of colon 01/01/2007 Overview: Note: Unchanged GERD (gastroesophageal reflux disease) 08/13/2017 GI bleed 2013 esophageal ulcer s/p clipping 2013 HTN (hypertension) Klebsiella sepsis ([facility]) 06/27/2017 Normocytic anemia Hgb around 11 in 2013 Prediabetes Raynaud's syndrome 05/23/2017 Right fascicular block 05/23/2017 S/P ERCP 06/28/2017 SVT (supraventricular tachycardia) ([facility]) unclear hx. "Possible SVT" per chart in [...] (has used x 2 since arriving at [facility]) - Continue Mucinex BID per home [...] PGY1 GENERAL INTERNAL MEDICINE AT OFFSITE Pager: [phone] Associated attestation - Crystal Evans MD - [...] the following additions/clarifications/exceptions: none Crystal Evans MD [facility] Division of Internal Medicine and Geriatrics [...]
--- OUTSIDE RECORDS SUMMARY | ~2019-11-28 | XMS | Encounter Summary ---
Demographics + + + | Address | [address] | | | [place] [address] | + + + | Home Phone [...] Team Providers + +------+ + | Care Bag Presser Name | Role | Phone | + [...] | | | | | | | ID ERCP DX | | | | | | | COLLECTION | | | | | | | SPECIMEN | | | | | | | BRUSHING/WAS | | | | | | | JOSE ID | | | | | | | ERCP | | | | | | | BILIARY/PANC | | | | | | | DUCT STENT | | | | | | | EXCHANGE | | | | | | | W/DIL&WIRE | | | | | | | ID | | | | | | | [...] + + | 08/14/ | Hospital | [facility] | Jamey Hdz | | | 2018 | Encounter | MED CTR XRAY [address] | MD Sarkis [address] | | | | | [place] | [address] [place] | | | | | [place] [address] | [place] [address] | | | | | [phone] | [phone] | | | | | | | [...]
--- OUTSIDE RECORDS SUMMARY | ~2019-11-28 | XMS | Encounter Summary ---
Demographics + + + | Address | [address] | | | [place] [address] | + + + | Home Phone [...] Team Providers + +------+ + | Care Account Adjuster Name | Role | Phone | [...] | | | | | | [facility] | | | | | | Hospital Admitting | | | | | | Desk Located on the | | | | | | 9th floor | | | | | | [place], [place] | | | | | | [address] | | | +--------+ + + + [...]
--- OUTSIDE RECORDS SUMMARY | ~2019-11-28 | XMS | Encounter Summary ---
Demographics + + + | Address | [address] | | | [place] [address] | + + + | Home Phone [...] Team Providers + +------+ + | Care Earth Auger Operator Name | Role | Phone | [...] Order | [address]ay[address] [facility], | | | | | [address] | [place] [address] | | | | | [address], | [phone] | | | | | 4th floor [place], | | | | | | [place] [address] | | | | | | [phone] | | | +--------+ + + + [...] + | MRN: | [id number] | | [id number] Date: 06/27/2017Patient Name: William Nair #: | ENDOSCOPY | | [id number] of : 1935SN: [id number] Type: | | | InpatientRoom: SORProcedure: ERCPIndications: | | | For therapy of ascending cholangitis; 82 yo M with | | | sepsis, elevated LFTs and US showing mary dil and 1.3 cm | | | CBDProviders: BRVALENTINA | | | Thompson MALDONADO MD (Doctor), JORDY SOLANO, | | | RN (Nurse), ESTELA DAMIAN, SARI (Residential Treatment Staff)Referring MD: | | | Requesting Provider: Medicines: [...] The | | | Olympus [id number] Duodenoscope #[id number] was | | | introduced through the [...] with acute | | | cholangitis. The plasma cutting machine operator film was normal. The esophagus was [...] Initiated On: | | | 06/27/2017 6:38 [facility] Letter to: LANA MATHEWS MD | | [...]
--- OUTSIDE RECORDS SUMMARY | ~2019-11-28 | XMS | Encounter Summary ---
Demographics + + + | Address | [address] | | | [place] [address] | + + + | Home Phone | | + + + | Preferred Language | Unknown | + + + | Marital Status | | + + + | Amish Affiliation [...] Team Providers + +------+ + | Care Dental Director Name | Role | Phone | [...] | | | | | [address] [place], | [place], [place] | | | | | [place] [address] | [address] | | | | | [phone] | [phone] | | | | | | | [...] PT other exercises he can practice, given nbu-ldciny-lzfttec status # Insomnia, sleep-onset - Sleep hygiene: [...] foll owing additions/clarifications/exceptions: none Crystal Evans MD [facility] Division of Internal Medicine and Geriatrics documented in this encounter Plan of Treatment Not on filedocumented as of this encounter Visit Diagnoses Not on filedocumented in this encounter
--- OUTSIDE RECORDS SUMMARY | ~2019-11-28 | XMS | Encounter Summary ---
Demographics + + + | Address | [address] | | | [place] [address] | + + + | Home Phone [...] Team Providers + +------+ + | Care Cleaner Signs Name | Role | Phone | + [...] [address] | | | | | [place], [place] | [place], [place] | | | | | [address] | [address] | | | | | [phone] | [phone] | | | | | | | [...]
--- OUTSIDE RECORDS SUMMARY | ~2019-11-28 | XMS | Encounter Summary ---
Demographics + + + | Address | [address] | | | [place] [address] | + + + | Home Phone [...] Team Providers + +------+ + | Care Circulation Crew Leader Name | Role | Phone | [...] [address] | | | | | [place], | [address] [place] | | | | | [place] [address] | [place] [address] | | | | | [phone] | [phone] | | | | | | | [...]
--- OUTSIDE RECORDS SUMMARY | ~2019-11-28 | XMS | Encounter Summary ---
Demographics + + + | Address | [address] | | | [place] [address] | + + + | Home Phone | | + + + | Preferred Language | Unknown | + + + | Marital Status | | + + + | Episcopalian Affiliation | Unknown | + + + [...] Team Providers + +------+ + | Care Burner Technician Name | Role | Phone | [...] + + | 08/01/ | Telephone | [facility] | Jamey Hdz | Procedure (ERCP) | | 2018 | | GASTROENTEROLOGY | MD Sarkis [address] | | | | | [address] [facility] | [address] [facility] | | | | | [address] | [facility] [place] [address] | | | | | [address] | [phone] | | | | | [phone] | | | +--------+ + + + [...]
--- OUTSIDE RECORDS SUMMARY | ~2019-11-28 | XMS | Encounter Summary ---
Demographics + + + | Address | [address] | | | [place] [address] | + + + | Home Phone | | + + + | Preferred Language | Unknown | + + + | Marital Status | | + + + | Worship Affiliation | Unknown | + + + | Race | Unknown | + + + | Ethnic Group | Unknown | + + + Author + + + | Author | [facility] | | | and [place] | + + + | Organization | [facility] | | | [...] Providers + +------+ + | Care Tubing Tester Name | Role | Phone | + +------+ + PCP | Unavailable | + +------+ + Encounter Details +--------+ + + + + | Date | Type | Department | Care Team | Description | +--------+ + + + + | 08/10/ | Hospital | [facility] | Sudeep Sarabia, | GI bleed; Lower | | 2013 - | Encounter | [facility] | MD Carlos [address] | abdominal pain; HTN | | | | CLINICAL DECISION | [place] [id number] | (hypertension) | | 08/13/ | | UNIT [facility] | [phone] | | | 2013 | | [place], [place] | | | | | | [address] | | | | | | [phone] | | | +--------+ + + + [...] 1735 Date of Service: 08/13/1343 Status: Signed Design Engineer Products: Iban Medina MD (Physician) Related Notes: Original Note by Iban Medina MD (Physician) filed at 08/13/13 1524 HOSPITALIST DISCHARGE SUMMARY Patient ID: William Hurst [id number] 78 y.o. 1935 Admit date: 08/10/2013 Discharge [...] loss. The patien t was brought to [facility] and was transferred to [facility] for a GI evaluation. Dr. Ball from [...] endoscopy the patient was transferred [facility] the [facility]. Serial hemoglobin and hematocrit were [...] are the prescriptions that you need to picker and packer. You may get these medications from any pharmacy. furosemide 40 MG tablet omeprazole 20 MG capsule Activity: activity as tolerated Diet: cardiac Follow up: Daryl Mathews MD [address] [place] [address] [place] [address] Schedule an appointment as soon as possible for a visit Perry Ball MD [address] [facility] [address] In 2 weeks Discharge took approximately 40 [...] Date of Service: 08/13/13 1220 Status: Signed Design Engineer Products: Danielle Rubin RN (Registered Nurse) Pt ready [...] (none) Author Type: Registered Nurse Filed: 08/12/13 1502 Date of Service: 08/12/13 1502 Status: Addendum Design Engineer Products: Diane Hightower RN (Registered Nurse) Related Notes: [...] Physician Filed: 08/12/13 1313 Date of Service: 08/12/13 Status: Signed Design Engineer Products: Iban Medina MD (Physician) [facility] Service: Hospitalist Progress Note Hospital Day: LOS: [...] hours No results found for this basename: PHART:3,PO2ART:3,NEX6PTK:3,Z6SFVADD:3,BEART:[address] 168 hours Lab [...] 08/12/131929 Date of Service: 08/11/131913 Status: Signed Design Engineer Products: Perry Ball MD (Physician) Related Notes: Original Note by Perry Ball MD (Physician) filed at 08/11/13 1 926 [facility] Service: Gastroenterology Progress Note Hospital Day: LOS: [...] 08/11/131929 Date of Service: 08/11/131903 Status: Addendum Design Engineer Products: Alexys Nolan MD (Physician) Related Notes: Original Note by Alexys Nolan MD (Physician) filed at 08/11/131909 [facility] Service: Hospitalist Progress Note Hospital Day: LOS: [...] Date of Service: 08/11/13 0657 Status: Signed Design Engineer Products: Milton Khoury RN (Registered Nurse) Pt has [...] 08/10/132216 Date of Service: 08/10/132216 Status: Signed Design Engineer Products: Lashawn Soria RPH (Pharmacist) Clinical Pharmacy Note: [...] Author: MICHAEL Mc Service: (none) Author Type: Operating Room Assistant Filed: 08/10/132133 Date of Service: 08/10/132130 Status: Signed Design Engineer Products: MICHAEL Mc (Operating Room Assistant) 08/10/132129 Discharge Planning Evaluation Admitting Diagnosis GIB Readmission No Living Arrangements Spouse/significant other Support Systems Spouse/significant other;Children Type of Residence Private residence House type House-1 story Bathrooms on 1st Floor 1-Full Independent with ADL's Yes Independent with Mobility Yes Home Care Services No Caregiver after Discharge Yes Caregiver Name Camryn Hurst Relationship to Patient Spouse Phone number [phone] Mental Status Oriented Power of Edi Developer Yes Power of Edi Developer Name Camryn Hurst Power of Edi Developer Resources Financial concerns No Transportation issues No Patient/Family concerns No Prescription Plan Yes Met with pt to discuss discharge planning. Pt is a 78 y.o., male who lives with his in a private residence in [place]. Pt is independent and very active. Pt reports he mows h is own grass and cares for his chickens. Pt is independent with ADLs, uses no DME, has never used HH. Pt is not on O2/cpap/bipap. He is not engaged in o/p medical services. Pt reports his will come to [facility] in the morning. Pt has no family in [facility]. His Dtr Radha Renteria lives near him in [place]. Pt denies d/c needs at this time. Patient's PCP is: DARYL MATHEWS Patient's insurance: [facility] care Coverage concerns: n/a Medication coverage/concerns: [...] Service: (none) Author Type: Physician Filed: 08/10/13 4181 Date of Service: 08/10/131928 Status: Signed Design Engineer Products: Sudeep Sarabia MD (Physician) Related Notes: Original Note by Sudeep Sarabia MD (Physician) filed at 08/10/132024 [facility] Service: Hospitalist Admission History & Physical Date [...] initially the hospital that was admitting him [facility] the patient might have had lower [...] with p.r.n. doses of Prilosec and perhaps fwab-bpa-rpydkgp Tums. He sta denise that his indigestion occurs when he eats food such as tomato sauce containing foods or s picy sauce. These symptoms have been ongoing for the past 10 years or so. There was no escal ation of these symptoms in the recent past. The patient was initially brought by emergency room to [facility]. Due to lack of beds, as reported by the patient, he was transferred to [facility] for further evaluation. His CMP from [facility] in [place] showed sodium 138, potass ium 4.7, chloride [...] was 17.8 (normal 4.5 to 9.8) at [facility] lab. Troponin I was less than 0.1, which was negative. A 12-lead EKG at [facility] showed normal sinus rhythm with a rate of 66 beats per minute, incomplete right bundle bran ch block, no acute ST or T-wave changes to suggest ischemic process. The patient was evaluated at [facility] Emergency Room by . T he patient had no further episodes of hematemesis or lower gastrointestinal bleeding. His r epeat H and H were 11.8 and 35.6 respectively. CMP was fairly unchanged from the one obtaine d at [facility]. the patient is being admitted to our [...] male who was transferred via EMS from [facility] in [place] with the followin. Gastrointestinal bleed. The patient [...] 193 Date of Service: 08/10/131921 Status: Signed Design Engineer Products: Perry Ball MD (Physician) Related Notes: Original Note by Perry Ball MD (Physician) filed at 08/10/13 1 059 [facility] Service: Gastroenterology Initial Consult Note Moderate Sedation [...] his usual state of health until this [facility]. The patient had breakfast without having any problem. He later felt bad, which was nonsp ecific. At about 10:00 a.m., the patient had an urge to vomit. He went to the rest room. He felt dizzy, sweating, and then he vomited red blood clots once. After that, the patient was brought to [facility]. He had blood test done. The blood test done and CT scan of the abdomen and pelvis were done. He was then sent to [facility] for fur ther evaluation. At [facility], the patient had pain across the umbilicus. [...] 08/10/131919 Date of Service: 08/10/131919 Status: Signed Design Engineer Products: Francisco Hall RN (Registered Nurse) GI doctor at bedside for eval. Francisco Hall RN 08/10/131919 onver audrey Transaction, Provider Unknown - 08/10/2013 6:19 PM PDT ED Notes by Francisco Hall RN at 08/10/131818 Author: Francisco Hall RN Service: (none) Author Type: Registered Nurse Filed: 08/10/131818 Date of Service: 08/10/131818 Status: Signed Design Engineer Products: Francisco Hall RN (Registered Nurse) Patient given [...] 08/10/131757 Date of Service: 08/10/131757 Status: Signed Design Engineer Products: Francisco Hall RN (Registered Nurse) Dr. White at bedside. Francisco Hall RN 08/10/131757 Sudeep Edmond MD - 08/10/2013 5:55 PM PDT ED Provider Notes by Sudeep White MD at 08/10/131754 Author: Sudeep White MD Service: (none) Author Type: Physician Filed: 08/13/13 1410 Date of Service: 08/10/131754 Status: Signed Design Engineer Products: Sudeep White MD (Physician) Procedure Orders: 1. POCT occult blood stool [[id number]] ordered by Christos Faith at 08/10/13 1802 [facility] Department of Emergency Medicine Provider Row Name 08/10/13 1614 08/10/13 1543 Pre-arrival Provider Pre-arrival Provider Another ED [facility] Pertinent History and Concerns pt was going [...] male who was transferred to ED from [facility] with a CC of hematemesis, for [...] Procedure: ESOPHAGOGASTRODUODENOSCOPY; Surgeon: Perry Ball MD; Location: [facility] ENDOSCOPY; Service: Gastroenterology; Laterality: N/A; [...] Department Course 5:57 PM Pt transferred from [facility] with upper GI bleed and hematemesis. I will order for repeat blood count, check liver enzymes, INR, aPTT, GI consult, and arrange for pt admi ssion. 6:02 PM Hemoccult performed. (See procedure for details). 6:08 PM Reviewed work-up and records from [facility]. They diagnosed the pt with having an Upper GI bleed, which is not supported by the hx or exam. CT of abd was normal. Lab work from [facility] was not significant. Mildly anemic. I [...] Value Ref Range Date/Time Complete Metabolic Panel [[id number]] (Abnormal) Collected:08/10/131814 Order Status:Completed Updated:08/10/131853 Specimen Information:Blood [...] 65 U/L EGFR >60 >60 mL/min/1.73m2 Lipase [[id number]] (Abnormal) Collected:08/10/131814 Order Status:Completed Updated:08/10/131853 Specimen Information:Blood LIPASE 66 (L) 73 - 393 U/L CBC w Auto Diff [[id number]] (Abnormal) Collected:08/10/131814 Order Status:Completed Updated:08/10/131839 Specimen Information:Blood [...] RBC AND PLT MORPHOLOGY APPEAR NORMAL PT [[id number]] Collected:08/10/131814 Order Status:Completed Updated:08/10/131838 Specimen Information:Blood INR 1.1 PTT [[id number]] (Abnormal) Collected:08/10/131814 Order Status:Completed Updated:08/10/131838 Specimen Information:Blood [...] visit [address] [place] [address] Perry Ball MD In 2 weeks [address] [facility] [address] Discharge Medications: New Prescriptions OMEPRAZOLE (PRILOSEC) 20 [...] 08/10/131745 Date of Service: 08/10/131744 Status: Addendum Design Engineer Products: Francisco Hall RN (Registered Nurse) Related Notes: [...] 08/10/131744 Date of Service: 08/10/131744 Status: Signed Design Engineer Products: Francisco Hall RN (Registered Nurse) Bed:12
Expected date:
Expected time:
Means of arrival:
Comments:
[facility] onver audrey Transaction, Provider Unknown - 08/10/2013 5:30 PM PDT ED Notes by Rashmi Doe RN at 08/10/131729 Author: Rashmi Doe RN Service: (none) Author Type: Registered Nurse Filed: 08/10/131729 Date of Service: 08/10/131729 Status: Signed Design Engineer Products: Rashmi Doe RN (Registered Nurse) Stable, no change en route Rashmi Doe RN 08/10/131729 docume nted in this encounter Miscellaneous Notes Op Note - Perry Ball - 08/10/2013 9:56 PM PDT Op Note by Perry Ball MD at 08/10/132155 Author: Perry Ball MD Service: Gastroenterology Author Type: Physician Filed: 08/10/132204 Date of Service: 08/10/132155 Status: Addendum Design Engineer Products: Perry Ball MD (Physician) Related Notes: Original Note by Perry Ball MD (Physician) filed at 08/10/13 203 [facility] Service: Gastroenterology ENDOSCOPY SUITE PROCEDURE NOTE Esophagogastroduodenoscopy [...] | Sudeep White MD 08/13/2013 2:10 PM [facility] | EXTERNAL LAB | | [facility] Department of Emergency Medicine Provider Row | [...] male who was transferred to ED from [facility] with a | | | CC [...] Perry Ball MD; | | | Location: [facility] ENDOSCOPY; Service: Gastroenterology; | | | [...] PM | | | Pt transferred from [facility] with upper GI bleed and | | | hematemesis. I will order for repeat blood count, check liver | | | enzymes, INR, aPTT, GI consult, and arrange for pt admission. | | | 6:02 PM Hemoccult performed. (See procedure for details). 6:08 PM | | | Reviewed work-up and records from [facility]. They diagnosed the | | | pt with having an Upper GI bleed, which is not supported by the hx | | | or exam. CT of abd was normal. Lab work from [facility] was not | | | significant. [...] Date/Time Complete Metabolic | | | Panel [[id number]] (Abnormal) Collected:08/10/135 Order | | | Status:Completed [...] | | EGFR >60 >60 mL/min/1.73m2 Lipase [[id number]] (Abnormal) | | | Collected:08/10/131814 Order Status:Completed Updated:08/10/13 | | | 1854 Specimen Information:Blood LIPASE 66 (L) 73 - 393 U/L | | | CBC w Auto Diff [[id number]] (Abnormal) Collected:08/10/131814 | | | Order Status:Completed [...] MORPHOLOGY APPEAR NORMAL | | | PT [[id number]] Collected:08/10/131814 Order Status:Completed | | | Updated:08/10/131838 Specimen Information:Blood INR 1.1 | | | PTT [[id number]] (Abnormal) Collected:08/10/131814 Order | | | Status:Completed [...] for a visit [address] | | | [facility] [address] [place] [address] [place] | | | MD Lanny In 2 weeks [address] [place] [address] | | | [phone] Discharge Medications: New Prescriptions | | | [...] | | | | performed at [facility], [address] | | LAB | | | | [address], | | | | | | [place] [address] | | | | + + + + + + | Non- | 3.58 (L)Comment: Testing | 4.20 - 5.70 | EXTERNAL | | | Red Blood | performed at [facility], [address] | M/uL | LAB | | | Cells | [address], | | | | | Counted | [place] [address] | | | | + + + + + + | Hemoglobin | 11.0 (L)Comment: Testing | 13.2 - 17.0 | EXTERNAL | | | | performed at [facility], [address] | g/dL | LAB | | | | [address], | | | | | | [place] [address] | | | | + + + + + + | Hematocrit, | 33.5 (L)Comment: Testing | 39.0 - 50.0 % | EXTERNAL | | | POC | performed at [facility], [address] | | LAB | | | | [address], | | | | | | [place] [address] | | | | + + + + + + | MCV | 93.6Comment: Testing | 80.0 - 100.0 fl | EXTERNAL | | | | performed at [facility], [address] | | LAB | | | | [address], | | | | | | [place] [address] | | | | + + + + + + | MCH | 30.7Comment: Testing | 27.0 - 34.0 pg | EXTERNAL | | | | performed at [facility], [address] | | LAB | | | | [address], | | | | | | [place] [address] | | | | + + + + + + | MCHC | 32.8Comment: Testing | 32.0 - 35.5 | EXTERNAL | | | | performed at [facility], [address] | g/dL | LAB | | | | [address], | | | | | | [place] [address] | | | | + + + + + + | RDW-CV | 43.3Comment: Testing | 37 - 53 fl | EXTERNAL | | | | performed at [facility], [address] | | LAB | | | | [address], | | | | | | [place] [address] | | | | + + + + + + | Platelet | 186Comment: Testing | 150 - 400 K/uL | EXTERNAL | | | Count | performed at [facility], [address] | | LAB | | | Plasma | [address], | | | | | | [place] [address] | | | | + + + + + + | MPV | 10.1Comment: Testing | fl | EXTERNAL | | | | performed at [facility], [address] | | LAB | | | | [address], | | | | | | [place] [address] | | | | + + + + + + | Differentia | AUTOMATEDComment: | | EXTERNAL | | | l Type | Testing performed at | | LAB | | | | [facility], [address] | | | | | | [place] | | | | | | [address] | | | | + + + + + + | % Segmented | 66.0Comment: Testing | % | EXTERNAL | | | | performed at [facility], [address] | | LAB | | | Neutrophils | [address], | | | | | | [place] [address] | | | | + + + + + + | % | 20.0Comment: Testing | % | EXTERNAL | | | Lymphocytes | performed at [facility], [address] | | LAB | | | | [address], | | | | | | [place] [address] | | | | + + + + + + | % Monocytes | 7.3Comment: Testing | % | EXTERNAL | | | | performed at [facility], [address] | | LAB | | | | [address], | | | | | | [place] [address] | | | | + + + + + + | % | 6.3Comment: Testing | % | EXTERNAL | | | Eosinophils | performed at [facility], [address] | | LAB | | | | [address], | | | | | | [place] [address] | | | | + + + + + + | % Basophils | 0.4Comment: Testing | % | EXTERNAL | | | | performed at [facility], [address] | | LAB | | | | [address], | | | | | | [place] [address] | | | | + + + + + + | Absolute | 5.5Comment: Testing | 1.9 - 7.4 K/uL | EXTERNAL | | | Segmented | performed at [facility], [address] | | LAB | | | Neutrophils | [address], | | | | | | [place] [address] | | | | + + + + + + | Absolute | 1.7Comment: Testing | 1.0 - 3.9 K/uL | EXTERNAL | | | Lymphocytes | performed at [facility], [address] | | LAB | | | | [address], | | | | | | [place] [address] | | | | + + + + + + | Absolute | 0.6Comment: Testing | 0 - 0.8 K/uL | EXTERNAL | | | Monocytes | performed at [facility], [address] | | LAB | | | | [address], | | | | | | [place] [address] | | | | + + + + + + | Absolute | 0.5Comment: Testing | 0 - 0.5 K/uL | EXTERNAL | | | Eosinophils | performed at [facility], [address] | | LAB | | | | [address], | | | | | | [place] [address] | | | | + + + + + + | Absolute | 0.0Comment: Testing | 0 - 0.1 K/uL | EXTERNAL | | | Basophils | performed at [facility], [address] | | LAB | | | | [address], | | | | | | [place] [address] | | | | + + + [...] | | | | performed at [facility], [address] | | LAB | | | | [address], | | | | | | [place] [address] | | | | + + + [...] | | | | | [place] [address] | | | | + + + + + + | K | 3.9Comment: Testing | 3.5 - 4.9 | EXTERNAL | | | | performed at [facility], [address] | mmol/L | LAB | | | | [address], | | | | | | [place] [address] | | | | + + + + + + | Cl | 103Comment: Testing | 99 - 109 mmol/L | EXTERNAL | | | | performed at [facility], [address] | | LAB | | | | [address], | | | | | | [place] [address] | | | | + + + + + + | CO2 | 28Comment: Testing | 23 - 32 mmol/L | EXTERNAL | | | | performed at [facility], [address] | | LAB | | | | [address], | | | | | | [place] [address] | | | | + + + + + + | Anion Gap | 11Comment: Testing | 5 - 20 mmol/L | EXTERNAL | | | | performed at [facility], [address] | | LAB | | | | [address], | | | | | | [place] [address] | | | | + + + + + + | Glucose, | 114 (H)Comment: Testing | 65 - 99 mg/dL | EXTERNAL | | | Fasting | performed at [facility], [address] | | LAB | | | | [address], | | | | | | [place] [address] | | | | + + + + + + | BUN | 14Comment: Testing | 8 - 25 mg/dL | EXTERNAL | | | | performed at [facility], [address] | | LAB | | | | [address], | | | | | | [place] [address] | | | | + + + + + + | Creatinine | 0.89Comment: Testing | 0.70 - 1.30 | EXTERNAL | | | | performed at [facility], [address] | mg/dL | LAB | | | | [address], | | | | | | [place] [address] | | | | + + + + + + | BUN/Creatin | 16Comment: Testing | | EXTERNAL | | | ine Ratio | performed at [facility], [address] | | LAB | | | [address], | | | | | | [place] [address] | | | | + + + + + + | Calcium | 8.6Comment: Testing | 8.5 - 10.2 | EXTERNAL | | | | performed at [facility], [address] | mg/dL | LAB | | | | [address], | | | | | | [place] [address] | | | | + + + + + + | Protein, | 5.7 (L)Comment: Testing | 6.3 - 8.2 g/dL | EXTERNAL | | | Total | performed at [facility], [address] | | LAB | | | | [address], | | | | | | [place] [address] | | | | + + + + + + | Albumin | 3.7Comment: Testing | 3.3 - 4.8 g/dL | EXTERNAL | | | | performed at [facility], [address] | | LAB | | | | [address], | | | | | | [place] [address] | | | | + + + + + + | Globulin | 2.0Comment: Testing | 1.3 - 4.9 g/dL | EXTERNAL | | | | performed at [facility], [address] | | LAB | | | | [address], | | | | | | [place] [address] | | | | + + + + + + | A/G Ratio | 1.9Comment: Testing | 1.0 - 2.4 | EXTERNAL | | | | performed at [facility], [address] | | LAB | | | | [address], | | | | | | [place] [address] | | | | + + + + + + | Bilirubin | 0.8Comment: Testing | 0.1 - 1.5 mg/dL | EXTERNAL | | | Total | performed at [facility], [address] | | LAB | | | | [address], | | | | | | [place] [address] | | | | + + + + + + | ALP, | 36Comment: Testing | 35 - 115 U/L | EXTERNAL | | | External | performed at [facility], [address] | | LAB | | | | [address], | | | | | | [place] [address] | | | | + + + + + + | AST | 12Comment: Testing | 10 - 45 U/L | EXTERNAL | | | | performed at [facility], [address] | | LAB | | | | [address], | | | | | | [place] [address] | | | | + + + + + + | ALT | 12Comment: Testing | 10 - 65 U/L | EXTERNAL | | | | performed at [facility], [address] | | LAB | | | | [address], | | | | | | [place] [address] | | | | + + + [...] | | | | | at [facility], [address] | | | | | | [address], | | | | | | [place] [address] | | | | + + + [...] | | | | | [place] [address] | | | | + + + + + + | Non- | 3.42 (L)Comment: Testing | 4.20 - 5.70 | EXTERNAL | | | Red Blood | performed at [facility], [address] | M/uL | LAB | | | Cells | [address], | | | | | Counted | [place] [address] | | | | + + + + + + | Hemoglobin | 10.6 (L)Comment: Testing | 13.2 - 17.0 | EXTERNAL | | | | performed at [facility], [address] | g/dL | LAB | | | | [address], | | | | | | [place] [address] | | | | + + + + + + | Hematocrit, | 31.8 (L)Comment: Testing | 39.0 - 50.0 % | EXTERNAL | | | POC | performed at [facility], [address] | | LAB | | | | [address], | | | | | | [place] [address] | | | | + + + + + + | MCV | 93.0Comment: Testing | 80.0 - 100.0 fl | EXTERNAL | | | | performed at [facility], [address] | | LAB | | | | [address], | | | | | | [place] [address] | | | | + + + + + + | MCH | 31.0Comment: Testing | 27.0 - 34.0 pg | EXTERNAL | | | | performed at [facility], [address] | | LAB | | | | [address], | | | | | | [place] [address] | | | | + + + + + + | MCHC | 33.3Comment: Testing | 32.0 - 35.5 | EXTERNAL | | | | performed at [facility], [address] | g/dL | LAB | | | | [address], | | | | | | [place] [address] | | | | + + + + + + | RDW-CV | 44.2Comment: Testing | 37 - 53 fl | EXTERNAL | | | | performed at [facility], [address] | | LAB | | | | [address], | | | | | | [place] [address] | | | | + + + + + + | Platelet | 171Comment: Testing | 150 - 400 K/uL | EXTERNAL | | | Count | performed at [facility], [address] | | LAB | | | Plasma | [address], | | | | | | [place] [address] | | | | + + + + + + | MPV | 9.9Comment: Testing | fl | EXTERNAL | | | | performed at [facility], [address] | | LAB | | | | [address], | | | | | | [place] [address] | | | | + + + + + + | Differentia | AUTOMATEDComment: | | EXTERNAL | | | l Type | Testing performed at | | LAB | | | | [facility], [address] | | | | | | [place] | | | | | | [address] | | | | + + + + + + | % Segmented | 69.8Comment: Testing | % | EXTERNAL | | | | performed at [facility], [address] | | LAB | | | Neutrophils | [address], | | | | | | [place] [address] | | | | + + + + + + | % | 19.3Comment: Testing | % | EXTERNAL | | | Lymphocytes | performed at [facility], [address] | | LAB | | | | [address], | | | | | | [place] [address] | | | | + + + + + + | % Monocytes | 6.3Comment: Testing | % | EXTERNAL | | | | performed at [facility], [address] | | LAB | | | | [address], | | | | | | [place] [address] | | | | + + + + + + | % | 4.1Comment: Testing | % | EXTERNAL | | | Eosinophils | performed at [facility], [address] | | LAB | | | | [address], | | | | | | [place] [address] | | | | + + + + + + | % Basophils | 0.5Comment: Testing | % | EXTERNAL | | | | performed at [facility], [address] | | LAB | | | | [address], | | | | | | [place] [address] | | | | + + + + + + | Absolute | 5.2Comment: Testing | 1.9 - 7.4 K/uL | EXTERNAL | | | Segmented | performed at [facility], [address] | | LAB | | | Neutrophils | [address], | | | | | | [place] [address] | | | | + + + + + + | Absolute | 1.4Comment: Testing | 1.0 - 3.9 K/uL | EXTERNAL | | | Lymphocytes | performed at [facility], [address] | | LAB | | | | [address], | | | | | | [place] [address] | | | | + + + + + + | Absolute | 0.5Comment: Testing | 0 - 0.8 K/uL | EXTERNAL | | | Monocytes | performed at [facility], [address] | | LAB | | | | [address], | | | | | | [place] [address] | | | | + + + + + + | Absolute | 0.3Comment: Testing | 0 - 0.5 K/uL | EXTERNAL | | | Eosinophils | performed at [facility], [address] | | LAB | | | | [address], | | | | | | [place] [address] | | | | + + + + + + | Absolute | 0.0Comment: Testing | 0 - 0.1 K/uL | EXTERNAL | | | Basophils | performed at [facility], [address] | | LAB | | | | [address], | | | | | | [place] [address] | | | | + + + [...] | | | | | [place] [address] | | | | + + + + + + | K | 4.6Comment: Testing | 3.5 - 4.9 | EXTERNAL | | | | performed at [facility], [address] | mmol/L | LAB | | | | [address], | | | | | | [place] [address] | | | | + + + + + + | Cl | 107Comment: Testing | 99 - 109 mmol/L | EXTERNAL | | | | performed at [facility], [address] | | LAB | | | [address], | | | | | | [place] [address] | | | | + + + + + + | CO2 | 30Comment: Testing | 23 - 32 mmol/L | EXTERNAL | | | | performed at [facility], [address] | | LAB | | | | [address], | | | | | | [place] [address] | | | | + + + + + + | Anion Gap | 9Comment: Testing | 5 - 20 mmol/L | EXTERNAL | | | | performed at [facility], [address] | | LAB | | | | [address], | | | | | | [place] [address] | | | | + + + + + + | Glucose, | 104 (H)Comment: Testing | 65 - 99 mg/dL | EXTERNAL | | | Fasting | performed at [facility], [address] | | LAB | | | | [address], | | | | | | [place] [address] | | | | + + + + + + | BUN | 22Comment: Testing | 8 - 25 mg/dL | EXTERNAL | | | | performed at [facility], [address] | | LAB | | | | [address], | | | | | | [place] [address] | | | | + + + + + + | Creatinine | 0.95Comment: Testing | 0.70 - 1.30 | EXTERNAL | | | | performed at [facility], [address] | mg/dL | LAB | | | | [address], | | | | | | [place] [address] | | | | + + + + + + | BUN/Creatin | 23Comment: Testing | | EXTERNAL | | | ine Ratio | performed at [facility], [address] | | LAB | | | | [address], | | | | | | [place] [address] | | | | + + + + + + | Calcium | 8.3 (L)Comment: Testing | 8.5 - 10.2 | EXTERNAL | | | | performed at [facility], [address] | mg/dL | LAB | | | | [address], | | | | | | [place] [address] | | | | + + + + + + | Protein, | 5.4 (L)Comment: Testing | 6.3 - 8.2 g/dL | EXTERNAL | | | Total | performed at [facility], [address] | | LAB | | | | [address], | | | | | | [place], [place] [address] | | | | + + + + + + | Albumin | 3.5Comment: Testing | 3.3 - 4.8 g/dL | EXTERNAL | | | | performed at [facility], [address] | | LAB | | | | [address], | | | | | | [place], [place] [address] | | | | + + + + + + | Globulin | 1.9Comment: Testing | 1.3 - 4.9 g/dL | EXTERNAL | | | | performed at [facility], [address] | | LAB | | | | [address], | | | | | | [place] [address] | | | | + + + + + + | A/G Ratio | 1.8Comment: Testing | 1.0 - 2.4 | EXTERNAL | | | | performed at [facility], [address] | | LAB | | | | [address], | | | | | | [place] [address] | | | | + + + + + + | Bilirubin | 0.7Comment: Testing | 0.1 - 1.5 mg/dL | EXTERNAL | | | Total | performed at [facility], [address] | | LAB | | | | [address], | | | | | | [place] [address] | | | | + + + + + + | ALP, | 32 (L)Comment: Testing | 35 - 115 U/L | EXTERNAL | | | External | performed at [facility], [address] | | LAB | | | | [address], | | | | | | [place] [address] | | | | + + + + + + | AST | 15Comment: Testing | 10 - 45 U/L | EXTERNAL | | | | performed at [facility], [address] | | LAB | | | | [address], | | | | | | [place] [address] | | | | + + + + + + | ALT | 12Comment: Testing | 10 - 65 U/L | EXTERNAL | | | | performed at [facility], [address] | | LAB | | | | [address], | | | | | | [place] [address] | | | | + + + [...] W | | | | | | [address], | | | | | | [place] [address] | | | | + + + [...] EXTERNAL | | | | performed at [facility];888 | g/dL | LAB | | | | [address];[place] | | | | | | [address] | | | | + + + + + + | Hematocrit, | 34.1 (L)Comment: Testing | 39.0 - 50.0 % | EXTERNAL | | | POC | performed at [facility];[address] | | LAB | | | | [address];[place], [place] | | | | | | [address] | | | | + + + [...] EXTERNAL | | | | performed at [facility];888 | g/dL | LAB | | | | [address];[place] | | | | | | [address] | | | | + + + + + + | Hematocrit, | 34.7 (L)Comment: Testing | 39.0 - 50.0 % | EXTERNAL | | | POC | performed at [facility];[address] | | LAB | | | | [address];[place] | | | | | | [address] | | | | + + + [...] | | | | performed at [facility], [address] | | LAB | | | | [address], | | | | | | [place] [address] | | | | + + + + + + | Non- | 3.42 (L)Comment: Testing | 4.20 - 5.70 | EXTERNAL | | | Red Blood | performed at [facility], [address] | M/uL | LAB | | | Cells | [address], | | | | | Counted | [place] [address] | | | | + + + + + + | Hemoglobin | 10.5 (L)Comment: Testing | 13.2 - 17.0 | EXTERNAL | | | | performed at [facility], [address] | g/dL | LAB | | | | [address], | | | | | | [place] [address] | | | | + + + + + + | Hematocrit, | 31.9 (L)Comment: Testing | 39.0 - 50.0 % | EXTERNAL | | | POC | performed at [facility], [address] | | LAB | | | | [address], | | | | | | [place] [address] | | | | + + + + + + | MCV | 93.5Comment: Testing | 80.0 - 100.0 fl | EXTERNAL | | | | performed at [facility], [address] | | LAB | | | | [address], | | | | | | [place] [address] | | | | + + + + + + | MCH | 30.7Comment: Testing | 27.0 - 34.0 pg | EXTERNAL | | | | performed at [facility], [address] | | LAB | | | | [address], | | | | | | [place] [address] | | | | + + + + + + | MCHC | 32.9Comment: Testing | 32.0 - 35.5 | EXTERNAL | | | | performed at [facility], [address] | g/dL | LAB | | | | [address], | | | | | | [place] [address] | | | | + + + + + + | RDW-CV | 43.8Comment: Testing | 37 - 53 fl | EXTERNAL | | | | performed at [facility], [address] | | LAB | | | | [address], | | | | | | [place] [address] | | | | + + + + + + | Platelet | 164Comment: Testing | 150 - 400 K/uL | EXTERNAL | | | Count | performed at [facility], [address] | | LAB | | | Plasma | [address], | | | | | | [place] [address] | | | | + + + + + + | MPV | 10.4Comment: Testing | fl | EXTERNAL | | | | performed at [facility], [address] | | LAB | | | | [address], | | | | | | [place] [address] | | | | + + + + + + | Differentia | AUTOMATEDComment: | | EXTERNAL | | | l Type | Testing performed at | | LAB | | | | [facility], [address] | | | | | | [place] | | | | | | [address] | | | | + + + + + + | % Segmented | 65.6Comment: Testing | % | EXTERNAL | | | | performed at [facility], [address] | | LAB | | | Neutrophils | [address], | | | | | | [place] [address] | | | | + + + + + + | % | 23.8Comment: Testing | % | EXTERNAL | | | Lymphocytes | performed at [facility], [address] | | LAB | | | | [address], | | | | | | [place] [address] | | | | + + + + + + | % Monocytes | 9.2Comment: Testing | % | EXTERNAL | | | | performed at [facility], [address] | | LAB | | | | [address], | | | | | | [place] [address] | | | | + + + + + + | % | 1.0Comment: Testing | % | EXTERNAL | | | Eosinophils | performed at [facility], [address] | | LAB | | | | [address], | | | | | | [place] [address] | | | | + + + + + + | % Basophils | 0.4Comment: Testing | % | EXTERNAL | | | | performed at [facility], [address] | | LAB | | | | [address], | | | | | | [place] [address] | | | | + + + + + + | Absolute | 4.6Comment: Testing | 1.9 - 7.4 K/uL | EXTERNAL | | | Segmented | performed at [facility], [address] | | LAB | | | Neutrophils | [address], | | | | | | [place] [address] | | | | + + + + + + | Absolute | 1.7Comment: Testing | 1.0 - 3.9 K/uL | EXTERNAL | | | Lymphocytes | performed at [facility], [address] | | LAB | | | | [address], | | | | | | [place] [address] | | | | + + + + + + | Absolute | 0.6Comment: Testing | 0 - 0.8 K/uL | EXTERNAL | | | Monocytes | performed at [facility], [address] | | LAB | | | | [address], | | | | | | [place] [address] | | | | + + + + + + | Absolute | 0.1Comment: Testing | 0 - 0.5 K/uL | EXTERNAL | | | Eosinophils | performed at [facility], [address] | | LAB | | | | [address], | | | | | | [place] [address] | | | | + + + + + + | Absolute | 0.0Comment: Testing | 0 - 0.1 K/uL | EXTERNAL | | | Basophils | performed at [facility], [address] | | LAB | | | | [address], | | | | | | [place] [address] | | | | + + + [...] | | | | performed at [facility], [address] | uIU/mL | LAB | | | | [address], | | | | | | [place] [address] | | | | + + + [...] | | | | performed at [facility], [address] | | LAB | | | | [address], | | | | | | [place] [address] | | | | + + + [...] | | | | performed at [facility], [address] | | LAB | | | | [address], | | | | | | [place] [address] | | | | + + + [...] + + | Hemoglobin | 5.8Comment: The [place] | 4.0 - 6.0 % | EXTERNAL [...] | | | | performed at [facility], [address] | | | | | | [address], | | | | | | [place] [address] | | | | + + + [...] | | | | performed at [facility], [address] | | | | | | [address], | | | | | | [place] [address] | | | | + + + [...] | | | | | [place] [address] | | | | + + + + + + | K | 4.1Comment: Testing | 3.5 - 4.9 | EXTERNAL | | | | performed at [facility], [address] | mmol/L | LAB | | | | [address], | | | | | | [place] [address] | | | | + + + + + + | Cl | 109Comment: Testing | 99 - 109 mmol/L | EXTERNAL | | | | performed at [facility], [address] | | LAB | | | | [address], | | | | | | [place] [address] | | | | + + + + + + | CO2 | 26Comment: Testing | 23 - 32 mmol/L | EXTERNAL | | | | performed at [facility], [address] | | LAB | | | | [address], | | | | | | [place] [address] | | | | + + + + + + | Anion Gap | 8Comment: Testing | 5 - 20 mmol/L | EXTERNAL | | | | performed at [facility], [address] | | LAB | | | | [address], | | | | | | [place] [address] | | | | + + + + + + | Glucose, | 90Comment: Testing | 65 - 99 mg/dL | EXTERNAL | | | Fasting | performed at [facility], [address] | | LAB | | | | [address], | | | | | | [place] [address] | | | | + + + + + + | BUN | 48 (H)Comment: Testing | 8 - 25 mg/dL | EXTERNAL | | | | performed at [facility], [address] | | LAB | | | | [address], | | | | | | [place] [address] | | | | + + + + + + | Creatinine | 0.92Comment: Testing | 0.70 - 1.30 | EXTERNAL | | | | performed at [facility], [address] | mg/dL | LAB | | | | [address], | | | | | | [place] [address] | | | | + + + + + + | BUN/Creatin | 52Comment: Testing | | EXTERNAL | | | ine Ratio | performed at [facility], [address] | | LAB | | | | [address], | | | | | | [place] [address] | | | | + + + + + + | Calcium | 7.8 (L)Comment: Testing | 8.5 - 10.2 | EXTERNAL | | | | performed at [facility], [address] | mg/dL | LAB | | | | [address], | | | | | | [place] [address] | | | | + + + + + + | Protein, | 5.1 (L)Comment: Testing | 6.3 - 8.2 g/dL | EXTERNAL | | | Total | performed at [facility], [address] | | LAB | | | | [address], | | | | | | [place] [address] | | | | + + + + + + | Albumin | 3.3Comment: Testing | 3.3 - 4.8 g/dL | EXTERNAL | | | | performed at [facility], [address] | | LAB | | | | [address], | | | | | | [place] [address] | | | | + + + + + + | Globulin | 1.8Comment: Testing | 1.3 - 4.9 g/dL | EXTERNAL | | | | performed at [facility], [address] | | LAB | | | | [address], | | | | | | [place] [address] | | | | + + + + + + | A/G Ratio | 1.8Comment: Testing | 1.0 - 2.4 | EXTERNAL | | | | performed at [facility], [address] | | LAB | | | [address], | | | | | | [place] [address] | | | | + + + + + + | Bilirubin | 0.6Comment: Testing | 0.1 - 1.5 mg/dL | EXTERNAL | | | Total | performed at [facility], [address] | | LAB | | | | [address], | | | | | | [place] [address] | | | | + + + + + + | ALP, | 27 (L)Comment: Testing | 35 - 115 U/L | EXTERNAL | | | External | performed at [facility], [address] | | LAB | | | | [address], | | | | | | [place] [address] | | | | + + + + + + | AST | 11Comment: Testing | 10 - 45 U/L | EXTERNAL | | | | performed at [facility], [address] | | LAB | | | | [address], | | | | | | [place] [address] | | | | + + + + + + | ALT | 12Comment: Testing | 10 - 65 U/L | EXTERNAL | | | | performed at [facility], [address] | | LAB | | | | [address], | | | | | | [place] [address] | | | | + + + [...] [address]vd, | | | | | | [place] [address] | | | | + + + [...] EXTERNAL | | | | performed at [facility];888 | g/dL | LAB | | | | [address];[place] | | | | | | [address] | | | | + + + + + + | Hematocrit, | 31.2 (L)Comment: Testing | 39.0 - 50.0 % | EXTERNAL | | | POC | performed at [facility];[address] | | LAB | | | | [address];[place] | | | | | | [address] | | | | + + + [...] | | LAB | | | | Blvd;[place] [address] | | | | + + + + + + | Antibody | NEGATIVE | | EXTERNAL | | | Screen | | | LAB | | + + + + + + | Antibody | Testing performed at | | EXTERNAL | | | Screen | [facility] | | LAB | | | [address];[place] [address] | | | | + + + + + + | BB BAND | [id number] | | EXTERNAL | | | | | | LAB | | + + + + + + | BB BAND | Testing performed at | | EXTERNAL | | | | [facility];[address] | | LAB | | | | [address];[place] [address] | | | | + + + [...] | | | Patient | performed at [facility];[address] | | LAB | | | | [address];[place], [place] | | | | | | [address] | | | | + + + [...] | | | | | performed at [facility];[address] | | | | | | [facility];[place], [place] | | | | | | [address] | | | | + + + [...] EXTERNAL | | | | performed at [facility];[address] | | LAB | | | | [address];[place] | | | | | | [address] | | | | + + + + + + | Non- | 3.85 (L)Comment: Testing | 4.20 - 5.70 | EXTERNAL | | | Red Blood | performed at [facility];888 | M/uL | LAB | | | Cells | [address];[place] | | | | | Counted | [address] | | | | + + + + + + | Hemoglobin | 11.8 (L)Comment: Testing | 13.2 - 17.0 | EXTERNAL | | | | performed at [facility];888 | g/dL | LAB | | | | [address];[place] | | | | | | [address] | | | | + + + + + + | Hematocrit, | 35.6 (L)Comment: Testing | 39.0 - 50.0 % | EXTERNAL | | | POC | performed at [facility];[address] | | LAB | | | | [address];[place] | | | | | | [address] | | | | + + + + + + | MCV | 92.5Comment: Testing | 80.0 - 100.0 fl | EXTERNAL | | | | performed at [facility];[address] | | LAB | | | | [address];[place] | | | | | | [address] | | | | + + + + + + | MCH | 30.5Comment: Testing | 27.0 - 34.0 pg | EXTERNAL | | | | performed at [facility];[address] | | LAB | | | | [address];[place] | | | | | | [address] | | | | + + + + + + | MCHC | 33.0Comment: Testing | 32.0 - 35.5 | EXTERNAL | | | | performed at [facility];888 | g/dL | LAB | | | | [address];[place] | | | | | | [address] | | | | + + + + + + | RDW-CV | 44.2Comment: Testing | 37 - 53 fl | EXTERNAL | | | | performed at [facility];[address] | | LAB | | | | [address];[place] | | | | | | [address] | | | | + + + + + + | Platelet | 189Comment: Testing | 150 - 400 K/uL | EXTERNAL | | | Count | performed at [facility];[address] | | LAB | | | Plasma | [address];[place] | | | | | | [address] | | | | + + + + + + | MPV | 9.9Comment: Testing | fl | EXTERNAL | | | | performed at [facility];[address] | | LAB | | | | [address];[place] | | | | | | [address] | | | | + + + + + + | Differentia | MANUALComment: Testing | | EXTERNAL | | | l Type | performed at [facility];[address] | | LAB | | | | [address];[place] | | | | | | [address] | | | | + + + + + + | Segmented | 80Comment: Testing | % | EXTERNAL | | | Neutrophils | performed at [facility];[address] | | LAB | | | Manual | [address];[place] | | | | | | [address] | | | | + + + + + + | % Bands | 6Comment: Testing | % | EXTERNAL | | | | performed at [facility];[address] | | LAB | | | | [address];[place] | | | | | | [address] | | | | + + + + + + | Lymphocytes | 9Comment: Testing | % | EXTERNAL | | | Manual | performed at [facility];[address] | | LAB | | | | [address];[place] | | | | | | [address] | | | | + + + + + + | Monocytes | 5Comment: Testing | % | EXTERNAL | | | Manual | performed at [facility];[address] | | LAB | | | | [address];[place] | | | | | | [address] | | | | + + + + + + | Absolute | 8.8 (H)Comment: Testing | 1.9 - 7.4 K/uL | EXTERNAL | | | Neutrophils | performed at [facility];[address] | | LAB | | | | [address];[place] | | | | | | [address] | | | | + + + + + + | Bands | 0.7 (H)Comment: Testing | 0 - 0.2 K/uL | EXTERNAL | | | Manual | performed at [facility];[address] | | LAB | | | | [address];[place] | | | | | | [address] | | | | + + + + + + | Absolute | 1.0Comment: Testing | 1.0 - 3.9 K/uL | EXTERNAL | | | Lymphocytes | performed at [facility];[address] | | LAB | | | | [address];[place] | | | | | | [address] | | | | + + + + + + | Absolute | 0.6Comment: Testing | 0 - 0.8 K/uL | EXTERNAL | | | Monocytes | performed at [facility];[address] | | LAB | | | | [address];[place] | | | | | | [address] | | | | + + + + + + | Platelet | ADEQUATEComment: Testing | | EXTERNAL | | | Estimate | performed at [facility];[address] | | LAB | | | | [address];[place] | | | | | | [address] | | | | + + + + + + | RBC | RBC AND PLT MORPHOLOGY | | EXTERNAL | | | Morphology | APPEAR NORMALComment: | | LAB | | | | Testing performed at | | | | | | [facility];[address] | [address];[place] [address] | | | | + + + [...] EXTERNAL | | | | performed at [facility];[address] | | LAB | | | | [address] [facility];[place] | | | | | | [address] | | | | + + + [...] EXTERNAL | | | | performed at [facility];888 | mmol/L | LAB | | | | [address];[place] | | | | | | [address] | | | | + + + + + + | K | 4.8Comment: Testing | 3.5 - 4.9 | EXTERNAL | | | | performed at [facility];888 | mmol/L | LAB | | | | [address];[place] | | | | | | [address] | | | | + + + + + + | Cl | 107Comment: Testing | 99 - 109 mmol/L | EXTERNAL | | | | performed at [facility];[address] | | LAB | | | | [address];[place] | | | | | | [address] | | | | + + + + + + | CO2 | 27Comment: Testing | 23 - 32 mmol/L | EXTERNAL | | | | performed at [facility];[address] | | LAB | | | | [address];[place] | | | | | | [address] | | | | + + + + + + | Anion Gap | 11Comment: Testing | 5 - 20 mmol/L | EXTERNAL | | | | performed at [facility];[address] | | LAB | | | | [address];[place] | | | | | | [address] | | | | + + + + + + | Glucose, | 146 (H)Comment: Testing | 65 - 99 mg/dL | EXTERNAL | | | Fasting | performed at [facility];[address] | | LAB | | | | [address];[place] | | | | | | [address] | | | | + + + + + + | BUN | 46 (H)Comment: Testing | 8 - 25 mg/dL | EXTERNAL | | | | performed at [facility];[address] | | LAB | | | | [address];[place] | | | | | | [address] | | | | + + + + + + | Creatinine | 0.91Comment: Testing | 0.70 - 1.30 | EXTERNAL | | | | performed at [facility];888 | mg/dL | LAB | | | | [address];[place] | | | | | | [address] | | | | + + + + + + | BUN/Creatin | 50Comment: Testing | | EXTERNAL | | | ine Ratio | performed at [facility];[address] | | LAB | | | | [address];[place] | | | | | | [address] | | | | + + + + + + | Calcium | 7.4 (L)Comment: Testing | 8.5 - 10.2 | EXTERNAL | | | | performed at [facility];888 | mg/dL | LAB | | | | [address];[place] | | | | | | [address] | | | | + + + + + + | Protein, | 5.8 (L)Comment: Testing | 6.3 - 8.2 g/dL | EXTERNAL | | | Total | performed at [facility];[address] | | LAB | | | | [address];[place] | | | | | | [address] | | | | + + + + + + | Albumin | 3.2 (L)Comment: Testing | 3.3 - 4.8 g/dL | EXTERNAL | | | | performed at [facility];[address] | | LAB | | | | [address];[place] | | | | | | [address] | | | | + + + + + + | Globulin | 2.6Comment: Testing | 1.3 - 4.9 g/dL | EXTERNAL | | | | performed at [facility];[address] | | LAB | | | | [address];[place] | | | | | | [address] | | | | + + + + + + | A/G Ratio | 1.2Comment: Testing | 1.0 - 2.4 | EXTERNAL | | | | performed at [facility];[address] | | LAB | | | | [address];[place] | | | | | | [address] | | | | + + + + + + | Bilirubin | 0.5Comment: Testing | 0.1 - 1.5 mg/dL | EXTERNAL | | | Total | performed at [facility];[address] | | LAB | | | | [address];[place] | | | | | | [address] | | | | + + + + + + | ALP, | 47Comment: Testing | 35 - 115 U/L | EXTERNAL | | | External | performed at [facility];[address] | | LAB | | | | [address];[place] | | | | | | [address] | | | | + + + + + + | AST | 11Comment: Testing | 10 - 45 U/L | EXTERNAL | | | | performed at [facility];[address] | | LAB | | | | [address];[place] | | | | | | [address] | | | | + + + + + + | ALT | 19Comment: Testing | 10 - 65 U/L | EXTERNAL | | | | performed at [facility];[address] | | LAB | | | | [address];[place] | | | | | | [address] | | | | + + + [...] | | | | | | at [facility];[address] [facility] | | | | | | [address];[place] [address] | | | | + + + [...]
--- OUTSIDE RECORDS SUMMARY | ~2019-11-28 | XMS | Encounter Summary ---
Demographics + + + | Address | [address] | | | [place] [address] | + + + | Home Phone [...] Team Providers + +------+ + | [facility] [employer] Name | Role | Phone | + [...] | LUIS FERNANDO Figueroa | MD Jun [address][birth year] | | | | | Herb Mailcode: [id number] | [address], | | | | | [place], [place] | [place] [address] | | | | | [address] | [phone] | | | | | [phone] | | | +--------+ + + + [...]
--- OUTSIDE RECORDS SUMMARY | ~2019-11-28 | XMS | Encounter Summary ---
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 | Phone [...] | Atrial | Maximilian | [address] | | | | | fibrillation | MD Jon | [place], | | | | | , | [address] | [place] | | | | | unspecified | [place] | [address] | | | | | type (HCC) | [place], [place] | Phone: | | | | | Procedures | [address] | [phone] | | | | | ECHO | Phone: | Fax: | | | | | Complete | [phone] | [phone] | | | | | | Fax: | | | | | | | [phone] | | +--------+--------+ + + + + [...] | Atrial | Maximilian | [address] | | | | | fibrillation | MD Jon | [place], | | | | | , | [address] | [place] | | | | | unspecified | [place] | [address] | | | | | type (HCC) | [place], [place] | Phone: | | | | | Procedures | [address] | [phone] | | | | | ECHO | Phone: | Fax: | | | | | Complete | [phone] | [phone] | | | | | | Fax: | | | | | | | [phone] | | +--------+--------+ + + + + Encounter Details +--------+ + + + + | Date | Type | Department | Care Team | Description | +--------+ + + + + | 03/26/ | Hospital | [facility] | Maximilian Goddard | Atrial fibrillation, | | 2019 | Encounter | [facility] [address] | MD Jon [address] | unspecified type | | | | [address] [place] | [address] [place] | (HCC) | | | | [place] [address] | [place] [address] | | | | | [phone] | [phone] | | | | | | | [...] | | | | | | n Cecil | | | | | + + [...] | | | | | | n [place] | | | | | + + [...] | LILIAN SOTO Room Number Patient Number [id number] Date | | | of Study 03/26/2019 Visit Number [id number] | | | Referring Physician JON GODDARD MD Accession | | | [id number] Real Estate Asset Manager [facility] Number | | | Date of 1935 Interpreting | | | JON GODDARD MD | | | Physician Age 84 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
--- OUTSIDE RECORDS SUMMARY | ~2019-11-28 | XMS | Encounter Summary ---
Demographics + + + | Address | [address] | | | [place] [address] | + + + | Home Phone [...] Team Providers + +------+ + | Care Product Support Representative Name | Role | Phone | [...] Order | [address] | [address] [facility], | | | | | [address] | [place] [address] | | | | | [address], | [phone] | | | | | 4th floor [place], | | | | | | [place] [address] | | | | | | [phone] | | | +--------+ + + + [...] + | MRN: | [facility] | | [id number] Date: 06/27/2017Patient Name: William Nair #: | ENDOSCOPY | | [id number] of : 1935SN: [id number] Type: | | | InpatientRoom: SORProcedure: ERCPIndications: | | | For therapy of ascending cholangitis; 82 yo M with | | | sepsis, elevated LFTs and US showing mary dil and 1.3 cm | | | CBDProviders: BRVALENTINA | | | Thompson MALDONADO MD (Doctor), JORDY SOLANO, | | | RN (Nurse), ESTELA DAMIAN, SARI (Soft Iron Inspector)Referring MD: | | | Requesting Provider: Medicines: [...] The | | | Olympus TJF-Q180V Duodenoscope #[id number] was | | | introduced through the [...] with acute | | | cholangitis. The combatant diver qualified film was normal. The esophagus was | [...] Initiated On: | | | 06/27/2017 6:38 [facility] Letter to: LANA MATHEWS MD | | [...]
--- OUTSIDE RECORDS SUMMARY | ~2019-11-28 | XMS | Encounter Summary ---
Demographics + + + | Address | [address] | | | [place] [address] | + + + | Home Phone | | + + + | Preferred Language | Unknown | + + + | Marital Status | | + + + | Yazidism Affiliation | NON | + + + [...] Providers + +------+ + | Care Driver Salesman Name | Role | Phone | + [...] | Transcriptions | + + | Interface, Call Out Clerk In - 11/26/2005 3:10 AM PDT | | [place] [address] | | [place], [place] [address] | | [facility] CenterOPER[facility] RECORDMed Rec No.: | | [id number] Date: 07/14/2002Name: Carlos Burns SURGEON: | | Fozia Crawford M.D., Ph.D.COMMERCIAL ACCOUNT MANAGER: Med | | Jerrell GuPREOPERATIVE DIAGNOSIS:Rhegmatogenous retinal [...] | | Jun Crawford M.D., Ph.D.JS:x54D: 07/14/2002T: 07/16/[id number] | |attention was directed towards the right [...] | |JS:x54 | | | | | |[id number] | + + documented in this encounter Visit Diagnoses Not on filedocumented in this encounter"
--- OUTSIDE RECORDS SUMMARY | ~2019-11-28 | XMS | Encounter Summary ---
Demographics + + + | Address | [address] | | | [place] [address] | + + + | Home Phone [...] Team Providers + +------+ + | Care Opticianry Teacher Name | Role | Phone | [...] Mitesh | | | | | [facility] | [facility] | | | | | Hospital Admitting | [place], [place] | | | | | Desk Located on the | [address] | | | | | 9th floor | [phone] | | | | | [place], [place] | | | | | | [address] | | | +--------+ + + + [...] + | Periph | 06/27/17; 15; oscar mendze rn; | 06/27/17914 by | | | eral | Right; Forearm; 20 g; Positive | Lani Mendez RN | | | IV | | | | +--------+ + + + | Financial Aid Advisor | 06/27/17; 2205; Medium | 06/27/172205 by [...] | | Endotracheal Tube; 7.5; Oral; | [employer] | [employer] | | | 06/03/18; 1418 | | [...] | Narrative Attending: CATHI MACARIO Performed by [employer] | | | DONNIE CARDONA | | [...]
--- OUTSIDE RECORDS SUMMARY | ~2019-11-28 | XMS | Encounter Summary ---
Demographics + + + | Address | [address] | | | [place] [address] | + + + | Home Phone [...] Team Providers + +------+ + | Care Shipwright Supervisor Name | Role | Phone | [...] | | | | | Carolina Estevez [place], | [place], [place] | | | | | [place] [address] | [address] | | | | | [phone] | [phone] | | | | | | | [...]
--- OUTSIDE RECORDS SUMMARY | ~2019-11-28 | XMS | Encounter Summary ---
Demographics + + + | Address | [address] | | | [place] [address] | + + + | Home Phone [...] Providers + +------+ + | Care Home Health Aide Caregiver Name | Role | Phone | + [...] + + | 06/18/ | Telephone | [facility] | Nava | Constipated | | 2019 | | at [facility] | Dimas Pelayo MD | | | | | [address] | [address] | | | | | [address] Physician's | [address] [facility], | | | | | [place], 3rd floor | [place] [address] | | | | | [place], [place] | [phone] | | | | | [address] | | | | | | [phone] | | | +--------+ + + + [...]
--- OUTSIDE RECORDS SUMMARY | ~2019-11-28 | XMS | Encounter Summary ---
Demographics + + + | Address | [address] | | | [place] [address] | + + + | Home Phone [...] Team Providers + +------+ + | Care Foreclosure Clerk Name | Role | Phone | + +------+ + | Herlinda Maldonado | PCP | | + +------+ + Encounter Details +--------+ + + + + | Date | Type | Department | Care Team | Description | +--------+ + + + + | 06/28/ | Document-Sc | Health Information | Other, Faculty | | | 2018 | anned | Services [address] | [phone] | | | | | [address] | | | | | | Mailcode: [id number] | | | | | | [facility] | | | | | | [place], [place] | | | | | | [address] | | | | | | [phone] | | | +--------+ + + + [...]
--- OUTSIDE RECORDS SUMMARY | ~2019-11-28 | XMS | Encounter Summary ---
Demographics + + + | Address | [address] | | | [place] [address] | + + + | Home Phone [...] Team Providers + +------+ + | Care [employer] Ax Consultant Name | Role | Phone | [...] | deconditioni | Virgil Chance MD | [facility] | | | | | ng | [address] | for Health | | | | | Procedures | [address] | and Healing, | | | | | PHYSICAL | [address] | Building [address], | | | | | THERAPY | [facility] [place] | 1st Floor | | | | | REFERRAL | [address] | [facility] [place] | | | | | | Phone: | [phone] | | | | | | [phone] | Phone: | | | | | | Fax: | [phone] | | | | | | [phone] | Fax: | | | | | | | [phone] | +--------+--------+ + + + + Reason [...] + + | 06/26/ | Hospital | [address] | Alberto Miranda MD | | | 2018 - | Encounter | [address] | [address] | | | | | [address] [place] [address] | Carolina Guerra [place], | | | 06/30/ | | [place], [place] | [place] [address] | | | 2017 | | [address] | [phone] | | | | | [phone] | | | | | | | Vic Petty | | | | | | MD Herson [address] | | | | | | [address] | | | | | | [place], [place] | | | | | | [address] | | | | | | [phone] | | | | | | | [...] differen t from the original. [facility] Discharge Summary Discharging Provider: VIRGIL [...] and intubated prior to tra nsfer to [facility]. Workup was notable for [...] Your Medications These medications were sent to [id number] [id number] [place] [address], [place] [address] Hours: 9AM-7PM MON - FRI / 9AM-6PM [...] Thank you for entrusting your care to [facility] Internal Medicine. If you have any problems or concerns before you are able to follow up with your Primary Care Provider, please call and ask the knitting machine operator helper to page the attending physician, Vic Petty MD, wh o was caring for you at discharge. If that physician is not available, ask the knitting machine operator helper to page the physician invertebrate paleontologist for the Medical Teaching Service. Call us right away if any of the following occur: Recurrent abdominal pain Shaking chills or night sweats Other Discharge Orders and Instructions You will be called by the [facility] GI service within the next week to schedule a repeat appoint ment for ERCP and possible stent removal. Home Health Referral after Hospitalization Comments: I certify that this patient is under my care and that I, or Nurse Practitioner or Physician Wood Preparation Supervisor working with me, had a face to face encounter with this patient on 06/30/2017 On behalf of Attending Physician: Vic Petty MD I am ordering and certify that the following services are medically necessary home health s [facility] Home Health Physical Therapy Evaluate and Treat I certify that the patient is homebound based on the following clinical findings Post-hospi tono weakness, decreased strength and endurance, and tires easily with minimal exertion Follow Up: Schedule the following appointment(s) when you get home DARYL MATHEWS MD . Specialty: Internal Medicine Contact information [facility] [address] [place] [address] [address] [place] [address] Discharge Physical Exam: Last 24 hour min/max [...] Hospitalist and Medicine Teaching Services [facility] Pager [phone] I have spent 35 minutes with the [...] might be different from bella landin. PHYSICIAN APPLIANCE REPAIRER STUDENT PROGRESS NOTE FOR EDUCATIONAL PURPOSES ONLY [...] Q2H PRN ipratropium-albuterol 3 mL Q6H PRN xozeyymn-rfavwjz-iwrnzoex-zinc QID PRN oxyCODONE (immediate release) 2.5-5 mg [...] Code status: FULL DOREEN Oconnell [facility] Physician Wood Preparation Supervisor Program 06/29/17 Kang Zhang MD - 06/29/2017 [...] List: Active Hospital Problems 1) *Septic shock ([facility]) 2) Choledocholithiasis 3) Acute cholangitis 4) Klebsiella sepsis ([facility]) 5) Aspiration pneumonitis ([facility]) 6) S/P ERCP 7) COPD (chronic obstructive pulmonary disease) ([facility]) 8) Essential hypertension 82 year-old man with HTN, COPD not on supplemental oxygen, who presented to OSH with epigas tric pain and abnormal LFTs, admitted for septic shock due to acute cholangitis and acute hy poxic respiratory failure due to aspiration requiring intubation, transferred to [facility] MICU. Here found to [...] Hospitalist and Medicine Teaching Services [facility] Pager [phone] I have spent 26 minutes with the [...] interval not displayed. Micro: BLOOD CULTURE WORKUP [[id number]] (Abnormal) KP LAB Collected: 06/26/17 0939 Lab [...] List: Active Hospital Problems 1) *Septic shock ([facility]) 2) Choledocholithiasis 3) Acute cholangitis 4) Klebsiella sepsis ([facility]) 5) Aspiration pneumonitis ([facility]) 6) S/P ERCP 7) COPD (chronic obstructive pulmonary disease) ([facility]) 8) Essential hypertension Resolved Hospital Problems 9) Septic shock ([facility]) 10) Non-ST elevation myocardial infarction (NSTEMI), type 2 ([facility]) 11) Acute respiratory failure with hypoxia ([facility]) Assessment: William Burns is a 82 [...] Primary Surrogate Decision Maker Sharon Rodriguez Daughter [phone] Dimas Xavier MD Internal Medicine, PGY-3 #[id number] Louis Hernandez MD - 06/28/2017 2:26 PM [...] management as outpatient (pt prefers facility near [place]) --> if develops post ERCP complications or [...] Horne - 06/28/2017 7:47 AM PST PHYSICIAN APPLIANCE REPAIRER STUDENT PROGRESS NOTE FOR EDUCATIONAL PURPOSES ONLY [...] Q2H PRN ipratropium-albuterol 3 mL Q6H PRN hberpbxg-bxukoyo-esdxtctu-zinc QID PRN oxyCODONE (immediate release) 2.5-5 mg [...] on klebsiella cultures for sensitivity. Spoke with Flight Operation Coordinator at [facility] @1330, N o sensitivity results yet from [...] Code status: FULL SHONDA OconnellS [facility] Physician Wood Preparation Supervisor Program 06/28/17 Alisha Rai M D - [...] 86 87 78 HCO3 22 24 23 IGGDW6LPU 24 25 24 J7KYGYVC 96.4 97.0 96.8 FIO2 0.80 0.25 0.21 [...] in the patient's condition). ALISHA MAYNARD MD [facility] [address] [place] [id number] Camilo Amaya MD - 11/2017 6:00 AM PST [facility] MEDICAL ICU - PROGRESS [...] 6.5 mL/Kg (459.6 mL) RR: 22 bpm [place] BW: 70.7 kg FiO2 21 fraction of [...] 87 78 HCO3 -- 22 24 23 XAX0NYG2 -- 108* 348 371 VBGPH 7.27* -- [...] Primary Surrogate Decision Maker Sharon Rodriguez Daughter [phone] This patient was staffed with Dr. Maynard, [...] duct clearance Rene Maldonado MD Gastroenterology Pager [phone] - Virginia Cerna MD - 06/26/2017 4:38 PM PSTFormatting of this note might be different from the origi nal. PRE PROCEDURE NOTE: MR# [id number] Subjective: William Burns is a 82 y.o. [...] 4 hours. Concern for choledocholithiasis. Transferred t [facility] this morning. Has history of [...] results for input(s): PH, PCO2, PO2, HCO3, CPXAT0SCB, F9RIYYXC, P4WCWEVJR, FIO2 in the l ast 72 hours. [...] in the patient's condition). ALISHA MAYNARD MD [facility] [address] [place] [address] documented in this enco unter [...] | + +--------+ + + + | EV-GO-ECY-HB,POC RT | Urgent | 06/26/2017 | | [...] OF | [address] | [place], [place] | | | CARDIOLOGY | [facility] | [address] | | + + + + + [...] FERRIS | [address] | [place] [address] | | | SERVICES, CORE | [address]ARK [...] | + + + + + | [facility] | [address] | [place] [address] | | | SERVICES, CORE | [place] [...] | | | LABORATORY | | | PORTUGUESE | | | SERVICES, | | | [...] | + + + + + | [facility] Prevacus | [address] [facility] | [place] [address] | | | SERVICES, CORE | [place] [...] LABORATORY | [address] | [place] [address] | | | SERVICES, CORE | [place] [...] Note | + + | Service Account, iDoneThis Res In Interface - 06/28/2017 5:02 PM [...] SHAGUFTAAM | [address] | [place], [place] | | | D[facility] [place] [facility]ARE | [facility] | [address] | | | TESTS | | | [...] LABORATORY | [address] | [place] [address] | | | SERVICES, CORE | PARK [...] LABORATORY | [address] | [place] [address] | | | SERVICES, CORE | [place] [...] | | | LABORATORY | | | PORTUGUESE | | | SERVICES, | | | [...] | + + + + + | [facility] LABORATORY | [address] | [place] [address] | | | SERVICES, CORE | PARK [...] | + + + + + | [facility] LABORATORY | [address] | [place] [address] | | | [address] | [place] [...] (H) | 70 - 99 mg/dL | [facility] - | | | GLUCOSE, | [...] TOBAR | [address] | [place], [place] | | | [facility] [place] [facility] | [address] | [address] | | | TESTS | | | [...] TOBAR | [address] | [place], [place] | | | [facility] [place] [facility]ARE | [address] | [address] | | | TESTS | | | [...] MARQUAM | [address] | [place], [place] | | | [facility] [place] [facility]ARE | [address] | [address] | | | TESTS | | | [...] | | | LABORATORY | | | PORTUGUESE | | | SERVICES, | | | [...] | + + + + + | [facility] Prevacus | [address] | [place] [address] | | | SERVICES, CORE | [place] [...] | + + + + + | [facility] LABORATORY | [address] [facility] | [place] [address] | | | SERVICES, YOKASTA | [place] [...] | + + + + + | [facility] | [address] | [place] [address] | | | SERVICES, CORE | [place] [...] LABORATORY | [address] | [place] [address] | | | SERVICES, CORE | [place] [...] | + + + + + | [facility] LABORATORY | [address] | [place] [address] | | | SERVICES, CORE | [place] [...] (H) | 70 - 99 mg/dL | [facility] - | | | GLUCOSE, | [...] TOBAR | [address] | [place], [place] | | | [facility] [place] [facility] [place] | [facility] | [address] | | | TESTS | | | [...] LABORATORY | [address] | [place] [address] | | | SERVICES, CORE | [place] [...] [facility] | | | GRAVITY | [facility] [place] | | LABORATORY | | | | [...] | + + + + + | [facility] LABORATORY | [address] | [place] [address] | | | [address] | [address] | | | + + + + + ERCP (06/27/2017 6:38 AM PST) + + | Specimen | + + | | + + + + + | Narrative | Performed At | + + + | MRN: | [facility] | | [id number] Date: 06/27/2017Patient Name: William Nair #: | ENDOSCOPY | | [id number] of : 1935SN: [id number] Type: | | | InpatientRoom: SORProcedure: ERCPIndications: | | | For therapy of ascending cholangitis; 82 yo M with | | | sepsis, elevated LFTs and US showing mary dil and 1.3 cm | | | CBDProviders: RENE | | | Thompson MALDONADO MD (Doctor), JORDY SOLANO, | | | RN (Nurse), ESTELA DAMIAN, RN (Burglar Alarm Operator)Referring MD: | | | Requesting Provider: [...] The | | | Olympus TJF-Q180V Duodenoscope #[id number] was | | | introduced through the [...] with acute | | | cholangitis. The residential sales manager film was normal. The esophagus was [...] Initiated On: | | | 06/27/2017 6:38 [facility] Letter to: DARYL MATHEWS MD | | [...] + | MRN: | [facility] | | [id number] Date: 06/27/2017Patient Name: William Nair #: | ENDOSCOPY | | [id number] of : 1935SN: [id number] Type: | | | InpatientRoom: SORProcedure: ERCPIndications: | | | For therapy of ascending cholangitis; 82 yo M with | | | sepsis, elevated LFTs and US showing mary dil and 1.3 cm | | | CBDProviders: RENE | | | Thompson MALDONADO MD (Doctor), JORDY SOLANO, | | | RN (Nurse), ESTELA DAMIAN RN (Burglar Alarm Operator)Referring MD: | | | Requesting Provider: [...] The | | | Olympus TJF-Q180V Duodenoscope #[id number] was | | | introduced through the [...] with acute | | | cholangitis. The residential sales manager film was normal. The esophagus was [...] Initiated On: 06/27/2017 | | | 6:38 [facility] Letter to: DARYL MATHEWS MD | | |06/27/2017 6:48:17 AM | | |Number of Addenda: 0 | | |Note Initiated On: 06/27/2017 6:38 AM | | | Letter to: | | | DARYL MATHEWS MD | | + + + + +---------+ + + | Performing | Address | City[facility] | Phone Number | | Organization [...] | + + + + + | [facility] LAB[facility] | [address] | [place] [address] | | | SERVICES, CORE | [address] | | | + + + + + MAGNESIUM, PLASMA (06/27/2017 12:43 AM PST) + +-------+ + + + | Component | Value | Ref Range | Performed | Pathologist | | | | | At | Signature | + +-------+ + + + | MAGNESIUM,P | 2.3 | 1.6 - 2.6 mg/dL | [facility] | | | LASMA | | [...] LABORATORY | [address] | [place] [address] | | | SERVICES, YOKASTA | [place] [...] | + + + + + | [facility] | [address] [facility] | [place] [address] | | | SERVICES, CORE | [place] [...] | | | LABORATORY | | | PORTUGUESE | | | SERVICES, | | | [...] | + + + + + | [facility] | [address] | [place] [address] | | | SERVICES, YOKASTA | PARK [...] | + + + + + | [facility] DEPT OF | [address] | [place], [place] | | | CARDIOLOGY | [address] | [address] | | + + + + + [...] Note | + --------+ | Service Account, Pressglue In Interface - 06/28/2017 9:20 AM PST [...] | + + + + + | [facility] LABORATORY | [address] | [place] [address] | | | SERVICES, CORE | [place] [...] (H) | 70 - 99 mg/dL | [facility] - | | | GLUCOSE, | [...] + + + | BETTINA TOBAR | [address] | [place], [place] | | | [facility] [place] [facility] [place] | [facility] | [address] | | | TESTS | | | [...] Note | + + | Service Account, iDoneThis Res In Interface - 06/27/2017 9:07 AM [...] AMADOU | [address] | [place], [place] | | | Y[facility] OF CARE | [address] | [address] | | | TESTS | | | [...] OF | [address] | [place], [place] | | | CARDIOLOGY | [address] | [address] | | + + + + + [...] patient, procedure, | | | equipment, client support manager and site/side marked as required. | | [...] number | | | | | | [id number]. Bile duct, | | | | | [...] + + + | [facility] | [address] | [place] [address] | | | PATHOLOGY | [address] [...] patient, | | | procedure, equipment, client support manager and site/side marked as required. | | [...] modified Seldinger technique (a | | | pzazvair-ezop-wid-tgetxn-yjon-ugil-axglezm-trq-mzghvpdd) was used for | | | vessel [...] LABORATORY | [address] | [place] [address] | | | SERVICES, CORE | [address] [...] | + + + + + | [facility] | [address] | [place] [address] | | | SERVICES, CORE | [place] [...] | + + + + + | [facility] | [address] | [place] [address] | | | SERVICES, CORE | [place] [...] | + + + + + | [facility] | [address] | [place] [address] | | | SERVICES, CORE | [address] [...] | | | LABORATORY | | | PORTUGUESE | | | SERVICES, | | | [...] | + + + + + | [facility] LAB[facility]ATORY | [address] | [place] [address] | | | [address] | [address] | | | + [...] OF | [address] | [place], [place] | | | CARDIOLOGY | [address] | [address] | | + + + + + [...] | + + + + + | [facility] | [address] | [place] [address] | | | SERVICES, CORE | [place] [...] | + + + + + | [facility] | [address] | [place] [address] | | | SERVICES, CORE | [place] [...] | + + + + + | [facility] | [address] | [place] [address] | | | SERVICES, CORE | [place] [...] | + + + + + | [facility] | [address] [facility] | [place] [address] | | | SERVICES, YOKASTA | [place] [...] Note | + ----+ | Service Account, iDoneThis Res In Interface - 06/26/2017 12:57 PM [...] Note | + + | Service Account, Pressglue In Interface - 06/26/2017 12:55 PM PST [...] Note | + + | Service Account, iDoneThis Res In Interface - 06/26/2017 10:12 AM [...] LABORATORY | [address] | [place] [address] | | | SERVICES, | [address] [...] LABORATORY | [address] | [place] [address] | | | SERVICES, | [address] [...] | + + + + + | [facility] | [address] | [place] [address] | | | SERVICES, | [address] [...] | + + + + + | [facility] OF | [address] | [place], [place] | | | CARDIOLOGY | [address] | [address] | | + + + + + [...] + | [facility] | [address] | [place] [address] | | | [place] | | | | + + + [...] + | [facility] | [address] | [place] [address] | | | [place] | | | | + + + [...] LABORATORY | [address] | [place] [address] | | | [address] | [place] [...] | + + + + + | [facility] | [address] | [place] [address] | | | SERVICES, CORE | [place] [...] and promyelocytes. Bands are included in | [employer], CORE | | the neutrophil count, not the IG count, except in neonates <=60 days | | | old where bands are reported in a manual diff. | | + + + + + + + + | Performing | Address | City/State/Zipcode | Phone Number | | Organization | | | | + + + + + | [facility] | [address] | [place] [address] | | | SERVICES, CORE | [address] [...] | + + + + + | [facility] | [address] | [place] [address] | | | SERVICES, CORE | [address] [...] | + + + + + | [facility] | [address] | [place] [address] | | | SERVICES, CORE | PARK [...] | + + + + + | [facility] | [address] | [place] [address] | | | SERVICES, CORE | [place] [...] [facility] | [address] | [place] [address] | | | SERVICES, CORE | P[address] [...] | | | LABORATORY | | | PORTUGUESE | | | SERVICES, | | | [...] | + + + + + | [facility] | [address] | [place] [address] | | | SERVICES, CORE | P[address] [...] | + + + + + | [facility] | [address] | [place] [address] | | | SERVICES, CORE | [address] | | | + + + + + GH-FQ-VFW-HB,POC RT (06/26/2017 8:55 AM PST) + + [...] BETT[facility] TOBAR | [address] | [place], [place] | | | [place] | [address] | [address] | | | TESTS | | | [...] | | | | | modification) on [facility] 06/28/17 at | | | [...]
--- OUTSIDE RECORDS SUMMARY | ~2019-11-28 | XMS | Encounter Summary ---
Demographics + + + | Address | [address] | | | [place] [address] | + + + | Home Phone | | + + + | Preferred Language | Unknown | + + + | Marital Status | | + + + | Orthodoxy Affiliation | NON | + + + | Race | White | + + + | Ethnic Group | Not or | + + + Author + + + | Author | [facility] | + + + | Organization | [facility] | + + + | Address | Unknown | + + + | Phone | Unavailable | + + + Support + + +---------+ + | Name | Relationship | Address | Phone | + + +---------+ + | None Per Pt | ECON | Unknown | Unavailable | + + +---------+ + Care Team Providers + +------+ + | Care Wool Dyer Name | Role | Phone | + +------+ + | Herlinda Maldoando | PCP | | + +------+ + [...] Medication | | 2019 | | at [facility] | [address] | management | | | | [address] | [address] | | | | | Loop Physician's | [place], [place] | | | | | [address], [facility] floor | [address] | | | | | [place], [place] | [phone] | | | | | [address] | | | | | | [phone] | | | +--------+ + + + [...]
--- OUTSIDE RECORDS SUMMARY | ~2019-11-28 | XMS | Encounter Summary ---
Demographics + + + | Address | [address] | | | [place] [address] | + + + | Home Phone [...] Team Providers + +------+ + | Care Infertility Nurse Name | Role | Phone | [...] | [address] | [place], | | | | | [place], | [place] [address] | | | | | [place] [address] | [phone] | | | | | [phone] | | | +--------+ + + + [...]
--- OUTSIDE RECORDS SUMMARY | ~2019-11-28 | XMS | Encounter Summary ---
Demographics + + + | Address | [address] | | | [place] [address] | + + + | Home Phone [...] Providers + +------+ + | Care Technical Manager Chemical Plant Name | Role | Phone | + [...] + + | 05/31/ | Hospital | [facility] [address] | Ashwini Ruggiero MD | | | 2019 - | Encounter | [address] | [address] | | | | | [place], | [address] | | | 06/06/ | | [place] [address] | [place], [place] | | | 2018 | | [phone] | [address] | | | | | | [phone] | | | | | | | | | | | | Nguyễn Shepard, | | | | | | [address] | | | | | | [address] | | | | | | [place], [place] | | | | | | [address] | | | | | | [phone] | | | | | | | [...] differe nt from the original. [facility] DEPARTMENT OF ORTHOPAEDICS & REHABILITATION INPATIENT HOSPITAL DISCHARGE SUMMARY & INTERDISCIPLINARY INSTRUCTIONS Patient: William Burns CSN: [id number] Admission Date: 05/31/2018 Discharge Date: 06/06/2018 Attending Physician: Nguyễn Shepard MD PCP: SHAHEEN Love Service: [facility] Orthopaedics & Rehabilitation Diagnoses Principal [...] they suspect your wound is infected. Call [facility] Orthopedics first at . Activity NON Weight bearing on left leg. For approximately 4 weeks to be determined at postoperative clinic visit. Condition on Discharge Stable Follow-Up Appointments ORTHOPEDICS OUTPATIENT CLINIC: Future Appointments Provider Department Dept Phone Center 07/02/2018 1:40 PM Nguyễn Chance Working Orthopaedics at [facility] [phone] Orthopedics PCP: As needed for any medical [...] mg by mouth once daily at bedtime. [facility] Orthopaedic Service Pain Policy At [...] administration instructions. - Call Orthopedic Clinic at [phone] if any persistent, localized swelling that does [...] and ask for the orthopaedic surgery resident plant production manager. Additional Post-Op Instructions / What to [...] feel that you will need more, call [phone] during business hours in order to get [...] it has been our pleasure. ELISE Mckeon [facility] Department of Orthopaedics & Rehabilitation [address] [place] [address] Mail Code: OP31 [facility] [address] documented in t his encounter Medications at [...] to have left pelvic fracture, transferred to [facility] Orthopedic Surgery service for surg ical management. [facility] initially consulted for pre-operative evaluation. [...] says he uses sparingly. On arrival to [facility] he was on 4 L [...] Sanchez MD Attending Physician Clinical Hospitalist Services [facility] Pager [phone] Please call or page me with any questions or concerns. Doe Newman MD - 06/06/2018 9:11 AM PST Orthopaedic Surgery Progress Note Patient: /Age: MRN: CSN: Date: Admission Date: Hospital Day: Orthopaedic Attending: William Burns 1935 83 y.o. [id number] 06/06/2018 05/31/2018 6 Nguyễn Shepard MD Diagnosis: [...] [facility]THO TRAUMA & [...] to have left pelvic fracture, transferred to [facility] Orthopedic Surgery service for surg ical management. [facility] initially consulted for pre-operative evaluation. [...] says he uses sparingly. On arrival to [facility] he was on 4 L [...] Sanchez MD Attending Physician Clinical Hospitalist Services [facility] Pager [phone] Please call or page me with any questions or concerns. Doe Newman MD - 06/05/2018 7:10 AM PST Orthopaedic Surgery Progress Note Patient: /Age: MRN: CSN: Date: Admission Date: Hospital Day: Orthopaedic Attending: William Burns 1935 83 y.o. [id number] 06/05/2018 05/31/2018 5 Nguyễn Shepard MD Diagnosis: [...] [facility] with ORTHO TRAUMA & [...] refill < 2 seconds Doe Gongora MD [facility] [place] Department of Orthopaedics & Rehabilitation [address] [place] [address] Mail Code: OP31 [facility] [address] Kg Snider MD - 06/04/2018 10:03 AM [...] to have left pelvic fracture, transferred to [facility] Orthopedic Surgery service for surg ical management. [facility] initially consulted for pre-operative evaluation. [...] says he uses sparingly. On arrival to [facility] he was on 4 L [...] Sanchez MD Attending Physician Clinical Hospitalist Services [facility] Pager [phone] Please call or page me with any questions or concerns. Devendra Scales MD - 06/04/2018 7:48 AM PST Orthopaedic Surgery Progress Note Patient: /Age: MRN: CSN: Date: Admission Date: Hospital Day: Orthopaedic Attending: William James Grant 1935 83 y.o. [id number] 06/04/2018 05/31/2018 4 Nguyễn Shepard MD Diagnosis: [...] [facility] with ORTHO TRAUMA & [...] refill < 2 seconds Doe G[address]ora MD [facility] Department of Orthopaedics & Rehabilitation [address] [place] [address] Mail Code: OP31 [facility] [address] evendra Da Silva MD - 06/03/2018 8:32 [...] MD Orthopaedic Surgery Resident 06/03/2018, 8:33 PM [facility] [place] Department of Orthopaedics & Rehabilitation [address] [facility] Mail Code: OP31 [place] [address] Jade Messina MD - 06/02/2018 8:36 AM [...] Please call Orthopaedic Trauma and Fracture at [phone] to schedule a followup within 2 weeks from discharge. ALEXA VICKERS MD Pager: [phone] 06/02/2018 oe Gongora MD - 06/01/2018 8:27 AM PST Orthopaedic Surgery Progress Note Patient: /Age: MRN: CSN: Date: Admission Date: Hospital Day: Orthopaedic Attending: William Burns 1935 83 y.o. [id number] 06/01/2018 05/31/2018 1 Nguyễn Shepard MD Diagnosis: [...] [facility] & [...] seconds Reflexes: not performed Doe Gongora MD [facility] [place] Department of Orthopaedics & Rehabilitation [address] [facility] Mail Code: OP31 Dileep CHAPPELL [address] documented in this enco unter Plan of [...] | + + + + + | [facility] | [address] | [place] [address] | | | SERVICES, CORE | RICHARD [...] | | | LABORATORY | | | [facility] | | | SERVICES, | | | [...] + + + + + | [facility] | [address] | [place] [address] | | | SERVICES, CORE | RICHARD [...] LABORATORY | [address] | [place] [address] | | | SERVICES, CORE | PARK [...] | | | LABORATORY | | | [facility] | | | SERVICES, | | | [...] the MDRD equation recommended by the | [facility] | | National Kidney Disease [...] | + + + + + | [facility] | [address] [facility] | [place] [address] | | | SERVICES, [place]OKASTA | RICHARD [...] | + + + + + | [facility] | [address] | [place] [address] | | | SERVICES, CORE | RICHARD [...] | + + + + + | [facility] | [address] | [place] [address] | | | SERVICES, CORE | [address] | | | + + + + + X-RAY PORTABLE 2 VIEW ABDOMEN (KUB AND UPRIGHT) (06/04/2018 2:32 PM PST) + + | Specimen | + + | | + + + + + | Narrative | Performed At | + + + | EXAM: [place] 2 VIEW ABDOMEN (KUB AND UPRIGHT) History: [...] Interface - 06/04/2018 4:24 PM PST EXAM: [place] 2 VIEW | | ABDOMEN (KUB AND [...] | + + + + + | [facility] | [address] | [place] [address] | | | SERVICES, CORE | RICHARD [...] | + + + + + | [facility] | [address] [facility] [facility] | [place] [address] | | | SERVICES, CORE | RICHARD [...] | + + + + + | [facility] | [address] [facility] [address] [facility] | [place] [address] | | | SERVICES, CORE | RICHARD [...] | | | LABORATORY | | | [facility] | | | SERVICES, | | | [...] | + + + + + | [facility] | [address] [facility] | [place] [address] | | | SERVICES, CORE | RICHARD [...] Note | + + | Service Account, [employer] Res In Interface - 06/04/2018 4:42 PM [...] | | + +---------+ + + | [facility] RAD[facility]OLOG[facility] | | | | | VOICE RECOGNITION 2 | | | | + +---------+ + + OPERATION RECORD (06/03/2018 4:58 PM PST) + + | Procedure Note | + + | Nguyễn Shepard MD - 06/03/2018 4:58 PM [facility] Date of Service: 06/03/2018 | | Attending Surgeon: Nguyễn Shepard MD Deputy Administrator(s): Devendra Allen | | MD Avinash. Preoperative [...] He | | was transferred to the [facility]. A sacral bump consisting of 5 [...] problem was referred to my care at [facility] by another | | orthopaedic surgeon. The patient is from the [facility] and traveled many miles to | | get to [facility], bypassing several other hospitals due [...] 06/03/2018 14:26:09DT: | | 06/03/2018 16:58:33Job #: [id number] | + + MAGNESIUM, PLASMA (06/03/2018 4:37 [...] [facility] | [address] | [place] [address] | | | SERVICES, CORE | PARK [...] OF | [address] | [place], [place] | | | CARDIOLOGY | [address] | [address] | | + + + + + [...] [facility] | [address] | [place], [place] | | | DILAN TURNER OF CARE | [address] | [address] | | | TESTS | | | [...] [facility] | [address] | [place], [place] | | | DILAN TURNER OF CARE | [address] | [address] | | | TESTS | | | [...] | + + + + + | [facility] | [address] | [place] [address] | | | SERVICES, YOKASTA | RICHARD [...] | | | LABORATORY | | | [facility] | | | SERVICES, | | | [...] | + + + + + | [facility] | [address] | [place] [address] | | | SERVICES, CORE | RICHARD [...] | + + + + + | [facility] DEPT OF | [address] | [place], [place] | | | CARDIOLOGY | [address] | [address] | | + + + + + [...] LABORATORY | [address] | [place] [address] | | | SERVICES, CORE | PARK [...] LABORATORY | [address] | [place] [address] | | | SERVICES, CORE | PARK [...] | | | LABORATORY | | | [facility] | | | SERVICES, | | | [...] | + + + + + | [facility] | [address] | [place] [address] | | | SERVICES, CORE | RICHARD [...] LABORATORY | [address] | [place] [address] | | | SERVICES, | [address] [...] | + + + + + | [facility] | [address] | [place] [address] | | | SERVICES, | [address] [...] | + + + + + | [facility] | [address] | [place] [address] | | | SERVICES, CORE | [address] | | | + + + + + X-RAY KNEE 2 VIEWS LEFT (06/01/2018 11:48 AM PST) + + | Specimen | + + | | + + + + + | Narrative | Performed At | + + + | EXAM: KNEE 2 VIEWS LEFT HISTORY: eval traction pin placement | [facility] | | COMPARISON: None. FINDINGS/IMPRESSION: [...] LABORATORY | [address] | [place] [address] | | | SERVICES, CORE | PARK [...] | | | LABORATORY | | | [facility] | | | SERVICES, | | | [...] the MDRD equation recommended by the | [facility] | | National Kidney Disease [...] | + + + + + | [facility] | [address] | [place] [address] | | | SERVICES, CORE | RICHARD [...] Note | + + | Service Account, [employer] Res In Interface - 06/01/2018 9:25 AM [...] | + + + + + | [facility] | [address] | [place] [address] | | | SERVICES, CORE | RICHARD [...] | | | LABORATORY | | | [facility] | | | SERVICES, | | | [...] | + + + + + | [facility] | [address] | [place] [address] | | | SERVICES, CORE | RICHARD [...]
--- OUTSIDE RECORDS SUMMARY | ~2019-11-28 | XMS | Encounter Summary ---
Demographics + + + | Address | [address] | | | [place] [address] | + + + | Home Phone [...] Team Providers + +------+ + | Care Inletter Name | Role | Phone | + +------+ + | Herlinda Maldonado | PCP | | + +------+ + Encounter Details +--------+ + + + + | Date | Type | Department | Care Team | Description | +--------+ + + + + | 06/26/ | Document-Sc | Health Information | Other, Faculty | | | 2018 | anned | Services [address] | [phone] | | | | | [address] | | | | | | Mailcode: OP17A | | | | | | [facility] | | | | | | [place], [place] | | | | | | [address] | | | | | | [phone] | | | +--------+ + + + [...]
--- OUTSIDE RECORDS SUMMARY | ~2019-11-28 | XMS | Clinical Summary ---
Demographics + + + | Address | [address] | | | [place] [address] | + + + | Home Phone | | + + + | Preferred Language | Unknown | + + + | Marital Status | | + + + | Mormonism Affiliation | Unknown | + + + | Race | Unknown | + + + | Ethnic Group | Unknown | + + + Author + + + | Author | [facility] | | | and [place] | + + + | Organization | [facility] | | | [...] Providers + +------+ + | Care Plastic Welder Name | Role | Phone | + [...] Lindsay | | Endobiliary stent placed at [facility] | + + + + [...] | [facility] | [facility] | [id number] | 05/21/19 | | | Medica | | | HEALTH | | 19-Pre | | | re | | | MDCR | | sent | | | | + +--------+ +--------+-------+---------+--------+ | [facility] | [facility] | [id number] | | | | Medica | | [...] Person | Self | [birth year] | | [address] | | | al/Fam | | 1935 | [phone] | [place], [place] | | | michelle | | | 4 (Home) | [address] | + +--------+ +--------+ + + | William Burns | Person | Self | [birth year] | | [address] | | | al/Fam | | 1935 | [phone] | [place], [place] | | | [place]le | | | 4 (Home) | [address] | + +--------+ +--------+ + + Advance Directives + + + + + | Type | Date Recorded | Patient | Explanation | | | | Ruby Rails Developer | | + + + + + | Power of | | | | | Sales Representative Supervisor | | | | + + + + + | Advance | 08/09/2017 11:17 | | | | Directive | AM | | | + + + + +
--- OUTSIDE RECORDS SUMMARY | ~2019-11-28 | XMS | Encounter Summary ---
Demographics + + + | Address | [address] | | | [place] [address] | + + + | Home Phone | | + + + | Preferred Language | Unknown | + + + | Marital Status | | + + + | Tenriism Affiliation | NON | + + + [...] Team Providers + +------+ + | Care Pole Tester Name | Role | Phone | [...] | [address] | MD [address] | | | | | Herb Mailcode: [id number] | [place], | | | | | [place], [place] | [place] [address] | | | | | [address] | [phone] | | | | | [phone] | | | +--------+ + + + [...]
--- OUTSIDE RECORDS SUMMARY | ~2019-11-28 | XMS | Encounter Summary ---
Demographics + + + | Address | [address] | | | [place] [address] | + + + | Home Phone [...] Team Providers + +------+ + | Care Income Tax Adjuster Name | Role | Phone | [...] as of this encounter Progress Notes Interface, Card Reader In - 11/26/2005 3:10 AM PDT ULTRASOUND [...] Bay M.D. and Waylon Simeon, Ophthalmic Echographer [place] / [id number] / [id number] / [id number] / Tdocumented in this encounter Plan of [...] | Transcriptions | + + | Interface, Card Reader In - 11/26/2005 3:10 AM PDT | [...] andWaylon Simeon, Ophthalmic | | EchographerME / [id number] / [id number] / [id number] / T: 07/17/2002 | |HISTORY: This gentleman [...] |Waylon Simeon, Ophthalmic Echographer | | | |[place] / [place] | |[id number] / [id number] / [id number] / | | | | | + + documented in this encounter Visit Diagnoses Not on filedocumented in this encounter"
--- OUTSIDE RECORDS SUMMARY | ~2019-11-28 | XMS | Encounter Summary ---
Demographics + + + | Address | [address] | | | [place] [address] | + + + | Home Phone [...] Team Providers + +------+ + | Care Fish Processing Supervisor Name | Role | Phone [...] | | | | | | [facility] | | | | | | Hospital Admitting | | | | | | Desk Located on the | | | | | | 9th floor | | | | | | [place], [place] | | | | | | [address] | | | +--------+ + + + [...]
--- OUTSIDE RECORDS SUMMARY | ~2019-11-28 | XMS | Encounter Summary ---
Demographics + + + | Address | [address] | | | [place] [address] | + + + | Home Phone | | + + + | Preferred Language | Unknown | + + + | Marital Status | | + + + | Protestant Affiliation | Unknown | + + + | Race | Unknown | + + + | Ethnic Group | Unknown | + + + Author + + + | Author | [facility] | | | and [place] | + + + | Organization | [facility] | | | [...] Team Providers + +------+ + | Care Ceo Name | Role | Phone | + [...] | | | | [address] [place] | [place] [address] | | | | | [address] | | | | | | [phone] | | | +--------+ + + + [...]
--- OUTSIDE RECORDS SUMMARY | ~2019-11-28 | XMS | Encounter Summary ---
Demographics + + + | Address | [address] | | | [place] [address] | + + + | Home Phone [...] Team Providers + +------+ + | Care Experimental Rocketsled Mechanic Name | Role | Phone | [...] | | | | | [place], | | | | | | [place] [address] | | | +--------+--------+ + + + [...]
--- OUTSIDE RECORDS SUMMARY | ~2019-11-28 | XMS | Encounter Summary ---
Demographics + + + | Address | [address] | | | [place] [address] | + + + | Home Phone [...] Team Providers + +------+ + | Care Coverer Name | Role | Phone | + +------+ + | Herlinda Maldonado | PCP | | + +------+ + Encounter Details +--------+ + + + + | Date | Type | Department | Care Team | Description | +--------+ + + + + | 06/16/ | Telephone | [facility] Primary Care | Sid, | | | 2018 | | at [facility] | Alexa Anderson MD | | | | | [address] | [address] | | | | | Loop Physician's | [place], | | | | | [place], 3rd floor | [place] [address] | | | | | [place], [place] | [phone] | | | | | [address] | | | | | | [phone] | | | +--------+ + + + [...]
--- OUTSIDE RECORDS SUMMARY | 2019-11-28 15:58 | XMS ---
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 CRITERIA MET - Group Notification - 6 ED Visits in 6 Months - [facility] - Has Care Guidelines - PDMP - [facility] - 2 Visits in 30 Days CARE PROVIDERS ROSA ENNIS Physician Ethnoarchaeology Professor 05/31/2018-Current PHONE: Unknown Jose F has no Care Guidelines for this patient. Care History Medical/Surgical 11/26/2019 [facility] - CHW CONTACTED PATIENT- PATIENT WOULD LIKE HELP WITH GETTING AN APT IN REGARDS TO HIS CHRONIC CONSTIPATION. - CHW CONTACTED DR JIMENEZ OFFICE-SCHEDULED AN APT 01/05/20 @ 9:20AM EARLIEST APT. THEY DID PUT PATIENT ON THE WAIT LIST FOR CANCELLATIONS. - CHW CONTACTED PCP DR ENNIS-DISCUSSED A POSSIBLE REFERRAL TO A CONFIGURATION MANAGEMENT MANAGER. - CHW LEFT A MESSAGE WITH SURESH COX AT [facility] -RESPIRATORY THERAPIST-PULMONARY REHAB. - SARI GÓMEZ-DURALUMIN METALWORKER HAS EDUCATED PATIENT ABOUT PAIN MEDICATION AND CONSTIPATION 08/26/2019 [facility] Left message with [facility] medicine requesting LAMA and ICS be added to patient\T\#39;s care plan. E.D. VISIT COUNT (12 MO.) 11 [facility] TOTAL 11 NOTE: Visits indicate total known visits. ED/UCC VISIT TRACKING (12 MO.) 11/28/2019 15:55 [facility] [place] TYPE: Emergency COMPLAINT: - BACK PAIN 11/25/2019 20:37 [facility] [place] TYPE: Emergency COMPLAINT: - CONSTIPATION DIAGNOSES: - Procedure and treatment not carried out due to patient leavin 11/19/2019 19:09 [facility] [place] TYPE: Emergency COMPLAINT: - SOB DIAGNOSES: - Allergy status to other drugs, medicaments and biological sub - Other shelter (current) 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 - Personal history of nicotine dependence - Heart failure, unspecified - Shortness of breath - Chronic atrial fibrillation, unspecified - Localized edema - terminal press operator (current) use of aspirin - Chronic obstructive pulmonary disease, unspecified - Dependence on supplemental oxygen 08/23/2019 14:25 [facility] [place] TYPE: Emergency COMPLAINT: - BLOOD PRESSURE PROBLEM DIAGNOSES: - Personal history of nicotine dependence - Chronic obstructive pulmonary disease, unspecified - Other shelter (current) 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 - Weakness - Heart failure, unspecified - Unspecified atrial fibrillation 08/12/2019 09:09 [facility] [place] TYPE: Emergency COMPLAINT: - VOMITING DIAGNOSES: - Personal history of nicotine dependence - Nausea with vomiting, unspecified - Unspecified atrial fibrillation - Acute gastritis without bleeding - Other shelter (current) 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 - Chronic obstructive pulmonary [...] slipping, tripping and stumbling with - Other terminal press operator (current) 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 - Laceration without foreign body of right forearm, initial enc 02/08/2019 20:35 [facility] [place] TYPE: Emergency COMPLAINT: - RAPID HEART RATE DIAGNOSES: - Other shelter (current) 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 - Constipation, unspecified - [...] sub - Essential (primary) hypertension - Other terminal press operator (current) 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 - Unspecified atrial fibrillation [...] - Retention of urine, unspecified - Other shelter (current) 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 - Permanent atrial fibrillation - terminal press operator (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 analgesic - Permanent atrial fibrillation - Respiratory failure, unspecified with hypoxia - Unsteadiness on feet - alf (current) use of aspirin - Gastro-esophageal reflux disease without esophagitis - Allergy status to other drugs, medicaments and biological sub - alf (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 analgesic - alf (current) use of aspirin - Gastro-esophageal reflux disease without esophagitis - Chronic diastolic (congestive) heart failure - Chronic diastolic (congestive) heart failure - Respiratory failure, unspecified with hypoxia - Hyperlipidemia, unspecified - Other shelter (current) 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 - Retention of urine, [...] of first lumbar vertebra, subseque - Other terminal press operator (current) 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 - Acute respiratory failure with hypoxia - Pneumonia due to Streptococcus pneumoniae - terminal press operator (current) use of aspirin - Allergy status [...] of coronary angioplasty implant and graft - terminal press operator (current) use of antithrombotics/antiplatelets - Other terminal press operator (current) 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 - Gastro-esophageal reflux disease without esophagitis - Chronic obstructive pulmonary disease, unspecified - Hyperlipidemia, unspecified - Noninfective gastroenteritis and colitis, unspecified - Heart failure, unspecified - Personal history of nicotine dependence - Hypertensive heart disease with heart failure [email or web address]
[2019-11-28] MEDS ORDERED: CALCITONIN-SAL3.7 ML NAS (17:38)
== END 2019-11-28 17:47 ==
LOC: ED 15:54
DX: M54.5 Low back pain (principal); K59.00 Constipation, unspecified; J44.9 Chronic obstructive pulmonary disease, unspecified; I48.91 Unspecified atrial fibrillation; I50.9 Heart failure, unspecified; Z87.891 Personal history of nicotine dependence; Z88.8 Allergy status to other drugs, medicaments and biological substances; Z79.899 Other long term (current) 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
CPT/HCPCS: 99283

== ENCOUNTER 2020-02-16 11:25 | Emergency (ER) | payer MEDICARE ==
[~2020-02-16] VITALS: Ht 175.3 cm; Wt 67.2 kg
--- OUTSIDE RECORDS SUMMARY | ~2020-02-16 | XMS | Encounter Summary ---
Demographics + + + | Address | [address] [address] | | | [place] [address] | + + + | Home Phone | | + + + | Preferred Language | Unknown | + + + | Marital Status | | + + + | Alevism Affiliation | Unknown | + + + | Race | White | + + + | Ethnic Group | Not or | + + + Author + + + | Author | [facility] | | | and [place] | + + + | Organization | [facility] | | | and [...] Team Providers + +------+ + | Care Mri Supervisor Name | Role | Phone | + +------+ + | Herlinda Maldonado | PCP | | | PA | | | + +------+ + Reason for Referral Diagnostic/Screening (Routine) +--------+--------+ + + + + | Status | Reason | Specialty | Diagnoses / | Referred By | Referred To | | | | | Procedures | Contact | Contact | +--------+--------+ + + + + | Closed | | Radiology | Diagnoses | Lois, | [facility] | | | | | Atrial | Maximilian | [address] | | | | | fibrillation | MD Jon | [place], | | | | | , | [address] | [place] | | | | | unspecified | [place] | [address] | | | | | type (HCC) | [place], [place] | Phone: | | | | | Procedures | [id number] | [phone] | | | | | ECHO | Phone: | Fax: | | | | | Complete | [phone] | [phone] | | | | | | Fax: | | | | | | | [phone] | | +--------+--------+ + + + + Reason for Visit Diagnostic/Screening (Routine) +--------+--------+ + + + + | Status | Reason | Specialty | Diagnoses / | Referred By | Referred To | | | | | Procedures | Contact | Contact | +--------+--------+ + + + + | Closed | | Radiology | Diagnoses | Maxood, | [facility] | | | | | Atrial | Maximilian | [address] | | | | | fibrillation | MD Jon | [place], | | | | | , | [address] | [place] | | | | | unspecified | [place] | [address] | | | | | type (HCC) | [place], [place] | Phone: | | | | | Procedures | [id number] | [phone] | | | | | ECHO | Phone: | Fax: | | | | | Complete | [phone] | [phone] | | | | | | Fax: | | | | | | | [phone] | | +--------+--------+ + + + + Encounter Details +--------+ + + + + | Date | Type | Department | Care Team | Description | +--------+ + + + + | 03/26/ | Hospital | [facility] | Maximilian Goddard | Atrial fibrillation, | | 2019 | Encounter | [facility] [address] | MD Jon [address] | unspecified type | | | | [address] [place] | [address] [place] | ([facility]) | | | | [place] [address] | [place] [address] | | | | | [phone] | [phone] | | | | | | | | +--------+ + + + + Social History + + + +--------+ + | Tobacco Use | Types | Packs/Day | Years | Date | | | | | Used | | + + + +--------+ + | Former Smoker | Cigarettes | 3 | 40 | 1950 - 1990 | + + + +--------+ + + [...] + + documented as of this encounter Medications at Time of Discharge [...] + + + +---------+ + + | apixaban (ELIQUIS) | Take 5 mg by mouth 2 | | 0 | | | | 5 mg tablet | times daily. | | | | | + + + +---------+ + + | dilTIAZem | Take 180 mg by mouth | | 0 | 03/07/20 | | | (CARDIZEM CD) 180 mg | nightly. | | | 19 | | | 24 hr capsule | | | | | | + [...] + +---------+ + + | omeprazole | Take 40 mg by mouth | | 0 | | | | (PRILOSEC) 40 MG | every morning | | | | | | capsule | (before breakfast). | | | | | + + [...] + + + +---------+ + + | ursodiol (PRASANTH) | Take 250 mg by mouth | | 0 | 12/13/19 | | | 250 mg tablet | 3 times daily. | | | 19 | 9 | + + + +---------+ + + documented as of this encounter Plan of Treatment Not on filedocumented as of this encounter Procedures + +--------+ + + + | Procedure Name | Priori | Date/Time | Associated Diagnosis | Comments | | | ty | | | | + +--------+ + + + | ECHO COMPLETE | Routin | 03/26/2019 | Atrial | Results for this | | | e | 2:55 PM | fibrillation, | procedure are in the | | | | PST | unspecified type | results section. | | | | | (HCC) | | + +--------+ + + + documented in this encounter Results ECHO Complete (03/26/2019 2:55 PM PST) + + + + + + | Component | Value | Ref Range | Performed | Pathologist | | | | | At | Signature | + + + + + + | Patient | 159 lbs | | [facility] | | | Weight | | | | | | (lbs) | | | | | + + + + + + | Patient | 5'11 | | [facility] | | | Height | | | | | + + + + + + | LVIDd | 4.14 | cm | [facility] | | + + + + + + | FS | 28 | % | [facility] | | + + + + + + | LA volume | 88.67 | mL | [facility] | | + + + + + + | Ascending | 3.72 | cm | [facility] | | | aorta | | | | | + + + + + + | Aortic arch | 2.42 | cm | [facility] | | + + + + + + | AV | 487.15 | msec | [facility] | | | regurgitati | | | | | | on pressure | | | | | | 1/2 time | | | | | + + + + + + | IVRT | 110.73 | msec | [facility] | | + + + + + + | LVOT peak | 81.88 | cm/s | [facility] | | | selin | | | | | + + + + + + | AV peak selin | 120.98 | cm/s | [facility] | | + + + + + + | AV peak | 5.85 | mmHg | [facility] | | | gradient | | | | | + + + + + + | LA Volume | 46 | mL/m2 | [facility] | | | Index | | | | | + + + + + + | AV LVOT | 2.68 | mmHg | [facility] | | | Peak | | | | | | Gradient | | | | | + + + + + + | TR Peak | 45 | mmHg | [facility] | | | Gradient | | | | | + + + + + + | TR Velocity | 335.74 | cm | [facility] | | + + + + + + | LV | 9.1 | cm | [facility] | | | Diastolic | | | | | | Length 4C | | | | | + + + + + + | LV | 62 | % | [facility] | | | Valdez's | | | | | | Biplane EF | | | | | + + + + + + | LV ED | 90.77 | ml | [facility] | | | Volume | | | | | | (Valdez's) | | | | | + + + + + + | LV ED | 48 | ml/m2 | [facility] | | | Volume | | | | | | Index | | | | | + + + + + + | LV ES | 34 | ml | [facility] | | | Volume | | | | | + + + + + + | MV | 805.56 | cm/s2 | [facility] | | | Deceleratio | | | | | | n [place] | | | | | + + + + + + | MV | 133.98 | msec | [facility] | | | Deceleratio | | | | | | n Time | | | | | + + + + + + | MV E/A | 2.68 | | [facility] | | | Ratio | | | | | + + + + + + | MV Peak | 40.2 | cm/s | [facility] | | | A-Wave | | | | | + + + + + + | MV Peak | 107.93 | cm/s | [facility] | | | E-Wave | | | | | + + + + + + | AV | 222.65 | cm/s2 | [facility] | | | Deceleratio | | | | | | n [place] | | | | | + + + + + + | AV | 1,679.84 | msec | [facility] | | | Deceleratio | | | | | | n Time | | | | | + + + + + + | RA Area | 24.71 | cm2 | [facility] | | + + + + + + | LA/Aorta | 1.08 | | [facility] | | | Ratio | | | | | + + + + + + | LA Area | 26.61 | cm2 | [facility] | | + + + + + + | LV ES | 18 | ml/m2 | [facility] | | | Volume | | | | | | Index | | | | | + + + + + + | Aortic Root | 4.25 | cm | [facility] | | | Diameter | | | | | + + + + + + | IVS | 1.12 | cm | [facility] | | | Diastolic | | | | | | Thickness | | | | | | MM | | | | | + + + + + + | LVPW | 1.06 | cm | [facility] | | | Diastolic | | | | | | Thickness | | | | | | MM | | | | | + + + + + + | IVS | 1.29 | cm | [facility] | | | Systolic | | | | | | Thickness | | | | | | MM | | | | | + + + + + + | LV Systolic | 2.98 | cm | [facility] | | | Diameter | | | | | | MM | | | | | + + + + + + | LVPW | 1.38 | cm | [facility] | | | Systolic | | | | | | Thickness | | | | | | MM | | | | | + + + + + + | AV Cusp | 1.95 | cm | [facility] | | | Seperation | | | | | | MM | | | | | + + + + + + | LA Systolic | 4.6 | cm | [facility] | | | Diameter | | | | | | MM | | | | | + + + + + + | TAPSE | 2.4 | cm | [facility] | | + + + + + + | LVEF-TTE | 62 | | [facility] | | | TRANSTHORAC | | | | | | IC ECHO | | | | | + + + + + + + + | Specimen | + + | | + + + +------- --------+ | Narrative | Perfor med At | + +------- --------+ | Transthoracic | [facility] | | Echocardiography Report (TTE) Demographics Patient Name NATALI | | | LILIAN SOTO Room Number Patient Number [id number] Date | | | of Study 03/26/2019 Visit Number [id number] | | | Referring Physician JON GODDARD MD Accession | | | [id number] Unpaid Intern 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 Procedure DateDate: | | | 03/26/2019 Start: 02:11 PM Study Location: Echo LabTechnical Quality: | | | Adequate visualization Indications:Atrial fibrillation, unspecified | | | I48.91. Patient Status: Routine Height: 71 inches Weight: 159 pounds | | | BSA: 1.91 m^2 BMI: 22.18 kg/m^2 HR: 51 bpm Conclusions Summary Left | | | ventricle is normal in size and function. Ejection fraction is | | | estimated at 62%. Impaired relaxation compatible with diastolic | | | dysfunction (reversed E/A ratio). Structurally normal mitral valve | | | with mild insufficiency. Structurally normal tricuspid valve with mild | | | to moderate insufficiency and peak velocity consistent with RVSP | | | 50-55 mmHg. Left atrium is mildly enlarged. Signature | | | | | | Electronically signed by JON GODDARD MD (Interpreting physician) on | | | 03/26/2019 at 05:04 PM | | | | | | Structures Left Atrium LA Dimension: 4.6 cm | | | LA Area: 26.61 cm^2 LA/Aorta: 1.08 LA Volume/Index: 88.67 | | | ml /46m^2 Left Atrium Findings Left atrium is mildly enlarged. Left | | | Ventricle Diastolic Dimension: 4.14 cm Systolic | | | Dimension: 2.98 cm Septum Diastolic: 1.12 cm | | | Septum Systolic: 1.29 cm PW Diastolic: 1.06 cm | | | PW Systolic: 1.38 cm EF Estimated: 62% | | | FS: 28 % LV EDV/LV EDV Index: 90.77 ml/48 m^2 LV ESV/LV ESV | | | Index: 34 ml/18 m^2 EF Calculated: 62% | | | LV Length: 9.1 cm | | | IVRT: 110.7 msec Left Ventricle Findings Left ventricle is | | | normal in size and function. Ejection fraction is estimated at 62%. | | | Impaired relaxation compatible with diastolic dysfunction (reversed | | | E/A ratio). Right Atrium | | | RA Area: 24.71 cm^2 Right Atrium Findings Normal right atrial size. | | | Right Ventricle Right Ventricle Findings Normal right ventricular | | | size. Right ventricle global systolic function is normal. TAPSE = 2.4 | | | cm. MiscellaneousAorta Aortic Root: 4.25 cm | | | Aortic Arch: 2.42 cm Ascending Aorta: 3.72 cm Miscellaneous | | | FindingsAortic root is mildly enlarged.Ascending aorta is mildly | | | enlarged. Pericardium Pericardial Effusion Findings No evidence of | | | pericardial effusion. Pleura Pleural Effusion Findings No evidence | | | of pleural effusion. Valves Mitral Valve Peak E-Wave: 107.93 cm/s | | | Peak A-Wave: 40.2 cm/s | | | E/A Ratio: 2.68 | | | Deceleration Time: 134 msec Mitral Valve | | | Findings Structurally normal mitral valve with mild insufficiency. | | | Aortic Valve Peak Velocity: 120.98 cm/s Peak Gradient: 5.85 mmHg | | | Deceleration Time: 1679.8 msec Cusp Separation: 1.95 cm | | | Aortic Valve Findings Aortic valve is a probable trileaflet valve with | | | mild sclerosis and mild to moderate insufficiency without significant | | | stenosis. Tricuspid Valve TR Velocity: 335.74 cm/s | | | TR Gradient: 45.09 mmHg Tricuspid Valve Findings Structurally | | | normal tricuspid valve with mild to moderate insufficiency and peak | | | velocity consistent with RVSP 50-55 mmHg. Pulmonic Valve Pulmonic | | | Valve Findings Normal pulmonic valve structure and function. Normal | | | pulmonary valve and RVOT flow by color and Doppler flow imaging. LVOT | | | Peak Velocity: 81.88 cm/s Peak Gradient: 2.68 mmHg | | | LA Dimension: 4.6 cm LA Area: 26.61 cm^2 | | | LA/Aorta: 1.08 | | | LA Volume/Index: 88.67 ml /46m^2 | | | | | | Left Atrium Findings | | | Left atrium is mildly enlarged. | | | | | | Left Ventricle | | | | | | Diastolic Dimension: 4.14 cm Systolic Dimension: 2.98 cm | | | Septum Diastolic: 1.12 cm Septum Systolic: 1.29 cm | | | PW Diastolic: 1.06 cm PW Systolic: 1.38 cm | | | EF Estimated: 62% FS: 28 % | | | LV EDV/LV EDV Index: 90.77 ml/48 m^2 LV ESV/LV ESV Index: 34 ml/18 m^2 | | | EF Calculated: 62% LV Length: 9.1 cm | | | | | | IVRT: 110.7 msec | | | | | | Left Ventricle Findings | | | Left ventricle is normal in size and function. Ejection fraction is | | | estimated at 62%. | | | Impaired relaxation compatible with diastolic dysfunction (reversed E/A | | | ratio). | | | | | | Right Atrium | | | | | | RA Area: 24.71 cm^2 | | | | | | Right Atrium Findings | | | Normal right atrial size. | | | | | | Right Ventricle | | | | | | Right Ventricle Findings | | | Normal right ventricular size. | | | Right ventricle global systolic function is normal. | | | TAPSE = 2.4 cm. | | | | | |Miscellaneous | | |Aorta | | | | | | Aortic Root: 4.25 cm Aortic Arch: 2.42 cm | | | Ascending Aorta: 3.72 cm | | | | | |Miscellaneous Findings | | |Aortic root is mildly enlarged. | | |Ascending aorta is mildly enlarged. | | | | | | Pericardium | | | | | | Pericardial Effusion Findings | | | No evidence of pericardial effusion. | | | | | | Pleura | | | | | | Pleural Effusion Findings | | | No evidence of pleural effusion. | | | | | |Valves | | | | | | Mitral Valve | | | | | | Peak E-Wave: 107.93 cm/s Peak A-Wave: 40.2 cm/s | | | E/A Ratio: 2.68 | | | Deceleration Time: 134 msec | | | | | | Mitral Valve Findings | | | Structurally normal mitral valve with mild insufficiency. | | | | | | Aortic Valve | | | | | | Peak Velocity: 120.98 cm/s | | | Peak Gradient: 5.85 mmHg Deceleration Time: 1679.8 msec | | | | | | Cusp Separation: 1.95 cm | | | | | | Aortic Valve Findings | | | Aortic valve is a probable trileaflet valve with mild sclerosis and mild | | | to moderate insufficiency without significant stenosis. | | | | | | Tricuspid Valve | | | | | | TR Velocity: 335.74 cm/s TR Gradient: 45.09 mmHg | | | | | | Tricuspid Valve Findings | | | Structurally normal tricuspid valve with mild to moderate insufficiency | | | and peak velocity consistent with RVSP 50-55 mmHg. | | | | | | Pulmonic Valve | | | | | | Pulmonic Valve Findings | | | Normal pulmonic valve structure and function. Normal pulmonary valve and | | | RVOT flow by color and Doppler flow imaging. 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 Ejection fraction is estimated at 62%. Impaired relaxation | | compatible with diastolic dysfunction (reversed E/A ratio). Structurally normal mitral | | valve with mild insufficiency. Structurally normal tricuspid valve with mild to moderate | | insufficiency and peak velocity consistent with RVSP 50-55 mmHg. Left atrium is mildly | | enlarged. Signature | | at | | 05:04 PM Structures Left | | Atrium LA Dimension: 4.6 cm LA Area: 26.61 cm^2 LA/Aorta: 1.08 | | LA Volume/Index: 88.67 ml /46m^2 Left Atrium Findings Left atrium is mildly enlarged. | | Left Ventricle Diastolic Dimension: 4.14 cm Systolic Dimension: 2.98 cm Septum | | Diastolic: 1.12 cm Septum Systolic: 1.29 cm PW Diastolic: 1.06 cm | | PW Systolic: 1.38 cm EF Estimated: 62% FS: 28 % LV EDV/LV | | EDV Index: 90.77 ml/48 m^2 LV ESV/LV ESV Index: 34 ml/18 m^2 EF Calculated: 62% | | LV Length: 9.1 cm IVRT: 110.7 msec | | Left Ventricle Findings Left ventricle is normal in size and function. Ejection fraction | | is estimated at 62%. Impaired relaxation compatible with diastolic dysfunction | | (reversed E/A ratio). Right Atrium RA Area: 24.71 cm^2 | | Right Atrium Findings Normal right atrial size. Right Ventricle Right Ventricle Findings | | Normal right ventricular size. Right ventricle global systolic function is normal. | | TAPSE = 2.4 cm.MiscellaneousAorta Aortic Root: 4.25 cm Aortic Arch: | | 2.42 cm Ascending Aorta: 3.72 cmMiscellaneous FindingsAortic root is mildly | | enlarged.Ascending aorta is mildly enlarged. Pericardium Pericardial Effusion Findings | | No evidence of pericardial effusion. Pleura Pleural Effusion Findings No evidence of | | pleural effusion.Valves Mitral Valve Peak E-Wave: 107.93 cm/s Peak A-Wave: | | 40.2 cm/s E/A Ratio: 2.68 | | Deceleration Time: 134 msec Mitral Valve Findings Structurally normal mitral | | valve with mild insufficiency. Aortic Valve Peak Velocity: 120.98 cm/s Peak Gradient: | | 5.85 mmHg Deceleration Time: 1679.8 msec Cusp Separation: 1.95 cm Aortic Valve | | Findings Aortic valve is a probable trileaflet valve with mild sclerosis and mild to | | moderate insufficiency without significant stenosis. Tricuspid Valve TR Velocity: 335.74 | | cm/s TR Gradient: 45.09 mmHg Tricuspid Valve Findings Structurally normal | | tricuspid valve with mild to moderate insufficiency and peak velocity consistent with | | RVSP 50-55 mmHg. Pulmonic Valve Pulmonic Valve Findings Normal pulmonic valve structure | | and function. Normal pulmonary valve and RVOT flow by color and Doppler flow imaging. | | LVOT Peak Velocity: 81.88 cm/s Peak Gradient: 2.68 mmHg | | ratio). | | Structurally normal mitral valve with mild insufficiency. | | Structurally normal tricuspid valve with mild to moderate insufficiency | | and peak velocity consistent with RVSP 50-55 mmHg. | | Left atrium is mildly enlarged. | | | | Signature | | | | | | | | | | | |Structures | | | | Left Atrium | | | | LA Dimension: 4.6 cm LA Area: 26.61 cm^2 | | LA/Aorta: 1.08 | | LA Volume/Index: 88.67 ml /46m^2 | | | | Left Atrium Findings | | Left atrium is mildly enlarged. | | | | Left Ventricle | | | | Diastolic Dimension: 4.14 cm Systolic Dimension: 2.98 cm | | Septum Diastolic: 1.12 cm Septum Systolic: 1.29 cm | | PW Diastolic: 1.06 cm PW Systolic: 1.38 cm | | EF Estimated: 62% FS: 28 % | | LV EDV/LV EDV Index: 90.77 ml/48 m^2 LV ESV/LV ESV Index: 34 ml/18 m^2 | | EF Calculated: 62% LV Length: 9.1 cm | | | | IVRT: 110.7 msec | | | | Left Ventricle Findings | | Left ventricle is normal in size and function. Ejection fraction is | | estimated at 62%. | | Impaired relaxation compatible with diastolic dysfunction (reversed E/A | | ratio). | | | | Right Atrium | | | | RA Area: 24.71 cm^2 | | | | Right Atrium Findings | | Normal right atrial size. | | | | Right Ventricle | | | | Right Ventricle Findings | | Normal right ventricular size. | | Right ventricle global systolic function is normal. | | TAPSE = 2.4 cm. | | | |Miscellaneous | |Aorta | | | | Aortic Root: 4.25 cm Aortic Arch: 2.42 cm | | Ascending Aorta: 3.72 cm | | | |Miscellaneous Findings | |Aortic root is mildly enlarged. | |Ascending aorta is mildly enlarged. | | | | Pericardium | | | | Pericardial Effusion Findings | | No evidence of pericardial effusion. | | | | Pleura | | | | Pleural Effusion Findings | | No evidence of pleural effusion. | | | |Valves | | | | Mitral Valve | | | | Peak E-Wave: 107.93 cm/s Peak A-Wave: 40.2 cm/s | | E/A Ratio: 2.68 | | Deceleration Time: 134 msec | | | | Mitral Valve Findings | | Structurally normal mitral valve with mild insufficiency. | | | | Aortic Valve | | | | Peak Velocity: 120.98 cm/s | | Peak Gradient: 5.85 mmHg Deceleration Time: 1679.8 msec | | | | Cusp Separation: 1.95 cm | | | | Aortic Valve Findings | | Aortic valve is a probable trileaflet valve with mild sclerosis and mild | | to moderate insufficiency without significant stenosis. | | | | Tricuspid Valve | | | | TR Velocity: 335.74 cm/s TR Gradient: 45.09 mmHg | | | | Tricuspid Valve Findings | | Structurally normal tricuspid valve with mild to moderate insufficiency | | and peak velocity consistent with RVSP 50-55 mmHg. | | | | Pulmonic Valve | | | | Pulmonic Valve Findings | | Normal pulmonic valve structure and function. Normal pulmonary valve and | | RVOT flow by color and Doppler flow imaging. | | | | LVOT | | | | Peak Velocity: 81.88 cm/s | | Peak Gradient: 2.68 mmHg | + + + +---------+ + + | Performing | Address | City/State/Zipcode | Phone Number | | Organization | | | | + +---------+ + + | [facility] | | | | + +---------+ + + documented in this encounter Visit Diagnoses + + | Diagnosis | + + | Atrial fibrillation, unspecified type (HCC) | + + documented in this encounter"
--- OUTSIDE RECORDS SUMMARY | ~2020-02-16 | XMS | Encounter Summary ---
Demographics + + + | Address | [address] | | | [place] [address] | + + + | Home Phone | | + + + | Preferred Language | Unknown | + + + | Marital Status | | + + + | Baptism Affiliation | Unknown | + + + [...] Team Providers + +------+ + | Care International Relations Teacher Name | Role | Phone | + +------+ + | Herlinda Maldonado | PCP | | | PA | | | + +------+ + Reason for Referral Evaluate & Treat (Routine) +--------+ + + + + + | Status | Reason | Specialty | Diagnoses / | Referred By | Referred To | | | | | Procedures | Contact | Contact | +--------+ + + + + + | Closed | Specialty | Pulmonary | Diagnoses | Maxtrina, | Yovanny, | | | Services | Disease / | Chronic | Maximilian | She | | | Required | Pulmonology | obstructive | MD Jon | MD Domonique | | | | | pulmonary | [address] | [address] | | | | | disease, | [place] | [address] AMANDA E | | | | | unspecified | VERONI[place], JEFFY | [place] | | | | | COPD type | [address] | [address] Phone: | | | | | ([facility]) | Phone: | [phone] | | | | | | [phone] | Fax: | | | | | | Fax: | [phone] | | | | | | [phone] | | +--------+ + + + + + Diagnostic/Screening (Routine) +--------+--------+ + + + + | Status | Reason | Specialty | Diagnoses / | Referred By | Referred To | | | | | Procedures | Contact | Contact | +--------+--------+ + + + + | Closed | | Radiology | Diagnoses | Maxood, | [facility] | | | | | Atrial | Maximilian | [address] | | | | | fibrillation | MD Jon | [place], | | | | | , | [address] | [place] | | | | | unspecified | [place] | [address] | | | | | type (HCC) | [place] | Phone: | | | | | Procedures | [address] | [phone] | | | | | ECHO | Phone: | Fax: | | | | | Complete | [phone] | [phone] | | | | | | Fax: | | | | | | | [phone] | | +--------+--------+ + + + + Reason for Visit + + + | Reason | Comments | + + + | New Patient | | + + + Evaluate & Treat (Urgent) +--------+--------+ + + + + | Status | Reason | Specialty | Diagnoses / | Referred By | Referred To | | | | | Procedures | Contact | Contact | +--------+--------+ + + + + | Closed | | Cardiology | Diagnoses | Erica, | Lois, | | | | | Unspecified | Herlinda | Maximilian | | | | | atrial | SHAHEEN Mckeon | MD Jon | | | | | fibrillation | [address] | [address] | | | | | ([facility]) | Addy Villagomez | [place] | | | | | Procedures | [place], | [place], [place] | | | | | [employer]ANT | [place] | [address] Phone: | | | | | | [address] | [phone] | | | | | | Phone: | Fax: | | | | | | [phone] | [phone] | | | | | | Fax: | | | | | | | [phone] | | +--------+--------+ + + + + Encounter Details +--------+---------+ + + + | Date | Type | Department | Care Team | Description | +--------+---------+ + + + | 01/09/ | Office | [facility] | Maximilian Abreu | Atrial fibrillation, | | 2019 | Visit | CARDIOLOGY [address] | MD Jon [address] | unspecified type | | | | [address] [place], | [address] [place] | ([facility]) (Primary Dx); | | | | [place] [address] | [place] [address] | Right fascicular | | | | [phone] | [phone] | block; Essential | | | | | | hypertension; | | | | | | Raynaud's disease | | | | | | without gangrene; | | | | | | Mixed | | | | | | hyperlipidemia; | | | | | | Abnormal EKG: RBBB, | | | | | | R FASB; Chronic | | | | | | obstructive | | | | | | pulmonary disease, | | | | | | unspecified COPD | | | | | | type (HCC) | +--------+---------+ + + + Social History + + [...] + + + | Blood Pressure | 130/68 | 01/09/2019 12:47 PM | | | | | PDT | | + + + + + | Pulse | 76 | 01/09/2019 12:47 PM | | | | | PDT | | + + + + + | Temperature | - | - | | + + + + + | Respiratory Rate | 16 | 01/09/2019 12:47 PM | | | | | PDT | | + + + + + | Oxygen Saturation | - | - | | + + + + + | Inhaled Oxygen | - | - | | | Concentration | | | | + + + + + | Weight | 72.1 kg (159 lb) | 01/09/2019 12:47 PM | | | | | PDT | | + + + + + | Height | 180.3 cm (5' 11") | 01/09/2019 12:47 PM | | | | | PDT | | + + + + + | Body Mass Index | 22.18 | 01/09/2019 12:47 PM | | | | | PDT | | + + + + + documented in this encounter Patient Instructions Patient Instructions Joan Patel RN - 01/09/2019 1:00 PM PDT Referral to Dr Hairston - Quality Manager in [facility]. Someone from that office will call you to arrange an appointment. Holter Monitor : 24 hour Date: Check-In Time: Where to Check in: Echo: Date: Check-In Time: Where to Check In: Follow up appointment: Provider: Soraida Abreu MD Date: Check-In Time: documented in this encounter Progress Notes Maximilian Abreu MD - 01/09/2019 1:00 PM PDTFormatting of this note might be differe nt from the original. PATIENT NAME: William Burns : 1935: AGE: 83 y.o. REFERRED BY: Herlinda Dill* PRIMARY CARE: SHAHEEN Toro CARDIOLOGY OFFICE VISIT Date of Service: 01/09/19 HISTORY OF PRESENT ILLNESS: William Burns "Carlos" is a 83 y.o. male with a history of chronic atrial fibrillation a nd COPD. He is being seen today for further consultation. He is referred by Herlinda Quesada for further evaluation given history of chronic atrial fibrillation and recent presentation with rapid ventricular rate. Patient describes that he hasn't had good rate control and has been fairly asymptomatic for a long time on his previous diltiazem regimen. However, in the recent past he has had difficulty controlling his tachyarrhythmia, presentations to the emergency department in the recent past. This coi ncided with recent significant increase in the frequency of his use of his nebulizer at home given worsening COPD symptoms. He states that in the past he was using it once a day, but more recently has been increased to 6 times a day. Otherwise, he denied chest pain or exertional complaints. He has no known history of heart failure, cardiomyopathy, CAD, stroke or TIA. He quit smoking many many years ago. He rosas es any severe palpitations, lightheadedness, or syncope. MEDICAL, SURGICAL, AND PERSONAL HISTORY Past Medical History: Diagnosis Date Atrial fibrillation (HCC) Backache Bronchitis Bundle branch block, right Calculus of bile duct with acute cholecystitis with obstruction Choledocholithiasis Chronic obstructive pulmonary disease (COPD) ([facility]) Crush injury lower extremities 1966 Left leg and foot Cutaneous abscess of chest wall Disease of sebaceous glands Diverticulosis Diverticulosis of colon Epidermal cyst Epigastric pain Esophageal ulcer with bleeding GERD (gastroesophageal reflux disease) Hip fracture (HCC) 2003 Left Hyperlipidemia Inflamed seborrheic keratosis Inguinal [...] of skin 2010 Right hand [facility]/ left upper limb, inc shoulder Upper gastrointestinal bleeding Past Surgical History: Procedure Laterality Date BACK SURGERY 1981 Lower back COLONOSCOPY 09/23/2013 [facility] ENDOSCOPY 08/10/2013 [facility] ERCP N/A 08/14/2017 Procedure: ERCP; Surgeon: Jamey Hdz MD; Location: [facility] MEDICAL PROCEDURE UNIT HIP FRACTURE SURGERY Left 2002 Pinning. Repeat in 2003 INGUINAL HERNIA REPAIR 2007 KNEE SURGERY 1968 KNEE SURGERY Right 1967 Open fracture reduction and internal fixation right knee in 1967 LAMINECTOMY Leg surgery Left 1959 Seven Reconstructive surgeries on his left leg and foot in the 1960's with metal remaining . LUMBAR VERTEBRAL FUSION OTHER SURGICAL HISTORY Endobiliary stent placed at [facility] Removal of lesion Right 2010 Right hand and right ear and right hand [address] Flowers RETINAL DETACHMENT SURGERY 2004 Five surgeries on his right eye for retinal detachment in 2003 and 2005 VASECTOMY Family History Problem Relation Age of Onset Cancer Mother Abdominal aortic aneurysm Father Coronary artery disease Sister Heart disease Brother Coronary artery disease Brother Coronary artery disease Brother Coronary artery disease Brother Colon cancer Neg Hx Family Status Relation Name Status Mother at age 85 Father at age 54 Sister (Not Specified) Brother (Not Specified) Brother (Not Specified) Brother (Not Specified) Neg Hx (Not Specified) Social History Socioeconomic History Marital status: Spouse name: Not on file Number of children: Not on file Years of education: Not on file Highest education level: Not on file Tobacco Use Smoking status: Former Smoker Packs/day: 3.00 Years: 40.00 Pack years: 120.00 Types: Cigarettes Start date: 1949 Last attempt to quit: 1989 Years since quittin.6 Smokeless tobacco: Never Used Substance and Sexual Activity Alcohol use: Yes Alcohol/week: 1.2 - 1.8 oz Types: 2 - 3 Cans of beer per week Drug use: No CURRENT MEDICATIONS Current Outpatient Medications Medication Sig Dispense Refill albuterol-ipratropium (DUONEB) 2.5-0.5 mg/3 mL SOLN 3 mLs Every 8 hours. apixaban (ELIQUIS) 5 mg tablet Take 5 mg by mouth 2 times daily. dilTIAZem (DILTIAZEM CD) 240 MG 24 hr capsule DilTIAZem CD 240MG Oral Capsule Extended Release 24 Hour QTY: 30 Days: 0 Refills: 11 Written: 05/23/17 Patient Instructions: 1 once a day furosemide (LASIX) 20 mg tablet Furosemide 20MG Oral Tablet QTY: 90 Days: 0 Refills: 3 Written: 05/23/17 Patient Instructions: 1 once a day lisinopril (PRINIVIL, ZESTRIL) 20 mg tablet Lisinopril 20MG Oral Tablet QTY: 90 Days: 0 Refills: 3 Written: 05/23/17 Patient Instructions: 1 once a day loratadine (CLARITIN) 10 mg tablet Claritin 10MG Oral Tablet QTY: 0 tablet Days: 0 Refi lls: 0 Written: 08/03/15 Patient Instructions: omeprazole (PRILOSEC) 40 MG capsule Take 40 mg by mouth every morning (before breakfast ). pravastatin (PRAVACHOL) 10 mg tablet Pravastatin Sodium 10MG Oral Tablet QTY: 30 Days: 0 Refills: 11 Written: 05/23/17 Patient Instructions: 1 once a day ursodiol (PRASANTH) 250 mg tablet Take 250 mg by mouth 3 times daily. No current facility-administered medications for this visit. ALLERGIES Allergies Allergen Reactions Budesonide-Formoterol Fumarate Shortness Of Breath Reaction: "I can't breathe when I use it." Eucalyptus Oil Shortness Of Breath Other reaction(s): Asthma, Shortness of Breath Fluticasone-Salmeterol Shortness Of Breath Other reaction(s): Asthma, Shortness of Breath Diclofenac Sodium AKA "Voltaren" - I don't know Hydrochlorothiazide Rash ROS I have reviewed the Review of Systems form dated today and scanned into the media tab. OBJECTIVE: PHYSICAL EXAM BP 130/68 | Pulse 76 | Resp 16 | Ht 1.803 m (5' 11") | Wt 72.1 kg (159 lb) | BMI 22.18 kg/m Physical Exam ECG: Reviewed by me notable for atrial fibrillation, heart rate 75, RBBB. LAB RESULTS: LIPID No results found for: CHOL, TRIG, HDL, LDL, CHOLHDL, LDLEX, HDLEX, TRIGEX, CHOLEX CHEMISTRY Lab Results Component Value Date GLU 108 08/14/2017 GLUEX 107 (A) 01/01/2019 NA 141 08/14/2017 NAEX 134 01/01/2019 K 4.3 08/14/2017 KEX 4.4 01/01/2019 CL 102 08/14/2017 CLEX 97 01/01/2019 CO2 30 08/14/2017 CO2EX 28 01/01/2019 CALCIUM 9.2 08/14/2017 ALKPHOS 65 08/14/2017 AST 18 08/14/2017 ASTEX 10 (A) 01/01/2019 ALT 15 08/14/2017 ALTEX 7 01/01/2019 BILITOT 0.8 08/14/2017 CREA 0.85 08/14/2017 BUN 13 08/14/2017 EGFR >60 08/13/2013 EGFREX 84 01/01/2019 CREEX 0.87 01/01/2019 HEMATOLOGY Lab Results Component Value Date WBC 7.6 08/14/2017 WBCEX 10.3 01/01/2019 HGB 14.3 08/14/2017 HGBEX 11.8 (A) 01/01/2019 HCT 44.0 08/14/2017 HCTEX 36.4 (A) 01/01/2019 PLT 198 08/14/2017 PLTEX 423 01/01/2019 I reviewed records from PCP for office visit on 10/23/18. ASSESSMENT: 1. Chronic atrial fibrillation - patient has had a history of good rate control on his pre vious regimen of diltiazem, however, given significant increase in his use of beta agonist n ebulizer therapy at home, he has been experiencing worsening rate control and episodic tachy cardia. For now we will continue his current medical regimen, and have asked him to, if pos sible, diminish the extent of his beta agonist usage. I will refer him to pulmonary consult ation to help modify his inhaler regimen. I will have him undergo a Holter monitor to bari r determine his rate control. I will also have him undergo an echocardiogram to assess for any evidence of cardiomyopathy and determine left atrial dimensions. We also discussed impo rtance of adequate hydration and avoiding stimulants and caffeine as much as feasible. I wi ll see him in follow-up in a few weeks. PLAN: 1. Holter monitor. 2. Echocardiogram. 3. Continue current medications for now. Minimize use of beta agonist inhaler usage as mu ch as feasible. 4. Pulmonary consultation. 5. Optimize hydration and minimize use of caffeine/stimulants. 6. Follow-up visit in a few weeks. Portions of this report were transcribed using voice recognition software. Every effort wa s made to ensure accuracy; however, inadvertent computerized metal bonding worker errors may be pre sent. Electronically signed by: Salvador Abreu MD PhD FACC 01/09/2019 documented in t his encounter Miscellaneous Notes Addendum Note - Joan Patel RN - 01/09/2019 1:00 PM PDT Addended by: JOAN PATEL on: 01/13/2019 14:14 Modules accepted: Orders documented in this encounter Plan of Treatment + + +--------+ + + | Name | Type | Priori | Associated Diagnoses | Order Schedule | | | | ty | | | + + +--------+ + + | Ambulatory Referral | Outpatient | Routin | Chronic | Ordered: 01/13/2019 | | to [facility] | Referral | e | obstructive | | | Pulmonology | | | pulmonary disease, | | | | | | unspecified COPD | | | | | | type (HCC) | | + + +--------+ + + documented as of this encounter Procedures + +--------+ + + + | Procedure Name | Priori | Date/Time | Associated Diagnosis | Comments | | | ty | | | | + +--------+ + + + | ECG 12 LEAD | Routin | 01/09/2019 | Atrial | Results for this | | | e | 12:59 PM | fibrillation, | procedure are in the | | | | PDT | unspecified type | results section. | | | | | (HCC) Essential | | | | | | hypertension | | + +--------+ + + + documented in this encounter Results Holter monitor - 24 hour (03/27/2019 4:05 PM PST) + + + | Narrative | Performed At | + + + | Maximilian Abreu MD 04/01/2019 5:11 PM | [facility] | | PATIENT NAME: William Burns : 1935: AGE: | | | 84 y.o. PRIMARY CARE: | | | SHAHEEN Toro READING CLINICAL TRIAL LEADER: Salvador Abreu MD, | | | PhD, [facility] 48-HOUR HOLTER MONITOR REPORT DATE: 03/26/2019 | | | FINDINGS: 1) The predominant rhythm is sinus with | | | HR between 47 and 74 bpm. The average HR was 58 bpm during the | | | 23:33 hour recording. 2) There were 2173 Ventricular beats with 8 | | | couplets and no triplets. 3) There were 2 episodes of trigeminy. | | | The longest was 2 cycles on Sunday 18:54. 4) There were 235 | | | episodes of bigeminy. The longest was 25 cycles on 01:15. | | | 5) There were 98052 Supraventricular beats with 558 couplets and | | | 78 triplets. 6) There were 20 SVE runs. The longest was 8 beats | | | on Sunday 16:26. The fastest was 121 bpm on 14:30. 7) | | | There were 707 episodes of bradycardia. The longest was 47 | | | beats on 02:09. The minimum rate was 38 bpm on | | | 00:12. 8) There were no episodes of tachycardia. 9) Diary was | | | returned but no symptoms were reported. IMPRESSION: 1. | | | 24-hour Holter monitor notable for underlying sinus rhythm with | | | mean heart rate 58. 2. Frequent PVCs without significant sustained | | | runs. 3. Frequent PACs without significant sustained runs, | | | comprising 14% of all beats. 4. Mild predominantly nocturnal | | | bradycardia without pauses. 5. No symptoms reported. | | | Signed by: Salvador Abreu MD PhD [facility] 03/27/2019, 16:05 | | + + + + +---------+ + + | Performing | Address | City/State/Zipcode | Phone Number | | Organization | | | | + +---------+ + + | [facility] | | | | + +---------+ + + ECHO Complete (03/26/2019 2:55 PM PST) + [...] | | | | | | n [place] | | | | | + + [...] | | | | | | n [place] | | | | | + + [...] Demographics Patient Name NATALI | | | WILLIAM SOTO Room Number Patient Number [id number] Date | | | of Study 03/26/2019 Visit Number [id number] | | | Referring Physician JON ABREU MD Accession | | | [id number] Cloth Finishing Range Operator IRAJ DÍAZ Number | | | Date of 1935 Interpreting | | | JON ABREU MD | | | Physician Age 84 year(s) Nurse Gender | | | Male Stress Liquor Grinding Mill Operator Procedure | | | Type of Study [...] | | | Electronically signed by JON ABREU MD (Interpreting physician) on | | | [...] Ingram Results In - 03/26/2019 5:04 PM [facility] Transthoracic Echocardiography Report | | (TTE) Demographics Patient Name NATALI SOTO Room Number Patient Number | | [id number] Date of Study 03/26/2019 Visit Number [id number] | | Referring Physician OJN ABREU MD Cloth Finishing Range Operator | | IRAJ DÍAZ Number Date of 1935 Interpreting | | JON ABREU MD Physician Age 84 year(s) | | [...] | | | + +---------+ + + ECG 12 lead (01/09/2019 12:59 PM PDT) + + + + + + | Component | Value | Ref Range | Performed | Pathologist | | | | | At | Signature | + + + + + + | VENTRICULAR | 75 | BPM | [facility] | | | RATE EKG | | | | | + + + + + + | ATRIAL RATE | 234 | BPM | [facility] | | + + + + + + | QRS | 132 | ms | [facility] | | | DURATION | | | | | + + + + + + | Q-T | 406 | ms | [facility] | | | INTERVAL | | | | | + + + + + + | Q-T | 453 | ms | [facility] | | | INTERVAL | | | | | | (CORRECTED) | | | | | + + + + + + | QRS AXIS | 2 | degrees | [facility] | | + + + + + + | T AXIS | 57 | degrees | [facility] | | + + + + + + | INTERPRETAT | Atrial fibrillationRight | | [facility] | | | ION TEXT | bundle branch | | | | | | blockAbnormal ECGNo | | | | | | previous ECGs | | | | | | availableConfirmed by | | | | | | JON ABREU MD | | | | | | ([id number]) on 01/09/2019 | | | | | | 6:28:46 PM | | | | + + + + + + + + | Specimen | + + | | + + + + + | Narrative | Performed At | + + + | | | + + + + +---------+ + + | Performing | Address | City/State/Zipcode | Phone Number | | Organization | | | | + +---------+ + + | [facility] | | | | + +---------+ + + documented in this encounter Visit Diagnoses + + | Diagnosis | + + | Atrial fibrillation, unspecified type (HCC) - Primary | + + | Right fascicular block Right bundle branch block | + + | Essential hypertension Unspecified essential hypertension | + + | Raynaud's disease without gangrene | + + | Mixed hyperlipidemia | + + | Abnormal EKG: RBBB, R FASB Nonspecific abnormal electrocardiogram (ECG) (EKG) | + + | Chronic obstructive pulmonary disease, unspecified COPD type (HCC) | + + documented in this encounter
--- OUTSIDE RECORDS SUMMARY | ~2020-02-16 | XMS | Encounter Summary ---
Demographics + + + | Address | [address] | | | [place] [address] | + + + | Home Phone | | + + + | Preferred Language | Unknown | + + + | Marital Status | | + + + | Adventist Affiliation | Unknown | + + + [...] Team Providers + +------+ + | Care Electronics Processing Supervisor Name | Role | Phone | [...] [address] | | | | | [place], | [address] [place] | | | | | [place] [address] | [place] [address] | | | | | [phone] | [phone] | | | | | | | [...]
--- OUTSIDE RECORDS SUMMARY | ~2020-02-16 | XMS | Encounter Summary ---
Demographics + + + | Address | [address] | | | [place] [address] | + + + | Home Phone | | + + + | Preferred Language | Unknown | + + + | Marital Status | | + + + | Judaism Affiliation | NON | + + + | Race | White | + + + | Ethnic Group | Not or | + + + Author + + + | Author | [facility] | + + + | Organization | [facility] | + + + | [...] Providers + +------+ + | Care Manager Technical Sales Name | Role | Phone | + +------+ + | Herlinda Maldonado | PCP | | + +------+ + Encounter Details +--------+ + + + + | Date | Type | Department | Care Team | Description | +--------+ + + + + | 06/28/ | Document-Sc | Health Information | Other, Faculty | | | 2018 | anned | Services [address] | [phone] | | | | | [address] | | | | | | Mailcode: OP17A | | | | | | [facility] | | | | | | [place], [place] | | | | | | [address] | | | | | | [phone] | | | +--------+ + + + [...]
--- OUTSIDE RECORDS SUMMARY | ~2020-02-16 | XMS | Clinical Summary ---
Demographics + + + | Address | [address] | | | [place] [address] | + + + | Home Phone [...] + + | Author | [facility] | + + + | Organization | [facility] | + + + | Address | Unknown | + + + | Phone | Unavailable | + + + Support + + +---------+ + | Name | Relationship | Address | Phone | + + +---------+ + | None Per Pt | ECON | Unknown | Unavailable | + + +---------+ + Care Team Providers + +------+ + | Care Casino Porter Name | Role | Phone | + +------+ + | Herlinda Maldonado | PCP | | + +------+ + Source Comments BETTINA is fully live on both [facility] Ambulatory and [facility] InPatient.[facility] Allergies + + + + + + [...] | | | | 88 | | [facility] INPATIENT REV LOC | | | | | | | + +------+--------+ +--------+--------+--------+ | Washer 13mm 6.6mm Lcp | | Left: | [employer] | | | 219.99 | | Orthopedic [employer] | | Hip | | | | / / | | 4.5-7.3mm Screw Nonsterile - | | | | | | | | [id number]: Qty: 2 on | | | | | | | | 06/03/2018 by Working, | | | | | | | | Nguyễn Chance MD at [facility] | | | | | | [...] | | | | | | | [id number]: Qty: 1 on | | | | | | | | 06/03/2018 by Working, | | | | | | | | Nguyễn Chance MD at [facility] | | | | | | [...] /[id number] | | Nguyễn Chance MD at [facility] | | | | | | [...] +--------+ | [employer] | [employer] | [id number] | 05/21/19 | [phone] | [address] | [employer]ica | | | MEDICA | | [address] | [address] | [address] | [address] | | | RE HMO | | sent | | [place], | | | | | | | | [place] [address] | | + +--------+ +--------+ + +--------+ + +--------+ +--------+ + + | Guarantor Name | Accoun | Relation to | Date | Phone | Billing Address | | | t Type | Patient | of | | | | | | | | | | + +--------+ +--------+ + + | iWlliam Burns | Person | Self | [birth year] | [address] | | | al/Fam | | 1935 | [phone] | [place] [address] | | | michelle | | | [...]
--- OUTSIDE RECORDS SUMMARY | ~2020-02-16 | XMS | Encounter Summary ---
Demographics + + + | Address | [address] | | | [place] [address] | + + + | Home Phone | | + + + | Preferred Language | Unknown | + + + | Marital Status | | + + + | Bahai Affiliation | Unknown | + + + | Race | White | + + + | Ethnic Group | Not or | + + + Author + + + | Author | [facility] | | | and [place] | + + + | Organization | [facility] | | | [...] Team Providers + +------+ + | Care Ship Laborer Name | Role | Phone | + [...] | [address] [place] | | | | | | [address] | | | | | | [address] | | | | | | [phone] | | | +--------+ + + + [...]
--- OUTSIDE RECORDS SUMMARY | ~2020-02-16 | XMS | Encounter Summary ---
Demographics + + + | Address | [address] | | | [place] [address] | + + + | Home Phone [...] Team Providers + +------+ + | Care Supervisor Pressing Department Name | Role | Phone | + +------+ + | Herlinda Maldonado | PCP | | + +------+ + Encounter Details +--------+ + + + + | Date | Type | Department | Care Team | Description | +--------+ + + + + | 06/03/ | Procedure | 6A Intra Op [id number] | | | | 2019 | Pass | [address]ERNA[address] | | | | | | [facility] | | | | | | Hospital Admitting | | | | | | Desk Located on the | | | | | | 9th floor | | | | | | [place], [place] | | | | | | [address] | | | +--------+ + + + [...]
--- OUTSIDE RECORDS SUMMARY | ~2020-02-16 | XMS | Encounter Summary ---
Demographics + + + | Address | [address] | | | [place] [address] | + + + | Home Phone | | + + + | Preferred Language | Unknown | + + + | Marital Status | | + + + | Denominational Affiliation | Unknown | + + + | Race | White | + + + | Ethnic Group | Not or | + + + Author + + + | Author | [facility] | | | and [place] | + + + | Organization | [facility] | | | [...] Team Providers + +------+ + | Care Acute Care Nurse Name | Role | Phone | [...] | | | | | | | DE ERCP DX | | | | | | | COLLECTION | | | | | | | SPECIMEN | | | | | | | BRUSHING/WAS | | | | | | | JOSE DE | | | | | | | ERCP | | | | | | | BILIARY/PANC | | | | | | | DUCT STENT | | | | | | | EXCHANGE | | | | | | | W/DIL&WIRE | | | | | | | DE | | | | | | | [...] [facility] | P, [address] | | | | | [address] | [address] [place], [place] | | | | | [place], [place] | [address] | | | | | [address] | | | | | | [phone] | | | +--------+ + + + + Anesthesia Record + + + + + | Procedure Name | Responsible | Anesthesia Start | Anesthesia Stop Time | | | Anesthesiologist | Time | | + + + + + | ERCP (N/A Remy) | Tono Dominguez, | 08/14/17 [...] | 08/14/17 1512 by Juanpablo | | eral | [id number] catheter system; | Precious Remy RN | [...] EVALUATION William Burns 82 y.o. male 1935 [id number] Procedure(s) ERCP (N/A Mouth) Cooperates? Yes Mental [...] signed by Tono Dominguez MD 08/14/2017 18:40 [facility] nesthesia Procedure Notes - Tono Dominguez MD [...] EVALUATION William Burns 82 y.o. male 1935 [id number] Procedure(s): ERCP (N/A Mouth) Review of Systems [...] | |Electronically Signed by: Tono Dominguez MD ESilydia date/time : 08/14/2017 13:32 | | | [...]
--- OUTSIDE RECORDS SUMMARY | ~2020-02-16 | XMS | Encounter Summary ---
Demographics + + + | Address | [address] | | | [place] [address] | + + + | Home Phone | | + + + | Preferred Language | Unknown | + + + | Marital Status | | + + + | Mandaeism Affiliation | Unknown | + + + | Race | White | + + + | Ethnic Group | Not or | + + + Author + + + | Author | [facility] | | | and [place] | + + + | Organization | [facility] | | [...] + +------+ + | Care Director Of Spa And Guest Experience Name | Role | Phone | + [...] | Pulmonary | Diagnoses | Lois, | Ravinder Karoline | | | Services | Disease / | Chronic | Maximilian | MD Merle | | | Required | Pulmonology | obstructive | MD Jon | [address] | | | | | pulmonary | [address] | [address] [place] | | | | | disease, | [place] | [place], [place] | | | | | unspecified | [place], [place] | [address] Phone: | | | | | COPD type | [address] | [phone] | | | | | ([facility]) | Phone: | Fax: | | | | | | [phone] | [phone] | | | | | | Fax: | | | | | | | [phone] | | +--------+ + + + + + Reason for Visit + + + | Reason | Comments | + + + | Follow-up | | + + + | Atrial Fibrillation | | + + + Evaluate & [...] fibrillation | [address] | [address] | | | | | ([facility]) | Addy Villagomez | [address] | | | | | Procedures | [place], | [place] | | | | | [employer] | [place] | [address] Phone: | | | | | | [address] | [phone] | | | | | | Phone: | Fax: | | | | | | [phone] | [phone] | | | | | | Fax: | | | | | | | [phone] | | +--------+--------+ + + + + Encounter Details +--------+---------+ + + + | Date | Type | Department | Care Team | Description | +--------+---------+ + + + | 04/09/ | Office | [facility] | Lois Maximilian | Chronic obstructive | | 2018 | Visit | CARDIOLOGY [address] | MD Jon [address] | pulmonary disease, | | | | [place], | [address] [place] | unspecified COPD | | | | [place] [address] | [place] [address] | type (HCC) (Primary | | | | [phone] | [phone] | Dx) | | | | | | | +--------+---------+ + + + [...] + + + | Blood Pressure | 148/84 | 04/09/2019 1:07 PM | | | | | PST | | + + + + + | Pulse | 60 | 04/09/2019 1:07 PM | | | [...] + + + + | Weight | 75.1 kg (165 lb 9.1 | 04/09/2019 1:07 PM | | | | oz) | PST | | + + + + + | Height | 180.3 cm (5' 11") | 04/09/2019 1:07 PM | | | | | PST | | + + + + + | Body Mass Index | 23.09 | 04/09/2019 1:07 PM | | | | | PST | | + + + + + documented in this encounter Progress Notes Maximilian Abreu MD - 04/09/2019 1:00 PM PSTFormatting of this note might be differe nt from the original. PATIENT NAME: William Burns : 1935: AGE: 84 y.o. REFERRED BY: Maximilian Abreu MD PRIMARY CARE: SHAHEEN Toro CARDIOLOGY OFFICE VISIT Date of Service: 04/09/19 HISTORY OF PRESENT ILLNESS: William Burns "Carlos" is a 84 y.o. male with a history of chronic atrial fibrillation a nd COPD. He is being seen today for a follow-up visit. He presents with his friend Hermelinda. Since our last visit, he has been doing well from a cardiovascular standpoint without any complaints of palpitations or lightheadedness. He has been compliant with his medications. He states that he checks his pulse periodically and finds to be in the range of 60. He is awaiting further consultation with pulmonology. He underwent noninvasive diagnostics as sum marized below. Pertinent historical clinical information: Patient was initially referred for further evaluation given history of chronic atrial fibri llation and previous presentation with rapid ventricular rate. Patient describes that he marcial sn't had good rate control and has been fairly asymptomatic for a long time on his previous diltiazem regimen. However, in the recent past he has had difficulty controlling his tachya rrhythmia, presentations to the emergency department in the recent past. This coincided wit h recent significant increase in the frequency of his use of his nebulizer at home given wor sening COPD symptoms. He states that in the past he was using it once a day, but more recen tly has been increased to 6 times a [...] BACK SURGERY 1981 Lower back COLONOSCOPY 09/23/2013 [facility] ENDOSCOPY 08/10/2013 [facility] ERCP N/A 08/14/2017 Procedure: ERCP; Surgeon: Jamey Hdz MD; Location: [facility] MEDICAL PROCEDURE UNIT HIP FRACTURE [...] OTHER SURGICAL HISTORY Endobiliary stent placed at [facility] Removal of lesion Right 2010 Right hand and right ear and right hand [address] Flowers RETINAL DETACHMENT SURGERY 2003 Five surgeries on his right eye for retinal detachment in 2003 and 2004 VASECTOMY Family History Problem Relation Age of [...] Last attempt to quit: 1989 Years since quittin.9 Smokeless tobacco: Never Used Substance and Sexual Activity Alcohol use: Yes Alcohol/week: 2.0 - 3.0 standard drinks Types: 2 - 3 Cans of beer per week Drug use: No CURRENT MEDICATIONS Current Outpatient Medications Medication Sig Dispense Refill albuterol-ipratropium (DUONEB) 2.5-0.5 mg/3 mL SOLN 3 mLs Every 8 hours. apixaban (ELIQUIS) 5 mg tablet Take 5 mg by mouth 2 times daily. dilTIAZem (CARDIZEM CD) 180 mg 24 hr capsule Take 180 mg by mouth nightly. dilTIAZem (DILTIAZEM CD) 240 MG 24 hr capsule DilTIAZem CD 240MG Oral Capsule Extended Release 24 Hour QTY: 30 Days: 0 Refills: 11 Written: 05/23/17 Patient Instructions: BID loratadine (CLARITIN) 10 mg tablet Claritin 10MG Oral Tablet QTY: 0 tablet Days: 0 Refi lls: 0 Written: 08/03/15 Patient Instructions: omeprazole (PRILOSEC) 40 MG capsule Take 40 mg by mouth every morning (before breakfast ). pravastatin (PRAVACHOL) 10 mg tablet Pravastatin Sodium 10MG Oral Tablet QTY: 30 Days: 0 Refills: 11 Written: 05/23/17 Patient Instructions: 1 once a day No current facility-administered medications for this visit. [...] the media tab. OBJECTIVE: PHYSICAL EXAM BP 148/84 | Pulse 60 | Resp 18 | Ht 1.803 m (5' 11") | Wt 75.1 kg (165 lb 9.1 oz) | BM I 23.09 kg/m Physical Exam Constitutional: He appears well-developed and well-nourished. He does not appear ill. No di stress. Cardiovascular: Normal rate, S1 normal, S2 normal, normal heart sounds and intact distal pu lses. An irregularly irregular rhythm present. Pulses: Carotid pulses are 2+ on the right side and 2+ on the left side. Radial pulses are 2+ on the right side and 2+ on the left side. Pulmonary/Chest: Effort normal and breath sounds normal. Musculoskeletal: General: No edema. Vitals reviewed. ECG: Reviewed by me notable for atrial [...] PLT 198 08/14/2017 PLTEX 423 01/01/2019 I previously reviewed records from PCP for office visit on 10/23/18. Cardiovascular diagnostic testing interpreted and reviewed by me with the patient today: Echocardiogram March 2019 Left ventricle is normal in size and function. Ejection fracti on is estimated at 62%. Impaired relaxation compatible with diastolic dysfunction (reversed E/A ratio). Structurally normal mitral valve with mild insufficiency. Structurally normal tr icuspid valve with mild to moderate insufficiency and peak velocity consistent with RVSP 50- 55 mmHg. Left atrium is mildly enlarged. 24-hour Holter monitor March 2019 notable for underlying sinus rhythm with mean heart ra te 58. Frequent PVCs without significant sustained runs. Frequent PACs without significant sustained runs, comprising 14% of all beats. Mild predominantly nocturnal bradycardia withou t pauses. No symptoms reported. ASSESSMENT: 1. Paroxysmal atrial fibrillation - patient has had a history of good rate control on his previous regimen of diltiazem, however, given significant increase in his use of beta agonis t nebulizer therapy at home, he has been experiencing worsening rate control and episodic ta chycardia. Recent ambulatory monitoring demonstrates fairly good rate control. He has been attempting to minimize use of his beta agonist inhaler. For now we will continue his curre nt medical regimen. I will refer him to pulmonary consultation to help modify his inhaler r egimen. There is no indication for further cardiovascular diagnostics at this point. We on ce again discussed importance of adequate hydration and avoiding stimulants and caffeine as much as feasible. I will see him in follow-up in 6-12 months. PLAN: 1. No further cardiovascular diagnostics. 2. Pulmonary consultation. 3. Continue current medications for now. Minimize use of beta agonist inhaler usage as mu ch as feasible. 4. Follow-up visit in 6-12 months. 5. Optimize hydration and minimize use of caffeine/stimulants. Portions of this report were transcribed using voice recognition software. Every effort wa s made to ensure accuracy; however, inadvertent computerized social media marketing manager errors may be pre sent. Electronically signed by: Salvador Abreu MD PhD [facility] 04/09/2019 documented in t his encounter Plan of Treatment + + +--------+ + + | Name | Type | Priori | Associated Diagnoses | Order Schedule | | | | ty | | | + + +--------+ + + | Ambulatory Referral | Outpatient | Routin | Chronic | Ordered: 04/09/2019 | | to Pulmonology | Referral | e | obstructive | | | | | | pulmonary disease, | | | | | | unspecified COPD | | | | | | type (HCC) | | + + +--------+ + + documented as of this encounter Visit Diagnoses + + | Diagnosis | + + | Chronic obstructive pulmonary disease, unspecified COPD type (HCC) - Primary | + + documented in this encounter
--- OUTSIDE RECORDS SUMMARY | ~2020-02-16 | XMS | Encounter Summary ---
Demographics + + + | Address | [address] | | | [place] [address] | + + + | Home Phone | | + + + | Preferred Language | Unknown | + + + | Marital Status | | + + + | Congregational Affiliation | NON | + + + | Race | White | + + + | Ethnic Group | Not or | + + + Author + + + | Author | [facility] | + + + | Organization | [facility] | + + + | Address | Unknown | + + + | Phone | Unavailable | + + + Support + + +---------+ + | Name | Relationship | Address | Phone | + + +---------+ + | None Per Pt | ECON | Unknown | Unavailable | + + +---------+ + Care Team Providers + +------+ + | Care Emr Implementation Specialist Name | Role | Phone | + [...] + | 05/31/ | Hospital | [facility] [address] | Ashwini Ruggiero MD | | | 2019 - | Encounter | [address] | [address] | | | | | [place], | [address] | | | 06/06/ | | [place] [address] | [place], [place] | | | 2018 | | [phone] | [address] | | | | | | [phone] | | | | | | | | | | | | Nguyễn Shepard, | | | | | | [address] | | | | | | [address] | | | | | | [place], [place] | | | | | | [address] | | | | | | [phone] | | | | | | | [...] might be differe nt from the original. [facility] DEPARTMENT OF ORTHOPAEDICS & REHABILITATION INPATIENT HOSPITAL DISCHARGE SUMMARY & INTERDISCIPLINARY INSTRUCTIONS Patient: Lilian Hurst CSN: [id number] Admission Date: 05/31/2018 Discharge Date: 06/06/2018 Attending Physician: Nguyễn Shepard MD PCP: SHAHEEN Love Service: [facility] Orthopaedics & Rehabilitation Diagnoses Principal Final Diagnosis: [...] suspect your wound is infected. Call [facility] Orthopedics first at [phone]. Activity NON Weight bearing on left leg. For approximately 4 weeks to be determined at postoperative clinic visit. Condition on Discharge Stable Follow-Up Appointments ORTHOPEDICS OUTPATIENT CLINIC: Future Appointments Provider Department Dept Phone Center 07/02/2018 1:40 PM Nguyễn Chance Working Orthopaedics at [facility] [phone] Orthopedics PCP: As needed for any medical [...] by mouth once daily at bedtime. [facility] Orthopaedic Service Pain Policy At the 6-week [...] administration instructions. - Call Orthopedic Clinic at [phone] if any persistent, localized swelling that does [...] and ask for the orthopaedic surgery resident vacuum evaporation operator. Additional Post-Op Instructions / What to Expect [...] feel that you will need more, call [phone] during business hours in order to get [...] a SNF "I certify that post-hospital inpatient residential facility care is medically necessar y on [...] Condition on Discharge: Improved Discharging Patient To: [facility] Facility Date and Time of Discharge Summary Completion: 06/07/2018, 2:45 PM Discharging Provider: ELISE Mckeon Discharging Attending: Nguyễn Shepard MD Thank you for the opportunity to take care of Lilian Hurst during this inpatient stay, it has been our pleasure. ELISE Mckeon [facility] Department of Orthopaedics & Rehabilitation [address] [place] [address] Mail Code: OP31 [facility] [id number] documented in t his encounter Medications at [...] have left pelvic fracture, transferred to [facility] Orthopedic Surgery service for surg ical management. [facility] initially consulted for pre-operative evaluation. Nausea/Vomiting Presumptive [...] he uses sparingly. On arrival to [facility] he was on 4 L NC and [...] Sanchez MD Attending Physician Clinical Hospitalist Services [facility] Pager [phone] Please call or page me with any questions or concerns. Doe Newman MD - 06/06/2018 9:11 AM PST Orthopaedic Surgery Progress Note Patient: /Age: MRN: CSN: Date: Admission Date: Hospital Day: Orthopaedic Attending: Lilian Hurst 1935 83 y.o. [id number] 06/06/2018 05/31/2018 6 Nguyễn Shepard MD Diagnosis: [...] have left pelvic fracture, transferred to [facility] Orthopedic Surgery service for surg ical management. [...] he uses sparingly. On arrival to [facility] he was on 4 L NC and [...] Sanchez MD Attending Physician Clinical Hospitalist Services [facility] Pager [phone] Please call or page me with any questions or concerns. Doe Newman MD - 06/05/2018 7:10 AM PST Orthopaedic Surgery Progress Note Patient: /Age: MRN: CSN: Date: Admission Date: Hospital Day: Orthopaedic Attending: Lilian Hurst 1935 83 y.o. [id number] 06/05/2018 05/31/2018 5 Nguyễn Shepard MD Diagnosis: [...] [facility]O [facility] & FRACTURE, [...] refill < 2 seconds Doe Gongora MD [facility] Department of Orthopaedics & Rehabilitation [address] [place] [address] Mail Code: 31 [place] [address] Kg Snider MD - 06/04/2018 [...] have left pelvic fracture, transferred to [facility] Orthopedic Surgery service for surg ical management. [facility] initially consulted for pre-operative evaluation. Nausea/Vomiting Emesis [...] he uses sparingly. On arrival to [facility] he was on 4 L NC and [...] Sanchez MD Attending Physician Clinical Hospitalist Services [facility] Pager [phone] Please call or page me with any questions or concerns. oulton, Devendra Allen MD - 06/04/2018 7:48 AM PST Orthopaedic Surgery Progress Note Patient: /Age: MRN: CSN: Date: Admission Date: Hospital Day: Orthopaedic Attending: Lilian Hurst 1935 83 y.o. [id number] 06/04/2018 05/31/2018 4 Nguyễn Shepard MD Diagnosis: [...] with ORTHO TRAUMA & FRACTURE, Ana Gill, GRAPPLE SKIDDER OPERATOR - (Jie a nd Working) Subjective: Has [...] refill < 2 seconds Doe Gongora MD [facility] Department of Orthopaedics & Rehabilitation [address] [place] [address] Mail Code: OP31 [facility] [address] Devendra Scales MD - 06/03/2018 8:32 PM PST [facility] DEPARTMENT OF ORTHOPAEDICS & REHABILITATION [...] MD Orthopaedic Surgery Resident 06/03/2018, 8:33 PM [facility] Department of Orthopaedics & Rehabilitation [address] [place] [address] Mail Code: OP31 [facility] [id number] Jade Messina MD - 06/02/2018 8:36 AM [...] Please call Orthopaedic Trauma and Fracture at [phone] to schedule a followup within 2 weeks from discharge. ALEXA SEARS MD Pager: [phone] 06/02/2018 Doe Newman MD - 06/01/2018 8:27 AM PST Orthopaedic Surgery Progress Note Patient: /Age: MRN: CSN: Date: Admission Date: Hospital Day: Orthopaedic Attending: Lilian Hurst 1935 83 y.o. [id number] 06/01/2018 05/31/2018 1 Nguyễn Shepard MD Diagnosis: [...] make a follow up appointment in [facility] 2-3 weeks with ORTHO TRAUMA & FRACTURE, [...] seconds Reflexes: not performed Doe Gongora MD [facility] Department of Orthopaedics & Rehabilitation [address] [place] [address] Mail Code: OP31 [facility] [address] documented in this enco unter Procedure Notes Drea, Nguyễn Chance MD - 06/03/2018 4:58 PM PSTAssociated Order(s): OPERATION RECORDProced ure(s): [place] OPEN RETAIL FIELD REPRESENTATIVE FIX COMPLEX ACETABUL FXPre-Procedure Diagnose(s): Closed fracture of both anterior and posterior columns of left acetabulum (HCC)Post-Procedure Diagnose(s): Clos ed fracture of both anterior and posterior columns of left acetabulum (HCC)Date of Service: 06/03/2018 Attending Surgeon: Nguyễn Shepard MD Mine Administrator Supervisor(s): Devendra Da Silva MD. Preoperative Diagnosis: Left [...] He was transferred to [facility]. A sacral bump consi sting of [...] 3 incisions. The patient was awoken from [facility] endotracheal anesthesia and transferred to the [...] was referred to my care at [facility] by another orthopaedic surgeon. The patient i s from the [facility] and traveled many miles to get to [facility], bypassing several other spitals due to the [...] surface. [facility]int [facility] care more difficult to render, and is quite noncompliant due to a comb ination of dementia and stubbornness which increases the risk of post operative complication dramatically. Please reflect all of this in the nature of the patients care. MD RAMA Altamirano/PRINCE /[id number] documented in this encounter Consult Notes Teresita Bobo PA-C - 06/05/2018 9:22 PM PSTINPATIENT GERIATRICS CONSULT - FOLLOW U P Admission Date: 05/31/2018 Hospital Day: 5 Referring Provider: Nguyễn Shepard MD Consulting Provider: TERESITA BOBO PA-C PCP: SHAHEEN Gustafson Consult Question: frailty and delirium management ID: Lilian Hurst (Frank) is an 83 y.o. 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 Please page consult pager [phone] if new questions for the geriatrics team [...] Sherly Ellison I spent 22 minutes in hzhi-dt-nbrs care of Mr Hurst and in discussion on his unit with other providers, with > 50% in counseling/coordination of care regarding delirium management and prevention, pain control, mobility, and chart review and documentation on the unit. ROBEL Mohan PA-C Inpatient Geriatrics Consult Service Division of Internal Medicine & Geriatrics [facility] Pager: [phone] Shannon Can H - 06/04/2018 6:04 PM PST Medical Student Gastroenterology Consult Note 06/04/2018 REASON FOR CONSULT: brown / black emesis concerning for GI bleed REFERRING TEAM/ATTENDING: [facility] / Daniel BAUTISTA IMPRESSION Resolving postoperative ileus [...] Guadalupe Santiago Jose Guadalupe Terriluann, MS4 Pgr [phone] HISTORY OF PRESENT ILLNESS Lilian Hurst is a 83 y.o. male with a past medical history significant for hemodynamic ally significant gastrointestinal bleed in 2013 on omeprazole, ongoing SVT, choledocholithia sis and cholangitis with ERCP s/p sphincterotomy and stenting on 06/2017, cholecystectomy, as piration pneumonitis, COPD, and hypertension. He was transferred to [facility] for left pelvic fracture now s/p left [...] on file Social History Narrative Originally from [place], [place], but moved for a time in his teens to [facility]. 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 Enjoys [employer] his garden each summer, watching westerns, and [...] HOSPITALIST DISCHARGE SUMMARY Patient ID: Lilian Hurst [id number] 78 y.o. 1935 Admit date: 08/10/2013 Discharge [...] loss. The patien t was brought to [facility] and was transferred to [facility] for a GI evaluation. Dr. Ca from gastroenterology was consulted because of the ac circle GI bleed. The patient was started on [...] endoscopy the patient was transferred to the [facility] floor. Serial hemoglobin and hematocrit were checked. [...] y.o. 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 Had onset of abdominal pain and bloating [...] pulmonary disease) ([facility]) GI bleed 2013 esophageal ulcer s/p clipping 2013 HTN (hypertension) Normocytic anemia Hgb around 11 in 2013 Prediabetes SVT (supraventricular tachycardia) ([facility]) unclear hx. "Possible SVT" per chart in 2012. Additional PMH per CareEverywhere records: Atrial fibrillation ([facility]) Choledocholithiasis Crush injury lower extremities 1965 Left leg and foot Diverticulosis of colon Hip fracture ([facility]) 2002 Left Hyperlipidemia Inguinal hernia Osteoarthritis, generalized [...] Social History Social History Narrative Originally from [place], [place], but moved for a time in his teens to [facility]. 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 Enjoys [employer] his garden each summer, watching westerns, and game shows. Lives in his own home next doo r to his daughter with his Mirian saez. Typical day: wakes at 6 am, putters in the kitchen; breakfast is two homemade oatmeal cook ies, coffee and tangerines. Mirian De Anda wakes around 9 and he feeds her. Spends a few hours on [facility] "to see what everyone is talking about," [...] moist mucous membran es, non-erythematous, no exudate. QUILEUTE. Dentition in fair repair. Cardiovascular: RRR with intermittent ectopic beats, no murmurs/rubs/gallops. No lower extr emity edema. Respiratory: Decreased breath sounds in bases L>R, otherwise clear. Breathing comfortably o n 2LPM by NC. Skin: Warm, dry, without rashes. Nails well trimmed. Neuro: Orientation: Oriented to self, location ("[facility], room 3"), date, year, president and [...] for: TSH Lab Results Component Value Date [id number] 8.3 06/26/2017 No results found for: FERRITIN [...] currently, "fighter" per Marianna Social: Originally from [place], but moved for a time in his teens to [facility]. 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 Enjoys g rowing his garden each [...] LIP to utilize delirium order set in [facility] to identify cause and guide appropriat e [...] Precious Bobo, Geriatrics [place] [phone] with any further nursing questions or concerns, if you would like t o speak with our senior technical editor vacuum evaporation operator, they can be reached at pager [phone]. Rosita Paul RN, [place] Geriatric Nurse Educator/PPL [phone] Vic Zhang MD - 06/03/2018 9:12 AM PST HOSPITALIST INPATIENT PROGRESS NOTE Author: Vic Petty MD, PhD PCP: SHAHEEN Love Hospital Day:3 ID: Lilian Hurst is a 83-year-old man with COPD and HTN who presented to an OSH after GLF, found to have left pelvic fracture, transferred to [facility] Orthopedic Surgery service for surgical management. [facility] consulted for pre-operative evaluation. 24h Events: --Started [...] have left pelvic fracture, transferred to [facility] Orthopedic Surgery service for surg ical management. [facility] consulted for pre-operative evaluation. # Pre-operative risk [...] he uses sparingly. On arrival to [facility] he was on 4L NC and has [...] PhD Clinical Hospitalist and Medicine Teaching Services [facility] Pager [phone] I spent more than 26 minutes jbsh-ii-lqvh with the patient of which greater than [...] best of my knowledge. Home medication assessment: PROSTHETICS TECHNICIAN medications updated per verbal [place] fill history [...] regarding this information please contact pharmacy, pager [phone] Thank you, Tabitha Calvert PharmD Critical Care [...] have left pelvic fracture, transferred to [facility] Orthopedic Surgery service for surgical management. [facility] [...] have left pelvic fracture, transferred to [facility] Orthopedic Surgery service for surg ical management. [facility] consulted for pre-operative evaluation. # Pre-operative risk [...] he uses sparingly. On arrival to [facility] he was on 4L NC and has [...] PhD Clinical Hospitalist and Medicine Teaching Services [facility] Pager [phone] I spent more than 28 minutes exoh-xs-[id number] with the patient of which greater than [...] have left pelvic fracture, transferred to [facility] Orthop edic Surgery service for surgical management. [facility] consulted for pre-operative evaluation. History derived from [...] hematoma. He was t ransferred to [facility] Orthopedic Surgery for surgical management. Current plan [...] done PFTs. He has a nebulizer at [facility], but uses it sparingly. At baseline, [...] 4L once he ar rived at [facility]. He has been sating between 88-94%, but [...] have left pelvic fracture, transferred to [facility] Orthopedic Surgery service for christina gical management. [...] he uses sparingly. On arrival to [facility] he was on 4L NC and has [...] PhD Clinical Hospitalist and Medicine Teaching Services [facility] Pager [phone] I spent 75 minutes in care of [...] Sunday - NWB ALLYSSA SEARS MD Pager: [phone] 05/31/2018 [facility] DEPARTMENT OF ORTHOPAEDICS & REHABILITATION [...] pulmonary disease) ([facility]) 2014: GI bleed Comment: esophageal ulcer s/p clipping 2013 No date: HTN (hypertension) No date: Normocytic anemia Comment: Hgb around 11 in 2013 No date: Prediabetes No date: SVT (supraventricular tachycardia) ([facility]) Comment: unclear hx. "Possible SVT" per chart [...] & FRACTURE, The orthopaedics consult pager is #[phone], please call with questions. Doe Gongora MD, MPH Orthopaedic Surgery Resident p [id number] signed by Nguyễn Shepard MD at 06/01/2018 [...] of Orthopedics & Rehabilitation - Orthopaedic Trauma [facility] documented in this encounter Miscellaneous Notes Plan [...] light/urinal/phones/yankour suction all in reach. Nurse notified. [facility] BASIC MOBILITY Difficulty turning over in [...] to do/total assistance - Total/Dependen t Assist [facility] Basic Mobility Total Score 16 Interpretation of [facility] Short Form - Basic Mobility: CMS [...] to be determined . Jodi Knowles, ANANYA [id number] andoff - Kiah Corral , RN - 06/05/2018 9:20 PM PSTNursing Handoff Patient Daily Goal: sleep (06/05/182039) Patient Specific Preferences: cluster care (06/05/182039) [facility] IP NURSE HANDOFF: [facility] hospital course events: [...] emesis x3 in AM Hx: COPD, HTN, AK 2018, stents, CHF, SVT SAFETY Patient/Family Target: [...] Patient Specific Preferences: cluster care (06/04/182024) [facility] IP NURSE HANDOFF: [facility] hospital course events: [...] emesis x3 in AM Hx: COPD, HTN, AK 2018, stents, CHF, SVT SAFETY Patient/Family Target: [...] Patient Specific Preferences: cluster care (06/04/182024) [facility] IP NURSE HANDOFF: [facility] hospital course events: [...] emesis x3 in AM Hx: COPD, HTN, AK 2018, stents, CHF, SVT SAFETY Patient/Family Target: [...] Patient Specific Preferences: cluster care (06/01/182041) [facility] IP NURSE HANDOFF: [facility] hospital course events: 05/31: tx from [facility]. Fell 05/30- left hip and pelvic fx 06/01: skeletal traction 06/02: Elevated HR EKG showed SR with PACs. Takes dilt at baseline (none since admission), s tarted on 6.25 mg metop noc 06/02. 06/03 early am 4 beats of v-tach 06/04: coffee ground emesis x3 in AM Hx: COPD, HTN, AK 2018, stents, CHF, SVT SAFETY Patient/Family Target: [...] 06/04/2018 4:58 PM PST Physical Therapy Evaluation [id number] LILIAN HURST [facility] Day: 4 [...] (supraventricular tachycardia) ([facility]) Past Surgical History: Procedure Laterality Date ANKLE [...] better, get home when he can Communication/Barriers: lithuanian/none Pain: indicates 12/28 Vital Signs: see doc [...] x 3' bed to chair Outcome Measure: [facility] BASIC MOBILITY Difficulty turning over in [...] to do/total assistance - Total/Dependen t Assist [facility] Basic Mobility Total Score 13 Interpretation of [facility] Short Form - Basic Mobility: CMS [...] lan of Care - Hansa Guerrero i, BLOCK CUTTER - 06/04/2018 4:36 PM PSTProblem: LUIS FERNANDO Goals & Interventions Goal: Effective Family Coping Outcome: Goal met Date Met: 06/04/18 Referral Received From: Unit HOSPITALITY INTERN called - patient's daughter requesting to speak with LUIS FERNANDO Intervention: Called and spoke with . She says that she needs to return to [place] to get back to work and take care of both her and patient's home ( lives next door to Carlos). She is asking for information on getting Power of Customer Service Coordinator paperwork so she can take care o f patient's finances and pay his bills. LUIS FERNANDO provided following information: -Patient will need to be deemed cognitively clear and able to consent for himself in order to sign POA forms - can locate POA forms online (many options available on internet, due to fact that P OA is legal document- [facility] staff are not allowed to provide POA [...] accounts and pay bills on his beh halfway. This is often faster and easier than process to get POA in place. Sahron also requesting letter for her employer verifying Carlos's admission and her need to miss work to be at bedside. LUIS FERNANDO drafted letter and emailed it and notary list to email addresses provided: [email or web address] and [email or web address] Recommendation/Plan/Referrals: will work on POA. Provided her with contact info for mobile notary. LUIS FERNANDO provided letter for 's employer. No other social work needs identified at this time. Social work referral completed. Closing case. See medical and ancillary service notes for other needs and care plans. Please call or page if additional social work needs are identified. Hansa Bhatt LCSW Events Associate- 13K Oncology/7A Medical ICU/ 9K Orthopedics Phone: [phone] Pager:[phone] andoff - Maricruz Hicks RN - 06/04/2018 8:38 AM PSTNursing Handoff Patient Daily Goal: Pain control, sleep (06/02/182017) Patient Specific Preferences: cluster care (06/01/182041) [facility] IP NURSE HANDOFF: [facility] hospital course events: 05/31: tx from [facility]. Fell 05/30- left hip and pelvic fx 06/01: skeletal traction 06/02: Elevated HR EKG showed SR with PACs. Takes dilt at baseline (none since admission), s tarted on 6.25 mg metop noc 06/02. 06/03 early am 4 beats of v-tach Hx: COPD, HTN, AK 2018, stents, CHF, SVT SAFETY Patient/Family Target: [...] pain medication information: none Functional Epidural: N/A CHIEF SCIENCE OFFICER: N/A Respiratory: RR: 16 , O2 Sat: 95 % , O2 Delivery: Nasal cannula Breath Sounds: Ex MEI: LLL: RUL: RLL: JYOTI No Comment: no hx. Hx copd. Goal sats 88-94. Cardiac: BP: 128/72 HR: 73. Hx svt, vt, afib and nsr with pvc's and pac's GI: Nausea/Vomiting Status: No Signs/Symptoms: Interventions: Assessment: Comments: denies nausea : Last void: 1500 Contact Name: Nathan [phone] Contact Number: Nathan [phone] Family contacted: Yes Comment:will update prior to tranfser Belongings:returning PIV x 2. Surgical incisions CDI. Confused as in preop. Oriented x self only and follows commands. Restless and tries to get oob. rief Op Note - Nguyễn Shepard MD - 06/03/2018 2:12 PM PSTFormatting of this note might be different from the o riginal. [facility] Department of Orthopaedics & Rehabilitation BRIEF OPERATIVE NOTE Patient: /Age: MRN: CSN: Date: Admission Date: Hospital Day: Lilian Hurst 1935 83 y.o. [id number] 06/03/2018 05/31/2018 3 Attending Surgeon: Nguyễn Shepard MD Mine Administrator Supervisor(s): 1. Mitesh Da Silva MD Preoperative Diagnosis(es): [...] to make a follow up appointment in [facility] 4 weeks with MD Drea 8. Anticipated Discharge: 1-3 days Nguyễn Shepard MD Orthopaedic Trauma andoff - Lakshmi Ortiz RN - 06/02/2018 11:07 PM PSTNursing Handoff Patient Daily Goal: Pain control, sleep (06/02/182017) Patient Specific Preferences: cluster care (06/01/182041) [facility] IP NURSE HANDOFF: [facility] hospital course events: 05/31: tx from [place]. Fell 05/30- left hip and pelvic fx 06/01: skeletal traction 06/02: Elevated HR EKG showed SR with PACs. Takes dilt at baseline (none since admission), s tarted on 6.25 mg metop noc 06/02. 06/03 early am 4 beats of v-tach Hx: COPD, HTN, AK 2018, stents, CHF, SVT? SAFETY Patient/Family Target: [...] Patient Specific Preferences: cluster care (06/01/182041) [facility] IP NURSE HANDOFF: [facility] hospital course events: 05/31: tx from [place]. Fell 05/30- left hip and pelvic fx 06/01: skeletal traction Hx: COPD, HTN, AK 2018, stents, CHF COMFORT/ANXIETY/BEHAVIOR Patient/Family Target: Manage [...] then dropping to 70-80s with irregular beats. [facility] consult notified and patient placed on tele; [...] for tachycardia & irregular rate -NPO at [facility]; pre-op check list tonight EDUCATION NEEDS: D/C PLAN: OR Sunday morning Barriers to discharge: OR Sunday andoff - Karen Corral RN - 06/01/2018 11:31 PM PSTNursing Handoff Patient Daily Goal: sleep, bowel movement (06/01/182041) Patient Specific Preferences: cluster care (06/01/182041) [facility] IP NURSE HANDOFF: [facility] hospital course events: 05/31: tx from [place]. Fell 05/30- left hip and pelvic fx 06/01: placed in skeletal traction 15 lbs Hx: COPD, HTN, AK 2018, stents, CHF COMFORT/ANXIETY/BEHAVIOR Patient/Family Target: Manage [...] Patient Daily Goal: RN advocacy: safety (06/01/18 1716) Patient Specific Preferences: cluster care (05/31/18 1092) [facility] IP NURSE HANDOFF: [facility] hospital course events: 05/31: tx from [place]. Fell 05/30- left hip and pelvic fx 06/01: skeletal traction Hx: COPD, HTN, AK 2018, stents, CHF COMFORT/ANXIETY/BEHAVIOR Patient/Family Target: Manage [...] post OR. James Tucker PT, DPT Pager: [phone] lan of [facility] - Bob Hernandez RCP - 06/01/2018 1:03 [...] Patient Specific Preferences: cluster care (05/31/182046) [facility] IP NURSE HANDOFF: [facility] hospital course events: 05/31: tx from [place]. Fell 05/30- left hip and pelvic fx Hx: COPD, HTN, AK 2018, stents, CHF COMFORT/ANXIETY/BEHAVIOR Patient/Family Target: Manage [...] - 05/31/2018 6:55 PM PSTNursing Handoff [facility] IP NURSE HANDOFF: [facility] hospital course events: 05/31: tx from [place]. Fell 05/30- left hip and pelvic fx Hx: COPD, HTN, AK 2018, stents, CHF COMFORT/ANXIETY/BEHAVIOR Patient/Family Target: Manage [...] [facility] hospital course events: 05/31 tx from [facility] . Fell 05/30- left hip and pelvic fx Hx: COPD, HTN, AK 2018, stents, CHF Recommendations Forward: Takes pills whole with water Was receiving 1mg IV dilaudid per report from [facility] MOBILITY: bedrest MOBILITY PLAN:- LAST TIME MOBILIZED:- PAIN: 5mg oxycodone ORDER FOLLOW-UP: - EDUCATION NEEDS: - D/C PLAN: surgery sunday ransfer Note - Gabriela Espinoza, D.O. - 05/30/2018 7:25 PM PST INPATIENT MEDICINE TRANSFER CENTER & INTRA-HOSPITAL ACCEPT NOTE Medicine Hospitalist Attending Author: Mehran Espinoza DO PCP: SHAHEEN Love [address] / [place] [address] FAX: [phone] I was called by transfer line to discuss possible transfer of Lilian Hurst to [facility] Medicine Service. The history is obtained from referring provider and I have not corrob orated history with patient or record, as patient still under direct care of referring [facility]. Referring Physician: Dr. Cabello Referring Site (or [facility] Service): [facility] Specialists involved: , orthopedics Reason for Transfer/Admission: fractured pelvis Floor or ICU Request: Floor HPI/PMH/Exam: Lilian Hurst is an 83 year old man with COPD, hypertension, prior AK, mild chf, who pr esented with a left acetabular fracture after a ground-level fall. Had a ground-level fall this morning on ice. 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 Now has complex acetabular and pelvic fracture. Has multiple medical comorbidities including COPD, hypertension, prior AK, "mild chf", none of which appear to b e active currently. Highly functional at baseline. Current Vitals: 97.9, heart rate 65, 153/85, 92% on RA Pertinent Studies: Labs: Hgb 14.5, platelets 159; chemistries and EKG within normal limits Imaging: chest x-ray within normal limits Procedures: not applicable Code Status: FULL code Disposition: (accepted or declined) After discussion with the emergency department and phys maqsc-cj-hoe-day, ultimately admitted to orthopedics as primary with [facility] consulting. Please contact [facility] when the patient arrives and we will provide medical and lesly-operative consultation. Mehran Espinoza D.O. Manager Pmopackage sealer [facility] Clinical Hospitalist Service Pager [phone] ransfer Note - Daniela Clarke MD - 05/30/2018 6:00 PM [id number] M copd htn prior AK CHF Left acetabular fracture after GLF Ortho [...] if needed Daniela Daigle MD DIONNE [facility] Department of Emergency Medicine documented in this [...] [facility] | [address] | [place] [address] | | | SERVICES, CORE | PARK [...] | | | LABORATORY | | | PERUVIAN | | | SERVICES, | | | [...] | + + + + + | [facility] | [address] | [place] [address] | | | SARA, YOKASTA | RICHARD [...] + + + + + | [facility] | [address] | [place] [address] | | | SERVICES, CORE | PARK [...] | | | LABORATORY | | | PERUVIAN | | | SERVICES, | | | [...] | + + + + + | [facility] | [address] | [place] [address] | | | SERVICES, CORE | RICHARD [...] [facility] | [address] | [place] [address] | | | SERVICES, CORE | PARK [...] | + + + + + | [facility] | [address] [facility] | [place] [address] | | | SERVICES, CORE | [address] | | | + + + + + X-RAY PORTABLE 2 VIEW ABDOMEN (KUB AND UPRIGHT) (06/04/2018 2:32 PM PST) + + | Specimen | + + | | + + + + + | Narrative | Performed At | + + + | EXAM: FL 2 VIEW ABDOMEN (KUB AND UPRIGHT) History: [...] | MD Chris 06/04/2018 4:23 PM Preliminary: Francsico Sheldon MD | | | 06/04/2018 4:00 PM Dictation initiated: Francisco Sheldon MD 06/04/2018 | | | 2:41 PM | | + + + + + | Procedure Note | + + | Service Account, Radiant Res In Interface - 06/04/2018 4:24 PM PST EXAM: FL 2 VIEW | | ABDOMEN (KUB AND [...] LABORATORY | [address] | [place] [address] | | | SERVICES, CORE | PARK [...] + + + + + | [facility] | [address] | [place] [address] | | | SERVICES, CORE | PARK [...] LABORATORY | [address] | [place] [address] | | | SERVICES, CORE | PARK [...] | | | LABORATORY | | | PERUVIAN | | | SERVICES, | | | [...] MDRD equation recommended by the | [facility] | | National Kidney Disease Education Program. [...] + + + + + | [facility] | [address] | [place] [address] | | | SERVICES, YOKASTA | RICHARD [...] | | Attending Surgeon: Nguyễn Shepard MD Mine Administrator Supervisor(s): Devendra Allen | | MD Avinash. [...] He | | was transferred to the [facility] flat top. A sacral bump consisting [...] was referred to my care at [facility] by another | | orthopaedic surgeon. The patient is from the [facility] and traveled many miles to | | get to [facility], bypassing several other hospitals due to the [...] 06/03/2018 14:26:09DT: | | 06/03/2018 16:58:33Job #: [id number] | + + MAGNESIUM, PLASMA (06/03/2018 4:37 [...] LABORATORY | [address] | [place] [address] | | | SERVICES, CORE | PARK [...] DEPT OF | [address] | [place], [place] | | | CARDIOLOGY | [address] | [address] | | + + + + + [...] [facility] | [address] | [place], [place] | | | [facility] | [address] | [address] | | | TESTS | | | | + + + + + X-RAY PELVIS 4+ VIEWS (06/03/2018 2:05 [facility]) + + | Specimen | + + [...] [facility] | [address] | [place], [place] | | | DILAN [facility] CARE | [address] | [address] | | | TESTS | | | [...] | [facility] | [address] [facility] | [place] [address] | | | SERVICES, CORE | PARK [...] | | | LABORATORY | | | PERUVIAN | | | SERVICES, | | | [...] the MDRD equation recommended by the | [facility] | | National Kidney Disease Education Program. [...] | + + + + + | [facility] | [address] | [place] [address] | | | SARA, YOKASTA | RICHARD [...] Note | + + | Service Account, Float: [place] Res In Interface - 06/02/2018 11:23 AM [...] DEPT OF | [address] | [place], [place] | | | CARDIOLOGY | [address] | [address] | | + + + + + [...] | + + + + + | [facility] | [address] | [place] [address] | | | SARA, YOKASTA | RICHARD [...] | + + + + + | [facility] | [address] [facility] | [place] [address] | | | SERVICES, CORE | RICHARD [...] | | | LABORATORY | | | PERUVIAN | | | SERVICES, | | | [...] | [address] | [place] [address] | | | SERVICES, CORE | PARK [...] | + + + + + | [facility] | [address] | [place] [address] | | | SERVICES, | [address] [...] | + + + + + | [facility] | [address] | [place] [address] | | | SARA | [address] [...] LABORATORY | [address] | [place] [address] | | | SERVICES, CORE | RICHARD [...] Note | + + | Service Account, Float: [place] Res In Interface - 06/01/2018 6:04 PM [...] | + + + + + | [facility] | [address] [facility] | [place] [address] | | | SERVICES, CORE | PARK [...] | | | LABORATORY | | | PERUVIAN | | | SERVICES, | | | [...] the MDRD equation recommended by the | [facility] | | National Kidney Disease Education Program. [...] | + + + + + | [facility] | [address] [facility] | [place] [address] | | | SERVICES, CORE | RICHARD [...] LABORATORY | [address] | [place] [address] | | | SERVICES, CORE | PARK [...] | | | LABORATORY | | | PERUVIAN | | | SERVICES, | | | [...] | + + + + + | [facility] | [address] | [place] [address] | | | SERVICES, YOKASTA | RICHARD [...] | | | | | 2357, Until [facility] 06/06/18 at 2229, | | | | [...]
--- OUTSIDE RECORDS SUMMARY | ~2020-02-16 | XMS | Encounter Summary ---
Demographics + + + | Address | [address] | | | [place] [address] | + + + | Home Phone | | + + + | Preferred Language | Unknown | + + + | Marital Status | | + + + | Jew Affiliation | NON | + + + | Race | White | + + + | Ethnic Group | Not or | + + + Author + + + | Author | [facility] | + + + | Organization | [facility] | + + + | Address | Unknown | + + + | Phone | Unavailable | + + + Support + + +---------+ + | Name | Relationship | Address | Phone | + + +---------+ + | None Per Pt | ECON | Unknown | Unavailable | + + +---------+ + Care Team Providers + +------+ + | Care Trial Court Judge Name | Role | Phone | + [...] | | 2019 | | Faculty at [place] | MD Meron [address] | | | | | for [facility] and | [address] | | | | | Healing [address] | [facility] [place] | | | | | [facility] | [address] | | | | | Health and Healing, | [phone] | | | | | [facility] | | | | | | Floor [place], [place] | | | | | | [address] | | | | | | [phone] | | | +--------+ + + + [...] e Dr. Stephane Stern Orthopedic surgeon at [facility] orthopedic Surgery and Fracture cli vilma. Clinic phone is [phone]. elephone Encounter - Agustin Cook MA - 06/26/2018 9:09 AM PSTDrTroy Shepard Re commends patient to see Javad Gallardo MD ph: Or Sarkis Liang MD ph: [phone] LVM informing patient Telephone Encounter - Hannah Smith - 06/25/2018 4:36 PM PSTPatient would like to see k post op care in [place]. It is much closer per the patient. elephone Encounter - Agustin Cook MA - 2018 4:21 PM PSTLVM informing patient of Dr. Shepard Message. Advised patient to call us ba evangelist. Per Working; "think if William had a more straight forward operation that it would be acceptable, but he is essentially my first patient at [facility] with an all percutaneous operation of his acetabulu m. He needs to see a trauma surgeon. All the trauma surgeons in [place] are in the [facility] or [place] or [place]. If his insurance would cover him going across state lines I could fa cilitate him going to [facility], or there are a few guys in [place] or [place]. My strong preference is for him to stay with us" 19 4:22 PM PSTTelephone Encounter - Hannah Smith - 06/25/2018 8:57 AM PSTPatient: Josiah anayaoswaldo James Burns Last Visit: No past encounter found in [facility]. Next Visit: Next Appointment in [facility] is on 07/02/18 at 1:20 pm with Juan Shepard MD. Recent Surgery: Yes- 06/03/18 Procedure: Closed reduction and percutaneous fixation of the left acetabulum. Provider: Working Reason for call: Patient is no longer in the rehab facility and states that he is going to have a very hard time traveling for his follow up appointments with Dr. Shepard. Patient jeff ves in [place] and would like to know if there is anyone he can follow up with at [facility] for post op care. Please advise. Patient [...]
--- OUTSIDE RECORDS SUMMARY | ~2020-02-16 | XMS | Encounter Summary ---
Demographics + + + | Address | [address] | | | [place] [address] | + + + | Home Phone | | + + + | Preferred Language | Unknown | + + + | Marital Status | | + + + | Bahai Affiliation | NON | + + + [...] Team Providers + +------+ + | Care Student Worker Name | Role | Phone | [...] | | | | | | [facility] | | | | | | Hospital Admitting | | | | | | Desk Located on the | | | | | | 9th floor | | | | | | [place], [place] | | | | | | [address] | | | +--------+ + + + [...]
--- OUTSIDE RECORDS SUMMARY | ~2020-02-16 | XMS | Encounter Summary ---
Demographics + + + | Address | [address] | | | [place] [address] | + + + | Home Phone | | + + + | Preferred Language | Unknown | + + + | Marital Status | | + + + | Adventism Affiliation | NON | + + + | Race | White | + + + | Ethnic Group | Not or | + + + Author + + + | Author | [facility] | + + + | Organization | [facility] | + + + | Address | Unknown | + + + | Phone | Unavailable | + + + Support + + +---------+ + | Name | Relationship | Address | Phone | + + +---------+ + | None Per Pt | ECON | Unknown | Unavailable | + + +---------+ + Care Team Providers + +------+ + | Care Plant Guide Name | Role | Phone | + [...] | | [address] | [place], [place] | | | | | [place], | [address] | | | | | 4th floor [place], | [phone] | | | | | [place] [address] | | | | | | [phone] | | | +--------+ + + + [...]
--- OUTSIDE RECORDS SUMMARY | ~2020-02-16 | XMS | Encounter Summary ---
Demographics + + + | Address | [address] | | | [place] [address] | + + + | Home Phone | | + + + | Preferred Language | Unknown | + + + | Marital Status | | + + + | Buddhist Affiliation | NON | + + + | Race | White | + + + | Ethnic Group | Not or | + + + Author + + + | Author | [facility] | + + + | Organization | [facility] | + + + | Address | Unknown | + + + | Phone | Unavailable | + + + Support + + +---------+ + | Name | Relationship | Address | Phone | + + +---------+ + | None Per Pt | ECON | Unknown | Unavailable | + + +---------+ + Care Team Providers + +------+ + | Care Customer Service Voice Name | Role | Phone | + [...] Medication | | 2019 | | at [facility] | [address] | management | | | | [address] | [facility] | | | | | Loop Physician's | [place], [place] | | | | | [place], [address] [place] [address] | [address] | | | | | [place], [place] | [phone] | | | | | [address] | | | | | | [phone] | | | +--------+ + + + [...] 06/07/2018 8:02 PM PSTAfter hours call from [facility]. Nurse seeks clarification on albuterol neb ord er. I recommended sig of 1 treatment every 6 hours as needed for shortness of breath. PCP to confirm. documented in this encounter Plan of Treatment Not on filedocumented as of this encounter Visit Diagnoses Not on filedocumented in this encounter"
--- OUTSIDE RECORDS SUMMARY | ~2020-02-16 | XMS | Encounter Summary ---
Demographics + + + | Address | [address] | | | [place] [address] | + + + | Home Phone [...] Providers + +------+ + | Care Audio Engineer Name | Role | Phone | [...] | | | | | [address] | [place], | | | | | [place], | [place] [address] | | | | | [place] [address] | [phone] | | | | | [phone] | | | +--------+ + + + [...] the past, would like to avoid any MANAGER OF REVENUE effects in a patient with recent injury [...] solids, with emphasis on carbohydrates, fruits and "retail merchandising manager foods" wh ile ileus continues to resolve [...]
--- OUTSIDE RECORDS SUMMARY | ~2020-02-16 | XMS | Encounter Summary ---
Demographics + + + | Address | [address] | | | [place] [address] | + + + | Home Phone | | + + + | Preferred Language | Unknown | + + + | Marital Status | | + + + | Orthodox Affiliation | NON | + + + [...] Team Providers + +------+ + | Care Prevention Rn Name | Role | Phone | + [...] | | | | | [place], | [place], [place] | | | | | [place] [address] | [address] | | | | | [phone] | [phone] | | | | | | | [...] Recinos MD - 06/11/2018 10:00 AM PST [facility] Facility Intake Exam - Anna Thomas "Carlos" James Burns is a 83 y.o. male with a PMH significant for prior L THR, SVT, HT N, COPD (non-O2 dependent), prior UGIB. He is admitted to [facility] for skilled therapy following a hospitalization at [facility] from 05/31 to 06/06 for Left Acetabular Fracture in the setting of a prior THR. Hospital course was significant for: Carlos was transferred to [facility] from [facility] on 05/31 for management of a complex [...] independent at baseline. He was brought to [facility] given his medical comorbidities and [place] rn [...] to visit (already scheduled for 07/02/18 at [facility] Ortho ). His course was c/b bloating [...] blood in stool, unlikely that EGD would change house attendant. He was also seen by the Geriatrics [...] 06/27/2017 Aspiration pneumonitis (HCC) 06/28/2017 Atrial fibrillation ([facility]) 08/13/2017 Choledocholithiasis 06/26/2017 Closed fracture of anterior column of left acetabulum with routine healing 06/11/2018 COPD (chronic obstructive pulmonary disease) ([facility]) Diverticulosis of colon 01/01/2007 Overview: Note: Unchanged GERD (gastroesophageal reflux disease) 08/13/2017 GI bleed 2013 esophageal ulcer s/p clipping 2013 HTN (hypertension) Klebsiella sepsis ([facility]) 06/27/2017 Normocytic anemia Hgb around 11 in [...] (has used x 2 since arriving at [facility]) - Continue Mucinex BID per home regimen [...] PGY1 GENERAL INTERNAL MEDICINE AT OFFSITE Pager: [phone] Associated attestation - Crystal Evans MD - [...] the following additions/clarifications/exceptions: none Crystal Evans MD [facility] Division of Internal Medicine and Geriatrics [...]
--- OUTSIDE RECORDS SUMMARY | ~2020-02-16 | XMS | Encounter Summary ---
Demographics + + + | Address | [address] | | | [place] [address] | + + + | Home Phone | | + + + | Preferred Language | Unknown | + + + | Marital Status | | + + + | [employer] Affiliation | NON | + + + [...] Team Providers + +------+ + | Care Control Clerk Food And Beverage Name | Role | Phone | + +------+ + | Daryl March MD | PCP | | + +------+ + Reason for Visit +--------+--------+ + | Reason | Onset | Comments | | | Date | | +--------+--------+ + | Other | 07/04/ | | | | 2018 | | +--------+--------+ + Encounter Details +--------+ + + + + | Date | Type | Department | Care Team | Description | +--------+ + + + + | 07/04/ | Telephone | Cardiology | Franko Garcia | Other | | 2018 | | Arrhythmia at [facility] | MD [place] [address] | | | | | [address] | [address] | | | | | [facility] | [place], [place] | | | | | and Healing, | [address] | | | | | [facility] | [phone] | | | | | Floor [place], [place] | | | | | | [address] | | | | | | [phone] | | | +--------+ + + + [...] this encounter Miscellaneous Notes Telephone Encounter - Franko Garcia MD - 07/05/2017 8:13 AM ADOLFO spoke with a prov ider at [facility] this morning. The discharge summary said to not restart his diltiazem, presumably because of episodes of bradycardia while in the hospital. However, provider and patient both report that it controls his "SVT" quite well. He has an adequate heart rate today, and since leaving the hospital. They will restart the diltiazem at the previous dose. Franko Garcia M.D. Director, Electrophysiology Caretaker [employer]super[employer] printing [employer] stamping [facility] [place] [facility] [place] [phone] elephone Encoun Pam Berg RN - 07/04/2017 4:[address] Garcia who saw this pt o n consult service:06/26/17- with Dr Martino: History of Present Illness: William Burns is an 82 year-old malewith a past medical history of HTN, COPD, paroxsy mal SVT, prior GIB due to esophageal ulcer who is presently admitted to the MICU with acute cholangitis, septic shock and acute respiratory failure. The patient presented to an outside emergency room 06/25/17 with shortness of breath and was given inhaled albuterol and ipratrop ium. By report he had increasing HR and RR and was then intubated and transported to [facility]. D uring transfer he had hypotension that required propofol to be stopped and an infusion of no repinephrine was started. Upon arrival here early this morning the patient was in a narrow c omplex tachycardia with a rate around 150 bpm. The telemetry data was reviewed. The rhythm i s very regular. There is intermittent slowing of the tachycardia with no discernable atrial activity between QRS complexes. The patient was then started on an esomolol infusion at 50 m cg/kg/min for about an hour. He then converted to normal sinus rhythm and was intermittently hypotensive with the norepinephrine infusion being decreased throughout the day. At around 3pm the patient then went into what appears to be a junctional rhythm of around 45 bpm that was associated with hypotension. He then returned to sinus rhythm for a few hours and went b ack into junctional rhythm and has since remained in junctional rhythm with a heart rate marquis und 45 bpm. There are intermittent brief pauses while in sinus rhythm and while in junctiona l rhythm, the longest being about 3.5 seconds. The patient had an ERCP today and his hypoten audrey has been improving since; he is no longer on any vasoactive infusions. The patient mariel ins intubated and sedated and is unable to provide history. elephone Encounter - Yenny Pittman - 07/04/2017 3:09 PM PSTName of outside Provider calling:Dr. Herlinda Steinberg n from [employer] [place] Callback number: [phone] office or [phone] cell [facility] provider: Dr. Garcia Brief description: Dr. Bolton requesting a call back regarding pt's discharge paperwork. Page the [facility] provider and include: Outside provider name/contact and MRN of related patient. Route encounter to [facility] Provider + APPROPRIATE PROVIDER'S CAR NURSE POOL ~~~~~ documented in this encounter Plan of Treatment Not on filedocumented as of this encounter Visit Diagnoses Not on filedocumented in this encounter
--- OUTSIDE RECORDS SUMMARY | ~2020-02-16 | XMS | Encounter Summary ---
Demographics + + + | Address | [address] | | | [place] [address] | + + + | Home Phone [...] Team Providers + +------+ + | Care Bundle Cutter Name | Role | Phone | + [...] | deconditioni | Virgil Chance MD | [facility] | | | | | ng | [phone] | for Health | | | | | Procedures | [address] | and Healing, | | | | | PHYSICAL | [address] | Building [address], | | | | | THERAPY | [facility] [place] | 1st Floor | | | | | REFERRAL | [address] | [facility] [place] | | | | | | Phone: | [phone] | | | | | | [phone] | Phone: | | | | | | Fax: | [phone] | | | | | | [phone] | Fax: | | | | | | | [phone] | +--------+--------+ + + + + Reason [...] + + | 06/26/ | Hospital | [address] | Alberto Miranda MD | | | 2018 - | Encounter | [address] | [address] | | | | | [address] [place] [address] | Carolina Guerra [place], | | | 06/30/ | | [place], [place] | [place] [address] | | | 2017 | | [address] | [phone] | | | | | [phone] | | | | | | | Vic Petty | | | | | | MD Herson [address] | | | | | | [address] | | | | | | [place], [place] | | | | | | [address] | | | | | | [phone] | | | | | | | [...] might be differen t from the original. Count Includes [facility] Discharge Summary Discharging [...] prior to transfer) #Central venous catheter insertion, [facility] - 06/26/17 #Arterial line, R radial - 06/26/17 Reason for Admission: #Septic Shock Hospital Course by Problem (with follow-up plan/instructions): #Septic Shock #Ascending cholangitis #Klebsiella bacteremia Presented as transfer from OSH in setting of subacute, progressive post-prandial abdominal pain. At OSH, was found to be tachypneic (did not tolerate BiPAP) and intubated prior to tra nsfer to [facility]. Workup was notable for RUQ U/S [...] Your Medications These medications were sent to -[facility] [address] [place] [address] [place] [address] Hours: 9AM-7PM MON - FRI / 9AM-6PM [...] Thank you for entrusting your care to [facility] Internal Medicine. If you have any problems or concerns before you are able to follow up with your Primary Care Provider, please call and ask the turbogenerator operator to page the attending physician, Vic Petty MD, wh o was caring for you at discharge. If that physician is not available, ask the turbogenerator operator to page the physician relocation associate for the Medical Teaching Service. Call us right away if any of the following occur: Recurrent abdominal pain Shaking chills or night sweats Other Discharge Orders and Instructions You will be called by the [facility] GI service within the next week to schedule a repeat appoint ment for ERCP and possible stent removal. Home Health Referral after Hospitalization Comments: I certify that this patient is under my care and that I, or Nurse Practitioner or Physician Work Measurement Engineer working with me, had a face to [...] MD . Specialty: Internal Medicine Contact information [facility] [address] [place] [address] [address] [facility] [id number] Discharge Physical Exam: Last 24 hour min/max [...] (HCC) 12) Acute respiratory failure with hypoxia ([facility]) Please refer to the resident discharge summary for additional details. Vic Petty MD, PhD Clinical Hospitalist and Medicine Teaching Services Count Includes [facility] Pager [phone] I have spent 35 minutes with the [...] be different from th e original. PHYSICIAN APPOINTMENT SCHEDULER STUDENT PROGRESS NOTE FOR EDUCATIONAL PURPOSES ONLY [...] Q2H PRN ipratropium-albuterol 3 mL Q6H PRN qjtzdbvy-bgcosrg-nwtiqzes-zinc QID PRN oxyCODONE (immediate release) 2.5-5 mg [...] PIV Code status: FULL Collin Mohr PA-S Count Includes [facility] Physician Work Measurement Engineer Program 06/29/17 Kang Zhang MD - 06/29/2017 [...] Choledocholithiasis 3) Acute cholangitis 4) Klebsiella sepsis ([facility]) 5) Aspiration pneumonitis (HCC) 6) S/P ERCP 7) COPD (chronic obstructive pulmonary disease) (HCC) 8) Essential hypertension 82 year-old man with HTN, COPD not on supplemental oxygen, who presented to OSH with epigas tric pain and abnormal LFTs, admitted for septic shock due to acute cholangitis and acute hy poxic respiratory failure due to aspiration requiring intubation, transferred to [facility] MICU. Here found to have klebsiella [...] PhD Clinical Hospitalist and Medicine Teaching Services Count Includes [facility] Pager [phone] I have spent 26 minutes with the [...] interval not displayed. Micro: BLOOD CULTURE WORKUP [[id number]] (Abnormal) [facility] Collected: 06/26/17 0939 Lab [...] (HCC) 11) Acute respiratory failure with hypoxia ([facility]) Assessment: Lilian Hurst is a [...] Primary Surrogate Decision Maker Sharon Rodriguez Daughter [phone] Dimas Xavier MD Internal Medicine, PGY-3 #[id number] Louis Hernandez MD - 06/28/2017 2:26 PM [...] management as outpatient (pt prefers facility near [place]) --> if develops post ERCP complications or [...] Mohr - 06/28/2017 7:47 AM PST PHYSICIAN APPOINTMENT SCHEDULER STUDENT PROGRESS NOTE FOR EDUCATIONAL PURPOSES ONLY [...] Q2H PRN ipratropium-albuterol 3 mL Q6H PRN lxaaxmgu-bwsdrhc-vwmhtpyq-zinc QID PRN oxyCODONE (immediate release) 2.5-5 mg [...] on klebsiella cultures for sensitivity. Spoke with Dip Filler at [facility] @1330, N o sensitivity results yet from [...] IV/Airways/Catheters: PIV Code status: FULL DOREEN Oconnell Count Includes [facility] Physician Work Measurement Engineer Program 06/28/17 Alisha Rai M D - [...] 86 87 78 HCO3 22 24 23 [id number] 24 25 24 S7PCJCSP 96.4 97.0 96.8 FIO2 0.80 0.25 0.21 [...] in the patient's condition). ALISHA LAGUNAS MD [facility] [address] [place] [address] Camilo Amaya MD - 11/2017 6:00 AM PST [facility] MEDICAL ICU - PROGRESS NOTE Hospital [...] 6.5 mL/Kg (459.6 mL) RR: 22 bpm Hamilton BW: 70.7 kg FiO2 21 fraction of [...] 87 78 HCO3 -- 22 24 23 IMC5YHB1 -- 108* 348 371 VBGPH 7.27* -- [...] 3.375 g i ntravenous Q8H Stopped (06/27/17 372) Current Facility-Administered Medications Medication Dose Route Frequency [...] Primary Surrogate Decision Maker Sharon Rodriguez Daughter [phone] This patient was staffed with Dr. Lagunas, [...] duct clearance Rene Mendoza MD Gastroenterology Pager [phone] - Virginia Cerna MD - 06/26/2017 4:38 PM PSTFormatting of this note might be different from the origi nal. PRE PROCEDURE NOTE: MR# [id number] Subjective: Lilian Hurst is a 82 y.o. [...] 4 hours. Concern for choledocholithiasis. Transferred t [facility] this morning. Has history of COPD and [...] results for input(s): PH, PCO2, PO2, HCO3, HSNEL4VBA, K5DKJMIM, Q9KILUSNV, FIO2 in the l ast 72 hours. [...] in the patient's condition). ALISHA LAGUNAS MD [facility] [address] [place] [address] documented in this enco unter H&P Notes [...] intubated and placed on pressors, transferred to [facility] MICU directly . In MICU, GI was consulted who performed ERCP with sphincterotomy with several CBD stones an d sludge removal yesterday + stent placement. He was also placed on zosyn for emperic antib iotic coverage. He was found to have gram-positive and klebsiella bacteremia.He was readily extubated and remains on 1-2L of NC. On zwsy-bt-fdkn evaluation on general medicine floor, he reports [...] None /hpf Imaging Interpretation: No US in [facility] system Summary Patient is an 82 year [...] management as outpatient (pt prefers facility near [place]) --If febrile, order new bcx --If hypotensive/concern [...] due to aspiration requiring intubation, transferred to [facility] MICU. Here found to have klebsiella [...] PhD Clinical Hospitalist and Medicine Teaching Services Count Includes [facility] Pager [phone] I spent more than 70 minutes uqux-ge-kbzm with the patient of which greater than 50% was sp ent counseling the patient on acute cholangitis, abdominal pain, klebsiella bacteremia and i n coordination of care. Dianna Dodson MD - 06/26/2017 6:46 AM PSTFormatting of this note might be different from t sarath original. [facility] MEDICAL ICU - HISTORY & PHYSICAL Author: [...] was then intubated a nd transported to [facility]. On route here, had hypotension with SBP [...] Ventilation Vex: Mandatory 580 ml | Spontaneous Hamilton BW: 70.7 kg RR: 18 bpm Minute [...] -- 86 87 HCO3 -- 22 24 [id number] -- 108* 348 VBGPH 7.27* -- -- [...] housestaff assessment and plan. ALISHA LAGUNAS MD [facility] [address] [place] [address] documented in this encounter Procedure Notes Reid [...] pause veri fies correct patient, procedure, equipment, geophysical support specialist and site/side marked as required. [...] A pause verifies correct patient, procedure, equipment, geophysical support specialist and site/side marked as requir [...] Ultrasound Guidance. The modified Seldinger technique (a lkrgabnj-dipf-rok-gfdbkr-swil-zpuv-byyqcbv-doj-ekzvluit ) was used for vessel cannulation. The [...] currently going to Dr. Geovanni Hylton in [facility] [place] for primary care. Allergies: Allergies Allergen Reactions [...] acute cholangitis at the MICU. Pharmacy Preferences: [facility] [place], [place] Fax: Source of Medication Information: Patient and [...] Avitia Candidate Class of 2018 Pager # [phone] Associated attestation - Alisa Flores PharmD - 06/28/2017 1:48 PM PSTI have reviewed an d agree with the student nurse's documentation and have documented any additions or excep tions. Medication doses updated per pharmacy records and patient report. Refuses inhalers, b ut has been using Duonebs at home. Alisa Flores PharmD, [facility] Pager [phone] Cassy Patricio MD - 06/27/2017 8:14 AM [...] Cassy Patricio MD Internal Medicine PGY2 Pager #[phone] INTERVAL HISTORY: - ERCP with choledocholithiasis, stones [...] for ICU patient with acute cholangitis. The golf player assistant film was normal. The esophagus was successfully [...] note for further details. Paulette Mckenzie MD Radiology Specialistdecorating instructor Department of Gastroenterology [facility] DEPARTMENT: GI - [phone] Place of Service: [facility]: [phone] Suggested Modifiers: GC - Resident Involved Suggested Level of Care: 99903 (<15 minutes) Gunner Viera, Brian C - [...] and was then intubated and transported to [facility]. Du ring transfer he had hypotension that [...] beta blockers while bradycardic Brian Martino MD User Interface Designer [facility] Pager [phone] Associated attestation - Franko Garcia MD - [...] SVT appears. Franko Garcia M.D. Director, Electrophysiology Meat Apprenticeroll [place] [address] Cassy Patricio MD - 06/26/2017 9:21 AM [...] Cassy Patricio MD Internal Medicine PGY2 Pager #[phone] HISTORY OF PRESENT ILLNESS Lilian Hurst is [...] and ultimately intubation prior to transfer to [facility]. In the MICU: On arrival, pt afebrile, [...] note for further details. Paulette Mckenzie MD Radiology Specialistdecorating instructor Department of Gastroenterology [facility] DEPARTMENT: GI - [phone] Place of Service: [id number] - [facility] CSN: [id number] Suggested Modifiers: GC - Resident Involved Suggested Level of Care: 24551 (<15 minutes) documented in this encounter Miscellaneous [...] none specified at this time (06/28/17 1630) [facility] IP NURSE HANDOFF: [facility] hospital course events: Grant is a 82 y.o. man admitted to the [facility] for Klebsiella oxytoca septic shock [...] and is harder to control again - Aik reports this discomfort becomes worse after eating [...] none specified at this time (06/28/17 1630) [facility] IP NURSE HANDOFF: [facility] hospital course events: Grant is a 82 y.o. man admitted to the [facility] for septic shock likely secondary to acute cholangitis. 06/26: Tx to 7A MICU, ERCP done, pressor needs, SVT --> junctional rhythm, inocente, and pauses (cards consulted) 06/27: extubated to 2 liters nasal canula. NSR. SAFETY Patient/Family Target: Aki will maintain hemodynamic stability Progress to Target: Improving As evidenced by: - Per MD note, Aki was admitted to [facility] with septic shock and severe hypotension. VSS [...] from t sarath original. Physical Therapy Evaluation [id number] LILIAN HURST Date of : 1935 Start of care: 06/29/2017 Attending Practitioner: Vic Petty MD Primary/Referral Diagnosis/ICD-9: K80.50 Choledocholithiasis R06.00 Dyspnea, unspecified type Insurance: Payor: [facility] MEDICARE / Plan: [facility] MEDICARE HMO / Product Type: [...] / Family Goal: To go home Communication/Barriers: Amharic Subjective: Pt agreeable to working with PT [...] no loss of balance Outcome Measure: [facility] BASIC MOBILITY Difficulty turning over in bed [...] Little - Minimal/Contact Guard Assist/Superv ision [facility] Basic Mobility Total Score 22 Interpretation of [facility] Short Form - Basic Mobility: CMS Modifier [...] Consulted with: SARI re: recommendations PLAN: Pt education/ocular care aide training, HEP, transfer training, gait training, stairs/curb [...] a few days ago, currently eating breakfast (dutch muffin, scramble d egg, slice of ham). [...] - Continue on regular diet. Texture/consistency per COMPOSITION WORKER. - Continue to encourage po intake to [...] will follow up. Following, Sachi Greer M.S. Acupressurist Pgr#[phone] Kiah Beaulieu, MPH, RD, CNSC, LD Pager: [phone] For details, please see dietitian note from 06/28. andoff - Ira Decker RN - 06/29/2017 2:48 AM PSTNcas timmons Patient Daily Goal: "I need my pain well controlled tonight" (06/28/171999) Patient Specific Preferences: none specified at this time (06/28/17 1630) [facility] IP NURSE HANDOFF: [facility] hospital course events: Grant is a 82 y.o. man admitted to the [facility] for septic shock likely secondary to acute cholangitis. 2: Tx to 7A MICU, ERCP done, pressor needs, SVT --> junctional rhythm, inocente, and pauses (cards consulted) 06/27: extubated to 2 liters nasal canula. NSR. SAFETY Patient/Family Target: Aki will maintain hemodynamic stability Progress to Target: Improving As evidenced by: - Per MD note, Aki was admitted to [facility] with septic shock and severe hypotension. VSS [...] IV antibiotics -Possible consult at [facility] for right eyelid problem. andoff - Nyla Cano RN - 06/28/2017 3:13 PM PSTNursing Handoff Patient Daily Goal: To breath better and be able to sleep tonight (06/27/171955) [facility] IP NURSE HANDOFF: [facility] hospital course events: Grant is a 82 y.o. man admitted to the [facility] for septic shock likely secondary to acute cholangitis. 2: Tx to 7A MICU, ERCP done, pressor needs, SVT --> junctional rhythm, inocente, and pauses (cards consulted) 06/27: extubated to 2 liters nasal canula. NSR. SAFETY Patient/Family Target: Aki will maintain hemodynamic stability Progress to Target: Improving As evidenced by: - Per MD note, Aki was admitted to [facility] with septic shock and severe hypotension. Since [...] upper medial. Got an order for simethecone, [employer] tech told pt they saw a lot of gas when he had his US this am 06/28/17. - Bowel sounds active, Pt had a good BM this am he states, but didn't help his pain status. HYGIENE/INFECTION Patient/Family Target: kAi will exhibit no S/S of infection Progress [...] when appropriate to meet needs - Add Jol[place] Meche's probiotic yogurt when no longer NPO- one 8oz. Container split into 3x per day - Add Vitamin D3 @ 50,000 units/wk for 6-8 weeks. Recheck Vit D 25 hydroxy, if levels are > 25 ng, switch to Vitamin D3 @ 2000 units per day - Continue to monitor ion Ca, replete prn Following, Sachi Greer M.S. Acupressurist pgr#[phone] Kiah Beaulieu, MPH, RD, CNS, LD Pager: [phone] Comments: Admitting Dx: Lilian Hurst is a [...] pt report Estimated Nutrition Needs (84.1kg, COPD): 8728-7289 kcals (25-30 kcal/kg), 101-126 gm prote in (1.2-1.5 gm/kg) lan of Care - Nelli Le [facility]-COMPOSITION WORKER - 06/28/2017 10:17 AM PSTFormatting of this note might be different from bella landin. Speech Language Pathology - DYSPHAGIA Evaluation [id number] LILIAN HURST Date of : 1935 Referring/Attending [...] PLOF: Patient with history of COPD and DIRECTOR MATERNAL CHILD was concerning for aspiration pneumonitis vs PNA [...] liquids with univ ersal aspiration precautions. Problem: COMPOSITION WORKER Goals- Adult Goal: Dysphagia Goal Outcome: Goal [...] status, increased temp) DISCHARGE RECOMMENDATIONS: No further COMPOSITION WORKER needs Plan: No indication for further COMPOSITION WORKER therapy at this time. COMPOSITION WORKER team signing off. Please re order as appropriate. Thank you for this consult. Nelli Le MS CCC-COMPOSITION WORKER Speech Language Pathologist Pgr [phone] andoff - Brittney Bautista RN - 06/27/2017 10:33 PM PSTNursing Handoff Patient Daily Goal: To breath better and be able to sleep tonight (06/27/171955) [facility] IP NURSE HANDOFF: [facility] hospital course events: Grant is a 82 y.o. man admitted to the [facility] for septic shock likely secondary to acute cholangitis. 2: Tx to 7A MICU, ERCP done, pressor needs, SVT --> junctional rhythm, inocente, and pauses (cards consulted) 2: extubated to 2 liters nasal canula. NSR. SAFETY Patient/Family Target: Aki will maintain hemodynamic stability Progress to Target: Improving As evidenced by: - Per MD note, Aki was admitted to [facility] with septic shock and severe hypotension. Since [...] and increase PO intake (0 06/27/17 1720) [facility] IP NURSE HANDOFF: [facility] hospital course events: Grant is a 82 y.o. man admitted to the [facility] for septic shock likely secondary to acute cholangitis. 06/26: Tx to 7A MICU, ERCP done, pressor needs, SVT --> junctional rhythm, inocente, and pauses (cards consulted) 06/27: extubated to 2 liters nasal canula. NSR. SAFETY Patient/Family Target: Aki will maintain hemodynamic stability Progress to Target: Improving As evidenced by: - Per MD note, Aki was admitted to [facility] with septic shock and severe hypotension. Since [...] Goal: to use the bathroom (06/27/17 0900) [facility] IP NURSE HANDOFF: [facility] hospital course events: Grant is a 82 y.o. man admitted to the [facility] for septic shock likely secondary [...] Sherman Dodson MD - 06/27/2017 1:30 PM [facility] MEDICAL ICU - TRANSFER SUMMARY Hospital [...] 2017 lan of Care - Jamey Rosa [facility] - 06/27/2017 8:33 AM PSTProblem: RT Goals & Interventions Goal: Actively weaning from ventilator support Patient extubated to 3 lpm nasal cannula. Strong, productive cough. No evidence of stridor. andoff - Herlinda Mccord RN - 06/27/2017 5:03 AM PSTNursing Handoff [facility] IP NURSE HANDOFF: [facility]ley hospital course events: Grant is a 82 y.o. man admitted to the [facility] for septic shock likely secondary [...] 06/26/2017 PO2 78 06/26/2017 HCO3 23 06/26/2017 E2OUGYSW 96.8 06/26/2017 FIO2 0.21 06/26/2017 [id number] 371 06/26/2017 HTQ9ALS5 348 06/26/2017 EYG9GQD6 108 (L) 06/26/2017 P/F ratio: Improving/worsening Today Previous day ECMO or ARDS vents only Driving pressure: Plat Press: 12 cm H2O (06/27/17301) - TOTAL PEEP: 6 cm H2O (06/27/17301) = Driving Pressure (DP): 6 cm H2O (06/27/17301) Plat Press: 12 cm H2O Dynamic Lung Compliance: 25 ml/cm CRS Static: 75.00 (06/27/17301) CXR No results found for: CXR lan of [facility] - Teodoro Alvarenga RCP - 06/26/2017 9:53 [...] Based on this assessment Adult Bronchodilator Protocol. [facility] Lela Apodaca - 06/26/2017 8:22 AM PSTAMR 639/FF 82 yom, sepsis. Pt on vent, tolerating well. Sedaition is off due to hypotension. Pt on lev ophed, sent pt into SVT. Resolved with fluid. HR 160, 108 SPB, Et CO2 35, Sat 98%. ETA 10 min [facility] Olga Cohen - 06/26/2017 6:42 AM PSTPer [facility] dispatch. [id number] [place] [facility] at 0730. ETA [phone] [facility] - 06/26/2017 4:17 AM PSTgrp 18 pag ed [facility] - 06/26/2017 4:13 AM PST4:08 AM [...] by Abisai Whipple at 8 4:13 AM [facility] - Hailey Apodaca RN - 06/26/2017 3:45 AM [facility] Transfer Center pan dumper: Demographics: Lilian Hurst, 82 y.o., male Chief Complaint: Coleocystitis, common bile duct obstruction. Impending respiratory failure . Expectation of care: Management of above: Interventions performed: VS: At presentation to ED temp 102. RR 25 pressure 150 over 60s Sating in 80s on RA, HX CORRECTIONAL AGENCY DIRECTOR D, up to 90s on 2l. Currently HR and RR increasing. O2 increased to 6L currently. Satting in low 90s, will probably intubate soon as is having increasing distress Pertinent Labs: Labs sent Diagnostics: and ultrasound done Requested Service Line: MICU Connected to: [facility] at capacity: No DECISION: TCRN spoke with Md. Heath. Amenable to transfer to [facility]. Attempted to place at [facility]. No beds available 2/2 staffing. Returned call to [facility] TC TRANSPORTION: [facility] - Abisai Whipple - 06/26/2017 3:45 AM PST3:42 AM 06/26/2017 Dr. Heath [facility], PT: Aki Hurst : 1935 MICU, DR. [...] | + +--------+ + + + | OD-LF-DIJ-HB,POC RT | Urgent | 06/26/2017 | | [...] + + + | ECG | Short MO interval | | [facility] | | [...] OF | [address] | [place], [place] | | | CARDIOLOGY | [address] | [address] | | + + + + + [...] | + + + + + | [facility] | [address] | [place] [address] | | | SERVICES, CORE | [address] | | | + + + [...] [facility] | [address] | [place] [address] | | | SERVICES, CORE | [address] [...] | | | LABORATORY | | | SAMMARINESE | | | SERVICES, | | | [...] LABORATORY | [address] | [place] [address] | | | SERVICES, CORE | [address] [...] | [facility] | [address] | [place] [address] | | | SERVICES, CORE | [address] [...] [facility] | [address] | [place], [place] | | | [facility] [place] | [address] | [address] | | | TESTS | | | [...] | + + + + + | [facility] | [address] | [place] [address] | | | SERVICES, CORE | [address] [...] LABORATORY | [address] | [place] [address] | | | SERVICES, CORE | [address] [...] | | | LABORATORY | | | SAMMARINESE | | | SERVICES, | | | [...] + + | [facility] | [address] [facility] | [place] [address] | | | SARA, Y[place]ASTA | [address] [...] | + + + + + | [facility] | [address] | [place] [address] | | | SERVICESYOKASTA | [address] [...] + | [facility] | [address] | [place], [place] | | | YUE POINT OF CARE | [address] | [address] | | | TESTS | | | [...] Note | + + | Service Account, [employer] In Interface - 06/28/2017 10:17 AM [...] - MARQU[facility] | [address] | [place], [place] | | | DILAN TURNER OF CARE | [address] | [address] | | | TESTS | | | [...] TOBAR | [address] | [place], [place] | | | YUE POINT OF CARE | [address] | [address] | | | TESTS | | | [...] | | | LABORATORY | | | SAMMARINESE | | | SERVICES, | | | [...] + + + | [facility] | [address] | [place] [address] | | | SERVICES, CORE | CAR[place]INA [...] LABORATORY | [address] | [place] [address] | | | SERVICES, CORE | PARK [...] LABORATORY | [address] | [place] [address] | | | SERVICES, CORE | PARK [...] + + + + + | [facility] | [address] | [place] [address] | | | SERVICES, CORE | [place] [...] | + + + + + | [facility] | [address] | [place] [address] | | | YOKASTA RUIZ | [place] [...] (H) | 70 - 99 mg/dL | [facility] - | | | GLUCOSE, | [...] + + | [facility] | [address] | [place], [place] | | | YUE POINT OF [facility] | [address] | [address] | | | TESTS | | | [...] + + | [facility] | [address] | [place] [address] | | | SARA, YOKASTA | [place] [...] [facility] | | | GRAVITY | Specific [place] | | LABORATORY | | | | [...] | [facility] | [address] | [place] [address] | | | SERVICES, CORE | [address] | | | + + + + + ERCP (06/27/2017 6:38 AM PST) + + | Specimen | + + | | + + + + + | Narrative | Performed At | + + + | MRN: | [facility] | | [id number] Date: 06/27/2017Patient Name: Lilian Nair #: | ENDOSCOPY | | [id number] of : 1935SN: [id number] Type: | | | InpatientRoom: SORProcedure: ERCPIndications: | | | For therapy of ascending cholangitis; 82 yo M with | | | sepsis, elevated LFTs and US showing mary dil and 1.3 cm | | | CBDProviders: BRINTHA | | | Thompson MENDOZA MD (Doctor), JORDY SOLANO, | | | RN (Nurse), ESTELA DAMIAN RN (Cook Mayonnaise)Referring MD: | | | Requesting Provider: Medicines: [...] The | | | Olympus TJF-Q180V Duodenoscope #[id number] was | | | introduced through the [...] with acute | | | cholangitis. The golf player assistant film was normal. The esophagus was | [...] Initiated On: | | | 06/27/2017 6:38 [facility] Letter to: DARYL MARCH MD | | [...] + | MRN: | [facility] | | [id number] Date: 06/27/2017Patient Name: Lilian Nair #: | ENDOSCOPY | | [id number] of : 1935SN: [id number] Type: | | | InpatientRoom: SORProcedure: ERCPIndications: | | | For therapy of ascending cholangitis; 82 yo M with | | | sepsis, elevated LFTs and US showing mary dil and 1.3 cm | | | CBDProviders: BRINTHA | | | K. ENESTVEDT, MD (Doctor), JORDY SOLANO, | | | RN (Nurse), ESTELA DAMIAN RN (Cook Mayonnaise)Referring MD: | | | Requesting Provider: Medicines: [...] The | | | Olympus TJF-Q180V Duodenoscope #[id number] was | | | introduced through the [...] with acute | | | cholangitis. The golf player assistant film was normal. The esophagus was | [...] Initiated On: 06/27/2017 | | | 6:38 [facility] Letter to: DARYL MARCH MD | | [...] LABORATORY | [address] | [place] [address] | | | YOKASTA RUIZ | [place] [...] | + + + + + | [facility] | [address] | [place] [address] | | | SERVICES, CORE | PARK [...] | + + + + + | [facility] | [address] [facility] | [place] [address] | | | SERVICES, CORE | [place]INA [...] | | | LABORATORY | | | SAMMARINESE | | | SERVICES, | | | [...] + + | [facility] | [address] [facility] | [place] [address] | | | SERVICES, CORE | PARK [...] + + | ECG | Borderline prolonged MO | | [facility] | | | [...] OF | [address] | [place], [place] | | | CARDIOLOGY | [address] | [address] | | + + + + + [...] [facility] | [address] | [place] [address] | | | SERVICES, CORE | PARK [...] + + | [facility] | [address] | [place], [place] | | | YUE DARLING OF [facility] | [address] | [address] | | | TESTS | | | [...] Note | + + | Service Account, Eoscene In Interface - 06/27/2017 9:07 AM PST [...] [facility] | [address] | [place], [place] | | | DILAN TURNER OF CARE | [address] | [address] | | | TESTS | | | [...] | + + + + + | [facility] | [address] | [place], [place] | | | CARDIOLOGY | [address] | [address] | | + + + + + [...] correct patient, procedure, | | | equipment, geophysical support specialist and site/side marked as required. [...] | | | | | | Pathology [place] | | | | | | Louis [...] number | | | | | | [id number]. Bile duct, | | | | | [...] HOSPITAL | [address] | [place] [address] | | | PATHOLOGY | [address] [...] correct patient, | | | procedure, equipment, geophysical support specialist and site/side marked as required. [...] modified Seldinger technique (a | | | zvvwtrtb-qrmp-vwj-nridmw-ghzx-ojpq-wdagbch-spd-zbnkownq) was used for | | | vessel [...] | [facility] | [address] | [place] [address] | | | SERVICES, CORE | CAR[place]INA [...] LABORATORY | [address] | [place] [address] | | | SERVICES, CORE | PARK [...] [facility] | [address] | [place] [address] | | | SERVICES, CORE | PARK [...] + + | [facility] | [address] [facility] | [place] [address] | | | SERVICES, CORE | [place] [...] | | | LABORATORY | | | SAMMARINESE | | | SERVICES, | | | [...] | + + + + + | [facility] | [address] | [place] [address] | | | SERVICES, CORE | [place] [...] OF | [address] | [place], [place] | | | CARDIOLOGY | [facility] | [address] | | + + + + + [...] LABORATORY | [address] | [place] [address] | | | SERVICES, CORE | PARK [...] | + + + + + | [facility] | [address] | [place] [address] | | | YOKASTA RUIZ | [address] | | | + + + + + RAINBOW HOLD TUBE - BLUE TOP (06/26/2017 11:53 AM PST) + + | Specimen | + + | Blood - Blood | | (substance) | + + + + + + + | Performing | Address | City/State/Zipcode | Phone Number | | Organization | | | | + + + + + | [facility] | [address] | [place] [address] | | | YOKASTA RUIZ | PARK [...] Note | + + | Service Account, TruckTrack Res In Interface - 06/26/2017 12:57 PM [...] | + + + + + | [facility] | [address] | [place] [address] | | | SERVICES, CORE | [place] [...] Note | + ----+ | Service Account, TruckTrack Res In Interface - 06/26/2017 12:57 PM [...] Note | + + | Service Account, TruckTrack Res In Interface - 06/26/2017 10:12 AM [...] | [facility] | [address] | [place] [address] | | | SERVICES, | [address] [...] LABORATORY | [address] | [place] [address] | | | SERVICES, | [address] [...] | + + + + + | [facility] | [address] | [place] [address] | | | SERVICES, | [address] [...] + + + | ECG | Prolonged MO interval | | [facility] | | [...] OF | [address] | [place], [place] | | | CARDIOLOGY | [address] | [address] | | + + + + + [...] - | | | | | | [place] | | + + + + + [...] + | [facility] | [address] | [place] [address] | | | [place] | | | [...] + | [facility] | [address] | [place] [address] | | | [place] | | | [...] | [facility] | [address] | [place] [address] | | | SERVICES, CORE | PARK [...] LABORATORY | [address] | [place] [address] | | | SERVICES, CORE | [place]INA [...] | + + + + + | [facility] | [address] [facility] | [place] [address] | | | SERVICES, CORE | [address] | | | + + + + + CULTURE, BLOOD BACTI & YEAST [facility] (06/26/2017 9:39 AM PST) + + + [...] LABORATORY | [address] | [place] [address] | | | SERVICES, CORE | PARK [...] LABORATORY | [address] | [place] [address] | | | SERVICES, CORE | PARK [...] | + + + + + | [facility] | [address] | [place] [address] | | | SERVICES, CORE | PARK [...] LABORATORY | [address] | [place] [address] | | | SERVICES, CORE | PARK [...] | | | LABORATORY | | | SAMMARINESE | | | SERVICES, | | | [...] LABORATORY | [address] | [place] [address] | | | SERVICES, CORE | PARK [...] | + + + + + | [facility] | [address] | [place] [address] | | | SERVICES, CORE | [address] | | | + + + + + QD-WJ-TDD-HB,POC RT (06/26/2017 8:55 AM PST) + + + + + + | Component | Value | Ref Range | Performed | Pathologist | | | | | At | Signature | + + + + + + | HCO3 | 22.4 | 22 - 28 mmol/L | [facility] - | | | VENOUS, POC | [...] + + + | [facility] | [address] | [place], [place] | | | DILAN [facility] [place] | [address] | [address] | | | TESTS | | | [...] | | | | | NEEDED, Starting [facility] 06/28/17 at | | | | | [...]
--- OUTSIDE RECORDS SUMMARY | ~2020-02-16 | XMS | Encounter Summary ---
Demographics + + + | Address | [address] [address] | | | [place] [address] | + + + | Home Phone | | + + + | Preferred Language | Unknown | + + + | Marital Status | | + + + | Worship Affiliation | Unknown | + + + | Race | White | + + + | Ethnic Group | Not or | + + + Author + + + | Author | [facility] | | | and [place] | + + + | Organization | [facility] | [...] Team Providers + +------+ + | Care Technology Lead Name | Role | Phone | + [...] | | disease, | PATSY BAILEY | [address] | | | | | unspecified | TREASURE [address] | [address] | | | | | COPD type | [place], [place] | [place] | | | | | ([facility]) | [address] | [address] | | | | | Procedures | Phone: | Phone: | | | | | Pulmonary | [phone] | [phone] | | | | | function | Fax: | Fax: | | | | | test | [phone] | [phone] | +--------+--------+ + + + + Reason [...] | | | pulmonary | [address] | [address] | | | | | disease, | [address] [place] | [address] | | | | | unspecified | [place] | [place] | | | | | COPD type | [address] | [address] Phone: | | | | | ([facility]) | Phone: | [phone] | | | | | | [phone] | Fax: | | | | | | Fax: | [phone] | | | | | | [phone] | | +--------+ + + + + + Encounter Details +--------+---------+ + + + | Date | Type | Department | Care Team | Description | +--------+---------+ + + + | 04/30/ | Office | [facility] | Yovanny, | Shortness of breath | | 2019 | Visit | PULMONOLOGY [address] | She Youssef, | (Primary Dx); | | | | PATSY ORANTES | MD [address] | Chronic obstructive | | | | [place] | [place], | pulmonary disease, | | | | [address] | [place] [address] | unspecified COPD | | | | [phone] | [phone] | type (HCC); | | | | [...] documented in this encounter Progress Notes Brock Bocangera, Correction Warden - 04/30/2019 1:30 PM PST3 step testing Oximetry Exercise (code) 90960 1. At rest on room air: Time:2:24 [...] been admitted for a bowel obstruction in [facility] and he is recovering from this. [...] the last time he was admitted in [facility]. 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 He has a dog. He denies owning pigeons. He grew up in [place]. He denies having respirator y issues when [...] Choledocholithiasis Chronic obstructive pulmonary disease (COPD) ([facility]) Crush injury lower extremities 1966 Left leg [...] BACK SURGERY 1981 Lower back COLONOSCOPY 09/23/2013 [facility] ENDOSCOPY 08/10/2013 [facility] ERCP N/A 08/14/2017 Procedure: ERCP; Surgeon: Jamey Hdz MD; Location: [facility] HIP FRACTURE SURGERY Left [...] OTHER SURGICAL HISTORY Endobiliary stent placed at [facility] Removal of lesion Right 2009 Right hand [...] his PFT. His studies were sent to [facility]. Three minute walk test did not [...] Hairston MD Pulmonary and Critical Care Medicine [facility]/[address] , [place] [address] documente d in this encounter Plan of [...]
--- OUTSIDE RECORDS SUMMARY | ~2020-02-16 | XMS | Encounter Summary ---
Demographics + + + | Address | [address] | | | [place] [address] | + + + | Home Phone [...] Team Providers + +------+ + | Care Licensed Marine Engineer Name | Role | Phone | + +------+ + | Herlinda Maldonado | PCP | | + +------+ + Encounter Details +--------+ + + + + | Date | Type | Department | Care Team | Description | +--------+ + + + + | 06/26/ | Document-Sc | Health Information | Other, Faculty | | | 2018 | anned | Services 1991 | [phone] | | | | | [address] | | | | | | Mailcode: [id number] | | | | | | [facility] | | | | | | [place], [place] | | | | | | [address] | | | | | | [phone] | | | +--------+ + + + [...]
--- OUTSIDE RECORDS SUMMARY | ~2020-02-16 | XMS | Encounter Summary ---
Demographics + + + | Address | [address] | | | [place] [address] | + + + | Home Phone [...] Team Providers + +------+ + | Care Pbx Supervisor Name | Role | Phone | [...] | 6A Intra Op 3181 | Nguyễn hSepard | Percutaneous | | 2019 | | LUIS FERNANDO Figueroa | MD Meron [address] Sagastume | fixation of | | | | Rd [facility] | [facility] [address] | acetabular | | | | Hospital Admitting | [place], [place] | lesly-prosthetic | | | | Desk Located on the | [id number] | fracture | | | | 9th floor | [phone] | | | | | [place], [place] | | | | | | [address] | | | +--------+---------+ + + + [...] might be differe nt from the original. [facility] DEPARTMENT OF ORTHOPAEDICS & REHABILITATION INPATIENT HOSPITAL DISCHARGE SUMMARY & INTERDISCIPLINARY INSTRUCTIONS Patient: Lilian Hurst CSN: [id number] Admission Date: 05/31/2018 Discharge Date: 06/06/2018 Attending [...] Call [facility] Orthopedics first at . Activity NON Weight bearing on left leg. For approximately 4 weeks to be determined at postoperative clinic visit. Condition on Discharge Stable Follow-Up Appointments ORTHOPEDICS OUTPATIENT CLINIC: Future Appointments Provider Department Dept Phone Center 07/02/2018 1:40 PM Nguyễn Chance Working Orthopaedics at [facility] [phone] Orthopedics PCP: As needed for any medical [...] administration instructions. - Call Orthopedic Clinic at [phone] if any persistent, localized swelling that does [...] and ask for the orthopaedic surgery resident databases computer consultant. Additional Post-Op Instructions / What to Expect [...] a SNF "I certify that post-hospital inpatient [facility] facility care is medically necessar y on [...] Condition on Discharge: Improved Discharging Patient To: [facility] Facility Date and Time of Discharge Summary Completion: 06/07/2018, 2:45 PM Discharging Provider: ELISE Mckeon Discharging Attending: Nguyễn Shepard MD Thank you for the opportunity to take care of Lilian Hurst during this inpatient stay, it has been our pleasure. ELISE Mckeon [facility] Department of Orthopaedics & Rehabilitation [address] [place] [address] Mail Code: OP31 [facility] [address] documented in t his encounter Medications at [...] Orthopedic Surgery service for surg ical management. [facility] initially consulted for pre-operative evaluation. Nausea/Vomiting Presumptive [...] Sanchez MD Attending Physician Clinical Hospitalist Services [facility] Pager [phone] Please call or page me with any questions or concerns. Doe Newman MD - 06/06/2018 9:11 AM PST Orthopaedic Surgery Progress Note Patient: /Age: MRN: CSN: Date: Admission Date: Hospital Day: Orthopaedic Attending: Lilian Hurst 1935 83 y.o. [id number] 06/06/2018 05/31/2018 6 Nguyễn Shepard MD Diagnosis: [...] Orthopedic Surgery service for surg ical management. [facility] initially consulted for pre-operative evaluation. Nausea/Vomiting Presumptive [...] Sanchez MD Attending Physician Clinical Hospitalist Services [facility] Pager [phone] Please call or page me with any questions or concerns. Doe Newman MD - 06/05/2018 7:10 AM PST Orthopaedic Surgery Progress Note Patient: /Age: MRN: CSN: Date: Admission Date: Hospital Day: Orthopaedic Attending: Lilian Hurst 1935 83 y.o. [id number] 06/05/2018 05/31/2018 5 Nguyễn Shepard MD Diagnosis: [...] refill < 2 seconds Doe Gongora MD [facility] Department of Orthopaedics & Rehabilitation [address] [place] [address] Mail Code: OP31 [facility] [address] Kg Snider MD - 06/04/2018 10:03 AM [...] increased bowel gas pattern Assessment and Plan Lliian Hurst is a 83-year-old man with COPD and HTN who presented to an OSH after GLF, found to have left pelvic fracture, transferred to [facility] Orthopedic Surgery service for surg ical management. [facility] initially consulted for pre-operative evaluation. Nausea/Vomiting Emesis [...] Sanchez MD Attending Physician Clinical Hospitalist Services [facility] Pager [phone] Please call or page me with any questions or concerns. oulton, Devendra Allen MD - 06/04/2018 7:48 AM PST Orthopaedic Surgery Progress Note Patient: /Age: MRN: CSN: Date: Admission Date: Hospital Day: Orthopaedic Attending: Lilian Hurst 1935 83 y.o. [id number] 06/04/2018 05/31/2018 4 Nguyễn Shepard MD Diagnosis: [...] to make a follow up appointment in [facility] 1 weeks with ORTHO TRAUMA & FRACTURE, Ana Gill, REHAB ASSISTANT - (Jie a nd Working) Subjective: Has [...] well perfused, capillary refill < 2 seconds, DNANY not indicated Reflexes: not performed LEFT LOWER [...] refill < 2 seconds Doe Gongora MD [facility] Department of Orthopaedics & Rehabilitation [address] [place] [address] Mail Code: OP31 [facility] [address] Devendra Scales MD - 06/03/2018 8:[address] [facility] DEPARTMENT OF ORTHOPAEDICS & REHABILITATION POST-OPERATIVE [...] MD Orthopaedic Surgery Resident 06/03/2018, 8:33 PM [facility] Department of Orthopaedics & Rehabilitation [address] [place] [address] Mail Code: OP31 [facility] [address] Jade Messina MD - 06/02/2018 8:36 AM [...] Please call Orthopaedic Trauma and Fracture at [phone] to schedule a followup within 2 weeks from discharge. ALEXA SEARS MD Pager: [phone] 06/02/2018 Doe Newman MD - 06/01/2018 8:27 AM PST Orthopaedic Surgery Progress Note Patient: /Age: MRN: CSN: Date: Admission Date: Hospital Day: Orthopaedic Attending: Lilian Hurst 1935 83 y.o. [id number] 06/01/2018 05/31/2018 1 Nguyễn Shepard MD Diagnosis: [...] to make a follow up appointment in [facility] 2-3 weeks with ORTHO TRAUMA & FRACTURE, [...] seconds Reflexes: not performed Doe Gongora MD [facility] Department of Orthopaedics & Rehabilitation [address] [place] [address] Mail Code: OP31 [facility] [address] documented in this enco unter Procedure Notes Nguyễn Shepard MD - 06/03/2018 4:58 PM PSTAssociated Order(s): OPERATION RECORDProced ure(s): [place] OPEN PIANO MACHINE OPERATOR FIX COMPLEX ACETABUL FXPre-Procedure Diagnose(s): Closed fracture of both anterior and posterior columns of left acetabulum (HCC)Post-Procedure Diagnose(s): Clos ed fracture of both anterior and posterior columns of left acetabulum (HCC)Date of Service: 06/03/2018 Attending Surgeon: Nguyễn Shepard MD Fish Agent(s): Devendra Da Silva MD. Preoperative Diagnosis: Left [...] He was transferred to the [facility] flat [facility]. A sacral bump consi sting of [...] 3 incisions. The patient was awoken from [facility] endotracheal anesthesia and transferred to the [...] surgeon. The patient i s from the [facility] and traveled many miles to get to [...] the patients care. Nguyễn Shepard MD ZMW/PRINCE /[id number] documented in this encounter Consult Notes Teresita Bobo PA-C - 06/05/2018 9:22 PM PSTINPATIENT GERIATRICS CONSULT - FOLLOW U P Admission Date: 05/31/2018 Hospital Day: 5 Referring Provider: Nguyễn Shepard MD Consulting Provider: TERESITA BOBO PA-C PCP: SHAHEEN Gustafson Consult Question: frailty and delirium management ID: Lilian Hurst (Frank) is an 83 y.o. 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 Please page consult pager [phone] if new questions for the geriatrics team [...] Sherly Ellison I spent 22 minutes in glma-px-ucnf care of Mr Hurst and in discussion on his unit with other providers, with > 50% in counseling/coordination of care regarding delirium management and prevention, pain control, mobility, and chart review and documentation on the unit. ROBEL Mohan PA-C Inpatient Geriatrics Consult Service Division of Internal Medicine & Geriatrics [facility] Pager: [phone] aShannon ramos H - 06/04/2018 6:04 PM [...] Dr. Nguyen. Jose Guadalupe Santiago, MS4 Pgr [phone] HISTORY OF PRESENT ILLNESS Lilian Hurst is [...] on file Social History Narrative Originally from [place], [place], but moved for a time in his teens to [facility]. 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 Enjoys [employer] his garden each summer, watching westerns, and game shows. Lives in his own home next doo r to his daughter with his Mirian saez. Typical day: wakes at 6 am, putters in the kitchen; breakfast is two homemade oatmeal cook ies, coffee and tangerines. Mirian De Anda wakes around 9 and he feeds her. Spends a few hours on [employer] "to see what everyone is talking about," [...] HOSPITALIST DISCHARGE SUMMARY Patient ID: Lilian Hurst [id number] 78 y.o. 1935 Admit date: 08/10/2013 Discharge [...] loss. The patien t was brought to [facility] and was transferred to [facility] for a GI evaluation. Dr. Ca from gastroenterology was consulted because of the ac cheesh-na GI bleed. The patient was started on [...] endoscopy the patient [facility]. 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 Had onset of abdominal pain and bloating [...] Diagnosis Date COPD (chronic obstructive pulmonary disease) ([facility]) GI bleed 2013 esophageal ulcer s/p clipping 2013 HTN (hypertension) Normocytic anemia Hgb around 11 in 2013 Prediabetes SVT (supraventricular tachycardia) ([facility]) unclear hx. "Possible SVT" per chart in [...] Social History Social History Narrative Originally from [place], [place], but moved for a time in his teens to [facility]. 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 Enjoys [employer] g his garden each summer, watching westerns, and game shows. Lives in his own home next doo r to his daughter with his Mirian saez. Typical day: wakes at 6 am, putters in the kitchen; breakfast is two homemade oatmeal cook ies, coffee and tangerines. DogMirian wakes around 9 and he feeds her. Spends a few hours on [employer] "to see what everyone is talking about," [...] moist mucous membran es, non-erythematous, no exudate. [place]. Dentition in fair repair. Cardiovascular: RRR with intermittent ectopic beats, no murmurs/rubs/gallops. No lower extr emity edema. Respiratory: Decreased breath sounds in bases L>R, otherwise clear. Breathing comfortably o n 2LPM by NC. Skin: Warm, dry, without rashes. Nails well trimmed. 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 Enjoys g rowing his garden each [...] LIP to utilize delirium order set in [facility] to identify cause and guide appropriat [...] Precious Bobo, Geriatric[place] [phone] with any further nursing questions or concerns, if you would like t o speak with our plate preparer databases computer consultant, they can be reached at pager [phone]. Rosita Paul RN, [place] Geriatric Nurse Educator/PPL [phone] Vic Zhang MD - 06/03/2018 9:12 AM PST HOSPITALIST INPATIENT PROGRESS NOTE Author: Vic Petty MD, PhD PCP: SHAHEEN Love Hospital Day:3 ID: Lilian Hurst is a 83-year-old man with COPD and HTN who presented to an OSH after GLF, found to have left pelvic fracture, transferred to [facility] Orthopedic Surgery service for surgical management. [facility] consulted for pre-operative evaluation. 24h Events: --Started [...] Orthopedic Surgery service for surg ical management. [facility] consulted for pre-operative evaluation. # Pre-operative risk [...] PhD Clinical Hospitalist and Medicine Teaching Services [facility] Pager [phone] I spent more than 26 minutes iqxr-ld-ejrr with the patient of which greater than [...] best of my knowledge. Home medication assessment: SHEAR SETTER medications updated per verbal Bimart fill history [...] regarding this information please contact pharmacy, pager [phone] Thank you, Tabitha Calvert PharmD Critical Care [...] PhD Clinical Hospitalist and Medicine Teaching Services [facility] Pager [phone] I spent more than 28 minutes bmdn-rr-xqxn with the patient of which greater than [...] Orthop edic Surgery service for surgical management. [facility] consulted for pre-operative evaluation. History derived from [...] Orthopedic Surgery service for christina gical management. [facility] consulted for pre-operative evaluation. # Pre-operative risk [...] PhD Clinical Hospitalist and Medicine Teaching Services [facility] Pager [phone] I spent 75 minutes in care of [...] OR Sunday - ELLEN SEARS MD Pager: [phone] 05/31/2018 [facility] DEPARTMENT OF ORTHOPAEDICS & REHABILITATION HISTORY & [...] No date: COPD (chronic obstructive pulmonary disease) ([facility]) 2014: GI bleed Comment: esophageal ulcer s/p clipping 2013 No date: HTN (hypertension) No date: Normocytic anemia Comment: Hgb around 11 in 2013 No date: Prediabetes No date: SVT (supraventricular tachycardia) ([facility]) Comment: unclear hx. "Possible SVT" per chart [...] & FRACTURE, The orthopaedics consult pager is #[phone], please call with questions. Doe Gongora MD, MPH Orthopaedic Surgery Resident p [phone] signed by Nguyễn Shepard MD at 06/01/2018 [...] of Orthopedics & Rehabilitation - Orthopaedic Trauma [facility] documented in this encounter Miscellaneous Notes [...] light/urinal/phones/yankour suction all in reach. Nurse notified. [facility] BASIC MOBILITY Difficulty turning over in bed [...] to do/total assistance - Total/Dependen t Assist [facility] Basic Mobility Total Score 16 Interpretation of [facility] Short Form - Basic Mobility: CMS Modifier [...] recommendations: to be determined . ANANYA Toney [phone] Rui - Kiah Corral RN - 06/05/2018 [...] emesis x3 in AM Hx: COPD, HTN, [place] 2018, stents, CHF, SVT SAFETY Patient/Family Target: [...] emesis x3 in AM Hx: COPD, HTN, OH 2017, stents, CHF, SVT SAFETY Patient/Family Target: [...] Daily Goal: sleep (06/04/182024) Patient Specific Preferences: [facility] hospital care (06/04/182024) [facility] IP NURSE [...] emesis x3 in AM Hx: COPD, HTN, OH 2018, stents, CHF, SVT SAFETY Patient/Family Target: [...] emesis x3 in AM Hx: COPD, HTN, [place] 2018, stents, CHF, SVT SAFETY Patient/Family Target: [...] 06/04/2018 4:58 PM PST Physical Therapy Evaluation [phone] LILIAN HURST [facility] Day: 4 Date of : 1935 Start [...] Diagnosis Date COPD (chronic obstructive pulmonary disease) ([facility]) GI bleed 2013 HTN (hypertension) Normocytic anemia Prediabetes SVT (supraventricular tachycardia) ([facility]) Past Surgical History: Procedure Laterality Date ANKLE [...] better, get home when he can Communication/Barriers: nepali/none Pain: indicates 12/28 Vital Signs: see doc [...] x 3' bed to chair Outcome Measure: [facility] BASIC MOBILITY Difficulty turning over in bed [...] to do/total assistance - Total/Dependen t Assist [facility] Basic Mobility Total Score 13 Interpretation of [facility] Short Form - Basic Mobility: CMS Modifier [...] says that she needs to return to [place] to get back to work and take care of both her and patient's home ( lives next door to Carlos). She is asking for information on getting Power of Food And Beverage Cashier paperwork so she can take care o [...] constitute 'legal advice' -Form will require notary. [facility] does not have notaries on staff. [...] notary list to email addresses provided: [email or web address] Recommendation/Plan/Referrals: will work on POA. Provided her with contact info for mobile [employer]. LUIS FERNANDO provided letter for 's employer. No other social work needs identified at this time. Social work referral completed. Closing case. See medical and ancillary service notes for other needs and care plans. Please call or page if additional social work needs are identified. Hansa Bhatt LCSW Colorectal Surgeon- 13K Oncology/7A Medical ICU/ 9K Orthopedics Phone: [phone] Pager:[phone] andoff - Maricruz Hicks RN - 06/04/2018 [...] 4 beats of v-tach Hx: COPD, HTN, [place] 2018, stents, CHF, SVT SAFETY Patient/Family Target: [...] pain medication information: none Functional Epidural: N/A EXHIBITIONS AND COLLECTIONS MANAGER: N/A Respiratory: RR: 16 , O2 [...] : Last void: 1500 Contact Name: Nathan [phone] Contact Number: Nathan [phone] Family contacted: Yes Comment:will update prior to tranfser Belongings:returning PIV x 2. Surgical incisions CDI. Confused as in preop. Oriented x self only and follows commands. Restless and tries to get oob. rief Op Note - Nguyễn Shepard MD - 06/03/2018 2:12 PM PSTFormatting of this note might be different from the o riginal. [facility] Department of Orthopaedics & Rehabilitation BRIEF OPERATIVE NOTE Patient: /Age: MRN: CSN: Date: Admission Date: Hospital Day: Lilian Hurst 1935 83 y.o. [id number] 06/03/2018 05/31/2018 3 Attending Surgeon: Nguyễn Shepard MD Fish Agent(s): 1. Mitesh Da Silva MD Preoperative Diagnosis(es): [...] to make a follow up appointment in [facility] 4 weeks with MD Drea 8. [...] 4 beats of v-tach Hx: COPD, HTN, OH 2018, stents, CHF, SVT? SAFETY Patient/Family Target: [...] fx 06/01: skeletal traction Hx: COPD, HTN, OH 2018, stents, CHF COMFORT/ANXIETY/BEHAVIOR Patient/Family Target: Manage [...] then dropping to 70-80s with irregular beats. [facility] consult notified and patient placed on tele; [...] for tachycardia & irregular rate -NPO at [place]; pre-op check list tonight EDUCATION NEEDS: D/C [...] skeletal traction 15 lbs Hx: COPD, HTN, OH 2018, stents, CHF COMFORT/ANXIETY/BEHAVIOR Patient/Family Target: Manage [...] Patient Daily Goal: RN advocacy: safety (06/01/18 0322) Patient Specific Preferences: cluster care (05/31/182046) [facility] IP NURSE HANDOFF: [facility] hospital course events: 05/31: tx from [facility]. Fell 05/30- left hip and pelvic fx 06/01: skeletal traction Hx: COPD, HTN, OH 2018, stents, CHF COMFORT/ANXIETY/BEHAVIOR Patient/Family Target: Manage [...] post OR. James Tucker PT, DPT Pager: [phone] lan of Care - Bob Hernandez RCP [...] hip and pelvic fx Hx: COPD, HTN, OH 2018, stents, CHF COMFORT/ANXIETY/BEHAVIOR Patient/Family Target: Manage [...] hip and pelvic fx Hx: COPD, HTN, OH 2018, stents, CHF COMFORT/ANXIETY/BEHAVIOR Patient/Family Target: Manage [...] [facility] hospital course events: 05/31 tx from [facility] . Fell 05/30- left hip and pelvic fx Hx: COPD, HTN, OH 2018, stents, CHF Recommendations Forward: Takes pills whole with water Was receiving 1mg IV dilaudid per report from [facility] MOBILITY: bedrest MOBILITY PLAN:- LAST TIME MOBILIZED:- PAIN: 5mg oxycodone ORDER FOLLOW-UP: - EDUCATION NEEDS: - D/C PLAN: surgery sunday ransfer Note - Gabriela Espinoza, D.O. - 05/30/2018 7:25 PM PST INPATIENT MEDICINE TRANSFER CENTER & INTRA-HOSPITAL ACCEPT NOTE Medicine Hospitalist Attending Author: Mehran Espinoza DO PCP: SHAHEEN Love [address] / [place] [address] FAX: [phone] I was called by transfer line to discuss possible transfer of Lilian Hurst to [facility] Medicine Service. The history is obtained from referring provider and I have not corrob orated history with patient or record, as patient still under direct care of referring [facility]. Referring Physician: Dr. Cabello Referring Site (or [facility] Service): [facility] Specialists involved: , orthopedics Reason for Transfer/Admission: fractured pelvis Floor or ICU Request: Floor HPI/PMH/Exam: Lilian Hurts is an 83 year old man with COPD, hypertension, prior OH, mild chf, who pr esented with a left acetabular fracture after a ground-level fall. Had a ground-level fall this morning on ice. 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 Now has complex acetabular and pelvic fracture. Has multiple medical comorbidities including COPD, hypertension, prior OH, "mild chf", none of which appear to b e active currently. Highly functional at baseline. Current Vitals: 97.9, heart rate 65, 153/85, 92% on RA Pertinent Studies: Labs: Hgb 14.5, platelets 159; chemistries and EKG within normal limits Imaging: chest x-ray within normal limits Procedures: not applicable Code Status: FULL code Disposition: (accepted or declined) After discussion with the emergency department and phys mnjsr-xg-qus-day, ultimately admitted to orthopedics as primary with [facility] consulting. Please contact [facility] when the patient arrives and we will provide medical and lesly-operative consultation. Mehran Espinoza D.O. Contribution Solicitorcarpenter helper maintenance [facility] Clinical Hospitalist Service Pager [phone] ransfer Note - Daniela Clarke MD - 05/30/2018 6:00 PM [id number] M copd htn prior OH CHF Left acetabular fracture after GLF Ortho [...] LABORATORY | [address] | [place] [address] | | | SERVICES, CORE | RICHARD [...] | | | LABORATORY | | | [place] | | | SERVICES, | | | [...] [facility]ATORY | [address] | [place] [address] | | | YOKASTA RUIZ | RICHARD [...] | + + + + + | [facility] | [address] | [place] [address] | | | SERVICES, CORE | RICHARD [...] | | | LABORATORY | | | [place] | | | SERVICES, | | | [...] | + + + + + | [facility] | [address] | [place] [address] | | | SERVICES, CORE | RICHARD [...] LABORATORY | [address] | [place] [address] | | | SERVICES, CORE | PARK [...] | [facility] | [address] [facility] | [place] [address] | | | SERVICES, [facility] | [address] | | | + + + + + X-RAY PORTABLE 2 VIEW ABDOMEN (KUB AND UPRIGHT) (06/04/2018 2:32 PM PST) + + | Specimen | + + | | + + + + + | Narrative | Performed At | + + + | EXAM: IL 2 VIEW ABDOMEN (KUB AND UPRIGHT) History: [...] Interface - 06/04/2018 4:24 PM PST EXAM: IL 2 VIEW | | ABDOMEN (KUB AND [...] LABORATORY | [address] | [place] [address] | | | SERVICES, CORE | PARK [...] LABORATORY | [address] | [place] [address] | | | SERVICES, CORE | [address] | | | + + + + + INR (06/04/2018 9:37 AM PST) + +-------+ + + + | Component | Value | Ref Range | Performed | Pathologist | | | | | At | Signature | + +-------+ + + + | INR | 1.04 | 0.90 - 1.20 INR | [facility] | | | | | | LABORATORY [...] LABORATORY | [address] | [place] [address] | | | SERVICES, CORE | PARK [...] | | | LABORATORY | | | [place] | | | SERVICES, | | | [...] [facility] | [address] | [place] [address] | | | SARA, YOKASTA | RICHARD [...] now | | | presented. Final signature: Lcahelle Lobo MD 06/04/2018 | | | 4:41 [...] Lobo MD 06/04/2018 4:41 PM Preliminary: Venu oJshi MD | | 06/04/2018 9:02 AM Dictation [...] | | Attending Surgeon: Nguyễn Shepard MD Fish Agent(s): Devendra Allen | | MD Avinash. Preoperative [...] He | | was transferred to the [facility] flat top. A sacral bump consisting of [...] We | | then proceeded to the [facility] for the start point for the LC2 [...] orthopaedic surgeon. The patient is from the [place] area and traveled many miles to | [...] 06/03/2018 14:26:09DT: | | 06/03/2018 16:58:33Job #: [id number] | + + MAGNESIUM, PLASMA (06/03/2018 4:37 [...] LABORATORY | [address] | [place] [address] | | | YOKASTA RUIZ | RICHARD [...] OF | [address] | [place], [place] | | | CARDIOLOGY | [facility] | [address] | | + + + + + [...] TOBAR | [address] | [place], [place] | | | DILAN TURNER OF [facility] | [address] | [address] | | | TESTS | | | | + + + + + X-RAY PELVIS 4+ VIEWS (06/03/2018 2:05 [facility]) + + | Specimen | + [...] AMADOU | [address] | [place], [place] | | | DILAN TURNER OF [facility] | [address] | [address] | | | TESTS | | | [...] LABORATORY | [address] | [place] [address] | | | SERVICES, CORE | PARK [...] | | | LABORATORY | | | [place] | | | SERVICES, | | | [...] [facility] | [address] | [place] [address] | | | YKOASTA RUIZ | [address] | | | [...] Note | + + | Service Account, [facility] In Interface - 06/02/2018 11:23 AM [...] DEPT OF | [address] | [place], [place] | | | CARDIOLOGY | [address] | [address] | | + + + + + [...] | + + + + + | [facility] | [address] | [place] [address] | | | SERVICES, CORE | RICHARD [...] | [facility] | [address] [facility] [facility] [facility] | [place] [address] | | | SERVICES, CORE | PARK [...] | | | LABORATORY | | | [place] | | | SERVICES, | | | [...] LABORATORY | [address] | [place] [address] | | | SERVICES, CORE | PARK [...] [facility] | [address] | [place] [address] | | | SERVICES, | [address] [...] LABORATORY | [address] | [place] [address] | | | SERVICES, | [address] [...] | + + + + + | [facility] | [address] | [place] [address] | | | SERVICES, CORE | RICHARD [...] LABORATORY | [address] | [place] [address] | | | SERVICES, CORE | PARK [...] | | | LABORATORY | | | [place] | | | SERVICES, | | | [...] HOSPITAL LABORATORY | [address] | [place] [address] | | | SERVICES, YOKASTA | RICHARD [...] LABORATORY | [address] | [place] [address] | | | SERVICES, CORE | PARK [...] | | | LABORATORY | | | [place] | | | SERVICES, | | | [...] + + + | [facility] | [address] | [place] [address] | | | SERVICES, CORE | RICHARD [...]
--- OUTSIDE RECORDS SUMMARY | ~2020-02-16 | XMS | Encounter Summary ---
Demographics + + + | Address | [address] | | | [place] [address] | + + + | Home Phone [...] Team Providers + +------+ + | Care Spanish Interpreter Name | Role | Phone | + [...] as of this encounter Progress Notes Interface, Photographer Lithographic In - 11/26/2005 3:10 AM PDT ULTRASOUND [...] Bay M.D. and Waylon Simeon, Ophthalmic Echographer [place] / [id number] / [id number] / [id number] / Tdocumented in this encounter Plan of [...] | Transcriptions | + + | Interface, Photographer Lithographic In - 11/26/2005 3:10 AM PDT | | ULTRASOUND EVALUATION REPORTPATIENT: EDSON HURSTOSMEL: | | 07/14[birth year]2002CYNDEE BAUTISTA: Tacos Crawford M.D. : | | OD.HISTORY: [...] andWaylon Simeon, Ophthalmic | | EchographerME / [id number] / [id number] / [id number] / T: 07/17/2002 | |HISTORY: This gentleman [...] |Waylon Simeon, Ophthalmic Echographer | | | |[place] / | |[id number] / [id number] / [id number] / | | | | | + + documented in this encounter Visit Diagnoses Not on filedocumented in this encounter"
--- OUTSIDE RECORDS SUMMARY | ~2020-02-16 | XMS | Encounter Summary ---
Demographics + + + | Address | [address] | | | [place] [address] | + + + | Home Phone [...] Team Providers + +------+ + | Care Paper Pattern Folder Name | Role | Phone | + [...] Mitesh | | | | | [facility] | [facility] | | | | | Hospital Admitting | [place], [place] | | | | | Desk Located on the | [address] | | | | | 9th floor | [phone] | | | | | [place], [place] | | | | | | [address] | | | +--------+ + + + [...] | | +--------+ + + + | Principal Cyber Engineer | 06/27/17; 2205; Medium | 06/27/172205 by [...] | | Endotracheal Tube; 7.5; Oral; | THERAPEUTIC STRATEGY LEAD | THERAPEUTIC STRATEGY LEAD | | | 06/03/18; 1418 | | [...] encounter [place] Notes Anesthesia Postprocedure Evaluation - Donnie Cardona CRNA - 06/03/2018 2:31 PM PSTForm atting of this note might be different from the original. William Burns [id number] Allergies Allergen Reactions Aromatic Dyspnea Budesonide-Formoterol Dyspnea "I can't breathe when I use it." Fluticasone-Salmeterol Dyspnea "I can't breathe when I use it." Eucalyptus Dyspnea Fluticasone Dyspnea Hydrochlorothiazide Rash Past Surgical History Procedure Laterality Date Treatment of fracture of lower leg 2003 Right knee surgery knee cap surgery Ankle surgery left ankle crushed in accident Back surgery 1980 Temp: 36.4 C (97.5 F) Heart Rate: 56 Resp: 18 BP: 111/68 SpO2: 98 % Evaluation Patient personally seen and evaluated for recovery from anesthesia care, ROS including Card s, Resp, Neuro, and GI w/o evidence of adverse effects, VS (BP, HR, RR, SpO2, and Temp) and hydration status are stable no PONV Pain controlled No Altered mental status Complications No adverse events nesthesia Proced ure Notes - Donnie Cardona CRNA - 06/03/2018 11:57 AM PSTAssociated Order(s): ANE ETTPro cedure Reason for Intubation: For surgical procedure, Location Performed: OR , Patient was preoxyg enated Mask Ventilation Grade 1 - Ventilated by mask Intubation Blade type: Eva , Blade size: 3, Atraumatic laryngoscopy: Atraumatic Laryngoscopy, La ryngoscopic view: Grade I, Number of Attempts: 1, Positive for EtCO2: Yes, Breath sounds: Bi lateral and equal ETT ETT Size: 7.5 ETT secured with: adhesive tape Depth at Teeth: 23 Cm Airway leak: Yes Narrative Attending: HEEDER, CATHI Performed by DONNIE SERVIN nesthesia Preprocedu re Evaluation - Cathi Macario MD - 06/03/2018 10:54 AM PSTFormatting of this note might b e different from the original. William Burns [id number] Allergies Allergen Reactions Aromatic Dyspnea Budesonide-Formoterol Dyspnea "I can't breathe when I use it." Fluticasone-Salmeterol Dyspnea "I can't breathe when I use it." Eucalyptus Dyspnea Fluticasone Dyspnea Hydrochlorothiazide Rash NPO:NPO Status: > midnight Last Vitals: Temp: 37.5 C (99.5 F) Heart Rate: 70 Resp: 14 BP: 147/87 SpO2: 94 % O2 Flow Rate: 3 LPM O2 Delivery Device: Nasal cannula Preg Status/LMP: Patient Active Problem List Diagnosis Choledocholithiasis Acute cholangitis Klebsiella sepsis ([facility]) Aspiration pneumonitis ([facility]) S/P ERCP COPD (chronic obstructive pulmonary disease) ([facility]) Essential hypertension Physical deconditioning Past Surgical History Procedure Laterality Date Treatment of fracture of lower leg 2003 Right knee surgery knee cap surgery Ankle surgery left ankle crushed in accident Back surgery 1980 Current Medication List Name Sig Last Dose DILTIAZEM CD 240 MG CAPSULE,EXTENDED RELEASE 24 HR Take 240 mg by mouth once daily. 06/03/19 FUROSEMIDE 20 MG TABLET Take 20 mg by mouth once daily. 06/03/2018 LISINOPRIL 20 MG TABLET Take 20 mg by mouth once daily. 06/03/2018 OMEPRAZOLE 40 MG CAPSULE,DELAYED RELEASE Take 40 mg by mouth once daily in the morning. PRAVASTATIN 10 MG TABLET Take 10 mg by mouth once daily at bedtime. 06/03/2018 Lab Results Component Value Date RATE 78 06/02/2018 ATRIALRATE 79 06/02/2018 NV 177 06/02/2018 QRS 139 06/02/2018 QT 425 06/02/2018 PAXIS 86 06/02/2018 RAXIS 94 06/02/2018 TAXIS 56 06/02/2018 Preoperative Adult Anesthesia Plan Last edited 06/03/18 1053 by Cathi Macario MD ROS: HPI: 83yo gentleman who had a ground level fall resulting in left pelvic fracture and is s/f left acetabulum closed vs. ORIF. PMH: - COPD - HTN - hx of GIB from esophageal ulcer (s/p clipping) NPO since midnight. Pulmonary: no shortness of breath no cough no wheezing no rhinorrhea no Recent Respiratory Infection Pt. Has no asthma COPD mild No dx of sleep apnea Risk factors for sleep apnea: Gender Male and Age>50 Pt at low risk of JYOTI Cardiovascular: no chest pain no CHF hypertension no CAD Sx no valvular problems/murmurs arrhythmia (?Hx of SVT, some episodes overnight of Afib vs sinus tach w/ PACs, short run of non-sustained VT; has RBBB) SVT GI/Hepatic: GI Bleed (Hx of GIB in 2013 from esophageal ulcer, s/p clipping) no OTHER GI no GERD no liver disease Renal: no renal failure no electrolyte abnormalities no dialysis Endo: no Diabetes: no Endocrine Other no Hx Corticosteroid Use Neuro/Psych: No Head Conditions No Spine Conditions no Psych Disorder Musculoskeletal: no arthritis No Muscular Disorders skeletal disorders fractures, Left acetabulum Heme/Onc: Pt. has: no active bleeding no bleeding disorder No clotting disorders no malignancy Physical Exam General: Appearance: Age appropriate and No distress LOC: Drowsy HEENT: Normocephalic/Atraumatic, Normal sclerae/conjunctivae and Oropharyngeal mucosa pink/moist Airway: Dentition: poor dentition Mallampati: 1 Mouth Opening: > 3 cm TM Distance:> 6 cm C-Spine ROM: Normal Neck Anatomy: Normal Jaw Protrusion: Limited (lower incisors only meet upper incisors) Pulmonary: Respiratory: pulmonary exam normal Breath Sounds: breath sounds normal Cardiovascular: Rhythm: Regular Rate: Normal Abdomen: General: Normal Neuro/Psych: Appears a little slow/confused this morning. Is oriented but questions had to be repeated multiple times before he would give an answer. Affect: Abnormal Speech: Normal speech 1053 Revision History Date/Time User Provider Type Action > 06/03/18 1053 Cathi Macario MD Anesthesiologist Sign 06/03/18 1052 Cathi Macario MD Anesthesiologist Share 06/03/18 1041 Cathi Macario MD Anesthesiologist Share Anesthesia Plan Comments ASA ASA 3 NPO Status NPO Status: NPO by protocol Monitors/Lines to be used Standard Anesthetic Consideration Induction intravenous induction Anesthetic Technique General; Obstetric Anesthesia Post-Op Pain Plan IV analgesics; Blood Products T and S; Informed Consent PARQ discussed with: patient, Procedures, Alternatives, Risks, and Questions discussed and Risk/benefit of anesthesia plan and blood product discussed Dental Risk discussed with patient ; ; Date Consent Series Given: 06/03/2018 10:54 AM Code status in OR Patients Code Status in OR: FULL 06/03 10:54 AM documented in this en counter Miscellaneous Notes PMC/ANE PreOp Note - Cathi Macario MD - 06/03/2018 10:34 AM PSTROS: HPI: 83yo gentleman who had a ground level fall resulting in left pelvic fracture and is s/f lef t acetabulum closed vs. ORIF. PMH: - COPD - HTN - hx of GIB from esophageal ulcer (s/p clipping) NPO since midnight. Pulmonary: no shortness of breath no cough no wheezing no rhinorrhea no Recent Respiratory Infe ction Pt. Has no asthma COPD mild No dx of sleep apnea Risk factors for sleep apnea: Gen erik Male and Age>50 Pt at low risk of JYOTI Cardiovascular: no chest pain no CHF hypertension no CAD Sx no valvular problems/murmurs arrhythmia ( ?Hx of SVT, some episodes overnight of Afib vs sinus tach w/ PACs, short run of non-sustaine d VT; has RBBB) SVT GI/Hepatic: GI Bleed (Hx of GIB in 2013 from esophageal ulcer, s/p clipping) no OTHER GI no GERD n o liver disease Renal: no renal failure no electrolyte abnormalities no dialysis Endo: no Diabetes: no Endocrine Other no Hx Corticosteroid Use Neuro/Psych: No Head Conditions No Spine Conditions no Psych Disorder Musculoskeletal: no arthritis No Muscular Disorders skeletal disorders fractures, Left acetabulum Heme/Onc: Pt. has: no active bleeding no bleeding disorder No clotting disorders no malignancy Physical Exam General: Appearance: Age appropriate and No distress LOC: Drowsy HEENT: Normocephalic/Atraumatic, Normal sclerae/conjunctivae and Oropharyngeal mucosa pink/moist Airway: Dentition: poor dentition Mallampati: 1 Mouth Opening: > 3 cm TM Distance:> 6 cm C-Spine ROM: Normal Neck Anatomy: Normal Jaw Protrusion: Limited (lower incisors only meet upper incisors) Pulmonary: Respiratory: pulmonary exam normal Breath Sounds: breath sounds normal Cardiovascular: Rhythm: Regular Rate: Normal Abdomen: General: Normal Neuro/Psych: Appears a little slow/confused this morning. Is oriented but questions had to be repeated m ultiple times before he would give an answer. Affect: Abnormal Speech: Normal speech documented in this en counter Plan of Treatment Not on filedocumented as of this encounter Procedures + +--------+ + + + | Procedure Name | Priori | Date/Time | Associated Diagnosis | Comments | | | ty | | | | + +--------+ + + + | JOSE MANUEL ETT | Routin | 06/03/2018 | | Results for this | | | e | 11:57 AM | | procedure are in the | | | | PST | | results section. | + +--------+ + + + documented in this encounter Results JOSE MANUEL ETT (06/03/2018 11:57 AM PST) + + + [...] | Narrative Attending: CATHI MACARIO Performed by WOODY | | | DONNIE CARDONA | | [...] INTRAPROCEDURE PRN, Starting Mon | | 19 12:07 | | | | | 06/03/18 [...] | +---+---+ + +-------+ +--------+---+---+ | glycopyrrolate (TOBIAS) | Given | 06/03/19 | 0.4 mg [...] INTRAPROCEDURE PRN, Starting Mon | | 19 2:08 | | | [...]
--- OUTSIDE RECORDS SUMMARY | ~2020-02-16 | XMS | Encounter Summary ---
Demographics + + + | Address | [address] | | | [place] [address] | + + + | Home Phone | | + + + | Preferred Language | Unknown | + + + | Marital Status | | + + + | Restorationism Affiliation | Unknown | + + + [...] Team Providers + +------+ + | Care Systems Trainer Name | Role | Phone | + [...] | | | | | | | PA ERCP DX | | | | | | | COLLECTION | | | | | | | SPECIMEN | | | | | | | BRUSHING/WAS | | | | | | | JOSE PA | | | | | | | ERCP | | | | | | | BILIARY/PANC | | | | | | | DUCT STENT | | | | | | | EXCHANGE | | | | | | | W/DIL&WIRE | | | | | | | PA | | | | | | | [...] + + | 08/14/ | Hospital | [facility] | Jamey Hdz | | | 2018 | Encounter | MED CTR XRAY [address] | MD Sarkis [address] | | | | | [place] | [address] [place] | | | | | [place] [address] | [place] [address] | | | | | [phone] | [phone] | | | | | | | [...]
--- OUTSIDE RECORDS SUMMARY | ~2020-02-16 | XMS | Encounter Summary ---
Demographics + + + | Address | [address] | | | [place] [address] | + + + | Home Phone [...] + + + | Author | [facility] | | | and [place] | + + + | Organization | [facility] | | [...] Team Providers + +------+ + | Care Bright Cutter Name | Role | Phone | + +------+ + | Herlinda Maldonado | PCP | | | PA | | | + +------+ + Encounter Details +--------+ + + + + | Date | Type | Department | Care Team | Description | +--------+ + + + + | 03/26/ | [facility] | [facility] | Maximilian Abreu | Atrial fibrillation, | | 2019 | Encounter | MED CTR NUCLEAR | MD Jon [address] | unspecified type | | | | MEDICINE [address] | [address] [place] | ([facility]); Abnormal EKG | | | | [address] [place], | [place] [address] | | | | | [place] [address] | [phone] | | | | | [phone] | | | +--------+ + + + [...] AGE: 84 y.o. PRIMARY CARE: SHAHEEN Toro PRATHER FUEL SYSTEM MAINTENANCE WORKER: Salvador Abreu MD, PhD, [facility] 48-HOUR HOLTER MONITOR REPORT DATE: 03/26/2019 [...] 25 cycles on 01:15. 5) There were [id number] Supraventricular beats with 558 couplets and 78 [...] reported. Signed by: Salvador Abreu MD PhD [facility] 03/27/2019, 16:05 documented in t his [...] PRIMARY CARE: | | | SHAHEEN Toro PRATHER FUEL SYSTEM MAINTENANCE WORKER: Salvador Abreu MD, | | | PhD, [facility] 48-HOUR HOLTER MONITOR REPORT DATE: 03/26/2019 [...] 01:15. | | | 5) There were [id number] Supraventricular beats with 558 couplets and | [...] | Signed by: Salvador Abreu MD PhD [facility] 03/27/2019, 16:05 | | + + [...]
--- OUTSIDE RECORDS SUMMARY | ~2020-02-16 | XMS | Encounter Summary ---
Demographics + + + | Address | [address] | | | [place] [address] | + + + | Home Phone [...] Team Providers + +------+ + | Care Cementer Machine Name | Role | Phone | + [...] Order | [address] [facility], | | | | | [address] | [place] [address] | | | | | [address], | [phone] | | | | | 4th floor [place], | | | | | | [place] [address] | | | | | | [phone] | | | +--------+ + + + [...] | + + + | MRN: | BETTINA | | [id number] Date: 06/27/2017Patient Name: William BurnsDannielle #: | ENDOSCOPY | | [id number] of : 1935SN: [id number] Type: | | | InpatientRoom: SORProcedure: ERCPIndications: | | | For therapy of ascending cholangitis; 82 yo M with | | | sepsis, elevated LFTs and US showing mary dil and 1.3 cm | | | CBDProviders: RENE | | | Thompson MALDONADO MD (Doctor), JORDY SOLANO, | | | RN (Nurse), ESTELA DAMIAN RN (Gasoline Pump Installer)Referring MD: | | | Requesting Provider: [...] The | | | Olympus [id number] Duodenoscope #[id number] was | | | introduced through the [...] with acute | | | cholangitis. The record changer assembler film was normal. The esophagus was | [...] Initiated On: | | | 06/27/2017 6:38 [facility] Letter to: LANA MATHEWS MD | | [...]
--- OUTSIDE RECORDS SUMMARY | ~2020-02-16 | XMS | Encounter Summary ---
Demographics + + + | Address | [address] | | | [place] [address] | + + + | Home Phone | | + + + | Preferred Language | Unknown | + + + | Marital Status | | + + + | Jainism Affiliation | Unknown | + + + | Race | White | + + + | Ethnic Group | Not or | + + + Author + + + | Author | [facility] | | | and [place] | + + + | Organization | [facility] | | | and [...] Team Providers + +------+ + | Care Ui Developer With Angular Js Name | Role | Phone | + [...] + + | 08/14/ | Hospital | [facility] | Jamey Penny | Encounter for | | 2018 | Encounter | MED CTR OR INTRA OP | MD Sarkis [address] | removal of biliary | | | | [address] | [address] [place] | stent; Calculus of | | | | [place], [place] | [place] [address] | bile duct with acute | | | | [address] | [phone] | cholecystitis and | | | | [phone] | | obstruction | +--------+ + + [...] of ascending cholangitis and sepsis, treated at [facility]. Had ERCP with sphin cterotomy, stone extraction, and stent placement on 06/26/17. He underwent cholecystectomy in [place] and on the IOC there were possible distal CBD filling defects. Pt reports that he feels well. Denies any abdominal pain presently. PAST HISTORY: Past Medical History: Diagnosis Date Atrial fibrillation (HCC) Backache Bronchitis Bundle branch block, right Calculus of bile duct with acute cholecystitis with obstruction Choledocholithiasis Chronic obstructive pulmonary disease (COPD) ([facility]) Crush injury lower extremities 1966 [...] SURGERY 1981 Lower back COLONOSCOPY 09/23/2013 [facility] ENDOSCOPY 08/10/2013 [facility] HIP FRACTURE SURGERY Left 2002 Pinning. Repeat in 2003 INGUINAL HERNIA REPAIR 2007 KNEE SURGERY 1968 KNEE SURGERY Right 1967 Open fracture reduction and internal fixation right knee in 1967 LAMINECTOMY Leg surgery Left 1959 Seven Reconstructive surgeries on his left leg and foot in the s with metal remaining . LUMBAR VERTEBRAL FUSION OTHER SURGICAL HISTORY Endobiliary stent placed at [facility] Removal of lesion Right 2010 Right hand [...] Class 2 (upper half of tonsil fossa) [place] [employer] Anest[employer] Grade:ASA 2 - A [...] Electronically Signed by: Jamey Penny MD 08/14/2017 [facility] VERIFICATION OF CONSENT (PARQ) The patient was counseled regarding the procedure, its indications, risks, potential compli cations and alternatives. Any questions were answered. Consent was obtained. Jamey Penny MD, 08/14/2017 12:59 [facility] Portions of this chart may have been created with [employer] voice recognition software. Occasi onal wrong-word or [...] INSTRUCTIONS Patient: William Burns : 1935 Acct: [id number] Exam Date: Monday, August 14, 2017 Doctor: [...] 1 day. Avoiding fatty foods such as [place], hamburgers, [place], ham and pork products, will [...] 08/14/2017 | [facility] | | 12:57 PMMRN: [id number] #: [id number] of : | | | 5Admit Type: AmbulatoryAge: 82Room: [facility] 02Gender: MaleNote | | | Status: FinalizedAttending MD: JAMEY PENNY , [facility] | | | ERCPIndications: Bile duct stone(s), Biliary stent | | | removalProviders: JAMEY PENNY MD, Kiah Orozco, | | | RN, Klaus Loco, RAYRAY, Vani Wisdom, | | | Metalworking Instructor, Yinka Dominguez MD | | | (Anesthesia [...] the procedure well.Findings: A | | | process line operator film of the abdomen was obtained. [...] | | was it seen on the process line operator image. - Several filling defects | [...] Out: | | | 1:58:[address] [facility], [address] [place] [address], | | | [place] [address] | | | - KUB today to [...] Out: 1:58:46 PM | | | [facility], [facility] [address] [facility], [place], [place] | | | [address] | | + + -+ + +---------+ [...] + | [facility] | [address] | [place] | [phone] | | [facility] | | [address] | | | - LABORATORY | | [...] mL/min/1.73m2 | [facility] | | | [place] | RATE,ESTIMATED | | MEDICAL | | | | mL/min/1.75w6Atwq than | | CENTER - | | [...] 9.2 | 8.3 - 10.5 | [facility] | | | | | mg/dL | [facility] | | | | | | MEDICAL | | | | | | CENTER - | | | | | | LABORATORY | | + + + + + + | Albumin | 4.0 | 3.2 - 5.0 g/dL | [facility] | | | | | | [facility] | | | | | | MEDICAL [...] [address] | [place] | [phone] | | [facility] | | [address] | | | - LABORATORY | | [...] [facility] [place] | [address] | [place] | [phone] | | [facility] | | [address] | | | - LABORATORY | | [...]
--- OUTSIDE RECORDS SUMMARY | ~2020-02-16 | XMS | Encounter Summary ---
Demographics + + + | Address | [address] | | | [place] [address] | + + + | Home Phone | | + + + | Preferred Language | Unknown | + + + | Marital Status | | + + + | Yarsani Affiliation | Unknown | + + + [...] Team Providers + +------+ + | Care Yarder Puncher Name | Role | Phone | + [...] | | | | [address] | [place] [address] | | | | | [address] | | | | | | [phone] | | | +--------+ + + + [...]
--- OUTSIDE RECORDS SUMMARY | ~2020-02-16 | XMS | Encounter Summary ---
Demographics + + + | Address | [address] | | | [place] [address] | + + + | Home Phone [...] Team Providers + +------+ + | Care Glass Cleaner Name | Role | Phone | [...] | | | | | [place], | | | | | | [place] [address] | | | +--------+--------+ + + + [...]
--- OUTSIDE RECORDS SUMMARY | ~2020-02-16 | XMS | Encounter Summary ---
Demographics + + + | Address | [address] | | | [place] [address] | + + + | Home Phone | | + + + | Preferred Language | Unknown | + + + | Marital Status | | + + + | Advent Affiliation | NON | + + + [...] Team Providers + +------+ + | Care Rail Operator Name | Role | Phone | [...] as of this encounter Procedure Notes Interface, Engineering Analyst In - 11/26/2005 3:[address] [address] [facility] OPERATION RECORD Med Rec No.: [id number] Date: 07/14/2002 Name: Carlos Burns ATTENDING SURGEON: Fozia Crawford M.D., Ph.D. SUPERVISOR BLOOMING MILL: Med Gu M.D. PREOPERATIVE DIAGNOSIS: Rhegmatogenous retinal [...] stable condition. Fozia Crawford M.D., Ph.D. JS:x54 [id number] signed by Renetta, Engineering Analyst In at 11/26/2005 3:10 VALENTINO Duong umented [...] | Transcriptions | + + | Interface, Engineering Analyst In - 11/26/2005 3:10 AM PDT | | [place] [address] | | [place], [place] [address] | | [facility] RECORDMed Rec No.: | | [id number] Date: 07/14/2002Name: Carlos Burns SURGEON: | | Fozia Crawford M.D., Ph.D.SUPERVISOR BLOOMING MILL: Med | | [place] Gu.PREOPERATIVE DIAGNOSIS:Rhegmatogenous retinal [...] | | Jun Crawford M.D., Ph.D.JS:x54D: 07/14/2002T: 07/16/[id number] | |attention was directed towards the right [...] | |JS:x54 | | | | | |[id number] | + + documented in this encounter Visit Diagnoses Not on filedocumented in this encounter"
--- OUTSIDE RECORDS SUMMARY | ~2020-02-16 | XMS | Encounter Summary ---
Demographics + + + | Address | [address] | | | [place] [address] | + + + | Home Phone [...] Team Providers + +------+ + | Care Physics Department Chair Name | Role | Phone | + [...] | | Medicine at Offsite | [address] [facility] | Insomnia; Weakness | | | | [address] [facility] [address] | [address] | | | | | [place], | [place], [place] | | | | | [place] [address] | [address] | | | | | [phone] | [phone] | | | | | | | [...]
--- OUTSIDE RECORDS SUMMARY | ~2020-02-16 | XMS | Encounter Summary ---
Demographics + + + | Address | [address] | | | [place] [address] | + + + | Home Phone | | + + + | Preferred Language | Unknown | + + + | Marital Status | | + + + | Sikh Affiliation | NON | + + + [...] Team Providers + +------+ + | Care Specialty Sales Representative Name | Role | Phone [...] | [address]ERNA[address] Figueroa | MD [address] | | | | | Herb Mailcode: [id number] | [place], | | | | | [place], [place] | [place] [address] | | | | | [address] | [phone] | | | | | [phone] | | | +--------+ + + + [...]
--- OUTSIDE RECORDS SUMMARY | ~2020-02-16 | XMS | Encounter Summary ---
Demographics + + + | Address | [address] | | | [place] [address] | + + + | Home Phone [...] Team Providers + +------+ + | Care Climatology Professor Name | Role | Phone | + [...] Constipated | | 2018 | | at [facility] | Dimas Pelayo MD | | | | | [address] | [address] | | | | | Loop Physician's | [place], | | | | | [place], [address] [place] [address] | [place] [address] | | | | | [place], [place] | [phone] | | | | | [address] | | | | | | [phone] | | | +--------+ + + + [...]
--- OUTSIDE RECORDS SUMMARY | ~2020-02-16 | XMS | Encounter Summary ---
Demographics + + + | Address | [address] | | | [place] [address] | + + + | Home Phone [...] Team Providers + +------+ + | Care Merchandise Planner Name | Role | Phone | + [...] Rd | | | | | | [place], [place] | | | | | | [address] | | | | | | [phone] | | | +--------+ + + + [...] istratively closed with the authorization of the [facility] Committee. documented in this encount er Plan of Treatment Not on filedocumented as of this encounter Visit Diagnoses Not on filedocumented in this encounter"
--- OUTSIDE RECORDS SUMMARY | ~2020-02-16 | XMS | Encounter Summary ---
Demographics + + + | Address | [address] | | | [place] [address] | + + + | Home Phone [...] Team Providers + +------+ + | Care Him Coder Name | Role | Phone | + [...] | | | | | [facility] | [address] | | | | | thiasis | [place] [address]rez | [place] | | | | | Procedures | [place] | [place], [address] | | | | | CONSULT TO | [place], [place] | floor | | | | | GI | [address] | [place], [place] | | | | | PROCEDURE: | Phone: | [phone] | | | | | ERCP / | [phone] | Phone: | | | | | BILIARY | Fax: | [phone] | | | | | MANOMETRY | [phone] | Fax: | | | | | | | [phone] | +--------+--------+ + + + + Encounter Details +--------+ + + + + | Date | Type | Department | Care Team | Description | +--------+ + + + + | 06/27/ | 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
--- OUTSIDE RECORDS SUMMARY | ~2020-02-16 | XMS | Encounter Summary ---
Demographics + + + | Address | [address] | | | [place] [address] | + + + | Home Phone | | + + + | Preferred Language | Unknown | + + + | Marital Status | | + + + | Shinto Affiliation | Unknown | + + + | Race | White | + + + | Ethnic Group | Not or | + + + Author + + + | Author | [facility] | | | and [place] | + + + | Organization | [facility] | | | [...] Team Providers + +------+ + | Care Dealer Sales Rep Name | Role | Phone | + +------+ + PCP | Unavailable | + +------+ + Encounter Details +--------+ + + + + | Date | Type | Department | Care Team | Description | +--------+ + + + + | 02/28/ | Hospital | [facility] | Waylon Licona, | INTERTROCHANTERIC | | 2002 - | Encounter | CENTER SURGICAL [address] | [facility]-CLOSE (HCC) | | [address] | [place] [address] | | | 03/05/ | | [place], [place] | [phone] | | | 2002 | | [address] | | | | | | [phone] | | | +--------+ + + + [...]
--- OUTSIDE RECORDS SUMMARY | ~2020-02-16 | XMS | Encounter Summary ---
Demographics + + + | Address | [address] | | | [place] [address] | + + + | Home Phone | | + + + | Preferred Language | Unknown | + + + | Marital Status | | + + + | Orthodoxy Affiliation | Unknown | + + + | Race | White | + + + | Ethnic Group | Not or | + + + Author + + + | Author | [facility] | | | and [place] | + + + | Organization | [facility] | [...] Providers + +------+ + | Care Bell Valet Name | Role | Phone | + [...] | | | | CENTER [address] | [place], [place] | complication, | | | | [place], [place] | [address] | initial encounter | | | | [address] | | (Primary Dx); Fall | | | | [phone] | | from slip, trip, or | [...] Care Everywhere.Laceration, Chi n, Suture or Tape (Cuban)documented in this encounter Medications at Time of [...] might be different fr om the original. [facility] Burns Emergency Department Encounter Note [address] [place] [address] PCP:SHAHEEN Toro ED15 CHIEF COMPLAINT: Chief Complaint [...] Past Medical History: Diagnosis Date Atrial fibrillation ([facility]) Backache Bronchitis Bundle branch block, right Calculus of bile duct with acute cholecystitis with obstruction Choledocholithiasis Chronic obstructive pulmonary disease (COPD) ([facility]) Crush injury lower extremities 1966 Left leg and foot Cutaneous abscess of chest wall Disease of sebaceous glands Diverticulosis Diverticulosis of colon Epidermal cyst Epigastric pain Esophageal ulcer with bleeding GERD (gastroesophageal reflux disease) Hip fracture ([facility]) 2003 Left Hyperlipidemia Inflamed seborrheic keratosis Inguinal [...] BACK SURGERY 1981 Lower back COLONOSCOPY 09/23/2013 [facility] ENDOSCOPY 08/10/2013 [facility] ERCP N/A 08/14/2017 Procedure: ERCP; Surgeon: Jamey Hdz MD; Location: [facility] HIP FRACTURE SURGERY [...] OTHER SURGICAL HISTORY Endobiliary stent placed at [facility] Removal of lesion Right 2009 Right hand [...] were reviewed along with EMS notes and alf record s if applicable. Medication and Allergy lists reviewed in [facility]. Nurses note and old record s were reviewed if available within [facility] ER course 18:11 - Patient care initiated. [...] Certified Why: If symptoms worsen Contact information: [address] [place] [address] New Prescriptions No medications on file Discontinued Medications No medications on file Discharge References/Attachments Laceration, Chin, Suture or Tape (Cuban) Portions of this chart may have been created with [employer] voice recognition software. Occasi onal wrong-word or [...] | | + +--------+ +---------+------+ + | [id number]-[id number] | Given | 02/18/20 | 0.5 mLs [...]
--- OUTSIDE RECORDS SUMMARY | ~2020-02-16 | XMS | Encounter Summary ---
Demographics + + + | Address | [address] | | | [place] [address] | + + + | Home Phone [...] Providers + +------+ + | Care Security Intern Name | Role | Phone | [...] | | 2018 | | Center at [facility] [address] | MD Rashida [address] [facility] | Received (07/16/2017- | | | | [facility] | [facility] | Current ED | | | | for Health and | [place], [place] | Admission Notes, | | | | [facility], [facility] 2 | [address] | Labs, Imaging | | | | [facility] [place] | [phone] | Reports and Surgery | | | | [address] | | Report with | | | | [phone] | | Pathology- St. | | | [...]
--- OUTSIDE RECORDS SUMMARY | ~2020-02-16 | XMS | Encounter Summary ---
Demographics + + + | Address | [address] | | | [place] [address] | + + + | Home Phone [...] Providers + +------+ + | Care Merchandise Flow Associate Name | Role | Phone | [...] | | | | | [place], | [place], [place] | | | | | [place] [address] | [address] | | | | | [phone] | [phone] | | | | | | | [...] PT other exercises he can practice, given fkd-fkgorf-kqzsdio status # Insomnia, sleep-onset - Sleep hygiene: [...] foll owing additions/clarifications/exceptions: none Crystal Evans MD [facility] Division of Internal Medicine and Geriatrics documented in this encounter Plan of Treatment Not on filedocumented as of this encounter Visit Diagnoses Not on filedocumented in this encounter
--- OUTSIDE RECORDS SUMMARY | ~2020-02-16 | XMS | Encounter Summary ---
Demographics + + + | Address | [address] | | | [place] [address] | + + + | Home Phone [...] Providers + +------+ + | Care Tractor Mechanic Name | Role | Phone | [...] Surgery | 6A Intra Op [address]181 | Rnee Mendoza | ERCP | | 2018 | | LUIS FERNANDO Figueroa | MD Rashida [address] | | | | | [facility] | [facility] | | | | | Hospital Admitting | [place], [place] | | | | | Desk Located on the | [address] | | | | | 9th floor | [phone] | | | | | [place], [place] | | | | | | [address] | | | +--------+---------+ + + + [...] might be differen t from the original. [facility] Discharge Summary Discharging Provider: VIRGIL SIDHU [...] and intubated prior to tra nsfer to [facility]. Workup was notable for RUQ U/S [...] Your Medications These medications were sent to [id number] [place] [address] [place] [address] Hours: 9AM-7PM MON - FRI / 9AM-6PM [...] Thank you for entrusting your care to [facility] Internal Medicine. If you have any problems or concerns before you are able to follow up with your Primary Care Provider, please call and ask the testboard operator to page the attending physician, Vic Petty MD, wh o was caring for you at discharge. If that physician is not available, ask the testboard operator to page the physician production machine computer operator for the Medical Teaching Service. Call us right away if any of the following occur: Recurrent abdominal pain Shaking chills or night sweats Other Discharge Orders and Instructions You will be called by the [facility] GI service within the next week to schedule a repeat appoint ment for ERCP and possible stent removal. Home Health Referral after Hospitalization Comments: I certify that this patient is under my care and that I, or Nurse Practitioner or Physician Gericare Aide working with me, had a face to face encounter with this patient on 06/30/2017 On behalf of Attending Physician: Vic Petty MD I am ordering and certify that the following services are medically necessary home health [facility] Home Health Physical Therapy Evaluate and Treat I certify that the patient is homebound based on the following clinical findings Post-hospi tono weakness, decreased strength and endurance, and tires easily with minimal exertion Follow Up: Schedule the following appointment(s) when you get home DARYL MARCH MD . Specialty: Internal Medicine Contact information [facility] [address] [place] [address] Discharge Physical Exam: Last 24 hour min/max [...] PhD Clinical Hospitalist and Medicine Teaching Services [facility] Pager [phone] I have spent 35 minutes with the [...] might be different from bella landin. PHYSICIAN SEARCH SPECIALIST STUDENT PROGRESS NOTE FOR EDUCATIONAL PURPOSES [...] Q2H PRN ipratropium-albuterol 3 mL Q6H PRN yiglprxz-gdquasl-yazxhcmt-zinc QID PRN oxyCODONE (immediate release) 2.5-5 mg [...] IV/Airways/Catheters: PIV Code status: FULL SHAHEEN [facility]nell[facility] Physician Gericare Aide Program 06/29/17 Kang Zhang MD - 06/29/2017 [...] List: Active Hospital Problems 1) *Septic shock ([facility]) 2) Choledocholithiasis 3) Acute cholangitis 4) Klebsiella sepsis ([facility]) 5) Aspiration pneumonitis ([facility]) 6) S/P ERCP 7) COPD (chronic obstructive pulmonary disease) ([facility]) 8) Essential hypertension 82 year-old man with HTN, COPD not on supplemental oxygen, who presented to OSH with epigas tric pain and abnormal LFTs, admitted for septic shock due to acute cholangitis and acute hy poxic respiratory failure due to aspiration requiring intubation, transferred to [facility] MICU. Here found to have klebsiella [...] and Medicine Teaching Services [facility] Pager [phone] I have spent 26 minutes with the [...] interval not displayed. Micro: BLOOD CULTURE WORKUP [[id number]] (Abnormal) KP LAB Collected: 06/26/17 0939 Lab [...] List: Active Hospital Problems 1) *Septic shock ([facility]) 2) Choledocholithiasis 3) Acute cholangitis 4) Klebsiella sepsis ([facility]) 5) Aspiration pneumonitis ([facility]) 6) S/P ERCP 7) COPD (chronic obstructive pulmonary disease) ([facility]) 8) Essential hypertension Resolved Hospital Problems 9) Septic shock ([facility]) 10) Non-ST elevation myocardial infarction (NSTEMI), type 2 ([facility]) 11) Acute respiratory failure with hypoxia ([facility]) Assessment: Lilian Hurst is a 82 y.o. [...] Primary Surrogate Decision Maker Sharon Rodriguez Daughter [phone] Dimas Xavier MD Internal Medicine, PGY-3 #[id number] Louis Hernandez MD - 06/28/2017 2:26 PM [...] management as outpatient (pt prefers facility near [place]) --> if develops post ERCP complications or [...] powell - 06/28/2017 7:47 AM PST PHYSICIAN SEARCH SPECIALIST STUDENT PROGRESS NOTE FOR EDUCATIONAL PURPOSES [...] Q2H PRN ipratropium-albuterol 3 mL Q6H PRN ndkqmfvv-vjunrrp-zfqsgoli-zinc QID PRN oxyCODONE (immediate release) 2.5-5 mg [...] on klebsiella cultures for sensitivity. Spoke with Workers Compensation Coordinator at [employer] @1330, N o sensitivity results yet from [...] IV/Airways/Catheters: PIV Code status: FULL SHAHEEN Oconnell-S [facility] Physician Gericare Aide Program 06/28/17 Alisha Rai M D - [...] 86 87 78 HCO3 22 24 23 [id number] 24 25 24 R8NUJYNN 96.4 97.0 96.8 FIO2 0.80 0.25 0.21 [...] in the patient's condition). ALISHA LAGUNAS MD [facility] [address] [place] [phone] Camilo Amaya MD - 11/2017 6:00 AM PST [facility] MEDICAL ICU - PROGRESS NOTE Hospital [...] 6.5 mL/Kg (459.6 mL) RR: 22 bpm [place] BW: 70.7 kg FiO2 21 fraction of [...] 87 78 HCO3 -- 22 24 23 VJD1UEJ0 -- 108* 348 371 VBGPH 7.27* -- [...] 3.375 g i ntravenous Q8H Stopped (06/27/17 5331) Current Facility-Administered Medications Medication Dose Route Frequency [...] Primary Surrogate Decision Maker Sharon Rodriguez Daughter [phone] This patient was staffed with Dr. Lagunas, [...] duct clearance Rene Mendoza MD Gastroenterology Pager [phone] - Virginia Cerna MD - 06/26/2017 4:38 PM PSTFormatting of this note might be different from the origi nal. PRE PROCEDURE NOTE: MR# [id number] Subjective: Lilian Hurst is a 82 y.o. [...] hours. Concern for choledocholithiasis. Transferred t o [facility] this morning. Has history of COPD [...] results for input(s): PH, PCO2, PO2, HCO3, FTHYI3QPX, Q1IJECKO, C5TXKAEGE, FIO2 in the l ast 72 hours. [...] in the patient's condition). ALISHA LAGUNAS MD [facility] [address] [place] [phone] documented in this enco unter H&P Notes [...] intubated and placed on pressors, transferred to [facility] MICU directly . In MICU, GI was consulted who performed ERCP with sphincterotomy with several CBD stones an d sludge removal yesterday + stent placement. He was also placed on zosyn for emperic antib iotic coverage. He was found to have gram-positive and klebsiella bacteremia.He was readily extubated and remains on 1-2L of NC. On seqh-cm-jzit evaluation on general medicine floor, he reports [...] None /hpf Imaging Interpretation: No US in [facility] system Summary Patient is an 82 [...] management as outpatient (pt prefers facility near [place]) --If febrile, order new bcx --If hypotensive/concern [...] due to aspiration requiring intubation, transferred to [facility] MICU. Here found to have klebsiella [...] PhD Clinical Hospitalist and Medicine Teaching Services [facility] Pager [phone] I spent more than 70 minutes bmfj-sn-gbti with the patient of which greater than 50% was sp ent counseling the patient on acute cholangitis, abdominal pain, klebsiella bacteremia and i n coordination of care. Dianna Dodson MD - 06/26/2017 6:46 AM PSTFormatting of this note might be different from t he original. [facility] MEDICAL ICU - HISTORY & PHYSICAL [...] was then intubated a nd transported to [facility]. On route here, had hypotension with [...] Ventilation Vex: Mandatory 580 ml | Spontaneous [place] BW: 70.7 kg RR: 18 bpm Minute [...] -- 86 87 HCO3 -- 22 24 VHW9SYC4 -- 108* 348 VBGPH 7.27* -- -- [...] housestaff assessment and plan. ALISHA LAGUNAS MD [facility] [address] [place] [phone] documented in this encounter Procedure Notes Reid [...] pause veri fies correct patient, procedure, equipment, field support technician and site/side marked as required. CLABSI Prevention [...] A pause verifies correct patient, procedure, equipment, field support technician and site/side marked as requir ed. CLABSI [...] Ultrasound Guidance. The modified Seldinger technique (a mazamssj-qcqq-guw-hewfrt-jfoh-nmnt-frhwqut-idp-jaadfjij ) was used for vessel cannulation. The [...] currently going to Dr. Geovanni Hylton in [place], [place] for primary care. Allergies: Allergies Allergen [...] acute cholangitis at the MICU. Pharmacy Preferences: [id number] [place], [place] Fax: Source of Medication Information: Patient and Pharmacy Reliability: Reliable The above changes will be reviewed with the supervising pharmacist. The patient s prior t o admission medication list will be updated accordingly. A total of 20 minutes were spent on this activity. All questions concerning medications, in cluding OTC and herbal products, were addressed. For questions regarding this information contact Dleon Avitia Candidate Class of 2018 Pager # [phone] Associated attestation - Alisa Flores PharmD - 06/28/2017 1:48 PM PSTI have reviewed an d agree with the pharmacy operations manager's documentation and have documented any additions or excep tions. Medication doses updated per pharmacy records and patient report. Refuses inhalers, b ut has been using Duonebs at home. Alisa Flores PharmD, [facility] Pager [phone] Cassy Patricio MD - 06/27/2017 8:14 AM [...] Cassy Patricio MD Internal Medicine PGY2 Pager #[phone] INTERVAL HISTORY: - ERCP with choledocholithiasis, stones [...] for ICU patient with acute cholangitis. The compensation supervisor film was normal. The esophagus was successfully [...] note for further details. Paulette Mckenzie MD Transplant Rnholistic nutritionist Department of Gastroenterology [facility] DEPARTMENT: GI - [phone] Place of Service: [facility] CSN: [id number] Suggested Modifiers: GC - Resident Involved Suggested Level of Care: 32007 (<15 minutes) Brian Martino Md - 06/26/2017 [...] and was then intubated and transported to [facility]. Du ring transfer he had hypotension [...] beta blockers while bradycardic Brian Martino MD Ribbon Blockmaker [facility] Cardiovascular [facility] Pager [phone] Associated attestation - Franko Garcia MD - [...] SVT appears. Franko Garcia M.D. Director, Electrophysiology Electronic Health Records Specialistchange management [place] [address] Cassy Patricio MD - 06/26/2017 9:21 AM [...] Cassy Patricio MD Internal Medicine PGY2 Pager #[phone] HISTORY OF PRESENT ILLNESS Lilian Hurst is [...] and ultimately intubation prior to transfer to [facility]. In the MICU: On arrival, pt [...] note for further details. Paulette Mckenzie MD Transplant Rnholistic nutritionist Department of Gastroenterology [facility] DEPARTMENT: - [phone] Place of Service: [address] [place] [address] CSN: [id number] Suggested Modifiers: GC - Resident Involved Suggested Level of Care: [id number] (<15 minutes) documented in this encounter Miscellaneous [...] none specified at this time (06/28/17 1630) [facility] IP NURSE HANDOFF: [facility] hospital course events: Grant is a 82 y.o. man admitted to the [facility] for Klebsiella oxytoca septic shock likely secondary [...] to Target: Improving As evidenced by: - kAi has been using his urinal but if [...] none specified at this time (06/28/17 1630) [facility] IP NURSE HANDOFF: [facility] hospital course events: Grant is a 82 y.o. man admitted to the [facility] for septic shock likely secondary to acute cholangitis. 06/26: Tx to 7A MICU, ERCP done, pressor needs, SVT --> junctional rhythm, inocente, and pauses (cards consulted) 2: extubated to 2 liters nasal canula. NSR. SAFETY Patient/Family Target: Aki will maintain hemodynamic stability Progress to Target: Improving As evidenced by: - Per MD note, Aki was admitted to [facility] with septic shock and severe hypotension. [...] from t sarath original. Physical Therapy Evaluation [id number] LILIAN HURST Date of : 1935 Start of care: 06/29/2017 Attending Practitioner: Vic Petty MD Primary/Referral Diagnosis/ICD-9: K80.50 Choledocholithiasis R06.00 Dyspnea, unspecified type Insurance: Payor: [facility] MED[facility] / Plan: [facility] MEDICARE HMO / Product Type: Medicare / [...] (hypertension) Normocytic anemia Prediabetes SVT (supraventricular tachycardia) ([facility]) Past Surgical History: Procedure Laterality Date ANKLE SURGERY BACK SURGERY 1981 RIGHT KNEE SURGERY TREATMENT OF FRACTURE OF LOWER LEG Living Environment: Patient lives alone in a one story house with 0 steps to enter. Bathroom Set-up: walk in shower; shower chair, no grab bars Prior Level of Function: Mobility: Independent Equipment at home: None Patient / Family Goal: To go home Communication/Barriers: Albanian Subjective: Pt agreeable to working with PT [...] but no loss of balance Outcome Measure: [facility] BASIC MOBILITY Difficulty turning over in [...] A Little - Minimal/Contact Guard Assist/Superv ision [facility] Basic Mobility Total Score 22 Interpretation of [facility] Short Form - Basic Mobility: CMS [...] Consulted with: RN re: recommendations PLAN: Pt education/transitional care nurse training, HEP, transfer training, gait training, stairs/curb [...] a few days ago, currently eating breakfast (st helenian muffin, scramble d egg, slice of ham). [...] - Continue on regular diet. Texture/consistency per MARINATOR. - Continue to encourage po intake to [...] will follow up. Following, Sachi Greer M.S. Rubber Printing Machine Operator Pgr#[phone] Kiah Beaulieu, MPH, RD, CNSC, LD Pager: [phone] For details, please see dietitian note from 06/28. andoff - Ira Decker RN - 06/29/2017 2:48 AM PSTNursing Omar timmons Patient Daily Goal: "I need my pain well controlled tonight" (06/28/171999) Patient Specific Preferences: none specified at this time (06/28/17 1630) [facility] IP NURSE HANDOFF: [facility] hospital course events: Grant is a 82 y.o. man admitted to the [facility] for septic shock likely secondary to acute cholangitis. 06/26: Tx to 7A MICU, ERCP done, pressor needs, SVT --> junctional rhythm, inocente, and pauses (cards consulted) 06/27: extubated to 2 liters nasal canula. NSR. SAFETY Patient/Family Target: Aki will maintain hemodynamic stability Progress to Target: Improving As evidenced by: - Per MD note, Aki was admitted to [facility] with septic shock and severe hypotension. [...] procedure - IV antibiotics -Possible consult at [facility] [place] for right eyelid problem. andoff - Nyla Cano RN - 06/28/2017 3:13 PM PSTNursing Handoff Patient Daily Goal: To breath better and be able to sleep tonight (06/27/171955) [facility] IP NURSE HANDOFF: [facility] hospital course events: Grant is a 82 y.o. man admitted to the [facility] for septic shock likely secondary to acute cholangitis. 2: Tx to 7A MICU, ERCP done, pressor needs, SVT --> junctional rhythm, inocente, and pauses (cards consulted) 2: extubated to 2 liters nasal canula. NSR. SAFETY Patient/Family Target: Aki will maintain hemodynamic stability Progress to Target: Improving As evidenced by: - Per MD note, Aki was admitted to [facility] with septic shock and severe hypotension. [...] upper medial. Got an order for simethecone, [employer] tech told pt they saw a lot [...] when appropriate to meet needs - Add Lyons Meche's probiotic yogurt when no longer NPO- one 8oz. Container split into 3x per day - Add Vitamin D3 @ 50,000 units/wk for 6-8 weeks. Recheck Vit D 25 hydroxy, if levels are > 25 ng, switch to Vitamin D3 @ 2000 units per day - Continue to monitor ion Ca, replete prn Following, Sachi Greer M.S. Rubber Printing Machine Operator pgr#[phone] Kiah Beaulieu, MPH, RD, CNSC, LD Pager: [phone] Comments: Admitting Dx: Lilian Hurst is a [...] pt report Estimated Nutrition Needs (84.1kg, COPD): 9074-8533 kcals (25-30 kcal/kg), 101-126 gm prote in (1.2-1.5 gm/kg) lan of Care - Nelli Le [facility] [place]-MARINATOR - 06/28/2017 10:17 AM PSTFormatting of this note might be different from carey original. Speech Language Pathology - DYSPHAGIA Evaluation [id number] LILIAN HURST Date of : 1935 Referring/Attending [...] PLOF: Patient with history of COPD and BRASS SORTER was concerning for aspiration pneumonitis vs PNA [...] liquids with univ ersal aspiration precautions. Problem: MARINATOR Goals- Adult Goal: Dysphagia Goal Outcome: Goal [...] status, increased temp) DISCHARGE RECOMMENDATIONS: No further MARINATOR needs Plan: No indication for further MARINATOR therapy at this time. MARINATOR team signing off. Please re order as appropriate. Thank you for this consult. Nelli Le MS CCC-MARINATOR Speech Language Pathologist Pgr [phone] andoff - Brittney Bautista RN - 06/27/2017 10:33 PM PSTNursing Handoff Patient Daily Goal: To breath better and be able to sleep tonight (06/27/171955) [facility] IP NURSE HANDOFF: [facility] hospital course events: Grant is a 82 y.o. man admitted to the [facility] for septic shock likely secondary to acute cholangitis. 2: Tx to 7A MICU, ERCP done, pressor needs, SVT --> junctional rhythm, inocente, and pauses (cards consulted) 06/27: extubated to 2 liters nasal canula. NSR. SAFETY Patient/Family Target: Aki will maintain hemodynamic stability Progress to Target: Improving As evidenced by: - Per MD note, Aki was admitted to [facility] with septic shock and severe hypotension. [...] and increase PO intake (0 06/27/17 1720) [facility] IP NURSE HANDOFF: [facility] hospital course events: Grant is a 82 y.o. man admitted to the [facility] for septic shock likely secondary to acute cholangitis. 26: Tx to 7A MICU, ERCP done, pressor needs, SVT --> junctional rhythm, inocente, and pauses (cards consulted) 06/27: extubated to 2 liters nasal canula. NSR. SAFETY Patient/Family Target: Aki will maintain hemodynamic stability Progress to Target: Improving As evidenced by: - Per MD note, Aki was admitted to [facility] with septic shock and severe hypotension. [...] Goal: to use the bathroom (06/27/17 0900) [facility] IP NURSE HANDOFF: [facility] hospital course events: Grant is a 82 y.o. man admitted to the [facility] for septic shock likely secondary to acute [...] Oswaldo Dodson MD - 06/27/2017 1:30 PM [facility] MEDICAL ICU - TRANSFER SUMMARY Hospital [...] a 82 y.o. man admitted to the [facility] for septic shock likely secondary to acute [...] 06/26/2017 PO2 78 06/26/2017 HCO3 23 06/26/2017 Z2HQHZEE 96.8 06/26/2017 FIO2 0.21 06/26/2017 [id number] 371 06/26/2017 UPZ3DWI6 348 06/26/2017 QKX7FXC5 108 (L) 06/26/2017 P/F ratio: Improving/worsening Today [...] Based on this assessment Adult Bronchodilator Protocol. [facility] Lela Apodaca - 06/26/2017 8:22 AM PSTAMR 639/FF 82 yom, sepsis. Pt on vent, tolerating well. Sedaition is off due to hypotension. Pt on lev ophed, sent pt into SVT. Resolved with fluid. HR 160, 108 SPB, Et CO2 35, Sat 98%. ETA [address] [facility] Olga Cohen - 06/26/2017 6:42 AM PSTPer [facility] dispatch. LF[facility] [place] [facility] [place] at 0730. ETA [phone] to arrive at [facility] Abisai Brewer - 06/26/2017 4:17 AM PSTgrp [address] [facility] Abisai Brewer - 06/26/2017 4:13 AM [...] by Abisai Whipple at 8 4:[address] [facility] - Hailey Apodaca RN - 06/26/2017 3:45 AM [facility] Transfer Center load manager: Demographics: Lilian Hurst, 82 y.o., male Chief Complaint: Coleocystitis, common bile duct obstruction. Impending respiratory failure . Expectation of care: Management of above: Interventions performed: VS: At presentation to ED temp 102. 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 Currently HR and RR increasing. O2 increased to 6L currently. Satting in low 90s, will probably intubate soon as is having increasing distress Pertinent Labs: Labs sent Diagnostics: and ultrasound done Requested Service Line: MICU Connected to: [facility] at capacity: No DECISION: TCRN spoke with Md. Heath. Amenable to transfer to [facility]. Attempted to place at [facility]. No beds available 2/2 staffing. Returned call to [facility] TC TRANSPORTION: [facility] Abisai Brewer - 06/26/2017 3:45 AM PST3:42 AM 06/26/2017 Dr. Heath, [facility], PT: GrantAki : 1935 MICU, DR. Mrianda hanna hale in this encounter Plan of [...] | + +--------+ + + + | NB-GA-SDT-HB,POC RT | Urgent | 06/26/2017 | | [...] + + + | ECG | Short [place] interval | | [facility] | | [...] + | [facility] | [address] | [place], [place] | | | CARDIOLOGY | [address] | [address] | | + + + + + [...] | + + + + + | [facility] | [address] | [place] [address] | | | [place], [place] | PARK [...] LABORATORY | [address] | [place] [address] | | | SERVICES, CORE | PARK [...] | | | LABORATORY | | | GUYANESE | | | SERVICES, | | | [...] [facility] | [address] | [place] [address] | | | SERVICES, CORE | PARK [...] | + + + + + | [facility] | [address] | [place] [address] | | | SERVICES, CORE | RICHARD [...] | [address] | [place], [place] | | | YUE POINT OF CARE | [address] | [address] | | | TESTS | | | [...] [facility] | [address] | [place] [address] | | | SERVICES, CORE | PARK [...] | + + + + + | [facility] | [address] | [place] [address] | | | SERVICES, CORE | PARK [...] | | | LABORATORY | | | GUYANESE | | | SERVICES, | | | [...] + + | Performing | Address | City/State/[facility] | Phone Number | | Organization | | | | + + + + + | [facility] | [address] | [place] [address] | | | SERVICES, [facility] | [address] | | | + [...] + + | [facility] | [address] | [place] [address] | | | [place] RUIZ | RICHARD [...] | [address] | [place], [place] | | | HILL, POINT OF CARE | [address] | [address] | | | TESTS | | | [...] Note | + + | Service Account, [employer] Res In Interface - 06/28/2017 10:17 [...] [facility] | [address] | [place], [place] | | | DILAN TURNER OF CARE | [facility] | [address] | | | TESTS | | | [...] (H) | 70 - 99 mg/dL | [facility] - | | | GLUCOSE, | [...] | [address] | [place], [place] | | | DILAN TURNER OF [facility] | [facility] | [address] | | | TESTS | | | [...] | | | LABORATORY | | | GUYANESE | | | SERVICES, | | | [...] + + | [facility] | [address] [facility] | [place] [address] | | | SERVICES, CORE | PARK [...] | [address] | [place] [address] | | | SERVICES, CORE | PARK [...] [facility] | [address] | [place] [address] | | | SERVICES, CORE | [address] | | | + + + + + CULTURE, BLOOD BACTI & YEAST [facility] (06/27/2017 8:34 AM PST) + + [...] | + + + + + | [facility] | [address] | [place] [address] | | | SERVICES, CORE | [address] | | | + + + + + CULTURE, BLOOD BACTI & YEAST [facility] (06/27/2017 8:16 AM PST) + + [...] | + + + + + | [facility] | [address] | [place] [address] | | | SERVICES, CORE | PARK [...] - [place] | [address] | [place], [place] | | | YUE POINT OF CARE | [address] | [address] | | | TESTS | | | [...] | + + + + + | [facility] | [address] | [place] [address] | | | SERVICES, YOKASTA | [address] [...] [facility] | | | GRAVITY | Specific [place] | | LABORATORY | | | | [...] + + | [facility] | [address] | [place] [address] | | | SERVICES, CORE | [address] | | | + + + + + ERCP (06/27/2017 6:38 AM PST) + + | Specimen | + + | | + + + + + | Narrative | Performed At | + + + | MRN: | [facility] | | [id number] Date: 06/27/2017Patient Name: Lilian Nair #: | ENDOSCOPY | | [id number] of : 1935SN: [id number] Type: | | | InpatientRoom: SORProcedure: ERCPIndications: | | | For therapy of ascending cholangitis; 82 yo M with | | | sepsis, elevated LFTs and US showing mary dil and 1.3 cm | | | CBDProviders: RENE | | | Thompson MENDOZA MD (Doctor), JORDY SOLANO, | | | RN (Nurse), ESTELA DAMIAN RN (Haulpak Driver)Referring MD: | | | Requesting Provider: Medicines: [...] The | | | Olympus TJF-Q180V Duodenoscope #[id number] was | | | introduced through the [...] with acute | | | cholangitis. The compensation supervisor film was normal. The esophagus was | [...] Initiated On: | | | 06/27/2017 6:38 [facility] Letter to: DARYL MARCH MD | | |06/27/2017 6:48:17 AM | | |Number of Addenda: 0 | | |Note Initiated On: 06/27/2017 6:38 AM | | | Letter to: | | | DARYL MARCH MD | | + + + + +---------+ + + | Performing | Address | City/State[facility] | Phone Number | | Organization | | | | + +---------+ + + | [facility] | | | | + +---------+ + + IP ENDOSCOPY AFTERHOURS (06/27/2017 6:38 AM PST) + + | Specimen | + + | | + + + + + | Narrative | Performed At | + + + | MRN: | [facility] | | [id number] Date: 06/27/2017Patient Name: Lilian Nair #: | ENDOSCOPY | | [id number] of : 1935SN: [id number] Type: | | | InpatientRoom: SORProcedure: ERCPIndications: | | | For therapy of ascending cholangitis; 82 yo M with | | | sepsis, elevated LFTs and US showing mary dil and 1.3 cm | | | CBDProviders: BRINTHA | | | Thompson MENDOZA MD (Doctor), JORDY SOLANO, | | | RN (Nurse), ESTELA DAMIAN RN (Haulpak Driver)Referring MD: | | | Requesting Provider: Medicines: [...] The | | | Olympus TJF-Q180V Duodenoscope #[id number] was | | | introduced through the [...] with acute | | | cholangitis. The compensation supervisor film was normal. The esophagus was | [...] Initiated On: 06/27/2017 | | | 6:38 [facility] Letter to: DARYL MARCH MD [...] | + + + + + | [facility] | [address] | [place] [address] | | | SERVICES, CORE | [address] [...] | + + + + + | [employer] | [address] | [place] [address] | | | SERVICES, CORE | PARK [...] [facility] | [address] | [place] [address] | | | SERVICES, CORE | PARK [...] | | | LABORATORY | | | GUYANESE | | | SERVICES, | | | [...] | + + + + + | [facility] | [address] | [place] [address] | | | SERVICES, CORE | [address] [...] + + | ECG | Borderline prolonged [place] | | [facility] | | | [...] + | [facility] | [address] [facility] | [place], [place] | | | CARDIOLOGY | [address] | [address] | | + + + + + [...] LABORATORY | [address] | [place] [address] | | | SERVICES, CORE | PARK [...] + | [facility] | [address] [facility] [address] | [place], [place] | | | YUE POINT OF [facility] | [address] | [address] | | | TESTS | | | [...] Note | + + | Service Account, [employer] Res In Interface - 06/27/2017 9:07 [...] [facility] | [address] | [place], [place] | | | DILAN TURNER OF [place] | [address] | [address] | | | TESTS | | | [...] | [address] | [place], [place] | | | CARDIOLOGY | [address] | [address] | | + + + + + [...] correct patient, procedure, | | | equipment, field support technician and site/side marked as required. [...] | | | | | | Pathology ResidentCanastota | | | | | | Louis [...] number | | | | | | [id number]. Bile duct, | | | | | [...] | + + + + + | [facility] | [address] [facility] | [place] [address] | | | PATHOLOGY | [address] [...] correct patient, | | | procedure, equipment, field support technician and site/side marked as required. [...] modified Seldinger technique (a | | | srlxsfll-eqda-qmg-glirul-bcaz-ysul-kmyxrlv-uus-dxfvsepl) was used for | | | vessel [...] | + + + + + | [facility] | [address] [facility] | [place] [address] | | | SERVICES, CORE | [address] [...] [facility] | [address] | [place] [address] | | | SERVICES, CORE | PARK [...] | + + + + + | [facility] | [address] | [place] [address] | | | SERVICES, CORE | PARK [...] | + + + + + | [facility] | [address] [facility] | [place] [address] | | | SERVICES, CORE | [address] [...] | | | LABORATORY | | | GUYANESE | | | SERVICES, | | | [...] | + + + + + | [facility] [employer] | [address] [facility] | [place] [address] | | | SERVICES, YOKASTA | RICHARD [...] | [address] | [place], [place] | | | CARDIOLOGY | [address] | [address] | | + + + + + [...] LABORATORY | [address] | [place] [address] | | | SERVICES, CORE | PARK [...] | + + + + + | [facility] | [address] | [place] [address] | | | YOKASTA RUIZ | [address] [...] LABORATORY | [address] | [place] [address] | | | YOKASTA RUIZ | [address] [...] Note | + + | Service Account, [employer] Res In Interface - 06/26/2017 12:57 [...] | + + + + + | [employer] [facility] | [address] | [place] [address] | | | SERVICES, CORE | [address] [...] Note | + ----+ | Service Account, [employer] Res In Interface - 06/26/2017 12:57 [...] Note | + + | Service Account, [employer] Res In Interface - 06/26/2017 10:12 [...] | + + + + + | [employer] | [address] | [place] [address] | | | SERVICES, | [address] [...] | [address] | [place] [address] | | | SERVICES, | [address] [...] | + + + + + | [facility] | [address] | [place] [address] | | | SERVICES, | [address] [...] + + + | ECG | Prolonged [place] interval | | [facility] | | [...] | [address] | [place], [place] | | | CARDIOLOGY | [address] | [address] | | + + + + + [...] | | | | | | [place] | | + + + + + [...] + | [facility] - | [address] | [place] [address] | | | [place] | | | [...] | + + + + + | [facility] - | [address] | [place] [address] | | | [place] | | | | + + + [...] | + + + + + | [facility] | [address] | [place] [address] | | | SERVICES, CORE | [address] [...] + + | [facility] | [address] [facility] | [place] [address] | | | SERVICES, CORE | P[address] [...] + + + + + | [facility] | [address] [facility] | [place] [address] | | | SERVICES, CORE | [address] [...] LABORATORY | [address] | [place] [address] | | | SERVICES, CORE | PARK [...] | [address] | [place] [address] | | | SERVICES, CORE | PARK [...] | + + + + + | [facility] | [address] | [place] [address] | | | SERVICES, CORE | [address] | | | + + + + + MAGNESIUM, PLASMA (06/26/2017 9:30 AM PST) + +-------+ + + + | Component | Value | Ref Range | Performed | Pathologist | | | | | At | Signature | + +-------+ + + + | MAGNESIUM,P | 1.8 | 1.6 - 2.6 mg/dL | [facility] | | | LASMA | | [...] LABORATORY | [address] | [place] [address] | | | SERVICES, CORE | [address]ICH[address] [...] | | | LABORATORY | | | GUYANESE | | | SERVICES, | | | [...] | [address] | [place] [address] | | | SERVICES, CORE | PARK [...] | + + + + + | [facility] | [address] | [place] [address] | | | SERVICES, CORE | [address] | | | + + + + + ZB-DG-VJK-HB,POC RT (06/26/2017 8:55 AM PST) + + [...] | [address] | [place], [place] | | | YUE POINT OF CARE | [address] | [address] | | | TESTS | | | [...] 8:06 | | | | | on [facility] 06/28/17 at 0900, Until | | AM [...]
--- OUTSIDE RECORDS SUMMARY | ~2020-02-16 | XMS | Encounter Summary ---
Demographics + + + | Address | [address] | | | [place] [address] | + + + | Home Phone [...] + + + | Author | [facility] | | | and [place] | + + + | Organization | [facility] | | | and [...] Providers + +------+ + | Care Assistant Store Manager Operations Name | Role | Phone | + [...] | | | | | | | IA ERCP DX | | | | | | | COLLECTION | | | | | | | SPECIMEN | | | | | | | BRUSHING/WAS | | | | | | | JOSE [place] | | | | | | | ERCP | | | | | | | BILIARY/PANC | | | | | | | DUCT STENT | | | | | | | EXCHANGE | | | | | | | W/DIL&WIRE | | | | | | | [place] | | | | | | | [...] [address] [place] | | | | | [place], [place] | [place] [address] | | | | | [address] | [phone] | | | | | [phone] | | | +--------+---------+ + + + [...] ascending cholangitis and sepsis, treated at [facility]. Had ERCP with sphin cterotomy, stone extraction, and stent placement on 06/26/17. He underwent cholecystectomy in [place] and on the IOC there were possible [...] BACK SURGERY 1981 Lower back COLONOSCOPY 09/23/2013 [facility] ENDOSCOPY 08/10/2013 [facility] HIP FRACTURE SURGERY Left 2002 Pinning. [...] [facility] Removal of lesion Right 2009 Right [...] Class 2 (upper half of tonsil fossa) [place] Society of Anesthesia Grade:ASA 2 - A [...] Electronically Signed by: Jamey Penny MD 08/14/2017 [facility] VERIFICATION OF CONSENT (PARQ) The patient was counseled regarding the procedure, its indications, risks, potential compli cations and alternatives. Any questions were answered. Consent was obtained. Jamey Penny MD, 08/14/2017 12:59 [facility] Portions of this chart may have been created with AdExtent voice recognition software. Occasi onal wrong-word or [...] INSTRUCTIONS Patient: William Burns : 1935 Acct: [id number] Exam Date: Monday, August 14, 2017 Doctor: [...] 1 day. Avoiding fatty foods such as Mongolian Car[place], hamburgers, kirkland, ham and pork products, will [...] 08/14/2017 | [facility] | | 12:57 PMMRN: [id number] #: [id number] of : | | | 1935dm Type: AmbulatoryAge: 82Room: [facility] 02Gender: MaleNote | | | Status: FinalizedAttending MD: [facility]ENNY [facility] | | | ERCPIndications: Bile duct stone(s), Biliary stent | | | removalProviders: JAMEY PENNY MD, Kiah Orozco, | | | RN, Klaus Loco CMA, Vani Wisdom, | | | Pressure Welder, Yinka Dominguez MD | | | (Anesthesia [...] the procedure well.Findings: A | | | ultrasound technologist film of the abdomen was obtained. Surgical [...] | | was it seen on the ultrasound technologist image. - Several filling defects | | [...] PMScope Out: | | | 1:58:46 PM [facility], [address] [place] [address], | | | [place] [address] | | | - KUB today to [...] |Scope Out: 1:58:46 PM | | | [facility], [facility], [place], [place] | | | [address] | | + + -+ + +---------+ [...] | | | Anticoagulation Range: | | [facility] | | | | 2.0 [...] [address] | [place] | [phone] | | [facility] | | [address] | | | - LABORATORY | | [...] 108 | 70 - 109 mg/dL | [facility] | | | | | [facility] | | [facility] | [facility] | | | | | | CENTER - | | | | | | LABORATORY | | + + + + + + | BUN | 13 | 7 - 18 mg/dL | [facility] | | | | | [facility] | | | | | [facility]ICAL | | | | | | CENTER - | | | | | | LABORATORY | | + + + + + + | Creatinine | 0.85 | 0.60 - 1.30 | [facility] | | | | | mg/dL | [facility] | | | | | | MEDICAL | | | | | | CENTER - | | | | | | LABORATORY | | + + + + + + | eGFR, | >60Comment: GLOMERULAR | >=60 | [facility] | | | non- | FILTRATION | mL/min/1.73m2 | [facility] | | | [place] | RATE,ESTIMATED | | MEDICAL | | | | mL/min/1.26l6Mmtz than | | CENTER - | | [...] [address] | [place] | [phone] | | [facility] | | [address] | | | - LABORATORY | | [...] + | [facility] [facility] | [address] | [place], [place] | [phone] | | [facility] | | [address] | | | - LABORATORY | | [...]
--- OUTSIDE RECORDS SUMMARY | ~2020-02-16 | XMS | Encounter Summary ---
Demographics + + + | Address | [address] | | | [place] [address] | + + + | Home Phone [...] Providers + +------+ + | Care Special Agent Secret Service Name | Role | Phone | + [...] as of this encounter Procedure Notes Interface, Cold Type Artist In - 11/26/2005 3:[address] [address] [facility] OPERATION RECORD Med Rec No.: [id number] [...] was patched. Fozia Crawford M.D., PhD JTS:X44 [id number] signed by Cristal Jackson In at 11/26/2005 3:10 AM [facility]ed in this encounter Plan of [...] | Transcriptions | + + | Interface, Cold Type Artist In - 11/26/2005 3:10 AM PDT | | [facility] [address] | | [place], [place] [address] | | [facility] RECORDMed Rec No.: | | [id number] [...] waspatched.Fozia Crawford M.D., PhDJTS:X44D: 06/19/2002T: | | 06/20/[id number] | |lid speculum was placed. Slit light [...] | |JTS:X44 | | | | | |[id number] | + + documented in this encounter Visit Diagnoses Not on filedocumented in this encounter"
--- OUTSIDE RECORDS SUMMARY | ~2020-02-16 | XMS | Encounter Summary ---
Demographics + + + | Address | [address] | | | [place] [address] | + + + | Home Phone [...] | | | [place], | [place] [address] | | | | | [place] [address] | [phone] | | | | | [phone] | | | +--------+ + + + [...] Annabella Gallardo DO PGY-1 | Internal Medicine [id number] signed by Annabella Gallardo DO at 06/18/2018 4:29 PM PSTdocumented in thi s encounter Plan of Treatment Not on filedocumented as of this encounter Visit Diagnoses Not on filedocumented in this encounter
--- OUTSIDE RECORDS SUMMARY | ~2020-02-16 | XMS | Clinical Summary ---
Demographics + + + | Address | [address] [facility] [address] [address] | | | [place] [address] | + + + | Home Phone [...] Team Providers + +------+ + | Care Digital Marketer Name | Role | Phone | + [...] [place] | | Endobiliary stent placed at [facility] | + + + + + [...] | [facility] | [facility] | [id number] | 05/21/19 | | | Medica | | | HEALTH | | 19-Pre | | | re | | | MDCR | | sent | | | | + +--------+ +--------+-------+---------+--------+ | [facility] | [facility] | [id number] | | | | Medica | | [...] Person | Self | [birth year] | [address] | | | al/Fam | | 1935 | [id number] | [place], [place] | | | michelle | | | 4 (Home) | [address] | + +--------+ +--------+ + + | William Burns | Person | Self | [birth year] | | [address] | | | al/Fam | | 1935 | [phone] | [place], [place] | | | michelle | | | 4 (Home) | [address] | + +--------+ +--------+ + + Advance Directives + + + + + | Type | Date Recorded | Patient | Explanation | | | | Loading Machine Adjuster | | + + + + + | Power of | | | | | Ingredient Mixer | | | | + + + + + | Advance | 08/09/2017 11:17 | | | | Directive | AM | | | + + + + +
--- OUTSIDE RECORDS SUMMARY | ~2020-02-16 | XMS | Encounter Summary ---
Demographics + + + | Address | [address] | | | [place] [address] | + + + | Home Phone [...] Team Providers + +------+ + | Care Sciences Dean Name | Role | Phone | + +------+ + | Herlinda Maldonado | PCP | | + +------+ + Encounter Details +--------+ + + + + | Date | Type | Department | Care Team | Description | +--------+ + + + + | 06/16/ | Telephone | [facility] Primary Care | Sid, | | | 2018 | | at [facility] | Alexa Anderson MD | | | | | [address] | [address] | | | | | Loop Physician's | [place], | | | | | [place], 3rd floor | [place] [address] | | | | | [place], [place] | [phone] | | | | | [address] | | | | | | [phone] | | | +--------+ + + + [...] PSTAfter hours call 4 :45 pm from [facility] at [facility]. Patient hasn't slept will in 2 nights. [...]
--- OUTSIDE RECORDS SUMMARY | ~2020-02-16 | XMS | Encounter Summary ---
Demographics + + + | Address | [address] | | | [place] [address] | + + + | Home Phone | | + + + | Preferred Language | Unknown | + + + | Marital Status | | + + + | Mandaen Affiliation | Unknown | + + + | Race | White | + + + | Ethnic Group | Not or | + + + Author + + + | Author | [facility] | | | and [place] | + + + | Organization | [facility] | | [...] Team Providers + +------+ + | Care Texture Artist Name | Role | Phone | [...] + | 07/26/ | Telephone | [facility] | Jamey Hdz | Care Coordination | | 2017 | | GASTROENTEROLOGY | MD [address] | | | | | [address] TREASURE | [address] [facility] | | | | | [address] [place], [place] | [place] [address] | | | | | [address] | [phone] | | | | | [phone] | | | +--------+ + + + [...] Star cole, the patient's general surgeon in [place]. Dr. Neumann is requesting an ERCP for [...]
--- OUTSIDE RECORDS SUMMARY | ~2020-02-16 | XMS | Encounter Summary ---
Demographics + + + | Address | [address] | | | [place] [address] | + + + | Home Phone [...] Team Providers + +------+ + | Care Felting Machine Operator Name | Role | Phone [...] | 2019 | on | [facility] | [address] | | | | | [address] | [place], | | | | | [place], | [place] [address] | | | | | [place] [address] | [phone] | | | | | [phone] | | | +--------+ + + + [...]
--- OUTSIDE RECORDS SUMMARY | ~2020-02-16 | XMS | Encounter Summary ---
Demographics + + + | Address | [address] | | | [place] [address] | + + + | Home Phone [...] Team Providers + +------+ + | Care Vessel Crew Member Name | Role | Phone | + [...] Mitesh | | | | | Herb [facility] | [facility] | | | | | [facility]mitting | [place], [place] | | | | | Desk Located on the | [address] | | | | | 9th floor | [phone] | | | | | [place], [place] | | | | | | [address] | | | +--------+ + + + [...] + + | Urethr | 06/26/17; 09; [facility]; | 06/26/17 09 by | 06/27/17 1100 by | | al | Veena-nita Arriaga; 06/27/17; 1100 | Leonor Peck RN | Lani Chicas RN | | Cathet | | | | | er | | | | +--------+ + + + | [facility]ra | 06/26/17; 0900; Dr. Garcia; [facility]; | 06/26/17 0900 by | 06/27/17 [...] be different from the original. William Burns [id number] Allergies Allergen Reactions Aromatic Dyspnea Budesonide-Formoterol Dyspnea [...] be different from the original. William Burns [id number] Allergies Allergen Reactions Aromatic Dyspnea Budesonide-Formoterol Dyspnea [...] Date RATE 76 06/26/2017 ATRIALRATE 77 06/26/2017 GA 223 06/26/2017 QRS 145 06/26/2017 QT 469 [...] his daughter Sharon mcdonald by phone at [phone], discussed plan to bring patient to OR and induce sedation and pain control, continue to support respiratory and hemodynamic functions and bring the patie nt back to the ICU for further care--vent weaning, etc. PARQ discussed with: healthcare noemi r of insurance attorney, Procedures, Alternatives, Risks, and Questions discussed, [...]
--- OUTSIDE RECORDS SUMMARY | ~2020-02-16 | XMS | Encounter Summary ---
Demographics + + + | Address | [address] | | | [place] [address] | + + + | Home Phone [...] Providers + +------+ + | Care Nurse Chemical Dependency Name | Role | Phone | + [...] + + | 08/01/ | Telephone | [facility] | Jamey Hdz | Procedure (ERCP) | | 2018 | | GASTROENTEROLOGY | MD [address]ark[address] | | | | | [address] | [address] [facility] | | | | | [address] [place], [place] | [place] [address] | | | | | [address] | [phone] | | | | | [phone] | | | +--------+ + + + [...]
--- OUTSIDE RECORDS SUMMARY | ~2020-02-16 | XMS | Encounter Summary ---
Demographics + + + | Address | [address] | | | [place] [address] | + + + | Home Phone [...] Team Providers + +------+ + | Care Apiculturist Name | Role | Phone | + +------+ + PCP | Unavailable | + +------+ + Encounter Details +--------+ + + + + | Date | Type | Department | Care Team | Description | +--------+ + + + + | 03/05/ | Hospital | [facility] | Wing Jennifer Hunter MD | REHABILITATION PROC | | 2002 - | Encounter | [facility] | [address] | PITER | | | | INPATIENT | [place], [place] | | | 03/09/ | | REHABILITATION [address] | [address] | | | 2002 | | [address] | [phone] | | | | | [place], [place] | | | | | | [address] | | | | | | [phone] | | | +--------+ + + + [...]
--- OUTSIDE RECORDS SUMMARY | ~2020-02-16 | XMS | Encounter Summary ---
Demographics + + + | Address | [address] | | | [place] [address] | + + + | Home Phone [...] Team Providers + +------+ + | Care Telecommunications Manager Name | Role | Phone | [...] | Procedural Unit at | MD Rashida [address] | (ERCP f/u) | | | | Mikayla Borges [address] | | | | | [address] | [place], [place] | | | | | [place], | [address] | | | | | [address] floor [place], | [phone] | | | | | [place] [address] | | | | | | [phone] | | | +--------+ + + + [...] ampulla, nor was it seen on the exhibit cleaner image. - Several filling defects consistent with [...] scheduled for 08/14/17 ERCP w/Dr. Penny at [place] to remove stent. elephone Encounter - Hedy [...] notes are for his 07/13/17 je at [facility] with Dr. Flowers. Called Dr. Flowers's office and s/w [place] about need for ERCP and what plans were. She said pt did not want to come back to [facility] so they referred to Dr. Disla in [place] for ERCP. If his office declines then they will send him back to [facility]. [place] planned to f/u with Dr. [...] clear duct Given that we were in [facility], images were not available RENE MALDONADO MD 06/27/2017 6:48:17 AM documented in this encoun ter Plan of Treatment Not on filedocumented as of this encounter Visit Diagnoses Not on filedocumented in this encounter"
--- OUTSIDE RECORDS SUMMARY | ~2020-02-16 | XMS | Encounter Summary ---
Demographics + + + | Address | [address] [address] | | | [place] [address] | + + + | Home Phone | | + + + | Preferred Language | Unknown | + + + | Marital Status | | + + + | Faith Affiliation | Unknown | + + + | Race | White | + + + | Ethnic Group | Not or | + + + Author + + + | Author | Located Within [facility] | | | and [place] | + + + | Organization | Located Within [facility] | | [...] Team Providers + +------+ + | Care Mandarin Tutor Name | Role | Phone | + +------+ + PCP | Unavailable | + +------+ + Encounter Details +--------+ + + + + | Date | Type | Department | Care Team | Description | +--------+ + + + + | 08/10/ | Hospital | [facility] | Sudeep Sarabia, | GI bleed; Lower | | 2013 - | Encounter | [facility] | MD Carlos MIRZA | abdominal pain; HTN | | | | CLINICAL DECISION | [place] [id number] | (hypertension) | | 08/13/ | | UNIT Carlos [facility] | [phone] | | | 2013 | | [place], [place] | | | | | | [address] | | | | | | [phone] | | | +--------+ + + + [...] 1735 Date of Service: 08/13/1343 Status: Signed Cork Insulation Setter: Iban Medina MD (Physician) Related Notes: Original Note by Iban Medina MD (Physician) filed at 08/13/13 1524 HOSPITALIST DISCHARGE SUMMARY Patient ID: William Hurst [id number] 78 y.o. 1935 Admit date: 08/10/2013 Discharge [...] loss. The patien t was brought to [facility] and was transferred to [facility] for a GI evaluation. Dr. Ball from gastroenterology was consulted because of the ac belkofski GI bleed. The patient was started on [...] endoscopy the patient was transferred to the [facility] floor. Serial hemoglobin and hematocrit were checked. [...] are the prescriptions that you need to black pickler. You may get these medications from any pharmacy. furosemide 40 MG tablet omeprazole 20 MG capsule Activity: activity as tolerated Diet: cardiac Follow up: Daryl Mathews MD [address] [place] [address] [place] [address] Schedule an appointment as soon as possible for a visit Perry Ball MD [address] [facility] [address] In 2 weeks Discharge took approximately 40 minutes, to include final examination,discussion of admissi on, and preparation of prescriptions, instructions for ongoing care, follow up and dictation of summary. Signed: Ibna Medina 08/13/2013 3:20 PM documente d in this encounter Progress Notes Conversion Transaction, Provider Unknown - 08/13/2013 12:20 PM PDTFormatting of this note m ight be different from the original. Progress Notes by Danielle Rubin RN at 08/13/13 1220 Author: Danielle Rubin RN Service: (none) Author Type: Registered Nurse Filed: 08/13/13 1221 Date of Service: 08/13/13 1220 Status: Signed Cork Insulation Setter: Danielle Rubin RN (Registered Nurse) Pt ready for DC. All DC instructions given and understood, at bedside, pt enjoying roxane ch informed to call when through to be wheeled out. Danielle Rubin RN onver audrey Transaction, Provider Unknown - 08/12/2013 3:02 PM PDT Case Management by Diane Hightower RN at 08/12/13 1501 Author: Diane Hightower RN Service: (none) Author Type: Registered Nurse Filed: 08/12/13 1502 Date of Service: 08/12/13 1502 Status: Addendum Cork Insulation Setter: [place] Hightower RN (Registered Nurse) Related Notes: [...] Notes by Iban Medina MD at 08/12/13 0829 Author: Iban Medina MD Service: Hospitalist Author Type: Physician Filed: 08/12/13 1313 Date of Service: 08/12/13846 Status: Signed Cork Insulation Setter: Iban Medina MD (Physician) [facility] Service: Hospitalist Progress Note Hospital [...] hours No results found for this basename: PHART:3,PO2ART:3,ZVF5ODL:3,P5KRMTJS:3,BEART:[address] 168 hours Lab [...] 08/12/131929 Date of Service: 08/11/131913 Status: Signed Cork Insulation Setter: Perry Ball MD (Physician) Related Notes: Original Note by Perry Ball MD (Physician) filed at 08/11/13 1 926 [facility] Service: Gastroenterology Progress Note Hospital [...] 08/11/131929 Date of Service: 08/11/131903 Status: Addendum Cork Insulation Setter: Alexys Nolan MD (Physician) Related Notes: Original Note by Alexys Nolna MD (Physician) filed at 08/11/131909 [facility] Service: Hospitalist Progress Note Hospital [...] Date of Service: 08/11/13 0657 Status: Signed Cork Insulation Setter: Milton Khoury RN (Registered Nurse) Pt has [...] 08/10/132216 Date of Service: 08/10/132216 Status: Signed Cork Insulation Setter: Lashawn Soria RPH (Pharmacist) Clinical Pharmacy Note: [...] Author: MICHAEL Mc Service: (none) Author Type: Um Nurse Filed: 08/10/132133 Date of Service: 08/10/132130 Status: Signed Cork Insulation Setter: MICHAEL Mc (Um Nurse) 08/10/132129 Discharge Planning Evaluation Admitting Diagnosis GIB Readmission No Living Arrangements Spouse/significant other Support Systems Spouse/significant other;Children Type of Residence Private residence House type House-1 story Bathrooms on 1st Floor 1-Full Independent with ADL's Yes Independent with Mobility Yes Home Care Services No Caregiver after Discharge Yes Caregiver Name Camryn Hurst Relationship to Patient Spouse Phone number [phone] Mental Status Oriented Power of Strategic Sourcing Manager Yes Power of Strategic Sourcing Manager Name Camryn Hurst Power of Strategic Sourcing Manager Resources Financial concerns No Transportation issues No Patient/Family concerns No Prescription Plan Yes Met with pt to discuss discharge planning. Pt is a 78 y.o., male who lives with his in a private residence in [place]. Pt is independent and very active. Pt reports he mows h is own grass and cares for his chickens. Pt is independent with ADLs, uses no DME, has never used HH. Pt is not on O2/cpap/bipap. He is not engaged in o/p medical services. Pt reports his will come to [facility] in the morning. Pt has no family in [facility]. His Dtr Radha Renteria lives near him in [place]. Pt denies d/c needs at this time. Patient's PCP is: DARYL MATHEWS Patient's insurance: [place] [facility] Coverage concerns: n/a Medication coverage/concerns: n/a [...] Service: (none) Author Type: Physician Filed: 08/10/13 2510 Date of Service: 08/10/131928 Status: Signed Cork Insulation Setter: Sudeep Sarabia MD (Physician) Related Notes: Original Note by Sudeep Sarabia MD (Physician) filed at 08/10/132024 [facility] Service: Hospitalist Admission History & [...] initially [facility] the patient might have had lower [...] with p.r.n. doses of Prilosec and perhaps fsrq-mws-jkedvvm Tums. He sta denise that his indigestion occurs when he eats food such as tomato sauce containing foods or s picy sauce. These symptoms have been ongoing for the past 10 years or so. There was no escal ation of these symptoms in the recent past. The patient was initially brought by emergency room to [facility]. Due to lack of beds, as reported by the patient, he was transferred to [facility] for further evaluation. His CMP from [facility] in [place] showed sodium 138, potass ium 4.7, chloride [...] was 17.8 (normal 4.5 to 9.8) at [facility]. Troponin I was less than 0.1, which was negative. A 12-lead EKG at [facility] showed normal sinus rhythm with a rate of 66 beats per minute, incomplete right bundle bran ch block, no acute ST or T-wave changes to suggest ischemic process. The patient was evaluated at [facility] Emergency Room by . T he patient had no further episodes of hematemesis or lower gastrointestinal bleeding. His r epeat H and H were 11.8 and 35.6 respectively. CMP was fairly unchanged from the one obtaine d at [facility]. the patient is being admitted to our [...] male who was transferred via EMS from [facility] in [place] with the followin. Gastrointestinal bleed. The patient [...] 08/12/131929 Date of Service: 08/10/131921 Status: Signed Cork Insulation Setter: Perry Ball MD (Physician) Related Notes: Original Note by Perry Ball MD (Physician) filed at 08/10/13 1 933 [facility] Service: Gastroenterology Initial Consult Note [...] [facility] The patient had breakfast without having any problem. He later felt bad, which was nonsp ecific. At about 10:00 a.m., the patient had an urge to vomit. He went to the rest room. He felt dizzy, sweating, and then he vomited red blood clots once. After that, the patient was brought to [facility]. He had blood test done. The blood test done and CT scan of the abdomen and pelvis were done. He was then sent to [facility] for fur ther evaluation. At [facility], the patient had pain across the umbilicus. [...] presented with one episode of hematemesis. At fl esent, the patient had stable hemodynamic status. [...] 08/10/131919 Date of Service: 08/10/131919 Status: Signed Cork Insulation Setter: Francisco Hall RN (Registered Nurse) GI doctor at bedside for eval. Francisco Hall RN 08/10/131919 onver audrey Transaction, Provider Unknown - 08/10/2013 6:19 PM PDT ED Notes by Francisco Hall RN at 08/10/131818 Author: Francisco Hall RN Service: (none) Author Type: Registered Nurse Filed: 08/10/131818 Date of Service: 08/10/131818 Status: Signed Cork Insulation Setter: Francisco Hall RN (Registered Nurse) Patient given [...] 08/10/131757 Date of Service: 08/10/131757 Status: Signed Cork Insulation Setter: Franicsco Hall RN (Registered Nurse) Dr. White at bedside. Francisco Hall RN 08/10/131757 Sudeep Edmond MD - 08/10/2013 5:55 PM PDT ED Provider Notes by Sudeep White MD at 08/10/131754 Author: Sudeep White MD Service: (none) Author Type: Physician Filed: 08/13/13 1410 Date of Service: 08/10/131754 Status: Signed Cork Insulation Setter: Sudeep White MD (Physician) Procedure Orders: 1. POCT occult blood stool [[id number]] ordered by Christos Faith at 08/10/13 1802 [facility] Department of Emergency Medicine Provider Row Name 08/10/13 1614 08/10/13 1543 Pre-arrival Provider Pre-arrival Provider Another ED [facility] -- Provider Name SARI HernandezTroy Springer [...] male who was transferred to ED from [facility] with a CC of hematemesis, for [...] Procedure: ESOPHAGOGASTRODUODENOSCOPY; Surgeon: Perry Ball MD; Location: [facility] ENDOSCOPY; Service: Gastroenterology; Laterality: N/A; [...] Department Course 5:57 PM Pt transferred from [facility] with upper GI bleed and hematemesis. I will order for repeat blood count, check liver enzymes, INR, aPTT, GI consult, and arrange for pt admi ssion. 6:02 PM Hemoccult performed. (See procedure for details). 6:08 PM Reviewed work-up and records from [facility]. They diagnosed the pt with having an Upper GI bleed, which is not supported by the hx or exam. CT of abd was normal. Lab work from [facility] was not significant. Mildly anemic. I [...] Value Ref Range Date/Time Complete Metabolic Panel [[id number]] (Abnormal) Collected:08/10/131814 Order Status:Completed Updated:08/10/131853 Specimen Information:Blood [...] 65 U/L EGFR >60 >60 mL/min/1.73m2 Lipase [[id number]] (Abnormal) Collected:08/10/131814 Order Status:Completed Updated:08/10/131853 Specimen Information:Blood LIPASE 66 (L) 73 - 393 U/L CBC w Auto Diff [[id number]] (Abnormal) Collected:08/10/131814 Order Status:Completed Updated:08/10/131839 Specimen Information:Blood [...] RBC AND PLT MORPHOLOGY APPEAR NORMAL PT [[id number]] Collected:08/10/131814 Order Status:Completed Updated:08/10/131838 Specimen Information:Blood INR 1.1 PTT [[id number]] (Abnormal) Collected:08/10/131814 Order Status:Completed Updated:08/10/131838 Specimen Information:Blood [...] visit [address] [place] [address] Perry Ball MD In 2 weeks [address] [facility] [address] Discharge Medications: New Prescriptions OMEPRAZOLE (PRILOSEC) 20 [...] 08/10/131745 Date of Service: 08/10/131744 Status: Addendum Cork Insulation Setter: Francisco Hall RN (Registered Nurse) Related Notes: [...] 08/10/131744 Date of Service: 08/10/131744 Status: Signed Cork Insulation Setter: Francisco Hall RN (Registered Nurse) Bed:12
Expected date:
Expected time:
Means of arrival:
Comments:
[facility] onver audrey Transaction, Provider Unknown - 08/10/2013 5:30 PM PDT ED Notes by Rashmi Doe RN at 08/10/131729 Author: Rashmi Doe RN Service: (none) Author Type: Registered Nurse Filed: 08/10/131729 Date of Service: 08/10/131729 Status: Signed Cork Insulation Setter: Rashmi Doe RN (Registered Nurse) Stable, no change en route Rashmi Doe RN 08/10/131729 docume nted in this encounter Miscellaneous Notes Op Note - Perry Ball - 08/10/2013 9:56 PM PDT Op Note by Perry Ball MD at 08/10/132155 Author: Perry Ball MD Service: Gastroenterology Author Type: Physician Filed: 08/10/132204 Date of Service: 08/10/132155 Status: Addendum Cork Insulation Setter: Perry Ball MD (Physician) Related Notes: Original Note by Perry Ball MD (Physician) filed at 08/10/13 203 [facility] Service: Gastroenterology ENDOSCOPY SUITE PROCEDURE [...] | Sudeep White MD 08/13/2013 2:[address] PM [facility] | EXTERNAL LAB | | [facility] Department of Emergency Medicine Provider Row [...] male who was transferred to ED from [facility] with a | | | CC [...] Perry Ball MD; | | | Location: [facility] ENDOSCOPY; Service: Gastroenterology; | | | Laterality: [...] PM | | | Pt transferred from [facility] with upper GI bleed and | | | hematemesis. I will order for repeat blood count, check liver | | | enzymes, INR, aPTT, GI consult, and arrange for pt admission. | | | 6:02 PM Hemoccult performed. (See procedure for details). 6:08 PM | | | Reviewed work-up and records from [facility]. They diagnosed the | | | pt with having an Upper GI bleed, which is not supported by the hx | | | or exam. CT of abd was normal. Lab work from [facility] was not | | | significant. [...] Date/Time Complete Metabolic | | | Panel [[id number]] (Abnormal) Collected:08/10/131814 Order | | | Status:Completed [...] | | EGFR >60 >60 mL/min/1.73m2 Lipase [[id number]] (Abnormal) | | | Collected:08/10/131814 Order Status:Completed Updated:08/10/13 | | | 1854 Specimen Information:Blood LIPASE 66 (L) 73 - 393 U/L | | | CBC w Auto Diff [[id number]] (Abnormal) Collected:08/10/131814 | | | Order Status:Completed [...] MORPHOLOGY APPEAR NORMAL | | | PT [[id number]] Collected:08/10/131814 Order Status:Completed | | | Updated:08/10/131838 Specimen Information:Blood INR 1.1 | | | PTT [[id number]] (Abnormal) Collected:08/10/131814 Order | | | Status:Completed [...] for a visit 1100 | | | [facility] [address] [place] [address] [facility] | | | MD Lanny In 2 weeks [address] [facility] [address] | | | [phone] Discharge Medications: New Prescriptions | | | [...] | | | | | [place] [address] | | | | + + + + + + | Non- | 3.58 (L)Comment: Testing | 4.20 - 5.70 | EXTERNAL | | | Red Blood | performed at [facility], [address] | M/uL | LAB | | | Cells | [address], | | | | | Counted | [place] [address] | | | | + + + + + + | Hemoglobin | 11.0 (L)Comment: Testing | 13.2 - 17.0 | EXTERNAL | | | | performed at [facility], [address] | g/dL | LAB | | | | [address], | | | | | | [place] [address] | | | | + + + + + + | Hematocrit, | 33.5 (L)Comment: Testing | 39.0 - 50.0 % | EXTERNAL | | | POC | performed at [facility], [address] | | LAB | | | | [address], | | | | | | [place] [address] | | | | + + + + + + | MCV | 93.6Comment: Testing | 80.0 - 100.0 fl | EXTERNAL | | | | performed at [facility], [address] | | LAB | | | | [address], | | | | | | [place] [address] | | | | + + + + + + | MCH | 30.7Comment: Testing | 27.0 - 34.0 pg | EXTERNAL | | | | performed at [facility], [address] | | LAB | | | | [address], | | | | | | [place] [address] | | | | + + + + + + | MCHC | 32.8Comment: Testing | 32.0 - 35.5 | EXTERNAL | | | | performed at [facility], [address] | g/dL | LAB | | | | [address], | | | | | | [place] [address] | | | | + + + + + + | RDW-CV | 43.3Comment: Testing | 37 - 53 fl | EXTERNAL | | | | performed at [facility], [address] | | LAB | | | | [address], | | | | | | [place] [address] | | | | + + + + + + | Platelet | 186Comment: Testing | 150 - 400 K/uL | EXTERNAL | | | Count | performed at [facility], [address] | | LAB | | | Plasma | [address], | | | | | | [place] [address] | | | | + + + + + + | MPV | 10.1Comment: Testing | fl | EXTERNAL | | | | performed at [facility], [address] | | LAB | | | | [address], | | | | | | [place] [address] | | | | + + + + + + | Differentia | AUTOMATEDComment: | | EXTERNAL | | | l Type | Testing performed at | | LAB | | | | [facility], [address] | | | | | | [place] | | | | | | [address] | | | | + + + + + + | % Segmented | 66.0Comment: Testing | % | EXTERNAL | | | | performed at [facility], [address] | | LAB | | | Neutrophils | [address], | | | | | | [place] [address] | | | | + + + + + + | % | 20.0Comment: Testing | % | EXTERNAL | | | Lymphocytes | performed at [facility], [address] | | LAB | | | | [address], | | | | | | [place] [address] | | | | + + + + + + | % Monocytes | 7.3Comment: Testing | % | EXTERNAL | | | | performed at [facility], [address] | | LAB | | | | [address], | | | | | | [place] [address] | | | | + + + + + + | % | 6.3Comment: Testing | % | EXTERNAL | | | Eosinophils | performed at [facility], [address] | | LAB | | | | [address], | | | | | | [place] [address] | | | | + + + + + + | % Basophils | 0.4Comment: Testing | % | EXTERNAL | | | | performed at [facility], [address] | | LAB | | | | [address], | | | | | | [place] [address] | | | | + + + + + + | Absolute | 5.5Comment: Testing | 1.9 - 7.4 K/uL | EXTERNAL | | | Segmented | performed at [facility], [address] | | LAB | | | Neutrophils | [address], | | | | | | [place] [address] | | | | + + + + + + | Absolute | 1.7Comment: Testing | 1.0 - 3.9 K/uL | EXTERNAL | | | Lymphocytes | performed at [facility], [address] | | LAB | | | | [address], | | | | | | [place] [address] | | | | + + + + + + | Absolute | 0.6Comment: Testing | 0 - 0.8 K/uL | EXTERNAL | | | Monocytes | performed at [facility], [address] | | LAB | | | [address], | | | | | | [place] [address] | | | | + + + + + + | Absolute | 0.5Comment: Testing | 0 - 0.5 K/uL | EXTERNAL | | | Eosinophils | performed at [facility], [address] | | LAB | | | | [address], | | | | | | [place] [address] | | | | + + + + + + | Absolute | 0.0Comment: Testing | 0 - 0.1 K/uL | EXTERNAL | | | Basophils | performed at [facility], [address] | | LAB | | | | [address], | | | | | | [place] [address] | | | | + + + [...] EXTERNAL | | | | performed at [facility], [address] | | LAB | | | | [address], | | | | | | [place] [address] | | | | + + + [...] | | | | | [place] [address] | | | | + + + + + + | K | 3.9Comment: Testing | 3.5 - 4.9 | EXTERNAL | | | | performed at [facility], [address] | mmol/L | LAB | | | | [address], | | | | | | [place] [address] | | | | + + + + + + | Cl | 103Comment: Testing | 99 - 109 mmol/L | EXTERNAL | | | | performed at [facility], [address] | | LAB | | | | [address], | | | | | | [place] [address] | | | | + + + + + + | CO2 | 28Comment: Testing | 23 - 32 mmol/L | EXTERNAL | | | | performed at [facility], [address] | | LAB | | | | [address], | | | | | | [place] [address] | | | | + + + + + + | Anion Gap | 11Comment: Testing | 5 - 20 mmol/L | EXTERNAL | | | | performed at [facility], [address] | | LAB | | | | [address], | | | | | | [place] [address] | | | | + + + + + + | Glucose, | 114 (H)Comment: Testing | 65 - 99 mg/dL | EXTERNAL | | | Fasting | performed at [facility], [address] | | LAB | | | | [address], | | | | | | [place] [address] | | | | + + + + + + | BUN | 14Comment: Testing | 8 - 25 mg/dL | EXTERNAL | | | | performed at [facility], [address] | | LAB | | | | [address], | | | | | | [place] [address] | | | | + + + + + + | Creatinine | 0.89Comment: Testing | 0.70 - 1.30 | EXTERNAL | | | | performed at [facility], [address] | mg/dL | LAB | | | | [address], | | | | | | [place] [address] | | | | + + + + + + | BUN/Creatin | 16Comment: Testing | | EXTERNAL | | | ine Ratio | performed at [facility], [address] | | LAB | | | | [address], | | | | | | [place] [address] | | | | + + + + + + | Calcium | 8.6Comment: Testing | 8.5 - 10.2 | EXTERNAL | | | | performed at [facility], [address] | mg/dL | LAB | | | | [address], | | | | | | [place] [address] | | | | + + + + + + | Protein, | 5.7 (L)Comment: Testing | 6.3 - 8.2 g/dL | EXTERNAL | | | Total | performed at [facility], [address] | | LAB | | | | [address], | | | | | | [place] [address] | | | | + + + + + + | Albumin | 3.7Comment: Testing | 3.3 - 4.8 g/dL | EXTERNAL | | | | performed at [facility], [address] | | LAB | | | | [address], | | | | | | [place] [address] | | | | + + + + + + | Globulin | 2.0Comment: Testing | 1.3 - 4.9 g/dL | EXTERNAL | | | | performed at [facility], [address] | | LAB | | | | [address], | | | | | | [place] [address] | | | | + + + + + + | A/G Ratio | 1.9Comment: Testing | 1.0 - 2.4 | EXTERNAL | | | | performed at [facility], [address] | | LAB | | | | [address], | | | | | | [place] [address] | | | | + + + + + + | Bilirubin | 0.8Comment: Testing | 0.1 - 1.5 mg/dL | EXTERNAL | | | Total | performed at [facility], [address] | | LAB | | | | [address], | | | | | | [place] [address] | | | | + + + + + + | ALP, | 36Comment: Testing | 35 - 115 U/L | EXTERNAL | | | External | performed at [facility], [address] | | LAB | | | | [address], | | | | | | [place] [address] | | | | + + + + + + | AST | 12Comment: Testing | 10 - 45 U/L | EXTERNAL | | | | performed at [facility], [address] | | LAB | | | | [address], | | | | | | [place] [address] | | | | + + + + + + | ALT | 12Comment: Testing | 10 - 65 U/L | EXTERNAL | | | | performed at [facility], [address] | | LAB | | | | [address], | | | | | | [place] [address] | | | | + + + [...] | | | | | | at [facility], [address] | | | | | | [address], | | | | | | [place] [address] | | | | + + + [...] | | | | | [place] [address] | | | | + + + + + + | Non- | 3.42 (L)Comment: Testing | 4.20 - 5.70 | EXTERNAL | | | Red Blood | performed at [facility], [address] | M/uL | LAB | | | Cells | [address], | | | | | Counted | [place] [address] | | | | + + + + + + | Hemoglobin | 10.6 (L)Comment: Testing | 13.2 - 17.0 | EXTERNAL | | | | performed at [facility], [address] | g/dL | LAB | | | | [address], | | | | | | [place] [address] | | | | + + + + + + | Hematocrit, | 31.8 (L)Comment: Testing | 39.0 - 50.0 % | EXTERNAL | | | POC | performed at [facility], [address] | | LAB | | | | [address], | | | | | | [place] [address] | | | | + + + + + + | MCV | 93.0Comment: Testing | 80.0 - 100.0 fl | EXTERNAL | | | | performed at [facility], [address] | | LAB | | | | [address], | | | | | | [place] [address] | | | | + + + + + + | MCH | 31.0Comment: Testing | 27.0 - 34.0 pg | EXTERNAL | | | | performed at [facility], [address] | | LAB | | | | [address], | | | | | | [place] [address] | | | | + + + + + + | MCHC | 33.3Comment: Testing | 32.0 - 35.5 | EXTERNAL | | | | performed at [facility], [address] | g/dL | LAB | | | | [address], | | | | | | [place] [address] | | | | + + + + + + | RDW-CV | 44.2Comment: Testing | 37 - 53 fl | EXTERNAL | | | | performed at [facility], [address] | | LAB | | | | [address], | | | | | | [place] [address] | | | | + + + + + + | Platelet | 171Comment: Testing | 150 - 400 K/uL | EXTERNAL | | | Count | performed at [facility], [address] | | LAB | | | Plasma | [address], | | | | | | [place] [address] | | | | + + + + + + | MPV | 9.9Comment: Testing | fl | EXTERNAL | | | | performed at [facility], [address] | | LAB | | | | [address], | | | | | | [place] [address] | | | | + + + + + + | Differentia | AUTOMATEDComment: | | EXTERNAL | | | l Type | Testing performed at | | LAB | | | | [facility], [address] | | | | | | [place] | | | | | | [address] | | | | + + + + + + | % Segmented | 69.8Comment: Testing | % | EXTERNAL | | | | performed at [facility], [address] | | LAB | | | Neutrophils | [address], | | | | | | [place] [address] | | | | + + + + + + | % | 19.3Comment: Testing | % | EXTERNAL | | | Lymphocytes | performed at [facility], [address] | | LAB | | | | [address], | | | | | | [place] [address] | | | | + + + + + + | % Monocytes | 6.3Comment: Testing | % | EXTERNAL | | | | performed at [facility], [address] | | LAB | | | | [address], | | | | | | [place] [address] | | | | + + + + + + | % | 4.1Comment: Testing | % | EXTERNAL | | | Eosinophils | performed at [facility], [address] | | LAB | | | | [address], | | | | | | [place] [address] | | | | + + + + + + | % Basophils | 0.5Comment: Testing | % | EXTERNAL | | | | performed at [facility], [address] | | LAB | | | | [address], | | | | | | [place] [address] | | | | + + + + + + | Absolute | 5.2Comment: Testing | 1.9 - 7.4 K/uL | EXTERNAL | | | Segmented | performed at [facility], [address] | | LAB | | | Neutrophils | [address], | | | | | | [place] [address] | | | | + + + + + + | Absolute | 1.4Comment: Testing | 1.0 - 3.9 K/uL | EXTERNAL | | | Lymphocytes | performed at [facility], [address] | | LAB | | | | [address], | | | | | | [place] [address] | | | | + + + + + + | Absolute | 0.5Comment: Testing | 0 - 0.8 K/uL | EXTERNAL | | | Monocytes | performed at [facility], [address] | | LAB | | | | [address], | | | | | | [place] [address] | | | | + + + + + + | Absolute | 0.3Comment: Testing | 0 - 0.5 K/uL | EXTERNAL | | | Eosinophils | performed at [facility], [address] | | LAB | | | | [address], | | | | | | [place] [address] | | | | + + + + + + | Absolute | 0.0Comment: Testing | 0 - 0.1 K/uL | EXTERNAL | | | Basophils | performed at [facility], [address] | | LAB | | | | [address], | | | | | | [place] [address] | | | | + + + [...] | | | | | [place] [address] | | | | + + + + + + | K | 4.6Comment: Testing | 3.5 - 4.9 | EXTERNAL | | | | performed at [facility], [address] | mmol/L | LAB | | | | [address], | | | | | | [place] [address] | | | | + + + + + + | Cl | 107Comment: Testing | 99 - 109 mmol/L | EXTERNAL | | | | performed at [facility], [address] | | LAB | | | | [address], | | | | | | [place] [address] | | | | + + + + + + | CO2 | 30Comment: Testing | 23 - 32 mmol/L | EXTERNAL | | | | performed at [facility], [address] | | LAB | | | | [address], | | | | | | [place] [address] | | | | + + + + + + | Anion Gap | 9Comment: Testing | 5 - 20 mmol/L | EXTERNAL | | | | performed at [facility], [address] | | LAB | | | | [address], | | | | | | [place] [address] | | | | + + + + + + | Glucose, | 104 (H)Comment: Testing | 65 - 99 mg/dL | EXTERNAL | | | Fasting | performed at [facility], [address] | | LAB | | | | [address], | | | | | | [place] [address] | | | | + + + + + + | BUN | 22Comment: Testing | 8 - 25 mg/dL | EXTERNAL | | | | performed at [facility], [address] | | LAB | | | | [address], | | | | | | [place] [address] | | | | + + + + + + | Creatinine | 0.95Comment: Testing | 0.70 - 1.30 | EXTERNAL | | | | performed at [facility], [address] | mg/dL | LAB | | | [address], | | | | | | [place] [address] | | | | + + + + + + | BUN/Creatin | 23Comment: Testing | | EXTERNAL | | | ine Ratio | performed at [facility], [address] | | LAB | | | [address], | | | | | | [place] [address] | | | | + + + + + + | Calcium | 8.3 (L)Comment: Testing | 8.5 - 10.2 | EXTERNAL | | | | performed at [facility], [address] | mg/dL | LAB | | | | [address], | | | | | | [place] [address] | | | | + + + + + + | Protein, | 5.4 (L)Comment: Testing | 6.3 - 8.2 g/dL | EXTERNAL | | | Total | performed at [facility], [address] | | LAB | | | [address], | | | | | | [place] [address] | | | | + + + + + + | Albumin | 3.5Comment: Testing | 3.3 - 4.8 g/dL | EXTERNAL | | | | performed at [facility], [address] | | LAB | | | | [address], | | | | | | [place] [address] | | | | + + + + + + | Globulin | 1.9Comment: Testing | 1.3 - 4.9 g/dL | EXTERNAL | | | | performed at [facility], [address] | | LAB | | | [address], | | | | | | [place] [address] | | | | + + + + + + | A/G Ratio | 1.8Comment: Testing | 1.0 - 2.4 | EXTERNAL | | | | performed at [facility], [address] | | LAB | | | | [address], | | | | | | [place] [address] | | | | + + + + + + | Bilirubin | 0.7Comment: Testing | 0.1 - 1.5 mg/dL | EXTERNAL | | | Total | performed at [facility], [address] | | LAB | | | | [address], | | | | | | [place] [address] | | | | + + + + + + | ALP, | 32 (L)Comment: Testing | 35 - 115 U/L | EXTERNAL | | | External | performed at [facility], [address] | | LAB | | | | [address], | | | | | | [place] [address] | | | | + + + + + + | AST | 15Comment: Testing | 10 - 45 U/L | EXTERNAL | | | | performed at [facility], [address] | | LAB | | | | [address], | | | | | | [place] [address] | | | | + + + + + + | ALT | 12Comment: Testing | 10 - 65 U/L | EXTERNAL | | | | performed at [facility], [address] | | LAB | | | | [address], | | | | | | [place] [address] | | | | + + + [...] W | | | | | | [address], | | | | | | [place] [address] | | | | + + + [...] EXTERNAL | | | | performed at [facility];888 | g/dL | LAB | | | | [address] [place];[place] | | | | | | [address] | | | | + + + + + + | Hematocrit, | 34.1 (L)Comment: Testing | 39.0 - 50.0 % | EXTERNAL | | | POC | performed at [facility];[address] | | LAB | | | | [address];[place], [place] | | | | | | [address] | | | | + + + [...] EXTERNAL | | | | performed at [facility];888 | g/dL | LAB | | | | [address];[place] | | | | | | [address] | | | | + + + + + + | Hematocrit, | 34.7 (L)Comment: Testing | 39.0 - 50.0 % | EXTERNAL | | | POC | performed at [facility];888 | | LAB | | | | [address];[place] | | | | | | [address] | | | | + + + [...] EXTERNAL | | | | performed at [facility], [address] | | LAB | | | | [address], | | | | | | [place] [address] | | | | + + + + + + | Non- | 3.42 (L)Comment: Testing | 4.20 - 5.70 | EXTERNAL | | | Red Blood | performed at [facility], [address] | M/uL | LAB | | | Cells | [address], | | | | | Counted | [place] [address] | | | | + + + + + + | Hemoglobin | 10.5 (L)Comment: Testing | 13.2 - 17.0 | EXTERNAL | | | | performed at [facility], [address] | g/dL | LAB | | | | [address], | | | | | | [place] [address] | | | | + + + + + + | Hematocrit, | 31.9 (L)Comment: Testing | 39.0 - 50.0 % | EXTERNAL | | | POC | performed at [facility], [address] | | LAB | | | | [address], | | | | | | [place] [address] | | | | + + + + + + | MCV | 93.5Comment: Testing | 80.0 - 100.0 fl | EXTERNAL | | | | performed at [facility], [address] | | LAB | | | | [address], | | | | | | [place] [address] | | | | + + + + + + | MCH | 30.7Comment: Testing | 27.0 - 34.0 pg | EXTERNAL | | | | performed at [facility], [address] | | LAB | | | | [address], | | | | | | [place] [address] | | | | + + + + + + | MCHC | 32.9Comment: Testing | 32.0 - 35.5 | EXTERNAL | | | | performed at [facility], [address] | g/dL | LAB | | | | [address], | | | | | | [place] [address] | | | | + + + + + + | RDW-CV | 43.8Comment: Testing | 37 - 53 fl | EXTERNAL | | | | performed at [facility], [address] | | LAB | | | | [address], | | | | | | [place] [address] | | | | + + + + + + | Platelet | 164Comment: Testing | 150 - 400 K/uL | EXTERNAL | | | Count | performed at [facility], [address] | | LAB | | | Plasma | [address], | | | | | | [place] [address] | | | | + + + + + + | MPV | 10.4Comment: Testing | fl | EXTERNAL | | | | performed at [facility], [address] | | LAB | | | | [address], | | | | | | [place] [address] | | | | + + + + + + | Differentia | AUTOMATEDComment: | | EXTERNAL | | | l Type | Testing performed at | | LAB | | | | [facility], [address] | | | | | | [place] | | | | | | [address] | | | | + + + + + + | % Segmented | 65.6Comment: Testing | % | EXTERNAL | | | | performed at [facility], [address] | | LAB | | | Neutrophils | [address], | | | | | | [place] [address] | | | | + + + + + + | % | 23.8Comment: Testing | % | EXTERNAL | | | Lymphocytes | performed at [facility], [address] | | LAB | | | | [address], | | | | | | [place] [address] | | | | + + + + + + | % Monocytes | 9.2Comment: Testing | % | EXTERNAL | | | | performed at [facility], [address] | | LAB | | | | [address], | | | | | | [place] [address] | | | | + + + + + + | % | 1.0Comment: Testing | % | EXTERNAL | | | Eosinophils | performed at [facility], [address] | | LAB | | | | [address], | | | | | | [place] [address] | | | | + + + + + + | % Basophils | 0.4Comment: Testing | % | EXTERNAL | | | | performed at [facility], [address] | | LAB | | | | [address], | | | | | | [place] [address] | | | | + + + + + + | Absolute | 4.6Comment: Testing | 1.9 - 7.4 K/uL | EXTERNAL | | | Segmented | performed at [facility], [address] | | LAB | | | Neutrophils | [address], | | | | | | [place] [address] | | | | + + + + + + | Absolute | 1.7Comment: Testing | 1.0 - 3.9 K/uL | EXTERNAL | | | Lymphocytes | performed at [facility], [address] | | LAB | | | | [address], | | | | | | [place] [address] | | | | + + + + + + | Absolute | 0.6Comment: Testing | 0 - 0.8 K/uL | EXTERNAL | | | Monocytes | performed at [facility], [address] | | LAB | | | | [address], | | | | | | [place] [address] | | | | + + + + + + | Absolute | 0.1Comment: Testing | 0 - 0.5 K/uL | EXTERNAL | | | Eosinophils | performed at [facility], [address] | | LAB | | | | [address], | | | | | | [place] [address] | | | | + + + + + + | Absolute | 0.0Comment: Testing | 0 - 0.1 K/uL | EXTERNAL | | | Basophils | performed at [facility], [address] | | LAB | | | | [address], | | | | | | [place] [address] | | | | + + + [...] EXTERNAL | | | | performed at [facility], [address] | uIU/mL | LAB | | | | [address], | | | | | | [place] [address] | | | | + + + [...] EXTERNAL | | | | performed at [facility], [address] | | LAB | | | | [address], | | | | | | [place] [address] | | | | + + + [...] | | | | | [place] [address] | | | | + + + [...] + + | Hemoglobin | 5.8Comment: [place] | 4.0 - 6.0 % | EXTERNAL [...] | | | | | performed at [facility], [address] | | | | | | [address], | | | | | | [place] [address] | | | | + + + [...] | | | | | performed at [facility], [address] | | | | | | [address], | | | | | | [place] [address] | | | | + + + [...] | | | | | [place] [address] | | | | + + + + + + | K | 4.1Comment: Testing | 3.5 - 4.9 | EXTERNAL | | | | performed at [facility], [address] | mmol/L | LAB | | | | [address], | | | | | | [place] [address] | | | | + + + + + + | Cl | 109Comment: Testing | 99 - 109 mmol/L | EXTERNAL | | | | performed at [facility], [address] | | LAB | | | | [address], | | | | | | [place] [address] | | | | + + + + + + | CO2 | 26Comment: Testing | 23 - 32 mmol/L | EXTERNAL | | | | performed at [facility], [address] | | LAB | | | | [address], | | | | | | [place] [address] | | | | + + + + + + | Anion Gap | 8Comment: Testing | 5 - 20 mmol/L | EXTERNAL | | | | performed at [facility], [address] | | LAB | | | | [address], | | | | | | [place] [address] | | | | + + + + + + | Glucose, | 90Comment: Testing | 65 - 99 mg/dL | EXTERNAL | | | Fasting | performed at [facility], [address] | | LAB | | | | [address], | | | | | | [place] [address] | | | | + + + + + + | BUN | 48 (H)Comment: Testing | 8 - 25 mg/dL | EXTERNAL | | | | performed at [facility], [address] | | LAB | | | | [address], | | | | | | [place] [address] | | | | + + + + + + | Creatinine | 0.92Comment: Testing | 0.70 - 1.30 | EXTERNAL | | | | performed at [facility], [address] | mg/dL | LAB | | | | [address], | | | | | | [place] [address] | | | | + + + + + + | BUN/Creatin | 52Comment: Testing | | EXTERNAL | | | ine Ratio | performed at [facility], [address] | | LAB | | | | [address], | | | | | | [place] [address] | | | | + + + + + + | Calcium | 7.8 (L)Comment: Testing | 8.5 - 10.2 | EXTERNAL | | | | performed at [facility], [address] | mg/dL | LAB | | | | [address], | | | | | | [place] [address] | | | | + + + + + + | Protein, | 5.1 (L)Comment: Testing | 6.3 - 8.2 g/dL | EXTERNAL | | | Total | performed at [facility], [address] | | LAB | | | | [address], | | | | | | [place] [address] | | | | + + + + + + | Albumin | 3.3Comment: Testing | 3.3 - 4.8 g/dL | EXTERNAL | | | | performed at [facility], [address] | | LAB | | | | [address], | | | | | | [place] [address] | | | | + + + + + + | Globulin | 1.8Comment: Testing | 1.3 - 4.9 g/dL | EXTERNAL | | | | performed at [facility], [address] | | LAB | | | | [address], | | | | | | [place] [address] | | | | + + + + + + | A/G Ratio | 1.8Comment: Testing | 1.0 - 2.4 | EXTERNAL | | | | performed at [facility], [address] | | LAB | | | [address], | | | | | | [place] [address] | | | | + + + + + + | Bilirubin | 0.6Comment: Testing | 0.1 - 1.5 mg/dL | EXTERNAL | | | Total | performed at [facility], [address] | | LAB | | | [address], | | | | | | [place] [address] | | | | + + + + + + | ALP, | 27 (L)Comment: Testing | 35 - 115 U/L | EXTERNAL | | | External | performed at [facility], [address] | | LAB | | | | [address], | | | | | | [place] [address] | | | | + + + + + + | AST | 11Comment: Testing | 10 - 45 U/L | EXTERNAL | | | | performed at [facility], [address] | | LAB | | | | [address], | | | | | | [place] [address] | | | | + + + + + + | ALT | 12Comment: Testing | 10 - 65 U/L | EXTERNAL | | | | performed at [facility], [address] | | LAB | | | | [address], | | | | | | [place] [address] | | | | + + + [...] | | | | | [place] [address] | | | | + + + [...] EXTERNAL | | | | performed at [facility];888 | g/dL | LAB | | | | [address];[place] | | | | | | [address] | | | | + + + + + + | Hematocrit, | 31.2 (L)Comment: Testing | 39.0 - 50.0 % | EXTERNAL | | | POC | performed at [facility];[address] | | LAB | | | | [address];[place] | | | | | | [address] | | | | + + + [...] | | LAB | | | [address];[place] [address] | | | | + + + + + + | Antibody | NEGATIVE | | EXTERNAL | | | Screen | | | LAB | | + + + + + + | Antibody | Testing performed at | | EXTERNAL | | | Screen | [facility] | | LAB | | | [address];[place] [address] | | | | + + + + + + | BB BAND | [id number] | | EXTERNAL | | | | | | LAB | | + + + + + + | BB BAND | Testing performed at | | EXTERNAL | | | | [facility] | | LAB | | | [address];[place] [address] | | | | + + + [...] | | | Patient | performed at [facility];[address] | | LAB | | | | [address];[place], [place] | | | | | | [address] | | | | + + + [...] | | | | | performed at [facility];[address] | | | | | | [facility];[place], [place] | | | | | | [address] | | | | + + + [...] EXTERNAL | | | | performed at [facility];888 | | LAB | | | | [address];[place] | | | | | | [address] | | | | + + + + + + | Non- | 3.85 (L)Comment: Testing | 4.20 - 5.70 | EXTERNAL | | | Red Blood | performed at [facility];888 | M/uL | LAB | | | Cells | [address];[place] | | | | | Counted | [address] | | | | + + + + + + | Hemoglobin | 11.8 (L)Comment: Testing | 13.2 - 17.0 | EXTERNAL | | | | performed at [facility];888 | g/dL | LAB | | | | [address];[place] | | | | | | [address] | | | | + + + + + + | Hematocrit, | 35.6 (L)Comment: Testing | 39.0 - 50.0 % | EXTERNAL | | | POC | performed at [facility];[address] | | LAB | | | | [address];[place] | | | | | | [address] | | | | + + + + + + | MCV | 92.5Comment: Testing | 80.0 - 100.0 fl | EXTERNAL | | | | performed at [facility];[address] | | LAB | | | | [address];[place] | | | | | | [address] | | | | + + + + + + | MCH | 30.5Comment: Testing | 27.0 - 34.0 pg | EXTERNAL | | | | performed at [facility];[address] | | LAB | | | | [address];[place] | | | | | | [address] | | | | + + + + + + | MCHC | 33.0Comment: Testing | 32.0 - 35.5 | EXTERNAL | | | | performed at [facility];888 | g/dL | LAB | | | | [address];[place] | | | | | | [address] | | | | + + + + + + | RDW-CV | 44.2Comment: Testing | 37 - 53 fl | EXTERNAL | | | | performed at [facility];[address] | | LAB | | | | [address];[place] | | | | | | [address] | | | | + + + + + + | Platelet | 189Comment: Testing | 150 - 400 K/uL | EXTERNAL | | | Count | performed at [facility];[address] | | LAB | | | Plasma | [address];[place] | | | | | | [address] | | | | + + + + + + | MPV | 9.9Comment: Testing | fl | EXTERNAL | | | | performed at [facility];[address] | | LAB | | | | [address];[place] | | | | | | [address] | | | | + + + + + + | Differentia | MANUALComment: Testing | | EXTERNAL | | | l Type | performed at [facility];[address] | | LAB | | | | [address];[place] | | | | | | [address] | | | | + + + + + + | Segmented | 80Comment: Testing | % | EXTERNAL | | | Neutrophils | performed at [facility];[address] | | LAB | | | Manual | [address];[place] | | | | | | [address] | | | | + + + + + + | % Bands | 6Comment: Testing | % | EXTERNAL | | | | performed at [facility];[address] | | LAB | | | | [address];[place] | | | | | | [address] | | | | + + + + + + | Lymphocytes | 9Comment: Testing | % | EXTERNAL | | | Manual | performed at [facility];[address] | | LAB | | | | [address];[place] | | | | | | [address] | | | | + + + + + + | Monocytes | 5Comment: Testing | % | EXTERNAL | | | Manual | performed at [facility];[address] | | LAB | | | | [address];[place] | | | | | | [address] | | | | + + + + + + | Absolute | 8.8 (H)Comment: Testing | 1.9 - 7.4 K/uL | EXTERNAL | | | Neutrophils | performed at [facility];[address] | | LAB | | | | [address];[place] | | | | | | [address] | | | | + + + + + + | Bands | 0.7 (H)Comment: Testing | 0 - 0.2 K/uL | EXTERNAL | | | Manual | performed at [facility];[address] | | LAB | | | | [address];[place] | | | | | | [address] | | | | + + + + + + | Absolute | 1.0Comment: Testing | 1.0 - 3.9 K/uL | EXTERNAL | | | Lymphocytes | performed at [facility];[address] | | LAB | | | | [address];[place] | | | | | | [address] | | | | + + + + + + | Absolute | 0.6Comment: Testing | 0 - 0.8 K/uL | EXTERNAL | | | Monocytes | performed at [facility];[address] | | LAB | | | | [address];[place] | | | | | | [address] | | | | + + + + + + | Platelet | ADEQUATEComment: Testing | | EXTERNAL | | | Estimate | performed at [facility];[address] | | LAB | | | | [address];[place] | | | | | | [address] | | | | + + + + + + | RBC | RBC AND PLT MORPHOLOGY | | EXTERNAL | | | Morphology | APPEAR NORMALComment: | | LAB | | | | Testing performed at | | | | | | [facility];[address];[place] [address] | | | | + + + [...] EXTERNAL | | | | performed at [facility];[address] | | LAB | | | | [address] [facility];[place] | | | | | | [address] | | | | + + + [...] EXTERNAL | | | | performed at [facility];888 | mmol/L | LAB | | | | [address];[place] | | | | | | [address] | | | | + + + + + + | K | 4.8Comment: Testing | 3.5 - 4.9 | EXTERNAL | | | | performed at [facility];888 | mmol/L | LAB | | | | [address];[place] | | | | | | [address] | | | | + + + + + + | Cl | 107Comment: Testing | 99 - 109 mmol/L | EXTERNAL | | | | performed at [facility];[address] | | LAB | | | | [address];[place] | | | | | | [address] | | | | + + + + + + | CO2 | 27Comment: Testing | 23 - 32 mmol/L | EXTERNAL | | | | performed at [facility];[address] | | LAB | | | | [address];[place] | | | | | | [address] | | | | + + + + + + | Anion Gap | 11Comment: Testing | 5 - 20 mmol/L | EXTERNAL | | | | performed at [facility];[address] | | LAB | | | | [address];[place] | | | | | | [address] | | | | + + + + + + | Glucose, | 146 (H)Comment: Testing | 65 - 99 mg/dL | EXTERNAL | | | Fasting | performed at [facility];[address] | | LAB | | | | [address];[place] | | | | | | [address] | | | | + + + + + + | BUN | 46 (H)Comment: Testing | 8 - 25 mg/dL | EXTERNAL | | | | performed at [facility];[address] | | LAB | | | | [address];[place] | | | | | | [address] | | | | + + + + + + | Creatinine | 0.91Comment: Testing | 0.70 - 1.30 | EXTERNAL | | | | performed at [facility];888 | mg/dL | LAB | | | | [address];[place] | | | | | | [address] | | | | + + + + + + | BUN/Creatin | 50Comment: Testing | | EXTERNAL | | | ine Ratio | performed at [facility];[address] | | LAB | | | | [address];[place] | | | | | | [address] | | | | + + + + + + | Calcium | 7.4 (L)Comment: Testing | 8.5 - 10.2 | EXTERNAL | | | | performed at [facility];888 | mg/dL | LAB | | | | [address];[place] | | | | | | [address] | | | | + + + + + + | Protein, | 5.8 (L)Comment: Testing | 6.3 - 8.2 g/dL | EXTERNAL | | | Total | performed at [facility];[address] | | LAB | | | | [address];[place] | | | | | | [address] | | | | + + + + + + | Albumin | 3.2 (L)Comment: Testing | 3.3 - 4.8 g/dL | EXTERNAL | | | | performed at [facility];[address] | | LAB | | | | [address];[place] | | | | | | [address] | | | | + + + + + + | Globulin | 2.6Comment: Testing | 1.3 - 4.9 g/dL | EXTERNAL | | | | performed at [facility];[address] | | LAB | | | | [address];[place] | | | | | | [address] | | | | + + + + + + | A/G Ratio | 1.2Comment: Testing | 1.0 - 2.4 | EXTERNAL | | | | performed at [facility];[address] | | LAB | | | | [address];[place] | | | | | | [address] | | | | + + + + + + | Bilirubin | 0.5Comment: Testing | 0.1 - 1.5 mg/dL | EXTERNAL | | | Total | performed at [facility];[address] | | LAB | | | | [address];[place] | | | | | | [address] | | | | + + + + + + | ALP, | 47Comment: Testing | 35 - 115 U/L | EXTERNAL | | | External | performed at [facility];[address] | | LAB | | | | [address];[place] | | | | | | [address] | | | | + + + + + + | AST | 11Comment: Testing | 10 - 45 U/L | EXTERNAL | | | | performed at [facility];[address] | | LAB | | | | [address];[place] | | | | | | [address] | | | | + + + + + + | ALT | 19Comment: Testing | 10 - 65 U/L | EXTERNAL | | | | performed at [facility];[address] | | LAB | | | | [address];[place] | | | | | | [address] | | | | + + + [...] | | | | | | at [facility];[address] | | | | | | [address];[place] [id number] | | | | + + + [...]
[~2020-02-16 11:25] MED LIST changes: +CALCITONIN-SAL3.7 ML NAS
--- OUTSIDE RECORDS SUMMARY | 2020-02-16 11:30 | XMS ---
PreManage Notification: EDSON HURST Security Bee Robber Events 1 event(s) in the past 18 months Most recent security events: Elopement at [facility] 11/25/2019 20:37 - Other Details: PATIENT LWBS. CRITERIA MET - Group Notification - [facility] - Has Care Guidelines - PDMP CARE PROVIDERS ROSA ENNIS Physician Batch Plant Operator 05/31/2018-Current PHONE: Unknown Jose F has no Care Guidelines for this patient. Care History Medical/Surgical 11/26/2019 [facility] - CHW CONTACTED PATIENT- PATIENT WOULD LIKE HELP WITH GETTING AN APT IN REGARDS TO HIS CHRONIC CONSTIPATION. - CHW CONTACTED DR JIMENEZ OFFICE-SCHEDULED AN APT 01/05/20 @ 9:20AM EARLIEST APT. THEY DID PUT PATIENT ON THE WAIT LIST FOR CANCELLATIONS. - CHW CONTACTED PCP DR ENNIS-DISCUSSED A POSSIBLE REFERRAL TO A BALE TIE MACHINE OPERATOR. - CHW LEFT A MESSAGE WITH SURESH COX AT [facility] -RESPIRATORY THERAPIST-PULMONARY REHAB. - SARI GÓMEZ-LICENSED CUSTOMS BROKER HAS EDUCATED PATIENT ABOUT PAIN MEDICATION AND CONSTIPATION 08/26/2019 [facility] Left message with [facility] requesting LAMA and ICS be added to patient\T\#39;s care plan. E.D. VISIT COUNT (12 MO.) 9 [facility] [place] TOTAL 9 NOTE: Visits indicate total known visits. ED/UCC VISIT TRACKING (12 MO.) 02/16/2020 11:26 [facility] [place] TYPE: Emergency COMPLAINT: - RAPID HEART RATE/DEPRESSED 11/28/2019 15:55 [facility] [place] TYPE: Emergency COMPLAINT: - BACK PAIN DIAGNOSES: - Allergy status to other drugs, medicaments and biological sub - Low back pain - Personal history of nicotine dependence - Dorsalgia, unspecified - Unspecified atrial fibrillation - Other intermission coordinator (current) 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 - Heart failure, unspecified - Chronic obstructive pulmonary disease, unspecified - Constipation, unspecified 11/25/2019 20:37 [facility] [place] TYPE: Emergency COMPLAINT: - CONSTIPATION DIAGNOSES: - Procedure and treatment not carried out due to patient leavin 11/19/2019 19:09 [facility] [place] TYPE: Emergency COMPLAINT: - SOB DIAGNOSES: - Allergy status to other drugs, medicaments and biological sub - Other intermission coordinator (current) 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 - Personal history of nicotine dependence - Heart failure, unspecified - Shortness of breath - Chronic atrial fibrillation, unspecified - Localized edema - 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 (current) use of aspirin - Chronic obstructive pulmonary disease, unspecified - Dependence on supplemental oxygen 08/23/2019 14:25 [facility] [place] TYPE: Emergency COMPLAINT: - BLOOD PRESSURE PROBLEM DIAGNOSES: - Personal history of nicotine dependence - Chronic obstructive pulmonary disease, unspecified - Other care home (current) 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 - Weakness - Heart failure, unspecified - Unspecified atrial fibrillation 08/12/2019 09:09 [facility] [place] TYPE: Emergency COMPLAINT: - VOMITING DIAGNOSES: - Personal history of nicotine dependence - Nausea with vomiting, unspecified - Unspecified atrial fibrillation - Acute gastritis without bleeding - Other intermission coordinator (current) 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 - Chronic obstructive pulmonary [...] slipping, tripping and stumbling with - Other care home (current) 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 - Laceration without foreign body of right forearm, initial enc INPATIENT VISIT TRACKING (12 MO.) 08/03/2019 16:31 [facility] [place] TYPE: Medical Surgical COMPLAINT: - DECONDITIONING DIAGNOSES: - Allergy status to other drugs, medicaments and biological sub - Chronic obstructive pulmonary disease, unspecified - Wedge compression fracture of first lumbar vertebra, subseque - Wedge compression fracture of first lumbar vertebra, subseque - Hyperlipidemia, unspecified - Retention of urine, unspecified - Other care home (current) 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 - Permanent atrial fibrillation - terminal gauger (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 analgesic - Permanent atrial fibrillation - Respiratory failure, unspecified with hypoxia - Unsteadiness on feet - terminal gauger (current) use of aspirin - Gastro-esophageal reflux disease without esophagitis - Allergy status to other drugs, medicaments and biological sub - terminal gauger (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 analgesic - 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 (current) use of aspirin - Gastro-esophageal reflux disease without esophagitis - Chronic diastolic (congestive) heart failure - Chronic diastolic (congestive) heart failure - Respiratory failure, unspecified with hypoxia - Hyperlipidemia, unspecified - Other care home (current) 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 - Retention of urine, unspecified - Chronic obstructive pulmonary disease, unspecified 07/31/2019 13:[address] [facility] [place] TYPE: Medical Surgical COMPLAINT: - CHF,L1 COMPRESSION FRACTURE DIAGNOSES: - Adverse effect of other opioids, initial encounter - Gastro-esophageal reflux disease without esophagitis - Chronic obstructive pulmonary disease with acute lower respir - Drug induced constipation - Chronic atrial fibrillation, unspecified - Hyperlipidemia, unspecified - Wedge compression fracture of first lumbar vertebra, subseque - Other intermission coordinator (current) 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 - Acute respiratory failure with hypoxia - Pneumonia due to Streptococcus pneumoniae - 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 (current) use of aspirin - Allergy status to other drugs, medicaments and biological sub - Personal history of nicotine dependence - Contact with and (suspected) exposure to asbestos - Acute on chronic diastolic (congestive) heart failure [email or web address]
[2020-02-16] MEDS ORDERED: ATENOLOL25 MG PO (13:45)
--- NOTE | 2020-02-17 15:42 | EKG ---
[facility] [address] [facility] [place] [address] Signed Atrial flutter with variable AV block Left axis deviation Right bundle branch block Possible Inferior infarct (cited on or before 19-NOV-2019) Abnormal ECG When compared with ECG of 19-NOV-2019 19:35, Left anterior fascicular block is no longer present Nonspecific T wave abnormality has replaced inverted T waves in Anterior leads Confirmed by ELADIO RUIZ DO ([id number]) on 02/17/2020 3:42:19 PM Electronically Signed By: ELADIO RUIZ DO 02/17/20 1542 PATIENT NAME: EDSON HURST Electrocardiogram DATE OF : 35 PHYSICIAN: ELADOI RUIZ DO REPORT #: [id number] REPORT IS CONFIDENTIAL AND NOT TO BE RELEASED WITHOUT AUTHORIZATION
== END 2020-02-16 14:21 | disposition home or self-care (01) ==
LOC: ED 11:25
DX: I48.0 Paroxysmal atrial fibrillation (principal); J44.9 Chronic obstructive pulmonary disease, unspecified; I50.9 Heart failure, unspecified; Z87.891 Personal history of nicotine dependence; Z88.8 Allergy status to other drugs, medicaments and biological substances; Z79.899 Other long term (current) 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; Z79.82 Long term (current) use of aspirin
CPT/HCPCS: 71045; 80053; 83735; 83880; 84484; 85025; 93005; 93010; 99285-25

== ENCOUNTER 2020-03-03 10:00 | Inpatient (IN) | payer MEDICARE, OTHER ==
[~2020-03-03] VITALS: Ht 175.3 cm; Wt 66.7 kg
--- OUTSIDE RECORDS SUMMARY | ~2020-03-03 | XMS | Encounter Summary ---
Demographics + + + | Address | [address] | | | [place] [address] | + + + | Home Phone | | + + + | Preferred Language | Unknown | + + + | Marital Status | | + + + | Christianity Affiliation | NON | + + + | Race | White | + + + | Ethnic Group | Not or | + + + Author + + + | Author | [facility] | + + + | Organization | [facility] | + + + | Address | Unknown | + + + | Phone | Unavailable | + + + Support + + +---------+ + | Name | Relationship | Address | Phone | + + +---------+ + | None Per Pt | ECON | Unknown | Unavailable | + + +---------+ + Care Team Providers + +------+ + | Care Tubing Drier Name | Role | Phone | + [...] | | 2019 | | Faculty at [employer] [facility] | MD Meron [address] | | | | | for [facility] and | [address] | | | | | Healing [address] | [facility] [place] | | | | | [facility] | [address] | | | | | Health and Healing, | [phone] | | | | | [facility] | | | | | | Floor [place], [place] | | | | | | [address] | | | | | | [phone] | | | +--------+ + + + [...] e Dr. Stephane Stern Orthopedic surgeon at [facility] orthopedic Surgery and Fracture cli vilma. Clinic phone is [phone]. elephone Encounter - Agustin Cook MA - 06/26/2018 9:09 AM PSTDrTroy Shepard Re commends patient to see Javad Gallardo MD ph: Or Sarkis Liang MD ph: LVM informing patient Telephone Encounter - Hannah Smith - 06/25/2018 4:36 PM PSTPatient would like to see k post op care in [place]. It is much closer per the patient. elephone Encounter - Agustin Cook MA - 2018 4:21 PM PSTLVM informing patient of Dr. Shepard Message. Advised patient to call us ba evangelist. Per Working; "think if William had a more straight forward operation that it would be acceptable, but he is essentially my first patient at [facility] with an all percutaneous operation of his acetabulu m. He needs to see a trauma surgeon. All the trauma surgeons in [place] are in the [facility] or [place] or [place]. If his insurance would cover him going across state lines I could fa cilitate him going to [facility], or there are a few guys in [place] or [place]. My strong preference is for him to stay with us" 19 4:22 PM PSTTelephone Encounter - Hannah Smith - 06/25/2018 8:57 AM PSTPatient: Josiah anayaoswaldo James Burns Last Visit: No past encounter found in [facility]. Next Visit: Next Appointment in [facility] is on 07/02/18 at 1:20 pm with Juan Shepard MD. Recent Surgery: Yes- 06/03/18 Procedure: Closed reduction and percutaneous fixation of the left acetabulum. Provider: Working Reason for call: Patient is no longer in the rehab facility and states that he is going to have a very hard time traveling for his follow up appointments with Dr. Shepard. Patient jeff ves in [place] and would like to know if there is anyone he can follow up with at [facility] for post op care. Please advise. Patient [...]
--- OUTSIDE RECORDS SUMMARY | ~2020-03-03 | XMS | Encounter Summary ---
Demographics + + + | Address | [address] | | | [place] [address] | + + + | Home Phone | | + + + | Preferred Language | Unknown | + + + | Marital Status | | + + + | Christian Affiliation | Unknown | + + + | Race | White | + + + | Ethnic Group | Not or | + + + Author + + + | Author | [facility] | | | and [place] | + + + | Organization | [facility] | | | and [...] Team Providers + +------+ + | Care Chief Of Staff Name | Role | Phone | + +------+ + PCP | Unavailable | + +------+ + Encounter Details +--------+ + + + + | Date | Type | Department | Care Team | Description | +--------+ + + + + | 02/28/ | Hospital | [facility] | Waylon Licona, | INTERTROCHANTERIC | | 2002 - | Encounter | [facility] SUR[facility] [address] | [address] | FX-CLOSE (HCC) | | | | [address] | [place] [address] | | | 03/05/ | | [place], [place] | [phone] | | | 2002 | | [address] | | | | | | [phone] | | | +--------+ + + + [...] | Diagnosis | + + | Closed fracture of intertrochanteric section of femur (HCC) Closed fracture of | | intertrochanteric section of femur | + + documented in this encounter"
--- OUTSIDE RECORDS SUMMARY | ~2020-03-03 | XMS | Encounter Summary ---
Demographics + + + | Address | [address] | | | [place] [address] | + + + | Home Phone | | + + + | Preferred Language | Unknown | + + + | Marital Status | | + + + | Samaritan Affiliation | Unknown | + + + | Race | White | + + + | Ethnic Group | Not or | + + + Author + + + | Author | [facility] | | | and [place] | + + + | Organization | [facility] | | [...] Team Providers + +------+ + | Care Lockstitch Lining Setter Name | Role | Phone | + [...] | Atrial | Maximilian | [address] | | | | | fibrillation | MD Jon | [place], | | | | | , | [address] | [place] | | | | | unspecified | [place] | [address] | | | | | type (HCC) | [place], [place] | Phone: | | | | | Procedures | [address] | [phone] | | | | | ECHO | Phone: | Fax: | | | | | Complete | [phone] | [phone] | | | | | | Fax: | | | | | | | [phone] | | +--------+--------+ + + + + [...] | Atrial | Maximilian | [address] | | | | | fibrillation | MD Jon | [place], | | | | | , | [address] | [place] | | | | | unspecified | [place] | [address] | | | | | type (HCC) | [place], [place] | Phone: | | | | | Procedures | [address] | [phone] | | | | | ECHO | Phone: | Fax: | | | | | Complete | [phone] | [phone] | | | | | | Fax: | | | | | | | [phone] | | +--------+--------+ + + + + Encounter Details +--------+ + + + + | Date | Type | Department | Care Team | Description | +--------+ + + + + | 03/26/ | Hospital | [facility] | Maximilian Goddard | Atrial fibrillation, | | 2019 | Encounter | MED CTR ECHO [address] | MD Jon [address] | unspecified type | | | | [address] [place] | [address] [place] | ([facility]) | | | | [place] [address] | [place] [address] | | | | | [phone] | [phone] | | | | | | | [...] | | | | | | n Bollinger | | | | | + + [...] | | | | | | n [place] | | | | | + + [...] | LILIAN SOTO Room Number Patient Number [id number] Date | | | of Study 03/26/2019 Visit Number [id number] | | | Referring Physician JON GODDARD MD Accession | | | [id number] Manager English [facility] Number | | | Date of 1935 Interpreting | | | JON GODDARD MD | | | Physician 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
--- OUTSIDE RECORDS SUMMARY | ~2020-03-03 | XMS | Encounter Summary ---
Demographics + + + | Address | [address] | | | [place] [address] | + + + | Home Phone | | + + + | Preferred Language | Unknown | + + + | Marital Status | | + + + | Pentecostalism Affiliation | Unknown | + + + [...] | + + +---------+ + | Hermelinda Tello | ECON | Unknown | | + + +---------+ + Care Team Providers + +------+ + | Care Slate Worker Name | Role | Phone | + +------+ + PCP | Unavailable | + +------+ + Encounter Details +--------+ + + + + | Date | Type | Department | Care Team | Description | +--------+ + + + + | 03/05/ | Hospital | [facility] | Wing Jennifer Hunter MD | REHABILITATION PROC | | 2002 - | Encounter | [facility] | [address] | PITER | | | | INPATIENT | [place], [place] | | | 03/09/ | | REHABILITATION [address] | [address] | | | 2002 | | [address] | [phone] | | | | | [place], [place] | | | | | | [address] | | | | | | [phone] | | | +--------+ + + + [...] + | Diagnosis | + + | Other specified rehabilitation procedure(V57.89) Other specified rehabilitation | | procedure | + + documented in this encounter"
--- OUTSIDE RECORDS SUMMARY | ~2020-03-03 | XMS | Encounter Summary ---
Demographics + + + | Address | [address] | | | [place] [address] | + + + | Home Phone | | + + + | Preferred Language | Unknown | + + + | Marital Status | | + + + | Anabaptist Affiliation | NON | + + + [...] Team Providers + +------+ + | Care Roving Inspector Name | Role | Phone | + +------+ + PCP | Unavailable | + +------+ + Encounter Details +--------+ + + + + | Date | Type | Department | Care Team | Description | +--------+ + + + + | 06/19/ | Procedure - | | Record, Operation [...] documented as of this encounter Procedure Notes Interface, Pharmacologist In - 11/26/2005 3:[address] [address] [facility] OPERATION RECORD Med Rec No.: [id number] Date: 06/19/2002 Name: Carlos Burns ATTENDING SURGEON: Fozia Crawford M.D., Ph.D. ASSISTANTS: Jerrell Gutierrez M.D. POSTOPERATIVE DIAGNOSIS(ES): Macular hole (full-thickness), right eye. OPERATION PERFORMED: Pars plana vitrectomy with membrane segmentation (peeling of internal limiting membrane), right eye. SPECIMEN(S) REMOVED: None. ANESTHESIA: Retrobulbar anesthesia. COMPLICATIONS: None. ESTIMATED BLOOD LOSS (EBL): Less than 1 cc. FINDINGS: Mr. Burns is a 67-year-old gentleman who has noted a decrease in vision in his right eye and it was noted in the clinic to be the consequence of a full-thickness macular hole. It was decided to repair this surgically. PROCEDURE: After the attainment of informed consent, the patient was taken to the operating room where retrobulbar anesthesia was obtained by delivery 4 cc of a 50:50 mixture of lidocaine and Marcaine into the retrobulbar space via an Lozano needle. After establishment of adequate anesthesia and akinesia, attention was directed towards the right eye into which a wire lid speculum was placed. Slit light conjunctival peritomies were performed in the supertemporal, superonasal, and inferotemporal quadrants so as to expose bare sclera 4 mm posterior to the limbus. Hemostasis was achieved with erasure-type cautery. A 6-0 Vicryl suture was passed mattress fashion in the inferotemporal quadrant 4 mm posterior to the limbus. An MVR blade was used to create a sclerotomy at this site, and a 4.0-mm posterior infusion cannula was placed inside the eye and sewn into place using the aforementioned sutures. Direct transpupillary visualization of the posterior infusion cannula tip disclosed that it was in the posterior cavity, so posterior infusion was turned on. Similar sclerotomies were made at the 2 and 10 o'clock hour positions, again 4 mm posterior to the limbus. A light pipe and microvitrector were placed inside the eye and were used to carry out a thorough pars plana vitrectomy. A fish strike maneuver was performed to detach the posterior hyaloid. After the removal of the vitreous in the posterior hyaloid, indocyanine green dye was placed inside the eye and was allowed to sit there for approximately 2 minutes. Following the placement of the dye, the dye was removed via the vitrector and a barbed MVR blade was used to create a flap of the internal limiting membrane. Using the internal limiting membrane (ILM) forceps, this material was dissected around the entire macula. This included removal of this material around the macular hole. There were no holes, rips, tears, or undue traction made on the retina during any of these maneuvers. After the removal of the internal limiting membrane, a gas/fluid exchange was performed which removed all of the fluid inside the eye. The sclerotomies were sewn closed; however, prior to closing the last sclerotomy, the air inside the eye was exchanged with 10% C3F8 gas. Binocular indirect ophthalmoscopy was performed which revealed a completely attached retina and a good gas fill. The sclerotomies were sewn tight and were noted to be gas tight upon closure. The conjunctiva was sewn closed with 6-0 plain gut suture and the eye received subconjunctival injections of Zinacef and Decadron. Maxitrol was placed in the eye and the eye was patched. Fozia Crawford M.D., PhD JTS:[id number] signed by Cristal Jackson In at 11/26/2005 3:10 AM [facility] Plan of Treatment Not on filedocumented as of this encounter Procedures + +--------+ + + + | Procedure Name | Priori | Date/Time | Associated Diagnosis | Comments | | | ty | | | | + +--------+ + + + | OPERATION RECORD | | 06/19/2002 | | Results for this | | | | | | procedure are in the | | | | | | results section. | + +--------+ + + + documented in this encounter Results OPERATION RECORD (06/19/2002) + + | Transcriptions | + + | Interface, Pharmacologist In - 11/26/2005 3:10 AM PDT | | [facility] [address] | | [place], [place] [address] | | [facility] No[facility] | | [id number] Date: 06/19/2002Name: Carlos Burns SURGEON: | | Fozia Crawford M.D., Ph.D.ASSISTANTS: Sree Olguin | | Jerrell Greer M.D.POSTOPERATIVE | | DIAGNOSIS(ES):Macular hole (full-thickness), right eye.OPERATION PERFORMED:Pars plana | | vitrectomy with membrane segmentation (peeling of internallimiting membrane), right | | eye.SPECIMEN(S) REMOVED:None.ANESTHESIA:Retrobulbar | | anesthesia.COMPLICATIONS:None.ESTIMATED BLOOD LOSS (EBL):Less than 1 cc.FINDINGS: | | Grant is a 67-year-old gentleman who has noted a decrease in vision inhis right eye and | | it was noted in the clinic to be the consequence of afull-thickness macular hole. | | It was decided to repair this surgically.PROCEDURE:After the attainment of informed | | consent, the patient was taken to theoperating room where retrobulbar anesthesia | | was obtained by delivery 4 ccof a 50:50 mixture of lidocaine and Marcaine into the | | retrobulbar space viaan Lozano needle. After establishment of adequate | | anesthesia andakinesia, attention was directed towards the right eye into which a | | wirelid speculum was placed. Slit light conjunctival peritomies were performedin the | | supertemporal, superonasal, and inferotemporal quadrants so as toexpose bare sclera 4 | | mm posterior to the limbus. Hemostasis was achievedwith erasure-type cautery. A 6-0 | | Vicryl suture was passed mattress fashionin the inferotemporal quadrant 4 mm posterior | | to the limbus. An MVR bladewas used to create a sclerotomy at this site, and a | | 4.0-mm posteriorinfusion cannula was placed inside the eye and sewn into place using | | theaforementioned sutures. Direct transpupillary visualization of theposterior | | infusion cannula tip disclosed that it was in the posteriorcavity, so posterior | | infusion was turned on. Similar sclerotomies weremade at the 2 and 10 o'clock hour | | positions, again 4 mm posterior to thelimbus.A light pipe and microvitrector were | | placed inside the eye and were used tocarry out a thorough pars plana vitrectomy. A | | fish strike maneuver wasperformed to detach the posterior hyaloid. After the | | removal of thevitreous in the posterior hyaloid, indocyanine green dye was placed | | insidethe eye and was allowed to sit there for approximately 2 | | minutes.Following the placement of the dye, the dye was removed via the vitrectorand a | | barbed MVR blade was used to create a flap of the internal limitingmembrane. Using | | the internal limiting membrane (ILM) forceps, thismaterial was dissected around | | the entire macula. This included removal ofthis material around the macular hole. | | There were no holes, rips, tears,or undue traction made on the retina during any of | | these maneuvers.After the removal of the internal limiting membrane, a gas/fluid | | exchangewas performed which removed all of the fluid inside the eye. | | Thesclerotomies were sewn closed; however, prior to closing the | | lastsclerotomy, the air inside the eye was exchanged with 10% C3F8 gas.Binocular | | indirect ophthalmoscopy was performed which revealed a completelyattached retina and a | | good gas fill. The sclerotomies were sewn tight andwere noted to be gas tight upon | | closure. The conjunctiva was sewn closedwith 6-0 plain gut suture and the eye | | received subconjunctival injectionsof Zinacef and Decadron. Maxitrol was placed in | | the eye and the eye waspatched.Fozia Crawford M.D., PhDJTS:[id number]: 06/19/2002T: | | 06/20/[id number] | |lid speculum was placed. Slit light conjunctival peritomies were performed | |in the supertemporal, superonasal, and inferotemporal quadrants so as to | |expose bare sclera 4 mm posterior to the limbus. Hemostasis was achieved | |with erasure-type cautery. A 6-0 Vicryl suture was passed mattress fashion | |in the inferotemporal quadrant 4 mm posterior to the limbus. An MVR blade | |was used to create a sclerotomy at this site, and a 4.0-mm posterior | |infusion cannula was placed inside the eye and sewn into place using the | |aforementioned sutures. Direct transpupillary visualization of the | |posterior infusion cannula tip disclosed that it was in the posterior | |cavity, so posterior infusion was turned on. Similar sclerotomies were | |made at the 2 and 10 o'clock hour positions, again 4 mm posterior to the | |limbus. | | | |A light pipe and microvitrector were placed inside the eye and were used to | |carry out a thorough pars plana vitrectomy. A fish strike maneuver was | |performed to detach the posterior hyaloid. After the removal of the | |vitreous in the posterior hyaloid, indocyanine green dye was placed inside | |the eye and was allowed to sit there for approximately 2 minutes. | |Following the placement of the dye, the dye was removed via the vitrector | |and a barbed MVR blade was used to create a flap of the internal limiting | |membrane. Using the internal limiting membrane (ILM) forceps, this | |material was dissected around the entire macula. This included removal of | |this material around the macular hole. There were no holes, rips, tears, | |or undue traction made on the retina during any of these maneuvers. | | | |After the removal of the internal limiting membrane, a gas/fluid exchange | |was performed which removed all of the fluid inside the eye. The | |sclerotomies were sewn closed; however, prior to closing the last | |sclerotomy, the air inside the eye was exchanged with 10% C3F8 gas. | |Binocular indirect ophthalmoscopy was performed which revealed a completely | |attached retina and a good gas fill. The sclerotomies were sewn tight and | |were noted to be gas tight upon closure. The conjunctiva was sewn closed | |with 6-0 plain gut suture and the eye received subconjunctival injections | |of Zinacef and Decadron. Maxitrol was placed in the eye and the eye was | |patched. | | | | | | | |Fozia Crawford M.D., PhD | | | |JTS:[id number] | | | | | |[id number] | + + documented in this encounter Visit Diagnoses Not on filedocumented in this encounter"
--- OUTSIDE RECORDS SUMMARY | ~2020-03-03 | XMS | Encounter Summary ---
Demographics + + + | Address | [address] | | | [place] [address] | + + + | Home Phone | | + + + | Preferred Language | Unknown | + + + | Marital Status | | + + + | Pentecostal Affiliation | NON | + + + [...] Team Providers + +------+ + | Care Enterprise Architect Name | Role | Phone | + [...] | [address] | [place], | | | | | [place], | [place] [address] | | | | | [place] [address] | [phone] | | | | | [phone] | | | +--------+ + + + [...] the past, would like to avoid any PICCOLOIST effects in a patient with recent injury and at relative fall risk (drowsiness, dizziness, e tc.) Patient discussed with attending physician, Dr. Nemyar Evans, who agrees with assessment an d [...] solids, with emphasis on carbohydrates, fruits and "supervisor research shop foods" wh ile ileus continues to resolve [...]
--- OUTSIDE RECORDS SUMMARY | ~2020-03-03 | XMS | Encounter Summary ---
Demographics + + + | Address | [address] | | | [place] [address] | + + + | Home Phone | | + + + | Preferred Language | Unknown | + + + | Marital Status | | + + + | Anglican Affiliation | NON | + + + | Race | White | + + + | Ethnic Group | Not or | + + + Author + + + | Author | [facility] | + + + | Organization | [facility] | + + + | Address | Unknown | + + + | Phone | Unavailable | + + + Support + + +---------+ + | Name | Relationship | Address | Phone | + + +---------+ + | None Per Pt | ECON | Unknown | Unavailable | + + +---------+ + Care Team Providers + +------+ + | Care Load Dispatcher Local Name | Role | Phone | + [...] + + | 05/31/ | Hospital | [facility] [address] | Ashwini Ruggiero MD | | | 2019 - | Encounter | [address] | [address] | | | | | [place], | [facility] [address] | | | 06/06/ | | [place] [address] | [place], [place] | | | 2018 | | [phone] | [address] | | | | | | [phone] | | | | | | | | | | | | Nguyễn Shepard, | | | | | | [address] | | | | | | [facility] [address] | | | | | | [place], [place] | | | | | | [address] | | | | | | [phone] | | | | | | | [...] might be differe nt from the original. [facility] DEPARTMENT OF ORTHOPAEDICS & REHABILITATION INPATIENT HOSPITAL DISCHARGE SUMMARY & INTERDISCIPLINARY INSTRUCTIONS Patient: Lilian Hurst CSN: [id number] Admission Date: 05/31/2018 Discharge Date: 06/06/2018 Attending Physician: Nguyễn Shepard MD PCP: SHAHEEN Love Service: [facility] Orthopaedics & Rehabilitation Diagnoses Principal Final Diagnosis: Left anterior column posterior hemitransverse acetabular fracture (involving 2 columns). Additional Diagnoses: COPD (chronic obstructive pulmonary disease) (HCC) Essential hypertension Physical deconditioning Procedures 06/03/2018 Closed reduction and percutaneous fixation of the left acetabulum. Brief Hospital Course Lilian Hurst is a 83 y.o. male admitted for [...] they suspect your wound is infected. Call [facility] Orthopedics first at [phone]. Activity NON Weight bearing on left leg. For approximately 4 weeks to be determined at postoperative clinic visit. Condition on Discharge Stable Follow-Up Appointments ORTHOPEDICS OUTPATIENT CLINIC: Future Appointments Provider Department Dept Phone Center 07/02/2018 1:40 PM Nguyễn Chance Working Orthopaedics at [facility] [phone] Orthopedics PCP: As needed for any medical [...] mg by mouth once daily at bedtime. [facility] Orthopaedic Service Pain Policy At the 6-week [...] administration instructions. - Call Orthopedic Clinic at [phone] if any persistent, localized swelling that does [...] and ask for the orthopaedic surgery resident sand control worker. Additional Post-Op Instructions / What to Expect [...] feel that you will need more, call [phone] during business hours in order to get [...] a SNF "I certify that post-hospital inpatient halfway facility care is medically necessar y on [...] Condition on Discharge: Improved Discharging Patient To: Jail Facility Date and Time of Discharge Summary Completion: 06/07/2018, 2:45 PM Discharging Provider: ELISE Mckeon Discharging Attending: Nguyễn Shepard MD Thank you for the opportunity to take care of Lilian Hurst during this inpatient stay, it has been our pleasure. ELISE Mckeon [facility] Department of Orthopaedics & Rehabilitation [address] [place] [address] Mail Code: OP31 [facility] [id number] documented in t his encounter Medications at [...] index is 29 kg/m. I/O Intake/Output 06/04 700 - 06/05 0706/05 - 06/06 0706/06 - 06/07 0700 P.O. 320 700 325 I.V. 30 [...] Imaging Interpretation: None today. Assessment and Plan Lilian Hurst is a 83-year-old man with COPD and HTN who presented to an OSH after GLF, found to have left pelvic fracture, transferred to [facility] Orthopedic Surgery service for surg ical management. [facility] initially consulted for pre-operative evaluation. Nausea/Vomiting Presumptive [...] says he uses sparingly. On arrival to [facility] he was on 4 L NC and [...] Sanchez MD Attending Physician Clinical Hospitalist Services [facility] Pager [phone] Please call or page me with any questions or concerns. Doe Newman MD - 06/06/2018 9:11 AM PST Orthopaedic Surgery Progress Note Patient: /Age: MRN: CSN: Date: Admission Date: Hospital Day: Orthopaedic Attending: Lilian Hurst 1935 83 y.o. [id number] 06/06/2018 05/31/2018 6 Nguyễn Shepard MD Diagnosis: 1. Left anterior column posterior hemitransverse acetabular fracture (involving 2 columns). Procedure(s) and Date(s): 06/03/18: 1. Closed reduction, percutaneous fixation left acetabulum Assessment & Plan: Lilian Hurst is a 83 y.o.M with the diagnoses/procedures [...] kg/m. I/O Intake/Output 06/03 700 - 06/04 0700 06/04 07 - 06/05 0700 06/05 0700 P.O. 1300 320 400 [...] Imaging Interpretation: None today. Assessment and Plan Lilian Hurst is a 83-year-old man with COPD and HTN who presented to an OSH after GLF, found to have left pelvic fracture, transferred to [facility] Orthopedic Surgery service for surg ical management. [facility] initially consulted for pre-operative evaluation. Nausea/Vomiting Presumptive [...] says he uses sparingly. On arrival to [facility] he was on 4 L NC and [...] Sanchez MD Attending Physician Clinical Hospitalist Services [facility] Pager [phone] Please call or page me with any questions or concerns. Doe Newman MD - 06/05/2018 7:10 AM PST Orthopaedic Surgery Progress Note Patient: /Age: MRN: CSN: Date: Admission Date: Hospital Day: Orthopaedic Attending: Lilian Hurst 1935 83 y.o. [id number] 06/05/2018 05/31/2018 5 Nguyễn Shepard MD Diagnosis: 1. Left anterior column posterior hemitransverse acetabular fracture (involving 2 columns). Procedure(s) and Date(s): 06/03/18: 1. Closed reduction, percutaneous fixation left acetabulum Assessment & Plan: Lilian Hurst is a 83 y.o.M with the diagnoses/procedures [...] [facility] & FRACTURE, ASAD Conti - (Jie a nd Working) Subjective: Denies any emesis [...] refill < 2 seconds Doe Gongora MD [facility] Department of Orthopaedics & Rehabilitation [address] [place] [address] Mail Code: [address] [place] [address] Kg Snider MD - 06/04/2018 10:03 AM [...] index is 27.41 kg/m. I/O Intake/Output 06/02 0700 06/03 07 - 06/04 0700 06/04 [...] increased bowel gas pattern Assessment and Plan Lilian Hurst is a 83-year-old man with COPD and HTN who presented to an OSH after GLF, found to have left pelvic fracture, transferred to [facility] Orthopedic Surgery service for surg ical management. [facility] initially consulted for pre-operative evaluation. Nausea/Vomiting Emesis [...] says he uses sparingly. On arrival to [facility] he was on 4 L NC and [...] Sanchez MD Attending Physician Clinical Hospitalist Services [facility] Pager [phone] Please call or page me with any questions or concerns. oulton, Devendra Allen MD - 06/04/2018 7:48 AM PST Orthopaedic Surgery Progress Note Patient: /Age: MRN: CSN: Date: Admission Date: Hospital Day: Orthopaedic Attending: Lilian Hurst 1935 83 y.o. [id number] 06/04/2018 05/31/2018 4 Nguyễn Shepard MD Diagnosis: 1. Left anterior column posterior hemitransverse acetabular fracture (involving 2 columns). Procedure(s) and Date(s): 06/03/18: 1. Closed reduction, percutaneous fixation left acetabulum Assessment & Plan: Lilian Hurst is a 83 y.o.M with the diagnoses/procedures [...] with ORTHO TRAUMA & FRACTURE, Ana Gill, CHERRY CUTTER - (Jie a nd Working) Subjective: Has had some dark brown emesis [...] refill < 2 seconds Doe Gongora MD [facility] Department of Orthopaedics & Rehabilitation [address] [place] [address] Mail Code: OP31 [facility] [id number] Devendra Scales MD - 06/03/2018 8:32 PM PST [facility] DEPARTMENT OF ORTHOPAEDICS & REHABILITATION POST-OPERATIVE CHECK Patient: Lilian Hurst Date: 06/03/2018 Admitted: 05/31/2018 Hospital Day: 3 Attending Physician: Nguyễn Shepard MD Diagnosis(es): Left anterior column posterior hemitransverse acetabular fracture (involving 2 columns). Orthopaedic Procedure(s): Closed reduction and percutaneous fixation of the left acetabulum Subjective: Lilian Hurst is a 83 y.o. male who is [...] < 2 seco nds Assessment & Plan: Lilian Hurst is a 83 y.o.M with the diagnoses/procedures listed above, experiencing a( an) At Expected Level postoperative course. POSTOPERATIVE PLAN: - Please refer to brief operative note for complete details of the post-operative plan. Devendra Da Silva MD Orthopaedic Surgery Resident 06/03/2018, 8:33 PM [facility] Department of Orthopaedics & Rehabilitation [address] [place] [address] Mail Code: OP31 [facility] [id number] Jade Messina MD - 06/02/2018 8:36 AM [...] intact at plantar and dorsal foot A/P: Lilian Hurst is a 83 y.o. male with left [...] Please call Orthopaedic Trauma and Fracture at [phone] to schedule a followup within 2 weeks from discharge. ALEXA SEARS MD Pager: [phone] 06/02/2018 Doe Newman MD - 06/01/2018 8:27 AM PST Orthopaedic Surgery Progress Note Patient: /Age: MRN: CSN: Date: Admission Date: Hospital Day: Orthopaedic Attending: Lilian Hurst 1935 83 y.o. [id number] 06/01/2018 05/31/2018 1 Nguyễn Shepard MD Diagnosis: 1. Left Acetabulum Fracture 2. Left Inferior Pubic Ramus Fracture Procedure(s) and Date(s): Plan for OR Sunday for perc vs open left acetabular reduction/fixation Assessment & Plan: Lilian Hurst is a 83 y.o.M with the diagnoses/procedures [...] to make a follow up appointment in [facility] 2-3 weeks with ORTHO TRAUMA & FRACTURE, [...] seconds Reflexes: not performed Doe Gongora MD [facility] Department of Orthopaedics & Rehabilitation [address] [place] [address] Mail Code: OP31 [facility] [address] documented in this enco unter Procedure Notes Drea, Nguyễn Chance MD - 06/03/2018 4:58 PM PSTAssociated Order(s): OPERATION RECORDProced ure(s): [place] OPEN COMMERCIAL LOAN CLOSER FIX COMPLEX ACETABUL FXPre-Procedure Diagnose(s): Closed fracture of both anterior and posterior columns of left acetabulum (HCC)Post-Procedure Diagnose(s): Clos ed fracture of both anterior and posterior columns of left acetabulum (HCC)Date of Service: 06/03/2018 Attending Surgeon: Nguyễn Shepard MD Fern Picker(s): Devendra Da Silva MD. Preoperative Diagnosis: Left anterior column posterior hemitransverse acetabular fracture (involving 2 columns). Postoperative Diagnosis: Left anterior column posterior hemitransverse acetabular fracture (involving 2 columns). Procedure Performed: Closed reduction and percutaneous fixation of the left acetabulum. Anesthesia Type: General. Blood Loss: 100 cc. Intravenous Fluids: See anesthesia record. Urine Output: See anesthesia record. Tourniquet Time: None. Complications: None immediately apparent. Orthopedic Implants: Synthes 6.5 and 7.3 mm screws. Specimens: None. Drains: None. Findings In Brief: Reduce-able acetabulum. Operating Room Disposition: Transferred from the OR in stable condition. Indications: Lilian Hurst is an 83-year-old male. He sustained a left anterior column pos terior kojo transverse acetabular fracture over the weekend. I met him on Sunday and we d iscussed the need for surgery but needing a specialized surgical solution. He has a number of displaced fracture lines within the articular surface - it would not have broken like thi s if he didn't already have hip hardware in place on the left as he would have sustained a h ip fracture instead of an acetabular fracture. He is a man with a number of medical comorbi dities, and I think it will be difficult for him to sustain a full acetabular operation due to the blood loss. As such, we are going to attempt to do him percutaneously. He understan ds and has consented. He understands that the risks of the operation today include nonunion , malunion, loss of reduction, breakage of hardware, need for repeat surgery, and infection, and the risks of anesthesia including . He consented. Description Of Procedure: Lilian was brought back to the operative table. General endotr acheal anesthesia was induced. He was transferred to the O[facility] flat [facility]. A sacral bump consi sting of 5 squared off sheets and packed down was placed underneath the sacrum to elevate th e limb. He was prepped and draped in the normal sterile fashion while maintaining that we w ould be able to access the posterior column to the ischial tuberosity during the case. A ti me-out was performed in accordance with protocol. We began by performing a few AP inlet and outlet fluoroscopy shots to verify whether the laurie int could be improved in its reduction. We pulled simple manual traction on the leg just as a test, and we were able to demonstrate that we could reduce his medialized femoral head at the acetabulum with the femoral head. As such, we placed distal femoral traction consistin g of a skinny wire hung off sterile rope with 30 pounds of traction placed. This reduced th e acetabulum quite nicely. We did not need additional femoral neck traction, and I did not think it would be worth it. We would perhaps have been able to improve 1 mm in his joint, b ut we would have had to thread a pin through the DHS site. We were able to start with our a nterior column screw. The anterior column screw was obtained using the inlet imaging and th e obturator oblique outlet imaging on fluoroscopy. We were able to place a cannulated wire across and past the acetabulum, and we measured 160 mm screw length and we placed a 6.5 mm s crew of that length. Fluoroscopy confirmed we stayed out of the joint. We then proceeded t o the AIIS for the start point for the LC2 screw. The start point was obtained on the obtur ator oblique outlet, and then we used the 2 orthogonal views of the iliac oblique and an obt urator oblique inlet to verify wire placement. This wire was placed essentially down betwee n the inner and outer tables of the iliac wing and seated in the PIIS posteriorly. Once we passed this wire, we were able to measure a length of 135 mm, and I placed a 7.3 mm fully-th readed cannulated screw here. We then took traction off and verified that the fracture did not displace. We then placed a posterior column screw through a posterior starting point. We flexed the hip up and placed the start point on the ischial tuberosity. I used 2 views a gain after the screw including the iliac oblique and the obturator oblique outlet. It certa inly made things easier to have C-arm come in from the contralateral limb specifically for t his iliac oblique imaging. We were able to safely place a wire behind the acetabulum and up the entirety of the posterior column, and I measured 160 mm. I placed a fully-threaded 7.3 mm screw in this corridor. We then laid the patient flat and took final imaging including 5 views of the left acetabulum. All counts were correct. I was present for all portions of the case. We then irrigated all 3 small percutaneous wounds and closed using buried 2-0 Ma xon and Dermabond. Mepilex was placed on all 3 incisions. The patient was awoken from [facility] endotracheal anesthesia and transferred to the hospital bed and wheeled to the PACU in s table condition. Future Plans: Lilian is going to be nonweightbearing on this left lower extremity for sher roximately 4 weeks. I am going to let him weightbear after that. We are going to have a di scussion with Medicine about the risks and benefits of anticoagulation. Normally, we antico agulate prophylactically for 6 weeks after pelvis and acetabular fractures, but he is a anil le on the elderly side and I am concerned about his head bleed risk. Finally, we are going to get a postop CT to evaluate the position of our screws. I am going to see him in followu p in 4 weeks, at which time we will make our final consideration of mobilization and I need for this patient 5 views of the pelvis including AP, inlet, outlet, and 2 Judet views. Complexity note: Please note the care of this patient is far more difficult than a standard acetabular fracture. The patient has complicated care needs affecting the pre-, intra- and post- operative phases of care. He is a medically complicated patient with CHF, afib/flutte r requiring telemetry with runs of Vtach intermittently on the floor. Due to the complexity of the problem was referred to my care at [facility] by another orthopaedic surgeon. The patient i s from the [facility] and traveled many miles to get to [facility], bypassing several other spitals due to the complexity of injury and need for specialized care. This requirede addit ional preoperative care and planning to be ready for surgery today. We are not able to fix t his in a standard fashion using conventional open reduction techniques out of concern for th is man's inability to sustain an open operation given his cardiac condition and the high ris k of intraoperative complication. We therefore used highly technical percutaneous techniques for which surgeons have to attend perhaps one of a handful of specialized orthopaedic traum a fellowships to learn. The technique requires quite a long time to ensure that it is done s afely without further damage to the joint surface. [facility]int [facility] post[facility] care more difficult to render, and is quite noncompliant due to a comb ination of dementia and stubbornness which increases the risk of post operative complication dramatically. Please reflect all of this in the nature of the patients care. MD RAMA Altamirano/PRINCE /[id number] documented in this encounter Consult Notes Teresita Bobo PA-C - 06/05/2018 9:22 PM PSTINPATIENT GERIATRICS CONSULT - FOLLOW U P Admission Date: 05/31/2018 Hospital Day: 5 Referring Provider: Nguyễn Shepard MD Consulting Provider: TERESITA BOBO PA-C PCP: SHAHEEN Gustafson Consult Question: frailty and delirium management ID: Lilian Hurst (Frank) is an 83 y.o. 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 Geriatrics consulted for assistance in delirium management in a potentially frail older adult. ASSESSMENT: Acute toxic metabolic encephalopathy (resolved); closed acetabular fracture; ac wrangell fracture pain; high risk for hospital-associated deconditioning RECOMMENDATIONS: - Continue careful and regular pain control with oxycodone 5 mg Q4hrs PRN, scheduled Tylen ol. - Continue to cluster care overnight to protect sleep and to prevent delirium recurrence. - Assist OOB BID-TID (via sling or stand pivot) as this allows Carlos "to feel like a human again." We will sign off. Please page consult pager [phone] if new questions for the geriatrics team arise. Thank you for involving us in the care of Mr. Hurst. Interval events: No acute events. Remains on 9K. Since yesterday has had improvement in a bdominal pain, no further N/V. Had two small bowel movements today. Subjective: Feels he slept 'all right' last night. Looking forward to working with PT tod edmund, easily recalls his relative success with standing yesterday. Was up to the commode via sling earlier, felt "human again." Spirits remain overall low but he acknowledges that he i s closer to leaving the hospital today and this is encouraging. Reports pain has been well controlled overall (except when he was on the bedpan for an extended period earlier) with ne ar regular dosing of oxycodone. On exam, Carlos is alert, readily engaging and talkative. Lying supine in bed, in NAD. Abl e to find and maneuver remote easily at suggestion for lights. Breathing easily first on r oom air (NC up over bridge of nose), then on 2L. Attention largely intact, able to spell FR ANCIS in reverse transposing only two letters and acknowledging error. Oriented to date, da y of week, location. Speech clear, movements purposeful, conversation linear. Data: Labs reviewed, H&H stable (12.9->12.1), CMP unremarkable. No new imaging. Care Team Coodination: Discussed with Hallie Heaton (ortho ACNP), PT Sherly Ellison I spent 22 minutes in xguc-[id number] care of Mr Hurst and in discussion on his unit with other providers, with > 50% in counseling/coordination of care regarding delirium management and prevention, pain control, mobility, and chart review and documentation on the unit. ROBEL Mohan PA-C Inpatient Geriatrics Consult Service Division of Internal Medicine & Geriatrics [facility] Pager: [phone] Shannon Can H - 06/04/2018 6:04 PM PST Medical Student Gastroenterology Consult Note 06/04/2018 REASON FOR CONSULT: brown / black emesis concerning for GI bleed REFERRING TEAM/ATTENDING: [facility] / Daniel BAUTISTA IMPRESSION Resolving postoperative ileus in a hemodynamically stable 83 yo M with significant cardiac history and hemodynamically significant esophageal bleed in 2013. Given the patient's stable hematocrit, brown / yellow stool with dark matter, and emesis th at is not consistent with hematemesis, EGD is unlikely to change the management of this rl ent. His episodes of arrhythmia and his age both increase the risk of sedation. KUB X-R was consistent with ileus which likely resulted in feculent emesis. Soumya-Magaña tear was also considered. RECOMMENDATIONS 1. Low threshold for NG decompression if patient fails to improve with conservative managem ent 2. OK to continue enoxaparin DVT prophylaxis 3. Encourage ambulation for ROBF 4. IV pantoprazole 40 mg daily until PO is well tolerated. Thank you for this consult; we will sign off now. This plan was discussed and formulated wi th the gastroenterology attending, Dr. Nguyen. Jose Guadalupe Santiago Jose Guadalupe Terriluann, MS4 Pgr [phone] HISTORY OF PRESENT ILLNESS Lilian Hurst is a 83 y.o. male with a past medical history significant for hemodynamic ally significant gastrointestinal bleed in 2013 on omeprazole, ongoing SVT, choledocholithia sis and cholangitis with ERCP s/p sphincterotomy and stenting on 06/2017, cholecystectomy, as piration pneumonitis, COPD, and hypertension. He was transferred to [facility] for left pelvic fracture now s/p left acetabulum closed reductio n w/percutaneous fixation and 100cc blood loss on 06/03. Last bowel movement was on 06/03 prior to his surgery, though he has been passing gas since then. He ate on 06/03 in the evening, and was unable to tolerate food on 06/04 due to his ongo ing nausea. On 06/04, he experienced three episodes of emesis with "coffee grounds" appearanc e and epigastric pain radiating to his chest and along his costal margin that is most promin ent inferior to the xyphoid process. As of the evening of 06/04, he endorsed the sensation of needing to burp and endorses reflux with bad taste in his mouth; until his surgery, he had not experienced symptoms of reflux for years. He missed two doses total of his home omeprazole 40mg that he takes before bedtime. As of 06/05: gelatin for breakfast was well tolerated. He no longer endorses symptoms of ref lux and has diminished epigastric pain with remarkable peristalsis; he was experiencing the urge to defecate at the time of patient interview. He does not use home oxygen. REVIEW OF SYSTEMS Negative except for that which is mentioned in the HPI. PAST MEDICAL HISTORY Past Medical History: Diagnosis Date COPD (chronic obstructive pulmonary disease) (HCC) GI bleed 2013 esophageal ulcer s/p clipping 2013 HTN (hypertension) Normocytic anemia Hgb around 11 in 2013 Prediabetes SVT (supraventricular tachycardia) (HCC) unclear hx. "Possible SVT" per chart in 2012. FAMILY HISTORY Non-contributory. SOCIAL HISTORY Social History Social History Marital status: Spouse name: N/A Number of children: N/A Years of education: N/A Social History Main Topics Smoking status: Former Smoker Smokeless tobacco: Not on file Comment: per chart. Cannot verify right now pt intubated. Alcohol use Yes Comment: occasional Drug use: Unknown Sexual activity: Not on file Other Topics Concern Not on file Social History Narrative Originally from [place], [place], but moved for a time in his teens to [facility]. 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 Enjoys [employer] his garden each summer, watching westerns, and game shows. Lives in his own home next doo r to his daughter with his Mirian saez. Typical day: wakes at 6 am, putters in the kitchen; breakfast is two homemade oatmeal cook ies, coffee and tangerines. DogMirian wakes around 9 and he feeds her. Spends a few hours on Facebook "to see what everyone is talking about," then gets dressed and goes out to take care of his chickens. Remainder of the day is spent on errands, fixing up the home, etc. Sees daughterMarianna, regularly. OUTPATIENT MEDICATIONS No current facility-administered medications on file prior to encounter. Current Outpatient Prescriptions on File Prior to Encounter Medication Sig Dispense Refill furosemide 20 mg oral tablet Take 20 mg by mouth once daily. lisinopril 20 mg oral tablet Take 20 mg by mouth once daily. omeprazole 40 mg oral capsule,delayed release(DR/EC) Take 40 mg by mouth once daily in the morning. pravastatin 10 mg oral tablet Take 10 mg by mouth once daily at bedtime. INPATIENT MEDICATIONS acetaminophen (TYLENOL) tablet 1,000 mg, 1,000 mg, oral, TID albuterol 0.083% (PROVENTIL,VENTOLIN) 2.5 mg /3 mL (0.083 %) nebulizer solution 2.5 mg, 2.5 mg, inhalation, Q4H PRN bisacodyl (DULCOLAX) suppository 10 mg, 10 mg, rectal, DAILY PRN bisacodyl EC (DULCOLAX) tablet 10 mg, 10 mg, oral, DAILY calcium carbonate chewable (TUMS) tablet 400 mg elemental, 1,000 mg total salt, oral, Q2H P RN enoxaparin (LOVENOX) injection 40 mg, 40 mg, subcutaneous, QPM guaiFENesin LA (MUCINEX) tablet 600 mg, 600 mg, oral, BID HYDROmorphone (DILAUDID) injection 0.2-0.4 mg, 0.2-0.4 mg, intravenous, Q2H PRN lactated Ringers IV, 100 mL/hr, intravenous, CONTINUOUS metoprolol tartrate (LOPRESSOR) tablet 6.25 mg, 6.25 mg, oral, BID naloxone (NARCAN) injection, , intravenous, PRN omeprazole (PRILOSEC) capsule 40 mg, 40 mg, oral, HS ondansetron (ZOFRAN) injection 4 mg, 4 mg, intravenous, Q12H PRN ondansetron (ZOFRAN) tablet 8 mg, 8 mg, oral, Q12H PRN oxyCODONE (immediate release) (ROXICODONE) tablet 5-10 mg, 5-10 mg, oral, Q4H PRN polyethylene glycol (MIRALAX) packet 17 g, 17 g, oral, DAILY polyethylene glycol (MIRALAX) packet 34 g, 34 g, oral, TID PRN pravastatin (PRAVACHOL) tablet 10 mg, 10 mg, oral, QPM prochlorperazine (COMPAZINE) injection 5-10 mg, 5-10 mg, intravenous, Q6H PRN prochlorperazine (COMPAZINE) tablet 5-10 mg, 5-10 mg, oral, Q6H PRN senna-docusate (SENOKOT S) 8.6-50 mg 2 tablet, 2 tablet, oral, BID ALLERGIES: Allergies Allergen Reactions Aromatic Dyspnea Budesonide-Formoterol Dyspnea "I can't breathe when I use it." Fluticasone-Salmeterol Dyspnea "I can't breathe when I use it." Eucalyptus Dyspnea Fluticasone Dyspnea Hydrochlorothiazide Rash PHYSICAL EXAM BP 128/71 | Pulse 65 | Temp 36.6 C (97.9 F) | RR 16 | Ht 1.702 m (5' 7") | Wt 79.4 kg ( 175 lb) | SpO2 93% | BMI 27.41 kg/(m^2): Systolic (24hrs), Av , Min:109 , Max:151 / Di astolic (24hrs), Av, Min:54, Max:90 Pulse Av.2 Min: 61 Max: 97 Temp Av.7 C (98.1 F) Min: 36.5 C (97.7 F) Max: 37.2 C (99 F) Resp Av.3 Min: 14 Max: 20 SpO2 Av.6 % Min: 92 % Max: 99 % GEN Elderly frail and tired appearing gentleman in no acute distress HEENT Anicteric, acyanotic. LUNG Breathing comfortably with nasal cannula in place CV RRR no m/r/g ABD Slightly firm and mildly distended with tenderness to deep palpation in upper quadrants. N egative Keita. Stigmata of prior cholecystectomy present. Yellow-brown stool in vault with dark matter. NEURO Alert and oriented, appropriate affect SKIN Scattered ecchymosis in UEs LABS and IMAGING CBC with diff last 72 hours (or 3 results) Recent Labs 06/03/18 0651 06/04/18 0937 06/04/18 1517 WBC 10.86* 8.46 8.76 HB 13.1* 11.8* 12.9* HCT 39.9* 35.7* 39.7* PLT 126* 120* 150 Recent Labs 06/02/18 0619 06/03/18 0651 06/03/18 1101 06/03/18 1450 06/04/18 0937 NA 134* 133* -- -- 134* K 4.1 4.3 -- -- 4.2 CL 101 100 -- -- 98 BICARB 29 26 -- -- 29 BUN 27* 19 -- -- 18 CR 0.80 0.68* -- -- 0.58* GLU 119* 109* 115* 132* 134* CA 8.2* 8.2* -- -- 8.0* ANIONGAP 4 7 -- -- 7 Relevant chart history: Iban Medina MD - 08/13/2013 8:43 AM PDT Formatting of this note may be different from the original. HOSPITALIST DISCHARGE SUMMARY Patient ID: Lilian Hurst [id number] 78 y.o. 1935 Admit date: 08/10/2013 Discharge date and time: 08/13/2013 1:00 PM Admitting Physician: Sudeep Sarabia MD Discharge Physician: IBAN MEDINA MD Primary Discharge Diagnoses: HTN (hypertension) [401.9] GI bleed [578.9] Lower abdominal pain [789.09] Discharged Condition: Stable for D/c as STATED BELOW. HPI and Hospital Course: A 78-year-old male with past medical history of hypertension, COPD. He presented with vomit ing blood. The patient had some dizziness and had an episode of sudden nausea and hematemesi s prior to arrival in the emergency room. The patient had substantial blood loss. The patien t was brought to [facility] and was transferred to [facility] for a GI evaluation. Dr. Ca from gastroenterology was consulted because of the ac wrangell GI bleed. The patient was started on IV proton pump inhibitors. Dr. Ca perfor med an endoscopy which showed an esophageal ulcer. The ulcer had a non-bleeding visible bloo d vessel at the distal esophagus. The ulcer was injected with epinephrine and treated with E ndoclips. There was a large blood clot found in the gastric fundus. Gastric mucosa was coate d with black liquid. After the treatment with endoscopy the patient was transferred to the [facility] floor. Serial hemoglobin and hematocrit were checked. The patient was kept on IV p roton pump inhibitor. He did well. Hemoglobin remained fairly stable. He does have some cary k stools on-and-off but his hemoglobin has been stable and this is expected. He has not had any active bleed. Discussed with Dr. Ca today and he is okay with discharging the patient since has remained stable for 72 hours after he presented with the bleed. Dr. Veronica rosario recommended to switch him to omeprazole 20 mg twice a day which was done yesterday and he did well on that. I will discharge him with omeprazole 20 mg twice a day to be contin ued. Dr. Ca will follow him up in a couple of weeks. Instructed this to the patie nt. For now, we are going to hold off on aspirin. The patient can be restarted once cleared by Dr. Ca. The patient was on aspirin because of his possible episode of supraven tricular tachycardia last year. He denies ever having any heart attack. The patient was in n ormal sinus rhythm while in the hospital. The patient also was taking a large dose of Lasix. Currently he does not have any swelling of the lower extremities. I have advised him to cut down on his Lasix to 20 mg daily, and followup with his primary care physician. The patient can continue the rest of his medications. The patient has no symptoms at this time, was varsha y eager to get discharged. He will need to follow up with his primary physician and Dr. Pancho ta for followup. Associated attestation - Usman Nguyen Jr., MD - 06/05/2018 7:03 PM [employer] student sammi hale with documenting this service. I saw the patient and reviewed and verified all informati on documented by the student and made modifications to such information, when appropriate. Patient now with no further bleeding and passing bowel gas. Advance diet as tolerated. No plans for endoscopy at this time. Thank you for the opportunity to assist in the care of this patient. Please call with questions or concerns. Teresita Bobo PA-C - 06/04/2018 2:41 PM PSTAssociated Order(s): IP CONSULT TO [facility] INPATIENT GERIATRICS CONSULT - INITIAL Admission Date: 05/31/2018 Hospital Day: 4 Date of Service: 06/04/18 Referring Provider: Nguyễn Shepard MD Consulting Provider: TERESITA BOBO PA-C PCP: SHAHEEN Gustafson Consult Question: frailty and delirium management ID: Lilian "Carlos" Grant is an 83 y.o. 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 Geriatrics consulted for assistance in delirium management in a potentially frail older adult. SUMMARY OF RECOMMENDATIONS: - Draw serum D, replete if less than 30. - DC continuous pulse oximeter. Continue to measure O2 sats with vitals. - Continue to use ondansetron as first line for nausea PRN, as prochlorperazine and compaz ine can both worsen delirium. - Cluster care to allow for sleep; do not wake for routine vitals 10p-6a unless clinical n eed arises. - Continue to avoid other deliriogenic medications (anticholinergics, high dose opiates, a ntispasmodics, hypnotics, muscle relaxants, benzodiazepines). - No need for antipsychotics unless Carlos poses a direct risk of harm to himself or others . - Expect Carlos BATRES to chair TID and for each meal. Will engage geriatric volunteers to of larisa ride off the unit daily starting tomorrow. - Entire care team encouraged to promote day-night cycle by keeping shades up, lights on d uring day and discouraging long periods of sleep; then ensuring a quiet, dark environment at night. - Reassess tethers/lines daily and DC as able. May be prudent to DC telemetry tomorrow pe nding course. ASSESSMENT: #Acute toxic metabolic encephalopathy, improving #Procedural sedation #Acute fracture pain #Mkt-[id number]-[id number] status Suspect that Carlos exhibited acute hyperactive delirium secondary to several days of bedres t and poor sleep followed by procedural sedation and acute post-op pain. Now improving and as of this afternoon's exam, does not show any deficits on orientation or attention question ing. Remains very high risk for delirium recurrence; thus will employ all preventive measur es as outlined above. Will continue scheduled Tylenol and oxycodone 5 mg Q4 hrs PRN. #High risk for hospital-associated deconditioning With four days in bed, likely has suffered some acute deconditioning today but able to drew d and transfer today with PT. Will continue daily transfers as tolerated while NWB. Apprec iate PT recs. #Hypovitaminosis D #History of femoral fracture #Closed acetabular fracture Had a vitamin D level drawn last year at <10; now with acetabular fracture recommend repeat level to determine need for potential high dose replacement. Past hip fracture reportedly was suffered from a fall of 20 feet. #Transitions of care Daughter hopeful that Carlos may get to rehab in the [place] area prior to being transporte d home by family. Care Team Coordination: Discussed with Hallie CONNELL (ortho), RN Obdulia, PT susan Tejada RN Rosita Paul; background information collected by Rosita via discussion with Marianna ospina Please call with any questions or concerns. We will continue to follow. I spent 117 minutes with the patient and on his floor, with over 50% in counseling/coordati on of care including discussion of delirium management, acute fracture pain, deconditioning, transitions of care, comprehensive geriatric assessment, chart review and documentation on the unit. TERESITA BOBO PA-C Inpatient Geriatrics Consult Service Pager [phone] Consult Pager [phone] HPI: Lilian Hurst is an 83 y.o.man with the above comorbidities admitted 05/31/2018 with a c omplex acetabular fracture. History today provided by Carlos, discussion with his daughter, Sherman segura, discussion with his primary team and floor staff as well as review of inpatient and ou tpatient records. In brief, was transferred here on 05/31 for management of a complex acetabular fracture. Per primary team, appeared cognitively clear and following commands, participating easily prior to surgery. Admitted Sunday and was then supine for four days, intermittently in traction while awaiting percutaneous screw fixation on Sunday. Perioperatively received 1.3 mg IV hyd romorphone and 450 mcg fentanyl. Returned to the floor yesterday intermittently lethargic, "agitated" and disoriented to time and place; this morning was "totally confused." Receive d 2.5 mg IV haloperidol yesterday afternoon with results not well documented. Over the cour se of the day today has become increasingly clear and oriented. Is independent in IADLs at baseline. Son and daughter were present earlier today and have now returned to [facility]. Had onset of abdominal pain and bloating this morning followed by coffee ground emesis. Street d multiple loose stools throughout the day 06/02 and overnight to 06/03, incontinent at times; thus held bowel meds evening 06/03. No BM last two days. Has been NPO since this morning. Carlos is quick to point out that he did not receive his omeprazole for a few days after adm ission and he has been told in the past "never to miss a dose." By the time of our interview mid afternoon today, Carlos states he is overall feeling well, save the continued bloating and epigastric pain. He has just transferred to the chair with PT and says "it went great - feels so good to be sitting up." He admits his mind feels "a l ittle confused" and he is very tired, intermittently closing his eyes during our discussion, though able to answer every question fully and maintain attention throughout. He does not recall any events of yesterday but is aware he had surgery. Reports he has slept very poorl y for several nights in a row. Finds the pulse oximeter very distracting. Feels his hip pa in has been well controlled today and is comfortable "with just a little ache" after moving to the chair. He has no other concerns. PMH: Past Medical History: Diagnosis Date COPD (chronic obstructive pulmonary disease) ([facility]) GI bleed 2013 esophageal ulcer s/p clipping 2013 HTN (hypertension) Normocytic anemia Hgb around 11 in 2013 Prediabetes SVT (supraventricular tachycardia) ([facility]) unclear hx. "Possible SVT" per chart in 2012. Additional PMH per CareEverywhere records: Atrial fibrillation ([facility]) Choledocholithiasis Crush injury lower extremities 1965 Left leg and foot Diverticulosis of colon Hip fracture ([facility]) 2002 Left Hyperlipidemia Inguinal hernia Osteoarthritis, generalized Panic disorder without agoraphobia Raynaud's syndrome Renal cyst, right Retinal detachment Right Right bundle branch block PSH: Past Surgical History Procedure Laterality Date Treatment of fracture of lower leg 2003 Right knee surgery knee cap surgery Ankle surgery left ankle crushed in accident Back surgery 1980 Outpatient Meds: Prior to Admission Medications Prescriptions dilTIAZem CD 24 hour release 240 mg oral capsule,extended release 24hr Sig: Take 240 mg by mouth once daily. furosemide 20 mg oral tablet Sig: Take 20 mg by mouth once daily. lisinopril 20 mg oral tablet Sig: Take 20 mg by mouth once daily. omeprazole 40 mg oral capsule,delayed release(DR/EC) Sig: Take 40 mg by mouth once daily in the morning. pravastatin 10 mg oral tablet Sig: Take 10 mg by mouth once daily at bedtime. Facility-Administered Medications: None Current Inpatient Meds: Current Facility-Administered Medications Medication Dose Route Frequency Last Rate acetaminophen (TYLENOL) tablet 1,000 mg 1,000 mg oral TID bisacodyl EC (DULCOLAX) tablet 10 mg 10 mg oral DAILY enoxaparin (LOVENOX) injection 40 mg 40 mg subcutaneous QPM furosemide (LASIX) tablet 20 mg 20 mg oral DAILY guaiFENesin LA (MUCINEX) tablet 600 mg 600 mg oral BID metoprolol tartrate (LOPRESSOR) tablet 6.25 mg 6.25 mg oral BID omeprazole (PRILOSEC) capsule 40 mg 40 mg oral BEFORE BREAKFAST polyethylene glycol (MIRALAX) packet 17 g 17 g oral DAILY pravastatin (PRAVACHOL) tablet 10 mg 10 mg oral QPM senna-docusate (SENOKOT S) 8.6-50 mg 2 tablet 2 tablet oral BID Current Facility-Administered Medications Medication Dose Route Frequency Last Rate albuterol 0.083% (PROVENTIL,VENTOLIN) 2.5 mg /3 mL (0.083 %) nebulizer solution 2.5 mg 2.5 mg inhalation Q4H PRN bisacodyl (DULCOLAX) suppository 10 mg 10 mg rectal DAILY PRN calcium carbonate chewable (TUMS) tablet 400 mg elemental 1,000 mg total salt oral Q2H PRN HYDROmorphone (DILAUDID) injection 0.2-0.4 mg 0.2-0.4 mg intravenous Q2H PRN naloxone (NARCAN) injection intravenous PRN ondansetron (ZOFRAN) injection 4 mg 4 mg intravenous Q12H PRN ondansetron (ZOFRAN) tablet 8 mg 8 mg oral Q12H PRN oxyCODONE (immediate release) (ROXICODONE) tablet 5-10 mg 5-10 mg oral Q4H PRN polyethylene glycol (MIRALAX) packet 34 g 34 g oral TID PRN prochlorperazine (COMPAZINE) injection 5-10 mg 5-10 mg intravenous Q6H PRN prochlorperazine (COMPAZINE) tablet 5-10 mg 5-10 mg oral Q6H PRN Social Hx: Social History Social History Narrative Originally from [place], [place], but moved for a time in his teens to [facility]. 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 Enjoys [employer] his garden each summer, watching westerns, and game shows. Lives in his own home next doo r to his daughter with his Mirian saez. Typical day: wakes at 6 am, putters in the kitchen; breakfast is two homemade oatmeal cook ies, coffee and tangerines. Mirian De Anda wakes around 9 and he feeds her. Spends a few hours on [employer] "to see what everyone is talking about," then gets dressed and goes out to take care of his chickens. Remainder of the day is spent on errands, fixing up the home, etc. Sees daughterMarianna, regularly. GERIATRIC REVIEW OF SYSTEMS ADLs: independent IADLs: independent Living situation/Caregiver: lives alone in his own home next door to his daughter Marianna Driving Status - Drives: yes Concerns/Issues: none Medications: self administers without difficulty HEENT - Hearing Impaired: yes Corrected with: no correction Vision Impaired: yes Corrected with: bifocal Mastication/Swallowing Dentures/partials: none Choking/gagging/coughing: none, but has painful crown Gastrointestinal - Nutrition Normal taste/smell: yes Weight loss/gain: none Bowel habits Incontinence: none Constipation: none Genitourinary - Incontinence: none Urgency/frequency/leaking urine: endorses frequency, no leaking Musculoskeletal - Falls: 2 in last year. 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 HEENT: Visual nguyen grossly full. Bifocals in place. Oropharynx with moist mucous membran es, non-erythematous, no exudate. RESIGHINI. Dentition in fair repair. Cardiovascular: RRR with intermittent ectopic beats, no murmurs/rubs/gallops. No lower extr emity edema. Respiratory: Decreased breath sounds in bases L>R, otherwise clear. Breathing comfortably o n 2LPM by NC. Skin: Warm, dry, without rashes. Nails well trimmed. Neuro: Orientation: Oriented to self, location ("[facility], room 3"), date, year, president and reason for admission. Level of Consciousness: alert and able to maintain conversation throughout but closes ey es intermittently, endorsing fatigue Appearance/Behavior: fair to good eye contact; no psychomotor agitation Speech: normal volume, normal rate, good spontaneous speech, no dysarthria Thought Process: linear Delusions: none apparent Mood: euthymic, calm Attention: intact (recites days of week in reverse without error) Insight: fair to good Functional Assessment: Worked with PT this afternoon, able to stand and pivot to chair whil e adhering to NWB instructions. LABS Chemistries: Last 72 Hours (or 3 results): Recent Labs 06/02/18 0619 06/03/18 0651 06/03/18 1101 06/03/18 1450 06/03/18 1637 06/04/18 0937 NA 134* 133* -- -- -- 134* K 4.1 4.3 -- -- -- 4.2 CL 101 100 -- -- -- 98 BICARB 29 26 -- -- -- 29 BUN 27* 19 -- -- -- 18 CR 0.80 0.68* -- -- -- 0.58* GLU 119* 109* 115* 132* -- 134* CA 8.2* 8.2* -- -- -- 8.0* MG 1.9 -- -- -- 1.9 -- Estimated Creatinine Clearance: 97.5 mL/min (A) (based on SCr of 0.58 mg/dL (L)). CBC with diff last 72 hours (or 3 results) Recent Labs 06/02/18 0606/03/18 0651 06/04/18 0937 WBC 11.59* 10.86* 8.46 HB 12.8* 13.1* 11.8* HCT 39.8* 39.9* 35.7* PLT 90* 126* 120* No results found for: TSH Lab Results Component Value Date [id number] 8.3 06/26/2017 No results found for: FERRITIN Lab Results Component Value Date TROPONIN 0.25 06/26/2017 TROPONIN 0.33 06/26/2017 Lab Results Component Value Date INRPT 1.04 06/04/2018 Lab Results Component Value Date URINECOLOR Subha 06/27/2017 URAPPEARANCE Sl.Cloudy 06/27/2017 Lab Results Component Value Date URINEAMPPHOS None 06/27/2017 URINEBACTERI None 06/27/2017 URINECAOX None 06/27/2017 URINECAST 0 06/27/2017 URINEGRANCAS 0 06/27/2017 URINEHYALINE 0 06/27/2017 URINEMUCOUS None 06/27/2017 URINEEPITH Few 06/27/2017 URINEREDCELL 4 06/27/2017 URINESQEPI Few 06/27/2017 URINEPO4 None 06/27/2017 URINEWBC 4 06/27/2017 URINEYEAST None 06/27/2017 IMAGING: Result Date: 06/02/2018 EXAM: CHEST 1 VIEW HISTORY: COPD with hypoxia COMPARISON: 06/27/2017 FINDINGS: The cardiomediastinal silhoue tte is unchanged. Persistent flattening of the diaphragms consistent with chronic obstructi ve pulmonary physiology. Scattered subsegmental atelectasis. Increasing interstitial airspa ce opacities particularly at the left upper lung zone. No significant pneumothorax or pleur al effusion. No acute osseous abnormalities. IMPRESSION: Redemonstration of the sequela of COPD with increasing interstitial airspace opacities particularly at the left upper lung zo ne. No focal airspace consolidation. Rosita Soto R N - 06/04/2018 2:26 PM PST Geriatric Nursing Note: Baseline functional and cognitive assessment information as well as general geriatric nursing advice in the care for hospitalized older adults Per discussion with Marianna Gonzalez (daughter) nursing and chart review: GERIATRIC REVIEW OF SYSTEMS ADLs: independent IADLs: independent Living situation/Caregiver: lives alone in his own home next door to his daughter Marianna Driving Status - Drives: yes Concerns/Issues: none Medications: self administers without difficulty HEENT - Hearing Impaired: yes, slight Corrected with: no correction Vision Impaired: yes Corrected with: bifocal lenses Mastication/Swallowing Dentures/partials: none Choking/gagging/coughing: none, painful crown Gastrointestinal - Nutrition Normal taste/smell: yes Weight loss/gain: none Bowel habits Incontinence: none Constipation: none Genitourinary - Incontinence: none Urgency/frequency/leaking urine: frequency Musculoskeletal - Falls: 2 in last year. 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 Enjoys g rowing his garden each summer, watching westerns, and game shows. General Geriatric Nursing Advice in the Care for Hospitalized Older Adults Recommendation Medication -Avoid diphenhydramine or other anticholinergics -Avoid morphine -Avoid benzodiazepines -Avoid Haldol for patients with Parkinson s or Lewy Body Dementia Mobility -early and frequent mobilization hartley to reducing complications and rapid deconditi oning -up to chair for all meals -assure ambulate at least TID with nursing, even if only for short distances Sleep -limit interruptions, widen night time vital sign frequency when possible, and cluste r care -offer eye masks or ear plugs -offer milk or chamomile tea before bed -melatonin given an hour before bedtime can prevent hospital associated day/night disruptio n -increase activity during the day and limit daytime napping - 4-6 am could be normal wake time, 7-8pm could be normal bedtime verify normal habits an d replicate those as much as possible Pain Management -start low and go slow -may not verbalize pain or try to tough it out -may fear narcotics in general due to previous side effects -untreated pain can cause delirium -schedule acetaminophen (TID preferred to avoid night time interruptions to sleep) -offer ice / heat, diclofenac gel or lidocaine patches as indicated -2.5-5mg oxycodone is typical first choice for narcotic pain management, avoid PO/IV morphi ne GI/ -nausea vomiting Yes Ondansetron Avoid Promethazine, scopolamine -constipation Yes- Prune Juice, stool softeners, coffee in the morning, Miralax, rectal suppository if ineffective try Magnesium Citrate Avoid Fleets enemas, Milk of Magnesia, or fiber -schedule toileting every 2-4 hours during the day and offer trip to commode or toilet righ t before bed -remove klein catheters as soon as possible, highly deliriogenic Risk of Delirium -promote individualized sleep wake cycle -limit night time vitals and interruptions -cluster care and attempt voiding prior to sleep -keep active and awake during the day, mobilize frequently -treat pain, as uncontrolled pain can cause or make delirium worse -encourage LIP to utilize delirium order set in [facility] to identify cause and guide appropriat e medication selection if needed -remove unnecessary lines as soon as possible -regularly assess CAM, utilize cognitive pyramid to apply specific interventions in managin g delirium at each level Risk of Falls -getting patient up and moving early will reduce muscle wasting, weakness, an d can reduce falls -plan toileting schedule, setting up Q 2 hour trips to the commode or toilet to "try" reduc es unexpected attempts to get out of bed by impulsive patients. Asking if patient needs to go does not have same effect as getting up to try Q 2-4 hours. -maintain bed alarm at all times Baseline Assessment -mobility and prior use of assistive devices -ADL ability -vision/hearing (glasses, hearing aids) -diet (dentures, food preferences, texture and consistency) -hobbies and interests Care Team Coordination: Discussed with Precious Bobo, Geriatrics [place] [phone] with any further nursing questions or concerns, if you would like t o speak with our data steward sand control worker, they can be reached at pager [phone]. Rosita Paul RN, [place] Geriatric Nurse Educator/PPL [phone] Vic Zhang MD - 06/03/2018 9:12 AM PST HOSPITALIST INPATIENT PROGRESS NOTE Author: Vic Petty MD, PhD PCP: SHAHEEN Love Hospital Day:3 ID: Lilian Hurst is a 83-year-old man with COPD and HTN who presented to an OSH after GLF, found to have left pelvic fracture, transferred to [facility] Orthopedic Surgery service for surgical management. [facility] consulted for pre-operative evaluation. 24h Events: --Started on low dose metoprolol yesterday --Telemetry: sinus rhythm with some episodes of either atrial fibrillation versus sinus rhy thm with PACs, or artifact. Single episode of 4-beta non-sustained VT this morning. --Per RN,, to OR at 11 am --Currently on 1 L NC Subj: --Slept a little bit --Still with pain --BM this morning --Denies chest pain, shortness of breath, palpitations Current Medications: acetaminophen (TYLENOL) tablet 1,000 mg, 1,000 mg, oral, TID albuterol 0.083% (PROVENTIL,VENTOLIN) 2.5 mg /3 mL (0.083 %) nebulizer solution 2.5 mg, 2.5 mg, inhalation, Q4H PRN bisacodyl (DULCOLAX) suppository 10 mg, 10 mg, rectal, DAILY PRN bisacodyl EC (DULCOLAX) tablet 10 mg, 10 mg, oral, DAILY enoxaparin (LOVENOX) injection 40 mg, 40 mg, subcutaneous, QPM guaiFENesin LA (MUCINEX) tablet 600 mg, 600 mg, oral, BID HYDROmorphone (DILAUDID) injection 0.2-0.4 mg, 0.2-0.4 mg, intravenous, Q2H PRN metoprolol tartrate (LOPRESSOR) tablet 6.25 mg, 6.25 mg, oral, BID naloxone (NARCAN) injection, , intravenous, PRN omeprazole (PRILOSEC) capsule 20 mg, 20 mg, oral, BEFORE BREAKFAST ondansetron (ZOFRAN) injection 4 mg, 4 mg, intravenous, Q12H PRN ondansetron (ZOFRAN) tablet 8 mg, 8 mg, oral, Q12H PRN oxyCODONE (immediate release) (ROXICODONE) tablet 5-10 mg, 5-10 mg, oral, Q4H PRN polyethylene glycol (MIRALAX) packet 17 g, 17 g, oral, DAILY polyethylene glycol (MIRALAX) packet 34 g, 34 g, oral, TID PRN prochlorperazine (COMPAZINE) injection 5-10 mg, 5-10 mg, intravenous, Q6H PRN prochlorperazine (COMPAZINE) tablet 5-10 mg, 5-10 mg, oral, Q6H PRN senna-docusate (SENOKOT S) 8.6-50 mg 2 tablet, 2 tablet, oral, BID Vitals: Last 24 hour min/max Temp: 36.6 C (97.9 F) Temp Min: 36 C (96.8 F) Max: 36.6 C (97.9 F) Pulse: 63 Pulse Min: 63 Max: 71 Resp: 16 Resp Min: 16 Max: 16 BP: 140/82 BP Min: 110/63 Max: 147/78 SpO2: 93 % SpO2 Min: 93 % Max: 95 % Body mass index is 27.41 kg/m. Ins and Outs: Intake/Output Summary (Last 24 hours) at 06/03/18 0912 Last data filed at 06/03/18 0400 Gross per 24 hour Intake 765 ml Output 900 ml Net -135 ml Exam: General: Awake, alert and oriented. NAD HEENT: EOMI, MMM Cardiovascular: RRR, nl S1/S2, no murmurs, rubs or gallops. JVP at level of clavicle Respiratory: Clear to auscultation bilaterally, prolonged expiratory phase Abdomen: NBS, soft, non-distended, non-tender, no rebound or guarding. Ext: Warm and well perfused, pulses present. Trace edema Skin: no rashes or lesions Basic Labs: Recent Labs 06/01/18 1027 06/02/18 0619 06/03/18 0651 WBC 11.33* 11.59* 10.86* RBC 4.30* 4.25* 4.38* HB 13.0* 12.8* 13.1* HCT 40.6* 39.8* 39.9* PLT 111* 90* 126* Recent Labs 06/01/18 1027 06/02/18 0619 06/03/18 0651 NA 139 134* 133* K 4.1 4.1 4.3 CL 103 101 100 BICARB 31 29 26 BUN 25* 27* 19 CR 0.84 0.80 0.68* GLU 177* 119* 109* CA 8.4* 8.2* 8.2* Lab Results Component Value Date VBGEXCESS 5.2 (H) 06/01/2018 VBGPH 7.35 06/01/2018 VBGPCO2 60 (H) 06/01/2018 VBGPO2 17 (L) 06/01/2018 VBGHCO3 32 (H) 06/01/2018 VBGFIO2 80.0 06/26/2017 Micro: Nothing new Imaging: CXR 06/02 IMPRESSION: Redemonstration of the sequela of COPD with increasing interstitial airspace opacities part icularly at the left upper lung zone. No focal airspace consolidation. Assessment and plan: Lilian Hurst is a 83-year-old man with COPD and HTN who presented to an OSH after GLF, found to have left pelvic fracture, transferred to [facility] Orthopedic Surgery service for surg ical management. [facility] consulted for pre-operative evaluation. # Pre-operative risk evaluation # Comminuted left pelvic fracture His risk for an adverse cardiac event is <1% by both Schaefer and RCRI. While his JVP is elev ated on exam, this is likely due to him not taking his home lasix which reportedly 20 mg po daily. There are no other cardiac conditions that should prevent him from proceeding with p lanned surgical procedure on Sunday. --To OR today # COPD Has COPD at baseline after prolonged smoking history (although not clear he has ever had PF Ts which is gold standard for diagnosis). Not on supplemental oxygen at home or inhalers, b ut has a nebulizer device which he says he uses sparingly. On arrival to [facility] he was on 4L NC and has ranged from 88-94% by pulse ox. As the severity of his COPD is unclear, better t o err on side of caution and keep his O2 sat between 89-94%. The O2 sat in the 70s previous ly is likely due to oversedation from opioids (daughter concerned about oversedation with VB G noting elevated pCO2 from baseline). Given lasix 20 mg I vx1 with improvement in JVP (carisa pect related to elevated RVSP from COPD as [...] On lisinopril and lasix as outpatient --Holding for now as going to OR Thank you for the opportunity to contribute to this patient's care. The above recommendati ons were communicated to the primary team. Vic Petty MD, PhD Clinical Hospitalist and Medicine Teaching Services [facility] Pager [phone] I spent more than 26 minutes [id number] with the patient of which greater than 50% was sp ent counseling the patient and in coordination of care with Nursing and Orthopedic Surgery. Tabitha Segal , PharmD - 06/03/2018 9:10 AM PSTFormatting of this note might be different from the origin al. Pharmacy Services: Admission Medication Reconciliation Prior to Admission Medications: Prescriptions Prior to Admission Medication Sig Dispense Refill Last Dose dilTIAZem CD 24 hour release 240 mg oral capsule,extended release 24hr Take 240 mg by m outh once daily. furosemide 20 mg oral tablet Take 20 mg by mouth once daily. Within last 7 days at U nknown time lisinopril 20 mg oral tablet Take 20 mg by mouth once daily. Within last 7 days at U nknown time omeprazole 40 mg oral capsule,delayed release(DR/EC) Take 40 mg by mouth once daily in the morning. Within last 30 days at Unknown time pravastatin 10 mg oral tablet Take 10 mg by mouth once daily at bedtime. Within last 30 days at Unknown time The above list reflects the patient's prior to admission medication use and is complete and accurate to the best of my knowledge. Home medication assessment: RELAY MAN medications updated per verbal [place] fill history and hand-written list from family (a vailable in media tab). Patient also filled a tobramycin-dexamethasone ophthalmic suspension 05/06 (written for affected eye BID until cleared). These variations will be discussed with the primary care team to determine clinical appropr iateness. Source of Medication Information: Family and Pharmacy Reliability: Reliable All questions concerning medications, including OTC and herbal products, were addressed. For questions regarding this information please contact pharmacy, pager [phone] Thank you, Tabitha Calvert PharmD Critical Care Clinical Pharmacist Electronically signed by Tabitha Calvert PharmD at 06/03 9:14 AM Vic Zhang MD - 06/02/2018 1:13 PM PST HOSPITALIST INPATIENT PROGRESS NOTE Author: Vic Petty MD, PhD PCP: SHAHEEN Love Hospital Day:2 ID: Lilian Hurst is a 83-year-old man with COPD and HTN who presented to an OSH after GLF, found to have left pelvic fracture, transferred to [facility] Orthopedic Surgery service for surgical management. [facility] consulted for pre-operative evaluation. 24h Events: --Given lasix 20 mg iv x1 yesterday. Cr stable --Tachycardic to 160-170s per RN, reportedly irregular. HR went down to 60s within 2-3 min utes. ECG shows PACs --Sating well on 4L NC --VBG yesterday showed pCO2 of 60 Subj: --Frustrated that surgery isn't happening today --Still experiencing pain --Says he felt palpitations earlier this morning but denies chest pain, shortness of breath . --He says he uses diltiazem for "abnormal heart rhythm" Current Medications: acetaminophen (TYLENOL) tablet 1,000 mg, 1,000 mg, oral, TID albuterol 0.083% (PROVENTIL,VENTOLIN) 2.5 mg /3 mL (0.083 %) nebulizer solution 2.5 mg, 2.5 mg, inhalation, Q4H PRN bisacodyl (DULCOLAX) suppository 10 mg, 10 mg, rectal, DAILY PRN bisacodyl EC (DULCOLAX) tablet 10 mg, 10 mg, oral, DAILY diazePAM (VALIUM) injection 2.5 mg, 2.5 mg, intravenous, DAILY PRN enoxaparin (LOVENOX) injection 40 mg, 40 mg, subcutaneous, QPM HYDROmorphone (DILAUDID) injection 0.2-0.4 mg, 0.2-0.4 mg, intravenous, Q2H PRN naloxone (NARCAN) injection, , intravenous, PRN ondansetron (ZOFRAN) injection 4 mg, 4 mg, intravenous, Q12H PRN ondansetron (ZOFRAN) tablet 8 mg, 8 mg, oral, Q12H PRN oxyCODONE (immediate release) (ROXICODONE) tablet 5-10 mg, 5-10 mg, oral, Q4H PRN polyethylene glycol (MIRALAX) packet 17 g, 17 g, oral, DAILY polyethylene glycol (MIRALAX) packet 34 g, 34 g, oral, TID PRN prochlorperazine (COMPAZINE) injection 5-10 mg, 5-10 mg, intravenous, Q6H PRN prochlorperazine (COMPAZINE) tablet 5-10 mg, 5-10 mg, oral, Q6H PRN senna-docusate (SENOKOT S) 8.6-50 mg 2 tablet, 2 tablet, oral, BID Vitals: Last 24 hour min/max Temp: 36.4 C (97.6 F) Temp Min: 36.3 C (97.3 F) Max: 36.7 C (98.1 F) Pulse: 74 Pulse Min: 52 Max: 169 Resp: 16 Resp Min: 16 Max: 18 BP: 148/75 BP Min: 114/52 Max: 158/91 SpO2: 95 % SpO2 Min: 92 % Max: 99 % There is no height or weight on file to calculate BMI. Ins and Outs: Intake/Output Summary (Last 24 hours) at 06/02/18 1313 Last data filed at 06/02/18 1000 Gross per 24 hour Intake 910 ml Output 775 ml Net 135 ml Exam: General: Awake, alert and oriented. NAD HEENT: EOMI, MMM Cardiovascular: RRR, nl S1/S2, no murmurs, rubs or gallops. JVP just above clavicle Respiratory: Clear to auscultation bilaterally, prolonged expiratory phase Abdomen: NBS, soft, non-distended, non-tender, no rebound or guarding. Ext: Warm and well perfused, pulses present. Trace edema Skin: no rashes or lesions Basic Labs: Recent Labs 05/31/18 1331 06/01/18 1027 06/02/18 0619 WBC 11.90* 11.33* 11.59* RBC 4.57 4.30* 4.25* HB 13.8 13.0* 12.8* HCT 43.5 40.6* 39.8* PLT 126* 111* 90* Recent Labs 05/31/18 1331 06/01/18 1027 06/02/18 0619 NA 138 139 134* K 4.3 4.1 4.1 CL 104 103 101 BICARB 31 31 29 BUN 22* 25* 27* CR 0.99 0.84 0.80 GLU 133* 177* 119* CA 8.0* 8.4* 8.2* Lab Results Component Value Date VBGEXCESS 5.2 (H) 06/01/2018 VBGPH 7.35 06/01/2018 VBGPCO2 60 (H) 06/01/2018 VBGPO2 17 (L) 06/01/2018 VBGHCO3 32 (H) 06/01/2018 VBGFIO2 80.0 06/26/2017 Micro: Nothing new Imaging: CXR 06/02 IMPRESSION: Redemonstration of the sequela of COPD with increasing interstitial airspace opacities part icularly at the left upper lung zone. No focal airspace consolidation. Assessment and plan: Lilian Hurst is a 83-year-old man with COPD and HTN who presented to an OSH after GLF, found to have left pelvic fracture, transferred to [facility] Orthopedic Surgery service for surg ical management. [facility] consulted for pre-operative evaluation. # Pre-operative risk evaluation # Comminuted left pelvic fracture His risk for an adverse cardiac event is <1% by both Schaefer and RCRI. While his JVP is elev ated on exam, this is likely due to him not taking his home lasix which reportedly 20 mg po daily. There are no other cardiac conditions that should prevent him from proceeding with p lanned surgical procedure on Sunday. --Low risk for adverse cardiac event-->proceed with surgery on Sunday # COPD Has COPD at baseline after prolonged smoking history (although not clear he has ever had PF Ts which is gold standard for diagnosis). Not on supplemental oxygen at home or inhalers, b ut has a nebulizer device which he says he uses sparingly. On arrival to [facility] he was on 4L NC and has ranged from 88-94% by pulse ox. As the severity of his COPD is unclear, better t o err on side of caution and keep his O2 sat between 89-94%. The O2 sat in the 70s previous ly is likely due to oversedation from opioids (daughter concerned about oversedation with VB G noting elevated pCO2 from baseline). Given lasix 20 mg I vx1 with improvement in JVP (carisa pect related to elevated RVSP from COPD as his CXR does not show any pulmonary edema) --Supplemental oxygen prn to keep O2 sat between 89-94% --Strict I/O, daily weights for now --Agree with combivent inhaler --Pain control: -Tylenol 1000 mg po tid -oxycodone 5-10 mg po q4h prn moderate pain -Dilaudid 0.2-0.4 mg iv q4h prn severe pain -Agree with bowel regimen (last BM 4 days ago) -Consider discontinuing Valium IV prn-->High risk for oversedation given opioid and high risk for causing delirium. Consider alternative non-benzo muscle relaxant # SVT Episode of supraventricular tachycardia this morning, with patient experiencing palpitation s, HR reportedly 160-170s but then dropped to 60-70s. ECG does not show atrial fibrillation , but does show PACs. Mr. Hurst reports taking diltiazem at home, does not follow with a Car diologist. During encounter his HR was regular and was in the 60s --Telemetry for now --Hold on resuming diltiazem as his HR is at goal (want to avoid bradycardia) Thank you for the opportunity to contribute to this patient's care. The above recommendati ons were communicated to the primary team. Vic Petty MD, PhD Clinical Hospitalist and Medicine Teaching Services [facility] Pager [phone] I spent more than 28 minutes [id number] with the patient of which greater than 50% was sp ent counseling the patient and in coordination of care with Nursing and Orthopedic Surgery. Kang Zhang MD - 06/01/2018 4:12 PM PSTAssociated Order(s): IP CONSULT TO CLINICAL HOSPITALIST SE RVICE HOSPITALIST INPATIENT CONSULT NOTE Hospital Day:1 Referring Physician: Ashwini Ruggiero MD Primary Care Physician: SHAHEEN Love Reason for Consult: Pre-operative evaluation HISTORY OF PRESENT ILLNESS: Lilian Hurst is an 83-year-old man with COPD and HTN who p resented to an OSH after GLF, found to have left pelvic fracture, transferred to [facility] Orthop edic Surgery service for surgical management. [facility] consulted for pre-operative evaluation. History derived from patient, daughter at bedside, and chart review. Patient was changing battery in his truck when he fell on his left hip. Unable to bear joaquim ght and experienced severe pain. BIBA to OSH where imaging showed a comminuted left pelvic fracture involving acetabulum, ischium and left pubic bone with moderate hematoma. He was t ransferred to [facility] Orthopedic Surgery for surgical management. Current plan is for Mr. Hurst to go to the OR on Sunday. Mr. Hurst says at baseline he is on room air and no longer smokes. Used to smoke 3 packs of cigarettes per day for 40 years, but stopped smoking 30 years ago. Carries a diagnosis of COPD but neither patient or daughter know if he has ever done PFTs. He [facility] a nebulizer [facility], but uses it sparingly. 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 Able to ambu late several blocks without dyspnea, but does admit to occasionally having to stop to catch his breath while walking uphill (although says he can walk up hill most of the time without problems). Denies chest pain, shortness of breath, palpitations, LE edema, weight gain, ort hopnea or paroxysmal nocturnal dyspnea. Currently, he is on 4 L nasal cannula. Denies cough, denies feeling short of breath. On r eview of records, prior to transfer he was sating 92% on RA, but was placed on 4L once he ar rived at [facility]. He has been sating between 88-94%, but noted to desat to 76% last night but recovered to 91% on 4L without intervention. His daughter feels as if his opioid dose is to o high because he is becoming increasingly "loopy" which is not his baseline. ROS: A complete review of systems was performed, including the following: Constitutional Eyes Ears, nose mouth, throat Cardiovascular Respiratory Gastrointestinal Genitourinary Musculoskeletal Skin Neurologic General Health Hematologic or Lymphatic Allergic or immunologic Pertinent positives and negatives are recorded in the HPI and PMHx. All others negative. Past Medical History: Past Medical History: Diagnosis Date COPD (chronic obstructive pulmonary disease) (HCC) GI bleed 2013 esophageal ulcer s/p clipping 2013 HTN (hypertension) Normocytic anemia Hgb around 11 in 2013 Prediabetes SVT (supraventricular tachycardia) (HCC) unclear hx. "Possible SVT" per chart in 2012. Past Surgical History: Past Surgical History Procedure Laterality Date Treatment of fracture of lower leg 2003 Right knee surgery knee cap surgery Ankle surgery left ankle crushed in accident Back surgery 1980 Social History: Social History Social History Marital status: Spouse name: N/A Number of children: N/A Years of education: N/A Occupational History Not on file. Social History Main Topics Smoking status: Former Smoker Smokeless tobacco: Not on file Comment: per chart. Cannot verify right now pt intubated. Alcohol use Yes Comment: occasional Drug use: Unknown Sexual activity: Not on file Other Topics Concern Not on file Social History Narrative No narrative on file Family History: Non-contributory Home Medications: Prior to Admission Medications Prescriptions Last Dose Informant Patient Reported? Taking? acetaminophen 325 mg oral tablet No No Sig: Take 2 tablets by mouth every six hours while awake. furosemide 20 mg oral tablet Yes No Sig: Take 20 mg by mouth once daily. ipratropium-albuterol 0.5 mg-3 mg(2.5 mg base)/3 mL inhalation solution for nebulization Yes No Sig: Inhale 3 mL every four hours as needed for dyspnea/SOB. lisinopril 20 mg oral tablet Yes No Sig: Take 20 mg by mouth once daily. loratadine (CLARITIN LIQUI-GEL) 10 mg oral capsule Yes No Sig: Take 10 mg by mouth once daily. naproxen sodium 220 mg oral capsule Yes No Sig: Take 1 capsule by mouth once daily as needed. omeprazole 40 mg oral capsule,delayed release(DR/EC) Yes No Sig: Take 40 mg by mouth once daily in the morning. polyethylene glycol 17 gram oral powder in packet No No Sig: Mix 1 packet and take orally once daily. pravastatin 10 mg oral tablet Yes No Sig: Take 10 mg by mouth once daily at bedtime. simethicone chew 80 mg oral tablet,chewable No No Sig: Chew and swallow 1 tablet three times daily as needed for bloating. Facility-Administered Medications: None Allergies: Allergies Allergen Reactions Aromatic Dyspnea Budesonide-Formoterol Dyspnea "I can't breathe when I use it." Fluticasone-Salmeterol Dyspnea "I can't breathe when I use it." Eucalyptus Dyspnea Fluticasone Dyspnea Hydrochlorothiazide Rash Hospital Medications: acetaminophen (TYLENOL) tablet 325-650 mg, 325-650 mg, oral, Q4H PRN bisacodyl (DULCOLAX) suppository 10 mg, 10 mg, rectal, DAILY PRN diazePAM (VALIUM) injection 2.5 mg, 2.5 mg, intravenous, DAILY PRN enoxaparin (LOVENOX) injection 40 mg, 40 mg, subcutaneous, QPM HYDROmorphone (DILAUDID) injection 0.2-0.6 mg, 0.2-0.6 mg, intravenous, Q2H PRN ipratropium-albuterol (COMBIVENT RESPIMAT) inhaler 1 puff, 1 puff, inhalation, Q4H PRN naloxone (NARCAN) injection, , intravenous, PRN ondansetron (ZOFRAN) injection 4 mg, 4 mg, intravenous, Q12H PRN ondansetron (ZOFRAN) tablet 8 mg, 8 mg, oral, Q12H PRN oxyCODONE (immediate release) (ROXICODONE) tablet 5-15 mg, 5-15 mg, oral, Q3H PRN polyethylene glycol (MIRALAX) packet 17 g, 17 g, oral, DAILY polyethylene glycol (MIRALAX) packet 34 g, 34 g, oral, TID PRN prochlorperazine (COMPAZINE) injection 5-10 mg, 5-10 mg, intravenous, Q6H PRN prochlorperazine (COMPAZINE) tablet 5-10 mg, 5-10 mg, oral, Q6H PRN senna-docusate (SENOKOT S) 8.6-50 mg 2 tablet, 2 tablet, oral, BID Physical Exam: Vitals: Last 24 hour min/max Temp: 36.7 C (98.1 F) Temp Min: 36.3 C (97.3 F) Max: 36.7 C (98.1 F) Pulse: 63 Pulse Min: 63 Max: 80 Resp: 16 Resp Min: 14 Max: 16 BP: 131/71 BP Min: 105/69 Max: 131/71 SpO2: 96 % SpO2 Min: 76 % Max: 96 % There is no height or weight on file to calculate BMI. Ins and Outs: Intake/Output Summary (Last 24 hours) at 06/01/18 1612 Last data filed at 06/01/18 1200 Gross per 24 hour Intake 80 ml Output 650 ml Net -570 ml General Appearance: Alert, no apparent distress, cooperative HEENT: EOMI, anicteric sclera, moist mucous membranes Respiratory: Clear to auscultation without wheezes, rales, ronchi. Prolonged expiratory ph ase Cardiovascular: Distant heart sounds, normal rate, regular rhythm without murmurs, rubs or gallops, JVP at mid-neck with patient at 60 degrees Gastrointestinal: Soft, non distended, non tender, normal bowel sounds. Extremities: Left leg in traction. Right leg warm and well perfused, trace edema Skin: No rashes Neurologic: Alert and Oriented x 3, freely moves all extremities with exception of left leg Basic Labs: Lab Results Component Value Date WBC 11.33 06/01/2018 HB 13.0 06/01/2018 HCT 40.6 06/01/2018 PLT 111 06/01/2018 MCV 94.4 06/01/2018 RDW 45.5 06/01/2018 Lab Results Component Value Date NA 139 06/01/2018 K 4.1 06/01/2018 CL 103 06/01/2018 BICARB 31 06/01/2018 BUN 25 06/01/2018 CR 0.84 06/01/2018 GLU 177 06/01/2018 CA 8.4 06/01/2018 AST 29 06/29/2017 ALT 96 06/29/2017 AP 104 06/29/2017 TBILI 1.2 06/29/2017 TP 5.1 06/29/2017 ALB 2.5 06/29/2017 ANIONGAP 5 06/01/2018 ANIONALBCOR 8 06/29/2017 2014 ACC/AHA Perioperative Cardiac Risk Stratification: Are active cardiac conditions present? No Calculate the combined surgical and patient-specific risk: using the Schaefer perioperative ca rdiac risk calculator, the risk of major adverse cardiac event (MACE) is: less than 1%. No further risk stratification for coronary disease is indicated. Calculate the combined surgical and patient-specific risk: RCRI risk calculator (one point for each "yes" answer) A. Elevated risk surgery?: no B. Ischemic heart disease: no C. Compensated / prior heart failure: yes D. Diabetes mellitus (treated with insulin): no E. Renal insufficiency (Cr>2): no F. Cerebrovascular disease: no Risk of MACE 0 risk factors - 0.4% 1 risk factor - 0.9% 2 risk factors - 6.6% 3 risk factors - 11% The risk of major adverse cardiac event (MACE) is: less than 1%. No further risk stratific ation for coronary disease is indicated. ASSESSMENT and RECOMMENDATIONS: Lilian Hurst is an 83-year-old man with COPD and HTN who presented to an OSH after GLF , found to have left pelvic fracture, transferred to [facility] Orthopedic Surgery service for christina gical management. [facility] consulted for pre-operative evaluation. # Pre-operative risk evaluation # Comminuted left pelvic fracture His risk for an adverse cardiac event is <1% by both Schaefer and RCRI. While his JVP is elev ated on exam, this is likely due to him not taking his home lasix which reportedly 20 mg po daily. There are no other cardiac conditions that should prevent him from proceeding with p lanned surgical procedure on Sunday. --Low risk for adverse cardiac event-->proceed with surgery on Sunday # Hypoxic respiratory failure # COPD # CHF? Has COPD at baseline after prolonged smoking history (although not clear he has ever had PF Ts which is gold standard for diagnosis). Not on supplemental oxygen at home or inhalers, b ut has a nebulizer device which he says he uses sparingly. On arrival to [facility] he was on 4L NC and has ranged from 88-94% by pulse ox. While he has an elevated JVP he does not have an y other symptoms characteristic of CHF (weight gain, LE edema, orthopnea, paroxysmal nocturn al dyspnea). In addition, he does not have any evidence of COPD exacerbation- no cough, pur ulent sputum production. To be safe, his O2 sat should be between 89-94% and not allowed to go higher. The O2 sat in the 70s from yesterday is likely due to oversedation from opioids (daughter concerned about oversedation). For now propose the following: --Supplemental oxygen prn to keep O2 sat between 89-94% --Strict I/O, daily weights for now --Check VBG to assess pCO2 level --1-view CXR ordered for tomorrow (pt adamant about not getting a CXR today) --Lasix 20 mg iv x1 given elevated JVP --Agree with combivent inhaler --Start tiotropium (LAMA or LABA is 1st line agent for COPD management) --Pain control: -Tylenol 1000 mg po tid -oxycodone 5-10 mg po q4h prn moderate pain -Dilaudid 0.2-0.4 mg iv q4h prn severe pain -Agree with bowel regimen (last BM 4 days ago) -Consider discontinuing Valium IV prn-->High risk for oversedation given opioid and high r isk for causing delirium. Consider alternative non-benzo muscle relaxant Thank you for the opportunity to contribute to this patient's care. The above recommendati ons were communicated to the primary team. Vic Petty MD, PhD Clinical Hospitalist and Medicine Teaching Services [facility] Pager [phone] I spent 75 minutes in care of this patient, > 50% of which was spent in counseling and coor dination of care. Jeanette Messina MD - 05/31/2018 1:29 PM PSTFormatting of this note might be different from the orig inal. Addendum: Lilian Hurst is a 83 y.o. Male with left acetabulum fracture after ground level fall, history of ipsilateral DHS from prior hip fracture. Currently endorsing left hip pain. Den ies pain in other extremities. No motor or sensory deficits noted on exam, hip flexion and extension limited by pain. Aidan ateral upper and right lower extremity with painless ROM. A/P: Left acetabulum fracture, will require surgical management with ORIF vs percutaneous f ixation, likely Sunday. - OK for diet, NPO Sunday for OR Sunday - OK for anticoagulation, hold Sunday at midnight for OR Sunday - NWB ALLYSSA SEARS MD Pager: [phone] 05/31/2018 [facility] DEPARTMENT OF ORTHOPAEDICS & REHABILITATION HISTORY & PHYSICAL EXAMINATION Patient: Lilian Hurst Encounter Date: 05/31/2018 Attending Physician: Nguyễn Shepard MD Paged Time: Not paged Arrival Time: 1:30 pm HISTORY OF PRESENT ILLNESS: Lilian Hurst is a 83 y.o. M who presents as transfer form OSH after GLF. CT Pelvis jayla wing left acetabulum, left pubic root, left inferior ramus fracture. Outside XR also showing previous left hip DHS from a fall from "20 feet" per patient. Patient says he was changingt he battery in his truck when he fell and landed on his left hip with immediate pain, inabil ity to bear weight. Denies any left hip pain prior to this fall. Patient is not able to give a detailed history, but is alert and oriented to person, place, and time. Last meal:unknown PAST MEDICAL HISTORY: No date: COPD (chronic obstructive pulmonary disease) ([facility]) 2014: GI bleed Comment: esophageal ulcer s/p clipping 2013 No date: HTN (hypertension) No date: Normocytic anemia Comment: Hgb around 11 in 2013 No date: Prediabetes No date: SVT (supraventricular tachycardia) ([facility]) Comment: unclear hx. "Possible SVT" per chart in 2012. PAST SURGICAL HISTORY: Past Surgical History: Procedure Laterality Date ANKLE SURGERY BACK SURGERY 1981 RIGHT KNEE SURGERY TREATMENT OF FRACTURE OF LOWER LEG SOCIAL HISTORY: reports that he has quit smoking. He does not have any smokeless tobacco history on file., reports that he drinks alcohol., has no drug history on file. Occupation: retired MEDICATIONS: Prior to Admission Medications Prescriptions acetaminophen 325 mg oral tablet Sig: Take 2 tablets by mouth every six hours while awake. furosemide 20 mg oral tablet Sig: Take 20 mg by mouth once daily. ipratropium-albuterol 0.5 mg-3 mg(2.5 mg base)/3 mL inhalation solution for nebulization Sig: Inhale 3 mL every four hours as needed for dyspnea/SOB. lisinopril 20 mg oral tablet Sig: Take 20 mg by mouth once daily. loratadine (CLARITIN LIQUI-GEL) 10 mg oral capsule Sig: Take 10 mg by mouth once daily. naproxen sodium 220 mg oral capsule Sig: Take 1 capsule by mouth once daily as needed. omeprazole 40 mg oral capsule,delayed release(DR/EC) Sig: Take 40 mg by mouth once daily in the morning. polyethylene glycol 17 gram oral powder in packet Sig: Mix 1 packet and take orally once daily. pravastatin 10 mg oral tablet Sig: Take 10 mg by mouth once daily at bedtime. simethicone chew 80 mg oral tablet,chewable Sig: Chew and swallow 1 tablet three times daily as needed for bloating. Facility-Administered Medications: None ALLERGIES: is allergic to aromatic; budesonide-formoterol; fluticasone-salmeterol; eucalyptus; flutica sone; and hydrochlorothiazide. FAMILY HISTORY: reviewed, non-contrbutory REVIEW OF SYSTEMS: A 10 point review of systems was completed and the pertinent positives and negatives are no alexia above in the history of present illness. PHYSICAL EXAMINATION VITALS: Pulse: 80 BP: 150/74 Temp: 36.7 C (98.1 F) SpO2: 88 % Resp: 16 GENERAL: appropriate, oriented CARD/PULM: appropriate effort, not auscultated NECK: not in cervical collar PELVIS: non-tender, stable to compression RIGHT UPPER EXTREMITY: Inspection: unremarkable Palpation: unremarkable [...] capillary refill <2 sec Reflexes: not performed RIGHT LOWER EXTREMITY: Inspection: unremarkable Palpation: unremarkable ROM: [...] Reflexes: not performed LEFT LOWER EXTREMITY: Inspection: hip held in slight flexion Palpation: Pain with logroll ROM: Does not actively/passively ROM his hip or knee secondary to pain. Full active/passive ROM at ankle, foot, toes Motor: fires tibialis anterior, fires gastrocsoleus complex, fires EHL, fires FHL, fires qu ads, fires hamstrings, fires hip flexors Sensory: grossly intact to light touch, medial, lateral, dorsal, 1st dorsal web space, plan tar Vascular: palpable dorsalis pedis, palpable posterior tibial, digits warm & well perfused, capillary refill < 2 seconds, DANNY not indicated Reflexes: not performed LABORATORY DATA: Lab Results Component Value Date/Time NA 140 06/29/2017 03:24 AM NA 139 06/26/2017 08:55 AM K 4.2 06/29/2017 03:24 AM K 3.3 (L) 06/26/2017 08:55 AM CR 0.98 06/29/2017 03:24 AM HCT 36.0 (L) 06/29/2017 03:24 AM WBC 8.69 06/29/2017 03:24 AM PLT 134 (L) 06/29/2017 03:24 AM DIAGNOSTIC IMAGING: CT Pelvis, per my read demonstrate: Left iliac, left pubic root, left inferior ramus fractu res ASSESSMENT: Lilian Hurst is a 83 y.o. M with the following orthopaedic injuries/concerns: 1. Left iliac, left acetabulum, left inferior ramus fractures PLAN: Disposition: admitted to medicine Surgery: yes, to be determined. Possible SI screw Sunday Diet: regular now, NPO midnight Sunday Further Imaging: no additional at this time Supervision: Plan will be discussed with Alexa Sears MD, PGY-5. Follow up:Please call the clinic to make a follow up appointment in approximately 1-2 weeks with ORTHO TRAUMA & FRACTURE, The orthopaedics consult pager is #[phone], please call with questions. Doe Gongora MD, MPH Orthopaedic Surgery Resident p [phone] signed by Nguyễn Shepard MD at 06/01/2018 7:45 AM PST Associated attestation - Nguyễn Shepard MD - 06/01/2018 7:45 AM PSTI agree with the d ocumentation of our resident as contained in this note. I personally interviewed the patient , duplicated the pertinent parts of the physical examination and personally formulated the p pat with the resident. I have reviewed, entered my findings, and agree with the above docum entation. Agree with all of Dr. Sears's plan. Complex acetabular injury as a function of having p rior hip hardware, otherwise the hip would have broken instead. Fortunately he is relatively not displaced and we can percutaneously support his hip socket. Likely will let him weight bear earlier than otherwise. Nguyễn Shepard MD Department of Orthopedics & Rehabilitation - Orthopaedic Trauma [facility] documented in this encounter Miscellaneous Notes Plan of Edmar - Jodi Knowles - 06/06/2018 9:43 AM PSTFormatting of this note might be di fferent from the original. Physical Therapy 06/06/2018 9:43 AM Admitted on 05/31/2018, hospital day 6 Time in 940 , time out 1030 Patient was seen for a total of 39 minutes of direct one on one skilled physical therapy wh ich included 39 minutes of theac Present throughout session other than pt and therapist: none Current unit: 9k Brief Hospital Course:Lilian Hurst is a 83 year old admitted on 05/31/2018 for fall with left acetabulum fracture, history of ipsilateral DHS from prior hip fracture. Procedure Performed: closed reduction percutaneous fixation of the left acetabulum Relevant Precautions: range of motion as tolerated, non weight bearing left lower extremi ty Subjective: I need to get out of this bed Pain: 07/28 Objective: Upon arrival to room pt found supine in the bed. Supine exercises: Heel slides minimum assist left , hip abd/add minimum assist left , ankl e pumps, quad set tactile cues and verbal cues , glut sets verbal cues X 10 reps bilateral . Supine to sit head of the bed at 20 degrees with rail and assist left lower extremity. Sat edge of bed several minutes to accommodate to upright. Reviewed non weight bearing precaution demonstrated how this looks when standing Sit to/ from stand front wheeled walker and contact guard assist Gait training with FWW: firm contact guard / minimum assist, 3 feet forward turn back to c hair and turn to sit. Had to take 2 standing rests due to Short of breath. Sit exercise : ankle pumps, heel raises, long arc quads and sliding foot forward / backward s on floor. Pt left up in chair, call light/urinal/phones/yankour suction all in reach. Nurse notified. [facility] BASIC MOBILITY Difficulty turning over in bed 3 - A Little - Minimal/Contact Guard Assist/Supervision Difficulty sitting/standing from chair w/ arms 3 - A Little - Minimal/Contact Guard Assist/ Suervision Difficulty moving from supine to sitting on edge of bed 3 - A Little - Minimal/contact Guar d Assist/Supervision Help needed moving from /to chair/wheelchair 3 - A Little - Minimal/Contact Guard Assist/S upervision Help needed walking in hospital room 3 - A Little - Minimal/Contact Guard assist/Supervisio n Help needed climbing 3-5 steps w/railing 1 - Unable to do/total assistance - Total/Dependen t Assist [facility] Basic Mobility Total Score 16 Interpretation of [facility] Short Form - Basic Mobility: CMS Modifier (G-Code) Score (in points) % of Functional Impairment, Limitation, or Restriction CN 6 100% impaired, limited, restricted CM 7-9 At least 80%, but less than 100% impaired, limited, or restricted CL 10-14 At least 60%, but less than 80% impaired, limited, or restricted CK 15-19 At least 40%, but less than 60% impaired, limited, or restricted CJ 20-22 At least 20%, but less than 40% impaired, limited, or restricted CI 23 At least 1%, but less than 20% impaired, limited, or restricted CH 24 0% impaired, limited, or restricted Assessment: pt very motivated to improve and willing to work hard. Limited by very quickly becoming short of breath See care plan for goals. Updated Plan & Recommendations: Continue per plan of care toward goals Frequency 6x Discharge Recommendations: 24 hour skilled care;Continued PT at next level of care Equipment recommendations: to be determined . Jodi Knowles, ANANYA [id number] andoff - Kiah Corral , RN - 06/05/2018 9:20 PM PSTNursing Handoff Patient Daily Goal: sleep (06/05/182039) Patient Specific Preferences: cluster care (06/05/182039) [facility] IP NURSE HANDOFF: [facility] hospital course events: 05/31: tx from [facility]. Fell 05/30- left hip and pelvic fx 06/01: skeletal traction 06/02: Elevated HR EKG showed SR with PACs. Takes dilt at baseline (none since admission), s tarted on 6.25 mg metop noc 06/02. 06/03 early am 4 beats of v-tach 06/03: Closed reduction, percutaneous fixation left acetabulum 06/04: coffee ground emesis x3 in AM Hx: COPD, HTN, [place] 2018, stents, CHF, SVT SAFETY Patient/Family Target: Patient to remain hemodynamically stable Progress to Target: Improving As evidenced by: Pt on Tele - SR with PACs/PVCs, no calls this shift. He is hypertensive intermittently. COMFORT/ANXIETY/BEHAVIOR Patient/Family Target: Manage pain to promote rest & comfort Progress to Target: Improving As evidenced by: Carlos taking Oxycodone 5 mg intermittently for pain control. Check in more frequently dur ing the day when Carlos is mobilizing more. Slept in between care. Woke up around 2 am and wanted to sit up to chair, 1PA FWW up to chair, 2PA FWW back to bed . Mobility improving. Medicated once during shift after up to chair. RESTORATIVE MEASURES/SELF-MANAGEMENT Patient/Family Target: Carlos will have reduced nausea and increased bowel motility Progress to Target: Improving As evidenced by: Carlos has had no nausea this shift, no emesis, diet advanced to regular and tolerated din ner yesterday evening. LBM 06/05. Audible bowel tones. NURSING ASSESSMENT & RECOMMENDATIONS FORWARD Nursing Assessment of Patient Stability Risk: Moderately stable Recommendations Forward: MOBILITY: Non WB LLE, 1PA with FWW stand and pivot to the chair vs seated sling and ceiling lift PAIN: 5 mg oxycodone Q4 prn ORDER FOLLOW-UP: - daily weight - done 06/06 AM - MD ok with O2 sats 89%-94% on 2L - Strict I & Os - tele for tachycardia & irregular rate EDUCATION NEEDS: D/C PLAN: To SNF TBD andoff - Herson Rizvi RN - 06/05/2018 7:37 PM PSTNursing Handoff Patient Daily Goal: sleep (06/04/182024) Patient Specific Preferences: cluster care (06/04/182024) [facility] IP NURSE HANDOFF: [facility] hospital course events: 05/31: tx from [place]. Fell 05/30- left hip and pelvic fx 06/01: skeletal traction 06/02: Elevated HR EKG showed SR with PACs. Takes dilt at baseline (none since admission), s tarted on 6.25 mg metop noc 06/02. 06/03 early am 4 beats of v-tach 06/03: Closed reduction, percutaneous fixation left acetabulum 06/04: coffee ground emesis x3 in AM Hx: COPD, HTN, [place] 2018, stents, CHF, SVT SAFETY Patient/Family Target: Patient to remain hemodynamically stable Progress to Target: Improving As evidenced by: Pt on Tele - SR with PACs/PVCs, no calls this shift. He was hypertensive intermittently t his shift, resolved on won multiple times. COMFORT/ANXIETY/BEHAVIOR Patient/Family Target: Manage pain to promote rest & comfort Progress to Target: Improving As evidenced by: Carlos has been a little more painful today since he's been mobilizing more. He's been lorena ing 5mg oxycodone about every four hours and appreciated being offered pain meds more regula rly today. RESTORATIVE MEASURES/SELF-MANAGEMENT Patient/Family Target: Carlos will have reduced nausea and bowel motility Progress to Target: Improving As evidenced by: Carlos has had no nausea this shift, no emesis, he tolerated clear liquids throughout the day and had a regular meal tonight. NURSING ASSESSMENT & RECOMMENDATIONS FORWARD Nursing Assessment of Patient Stability Risk: Moderately unstable Recommendations Forward: MOBILITY: Non WB LLE, 1PA with FWW stand and pivot to the chair vs seated sling and ceiling lift PAIN: 5 mg oxycodone Q4 prn ORDER FOLLOW-UP: - bowel motility - MD ok with O2 sats 89%-94% on 2L - Strict I & Os - mucinex for chest congestion/phelgm. - tele for tachycardia & irregular rate EDUCATION NEEDS: D/C PLAN: To SNF when medically stable lan of Care - Sherly Gan, PT - 06/05/2018 5:51 PM PST Physical Therapy 06/05/2018 5:51 PM Time in: 1430 Time out: 1510 Patient was seen for a total of 40 minutes of direct one on one skilled physical therapy wh ich included 25 minutes of therapeutic activity and 15 minutes of therapeutic exercise Patient seen on Hospital Day: 5 Present throughout session: patient Brief Hospital Course: Lilian Hurst is a 83 year old admitted on 05/31/2018 for fall w ith left acetabulum fracture, history of ipsilateral DHS from prior hip fracture. Procedure Performed: closed reduction percutaneous fixation of the left acetabulum Relevant Precautions: range of motion as tolerated, non weight bearing left lower extremit y Subjective: patient reports feeling better today Pain: indicates controlled/10. Objective: Home exercise program performance left lower extremity of 10 reps each, exercises including supine heel slides, quad sets, hip abduction/adduction, log roll side to side and seated lo ng arc quad. Discussion with verbal cueing and visual demo purpose of exercises, relation t o functional activity, how to have caregiver assist as needed, progress exercise as toleranc e/capability improves, include in home regimen of activity and recovery. Supine to sitting minimal assist with extended time from flat bed via log roll and use of h andrail. Sit<>standing with front wheeled walker minimal assist - continued cueing surrounding hand and foot placement. Ambulation with front wheeled walker x 4' forward, backward through turn x 3' - fatigue not ed. Min assist for sequencing and walker stability. Transferred from chair to transport ch air to walk around with volunteer. oxygen present and telemtry on - notified nursing. Assessment: great progress, motivated. At times slight touch down weight bearing but good effort See care plan for goals. Activity Recommendations for Nursing partners: *Nursing to re-assess per shift as needed.* - Lights on and curtains open during day hours. - Up to chair for meals or 3x/day with front wheeled walker DISCHARGE RECOMMENDATIONS: 24 hour skilled care;Continued PT at next level of care DME Needs: defer Sherly Ellison, PT andoff - Piper Corral RN - 06/04/2018 11:12 PM PSTNursing Handoff Patient Daily Goal: sleep (06/04/182024) Patient Specific Preferences: cluster care (06/04/182024) [facility] IP NURSE HANDOFF: [facility] hospital course events: 05/31: tx from [place]. Fell 05/30- left hip and pelvic fx 06/01: skeletal traction 06/02: Elevated HR EKG showed SR with PACs. Takes dilt at baseline (none since admission), s tarted on 6.25 mg metop noc 06/02. 06/03 early am 4 beats of v-tach 06/03: Closed reduction, percutaneous fixation left acetabulum 06/04: coffee ground emesis x3 in AM Hx: COPD, HTN, [place] 2018, stents, CHF, SVT SAFETY Patient/Family Target: Patient to remain hemodynamically stable Progress to Target: Improving As evidenced by: Pt on Tele - SR with PACs/PVCs, no calls overnight. VSS. COMFORT/ANXIETY/BEHAVIOR Patient/Family Target: Manage pain to promote rest & comfort Progress to Target: Improving As evidenced by: Carlos denied pain during the evening. Oxycodone 5 mg available PRN for pain control, usin g with caution to avoid delirium. Remained A x O x 4 overnight. Per Susan team note, please a void sleep interruptions between 2200 - 0600. RESTORATIVE MEASURES/SELF-MANAGEMENT Patient/Family Target: Carlos will have reduced nausea and bowel motility Progress to Target: Deteriorating As evidenced by: Carlos remains NPO and a KUB was obtained that showed possible ileus. Last BM was last ni ght (06/03) per report. Denied nausea overnight. Bowel tones hypoactive. Given first dose of protonix with HS meds last night. NURSING ASSESSMENT & RECOMMENDATIONS FORWARD Nursing Assessment of Patient Stability Risk: Moderately unstable Recommendations Forward: MOBILITY: Non WB LLE, 2 max assist stand and pivot to the chair vs seated sling and ceiling lift PAIN: 5 mg oxycodone Q4 prn ORDER FOLLOW-UP: - bowel motility - MD ok with O2 sats 89%-94% on 2L - Strict I & Os - mucinex for chest congestion/phelgm. - tele for tachycardia & irregular rate EDUCATION NEEDS: D/C PLAN: To SNF when medically stable andoff - Herson Rizvi, RN - 06/04/2018 6:57 PM PSTNursing Handoff Patient Daily Goal: Pain control, sleep (06/02/182017) Patient Specific Preferences: cluster care (06/01/182041) [facility] IP NURSE HANDOFF: [facility] hospital course events: 05/31: tx from [facility]. Fell 05/30- left hip and pelvic fx 06/01: skeletal traction 06/02: Elevated HR EKG showed SR with PACs. Takes dilt at baseline (none since admission), s tarted on 6.25 mg metop noc 06/02. 06/03 early am 4 beats of v-tach 06/04: coffee ground emesis x3 in AM Hx: COPD, HTN, NV 2018, stents, CHF, SVT SAFETY Patient/Family Target: Patient to remain hemodynamically stable Progress to Target: Improving As evidenced by: -Per chart/report, Carlos had HR 106-170s 06/02 -06/02 Had 5 beat run v-tach. -Hx of SVT- takes diltiazem baseline, none since admission. MDs are concerned about bradyca rdia but cardiology is involved. -Pt on tele - SR with PACs/PVCs COMFORT/ANXIETY/BEHAVIOR Patient/Family Target: Manage pain to promote rest & comfort Progress to Target: Improving As evidenced by: Carlos was delirious last night when he arrived from the PACU and pain meds were held off until delerium cleared. Today he's been taking 5mg oxycodone occasionally. He has been able to rest and sleep between care. RESTORATIVE MEASURES/SELF-MANAGEMENT Patient/Family Target: Carlos will have normal bowel patterns today Progress to Target: Deteriorating As evidenced by: Carlos was vomiting small/medium amounts of coffee ground emesis this AM. He was made NPO and a KUB was obtained that showed possible ileus. Bowel meds were held this AM d/t emesis and new NPO status but would continue tonight and encourage Carlos to get up the BSC using th e ceiling lift. No emesis since this AM. Last BM was last night (06/03) per report. As evidenced by: NURSING ASSESSMENT & RECOMMENDATIONS FORWARD Nursing Assessment of Patient Stability Risk: Moderately unstable Recommendations Forward: MOBILITY: Non WB LLE, 2 max assist stand and pivot to the chair vs seated sling and ceiling lift PAIN: 5 mg oxycodone Q4 prn ORDER FOLLOW-UP: -Dark brown/black sputum and emesis this AM -MD ok with O2 sats 89%-94% on 2L -Strict I & Os -mucinex for chest congestion/phelgm. -tele for tachycardia & irregular rate EDUCATION NEEDS: D/C PLAN: To SNF when medically stable lan of Care - Sherly Gan, PT - 06/04/2018 4:58 PM PST Physical Therapy Evaluation [id number] LILIAN HURST [facility] Day: 4 Date of : 1935 Start of care: 06/04/2018 Attending Practitioner: Nguyễn Shepard MD Primary/Referral Diagnosis/ICD-9: Z87.81 History of pelvic fracture Insurance: Payor: [employer] MEDICARE / Plan: [employer] MED[employer]ARE HMO / Product Type: Medicare / Service period from: 06/04/2018 to 09/02/2018 Time in: 1500 Time out: 1530 Patient was seen for a total of 30 minutes of direct one on one skilled physical therapy wh ich included 10 minutes of therapeutic activity Patient seen on 9k Others Present for PT session besides patient and therapist: patient Consulted/Discussed patient's care with: nursing, orthopedics and geriatrics team Brief Hospital Course: Lilian Hurst is a 83 year old admitted on 05/31/2018 for fall w ith left acetabulum fracture, history of ipsilateral DHS from prior hip fracture. Procedure Performed: closed reduction percutaneous fixation of the left acetabulum Relevant Precautions: range of motion as tolerated, non weight bearing left lower extremit y Indication for PT Evaluation: Instruction for safety with mobility following surgery or inj ury Past Medical History: Diagnosis Date COPD (chronic obstructive pulmonary disease) (HCC) GI bleed 2013 HTN (hypertension) Normocytic anemia Prediabetes SVT (supraventricular tachycardia) ([facility]) Past Surgical History: Procedure Laterality Date ANKLE SURGERY BACK SURGERY 1980 RIGHT KNEE SURGERY TREATMENT OF FRACTURE OF LOWER LEG Living Environment: Patient lives alone in a home with dog se Vela who stayed with him on the ground after he fell until neighbor found him. 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 hard of hearing with lef t ear better than right. Patient / Family Goal: to get better, get home when he can Communication/Barriers: albanian/none Pain: indicates 12/28 Vital Signs: see doc flowsheet, 79% initially on room air, replaced oxygen and turned up to 3.0li/min to achieve 92% Cognitive Screen Level of alertness: alert Orientation: ox4 Quality of responses: good Command following: good Judgment / safety awareness: good Physical Assessment ROM: right lower extremity within functional limits. Left ankle pump full, quad set painf ul limiting extension, active assistive range of motion moderate assist to 30 degrees knee f lexion Strength: weight bear as tolerated right lower extremity - able to adhere to non weight be aring status left lower extremity once in standing Edema: moderate left hip Skin Integrity: intact dressing left hip Posture: rounded shoulders Neurological Function Sensation: Sensation intact to light touch bilateral lower extremities per lower quarter c lear Muscle Tone: intact Proprioception: intact Gross Motor: intact Fine Motor: intact Balance: Sitting static: good Sitting dynamic: fair due to non weight bearing status left lower extremity and wanting to balance through it Standing static: fair to poor with need for front wheeled walker Standing dynamic: fair to poor with need for front wheeled walker - cueing to lean onto fr ont wheeled walker Mobility & Transfers: Supine to sit: moderate assist initially with use of handrail and log roll - unable to pus h self into sitting and maximal assist necessary to get upright going to the right Sit to supine: not tested Sit to stand: moderate assist with front wheeled walker, hospital bed slightly elevated Stand to sit: moderate assist for weight bearing status and to control descent to chair, c ueing for hand and foot placement Scoot: contact guard assist Stand pivot transfer: minimal assist for walker stability Gait: minimal assist for walker stability with ambulation x 3' bed to chair Outcome Measure: [facility] BASIC MOBILITY Difficulty turning over in bed 2 - Alot - Maximum/Moderate Assistance Difficulty sitting/standing from chair w/ arms 2 - Alot - Maximum/Moderate Assistance Difficulty moving from supine to sitting on edge of bed 2 - Alot - Maximum/Moderate Assista nce Help needed moving from /to chair/wheelchair 3 - A Little - Minimal/Contact Guard Assist/S upervision Help needed walking in hospital room 3 - A Little - Minimal/Contact Guard assist/Supervisio n Help needed climbing 3-5 steps w/railing 1 - Unable to do/total assistance - Total/Dependen t Assist [facility] Basic Mobility Total Score 13 Interpretation of [facility] Short Form - Basic Mobility: CMS Modifier (G-Code) Score (in points) % of Functional Impairment, Limitation, or Restriction CN 6 100% impaired, limited, restricted CM 7-9 At least 80%, but less than 100% impaired, limited, or restricted CL 10-14 At least 60%, but less than 80% impaired, limited, or restricted CK 15-19 At least 40%, but less than 60% impaired, limited, or restricted CJ 20-22 At least 20%, but less than 40% impaired, limited, or restricted CI 23 At least 1%, but less than 20% impaired, limited, or restricted CH 24 0% impaired, limited, or restricted *This score not officially observed but is implied based on other components of patient's m obility and may be an underestimate Treatment and education provided this date: Therapeutic activity for weight bearing status, activity programming, sequencing through tr chelita Ended session: Patient left in chair with sling for lift under him with call monique within re ach and nursing updated. ASSESSMENT: Lilian Hurst is a 83 year old admitted on 05/31/2018 with prior level of f unction independent. Patient presents here with decreased balance, tolerance, strength. Acut e PT services indicated to address the above mentioned deficits. This patient has good rehabilitation potential to achieve stated goals (see Care Plan for g oals) and requires continued rehabilitation services, given the patient's medical condition is such that the skills of a therapist are required for monitoring and adjustment of interve ntions, specifically acetabular fracture. See Care Plan for goals. Personal factors/Comorbidities; High - 3 or more personal factors. Behavior: None Learning Factors: None. Social Issues: Housing situation impacts discharge Medical Conditions Impacting Care: Geriatric, Cardiac, Challenged integumentary system and Orthopedic Body Systems Elements: High - 4 or more elements Body structures & functions: Pain, Range of motion, Strength, Cardiopulmonary status, Yovana ce, Endurance and Posture Activity limitations: Impaired bed mobility, Impaired transfers, Impaired gait, Difficulty with stairs and Difficulty with activities of daily living Participation restrictions: NWB. Clinical Presentation: High - Unstable: Atypical presentation of condition and Expected slo w progression of recovery Clinical decision making: High Complexity: High level of skill to determine plan of care an d implement changes accordingly Complexity: high Carlos's knowledge of disease process: fair The patient requires services that can be safely and effectively performed only by a quali fied therapist to address the aforementioned and highlighted problems and goals. Goals discussed and agreed upon with Lilian. Activity Recommendations for Nursing partners: *Nursing to re-assess per shift as needed.* - Lights on and curtains open during day hours. - Up to chair for meals or 3x/day with lift DISCHARGE RECOMMENDATIONS: 24 hour skilled care;Continued PT at next level of care Consulted with: nursing re: recommendations PLAN: 6x/week for Gait/transfer training, therapeutic exercise, therapeutic activity, educ ation, neuromuscular reeducation The above plan of care and goals were developed and reviewed with the patient. Should this patient discharge from the hospital prior to the next physical therapy treatmen t, this note shall serve as the discharge summary. lan of Care - Hnasa Guerrero i, AUTOMOTIVE SERVICE CASHIER - 06/04/2018 4:36 PM PSTProblem: LUIS FERNANDO Goals & Interventions Goal: Effective Family Coping Outcome: Goal met Date Met: 06/04/18 Referral Received From: Unit ASSISTANT PRESS OPERATOR called - patient's daughter requesting to speak with LUIS FERNANDO Intervention: Called and spoke with . She says that she needs to return to [place] to get back to work and take care of both her and patient's home ( lives next door to Carlos). She is asking for information on getting Power of Fruit Ii Farmworker paperwork so she can take care o f patient's finances and pay his bills. LUIS FERNANDO provided following information: -Patient will need to be deemed cognitively clear and able to consent for himself in order to sign POA forms -Sharno can locate POA forms online (many options available on internet, due to fact that P OA is legal document- [facility] staff are not allowed to provide POA forms to patients or familie s as it would constitute 'legal advice' -Form will require notary. [facility] does not have notaries on staff. Provided with list of mobile notaries in the area who can be hired to come to hospital to notarize forms. -Patient will need photo ID to provide to notary at time of signing Alternate option would be to have patient himself call the places needs to work with and provide verbal authorization for to access his accounts and pay bills on his beh fpc. This is often faster and easier than process to get POA in place. also requesting letter for her employer verifying Carlos's admission and her need to miss work to be at bedside. LUIS FERNANDO drafted letter and emailed it and notary list to email addresses provided: [email or web address] Recommendation/Plan/Referrals: will work on POA. Provided her with contact info for mobile notary. LUIS FERNANDO provided letter for 's employer. No other social work needs identified at this time. Social work referral completed. Closing case. See medical and ancillary service notes for other needs and care plans. Please call or page if additional social work needs are identified. Hansa Bhatt LCSW Staff Toxicologist- 13[facility] Oncology/7[facility] Medical ICU/ [facility] Orthopedics Phone: [phone] Pager:[phone] andoff - Maricruz Hicks RN - 06/04/2018 8:38 AM PSTNursing Handoff Patient Daily Goal: Pain control, sleep (06/02/182017) Patient Specific Preferences: cluster care (06/01/182041) [facility] IP NURSE HANDOFF: [facility] hospital course events: 05/31: tx from [facility]. Fell 05/30- left hip and pelvic fx 06/01: skeletal traction 06/02: Elevated HR EKG showed SR with PACs. Takes dilt at baseline (none since admission), s tarted on 6.25 mg metop noc 06/02. 06/03 early am 4 beats of v-tach Hx: COPD, HTN, NV 2018, stents, CHF, SVT SAFETY Patient/Family Target: Patient to remain hemodynamically stable AEB: HR <120, SR Progress to Target: Improving As evidenced by: -Per chart/report, Carlos had HR 106-170s 06/02 -06/02 Had 5 beat run v-tach. -Hx of SVT- takes diltiazem baseline, none since admission. Want to avoid bradycardia -Per tele pt irregular in SR with PACs. COMFORT/ANXIETY/BEHAVIOR Patient/Family Target: Manage pain to promote rest & comfort. Progress to Target: Deteriorating As evidenced by: --Due to delirium post operatively, Oxy dose Decreased to 5 mg, and Carlos was able to res t. -Began having indigestion which eventually lead to nausea and vomiting this morning. His om eprozole was given early as he requested and zofran for the N/V Continue to balance pain con trol with delirium prevention. --Daughter states that frequent & high doses of opioids can make Carlos "loopy". RESTORATIVE MEASURES/SELF-MANAGEMENT Patient/Family Target: Promote normal bowel pattern. Progress to Target: No Change As evidenced by: Scheduled bowel meds given last night; mult loose stools throughout day 06/02 and noc 06/03 , incontinent at times; held bowel meds tonight, No BM overnight. As evidenced by: NURSING ASSESSMENT & RECOMMENDATIONS FORWARD Nursing Assessment of Patient Stability Risk: Moderately unstable Recommendations Forward: MOBILITY: Bedrest; Not OOB, Non WB LLE PAIN: 5 mg oxycodone Q4 (decreased from due to metation), IV dilaudid for BTP ORDER FOLLOW-UP: -Dark brown/black sputum and emesis -MD ok with O2 sats 89%-94% on 3L -Strict I & Os -mucinex for chest congestion/phelgm. -tele for tachycardia & irregular rate EDUCATION NEEDS: D/C PLAN: To SNF andoff - Tanvi Estrada RN - 06/03/2018 4:20 PM PSTMeets Phase I Discharge Criteria (Stable For Transfer): yes upon discharge. See event times. Major deviations/events or pertinent findings of lesly-operative stay: marginal sats postop mid 80's. Improve with time and coughing. Agitated and confused. Precedex dosing per anes thesia. 12 ld being obtained. Possible Haldol dosing. Anticipated post-op needs/devices/follow up: pain control. Close monitoring - possible sit ter. Advance diet. Pulmonary toilet. * No Diagnosis Codes entered * Surgical Procedure Planned - Actual Procedure Performed: Procedure(s) with comments: SACROILIAC SCREW - Percutaneous fixation of acetabular lesly-prosthetic fracture Anesthesia: General Length of procedure: In Room/Out of Room: 2 Hr 57 Min 17 Sec Surgeon(s) and Role: * Nguyễn Shepard MD - Primary Neuro: POSS Sedation Level: 2 Last pain medication given: Pain medication totals: 200 fentanyl. 1 dilaudid Additional pain medication information: none Functional Epidural: N/A WHOLESALE ACCOUNT MANAGER: N/A Respiratory: RR: 16 , O2 Sat: 95 % , O2 Delivery: Nasal cannula Breath Sounds: Ex MEI: LLL: RUL: RLL: JYOTI No Comment: no hx. Hx copd. Goal sats 88-94. Cardiac: BP: 128/72 HR: 73. Hx svt, vt, afib and nsr with pvc's and pac's GI: Nausea/Vomiting Status: No Signs/Symptoms: Interventions: Assessment: Comments: denies nausea : Last void: 1500 Contact Name: Nathan [phone] Contact Number: Nathan [phone] Family contacted: Yes Comment:will update prior to tranfser Belongings:returning PIV x 2. Surgical incisions CDI. Confused as in preop. Oriented x self only and follows commands. Restless and tries to get oob. rief Op Note - Nguyễn Shepard MD - 06/03/2018 2:12 PM PSTFormatting of this note might be different from the o riginal. [facility] [place] Department of Orthopaedics & Rehabilitation BRIEF OPERATIVE NOTE Patient: /Age: MRN: CSN: Date: Admission Date: Hospital Day: Lilian Hurst 1935 83 y.o. [id number] 06/03/2018 05/31/2018 3 Attending Surgeon: Nguyễn Shepard MD Fern Picker(s): 1. Mitesh Da Silva MD Preoperative Diagnosis(es): 1. Left anterior column posterior hemitransverse acetabular fr acture (involving two columns) Postoperative Diagnosis(es): Same Procedure(s) Performed: 1. Closed reduction percutaneous fixation of the left acetabulum Anesthesia Type: General Estimated Blood Loss: 100 mL IV Fluids: Please see the anesthesia record Urine Output: Please see the anesthesia record Tourniquet Time: * No tourniquets in log * Complications: None Apparent Orthopaedic Implants: 1. synthes 6.5 & 7.3mm screws Specimens: 1. none Drains: none Findings in Brief: 1. Reduce-able acetabulum OR Disposition: Transferred from the OR in stable condition. POST PROCEDURE PLAN PACU Disposition: Admit to ortho and transfer to the hospital [place], acute care Care Protocol Items: 1. Immobility due to illness 1. PT/OT: Ordered 2. Weight bearing: non-weight bearing, left lower extremity 3. ROM: as tolerated, motion encouraged 2. VTE prophylaxis: high risk, lovenox SC 40mg daily or by weight (consider for 6 weeks, se quential compression devices 3. Acute pain from illness: oral analgesia and IV analgesia, wean as possible 4. Infectious Disease: ceFAZolin, for 24 hours perioperatively 5. Special Concerns: none 6. Disposition: Continue acute inpatient care 7. Orthopaedic Follow-up: Please call the clinic to make a follow up appointment in [facility] 4 weeks with MD Drea 8. Anticipated Discharge: 1-3 days Nguyễn Shepard MD Orthopaedic Trauma andoff - Lakshmi Ortiz RN - 06/02/2018 11:07 PM PSTNursing Handoff Patient Daily Goal: Pain control, sleep (06/02/182017) Patient Specific Preferences: cluster care (06/01/182041) [facility] IP NURSE HANDOFF: [facility] hospital course events: 05/31: tx from [facility]. Fell 05/30- left hip and pelvic fx 06/01: skeletal traction 06/02: Elevated HR EKG showed SR with PACs. Takes dilt at baseline (none since admission), s tarted on 6.25 mg metop noc 06/02. 06/03 early am 4 beats of v-tach Hx: COPD, HTN, NV 2018, stents, CHF, SVT? SAFETY Patient/Family Target: Patient to remain hemodynamically stable AEB: HR <120, SR Progress to Target: Improving As evidenced by: -Per chart/report, Carlos had HR 106-170s 06/02. Possible hx of SVT? tkes diltiazem baselin e, none since admission. Started on metoprolol evening 06/02. Per tele pt in SR with PACs. -One call from tele at 0617 for 5 beat run v-tach. LIP paged. BMS waiting to be collected. COMFORT/ANXIETY/BEHAVIOR Patient/Family Target: Manage pain to promote rest & comfort. Progress to Target: Improving As evidenced by: --Traction 15# maintained. --Previously taking 10 mg oxycodone, but was disoriented to date and pulling tele off noc . Decreased to 5 mg, and Carlos was able to sleep. Continue to balance pain control with d elirium prevention. --Daughter states that frequent & high doses of opioids can make Carlos "loopy". RESTORATIVE MEASURES/SELF-MANAGEMENT Patient/Family Target: Promote normal bowel pattern. Progress to Target: No Change As evidenced by: Scheduled bowel meds given last night; mult loose stools throughout day 06/02 and noc 06/03 , incontinent at times; held bowel meds today. Brief in place. As evidenced by: NURSING ASSESSMENT & RECOMMENDATIONS FORWARD Nursing Assessment of Patient Stability Risk: Moderately unstable Recommendations Forward: MOBILITY: Bedrest; Not OOB; traction 15#. PAIN: 5 mg oxycodone Q4 (decreased from due to metation 06/02 noc), IV dilaudid for BTP ORDER FOLLOW-UP: -MD ok with O2 sats 89%-94% -Strict I & Os -mucinex for chest congestion/phelgm. -maintain skeletal traction 15lbs -tele for tachycardia & irregular rate -Has been NPO since 23:59 06/02, pre-op checklist done, fritz complete -4 beat run v-tach on tele 06/03. Monitor BMS and page if electrolytes need to be replaced. EDUCATION NEEDS: D/C PLAN: OR Sunday morning Barriers to discharge: OR Sunday andoff - Sadia Brown RN - 06/02/2018 6:12 PM PSTNursing Handoff Patient Daily Goal: sleep, bowel movement (06/01/182041) Patient Specific Preferences: cluster care (06/01/182041) [facility] IP NURSE HANDOFF: [facility] hospital course events: 05/31: tx from [place]. Fell 05/30- left hip and pelvic fx 06/01: skeletal traction Hx: COPD, HTN, NV 2018, stents, CHF COMFORT/ANXIETY/BEHAVIOR Patient/Family Target: Manage pain to promote rest & comfort. Progress to Target: Improving As evidenced by: --Carlos states that 10mg oxycodone has been helping his pain; traction 15# maintained. --Daughter states that frequent & high doses of opioids can make Carlos "loopy". Carlos has r emained A&Ox4 throughout day. RESTORATIVE MEASURES/SELF-MANAGEMENT Patient/Family Target: Promote normal bowel pattern. Progress to Target: No Change As evidenced by: Scheduled bowel meds given last night; mult loose stools throughout day & incontinent at times; held bowel meds today. Brief in place. HEALTH PROMOTION Patient/Family Target: Patient will remain hemodynamically stable. Progress to Target: Deteriorating As evidenced by: Carlos has had intermittent episodes of tachycardia today; longest run of 160s-170s for 2- 3mins this AM then dropping to 70-80s with irregular beats. [facility] consult notified and patient placed on tele; intermittent episodes of PACs this afternoon; MD aware. NURSING ASSESSMENT & RECOMMENDATIONS FORWARD Nursing Assessment of Patient Stability Risk: Moderately unstable Recommendations Forward: MOBILITY: Bedrest; Not OOB; traction 15#. PAIN: 10 mg oxycodone Q4, IV dilaudid for BTP ORDER FOLLOW-UP: -MD ok with O2 sats 89%-94% -Strict I & Os -mucinex for chest congestion/phelgm. -maintain skeletal traction 15lbs -tele for tachycardia & irregular rate -NPO at [place]; pre-op check list tonight EDUCATION NEEDS: D/C PLAN: OR Sunday morning Barriers to discharge: OR Sunday andoff - Karen Corral RN - 06/01/2018 11:31 PM PSTNursing Handoff Patient Daily Goal: sleep, bowel movement (06/01/182041) Patient Specific Preferences: cluster care (06/01/182041) [facility] IP NURSE HANDOFF: [facility] hospital course events: 05/31: tx from [place]. Fell 05/30- left hip and pelvic fx 06/01: placed in skeletal traction 15 lbs Hx: COPD, HTN, NV 2018, stents, CHF COMFORT/ANXIETY/BEHAVIOR Patient/Family Target: Manage pain to promote rest & comfort. Progress to Target: No Change As evidenced by: Carlos appears to rest comfortably in between care, but reports high pain scores when aske d. Oxycodone 5-10 mg Q4H PRN, would recommend caution with medication to reduce risk for del irium. Scheduled tylenol. Placed in skeletal traction yesterday, which has been helpful with pain control as well. Sl ept in between care. RESTORATIVE MEASURES/SELF-MANAGEMENT Patient/Family Target: Lilian will have a BM. Progress to Target: Improving As evidenced by: Given suppository per pt request this morning, small BM. Continue with bowel care. NURSING ASSESSMENT & RECOMMENDATIONS FORWARD Nursing Assessment of Patient Stability Risk: Moderately unstable Recommendations Forward: MOBILITY: Bedrest; NWB LLE. Skeletal traction 15 lbs PAIN: 5-10 mg oxycodone Q4H PRN, scheduled Tylenol ORDER FOLLOW-UP: - Monitor mentation, high risk for delirium - bowel care - RT eval & treat for neb - Reg diet, PIV SL, VSS - NPO tonight at midnight in anticipation for surgery EDUCATION NEEDS: TBD D/C PLAN: surgery Sunday Barriers to discharge: Surgery andoff - Kevin, Mary toscano RN - 06/01/2018 5:25 PM PSTNursing Handoff Patient Daily Goal: RN advocacy: safety (06/01/18 9795) Patient Specific Preferences: cluster care (05/31/18 8024) [facility] IP NURSE HANDOFF: [facility] hospital course events: 05/31: tx from [facility]. Fell 05/30- left hip and pelvic fx 06/01: skeletal traction Hx: COPD, HTN, NV 2018, stents, CHF COMFORT/ANXIETY/BEHAVIOR Patient/Family Target: Manage pain to promote rest & comfort. Progress to Target: Improving As evidenced by: Carlos states that 10mg oxycodone has been helping his pain; observed to be resting quietl y between care after traction placed. IV HM 0.4mg given for traction placement. Daughter sta denise that frequent & high doses of opioids can make Carlos "loopy". Carlos has remained A&Ox4 throughout day. RESTORATIVE MEASURES/SELF-MANAGEMENT Patient/Family Target: Promote normal bowel pattern Progress to Target: No Change As evidenced by: Scheduled bowel meds given in AM. PRN Miralax given this afternoon; bisacodyl tablet give n this evening. Continued to promote hydration. NURSING ASSESSMENT & RECOMMENDATIONS FORWARD Nursing Assessment of Patient Stability Risk: Moderately unstable Recommendations Forward: MOBILITY: Bedrest; Not OOB; PAIN: 10 mg oxycodone Q4, IV dilaudid for BTP ORDER FOLLOW-UP: - ok with O2 sats 89%-94% -Strict I & Os -maintain skeletal traction 15lbs -constipation -abnormal venous blood gas labs; MD aware EDUCATION NEEDS: D/C PLAN: surgery Sunday? Barriers to discharge: OR Sunday lan of Care - James Connolly PT - 06/01/2018 4:54 PM PSTPhysical Therapy Contact Note: Patient in traction, with scheduled OR on Saturday 06/03. PT will follow post OR. James Tucker PT, DPT Pager: [phone] lan of [facility] - Bob Hernandez RCP - 06/01/2018 1:03 AM PSTFormatting of this note might be different from the o riginal. Problem: RT Goals & Interventions Goal: Evaluation History and Assessment Pulmonary problems: COPD Smoking history: History Smoking Status Former Smoker Smokeless Tobacco Not on file Comment: per chart. Cannot verify right now pt intubated. Results of recent Chest X-ray: No results found for: CXR Pain:Numeric Pain Score: 8 Oxygen requirement: Heart rate: 73 Respiratory rate: 16 Temperature: Temp: 36.3 C (97.3 F) Breathsounds:Throughout All Nguyen: diminished Cough and sputum production: Respiratory Acuity and Protocol Plan A respiratory evaluation has been completed. Based on this assessment Evaluated for treatme nt under home maintenance therapy. and[place] - Kiah Corral RN - 05/31/2018 10:54 PM PSTNursing Handoff Patient Daily Goal: sleep (05/31/182046) Patient Specific Preferences: cluster care (05/31/182046) [facility] IP NURSE HANDOFF: [place] hospital course events: 05/31: tx from [facility]. Fell 05/30- left hip and pelvic fx Hx: COPD, HTN, NV 2018, stents, CHF COMFORT/ANXIETY/BEHAVIOR Patient/Family Target: Manage pain to promote rest & comfort. Progress to Target: No Change As evidenced by: Carlos appears to rest comfortably in between care, but reports high pain scores when aske d. Oxycodone 5-10 mg Q3H PRN, would recommend caution with medication to reduce delirium. Pi llow under L hip and leg for comfort. Very painful with mov't. Ice pack to hip. RESTORATIVE MEASURES/SELF-MANAGEMENT Patient/Family Target: Lilian will have a BM. Progress to Target: No Change As evidenced by: Given scheduled stool softeners. Lilian reports having issues with constipation at home, but cannot remember his last BM. Increase bowel care PRN. No BM during shift. NURSING ASSESSMENT & RECOMMENDATIONS FORWARD Nursing Assessment of Patient Stability Risk: Moderately unstable Recommendations Forward: MOBILITY: Bedrest; NWB LLE. PAIN: 5-10 mg oxycodone PRN, 0.2mg IV dilaudid for BTP ORDER FOLLOW-UP: - Skeletal traction this morning, called for cart - Monitor mentation, high risk for delirium, disoriented to time/place during shift - bowel care - RT eval & treat for neb - Reg diet, PIV SL, VSS - Xrays done EDUCATION NEEDS: TBD D/C PLAN: surgery Sunday Barriers to discharge: Surgery ary Louis RN - 05/31/2018 6:55 PM PSTNursing Handoff [facility] IP NURSE HANDOFF: [place] hospital course events: 05/31: tx from [place]. Fell 05/30- left hip and pelvic fx Hx: COPD, HTN, NV 2018, stents, CHF COMFORT/ANXIETY/BEHAVIOR Patient/Family Target: Manage pain to promote rest & comfort. Progress to Target: Improving As evidenced by: Carlos states that 10mg oxycodone has been helping his pain; observed to be resting quietl y between care. Painful when turning for bedpan; 0.2mg IV dilaudid helpful. NURSING ASSESSMENT & RECOMMENDATIONS FORWARD Nursing Assessment of Patient Stability Risk: Moderately unstable Recommendations Forward: MOBILITY: Bedrest; Not OOB; PAIN: 10 mg oxycodone, 0.2mg IV dilaudid for BTP ORDER FOLLOW-UP: -pt requesting something for constipation -RT eval & treat for neb EDUCATION NEEDS: D/C PLAN: surgery Sunday? andoff - Souleymane Hood se RN - 05/31/2018 1:35 PM PSTNursing Handoff [place] IP NURSE HANDOFF: [place] hospital course events: 05/31 tx from [facility] . Fell 05/30- left hip and pelvic fx Hx: COPD, HTN, NV 2018, stents, CHF Recommendations Forward: Takes pills whole with water Was receiving 1mg IV dilaudid per report from [facility] MOBILITY: bedrest MOBILITY PLAN:- LAST TIME MOBILIZED:- PAIN: 5mg oxycodone ORDER FOLLOW-UP: - EDUCATION NEEDS: - D/C PLAN: surgery sunday ransfer Note - Gabriela Espinoza, D.O. - 05/30/2018 7:25 PM PST INPATIENT MEDICINE TRANSFER CENTER & [facility]TRA[facility]HOSPITAL ACCEPT NOTE Medicine Hospitalist Attending Author: Mehran Espinoza DO PCP: SHAHEEN Love [address] / [place] [address] FAX: [phone] I was called by transfer line to discuss possible transfer of Lilian Hurst to [facility] Medicine Service. The history is obtained from referring provider and I have not corrob orated history with patient or record, as patient still under direct care of referring [facility]. Referring Physician: Dr. Cabello Referring Site (or [facility] Service): [facility] Specialists involved: , orthopedics Reason for Transfer/Admission: fractured pelvis Floor or ICU Request: Floor HPI/PMH/Exam: Lilian Hurst is an 83 year old man with COPD, hypertension, prior NV, mild chf, who pr esented with a left acetabular fracture after a ground-level fall. Had a ground-level fall this morning on ice. 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 Now has complex acetabular and pelvic fracture. Has multiple medical comorbidities including COPD, hypertension, prior NV, "mild chf", none of which appear to b e active currently. Highly functional at baseline. Current Vitals: 97.9, heart rate 65, 153/85, 92% on RA Pertinent Studies: Labs: Hgb 14.5, platelets 159; chemistries and EKG within normal limits Imaging: chest x-ray within normal limits Procedures: not applicable Code Status: FULL code Disposition: (accepted or declined) After discussion with the emergency department and phys [id number], ultimately admitted to orthopedics as primary with [facility] consulting. Please contact [facility] when the patient arrives and we will provide medical and lesly-operative consultation. Mehran Espinoza D.O. [employer] [facility] Clinical Hospitalist Service Pager [phone] ransfer Note - Daniela Clarke MD - 05/30/2018 6:00 PM [id number] M copd htn prior NV CHF Left acetabular fracture after GLF Ortho not comfortable accepting onto service due to medical fragility Falls outside of co management as this is pelvic fracture Wanting to send to ED for work up to see ortho vs medicine Unfortunately the ED is on divert and there are no physical beds, unable to take to ED to s ort this out Recommended speaking with POD for further direction, happy to help if needed Daniela Daigle MD DIONNE [facility] Department of Emergency Medicine documented in this enc ounter Plan of Treatment + +---------+--------+ + + [...] + + | [facility] | [address] | [place] [address] | | | SERVICES, CORE | PARK [...] | | | LABORATORY | | | FIJIAN | | | SERVICES, | | | [...] | + + + + + | [facility] | [address] | [place] [address] | | | SARA, YOKASTA | [address] | | | [...] | + + + + + | [facility] | [address] | [place] [address] | | | SERVICES, CORE | PARK [...] | | | LABORATORY | | | FIJIAN | | | SERVICES, | | | [...] | + + + + + | [facility] | [address] | [place] [address] | | | SERVICES, CORE | RICHARD [...] + + | [facility] | [address] | [place] [address] | | | SERVICES, CORE | PARK [...] | + + + + + | [facility] | [address] [facility] | [place] [address] | | | SERVICES, CORE | [address] | | | + + + + + X-RAY PORTABLE 2 VIEW ABDOMEN (KUB AND UPRIGHT) (06/04/2018 2:32 PM PST) + + | Specimen | + + | | + + + + + | Narrative | Performed At | + + + | EXAM: MN 2 VIEW ABDOMEN (KUB AND UPRIGHT) History: [...] Interface - 06/04/2018 4:24 PM PST EXAM: MN 2 VIEW | | ABDOMEN (KUB AND [...] LABORATORY | [address] | [place] [address] | | | SERVICES, CORE | PARK [...] | + + + + + | [facility] | [address] | [place] [address] | | | SERVICES, CORE | PARK [...] LABORATORY | [address] | [place] [address] | | | SERVICES, CORE | PARK [...] | | | LABORATORY | | | FIJIAN | | | SERVICES, | | | [...] the MDRD equation recommended by the | [facility] | | National Kidney Disease Education Program. [...] | + + + + + | [facility] | [address] | [place] [address] | | | SERVICES, YOKASTA | RICHARD [...] | | Attending Surgeon: Nguyễn Shepard MD Fern Picker(s): Devendra Allen | | MD Avinash. Preoperative [...] the OR in stable | | condition.Indications: Lilian Hurst is an 83-year-old male. He sustained a [...] anesthesia including . He consented.Description Of Procedure: Lilian was | | brought back to the operative table. General endotracheal anesthesia was induced. He | | was transferred to the [facility] flat top. A sacral bump consisting of 5 squared [...] to the PACU in stable condition.Future Plans: Lilian is going to be | | nonweightbearing [...] problem was referred to my care at [facility] by another | | orthopaedic surgeon. The patient is from the [facility] and traveled many miles to | | get to [facility], bypassing several other hospitals due to the [...] the nature | | of the patients care.Nguyễn Shepard MDZMNicci/MODLDD: 06/03/2018 14:26:09DT: | | 06/03/2018 16:58:33Job #: [id number] | + + MAGNESIUM, PLASMA (06/03/2018 4:37 PM PST) + +-------+ + + + | Component | Value | Ref Range | Performed | Pathologist | | | | | At | Signature | + +-------+ + + + | MAGNESIUM,P | 1.9 | 1.6 - 2.6 mg/dL | [facility] | | | [facility] | | | LABORATORY | | | | | | SARA, | | | | | | [place]ASTA | | + +-------+ + + + + + | Specimen | + + | Blood - Blood | | (substance) | + + + + + + + | Performing | Address | City/State/Zipcode | Phone Number | | Organization | | | | + + + + + | [facility] | [address] | [place] [address] | | | SERVICES, CORE | PARK [...] + + + + + + | ERIKA | 472 | ms | [facility] [...] + + + + + | [facility] | [address] | [place], [place] | | | CARDIOLOGY | [address] | [address] | | + + + + + [...] + + + + + | [facility] | [address] | [place], [place] | | | [facility] | [address] | [address] | | | TESTS | | | | + + + + + X-RAY PELVIS 4+ VIEWS (06/03/2018 2:05 [facility]) + + | Specimen | + + [...] + + + + + | [facility] | [address] | [place], [place] | | | DILAN T[facility] CARE | [address] | [address] | | | TESTS | | | [...] + + | [facility] | [address] [facility] | [place] [address] | | | SERVICES, CORE | PARK [...] | | | LABORATORY | | | FIJIAN | | | SERVICES, | | | [...] the MDRD equation recommended by the | [facility] | | National Kidney Disease Education Program. [...] | + + + + + | [facility] | [address] | [place] [address] | | | SARA, YOKASTA | RICHARD [...] Note | + + | Service Account, Ziegler Res In Interface - 06/02/2018 11:23 AM [...] + + + + + + | [facility]TC-KAJAL | 484 | ms | [facility] [...] + + + + + | [facility] | [address] | [place], [place] | | | CARDIOLOGY | [address] | [address] | | + + + + + [...] | + + + + + | [facility] | [address] | [place] [address] | | | SARA, YOKASTA | [address] | | | [...] | + + + + + | [facility] | [address] [facility] | [place] [address] | | | SERVICES, CORE | RICHARD [...] | | | LABORATORY | | | FIJIAN | | | SERVICES, | | | [...] | [facility] | [address] | [place] [address] | | | SERVICES, CORE | PARK [...] | + + + + + | [facility] | [address] | [place] [address] | | | SERVICES, | [address] [...] | + + + + + | [facility] | [address] | [place] [address] | | | SARA | [address] | | | | TRANSFUSION MEDICINE | [...] LABORATORY | [address] | [place] [address] | | | SERVICES, CORE | [address] | | | + + + + + X-RAY KNEE 2 VIEWS LEFT (06/01/2018 11:48 AM PST) + + | Specimen | + + | | + + + + + | Narrative | Performed At | + + + | EXAM: KNEE 2 VIEWS LEFT HISTORY: eval traction pin placement | [facility] | | COMPARISON: None. FINDINGS/IMPRESSION: Interval placement [...] Note | + + | Service Account, Ziegler Res In Interface - 06/01/2018 6:04 PM [...] Denis MD 06/01/2018 6:02 PM Preliminary: Fortino | | Tiffany Denis MD Dictation initiated: Fortino Denis MD [...] | + + + + + | [facility] | [address] [facility] | [place] [address] | | | SERVICES, CORE | PARK [...] | | | LABORATORY | | | FIJIAN | | | SERVICES, | | | [...] the MDRD equation recommended by the | [facility] | | National Kidney Disease Education Program. [...] | + + + + + | [facility] | [address] [facility] | [place] [address] | | | SERVICES, CORE | RICHARD [...] Preliminary: Fortino Denis MD Dictation initiated: Fortino Qiu | | MD Adeel 06/01/2018 9:22 AM | | + + + + + | Procedure Note | + + | Service Account, Shana Res In Interface - 06/01/2018 9:25 AM [...] LABORATORY | [address] | [place] [address] | | | SERVICES, CORE | PARK [...] | | | LABORATORY | | | FIJIAN | | | SERVICES, | | | [...] | + + + + + | [facility] | [address] | [place] [address] | | | SERVICES, YOKASTA | RICHARD [...] | | | | | 2357, Until [facility] 06/06/18 at 2229, | | | | [...] | | | | | | Until 06/03/18 at 1641, severe | | | | [...] | | mg 20 mg, intravenous, ONCE, | | 19 5:12 | | | [...] 8:31 | | | | | on Sun06/03/18 at 1115, Until | | AM PST [...] | | | | | | on 06/05/18 at 2100 | | | | | [...] PM PST | | | | | Sun05/31/18 at 1312, Until Myesha | | | [...]
--- OUTSIDE RECORDS SUMMARY | ~2020-03-03 | XMS | Encounter Summary ---
Demographics + + + | Address | [address] | | | [place] [address] | + + + | Home Phone | | + + + | Preferred Language | Unknown | + + + | Marital Status | | + + + | Druze Affiliation | Unknown | + + + | Race | White | + + + | Ethnic Group | Not or | + + + Author + + + | Author | [facility] | | | and [place] | + + + | Organization | [facility] | | [...] Team Providers + +------+ + | Care Finance Insurance Manager Name | Role | Phone | + +------+ + | Herlinda Maldonado | PCP | | | PA | | | + +------+ + Reason for Visit Auth/Cert +--------+--------+ + + + + | Status | Reason | Specialty | Diagnoses / | Referred By | Referred To | | | | | Procedures | Contact | Contact | +--------+--------+ + + + + | | | | Diagnoses | | | | | | | Encounter | | | | | | | for removal | | | | | | | of biliary | | | | | | | stent | | | | | | | ([id number]), | | | | | | | Advanced age | | | | | | | (R54) | | | | | | | Procedures | | | | | | | [place] ERCP DX | | | | | | | COLLECTION | | | | | | | SPECIMEN | | | | | | | BRUSHING/WAS | | | | | | | [place] | | | | | | | ERCP | | | | | | | BILIARY/PANC | | | | | | | DUCT STENT | | | | | | | EXCHANGE | | | | | | | W/DIL&WIRE | | | | | | | [place] | | | | | | | ANESTHESIA | | | | | | | UPPER GI | | | | | | | ENDOSCOPIC | | | | | | | PX ERCP | | | | | | | ERCP | | | +--------+--------+ + + + + Encounter Details +--------+ + + + + | Date | Type | Department | Care Team | Description | +--------+ + + + + | 08/14/ | Hospital | [facility] | Jamey Penny | Encounter for | | 2018 | Encounter | MED [facility] OP | MD Sarkis [address] | removal of biliary | | | | [address] | [address] [place] | stent; Calculus of | | | | [place], [place] | [place] [address] | bile duct with acute | | | | [id number] | [phone] | cholecystitis and | | | | [phone] | | obstruction | +--------+ + + + + Social [...] + + + | Blood Pressure | 167/77 | 08/14/2017 2:25 PM | | | | | PDT | | + + + + + | Pulse | 59 | 08/14/2017 2:25 PM | | | | | PDT | | + + + + + | Temperature | 36.4 C (97.5 F) | 08/14/2017 2:12 PM | | | | | PDT | | + + + + + | Respiratory Rate | 13 | 08/14/2017 2:25 PM | | | | | PDT | | + + + + + | Oxygen Saturation | 98% | 08/14/2017 2:25 PM | | | | | PDT | | + + + + + | Inhaled Oxygen | - | - | | | Concentration | | | | + + + + + | Weight | 79.7 kg (175 lb 11.3 | 08/14/2017 11:36 AM | | | | oz) | PDT | | + + + + + | Height | 177.8 cm (5' 10") | 08/14/2017 11:36 AM | | | | | PDT | | + + + + + | Body Mass Index | 25.21 | 08/14/2017 11:36 AM | | | | | PDT | | + + + + + documented in this encounter Medications at Time of [...] + + documented as of this encounter H&P Notes Jaemy Penny MD - 08/14/2017 12:59 PM PDT PRE-ENDOSCOPY HISTORY AND PRE-SEDATION ASSESSMENT PATIENT NAME: William Burns : 1935 TODAY'S DATE: 08/14/2017 PLANNED PROCEDURE: ERCP PERTINENT HISTORY/INDICATION FOR PROCEDURE: William Burns is a 82 y.o. male who is und ergoing endoscopy for stent removal, and to check for residual stones. Pt had an episode of ascending cholangitis and sepsis, treated at [facility]. Had ERCP with sphin cterotomy, stone extraction, and stent placement on 06/26/17. He underwent cholecystectomy in [place] and on the IOC there were possible distal CBD filling defects. Pt reports that he feels well. Denies any abdominal pain presently. PAST HISTORY: Past Medical History: Diagnosis Date Atrial fibrillation (HCC) Backache Bronchitis Bundle branch block, right Calculus of bile duct with acute cholecystitis with obstruction Choledocholithiasis Chronic obstructive pulmonary disease (COPD) ([facility]) Crush injury lower extremities 1966 Left leg and foot Cutaneous abscess of chest wall Disease of sebaceous glands Diverticulosis Diverticulosis of colon Epidermal cyst Epigastric pain Esophageal ulcer with bleeding GERD (gastroesophageal reflux disease) Hip fracture (HCC) 2002 Left Hyperlipidemia Inflamed seborrheic keratosis Inguinal hernia [...] 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 neoplasm skin/ left upper limb, inc shoulder Upper gastrointestinal bleeding PROBLEM LIST: Patient Active Problem List Diagnosis Backache Right fascicular block Calculus of bile duct with acute cholecystitis and obstruction Chronic obstructive pulmonary disease (COPD) Special screening for malignant neoplasms, colon Diverticular disease of colon Cellulitis and abscess of trunk Diverticulosis of colon Sebaceous cyst Hyperlipidemia Hypertension Inflamed seborrheic keratosis Inguinal hernia Neoplasm of uncertain behavior of skin Neoplasm of digestive system Generalized osteoarthritis 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, including shoulder (CODE ) 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, including shoulder (COD E) 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 Repeat in 2003 INGUINAL HERNIA REPAIR 2007 KNEE SURGERY 1968 KNEE SURGERY Right 1967 Open fracture reduction and internal fixation right knee in 1967 LAMINECTOMY Leg surgery Left 1959 Seven Reconstructive surgeries on his left leg and foot in the s with metal remaining . LUMBAR VERTEBRAL FUSION OTHER SURGICAL HISTORY Endobiliary stent placed at [facility] Removal of lesion Right 2010 Right hand and right ear and right hand [address] Flowers RETINAL DETACHMENT SURGERY 2003 Five surgeries on his right eye for retinal detachment in 2003 and 2004 VASECTOMY HOME MEDS: No current facility-administered medications on file prior to encounter. Current Outpatient Prescriptions on File Prior to Encounter Medication Sig Dispense Refill dilTIAZem (DILTIAZEM CD) 240 MG 24 hr [...] Patient Instructions: omeprazole (PRILOSEC) 40 MG capsule Omeprazole 40MG Oral Capsule Delayed Release QTY: 9 0 Days: 0 Refills: 3 Written: 05/23/17 Patient Instructions: 1 once a day pravastatin (PRAVACHOL) 10 mg tablet Pravastatin Sodium [...] "Voltaren" - I don't know Hydrochlorothiazide Rash Mallampati Class 2 (upper half of tonsil fossa) [place] [employer] Anest[employer] Grade:ASA 2 - A patient with mild systemic disease Sedation Plan: Monitored anesthesia care / TIVA EXAMINATION: BP (!) 174/96 | Pulse 57 | Temp 36.6 C (97.9 F) | Resp 16 | Ht 1.778 m (5' 10") | Wt 79.7 kg (175 lb 11.3 oz) | SpO2 96% | BMI 25.21 kg/m General: Alert and oriented Throat: Normal Lungs: Clear Heart: Regular rate and rhythm with out significant murmur Abdomen: flat, normal bowel sounds. Soft, nontender 1. Available medical records have been reviewed. 2. Medication list reviewed. IMPRESSION: Patient appropriate for endoscopy. PLAN: 1. Proceed with procedure as stated above with monitored anesthesia care / TIVA 2. Procedure, indications, risks and alternatives explained to patient/family and they agre ed to proceed and consent was signed. 3. Patient will be reevaluated immediately (1-2 minutes) before sedation administration and approved for the plan as stated above. Electronically Signed by: Jamey Penny MD 08/14/2017 [facility] VERIFICATION OF CONSENT (PARQ) The patient was counseled regarding the procedure, its indications, risks, potential compli cations and alternatives. Any questions were answered. Consent was obtained. Jamey Penny MD, 08/14/2017 12:59 [facility] Portions of this chart may have been created with Boundary voice recognition software. Occasi onal wrong-word or sound-alike substitutions may have occurred due to the inherent lopez itations of voice recognition software. Please read the chart carefully and recognize, using context, where these substitutions have occurred documented in thi s encounter Miscellaneous Notes D-C Instructions Provation - Jamey Penny MD - 08/14/2017 12:57 PM PDTERCP DISCHARG E INSTRUCTIONS Patient: William Burns : 1935 Acct: [id number] Exam Date: Monday, August 14, 2017 Doctor: JAMEY PENNY MD Today your physcian performed an ERCP. The purpose of this handout is to provide you with information/discharge instructions following the procedure. Due to the medications we used to make you more comfortable during the procedure, we strongly advise the following: DO NOT drive or operate machinery for the next 24 hours. DO NOT smoke or drink any alcoholic beverages for the next 24 hours. DO NOT take any sleeping pills or tranquilizers for the reaminder of the day. However, you may resume all your other medications. PLEASE avoid making any critical decisions, including signing any legal documents for the next 24 hours. DO NOT care for any small children without assistance for the next 24 hours. There are many common side-effects that can occur as a result of the exam. Below we have listed a few and how to resolve them. It is normal to feel some nausea or abdominal pressure following the procedure due to the remaining air. Passing air will help relieve this pressure (burping or passing gas). You may have a mild sore throat for the remainder of the day. Sucking on ice chips, throat lozenges or warm water gargles will help to relieve this discomfort. Sometimes the medications given to you during the exam can aggravate the veins. The chemical irritation can cause inflammation or pain along the arm with redness, swelling and warmth. This does not mean there is an infection. You can treat the affected area by applying warm, wet compresses (towels) 4 times a day for 20 minutes at a time until inflammation is resolved. Following your procedure we recommend eating a soft/bland low-fat diet for 1 day. Avoiding fatty foods such as Irish Whiting, hamburgers, kirkland, ham and pork products, will reduce your risks of becoming nauseated and having abdominal discomfort. As with any procedure, there are potential complications that may occur. We would like you to call immediately if any of the following arise: Severe abdominal pain or vomiting. This could be a sign of pancreatitis (inflammation of your pancreas). Severe vomiting with the inability to tolerate fluids. Any vomiting of blood or what may look like coffee grounds. A temperature greater than 100.5 degrees. Bloody or black, tarry stools. Shortness of breath or difficulty swallowing. Your doctor recommends these additional instructions: Take a clear liquid diet for one day, then advance as tolerated to resume your regular diet. The findings and recommendations have been discussed with you. Watch for symptoms of pancreatitis, bleeding, perforation and cholangitis. Please call your physician at with any questions or concerns you may have following your procedure. Patient's Signature Nurse's Signature Date: Escort's Signature JAMEY PENNY MD 08/14/2017 2:11:37 PM This report has been signed electronically. documented in this encounter Plan of Treatment Not on filedocumented as of this encounter Procedures + +--------+ + + + | Procedure Name | Priori | Date/Time | Associated Diagnosis | Comments | | | ty | | | | + +--------+ + + + | XR ABDOMEN AP | Routin | 08/14/2017 | | Results for this | | | e | 2:30 PM | | procedure are in the | | | | PDT | | results section. | + +--------+ + + + | [place] ERCP | Routin | 08/14/2017 | | Results for this | | | e | 2:13 PM | | procedure are in the | | | | PDT | | results section. | + +--------+ + + + | ERCP | | 08/14/2017 | Encounter for | | | | | 1:16 PM | removal of biliary | | | | | PDT | stent ([id number]), | | | | | | Advanced age (R54) | | + +--------+ + + + | ERCP | Routin | 08/14/2017 | | Results for this | | | e | 12:57 PM | | procedure are in the | | | | PDT | | results section. | + +--------+ + + + | PROTIME INR | STAT | 08/14/2017 | | Results for this | | | | 11:48 AM | | procedure are in the | | | | PDT | | results section. | + +--------+ + + + | CBC NO DIFFERENTIAL | STAT | 08/14/2017 | | Results for this | | | | 11:48 AM | | procedure are in the | | | | PDT | | results section. | + +--------+ + + + | COMPREHENSIVE | STAT | 08/14/2017 | | Results for this | | METABOLIC PANEL | | 11:48 AM | | procedure are in the | | | | PDT | | results section. | + +--------+ + + + documented in this encounter Results XR Abdomen AP (08/14/2017 2:30 PM PDT) + + | Specimen | + + | | + + + + + | Narrative | Performed At | + + + | XR ABDOMEN 1 VW 08/14/2017 2:15 PM HISTORY: look for biliary | [facility] | | plastic stent, suspect it may in the small bowel or colon, or it may | | | have passed. COMPARISON: ERCP 08/14/2017. FINDINGS: There is | | | no evidence for a radiopaque biliary stent. Cholecystectomy clips are | | | visualized. Multiple round densities are in the right upper quadrant | | | that could represent biliary stones. There is a nonobstructive bowel | | | gas pattern with no definite evidence for free air. Extensive stool | | | retention is seen. There is mild spondylosis. Mild degenerative | | | changes are present of the bilateral hips. ORIF hardware is in the | | | left proximal femur. Bone mineralization is decreased. Soft tissues | | | are unremarkable. IMPRESSION - No evidence for radiopaque biliary | | | stent. Nonobstructive bowel gas pattern, no stool retention. | | | Multiple round densities in the right upper quadrant that could | | | represent biliary stones. If clinically indicated, a CT scan can | | | be considered. Dictated and Signed by: Chriss Graves MD | | | Electronically signed: 08/14/2017 2:43 PM | | + + + + + | Procedure Note | + + | Juan Jose, Rad Results In - 08/14/2017 2:46 PM PDT XR ABDOMEN 1 VW 08/14/2017 2:15 PM | | | | HISTORY: look for biliary plastic stent, suspect it may in the small bowel or | | colon, or it may have passed. | | | | COMPARISON: ERCP 08/14/2017. | | | | FINDINGS: | | There is no evidence for a radiopaque biliary stent. Cholecystectomy clips are | | visualized. Multiple round densities are in the right upper quadrant that could | | represent biliary stones. There is a nonobstructive bowel gas pattern with no | | definite evidence for free air. Extensive stool retention is seen. There is mild | | spondylosis. Mild degenerative changes are present of the bilateral hips. ORIF | | hardware is in the left proximal femur. Bone mineralization is decreased. Soft | | tissues are unremarkable. | | | | IMPRESSION - | | No evidence for radiopaque biliary stent. | | | | Nonobstructive bowel gas pattern, no stool retention. | | | | Multiple round densities in the right upper quadrant that could represent | | biliary stones. | | | | If clinically indicated, a CT scan can be considered. | | | | Dictated and Signed by: Chriss Graves MD | | Electronically signed: 08/14/2017 2:43 PM | + + + +---------+ + + | Performing | Address | City/State/Zipcode | Phone Number | | Organization | | | | + +---------+ + + | [facility] | | | | + +---------+ + + [place] ERCP (08/14/2017 2:13 PM PDT) + + | Specimen | + + | | + + + + + | Narrative | Performed At | + + + | [place] ERCP 08/14/2017 2:13 PM HISTORY: intra op. COMPARISON: | [facility] | | None. FINDINGS: Multiple fluoroscopic images from an ERCP were | | | obtained. The common bile duct appears to be moderately dilated. | | | IMPRESSION - ERCP images showing moderate dilation of common bile | | | duct. Please see the operative report for further information. | | | Dictated and Signed by: Chriss Graves MD Electronically signed: | | | 08/14/2017 2:29 PM | | + + + + + | Procedure Note | + + | Juan Jose, Marcus Results In - 08/14/2017 2:32 PM PDT [place] ERCP 08/14/2017 2:13 PM | | | | HISTORY: intra op. | | | | COMPARISON: None. | | | | FINDINGS: | | Multiple fluoroscopic images from an ERCP were obtained. The common bile duct | | appears to be moderately dilated. | | | | IMPRESSION - | | ERCP images showing moderate dilation of common bile duct. | | | | Please see the operative report for further information. | | | | Dictated and Signed by: Chriss Graves MD | | Electronically signed: 08/14/2017 2:29 PM | + + + +---------+ + + | Performing | Address | City/State/Zipcode | Phone Number | | Organization | | | | + +---------+ + + | [facility] | | | | + +---------+ + + ERCP (08/14/2017 12:57 PM PDT) + + | Specimen | + + | | + + + + -+ | Narrative | Performed At | + + -+ | | [facility] | | GastroenterologyPatient Name: William Dove Date: 08/14/2017 | [facility] | | 12:57 PMMRN: [id number] #: [id number] of : | | | 5Admit Type: AmbulatoryAge: 82Room: [facility]Gender: MaleNote | | | Status: FinalizedAttending MD: JAMEY PENNY , [facility]cedure: | | | ERCPIndications: Bile duct stone(s), Biliary stent | | | removalProviders: JAMEY PENNY MD, Kiah Orozco, | | | RN, Klaus Loco, RAYRAY, Vani Wisdom, | | | Welfare Case Worker, Yinka Dominguez MD | | | (Anesthesia Staff)Referring MD: Jamel Flowers MD (Referring | | | MD)Medicines: Total IV Anesthesia (TIVA), Indomethacin | | | 100 mg PRComplications: No immediate complications.Procedure: | | | Pre-Anesthesia Assessment: - Prior to the procedure, a | | | History and Physical was performed, and patient medications and | | | allergies were reviewed. The patient is competent. The risks | | | and benefits of the procedure and the sedation options and | | | risks were discussed with the patient. All questions were | | | answered and informed consent was obtained. Patient identification and | | | proposed procedure were verified by the physician, the nurse | | | and the anesthesiologist in the pre-procedure area in the | | | procedure room. Mental Status Examination: alert and oriented. | | | Airway Examination: Mallampati Class II (the uvula but not | | | tonsillar pillars visualized). Respiratory Examination: clear | | | to auscultation. CV Examination: normal. Prophylactic | | | Antibiotics: The patient does not require prophylactic antibiotics. | | | Prior Anticoagulants: The patient has taken no previous | | | anticoagulant or antiplatelet agents. ASA Grade Assessment: II | | | - A patient with mild systemic disease. After reviewing the | | | risks and benefits, the patient was deemed in satisfactory | | | condition to undergo the procedure. The anesthesia plan was to | | | use general anesthesia. Immediately prior to administration of | | | medications, the patient was re-assessed for adequacy to | | | receive sedatives. The heart rate, respiratory rate, oxygen | | | saturations, blood pressure, adequacy of pulmonary ventilation, and | | | response to care were monitored throughout the procedure. The | | | physical status of the patient was re-assessed after the | | | procedure. After obtaining informed consent, the scope was | | | passed under direct vision. Throughout the procedure, the | | | patient's blood pressure, pulse, and oxygen saturations were | | | monitored continuously. The endoscope was introduced through | | | the mouth, and advanced to the duodenum and used to inject | | | contrast into the bile duct. The ERCP was accomplished without | | | difficulty. The patient tolerated the procedure well.Findings: A | | | shield operator film of the abdomen was obtained. Surgical clips, consistent | | | with a previous cholecystectomy, were seen in the area of the | | | right upper quadrant of the abdomen. The biliary plastic stent | | | was not seen. The esophagus was successfully intubated under | | | direct vision. The scope was advanced to the major papilla in | | | the descending duodenum without detailed examination of the | | | pharynx, larynx and associated structures, and upper GI tract. | | | The upper GI tract was grossly normal. There was evidence of a | | | prior sphincterotomy at the ampulla. There was no biliary stent | | | at the ampulla. Cannulation was straightforward. The bile duct was | | | deeply cannulated with the short-nosed traction sphincterotome | | | and 0.035" hydrawire on the first touch and without the use of | | | contrast. A pancreatogram was neither attempted nor obtained. | | | Contrast was injected. I personally interpreted the bile duct | | | images. There was brisk flow of contrast through the ducts. | | | Image quality was excellent. Contrast extended to the entire | | | biliary tree. The common bile duct contained filling defects | | | thought to be stones and sludge. The common bile duct, common | | | hepatic duct and left and right hepatic ducts and all | | | intrahepatic branches were severely dilated and diffusely dilated. The | | | largest diameter was 13 mm. He has a left dominant | | | intrahepatic bile duct system. A cholecystectomy had been | | | performed. The biliary tree was swept with a 12 mm balloon | | | starting at the bifurcation. Sludge was swept from the duct. | | | Three stones were removed. No stones remained. The duct was | | | repeatedly swept until it was devoid of any filling defects, as seen | | | on a final occlusion cholangiogram. There was excellent drainage | | | of bile and dye as seen endoscopically and fluoroscopically. | | | At this point the procedure was complete.Impression: - | | | The previously placed biliary stent was not found at the ampulla, nor | | | was it seen on the shield operator image. - Several filling defects | | | consistent with stones and sludge was seen on the | | | cholangiogram. - The left and right hepatic ducts and all | | | intrahepatic branches, common bile duct and common hepatic duct | | | were severely dilated. - The patient has had a cholecystectomy. | | | - Choledocholithiasis removal was accomplished by balloon | | | extraction. - The biliary tree was swept until it was | | | clear.Recommendation: - The patient will be observed | | | post-procedure, until all discharge criteria are met. - | | | Clear liquid diet for 1 day, then advance as tolerated to resume | | | regular diet. - The findings and recommendations were | | | discussed with the patient. - Watch for pancreatitis, bleeding, | | | perforation, and cholangitis. - KUB today to see if the stent is | | | in the small bowel or colon. - The findings and recommendations | | | were discussed with the patient.JAMEY PENNY MD08/14/2017 | | | 2:11:37 PMThis report has been signed electronically.Number of | | | Addenda: 0Note Initiated On: 08/14/2017 12:57 PMTotal Procedure | | | Duration: 0 hours 34 minutes 11 seconds Scope In: 1:24:35 PMScope Out: | | | 1:58:[address] [facility], [address] [place] [address], | | | [place] [address] | | | - KUB today to see if the stent is in the small bowel or colon. | | | - The findings and recommendations were discussed with the patient. | | |JAMEY PENNY MD | | |08/14/2017 2:11:37 PM | | |This report has been signed electronically. | | |Number of Addenda: 0 | | |Note Initiated On: 08/14/2017 12:57 PM | | |Total Procedure Duration: 0 hours 34 minutes 11 seconds | | |Scope In: 1:24:35 PM | | |Scope Out: 1:58:46 PM | | | [facility], [facility], [place], [place] | | | [address] | | + + -+ + +---------+ + + | Performing | Address | City/State/Zipcode | Phone Number | | Organization | | | | + +---------+ + + | [facility] | | | | + +---------+ + + Protime INR (08/14/2017 11:48 AM PDT) + + + + + + | Component | Value | Ref Range | Performed | Pathologist | | | | | At | Signature | + + + + + + | Prothrombin | 12.5 | 11.3 - 13.9 | [facility] | | | Time | | seconds | [facility] | | | | | [facility] | | | | | | [facility] - | | | | | | LABORATORY | | + + + + + + | INR | 0.94Comment: Usual Oral | 0.90 - 1.10 | [facility] | | | | Anticoagulation Range: | | [facility] | | | | 2.0 - 3.0High | | MEDICAL | | | | Level Oral | | CENTER - | | | | Anticoagulation Range: | | LABORATORY | | | | 2.5 - 3.5 | | | | + + + + + + + + | Specimen | + + | Blood | + + + + + + + | Performing | Address | City/State/Zipcode | Phone Number | | Organization | | | | + + + + + | [facility] | [address] | [place] | [phone] | | [facility] | | [address] | | | - LABORATORY | | | | + + + + + Comprehensive Metabolic Panel (08/14/2017 11:48 AM PDT) + + + + + + | Component | Value | Ref Range | Performed | Pathologist | | | | | At | Signature | + + + + + + | Na | 141 | 136 - 149 | [facility] | | | | | mmol/L | [facility] | | | | | | [facility]ICAL | | | | | | CENTER - | | | | | | LABORATORY | | + + + + + + | K | 4.3 | 3.5 - 5.1 | [facility] | | | | | mmol/L | [facility] | | | | | | [facility] | | | | | | CENTER - | | | | | | LABORATORY | | + + + + + + | Cl | 102 | 98 - 109 mmol/L | [facility] | | | | | | [facility] | | | | | | [facility]ICAL | | | | | | CENTER - | | | | | | LABORATORY | | + + + + + + | CO2 | 30 | 24 - 31 mmol/L | [facility] | | | | | | [facility] | | | | | | [facility] | | | | | | CENTER - | | | | | | LABORATORY | | + + + + + + | Anion Gap | 9 | 3 - 16 mmol/L | [facility] | | | | | | [facility] | | | | | | [facility] | | | | | | CENTER - | | | | | | LABORATORY | | + + + + + + | Glucose | 108 | 70 - 109 mg/dL | [facility] | | | | | | [facility] | | | | | | MEDICAL | | | | | | CENTER - | | | | | | LABORATORY | | + + + + + + | BUN | 13 | 7 - 18 mg/dL | [facility] | | | | | | [facility] | | | | | | [facility] | | | | | | CENTER - | | | | | | LABORATORY | | + + + + + + | Creatinine | 0.85 | 0.60 - 1.30 | [facility] | | | | | mg/dL | [facility] | | | | | | MEDICAL | | | | | | CENTER - | | | | | | LABORATORY | | + + + + + + | eGFR, | >60Comment: GLOMERULAR | >=60 | [facility] | | | non- | FILTRATION | mL/min/1.73m2 | [facility] | | | [place] | RATE,ESTIMATED | | MEDICAL | | | | mL/min/1.80y1Tybe than | | CENTER - | | | | 60 Chronic kidney | | LABORATORY | | | | disease,if found over a | | | | | | 3-month period.Less than | | | | | | 15 Kidney failureFor | | | | | | | | | | | | Americans,multiply the | | | | | | calculated GFR by 1.21. | | | | | | | | | | + + + + + + | Calcium | 9.2 | 8.3 - 10.5 | [facility] | | | | | mg/dL | [facility] | | | | | | MEDICAL | | | | | | CENTER - | | | | | | LABORATORY | | + + + + + + | Albumin | 4.0 | 3.2 - 5.0 g/dL | [facility] | | | | | | [facility] | | | | | | MEDICAL | | | | | | CENTER - | | | | | | LABORATORY | | + + + + + + | Bilirubin | 0.8Comment: This is an | 0.1 - 1.5 mg/dL | [facility] | | | Total | appended report. These | | [facility] | | | | results have been | | MEDICAL | | | | appended to a previously | | CENTER - | | | | preliminary verified | | LABORATORY | | | | report. | | | | + + + + + + | Total | 6.6 | 6.0 - 7.8 g/dL | [facility] | | | Protein | | | [facility] | | | | | | MEDICAL | | | | | | CENTER - | | | | | | LABORATORY | | + + + + + + | AST | 18Comment: This is an | 10 - 42 U/L | [facility] | | | | appended report. These | | [facility] | | | | results have been | | MEDICAL | | | | appended to a previously | | CENTER - | | | | preliminary verified | | LABORATORY | | | | report. | | | | + + + + + + | ALT | 15Comment: This is an | 6 - 45 U/L | [facility] | | | | appended report. These | | [facility] | | | | results have been | | MEDICAL | | | | appended to a previously | | CENTER - | | | | preliminary verified | | LABORATORY | | | | report. | | | | + + + + + + | Alkaline | 65Comment: This is an | 40 - 110 U/L | [facility] | | | Phosphatase | appended report. These | | [facility] | | | | results have been | | MEDICAL | | | | appended to a previously | | CENTER - | | | | preliminary verified | | LABORATORY | | | | report. | | | | + + + + + + | Globulin | 2.6 | 2.1 - 3.8 g/dL | [facility] | | | | | | [facility] | | | | | | MEDICAL | | | | | | CENTER - | | | | | | LABORATORY | | + + + + + + | Albumin/Nohemi | 1.5 | 0.8 - 2.0 | [facility] | | | bulin Ratio | | | [facility] | | | | | | MEDICAL | | | | | | CENTER - | | | | | | LABORATORY | | + + + + + + | BUN/Creatin | 15.3 | | [facility] | | | ine Ratio | | | [facility] | | | | | | MEDICAL | | | | | | CENTER - | | | | | | LABORATORY | | + + + + + + + + | Specimen | + + | Blood | + + + + + + + | Performing | Address | City/State/Zipcode | Phone Number | | Organization | | | | + + + + + | [facility] | [address] | [place] | [phone] | | [facility] | | [address] | | | - LABORATORY | | | | + + + + + CBC no Differential (08/14/2017 11:48 AM PDT) + +-------+ + + + | Component | Value | Ref Range | Performed | Pathologist | | | | | At | Signature | + +-------+ + + + | White Blood | 7.6 | 4.0 - 11.0 K/uL | [facility] | | | Cells | | | [facility] | | | | | | MEDICAL | | | | | | CENTER - | | | | | | LABORATORY | | + +-------+ + + + | Red Blood | 4.84 | 4.30 - 5.70 | [facility] | | | Cells | | M/uL | [facility] | | | | | | MEDICAL | | | | | | CENTER - | | | | | | LABORATORY | | + +-------+ + + + | Hemoglobin | 14.3 | 13.5 - 18.0 | [facility] | | | | | g/dL | [facility] | | | | | | MEDICAL | | | | | | CENTER - | | | | | | LABORATORY | | + +-------+ + + + | Hematocrit | 44.0 | 40.0 - 51.0 % | [facility] | | | | | | [facility] | | | | | | MEDICAL | | | | | | CENTER - | | | | | | LABORATORY | | + +-------+ + + + | MCV | 91.0 | 83.0 - 101.0 fL | [facility] | | | | | | [facility] | | | | | | MEDICAL | | | | | | CENTER - | | | | | | LABORATORY | | + +-------+ + + + | MCH | 29.6 | 28.0 - 35.0 pg | [facility] | | | | | | [facility] | | | | | | MEDICAL | | | | | | CENTER - | | | | | | LABORATORY | | + +-------+ + + + | MCHC | 32.5 | 32.0 - 36.0 | [facility] | | | | | g/dL | [facility] | | | | | | MEDICAL | | | | | | CENTER - | | | | | | LABORATORY | | + +-------+ + + + | RDW-CV | 14.4 | <15.0 % | [facility] | | | | | | [facility] | | | | | | MEDICAL | | | | | | CENTER - | | | | | | LABORATORY | | + +-------+ + + + | Platelet | 198 | 140 - 440 K/uL | [facility] | | | Count | | | [facility] | | | | | | MEDICAL | | | | | | CENTER - | | | | | | LABORATORY | | + +-------+ + + + | MPV | 9.5 | fL | [facility] | | | | | | [facility] | | | | | | MEDICAL | | | | | | CENTER - | | | | | | LABORATORY | | + +-------+ + + + + + | Specimen | + + | Blood | + + + + + + + | Performing | Address | City/State/Zipcode | Phone Number | | Organization | | | | + + + + + | [facility] | [address] | [place] | [phone] | | [facility] | | [address] | | | - LABORATORY | | | | + + + + + documented in this encounter Visit Diagnoses + + | Diagnosis | + + | Encounter for removal of biliary stent - Primary | + + | Calculus of bile duct with acute cholecystitis and obstruction | + + documented in this encounter Administered Medications + +--------+ +--------+------+------+ | Medication Order | MAR | Action | Dose | Rate | Site | | | Action | Date | | | | + +--------+ +--------+------+------+ | indomethacin (INDOCIN) | Given | 08/15/19 | 100 mg | | | | suppository Rectal, PRN, | | 18 1:22 | | | | | Starting 08/14/17 at 1322 | | PM PDT | | | | + +--------+ +--------+------+------+ +---+---+ | | | +---+---+ + +---------+ +---+---+---+ | lactated ringers (LR) infusion | New Bag | 08/15/19 | | | | | at 100 mL/hr, Intravenous, | | 18 1:20 | | | | | CONTINUOUS, Starting 08/14/17 | | PM PDT | | | | | at 1215, Pre-op | | | | | | + +---------+ +---+---+---+ +---------+ +---+---+---+ | New Bag | 08/15/19 | | | | | | 18 12:00 | | | | | | PM PDT | | | | +---------+ +---+---+---+ + +---+ | | | + +---+ | ondansetron (ZOFRAN) injection | | | 4 mg 4 mg, Intravenous, ONCE | | | PRN, Nausea, Vomiting, Starting | | | 08/14/17 at 1448, For 1 dose, | | | Post-op/Phase II | | + +---+ | | | + +---+ documented in this encounter
--- OUTSIDE RECORDS SUMMARY | ~2020-03-03 | XMS | Encounter Summary ---
Demographics + + + | Address | [address] | | | [place] [address] | + + + | Home Phone | | + + + | Preferred Language | Unknown | + + + | Marital Status | | + + + | Congregation Affiliation | Unknown | + + + | Race | White | + + + | Ethnic Group | Not or | + + + Author + + + | Author | [facility] | | | and [place] | + + + | Organization | [facility] | | | [...] Team Providers + +------+ + | Care Belt Sander Stone Name | Role | Phone | + +------+ + | Herlinda Maldonado | PCP | | | PA | | | + +------+ + Encounter Details +--------+ + + + + | Date | Type | Department | Care Team | Description | +--------+ + + + + | 01/09/ | Abstract | [facility] [place] | Maximilian Abreu | | | 2019 | | CARDIOLOGY [address] | Jon, MD [address] | | | | [place], | [address] [place] | | | | | [place] [address] | [place] [address] | | | | | [phone] | [phone] | | | | | | | [...]
--- OUTSIDE RECORDS SUMMARY | ~2020-03-03 | XMS | Encounter Summary ---
Demographics + + + | Address | [address] [facility] [address] | | | [place] [address] | + + + | Home Phone | | + + + | Preferred Language | Unknown | + + + | Marital Status | | + + + | Tenriism Affiliation | Unknown | + + + | Race | White | + + + | Ethnic Group | Not or | + + + Author + + + | Author | [facility] | | | and [place] | + + + | Organization | [facility] | | | [...] Team Providers + +------+ + | Care Squilgeer Name | Role | Phone | + [...] + + + | Closed | | | Diagnoses | Y[facility]anny | [facility] | | | | | Chronic | She | HOSPITAL | | | | | obstructive | MD Domonique | SLEEP | | | | | pulmonary | [address] | DISORDERS LAB | | | | | disease, | [address] | [address] | | | | | unspecified | TREASURE [address] | [address] | | | | | COPD type | [place], [place] | [place] | | | | | ([facility]) | [address] | [address] | | | | | Procedures | Phone: | Phone: | | | | | Pulmonary | [phone] | [phone] | | | | | function | Fax: | Fax: | | | | | test | [phone] | [phone] | +--------+--------+ + + + + Reason for Visit Evaluate & Treat (Routine) +--------+ + + + + + | Status | Reason | Specialty | Diagnoses / | Referred By | Referred To | | | | | Procedures | Contact | Contact | +--------+ + + + + + | Closed | Specialty | Pulmonary | Diagnoses | Lois, | Yovanny, | | | Services | Disease / | Chronic | Maximilian | She | | | Required | Pulmonology | obstructive | MD Jon | MD Domonique | | | | | pulmonary | [address] | [address] | | | | | disease, | St [place] | [address] | | | | | unspecified | [place] | [place] | | | | | COPD type | [address] | [address] Phone: | | | | | ([facility]) | Phone: | [phone] | | | | | | [phone] | Fax: | | | | | | Fax: | [phone] | | | | | | [phone] | | +--------+ + + + + + Encounter Details +--------+---------+ + + + | Date | Type | Department | Care Team | Description | +--------+---------+ + + + | 04/30/ | Office | [facility] | Yovanny, | Shortness of breath | | 2019 | Visit | PULMONOLOGY [address] | She Youssef, | (Primary Dx); | | | | [address] | [address] | Chronic obstructive | | | | [place] | [place], | pulmonary disease, | | | | [address] | [place] [address] | unspecified COPD | | | | [phone] | [phone] | type (HCC); | | | | | | Pulmonary | | | | | | hypertension (HCC); | | | | | | Personal history of | | | | | | tobacco use, | | | | | | presenting hazards | | | | | | to health | +--------+---------+ + + + Social History [...] + + + | Blood Pressure | 117/60 | 04/30/2019 1:33 PM | | | | | PST | | + + + + + | Pulse | 62 | 04/30/2019 1:33 PM | | | | | PST | | + + + + + | Temperature | 36.1 C (96.9 F) | 04/30/2019 1:33 PM | | | | | PST | | + + + + + | Respiratory Rate | - | - | | + + + + + | Oxygen Saturation | 94% | 04/30/2019 1:33 PM | | | | | PST | | + + + + + | Inhaled Oxygen | - | - | | | Concentration | | | | + + + + + | Weight | 74.8 kg (165 lb) | 04/30/2019 1:33 PM | | | | | PST | | + + + + + | Height | 180.3 cm (5' 11") | 04/30/2019 1:33 PM | | | | | PST | | + + + + + | Body Mass Index | 23.01 | 04/30/2019 1:33 PM | | | | | PST | | + + + + + documented in this encounter Progress Notes Brock Bocanegra, Marketing Traffic Coordinator - 04/30/2019 1:30 PM PST3 step testing Oximetry Exercise (code) 28802 1. At rest on room air: Time:2:24 PM Heart rate:57 Oxygen saturations:95% 2. At exercise on room air: Time:2:25 PM Heart rate:61 Oxygen saturations:91% 3. At exercise with oxygen: Time: Heart rate: Oxygen Saturations: Liters per minute: She Owen MD - 04/30/2019 1:30 PM PST Subjective Patient ID: William Burns is a 84 y.o. male with HTN, RBB, AF on Eliquis, history of UG IB/GERD on PPI therapy, recent history of bowel obstruction and CBD stones, s/p hip surgery in May 2018, referred to us for shortness of breath and COPD. HPI Mr Burns is an 84 yr old man with chronic medical issues, referred to us for shortness of br eath. He has been suspected of having COPD, and had been on frequent albuterol-ipratropium n ebulization at one point which resulted in development of atrial fibrillation. He is now ant icoagulated with Eliquis and is on Cardizem. He also reports that he has been admitted for a bowel obstruction in [facility] and he is recovering from this. He says that he had a lot of congestion and cough about 4 months ago, but this is better. He rarely has a cough. He c omplains mostly of dyspnea, even at rest, with a sensation that he cannot get a deep breath in. He is not on any inhaled medications right now. He is participating in PT, and according to him, sometimes his sats drop to 88%. He is not on any oxygen supplementation. He denies chest pains, orthopnea or PNDs. He does have chronic pedal edema, and was taken off diuretic s the last time he was admitted in [facility]. He says he sleeps well abby denies night ti me awakening. He has chronic constipation, and this is better now. He had a fx of the L acet abulum, and had closed reduction and fixation of the L acetabulum in Jun 03, 2018. He uses a cane to ambulate. He reports that he has had episodes of dysphagia, and choking on corn ker lorne. He denies reflux but has been on a PPI chronically because of a history of UGIB. He has been maintained on Eliquis, and so far, he has not shown signs of bleeding. SOCIAL HISTORY He is a past smoker, stopped 30 years ago. He smoked 40 years up to 3 packs a day. 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 He has a dog. He denies owning pigeons. He grew up in [place]. He denies having respirator y issues when he was younger. The following elements of the patient's history were reviewed and updated as appropriate. T hey are available elsewhere in the patient record. allergies, current medications, past fam michelle history, past medical history, past social history, past surgical history and problem li st Review of Systems Constitutional: Positive for fatigue. Negative for fever and unexpected weight change. HENT: Negative for congestion, sore throat, trouble swallowing and voice change. Respiratory: Positive for cough and shortness of breath. Negative for apnea, choking, wheez ing and stridor. Cardiovascular: Positive for leg swelling. Negative for chest pain and palpitations. Gastrointestinal: Positive for constipation. Negative for abdominal pain, diarrhea, nausea and vomiting. Genitourinary: Negative for difficulty urinating. Musculoskeletal: Positive for arthralgias, back pain and gait problem. Negative for joint s welling, myalgias and neck pain. Skin: Negative for rash. Neurological: Negative for dizziness. Psychiatric/Behavioral: Negative for sleep disturbance. All other systems reviewed and are negative. 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 Repeat in 2003 HIP FRACTURE SURGERY Left 05/2018 INGUINAL HERNIA REPAIR 2007 KNEE SURGERY 1968 KNEE SURGERY Right 1967 Open fracture reduction and internal fixation right knee in 1967 LAMINECTOMY Leg surgery Left 1959 Seven Reconstructive surgeries on his left leg and foot in the with metal remaining . LUMBAR VERTEBRAL FUSION OTHER SURGICAL HISTORY Endobiliary stent placed at [facility] Removal of lesion Right 2009 Right hand and right ear and right hand [address] Flowers RETINAL DETACHMENT SURGERY 2003 Five surgeries on his right eye for retinal detachment in 2003 and 2004 VASECTOMY Objective BP 117/60 | Pulse 62 | Temp 36.1 C (96.9 F) (Oral) | Ht 1.803 m (5' 11") | Wt 74.8 kg (165 lb) | SpO2 94% | BMI 23.01 kg/m Physical Exam Vital signs reviewed. Oxygen saturation noted at 94% on ambient air, did not desaturate on 3 min walk test. GENERAL: pleasant, cooperative, oriented, not in distress HEENT: pink conjunctiva, anicteric sclerae, moist oral mucosae and without any lesions, nor mal appearing nasal mucosae; no JVD; MALAMPATTI 3; no thyromegaly; no cervicolymphadenopathi es CVS: PMI laterally displaced, IRRR, S1 and S2, grade 2/6 OLIVIA along L parasternal border CHEST: Examination of the chest was unremarkable. There were no bony deformities, no asymme try, and no other abnormalities. LUNGS: Normal effort, Equal in expansion, resonant to percussion, clear and equal breath so unds, no wheezes/rales/rhonchi ABDOMEN: Flat abdomen, NABS, non-tender on palpation, liver span normal, no masses palpated EXTREMITIES: good distal pulses, no cyanosis, no clubbing, no nail abnormalities, +2 edema up to mid tibial regions NEURO: awake and oriented, no focal neurologic deficits, uses a cane to ambulate. LABORATORY AND IMAGING Pulmonary Function Test: None to review. FEV1 FVC FEV1/FVC TLC RV/TLC DLCO No recent chest imaging to review. Echo done on 03/26/19 reviewed Summary Left ventricle is normal in size and function. Ejection fraction is estimated at 62%. Impaired relaxation compatible with diastolic dysfunction (reversed E/A ratio). Structurally normal mitral valve with mild insufficiency. Structurally normal tricuspid valve with mild to moderate insufficiency and peak velocity consistent with RVSP 50-55 mmHg. Left atrium is mildly enlarged. CXR done on 06/02/18 reviewed FINDINGS: The cardiomediastinal silhouette is unchanged. Persistent flattening of the diaphragms consistent with chronic obstructive pulmonary physi ology. Scattered subsegmental atelectasis. Increasing interstitial airspace opacities particularly at the left upper lung zone. No significant pneumothorax or pleural effusion. No acute osseous abnormalities. Assessment /Plan 1. Shortness of breath Mr Burns is an 84 yr old man who is here because of shortness of breath. He says that he has been short of breath for 12-14 years now. I think that this may be multifactorial -underly ing chronic AF with diastolic dysfunction, presence of pulmonary hypertension, and fluid ret ention (presents with significant pedal edema). He also may have underlying COPD/emphysema. Pls see discussion below. 2. Chronic obstructive pulmonary disease, unspecified COPD type (HCC) Mr Burns has been suspected of COPD in the past. I have requested for a formal PFT to determ ine baseline lung function. I have also requested for a CXR. His last CXR in May showed acut e infiltrates in the MEI. Will defer inhaled medication recommendation until we see his PFT. His studies were sent to [facility]. Three minute walk test did not show any evidence of hypoxemia on exertion today. - Pulmonary function test; Future - XR Chest PA and Lateral; Future 3. Pulmonary hypertension (HCC) He has evidence of pulmonary hypertension on Echo with an RVSP of 50-55. I suspect that thi s may be due to diastolic dysfunction, and chronic AF. He presents with significant swelling today. He has been taken off his diuretics. I have given his PCP's office a call, since I t hink that this may need to be resumed given evidence of swelling. I spoke to their nurse and he will be contacted for a follow up. 4. Personal history of tobacco use, presenting hazards to health He smoked at least 80 pack years, up to 120 pack years. He stopped about 30 years ago and sharron patino no longer qualifies for CT lung screening. Thank you for allowing us to participate in this patient's care. A return visit has been re quested/scheduled in 2-3 months for close clinical follow up, and after the above tests are done. The patient was instructed to call our clinic for any questions, and for any concerns regarding worsening dyspnea, cough or change in sputum production. We will see the patient s ooner than the recommended follow up date, if with any worsening of symptoms. She Hairston MD Pulmonary and Critical Care Medicine [facility]/[address] , [facility] [place] [address] documente d in this encounter Plan of Treatment + +---------+--------+ + + | Name | Type | Priori | Associated Diagnoses | Order Schedule | | | | ty | | | + +---------+--------+ + + | Pulmonary function | PFT | Routin | Chronic | 1 Occurrences | | test | | e | obstructive | starting 04/30/2019 | | | | | pulmonary disease, | until 04/30/2020 | | | | | unspecified COPD | | | | | | type (HCC) | | + +---------+--------+ + + | XR Chest PA and | Imaging | Routin | Chronic | Expected: | | Lateral | | e | obstructive | 04/30/2019, Expires: | | | | | pulmonary disease, | 04/30/2020 | | | | | unspecified COPD | | | | | | type (HCC) | | + +---------+--------+ + + documented as of this encounter Visit Diagnoses + + | Diagnosis | + + | Shortness of breath - Primary | + + | Chronic obstructive pulmonary disease, unspecified COPD type (HCC) | + + | Pulmonary hypertension (HCC) Other chronic pulmonary heart diseases | + + | Personal history of tobacco use, presenting hazards to health | + + documented in this encounter
--- OUTSIDE RECORDS SUMMARY | ~2020-03-03 | XMS | Encounter Summary ---
Demographics + + + | Address | [address] [address] [address] [facility] | | | [place] [address] | + + + | Home Phone | | + + + | Preferred Language | Unknown | + + + | Marital Status | | + + + | Zoroastrian Affiliation | Unknown | + + + | Race | White | + + + | Ethnic Group | Not or | + + + Author + + + | Author | [facility] | | | and [place] | + + + | Organization | [facility] | | | [...] Team Providers + +------+ + | Care Cell Cleaner Name | Role | Phone | [...] + + | 02/17/ | Emergency | JANESANDRA GARCIA CAMILO | Jamil Lara, | Skin tear of left | | 2018 | | [facility] | MD [address] | elbow without | | | | CENTER [address] | [place], [place] | complication, | | | | [place], [place] | [address] | initial encounter | | | | [address] | | (Primary Dx); Fall | | | | [phone] | | from slip, trip, or | [...] Care Everywhere.Laceration, Chi n, Suture or Tape (Barbadian)documented in this encounter Medications at Time of [...] | | 18 | | | m ([place]) 2.5-0.5 | | | | | | [...] might be different fr om the original. [facility] Emergency Department Encounter Note [address] [place] [id number] PCP:SHAHEEN Toro ED15 CHIEF COMPLAINT: Chief Complaint [...] Past Medical History: Diagnosis Date Atrial fibrillation ([facility]) Backache Bronchitis Bundle branch block, right Calculus of bile duct with acute cholecystitis with obstruction Choledocholithiasis Chronic obstructive pulmonary disease (COPD) ([facility]) Crush injury lower extremities 1966 Left leg and foot Cutaneous abscess of chest wall Disease of sebaceous glands Diverticulosis Diverticulosis of colon Epidermal cyst Epigastric pain Esophageal ulcer with bleeding GERD (gastroesophageal reflux disease) Hip fracture ([facility]) 2003 Left Hyperlipidemia Inflamed seborrheic keratosis [...] BACK SURGERY 1981 Lower back COLONOSCOPY 09/23/2013 [facility] ENDOSCOPY 08/10/2013 [facility] ERCP N/A 08/14/2017 Procedure: ERCP; Surgeon: Jamey Hdz MD; Location: [facility] MEDICAL PROCEDURE UNIT HIP FRACTURE SURGERY [...] OTHER SURGICAL HISTORY Endobiliary stent placed at [facility] Removal of lesion Right 2009 Right hand [...] pleasant and talkative, alert and appropriate, conversant [facility] nurse and staff. HEENT: Atraumatic, patient follows [...] were reviewed along with EMS notes and skilled nursing record s if applicable. Medication and Allergy lists reviewed in [facility]. Nurses note and old record s were reviewed if available within [facility] ER course 18:11 - Patient care initiated. [...] Certified Why: If symptoms worsen Contact information: [address] [place] [address] New Prescriptions No medications on file Discontinued Medications No medications on file Discharge References/Attachments Laceration, Chin, Suture or Tape (Barbadian) Portions of this chart may have been created with [employer] voice recognition software. Occasi onal wrong-word or sound-alike substitutions may have occurred due to the inherent lopez itations of voice recognition software. Please read the chart carefully and recognize, using context, where these substitutions have occurred. Jamil Lara MD 02/17/18 183 cNeestephania, Brittney Hernández RN - 02/17/2018 5:57 PM PDTTripped and fell in his basement, skin tear to LT elbow. Denies head injury or LOC. C/o some pain to LT ribs. States he needs Tetanus immunization. Yossi ically signed by Brittney Mendoza RN at 02/17/2018 [...] | | + +--------+ +---------+------+ + | [id number] | Given | 02/18/20 | 0.5 mLs [...]
--- OUTSIDE RECORDS SUMMARY | ~2020-03-03 | XMS | Clinical Summary ---
Demographics + + + | Address | [address] [address] | | | [place] [address] | + + + | Home Phone | | + + + | Preferred Language | Unknown | + + + | Marital Status | | + + + | Cheondoism Affiliation | Unknown | + + + | Race | White | + + + | Ethnic Group | Not or | + + + Author + + + | Author | [facility] | | | and [place] | + + + | Organization | [facility] | | | [...] Team Providers + +------+ + | Care Garage Supervisor Name | Role | Phone | + +------+ + | Herlinda Maldonado | PCP | | | PA | | | + +------+ + Allergies + + + + + + | Active Allergy | Reactions | Severity | Noted | Comments | | | | | Date | | + + + + + + | Budesonide-Formotero | Shortness Of Breath | High | 08/09/19 | Reaction: "I can't | | l Fumarate | | | 18 | breathe when I use | | | | | | it." | + + + + + + | Diclofenac Sodium | | | 08/03/19 | AKA "Jes" - I | | | | | 16 | don't know | + + + + + + | Eucalyptus Oil | Shortness Of Breath | High | 07/30/19 | Other reaction(s): | | | | | 13 | Asthma, Shortness | | | | | | of Breath | + + + + + + | Fluticasone-Salmeter | Shortness Of Breath | High | 08/07/19 | Other reaction(s): | | ol | | | 13 | Asthma, Shortness | | | | | | of Breath | + + + + + + | Hydrochlorothiazide | Rash | Low | 08/09/19 | | | | | | 18 | | + + + + + + Medications + + + +---------+------+------+-------+ | Medication | Sig | Dispensed | Refills | Star | End | Statu | | | | | | t | Date | s | | | | | | Date | | | + + + +---------+------+------+-------+ | loratadine | Claritin 10MG Oral | | 0 | 03/1 | | Activ | | (CLARITIN) 10 mg | Tablet QTY: 0 tablet | | | 10/07 | | e | | tablet | Days: 0 Refills: 0 | | | 16 | | | | | Written: 08/03/15 | | | | | | | | Patient | | | | | | | | Instructions: | | | | | | + + + +---------+------+------+-------+ | dilTIAZem | DilTIAZem CD 240MG | | 0 | 01/0 | | Activ | | (DILTIAZEM CD) 240 | Oral Capsule | | | 3/20 | | e | | MG 24 hr capsule | Extended Release 24 | | | 18 | | | | | Hour QTY: 30 Days: | | | | | | | | 0 Refills: 11 | | | | | | | | Written: 05/23/17 | | | | | | | | Patient | | | | | | | | Instructions: BID | | | | | | + + + +---------+------+------+-------+ | pravastatin | Pravastatin Sodium | | 0 | 01/0 | | Activ | | (PRAVACHOL) 10 mg | 10MG Oral Tablet | | | 3/20 | | e | | tablet | QTY: 30 Days: 0 | | | 18 | | | | | Refills: 11 | | | | | | | | Written: 05/23/17 | | | | | | | | Patient | | | | | | | | Instructions: 1 once | | | | | | | | a day | | | | | | + + + +---------+------+------+-------+ | | 3 mLs Every 8 hours. | | 0 | 02/1 | | Activ | | albuterol-ipratropiu | | | | 09/07 | | e | | m (DUONEB) 2.5-0.5 | | | | 18 | | | | mg/3 mL SOLN | | | | | | | + + + +---------+------+------+-------+ | omeprazole | Take 40 mg by mouth | | 0 | | | Activ | | (PRILOSEC) 40 MG | every morning | | | | | e | | capsule | (before breakfast). | | | | | | + + + +---------+------+------+-------+ | apixaban (ELIQUIS) | Take 5 mg by mouth 2 | | 0 | | | Activ | | 5 mg tablet | times daily. | | | | | e | + + + +---------+------+------+-------+ | dilTIAZem | Take 180 mg by mouth | | 0 | 02/18 | | Activ | | (CARDIZEM CD) 180 mg | nightly. | | | 01/07 | | e | | 24 hr capsule | | | | 19 | | | + + + +---------+------+------+-------+ Active Problems + + + | Problem | Noted Date | + + + | Encounter for removal of biliary stent | 08/13/2017 | + + + + + | Overview: 07/13/2017: Иван Montaño [place] | | Endobiliary stent placed at [facility] | + + + + + | Abnormal EKG: Louis STONE | 08/13/2017 | + + + | GERD (gastroesophageal reflux disease) | 08/13/2017 | + + + | Atrial fibrillation | 08/13/2017 | + + + + + | Overview: Echocardiogram March 2019 Left ventricle is | | normal in size and function. Ejection fraction is estimated at | | 62%. Impaired relaxation compatible with diastolic dysfunction | | (reversed E/A ratio). Structurally normal mitral valve with mild | | insufficiency. Structurally normal tricuspid valve with mild to | | moderate insufficiency and peak velocity consistent with RVSP | | 50-55 mmHg. Left atrium is mildly enlarged.24-hour Holter monitor | | March 2019 notable for underlying sinus rhythm with mean | | heart rate 58. Frequent PVCs without significant sustained runs. | | Frequent PACs without significant sustained runs, comprising 14% | | of all beats. Mild predominantly nocturnal bradycardia without | | pauses. No symptoms reported. | + + + + + | MIRIAM Inhibotors - Daily Use | 08/13/2017 | + + + | Calculus of bile duct with acute cholecystitis and obstruction | 07/03/2017 | + + + + + | Overview: Note: Improved | + + + + + | Physical deconditioning | 06/30/2017 | + + + | S/P ERCP | 06/28/2017 | + + + | Klebsiella sepsis | 06/27/2017 | + + + | Cellulitis and abscess of trunk | 05/28/2017 | + + + + + | Overview: Note: Improved | + + + + + | Sebaceous cyst | 05/28/2017 | + + + + + | Overview: Note: Improved | + + + + + | Backache | 05/23/2017 | + + + | Right fascicular block | 05/23/2017 | + + + | COPD (chronic obstructive pulmonary disease) | 05/23/2017 | + + + | Diverticular disease of colon | 05/23/2017 | + + + | Hyperlipidemia | 05/23/2017 | + + + | Hypertension | 05/23/2017 | + + + | Generalized osteoarthritis | 05/23/2017 | + + + | Raynaud's syndrome | 05/23/2017 | + + + | Simple renal cyst | 05/23/2017 | + + + | Upper gastrointestinal bleeding | 05/23/2017 | + + + | 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, | 09/02/2015 | | including shoulder (CODE) | | + + + + + | Overview: Note: Improved | + + + + + | 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, | 04/19/2015 | | including shoulder (CODE) | | + + + + + | Overview: Note: Unchanged | + + + + + | Neoplasm of digestive system | 08/28/2013 | + + + + + | Overview: Note: Unchanged | + + + + + | Inflamed seborrheic keratosis | 05/24/2010 | + + + + + | Overview: Note: Improved | + + + + + | Disease of sebaceous glands | 05/24/2010 | + + + + + | Overview: Note: Unchanged | + + + + + | 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, including shoulder | 05/09/2010 | + + + + + | Overview: Note: Improved | + + + + + | Neoplasm of uncertain behavior of skin | 04/11/2010 | + + + + + | Overview: Note: Unchanged | + + + + + | Special screening for malignant neoplasms, colon | 01/01/2007 | + + + + + | Overview: Note: Unchanged | + + + + + | Diverticulosis of colon | 01/01/2007 | + + + + + | Overview: Note: Unchanged | + + + + + | Inguinal hernia | 01/01/2007 | + + + + + | Overview: Note: Worsening | + + Immunizations + + + + | Name | Administration Dates | Next Due | + + + + | TDAP, (ADOL/ADULT) | 02/17/2018 | | + + + + Family History + + +------+ + | Medical History | Relation | Name | Comments | + + +------+ + | Coronary artery | Brother | | | | disease | | | | + + +------+ + | Heart disease | Brother | | | + + +------+ + | Coronary artery | Brother | | | | disease | | | | + + +------+ + | Coronary artery | Brother | | | | disease | | | | + + +------+ + | Abdominal aortic | Father | | | | aneurysm | | | | + + +------+ + | Cancer | Mother | | | + + +------+ + | Coronary artery | Sister | | | | disease | | | | + + +------+ + | Colon cancer | Neg Hx | | | + + +------+ + + +------+ + + | Relation | Name | Status | Comments | + +------+ + + | Brother | | | | + +------+ + + | Brother | | | | + +------+ + + | Brother | | | | + +------+ + + | Father | | | | | | | (Age | | | | | 54) | | + +------+ + + | Mother | | | | | | | (Age | | | | | 85) | | + +------+ + + | Sister | | | | + +------+ + + Social History + + + [...] + | Respiratory Rate | 18 | 04/09/2019 1:07 PM | | | | | PST [...] | + + + + + | Medication | | | | | Management | 5 | | | + + + + + | Vaccine: | | | | | Pneumococcal 65+ (1 | 0 | | | | of 1 - PPSV23) | | | | + + + + + | Vaccine: Zoster (2 | | 06/26/19 | | | of 3) | 9 | 09 | | + + + + + | Adult Annual | | | | | Wellness Visit | 8 | | | + + + + + | Med Mgmt: Cr | | 01/02/20 | | | | 0 | 19, | | | | | 01/02/20 | | | | | 19, | | | | | 08/15/19 | | | | | 18, | | | | | Addition | | | | | al | | | | | history | | | | | exists | | + + + + + | Med Mgmt: HCT | | 01/02/20 | | | | 0 | 19, | | | | | 01/02/20 | | | | | 19, | | | | | 08/15/19 | | | | | 18, | | | | | Addition | | | | | al | | | | | history | | | | | exists | | + + + + + | Med Mgmt: HGB | | 01/02/20 | | | | 0 | 19, | | | | | 01/02/20 | | | | | 19, | | | | | 08/15/19 | | | | | 18, | | | | | Addition | | | | | al | | | | | history | | | | | exists | | + + + + + | Vaccine: Influenza | | 03/08/20 | | | (#1) | 0 | 19, | | | | | 02/21/20 | | | | | 18, | | | | | 03/19/20 | | | | | 17, | | | | | Addition | | | | | al | | | | | history | | | | | exists | | + + + + + | Vaccine: | | 02/18/20 | | | Dtap/Tdap/Td (2 - | 8 | 18 | | | Td) | | | | + + + + + Results Not on filefrom Last 3 Months Insurance + +--------+ +--------+-------+---------+--------+ | Payer | Benefi | Subscriber | Effect | Phone | Address | Type | | | t Plan | ID | leonela | | | | | | / | | Dates | | | | | | Group | | | | | | + +--------+ +--------+-------+---------+--------+ | [employer] | [employer] | [id number] | 05/21/19 | | | Medica | | | HEALTH | | 19-Pre | | | re | | | MDCR | | sent | | | | + +--------+ +--------+-------+---------+--------+ | [employer] | [employer] | [id number] | | | | Medica | | | HEALTH | | 018-Pr | | | re | | | MDCR | | esent | | | | + +--------+ +--------+-------+---------+--------+ + +--------+ +--------+ + + | Guarantor Name | Accoun | Relation to | Date | Phone | Billing Address | | | t Type | Patient | of | | | | | | | | | | + +--------+ +--------+ + + | William Burns | Person | Self | [birth year] | [address] | | | al/Fam | | 1935 | [phone] | [place], [place] | | | [place] | | | 4 (Home) | [address] | + +--------+ +--------+ + + | William Burns | Person | Self | [birth year] | [address] | | | al/Fam | | 1935 | [phone] | [place], [place] | | | [place] | | | 4 (Home) | [phone] | + +--------+ +--------+ + + Advance Directives + + + + + | Type | Date Recorded | Patient | Explanation | | | | 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
--- OUTSIDE RECORDS SUMMARY | ~2020-03-03 | XMS | Encounter Summary ---
Demographics + + + | Address | [address] | | | [place] [address] | + + + | Home Phone | | + + + | Preferred Language | Unknown | + + + | Marital Status | | + + + | Roman Catholic Affiliation | NON | + + + | Race | White | + + + | Ethnic Group | Not or | + + + Author + + + | Author | [facility] | + + + | Organization | [facility] | + + + | Address | Unknown | + + + | Phone | Unavailable | + + + Support + + +---------+ + | Name | Relationship | Address | Phone | + + +---------+ + | None Per Pt | ECON | Unknown | Unavailable | + + +---------+ + Care Team Providers + +------+ + | Care Bill Adjuster Name | Role | Phone | + +------+ + | Daryl March MD | PCP | | + +------+ + Reason for Referral Physical Therapy (Routine) +--------+--------+ + + + + | Status | Reason | Specialty | Diagnoses / | Referred By | Referred To | | | | | Procedures | Contact | Contact | +--------+--------+ + + + + | Closed | | Physical | Diagnoses | | Ana Pt [facility] | | | | Therapy | Physical | Thea, | [address] | | | | | deconditioni | Virgil Chance MD | [facility] | | | | | ng | [address] | for Health | | | | | Procedures | [address] | and Healing, | | | | | PHYSICAL | [address] | [address], | | | | | THERAPY | [facility] [place] | 1st Floor | | | | | REFERRAL | [address] | [facility] [place] | | | | | | Phone: | [phone] | | | | | | [phone] | Phone: | | | | | | Fax: | [phone] | | | | | | [phone] | Fax: | | | | | | | [phone] | +--------+--------+ + + + + Reason for Visit + + + | Reason | Comments | + + + | Respiratory distress | | + + + AUTH/CERT +--------+--------+ + + + + | [...] + + | 06/26/ | Hospital | [address] | Alberto Miranda MD | | | 2018 - | Encounter | [address] | [address] | | | | | [address] [place] [address] | Carolina Guerra [place], | | | 06/30/ | | [place], [place] | [place] [address] | | | 2017 | | [address] | [phone] | | | | | [phone] | | | | | | | Vic Petty | | | | | | MD [place] [address] | | | | | | [address] | | | | | | [place], [place] | | | | | | [address] | | | | | | [phone] | | | | | | | [...] Pressure | 153/99 | 06/30/2017 2:05 PM | | | | | PST | | + + + + + | Pulse | 65 | 06/30/2017 2:05 PM | taken manually | | | | PST | | + + + + + | Temperature | 36.6 C (97.9 F) | 06/30/2017 2:03 PM | | | | | PST | | + + + + + | Respiratory Rate | 18 | 06/29/2017 11:33 PM | | | | | PST | | + + + + + | Oxygen Saturation | 94% | 06/30/2017 2:05 PM | | | | | PST | | + + + + + | Inhaled Oxygen | - | - | | | Concentration | | | | + + + + + | Weight | 86 kg (189 lb 9.5 | 06/30/2017 6:03 AM | | | | oz) | PST | | + + + + + | Height | 175.3 cm (5' 9.02") | 06/27/2017 7:12 AM | | | | | PST | | + + + + + | Body Mass Index | 27.99 | 06/27/2017 7:12 AM | | | | | PST [...] documented as of this encounter Discharge Summaries Virgil Sidhu MD - 06/30/2017 1:55 PM PSTFormatting of this note might be differen t from the original. [facility] Discharge Summary Discharging Provider: VIRGIL SIDHU MD Discharging Attending Physician: Dr Vic Petty PCP: Daryl March MD Admission Date: 06/26/2017 Discharge Date: Hospital Stay: 4 day(s) Diagnosis: Principal Diagnosis: 1. Septic shock 2. Ascending Cholangitis Additional Diagnoses: Patients Hospital Problem List: 1) Klebsiella bacteremia 2) Aspiration pneumonitis 3) COPD 4) Hypertension Procedures: #Intubation (at OSH prior to transfer) #Central venous catheter insertion, [facility] - 06/26/17 #Arterial line, R radial - 06/26/17 Reason for Admission: #Septic Shock Hospital Course by Problem (with follow-up plan/instructions): #Septic Shock #Ascending cholangitis #Klebsiella bacteremia Presented as transfer from OSH in setting of subacute, progressive post-prandial abdominal pain. At OSH, was found to be tachypneic (did not tolerate BiPAP) and intubated prior to tra nsfer to [facility]. Workup was notable for RUQ U/S with gallbladder wall thickening & sludge with +Keita's sign. Labs remarkable for CBC 10.8; lactate 2.2; Tbili 3.1; AST 315; ALT 259; Alk Phos 221. Patient temporarily required pressor support while in MICU. Etiology of septic s hock felt most likely 2/2 acute cholangitis (fever, abd pain, cholestatic pattern of liver i njury and dilated biliary tree). Initially started on Zosyn then transitioned to Augmentin a fter blood cultures resulted +Klebsiella. Pt underwent ERCP (06/26) with removal of several CBD stones & sludge following biliary sphincterotomy with 10 Fr stent placement into CHD. - continue Augmentin 500 TID (end 07/09/17) - GI to schedule repeat ERCP with possible stent retrieval - bowel regimen - PCP follow-up in 1-2 wks #NSTEMI, Type II Trop mildly elevated at 0.33 on admission. No report of recent CP from OSH or daughter. No ischemic changes on EKGs at OSH nor here. Suspect 2/2 type II NSTEMI 2/2 sepsis. #Hypertension Anti-hypertensives initially held in setting of septic shock. However, lisinopril continued prior to d/c following resolution of sepsis physiology and elevating BPs. However, continue d to hold diltiazem prior to discharge. - continue lisinopril 20 daily - discontinue diltiazem #paroxysmal SVT On arrival pt noted to be in a regular, narrow complex tachycardia requiring temporary esmo lol gtt before converting back to NSR. However, patient became persistently bradycardic to 4 0s. Electrophysiology consulted and recommended low dose BBs were SVT to return - avoid dilt iazem. - consider low dose BB for recurrent SVT #COPD - continue home duo-neb q6 prn #GERD - continue omeprazole 40 mg qAM #Pitting Edema - lasix 20 daily Pertinent Findings: Imaging: RUQ US - 06/27 IMPRESSION: 1. Gallbladder distention and biliary dilation concerning for distal biliary obstruction du e to choledocholithiasis. Malignant obstruction is not excluded and pancreatic CT may be ind icated. 2. Probable cirrhosis. CXR - 06/26 IMPRESSION: 1. ET tube terminates 7 cm above ray. 2. NG tube barely extends beyond the GE junction; this could be advanced for more optimal positioning. 3. Mild infrahilar airways thickening can be seen with reactive airways disease or bronch itis. Right lung base atelectasis. Other Studies: Outstanding or Pending Labs/Studies: Consultants (service/attending name): #Electrophysiology - Dr Fan #GI Discharge Medications: Medication List START taking these medications acetaminophen 325 mg Tab Commonly known as: TYLENOL Take 2 tablets by mouth every six hours while awake. amoxicillin-clavulanate 500-125 mg Tab Commonly known as: AUGMENTIN Take 1 tablet by mouth three times daily for 9 days. Indications: abdominal infection polyethylene glycol 17 gram Pwpk Commonly known as: MIRALAX Mix 1 packet and take orally once daily. Start taking on: 07/01/2017 simethicone chew 80 mg Chew Commonly known as: MYLICON Chew and swallow 1 tablet three times daily as needed for bloating. CONTINUE taking these medications CLARITIN LIQUI-GEL 10 mg Cap Generic drug: loratadine furosemide 20 mg Tab Commonly known as: LASIX ipratropium-albuterol 0.5 mg-3 mg(2.5 mg base)/3 mL Nebu Commonly known as: DUO-NEB lisinopril 20 mg Tab Commonly known as: PRINIVIL naproxen sodium 220 mg Cap omeprazole 40 mg Cpdr Commonly known as: PRILOSEC pravastatin 10 mg Tab Commonly known as: PRAVACHOL STOP taking these medications dilTIAZem CD 24 hour release 240 mg Cp24 Commonly known as: CARDIZEM CD Where to Get Your Medications These medications were sent to -[id number] [address] [place] [address] [place] [address] Hours: 9AM-7PM MON - FRI / 9AM-6PM SAT / CLOSED SUN acetaminophen 325 mg Tab amoxicillin-clavulanate 500-125 mg Tab polyethylene glycol 17 gram Pwpk simethicone chew 80 mg Chew Allergies: Allergies Allergen Reactions Aromatic Dyspnea Budesonide-Formoterol Dyspnea "I can't breathe when I use it." Fluticasone-Salmeterol Dyspnea "I can't breathe when I use it." Eucalyptus Dyspnea Fluticasone Dyspnea Hydrochlorothiazide Rash Code Status: Full POLST completed: no Additional Instructions: Condition on Discharge Good Diet Regular Regular diet- There are no restrictions to your diet. You may eat or drink whatever you pr efer, though healthy food choices are recommended. Regular diet- There are no restrictions on the foods in your diet. Please restrict the isaac ture and fluid consistency as follows. Activity Weight-bearing as tolerated: It's up to you - you can put 50 to 100% of the body weight on the affected leg. The amount tolerated may vary according to the circumstances. Who To Call For Problems HOW TO REACH YOUR MEDICINE TEAM WITH QUESTIONS, CONCERNS, OR NEW SYMPTOMS: Thank you for entrusting your care to [facility] Internal Medicine. If you have any problems or concerns before you are able to follow up with your Primary Care Provider, please call and ask the oliving machine operator to page the attending physician, Vic Petty MD, wh o was caring for you at discharge. If that physician is not available, ask the oliving machine operator to page the physician nuclear weapons custodian for the Medical Teaching Service. Call us right away if any of the following occur: Recurrent abdominal pain Shaking chills or night sweats Other Discharge Orders and Instructions You will be called by the [facility] GI service within the next week to schedule a repeat appoint ment for ERCP and possible stent removal. Home Health Referral after Hospitalization Comments: I certify that this patient is under my care and that I, or Nurse Practitioner or Physician Health Center Associate working with me, had a face to face encounter with this patient on 06/30/2017 On behalf of Attending Physician: Vic Petty MD I am ordering and certify that the following services are medically necessary home health s ervices Home Health Physical Therapy Evaluate and Treat I certify that the patient is homebound based on the following clinical findings Post-hospi tono weakness, decreased strength and endurance, and tires easily with minimal exertion Follow Up: Schedule the following appointment(s) when you get home DARYL MARCH MD . Specialty: Internal Medicine Contact information [facility] [address] [place] [address] [address] [facility] [id number] Discharge Physical Exam: Last 24 hour min/max Temp: 36.6 C (97.9 F) Temp Min: 36.6 C (97.9 F) Max: 37 C (98.6 F) Pulse: 65 (taken manually) Pulse Min: 54 Max: 138 Resp: 18 Resp Min: 17 Max: 18 BP: (!) 153/99 BP Min: 134/103 Max: 179/114 SpO2: 94 % SpO2 Min: 92 % Max: 96 % Body mass index is 27.99 kg/m. General: well appearing elderly M HEENT/Neck: JVP 2 cm above clavical at 45 degrees Cardiovascular: RRR no MRG Pulmonary: breathing comfortably on RA Abdominal: minimally ttp diffusely Skin: aged with scattered sun spots Neuro: Non-focal Psych: AOx3; bright affect Lines: none VIRGIL SIDHU MD Associated attestation - Vic Petty MD - 06/30/2017 3:54 PM PSTFormatting of th is note might be different from the original. ATTENDING BRIEF DISCHARGE NOTE ADMIT DATE: 06/26/2017 8:35 AM TODAY'S DATE: 06/30/2017 (HOSPITAL DAY 4) I personally interviewed the patient, performed the hartley elements of the physical examinatio n, and discussed all aspects of care with GM team on rounds today. Assessment and Plan Patients Hospital Problem List: Active Hospital Problems 1) *Septic shock (HCC) 2) Choledocholithiasis 3) Acute cholangitis 4) Klebsiella sepsis (HCC) 5) Aspiration pneumonitis (HCC) 6) S/P ERCP 7) COPD (chronic obstructive pulmonary disease) (HCC) 8) Essential hypertension 9) Physical deconditioning Resolved Hospital Problems 10) Septic shock (HCC) 11) Non-ST elevation myocardial infarction (NSTEMI), type 2 (HCC) 12) Acute respiratory failure with hypoxia ([facility]) Please refer to the resident discharge summary for additional details. Vic Petty MD, PhD Clinical Hospitalist and Medicine Teaching Services [facility] Pager [phone] I have spent 35 minutes with the patient of which more than 50% was spent counseling. documented in this encounter Medications at Time [...] + + +---------+ + + | | Take 1 tablet by | 27 | 0 | 06/30/19 | | | amoxicillin-clavulan | mouth three times | tablet | | 18 | 8 | | ate 500-125 mg oral | daily for 9 days. | | | | | | tabletIndications: | Indications: | | | | | | intra-abdominal | abdominal infection | | | | | | infection | | | | | | + + + +---------+ + + documented as of this encounter Progress Notes Collin Mohr - 06/29/2017 1:40 PM PSTFormatting of this note might be different from th e original. PHYSICIAN HEEL SEAT TRIMMER STUDENT PROGRESS NOTE FOR EDUCATIONAL PURPOSES ONLY INPATIENT PROGRESS NOTE PATIENT INFORMATION Patient Name: Lilian Hurst Date of : 1935 Date of Admission: 06/26/2017 Room/Bed: 11/19 Attending Provider: Vic Petty MD Encounter Information Date of Service: 06/29/2017 Hospital Day #: 3 24 Hour Events There were no acute events overnight. Subjective Patient reports that his epigastric pain is better and has remained under control, but sti ll notices constant 4/10. Sometimes it gets worse after eating. Tried to have a bowel moveme nt this am but was unable to, with only gas. Worried that he may be getting "backed-up". Den ies nausea, vomiting, fever or chills overnight. No SOB, dyspnea or chest pain. Objective BP 152/72 | Pulse 66 | Temp 36.5 C (97.7 F) | RR 16 | Ht 1.753 m (5' 9.02") | Wt 85.3 k g (188 lb) | SpO2 97% | BMI 27.75 kg/(m^2) PHYSICAL EXAMINATION Last 24 hour min/max Temp: 36.5 C (97.7 F) Temp Min: 36.4 C (97.5 F) Max: 37.3 C (99.1 F) Pulse: 66 Pulse Min: 66 Max: 78 Resp: 16 Resp Min: 16 Max: 18 BP: 152/72 BP Min: 130/72 Max: 158/83 SpO2: 97 % SpO2 Min: 89 % Max: 97 % Body mass index is 27.75 kg/m. GENERAL: WDWN adult MALE in no acute distress, alert and oriented X4 SKIN: warm/dry, no rashes/lesions/ecchymoses HEENT: normocephalic/atruamatic, EOMI, PERRLA, MMM, Right eyelid entropion with blepharitis . LYMPH: no lymphadenopathy HEART: RRR, S1/S2 heard without murmurs/rubs/gallops, JVP not appreciated. LUNGS: mild accessory muscle use, CTAB, with distant breath sounds, no wheezes/rhonchi/rale s ABDOMEN: Hyperactive BS; soft, TTP at epigastric as well as R upper and lower quadrants, no n-distended, no HSM. EXTREMITIES: No edema, radial and dorsal pedis pulses 2+ bilat NEURO:UE's with 5/5 strength, intact sensation to light touch. LEs with 5/5 strength, intac t sensation to light touch CURRENT IP MEDICATIONS amoxicillin-clavulanate 500 mg TID enoxaparin 40 mg QPM furosemide 20 mg DAILY omeprazole 40 mg BEFORE BREAKFAST polyethylene glycol 17 g DAILY pravastatin 10 mg DAILY probiotic yogurt TID W/MEALS senna-docusate 2 tablet BID acetaminophen 650 mg TID PRN bisacodyl 10 mg DAILY PRN HYDROmorphone 0.1-0.3 mg Q2H PRN ipratropium-albuterol 3 mL Q6H PRN fyuhyakp-nevsoto-pneyaock-zinc QID PRN oxyCODONE (immediate release) 2.5-5 mg Q4H PRN polyethylene glycol 34 g TID PRN simethicone chew 80 mg TID PRN DATA Intake/Output Summary (Last 24 hours) at 06/29/17 1340 Last data filed at 06/29/17 1339 Gross per 24 hour Intake 1020 ml Output 1650 ml Net -630 ml Lab Results Component Value Date WBC 8.69 06/29/2017 HB 11.7 06/29/2017 HCT 36.0 06/29/2017 PLT 134 06/29/2017 MCV 92.5 06/29/2017 RDW 49.5 06/29/2017 Lab Results Component Value Date NA 140 06/29/2017 K 4.2 06/29/2017 CL 104 06/29/2017 BICARB 31 06/29/2017 BUN 18 06/29/2017 CR 0.98 06/29/2017 GLU 91 06/29/2017 CA 7.8 06/29/2017 AST 29 06/29/2017 ALT 96 06/29/2017 AP 104 06/29/2017 TBILI 1.2 06/29/2017 TP 5.1 06/29/2017 ALB 2.5 06/29/2017 ANIONGAP 5 06/29/2017 ANIONALBCOR 8 06/29/2017 Assessment/Plan In summary, Lilian Hurst is a 82 y.o. gentleman with a PMHx significant for COPD, esse ntial hypertension, upper GI bleed, admitted to MICU for septic shock in the setting of acut e cholangitis and choledocholithiasis presenting 3 days s/p ECRP, sphincterotomy and CHD daniel nt placement. 1. Acute Cholangitis 2. Epigastric pain- Post-prandial epigastric and RUQ/RLQ pain. Ddx: Cholelithiasis (known stones remain in gallbladder, colicky post prandial onset, likely due to peristaltic ductal irritation) -Abdominal US showed no acute obstructio n or wall inflammation. Ddx: Post ERCP ductal or intestinal perforation (Less likely but trending CBC f or acute bleeding, not suggestive thus far) Ddx: Post ERCP pancreatitis (most common complication follwing procedure). Less likely considering today's Lipase =62. -Oxycodone 2.5-5mg Q4hrs PRN for abdominal pain. -Tylenol switched to PRN instead of scheduled -senna-docusate 8.6-50 mg 2 tablets BID for constiation -Simethicone chew tablets 80mg up to TID PRN for gas. 2. Bacteremia (gram neg Klebsiellia) -Cultures sensitivity.Susceptibility Klebsiella oxytoca SUSCEPTIBILITY-FARIHA Amoxicillin/Clavulanate S Ampicillin R Cefazolin R Ceftriaxone S Ciprofloxacin S Gentamicin S Piperacillin/Tazobactam S Tobramycin S Trimethoprim/Sulfa S -Discontinue continue Zosyn to transition to oral antibiotics. -Start Amoxicillin/Clavulanate 500-125 mg oral TID 3. Hypoxic respiratory failure 4. COPD exacerbation Unlikely to be CAP, no URI symptoms, most likely aspiration pneumonitis vs treated aspirati on pneumonitis. -Resolved and stable, 94% on 1L NC -chest X-ray unchanged from previous -Titrate to RA bsaeline as tolerated. -encourage use of incentive spirometry -Unknown trigger for exacerbation prior to intubation. Counseling and Pt Education The above plan was discussed with Lilian Hurst and his daughter at bedside 11/19 and a ll their questions were answered. Goals of care and code status were discussed with him and he requests FULL code status. Disposition and Discharge Planning Diet: advance as tolerated Discharge is pending: Transition to Room air as tolerated, Step-down to oral antibiotics, P T/OT evaluation. Analgesia: Oxycodone 2.5-5mg Q4hrs PRN, Tylenol 650 up to TID PRN Fluids/Electrolytes/Nutrition: Advance diet as tolerated. Thromboembolic ppx: Lovenox injection 40mg DAILY Glucose control: n/a GI ppx: n/a Emesis ppx: n/a Disposition: discharge is pending transition to room air as tolerated, Step-down to oral an tibiotics, PT/OT evaluation. IV/Airways/Catheters: PIV Code status: FULL Collin Mohr PA-S [facility] Physician Health [facility] Associate Program 06/29/17 Kang Zhang MD - 06/29/2017 1:28 PM PSTGeneral Medicine Attending Progress Note Author: Vic Petty MD, PhD Hospital Day # 3 PCP: Daryl March MD I personally evaluated the patient, performed the hartley elements of the physical examination, and personally formulated the assessment and plan with the house staff. I have reviewed the written documentation and I agree with the findings, assessment, advice, orders and plan as they are documented with the above clarifications. Please see resident note for details. Assessment & Plan Patients Hospital Problem List: Active Hospital Problems 1) *Septic shock (HCC) 2) Choledocholithiasis 3) Acute cholangitis 4) Klebsiella sepsis ([facility]) 5) Aspiration pneumonitis (HCC) 6) S/P ERCP 7) COPD (chronic obstructive pulmonary disease) (HCC) 8) Essential hypertension 82 year-old man with HTN, COPD not on supplemental oxygen, who presented to OSH with epigas tric pain and abnormal LFTs, admitted for septic shock due to acute cholangitis and acute hy poxic respiratory failure due to aspiration requiring intubation, transferred to [facility] MICU. Here found to have klebsiella bacteremia and now status post ERCP on 06/27. Pain much improved today with pain meds. Ate breakfast and no pain so far, which is reassu ring. Sensitivities for klebsiella have returned, will transition to augmentin tid. Per re port, patient was quite unsteady on his feet while in shower yesterday, will ask PT/OT to ev aluate. Discharge Plan: Possible discharge tomorrow pending PT/OT eval. Patient/Family Goals & Expectations: Above problems discussed with the patient who understands and is agreeable with our plans. Vic Petty MD, PhD Clinical Hospitalist and Medicine Teaching Services [facility] Pager [phone] I have spent 26 minutes with the patient of which more than 50% was spent counseling the pa tient and in coordination of care. urtReza rivers MD - 06/29/2017 8:23 AM PSTFormatting of this note might be different from the orig inal. General Internal Medicine 5 Progress Note Hospital Day: 3 24 Hour Events: No acute overnight events. Subjective: Reports that he feels better overall. Pain is currently well-controlled. He requested that this author call his surgeon's office, however, their office was closed. This author left a message with them to reach out to our team next week. Physical Examination: Last 24 hour min/max Temp: 36.5 C (97.7 F) Temp Min: 36.4 C (97.5 F) Max: 37.3 C (99.1 F) Pulse: 56 Pulse Min: 56 Max: 78 Resp: 16 Resp Min: 16 Max: 18 BP: 152/76 BP Min: 130/72 Max: 158/83 SpO2: 94 % SpO2 Min: 89 % Max: 97 % Body mass index is 27.75 kg/m. Intake/Output Summary (Last 24 hours) at 06/29/17 0700 Last data filed at 06/29/17 0600 Gross per 24 hour Intake 240 ml Output 2100 ml Net -1860 ml Weight: 85.3 kg (188 lb) (06/29/17 0616) Weight: 86.5 kg (190 lb 11.2 oz) (06/26/17 0905) General Appearance: elderly man in no apparent distress HEENT: anicteric, mmm Respiratory: clear to auscultation bilaterally, no wheezes, rhonchi, or rales Cardiovascular: regular rate and rhythm Abdomen: soft, minimal tenderness to palpation in epigastrium, otherwise nondistended, octaviano l sounds present Skin: no rashes Neurologic: alert and oriented x4 Extremities: warm and well-perfused x4 Laboratory Interpretation: CBC with diff last 72 hours (or 3 results) - Refreshable Recent Labs 06/27/17 0043 06/28/17 0330 06/29/17 0324 WBC 14.30* 10.08 8.69 HB 12.0* 12.0* 11.7* HCT 35.9* 36.5* 36.0* PLT 139* 122* 134* Chemistries: Last 72 Hours (or 3 results) - Refreshable Recent Labs 06/27/17 0043 06/27/17 1339 06/28/17 0317 06/28/17 0632 06/29/17 0324 NA 142 -- 141 -- 142 -- 140 K 4.6 -- 4.5 -- 4.2 -- 4.2 CL 109* -- 109* -- 108 -- 104 BICARB 24 -- 25 -- 29 -- 31 BUN 23* -- 27* -- 26* -- 18 CR 0.94 -- 0.97 -- 1.09 -- 0.98 GLU 153* < > 144* | 170* < > 105* 152* 91 CA 7.6* -- 8.0* -- 7.7* -- 7.8* MG 2.3 -- -- -- 2.2 -- 1.9 < > = values in this interval not displayed. Micro: BLOOD CULTURE WORKUP [[id number]] (Abnormal) [facility] Collected: 06/26/17 0939 Lab Status: Final result Specimen: Blood from Arterial line Updated: 06/29/17 1152 CULTURE RESULT Klebsiella oxytoca (A) [facility] Narrative: Culture Report: Klebsiella oxytoca Growth in Aerobic bottle Growth in Anaerobic bottle Susceptibility Klebsiella oxytoca SUSCEPTIBILITY-FARIHA Amoxicillin/Clavulanate S Ampicillin R Cefazolin R Ceftriaxone S Ciprofloxacin S Gentamicin S Piperacillin/Tazobactam S Tobramycin S Trimethoprim/Sulfa S Imaging Interpretation: None new. Patients Hospital Problem List: Active Hospital Problems 1) *Septic shock (HCC) 2) Choledocholithiasis 3) Acute cholangitis 4) Klebsiella sepsis (HCC) 5) Aspiration pneumonitis (HCC) 6) S/P ERCP 7) COPD (chronic obstructive pulmonary disease) (HCC) 8) Essential hypertension Resolved Hospital Problems 9) Septic shock (HCC) 10) Non-ST elevation myocardial infarction (NSTEMI), type 2 (HCC) 11) Acute respiratory failure with hypoxia ([facility]) Assessment: Lilian Hurst is a 82 y.o. man with COPD with poor tolerance of inhalers, HTN, prior UG IP, admitted for ascending cholangitis due to klebsiella bacteremia now s/p ERCP with sphinc terotomy and CHD stent, transitioned from IV zosyn to PO augmentin. Plan: # Ascending Cholangitis Symptoms resolving. No evidence of recurrent infection. Blood cultures negative x48 hours. Klebsiella sensitive to augmentin so made the switch today. --Continue augmentin 500 mg TID x10 days --Follow-up with surgery regarding potential cholecystecomy as an outpatient --Continue oxycodone for pain control and monitor for worsening; if increased, would get CT abdomen with IV contrast to look for post-ERCP complications # COPD # Hypoxia Likely due to recent severe infection and fluids. Recovering well. Only required 1L supplem ental O2 today but likely can continue to wean. --Titrate O2 for sats 88-94% --continue duonebs q6h prn # Type II NSTEMI Trop peak of 0.33 on admit. Neg cp/pressure/dyspnea. Neg hx of HF or ACS. Non ischemic EKG. Repeat trope at 0.25. This is likely 2/2 to demand ischemia aka type ii NSTEMI --No further troponin or EKG checks --If develops chest pain, then new EKG nad tropes # Bilateral LE edema Likely CVI changes in elderly man. Denies any hx of documented HF vs any other major cardia ccomorbidities. --Consider restrating 20mg home lasix Feeding: regular diet Analgesia: acetaminophen, oxycodone Sedation: ni Thromboembolic ppx: enoxaparin Head of bed: ad more Ulcer ppx: PPI Glucose control: ni Mobility: PT/OT Disposition: likely home tomorrow Code status: FULL Surrogate Decision Maker Primary Surrogate Decision Maker Sharon Rodriguez Daughter [phone] Dimas Xavier MD Internal Medicine, PGY-3 #[id number] Louis Hernandez MD - 06/28/2017 2:26 PM PSTFormatting of this note might be different from the orig inal. 24 Hour Events: --Had near resolved epigastric pain yesterday --Since 8PM, has had increased abd pain --Pending new ABD US S: --Pt reports that he had been feeling near resolved epigastric pain but worsened significan tl overnight to 9, lowest 6-7. Had this pain before his 8PM meals but worsened with me al (red meat, fatty). Associated nausea. No repeat vomiting. Neg hematemesis, hematochezia, melena. -Reports improving cough, dyspnea, and sputum production Physical Examination: Last 24 hour min/max Temp: 37 C (98.6 F) Temp Min: 36.2 C (97.2 F) Max: 37 C (98.6 F) Pulse: 70 Pulse Min: 65 Max: 85 Resp: 18 Resp Min: 18 Max: 30 BP: 159/80 BP Min: 117/70 Max: 175/97 SpO2: 92 % SpO2 Min: 89 % Max: 99 % Body mass index is 28.15 kg/m. Gen: looks stated age, no acute distress Head: NCAT Neck: JVP est 6-7cm CV: RRR, nl S1/S2, no m/r/g Pulm: resp unlabored, CTAB Neg wheezes, rales, rhonchi GI: soft, non distended Moderate epigastric tenderness No rebound, guarding, rigidity Ext: warm, well perfused, 2+ pulses No pretibial edema Neuro: no gross focal deficits Psych: euthymic affect Laboratory Interpretation: CBC with diff last 72 hours (or 3 results) - Refreshable Recent Labs 06/26/17 0939 06/26/17 1539 06/27/17 0043 06/28/17 0330 WBC 18.47* 14.41* 14.30* 10.08 HB 12.3* 12.4* 12.0* 12.0* HCT 37.7* 37.8* 35.9* 36.5* PLT 143* 127* 139* 122* NEUTROPERC 96.5* -- -- -- LYMPHPERC 1.8* -- -- -- MONOPERC 1.7* -- -- -- BASOPERC 0.0 -- -- -- EOSPERC 0.0* -- -- -- Chemistries: Last 72 Hours (or 3 results) - Refreshable Recent Labs 06/26/17 0930 06/27/17 0043 06/27/17 1339 06/27/17 2351 06/28/17 0317 06/28/17 0632 NA 141 < > 142 -- 141 -- -- 142 -- K 3.4 < > 4.6 -- 4.5 -- -- 4.2 -- CL 110* < > 109* -- 109* -- -- 108 -- BICARB 22 < > 24 -- 25 -- -- 29 -- BUN 19 < > 23* -- 27* -- -- 26* -- CR 0.90 < > 0.94 -- 0.97 -- -- 1.09 -- GLU 187* < > 153* < > 144* | 170* < > 141* 105* 152* CA 7.0* < > 7.6* -- 8.0* -- -- 7.7* -- MG 1.8 -- 2.3 -- -- -- -- 2.2 -- < > = values in this interval not displayed. Imaging Interpretation: Pending US Summary Patient is an 82 year old male with COPD, essential hypertension, upper gastrointestinal b leed who was admitted to the MICU for septic shock 2/2 to acute cholangitis c/b by klebsiell a bactermia now post procedure day two of sphincteromy and CHD stent, abx day 2 with zosyn. Transferred to floor, now afebrile, non tachycardic, hemodynamically stable. Problem based A/P //Acute cholangitis //Gram negative bactermia Has not had any more fevers but abd pain has returned. Will monitor temp, WBCs, and hemodynamics. Improving subjectively without pain n/v and obj ectively Based on previous RUQ US, probably still has gallstones + biliary inflammation. Recent pain likely 2/2 to acute on chronic biliary colic vs acute cholecystitis (leonel if pain becomes un relenting). In the post ERCP setting, complications include post ERCP pancreatitis, hepatobi liary abscess. Perforation unlikely given benign abd exam except for pain. --Follow up on RUQ US --Continue zosyn until last cx clear for at least 48 hrs --Follow up on sensitivities of klebsiella cultures --F/u for lap je eval and management as outpatient (pt prefers facility near [place]) --> if develops post ERCP complications or acute cholecystitis, may need to consult GI or EG S depending on US --If febrile, order new bcx --If hypotensive/concern for sepsis, 500-1000cc boluses PRN //Hypoxic respiratory failure //COPD exacerbation Stable on 2L. Subjectively improving in dyspnea and cough. No clear e/o of COPD exacerbation prior to day of intubation. Appears to have had severe vo miting, poss c/b by aspiration pneumonitis/PNA. Pt is unsure given poor recollection around time of intubation. Unlikely to be CAP PNA, no URI symptoms, most likely aspiration pneumoni tis vs well treated aspiration pneumonitis. --Scheduled duoneb --On 2L --> downtitrate to RA bsaeline as tolerated --88-92 percent 02 sats //Type II NSTEMI Trop peak of 0.33 on admit. Neg cp/pressure/dyspnea. Neg hx of HF or ACS. Non ischemic EKG. Repeat trope at 0.25. This is likely 2/2 to demand ischemia aka type ii NSTEMI --No further troponin or EKG checks --If develops chest pain, then new EKG nad tropes //AVNRT, resolved //First degree AV block //Symptomatic junctional bradycardia, resolved Per EMS, had SVT concerning for AF in the 150s. No e/o of AF. MICU team belives pt had SVT that was responsive to esmolol on floor. He has also had inocente in the 40s to 50 and correspo nding x1 MAP drop. EP cards consulted who does not recommend any further interentions at thi s time. --Continuous tele --Treat underlying infection //Bilateral LE edema Likely CVI changes in elderly man. Denies any hx of documented HF vs any other major cardia ccomorbidities. --Consider restrating 20mg home lasix //HTN --Home lisinopril //hx of UGB HGB stable --Continue home PPI //Oliguria Has had diminished PO output on arriaga. Cr wnl. Unclear etiology. Oliguria without accompanying cr = "at risk for kidney injury" rather than aki injury --BMP in AM Consultants:GI Feeding: ADAT Analgesia: Acetaminophen Thromboprophylaxis: LMWH SC Head of Bed: Ad more Ulcer Prophylaxis:home PPI Glycemic control:SSI MobilityGoal:Bed rest Lines/Tubes/Drains/Airways: PIV DRACollin Mohr - 06/28/2017 7:47 AM PST PHYSICIAN HEEL SEAT TRIMMER STUDENT PROGRESS NOTE FOR EDUCATIONAL PURPOSES ONLY INPATIENT PROGRESS NOTE PATIENT INFORMATION Patient Name: Lilian Hurst Date of : 1935 Date of Admission: 06/26/2017 Room/Bed: 11/19 Attending Provider: Vic Petty MD Encounter Information Date of Service: 06/28/2017 Hospital Day #: 2 24 Hour Events Pt reports that he has been having abdominal pain trough the night. No relief from tylenol 650mg at 0140. Subjective Patient reports that his abdominal pain returned last night around 1900 after eating a meal . Pt ate mashed potatoes, gravy, and pork with pain beginning immediately after. Continued t o worsen through the night and this morning. Pain located to epigastric region as well as th e RIGHT upper and lower quadrants. Denies nausea, vomiting, with some chills overnight. No f anamaria. Had a normal BM this morning with no pain relief. Objective BP 159/80 | Pulse 70 | Temp 37 C (98.6 F) | RR 18 | Ht 1.753 m (5' 9.02") | Wt 86.5 kg (190 lb 11.2 oz) | SpO2 92% | BMI 28.15 kg/(m^2) PHYSICAL EXAMINATION Last 24 hour min/max Temp: 37 C (98.6 F) Temp Min: 36.2 C (97.2 F) Max: 37 C (98.6 F) Pulse: 70 Pulse Min: 65 Max: 85 Resp: 18 Resp Min: 18 Max: 30 BP: 159/80 BP Min: 117/70 Max: 175/97 SpO2: 92 % SpO2 Min: 89 % Max: 99 % Body mass index is 28.15 kg/m. GENERAL: WDWN adult MALE in no acute distress, alert and oriented X4 SKIN: warm/dry, no rashes/lesions/ecchymoses HEENT: normocephalic/atruamatic, EOMI, PERRLA, MMM, Right eyelid entropion with blepharitis . LYMPH: no lymphadenopathy HEART: RRR, S1/S2 heard without murmurs/rubs/gallops, JVP not appreciated. LUNGS: labored resp with accessory muscle use, bilateral wheezes, with distant breath sound s, no rhonchi/rales ABDOMEN: BS normoactive; soft, TTP at R upper and lower quadrants, non-distended, no HSM. EXTREMITIES: No edema, radial and dorsal pedis pulses 2+ bilat NEURO:UE's with 5/5 strength, intact sensation to light touch. LEs with 5/5 strength, intac t sensation to light touch CURRENT IP MEDICATIONS acetaminophen 650 mg TID enoxaparin 40 mg QPM furosemide 20 mg DAILY omeprazole 40 mg BEFORE BREAKFAST piperacillin-tazobactam 3.375 g Q8H pravastatin 10 mg DAILY probiotic yogurt TID W/MEALS HYDROmorphone 0.1-0.3 mg Q2H PRN ipratropium-albuterol 3 mL Q6H PRN qndykgtu-ihzbopk-crvwrqcn-zinc QID PRN oxyCODONE (immediate release) 2.5-5 mg Q4H PRN simethicone chew 80 mg TID PRN DATA Intake/Output Summary (Last 24 hours) at 06/28/17 0747 Last data filed at 06/28/17 0627 Gross per 24 hour Intake 548 ml Output 510 ml Net 38 ml Lab Results Component Value Date WBC 10.08 06/28/2017 HB 12.0 06/28/2017 HCT 36.5 06/28/2017 PLT 122 06/28/2017 MCV 91.5 06/28/2017 RDW 50.0 06/28/2017 Lab Results Component Value Date NA 142 06/28/2017 K 4.2 06/28/2017 CL 108 06/28/2017 BICARB 29 06/28/2017 BUN 26 06/28/2017 CR 1.09 06/28/2017 GLU 152 06/28/2017 CA 7.7 06/28/2017 AST 65 06/28/2017 ALT 154 06/28/2017 AP 132 06/28/2017 TBILI 1.1 06/28/2017 TP 5.5 06/28/2017 ALB 2.8 06/28/2017 ANIONGAP 5 06/28/2017 ANIONALBCOR 8 06/28/2017 Assessment/Plan In summary, Lilian Hurst is a 82 y.o. gentleman with a PMHx significant for COPD, esse ntial hypertension, upper GI bleed, admitted to MICU for septic shock in the setting of acut e cholangitis and choledocholithiasis presenting 3 days s/p ECRP, sphincterotomy and CHD daniel nt placement. 1. Acute Cholangitis 2. Epigastric pain- Post-prandial epigastric and RUQ/RLQ pain. Ddx: Cholelithiasis (known stones remain in gallbladder, colicky post prandial onset, like ly due to peristaltic ductal irritation) Ddx: Post ERCP ductal or intestinal perforation (Less likely but trending CBC for acute bl eeding, not suggestive thus far) Ddx: Post ERCP pancreatitis (most common complication follwing procedure). Less likely con sidering Lipase this am is 79. -Oxycodone 2.5-5mg Q4-6hrs PRN for abdominal pain. -US ABDOMEN LIMITED 2. Bacteremia (gram neg Klebsiellia) -F/u on klebsiella cultures for sensitivity. Spoke with Trading Manager at [facility] @1330, N o sensitivity results yet from cultures drawn on 06/26/17. Gave fax info and they agreed to se nd results as soon as available. -Continue Zosyn -Narrow antibiotics with appropriate guidance from sensitivity. 3. Hypoxic respiratory failure 4. COPD exacerbation Unlikely to be CAP, no URI symptoms, most likely aspiration pneumonitis vs treated aspirati on pneumonitis. -Resolved and stable -chest X-ray unchanged from previous -Unknown trigger for exacerbation prior to intubation. -On 2L --> downtitrate to RA bsaeline as tolerated -88-92 percent 02 sats Counseling and Pt Education The above plan was discussed with Lilian Hurst and his daughter at bedside 11/19 and a ll their questions were answered. Goals of care and code status were discussed with him and he requests FULL code status. Disposition and Discharge Planning Diet: REGULAR Discharge is pending 48hrs of clear blood cultures Analgesia: Oxycodone 2.5-5mg Q4hrs PRN for abdominal pain Fluids/Electrolytes/Nutrition: regular diet Thromboembolic ppx: SCD's Glucose control: n/a GI ppx: n/a Emesis ppx: n/a IV/Airways/Catheters: PIV Code status: FULL DOREEN Oconnell [facility] 06/28/17 Alisha Rai M D - 06/27/2017 8:26 AM PST .MICU Attending Note Admission Date: 06/26/2017 Length of stay: 1 days I examined the patient. I agree with the housestaff assessment and plan with the following additions/substractions/clarifications. 24 hour events Had ERCP. Had transient hypotension related to junctional rhythm, but improved with norepin ephrine. ERCP released multiple CBD stones after sphincterotomy; no pus noted. Overnight, further episodes of bradycardia, but less so this morning. Cards consulted yeste rday. SBT this morning and following commands. Denies pain. Assessment and Plan (medical decision making): Choledocholithiasis/Cholecystitis, treating for -s/p ERCP on 06/26 with release of multiple CBD stones Gram negative bacteria present on admission Acute respiratory failure, resolved Sepsis with shock -shock resolved Junctional rhythm with hypotension 06/26; resolved -felt to be medication related (CCB and beta-howard) Also with AVN re-entrant tachycardia, resolved NSTEMI, type II -peak troponin 0.33 See resident note for details Gram negative bacteremia. Covering with Zosyn. Follow up cultures and sensitivities. Suspec alexia klebsiella. Follow up outside hospital cultures. Passing SBT and will proceed to extubate this morning. Assess swallowing at bedside. If pas ses, can advance diet as tolerated and DC DHT. May need to add anti-hypertensives, but would avoid AV james blockers. DC a-line and central line. Current Facility-Administered Medications Medication Dose Route Frequency acetaminophen (TYLENOL) tablet 650 mg 650 mg feeding tube TID chlorhexidine (PERIDEX) mouthwash 15 mL 15 mL oral Q6H dextrose 50 % in water IV 25 mL 25 mL intravenous PRN enoxaparin (LOVENOX) injection 40 mg 40 mg subcutaneous QPM glucagon (GLUCAGEN) injection 1 mg 1 mg intramuscular PRN glucose chewable tablet 16 g 16 g oral PRN HYDROmorphone (DILAUDID) injection 0.1-0.5 mg 0.1-0.5 mg intravenous Q2H PRN insulin lispro (HUMALOG) injection subcutaneous QID ipratropium-albuterol (DUO-NEB) nebulizer solution 3 mL 3 mL inhalation Q6H menthol-zinc oxide (CALAZIME) topical paste 0.2%-16.5% topical QID PRN norepinephrine (LEVOPHED) 8mg/250 mL (0.032 mg/mL) IV infusion (ADC) 0.02-0.2 mcg/kg/m in intravenous CONTINUOUS omeprazole (PRILOSEC) oral suspension (compound) 40 mg 40 mg feeding tube BEFORE BREAK FAST piperacillin-tazobactam (ZOSYN) 3.375 g in NaCl 0.9 % 50 mL IV (ADD-vantage) 3.375 g i ntravenous Q8H propofol (DIPRIVAN) bolus from continuous infusion 10-20 mg 10-20 mg intravenous Q15MI N PRN propofol (DIPRIVAN) injection 0.5-50 mcg/kg/min intravenous CONTINUOUS 24 Hour Vital Min/Max: Systolic (24hrs), Av , Min:71 , Max:101 Diastolic (24hrs), Av, Min:55, Max:67 Pulse Av.1 Min: 40 Max: 152 Temp Av.2 C (97.1 F) Min: 35.8 C (96.4 F) Max: 36.8 C (98.2 F) Resp Av.4 Min: 15 Max: 26 SpO2 Av.7 % Min: 88 % Max: 100 % Intake/Output Summary (Last 24 hours) at 06/27/17 0826 Last data filed at 06/27/17 0800 Gross per 24 hour Intake 2927.12 ml Output 1213 ml Net 1714.12 ml Intake/Output Summary (since admission) at 06/26/17 0835 Last data filed at 06/27/17 0800 Gross for the last 1 days Intake 2927.12 ml Output 1213 ml Net since Admission 1714.12 ml I personally reviewed the laboratory and radiology data from the last 24 hours. Up to Last 5 ABGs in 72 hours: Recent Labs 06/26/17 0929 06/26/17 1401 06/26/17 2213 PH 7.31* 7.33* 7.38 PCO2 45* 46* 40 PO2 86 87 78 HCO3 22 24 23 [id number] 24 25 24 [id number] 96.4 97.0 96.8 FIO2 0.80 0.25 0.21 Chemistries: Last 72 Hours (or 3 results): Recent Labs 06/26/17 0930 06/26/17 1539 06/26/17 2157 06/27/17 0043 06/27/17 0814 NA 141 140 -- -- 142 -- K 3.4 4.7 -- -- 4.6 -- CL 110* 110* -- -- 109* -- BICARB 22 24 -- -- 24 -- BUN 19 19 -- -- 23* -- CR 0.90 0.85 -- -- 0.94 -- GLU 187* 195* < > 194* 153* 147* CA 7.0* 7.4* -- -- 7.6* -- MG 1.8 -- -- -- 2.3 -- < > = values in this interval not displayed. Liver Tests: Last 72 hours (or 3 results) Recent Labs 06/26/17 0930 06/26/17 1539 06/27/17 0043 AST 171* 144* 119* ALT 204* 197* 180* TBILI 4.1* 3.8* 3.7* AP 174* 173* 157* ALB 2.9* 2.8* 2.8* TP 5.4* 5.4* 5.4* CBC with diff last 72 hours (or 3 results) Recent Labs 06/26/17 0939 06/26/17 1539 06/27/17 0043 WBC 18.47* 14.41* 14.30* HB 12.3* 12.4* 12.0* HCT 37.7* 37.8* 35.9* PLT 143* 127* 139* NEUTROPERC 96.5* -- -- LYMPHPERC 1.8* -- -- MONOPERC 1.7* -- -- BASOPERC 0.0 -- -- EOSPERC 0.0* -- -- Lab Results Lab Test Name Results Date/Time APTT 32.5 06/26/17 FIBRINOGEN 362 06/26/17 I spent 30 minutes of critical care time (managing issues that acutely impair one or more v ital organ systems such that there is a high probability of imminent or life threatening det erioration in the patient's condition). ALISHA LAGUNAS MD [facility] [address] [place] [address] Camilo Amaya MD - 11/2017 6:00 AM PST [facility] MEDICAL ICU - PROGRESS NOTE Hospital Day: 1 | ICU Day: 1 ID/CC: Aki Hurst is a 82 y.o. man admitted to the MICU for septic shock. Consultants: GI, Cards 24 Hour Events: - ERCP performed --> Several CBD stones and sludge removed after biliary sphincterotomy. No pus found. 10 Fr stent placed into CHD. - ~8 episodes of bradycardia; decreasing frequency of bradycardia, only 1 episode with asso ciated hypotension - AVNRT. This could have been triggered by a catecholamine excess related to sepsis and al buterol treatment he received prior to transfer. The bradycardia appears to be due to sinus node failure, which may have been precipitated by esmolol in combination to long acting dilt iazem which he takes at home Rec: cautious use of beta blockers and treat underlying cause - 1.5L LR for oliguira - Blood culture from 06/26 positive for gram negative bacilli (Klebsiella) in both aerobic an d anaerobic bottles - passed SBT, now extubated Subjective: Alert and interactive, follows commands; no complaint of pain Vital Signs: Cuff BP 101/67 (06/26/17 1703) | BP Min: 71/55 Max: 101/67 Cuff MAP 68 mmHg (06/26/17 0850) | BP Mean Min: 62 mmHg Max: 68 mmHg Art Line BP 110/53 (06/27/17 0500) | ART Line BP Min: 75/42 Max: 175/93 Art Line MAP 75 mmHg (06/27/17 0500) | ART Line BP Mean Min: 57 mmHg Max: 125 mmHg HR 63 (06/27/17 0500) | Pulse Min: 40 Max: 152 | Cardiac Rhythm: Normal Sinus Rhythm (12/05 0400) Temp 36.5 C (97.7 F) (06/27/17499) | Temp Min: 35.8 C (96.4 F) Max: 36.5 C (9 7.7 F) RR 22 (06/27/17499) | Resp Min: 15 Max: 26 SpO2 96 % (06/27/17499) | SpO2 Min: 88 % Max: 100 % O2 Device Endotracheal tube (06/27/17499) | Volume AC (06/27/17301) Ventilator Settings Vt: 6.5 mL/Kg (459.6 mL) RR: 22 bpm [place] BW: 70.7 kg FiO2 21 fraction of O2 PEEP Set 5 cm H2O Observed Ventilation Vex: Mandatory 580 ml | Spontaneous 490 ml RR: 22 bpm Minute Ventilation: 10.8 L/MIN SpO2 96 % Ventilator Diagnostics (Past 24 hrs) Pplat 12 cm H2O (06/27/17301) | Driving Pressure 6 cm H2O (06/27/17301) Total PEEP 6 cm H2O (06/27/17301) | AutoPEEP SBT Assessed No (06/27/17301) | SBT Outcome Cam/RASS Flowsheet Row Most Recent Value CAM (Confusion Assessment Method) Negative (no delirium) RASS Scale -1 CPOT 0 (06/27/17499) Intake/Output Summary (Last 24 hours) at 06/27/17 0700 Last data filed at 06/27/17 0500 Gross per 24 hour Intake 2792.54 ml Output 1148 ml Net 1644.54 ml Intake/Output Summary (since admission) at 06/26/17 0835 Last data filed at 06/27/17 0500 Gross for the last 1 days Intake 2792.54 ml Output 1148 ml Net since Admission 1644.54 ml BMI: Weights 86.5 kg (190 lb 11.2 oz) (06/26/17 0905) Admit Wt: 86.5 kg (190 lb 11.2 oz) Physical Exam: Gen: intubated, NAD, awakens to voice and follows commands HEENT: PERRL, EOMI CV: RRR no murmur Pulm: ventilated breath sounds bilaterally, no crackles or wheezing Abdomen: soft, nontender, nondistended, +BS Skin: warm, dry Extremities: WWP no cyanosis or edema Neuro: RODRIGUES Laboratories: Recent Labs 06/26/17 0855 06/26/17 0929 06/26/17 1401 06/26/17 2213 PH -- 7.31* 7.33* 7.38 PCO2 -- 45* 46* 40 PO2 -- 86 87 78 HCO3 -- 22 24 23 [id number] -- 108* 348 371 VBGPH 7.27* -- -- -- VBGPCO2 49 -- -- -- VBGHCO3 22.4 -- -- -- Recent Labs 06/26/17 0939 06/26/17 1539 06/27/17 0043 WBC 18.47* 14.41* 14.30* HB 12.3* 12.4* 12.0* HCT 37.7* 37.8* 35.9* MCV 91.7 90.6 90.4 PLT 143* 127* 139* NEUTROPHILCO 17.82* -- -- LYMPHSABS 0.33* -- -- MONOCYTECO 0.31 -- -- EOSCO 0.00 -- -- BASOPHILCO 0.00 -- -- IMGRANABS 0.00 -- -- Recent Labs 06/26/17 1113 INRPT 1.34* APTT 32.5 FIBRINOGEN 362 Recent Labs 06/26/17 0930 06/26/17 1539 06/27/17 0043 NA 141 140 142 K 3.4 4.7 4.6 CL 110* 110* 109* BICARB 22 24 24 BUN 19 19 23* CR 0.90 0.85 0.94 CA 7.0* 7.4* 7.6* MG 1.8 -- 2.3 ANIONGAP 9 6 9 Recent Labs 06/26/17 0930 06/26/17 1539 06/26/17 1821 06/26/17 2157 06/27/17 0043 GLU 187* 195* 207* 194* 153* Recent Labs 06/26/17 0930 06/26/17 1539 06/27/17 0043 AST 171* 144* 119* ALT 204* 197* 180* TBILI 4.1* 3.8* 3.7* AP 174* 173* 157* ALB 2.9* 2.8* 2.8* TP 5.4* 5.4* 5.4* Recent Labs 06/26/17 0930 06/26/17 1539 LACTICACID -- 1.3 TROPONIN 0.33 0.25 Lab Orders - In Process (Through next 24h) Start Ordered 06/26/17 1645 SURGICAL PATHOLOGY COLLECT NOW, X1 Question Answer Comment Specimen: A Specimen Source A: Bile duct ampula bxs Clinical Indications: Cholangitis 06/26/17 1636 06/26/17 0945 CULTURE, BLOOD BACTI & YEAST Entered by lab 06/26/17 1059 06/26/17 0845 CULTURE, BLOOD BACTI & YEAST ONCE 06/26/17 0838 Microbiology: - Blood culture from 06/26 positive for gram negative bacilli (Klebsiella) in both aerobic an d anaerobic bottles Current Facility-Administered Medications Medication Dose Route Frequency Last Rate norepinephrine (LEVOPHED) 8mg/250 mL (0.032 mg/mL) IV infusion (ADC) 0.02-0.2 mcg/kg/m in intravenous CONTINUOUS Stopped (06/26/172025) propofol (DIPRIVAN) injection 0.5-50 mcg/kg/min intravenous CONTINUOUS 15 mcg/kg/min ( 06/27/17 0500) Current Facility-Administered Medications Medication Dose Route Frequency Last Rate acetaminophen (TYLENOL) tablet 650 mg 650 mg feeding tube TID chlorhexidine (PERIDEX) mouthwash 15 mL 15 mL oral Q6H enoxaparin (LOVENOX) injection 40 mg 40 mg subcutaneous QPM insulin lispro (HUMALOG) injection subcutaneous QID ipratropium-albuterol (DUO-NEB) nebulizer solution 3 mL 3 mL inhalation Q6H omeprazole (PRILOSEC) oral suspension (compound) 40 mg 40 mg feeding tube BEFORE BREAK FAST piperacillin-tazobactam (ZOSYN) 3.375 g in NaCl 0.9 % 50 mL IV (ADD-vantage) 3.375 g i ntravenous Q8H Stopped (06/27/17 949) Current Facility-Administered Medications Medication Dose Route Frequency Last Rate dextrose 50 % in water IV 25 mL 25 mL intravenous PRN glucagon (GLUCAGEN) injection 1 mg 1 mg intramuscular PRN glucose chewable tablet 16 g 16 g oral PRN HYDROmorphone (DILAUDID) injection 0.1-0.5 mg 0.1-0.5 mg intravenous Q2H PRN menthol-zinc oxide (CALAZIME) topical paste 0.2%-16.5% topical QID PRN propofol (DIPRIVAN) bolus from continuous infusion 10-20 mg 10-20 mg intravenous Q15MI N PRN Assessment & Plan: Aki Hurst is a 82 y/o M w/ hx of COPD (no hx of previous exacerbations), HTN, chart hx of unclear SVT, and prior GI bleed in 2013 2/2 esophogeal ulcer s/p clipping 2013 who presents as an OSH transfer to the MICU for septic shock likely secondary acute cholangitis 2/2 je docholithiasis now s/p ERCP and stent, also intubated while at OSH for hypoxic respiratory f ailure now s/p extubation. Neurological #Pain #Sedation Transiently on propofol in context of intubation, but turned off en route due to hypotensio n. Since arrival he has not required sedation for agitation while on ventilator. In fact, marcial s been mostly somnolent (see below). Has ativan 1-2 mg q hs for insomnia on his home med lis t, however unclear at this time whether he is taking it. Propofol transiently restarted even ing of 06/26 for discomfort on the vent. As of 06/27 propofol off and successfully extubated. Cu rrently without pain. Will defer opioids for now. - monitor for signs of pain and signs of benzo withdrawal - acetaminophen for pain Cardiovascular #?AVNRT, resolved #First degree AV block #Symptomatic junctional bradycardia, resolved On arrival was in SVT (Afib? with RVR) with rates in the 150s. He was started on an esmol ol drip and rates fell to 80s and stayed in normal range while off esmolol for several hours . This afternoon, had sudden bradycardia to HR 40-50s (while off esmolol) with corresponding MAP drop to high 50s without clear precipitant. EKG done showing junctional rhythm, no isch emic changes. NE restarted with good response in both HR and BP. Chart hx of "SVT," but no o ther information currently. Has diltiazem on home med list. - obtain OSH records - continuous tele - no more AV blockade for now unless back in symptomatic SVT - cardiology following #Type II NSTEMI Trop mildly elevated at 0.33 on admission. No report of recent CP from OSH or daughter. No ischemic changes on EKGs at OSH nor here. Suspect 2/2 type II NSTEMI 2/[address] tro ponin downtrending to 0.25. #Septic shock, resolved Presumably 2/2 acute cholangitis from choledocholithiasis (supported by fever, abd pain, el evated bilirubin and ALP, and dilated biliary tree). ERCP 06/26 showed several CBD stones and sludge removed after biliary sphincterotomy. No pus found. 10 Fr stent placed into CHD. Symp toms and VS improvement suggest that we have adequate source control, although if this beaulieu es it will be important to consider acute cholecystitis given sludge in gallbladder, wall th ickening, and + keita's sign. His urine output remains low but on the basis of HR and BP he appears to be adequately resuscitated. - continue zosyn - NE PRN to keep MAP >65 - fluid bolus PRN; continually assess volume status given unclear whether he marcial s hx of HF (on lasix at home) #HTN Noted to spontaneously wake up when MAP was higher, suspect he chronically runs high. On 06/27 HTN to 170.. Will consider anti-hypertensives today, although cautiously in the setting of possible ATN. - holding home lisinopril and diltiazem #HF? Daughter denies hx of HF, but has lasix on his home med list (daughter says to control leg edema after leg surgery). - reassess volume status frequently - asking for OSH record of any prior TTEs Respiratory #Hypoxic respiratory failure #COPD Noted to be increasingly tachypneic with increasing O2 requirement at OSH. CXR w/out much blunting of diaphragm and ABG w/out acidosis nor much CO2 elevation either to suggest obstru ction. Bicarb at OSH also normal, not suggestive of chronic respiratory acidosis. Wonder if part of his respiratory distress was 2/2 aspiration (some R lung base findings + vomited twi ce on route). If so, zosyn would cover for aspiration PNA. Initially tried on BIPAP, but int ubated when pt started vomiting. Now extubated. - scheduled duoneb for now - zosyn as above GI / Nutrition #Acute cholangitis #gram negative bacteremia At OSH, U/S evidence of distended gallbladder with intraluminal sludge no definite stones, increased wall thickness 4mm, positive sonographic keita sign. He received 1 dose of Unasy n at the OSH. Now s/p ERCP with GI. everal CBD stones and sludge removed after biliary sphin cterotomy. No pus found. 10 Fr stent placed into CHD. 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 - continue home PPI / Renal #oliguria Only 250 mL urine output from 7pm to 7am. Cr normal. Concern for emerging ATN in the settin g of sepsis. - f/u urine studies - f/u afternoon BMP Infectious Disease See GI. Hematology / Oncology No active issues. Endocrine #Pre-DM CBG in high 100s, likely stress induced. - SSI for now Consultants: GI Feeding: ADAT Analgesia: Acetaminophen Sedation: None (RASS Goal 0 (alert and calm)) Thromboprophylaxis: LMWH SC Head of Bed: Ad more Ulcer Prophylaxis: home PPI Glycemic control: SSI Mobility Goal: Bed rest Lines/Tubes/Drains/Airways: PIV Code Status Code Status Full Code Surrogate Decision Maker Documentation: Surrogate Decision Maker Primary Surrogate Decision Maker Sharon Rodriguez Daughter [phone] This patient was staffed with Dr. Lagunas, attending physician. Camilo Arreguin MD 06/27/2017, 6:01 AM Template created by [employer]erson 2017 A M Rene Cerna MD - 06/26/2017 4:38 PM PSTBrbraulio GI Procedure Note 06/26/2017 GI procedure performed. Procedure(s): ERCP Please refer to GI procedure note imported under Procedures tab in Chart Review for full de tails of procedure, impression and recommendations. ERCP performed. Several CBD stones and sludge removed after biliary sphincterotomy. No pus found. [address] ent placed into CHD. Recs: F/u blood cx F/u LFTs If no improvement clinically, re-evaluate his gallbladder Will need ERCP in 1 month for final duct clearance Rene Mendoza MD Gastroenterology Pager [phone] - Virginia Cerna MD - 06/26/2017 4:38 PM PSTFormatting of this note might be different from the origi nal. PRE PROCEDURE NOTE: MR# [id number] Subjective: Lilian Hurst is a 82 y.o. male who presents today for a GI procedure. Patient History Reviewed Medications reviewed Allergies: Allergies as of 06/26/2017 - Fully Reviewed 06/26/2017 Allergen Reaction Noted Aromatic Dyspnea 08/10/2013 Budesonide-formoterol Dyspnea 08/10/2013 Fluticasone-salmeterol Dyspnea 08/10/2013 Eucalyptus Dyspnea 06/26/2017 Fluticasone Dyspnea 06/26/2017 Hydrochlorothiazide Rash 06/26/2017 Pt NPO for 2 hrs. ROS: All others negative. Objective: Vital Signs: BP 73/62 | Pulse 61 | Temp 35.9 C (96.6 F) | RR 21 | Ht 1.753 m (5' 9") | Wt 86.5 kg (190 lb 11.2 oz) | SpO2 97% | BMI 28.16 kg/(m^2) Neuro: Patient oriented X3. Mental status clear and intact Mallampati Score: II Neck Neck supple. No adenopathy Respiratory: negative findings: no chest deformities noted, normal diaphragmatic excursion Cardiovascular: peripheral pulses are wnl, no edema Abdomen: nontender, no masses, no organomegaly Impression Patient deemed appropriate candidate for planned procedure and sedation. ASA 3 Plan Proceed with GI procedure PARQ held and all questions addressed. Consent obtained. See procedure note 06/26/2017 Alisha Rai M D - 06/26/2017 9:10 AM PST MICU Attending Note Admission Date: 06/26/2017 Length of stay: 0 days I examined the patient. I agree with the housestaff assessment and plan with the following additions/substractions/clarifications. 24 hour events Presented with abd pain and fever x 4 hours. Concern for choledocholithiasis. Transferred t [facility] this morning. Has history of COPD and was placed on bipap. Intubated prior to transfe r. Hypotensive en route with SVT. SBP into 50's. Stopped prop and started levophed. A-line and central line placed Assessment and Plan (medical decision making): Choledocholithiasis, treating for Acute respiratory failure Sepsis SVT with hypotension See resident note for details Plan for ERCP. Note that patient had transient hypotension associated with junctional bradycardia. Respond ed well to low-dose norepinephrine. Anesthesiology present and reviewed status of patient wi GI attending. Agreed to proceed with ERCP. Current Facility-Administered Medications Medication Dose Route Frequency esmolol (BREVIBLOC) 2500 mg/250 mL (10 mg/mL) in NS IV infusion (RTU) 50-200 mcg/kg/mi n (Order-Specific) intravenous CONTINUOUS esmolol (BREVIBLOC) IV infusion magnesium sulfate in water IV (RTU) 2 g 2 g intravenous ONCE menthol-zinc oxide (CALAZIME) topical paste 0.2%-16.5% topical QID PRN norepinephrine (LEVOPHED) 8mg/250 mL (0.032 mg/mL) IV infusion (RTU) 0.02-0.2 mcg/kg/m in (Order-Specific) intravenous CONTINUOUS piperacillin-tazobactam (ZOSYN) 3.375 g in NaCl 0.9 % 50 mL IV (ADD-vantage) 3.375 g i ntravenous Q8H piperacillin-tazobactam (ZOSYN) IV 4.5 g 4.5 g intravenous ONCE potassium chloride IV (central line) 40 mEq 40 mEq intravenous ONCE propofol (DIPRIVAN) injection 24 Hour Vital Min/Max: Systolic (24hrs), Av , Min:71 , Max:73 Diastolic (24hrs), Av, Min:55, Max:62 Pulse Av Min: 139 Max: 152 No Data Recorded Resp Av.3 Min: 18 Max: 19 SpO2 Av.3 % Min: 88 % Max: 100 % No intake or output data in the 24 hours ending 06/26/17909 No intake or output data since the admission date ending 06/26/17909 I personally reviewed the laboratory and radiology data from the last 24 hours. Up to Last 5 ABGs in 72 hours: No results for input(s): PH, PCO2, PO2, HCO3, [id number], [id number], G2DKGTCWP, FIO2 in the l ast 72 hours. Chemistries: Last 72 Hours (or 3 results): Recent Labs 06/26/17 0855 NA 139 K 3.3* Liver Tests: Last 72 hours (or 3 results) No results for input(s): AST, ALT, TBILI, AP, ALB, TP in the last 72 hours. CBC with diff last 72 hours (or 3 results) No results for input(s): WBC, HB, HCT, PLT, NEUTROPERC, LYMPHPERC, MONOPERC, BASOPERC, EOSP ERC in the last 72 hours. Invalid input(s): BANDPCT No results found for this basename: inr,pt,ptt,aptt,fibrinogen I spent 45 minutes of critical care time (managing issues that acutely impair one or more v ital organ systems such that there is a high probability of imminent or life threatening det erioration in the patient's condition). ALISHA LAGUNAS MD [facility] [address] [place] [address] documented in this enco unter H&P Notes Gokul Brown MD - 06/27/2017 6:20 PM PSTFormatting of this note might be differ ent from the original. Attending Physician: Dr. Petty Chief Complaint: abd pain HPI: Patient is an 82 year old male with COPD, essential hypertension, upper gastrointestinal b leed who was admitted to the MICU for septic shock 2/2 to acute cholangitis now post procedu re day two of sphincteromy and CHD stent. Patient describes himself as overall relatively healthy (except for his COPD, though on RA at baseline) and previously asymptomatic elderly male who developed subacute crampy abdomina l pain with meals over the last month. These episodes typically last thirty minutes to one h our associated with nausea, occasional non bloody, bilious vomiting. Denies distinct associ ation with fatty meals, denies post prandial improvement to pain (reliably induced pain with meals). On 06/25, his abdominal pain s/p meal was crescendo in character, lasting for hours , up to 10/10 epigastric pain tenderness, prompting him to present to OSH. At OSH, ultrasound was revealed gallbladder thickening and multiple stones in the biliary t hree. Patient was febrile up to 103s, tachycardic, and hypotensive in the 50s. He vomited mu ltiple times and developed increased respiratory work of breathing. Initially placed on BIPA P but unable to tolerate 2/2 to n/v. He was intubated and placed on pressors, transferred to [facility] MICU directly . In MICU, GI was consulted who performed ERCP with sphincterotomy with several CBD stones an d sludge removal yesterday + stent placement. He was also placed on zosyn for emperic antib iotic coverage. He was found to have gram-positive and klebsiella bacteremia.He was readily extubated and remains on 1-2L of NC. On kdco-lq-brma evaluation on general medicine floor, he reports that he is feeling well an d without any current symptoms. He denies any abdominal pain, nausea, vomiting.Denies any c rampy discomfort.,Tolerated a soup earlier well without any issues. Currently hungry and eag er for solid foods. Has been passing multiple bowel movements and gas. He did hx of UGUB in 2013 bleeding which required esophageal variceal clipping. Since then he has not had any karina ates be episodes of hematemesis. Denies any melena or hematochezia. Of note, and the medical ICU, he was also found to have heart rates in the 150s. 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 He was treated with esmolol to control HRs. .He also be came bradycardic in the 40s to 50s. EP was consult who recommended treating the underlying c ause (acute cholangitis infection). Denies any chest pain, dyspnea, current lightheadednes. He takes 20 mg of PO Lasix at home which she says his PCP gave him for bilateral LE . .He de nies any history of heart failure or chronic heart conditions. Denies any orthopnea, PND. D enies any hx of VTE, unilateral neg swelling. Past Medical History: I have updated the Problem List with the patient's relevant diagnoses. //HTN //COPD //UGIB 2/2 to variceal bleed s/p clipping //Chart hx of AVRT Review of Systems: I have performed a full ten point review of systems and negative except as above Home Medications: I have obtained and documented the prior to admission medication list and it is accurate. Prior to Admission Medications Prescriptions dilTIAZem CD 24 hour release 240 mg oral capsule,extended release 24hr fluticasone-salmeterol 100-50 mcg/dose inhalation blister with device Sig: Inhale 1 puff as needed. furosemide 20 mg oral tablet ipratropium-albuterol 0.5 mg-3 mg(2.5 mg base)/3 mL inhalation solution for nebulization Sig: Inhale 3 mL every four hours as needed for dyspnea/SOB. lisinopril 20 mg oral tablet loratadine (CLARITIN LIQUI-GEL) 10 mg oral capsule Sig: Take by mouth. omeprazole 40 mg oral capsule,delayed release(DR/EC) pravastatin 10 mg oral tablet Facility-Administered Medications: None Allergies I have reviewed and updated the allergy list. Allergies Allergen Reactions Aromatic Dyspnea Budesonide-Formoterol Dyspnea "I can't breathe when I use it." Fluticasone-Salmeterol Dyspnea "I can't breathe when I use it." Eucalyptus Dyspnea Fluticasone Dyspnea Hydrochlorothiazide Rash Social History I have updated the Social Hx as appropriate. T: 120 PY hx. 3PPD for 40 years. Quit 10+ years ago A: remote/social D: denies cocaine, meth, and all other recreational drugs Family History Denies any family hx of hepatobiliary or GI disorders Physical Exam: Last 24 hour min/max Temp: 36.2 C (97.2 F) Temp Min: 35.8 C (96.4 F) Max: 37 C (98.6 F) Pulse: 74 Pulse Min: 44 Max: 80 Resp: (!) 25 Resp Min: 15 Max: 26 BP: 147/71 BP Min: 101/67 Max: 156/75 SpO2: 91 % SpO2 Min: 91 % Max: 100 % Body mass index is 28.15 kg/m. Gen: looks stated age, no acute distress Head: NCAT Neck: JVP est 6-7cm CV: RRR, nl S1/S2, no m/r/g Pulm: resp unlabored, CTAB Neg wheezes, rales, rhonchi GI: soft, non-tender, non distended No rebound, guarding, rigidity Ext: warm, well perfused, 2+ pulses No pretibial edema Neuro: no gross focal deficits Psych: euthymic affect Laboratory Interpretation: CBC with diff last 72 hours (or 3 results) Recent Labs 06/26/17 0939 06/26/17 1539 06/27/17 0043 WBC 18.47* 14.41* 14.30* HB 12.3* 12.4* 12.0* HCT 37.7* 37.8* 35.9* PLT 143* 127* 139* NEUTROPERC 96.5* -- -- LYMPHPERC 1.8* -- -- MONOPERC 1.7* -- -- BASOPERC 0.0 -- -- EOSPERC 0.0* -- -- Chemistries: Last 72 Hours (or 3 results): Recent Labs 06/26/17 0930 06/26/17 1539 06/27/17 0043 06/27/17 1339 NA 141 140 142 141 K 3.4 4.7 4.6 4.5 CL 110* 110* 109* 109* BICARB 22 24 24 25 BUN 19 19 23* 27* CR 0.90 0.85 0.94 0.97 CA 7.0* 7.4* 7.6* 8.0* MG 1.8 -- 2.3 -- Liver Tests: Last 72 hours (or 3 results) Recent Labs 06/26/17 0930 06/26/17 1539 06/27/17 0043 AST 171* 144* 119* ALT 204* 197* 180* TBILI 4.1* 3.8* 3.7* AP 174* 173* 157* ALB 2.9* 2.8* 2.8* TP 5.4* 5.4* 5.4* No components found for: INR Lab Results Lab Test Name Results Date/Time APTT 32.5 06/26/17 FIBRINOGEN 362 06/26/17 Lab Results Component Value Date TROPONIN 0.25 06/26/2017 TROPONIN 0.33 06/26/2017 No results found for: NTPROBNP UA 10 DIP POC No results found for this or any previous visit. URINE MICRO Results for orders placed or performed during the hospital encounter of 06/26/17 URINE, MICROSCOPIC EXAM Result Value Ref Range RED CELLS 4 (H) 0 - 3 /hpf WHITE CELLS 4 0 - 5 /hpf BACTERIA None None /hpf YEAST (LAB) None None /hpf SQUAMOUS EPITHELIAL Few (A) None /hpf MUCOUS None None /hpf TRICHOMONAS None None /hpf NON-SQUAMOUS EPITH Few (A) None /hpf HYALINE CASTS 0 0 - 2 /lpf GRANULAR CASTS 0 0 - 2 /lpf CELLULAR CASTS 0 <=0 /lpf TRIPLE P04 CRYSTALS None None /hpf CALCIUM OXALATE CARA None None /hpf URIC ACID CRYSTALS None None /hpf AMORPHOUS CRYSTALS None None /hpf Imaging Interpretation: No US in [facility] system Summary Patient is an 82 year old male with COPD, essential hypertension, upper gastrointestinal b leed who was admitted to the MICU for septic shock 2/ to acute cholangitis c/b by klebsiell a bactermia now post procedure day two of sphincteromy and CHD stent, abx day 2 with zosyn. Transferred to floor, now afebrile, non tachycardic, hemodynamically stable. Now with resol kaushal abd pain, n/v. Problem based A/P //Acute cholangitis //Gram negative bactermia Source control s/p stent placement (allows, presumably infected, biliary fluid to drain) + treated with abx (zosyn). Improving subjectively without pain n/v and objectively by remaini ng afebrile w/ improving WBC and HD stable. May require an eventual lap je (GI consulted EGS who recommended outpt f/u). --Continue zosyn --F/u on klebsiella cultures --F/u for lap je eval and management as outpatient (pt prefers facility near [place]) --If febrile, order new bcx --If hypotensive/concern for sepsis, 500-1000cc boluses PRN //Hypoxic respiratory failure //COPD exacerbation No clear e/o of COPD exacerbation prior to day of intubation. Appears to have had severe vo miting, poss c/b by aspiration pneumonitis/PNA. Pt is unsure given poor recollection around time of intubation. Unlikely to be CAP PNA, no URI symptoms, most likely aspiration pneumoni tis vs well treated aspiration pneumonitis. --Scheduled duoneb --On 2L --> downtitrate to RA bsaeline as tolerated --88-92 percent 02 sats //Type II NSTEMI Trop peak of 0.33 on admit. Neg cp/pressure/dyspnea. Neg hx of HF or ACS. Non ischemic EKG. Repeat trope at 0.25. This is likely 2/2 to demand ischemia aka type ii NSTEMI --No further troponin or EKG checks --If develops chest pain, then new EKG nad tropes //AVNRT, resolved //First degree AV block //Symptomatic junctional bradycardia, resolved Per EMS, had SVT concerning for AF in the 150s. No e/o of AF. MICU team belives pt had SVT that was responsive to esmolol on floor. He has also had inocente in the 40s to 50 and correspo nding x1 MAP drop. EP cards consulted who does not recommend any further interentions at thi s time. --Continuous tele --Treat underlying infection //Bilateral LE edema Likely CVI changes in elderly man. Denies any hx of documented HF vs any other major cardia ccomorbidities. --Consider restrating 20mg home lasix //HTN --Home lisinopril //hx of UGB HGB stable --Continue home PPI //Oliguria Has had diminished PO output on arriaga. Cr wnl. Unclear etiology. Oliguria without accompanying cr = "at risk for kidney injury" rather than aki injury --BMP in AM Consultants:GI Feeding: ADAT Analgesia: Acetaminophen Thromboprophylaxis: LMWH SC Head of Bed: Ad more Ulcer Prophylaxis:home PPI Glycemic control:SSI MobilityGoal:Bed rest Lines/Tubes/Drains/Airways: PIV Associated attestation - Vic Petty MD - 06/28/2017 2:48 PM PSTFormatting of th is note might be different from the original. MEDICINE ATTENDING ADMISSION NOTE ADMIT DATE: 06/26/2017 8:35 AM TODAY'S DATE: 06/28/2017 (HOSPITAL DAY 2) I personally interviewed the patient, performed the hartley elements of the physical examinatio n, and agree with Dr. Peralta's history, exam, assessment and plan. I have noted any a dditions or exceptions below. Assessment and Plan: Patients Hospital Problem List: Active Hospital Problems 1) *Septic shock (HCC) 2) Choledocholithiasis 3) Acute cholangitis 4) Klebsiella sepsis (HCC) 5) Aspiration pneumonitis (HCC) 6) S/P ERCP 7) COPD (chronic obstructive pulmonary disease) (HCC) 8) Essential hypertension 82 year-old man with HTN, COPD not on supplemental oxygen, who presented to OSH with epigas tric pain and abnormal LFTs, admitted for septic shock due to acute cholangitis and acute hy poxic respiratory failure due to aspiration requiring intubation, transferred to [facility] MICU. Here found to have klebsiella bacteremia and now status post ERCP on 06/27. Post-ERCP he had been doing well with minimal pain but than overnight developed severe epig astric pain. Lipase wnl. Ab US ordered. Continues on piperacillin-tazobactam. Will alert GI to overnight events and provide with pain medications. See resident note for additional details. Vic Petty MD, PhD Clinical Hospitalist and Medicine Teaching Services [facility] Pager [phone] I spent more than 70 minutes [id number] with the patient of which greater than 50% was sp ent counseling the patient on acute cholangitis, abdominal pain, klebsiella bacteremia and i n coordination of care. Dianna Dodson MD - 06/26/2017 6:46 AM PSTFormatting of this note might be different from t sarath original. [facility] MEDICAL ICU - HISTORY & PHYSICAL Author: DIANNA DODSON MD Attending: Alberto Miranda MD ID/CC: Aki Hurst is a 82 y.o. man admitted to the MICU for septic shock likely secondary t o acute cholangitis. HPI: Mr. Hurst is a 82 y/o M w/ hx of COPD (no hx of previous exacerbations), HTN, chart hx of unclear SVT, and prior GI bleed in 06/22 esophogeal ulcer s/p clipping 2013 who presen ts as an OSH transfer to the MICU for septic shock. History is limited given pt is intubated . Per his daughter, pt has been having post-prandial abd pain for several months. She states it generally resolved after a few hours, however, yesterday night she received a phone call from him that he had acute onset, severe epigastric pain x 4 hours which prompted him to go the ED. He reportedly took "acid reflux med" without relief. Initial VS with EMS showed fev er of 102.1, HR 78, BP 152/62, elevated RR 36, 87% on RA. He reportedly had Afib on monitor on route. Given zofran on route for one episode of emesis. At OSH ED, he was given duoneb with initial improvement in respiratory status. However, rou ghly 3 hours later, he again had increasing HR and RR, noted to be "pursed lip breathing." O 2 bumped to 6 L NC, second duoneb given, however RR continued to climb to 43, hence BIPAP at tempted. Pt did not tolerate BIPAP due to nausea and vomiting, hence pt was then intubated a nd transported to [facility]. On route here, had hypotension with SBP reportedly 40-50s and requir ed propofol to be stopped and NE started. He received an unknown amount of IVF (at least 2 L ) prior to arrival here. He also received 125 solumedrol and 3 gm unison at OSH. Work up at OSH notable for abd US with gallbladder sludge and wall thickening, + Keita's sign, and dil ated biliary tree. Also noted to have leukocytosis of 10.8 w/ neutrophil 89.4, Hgb 13/9, PLT 183, NA 136, K 4.1, Cl 99, CO2 27, BUN 18, Cr 0.97, Lactic acid 2.2, TBili 3.1, AST 315, AL T 259, Alk Phos 221 BNP 113 (range 0-100), clean UA, negative trop. CXR with bibasilar perip heral interstitial markings R>L. ROS: Unable to obtain due to mental status. Per OSH record, had flu in May and placed on davila iflu. Past Medical History: Diagnosis Date COPD (chronic obstructive pulmonary disease) (HCC) GI bleed 2013 esophageal ulcer s/p clipping 2013 HTN (hypertension) Normocytic anemia Hgb around 11 in 2013 Prediabetes SVT (supraventricular tachycardia) (HCC) unclear hx. "Possible SVT" per chart in 2012. No previous COPD exacerbations or admissions per daughter. Does not seem to use inhalers at home ("he's allergic to them"), but daughter also said she is not very familiar with his me dical problems. She denies hearing about hx of HF. Says he often has bilateral leg swelling which she attributes to previous leg surgery. Patient Active Problem List Diagnosis Choledocholithiasis Allergies Allergen Reactions Aromatic Dyspnea Budesonide-Formoterol Dyspnea "I can't breathe when I use it." Fluticasone-Salmeterol Dyspnea "I can't breathe when I use it." Eucalyptus Dyspnea Fluticasone Dyspnea Hydrochlorothiazide Rash Prior to Admission Medications Prescriptions LORazepam 1 mg oral tablet Sig: Take 1-2 mg by mouth once daily at bedtime. Indications: Insomnia dilTIAZem CD 24 hour release 240 mg oral capsule,extended release 24hr fluticasone-salmeterol 100-50 mcg/dose inhalation blister with device Sig: Inhale 1 puff as needed. furosemide 20 mg oral tablet ipratropium-albuterol 0.5 mg-3 mg(2.5 mg base)/3 mL inhalation solution for nebulization Sig: Inhale 3 mL every four hours as needed for dyspnea/SOB. lisinopril 20 mg oral tablet loratadine (CLARITIN LIQUI-GEL) 10 mg oral capsule Sig: Take by mouth. omeprazole 40 mg oral capsule,delayed release(DR/EC) pravastatin 10 mg oral tablet Facility-Administered Medications: None Of note, the above med list was obtained via OSH records. Cannot confirm at this time given pt intubated. Past Surgical History: Procedure Laterality Date ANKLE SURGERY BACK SURGERY 1981 RIGHT KNEE SURGERY TREATMENT OF FRACTURE OF LOWER LEG Fam hx: cannot obtain right now Social History Substance Use Topics Smoking status: Former Smoker Smokeless tobacco: Not on file Comment: per chart. Cannot verify right now pt intubated. Alcohol use Yes Comment: occasional Quit smoking 30 years ago per OSH records. Social History Social History Narrative No narrative on file Vital Signs: Cuff BP (!) 73/62 (06/26/17 0850) | BP Min: 71/55 Max: 73/62 Cuff MAP 68 mmHg (06/26/17 0850) | BP Mean Min: 62 mmHg Max: 68 mmHg Art Line BP 111/54 (06/26/17 1536) | ART Line BP Min: 75/42 Max: 175/93 Art Line MAP 75 mmHg (06/26/17 1536) | ART Line BP Mean Min: 57 mmHg Max: 125 mmHg HR (!) 45 (06/26/17 1536) | Pulse Min: 40 Max: 152 | Cardiac Rhythm: Irregular;1st Degree AVB (06/26/17 1200) Temp 35.9 C (96.6 F) (06/26/17 1400) | Temp Min: 35.9 C (96.6 F) Max: 36.4 C (9 7.5 F) RR 22 (06/26/17 1536) | Resp Min: 18 Max: 24 SpO2 97 % (06/26/17 153) | SpO2 Min: 88 % Max: 100 % O2 Device Endotracheal tube (06/26/17 1200) | Volume AC (06/26/17 0845) Ventilator Settings PSV: PEEP Set: 8 cm H2O RR: 22 bpm FiO2: 30 fraction of O2 Observed Ventilation Vex: Mandatory 580 ml | Spontaneous [place] BW: 70.7 kg RR: 18 bpm Minute Ventilation: 11.1 L/MIN SpO2: 97 % Ventilator Diagnostics (Past 24 hrs) Pplat 11 cm H2O (06/26/17 0845) | Driving Pressure Total PEEP | AutoPEEP SBT Assessed | SBT Outcome Cam/RASS Flowsheet Row Most Recent Value CAM (Confusion Assessment Method) Unable to complete assessment (see comments) [not partic ipating in exam] RASS Scale -1 CPOT 3 (06/26/17 1211) No intake or output data in the 24 hours ending 06/26/17 0700 No intake or output data sin e the admission date ending 06/26/17 0646 BMI: Weights 86.5 kg (190 lb 11.2 oz) (06/26/17 0905) Admit Wt: 86.5 kg (190 lb 11.2 oz) Physical Exam: Gen - elderly male lying in NAD. Intubated. HEENT - anicteric sclera. Pin point pupils. CV - RRR, no m/g/r. Resp - ventilated breath sounds, no focal coarse sounds Abd - normoactive BS; soft, NT, ND; no masses Ext - WWP. No clubbing or cyanosis. Trace ankle edema. Neuro - opens eyes to sternal rub. Moves all four extremities spontaneously while intubated . Laboratories: Recent Labs 06/26/17 0855 06/26/17 0929 06/26/17 1401 PH -- 7.31* 7.33* PCO2 -- 45* 46* PO2 -- 86 87 HCO3 -- 22 24 SNC4UOE1 -- 108* 348 VBGPH 7.27* -- -- VBGPCO2 49 -- -- VBGHCO3 22.4 -- -- Recent Labs 06/26/17 0939 WBC 18.47* HB 12.3* HCT 37.7* MCV 91.7 PLT 143* NEUTROPHILCO 17.82* LYMPHSABS 0.33* MONOCYTECO 0.31 EOSCO 0.00 BASOPHILCO 0.00 IMGRANABS 0.00 Recent Labs 06/26/17 1113 INRPT 1.34* APTT 32.5 FIBRINOGEN 362 Recent Labs 06/26/17 0855 06/26/17 0930 NA 139 141 K 3.3* 3.4 CL -- 110* BICARB -- 22 BUN -- 19 CR -- 0.90 CA -- 7.0* MG -- 1.8 ANIONGAP -- 9 Recent Labs 06/26/17 0930 GLU 187* Recent Labs 06/26/17 0930 AST 171* ALT 204* TBILI 4.1* AP 174* ALB 2.9* TP 5.4* Recent Labs 06/26/17 0930 06/26/17 1539 LACTICACID -- 1.3 TROPONIN 0.33 -- Microbiology: OSH BCx in process BCx drawn here 06/26 in process Imagin/6 studies from OSH -- portable CXR: bibasilar peripheral interstitial markings R>L -- Abdominal US: distended gallbladder with intraluminal sludge no definite stones, increas ed wall thickness 4mm, positive sonographic keita sign CXR 1 view 06/26/17 here: 1. ET tube terminates 7 cm above ray. 2. NG tube barely extends beyond the GE junction; this could be advanced for more optimal positioning. 3. Mild infrahilar airways thickening can be seen with reactive airways disease or bronch itis. Right lung base atelectasis. EKG/Echocardiogram: 06/26 at OSH: sinus tach 110, normal intervals, RBBB 2/6 AM here: NSR with PAC; rates in high 70s, 1st degree AV block, RBBB Current Facility-Administered Medications Medication Dose Route Frequency Last Rate [MAR Hold] esmolol (BREVIBLOC) 2500 mg/250 mL (10 mg/mL) in NS IV infusion (RTU) 50-20 0 mcg/kg/min (Order-Specific) intravenous CONTINUOUS Stopped (06/26/17 0950) [JUL Hold] norepinephrine (LEVOPHED) 8mg/250 mL (0.032 mg/mL) IV infusion (ADC) 0.02-0 .2 mcg/kg/min intravenous CONTINUOUS 0.02 mcg/kg/min (06/26/17 1614) Current Facility-Administered Medications Medication Dose Route Frequency Last Rate [JUL Hold] acetaminophen (TYLENOL) tablet 650 mg 650 mg feeding tube TID atropine injection [JUL Hold] chlorhexidine (PERIDEX) mouthwash 15 mL 15 mL oral Q6H [JUL Hold] enoxaparin (LOVENOX) injection 40 mg 40 mg subcutaneous QPM [JUL Hold] indomethacin (INDOCIN) suppository 100 mg 100 mg rectal ONCE [JUL Hold] ipratropium-albuterol (DUO-NEB) nebulizer solution 3 mL 3 mL inhalation Q6H [JUL Hold] omeprazole (PRILOSEC) capsule 40 mg 40 mg oral BEFORE BREAKFAST [JUL Hold] piperacillin-tazobactam (ZOSYN) 3.375 g in NaCl 0.9 % 50 mL IV (ADD-vantage) 3.375 g intravenous Q8H [JUL Hold] potassium chloride IV (CENTRAL LINE-ICU) 20 mEq 20 mEq intravenous Q1H propofol (DIPRIVAN) injection Current Facility-Administered Medications Medication Dose Route Frequency Last Rate [JUL Hold] menthol-zinc oxide (CALAZIME) topical paste 0.2%-16.5% topical QID PRN Assessment & Plan: Aki Hurst is a 82 y/o M w/ hx of COPD (no hx of previous exacerbations), HTN, chart hx of unclear SVT, and prior GI bleed in 2013 2/2 esophogeal ulcer s/p clipping 2013 who presents as an OSH transfer to the MICU for septic shock likely secondary acute cholangitis 2/2 je docholithiasis, also intubated while at OSH for hypoxic respiratory failure. Neurological #Pain #Sedation Transiently on propofol in context of intubation, but turned off en route due to hypotens ion. Since arrival he has not required sedation for agitation while on ventilator. In fact, has been mostly somnolent (see below). Has ativan 1-2 mg q hs for insomnia on his home med l ist, however unclear at this time whether he is taking it. - con to monitor to hold sedation for now - monitor for signs of pain and signs of benzo withdrawal Cardiovascular #SVT #First degree AV block #Symptomatic junctional bradycardia On arrival was in SVT (Afib? with RVR) with rates in the 150s. He was started on an esmol ol drip and rates fell to 80s and stayed in normal range while off esmolol for several hours . This afternoon, had sudden bradycardia to HR 40-50s (while off esmolol) with corresponding MAP drop to high 50s without clear precipitant. EKG done showing junctional rhythm, no isch emic changes. NE restarted with good response in both HR and BP. Chart hx of "SVT," but no o ther information currently. Has diltiazem on home med list. - obtain OSH records - continuous tele - no more AV blockade for now unless back in symptomatic SVT #Troponemia Trop mildly elevated at 0.33 on admission. No report of recent CP from OSH or daughter. No ischemic changes on EKGs at OSH nor here. Suspect 2/2 type II NSTEMI 2/2 sepsis. - f/u repeat trop from this afternoon #Septic shock Presumably 2/2 acute cholangitis from choledocholithiasis (supported by fever, abd pain, e levated bilirubin and ALP, and dilated biliary tree). Undergoing ERCP with GI right now. If no stone found, another possibility is severe acute cholecystitis given sludge in gallbladde r, wall thickening, and + keita's sign. Unclear how much fluid resuscitation he got at OSH (at least 2 L IVF). In terms of other sources, UA clean at OSH. Considered PNA (leonel given ch art hx of flu in May), however CXR with only R lung base atelectasis, no mention of recent c ough, and on close to minimal vent setting currently, so think less likely. - continue zosyn - NE PRN to keep MAP >65 - fluid bolus PRN; continually assess volume status given unclear whether he has hx of HF (on lasix at home) #Hx of HTN Noted to spontaneously wake up when MAP was higher, suspect he chronically runs high. - holding home lisinopril and diltiazem #HF? Daughter denies hx of HF, but has lasix on his home med list (daughter says to control leg edema after leg surgery). - reassess volume status frequently - asking for OSH record of any prior TTEs Respiratory #Hypoxic respiratory failure #COPD Noted to be increasingly tachypneic with increasing O2 requirement at OSH. CXR w/out much blunting of diaphragm and ABG w/out acidosis nor much CO2 elevation either to suggest obstru ction. Bicarb at OSH also normal, not suggestive of chronic respiratory acidosis. Wonder if part of his respiratory distress was 2/2 aspiration (some R lung base findings + vomited twi ce on route). If so, zosyn would cover for aspiration PNA. Initially tried on BIPAP, but int ubated when pt started vomiting. On minimal vent setting currently, suspect can likely extub ate soon. - scheduled duoneb for now - SBT today - zosyn as above GI / Nutrition #Acute cholangitis At OSH, U/S evidence of distended gallbladder with intraluminal sludge no definite stones, increased wall thickness 4mm, positive sonographic keita sign. He received 1 dose of Unasy n at the OSH. Now undergoing ERCP with GI. - continue zosyn - f/u outside hospital blood cultures - f/u blood culture here - GI consulted, appreciate recs #Hx of GI bleed 2/2 esophogeal ulcer Hgb at baseline currently. - continue home PPI / Renal No active issues. Infectious Disease See GI. Hematology / Oncology No active issues. Endocrine #Pre-DM CBG in high 100s, likely stress induced. - SSI for now Consultants: GI Feeding: NPO/Bowel Rest Analgesia: Acetaminophen Sedation: None (RASS Goal 0 (alert and calm)) Thromboprophylaxis: LMWH SC Head of Bed: Ad more Ulcer Prophylaxis: home PPI Glycemic control: SSI Mobility Goal: Bed rest Lines/Tubes/Drains/Airways: CVC, Arterial Line and ET Tube Code Status Code Status Full Code Surrogate Decision Maker Documentation: This patient was staffed with Dr. Lagunas, attending physician. DIANNA DODSON MD 06/26/2017, 4:55 PM Template created by BJHerson 2017 P M PST Associated attestation - Alisha Lagunas MD - 06/26/2017 6:48 PM PSTPulmonary and Critical Care Attending Note I personally examined the patient. I also personally reviewed the laboratory and radiology data. I agree with the housestaff assessment and plan. ALISHA LAGUNAS MD [facility] [address] [place] [address] documented in this encounter Procedure Notes Reid Hu MD,PhD - 06/26/2017 9:10 AM PSTAssociated Order(s): ART LINE ARTERIAL LINE Performed by: REID HU Authorized by: ALISHA LAGUNAS ART Line Insertion Procedure Note Indications: Beat to beat blood pressure monitoring and Frequent lab draws Procedure location: Providers: Attending name: Attending physically present: No Resident name: Reid Hu Pre-Procedure Consent: written consent not obtained Verbal consent not obtained The procedure was performed in an emergent situation Patient identity confirmed per policy: Yes Team Pause: Immediatly prior to the procedure a pause per protocol was called. A pause veri fies correct patient, procedure, equipment, marketing support coordinator and site/side marked as required. CLABSI Prevention Bundle: Insertion site: Right Radial Skin preparation: Chloraprep Protective barrier: Cap, Mask, Hand scrub, Gloves and Partially draped. Sterile Ultrasound Used, Line secured: StatLock and tape Anesthesia Anesthesia: none Procedure Details Patient was placed in appropriate position Catheter size: 20g Line was secured by StatLock and tape Attempts 1 attempt(s) were made. Complications Type: None REID HU MD,PhD Abiodun Gonsalves MD - 06/26/2017 8:21 AM PSTAssociated Order(s): CVL CENTRAL LINE Performed by: ABIODUN RASCON Authorized by: ALISHA LAGUNAS Central Venous Catheter Insertion Procedure Note Pre-Procedure Consent: written consent not obtainedVerbal consent not obtained The procedure was performed in an emergent situation Patient identity confirmed per policy: Yes Team Pause: Immediatly prior to the procedure a pause per protocol was called. A pause verifies correct patient, procedure, equipment, marketing support coordinator and site/side marked as requir ed. CLABSI Prevention Bundle: Insertion site: Right Internal Jugular vein With catheter tip targeted in SVC, see CXR report for confirmation Skin preparation: Chloraprep Protective barrier: Cap, Mask, Hand scrub, Gown, Gloves and Full body drape.Sterile Ultr asound techniques (sterile gel, and sterile probe cover) used Procedure Details Patient was placed in appropriate position The vascular anatomy was identified by Ultrasound Guidance. The modified Seldinger technique (a [id number]-[id number]-[id number]-[id number]-mdat-[id number]-bhl-jbsrzwuy ) was used for vessel cannulation. The wire was visualized with ultrasound in the correct ta rget vessel. Ultrasound no images saved A non-tunneled Triple lumen (size of 7 Fr) catheter with a length of 16 cm was inserted to 15 cm at the skin. All ports aspirated for blood and flushed with Saline Sedation/Anesthesia/Analgesia Analgesia: No Anesthesia: none with ml Indications: Frequent lab draws, Inadequate peripheral venous acce ss and Administration of vasoactive medication Procedure location: Providers: Attending name: Attending physically present: Yes Fellow name: Abiodun Rascon Monitoring The patients vital signs were monitored by EKG, SaO2 and NIBP during the procedure. For det ails see EMR. Attempts 1 attempt(s) were madeIndications: Frequent lab draws, Inadequate peripheral venous access and Administration of vasoactive medication ABIODUN RASCON MD documented i n this encounter Consult Notes Delon Avitia - 06/28/2017 1:04 PM PSTFormatting of this note might be different from the gregory vane. Pharmacy Services: Student Admission Medication Reconciliation I have reviewed the patient s home medication list and found it to be accurate with the f ollowing exceptions: Medications Discontinued Prior to Admission: Medication/dose/sig Source of Information Reason for Discontinuation Fluticasone/Salmeterol/ 100-50 mcg/dose (advair)/Inhale 1 puff as needed Patient Causes pat ient to choke and difficulty breathing Trazodone/50 mg/Take 1 tablet by mouth nightly Patient Patient did not need medication anym ore and stopped taking it since about 2 weeks ago OTC/Herbal Products: Product Dose Route Frequency Aleve tablets 200 mg Orally 2 tablets as needed for pain Additional Information: Patient's previous primary care physician have retired and he is currently going to Dr. Geovanni Hylton in [facility] [place] for primary care. Allergies: Allergies Allergen Reactions Aromatic Dyspnea Budesonide-Formoterol Dyspnea "I can't breathe when I use it." Fluticasone-Salmeterol Dyspnea "I can't breathe when I use it." Eucalyptus "it causes my airway to shut, even the scent" Dyspnea Fluticasone Dyspnea Hydrochlorothiazide Rash/Hives/Itch Lilian Hurst is a 82 year old male admitted to for post procedure care of sphincteromy a nd CHD stent following septic shock 2/2 to acute cholangitis at the MICU. Pharmacy Preferences: [id number] [place], [place] Fax: Source of Medication Information: Patient and Pharmacy Reliability: Reliable The above changes will be reviewed with the supervising pharmacist. The patient s prior t o admission medication list will be updated accordingly. A total of 20 minutes were spent on this activity. All questions concerning medications, in cluding OTC and herbal products, were addressed. For questions regarding this information contact Delon Avitia Candidate Class of 2018 Pager # [phone] Associated attestation - Alisa Flores PharmD - 06/28/2017 1:48 PM PSTI have reviewed an d agree with the pharmacy benefits coordinator's documentation and have documented any additions or excep tions. Medication doses updated per pharmacy records and patient report. Refuses inhalers, b ut has been using Duonebs at home. Alisa Flores PharmD, [facility] Pager [phone] Cassy Patricio MD - 06/27/2017 8:14 AM PST Gastroenterology Progress Note Date: 06/27/2017 IMPRESSION 82 year-old male with a past medical history significant for HTN, COPD, SVT, esophageal ulc er, admitted to the MICU with septic shock secondary to acute cholangitis. ERCP done 06/26 s howed choledocholithiasis, with stones removed and stent placed. Today patient shows signifi cant clinical improvement and is transferring to the floor. Patient will need repeat ERCP in 4 weeks post discharge for stent removal. Regarding need for cholecystectomy, spoke with [facility] who advise outpatient follow up after stent removal to discuss elective cholecyst ectomy (no indication for inpatient surgical management). RECOMMENDATIONS - Continue antibiotics, transition to oral antibiotics per primary team - Follow up pathology (biopsies taken during ERCP) - Will need ERCP in 4 weeks post d/c to remove stent and clear duct (GI will arrange this) - Outpatient surgery consult upon discharge to discuss elective cholecystectomy We will continue to follow along with you. This plan was discussed and formulated with the Gastroenterology attending, Dr. Mckenzie. Please call the on-call GI fellow with any questions. Cassy Patricio MD Internal Medicine PGY2 Pager #[phone] INTERVAL HISTORY: - ERCP with choledocholithiasis, stones removed, stent placed - Blood cultures + for klebsiella oxytoca - Extubated this AM SUBJECTIVE: Feeling fine, no abdominal pain, fevers, chills, no concerns Current Facility-Administered Medications Medication Dose Route Frequency acetaminophen (TYLENOL) tablet 650 mg 650 mg feeding tube TID chlorhexidine (PERIDEX) mouthwash 15 mL 15 mL oral Q6H dextrose 50 % in water IV 25 mL 25 mL intravenous PRN enoxaparin (LOVENOX) injection 40 mg 40 mg subcutaneous QPM glucagon (GLUCAGEN) injection 1 mg 1 mg intramuscular PRN glucose chewable tablet 16 g 16 g oral PRN HYDROmorphone (DILAUDID) injection 0.1-0.5 mg 0.1-0.5 mg intravenous Q2H PRN insulin lispro (HUMALOG) injection subcutaneous QID ipratropium-albuterol (DUO-NEB) nebulizer solution 3 mL 3 mL inhalation Q6H menthol-zinc oxide (CALAZIME) topical paste 0.2%-16.5% topical QID PRN norepinephrine (LEVOPHED) 8mg/250 mL (0.032 mg/mL) IV infusion (ADC) 0.02-0.2 mcg/kg/m in intravenous CONTINUOUS omeprazole (PRILOSEC) oral suspension (compound) 40 mg 40 mg feeding tube BEFORE BREAK FAST piperacillin-tazobactam (ZOSYN) 3.375 g in NaCl 0.9 % 50 mL IV (ADD-vantage) 3.375 g i ntravenous Q8H propofol (DIPRIVAN) bolus from continuous infusion 10-20 mg 10-20 mg intravenous Q15MI N PRN propofol (DIPRIVAN) injection 0.5-50 mcg/kg/min intravenous CONTINUOUS EXAM BP 101/67 | Pulse 63 | Temp 36.5 C (97.7 F) | RR 22 | Ht 1.753 m (5' 9.02") | Wt 86.5 k g (190 lb 11.2 oz) | SpO2 94% | BMI 28.15 kg/(m^2) Systolic (24hrs), Av , Min:71 , Max:101 Diastolic (24hrs), Av, Min:55, Max:67 Pulse Av.9 Min: 40 Max: 152 Temp Av.2 C (97.1 F) Min: 35.8 C (96.4 F) Max: 36.5 C (97.7 F) Resp Av.4 Min: 15 Max: 26 SpO2 Av.7 % Min: 88 % Max: 100 % Gen: well appearing older male, resting in bed, NAD HEENT: sclera anicteric CV: rrr, no m/r/g Lungs: CTAB Abd: soft, nontender, normoactive bs, no rebound or guarding Ext: wwp, no edema LABS CBC with diff last 72 hours (or 3 results) Recent Labs 06/26/17 0939 06/26/17 1539 06/27/17 0043 WBC 18.47* 14.41* 14.30* HB 12.3* 12.4* 12.0* HCT 37.7* 37.8* 35.9* PLT 143* 127* 139* NEUTROPERC 96.5* -- -- LYMPHPERC 1.8* -- -- MONOPERC 1.7* -- -- BASOPERC 0.0 -- -- EOSPERC 0.0* -- -- Chemistries: Last 72 Hours (or 3 results): Recent Labs 06/26/17 0930 06/26/17 1539 06/27/17 0043 NA 141 140 142 K 3.4 4.7 4.6 CL 110* 110* 109* BICARB 22 24 24 BUN 19 19 23* CR 0.90 0.85 0.94 CA 7.0* 7.4* 7.6* MG 1.8 -- 2.3 Liver Tests: Last 72 hours (or 3 results) Recent Labs 06/26/17 0930 06/26/17 1539 06/27/17 0043 AST 171* 144* 119* ALT 204* 197* 180* TBILI 4.1* 3.8* 3.7* AP 174* 173* 157* ALB 2.9* 2.8* 2.8* TP 5.4* 5.4* 5.4* Lab Results Component Value Date INRPT 1.34 (H) 06/26/2017 IMAGING PROCEDURES ERCP 06/26/2017 Findings: urgent SOR case for ICU patient with acute cholangitis. The fresh food manager film was normal. The esophagus was successfully intubated under direct vision. The scope was advanced to a normal major papilla in the descending duodenum without detailed examination of the pharynx, larynx and associated structures, and upper GI tract. The upper GI tract was grossly normal. A short 0.035 inch Soft Jagwire was passed into the biliary tree. The short-nosed traction sphincterotome was passed over the guidewire and the bile duct was then deeply cannulated. Contrast was injected. I personally interpreted the bile duct images. Ductal flow of contrast was adequate. Image quality was excellent. Contrast extended to the hepatic ducts. The bile duct was significant pulled to the patient right and angulated. The wire could be advanced to the hepatic ducts. The main bile duct contained four stones, the largest of which was 8 mm in diameter. There was mild biliary dilation. A biliary sphincterotomy was made with a traction (standard) sphincterotome. There was no post-sphincterotomy bleeding. The biliary tree was swept with a 10 mm balloon starting at the bifurcation. Sludge was swept from the duct. Four stones were removed. No stones remained. A 10 mm balloon could be brought through the sphincterotomy with ease. Multiple additional balloon sweeps performed and no additional stones or sludge were found. Negative final occlusion cholangiogram. One 10 Fr by 10 cm plastic biliary stent was placed into the common bile duct. Bile flowed through the stent. The stent was in good position. The ampulla after sphincterotomy had an unusual appearance and was erythematous. Biopsies were taken of this region through the ERCP scope with the cold forceps for histology. The pancreatic duct was neither injected nor cannulated. Impression: - Choledocholithiasis was found. Complete removal was accomplished by biliary sphincterotom y and balloon extraction. No pus found. Given acute cholangitis, 10 Fr stent placed. - Unusual appearance of post sphincterotomy ampulla, bx taken Associated attestation - Paulette Mckenzie MD - 06/27/2017 4:30 PM PST82 y.o. Man PMHx COPD, S VT, MICU admission for cholangitis s/p ERCP with choledocholithiasis s/p stone extraction an d stent placement Please refer to provation report for detailed procedural intervention Advancing diet Antibiotics transition to PO per primary No further inpatient GI workup; repeat outpatient ERCP in 4 weeks Consider outpatient surgical evaluation for cholecystectomy GI will sign off, please call with questions. Attending Attesta tion: I personally interviewed the patient, performed the relevant elements of the physical exami nation, and formulated the assessment and plan with Dr. Patricio on 06/27/17. See Dr. Tasha barrera's note for further details. Paulette Mckenzie MD Investigator Fraudinformation security director Department of Gastroenterology [facility] DEPARTMENT: GI - [phone] Place of Service: [facility]: [id number] Suggested Modifiers: GC - Resident Involved Suggested Level of Care: 19146 (<15 minutes) Gunner Viera, Brian C - 06/26/2017 7:27 PM PST Cardiology Consult Note Reason for Consult: abnormal heart rhythm Requested By: Dr. Alberto Miranda MD with MICU History of Present Illness: Lilian Hurst is an 82 year-old male with a past medical history of HTN, COPD, paroxsym al SVT, prior GIB due to esophageal ulcer who is presently admitted to the MICU with acute c holangitis, septic shock and acute respiratory failure. The patient presented to an outside emergency room 06/25/17 with shortness of breath and was given inhaled albuterol and ipratropi um. By report he had increasing HR and RR and was then intubated and transported to [facility]. Du ring transfer he had hypotension that required propofol to be stopped and an infusion of nor epinephrine was started. Upon arrival here early this morning the patient was in a narrow co mplex tachycardia with a rate around 150 bpm. The telemetry data was reviewed. The rhythm is very regular. There is intermittent slowing of the tachycardia with no discernable atrial a ctivity between QRS complexes. The patient was then started on an esomolol infusion at 50 mc g/kg/min for about an hour. He then converted to normal sinus rhythm and was intermittently hypotensive with the norepinephrine infusion being decreased throughout the day. At around 3 pm the patient then went into what appears to be a junctional rhythm of around 45 bpm that w as associated with hypotension. He then returned to sinus rhythm for a few hours and went ba ck into junctional rhythm and has since remained in junctional rhythm with a heart rate arou nd 45 bpm. There are intermittent brief pauses while in sinus rhythm and while in junctional rhythm, the longest being about 3.5 seconds. The patient had an ERCP today and his hypotens ion has been improving since; he is no longer on any vasoactive infusions. The patient remai ns intubated and sedated and is unable to provide history. Past Medical History: Diagnosis Date COPD (chronic obstructive pulmonary disease) (HCC) GI bleed 2013 esophageal ulcer s/p clipping 2013 HTN (hypertension) Normocytic anemia Hgb around 11 in 2013 Prediabetes SVT (supraventricular tachycardia) (HCC) unclear hx. "Possible SVT" per chart in 2012. Past Surgical History Procedure Laterality Date Treatment of fracture of lower leg 2003 Right knee surgery knee cap surgery Ankle surgery left ankle crushed in accident Back surgery 1980 Prior to Admission Medications Prescriptions LORazepam 1 mg oral tablet Sig: Take 1-2 mg by mouth once daily at bedtime. Indications: Insomnia dilTIAZem CD 24 hour release 240 mg oral capsule,extended release 24hr fluticasone-salmeterol 100-50 mcg/dose inhalation blister with device Sig: Inhale 1 puff as needed. furosemide 20 mg oral tablet ipratropium-albuterol 0.5 mg-3 mg(2.5 mg base)/3 mL inhalation solution for nebulization Sig: Inhale 3 mL every four hours as needed for dyspnea/SOB. lisinopril 20 mg oral tablet loratadine (CLARITIN LIQUI-GEL) 10 mg oral capsule Sig: Take by mouth. omeprazole 40 mg oral capsule,delayed release(DR/EC) pravastatin 10 mg oral tablet Facility-Administered Medications: None Current Medications: Current Facility-Administered Medications Medication Dose Route Frequency Provider Last Rate Last Dose acetaminophen (TYLENOL) tablet 650 mg 650 mg feeding tube TID Camilo Arreguin MD 650 m g at 06/26/17 1211 atropine injection chlorhexidine (PERIDEX) mouthwash 15 mL 15 mL oral Q6H Dianna Dodson MD 15 mL at 11/05 1416 dextrose 50 % in water IV 25 mL 25 mL intravenous PRN Dianna Dodson MD enoxaparin (LOVENOX) injection 40 mg 40 mg subcutaneous QPM Dianna Dodson MD glucagon (GLUCAGEN) injection 1 mg 1 mg intramuscular PRN Dianna Dodson MD glucose chewable tablet 16 g 16 g oral PRN Dianna Dodson MD insulin lispro (HUMALOG) injection subcutaneous QID Dianna Dodson MD 2 Units at 11/05 1831 ipratropium-albuterol (DUO-NEB) nebulizer solution 3 mL 3 mL inhalation Q6H Dianna Hernández i, MD 3 mL at 06/26/17 1215 menthol-zinc oxide (CALAZIME) topical paste 0.2%-16.5% topical QID PRN Meron Hunter norepinephrine (LEVOPHED) 8mg/250 mL (0.032 mg/mL) IV infusion (ADC) 0.02-0.2 mcg/kg/m in intravenous CONTINUOUS Dianna Dodson MD 3.24 mL/hr at 06/26/171909 0.02 mcg/kg/min at 11/05 [START ON 06/27/2017] omeprazole (PRILOSEC) capsule 40 mg 40 mg oral BEFORE BREAKFAST So bernie Dodson MD piperacillin-tazobactam (ZOSYN) 3.375 g in NaCl 0.9 % 50 mL IV (ADD-vantage) 3.375 g i ntravenous Q8H Dianna Dodson MD 3.375 g at 06/26/17 1501 propofol (DIPRIVAN) injection Allergies Allergen Reactions Aromatic Dyspnea Budesonide-Formoterol Dyspnea "I can't breathe when I use it." Fluticasone-Salmeterol Dyspnea "I can't breathe when I use it." Eucalyptus Dyspnea Fluticasone Dyspnea Hydrochlorothiazide Rash Social History Social History Marital status: Spouse [...] Social History Narrative No narrative on file Review of Systems: Not obtainable Physical Exam: Last Vitals: BP 101/67 | Pulse 63 | Temp 36.2 C (97.2 F) | RR 24 | Ht 1.753 m (5' 9") | Wt 86.5 kg (190 lb 11.2 oz) | SpO2 96% | BMI 28.16 kg/(m^2) 24 hour Vitals min/max: Systolic (24hrs), Av , Min:71 , Max:101 Diastolic (24hrs), Av, Min:55, Max:67 Pulse Min: 40 Max: 152 Temp Min: 35.9 C (96.6 F) Max: 36.4 C (97.5 F) Resp Min: 17 Max: 24 SpO2 Min: 88 % Max: 100 % General: intubated sedated HEENT: Normocephalic, atraumatic. ETT in place Neck: no LAD or swelling, cannot appreciate JVP Chest: No chest wall deformities or tenderness Lungs: clear with ventillator sounds Heart: Normal S1 and S2, normal rate, regular rhythm; no rubs, gallops or murmurs Abdomen: soft Skin: warm, well perfused with no visible rashes Extremities: no edema, no cyanosis and no gross asymmetry of limbs. Neuro: Grossly intact with normal orientation and mental status. Peripheral pulses: 2+ radial, 2+ dorsalis pedis pulses bilaterally Labs: Recent Labs 06/26/17 0855 06/26/17 0930 06/26/17 1539 06/26/17 1821 NA 139 141 140 -- K 3.3* 3.4 4.7 -- CL -- 110* 110* -- BICARB -- 22 24 -- BUN -- 19 19 -- CR -- 0.90 0.85 -- GLU -- 187* 195* 207* CA -- 7.0* 7.4* -- MG -- 1.8 -- -- Recent Labs 06/26/17 0939 06/26/17 1539 WBC 18.47* 14.41* HB 12.3* 12.4* HCT 37.7* 37.8* PLT 143* 127* NEUTROPERC 96.5* -- LYMPHPERC 1.8* -- MONOPERC 1.7* -- BASOPERC 0.0 -- EOSPERC 0.0* -- No results found for: NTPROBNP Lab Results Component Value Date TROPONIN 0.25 06/26/2017 TROPONIN 0.33 06/26/2017 Lab Results Component Value Date INRPT 1.34 (H) 06/26/2017 ECG: on arrival the patient is in SR with 1st degree AVB and RBBB. The second ECG from afternoon shows Sinus or ectopic atrial bradycardia with RBBB. The most recent ECG shows J unctional rhythm with RBBB Assessment: Lilian Hurst is a 82 y.o. male presenting with paroxysmal SVT and junctional bradycard ia in the setting of septic shock due to cholangitis. He has a history of paroxysmal SVT althougth specifics on this are not known. From the avai lable telemetry strips this does not appear to be due to sinus tachycardia, atrial fibrillat ion or atrial flutter. It may be a due to a reentrant mechanism such as AVNRT. This could marcial ve been triggered by a catecholamine excess related to sepsis and albuterol treatment he rec eived prior to transfer. The bradycardia appears to be due to sinus node failure, which may have been precipitated b y esmolol in combination to long acting diltiazem which he takes at home. He certainly has s ome degree of underlying conduction system disease at baseline with 1st degree AVB and a rig ht bundle branch block. He has had intermittent brief pauses as well however at this point t here is no clear indication for a temporary or permanent pacemaker. It seems unlikely that the brief episode of junctional rhythm today was the direct cause of his hypotension given that he was hypotensive prior to this, and has been in a sustained ju nctional bradycardia for several hours now with normal blood pressure. Recommendations: -Continue treating sepsis and underlying causes -Continue telemetry monitoring -Cautious use of beta blockers if SVT returns (esmolol is a reasonable choice, at low dose, or metoprolol tartrate) but would avoid beta blockers while bradycardic Brian Martino MD [employer] [facility] Pager [phone] Associated attestation - Franko Garcia MD - 06/27/2017 10:45 AM PSTElectrophysiolog y Attending I have seen and examined Mr. Hurst and discussed the patient's management with the resident and/or fellow. I reviewed the housestaff note above and agree with the documented findings and plan of care. Would recommend continued treatment of underlying disease, and would use beta blockers cautiously if further SVT appears. Franko Garcia M.D. Director, Electrophysiology [employer] [place] [id number] Cassy Patricio MD - 06/26/2017 9:21 AM PST Gastroenterology Initial Consult Note 06/26/2017 Reason for Consult: concern for cholangitis Referring Team/Attending: ICU IMPRESSION 82 year-old male with a past medical history significant for HTN, COPD, SVT, esophageal ulc er, admitted to the MICU with acute hypoxemic respiratory failure and septic shock. Pt prese nts with abdominal pain, fever, leukocytosis, elevated LFTs, and ultrasound findings of bili nikos dilation consistent with likely cholangitis. Initially hypotensive and tachycardic upon arrival, but now hemodynamically stable off esmolol and norepinephrine drips, therefor emerg ent biliary decompression is not necessary. Will first review outside imaging to determine i f repeat/further imaging is necessary here, but will plan for likely EUS/ERCP within ~24 nando rs. RECOMMENDATIONS - Continue Zosyn - f/u blood cultures from OSH - Plan for likely EUS/ERCP within ~24 hours Thank you for this consult. We will continue to follow with you. This plan was discussed and formulated with the gastroenterology attending of record, Dr. Kely yan MD, who agrees with the above assessment and recommendations. Cassy Patricio MD Internal Medicine PGY2 Pager #[phone] HISTORY OF PRESENT ILLNESS Lilian Hurst is an 82 year-old male with a past medical history significant for HTN, C OPD, SVT, esophageal ulcer, admitted to the MICU with acute hypoxemic respiratory failure an d septic shock 2/2 likely cholangitis. History limited as patient is currently intubated. Per OSH records, pt presented with compl aints of ~4 hours of epigastric pain. Pt brought in by EMS and found to be febrile to 102F a nd hypoxemic to ~87% on RA, with otherwise normal vitals. Lab workup revealed borderline radha kocytosis (10.8) with left shift, transaminitis with AST 315, ALT 259, AP 221, Tbili 3.1. UA bland and CXR without clear consolidation. RUQ ultrasound showed gallbladder sludge with di stended gallbladder and wall thickening, positive sonographic Keita's sign, dilated biliary tree with poorly visualized hypoechoic structure in the distal common bile duct. Pt was giv en one dose of Unasyn for sepsis with presumed GI source, duonebs and solumedrol for hypoxem ic respiratory failure. Over course of ED stay, pt had increasing respiratory distress requi ring initiation of BiPap and ultimately intubation prior to transfer to [facility]. In the MICU: On arrival, pt afebrile, tachycardic to 150s, hypotensive to 70s/50s, intubated. Central li ne and arterial line placed. Given 1.5 L LR and started on Zosyn. Started on esmolol drip fo r SVT with improvement in HR to 80s. Started on NE drip for hypotension with improvement in BPs to normal range. GI Relevant PMHx/Problem List/prior endoscopy Esophagogastroduodenoscopy 08/10/2013 Findings: 1. Esophagus: There was an ulcer with non bleeding visible blood vessel at the distal esoph piper, just above the esophagogastric junction. The ulcer was injected with epinephrine 1:100 00 for 2 cc. The ulcer was treated with endoclips x 2. The rest of the esophageal mucosa was normal. The esophagogastric junction was at 40 cm from incisors. 2. Stomach: There was a large blood clot in the gastric fundus. The gastric mucosa was coat ed with black liquid. The visualized gastric mucosa was normal. No ulcer in the antrum or lo wer gastric body. There was a 4-cm hiatal hernia seen. 3. Duodenum: Normal duodenal mucosa seen in the first and second part of the duodenum. Impression: An esophageal ulcer with NBVV Status post epinephrine injection Status post treated with endoclipx2 A 4-cm hiatal hernia PAST MEDICAL HISTORY Past Medical History: Diagnosis Date COPD (chronic obstructive pulmonary disease) (HCC) GI bleed 2013 esophageal ulcer s/p clipping 2013 HTN (hypertension) Normocytic anemia Hgb around 11 in 2013 Prediabetes SVT (supraventricular tachycardia) (HCC) unclear hx. "Possible SVT" per chart in 2012. FAMILY HISTORY Unable to verify due to patient status SOCIAL HISTORY Unable to verify due to patient status Social History Social History Marital status: Spouse [...] Social History Narrative No narrative on file OUTPATIENT MEDICATIONS: Current Facility-Administered Medications Medication Dose Route Frequency Provider Last Rate Last Dose esmolol (BREVIBLOC) 2500 mg/250 mL (10 mg/mL) in NS IV infusion (RTU) 50-200 mcg/kg/mi n (Order-Specific) intravenous CONTINUOUS Camilo Arreguin MD esmolol (BREVIBLOC) IV infusion magnesium sulfate in water IV (RTU) 2 g 2 g intravenous ONCE Camilo Arreguin MD menthol-zinc oxide (CALAZIME) topical paste 0.2%-16.5% topical QID PRN Meron Hunter norepinephrine (LEVOPHED) 8mg/250 mL (0.032 mg/mL) IV infusion (RTU) 0.02-0.2 mcg/kg/m in (Order-Specific) intravenous CONTINUOUS Camilo Arreguin MD piperacillin-tazobactam (ZOSYN) 3.375 g in NaCl 0.9 % 50 mL IV (ADD-vantage) 3.375 g i ntravenous Q8H Dianna Dodson MD piperacillin-tazobactam (ZOSYN) IV 4.5 g 4.5 g intravenous ONCE Dianna Dodson MD potassium chloride IV (central line) 40 mEq 40 mEq intravenous ONCE Camilo Arreguin MD propofol (DIPRIVAN) injection INPATIENT MEDICATIONS Current Facility-Administered Medications Medication Dose Route Frequency esmolol (BREVIBLOC) 2500 mg/250 mL (10 mg/mL) in NS IV infusion (RTU) 50-200 mcg/kg/mi n (Order-Specific) intravenous CONTINUOUS esmolol (BREVIBLOC) IV infusion magnesium sulfate in water IV (RTU) 2 g 2 g intravenous ONCE menthol-zinc oxide (CALAZIME) topical paste 0.2%-16.5% topical QID PRN norepinephrine (LEVOPHED) 8mg/250 mL (0.032 mg/mL) IV infusion (RTU) 0.02-0.2 mcg/kg/m in (Order-Specific) intravenous CONTINUOUS piperacillin-tazobactam (ZOSYN) 3.375 g in NaCl 0.9 % 50 mL IV (ADD-vantage) 3.375 g i ntravenous Q8H piperacillin-tazobactam (ZOSYN) IV 4.5 g 4.5 g intravenous ONCE potassium chloride IV (central line) 40 mEq 40 mEq intravenous ONCE propofol (DIPRIVAN) injection REVIEW OF SYSTEMS A complete 11-point ROS was performed and is negative other than that stated in the HPI. ALLERGIES: Allergies not on file PHYSICAL EXAM BP 73/62 | Pulse 152 | RR 18 | SpO2 100%: Systolic (24hrs), Av , Min:71 , Max:73 / Soy stolic (24hrs), Av, Min:55, Max:62 Pulse Av Min: 139 Max: 152 No Data Recorded Resp Av.3 Min: 18 Max: 19 SpO2 Av.3 % Min: 88 % Max: 100 % Gen: elderly male, lying in bed, intubated, off sedation but not responsive HEENT: NCAT, MMM, sclera anicteric CV: RRR, nl s1 and s2 Lungs: CTAB anterior haney Abd: soft, normoactive bs, no grimace to deep palpation Ext: WWP, no peripheral edema Skin: no rashes or skin lesions apparent LABS CBC with diff last 72 hours (or 3 results) Recent Labs 06/26/17 0939 WBC 18.47* HB 12.3* HCT 37.7* PLT 143* NEUTROPERC 96.5* LYMPHPERC 1.8* MONOPERC 1.7* BASOPERC 0.0 EOSPERC 0.0* Recent Labs 06/26/17 0855 06/26/17 0930 NA 139 141 K 3.3* 3.4 CL -- 110* BICARB -- 22 BUN -- 19 CR -- 0.90 GLU -- 187* CA -- 7.0* AST -- 171* ALT -- 204* AP -- 174* TBILI -- 4.1* TP -- 5.4* ALB -- 2.9* ANIONGAP -- 9 ANIONALBCOR -- 11 lactate 3.0 IMAGING Ultrasound: Limited Abdomen 06/26/2017 FINDINGS: Liver: Increased size, echogenic parenchyma, normal shape and contour. No definite focal lesion Portal veins: Patent with normal flow direction Gallbladder: Distended. There is intraluminal sludge. No definite stones identified. Increased wall thic kness: 4 mm. Sonographic Keita sign: positive Bile ducts: Prominent intra-axial hepatic bile ducts with intrahepatic ducts measuring up to approximat mirella 4 mm in the common bile duct measuring up to approximatley 1.3 cm in the region of the p ancreatic head. There is somewhat ill-defined hypoechoic material in the distal common bile duct in the region of the pancreatic head measuring approximatley 1.7 x 1.2 x 0.9 cm. IMPRESSION: 1. Gallbladder sludge with distended gallbladder, abnormal gallbladder wall thickening, and positive sonographic Keita's sign are consistent with acute cholecystitis in the approrpri ate clinical setting 2. Dilated biliary tree as described above with somewhat poorly visualized hypoechoic struc ture centered in the distal common bile duct and intrapancreatic segment. Considerations laura octavio include obstructing distal common duct sludge ball versus mass. Consider MRCP and/or ERCP for further evaluation 3. Hepatic steatosis Associated attestation - Paulette Mckenzie MD - 06/27/2017 3:48 PM PST Attending Attestation: I personally interviewed the patient, performed the relevant elements of the physical exami nation, and formulated the assessment and plan with Dr. Patricio on 06/27/17. See Dr. Tasha barrera's note for further details. Paulette Mckenzie MD Investigator Fraudinformation security director Department of Gastroenterology [facility] DEPARTMENT: GI - [phone] Place of Service: [id number] - [facility] CSN: [id number] Suggested Modifiers: GC - Resident Involved Suggested Level of Care: [id number] (<15 minutes) documented in this encounter Miscellaneous Notes Plan of Care - Beverly Mathias RN - 06/30/2017 2:27 PM PSTHome meds, follow-up and pos t-surgical care reviewed with patient and family. Patient discharged home with daughter by donal ar. Discharge Nurse: Beverly Mathias RN Date: 06/30/2017 Discharge Time: 2:27 PM andoff - Ira Decker RN - 06/29/2017 9:50 PM PSTNursing Handoff Patient Daily Goal: "I'm going to shave today" (06/29/17 0808) Patient Specific Preferences: none specified at this time (06/28/17 1630) [facility] IP NURSE HANDOFF: [facility] hospital course events: Grant is a 82 y.o. man admitted to the [facility] for Klebsiella oxytoca septic shock likely secondary to acute cholangitis. 06/26: Tx to 7A MICU, ERCP done, biliary stent placed, pressor needs, SVT --> junctional rhyt hm, inocente, and pauses (cards consulted) 06/27: extubated to 2 liters nasal canula. NSR. Tx to 5C SAFETY Patient/Family Target: Aki will maintain hemodynamic stability Progress to Target: Improving As evidenced by: - VSS - Maintained oxygen saturations, 1L at rest, 2L with activity. Tried to wean off but 89 sp0 2 at rest and low 80s with activity. - Per MD continue to monitor and notify immediately with any other changes in VS or mental status COMFORT/ANXIETY/BEHAVIOR Patient/Family Target: Aki will report pain at a tolerable level of <3 Progress to Target: Improving As evidenced by: - Aki reports that he has abdominal discomfort between 2-710 but he states he doesn't classify it as pain just "uncomfortable" this is made tolerable with Oxycodone 5 mg q 4 hour s, If he goes longer than 4 hours he feels his pain becomes much worse (/10) and is harder to control again - Aki reports this discomfort becomes worse after eating - Abdomen rounded and more firm and tender in the upper medial - Feels constipated- stool softeners administered, MiraLax given. HYGIENE/INFECTION Patient/Family Target: Aki will exhibit no S/S of infection Progress to Target: Improving As evidenced by: - Admitted with S/S normal at this time and pt appears moderately stable, afebrile and no rmotensive - Started on Augmentin - Concern for aspiration, monitor for signs of PNA -IS teaching and he was able to demonstrate proper use getting it up to 1000 while keeping the meter in the good zone. RESTORATIVE MEASURES/SELF-MANAGEMENT Patient/Family Target: Aki will display a decrease in incontinence Progress to Target: Improving As evidenced by: - Aki has been using his urinal but if it is not in reach he can not get to it in time and will become incontinent-no incontinence this shift. HEALTH PROMOTION Patient/Family Target: Aki will get at least 6 hours of sleep overnight and report feeling well rested in the AM Progress to Target: Improving As evidenced by: - Care clustered overnight to help promote rest - Pain managed with q 4 hours Oxycodone 5 mg - appeared to sleep for 6-8 hours of shift and awoke stating he feels rested. NURSING ASSESSMENT & RECOMMENDATIONS FORWARD Nursing Assessment of Patient Stability Risk: Moderately stable Recommendations Forward: - Continue to closely monitor VS. Per MD, notify night treatment t eam immediately for acute changes in VS due to high risk of reoccurring cholangitis - Monitor for incontinence and offer toileting when in the room - SOB, ambulate in halls every 2 hours while waking -Attempt weaning off 02 tonight -Encourage incentive spirometer Barriers to discharge: Likely DC 06/30, possibly with home 02 if weaning unsuccessful tonigh t. andoff - Beverly Mathias RN - 06/29/2017 5:32 PM PSTNursing Handoff Patient Daily Goal: "I'm going to shave today" (06/29/17 0808) Patient Specific Preferences: none specified at this time (06/28/17 1630) [facility] IP NURSE HANDOFF: [facility] hospital course events: Grant is a 82 y.o. man admitted to the [facility] for septic shock likely secondary to acute cholangitis. 06/26: Tx to 7A MICU, ERCP done, pressor needs, SVT --> junctional rhythm, inocente, and pauses (cards consulted) 06/27: extubated to 2 liters nasal canula. NSR. SAFETY Patient/Family Target: Aki will maintain hemodynamic stability Progress to Target: Improving As evidenced by: - Per MD note, Aki was admitted to [facility] with septic shock and severe hypotension. VSS - Maintained oxygen saturations, 1L at rest, 2L with activity. Tried to wean off today but 89 sp02 at rest and low 80s with activity. - Per MD continue to monitor and notify immediately with any other changes in VS or mental status COMFORT/ANXIETY/BEHAVIOR Patient/Family Target: Aki will report pain at a tolerable level of <3 Progress to Target: Improving As evidenced by: - Aki reports that he has abdominal discomfort, he states he doesn't classify it as wilder n just "uncomfortable" this is made tolerable with Oxycodone 5 mg q 4-5 hours - Aki reports this discomfort becomes worse after eating - Abdomen rounded and more firm and tender in the upper medial - Bowel sounds hypoactive but passing flatus. HYGIENE/INFECTION Patient/Family Target: Aki will exhibit no S/S of infection Aki would like a Shower Progress to Target: Improving As evidenced by: - Admitted with S/S normal at this time and pt appears moderately stable, afebrile and no rmotensive - Continued with Zosyn - Concern for aspiration, monitor for signs of PNA -Aki requested a shower this shift and was assisted with getting cleaned up in the shower , needed a SBA during shower. RESTORATIVE MEASURES/SELF-MANAGEMENT Patient/Family Target: Aki will display a decrease in incontinence Progress to Target: Improving As evidenced by: - Aki has been using his urinal but if it is not in reach he can not get to it in time and will become incontinent-no incontinence this shift. HEALTH PROMOTION Patient/Family Target: Aki will get at least 6 hours of sleep overnight and report feeling well rested in the AM Progress to Target: Improving As evidenced by: - Care clustered overnight to help promote rest - Pain managed NURSING ASSESSMENT & RECOMMENDATIONS FORWARD Nursing Assessment of Patient Stability Risk: Moderately stable Recommendations Forward: - Continue to closely monitor VS. Per MD, notify night treatment t eam immediately for acute changes in VS due to high risk of reoccurring cholangitis - Monitor for incontinence and offer toileting when in the room - SOB, ambulate in halls every 2 hours while waking -Attempt weaning off 02 tonight -Encourage incentive spirometer Barriers to discharge: Likely DC 06/30, possibly with home 02 if weaning unsuccessful lulu gu lan of Care - Julia Fairbanks, PT - 06/29/2017 4:38 PM PSTFormatting of this note might be different from t sarath original. Physical Therapy Evaluation [phone] LILIAN HURST Date of : 1935 Start of care: 06/29/2017 Attending Practitioner: Vic Petty MD Primary/Referral Diagnosis/ICD-9: K80.50 Choledocholithiasis R06.00 Dyspnea, unspecified type Insurance: Payor: [facility] MEDICARE / Plan: [facility] MEDICARE HMO / Product Type: Medicare / Service period from:06/29/2017 to 09/27/2017 Time in: 1445 Time out: 1525 Patient was seen for a total of 40 minutes of direct one on one skilled physical therapy wh ich included initial evaluation and 25 minutes of therapeutic activity Patient seen on 5C with PT today Hospital Day: 3 Others present during session other than Physical Therapist and patient: None Consulted/Discussed patient's care with: RN Brief Hospital Course: Pt is an 82 y.o. man admitted to the MICU for septic shock likely se condary to acute cholangitis. 06/26: Tx to 7A MICU, ERCP done, pressor needs, SVT --> junctional rhythm, inocente, and pauses (cards consulted) 06/27: extubated to 2 liters nasal canula. NSR. SAFETY Relevant Precautions: Desaturation on O2, mild fall risk due to deconditioning Indication for PT Evaluation: Decline in functional mobility Past Medical History: Diagnosis Date COPD (chronic obstructive pulmonary disease) (HCC) GI bleed 2013 HTN (hypertension) Normocytic anemia Prediabetes SVT (supraventricular tachycardia) (HCC) Past Surgical History: Procedure Laterality Date ANKLE SURGERY BACK SURGERY 1981 RIGHT KNEE SURGERY TREATMENT OF FRACTURE OF LOWER LEG Living Environment: Patient lives alone in a one story house with 0 steps to enter. Bathroom Set-up: walk in shower; shower chair, no grab bars Prior Level of Function: Mobility: Independent Equipment at home: None Patient / Family Goal: To go home Communication/Barriers: Georgian Subjective: Pt agreeable to working with PT today; "I really want to get up and walk around more" Pain: Vital signs: On 1L NC at beginning of session at 96% Trial of RA pt dropping to 82% after activity Put back on 2L NC and returned to 94% Cognitive Screen Level of alertness: Intact Orientation: x 4 Quality of responses: appropriate Command following: multistep Judgment / safety awareness: Intact Physical Assessment ROM and Posture: bilateral upper extremities and bilateral lower extremities within funct ional limits Strength: bilateral upper extremities and bilateral lower extremities within functional li mits Edema: None noted Skin Integrity: intact Neurological Function Sensation: Pt reporting intact sensation Muscle Tone: Not tested Proprioception: Not tested Gross Motor: Fair Fine Motor: Not tested Balance: Sitting static: Independent Sitting dynamic: Independent Standing static: Supervision with no assistive device Standing dynamic: supervision with no assistive device Mobility & Transfers: Supine to/from sit: Independent Sit to/from stand: stand by assist Scoot: Independent Stand pivot transfer: Not tested Gait: Pt ambulating in halls x 400 ft with stand by assist to supervision for dynamic gait activities specifically turning head, marching, with 360 deg turns. Mild unsteadiness but no loss of balance Outcome Measure: [facility] BASIC MOBILITY Difficulty turning over in bed 4 - None - Modified Independent/Independent Difficulty sitting/standing from chair w/ arms 4 - None - Modified Independent/ Independent Difficulty moving from supine to sitting on edge of bed 4 - None - Modified Independent/Ind ependent Help needed moving from /to chair/wheelchair 4 - None - Modified Independent/Independent Help needed walking in hospital room 3 - A Little - Minimal/Contact Guard assist/Supervisio n Help needed climbing 3-5 steps w/railing 3 - A Little - Minimal/Contact Guard Assist/Superv ision [facility] Basic Mobility Total Score 22 Interpretation of [facility] Short Form - Basic Mobility: CMS Modifier [...] underestimate Treatment and education provided this date: See above; pt educated on importance of out of bed activities and to increased frequency walking up in the halls with assistance from RN at least 3x/day Ended session: Patient left sitting up in the chair with call monique within reach and RN shelby hale. Plan for next visit: Gait, curb step, balance activities, pacing/RPE/cardiopulmonary educat ion for COPD ASSESSMENT: Lilian Hurst is a 82 year old admitted on 06/26/2017 for above mentioned soy gnoses. Pt currently below baseline status with decreased activity tolerance and poor endura nce now with reliance on supplemental oxygen for assistance. Demonstrating mild unsteadiness with higher level dynamic gait activities and would benefit from further skilled PT service s to address the above impairments and return to prior level of function safe to DC home skyla ne This patient has good rehabilitation potential to achieve stated goals (see Care Plan for goals) and requires continued rehabilitation services, given the patient's medical condition is such that the skills of a therapist are required for monitoring and adjustment of interv entions,. Personal factors/Comorbidities; Moderate - 1-2 personal factors. Behavior: None Learning Factors: None. Social Issues: Medical conditions and Multiple hospitalizations Medical Conditions Impacting Care: Multiple co-morbidities, Geriatric, Cardiac, Physically deconditioned and Orthopedic Body Systems Elements: Moderate - 3 or more elements Body structures & functions: Cardiopulmonary status, Balance and Endurance Activity limitations: Impaired gait, Difficulty with stairs and Difficulty with activities of daily living Participation restrictions: Work related impairments, Driving and Community activities. Clinical Presentation: Moderate - Evolving: Vital signs response Clinical decision making: Moderate Complexity: Multiple problems requiring prioritizing int erventions Complexity: moderate Aki's knowledge of disease process: Good . The patient requires services that can be safely and effectively performed only by a quali fied therapist to address the aforementioned and highlighted problems and goals. Goals discussed and agreed upon with Lilian. See Care Plan for goals. 1. Pt will be independent with HEP upon DC 2. Pt will be able to ambulate x 500 ft without desaturation on RA and no noticeable shortn ess of breath modified independent 3. Pt will be able to perform one curb step modified independent 4. Pt will score higher than fall risk cut off score on DGI for decreased fall risk ACTIVITY PLAN for Nursing Partners: *Nursing to re-assess per shift as needed.* - Lights on and curtains open during day hours. - Up to chair for meals or 3x/day with 1 person assist - Routine short distance ambulation in halls 3-5x/day with 1 person assist DISCHARGE: RECOMMENDATIONS: Home with assist PRN;Continued PT at next level of care Consulted with: SARI re: recommendations PLAN: Pt education/assisted living care manager training, HEP, transfer training, gait training, stairs/curb step training, DME/DC planning Frequency: 3x/wk Duration: 1 week The above plan of care and goals were developed and reviewed with the patient. Should this patient discharge from the hospital prior to the next physical therapy treatmen t, this note shall serve as the discharge summary. lan of Care - Beaulieu Kiah, RD - 06/29/2017 11:04 AM PSTProblem: Nutrition Interventions Intervention: Food and nutrient distribution type or amount Food/Nutrition history: Pt currently on regular diet with thin liquids. Pt does not remembe r talking with me yesterday. Reports his appetite has not been great, has not been very inte rested in food because eating irritates his gallbladder. Says he finished 50% of pork and ma shed potatoes and gravy a few days ago, currently eating breakfast ([place] muffin, scramble d egg, slice of ham). Per flowsheet pt had soup + crackers, + 75% meal on 06/27, NPO 06/28. Will try to eat as much as he can before it is too painful. Says his daughter wants to bring him fruit but he declined d/t pain. Does not like yogurt, wants to switch to Culturelle. ? Nutrition diagnosis: Potential for inadequate oral intake related to increased protein need s as evidenced by lack of interest in food and recent NPO and CL status. Goal of nutrition therapy: promote adequate po intake to meet estimated needs, promote weig ht maintenance, promote preservation of muscle mass ? Recommendations: - Continue on regular diet. Texture/consistency per API PRODUCT MANAGER. - Continue to encourage po intake to meet needs - Continue to order lower fat options prn - Continue to order meals and snacks throughout the day, eating protein first - Add Vitamin D3 @ 50,000 units per week for 6-8 weeks. Recheck Vit D 25 hydroxy, if levels are >25 ng, switch to Vitamin D3 @ 2000 units per day - Switch to Culturelle probiotic Intervention: Nutrition Education Discussed lower fat foods to help with pain during eating, avoiding fried foods, staying aw ay from foods that pt notices cause more pain. Discussed tips for preventing early satiety ( smaller frequent meals, eating protein foods first). Expect fair compliance, will follow up. Following, Sachi Greer M.S. Medical Health Researcher Pgr#[phone] Kiah Beaulieu, MPH, RD, CNSC, LD Pager: [phone] For details, please see dietitian note from 06/28. andoff - Ira Decker RN - 06/29/2017 2:48 AM PSTNcas timmons Patient Daily Goal: "I need my pain well controlled tonight" (06/28/171999) Patient Specific Preferences: none specified at this time (06/28/17 1630) [facility] IP NURSE HANDOFF: [facility] hospital course events: Grant is a 82 y.o. man admitted to the [facility] for septic shock likely secondary to acute cholangitis. 2: Tx to 7A MICU, ERCP done, pressor needs, SVT --> junctional rhythm, inocente, and pauses (cards consulted) 06/27: extubated to 2 liters nasal canula. NSR. SAFETY Patient/Family Target: Aki will maintain hemodynamic stability Progress to Target: Improving As evidenced by: - Per MD note, Aki was admitted to [facility] with septic shock and severe hypotension. VSS - Maintained oxygen saturations, 2L at rest and 3L with activity and after ambulation - Per MD continue to monitor and notify immediately with any other changes in VS or mental status COMFORT/ANXIETY/BEHAVIOR Patient/Family Target: Aki will report pain at a tolerable level of <3 Progress to Target: Improving As evidenced by: - Aki reports that he has abdominal discomfort, he states he doesn't classify it as wilder n just "uncomfortable" this is made tolerable with Oxycodone 5 mg q 4-5 hours and Simethicon e - Aki reports this discomfort becomes worse after eating - Abdomen rounded and more firm and tender in the upper medial - Bowel sounds hypoactive but passing flatus HYGIENE/INFECTION Patient/Family Target: Aki will exhibit no S/S of infection Aki would like a Shower Progress to Target: Improving As evidenced by: - Admitted with S/S normal at this time and pt appears moderately stable, afebrile and no rmotensive - Continued with Zosyn - Concern for aspiration, monitor for signs of PNA -Aki requested a shower this shift and was assisted with getting cleaned up in the shower , needed a SBA during shower. RESTORATIVE MEASURES/SELF-MANAGEMENT Patient/Family Target: Aki will display a decrease in incontinence Progress to Target: Improving As evidenced by: - Aki has been using his urinal but if it is not in reach he can not get to it in time and will become incontinent-no incontinence this shift. HEALTH PROMOTION Patient/Family Target: Aki will get at least 6 hours of sleep overnight and report feeling well rested in the AM Progress to Target: Improving As evidenced by: - Care clustered overnight to help promote rest - Pain managed NURSING ASSESSMENT & RECOMMENDATIONS FORWARD Nursing Assessment of Patient Stability Risk: Moderately stable Recommendations Forward: - Continue to closely monitor VS. Per MD, notify night treatment t eam immediately for acute changes in VS due to high risk of reoccurring cholangitis - Restart antihypertensives - Monitor for incontinence and offer toileting when in the room - 1 PA with ambulation, becomes SOB with walking at times, would recommend keeping oxygen o n with ambulation and potentially increasing - Aki has some concerns about a long standing nasal/sinus congestion with swelling lower eyes that he states he has been experiencing for "longer than a couple of months now", he wo uld like to speak to a physician while he is here regarding this. Barriers to discharge: - Recent ERCP procedure - IV antibiotics -Possible consult at [facility] [place] for right eyelid problem. andoff - Nyla Cano RN - 06/28/2017 3:13 PM PSTNursing Handoff Patient Daily Goal: To breath better and be able to sleep tonight (06/27/171955) [facility] IP NURSE HANDOFF: [facility] hospital course events: Grant is a 82 y.o. man admitted to the [facility] for septic shock likely secondary to acute cholangitis. 2: Tx to 7A MICU, ERCP done, pressor needs, SVT --> junctional rhythm, inocente, and pauses (cards consulted) 06/27: extubated to 2 liters nasal canula. NSR. SAFETY Patient/Family Target: Aki will maintain hemodynamic stability Progress to Target: Improving As evidenced by: - Per MD note, Aki was admitted to [facility] with septic shock and severe hypotension. Since transfer to , VS normal with exception of increased RR - RR elevated with a report of worsening SOB, MD notified and came to bedside to assess. - Concern for aspiration PNA, speech saw this am, pt cleared for regular diet, make sure pt sitting upright to eat. - Maintained oxygen saturations, 2L at rest and 3L with activity and after ambulation - Per MD continue to monitor and notify immediately with any other changes in VS or mental status COMFORT/ANXIETY/BEHAVIOR Patient/Family Target: Aki will report decrease in discomfort Progress to Target: No Change As evidenced by: - Aki had a rough morning with pain, spoke with MD's, started Oxycodone po (which has h elped) and has IV Dilaudid now for BTP if severe. Also taking Tylenol, Pt is much more comfo rtable this afternoon. - Abdomen rounded and more firm upper medial. Got an order for simethecone, [employer] tech told pt they saw a lot of gas when he had his US this am 06/28/17. - Bowel sounds active, Pt had a good BM this am he states, but didn't help his pain status. HYGIENE/INFECTION Patient/Family Target: Aki will exhibit no S/S of infection Progress to Target: Improving As evidenced by: - Admitted with S/S normal at this time and pt appears moderately stable, RR increased bu t afebrile and normotensive - Continued with Zosyn - Concern for aspiration, monitor for signs of PNA RESTORATIVE MEASURES/SELF-MANAGEMENT Patient/Family Target: Aki will display a decrease in incontinence Progress to Target: No Change As evidenced by: - Condom cath not needed today, pt has been able to use urinal, is on Lasix. HEALTH PROMOTION Patient/Family Target: Aki will get at least 6 hours of sleep overnight and report feeling well rested in the AM Progress to Target: Deteriorating As evidenced by: - Aki reported feeling very unrested at the beginnig of the shift, and was in a lot of pain, improved this afternoon after extensive talking with MD's this am. - Per Aki he was unable to get consistently good sleep for long periods of time overnight due to multiple factors such as staff interruptions for care, pain, or noise - Care clustered overnight to help promote rest - Had some trouble with incontinence on nocs, none today so far. NURSING ASSESSMENT & RECOMMENDATIONS FORWARD Nursing Assessment of Patient Stability Risk: Moderately stable Recommendations Forward: - Continue to closely monitor VS. Per MD, notify night treatment t eam immediately for acute changes in VS due to high risk of reoccurring cholangitis - Restart antihypertensives - Monitor for incontinence and offer toileting when in the room - 1 PA with ambulation, becomes SOB with walking at times, would recommend keeping oxygen o n with ambulation and potentially increasing - Aki has some concerns about a long standing nasal/sinus congestion with swelling lower eyes that he states he has been experiencing for "longer than a couple of months now", he wo uld like to speak to a physician while he is here regarding this. - Had abd US today. PA looking into whether or not pt may have a [facility] consult while he 's here, R eye lower lid problem (has had previous procedures on R eye). Ok'd to place ta pe under R eye to keep lid pulled down partially to decrease amt of discharge formed. Barriers to discharge: - Recent ERCP procedure - IV antibiotics lan of Care - Kiah Beaulieu, RD - 06/28/2017 1:12 PM PSTProblem: Nutrition Interventions Intervention: Food and nutrient distribution type or amount Food/Nutrition history: Pt currently NPO. Says his appetite is usually okay, eats 2-3 meals a day, likes veggies, potatoes, sausage, and eggs. Does not report N/V/D/C at this time. UB W is around 185#, no noticeable recent unintentional weight loss. Lost 20# when he lost his 2 years ago, but wt has stabilized since. Willing to start probiotics when diet advance s. ? Nutrition diagnosis: Potential for inadequate oral intake related to increased protein need s as evidenced by current NPO and recent CL status during hospitalization. Goal of nutrition therapy: promote adequate po intake when appropriate to meet needs, promo te weight maintenance, promote preservation of muscle mass ? Recommendations: - ADAT per team - Encourage po intake when appropriate to meet needs - Add [employer] probiotic yogurt when no longer NPO- one 8oz. Container split into 3x per day - Add Vitamin D3 @ 50,000 units/wk for 6-8 weeks. Recheck Vit D 25 hydroxy, if levels are > 25 ng, switch to Vitamin D3 @ 2000 units per day - Continue to monitor ion Ca, replete prn Following, Sachi Greer M.S. Medical Health Researcher pgr#[phone] Kiah Beaulieu, MPH, RD, CNS, LD Pager: [phone] Comments: Admitting Dx: Lilian Hurst is a 82 y.o. male with COPD, essential hypertensi on, upper gastrointestinal bleed who was admitted to the MICU for septic shock / to acute cholangitis now post procedure day 3 of sphincteromy and CHD stent Diet Order: NPO PO Intake: 75-100% 2 meals (small lunch, dinner) on 06/27 BM: soft 06/27 per flowsheet UOP: 418 ml 06/27 I/O: Net +1954.1ml since admit CB-170 06/27-06/28 Meds: IV abx, Lasix, lispro Labs: elevated LFTs, Vit D25 hydroxy 8.3 (06/26), ionized Ca 1.08 (06/26) Ht: 1.753m Current wt: 86.5 kg (bed, 06/26) BMI 28.15 UBW: 185# (84.1 kg) per pt report BMI 27.4 Wt Hx: 20# wt loss 2 years ago when , wt has stabilized since per pt report Estimated Nutrition Needs (84.1kg, COPD): 9171-8563 kcals (25-30 kcal/kg), 101-126 gm prote in (1.2-1.5 gm/kg) lan of Care - Nelli Le [facility] MANAGER - 06/28/2017 10:17 AM PSTFormatting of this note might be different from bella landin. Speech Language Pathology - DYSPHAGIA Evaluation [id number] LILIAN HURST Date of : 1935 Referring/Attending Practitioner: Vic Petty MD Primary/Referral Diagnosis/ICD-9: K80.50 Choledocholithiasis R06.00 Dyspnea, unspecified type Insurance: Payor: [employer] MEDICARE / Plan: [employer] MED[employer]ARE HMO / Product Type: Medicare / Service period from:06/28/17 to:09/26/2017 (90 day period) Time in: 0940 Time out: 1000 Pt was seen for dysphagia evaluation with one on one skilled therapy. Medical Course: Patient is 82 yo M admitted 10/24/17 presenting with septic shock secondary to acute cholangitis requiring intubation 10/24-10/25. Previous Medical History: Past Medical History: Diagnosis Date COPD (chronic obstructive pulmonary disease) (HCC) GI bleed 2013 esophageal ulcer s/p clipping 2013 HTN (hypertension) Normocytic anemia Hgb around 11 in 2013 Prediabetes SVT (supraventricular tachycardia) (HCC) unclear hx. "Possible SVT" per chart in 2012. Orders received for swallow evaluation due to concern for aspiration. PLOF: Patient with history of COPD and MODEL TECHNICIAN was concerning for aspiration pneumonitis vs PNA (patient had severe vomiting). Patient reports no history of dysphagia and emphatically st ated "If I was aspiration I would know it! I would start choking which I am not doing!" curr ently NPO pending dysphagia evaluation Pt's participation during today's bedside swallow evaluation was good. Pt was positioned u pright in wheelchair. Pain was not evident or reported. Respiratory status: Stable on 2L via NC Oral Mechanism Examination: Orofacial musculature grossly symmetrical. Labial and lingual strength/rate/ROM WFL. Dentition in good repair. Vocal quality WFL. Presentations: Thin liquids x 6 oz via straw, regular x 3 crackers. Patient self administ ered trials Oral Phase: Good labial seal, bolus formation, manipulation, mastication, timely propulsio n, achieved good oral clearance. Pharyngeal Phase: Timely swallow initiation, hyolaryngeal elevation sluggish and grossly c omplete to palpation. No cough, throat clear, audible pharyngeal pooling, change in vocal q uality, or respiratory status following any PO trial. No difficulty with respiration-degluti tion coordination. Education: Focus this session to patient includes aspiration precautions. Education Outcome : Patient able to verbalize understanding. The patient has good rehabilitation potential to achieve stated goals (see Care Plan for go als) and requires continued rehabilitation services, given the patient's medical condition i s such that the skills of a therapist are required for monitoring and adjustment of interven tions, specifically dysphagia. Impressions: Patient presents with grossly functional oropharyngeal swallow demonstrating adequate safety and tolerance with thin liquids and regular solids without overt or clinical signs and symptoms aspiration. Safe to advance to regular solids and thin liquids with univ ersal aspiration precautions. Problem: API PRODUCT MANAGER Goals- Adult Goal: Dysphagia Goal Outcome: Goal met Date Met: 06/28/17 Patient will tolerated least restrictive diet without clinical S/S aspiration Swallowing - LEVEL 7: The individual's ability to eat independently is not limited by swall ow function. Swallowing would be safe and efficient for all consistencies. Compensatory stra tegies are effectively used when needed. Recommendations: DW patient's nurse Aggie and pg to Dr. Peralta REGULAR and THIN LIQUIDS as tolerated -meal set up assistance -OOB for all meals -small bites/sips -slow rate -alternate liquids and solids -d/c PO for s/sx aspiration (increased cough, decreased resp status, increased temp) DISCHARGE RECOMMENDATIONS: No further API PRODUCT MANAGER needs Plan: No indication for further API PRODUCT MANAGER therapy at this time. API PRODUCT MANAGER team signing off. Please re order as appropriate. Thank you for this consult. Nelli Le MS CCC-API PRODUCT MANAGER Speech Language Pathologist Pgr [phone] andoff - Brittney Bautista RN - 06/27/2017 10:33 PM PSTNursing Handoff Patient Daily Goal: To breath better and be able to sleep tonight (06/27/171955) [facility] IP NURSE HANDOFF: [facility] hospital course events: Grant is a 82 y.o. man admitted to the [facility] for septic shock likely secondary to acute cholangitis. 2: Tx to 7A MICU, ERCP done, pressor needs, SVT --> junctional rhythm, inocente, and pauses (cards consulted) 2: extubated to 2 liters nasal canula. NSR. SAFETY Patient/Family Target: Aki will maintain hemodynamic stability Progress to Target: Improving As evidenced by: - Per MD note, Aki was admitted to [facility] with septic shock and severe hypotension. Since transfer to , VS normal with exception of increased RR - RR elevated with a report of worsening SOB, MD notified and came to bedside to assess. - Concern for aspiration PNA, pt made NPO and chest xray completed - Maintained oxygen saturations, 2L at rest and 3L with activity and after ambulation - Per MD continue to monitor and notify immediately with any other changes in VS or mental status COMFORT/ANXIETY/BEHAVIOR Patient/Family Target: Aki will report decrease in discomfort Progress to Target: No Change As evidenced by: - Aki reports that he has abdominal discomfort, he states he doesn't classify it as wilder n just "uncomfortable" - Aki reports this discomfort became worse after eating solid foods for the first time - Abdomen rounded and more firm upper medial - Bowel sounds active HYGIENE/INFECTION Patient/Family Target: Aki will exhibit no S/S of infection Progress to Target: Improving As evidenced by: - Admitted with S/S normal at this time and pt appears moderately stable, RR increased bu t afebrile and normotensive - Continued with Zosyn - Concern for aspiration, monitor for signs of PNA RESTORATIVE MEASURES/SELF-MANAGEMENT Patient/Family Target: Aki will display a decrease in incontinence Progress to Target: No Change As evidenced by: - Aki had a arriaga catheter while he was in the ICU, since it was removed he has been ab le to urinate, however, has had moments of incontinence which is not his baseline - Overnight Aki requested an intervention to help prevent the need for bed and gown beaulieu es overnight - Condom cath placed overnight to help prevent leaking and moisture HEALTH PROMOTION Patient/Family Target: Aki will get at least 6 hours of sleep overnight and report feeling well rested in the AM Progress to Target: Deteriorating As evidenced by: - Aki reported feeling very unrested at the beginnig of the shift - Per Aki he was unable to get consistently good sleep for long periods of time overnight due to multiple factors such as staff interruptions for care, pain, or noise - Care clustered overnight to help promote rest - Condom catheter in place to help pt from waking up with incontinence NURSING ASSESSMENT & RECOMMENDATIONS FORWARD Nursing Assessment of Patient Stability Risk: Moderately stable Recommendations Forward: - Continue to closely monitor VS. Per MD, notify night treatment t eam immediately for acute changes in VS due to high risk of reoccurring cholangitis - Restart antihypertensives - Monitor for incontinence and offer toileting when in the room - 1 PA with ambulation, becomes SOB with walking at times, would recommend keeping oxygen o n with ambulation and potentially increasing - Aki has some concerns about a long standing nasal/sinus congestion with swelling lower eyes that he states he has been experiencing for "longer than a couple of months now", he wo uld like to speak to a physician while he is here regarding this. Barriers to discharge: - Recent ERCP procedure - IV antibiotics andoff - Melyssa Rivera RN - 06/27/2017 6:40 PM PSTNursing Handoff Patient Daily Goal: RN advocacy: to advance to regular diet and increase PO intake (0 06/27/17 1720) [facility] IP NURSE HANDOFF: [facility] hospital course events: Grant is a 82 y.o. man admitted to the [facility] for septic shock likely secondary to acute cholangitis. 06/26: Tx to 7A MICU, ERCP done, pressor needs, SVT --> junctional rhythm, inocente, and pauses (cards consulted) 06/27: extubated to 2 liters nasal canula. NSR. SAFETY Patient/Family Target: Aki will maintain hemodynamic stability Progress to Target: Improving As evidenced by: - Per MD note, Aki was admitted to [facility] with septic shock and severe hypotension. Since transfer to , VS normal with BP elevated (hx of hypotension) - RR elevated (25), MD notified: not concerned at this time. Continue to monitor HYGIENE/INFECTION Patient/Family Target: Aki will exhibit no S/S of infection Progress to Target: Improving As evidenced by: - Admitted with S/S normal at this time and pt appears moderately stable - Cultures in process NURSING ASSESSMENT & RECOMMENDATIONS FORWARD Nursing Assessment of Patient Stability Risk: Moderately stable Recommendations Forward: - Continue to closely monitor VS. Per MD, notify night treatment team immediately for acute changes in VS - Restart antihypertensives - Arriaga removed at 1100. Urine output was low last night (20-30 ml). Urine labs sent. Pt ur inated an unknown amount in bed this PM. Pt is incontinent of urine at this time - Connect SCD pump when it arrives - SBA. Ambulate as tolerated Barriers to discharge: - Recent ERCP procedure - IV antibiotics andoff - Lani Chicas RN - 06/27/2017 2:41 PM PSTNursing Handoff Patient Daily Goal: to use the bathroom (06/27/17 0900) [facility] IP NURSE HANDOFF: [facility] hospital course events: Grant is a 82 y.o. man admitted to the [facility] for septic shock likely secondary to acute cholangitis. 06/26: Tx to 7A MICU, ERCP done, pressor needs, SVT --> junctional rhythm, inocente, and pauses (cards consulted) 06/27: extubated to 2 liters nasal canula. NSR. NURSING ASSESSMENT & RECOMMENDATIONS FORWARD Nursing Assessment of Patient Stability Risk: Moderately stable Recommendations Forward: Monitor cardiac rhythm. Restart antihypertensives Arriaga removed at 1100 no void as of yet. Urine output low overnight (20 to 30 ml), urine l abs sent. Continue to monitor. Out of bed, ambulate as tolerated Barriers to discharge: Recent ERCP procedure IV antibiotics ransfer Note - Sherman Dodson MD - 06/27/2017 1:30 PM [facility] MEDICAL ICU - TRANSFER SUMMARY Hospital Day: 1 | ICU Day: 1 Disposition: transfer to floor ID/CC: Aki Hurst is a 82 y.o. man admitted to the MICU for septic shock secondary to acute chlangitis. 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 Given concern for septic shock (he required NE on route for SBP reportedly in 40-50s), central line and a-line were inserted, and esmolol gtt also started with good r esponse in HR to 80s. He was fluid resuscitated and started on zosyn. GI was consulted and aleena linares performed uncomplicated ERCP with sphincterotomy with several CBD stones and sludge kei bucky yesterday. No pus was found during procedure. He had 10 Fr stent placed into CHD. Pt had minimal NE requirement after arrival to MICU and essentially stayed off pressors after ERCP . BCx from 06/26 grew Klebsiella oxytoca (sensitivitie spending). Pt remains on zosyn currentl y. Of note, pt was initially intubated at OSH for increasing respiratory distress ("did not to lerate BIPAP due to nausea and vomiting), however had minimal vent requirement during MICU s toni, and was successfully extubated this morning. His CXR was not concerning for infection ( perhaps slight chance of R base infiltrate reflective of aspiration). Pt initially received duoneb scheduled q6h in the MICU while he was on the ventilator, but overall we did not feel he had a COPD exacerbation given lack of respiratory sx's prior to presentation. After extu bation, he was quickly weaned down to 2L NC. Pt's MICU stay was also notable for one episode of symptomatic bradycardia to 40s prior to ERCP that was associated with drop in BP to 70/40s. This occurred in the context of being of f esmolol for many hours. EKG showed junctional rhythm. NE was restarted at that time with r esolution of this episode. After ERCP, he continued to have intermittent junctional bradycar soy to 50s but remained asymptomatic. Cardiology was consulted and did not recommend any int ervention besides avoidance of AV blockage agents at this time. Upon further interview, pt r evealed that he has a hx of intermittent tachycardia for the last 3-4 years and takes diltia zem for that. His daughter also said that a few years ago, he had bradycardia with syncope v s near syncope; at that time there was talk of pacemaker, but he has not had any recent claude ycardia events she knows of. Follow ups: - monitor BP and restart anti-HTN as appropriate. Pt likely not a good candidate for lisino pril in setting of possible KAREN. Diltiazem likely also not a good agent given intermittent b radycardia. Follow up with cardiology regarding agent to prevent future SVT. - follow up on if records from PCP has arrived - monitor UOP - pt oliguric this AM, suspect developing possible KAREN (pre-renal vs KAREN from ATN). - follow up respiratory status, continue to wean O2 - f/u with GI - suspect pt will need cholecystectomy at some point - f/u repeat BCx, send daily BCx until clearance of bacteremia. Narrow abx as appropriate. Procedures: 2/6 - R IJ central line insertion 26 - R arterial line insertion Both of the above lines have been removed. DIANNA DODSON MD 06/27/2017, 1:49 PM Template created by KENNEDY 2017 lan of Care - Jamey Rosa [facility] - 06/27/2017 8:33 AM PSTProblem: RT Goals & Interventions Goal: Actively weaning from ventilator support Patient extubated to 3 lpm nasal cannula. Strong, productive cough. No evidence of stridor. andoff - Herlinda Mccord RN - 06/27/2017 5:03 AM PSTNursing Handoff [facility] IP NURSE HANDOFF: [facility] hospital course events: Grant is a 82 y.o. man admitted to the [facility] for septic shock likely secondary to acute cholangitis. 2/6: Tx to 7A MICU, ERCP done, pressor needs, SVT --> junctional rhythm, inocente, and pauses (cards consulted) SAFETY Patient/Family Target: No lines dislodged Progress to Target: Improving As evidenced by: All lines remain intact. Restraints remain on for patient safety, intubated, CVC, arriaga, and Arterial line in place COMFORT/ANXIETY/BEHAVIOR Patient/Family Target: Aki will meet RASS and CPOT goals Progress to Target: Improving As evidenced by: Overnight, CPOT goal not met - PRN IV dilaudid ordered and given w/ good effect, now meet ing CPOT goal of 0 to 1. Aki was restless/agitated with a RASS overnight of +1 to +2 d/t ETT, started on propofol. Tolerating well, and now meeting RASS goal of 0 to -1 on 15mcg/kg/min of propfol NURSING ASSESSMENT & RECOMMENDATIONS FORWARD Nursing Assessment of Patient Stability Risk: Moderately unstable Recommendations Forward: Monitor cardiac rhythm Anticipate potential extubation today pending SPB/sedation hold, F/u with team Daughter, Marianna, to come in something this morning or afternoon Aki able to use pen/clipboard overnight to communicate needs. Glasses at bedside Total of 2L LR given for low UOP Barriers to discharge: Recent ERCP procedure, hemodynamic instability, intubated/sedated lan of Care - Teodoro Thomas RCP - 06/27/2017 3:57 AM PSTFormatting of this note might be different from t sarath original. Problem: RT Goals & Interventions Goal: Actively weaning from ventilator support Outcome: Gradual progress toward goal Events: Pt Intubated and tolerating vent setting well. Airway is intact and patent. No emile nts to note. RT to follow for changes. Possible Scans: CXR Ventilator, Airway or assessment Changes: Mode: $ Ventilator Mode - Adult: Volume AC (06/27/17301) Vt ml/kg: Plat: Plat Press: 12 cm H2O (06/27/17301) RRtotal: Total Rate: 22 bpm (06/27/17301) PEEP: PEEP/CPAP: 5 cm H2O (06/27/17301) Total PEEP: TOTAL PEEP: 6 cm H2O (06/27/17301) FIO2: Current FIO2 (%): 21 fraction of O2 (06/27/17301) SpO2: SpO2: 97 % (06/27/17299) ETCO2: ETCO2: 25 mmHg (06/26/170) Goals for the Day: 7am-7pm: 7pm-7am: wean as tolerated Respiratory Therapy modalities and medication: Vital signs: BP Readings from Last 1 Encounters: 06/26/17 101/67 Pulse Readings from Last 1 Encounters: 06/27/17 58 Resp Readings from Last 1 Encounters: 06/27/17 22 Wt Readings from Last 1 Encounters: 06/26/17 86.5 kg (190 lb 11.2 oz) Temp Readings from Last 1 Encounters: 06/27/17 36.4 C (97.5 F) Body mass index is 28.15 kg/m. ABG Lab Results Component Value Date PH 7.38 06/26/2017 PCO2 40 06/26/2017 PO2 78 06/26/2017 HCO3 23 06/26/2017 K1VMIEUJ 96.8 06/26/2017 FIO2 0.21 06/26/2017 UNU2AYQ2 371 06/26/2017 LWV1WQP8 348 06/26/2017 [id number] 108 (L) 06/26/2017 P/F ratio: Improving/worsening Today Previous day ECMO or ARDS vents only Driving pressure: Plat Press: 12 cm H2O (06/27/17301) - TOTAL PEEP: 6 cm H2O (06/27/17301) = Driving Pressure (DP): 6 cm H2O (06/27/17301) Plat Press: 12 cm H2O Dynamic Lung Compliance: 25 ml/cm CRS Static: 75.00 (06/27/17301) CXR No results found for: CXR lan of [facility] - Teodoro Alvarenga RCP - 06/26/2017 9:53 PM PST Problem: RT Goals & Interventions Goal: Evaluation Outcome: Gradual progress toward goal History and Assessment Pulmonary problems: COPD Smoking history: History Smoking Status Former Smoker Smokeless Tobacco Not on file Comment: per chart. Cannot verify right now pt intubated. Results of recent Chest X-ray: No results found for: CXR Pain:Pain Assessment - numeric scale: 0 Oxygen requirement: Current FIO2 (%): 21 fraction of O2 Heart rate: 63 Respiratory rate: 18 Temperature: Temp: 36.1 C (97 F) Breathsounds:Breath Sound Locations: Bilateral Bilateral: diminished Cough and sputum production: Respiratory Acuity and Protocol Plan A respiratory evaluation has been completed. Based on this assessment Adult Bronchodilator Protocol. [facility] Lela Apodaca - 06/26/2017 8:22 AM PSTAMR 639/FF 82 yom, sepsis. Pt on vent, tolerating well. Sedaition is off due to hypotension. Pt on lev ophed, sent pt into SVT. Resolved with fluid. HR 160, 108 SPB, Et CO2 35, Sat 98%. ETA 10 min [facility] Olga Cohen - 06/26/2017 6:42 AM PSTPer [facility] dispatch. [id number] [place] [facility] [place] 0730. E[facility] [phone] 4:17 AM PSTgrp 18 pag ed [facility] Abisai - 06/26/2017 4:13 AM PST4:08 AM 06/26/2017 connected MD's, 82 yom, hx COPD that has never been an issue before, tonight 4 hrs upper ab d pn, 1 episode vomiting, temp 102, bp 150/60, hr 75, 87% ra sats, duo neb and 2 liters give n, sats up to 96%, 10.8 wbc, alk phos low 200, transaminase in 200's, US shows choleocystiti s, pt started getting worse, desating on 2L, audible wheezing, now on 6L, sating 90, hr 115, rr 30's, bp 150/70, got another duo neb, 125 solumedrol, 3 gm unison, lactate 2.2, ref to i ntubate for transfer, pt accepted to Electronically signed by Abisai Whipple at 8 4:13 AM [facility] - Hailey Apodaca RN - 06/26/2017 3:45 AM [facility] Transfer 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 Impending respiratory failure . Expectation of care: Management of above: Interventions performed: VS: At presentation to ED temp 102. 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 Currently HR and RR increasing. O2 increased to 6L currently. Satting in low 90s, will probably intubate soon as is having increasing distress Pertinent Labs: Labs sent Diagnostics: and ultrasound done Requested Service Line: MICU Connected to: [facility] at capacity: No DECISION: TCRN spoke with Md. Heath. Amenable to transfer to [facility]. Attempted to place at [facility]. No beds available 2/2 staffing. Returned call to [facility] TC TRANSPORTION: [facility] - Abisai Whipple - 06/26/2017 3:45 AM PST3:42 AM 06/26/2017 Dr. Heath [facility], PT: Aki Hurst : 1935 [address], DR. Miranda documen alexia in this encounter Plan of Treatment Not on filedocumented as of this encounter Procedures + +--------+ + + + | Procedure Name | Priori | Date/Time | Associated Diagnosis | Comments | | | ty | | | | + +--------+ + + + | 12 LEAD ECG | Routin | 05/31/2018 | | Results for this | | | e | 5:20 PM | | procedure are in the | | | | PST | | results section. | + +--------+ + + + | CBC (HEMOGRAM) ONLY | Routin | 06/29/2017 | | Results for this | | | e | 3:24 AM | | procedure are in the | | | | PST | | results section. | + +--------+ + + + | COMPLETE METABOLIC | Routin | 06/29/2017 | | Results for this | | SET | e | 3:24 AM | | procedure are in the | | (NA,K,CL,CO2,BUN,CRE | | PST | | results section. | | AT,GLUC,CA,AST,ALT,B | | | | | | CICI TOTAL,ALK | | | | | | PHOS,ALB,PROT TOTAL) | | | | | + +--------+ + + + | CBC ONLY | Routin | 06/29/2017 | | Results for this | | | e | 3:24 AM | | procedure are in the | | | | PST | | results section. | + +--------+ + + + | MAGNESIUM, PLASMA | Routin | 06/29/2017 | | Results for this | | | e | 3:24 AM | | procedure are in the | | | | PST | | results section. | + +--------+ + + + | LIPASE, PLASMA | Routin | 06/28/2017 | | Results for this | | | e | 11:03 PM | | procedure are in the | | | | PST | | results section. | + +--------+ + + + | US ABDOMEN LIMITED | Routin | 06/28/2017 | | Results for this | | | e | 11:30 AM | | procedure are in the | | | | PST | | results section. | + +--------+ + + + | CAPILLARY BLOOD | Routin | 06/28/2017 | | Results for this | | GLUCOSE (NO CHG), | e | 6:32 AM | Choledocholithiasis | procedure are in the | | POC | | PST | | results section. | + +--------+ + + + | CBC (HEMOGRAM) ONLY | Urgent | 06/28/2017 | | Results for this | | | | 3:30 AM | | procedure are in the | | | | PST | | results section. | + +--------+ + + + | CBC ONLY | Urgent | 06/28/2017 | | Results for this | | | | 3:30 AM | | procedure are in the | | | | PST | | results section. | + +--------+ + + + | COMPLETE METABOLIC | Urgent | 06/28/2017 | | Results for this | | SET | | 3:17 AM | | procedure are in the | | (NA,K,CL,CO2,BUN,CRE | | PST | | results section. | | AT,GLUC,CA,AST,ALT,B | | | | | | CICI TOTAL,ALK | | | | | | PHOS,ALB,PROT TOTAL) | | | | | + +--------+ + + + | LIPASE, PLASMA | Routin | 06/28/2017 | | Results for this | | | e | 3:17 AM | | procedure are in the | | | | PST | | results section. | + +--------+ + + + | MAGNESIUM, PLASMA | Routin | 06/28/2017 | | Results for this | | | e | 3:17 AM | | procedure are in the | | | | PST | | results section. | + +--------+ + + + | CAPILLARY BLOOD | Routin | 06/27/2017 | | Results for this | | GLUCOSE (NO CHG), | e | 11:51 PM | Choledocholithiasis | procedure are in the | | POC | | PST | | results section. | + +--------+ + + + | X-RAY CHEST 2 VIEW | Urgent | 06/27/2017 | | Results for this | | | | 9:30 PM | | procedure are in the | | | | PST | | results section. | + +--------+ + + + | CAPILLARY BLOOD | Routin | 06/27/2017 | | Results for this | | GLUCOSE (NO CHG), | e | 6:43 PM | Choledocholithiasis | procedure are in the | | POC | | PST | | results section. | + +--------+ + + + | CAPILLARY BLOOD | Routin | 06/27/2017 | | Results for this | | GLUCOSE (NO CHG), | e | 1:39 PM | Choledocholithiasis | procedure are in the | | POC | | PST | | results section. | + +--------+ + + + | BASIC METABOLIC SET | Urgent | 06/27/2017 | | Results for this | | (NA, K, CL, TCO2, | | 1:39 PM | | procedure are in the | | BUN, CR, GLU, CA) | | PST | | results section. | + +--------+ + + + | SODIUM TOTAL, URINE | Routin | 06/27/2017 | | Results for this | | | e | 9:43 AM | | procedure are in the | | | | PST | | results section. | + +--------+ + + + | CREATININE, URINE | Routin | 06/27/2017 | | Results for this | | | e | 9:43 AM | | procedure are in the | | | | PST | | results section. | + +--------+ + + + | CULTURE, BLOOD BACTI | Urgent | 06/27/2017 | | Results for this | | & YEAST [facility] | | 8:34 AM | | procedure are in the | | | | PST | | results section. | + +--------+ + + + | CULTURE, BLOOD BACTI | Urgent | 06/27/2017 | | Results for this | | & YEAST | | 8:34 AM | | procedure are in the | | | | PST | | results section. | + +--------+ + + + | CULTURE, BLOOD BACTI | Urgent | 06/27/2017 | | Results for this | | & YEAST [facility] | | 8:16 AM | | procedure are in the | | | | PST | | results section. | + +--------+ + + + | CULTURE, BLOOD BACTI | Urgent | 06/27/2017 | | Results for this | | & YEAST | | 8:16 AM | | procedure are in the | | | | PST | | results section. | + +--------+ + + + | CAPILLARY BLOOD | Routin | 06/27/2017 | | Results for this | | GLUCOSE (NO CHG), | e | 8:14 AM | Choledocholithiasis | procedure are in the | | POC | | PST | | results section. | + +--------+ + + + | UA, DIPSTICK ONLY | Routin | 06/27/2017 | | Results for this | | | e | 7:49 AM | | procedure are in the | | | | PST | | results section. | + +--------+ + + + | URINE, MICROSCOPIC | Routin | 06/27/2017 | | Results for this | | EXAM | e | 7:49 AM | | procedure are in the [...] | + +--------+ + + + | CO-OXIMETER PANEL, | Urgent | 06/27/2017 | | Results for this | | BLOOD | | 3:40 AM | | procedure are in the | | | | PST | | results section. | + +--------+ + + + | CBC (HEMOGRAM) ONLY | Urgent | 06/27/2017 | | Results for this | | | | 12:43 AM | | procedure are in the | | | | PST | | results section. | + +--------+ + + + | COMPLETE METABOLIC | Urgent | 06/27/2017 | | Results for this | | SET | | 12:43 AM | | procedure are in the | | (NA,K,CL,CO2,BUN,CRE | | PST | | results section. | | AT,GLUC,CA,AST,ALT,B | | | | | | CICI TOTAL,ALK | | | | | | PHOS,ALB,PROT TOTAL) | | | | | + +--------+ + + + | CBC ONLY | Urgent | 06/27/2017 | | Results for this | | | | 12:43 AM | | procedure are in the | | | | PST | | results section. | + +--------+ + + + | MAGNESIUM, PLASMA | Urgent | 06/27/2017 | | Results for this | | | | 12:43 AM | | procedure are in the | | | | PST | | results section. | + +--------+ + + + | 12 LEAD ECG | Routin | 06/27/2017 | | Results for this | | | e | 12:32 AM | | procedure are in the | | | | PST | | results section. | + +--------+ + + + | OUTSIDE BODY - READ | Routin | 06/27/2017 | | Results for this | | REQUEST | e | 12:00 AM | | procedure are in the | | | | PST | | results section. | + +--------+ + + + | BLOOD GASES, | Routin | 06/26/2017 | | Results for this | | ARTERIAL - LAB | e | 10:13 PM | | procedure are in the | | | | PST | | results section. | + +--------+ + + + | CAPILLARY BLOOD | Routin | 06/26/2017 | | Results for this | | GLUCOSE (NO CHG), | e | 9:57 PM | Choledocholithiasis | procedure are in the | | POC | | PST | | results section. | + +--------+ + + + | X-RAY ABD LTD | Routin | 06/26/2017 | | Results for this | | FEEDING TUBE EVAL | e | 8:53 PM | | procedure are in the | | | | PST | | results section. | + +--------+ + + + | CAPILLARY BLOOD | Routin | 06/26/2017 | | Results for this | | GLUCOSE (NO CHG), | e | 6:21 PM | Choledocholithiasis | procedure are in the | | POC | | PST | | results section. | + +--------+ + + + | 12 LEAD ECG | Routin | 06/26/2017 | | Results for this | | | e | 5:53 PM | | procedure are in the | | | | PST | | results section. | + +--------+ + + + | ART LINE | Routin | 06/26/2017 | | Results for this | | | e | 5:10 PM | | procedure are in the | | | | PST | | results section. | + +--------+ + + + | X-RAY ABDOMEN 1 VIEW | Urgent | 06/26/2017 | | Results for this | | | | 4:52 PM | | procedure are in the | | | | PST | | results section. | + +--------+ + + + | X-RAY FLUOROSCOPY | Urgent | 06/26/2017 | | Results for this | | <=1 HOUR | | 4:52 PM | | procedure are in the | | | | PST | | results section. | + +--------+ + + + | SURGICAL PATHOLOGY | Routin | 06/26/2017 | | Results for this | | | e | 4:36 PM | | procedure are in the | | | | PST | | results section. | + +--------+ + + + | CVL | Routin | 06/26/2017 | | Results for this | | | e | 4:21 PM | | procedure are in the | | | | PST | | results section. | + +--------+ + + + | GI LAB ENDOSCOPIC | Electi | 06/26/2017 | cholangitis | | | RETROGRADE | ve | 3:57 PM | | | | CHOLANGIO-PANCREATOG | Surgic | PST | | | | PAUL (ERCP) IN OR | al | | | | + +--------+ + + + | CBC (HEMOGRAM) ONLY | Urgent | 06/26/2017 | | Results for this | | | | 3:39 PM | | procedure are in the | | | | PST | | results section. | + +--------+ + + + | TROPONIN I, PLASMA | Urgent | 06/26/2017 | | Results for this | | | | 3:39 PM | | procedure are in the | | | | PST | | results section. | + +--------+ + + + | COMPLETE METABOLIC | Urgent | 06/26/2017 | | Results for this | | SET | | 3:39 PM | | procedure are in the | | (NA,K,CL,CO2,BUN,CRE | | PST | | results section. | | AT,GLUC,CA,AST,ALT,B | | | | | | CICI TOTAL,ALK | | | | | | PHOS,ALB,PROT TOTAL) | | | | | + +--------+ + + + | CBC ONLY | Urgent | 06/26/2017 | | Results for this | | | | 3:39 PM | | procedure are in the | | | | PST | | results section. | + +--------+ + + + | LACTATE | Urgent | 06/26/2017 | | Results for this | | | | 3:39 PM | | procedure are in the | | | | PST | | results section. | + +--------+ + + + | CALCIUM, IONIZED, | Urgent | 06/26/2017 | | Results for this | | WHOLE BLOOD | | 3:39 PM | | procedure are in the | | | | PST | | results section. | + +--------+ + + + | 12 LEAD ECG | Routin | 06/26/2017 | | Results for this | | | e | 3:37 PM | | procedure are in the | | | | PST | | results section. | + +--------+ + + + | VITAMIN D, | Urgent | 06/26/2017 | | Results for this | | 25-HYDROXY, SERUM | | 2:01 PM | | procedure are in the | | | | PST | | results section. | + +--------+ + + + | BLOOD GASES, | Routin | 06/26/2017 | | Results for this | | ARTERIAL - LAB | e | 2:01 PM | | procedure are in the | | | | PST | | results section. | + +--------+ + + + | RAINBOW HOLD TUBE - | Urgent | 06/26/2017 | | | | BLUE TOP | | 11:53 AM | | | | | | PST | | | + +--------+ + + + | X-RAY ABD LTD | Routin | 06/26/2017 | | Results for this | | FEEDING TUBE EVAL | e | 11:16 AM | | procedure are in the | | | | PST | | results section. | + +--------+ + + + | COAGULOPATHY PANEL | Urgent | 06/26/2017 | | Results for this | | (INR,APTT,FIBRINOGEN | | 11:13 AM | | procedure are in the | | ) | | PST | | results section. | + +--------+ + + + | X-RAY ABD LTD | Routin | 06/26/2017 | | Results for this | | FEEDING TUBE EVAL | e | 10:03 AM | | procedure are in the | | | | PST | | results section. | + +--------+ + + + | X-RAY ABD LTD | Routin | 06/26/2017 | | Results for this | | FEEDING TUBE EVAL | e | 10:02 AM | | procedure are in the | | | | PST | | results section. | + +--------+ + + + | X-RAY ABD LTD | Routin | 06/26/2017 | | Results for this | | FEEDING TUBE EVAL | e | 10:02 AM | | procedure are in the | | | | PST | | results section. | + +--------+ + + + | X-RAY CHEST 1 VIEW | Urgent | 06/26/2017 | | Results for this | | | | 10:02 AM | | procedure are in the | | | | PST | | results section. | + +--------+ + + + | CONFIRMATORY ABO/RH | Routin | 06/26/2017 | | Results for this | | | e | 9:40 AM | | procedure are in the | | | | PST | | results section. | + +--------+ + + + | ANTIBODY SCREEN | Routin | 06/26/2017 | | Results for this | | | e | 9:40 AM | | procedure are in the | | | | PST | | results section. | + +--------+ + + + | TYPE AND SCREEN | Routin | 06/26/2017 | | Results for this | | | e | 9:40 AM | | procedure are in the | | | | PST | | results section. | + +--------+ + + + | ABO & RH TYPE | Routin | 06/26/2017 | | Results for this | | | e | 9:40 AM | | procedure are in the | | | | PST | | results section. | + +--------+ + + + | 12 LEAD ECG | Routin | 06/26/2017 | | Results for this | | | e | 9:39 AM | | procedure are in the | | | | PST | | results section. | + +--------+ + + + | CULTURE, BLOOD BACTI | Routin | 06/26/2017 | | Results for this | | & YEAST [facility] | e | 9:39 AM | | procedure are in the | | | | PST | | results section. | + +--------+ + + + | CULTURE, BLOOD BACTI | Urgent | 06/26/2017 | | Results for this | | & YEAST [facility] | | 9:39 AM | | procedure are in the | | | | PST | | results section. | + +--------+ + + + | BLOOD CULTURE WORKUP | Routin | 06/26/2017 | | Results for this | | | e | 9:39 AM | | procedure are in the | | | | PST | | results section. | + +--------+ + + + | BLOOD CULTURE WORKUP | Urgent | 06/26/2017 | | Results for this | | | | 9:39 AM | | procedure are in the | | | | PST | | results section. | + +--------+ + + + | RBC MORPHOLOGY | Routin | 06/26/2017 | | Results for this | | | e | 9:39 AM | | procedure are in the | | | | PST | | results section. | + +--------+ + + + | CBC AND AUTO DIFF | Urgent | 06/26/2017 | | Results for this | | | | 9:39 AM | | procedure are in the | | | | PST | | results section. | + +--------+ + + + | MANUAL DIFFERENTIAL | Routin | 06/26/2017 | | Results for this | | | e | 9:39 AM | | procedure are in the | | | | PST | | results section. | + +--------+ + + + | CBC, WITH | Urgent | 06/26/2017 | | Results for this | | DIFFERENTIAL | | 9:39 AM | | procedure are in the | | | | PST | | results section. | + +--------+ + + + | CULTURE, BLOOD BACTI | Routin | 06/26/2017 | | Results for this | | & YEAST | e | 9:39 AM | | procedure are in the | | | | PST | | results section. | + +--------+ + + + | CULTURE, BLOOD BACTI | Urgent | 06/26/2017 | | Results for this | | & YEAST | | 9:39 AM | | procedure are in the | | | | PST | | results section. | + +--------+ + + + | TROPONIN I, PLASMA | Urgent | 06/26/2017 | | Results for this | | | | 9:30 AM | | procedure are in the | | | | PST | | results section. | + +--------+ + + + | COMPLETE METABOLIC | Urgent | 06/26/2017 | | Results for this | | SET | | 9:30 AM | | procedure are in the | | (NA,K,CL,CO2,BUN,CRE | | PST | | results section. | | AT,GLUC,CA,AST,ALT,B | | | | | | CICI TOTAL,ALK | | | | | | PHOS,ALB,PROT TOTAL) | | | | | + +--------+ + + + | MAGNESIUM, PLASMA | Urgent | 06/26/2017 | | Results for this | | | | 9:30 AM | | procedure are in the | | | | PST | | results section. | + +--------+ + + + | BLOOD GASES, | Routin | 06/26/2017 | | Results for this | | ARTERIAL - LAB | e | 9:29 AM | | procedure are in the | | | | PST | | results section. | + +--------+ + + + | QJ-WG-TDC-HB,POC RT | Urgent | 06/26/2017 | | Results for this | | | | 8:55 AM | Choledocholithiasis | procedure are in the | | | | PST | | results section. | + +--------+ + + + | LAB REPORTS | | 06/26/2017 | | Results for this | | | | 12:00 AM | | procedure are in the | | | | PST | | results section. | + +--------+ + + + | PATHOLOGY | | 06/26/2017 | | Results for this | | | | 12:00 AM | | procedure are in the | | | | PST | | results section. | + +--------+ + + + documented in this encounter Results 12 LEAD ECG (05/31/2018 5:20 PM PST) + + + + + + | Component | Value | Ref Range | Performed | Pathologist | | | | | At | Signature | + + + + + + | VENTRICULAR | 69 | bpm | [facility] | | | RATE | | | OF | | | | | | CARDIOLOGY | | + + + + + + | ATRIAL RATE | 75 | ms | [facility] | | | | | | OF | | | | | | CARDIOLOGY | | + + + + + + | P-R | 82 | ms | [facility] | | | INTERVAL | | | OF | | | | | | CARDIOLOGY | | + + + + + + | P AXIS | 0 | deg | [facility] | | | | | | OF | | | | | | CARDIOLOGY | | + + + + + + | QRS | 133 | ms | [facility] | | | DURATION | | | OF | | | | | | CARDIOLOGY | | + + + + + + | QT | 435 | ms | [facility] | | | | | | OF | | | | | | CARDIOLOGY | | + + + + + + | QTC-BAZETT | 465 | ms | [facility] | | | | | | OF | | | | | | CARDIOLOGY | | + + + + + + | R AXIS | 81 | deg | [facility] | | | | | | OF | | | | | | CARDIOLOGY | | + + + + + + | T AXIS | 4 | deg | [facility] | | | | | | OF | | | | | | CARDIOLOGY | | + + + + + + | ECG | Sinus rhythm | | [facility] | | | IMPRESSION | | | OF | | | | | | CARDIOLOGY | | + + + + + + | ECG | Short DC interval | | [facility] | | | [...] DEPT | | | IMPRESSION | by: FRANKO GARCIA | | OF | | | | 05-31-2018 20:09:22 | | CARDIOLOGY | | + + [...] [facility] | [address] | [place], [place] | | | CARDIOLOGY | [address] | [id number] | | + + + + + CBC (HEMOGRAM) ONLY (06/29/2017 3:24 AM PST) + + + + + + | Component | Value | Ref Range | Performed | Pathologist | | | | | At | Signature | + + + + + + | WHITE CELL | 8.69 | 3.50 - 10.80 | [facility] | | | COUNT | | K/cu mm | LABORATORY | | | | | | SERVICES, | | | | | | CORE | | + + + + + + | RED CELL | 3.89 (L) | 4.50 - 6.00 | [facility] [...] 92.5 | 80.0 - 96.0 fL | [facility] | | | | | | LABORATORY | | | | | | SERVICES, | | | | | | CORE | | + + + + + + | MCHC | 32.5 | 33.0 - 35.5 | [facility] | | | | | [...] + + + + | PLATELET | 134 (L) | 150 - 400 K/cu | [...] | + + + + + | [facility] | [address] | [place] [address] | | | SERVICES, CORE | [address] | | | + + + + + MAGNESIUM, PLASMA (06/29/2017 3:24 AM PST) + +-------+ + + + [...] At | + + + | Reference range change effective 01/02/17. | [facility] | | | LABORATORY | | | SERVICES, CORE | + + + + + + + + | Performing | Address | City/State/Zipcode | Phone Number | | Organization | | | | + + + + + | [facility] | [address] | [place] [address] | | | SERVICES, CORE | [address] | | | + + + + + COMPLETE METABOLIC SET (NA,K,CL,CO2,BUN,CREAT,GLUC,CA,AST,ALT,BILI TOTAL,ALK PHOS,ALB,PROT TOTAL) (06/29/2017 3:24 AM PST) + +---------+ + + + | Component | Value | Ref Range | Performed | Pathologist | | | | | At | Signature | + +---------+ + + + | GLUCOSE, | 91 | 70 - 99 mg/dL | [facility] [...] +---------+ + + + | CREATININE | 0.98 | 0.70 - 1.30 | [facility] | | | PLASMA | | mg/dL | LABORATORY | | | (LAB) | | | SERVICES, | | | | | | CORE | | + +---------+ + + + | EGFR | >60 | >60 mL/min | [facility] | | | - | | | LABORATORY | | | MALAYSIAN | | | SERVICES, | | | | | | CORE | | + +---------+ + + + | EGFR NON | >60 | >60 mL/min | [facility] | | | -HORACIO | | | LABORATORY | | | RICAN | | | SERVICES, | | | | | | CORE | | + +---------+ + + + | SODIUM, | 140 | 136 - 145 | [facility] | [...] +---------+ + + + | CALCIUM, | 7.8 (L) | 8.6 - 10.2 | [facility] | | | PLASMA | | mg/dL | LABORATORY | | | (LAB) | | | SERVICES, | | | | | | CORE | | + +---------+ + + + | CALCIUM(ALB | 9.0 | 8.6 - 10.2 | [facility] | | | CORRECTED) | | mg/dL | LABORATORY | | | | | | SERVICES, | | | | | | CORE | | + +---------+ + + + | BILIRUBIN | 1.2 | 0.3 - 1.2 mg/dL | [facility] | | | TOTAL | | | LABORATORY | | | | | | SERVICES, | | | | | | CORE | | + +---------+ + + + | TOTAL | 5.1 (L) | 6.4 - 8.2 g/dL | [facility] | | | PROTEIN, | | | LABORATORY | | | PLASMA | | | SERVICES, | | | (LAB) | | | CORE | | + +---------+ + + + | ALBUMIN, | 2.5 (L) | 3.5 - 4.7 g/dL | [facility] | | | PLASMA | | | LABORATORY | | | (LAB) | | | SERVICES, | | | | | | CORE | | + +---------+ + + + | ALK PHOS | 104 | 56 - 119 U/L | [facility] | | | | | | LABORATORY | | | | | | SERVICES, | | | | | | CORE | | + +---------+ + + + | AST(SGOT) | 29 | <=41 U/L | [facility] | | | | | | LABORATORY | | | | | | SERVICES, | | | | | | CORE | | + +---------+ + + + | ALT (SGPT) | 96 (H) | <=60 U/L | [facility] | | | | | [...] + +---------+ + + + | ANION | 8 | 4 - 11 mmol/L | [facility] | | | GAP(ALB | | | LABORATORY | | | CORRECTED) | | | SERVICES, | | | | | | CORE | | + +---------+ + + + | POTASSIUM | No Hemo | | [facility] | | | CMNT | | | LABORATORY | | | | | | SERVICES, | | | | | | CORE | | + +---------+ + + + | BILI T CMNT | No Hemo | | [facility] | | | | | | LABORATORY | | | | | | SERVICES, | | | | | | CORE | | + +---------+ + + + | AST CMNT | No Hemo | | [facility] | | | | | | LABORATORY | | | | | | SERVICES, | | | | | | CORE | | + +---------+ + + + + + | Specimen | + + | Blood - Blood | | (substance) | + + + + + | Narrative | Performed At | + + + | Adult glucose reference range change effective 7-12-17. GFR is | [facility] | | estimated using the MDRD equation recommended by the National Kidney | LABORATORY | | Disease Education Program. Estimated GFR Interpretive Information: | SERVICES, CORE | | <60 mL/min/1.73 sq m Chronic Kidney Disease | | | <15 mL/min/1.73 sq m Kidney Failure Estimated | | | GFR greater that 60 mL/min/1.73 sq m is of limited clinical value. | | | The MDRD equation is not valid in the following situations: - | | | Patients under 18 years of age - Severe malnutrition or obesity - | | | Vegetarian diet - Rapidly changing kidney function | | + + + + + + + + | Performing | Address | City/State/Zipcode | Phone Number | | Organization | | | | + + + + + | [facility] | [address] | [place] [address] | | | SERVICES, CORE | [address] | | | + + + + + LIPASE, PLASMA (06/28/2017 11:03 PM PST) + +--------+ + + + | Component | Value | Ref Range | Performed | Pathologist | | | | | At | Signature | + +--------+ + + + | LIPASE | 62 (L) | 152 - 353 U/L | [facility] | | | (LAB) | | | LABORATORY | | | | | | SERVICES, | | | | | | CORE | | + +--------+ + + + + + | Specimen | + + | Blood - Blood | | (substance) | + + + + + + + | Performing | Address | City/State/Zipcode | Phone Number | | Organization | | | | + + + + + | [facility] | [address] | [place] [address] | | | SERVICES, CORE | [address] | | | + + + + + US ABDOMEN LIMITED (06/28/2017 11:30 AM PST) + + | Specimen | + + | | + + + + + | Narrative | Performed At | + + + | EXAM: US ABDOMEN LIMT HISTORY: Worsening abdominal pain | [facility] | | status post ERCP sphincterotomy and common hepatic duct stent. Pt | RADIOLOGY VOICE | | had been admitted to MICU for septic shock due to acute cholangitis | RECOGNITION | | now s/p sphincterotomy and CHD stent. COMPARISON: ERCP 06/26/2017 | | | and outside abdomen ultrasound 06/26/2017 TECHNIQUE: Limited | | | abdominal ultrasound performed. FINDINGS: Liver: The echotexture | | | is homogeneous. No focal lesion. Biliary: The gallbladder is | | | obscured by bowel gas. No biliary dilatation. Partially visualized air | | | within the common duct without definite visualization of the stent | | | sonographically. Common duct measures up to 3 mm in diameter. | | | Other: Small and free fluid in the right upper quadrant near the | | | falciform. IMPRESSION: Gallbladder obscured by bowel gas and | | | not visualized sonographically. No biliary duct dilation. Air | | | visualized within the common duct status post ERCP. Common duct stent | | | not visualized on this study. No ascites. No explanation for pain. | | | Some free fluid adjacent to the falciform ligament. Consider CT. | | | I have personally reviewed the images and, if necessary, edited the | | | report. I agree with the report as now presented. | | + + + + + [...] as now presented. | + + + +---------+ + + | Performing | Address | City/State/Zipcode | Phone Number | | Organization | | | | + +---------+ + + | [facility] | | | | | VOICE RECOGNITION | | | | + +---------+ + + CAPILLARY BLOOD GLUCOSE (NO CHG), POC (06/28/2017 6:32 AM PST) + +---------+ + + + | Component | Value | Ref Range | Performed | Pathologist | | | | | At | Signature | + +---------+ + + + | BLOOD | 152 (H) | 70 - 99 mg/dL | [facility] - | [...] | [facility] | [address] | [place], [place] | | | [facility] [place] | [address] | [address] | | | TESTS | | | | + + + + + CBC (HEMOGRAM) ONLY (06/28/2017 3:30 AM PST) + + + + + + | Component | Value | Ref Range | Performed | Pathologist | | | | | At | Signature | + + + + + + | WHITE CELL | 10.08 | 3.50 - 10.80 | [facility] | [...] + + + + | HEMOGLOBIN | 12.0 (L) | 13.5 - 17.5 | [facility] | | | | | g/dL | LABORATORY | | | | | | SERVICES, | | | | | | CORE | | + + + + + + | HEMATOCRIT | 36.5 (L) | 41.0 - 53.0 % | [facility] | | | | | | LABORATORY | | | | | | SERVICES, | | | | | | CORE | | + + + + + + | MCV | 91.5 | 80.0 - 96.0 fL | [facility] | | | | | | LABORATORY | | | | | | SERVICES, | | | | | | CORE | | + + + + + + | MCHC | 32.9 | 33.0 - 35.5 | [facility] | | | | | g/dL | LABORATORY | | | | | | SERVICES, | | | | | | CORE | | + + + + + + | RDW SD | 50.0 (H) | 35.1 - 46.3 fL | [facility] | | | | | | LABORATORY | | | | | | SERVICES, | | | | | | CORE | | + + + + + + | PLATELET | 122 (L) | 150 - 400 K/cu | [...] | + + + + + | [facility] | [address] | [place] [address] | | | SERVICES, CORE | [address] | | | + + + + + LIPASE, PLASMA (06/28/2017 3:17 AM PST) + +--------+ + + + | Component | Value | Ref Range | Performed | Pathologist | | | | | At | Signature | + +--------+ + + + | LIPASE | 79 (L) | 152 - 353 U/L | [facility] | | | (LAB) | | | LABORATORY | | | | | | SERVICES, | | | | | | CORE | | + +--------+ + + + + + | Specimen | + + | Blood - Blood | | (substance) | + + + + + + + | Performing | Address | City/State/Zipcode | Phone Number | | Organization | | | | + + + + + | [facility] | [address] | [place] [address] | | | SERVICES, CORE | [address] | | | + + + + + COMPLETE METABOLIC SET (NA,K,CL,CO2,BUN,CREAT,GLUC,CA,AST,ALT,BILI TOTAL,ALK PHOS,ALB,PROT TOTAL) (06/28/2017 3:17 AM PST) + +---------+ + + + | Component | Value | Ref Range | Performed | Pathologist | | | | | At | Signature | + +---------+ + + + | GLUCOSE, | 105 (H) | 70 - 99 mg/dL | [facility] | | | PLASMA | | | LABORATORY | | | (LAB) | | | SERVICES, | | | | | | CORE | | + +---------+ + + + | BUN, PLASMA | 26 (H) | 6 - 20 mg/dL | [facility] | | | (LAB) | | | LABORATORY | | | | | | SERVICES, | | | | | | CORE | | + +---------+ + + + | CREATININE | 1.09 | 0.70 - 1.30 | [facility] | | | PLASMA | | mg/dL | LABORATORY | | | (LAB) | | | SERVICES, | | | | | | CORE | | + +---------+ + + + | EGFR | >60 | >60 mL/min | [facility] | | | - | | | LABORATORY | | | MALAYSIAN | | | SERVICES, | | | | | | CORE | | + +---------+ + + + | EGFR NON | >60 | >60 mL/min | [facility] | | | -HORACIO | | | LABORATORY | | | RICAN | | | SERVICES, | | | | | | CORE | | + +---------+ + + + | SODIUM, | 142 | 136 - 145 | [facility] | [...] +---------+ + + + | CHLORIDE, | 108 | 97 - 108 mmol/L | [facility] [...] +---------+ + + + | CALCIUM, | 7.7 (L) | 8.6 - 10.2 | [facility] | | | PLASMA | | mg/dL | LABORATORY | | | (LAB) | | | SERVICES, | | | | | | CORE | | + +---------+ + + + | CALCIUM(ALB | 8.7 | 8.6 - 10.2 | [facility] | | | CORRECTED) | | mg/dL | LABORATORY | | | | | | SERVICES, | | | | | | CORE | | + +---------+ + + + | BILIRUBIN | 1.1 | 0.3 - 1.2 mg/dL | [facility] | | | TOTAL | | | LABORATORY | | | | | | SERVICES, | | | | | | CORE | | + +---------+ + + + | TOTAL | 5.5 (L) | 6.4 - 8.2 g/dL | [facility] | | | PROTEIN, | | | LABORATORY | | | PLASMA | | | SERVICES, | | | (LAB) | | | CORE | | + +---------+ + + + | ALBUMIN, | 2.8 (L) | 3.5 - 4.7 g/dL | [facility] | | | PLASMA | | | LABORATORY | | | (LAB) | | | SERVICES, | | | | | | CORE | | + +---------+ + + + | ALK PHOS | 132 (H) | 56 - 119 U/L | [facility] | | | | | | LABORATORY | | | | | | SERVICES, | | | | | | CORE | | + +---------+ + + + | AST(SGOT) | 65 (H) | <=41 U/L | [facility] | | | | | | LABORATORY | | | | | | SERVICES, | | | | | | CORE | | + +---------+ + + + | ALT (SGPT) | 154 (H) | <=60 U/L | [facility] | | | | | [...] + +---------+ + + + | ANION | 8 | 4 - 11 mmol/L | [facility] | | | GAP(ALB | | | LABORATORY | | | CORRECTED) | | | SERVICES, | | | | | | CORE | | + +---------+ + + + | POTASSIUM | No Hemo | | [facility] | | | CMNT | | | LABORATORY | | | | | | SERVICES, | | | | | | CORE | | + +---------+ + + + | BILI T CMNT | No Hemo | | [facility] | | | | | | LABORATORY | | | | | | SERVICES, | | | | | | CORE | | + +---------+ + + + | AST CMNT | No Hemo | | [facility] | | | | | | LABORATORY | | | | | | SERVICES, | | | | | | CORE | | + +---------+ + + + + + | Specimen | + + | Blood - Blood | | (substance) | + + + + + | Narrative | Performed At | + + + | Adult glucose reference range change effective 7-12-17. GFR is | [facility] | | estimated using the MDRD equation recommended by the National Kidney | LABORATORY | | Disease Education Program. Estimated GFR Interpretive Information: | [facility], CORE | | <60 mL/min/1.73 sq m Chronic Kidney Disease | | | <15 mL/min/1.73 sq m Kidney Failure Estimated | | | GFR greater that 60 mL/min/1.73 sq m is of limited clinical value. | | | The MDRD equation is not valid in the following situations: - | | | Patients under 18 years of age - Severe malnutrition or obesity - | | | Vegetarian diet - Rapidly changing kidney function | | + + + + + + + + | Performing | Address | City/State/Zipcode | Phone Number | | Organization | | | | + + + + + | [facility] | [address] | [place] [address] | | | [place] | [address] | | | + + + + + MAGNESIUM, PLASMA (06/28/2017 3:17 AM PST) + +-------+ + + + | Component | Value | Ref Range | Performed | Pathologist | | | | | At | Signature | + +-------+ + + + | MAGNESIUM,P | 2.2 | 1.6 - 2.6 mg/dL | [facility] [...] At | + + + | Reference range change effective 01/02/17. | [facility] | | | LABORATORY | | | [place] [facility] | + + + + + + + + | Performing | Address | City/State/Zipcode | Phone Number | | Organization | | | | + + + + + | [facility] | [address] | [place] [address] | | | [place] | [address] | | | + + + + + CAPILLARY BLOOD GLUCOSE (NO CHG), POC (06/27/2017 11:51 PM PST) + +---------+ + + + | Component | Value | Ref Range | Performed | Pathologist | | | | | At | Signature | + +---------+ + + + | BLOOD | 141 (H) | 70 - 99 mg/dL | [facility] | | | GLUCOSE, | | | [facility] | | | POC | | | [place] | | | | | | OF [...] + | [facility] | [address] | [place], [place] | | | [facility] | [address] | [phone] | | | TESTS | | | | + + + + + X-RAY CHEST 2 VIEW (06/27/2017 9:30 PM PST) + + | Specimen | + + | | + + + + + | Narrative | Performed At | + + + | EXAM: CHEST 2 VIEWS HISTORY: Suspected aspiration. Hypoxic | [facility] | | respiratory failure post sphincterotomy with acute cholangitis | RADIOLOGY VOICE | | COMPARISON: 06/26/17 FINDINGS: Interval removal of internal | RECOGNITION | | jugular central line, enteric tube, and endotracheal tube. The | | | cardiomediastinal silhouette is stable. Minimal new right lower lobe | | | mild peribronchovascular groundglass. Mild airway thickening. | | | Persistent flattening of the diaphragms consistent with chronic | | | obstructive pulmonary physiology. No pleural effusion. No | | | pneumothorax. IMPRESSION: New minimal patchy ground glass in | | | the right lower lobe, consider aspiration in the appropriate clinical | | | setting. Findings of COPD redemonstrated. I have personally | | | reviewed the images and, if necessary, edited the report. I agree | | | with the report as now presented. | | + + + + + | Procedure Note | + + | Service Account, [employer] Res In Interface - 06/28/2017 10:17 AM [...] as now presented. | + + + +---------+ + + | Performing | Address | City/State/Zipcode | Phone Number | | Organization | | | | + +---------+ + + | [facility] | | | | | VOICE RECOGNITION | | | | + +---------+ + + CAPILLARY BLOOD GLUCOSE (NO CHG), POC (06/27/2017 6:43 PM PST) + +---------+ + + + | Component | Value | Ref Range | Performed | Pathologist | | | | | At | Signature | + +---------+ + + + | BLOOD | 128 (H) | 70 - 99 mg/dL | [facility] - | [...] + | [facility] | [address] | [place], [place] | | | [facility] | [address] | [address] | | | TESTS | | | | + + + + + CAPILLARY BLOOD GLUCOSE (NO CHG), POC (06/27/2017 1:39 PM PST) + +---------+ + + + | Component | Value | Ref Range | Performed | Pathologist | | | | | At | Signature | + +---------+ + + + | BLOOD | 170 (H) | 70 - 99 mg/dL | [facility] - | [...] | [facility] | [address] | [place], [place] | | | [facility] | [address] | [address] | | | TESTS | | | | + + + + + BASIC METABOLIC SET (NA, K, CL, TCO2, BUN, CR, GLU, CA) (06/27/2017 1:39 PM PST) + +---------+ + + + | Component | Value | Ref Range | Performed | Pathologist | | | | | At | Signature | + +---------+ + + + | GLUCOSE, | 144 (H) | 70 - 99 [...] +---------+ + + + | CREATININE | 0.97 | 0.70 - 1.30 | [facility] | | | PLASMA | | mg/dL | LABORATORY | | | (LAB) | | | SERVICES, | | | | | | CORE | | + +---------+ + + + | EGFR | >60 | >60 mL/min | [facility] | | | - | | | LABORATORY | | | MALAYSIAN | | | SERVICES, | | | | | | CORE | | + +---------+ + + + | EGFR NON | >60 | >60 mL/min | [facility] | | | -HORACIO | | | LABORATORY | | | RICAN | | | SERVICES, | | | | | | CORE | | + +---------+ + + + | SODIUM, | 141 | 136 - 145 | [facility] | | | PLASMA | | mmol/L | LABORATORY | | | (LAB) | | | SERVICES, | | | | | | CORE | | + +---------+ + + + | POTASSIUM, | 4.5 | 3.4 - 5.0 | [facility] | | | PLASMA | | mmol/L | LABORATORY | | | (LAB) | | | SERVICES, | | | | | | CORE | | + +---------+ + + + | CHLORIDE, | 109 (H) | 97 - 108 mmol/L | [facility] | | | PLASMA | | | LABORATORY | | | (LAB) | | | SERVICES, | | | | | | CORE | | + +---------+ + + + | TOTAL CO2, | 25 | 21 - 32 mmol/L | [facility] [...] Performed At | + + + | Adult glucose reference range change effective 7-17. GFR is | [facility] | | estimated using the MDRD equation recommended by the National Kidney | LABORATORY | | Disease Education Program. Estimated GFR Interpretive Information: | SERVICES, CORE | | <60 mL/min/1.73 sq m Chronic Kidney Disease | | | <15 mL/min/1.73 sq m Kidney Failure Estimated | | | GFR greater that 60 mL/min/1.73 sq m is of limited clinical value. | | | The MDRD equation is not valid in the following situations: - | | | Patients under 18 years of age - Severe malnutrition or obesity - | | | Vegetarian diet - Rapidly changing kidney function | | + + + + + + + + | Performing | Address | City/State/Zipcode | Phone Number | | Organization | | | | + + + + + | [facility] | [phone] | [place] [address] | | | SERVICES, CORE | [address] | | | + + + + + CREATININE, URINE (06/27/2017 9:43 AM PST) + + + + + + | Component | Value | Ref Range | Performed | Pathologist | | | | | At | Signature | + + + + + + | CREATININE, | 0.06 (L) | 0.80 - 1.80 | [facility] | | | URINE | | g/col. time | LABORATORY | | | | | | SERVICES, | | | | | | CORE | | + + + + + + | CREATININE | 185.00 | mg/dL | [facility] | | | CONC UR | | | LABORATORY | | | | | | SERVICES, | | | | | | CORE | | + + + + + + | URINE | 30Comment: NA | mL | [facility] | | | VOLUME | | | LABORATORY | | | | | | SERVICES, | | | | | | CORE | | + + + + + + | URINE | RandomComment: spot | | [facility] | | | INTERVAL | check | | LABORATORY | | | | | | SERVICES, | | | | | | CORE | | + + + + + + | URINE | SpotComment: NA | | [facility] | | | VOLUME | | | LABORATORY | | | | | | SERVICES, | | | | | | CORE | | + + + + + + + + | Specimen | + + | Urine - Urine | | (substance) | + + + + + | Narrative | Performed At | + + + | Normal values based on 24 hour collection interval. Patient | [facility] | | results are calculated from actual collection interval and volume. | LABORATORY | | | SERVICES, CORE | + + + + + + + + | Performing | Address | City/State/Zipcode | Phone Number | | Organization | | | | + + + + + | [facility] | [address] | [place] [address] | | | SERVICES, CORE | [address] | | | + + + + + SODIUM TOTAL, URINE (06/27/2017 9:43 AM PST) + + + + + + | Component | Value | Ref Range | Performed | Pathologist | | | | | At | Signature | + + + + + + | SODIUM, | 1 (L) | 40 - 220 | [facility] | | | URINE | | mmol/24hrs | LABORATORY | | | | | | SERVICES, | | | | | | CORE | | + + + + + + | SODIUM CONC | 37 | mmol/L | [facility] | | | URINE | | | LABORATORY | | | | | | SERVICES, | | | | | | CORE | | + + + + + + | URINE | 30Comment: NA | mL | [facility] | | | VOLUME | | | LABORATORY | | | | | | SERVICES, | | | | | | CORE | | + + + + + + | URINE | RandomComment: spot | | [facility] | | | INTERVAL | check | | LABORATORY | | | | | | SERVICES, | | | | | | CORE | | + + + + + + | URINE | SpotComment: NA | | [facility] | | | VOLUME | | | LABORATORY | | | | | | SERVICES, | | | | | | CORE | | + + + + + + + + | Specimen | + + | Urine - Urine | | (substance) | + + + + + | Narrative | Performed At | + + + | Normal values based on 24 hour collection interval. Patient | [facility] | | results are calculated from actual collection interval and volume. | LABORATORY | | | SERVICES, CORE | + + + + + + + + | Performing | Address | City/State/Zipcode | Phone Number | | Organization | | | | + + + + + | [facility] | [address] | [place] [address] | | | SERVICES, CORE | [address] | | | + + + + + CULTURE, BLOOD BACTI & YEAST [facility] (06/27/2017 8:34 AM PST) + + + + + + | Component | Value | Ref Range | Performed | Pathologist | | | | | At | Signature | + + + + + + | CULTURE | Final Report:No Bacteria | | [facility] | | | RESULT | or Yeast isolated at 5 | | LABORATORY | | | | days. | | SERVICES, | | | | | | CORE | | + + + + + + + + | Specimen | + + | Blood | + + + + + + + | Performing | Address | City/State/Zipcode | Phone Number | | Organization | | | | + + + + + | [facility] | [address] | [place] [address] | | | SERVICES, CORE | [address] | | | + + + + + CULTURE, BLOOD BACTI & YEAST [facility] (06/27/2017 8:16 AM PST) + + + + + + | Component | Value | Ref Range | Performed | Pathologist | | | | | At | Signature | + + + + + + | CULTURE | Final Report:No Bacteria | | [facility] | | | RESULT | or Yeast isolated at 5 | | LABORATORY | | | | days. | | SERVICES, | | | | | | CORE | | + + + + + + + + | Specimen | + + | Blood - Entire left | | upper arm (body | | structure) | + + + + + + + | Performing | Address | City/State/Zipcode | Phone Number | | Organization | | | | + + + + + | [facility] | [address] | [place] [address] | | | [facility] | [address] | | | + + + + + CAPILLARY BLOOD GLUCOSE (NO CHG), POC (06/27/2017 8:14 AM PST) + +---------+ + + + | Component | Value | Ref Range | Performed | Pathologist | | | | | At | Signature | + +---------+ + + + | BLOOD | 147 (H) | 70 - 99 mg/dL | [facility] - | | | GLUCOSE, | | [...] | + + + + + | [facility] | [address] | [place], [place] | | | [facility] | [address] | [address] | | | TESTS | | | | + + + + + URINE, MICROSCOPIC EXAM (06/27/2017 7:49 AM PST) + +---------+ + + + | Component | Value | Ref Range | Performed | Pathologist | | | | | At | Signature | + +---------+ + + + | RED CELLS | 4 (H) | 0 - 3 /hpf | [facility] | | | | | | LABORATORY | | | | | | SERVICES, | | | | | | CORE | | + +---------+ + + + | WHITE CELLS | 4 | 0 - 5 /hpf | [facility] | | | | | | LABORATORY | | | | | | SERVICES, | | | | | | CORE | | + +---------+ + + + | BACTERIA | None | None /hpf | [facility] | | | | | | LABORATORY | | | | | | SERVICES, | | | | | | CORE | | + +---------+ + + + | YEAST (LAB) | None | None /hpf | [facility] | | | | | | LABORATORY | | | | | | SERVICES, | | | | | | CORE | | + +---------+ + + + | SQUAMOUS | Few (A) | None /hpf | [facility] | | | EPITHELIAL | | | LABORATORY | | | | | | SERVICES, | | | | | | CORE | | + +---------+ + + + | MUCOUS | None | None /hpf | [facility] | | | | | | LABORATORY | | | | | | SERVICES, | | | | | | CORE | | + +---------+ + + + | TRICHOMONAS | None | None /hpf | [facility] | | | | | | LABORATORY | | | | | | SERVICES, | | | | | | CORE | | + +---------+ + + + | NON-SQUAMOU | Few (A) | None /hpf | [facility] | | | S EPITH | | | LABORATORY | | | | | | SERVICES, | | | | | | CORE | | + +---------+ + + + | HYALINE | 0 | 0 - 2 /lpf | [facility] | | | CASTS | | | LABORATORY | | | | | | SERVICES, | | | | | | CORE | | + +---------+ + + + | GRANULAR | 0 | 0 - 2 /lpf | [facility] | | | CASTS | | | LABORATORY | | | | | | SERVICES, | | | | | | CORE | | + +---------+ + + + | CELLULAR | 0 | <=0 /lpf | [facility] | | | CASTS | | | LABORATORY | | | | | | SERVICES, | | | | | | CORE | | + +---------+ + + + | TRIPLE P04 | None | None /hpf | [facility] | | | CRYSTALS | | | LABORATORY | | | | | | SERVICES, | | | | | | CORE | | + +---------+ + + + | CALCIUM | None | None /hpf | [facility] | | | OXALATE | | | LABORATORY | | | CARA | | | SERVICES, | | | | | | CORE | | + +---------+ + + + | URIC ACID | None | None /hpf | [facility] | | | CRYSTALS | | | LABORATORY | | | | | | SERVICES, | | | | | | CORE | | + +---------+ + + + | AMORPHOUS | None | None /hpf | [facility] | | | CRYSTALS | | | LABORATORY | | | | | | SERVICES, | | | | | | CORE | | + +---------+ + + + + + | Specimen | + + | Urine - Urinary | | bladder structure | | (body structure) | + + + + + + + | Performing | Address | City/State/Zipcode | Phone Number | | Organization | | | | + + + + + | [facility] | [address] | [place] [address] | | | S[place], [place] | [address] | | | + + + + + BRITTANY HANEY ONLY (06/27/2017 7:49 AM PST) + + + + + + | Component | Value | Ref Range | Performed | Pathologist | | | | | At | Signature | + + + + + + | COLOR(UR) | Subha | | [facility] | | | | | | LABORATORY | | | | | | SERVICES, | | | | | | CORE | | + + + + + + | APPEARANCE | Sl.Cloudy | | [facility] | | | | | | LABORATORY | | | | | | SERVICES, | | | | | | CORE | | + + + + + + | GLUCOSE(UR) | Negative | Negative, 50.0 | [facility] | | | | | mg/dL | LABORATORY | | | | | | SERVICES, | | | | | | CORE | | + + + + + + | PROTEIN(LAB | 30.0 | Negative, 30.0 | [facility] | | | ) | | mg/dL | LABORATORY | | | | | | SERVICES, | | | | | | CORE | | + + + + + + | BILIRUBIN | Moderate (A) | Negative | [facility] | | | | | | LABORATORY | | | | | | SERVICES, | | | | | | CORE | | + + + + + + | UROBILINOGE | >=4.0 (A) | <2.0 mg/dL | [facility] | | | N | | | LABORATORY | | | | | | SERVICES, | | | | | | CORE | | + + + + + + | PH(UR) | 5.0 | 5.0 - 8.0 | [facility] | | | | | | LABORATORY | | | | | | SERVICES, | | | | | | CORE | | + + + + + + | BLOOD | Negative | Negative | [facility] | | | | | | LABORATORY | | | | | | SERVICES, | | | | | | CORE | | + + + + + + | KETONES | Negative | Negative mg/dL | [facility] | | | | | | LABORATORY | | | | | | SERVICES, | | | | | | CORE | | + + + + + + | NITRITES | Negative | Negative | [facility] | | | | | | LABORATORY | | | | | | SERVICES, | | | | | | CORE | | + + + + + + | LEUKOCYTE | Negative | Negative | [facility] | | | ESTERASE | | | LABORATORY | | | | | | SERVICES, | | | | | | CORE | | + + + + + + | SPECIFIC | 1.040 (H)Comment: | 1.005 - 1.030 | [facility] | | | GRAVITY | Specific [place] | | LABORATORY | | | | performed by | | SERVICES, | | | | refractometry | | CORE | | + + + + + + + + | Specimen | + + | Urine - Urinary | | bladder structure | | (body structure) | + + + + + | Narrative | Performed At | + + + | Positive bilirubin dipstick results are not confirmed by an | [facility] | | alternate method. Suggest serum total bilirubin and/or liver function | LABORATORY | | panel if clinically indicated. | SERVICES, CORE | + + + + + + + + | Performing | Address | City/State/Zipcode | Phone Number | | Organization | | | | + + + + + | [facility] | [address] | [place] [address] | | | SERVICES, CORE | [address] | | | + + + + + ERCP (06/27/2017 6:38 AM PST) + + | Specimen | + + | | + + + + + | Narrative | Performed At | + + + | MRN: | [facility] | | [id number] Date: 06/27/2017Patient Name: Lilian Nair #: | ENDOSCOPY | | [id number] of : 1935SN: [id number] Type: | | | InpatientRoom: SORProcedure: ERCPIndications: | | | For therapy of ascending cholangitis; 82 yo M with | | | sepsis, elevated LFTs and US showing mary dil and 1.3 cm | | | CBDProviders: BRINTHA | | | Thompson MENDOZA MD (Doctor), JORDY SOLANO, | | | RN (Nurse), ESTELA DAMIAN RN (Extruder Tender)Referring MD: | | | Requesting Provider: Medicines: General | | | Anesthesia, Indomethacin 100 mg PRComplications: No immediate | | | complications.Procedure: Pre-Anesthesia Assessment: | | | - ASA Grade Assessment: III - A patient | | | with severe systemic disease. | | | - After reviewing the risks and benefits, the | | | patient was deemed in satisfactory | | | condition to undergo the procedure. | | | Prior to the procedure, a History and | | | Physical with airway assessment was | | | performed (see patient record), and | | | patient medications and allergies were reviewed. The | | | risks and benefits of the procedure and the sedation | | | options and risks were discussed. All | | | questions were answered and informed | | | consent was obtained. After reviewing | | | the risks and benefits, the patient was deemed | | | in satisfactory condition to undergo the procedure. | | | Immediately prior to administration of | | | medications, the patient was | | | re-assessed for adequacy to receive | | | sedatives. The heart rate, respiratory rate, oxygen | | | saturations, blood pressure, adequacy of pulmonary | | | ventilation, and response to care were | | | monitored throughout the procedure. The | | | physical status of the patient was | | | re-assessed after the procedure. The | | | Olympus TJF-Q180V Duodenoscope #[id number] was | | | introduced through the mouth, and advanced to the | | | duodenum and used to inject contrast into the bile | | | duct. The ERCP was accomplished without | | | difficulty. The patient tolerated the | | | procedure well.Estimated Blood Loss: Estimated blood loss: | | | none.Findings: urgent SOR case for ICU patient with acute | | | cholangitis. The fresh food manager film was normal. The esophagus was | | | successfully intubated under direct vision. The scope was | | | advanced to a normal major papilla in the descending duodenum | | | without detailed examination of the pharynx, larynx and | | | associated structures, and upper GI tract. The upper GI tract was | | | grossly normal. A short 0.035 inch Soft Jagwire was passed into the | | | biliary tree. The short-nosed traction sphincterotome was | | | passed over the guidewire and the bile duct was then deeply | | | cannulated. Contrast was injected. I personally interpreted the | | | bile duct images. Ductal flow of contrast was adequate. Image | | | quality was excellent. Contrast extended to the hepatic ducts. | | | The bile duct was significant pulled to the patient right and | | | angulated. The wire could be advanced to the hepatic ducts. The | | | main bile duct contained four stones, the largest of which was 8 mm | | | in diameter. There was mild biliary dilation. A biliary | | | sphincterotomy was made with a traction (standard) | | | sphincterotome. There was no post-sphincterotomy bleeding. The | | | biliary tree was swept with a 10 mm balloon starting at the | | | bifurcation. Sludge was swept from the duct. Four stones were | | | removed. No stones remained. A 10 mm balloon could be brought | | | through the sphincterotomy with ease. Multiple additional | | | balloon sweeps performed and no additional stones or sludge were | | | found. Negative final occlusion cholangiogram. One 10 Fr by 10 | | | cm plastic biliary stent was placed into the common bile duct. | | | Bile flowed through the stent. The stent was in good position. | | | The ampulla after sphincterotomy had an unusual appearance and | | | was erythematous. Biopsies were taken of this region through | | | the ERCP scope with the cold forceps for histology. The | | | pancreatic duct was neither injected nor cannulated.Impression: | | | - Choledocholithiasis was found. Complete removal was | | | accomplished by biliary sphincterotomy and | | | balloon extraction. No pus found. Given | | | acute cholangitis, 10 Fr stent placed. | | | - Unusual appearance of post | | | sphincterotomy ampulla, bx | | | takenRecommendation: F/u path | | | F/u LFTs and clinically; if he doesnt improve, consider | | | repeating abd US to evaluate gallbaldder | | | Will need ERCP in 4 weeks post d/c to remove stent | | | and clear duct | | | Given that we were in SOR, images were not availableRENE Field | | | MD ERICA06/27/2017 6:48:17 AMNumber of Addenda: 0Note Initiated On: | | | 06/27/2017 6:38 [facility] [address] Letter to: DARYL MARCH MD | | |06/27/2017 6:48:17 AM | | |Number of Addenda: 0 | | |Note Initiated On: 06/27/2017 6:38 AM | | | Letter to: | | | DARYL MARCH MD | | + + + + +---------+ + + | Performing | Address | City/State/Zipcode | Phone Number | | Organization | | | | + +---------+ + + | [facility] | | | | + +---------+ + + IP ENDOSCOPY AFTERHOURS (06/27/2017 6:38 AM PST) + + | Specimen | + + | | + + + + + | Narrative | Performed At | + + + | MRN: | [facility] | | [id number] Date: 06/27/2017Patient Name: Lilian Nair #: | ENDOSCOPY | | [id number] of : 1935SN: [id number] Type: | | | InpatientRoom: SORProcedure: ERCPIndications: | | | For therapy of ascending cholangitis; 82 yo M with | | | sepsis, elevated LFTs and US showing mary dil and 1.3 cm | | | CBDProviders: BRINTHA | | | K. ENESTVEDT, MD (Doctor), JORDY SOLANO, | | | RN (Nurse), ESTELA DAMIAN RN (Extruder Tender)Referring MD: | | | Requesting Provider: Medicines: General | | | Anesthesia, Indomethacin 100 mg PRComplications: No immediate | | | complications.Procedure: Pre-Anesthesia Assessment: | | | - ASA Grade Assessment: III - A patient | | | with severe systemic disease. | | | - After reviewing the risks and benefits, the | | | patient was deemed in satisfactory | | | condition to undergo the procedure. | | | Prior to the procedure, a History and | | | Physical with airway assessment was | | | performed (see patient record), and | | | patient medications and allergies were reviewed. The | | | risks and benefits of the procedure and the sedation | | | options and risks were discussed. All | | | questions were answered and informed | | | consent was obtained. After reviewing | | | the risks and benefits, the patient was deemed | | | in satisfactory condition to undergo the procedure. | | | Immediately prior to administration of | | | medications, the patient was | | | re-assessed for adequacy to receive | | | sedatives. The heart rate, respiratory rate, oxygen | | | saturations, blood pressure, adequacy of pulmonary | | | ventilation, and response to care were | | | monitored throughout the procedure. The | | | physical status of the patient was | | | re-assessed after the procedure. The | | | Olympus TJF-Q180V Duodenoscope #[id number] was | | | introduced through the mouth, and advanced to the | | | duodenum and used to inject contrast into the bile | | | duct. The ERCP was accomplished without | | | difficulty. The patient tolerated the | | | procedure well.Estimated Blood Loss: Estimated blood loss: | | | none.Findings: urgent SOR case for ICU patient with acute | | | cholangitis. The fresh food manager film was normal. The esophagus was | | | successfully intubated under direct vision. The scope was | | | advanced to a normal major papilla in the descending duodenum | | | without detailed examination of the pharynx, larynx and | | | associated structures, and upper GI tract. The upper GI tract was | | | grossly normal. A short 0.035 inch Soft Jagwire was passed into the | | | biliary tree. The short-nosed traction sphincterotome was | | | passed over the guidewire and the bile duct was then deeply | | | cannulated. Contrast was injected. I personally interpreted the | | | bile duct images. Ductal flow of contrast was adequate. Image | | | quality was excellent. Contrast extended to the hepatic ducts. | | | The bile duct was significant pulled to the patient right and | | | angulated. The wire could be advanced to the hepatic ducts. The | | | main bile duct contained four stones, the largest of which was 8 mm | | | in diameter. There was mild biliary dilation. A biliary | | | sphincterotomy was made with a traction (standard) | | | sphincterotome. There was no post-sphincterotomy bleeding. The | | | biliary tree was swept with a 10 mm balloon starting at the | | | bifurcation. Sludge was swept from the duct. Four stones were | | | removed. No stones remained. A 10 mm balloon could be brought | | | through the sphincterotomy with ease. Multiple additional | | | balloon sweeps performed and no additional stones or sludge were | | | found. Negative final occlusion cholangiogram. One 10 Fr by 10 | | | cm plastic biliary stent was placed into the common bile duct. | | | Bile flowed through the stent. The stent was in good position. | | | The ampulla after sphincterotomy had an unusual appearance and | | | was erythematous. Biopsies were taken of this region through | | | the ERCP scope with the cold forceps for histology. The | | | pancreatic duct was neither injected nor cannulated.Impression: | | | - Choledocholithiasis was found. Complete removal was | | | accomplished by biliary sphincterotomy and | | | balloon extraction. No pus found. Given | | | acute cholangitis, 10 Fr stent placed. | | | - Unusual appearance of post | | | sphincterotomy ampulla, bx | | | takenRecommendation: F/u path | | | F/u LFTs and clinically; if he doesnt improve, consider | | | repeating abd US to evaluate gallbaldder | | | Will need ERCP in 4 weeks post d/c to remove stent | | | and mack MENDOZA, | | | MD06/27/2017 6:48:17 AMNumber of Addenda: 0Note Initiated On: 06/27/2017 | | | 6:38 [facility] [address] Letter to: DARYL MARCH MD | | |06/27/2017 6:48:17 AM | | |Number of Addenda: 0 | | |Note Initiated On: 06/27/2017 6:38 AM | | |CC Letter to: | | | DARYL MARCH MD | | + + + + +---------+ + + | Performing | Address | City/State/Zipcode | Phone Number | | Organization | | | | + +---------+ + + | [facility] | | | | + +---------+ + + CO-OXIMETER PANEL, BLOOD (06/27/2017 3:40 AM PST) + + + + + + | Component | Value | Ref Range | Performed | Pathologist | | | | | At | Signature | + + + + + + | TOTAL | 12.2 (L) | 13.5 - 17.5 | [facility] | | | HEMOGLOBIN | | g/dL | LABORATORY | | | | | | SERVICES, | | | | | | CORE | | + + + + + + | OXYHEMOGLOB | 74.2 (L) | 95.0 - 98.0 % | [facility] | | | IN | | | LABORATORY | | | | | | SERVICES, | | | | | | CORE | | + + + + + + | CARBOXYHEMO | 1.1 | <1.6 % | [facility] | | | GLOBIN | | | LABORATORY | | | | | | SERVICES, | | | | | | CORE | | + + + + + + | METHEMOGLOB | <1.0 | <1.5 % | [facility] | | | IN | | | LABORATORY | | | | | | SERVICES, | | | | | | CORE | | + + + + + + | OXYGEN SAT, | 75.6 (L) | 92.0 - 98.0 % | [facility] | | | RODDY | | | LABORATORY | | | | | | SERVICES, | | | | | | CORE | | + + + + + + | DEOXYHEMOGL | 24.0 | % | [facility] | | | OBIN | | | LABORATORY | | | | | | SERVICES, | | | | | | CORE | | + + + + + + + + | Specimen | + + | Blood - Blood | | (substance) | + + + + + | Narrative | Performed At | + + + | Carboxyhemoglobin ranges Nonsmoker: | [facility] | | <1.6% Smokers (1-2 packs/day): 4-5% Smokers (>2 packs/day): | LABORATORY | | 8-9% | [address] | + + + + + + + + | Performing | Address | City/State/Zipcode | Phone Number | | Organization | | | | + + + + + | [facility] | [address] | [place] [address] | | | [place] | [address] | | | + + + + + MAGNESIUM, PLASMA (06/27/2017 12:43 AM PST) + +-------+ + + + | Component | Value | Ref Range | Performed | Pathologist | | | | | At | Signature | + +-------+ + + + | MAGNESIUM,P | 2.3 | 1.6 - 2.6 mg/dL | [facility] [...] At | + + + | Reference range change effective 01/02/17. | [facility] | | | LABORATORY | | | SERVICES, CORE | + + + + + + + + | Performing | Address | City/State/Zipcode | Phone Number | | Organization | | | | + + + + + | [facility] | [address] | [place] [address] | | | SERVICES, CORE | [address] | | | + + + + + CBC (HEMOGRAM) ONLY (06/27/2017 12:43 AM PST) + + + + + + | Component | Value | Ref Range | Performed | Pathologist | | | | | At | Signature | + + + + + + | WHITE CELL | 14.30 (H) | 3.50 - 10.80 | [facility] [...] + + + + | HEMOGLOBIN | 12.0 (L) | 13.5 - 17.5 | [facility] | | | | | g/dL | LABORATORY | | | | | | SERVICES, | | | | | | CORE | | + + + + + + | HEMATOCRIT | 35.9 (L) | 41.0 - 53.0 % | [facility] | | | | | | LABORATORY | | | | | | SERVICES, | | | | | | CORE | | + + + + + + | MCV | 90.4 | 80.0 - 96.0 fL | [facility] | | | | | | LABORATORY | | | | | | SERVICES, | | | | | | CORE | | + + + + + + | MCHC | 33.4 | 33.0 - 35.5 | [facility] | | | | | g/dL | LABORATORY | | | | | | SERVICES, | | | | | | CORE | | + + + + + + | RDW SD | 49.1 (H) | 35.1 - 46.3 fL | [facility] | | | | | | LABORATORY | | | | | | SERVICES, | | | | | | CORE | | + + + + + + | PLATELET | 139 (L) | 150 - 400 K/cu | [facility] | | | COUNT | | mm | LABORATORY | | | | | | SERVICES, | | | | | | CORE | | + + + + + + | MPV | 11.5 | 9.7 - 12.3 fL | [facility] [...] | + + + + + | [facility] | [address] | [place] [address] | | | SERVICES, CORE | [address] | | | + + + + + COMPLETE METABOLIC SET (NA,K,CL,CO2,BUN,CREAT,GLUC,CA,AST,ALT,BILI TOTAL,ALK PHOS,ALB,PROT TOTAL) (06/27/2017 12:43 AM PST) + +---------+ + + + | Component | Value | Ref Range | Performed | Pathologist | | | | | At | Signature | + +---------+ + + + | GLUCOSE, | 153 (H) | 70 - 99 mg/dL | [facility] | | | PLASMA | | | LABORATORY | | | (LAB) | | | SERVICES, | | | | | | CORE | | + +---------+ + + + | BUN, PLASMA | 23 (H) | 6 - 20 mg/dL | [facility] | | | (LAB) | | | LABORATORY | | | | | | SERVICES, | | | | | | CORE | | + +---------+ + + + | CREATININE | 0.94 | 0.70 - 1.30 | [facility] | | | PLASMA | | mg/dL | LABORATORY | | | (LAB) | | | SERVICES, | | | | | | CORE | | + +---------+ + + + | EGFR | >60 | >60 mL/min | [facility] | | | - | | | LABORATORY | | | MALAYSIAN | | | SERVICES, | | | | | | CORE | | + +---------+ + + + | EGFR NON | >60 | >60 mL/min | [facility] | | | -HORACIO | | | LABORATORY | | | RICAN | | | SERVICES, | | | | | | CORE | | + +---------+ + + + | SODIUM, | 142 | 136 - 145 | [facility] | | | PLASMA | | mmol/L | LABORATORY | | | (LAB) | | | SERVICES, | | | | | | CORE | | + +---------+ + + + | POTASSIUM, | 4.6 | 3.4 - 5.0 | [facility] | | | PLASMA | | mmol/L | LABORATORY | | | (LAB) | | | SERVICES, | | | | | | CORE | | + +---------+ + + + | CHLORIDE, | 109 (H) | 97 - 108 mmol/L | [facility] | | | PLASMA | | | LABORATORY | | | (LAB) | | | SERVICES, | | | | | | CORE | | + +---------+ + + + | TOTAL CO2, | 24 | 21 - 32 mmol/L | [facility] | | | PLASMA | | | LABORATORY | | | (LAB) | | | SERVICES, | | | | | | CORE | | + +---------+ + + + | CALCIUM, | 7.6 (L) | 8.6 - 10.2 | [facility] | | | PLASMA | | mg/dL | LABORATORY | | | (LAB) | | | SERVICES, | | | | | | CORE | | + +---------+ + + + | CALCIUM(ALB | 8.6 | 8.6 - 10.2 | [facility] | | | CORRECTED) | | mg/dL | LABORATORY | | | | | | SERVICES, | | | | | | CORE | | + +---------+ + + + | BILIRUBIN | 3.7 (H) | 0.3 - 1.2 mg/dL | [facility] | | | TOTAL | | | LABORATORY | | | | | | SERVICES, | | | | | | CORE | | + +---------+ + + + | TOTAL | 5.4 (L) | 6.4 - 8.2 g/dL | [facility] | | | PROTEIN, | | | LABORATORY | | | PLASMA | | | SERVICES, | | | (LAB) | | | CORE | | + +---------+ + + + | ALBUMIN, | 2.8 (L) | 3.5 - 4.7 g/dL | [facility] | | | PLASMA | | | LABORATORY | | | (LAB) | | | SERVICES, | | | | | | CORE | | + +---------+ + + + | ALK PHOS | 157 (H) | 56 - 119 U/L | [facility] | | | | | | LABORATORY | | | | | | SERVICES, | | | | | | CORE | | + +---------+ + + + | AST(SGOT) | 119 (H) | <=41 U/L | [facility] | | | | | | LABORATORY | | | | | | SERVICES, | | | | | | CORE | | + +---------+ + + + | ALT (SGPT) | 180 (H) | <=60 U/L | [facility] | | | | | | LABORATORY | | | | | | SERVICES, | | | | | | CORE | | + +---------+ + + + | ANION GAP | 9 | 4 - 11 mmol/L | [facility] | | | | | | LABORATORY | | | | | | SERVICES, | | | | | | CORE | | + +---------+ + + + | ANION | 12 (H) | 4 - 11 mmol/L | [facility] | | | GAP(ALB | | | LABORATORY | | | CORRECTED) | | | SERVICES, | | | | | | CORE | | + +---------+ + + + | POTASSIUM | No Hemo | | [facility] | | | CMNT | | | LABORATORY | | | | | | SERVICES, | | | | | | CORE | | + +---------+ + + + | BILI T CMNT | No Hemo | | [facility] | | | | | | LABORATORY | | | | | | SERVICES, | | | | | | CORE | | + +---------+ + + + | AST CMNT | No Hemo | | [facility] | | | | | | LABORATORY | | | | | | SERVICES, | | | | | | CORE | | + +---------+ + + + + + | Specimen | + + | Blood - Blood | | (substance) | + + + + + | Narrative | Performed At | + + + | Adult glucose reference range change effective 7-12-17. GFR is | [facility] | | estimated using the MDRD equation recommended by the National Kidney | LABORATORY | | Disease Education Program. Estimated GFR Interpretive Information: | SERVICES, CORE | | <60 mL/min/1.73 sq m Chronic Kidney Disease | | | <15 mL/min/1.73 sq m Kidney Failure Estimated | | | GFR greater that 60 mL/min/1.73 sq m is of limited clinical value. | | | The MDRD equation is not valid in the following situations: - | | | Patients under 18 years of age - Severe malnutrition or obesity - | | | Vegetarian diet - Rapidly changing kidney function | | + + + + + + + + | Performing | Address | City/State/Zipcode | Phone Number | | Organization | | | | + + + + + | [facility] | [address] | [place] [address] | | | SERVICES, CORE | [address] | | | + + + + + 12 LEAD ECG (06/27/2017 12:32 AM PST) + + + + + + | Component | Value | Ref Range | Performed | Pathologist | | | | | At | Signature | + + + + + + | VENTRICULAR | 58 | bpm | [facility] | | | RATE | | | OF | | | | | | CARDIOLOGY | | + + + + + + | ATRIAL RATE | 0 | ms | [facility] | | | | | | OF | | | | | | CARDIOLOGY | | + + + + + + | P-R | 214 | ms | [facility] | | | INTERVAL | | | OF | | | | | | CARDIOLOGY | | + + + + + + | P AXIS | -9 | deg | [facility] | | | | | | OF | | | | | | CARDIOLOGY | | + + + + + + | QRS | 119 | ms | [facility] | | | DURATION | | | OF | | | | | | CARDIOLOGY | | + + + + + + | QT | 500 | ms | [facility] | | | | | | OF | | | | | | CARDIOLOGY | | + + + + + + | QTC-KAJAL | 492 | ms | [facility] | | | | | | OF | | | | | | CARDIOLOGY | | + + + + + + | R AXIS | 65 | deg | [facility] | | | | | | OF | | | | | | CARDIOLOGY | | + + + + + + | T AXIS | 46 | deg | [facility] | | | | | | OF | | | | | | CARDIOLOGY | | + + + + + + | ECG | Sinus bradycardia | | [facility] | | | IMPRESSION | | | OF | | | | | | CARDIOLOGY | | + + + + + + | ECG | Borderline prolonged DC | | [facility] | | | IMPRESSION | interval | | OF | | | | | | CARDIOLOGY | | + + + + + + | ECG | Incomplete right bundle | | [facility] | | | IMPRESSION | branch block | | OF | | | | | | CARDIOLOGY | | + + + + + + | ECG | Low voltage, extremity | | [facility] | | | IMPRESSION | and precordial leads | | OF | | | | | | CARDIOLOGY | | + + + + + + | ECG | Borderline prolonged QT | | [facility] | | | IMPRESSION | interval- ABNORMAL ECG - | | OF | | | | | | CARDIOLOGY | | + + + + + + | ECG | Electronically signed | | [facility] | | | IMPRESSION | by: FRANKO GARCIA | | OF | | | | 06-28-2017 20:53:58 | | CARDIOLOGY | | + + [...] [facility] | [address] | [place], [place] | | | CARDIOLOGY | [address] | [address] | | + + + + + OUTSIDE BODY - READ REQUEST (06/27/2017 12:00 AM PST) + + | Specimen | + + | | + + + + + | Narrative | Performed At | + + + | EXAM: Professional interpretation only of ultrasound abdomen limited | [facility] | | performed at outside institution DATE OF INTERPRETATION REQUEST: | RADIOLOGY VOICE | | 06/27/17 DATE OF IMAGE ACQUISITION: 06/26/17 HISTORY: Abdominal pain. | RECOGNITION | | Metastatic renal cell carcinoma COMPARISON: None available | | | TECHNIQUE: Ultrasound of the right upper quadrant was performed at | | | an outside institution. Number of images: 59 FINDINGS: LIVER: | | | Left lobe is enlarged and the surface is nodular, with widened | | | fissures and enlarged caudate, concerning for cirrhosis. No focal | | | liver lesion is seen. The main portal vein is patent with antegrade | | | flow. BILIARY: Gallbladder is distended measuring up to 12.8 cm in | | | length. There is diffuse gallbladder wall thickening and some | | | pericholecystic fluid. No definite stones are seen but there is some | | | sludge seen. Sonographic Keita's sign is not documented on these | | | images it is uncertain. The common bile duct measures up to 9 mm. | | | There is mild intrahepatic biliary dilation as well. The level of the | | | pancreatic head there is an apparent filling defect within the common | | | duct measuring up to 17 mm in length concern for choledocholithiasis. | | | PANCREAS: Limited visualized portions of the pancreatic head show | | | are unremarkable. The body and tail of the pancreas are not well seen. | | | Other: No free fluid in the right upper quadrant. IMPRESSION: | | | 1. Gallbladder distention and biliary dilation concerning for | | | distal biliary obstruction due to choledocholithiasis. Malignant | | | obstruction is not excluded and pancreatic CT may be indicated. 2. | | | Probable cirrhosis. I have personally reviewed the images and, | | | if necessary, edited the report. I agree with the report as now | | | presented. | | + + + + --------+ | Procedure Note | + --------+ | Service Account, Radiant Res In Interface - 06/28/2017 9:20 AM PST EXAM: | | Professional interpretation only of ultrasound abdomen limited performed at outside | | institutionDATE OF INTERPRETATION REQUEST: 2/7/18DATE OF IMAGE ACQUISITION: | | 06/26/17HISTORY: Abdominal [...] report as now presented. | + --------+ + +---------+ + + | Performing | Address | City/State/Zipcode | Phone Number | | Organization | | | | + +---------+ + + | [facility] | | | | | VOICE RECOGNITION | | | | + +---------+ + + BLOOD GASES, ARTERIAL - LAB (06/26/2017 10:13 PM PST) + + + + + + | Component | Value | Ref Range | Performed | Pathologist | | | | | At | Signature | + + + + + + | FIO2 | 0.21Comment: temp 36 | | [facility] | | | ARTERIAL | | | LABORATORY | | | | | | SERVICES, | | | | | | CORE | | + + + + + + | PH ARTERIAL | 7.38 | 7.37 - 7.44 | [facility] | | | | | | LABORATORY | | | | | | SERVICES, | | | | | | CORE | | + + + + + + | PCO2 | 40 | 32 - 43 mmHg | [facility] | | | ARTERIAL | | | LABORATORY | | | | | | SERVICES, | | | | | | CORE | | + + + + + + | PO2 | 78 | 72 - 104 mmHg | [facility] | | | ARTERIAL | | | LABORATORY | | | | | | SERVICES, | | | | | | CORE | | + + + + + + | HCO3 | 23 | 21 - 28 mmol/L | [facility] | | | ARTERIAL | | | LABORATORY | | | | | | SERVICES, | | | | | | CORE | | + + + + + + | TOTAL CO2 | 24 | 22 - 28 mmol/L | [facility] | | | ARTERIAL | | | LABORATORY | | | | | | SERVICES, | | | | | | CORE | | + + + + + + | BASE EXCESS | -1.2 | mmol/L | [facility] | | | ARTERIAL | | | LABORATORY | | | | | | SERVICES, | | | | | | CORE | | + + + + + + | O2 SAT, | 96.8 | 92.0 - 98.0 % | [facility] | | | ARTERIAL | | | LABORATORY | | | | | | SERVICES, | | | | | | CORE | | + + + + + + | PAO2/FIO2 | 371 | >300 mmHg | [facility] | | | RATIO | | | LABORATORY | | | [...] + | [facility] | [address] | [place] [address] | | | SERVICES, CORE | [address] | | | + + + + + CAPILLARY BLOOD GLUCOSE (NO CHG), POC (06/26/2017 9:57 PM PST) + +---------+ + + + | Component | Value | Ref Range | Performed | Pathologist | | | | | At | Signature | + +---------+ + + + | BLOOD | 194 (H) | 70 - 99 mg/dL | [facility] - | [...] + + | [facility] | [address] | [place], [place] | | | [facility] | [address] | [address] | | | TESTS | | | | + + + + + X-RAY ABD LTD FEEDING TUBE EVAL (06/26/2017 8:53 PM PST) + + | Specimen | + + | | + + + + + | Narrative | Performed At | + + + | EXAM: Single supine view of the abdomen. History: Feeding tube | [facility] | | placement. Comparison: 06/26/2017 at 11:10 AM IMPRESSION: | RADIOLOGY VOICE | | Wires, leads, and tubing obscure portions of the radiograph. Common | RECOGNITION | | bile duct stent has been placed. Esophagogastric tube extends into the | | | distal stomach, looped upon itself, tip directed proximally in the | | | mid stomach. No evidence of bowel obstruction. I have | | | personally reviewed the images and, if necessary, edited the report. | | | I agree with the report as now presented. | | + + + + + | Procedure Note | + + | Service Account, PushToTest In Interface - 06/27/2017 9:07 AM PST [...] as now presented. | + + + +---------+ + + | Performing | Address | City/State/Zipcode | Phone Number | | Organization | | | | + +---------+ + + | [facility] | | | | | VOICE RECOGNITION | | | | + +---------+ + + CAPILLARY BLOOD GLUCOSE (NO CHG), POC (06/26/2017 6:21 PM PST) + +---------+ + + + | Component | Value | Ref Range | Performed | Pathologist | | | | | At | Signature | + +---------+ + + + | BLOOD | 207 (H) | 70 - 99 mg/dL | [facility] - | [...] | [facility] | [address] | [place], [place] | | | [facility] | [address] | [address] | | | TESTS | | | | + + + + + 12 LEAD ECG (06/26/2017 5:53 PM PST) + + + + + + | Component | Value | Ref Range | Performed | Pathologist | | | | | At | Signature | + + + + + + | VENTRICULAR | 47 | bpm | [facility] | | | RATE | | | OF | | | | | | CARDIOLOGY | | + + + + + + | ATRIAL RATE | 0 | ms | [facility] | | | | | | OF | | | | | | CARDIOLOGY | | + + + + + + | P-R | | ms | [facility] | | | INTERVAL | | | OF | | | | | | CARDIOLOGY | | + + + + + + | P AXIS | | deg | [facility] | | | | | | OF | | | | | | CARDIOLOGY | | + + + + + + | QRS | 130 | ms | [facility] | | | DURATION | | | OF | | | | | | CARDIOLOGY | | + + + + + + | QT | 535 | ms | [facility] | | | | | | OF | | | | | | CARDIOLOGY | | + + + + + + | QTC-BAZETT | 473 | ms | [facility] | | | | | | OF | | | | | | CARDIOLOGY | | + + + + + + | R AXIS | 68 | deg | [facility] | | | | | | OF | | | | | | CARDIOLOGY | | + + + + + + | T AXIS | 21 | deg | [facility] | | | | | | OF | | | | | | CARDIOLOGY | | + + + + + + | ECG | Junctional rhythm | | [facility] | | [...] | | OF | | | | 06-26-2017 20:11:02 | | CARDIOLOGY | | + + [...] | + + + + + | [facility] | [address] | [place], [place] | | | CARDIOLOGY | [address] | [address] | | + + + + + ART LINE (06/26/2017 5:10 PM PST) + + + | Narrative | Performed At | + + + | Reid Hu MD,PhD 06/26/2017 9:12 AM ARTERIAL LINE | | | Performed by: REID HU Authorized by: ALISHA LAGUNAS | | | ART Line Insertion Procedure Note Indications: Beat to beat blood | | | pressure monitoring and Frequent lab draws Procedure location: 7A | | | Providers: Attending name: Attending physically present: No | | | Resident name: Reid Hu Pre-Procedure Consent: written | | | consent not obtained Verbal consent not obtained The procedure was | | | performed in an emergent situation Patient identity confirmed per | | | policy: Yes Team Pause: Immediatly prior to the procedure a pause per | | | protocol was called. A pause verifies correct patient, procedure, | | | equipment, marketing support coordinator and site/side marked as required. | | | CLABSI Prevention Bundle: Insertion site: Right Radial Skin | | | preparation: Chloraprep Protective barrier: Cap, Mask, Hand scrub, | | | Gloves and Partially draped. Sterile Ultrasound Used, Line | | | secured: StatLock and tape Anesthesia Anesthesia: none | | | Procedure Details Patient was placed in appropriate position | | | Catheter size: 20g Line was secured by StatLock and tape | | | Attempts 1 attempt(s) were made. Complications Type: None | | | | | + + + X-RAY ABDOMEN 1 VIEW (06/26/2017 4:52 PM PST) + + | Specimen | + + | | + + + + + | Narrative | Performed At | + + + | - At the time | | | of the study, no professional interpretation was requested. - | | + + + X-RAY FLUOROSCOPY <=1 HOUR (06/26/2017 4:52 PM PST) + + | Specimen | + + | | + + + + + | Narrative | Performed At | + + + | - At the time | | | of the study, no professional interpretation was requested. - | | + + + SURGICAL PATHOLOGY (06/26/2017 4:36 PM PST) + + + + + + | Component | Value | Ref Range | Performed | Pathologist | | | | | At | Signature | + + + + + + | Clinical | The patient is a 82 year | | [facility] | | | History | old male with a history | | DEPARTMENT | | | | of cholangitis. | | OF | | | | Underwent ERCP for | | PATHOLOGY | | | | release of common bile | | | | | | duct stones. | | | | + + + + + + | Final | A. Bile duct ampulla, | | [facility] | Electronically | | Pathologic | biopsies: Duodenal and | | DEPARTMENT | signed by Venu | | Diagnosis | biliary mucosa with | | OF | Louis Fritz, | | | focal erosion Negative | | PATHOLOGY | MDPhD on | | | for malignancy Case | | | 06/28/2017 at | | | seen by:Sudhakar Solis, | | | 12:08 PM | | | MD | | | | | | | | | | | | Pathology ResidentClarkfield | | | | | | Louis Fritz MD PhD / | | | | | | Pathologist My | | | | | | electronic signature | | | | | | indicates that I have | | | | | | personally reviewed all | | | | | | diagnostic slides, the | | | | | | gross and/or microscopic | | | | | | portion of this report | | | | | | and formulated the final | | | | | | diagnosis. | | | | + + + + + + | Gross | Received is one specimen | | [facility] | | | Description | in formalin labeled | | DEPARTMENT | | | | with the patient's name | | OF | | | | (initials FOR) and | | PATHOLOGY | | | | medical record number | | | | | | [id number].A. Bile duct, | | | | | | Bile duct ampula bxs, | | | | | | labeled "BILED | | | | | | | | | | | | A": Received are 5 | | | | | | fragments of | | | | | | erythematous mucosal | | | | | | soft tissue each | | | | | | measuring 0.3 cm. | | | | | | Entirely submitted in | | | | | | A1.(RML) | | | | + + + + + + + + | Specimen | + + | Tissue - Bile duct | | structure (body | | structure) | + + + + + + + | Performing | Address | City/State/Zipcode | Phone Number | | Organization | | | | + + + + + | [facility] | [address] | [place] [address] | | | PATHOLOGY | [address] | | | + + + + + CVL (06/26/2017 4:21 PM PST) + + + | Narrative | Performed At | + + + | Abiodun Rascon MD 06/26/2017 3:22 PM CENTRAL LINE Performed by: | | | ABIODUN RASCON Authorized by: ALISHA LAGUNAS Central Venous Catheter | | | Insertion Procedure Note Pre-Procedure Consent: written consent | | | not obtainedVerbal consent not obtained The procedure was | | | performed in an emergent situation Patient identity confirmed per | | | policy: Yes Team Pause: Immediatly prior to the procedure a pause | | | per protocol was called. A pause verifies correct patient, | | | procedure, equipment, marketing support coordinator and site/side marked as required. | | | CLABSI Prevention Bundle: Insertion site: Right | | | Internal Jugular vein With catheter tip targeted in SVC, see CXR | | | report for confirmation Skin preparation: Chloraprep | | | Protective barrier: Cap, Mask, Hand scrub, Gown, Gloves and Full | | | body drape.Sterile Ultrasound techniques (sterile gel, and sterile | | | probe cover) used Procedure Details Patient was placed in | | | appropriate position The vascular anatomy was identified by | | | Ultrasound Guidance. The modified Seldinger technique (a | | | [id number]-[id number]-kayhrcc-mna-[id number]) was used for | | | vessel cannulation. The wire was visualized with ultrasound in the | | | correct target vessel. Ultrasound no images saved A non-tunneled | | | Triple lumen (size of 7 Fr) catheter with a length of 16 cm was | | | inserted to 15 cm at the skin. All ports aspirated for blood and | | | flushed with Saline Sedation/Anesthesia/Analgesia Analgesia: No | | | Anesthesia: none with ml Indications: Frequent lab draws, | | | Inadequate peripheral venous access and Administration of vasoactive | | | medication Procedure location: Providers: Attending name: | | | Attending physically present: Yes Fellow name: Ran Ran Monitoring | | | The patients vital signs were monitored by EKG, SaO2 and NIBP during | | | the procedure. For details see EMR. Attempts 1 attempt(s) were | | | madeIndications: Frequent lab draws, Inadequate peripheral venous | | | access and Administration of vasoactive medication | | + + + CALCIUM, IONIZED, WHOLE BLOOD (06/26/2017 3:39 PM PST) + + + + + + | Component | Value | Ref Range | Performed | Pathologist | | | | | At | Signature | + + + + + + | RODDY ICA, | 1.09 (L) | 1.14 - 1.32 | [facility] | | | WHOLE BLD | | mmol/L | LABORATORY | | | | | | SERVICES, | | | | | | CORE | | + + + + + + | PH, WHOLE | 7.37 | | [facility] | | | BLOOD | | | LABORATORY | | | | | | SERVICES, | | | | | | CORE | | + + + + + + | ICA, | 1.07 (L) | 1.14 - 1.28 | [facility] | | | CORRECTED | | mmol/L | LABORATORY | | | TO PH 7.4 | | | SERVICES, | | | | | | CORE | | + + + + + + + + | Specimen | + + | Blood - Blood | | (substance) | + + + + + + + | Performing | Address | City/State/Zipcode | Phone Number | | Organization | | | | + + + + + | [facility] | [address] | [place] [address] | | | SERVICES, CORE | [address] | | | + + + + + CBC (HEMOGRAM) ONLY (06/26/2017 3:39 PM PST) + + + + + + | Component | Value | Ref Range | Performed | Pathologist | | | | | At | Signature | + + + + + + | WHITE CELL | 14.41 (H) | 3.50 - 10.80 | [facility] | | | COUNT | | K/cu mm | LABORATORY | | | | | | SERVICES, | | | | | | CORE | | + + + + + + | RED CELL | 4.17 (L) | 4.50 - 6.00 | [facility] | | | COUNT | | M/cu mm | LABORATORY | | | | | | SERVICES, | | | | | | CORE | | + + + + + + | HEMOGLOBIN | 12.4 (L) | 13.5 - 17.5 | [facility] | | | | | g/dL | LABORATORY | | | | | | SERVICES, | | | | | | CORE | | + + + + + + | HEMATOCRIT | 37.8 (L) | 41.0 - 53.0 % | [facility] | | | | | | LABORATORY | | | | | | SERVICES, | | | | | | CORE | | + + + + + + | MCV | 90.6 | 80.0 - 96.0 fL | [facility] | | | | | | LABORATORY | | | | | | SERVICES, | | | | | | CORE | | + + + + + + | MCHC | 32.8 | 33.0 - 35.5 | [facility] | | | | | g/dL | LABORATORY | | | | | | SERVICES, | | | | | | CORE | | + + + + + + | RDW SD | 48.2 (H) | 35.1 - 46.3 fL | [facility] | | | | | | LABORATORY | | | | | | SERVICES, | | | | | | CORE | | + + + + + + | PLATELET | 127 (L) | 150 - 400 K/cu | [...] | [facility] | [address] | [place] [address] | | | SERVICES, CORE | [address] | | | + + + + + LACTATE (06/26/2017 3:39 PM PST) + +-------+ + + + | Component | Value | Ref Range | Performed | Pathologist | | | | | At | Signature | + +-------+ + + + | LACTATE | 1.3 | mmol/L | [facility] | | | | | | LABORATORY | | | | | | SERVICES, | | | | | | CORE | | + +-------+ + + + + + | Specimen | + + | Blood - Blood | | (substance) | + + + + + | Narrative | Performed At | + + + | Reference Range: Venous blood: 0.5 - 2.2 mmol/L Critical | [facility] | | >= 4.0 mmol/L Arterial blood: 0.5 - 1.6 mmol/L Critical >= 4.0 | LABORATORY | | mmol/L | SERVICES, CORE | + + + + + + + + | Performing | Address | City/State/Zipcode | Phone Number | | Organization | | | | + + + + + | [facility] | [address] | [place] [address] | | | SERVICES, CORE | [address] | | | + + + + + TROPONIN I, PLASMA (06/26/2017 3:39 PM PST) + +-------+ + + + | Component | Value | Ref Range | Performed | Pathologist | | | | | At | Signature | + +-------+ + + + | TROPONIN I | 0.25 | <0.80 ng/mL | [facility] | | | | | [...] | + + + + + | [facility] | [address] | [place] [address] | | | SERVICES, CORE | [address] | | | + + + + + COMPLETE METABOLIC SET (NA,K,CL,CO2,BUN,CREAT,GLUC,CA,AST,ALT,BILI TOTAL,ALK PHOS,ALB,PROT TOTAL) (06/26/2017 3:39 PM PST) + +---------+ + + + | Component | Value | Ref Range | Performed | Pathologist | | | | | At | Signature | + +---------+ + + + | GLUCOSE, | 195 (H) | 70 - 99 mg/dL | [...] +---------+ + + + | CREATININE | 0.85 | 0.70 - 1.30 | [facility] | | | PLASMA | | mg/dL | LABORATORY | | | (LAB) | | | SERVICES, | | | | | | CORE | | + +---------+ + + + | EGFR | >60 | >60 mL/min | [facility] | | | - | | | LABORATORY | | | MALAYSIAN | | | SERVICES, | | | | | | CORE | | + +---------+ + + + | EGFR NON | >60 | >60 mL/min | [facility] | | | -HORACIO | | | LABORATORY | | | RICAN | | | SERVICES, | | | | | | CORE | | + +---------+ + + + | SODIUM, | 140 | 136 - 145 | [facility] | | | PLASMA | | mmol/L | LABORATORY | | | (LAB) | | | SERVICES, | | | | | | CORE | | + +---------+ + + + | POTASSIUM, | 4.7 | 3.4 - 5.0 | [facility] | | | PLASMA | | mmol/L | LABORATORY | | | (LAB) | | | SERVICES, | | | | | | CORE | | + +---------+ + + + | CHLORIDE, | 110 (H) | 97 - 108 mmol/L | [facility] | | | PLASMA | | | LABORATORY | | | (LAB) | | | SERVICES, | | | | | | CORE | | + +---------+ + + + | TOTAL CO2, | 24 | 21 - 32 mmol/L | [facility] | | | PLASMA | | | LABORATORY | | | (LAB) | | | SERVICES, | | | | | | CORE | | + +---------+ + + + | CALCIUM, | 7.4 (L) | 8.6 - 10.2 | [facility] | | | PLASMA | | mg/dL | LABORATORY | | | (LAB) | | | SERVICES, | | | | | | CORE | | + +---------+ + + + | CALCIUM(ALB | 8.4 (L) | 8.6 - 10.2 | [facility] | | | CORRECTED) | | mg/dL | LABORATORY | | | | | | SERVICES, | | | | | | CORE | | + +---------+ + + + | BILIRUBIN | 3.8 (H) | 0.3 - 1.2 mg/dL | [facility] | | | TOTAL | | | LABORATORY | | | | | | SERVICES, | | | | | | CORE | | + +---------+ + + + | TOTAL | 5.4 (L) | 6.4 - 8.2 g/dL | [facility] | | | PROTEIN, | | | LABORATORY | | | PLASMA | | | SERVICES, | | | (LAB) | | | CORE | | + +---------+ + + + | ALBUMIN, | 2.8 (L) | 3.5 - 4.7 g/dL | [facility] | | | PLASMA | | | LABORATORY | | | (LAB) | | | SERVICES, | | | | | | CORE | | + +---------+ + + + | ALK PHOS | 173 (H) | 56 - 119 U/L | [facility] | | | | | | LABORATORY | | | | | | SERVICES, | | | | | | CORE | | + +---------+ + + + | AST(SGOT) | 144 (H) | <=41 U/L | [facility] | | | | | | LABORATORY | | | | | | SERVICES, | | | | | | CORE | | + +---------+ + + + | ALT (SGPT) | 197 (H) | <=60 U/L | [facility] | | | | | | LABORATORY | | | | | | SERVICES, | | | | | | CORE | | + +---------+ + + + | ANION GAP | 6 | 4 - 11 mmol/L | [facility] | | | | | | LABORATORY | | | | | | SERVICES, | | | | | | CORE | | + +---------+ + + + | ANION | 9 | 4 - 11 mmol/L | [facility] | | | GAP(ALB | | | LABORATORY | | | CORRECTED) | | | SERVICES, | | | | | | CORE | | + +---------+ + + + | POTASSIUM | No Hemo | | [facility] | | | CMNT | | | LABORATORY | | | | | | SERVICES, | | | | | | CORE | | + +---------+ + + + | BILI T CMNT | No Hemo | | [facility] | | | | | | LABORATORY | | | | | | SERVICES, | | | | | | CORE | | + +---------+ + + + | AST CMNT | No Hemo | | [facility] | | | | | | LABORATORY | | | | | | SERVICES, | | | | | | CORE | | + +---------+ + + + + + | Specimen | + + | Blood - Blood | | (substance) | + + + + + | Narrative | Performed At | + + + | Adult glucose reference range change effective 7-17. GFR is | [facility] | | estimated using the MDRD equation recommended by the [employer] | LABORATORY | | Disease Education Program. Estimated GFR Interpretive Information: | SERVICES, CORE | | <60 mL/min/1.73 sq m Chronic Kidney Disease | | | <15 mL/min/1.73 sq m Kidney Failure Estimated | | | GFR greater that 60 mL/min/1.73 sq m is of limited clinical value. | | | The MDRD equation is not valid in the following situations: - | | | Patients under 18 years of age - Severe malnutrition or obesity - | | | Vegetarian diet - Rapidly changing kidney function | | + + + + + + + + | Performing | Address | City/State/Zipcode | Phone Number | | Organization | | | | + + + + + | [facility] | [address] | [place] [address] | | | SERVICES, CORE | [address] | | | + + + + + 12 LEAD ECG (06/26/2017 3:37 PM PST) + + + + + + | Component | Value | Ref Range | Performed | Pathologist | | | | | At | Signature | + + + + + + | VENTRICULAR | 45 | bpm | [facility] | | | RATE | | | OF | | | | | | CARDIOLOGY | | + + + + + + | ATRIAL RATE | 45 | ms | [facility] | | | | | | OF | | | | | | CARDIOLOGY | | + + + + + + | P-R | 193 | ms | [facility] | | | INTERVAL | | | OF | | | | | | CARDIOLOGY | | + + + + + + | P AXIS | -66 | deg | [facility] | | | | | | OF | | | | | | CARDIOLOGY | | + + + + + + | QRS | 122 | ms | [facility] | | | DURATION | | | OF | | | | | | CARDIOLOGY | | + + + + + + | QT | 561 | ms | [facility] | | | | | | OF | | | | | | CARDIOLOGY | | + + + + + + | QTC-MOIZTT | 486 | ms | [facility] | | | | | | OF | | | | | | CARDIOLOGY | | + + + + + + | R AXIS | 82 | deg | [facility] | | | | | | OF | | | | | | CARDIOLOGY | | + + + + + + | T AXIS | -10 | deg | [facility] | | | | | | OF | | | | | | CARDIOLOGY | | + + + + + + | ECG | Sinus or ectopic atrial | | [facility] | | | IMPRESSION | bradycardia | | OF | | | | [...] | | OF | | | | 06-26-2017 16:07:42 | | CARDIOLOGY | | + + [...] + + + + + | [facility] | [address] | [place], [place] | | | CARDIOLOGY | [facility] | [address] | | + + + + + BLOOD GASES, ARTERIAL - LAB (06/26/2017 2:01 PM PST) + + + + + + | Component | Value | Ref Range | Performed | Pathologist | | | | | At | Signature | + + + + + + | FIO2 | 0.25 | | [facility] | | | ARTERIAL | | | LABORATORY | | | | | | SERVICES, | | | | | | CORE | | + + + + + + | PH ARTERIAL | 7.33 (L) | 7.37 - 7.44 | [facility] | | | | | | LABORATORY | | | | | | SERVICES, | | | | | | CORE | | + + + + + + | PCO2 | 46 (H) | 32 - 43 mmHg | [facility] | | | ARTERIAL | | | LABORATORY | | | | | | SERVICES, | | | | | | CORE | | + + + + + + | PO2 | 87 | 72 - 104 mmHg | [facility] | | | ARTERIAL | | | LABORATORY | | | | | | SERVICES, | | | | | | CORE | | + + + + + + | HCO3 | 24 | 21 - 28 mmol/L | [facility] | | | ARTERIAL | | | LABORATORY | | | | | | SERVICES, | | | | | | CORE | | + + + + + + | TOTAL CO2 | 25 | 22 - 28 mmol/L | [facility] | | | ARTERIAL | | | LABORATORY | | | | | | SERVICES, | | | | | | CORE | | + + + + + + | BASE EXCESS | -1.8 | mmol/L | [facility] | | | ARTERIAL | | | LABORATORY | | | | | | SERVICES, | | | | | | CORE | | + + + + + + | O2 SAT, | 97.0 | 92.0 - 98.0 % | [facility] | | | ARTERIAL | | | LABORATORY | | | | | | SERVICES, | | | | | | CORE | | + + + + + + | PAO2/FIO2 | 348 | >300 mmHg | [facility] | | | RATIO | | | LABORATORY | | | [...] | [facility] | [address] | [place] [address] | | | SERVICES, CORE | [address] | | | + + + + + VITAMIN D, 25-HYDROXY, SERUM (06/26/2017 2:01 PM PST) + +---------+ + + + | Component | Value | Ref Range | Performed | Pathologist | | | | | At | Signature | + +---------+ + + + | VITAMIN D | 8.3 (L) | 30 - 80 [...] | + + + + + | [facility] | [address] | [place] [address] | | | [address] | [address] | | | + + + + + RAINBOW HOLD TUBE - BLUE TOP (06/26/2017 11:53 AM PST) + + | Specimen | + + | Blood - Blood | | (substance) | + + + + + + + | Performing | Address | City/State/Zipcode | Phone Number | | Organization | | | | + + + + + | [facility] | [address] | [place] [address] | | | [address] | [address] | | | + + + + + X-RAY ABD LTD FEEDING TUBE EVAL (06/26/2017 11:16 AM PST) + + | Specimen | + + | | + + + + + | Narrative | Performed At | + + + | INDICATION: Study to evaluate feeding tube position TECHNIQUE: | [facility] | | Single AP view of the upper abdomen COMPARISON: Plain films | RADIOLOGY VOICE | | performed earlier same day FINDINGS/IMPRESSION: Interval removal | RECOGNITION | | of the feeding tube seen earlier in the esophagus, with placement of | | | a weighted tip feeding tube with the tip and sidehole in the gastric | | | body. Tracheal tube and central line are stable in position. I | | | have personally reviewed the images and, if necessary, edited the | | | report. I agree with the report as now presented. | | + + + + + | Procedure Note | + + | Service Account, [employer] Res In Interface - 06/26/2017 12:57 PM PST INDICATION: Study | | to evaluate feeding tube positionTECHNIQUE: Single AP view of the upper | | abdomenCOMPARISON:Plain films performed earlier same dayFINDINGS/IMPRESSION: Interval | | removal of the feeding tube seen earlier in the esophagus, with placement of a weighted | | tip feeding tube with the tip and sidehole in the gastric body.Tracheal tube and central | | line are stable in position.I have personally reviewed the images and, if necessary, | | edited the report. I agree with the report as now presented. | |Plain films performed earlier same day | | | |FINDINGS/IMPRESSION: | |Interval removal of the feeding tube seen earlier in the esophagus, with placement of a joaquim ghted tip feeding tube with the tip and sidehole in the gastric body. | |Tracheal tube and central line are stable in position. | | | | | |I have personally reviewed the images and, if necessary, edited the report. I agree with t he report as now presented. | + + + +---------+ + + | Performing | Address | City/State/Zipcode | Phone Number | | Organization | | | | + +---------+ + + | [facility] | | | | | VOICE RECOGNITION | | | | + +---------+ + + COAGULOPATHY PANEL (INR,APTT,FIBRINOGEN) (06/26/2017 11:13 AM PST) + + + + + + | Component | Value | Ref Range | Performed | Pathologist | | | | | At | Signature | + + + + + + | INR | 1.34 (H) | 0.90 - 1.20 INR | [facility] | | | | | | LABORATORY | | | | | | SERVICES, | | | | | | CORE | | + + + + + + | APTT | 32.5 | 26.0 - 36.0 | [facility] | | | | | seconds | LABORATORY | | | | | | SERVICES, | | | | | | CORE | | + + + + + + | FIBRINOGEN | 362 | 200 - 450 mg/dL | [facility] | | | LEVEL | | | LABORATORY | | | [...] with mech. valves (2.5 - 3.5) INR APTT | SERVICES, CORE | | Therapeutic Range: (75 - 120) sec | | | Heparin levels of 0.35 - 0.7 U/mL | | + + + + + + + + | Performing | Address | City/State/Zipcode | Phone Number | | Organization | | | | + + + + + | [facility] | [address] | [place] [address] | | | SERVICES, CORE | [address] | | | + + + + + X-RAY ABD LTD FEEDING TUBE EVAL (06/26/2017 10:03 AM PST) + + | Specimen | + + | | + + + + + | Narrative | Performed At | + + + | EXAM: ABD LTD FEEDING TUBE EVAL HISTORY: Feeding tube | [facility] | | evaluation. COMPARISON: Plain films performed earlier same day | RADIOLOGY VOICE | | IMPRESSION: Feeding tube terminates in the lower esophagus, | RECOGNITION | | near the gastroesophageal junction, with proximal sidehole in the | | | midesophagus. Tracheal tube and central catheter are stable in | | | position. I have personally reviewed the images and, if | | | necessary, edited the report. I agree with the report as now | | | presented. | | + + + + ----+ | Procedure Note | + ----+ | Service Account, [employer] Res In Interface - 06/26/2017 12:57 PM PST EXAM: ABD LTD | | FEEDING TUBE EVALHISTORY: Feeding tube evaluation.COMPARISON: Plain films performed | | earlier same dayIMPRESSION: Feeding tube terminates in the lower esophagus, near the | | gastroesophageal junction, with proximal sidehole in the midesophagus. Tracheal tube and | | central catheter are stable in position.I have personally reviewed the images and, if | | necessary, edited the report. I agree with the report as now presented. | |IMPRESSION: | |Feeding tube terminates in the lower esophagus, near the gastroesophageal junction, with pr oximal sidehole in the midesophagus. Tracheal tube and central catheter are stable in positi on. | | | | | |I have personally reviewed the images and, if necessary, edited the report. I agree with t he report as now presented. | + ----+ + +---------+ + + | Performing | Address | City/State/Zipcode | Phone Number | | Organization | | | | + +---------+ + + | [facility] | | | | | VOICE RECOGNITION | | | | + +---------+ + + X-RAY ABD LTD FEEDING TUBE EVAL (06/26/2017 10:02 AM PST) + + | Specimen | + + | | + + + + + | Narrative | Performed At | + + + | EXAM: ABD LTD FEEDING TUBE EVAL HISTORY: Feeding tube | [facility] | | evaluation. COMPARISON: Plain films performed earlier same day. | RADIOLOGY VOICE | | IMPRESSION: Feeding tube terminates in the lower esophagus, | RECOGNITION | | just above the gastroesophageal junction, with proximal sidehole in | | | the midesophagus. Tracheal tube and central catheter are stable in | | | position. I have personally reviewed the images and, if | | | necessary, edited the report. I agree with the report as now | | | presented. | | + + + + + | Procedure Note | + + | Service Account, [employer] Res In Interface - 06/26/2017 12:55 PM PST EXAM: ABD LTD | | FEEDING TUBE EVALHISTORY: Feeding tube evaluation.COMPARISON: Plain films performed | | earlier same day.IMPRESSION: Feeding tube terminates in the lower esophagus, just above | | the gastroesophageal junction, with proximal sidehole in the midesophagus. Tracheal | | tube and central catheter are stable in position.I have personally reviewed the images | | and, if necessary, edited the report. I agree with the report as now presented. | |IMPRESSION: | |Feeding tube terminates in the lower esophagus, just above the gastroesophageal junction, w ith proximal sidehole in the midesophagus. Tracheal tube and central catheter are stable in position. | | | | | |I have personally reviewed the images and, if necessary, edited the report. I agree with t he report as now presented. | + + + +---------+ + + | Performing | Address | City/State/Zipcode | Phone Number | | Organization | | | | + +---------+ + + | [facility] | | | | | VOICE RECOGNITION | | | | + +---------+ + + X-RAY ABD LTD FEEDING TUBE EVAL (06/26/2017 10:02 AM PST) + + | Specimen | + + | | + + + + + | Narrative | Performed At | + + + | EXAM: ABD LTD FEEDING TUBE EVAL HISTORY: Feeding tube | [facility] | | evaluation. COMPARISON: None. IMPRESSION: Feeding tube | RADIOLOGY VOICE | | terminates in the lower esophagus, just above the gastroesophageal | RECOGNITION | | junction, with proximal sidehole in the midesophagus. I have | | | personally reviewed the images and, if necessary, edited the report. | | | I agree with the report as now presented. | | + + + + + | Procedure Note | + + | Service Account, [employer] Res In Interface - 06/26/2017 12:53 PM PST EXAM: ABD LTD | | FEEDING TUBE EVALHISTORY: Feeding tube evaluation.COMPARISON: None.IMPRESSION: | | Feeding tube terminates in the lower esophagus, just above the gastroesophageal | | junction, with proximal sidehole in the midesophagus.I have personally reviewed the | | images and, if necessary, edited the report. I agree with the report as now presented. | | | |IMPRESSION: | |Feeding tube terminates in the lower esophagus, just above the gastroesophageal junction, w ith proximal sidehole in the midesophagus. | | | | | |I have personally reviewed the images and, if necessary, edited the report. I agree with t he report as now presented. | + + + +---------+ + + | Performing | Address | City/State/Zipcode | Phone Number | | Organization | | | | + +---------+ + + | [facility] | | | | | VOICE RECOGNITION | | | | + +---------+ + + X-RAY CHEST 1 VIEW (06/26/2017 10:02 AM PST) + + | Specimen | + + | | + + + + + | Narrative | Performed At | + + + | STUDY: CHEST 1 VIEW 06/26/17 09:05:50 COMPARISON: None. | [facility] | | HISTORY: Line placement. COPD. Anemia. Respiratory difficulty. | RADIOLOGY VOICE | | FINDINGS: Support equipment: Intubated patient with ET tube | RECOGNITION | | terminating 7 cm above ray. NG tube barely extends beyond the GE | | | junction with the side port approximately 7 cm proximal. Right IJ | | | central line terminates in the proximal SVC. Lungs: Irregular | | | right lung base opacity likely atelectasis. Otherwise, no confluent | | | parenchymal lung opacities. Mild infrahilar airways thickening. | | | Pleura: No pleural effusion or pneumothorax. Cardiomediastinal: | | | Cardiac size at the upper limits of normal. No pulmonary edema. | | | Aortic vascular calcification. Musculoskeletal: No acute osseous | | | abnormality. IMPRESSION: 1. ET tube terminates 7 cm above | | | ray. 2. NG tube barely extends beyond the GE junction; this | | | could be advanced for more optimal positioning. 3. Mild infrahilar | | | airways thickening can be seen with reactive airways disease or | | | bronchitis. Right lung base atelectasis. I have personally | | | reviewed the images and, if necessary, edited the report. I agree | | | with the report as now presented. | | + + + + + | Procedure Note | + + | Service Account, [employer] Res In Interface - 06/26/2017 10:12 AM PST [...] as now presented. | + + + +---------+ + + | Performing | Address | City/State/Zipcode | Phone Number | | Organization | | | | + +---------+ + + | [facility] | | | | | VOICE RECOGNITION | | | | + +---------+ + + CONFIRMATORY ABO/RH (06/26/2017 9:40 AM PST) + + + + + [...] | + + + + + | [facility] | [address] | [place] [address] | | | SERVICES, | [address] | | | | TRANSFUSION MEDICINE | | | | + + + + + ANTIBODY SCREEN (06/26/2017 9:40 AM PST) + + + + + [...] | [facility] | [address] | [place] [address] | | | SERVICES, | [address] | | | | TRANSFUSION MEDICINE | | | | + + + + + ABO & RH TYPE (06/26/2017 9:40 AM PST) + + + + + [...] | + + + + + | [facility] | [address] | [place] [address] | | | SERVICES, | [address] | | | | TRANSFUSION MEDICINE | | | | + + + + + 12 LEAD ECG (06/26/2017 9:39 AM PST) + + + + + + | Component | Value | Ref Range | Performed | Pathologist | | | | | At | Signature | + + + + + + | VENTRICULAR | 76 | bpm | [facility] | | | RATE | | | OF | | | | | | CARDIOLOGY | | + + + + + + | ATRIAL RATE | 77 | ms | [facility] | | | | | | OF | | | | | | CARDIOLOGY | | + + + + + + | P-R | 223 | ms | [facility] | | | INTERVAL | | | OF | | | | | | CARDIOLOGY | | + + + + + + | P AXIS | 13 | deg | [facility] | | | | | | OF | | | | | | CARDIOLOGY | | + + + + + + | QRS | 145 | ms | [facility] | | | DURATION | | | OF | | | | | | CARDIOLOGY | | + + + + + + | QT | 469 | ms | [facility] | | | | | | OF | | | | | | CARDIOLOGY | | + + + + + + | QTC-MOIZTT | 528 | ms | [facility] | | | | | | OF | | | | | | CARDIOLOGY | | + + + + + + | R AXIS | 78 | deg | [facility] | | | | | | OF | | | | | | CARDIOLOGY | | + + + + + + | T AXIS | 42 | deg | [facility] | | [...] + + + + | ECG | Prolonged DC interval | | [facility] | | | [...] | | OF | | | | 06-26-2017 11:23:50 | | CARDIOLOGY | | + + [...] [facility] | [address] | [place], [place] | | | CARDIOLOGY | [address] | [address] | | + + + + + BLOOD CULTURE WORKUP (06/26/2017 9:39 AM PST) + + + + + + | Component | Value | Ref Range | Performed | Pathologist | | | | | At | Signature | + + + + + + | CULTURE | Klebsiella oxytoca (A) | | [facility] - | | | RESULT | | | [facility] | | | | | | [place] | | + + + + + + + + | Specimen | + + | Blood - Central | | venous catheter, | | device (physical | | object) | + + + + + | Narrative | Performed At | + + + | Culture Report: Klebsiella oxytoca Refer to culture collected | [facility] - | | 06/26/17 at 0939 for susceptibilities Growth in Aerobic bottle | [facility] - | | Growth in Anaerobic bottle | [place] | + + + + + + + + | Performing | Address | City/State/Zipcode | Phone Number | | Organization | | | | + + + + + | [facility] | [address] | [place] [address] | | | [place] | | | | + + + + + BLOOD CULTURE WORKUP (06/26/2017 9:39 AM PST) + + + + + + | Component | Value | Ref Range | Performed | Pathologist | | | | | At | Signature | + + + + + + | CULTURE | Klebsiella oxytoca (A) | | [facility] - | | | RESULT | | | [facility] - | | | | | | [place] | | + + + + + + + + | Specimen | + + | Blood - Arterial | | line (physical | | object) | + + + + + | Narrative | Performed At | + + + | Culture Report: Klebsiella oxytoca Growth in Aerobic bottle | [facility] - | | Growth in Anaerobic bottle | [facility] - | | | [place] | + + + + + + + + | Organism | Antibiotic | Method | Susceptibility | + + + + + | Klebsiella oxytoca | Amoxicillin/Clavulan | SUSCEPTIBILITY-FARIHA | Sensitive | | | ate | | | + + + + + | Klebsiella oxytoca | Ampicillin | SUSCEPTIBILITY-FARIHA | Resistant | + + + + + | Klebsiella oxytoca | Cefazolin | SUSCEPTIBILITY-FARIHA | Resistant | + + + + + | Klebsiella oxytoca | Ceftriaxone | SUSCEPTIBILITY-FARIHA | Sensitive | + + + + + | Klebsiella oxytoca | Ciprofloxacin | SUSCEPTIBILITY-FARIHA | Sensitive | + + + + + | Klebsiella oxytoca | Gentamicin | SUSCEPTIBILITY-FARIHA | Sensitive | + + + + + | Klebsiella oxytoca | Piperacillin/Tazobac | SUSCEPTIBILITY-FARIHA | Sensitive | | | davila | | | + + + + + | Klebsiella oxytoca | Tobramycin | SUSCEPTIBILITY-FARIHA | Sensitive | + + + + + | Klebsiella oxytoca | Trimethoprim/Sulfa | SUSCEPTIBILITY-FARIHA | Sensitive | + + + + + + + + + + | Performing | Address | City/State/Zipcode | Phone Number | | Organization | | | | + + + + + | [facility] | [address] | [place] [address] | | | [place] | | | | + + + + + CULTURE, BLOOD BACTI & YEAST [facility] (06/26/2017 9:39 AM PST) + + + + + + | Component | Value | Ref Range | Performed | Pathologist | | | | | At | Signature | + + + + + + | CULTURE | Not tested by molecular | | [facility] | | | RESULT | method, see culture | | LABORATORY | | | | report. (AA) | | SERVICES, | | | | | | CORE | | + + + + + + | GRAM STAIN | Gram negative bacilli | | [facility] | | | | | | LABORATORY | | | | | | SERVICES, | | | | | | CORE | | + + + + + + + + | Specimen | + + | Blood - Central | | venous catheter, | | device (physical | | object) | + + + + + | Narrative | Performed At | + + + | Growth in Aerobic Bottle. Growth in Anaerobic Bottle. | [facility] | | | LABORATORY | | | SERVICES, CORE | + + + + + + + + | Performing | Address | City/State/Zipcode | Phone Number | | Organization | | | | + + + + + | [facility] | [address] | [place] [address] | | | SERVICES, CORE | [address] | | | + + + + + RBC MORPHOLOGY (06/26/2017 9:39 AM PST) + + + + + + | Component | Value | Ref Range | Performed | Pathologist | | | | | At | Signature | + + + + + + | ANISOCYTOSI | 1+(10-25cells/HPF) | | [facility] | | | S | | | LABORATORY | | | | | | SERVICES, | | | | | | CORE | | + + + + + + | MACROCYTOSI | 1+(10-25cells/HPF) | | [facility] | | | S | | | LABORATORY | | | | | | SERVICES, | | | | | | CORE | | + + + + + + | POLYCHROMAS | 1+ (<1-2cells/HPF) | | [facility] | | | IA | | | LABORATORY | | | [...] + + | [facility] | [address] | [place] [address] | | | SERVICES, CORE | [address] | | | + + + + + MANUAL DIFFERENTIAL (06/26/2017 9:39 AM PST) + + + + + + | Component | Value | Ref Range | Performed | Pathologist | | | | | At | Signature | + + + + + + | NEUTROPHIL | 96.5 (H) | 50.0 - 70.0 % | [facility] | | | % | | | LABORATORY | | | | | | SERVICES, | | | | | | CORE | | + + + + + + | LYMPHOCYTE | 1.8 (L) | 18.0 - 42.0 % | [facility] | | | % | | | LABORATORY | | | | | | SERVICES, | | | | | | CORE | | + + + + + + | MONOCYTE % | 1.7 (L)Comment: Some | 3.5 - 9.0 % | [facility] | | | | Monocytes appear | | LABORATORY | | | | immature on scan. | | SERVICES, | | | | | | CORE | | + + + + + + | EOSINOPHIL | 0.0 (L) | 1.0 - 3.0 % | [facility] | | | % | | | LABORATORY | | | | | | SERVICES, | | | | | | CORE | | + + + + + + | BASOPHIL % | 0.0 | 0.0 - 2.0 % | [facility] | | | | | | LABORATORY | | | | | | SERVICES, | | | | | | CORE | | + + + + + + | IG% | 0.0Comment: Increased | 0.0 - 1.0 % | [facility] | | | | immature | | LABORATORY | | | | granulocytes(IG)define a | | SERVICES, | | | | left shift.IGs include | | CORE | | | | metamyelocytes, | | | | | | myelocytes and | | | | | | promyelocytes. Bands are | | | | | | included in the | | | | | | neutrophil count, not | | | | | | the IG count, except in | | | | | | neonates <=60 days old | | | | | | where bands are reported | | | | | | in a manual diff. | | | | + + + + + + | NEUTROPHIL | 17.82 (H) | 1.80 - 7.70 | [facility] | | | # | | K/cu mm | LABORATORY | | | | | | SERVICES, | | | | | | CORE | | + + + + + + | LYMPHOCYTE | 0.33 (L) | 1.00 - 4.80 | [facility] | | | # | | K/cu mm | LABORATORY | | | | | | SERVICES, | | | | | | CORE | | + + + + + + | MONOCYTE # | 0.31 | 0.10 - 0.90 | [facility] | | | | | K/cu mm | LABORATORY | | | | | | SERVICES, | | | | | | CORE | | + + + + + + | EOSINOPHIL | 0.00 | 0.00 - 0.50 | [facility] | | | # | | K/cu mm | LABORATORY | | | | | | SERVICES, | | | | | | CORE | | + + + + + + | BASOPHIL # | 0.00 | 0.00 - 0.10 | [facility] | | | | | K/cu mm | LABORATORY | | | | | | SERVICES, | | | | | | CORE | | + + + + + + | IG# | 0.00 | 0.00 - 0.10 | [facility] | | | | | K/cu mm | LABORATORY | | | | | | SERVICES, | | | | | | CORE | | + + + + + + + + | Specimen | + + | Blood - Blood | | (substance) | + + + + + | Narrative | Performed At | + + + | New reference ranges for IG% and IG# effective 06/10/2017. | [facility] | | Increased immature granulocytes(IG)define a left shift.IGs include | LABORATORY | | metamyelocytes, myelocytes and promyelocytes. Bands are included in | SERVICES, CORE | | the neutrophil count, not the IG count, except in neonates <=60 days | | | old where bands are reported in a manual diff. | | + + + + + + + + | Performing | Address | City/State/Zipcode | Phone Number | | Organization | | | | + + + + + | [facility] | [address] | [place] [address] | | | SERVICES, CORE | [address] | | | + + + + + CULTURE, BLOOD BACTI & YEAST [facility] (06/26/2017 9:39 AM PST) + + + + + + | Component | Value | Ref Range | Performed | Pathologist | | | | | At | Signature | + + + + + + | CULTURE | | | [facility] | | | RESULT | | | LABORATORY | | | | | | SERVICES, | | | | | | CORE | | + + + + + + | CULTURE | Klebsiella oxytoca (AA) | | [facility] | | | RESULT | | | LABORATORY | | | | | | SERVICES, | | | | | | CORE | | + + + + + + | GRAM STAIN | Gram negative bacilli | | [facility] | | | | | | LABORATORY | | | | | | SERVICES, | | | | | | CORE | | + + + + + + + + | Specimen | + + | Blood - Arterial | | line (physical | | object) | + + + + + | Narrative | Performed At | + + + | Growth in Aerobic Bottle. Growth in Anaerobic Bottle. | [facility] | | Organism Identified by Molecular ID, to be confirmed by culture. | LABORATORY | | | SERVICES, CORE | + + + + + + + + | Performing | Address | City/State/Zipcode | Phone Number | | Organization | | | | + + + + + | [facility] | [address] | [place] [address] | | | SERVICES, CORE | [address] | | | + + + + + CBC AND AUTO DIFF (06/26/2017 9:39 AM PST) + + + + + + | Component | Value | Ref Range | Performed | Pathologist | | | | | At | Signature | + + + + + + | WHITE CELL | 18.47 (H) | 3.50 - 10.80 | [facility] | | | COUNT | | K/cu mm | LABORATORY | | | | | | SERVICES, | | | | | | CORE | | + + + + + + | RED CELL | 4.11 (L) | 4.50 - 6.00 | [facility] | | | COUNT | | M/cu mm | LABORATORY | | | | | | SERVICES, | | | | | | CORE | | + + + + + + | HEMOGLOBIN | 12.3 (L) | 13.5 - 17.5 | [facility] [...] 91.7 | 80.0 - 96.0 fL | [facility] | | | | | | LABORATORY | | | | | | SERVICES, | | | | | | CORE | | + + + + + + | MCHC | 32.6 | 33.0 - 35.5 | [facility] | | | | | [...] + + + + | PLATELET | 143 (L) | 150 - 400 K/cu | [facility] | | | COUNT | | mm | LABORATORY | | | | | | SERVICES, | | | | | | CORE | | + + + + + + | MPV | 11.6 | 9.7 - 12.3 fL | [facility] [...] | [facility] | [address] | [place] [address] | | | SERVICES, CORE | [address] | | | + + + + + TROPONIN I, PLASMA (06/26/2017 9:30 AM PST) + +-------+ + + + | Component | Value | Ref Range | Performed | Pathologist | | | | | At | Signature | + +-------+ + + + | TROPONIN I | 0.33 | <0.80 ng/mL | [facility] | | | | | [...] | + + + + + | [facility] | [address] | [place] [address] | | | SERVICES, CORE | [address] | | | + + + + + MAGNESIUM, PLASMA (06/26/2017 9:30 AM PST) + +-------+ + + + | Component | Value | Ref Range | Performed | Pathologist | | | | | At | Signature | + +-------+ + + + | MAGNESIUM,P | 1.8 | 1.6 - 2.6 mg/dL | [facility] [...] At | + + + | Reference range change effective 01/02/17. | [facility] | | | LABORATORY | | | [facility] | + + + + + + + + | Performing | Address | City/State/Zipcode | Phone Number | | Organization | | | | + + + + + | [facility] | [address] | [place] [address] | | | SERVICES, CORE | [address] | | | + + + + + COMPLETE METABOLIC SET (NA,K,CL,CO2,BUN,CREAT,GLUC,CA,AST,ALT,BILI TOTAL,ALK PHOS,ALB,PROT TOTAL) (06/26/2017 9:30 AM PST) + +---------+ + + + | Component | Value | Ref Range | Performed | Pathologist | | | | | At | Signature | + +---------+ + + + | GLUCOSE, | 187 (H) | 70 - 99 mg/dL | [...] +---------+ + + + | CREATININE | 0.90 | 0.70 - 1.30 | [facility] | | | PLASMA | | mg/dL | LABORATORY | | | (LAB) | | | SERVICES, | | | | | | CORE | | + +---------+ + + + | EGFR | >60 | >60 mL/min | [facility] | | | - | | | LABORATORY | | | MALAYSIAN | | | SERVICES, | | | | | | CORE | | + +---------+ + + + | EGFR NON | >60 | >60 mL/min | [facility] | | | -HORACIO | | | LABORATORY | | | RICAN | | | SERVICES, | | | | | | CORE | | + +---------+ + + + | SODIUM, | 141 | 136 - 145 | [facility] | | | PLASMA | | mmol/L | LABORATORY | | | (LAB) | | | SERVICES, | | | | | | CORE | | + +---------+ + + + | POTASSIUM, | 3.4 | 3.4 - 5.0 | [facility] | | | PLASMA | | mmol/L | LABORATORY | | | (LAB) | | | SERVICES, | | | | | | CORE | | + +---------+ + + + | CHLORIDE, | 110 (H) | 97 - 108 mmol/L | [facility] | | | PLASMA | | | LABORATORY | | | (LAB) | | | SERVICES, | | | | | | CORE | | + +---------+ + + + | TOTAL CO2, | 22 | 21 - 32 mmol/L | [facility] | | | PLASMA | | | LABORATORY | | | (LAB) | | | SERVICES, | | | | | | CORE | | + +---------+ + + + | CALCIUM, | 7.0 (L) | 8.6 - 10.2 | [facility] | | | PLASMA | | mg/dL | LABORATORY | | | (LAB) | | | SERVICES, | | | | | | CORE | | + +---------+ + + + | CALCIUM(ALB | 7.9 (L) | 8.6 - 10.2 | [facility] | | | CORRECTED) | | mg/dL | LABORATORY | | | | | | SERVICES, | | | | | | CORE | | + +---------+ + + + | BILIRUBIN | 4.1 (H) | 0.3 - 1.2 mg/dL | [facility] | | | TOTAL | | | LABORATORY | | | | | | SERVICES, | | | | | | CORE | | + +---------+ + + + | TOTAL | 5.4 (L) | 6.4 - 8.2 g/dL | [facility] | | | PROTEIN, | | | LABORATORY | | | PLASMA | | | SERVICES, | | | (LAB) | | | CORE | | + +---------+ + + + | ALBUMIN, | 2.9 (L) | 3.5 - 4.7 g/dL | [facility] | | | PLASMA | | | LABORATORY | | | (LAB) | | | SERVICES, | | | | | | CORE | | + +---------+ + + + | ALK PHOS | 174 (H) | 56 - 119 U/L | [facility] | | | | | | LABORATORY | | | | | | SERVICES, | | | | | | CORE | | + +---------+ + + + | AST(SGOT) | 171 (H) | <=41 U/L | [facility] | | | | | | LABORATORY | | | | | | SERVICES, | | | | | | CORE | | + +---------+ + + + | ALT (SGPT) | 204 (H) | <=60 U/L | [facility] | | | | | | LABORATORY | | | | | | SERVICES, | | | | | | CORE | | + +---------+ + + + | ANION GAP | 9 | 4 - 11 mmol/L | [facility] | | | | | | LABORATORY | | | | | | SERVICES, | | | | | | CORE | | + +---------+ + + + | ANION | 11 | 4 - 11 mmol/L | [facility] | | | GAP(ALB | | | LABORATORY | | | CORRECTED) | | | SERVICES, | | | | | | CORE | | + +---------+ + + + | POTASSIUM | No Hemo | | [facility] | | | CMNT | | | LABORATORY | | | | | | SERVICES, | | | | | | CORE | | + +---------+ + + + | BILI T CMNT | No Hemo | | [facility] | | | | | | LABORATORY | | | | | | SERVICES, | | | | | | CORE | | + +---------+ + + + | AST CMNT | No Hemo | | [facility] | | | | | | LABORATORY | | | | | | SERVICES, | | | | | | CORE | | + +---------+ + + + + + | Specimen | + + | Blood - Blood | | (substance) | + + + + + | Narrative | Performed At | + + + | Adult glucose reference range change effective 712-17. GFR is | [facility] | | estimated using the MDRD equation recommended by the National Kidney | LABORATORY | | Disease Education Program. Estimated GFR Interpretive Information: | SERVICES, CORE | | <60 mL/min/1.73 sq m Chronic Kidney Disease | | | <15 mL/min/1.73 sq m Kidney Failure Estimated | | | GFR greater that 60 mL/min/1.73 sq m is of limited clinical value. | | | The MDRD equation is not valid in the following situations: - | | | Patients under 18 years of age - Severe malnutrition or obesity - | | | Vegetarian diet - Rapidly changing kidney function | | + + + + + + + + | Performing | Address | City/State/Zipcode | Phone Number | | Organization | | | | + + + + + | [facility] | [address] | [place] [address] | | | SERVICES, CORE | [address] | | | + + + + + BLOOD GASES, ARTERIAL - LAB (06/26/2017 9:29 AM PST) + + + + + + | Component | Value | Ref Range | Performed | Pathologist | | | | | At | Signature | + + + + + + | FIO2 | 0.80 | | [facility] | | | ARTERIAL | | | LABORATORY | | | | | | SERVICES, | | | | | | CORE | | + + + + + + | PH ARTERIAL | 7.31 (L) | 7.37 - 7.44 | [facility] | | | | | | LABORATORY | | | | | | SERVICES, | | | | | | CORE | | + + + + + + | PCO2 | 45 (H) | 32 - 43 mmHg | [facility] | | | ARTERIAL | | | LABORATORY | | | | | | SERVICES, | | | | | | CORE | | + + + + + + | PO2 | 86 | 72 - 104 mmHg | [facility] | | | ARTERIAL | | | LABORATORY | | | | | | SERVICES, | | | | | | CORE | | + + + + + + | HCO3 | 22 | 21 - 28 mmol/L | [facility] | | | ARTERIAL | | | LABORATORY | | | | | | SERVICES, | | | | | | CORE | | + + + + + + | TOTAL CO2 | 24 | 22 - 28 mmol/L | [facility] | | | ARTERIAL | | | LABORATORY | | | | | | SERVICES, | | | | | | CORE | | + + + + + + | BASE EXCESS | -3.5 | mmol/L | [facility] | | | ARTERIAL | | | LABORATORY | | | | | | SERVICES, | | | | | | CORE | | + + + + + + | O2 SAT, | 96.4 | 92.0 - 98.0 % | [facility] | | | ARTERIAL | | | LABORATORY | | | | | | SERVICES, | | | | | | CORE | | + + + + + + | PAO2/FIO2 | 108 (L) | >300 mmHg | [facility] | | | RATIO | | | LABORATORY | | | [...] | + + + + + | [facility] | [address] | [place] [address] | | | SERVICES, CORE | [address] | | | + + + + + TL-ET-HSH-HB,POC RT (06/26/2017 8:55 AM PST) + + + + + + | Component | Value | Ref Range | Performed | Pathologist | | | | | At | Signature | + + + + + + | HCO3 | 22.4 | 22 - 28 mmol/L | [facility] - | | | VENOUS, POC | | | [facility] | | | | | | [facility] | | | | | | OF CARE | | | | | | TESTS | | + + + + + + | PCO2 | 49 | 35 - 50 mmHg | [facility] - | | | VENOUS, POC | | | [facility] | | | | | | [place] [place] | | | | | | OF CARE | | | | | | TESTS | | + + + + + + | PH VENOUS, | 7.27 (L) | 7.35 - 7.45 | [facility] - | | | POC | | | [facility] | | | | | | [place], [place] | | | | | | OF CARE | | | | | | TESTS | | + + + + + + | BASE EXCESS | -4.5 | | [facility] - | | | PELON, POC | | | [facility] | | | | | | [place] [place] | | | | | | OF CARE | | | | | | TESTS | | + + + + + + | O2 SAT | 85.9 | % | [facility] - | | | VENOUS, POC | | | [facility] | | | | | | [place] [place] | | | | | | OF CARE | | | | | | TESTS | | + + + + + + | PO2 VENOUS, | 56 (H) | 30 - 55 mmHg | [facility] - | | | POC | | | [facility] | | | | | | Y[place], POINT | | | | | | OF CARE | | | | | | TESTS | | + + + + + + | SODIUM, WHL | 139 | 134 - 143 | [facility] - | | | BLD, POC | | mmol/L | [facility] | | | | | | YUE, POINT | | | | | | OF CARE | | | | | | TESTS | | + + + + + + | POTASSIUM,W | 3.3 (L) | 3.4 - 5.0 | [facility] - | | | HL BLD, POC | | mmol/L | [facility] | | | | | | YUE, POINT | | | | | | OF CARE | | | | | | TESTS | | + + + + + + | RODDY | 1.08 (L) | 1.14 - 1.32 | [facility] - | | | IONIZED | | mmol/L | [facility] | | | CA,WHOLE | | | [place], POINT | | | BLD,POC | | | OF CARE | | | | | | TESTS | | + + + + + + | HEMOGLOBIN, | 12.3 (L) | 13.5 - 17.5 | [facility] - | | | POC | | g/dL | [facility] | | | | | | [place] POINT | | | | | | OF CARE | | | | | | TESTS | | + + + + + + | LACTATE POC | 3.0 (H) | 0.5 - 2.2 | [facility] - | | | | | mmol/L | [facility] | | | | | | [place] [facility] | | | | | | OF CARE | | | | | | TESTS | | + + + + + + | FIO2 | 80.0 | | [facility] - | | | VENOUS, POC | | | [facility] | | | | | | [place] POINT | | | | | | OF CARE | | | | | | TESTS | | + + + + + + | PAT TEMP | 36.6 | | [facility] - | | | VENOUS,POC | | | [facility] | | | | | | [place], POINT | | | | | | OF CARE | | | | | | TESTS | | + + + + + + + + | Specimen | + + | Blood - Blood | | (substance) | + + + + + + + | Performing | Address | City/State/Zipcode | Phone Number | | Organization | | | | + + + + + | [facility] | [address] | [place], [place] | | | [facility] | [address] | [phone] | | | TESTS | | | | + + + + + LAB REPORTS (06/26/2017 12:00 AM PST) + + + | Narrative | Performed At | + + + | | | + + + PATHOLOGY (06/26/2017 12:00 AM PST) + + + | Narrative | Performed At | + + + | | | + + + documented in this encounter Visit Diagnoses + + | Diagnosis | + + | Septic shock (HCC) - Primary | + + | Choledocholithiasis Calculus of bile duct without mention of cholecystitis or | | obstruction | + + | Dyspnea, unspecified type | + + | Physical deconditioning Debility, unspecified | + + | Acute cholangitis Cholangitis | + + | Klebsiella sepsis (HCC) Klebsiella pneumoniae | + + | Non-ST elevation myocardial infarction (NSTEMI), type 2 | + + | Aspiration pneumonitis (HCC) Pneumonitis due to inhalation of food or vomitus | + + | S/P ERCP Personal history of surgery to other organs | + + | Acute respiratory failure with hypoxia (HCC) Acute respiratory failure | + + | COPD (chronic obstructive pulmonary disease) (HCC) Chronic airway obstruction, not | | elsewhere classified | + + | Essential hypertension | + + documented in this encounter Administered Medications + +--------+ +--------+------+------+ | Medication Order | MAR | Action | Dose | Rate | Site | | | Action | Date | | | | + +--------+ +--------+------+------+ | acetaminophen (TYLENOL) tablet | Given | 06/26/19 | 650 mg | | | | 650 mg 650 mg, feeding tube, | | 18 9:41 | | | | | THREE TIMES DAILY, First dose on | | PM PST | | | | | 06/26/17 at 1145, Until | | | | | | | Discontinued | | | | | | + +--------+ +--------+------+------+ +-------+ +--------+---+---+ | Given | 06/26/19 | 650 mg | | | | | 18 12:11 | | | | | | PM PST | | | | +-------+ +--------+---+---+ +---+---+ | | | +---+---+ + +-------+ +--------+---+---+ | acetaminophen (TYLENOL) tablet | Given | 06/29/19 | 650 mg | | | | 650 mg 650 mg, oral, THREE TIMES | | 18 8:10 | | | | | DAILY, First dose (after last | | AM PST | | | | | modification) on Myesha 06/28/17 at | | | | | | | 0130, Until Discontinued | | | | | | + +-------+ +--------+---+---+ +-------+ +--------+---+---+ | Given | 06/28/19 | 650 mg | | | | | 18 9:28 | | | | | | PM PST | | | | +-------+ +--------+---+---+ | Given | 06/28/19 | 650 mg | | | | | 18 3:54 | | | | | | PM PST | | | | +-------+ +--------+---+---+ +---+---+ | | | +---+---+ + +-------+ +--------+---+---+ | acetaminophen (TYLENOL) tablet | Given | 06/30/19 | 650 mg | | | | 650 mg 650 mg, oral, THREE TIMES | | 18 8:06 | | | | | DAILY NEEDED, Starting Fri | | AM PST | | | | | 06/29/17 at 0830, Until 06/30/17 | | | | | | | at 1137, multimodal pain control | | | | | | + +-------+ +--------+---+---+ +-------+ +--------+---+---+ | Given | 06/29/19 | 650 mg | | | | | 18 11:30 | | | | | | PM PST | | | | +-------+ +--------+---+---+ | Given | 06/29/19 | 650 mg | | | | | 18 1:36 | | | | | | PM PST | | | | +-------+ +--------+---+---+ +---+---+ | | | +---+---+ + +-------+ +--------+---+---+ | acetaminophen (TYLENOL) tablet | Given | 06/30/19 | 650 mg | | | | 650 mg 650 mg, oral, EVERY 6 | | 18 2:04 | | | | | HOURS WHILE AWAKE, First dose | | PM PST | | | | | (after last modification) on Sat | | | | | | | 06/30/17 at 1330, Until | | | | | | | Discontinued | | | | | | + +-------+ +--------+---+---+ +---+---+ | | | +---+---+ + +-------+ +--------+---+---+ | amoxicillin-clavulanate | Given | 06/30/19 | 500 mg | | | | (AUGMENTIN) 500-125 mg 500 mg | | 18 2:04 | | | | | 500 mg, oral, THREE TIMES DAILY, | | PM PST | | | | | 30 doses, First dose on Sun | | | | | | | 06/29/17 at 1600, Last dose on Sun | | | | | | | 07/09/17 at 0900 | | | | | | + +-------+ +--------+---+---+ +-------+ +--------+---+---+ | Given | 06/30/19 | 500 mg | | | | | 18 8:06 | | | | | | AM PST | | | | +-------+ +--------+---+---+ | Given | 06/29/19 | 500 mg | | | | | 18 8:45 | | | | | | PM PST | | | | +-------+ +--------+---+---+ + +---+ | | | + +---+ | bisacodyl (DULCOLAX) | | | suppository 10 mg 10 mg, rectal, | | | DAILY NEEDED, Starting Fri | | | 06/29/17 at 1026, Until 06/30/17 | | | at 2033, 2nd line for no BM in | | | past 2 days OR if no response to | | | MIRALAX or if patient unable to | | | tolerate oral | | + +---+ | | | + +---+ + +---------+ +-----+---+---+ | calcium gluconate 1 g in | New Bag | 06/26/19 | 1 g | | | | dextrose 5 % IV 1 g, | | 18 5:46 | | | | | intravenous, ONCE, 1 dose, Tue | | PM PST | | | | | 06/26/17 at 1715 | | | | | | + +---------+ +-----+---+---+ +---+---+ | | | +---+---+ + +-------+ +-------+---+---+ | chlorhexidine (PERIDEX) | Given | 06/27/19 | 15 mL | | | | mouthwash 15 mL 15 mL, oral, | | 18 4:11 | | | | | EVERY 6 HOURS, First dose on Sun | | AM PST | | | | | 06/26/17 at 1130, Until | | | | | | | Discontinued | | | | | | + +-------+ +-------+---+---+ +-------+ +-------+---+---+ | Given | 06/26/19 | 15 mL | | | | | 18 9:41 | | | | | | PM PST | | | | +-------+ +-------+---+---+ | Given | 06/26/19 | 15 mL | | | | | 18 2:16 | | | | | | PM PST | | | | +-------+ +-------+---+---+ +---+---+ | | | +---+---+ + +-------+ +-------+---+---------+ | enoxaparin (LOVENOX) injection | Given | 06/29/19 | 40 mg | | Abdomen | | 40 mg 40 mg, subcutaneous, EVERY | | 18 8:45 | | | | | EVENING, First dose on Sun | | PM PST | | | | | 06/26/17 at 2100, Until | | | | | | | Discontinued | | | | | | + +-------+ +-------+---+---------+ +-------+ +-------+---+ + | Given | 06/28/19 | 40 mg | | Abdomen | | | 18 9:28 | | | | | | PM PST | | | | +-------+ +-------+---+ + | Given | 06/27/19 | 40 mg | | Left Arm | | | 18 9:54 | | | | | | PM PST | | | | +-------+ +-------+---+ + +---+---+ | | | +---+---+ + +---------+ + +-------+---+ | esmolol (BREVIBLOC) 2500 mg/250 | New Bag | 06/26/19 | 50 | 26.4 | | | mL (10 mg/mL) in NS IV infusion | | 18 9:00 | mcg/kg/m | mL/hr | | | (RTU) 50-200 mcg/kg/min | | AM PST | in | | | | 88 kg Order-specific weight | | | | | | | (26.4-105.6 mL/hr), intravenous, | | | | | | | CONTINUOUS, Starting 06/26/17 | | | | | | | at 0930, Until 06/26/17 at 1848 | | | | | | + +---------+ + +-------+---+ +---+---+ | | | +---+---+ + +-------+ + +---+---+ | esmolol (BREVIBLOC) IV infusion | Given | 06/26/19 | 50 | | | | 1 dose, Starting 06/26/17 at | | 18 9:25 | mcg/kg/m | | | | 0848, Until 06/26/17 at 0925 | | AM PST | in | | | + +-------+ + +---+---+ +---+---+ | | | +---+---+ + +-------+ +-------+---+---+ | furosemide (LASIX) tablet 20 mg | Given | 06/30/19 | 20 mg | | | | 20 mg, oral, DAILY, First dose | | 18 8:06 | | | | | on Myesha 06/28/17 at 0900, Until | | AM PST | | | | | Discontinued | | | | | | + +-------+ +-------+---+---+ +-------+ +-------+---+---+ | Given | 06/29/19 | 20 mg | | | | | 18 8:10 | | | | | | AM PST | | | | +-------+ +-------+---+---+ | Given | 06/28/19 | 20 mg | | | | | 18 9:11 | | | | | | AM PST | | | | +-------+ +-------+---+---+ + +---+ | | | + +---+ | HYDROmorphone (DILAUDID) | | | injection 0.1-0.3 mg 0.1-0.3 mg, | | | intravenous, EVERY 2 HOURS | | | NEEDED, Starting Myesha 06/28/17 at | | | 1352, Until 06/30/17 at 2033, | | | for severe break through pain | | + +---+ | | | + +---+ + +-------+ +--------+---+---+ | HYDROmorphone (DILAUDID) | Given | 06/26/19 | 0.1 mg | | | | injection 0.1-0.5 mg 0.1-0.5 mg, | | 18 11:14 | | | | | intravenous, EVERY 2 HOURS | | PM PST | | | | | NEEDED, Starting Sun06/26/17 at | | | | | | | 2258, Until Sun06/27/17 at 0205, | | | | | | | for RR >30, reported dyspnea, or | | | | | | | moderate pain | | | | | | + +-------+ +--------+---+---+ +---+---+ | | | +---+---+ + +-------+ +--------+---+---+ | indomethacin (INDOCIN) | Given | 06/26/19 | 100 mg | | | | suppository 100 mg 100 mg, | | 18 4:30 | | | | | rectal, ONCE, 1 dose, Sun06/26/17 | | PM PST | | | | | at 1615 | | | | | | + +-------+ +--------+---+---+ +---+---+ | | | +---+---+ + +-------+ +---------+---+ + | insulin lispro (HUMALOG) | Given | 06/28/19 | 1 Units | | Left Arm | | injection subcutaneous, FOUR | | 18 6:38 | | | | | TIMES DAILY, First dose on Sun | | AM PST | | | | | 06/26/17 at 1845, Until | | | | | | | Discontinued | | | | | | + +-------+ +---------+---+ + +-------+ +---------+---+ + | Given | 06/28/19 | 1 Units | | Left Arm | | | 18 12:00 | | | | | | AM PST | | | | +-------+ +---------+---+ + | Given | 06/27/19 | 1 Units | | Left Arm | | | 18 1:48 | | | | | | PM PST | | | | +-------+ +---------+---+ + +---+---+ | | | +---+---+ + +-------+ +------+---+---+ | iohexol (OMNIPAQUE) 300 mg | Given | 06/26/19 | 8 mL | | | | iodine/mL INTRAPROCEDURE PRN, | | 18 4:35 | | | | | Starting 06/26/17 at 1635, | | PM PST | | | | | Until 06/26/17 at 1635 | | | | | | + +-------+ +------+---+---+ +---+---+ | | | +---+---+ + +-------+ +------+---+---+ | ipratropium-albuterol (DUO-NEB) | Given | 06/27/19 | 3 mL | | | | nebulizer solution 3 mL 3 mL, | | 18 10:50 | | | | | inhalation, EVERY 6 HOURS, First | | AM PST | | | | | dose on 06/26/17 at 1115, Until | | | | | | | Discontinued | | | | | | + +-------+ +------+---+---+ +-------+ +------+---+---+ | Given | 06/27/19 | 3 mL | | | | | 18 3:00 | | | | | | AM PST | | | | +-------+ +------+---+---+ | Given | 06/26/19 | 3 mL | | | | | 18 9:34 | | | | | | PM PST | | | | +-------+ +------+---+---+ +---+---+ | | | +---+---+ + +-------+ +------+---+---+ | ipratropium-albuterol (DUO-NEB) | Given | 06/29/19 | 3 mL | | | | nebulizer solution 3 mL 3 mL, | | 18 10:21 | | | | | inhalation, EVERY 6 HOURS | | PM PST | | | | | NEEDED, Starting 06/27/17 at | | | | | | | 1415, Until 06/30/17 at 2033, | | | | | | | dyspnea/SOB | | | | | | + +-------+ +------+---+---+ +-------+ +------+---+---+ | Given | 06/29/19 | 3 mL | | | | | 18 7:16 | | | | | | AM PST | | | | +-------+ +------+---+---+ | Given | 06/27/19 | 3 mL | | | | | 18 8:54 | | | | | | PM PST | | | | +-------+ +------+---+---+ +---+---+ | | | +---+---+ + +---------+ +--------+---+---+ | lactated Ringers IV 500 mL, | New Bag | 06/26/19 | 500 mL | | | | intravenous, ONCE, 1 dose, Tue | | 18 9:51 | | | | | 06/26/17 at 1000 | | AM PST | | | | + +---------+ +--------+---+---+ +---+---+ | | | +---+---+ + +---------+ + +---+---+ | lactated Ringers IV 1,000 mL, | New Bag | 06/26/19 | 1,000 mL | | | | intravenous, ONCE, 1 dose, Tue | | 18 9:51 | | | | | 06/26/17 at 1030 | | AM PST | | | | + +---------+ + +---+---+ +---+---+ | | | +---+---+ + +---------+ +--------+---+---+ | lactated Ringers IV 500 mL, | New Bag | 06/26/19 | 500 mL | | | | intravenous, ONCE, 1 dose, Tue | | 18 7:14 | | | | | 06/26/17 at 1930 | | PM PST | | | | + +---------+ +--------+---+---+ +---+---+ | | | +---+---+ + +---------+ + +---+---+ | lactated Ringers IV 1,000 mL, | New Bag | 06/26/19 | 1,000 mL | | | | intravenous, ONCE, 1 dose, Tue | | 18 9:41 | | | | | 2/6/18 at 2145 | | PM PST | | | | + +---------+ + +---+---+ +---+---+ | | | +---+---+ + +---------+ + +---+---+ | lactated Ringers IV 1,000 mL, | New Bag | 06/27/19 | 1,000 mL | | | | intravenous, ONCE, 1 dose, Wed | | 18 4:45 | | | | | 06/27/17 at 0515 | | AM PST | | | | + +---------+ + +---+---+ +---+---+ | | | +---+---+ + +-------+ +-------+---+---+ | lisinopril (PRINIVIL) tablet 20 | Given | 06/30/19 | 20 mg | | | | mg 20 mg, oral, DAILY, First | | 18 10:26 | | | | | dose on 06/30/17 at 0945, | | AM PST | | | | | Until Discontinued | | | | | | + +-------+ +-------+---+---+ +---+---+ | | | +---+---+ + +---------+ +-----+---+---+ | magnesium sulfate in water IV | New Bag | 06/26/19 | 2 g | | | | (RTU) 2 g 2 g, intravenous, | | 18 10:01 | | | | | ONCE, 1 dose, 06/26/17 at 0945 | | AM PST | | | | + +---------+ +-----+---+---+ + +---+ | | | + +---+ | menthol-zinc oxide (CALAZIME) | | | topical paste 0.2%-16.5% | | | topical, FOUR TIMES DAILY | | | NEEDED, Starting 06/26/17 at | | | 0838, Until 06/30/17 at 2032, | | | skin irritation, redness, | | | breakdown | | + +---+ | | | + +---+ + + + +--------+---+---+ | mineral oil (FLEET MINERAL OIL) | Pt | 06/30/19 | 133 mL | | | | rectal enema 133 mL 133 mL, | Administ | 18 12:17 | | | | | rectal, ONCE, 1 dose, 06/30/17 | ered | PM PST | | | | | at 1200 | | | | | | + + + +--------+---+---+ +---+---+ | | | +---+---+ + + [...] + +-------+---+ +---+---+ | | | +---+---+ + + + + +-------+---+ | norepinephrine (LEVOPHED) | Restarte | 06/26/19 | 0.02 | 3.3 | | | 8mg/250 mL (0.032 mg/mL) IV | d | 18 10:15 | mcg/kg/m | mL/hr | | | infusion (RTU) 0.02-0.2 | | AM PST | in | | | | mcg/kg/min | | | | | | | 88 kg Order-specific weight | | | | | | | (3.3-33 mL/hr), intravenous, | | | | | | | CONTINUOUS, Starting 06/26/17 | | | | | | | at 0915, Until 06/26/17 at 1041 | | | | | | + + + + +-------+---+ + + + +-------+---+ | Rate/Dose Change | 06/26/19 | 0.04 | 6.6 | | | | 18 10:01 | mcg/kg/m | mL/hr | | | | AM PST | in | | | + + + +-------+---+ | Rate/Dose Change | 06/26/19 | 0.06 | 9.9 | | | | 18 9:51 | mcg/kg/m | mL/hr | | | | AM PST | in | | | + + + +-------+---+ +---+---+ | | | +---+---+ + +-------+ +-------+---+---+ | omeprazole (PRILOSEC) capsule | Given | 06/30/19 | 40 mg | | | | 40 mg 40 mg, oral, BEFORE | | 18 6:02 | | | | | BREAKFAST, First dose on [facility] | | AM PST | | | | | 06/28/17 at 0630, Until | | | | | | | Discontinued | | | | | | + +-------+ +-------+---+---+ +-------+ +-------+---+---+ | Given | 06/29/19 | 40 mg | | | | | 18 6:14 | | | | | | AM PST | | | | +-------+ +-------+---+---+ | Given | 06/28/19 | 40 mg | | | | | 18 6:38 | | | | | | AM PST | | | | +-------+ +-------+---+---+ +---+---+ | | | +---+---+ + +-------+ +-------+---+---+ | omeprazole (PRILOSEC) oral | Given | 06/27/19 | 40 mg | | | | suspension (compound) 40 mg 40 | | 18 5:24 | | | | | mg, feeding tube, BEFORE | | AM PST | | | | | BREAKFAST, First dose on Tue | | | | | | | 06/26/17 at 2130, Until | | | | | | | Discontinued | | | | | | + +-------+ +-------+---+---+ +---+---+ | | | +---+---+ + +-------+ +------+---+---+ | oxyCODONE (immediate release) | Given | 06/30/19 | 5 mg | | | | (ROXICODONE) tablet 2.5-5 mg | | 18 2:06 | | | | | 2.5-5 mg, oral, EVERY 4 HOURS | | PM PST | | | | | NEEDED, Starting [facility] 06/28/17 at | | | | | | | 0948, Until 06/30/17 at 2033, | | | | | | | severe pain | | | | | | + +-------+ +------+---+---+ +-------+ +------+---+---+ | Given | 06/30/19 | 5 mg | | | | | 18 8:06 | | | | | | AM PST | | | | +-------+ +------+---+---+ | Given | 06/30/19 | 5 mg | | | | | 18 3:32 | | | | | | AM PST | | | | +-------+ +------+---+---+ +---+---+ | | | +---+---+ + +---------+ +---------+-------+---+ | piperacillin-tazobactam (ZOSYN) | New Bag | 06/29/19 | 3.375 g | 12.5 | | | 3.375 g in NaCl 0.9 % 50 mL IV | | 18 6:39 | | mL/hr | | | (ADD-vantage) 3.375 g, | | AM PST | | | | | intravenous, EVERY 8 HOURS, First | | | | | | | dose on Sun06/26/17 at 1500, | | | | | | | Until Discontinued | | | | | | + +---------+ +---------+-------+---+ +---------+ +---------+-------+---+ | New Bag | 06/28/19 | 3.375 g | 12.5 | | | | 18 11:27 | | mL/hr | | | | PM PST | | | | +---------+ +---------+-------+---+ | New Bag | 06/28/19 | 3.375 g | | | | | 18 2:30 | | | | | | PM PST | | | | +---------+ +---------+-------+---+ +---+---+ | | | +---+---+ + +---------+ +-------+---+---+ | piperacillin-tazobactam (ZOSYN) | New Bag | 06/26/19 | 4.5 g | | | | IV 4.5 g 4.5 g, intravenous, | | 18 9:26 | | | | | ONCE, 1 dose, 06/26/17 at 0845 | | AM PST | | | | + +---------+ +-------+---+---+ +---+---+ | | | +---+---+ + +-------+ +------+---+---+ | polyethylene glycol (MIRALAX) | Given | 06/30/19 | 17 g | | | | packet 17 g 17 g, oral, DAILY, | | 18 8:07 | | | | | First dose on Sun06/29/17 at 1215, | | AM PST | | | | | Until Discontinued | | | | | | + +-------+ +------+---+---+ +-------+ +------+---+---+ | Given | 06/29/19 | 17 g | | | | | 18 1:36 | | | | | | PM PST | | | | +-------+ +------+---+---+ +---+---+ | | | +---+---+ + +-------+ +------+---+---+ | polyethylene glycol (MIRALAX) | Given | 06/30/19 | 34 g | | | | packet 34 g 34 g, oral, THREE | | 18 6:10 | | | | | TIMES DAILY NEEDED, Starting | | AM PST | | | | | Sun06/29/17 at 1026, Until Sat | | | | | | | 06/30/17 at 2033, 1st line - for | | | | | | | no BM for 2 days | | | | | | + +-------+ +------+---+---+ +---+---+ | | | +---+---+ + +---------+ +--------+---+---+ | potassium chloride IV (CENTRAL | New Bag | 06/26/19 | 20 mEq | | | | LINE-ICU) 20 mEq 20 mEq, | | 18 10:05 | | | | | intravenous, EVERY 1 HOUR, 2 | | AM PST | | | | | doses, First dose (after last | | | | | | | modification) on 06/26/17 at | | | | | | | 1000, Last dose on 06/26/17 at | | | | | | | 1100 | | | | | | + +---------+ +--------+---+---+ +---+---+ | | | +---+---+ + +---------+ +--------+---+---+ | potassium chloride IV (CENTRAL | New Bag | 06/26/19 | 20 mEq | | | | LINE-ICU) 20 mEq 20 mEq, | | 18 12:11 | | | | | intravenous, ONCE, 1 dose, e | | PM PST | | | | | 06/26/17 at 1200 | | | | | | + +---------+ +--------+---+---+ +---+---+ | | | +---+---+ + +---------+ +--------+---+---+ | potassium chloride IV (CENTRAL | New Bag | 06/26/19 | 20 mEq | | | | LINE-ICU) 20 mEq 20 mEq, | | 18 2:57 | | | | | intravenous, EVERY 1 HOUR, 2 | | PM PST | | | | | doses, First dose on Sun06/26/17 | | | | | | | at 1430, Last dose on Sun06/26/17 | | | | | | | at 1600 | | | | | | + +---------+ +--------+---+---+ +---+---+ | | | +---+---+ + +-------+ +-------+---+---+ | pravastatin (PRAVACHOL) tablet | Given | 06/29/19 | 10 mg | | | | 10 mg 10 mg, oral, DAILY, First | | 18 9:03 | | | | | dose on Sun06/28/17 at 2100, Until | | PM PST | | | | | Discontinued | | | | | | + +-------+ +-------+---+---+ +-------+ +-------+---+---+ | Given | 06/28/19 | 10 mg | | | | | 18 9:28 | | | | | | PM PST | | | | +-------+ +-------+---+---+ +---+---+ | | | +---+---+ + + + +---+---+---+ | probiotic yogurt (MECHE'S | Given - | 06/29/19 | | | | | YOGURT) oral, THREE TIMES DAILY | Food | 18 9:01 | | | | | WITH MEALS, First dose on Myesha | | PM PST | | | | | 06/28/17 at 1700, Until | | | | | | | Discontinued | | | | | | + + + +---+---+---+ + + +---+---+---+ | Given - Food | 06/29/19 | | | | | | 18 2:44 | | | | | | PM PST | | | | + + +---+---+---+ | Given - Food | 06/29/19 | | | | | | 18 8:20 | | | | | | AM PST | | | | + + +---+---+---+ +---+---+ | | | +---+---+ + + + + +-------+---+ | propofol (DIPRIVAN) injection | Rate/Dos | 06/27/19 | 15 | 7.79 | | | 0.5-50 mcg/kg/min | e Verify | 18 7:00 | mcg/kg/m | mL/hr | | | 86.5 kg (0.2595-25.95 mL/hr, | | AM PST | in | | | | rounded to 0.26-25.95 mL/hr), | | | | | | | intravenous, CONTINUOUS, Starting | | | | | | | 06/27/17 at 0145, Until Wed | | | | | | | 06/27/17 at 0841 | | | | | | + + + + +-------+---+ + + + +-------+---+ | Rate/Dose Verify | 06/27/19 | 15 | 7.79 | | | | 18 6:00 | mcg/kg/m | mL/hr | | | | AM PST | in | | | + + + +-------+---+ | Rate/Dose Verify | 06/27/19 | 15 | 7.79 | | | | 18 5:00 | mcg/kg/m | mL/hr | | | | AM PST | in | | | + + + +-------+---+ +---+---+ | | | +---+---+ + +-------+ +---------+---+---+ | senna-docusate (SENOKOT S) | Given | 06/30/19 | 2 | | | | 8.6-50 mg 2 tablet 2 tablet, | | 18 8:06 | tablets | | | | oral, TWICE DAILY, First dose on | | AM PST | | | | | Sun06/29/17 at 1215, Until | | | | | | | Discontinued | | | | | | + +-------+ +---------+---+---+ +-------+ +---------+---+---+ | Given | 06/29/19 | 2 | | | | | 18 8:45 | tablets | | | | | PM PST | | | | +-------+ +---------+---+---+ | Given | 06/29/19 | 2 | | | | | 18 1:36 | tablets | | | | | PM PST | | | | +-------+ +---------+---+---+ +---+---+ | | | +---+---+ + +-------+ +-------+---+---+ | simethicone chew (MYLICON) | Given | 06/30/19 | 80 mg | | | | tablet 80 mg 80 mg, oral, THREE | | 18 10:26 | | | | | TIMES DAILY NEEDED, Starting | | AM PST | | | | | Myesha 06/28/17 at 1221, Until Sat | | | | | | | 06/30/17 at 2033, bloating | | | | | | + +-------+ +-------+---+---+ +-------+ +-------+---+---+ | Given | 06/29/19 | 80 mg | | | | | 18 8:45 | | | | | | PM PST | | | | +-------+ +-------+---+---+ | Given | 06/29/19 | 80 mg | | | | | 18 3:44 | | | | | | AM PST | | | | +-------+ +-------+---+---+ +---+---+ | | | +---+---+ + +---------+ +-------+-------+---+ | sodium chloride 0.9% IV | New Bag | 06/30/19 | 125 | 125 | | | infusion 125 mL/hr, intravenous, | | 18 10:26 | mL/hr | mL/hr | | | CONTINUOUS, Starting 06/30/17 | | AM PST | | | | | at 1015, Until 06/30/17 at | | | | | | | 2033 | | | | | | + +---------+ +-------+-------+---+ +---+---+ | | | +---+---+ documented in this encounter
--- OUTSIDE RECORDS SUMMARY | ~2020-03-03 | XMS | Encounter Summary ---
Demographics + + + | Address | [address] | | | [place] [address] | + + + | Home Phone [...] Team Providers + +------+ + | Care Analytic Manager Name | Role | Phone | + +------+ + | Daryl March MD | PCP | | + +------+ + Reason for Visit + + + | Reason | Comments | + + + | Care Coordination | ERCP f/u | + + + Encounter Details +--------+ + + + + | Date | Type | Department | Care Team | Description | +--------+ + + + + | 07/23/ | Telephone | Endoscopic | Rene Maldonado | Care Coordination | | 2018 | | Procedural Unit at | MD Rashida [address] | (ERCP f/u) | | | | Mikayla Borges [address] | | | | | [address] | [place], [place] | | | | | [place], | [address] | | | | | 4th floor [place], | [phone] | | | | | [place] [address] | | | | | | [phone] | | | +--------+ + + + [...] this encounter Miscellaneous Notes Telephone Encounter - Hedy Brush RN - 08/17/2017 8:45 AM PDTPt had 08/14/17 ERCP w/Dr. Nassar, no CBD stent found on ERCP or imaging. Complete note in chart, partial note copied bel cecilia. Xray report in chart. Impression: - The previously placed biliary stent was not found at the ampulla, nor was it seen on the medical record consultant image. - Several filling defects consistent with stones and sludge was seen on the cholangiogram. - The left and right hepatic ducts and all intrahepatic branches, common bile duct and common hepatic duct were severely dilated. - The patient has had a cholecystectomy. - Choledocholithiasis removal was accomplished by balloon extraction. - The biliary tree was swept until it was clear. Recommendation: - The patient will be observed post-procedure, until all discharge criteria are met. - Clear liquid diet for 1 day, then advance as tolerated to resume regular diet. - The findings and recommendations were discussed with the patient. - Watch for pancreatitis, bleeding, perforation, and cholangitis. - KUB today to see if the stent is in the small bowel or colon. - The findings and recommendations were discussed with the patient. MAGDY PENNY MD 08/14/2017 2:11:37 PM This report has been signed electronicallyElectronically signed by Hedy Brush RN at 2017 8:48 AM PDTTelephone Encounter - Hedy Brush RN - 08/01/2017 3:44 PM PDTS/w [place] at Wendi Flowers's office and confirmed pt is scheduled for 08/14/17 ERCP w/Dr. Penny at [place] to remove stent. elephone Encounter - Hedy Brush RN - 07/25/2017 9:47 AM PSTS/w Miranda at Dr. Flowers's office and s he will have [place] call me back today w/update on ERCP plans. elephone Encounter - Hedy Brush RN - 07/23/2017 9:59 AM PSTPt had 06/27/17 ERCP w/Dr. Maldonado w/recs for ERCP in 4 weeks to remove stent and clear duct, I/R copied below. Since ERCP pt told us he plans to have ERCP w/local surgeon Dr. Star benson but only notes are for his 07/13/17 je at [facility] with Dr. Flowers. Called Dr. Flowers's office and s/w [place] about need for ERCP and what plans were. She said pt did not want to come back to [facility] so they referred to Dr. Disla in [place] for ERCP. If his office declines then they will send him back to [facility]. Carolina planned to f/u with Dr. Disla's office w/update on ERCP scheduling today and will let m e know what she finds out. Provided phone/fax number. Impressed upon her importance of ERCP soon b/c we are at the 4 week post ERCP timeframe now. Dr. Maldonado 06/27/17 ERCP I/R Impression: - Choledocholithiasis was found. Complete removal was accomplished by biliary sphincterotomy and balloon extraction. No pus found. Given acute cholangitis, 10 Fr stent placed. - Unusual appearance of post sphincterotomy ampulla, bx taken Recommendation: F/u path F/u LFTs and clinically; if he doesnt improve, consider repeating abd US to evaluate gallbaldder Will need ERCP in 4 weeks post d/c to remove stent and clear duct Given that we were in [facility], images were not available RENE MALDONADO MD 06/27/2017 6:48:17 AM documented in this encoun ter Plan of Treatment Not on filedocumented as of this encounter Visit Diagnoses Not on filedocumented in this encounter"
--- OUTSIDE RECORDS SUMMARY | ~2020-03-03 | XMS | Encounter Summary ---
Demographics + + + | Address | [address] | | | [place] [address] | + + + | Home Phone | | + + + | Preferred Language | Unknown | + + + | Marital Status | | + + + | Episcopal Affiliation | NON | + + + | Race | White | + + + | Ethnic Group | Not or | + + + Author + + + | Author | [facility] | + + + | Organization | [facility] | + + + | Address | Unknown | + + + | Phone | Unavailable | + + + Support + + +---------+ + | Name | Relationship | Address | Phone | + + +---------+ + | None Per Pt | ECON | Unknown | Unavailable | + + +---------+ + Care Team Providers + +------+ + | Care Audio Visual Coordinator Name | Role | Phone | + +------+ + | Herlinda Maldonado | PCP | | + +------+ + Encounter Details +--------+--------+ + + + | Date | Type | Department | Care Team | Description | +--------+--------+ + + + | 05/30/ | Intake | Transfer Center | | | | 2019 | | [address] | | | | | | [place], | | | | | | [place] [address] | | | +--------+--------+ + + + [...]
--- OUTSIDE RECORDS SUMMARY | ~2020-03-03 | XMS | Encounter Summary ---
Demographics + + + | Address | [address] | | | [place] [address] | + + + | Home Phone | | + + + | Preferred Language | Unknown | + + + | Marital Status | | + + + | Baptism Affiliation | Unknown | + + + | Race | White | + + + | Ethnic Group | Not or | + + + Author + + + | Author | [facility] | | | and [place] | + + + | Organization | [facility] | | | [...] Team Providers + +------+ + | Care Counseling Program Leader Name | Role | Phone | + +------+ + | Herlinda Maldonado | PCP | | | PA | | | + +------+ + Encounter Details +--------+ + + + + | Date | Type | Department | Care Team | Description | +--------+ + + + + | 08/07/ | Abstract | [facility] | Provider, | | | 2017 | | GASTROENTEROLOGY | MD Maggie Manning1 | | | | | [address] | [place]. | | | | | [address] | [place] [address] | | | | | [address] | | | | | | [phone] | | | +--------+ + + + [...] + + + | Blood Pressure | - | - | | + + + + + | Pulse | - | - | | + [...] + + + + | Weight | 82.1 kg (181 lb) | 08/08/2017 8:54 AM | | | | | PDT | | + + + + + | Height | 180.3 cm (5' 11") | 08/08/2017 8:54 AM | | | | | PDT | | + + + + + | Body Mass Index | 25.24 | 08/08/2017 8:54 AM | | | | | PDT | | + + + + + documented in this encounter Plan of Treatment Not on filedocumented as of this encounter Visit Diagnoses Not on filedocumented in this encounter
--- OUTSIDE RECORDS SUMMARY | ~2020-03-03 | XMS | Encounter Summary ---
Demographics + + + | Address | [address] | | | [place] [address] | + + + | Home Phone | | + + + | Preferred Language | Unknown | + + + | Marital Status | | + + + | Worship Affiliation | NON | + + + | Race | White | + + + | Ethnic Group | Not or | + + + Author + + + | Author | [facility] | + + + | Organization | [facility] | + + + | Address | Unknown | + + + | Phone | Unavailable | + + + Support + + +---------+ + | Name | Relationship | Address | Phone | + + +---------+ + | None Per Pt | ECON | Unknown | Unavailable | + + +---------+ + Care Team Providers + +------+ + | Care Home Appliance Installer Name | Role | Phone | + [...] fixation of | | | | Rd [facility] | [address] | acetabular | | | | Hospital Admitting | [place], [place] | lesly-prosthetic | | | | Desk Located on the | [id number] | fracture | | | | 9th floor | [phone] | | | | | [place], [place] | | | | | | [address] | | | +--------+---------+ + + + [...] documented as of this encounter Discharge Summaries PriscillaJoanne benson AGACNP - 06/06/2018 4:28 PM PSTFormatting of this note might be differe nt from the original. [facility] [place] DEPARTMENT OF ORTHOPAEDICS & REHABILITATION INPATIENT HOSPITAL DISCHARGE SUMMARY & INTERDISCIPLINARY INSTRUCTIONS Patient: Lilian Hurst CSN: [id number] Admission Date: 05/31/2018 Discharge Date: 06/06/2018 Attending Physician: Nguyễn Shepard MD PCP: SHAHEEN Love Service: [facility] Orthopaedics & Rehabilitation Diagnoses Principal [...] they suspect your wound is infected. Call [facility] Orthopedics first at . Activity NON Weight bearing on left leg. For approximately 4 weeks to be determined at postoperative clinic visit. Condition on Discharge Stable Follow-Up Appointments ORTHOPEDICS OUTPATIENT CLINIC: Future Appointments Provider Department Dept Phone Center 07/02/2018 1:40 PM Nguyễn Chance Working Orthopaedics at [facility] [phone] Orthopedics PCP: As needed for any medical [...] mg by mouth once daily at bedtime. [facility] Orthopaedic Service Pain Policy At [...] administration instructions. - Call Orthopedic Clinic at [phone] if any persistent, localized swelling that does [...] and ask for the orthopaedic surgery resident conference interpreter. Additional Post-Op Instructions / What to Expect [...] feel that you will need more, call [phone] during business hours in order to get [...] a SNF "I certify that post-hospital inpatient snf facility care is medically necessar y on [...] Condition on Discharge: Improved Discharging Patient To: Prison Facility Date and Time of Discharge Summary Completion: 06/07/2018, 2:45 PM Discharging Provider: ELISE Mckeon Discharging Attending: Nguyễn Shepard MD Thank you for the opportunity to take care of Lilian Hurst during this inpatient stay, it has been our pleasure. ELISE Mckeon [facility] Department of Orthopaedics & Rehabilitation [address] [place] [address] Mail Code: OP31 [facility] [id number] documented in t his encounter Medications at [...] 29 kg/m. I/O Intake/Output 06/04 07 - 06/05 0700 06/05 07 - 06/06 0700 06/06 07 - 06/07 0700 P.O. 320 700 325 [...] to have left pelvic fracture, transferred to [facility] Orthopedic Surgery service for surg ical management. [facility] initially consulted for pre-operative evaluation. Nausea/Vomiting [...] says he uses sparingly. On arrival to [facility] he was on 4 L [...] Attending Physician Clinical Hospitalist Services [facility] Pager [phone] Please call or page me with any questions or concerns. Doe Newman MD - 06/06/2018 9:11 AM PST Orthopaedic Surgery Progress Note Patient: /Age: MRN: CSN: Date: Admission Date: Hospital Day: Orthopaedic Attending: Lilian Hurst 1935 83 y.o. [id number] 06/06/2018 05/31/2018 6 Nguyễn Shepard MD Diagnosis: [...] index is 27.41 kg/m. I/O Intake/Output 06/03 07 - / 0700 06/04 07 - 06/05 0700 06/05 07 - 06/06 0700 P.O. 1300 320 400 I.V. 1025 [...] to have left pelvic fracture, transferred to [facility] Orthopedic Surgery service for surg ical management. [facility] initially consulted for pre-operative evaluation. Nausea/Vomiting [...] says he uses sparingly. On arrival to [facility] he was on 4 L [...] Attending Physician Clinical Hospitalist Services [facility] Pager [phone] Please call or page me with any questions or concerns. Doe Newman MD - 06/05/2018 7:10 AM PST Orthopaedic Surgery Progress Note Patient: /Age: MRN: CSN: Date: Admission Date: Hospital Day: Orthopaedic Attending: Lilian Hurst 1935 83 y.o. [id number] 06/05/2018 05/31/2018 5 Nguyễn Shepard MD Diagnosis: [...] ORTHO TRAUMA & FRACTURE, ASAD Conti - (Suness a nd Working) Subjective: Denies [...] refill < 2 seconds Doe Gongora MD [facility] Department of Orthopaedics & Rehabilitation [address] [place] [address] Mail Code: OP31 [facility] [id number] Kg Snider MD - 06/04/2018 10:03 AM [...] 27.41 kg/m. I/O Intake/Output 06/02 0700 06/03 0706/04 0700 P.O. 765 1300 I.V. 1025 Total [...] to have left pelvic fracture, transferred to [facility] Orthopedic Surgery service for surg ical management. [facility] initially consulted for pre-operative evaluation. Nausea/Vomiting [...] says he uses sparingly. On arrival to [facility] he was on 4 L [...] Attending Physician Clinical Hospitalist Services [facility] Pager [phone] Please call or page me with any questions or concerns. oulton, Devendra Allen MD - 06/04/2018 7:48 AM PST Orthopaedic Surgery Progress Note Patient: /Age: MRN: CSN: Date: Admission Date: Hospital Day: Orthopaedic Attending: Lilian Hurst 1935 83 y.o. [id number] 06/04/2018 05/31/2018 4 Nguyễn Shepard MD Diagnosis: [...] to make a follow up appointment in [facility] 1 weeks with ORTHO TRAUMA & FRACTURE, Ana Gill, COMPUTER TEACHER - (Jie a nd Working) Subjective: Has [...] refill < 2 seconds Doe Gongora MD [facility] Department of Orthopaedics & Rehabilitation [address] [place] [address] Mail Code: OP31 [facility] [address] Devendra Scales MD - 06/03/2018 8:32 PM PST [facility] DEPARTMENT OF ORTHOPAEDICS & REHABILITATION POST-OPERATIVE CHECK [...] Surgery Resident 06/03/2018, 8:33 PM [facility] Department of Orthopaedics & Rehabilitation [address] [place] [address] Mail Code: OP31 [facility] [address] Jade Messina MD - 06/02/2018 8:36 AM [...] Please call Orthopaedic Trauma and Fracture at [phone] to schedule a followup within 2 weeks from discharge. ALEXA SEARS MD Pager: [phone] 06/02/2018 Doe Newman MD - 06/01/2018 8:27 AM PST Orthopaedic Surgery Progress Note Patient: /Age: MRN: CSN: Date: Admission Date: Hospital Day: Orthopaedic Attending: Lilian Hurst 1935 83 y.o. [id number] 06/01/2018 05/31/2018 1 Nguyễn Shepard MD Diagnosis: 1. Left Acetabulum Fracture 2. Left Inferior Pubic Ramus Fracture Procedure(s) and Date(s): Plan for OR Sunday for perc vs open left acetabular reduction/fixation Assessment & Plan: Lilian Hurst is a 83 y.o.M with the diagnoses/procedures listed above. Plan: -OK for diet now, NPO midnight Sunday for OR -OK for VTE ppx, hold VTE ppx Sunday midnight for OR -NWB LLE -PT/OT -Pain Control [...] to make a follow up appointment in [facility] 2-3 weeks with ORTHO TRAUMA & FRACTURE, [...] not performed Doe Gongora MD [facility] Department of Orthopaedics & Rehabilitation [address] [place] [address] Mail Code: OP31 [facility] [address] documented in this enco unter Procedure Notes Nguyễn Shepard MD - 06/03/2018 4:58 PM PSTAssociated Order(s): OPERATION RECORDProced ure(s): ME OPEN EMERGENCY REGISTRAR FIX COMPLEX ACETABUL FXPre-Procedure Diagnose(s): Closed fracture of both anterior and posterior columns of left acetabulum (HCC)Post-Procedure Diagnose(s): Clos ed fracture of both anterior and posterior columns of left acetabulum (HCC)Date of Service: 06/03/2018 Attending Surgeon: Nguynễ Shepard MD Chairperson Anesthesiology(s): Devendra Da Silva MD. Preoperative Diagnosis: Left [...] attempt to do him percutaneously. He understan aureliano and has consented. He understands that the risks of the operation today include nonunion , malunion, loss of reduction, breakage of hardware, need for repeat surgery, and infection, and the risks of anesthesia including . He consented. Description Of Procedure: Lilian was brought back to the operative table. General endotr acheal anesthesia was induced. He was transferred to the [facility]. A sacral bump consi sting of [...] 3 incisions. The patient was [facility] and transferred to the [...] problem was referred to my care at [facility] by another orthopaedic surgeon. The patient i s from the [facility] and traveled many miles to get to [facility], bypassing several other spitals due to [...] surface. The pateint has limited mobility postoper atively making postop care more difficult to render, and is quite noncompliant due to a comb ination of dementia and stubbornness which increases the risk of post operative complication dramatically. Please reflect all of this in the nature of the patients care. Nguyễn Shepard MD ZMW/PRINCE /[id number] documented in this encounter Consult Notes Teresita Bobo PA-C - 06/05/2018 9:22 PM PSTINPATIENT GERIATRICS CONSULT - FOLLOW U P Admission Date: 05/31/2018 Hospital Day: 5 Referring Provider: Nguyễn Shepard MD Consulting Provider: TERESITA BOBO PA-C PCP: SHAHEEN Gustafson Consult Question: frailty and delirium management ID: Lilian Hurst (Frank) is an 83 y.o. 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 Please page consult pager [phone] if new questions for the geriatrics team [...] Sherly Ellison I spent 22 minutes in vjuf-to-uwub care of Mr Hurst and in discussion on his unit with other providers, with > 50% in counseling/coordination of care regarding delirium management and prevention, pain control, mobility, and chart review and documentation on the unit. ROBEL Mohan PA-C Inpatient Geriatrics Consult Service Division of Internal Medicine & Geriatrics [facility] Pager: [phone] aShannon ramos H - 06/04/2018 6:04 PM PST Medical Student Gastroenterology Consult Note 06/04/2018 REASON FOR CONSULT: brown / black emesis concerning for GI bleed REFERRING TEAM/ATTENDING: MARTIN / Daniel BAUTISTA IMPRESSION Resolving postoperative ileus [...] the gastroenterology attending, Dr. Nguyen. Jose Guadalupe Santiago, MS4 Pgr [phone] HISTORY OF PRESENT ILLNESS Lilian Hurst is a 83 y.o. male with a past medical history significant for hemodynamic ally significant gastrointestinal bleed in 2013 on omeprazole, ongoing SVT, choledocholithia sis and cholangitis with ERCP s/p sphincterotomy and stenting on 06/2017, cholecystectomy, as piration pneumonitis, COPD, and hypertension. He was transferred to [facility] for left pelvic fracture now s/p [...] on file Social History Narrative Originally from [place], [place], but moved for a time in his teens to [facility]. 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 Enjoys Vacc[place] his garden each summer, watching westerns, and game shows. Lives in his own home next doo r to his daughter with his Mirian saez. Typical day: wakes at 6 am, putters in the kitchen; breakfast is two homemade oatmeal cook ies, coffee and tangerines. Mirian De Anda wakes around 9 and he feeds her. Spends a few hours on [employer] "to see what everyone is talking about," [...] HOSPITALIST DISCHARGE SUMMARY Patient ID: Lilian Hurst [id number] 78 y.o. 1935 Admit date: 08/10/2013 Discharge [...] loss. The patien t was brought to [facility] and was transferred to [facility] for a GI evaluation. Dr. Ca from gastroenterology was consulted because of the ac eyak GI bleed. The patient was started on [...] endoscopy [facility] Serial hemoglobin and hematocrit were checked. [...] y.o. 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 - Expect Carlos OOB to chair TID and for each meal. [...] encephalopathy, improving #Procedural sedation #Acute fracture pain #Rtf-[id number]-[id number] status Suspect that Carlos exhibited acute hyperactive [...] feet. #Transitions of care Daughter hopeful that Carlso may get to rehab in the [place] area prior to being transporte d home by family. Care Team Coordination: Discussed with Hallie CONNELL (ortho), RN Obdulia, PT susan Tejada RN; background information collected by Rosita via discussion [...] BOBO PA-C Inpatient Geriatrics Consult Service Pager [phone] Consult Pager [phone] HPI: Lilian Hurst is an 83 y.o.man [...] earlier today and have now returned to [place] and [place]. Had onset of abdominal pain and bloating [...] Diagnosis Date COPD (chronic obstructive pulmonary disease) ([facility]) GI bleed 2013 esophageal ulcer s/p clipping 2013 HTN (hypertension) Normocytic anemia Hgb around 11 in 2013 Prediabetes SVT (supraventricular tachycardia) ([facility]) unclear hx. "Possible SVT" per chart in 2012. Additional PMH per CareEverywhere records: Atrial fibrillation (HCC) Choledocholithiasis Crush injury lower extremities 1966 Left leg and foot Diverticulosis of colon Hip fracture (HCC) 2003 Left Hyperlipidemia Inguinal hernia Osteoarthritis, generalized Panic [...] Social History Social History Narrative Originally from [place], [place], but moved for a time in his teens to [facility]. 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 Enjoys zeroboundin g his garden each summer, watching westerns, and game shows. Lives in his own home next doo r to his daughter with his Mirian saez. Typical day: wakes at 6 am, putters in the kitchen; breakfast is two homemade oatmeal cook ies, coffee and tangerines. DogMirian wakes around 9 and he feeds her. Spends a few hours on [employer] "to see what everyone is talking about," [...] moist mucous membran es, non-erythematous, no exudate. [place]. Dentition in fair repair. Cardiovascular: RRR with intermittent ectopic beats, no murmurs/rubs/gallops. No lower extr emity edema. Respiratory: Decreased breath sounds in bases L>R, otherwise clear. Breathing comfortably o n 2LPM by NC. Skin: Warm, dry, without rashes. Nails well trimmed. 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 Enjoys g rowing his garden each summer, [...] LIP to utilize delirium order [facility] to identify cause and guide appropriat e [...] Precious Bobo, Geriatric[place] [phone] with any further nursing questions or concerns, if you would like t o speak with our inspector balance wheel motion conference interpreter, they can be reached at pager [phone]. Rosita Paul RN, [place] Geriatric Nurse Educator/PPL p-[phone] Vic Zhang MD - 06/03/2018 9:12 AM PST HOSPITALIST INPATIENT PROGRESS NOTE Author: Vic Petty MD, PhD PCP: SHAHEEN Love Hospital Day:3 ID: Lilian Hurst is a 83-year-old man with COPD and HTN who presented to an OSH after GLF, found to have left pelvic fracture, transferred to [facility] Orthopedic Surgery service for surgical management. [facility] consulted for pre-operative evaluation. 24h Events: --Started [...] Outs: Intake/Output Summary (Last 24 hours) at 01/14/19 0912 Last data filed at 06/03/18 0400 [...] to have left pelvic fracture, transferred to [facility] Orthopedic Surgery service for surg ical management. [facility] consulted for pre-operative evaluation. # Pre-operative risk [...] supplemental oxygen at home or inhalers, b juan antonio has a nebulizer device which he says he uses sparingly. On arrival to [facility] he was on 4L NC and [...] PhD Clinical Hospitalist and Medicine Teaching Services [facility] Pager [phone] I spent more than 26 minutes [id number] with the patient of which greater than 50% was sp ent counseling the patient and in coordination of care with Nursing and Orthopedic Surgery. Tabitha Segal PharmD - 06/03/2018 9:10 AM PSTFormatting of [...] best of my knowledge. Home medication assessment: FOREST ENGINEER medications updated per verbal [place] fill history [...] regarding this information please contact pharmacy, pager [phone] Thank you, Tabitha Calvert PharmD Critical Care [...] to have left pelvic fracture, transferred to [facility] Orthopedic Surgery service for surgical management. [...] to have left pelvic fracture, transferred to [facility] Orthopedic Surgery service for surg ical management. [facility] consulted for pre-operative evaluation. # [...] says he uses sparingly. On arrival to [facility] he was on 4L NC and [...] Hospitalist and Medicine Teaching Services [facility] Pager [phone] I spent more than 28 minutes ytmn-[id number] with the patient of which greater than [...] to have left pelvic fracture, transferred to [facility] Orthop edic Surgery service for surgical management. [facility] consulted for pre-operative evaluation. History derived from patient, daughter at bedside, and chart review. Patient was changing battery in his truck when he fell on his left hip. Unable to bear joaquim ght and experienced severe pain. BIBA to OSH where imaging showed a comminuted left pelvic fracture involving acetabulum, ischium and left pubic bone with moderate hematoma. He was t ransferred to [facility] Orthopedic Surgery for surgical management. Current [...] done PFTs. [facility], but uses it sparingly. At baseline, [...] on 4L once he ar rived at [facility]. He has been sating between 88-94%, [...] (hypertension) Normocytic anemia Hgb around 11 in 2014 Prediabetes SVT (supraventricular tachycardia) (HCC) unclear hx. "Possible SVT" per chart in 2013. Past Surgical History: Past Surgical History Procedure Laterality Date Treatment of fracture of lower leg 2004 Right knee surgery knee cap surgery Ankle surgery left ankle crushed in accident Back surgery 1981 Social History: Social History Social History Marital [...] to have left pelvic fracture, transferred to [facility] Orthopedic Surgery service for christina gical management. [facility] consulted for pre-operative evaluation. # Pre-operative risk [...] supplemental oxygen at home or inhalers, b juan antonio has a nebulizer device which he says he uses sparingly. On arrival to [facility] he was on 4L NC and [...] PhD Clinical Hospitalist and Medicine Teaching Services [facility] Pager [phone] I spent 75 minutes in care of [...] Sunday at midnight for OR Sunday - ELLEN SEARS MD Pager: [phone] 05/31/2018 [facility] DEPARTMENT OF ORTHOPAEDICS & REHABILITATION HISTORY & [...] No date: COPD (chronic obstructive pulmonary disease) ([facility]) 2014: GI bleed Comment: esophageal ulcer s/p clipping 2013 No date: HTN (hypertension) No date: Normocytic anemia Comment: Hgb around 11 in 2013 No date: Prediabetes No date: SVT (supraventricular tachycardia) ([facility]) Comment: unclear hx. "Possible SVT" per chart [...] & FRACTURE, The orthopaedics consult pager is #[phone], please call with questions. Doe Gongora MD, MPH Orthopaedic Surgery Resident p [phone] signed by Nguyễn Shepard MD at 06/01/2018 [...] & Rehabilitation - Orthopaedic Trauma [facility] documented in this encounter Miscellaneous Notes Plan [...] to get out of this bed Pain: 3/10 Objective: Upon arrival to room pt found [...] light/urinal/phones/yankour suction all in reach. Nurse notified. [facility] BASIC MOBILITY Difficulty turning over in bed [...] to do/total assistance - Total/Dependen t Assist [facility] Basic Mobility Total Score [address] [facility] Short Form - Basic Mobility: CMS Modifier [...] care Equipment recommendations: to be determined . ANANYA Toney [id number] Rui - Kiah Corral RN - 06/05/2018 9:20 PM PSTNursing Handoff Patient Daily Goal: sleep (06/05/182039) Patient Specific Preferences: cluster care (06/05/182039) [facility] IP NURSE HANDOFF: [facility] course [...] emesis x3 in AM Hx: COPD, HTN, [place] 2018, stents, CHF, SVT SAFETY Patient/Family Target: [...] weight - done 06/06 AM - MD herron with O2 sats 89%-94% on 2L - Strict I & Os - tele for tachycardia & irregular rate EDUCATION NEEDS: D/C PLAN: To SNF TBD andoff - Herson Rizvi RN - 06/05/2018 7:37 PM PSTNursing Handoff Patient Daily Goal: sleep (06/04/182024) Patient Specific Preferences: cluster care (06/04/182024) [facility] IP NURSE HANDOFF: [facility] [...] emesis x3 in AM Hx: COPD, HTN, [place] 2017, stents, CHF, SVT SAFETY Patient/Family Target: Patient [...] minutes of therapeutic exercise Patient seen on 9 Hospital Day: 5 Present throughout session: patient [...] level of care DME Needs: defer Sherly Ellison PT and[place] - Piper Corral RN - 06/04/2018 11:12 PM PSTNcas Handoff Patient Daily Goal: sleep (06/04/182024) Patient Specific Preferences: [facility] care (06/04/182024) [facility] IP NURSE HANDOFF: [facility] [...] emesis x3 in AM Hx: COPD, HTN, [place] 2018, stents, CHF, SVT SAFETY Patient/Family Target: [...] D/C PLAN: To SNF when medically stable Rui - Herson Rizvi RN - 06/04/2018 6:57 PM PSTNursing Handoff Patient Daily Goal: Pain control, sleep (06/02/182017) Patient Specific Preferences: cluster care (06/01/182041) [facility] IP NURSE HANDOFF: [facility] course events: 05/31: tx from [facility]. Fell 05/30- left hip and pelvic fx 06/01: skeletal traction 06/02: Elevated HR EKG showed SR with PACs. Takes dilt at baseline (none since admission), s tarted on 6.25 mg metop noc 06/02. 06/03 early am 4 beats of v-tach 06/04: coffee ground emesis x3 in AM Hx: COPD, HTN, [place] 2018, stents, CHF, SVT SAFETY Patient/Family Target: [...] when medically stable lan of Care - Trive tte, Sherly, PT - 06/04/2018 4:58 PM PST Physical Therapy Evaluation [id number] LILIAN HURST [facility] Day: 4 Date of : 1935 Start [...] Diagnosis Date COPD (chronic obstructive pulmonary disease) ([facility]) GI bleed 2013 HTN (hypertension) Normocytic anemia Prediabetes SVT (supraventricular tachycardia) ([facility]) Past Surgical History: Procedure Laterality Date ANKLE [...] better, get home when he can Communication/Barriers: french/none Pain: indicates 12/28 Vital Signs: see doc [...] x 3' bed to chair Outcome Measure: [facility] BASIC MOBILITY Difficulty turning over in bed [...] to do/total assistance - Total/Dependen t Assist [facility] Basic Mobility Total Score [address] [facility] Short Form - Basic Mobility: CMS Modifier [...] bearing status, activity programming, sequencing through tr ansfers Ended session: Patient left in chair with [...] the discharge summary. lan of Care - Hansa Guerrero i, RIVKA - 06/04/2018 4:36 PM PSTProblem: LUIS FERNANDO Goals & Interventions Goal: Effective Family Coping Outcome: Goal met Date Met: 06/04/18 Referral Received From: Unit [facility] called - patient's daughter requesting to speak with LUIS FERNANDO Intervention: Called and spoke with . She says that she needs to return to [place] to get back to work and take care of both her and patient's home ( lives next door to [place]). She is asking for information on getting Power of Sk[employer] paperwork so she can take care o f patient's finances and pay his bills. LUIS FERNANDO provided following information: -Patient will need to be deemed cognitively clear and able to consent for himself in order to sign POA forms - can locate POA forms online (many options available on internet, due to fact that P OA is legal document- [facility] staff are not allowed to provide POA forms to patients or familie s as it would constitute 'legal advice' -Form will require notary. [facility] does not have notaries on staff. Provided [...] accounts and pay bills on his beh ruel. This is often faster and easier than process to get POA in place. also requesting letter for her employer verifying [place]'s admission and her need to miss work to be at bedside. LUIS FERNANDO drafted letter and emailed it and notary list to email addresses provided: [email or web address] and [email or web address] Recommendation/Plan/Referrals: will work on POA. Provided her with contact info for mobile [employer]. LUIS FERNANDO provided letter for 's employer. No other social work needs identified at this time. Social work referral completed. Closing case. See medical and ancillary service notes for other needs and care plans. Please call or page if additional social work needs are identified. Hansa Bhatt LCSW Rotary Driller Helper- 13K Oncology/7A Medical ICU/ 9K Orthopedics Phone: [phone] Pager:[phone] andoff - Maricruz Hicks RN - 06/04/2018 8:38 AM PSTNursing Handoff Patient Daily Goal: Pain control, sleep (06/02/182017) Patient Specific Preferences: cluster care (06/01/182041) [facility] IP NURSE HANDOFF: [facility] course events: 05/31: tx from [facility]. Fell 05/30- left hip and pelvic fx 06/01: skeletal traction 06/02: Elevated HR EKG showed SR with PACs. Takes dilt at baseline (none since admission), s tarted on 6.25 mg metop noc 06/02. 06/03 early am 4 beats of v-tach Hx: COPD, HTN, [place] 2018, stents, CHF, SVT SAFETY Patient/Family Target: [...] coughing. Agitated and confused. Precedex dosing per jonas rojo. 12 ld being obtained. Possible Haldol dosing. 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 Hx copd. Goal sats 88-94. Cardiac: BP: 128/72 HR: 73. Hx svt, vt, afib and nsr with pvc's and pac's GI: Nausea/Vomiting Status: No Signs/Symptoms: Interventions: Assessment: Comments: denies nausea : Last void: 1500 Contact Name: Nathan [phone] Contact Number: Nathan [phone] Family contacted: Yes Comment:will update prior to tranfser Belongings:returning PIV x 2. Surgical incisions CDI. Confused as in preop. Oriented x self only and follows commands. Restless and tries to get oob. rief Op Note - Nguyễn Shepard MD - 06/03/2018 2:12 PM PSTFormatting of this note might be different from the o riginal. [facility] Department of Orthopaedics & Rehabilitation BRIEF OPERATIVE NOTE Patient: /Age: MRN: CSN: Date: Admission Date: Hospital Day: Lilian Hurst 1935 83 y.o. [id number] 06/03/2018 05/31/2018 3 Attending Surgeon: Nguyễn Shepard MD Chairperson Anesthesiology(s): 1. Mitesh Da Silva MD Preoperative Diagnosis(es): [...] to make a follow up appointment in [facility] 4 weeks with MD Drea 8. Anticipated Discharge: 1-3 days Nguyễn Shpeard MD Orthopaedic Trauma andoff - Lakshmi Ortiz RN - 06/02/2018 11:07 PM PSTNursing Handoff Patient Daily Goal: Pain control, sleep (06/02/182017) Patient Specific Preferences: cluster care (06/01/182041) [facility] IP NURSE HANDOFF: [facility] course events: 05/31: tx from [facility]. Fell 05/30- left hip and pelvic fx 06/01: skeletal traction 06/02: Elevated HR EKG showed SR with PACs. Takes dilt at baseline (none since admission), s tarted on 6.25 mg metop noc 06/02. 06/03 early am 4 beats of v-tach Hx: COPD, HTN, [place] 2018, stents, CHF, SVT? SAFETY Patient/Family Target: [...] (06/01/182041) Patient Specific Preferences: cluster care (06/01/182041) [facility] IP NURSE HANDOFF: [facility] events: 05/31: tx from [facility]. Fell 05/30- left hip and pelvic fx 06/01: skeletal traction Hx: COPD, HTN, [place] 2018, stents, CHF COMFORT/ANXIETY/BEHAVIOR Patient/Family Target: Manage [...] then dropping to 70-80s with irregular beats. [facility] consult notified and patient placed on tele; [...] for tachycardia & irregular rate -NPO at [place]; pre-op check list tonight EDUCATION NEEDS: D/C PLAN: OR Sunday morning Barriers to discharge: OR Sunday andoff - Karen Corral RN - 06/01/2018 11:31 PM PSTNursing Handoff Patient Daily Goal: sleep, bowel movement (06/01/182041) Patient Specific Preferences: cluster care (06/01/182041) [facility] IP NURSE HANDOFF: [facility] events: 05/31: tx from [place]. Fell 05/30- left hip and pelvic fx 06/01: placed in skeletal traction 15 lbs Hx: COPD, HTN, [place] 2018, stents, CHF COMFORT/ANXIETY/BEHAVIOR Patient/Family Target: Manage [...] Patient Daily Goal: RN advocacy: safety (06/01/18 2622) Patient Specific Preferences: cluster care (05/31/182046) [facility] IP NURSE HANDOFF: [facility] events: 05/31: tx from [place]. Fell 05/30- left hip and pelvic fx 06/01: skeletal traction Hx: COPD, HTN, [place] 2018, stents, CHF COMFORT/ANXIETY/BEHAVIOR Patient/Family Target: Manage [...] OR Sunday lan of Care - James Connolly, PT - 06/01/2018 4:54 PM PSTPhysical Therapy Contact Note: Patient in traction, with scheduled OR on Saturday 06/03. PT will follow post OR. James Tucker PT, DPT Pager: [phone] lan of Care - Bob Hernandez RCP - 06/01/2018 1:03 [...] (05/31/182046) Patient Specific Preferences: cluster care (05/31/182046) [place] IP NURSE HANDOFF: [facility] events: 05/31: tx from [facility]. Fell 05/30- left hip and pelvic fx Hx: COPD, HTN, [place] 2018, stents, CHF COMFORT/ANXIETY/BEHAVIOR Patient/Family Target: Manage [...] andoff - Kevin, Mary toscano RN - 05/31/2018 6:55 PM PSTNursing Handoff [facility] IP NURSE HANDOFF: [facility] events: 05/31: tx from [facility]. Fell 05/30- left hip and pelvic fx Hx: COPD, HTN, [place] 2018, stents, CHF COMFORT/ANXIETY/BEHAVIOR Patient/Family Target: Manage [...] [facility] events: 05/31 tx from [facility] . Fell 05/30- left hip and pelvic fx Hx: COPD, HTN, [place] 2018, stents, CHF Recommendations Forward: Takes pills whole with water Was receiving 1mg IV dilaudid per report from [facility] MOBILITY: bedrest MOBILITY PLAN:- LAST TIME MOBILIZED:- PAIN: 5mg oxycodone ORDER FOLLOW-UP: - EDUCATION NEEDS: - D/C PLAN: surgery sunday ransfer Note - Gabriela Espinoza, D.O. - 05/30/2018 7:25 PM PST INPATIENT MEDICINE TRANSFER CENTER & [facility]TRA[facility]HOSPITAL ACCEPT NOTE Medicine Hospitalist Attending Author: Mehran Espinoza DO PCP: SHAHEEN Love [address] / [place] [address] FAX: [phone] I was called by transfer line to discuss possible transfer of Lilian Hurst to [facility] Medicine Service. The history is obtained from referring provider and I have not corrob orated history with patient or record, as [facility]. Referring Physician: Dr. Cabello Referring Site (or [facility] Service): [facility] Specialists involved: , orthopedics Reason for Transfer/Admission: fractured pelvis Floor or ICU Request: Floor HPI/PMH/Exam: Lilian Hurst is an 83 year old man with COPD, hypertension, prior [place], mild chf, who pr esented with a left acetabular fracture after a ground-level fall. Had a ground-level fall this morning on ice. 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 Now has complex acetabular and pelvic fracture. Has multiple medical comorbidities including COPD, hypertension, prior [place], "mild chf", none of which appear to b e active currently. Highly functional at baseline. Current Vitals: 97.9, heart rate 65, 153/85, 92% on RA Pertinent Studies: Labs: Hgb 14.5, platelets 159; chemistries and EKG within normal limits Imaging: chest x-ray within normal limits Procedures: not applicable Code Status: FULL code Disposition: (accepted or declined) After discussion with the emergency department and phys onrgr-mo-mao-day, ultimately admitted to orthopedics as primary with [facility] consulting. Please contact [facility] when the patient arrives and we will provide medical and lesly-operative consultation. Mehran Espinoza D.O. Machine Repairer Maintenancesafety deposit clerk [facility] Clinical Hospitalist Service Pager [phone] ransfer Note - Daniela Clarke MD - 05/30/2018 6:00 PM [id number] M copd htn prior [place] CHF Left acetabular fracture after GLF Ortho [...] help if needed Daniela Daigle MD DIONNE [facility] Department of Emergency Medicine documented in [...] LABORATORY | [address] | [place] [address] | | | SERVICES, CORE | RICHARD [...] | | | LABORATORY | | | YEMENI | | | SERVICES, | | | [...] Interpretive Information: <60 mL/min/1.73 sq m | SARA, CORE | | Chronic Kidney Disease <15 [...] | + + + + + | [facility] | [address] | [place] [address] | | | YOKASTA RUIZ | RICHARD [...] | + + + + + | [facility] | [address] | [place] [address] | | | SERVICES, CORE | RICHARD [...] | | | LABORATORY | | | YEMENI | | | SERVICES, | | | [...] | + + + + + | [facility] | [address] | [place] [address] | | | SERVICES, CORE | RICHARD [...] LABORATORY | [address] | [place] [address] | | | SERVICES, CORE | PARK [...] | + + + + + | [facility] | [address] | [place] [address] | | | SERVICES, [facility] | [address] | | | + + + + + X-RAY PORTABLE 2 VIEW ABDOMEN (KUB AND UPRIGHT) (06/04/2018 2:32 PM PST) + + | Specimen | + + | | + + + + + | Narrative | Performed At | + + + | EXAM: ME 2 VIEW ABDOMEN (KUB AND UPRIGHT) History: [...] Note | + + | Service Account, Stephanieant Res In Interface - 06/04/2018 4:24 PM PST EXAM: ME 2 VIEW | | ABDOMEN (KUB AND [...] LABORATORY | [address] | [place] [address] | | | SERVICES, CORE | PARK [...] LABORATORY | [address] | [place] [address] | | | SERVICES, CORE | [address] | | | + + + + + INR (06/04/2018 9:37 AM PST) + +-------+ + + + | Component | Value | Ref Range | Performed | Pathologist | | | | | At | Signature | + +-------+ + + + | INR | 1.04 | 0.90 - 1.20 INR | [facility] | | | | | | LABORATORY [...] LABORATORY | [address] | [place] [address] | | | SERVICES, CORE | PARK [...] | | | LABORATORY | | | YEMENI | | | SERVICES, | | | [...] the MDRD equation recommended by the | [facility] | | National Kidney Disease Education Program. Estimated GFR | LABORATORY | | Interpretive Information: <60 mL/min/1.73 sq m | SARA, CORE | | Chronic Kidney Disease <15 [...] + + | Performing | Address | City/State[facility] | Phone Number | | Organization | | | | + + + + + | [facility] | [address] | [place] [address] | | | SARA, YOKASTA | RICHARD [...] | | Attending Surgeon: Nguyễn Shepard MD Chairperson Anesthesiology(s): Devendra Allen | | MD Avinash. Preoperative [...] He | | was transferred to the [facility] flat top. A sacral bump consisting [...] We | | then proceeded to the [facility] for the start point for the LC2 [...] problem was referred to my care at [facility] by another | | orthopaedic surgeon. The patient is from the [place] area and traveled many miles to | | get to [facility], bypassing several other hospitals due [...] nature | | of the patients care.Nguyễn Shepard, MDZMW/MODLDD: 06/03/2018 14:26:09DT: | | 06/03/2018 16:58:33Job #: [id number] | + + MAGNESIUM, PLASMA (06/03/2018 4:37 [...] LABORATORY | [address] | [place] [address] | | | YOKASTA RUIZ | RICHARD [...] OF | [address] | [place], [place] | | | CARDIOLOGY | [facility] | [address] | | + + + + + [...] TOBAR | [address] | [place], [place] | | | [facility] | [address] | [address] | | | TESTS | | | | + + + + + X-RAY PELVIS 4+ VIEWS (06/03/2018 2:05 [facility]) + + | Specimen | + + [...] [facility] | [address] | [place], [place] | | | [facility] | [address] | [address] | | | TESTS | | | [...] LABORATORY | [address] | [place] [address] | | | SERVICES, CORE | PARK [...] | | | LABORATORY | | | YEMENI | | | SERVICES, | | | [...] the MDRD equation recommended by the | [facility] | | National Kidney Disease [...] | + + + + + | [facility] | [address] | [place] [address] | | | YOKASTA RUIZ | RICHARD [...] Note | + + | Service Account, [employer] Res In Interface - 06/02/2018 11:23 AM [...] + + + + | LILIANA-KAJAL | 484 | ms | [facility] DEPT [...] DEPT OF | [address] | [place], [place] | | | CARDIOLOGY | [address] | [address] | | + + + + + [...] + + + + + | [facility] [employer] | [address] | [place] [address] | | | SERVICES, CORE | RICHARD [...] + + | [facility] | [address] | [place] [address] | | | SERVICES, CORE | PARK [...] | | | LABORATORY | | | YEMENI | | | SERVICES, | | | [...] the MDRD equation recommended by the | [facility] | | National Kidney Disease [...] LABORATORY | [address] | [place] [address] | | | SERVICES, CORE | PARK [...] [facility] | [address] | [place] [address] | | | SERVICES, | [address] [...] LABORATORY | [address] | [place] [address] | | | SERVICES, | [address] [...] | + + + + + | [facility] | [address] | [place] [address] | | | SERVICES, CORE | RICHARD [...] MD 06/01/2018 6:02 PM Preliminary: Fortino | Lazarus Denis MD Dictation initiated: Fortino Denis MD [...] | [facility] | [address] | [place] [address] | | | SERVICES, CORE | PARK [...] | | | LABORATORY | | | YEMENI | | | SERVICES, | | | [...] the MDRD equation recommended by the | [facility] | | National Kidney Disease Education Program. [...] | + + + + + | [facility] | [address] | [place] [address] | | | SERVICES, YOKASTA | RICHARD [...] Denis MD Dictation initiated: Fortino Qiu | Lazarus Denis MD 06/01/2018 9:22 AM | | + + + + + | Procedure Note | + + | Service Account, Radiant Res In Interface - 06/01/2018 9:25 AM [...] LABORATORY | [address] | [place] [address] | | | SERVICES, CORE | PARK [...] | | | LABORATORY | | | YEMENI | | | SERVICES, | | | [...] | + + + + + | [facility] [employer] | [address] | [place] [address] | | | SERVICES, CORE | RICHARD [...]
--- OUTSIDE RECORDS SUMMARY | ~2020-03-03 | XMS | Encounter Summary ---
Demographics + + + | Address | [address] | | | [place] [address] | + + + | Home Phone [...] Team Providers + +------+ + | Care Police Commissioner Name | Role | Phone | + [...] | | | | | [place] | [address] | | | | | thiasis | Mitesh Pérez | [place] | | | | | Procedures | Carolina sEtevez | [place], [address]th | | | | | CONSULT TO | [place], [place] | floor | | | | | GI | [address] | [place], [place] | | | | | PROCEDURE: | Phone: | [phone] | | | | | ERCP / | [phone] | Phone: | | | | | BILIARY | Fax: | [phone] | | | | | MANOMETRY | [phone] | Fax: | | | | | | | [phone] | +--------+--------+ + + + + Encounter Details +--------+ + + + + | Date | Type | Department | Care Team | Description | +--------+ + + + + | 06/27/ | Vehicle Painter | Digestive Health | Lyla Mendoza | Choledocholithiasis | | 2018 | | [place] [address] | MD Rashida [address] [facility] | (Primary Dx) | | | | [address] [facility] | [address] | | | | | for [facility] and | [place], [place] | | | | | [facility], [facility] [address] | [address] | | | | | [facility] [place] | [phone] | | | | | [address] | | | | | | [phone] | | | +--------+ + + + [...]
--- OUTSIDE RECORDS SUMMARY | ~2020-03-03 | XMS | Encounter Summary ---
Demographics + + + | Address | [address] | | | [place] [address] | + + + | Home Phone [...] Team Providers + +------+ + | Care Tailings Worker Name | Role | Phone | [...] Constipated | | 2018 | | at [facility] | Dimas Pelayo MD | | | | | [address] | [address] | | | | | Loop Physician's | [place] Estevez [place], | | | | | [place], [address] [place] [address] | [place] [address] | | | | | [place], [place] | [phone] | | | | | [address] | | | | | | [phone] | | | +--------+ + + + [...]
--- OUTSIDE RECORDS SUMMARY | ~2020-03-03 | XMS | Encounter Summary ---
Demographics + + + | Address | [address] | | | [place] [address] | + + + | Home Phone [...] + + + | Author | [facility] | + + + | Organization | [facility] | + + + | Address | Unknown | + + + | Phone | Unavailable | + + + Support + + +---------+ + | Name | Relationship | Address | Phone | + + +---------+ + | None Per Pt | ECON | Unknown | Unavailable | + + +---------+ + Care Team Providers + +------+ + | Care Senior Project Engineer Name | Role | Phone | [...] | | | | | [facility] | | | | | | Hospital Admitting | | | | | | Desk Located on the | | | | | | 9th floor | | | | | | [place], [place] | | | | | | [address] | | | +--------+ + + + [...]
--- OUTSIDE RECORDS SUMMARY | ~2020-03-03 | XMS | Encounter Summary ---
Demographics + + + | Address | [address] | | | [place] [address] | + + + | Home Phone | | + + + | Preferred Language | Unknown | + + + | Marital Status | | + + + | Holiness Affiliation | NON | + + + [...] Team Providers + +------+ + | Care Wallpaper Inspector Name | Role | Phone | [...] Surgery | 6A Intra Op 3181 | Rene Mendoza | ERCP | | 2018 | | LUIS FERNANDO Figueroa | MD Rashida 3[address] LUIS FERNANDO Sagastume | | | | | [facility] | [facility] | | | | | Hospital Admitting | [place], [place] | | | | | Desk Located on the | [address] | | | | | 9th floor | [phone] | | | | | [place], [place] | | | | | | [address] | | | +--------+---------+ + + + [...] might be differen t from the original. [facility] Discharge Summary Discharging Provider: VIRGIL SIDHU [...] and intubated prior to tra nsfer to [facility]. Workup was notable for RUQ U/S with [...] Your Medications These medications were sent to [id number] [address] [place] [address] [place] [address] Hours: 9AM-7PM MON - FRI / 9AM-6PM [...] Thank you for entrusting your care to [facility] Internal Medicine. If you have any problems or concerns before you are able to follow up with your Primary Care Provider, please call and ask the skiff operator to page the attending physician, Vic Petty MD, wh o was caring for you at discharge. If that physician is not available, ask the skiff operator to page the physician technology solutions architect for the Medical Teaching Service. Call us right away if any of the following occur: Recurrent abdominal pain Shaking chills or night sweats Other Discharge Orders and Instructions You will be called by the [facility] GI service within the next week to schedule a repeat appoint ment for ERCP and possible stent removal. Home Health Referral after Hospitalization Comments: I certify that this patient is under my care and that I, or Nurse Practitioner or Physician [employer] working with me, had a face to face encounter with this patient on 06/30/2017 On behalf of Attending Physician: Vic Petty MD I am ordering and certify that the following services are medically necessary home health [facility] Home Health Physical Therapy Evaluate and Treat I certify that the patient is homebound based on the following clinical findings Post-hospi tono weakness, decreased strength and endurance, and tires easily with minimal exertion Follow Up: Schedule the following appointment(s) when you get home DARYL MARCH MD . Specialty: Internal Medicine Contact information [facility] [address] [place] [address] Discharge Physical Exam: Last 24 hour min/max [...] (HCC) 12) Acute respiratory failure with hypoxia (HCC) Please refer to the resident discharge summary for additional details. Vic Petty MD, PhD Clinical Hospitalist and Medicine Teaching Services [facility] Pager [phone] I have spent 35 minutes with the [...] + documented as of this encounter Progress Collin Mcgill - 06/29/2017 1:40 PM PSTFormatting of this note might be different from bella landin. PHYSICIAN CRIME SCENE SPECIALIST STUDENT PROGRESS NOTE FOR EDUCATIONAL PURPOSES ONLY [...] Q2H PRN ipratropium-albuterol 3 mL Q6H PRN xqbntdtm-qwwghet-qyuueukp-zinc QID PRN oxyCODONE (immediate release) 2.5-5 mg [...] IV/Airways/Catheters: PIV Code status: FULL SHAHEEN Oconnell-S [facility] Physician [employer] Program 06/29/17 Kang Zhang MD - 06/29/2017 [...] List: Active Hospital Problems 1) *Septic shock ([facility]) 2) Choledocholithiasis 3) Acute cholangitis 4) Klebsiella sepsis ([facility]) 5) Aspiration pneumonitis ([facility]) 6) S/P ERCP 7) COPD (chronic obstructive pulmonary disease) ([facility]) 8) Essential hypertension 82 year-old man with HTN, COPD not on supplemental oxygen, who presented to OSH with epigas tric pain and abnormal LFTs, admitted for septic shock due to acute cholangitis and acute hy poxic respiratory failure due to aspiration requiring intubation, transferred to [facility] MICU. Here found to have klebsiella bacteremia [...] PhD Clinical Hospitalist and Medicine Teaching Services [facility] Pager [phone] I have spent 26 minutes with the patient of which more than 50% was spent counseling the pa tient and in coordination of care. Reza Esparza MD - 06/29/2017 8:23 AM PSTFormatting of [...] interval not displayed. Micro: BLOOD CULTURE WORKUP [[id number]] (Abnormal) KP LAB Collected: 06/26/17 0939 Lab [...] List: Active Hospital Problems 1) *Septic shock ([facility]) 2) Choledocholithiasis 3) Acute cholangitis 4) Klebsiella sepsis ([facility]) 5) Aspiration pneumonitis ([facility]) 6) S/P ERCP 7) COPD (chronic obstructive pulmonary disease) ([facility]) 8) Essential hypertension Resolved Hospital Problems 9) Septic shock ([facility]) 10) Non-ST elevation myocardial infarction (NSTEMI), type 2 ([facility]) 11) Acute respiratory failure with hypoxia ([facility]) Assessment: Lilian Hurst is a 82 y.o. [...] Primary Surrogate Decision Maker Sharon Rodriguez Daughter [phone] Dimas Xavier MD Internal Medicine, PGY-3 #[id number] Louis Hernandez MD - 06/28/2017 2:26 PM [...] management as outpatient (pt prefers facility near [place]) --> if develops post ERCP complications or [...] PPI Glycemic control:SSI MobilityGoal:Bed rest Lines/Tubes/Drains/Airways: PIV aCollin powell - 06/28/2017 7:47 AM PST PHYSICIAN CRIME SCENE SPECIALIST STUDENT PROGRESS NOTE FOR EDUCATIONAL PURPOSES ONLY [...] Q2H PRN ipratropium-albuterol 3 mL Q6H PRN khgdpsws-fhnvmft-lrptfuhv-zinc QID PRN oxyCODONE (immediate release) 2.5-5 mg [...] on klebsiella cultures for sensitivity. Spoke with Assistant Education Director at [place]'s @1330, N o sensitivity results yet from [...] ppx: n/a IV/Airways/Catheters: PIV Code status: FULL SHAEHEN O[facility]nell-[facility] Physician [employer] Program 06/28/17 Alisha Rai M D - [...] 86 87 78 HCO3 22 24 23 GRBJQ2CEF 24 25 24 Q3BZGRZL 96.4 97.0 96.8 FIO2 0.80 0.25 0.21 Chemistries: Last 72 Hours (or 3 results): Recent Labs 06/26/17 0930 06/26/17 1539 06/26/177 06/27/17 0043 06/27/17 0814 NA 141 140 [...] in the patient's condition). ALISHA LAGUNAS MD [facility] [address] [place] [phone] Camilo Amaya MD - 11/2017 6:00 AM PST [facility] MEDICAL ICU - PROGRESS NOTE Hospital Day: [...] (12/05 0400) Temp 36.5 C (97.7 F) (06/27/17 0500) | Temp Min: 35.8 C (96.4 F) Max: 36.5 C (9 7.7 F) RR 22 (06/27/17 0500) | Resp Min: 15 Max: 26 SpO2 96 % (06/27/17499) | SpO2 Min: 88 % Max: 100 % O2 Device Endotracheal tube (06/27/17499) | Volume AC (06/27/17301) Ventilator Settings Vt: 6.5 mL/Kg (459.6 mL) RR: 22 bpm Ripley BW: 70.7 kg FiO2 21 fraction of [...] delirium) RASS Scale -1 CPOT 0 (06/27/17 050) Intake/Output Summary (Last 24 hours) at 06/27/17 [...] 87 78 HCO3 -- 22 24 23 LAI8NHO2 -- 108* 348 371 VBGPH 7.27* -- [...] 3.375 g i ntravenous Q8H Stopped (06/27/17 6161) Current Facility-Administered Medications Medication Dose Route Frequency [...] Primary Surrogate Decision Maker Sharon Rodriguez Daughter [phone] This patient was staffed with Dr. Lagunas, attending physician. Camilo Arreguin MD 06/27/2017, 6:01 AM Template created by KENNEDY 2017 A M Rene Cerna MD - 06/26/2017 4:38 PM PSTBrief [...] duct clearance Rene Mendoza MD Gastroenterology Pager [phone] - Virginia Cerna MD - 06/26/2017 4:38 PM PSTFormatting of this note might be different from the origi nal. PRE PROCEDURE NOTE: MR# [id number] Subjective: Lilian Hurst is a 82 y.o. [...] 4 hours. Concern for choledocholithiasis. Transferred t o [facility] this morning. Has history of COPD and [...] present and reviewed status of patient wi th GI attending. Agreed to proceed with ERCP. [...] results for input(s): PH, PCO2, PO2, HCO3, VUBSV3BBQ, B3GNJFXT, Y9OQPWJPE, FIO2 in the l ast 72 hours. [...] in the patient's condition). ALISHA LAGUNAS MD [facility] [address] [place] [phone] documented in this enco unter H&P Notes [...] intubated and placed on pressors, transferred to [facility] MICU directly . In MICU, GI was consulted who performed ERCP with sphincterotomy with several CBD stones an d sludge removal yesterday + stent placement. He was also placed on zosyn for emperic antib iotic coverage. He was found to have gram-positive and klebsiella bacteremia.He was readily extubated and remains on 1-2L of NC. On iokr-wz-ilxj evaluation on general medicine floor, he reports [...] None /hpf Imaging Interpretation: No US in [facility] system Summary Patient is an 82 year [...] management as outpatient (pt prefers facility near [place]) --If febrile, order new bcx --If hypotensive/concern [...] due to aspiration requiring intubation, transferred to [facility] MICU. Here found to have klebsiella bacteremia [...] PhD Clinical Hospitalist and Medicine Teaching Services [facility] Pager [phone] I spent more than 70 minutes ezqw-ce-jcsm with the patient of which greater than 50% was sp ent counseling the patient on acute cholangitis, abdominal pain, klebsiella bacteremia and i n coordination of care. Dianna Dodson MD - 06/26/2017 6:46 AM PSTFormatting of this note might be different from t he original. [facility] MEDICAL ICU - HISTORY & PHYSICAL Author: [...] was then intubated a nd transported to [facility]. On route here, had hypotension with SBP [...] 18 Max: 24 SpO2 97 % (06/26/17 1536) | SpO2 Min: 88 % Max: 100 % O2 Device Endotracheal tube (06/26/17 1200) | Volume AC (06/26/17 0845) Ventilator Settings PSV: PEEP Set: 8 cm H2O RR: 22 bpm FiO2: 30 fraction of O2 Observed Ventilation Vex: Mandatory 580 ml | Spontaneous Ripley BW: 70.7 kg RR: 18 bpm Minute [...] data sin e the admission date ending 06/26/17645 BMI: Weights 86.5 kg (190 lb 11.2 [...] -- 86 87 HCO3 -- 22 24 UAR2ZGR3 -- 108* 348 VBGPH 7.27* -- -- [...] bronch itis. Right lung base atelectasis. EKG/Echocardiogram: 26 at OSH: sinus tach 110, normal intervals, [...] Medications Medication Dose Route Frequency Last Rate [Jul] menthol-zinc oxide (CALAZIME) topical paste 0.2%-16.5% topical [...] MD 06/26/2017, 4:55 PM Template created by KENNEDY 2017 P M PST Associated attestation - Alisha Lagunas MD - 06/26/2017 6:48 PM PSTPulmonary and Critical Care Attending Note I personally examined the patient. I also personally reviewed the laboratory and radiology data. I agree with the housestaff assessment and plan. ALISHA LAGUNAS MD [facility] [address] [place] [phone] documented in this encounter Procedure Notes Reid Hu MD,PhD - 06/26/2017 9:10 AM PSTAssociated Order(s): ART LINE ARTERIAL LINE Performed by: REID HU Authorized by: ALISHA LAGUNAS ART Line Insertion Procedure Note Indications: Beat to beat blood pressure monitoring and Frequent lab draws Procedure location: 7A Providers: Attending name: Attending physically present: No Resident name: Reid Hu Pre-Procedure Consent: written consent not obtained Verbal consent not obtained The procedure was performed in an emergent situation Patient identity confirmed per policy: Yes Team Pause: Immediatly prior to the procedure a pause per protocol was called. A pause veri fies correct patient, procedure, equipment, technical support specialist and site/side marked as required. CLABSI Prevention [...] A pause verifies correct patient, procedure, equipment, technical support specialist and site/side marked as requir ed. CLABSI [...] Ultrasound Guidance. The modified Seldinger technique (a gdfgmyfz-vham-ype-sgrfgz-fxxh-wxzk-zmwoxlb-mld-aqybsmfj ) was used for vessel cannulation. The [...] currently going to Dr. Geovanni Hylton in [place], [place] for primary care. Allergies: Allergies Allergen Reactions [...] acute cholangitis at the MICU. Pharmacy Preferences: [id number] [address] [place], [place] Fax: Source of Medication Information: Patient and [...] Avitia Candidate Class of 2018 Pager # [phone] Associated attestation - Alisa Flores PharmD - 06/28/2017 1:48 PM PSTI have reviewed an d agree with the outpatient pharmacy manager's documentation and have documented any additions or excep tions. Medication doses updated per pharmacy records and patient report. Refuses inhalers, b ut has been using Duonebs at home. Alisa Flores PharmD, [facility] Pager [phone] Cassy Patricio MD - 06/27/2017 8:14 AM [...] removal. Regarding need for cholecystectomy, spoke with Chaitanya rosario surgery who advise outpatient follow up after [...] Cassy Patricio MD Internal Medicine PGY2 Pager #[phone] INTERVAL HISTORY: - ERCP with choledocholithiasis, stones [...] for ICU patient with acute cholangitis. The marine insulator film was normal. The esophagus was successfully [...] note for further details. Paulette Mckenzie MD Fly Raiser Lockstitchvertical lathe operator Department of Gastroenterology [facility] DEPARTMENT: GI - [phone] Place of Service: [facility] CSN: [id number] Suggested Modifiers: GC - Resident Involved Suggested Level of Care: 42265 (<15 minutes) Brian Martino Md - 06/26/2017 7:27 PM PST Cardiology Consult [...] and was then intubated and transported to [facility]. Du ring transfer he had hypotension that [...] CONTINUOUS Dianna Dodson MD 3.24 mL/hr at 06/26/17 1910 0.02 mcg/kg/min at 11/05 1910 [START ON 06/27/2017] omeprazole (PRILOSEC) capsule 40 [...] CL -- 110* 110* -- BICARB -- 24 -- BUN -- -- CR -- 0.90 0.85 -- GLU [...] on this are not known. From the av lable telemetry strips this does not appear [...] beta blockers while bradycardic Brian Martino MD Flag Decorator [facility] Cardiovascular [facility] Pager [phone] Associated attestation - Franko Garcia MD - [...] SVT appears. Franko Garcia M.D. Director, Electrophysiology Project [place] [phone] Cassy Patricio MD - 06/26/2017 9:21 AM [...] Cassy Patricio MD Internal Medicine PGY2 Pager #[phone] HISTORY OF PRESENT ILLNESS Lilian Hurst is [...] and ultimately intubation prior to transfer to [facility]. In the MICU: On arrival, pt afebrile, [...] note for further details. Paulette Mckenzie MD Fly Raiser Lockstitchvertical lathe operator Department of Gastroenterology [facility] DEPARTMENT: - [phone] Place of Service: [address] [place] [address] CSN: [id number] Suggested Modifiers: GC - Resident Involved Suggested Level of Care: 14685 (<15 minutes) documented in this encounter Miscellaneous Notes Plan of Care - Beverly Mathias RN - 06/30/2017 2:27 PM PSTHome meds, follow-up and pos t-surgical care reviewed with patient and family. Patient discharged home with daughter by donal bellamy. Discharge Nurse: Beverly Mathias RN Date: 06/30/2017 Discharge Time: 2:27 PM erna - Ira Decker RN - 06/29/2017 9:50 PM PSTNursing Handoff Patient Daily Goal: "I'm going to shave today" (06/29/17 0808) Patient Specific Preferences: none specified at this time (06/28/17 1630) [facility] IP NURSE HANDOFF: [place] hospital course events: Grant is a 82 y.o. man admitted to the [facility] for Klebsiella oxytoca septic shock likely secondary to acute cholangitis. 2: Tx to 7A MICU, ERCP done, biliary [...] reports that he has abdominal discomfort between 2-7/10 but he states he doesn't classify it as pain just "uncomfortable" this is made tolerable with Oxycodone 5 mg q 4 hour s, If he goes longer than 4 hours he feels his pain becomes much worse (7/10) and is harder to control again - [...] discharge: Likely DC 06/30, possibly with home if weaning unsuccessful tonigh t. andoff - Beverly Mathias RN - 06/29/2017 5:32 PM PSTNursing Handoff Patient Daily Goal: "I'm going to shave today" (06/29/17 0808) Patient Specific Preferences: none specified at this time (06/28/17 1630) [facility] IP NURSE HANDOFF: [facility] hospital course events: Grant is a 82 y.o. man admitted to the [facility] for septic shock likely secondary to acute cholangitis. 06/26: Tx to 7A MICU, ERCP done, pressor needs, SVT --> junctional rhythm, inocente, and pauses (cards consulted) 2: extubated to 2 liters nasal canula. NSR. SAFETY Patient/Family Target: Aki will maintain hemodynamic stability Progress to Target: Improving As evidenced by: - Per MD note, Aki was admitted to [facility] with septic shock and severe hypotension. VSS [...] from t sarath original. Physical Therapy Evaluation [id number] LILIAN HURST Date of : 1935 Start of care: 06/29/2017 Attending Practitioner: Vic Petty MD Primary/Referral Diagnosis/ICD-9: K80.50 Choledocholithiasis R06.00 Dyspnea, unspecified type Insurance: Payor: [facility] MEDICARE / Plan: [facility] MEDICARE HMO / Product Type: [...] shock likely se condary to acute cholangitis. 2: Tx to 7A [...] (hypertension) Normocytic anemia Prediabetes SVT (supraventricular tachycardia) ([facility]) Past Surgical History: Procedure Laterality [...] / Family Goal: To go home Communication/Barriers: [place] Subjective: Pt agreeable to working with PT [...] but no loss of balance Outcome Measure: [facility] BASIC MOBILITY Difficulty turning over in bed [...] A Little - Minimal/Contact Guard Assist/Superv ision [facility] Basic Mobility Total Score 22 Interpretation of [facility] Short Form - Basic Mobility: CMS Modifier [...] at next level of care Consulted with: RN re: recommendations PLAN: Pt education/manager medicare training, HEP, transfer training, gait training, stairs/curb step training, DME/DC planning Frequency: 3x/wk Duration: 1 week The above plan of care and goals were developed and reviewed with the patient. Should this patient discharge from the hospital prior to the next physical therapy treatmen t, this note shall serve as the discharge summary. lan of Care - Kiah Beaulieu, RD - 06/29/2017 11:04 AM PSTProblem: Nutrition [...] a few days ago, currently eating breakfast (kuwaiti muffin, scramble d egg, slice of ham). [...] - Continue on regular diet. Texture/consistency per ASSISTANT PRINTER FLOOR COVERING. - Continue to encourage po intake to [...] will follow up. Following, Sachi Greer M.S. Twisting Department End Finder Pgr#[phone] Kiah Beaulieu, MPH, RD, CNSC, LD Pager: [phone] For details, please see dietitian note from 06/28. andoff - Ira Decker RN - 06/29/2017 2:48 AM PSTNursing Omar timmons Patient Daily Goal: "I need my pain well controlled tonight" (06/28/171999) Patient Specific Preferences: none specified at this time (06/28/17 1630) [facility] IP NURSE HANDOFF: [facility] hospital course events: Grant is a 82 y.o. man admitted to the [facility] for septic shock likely secondary to acute cholangitis. 06/26: Tx to 7A MICU, ERCP done, pressor needs, SVT --> junctional rhythm, inocente, and pauses (cards consulted) 06/27: extubated to 2 liters nasal canula. NSR. SAFETY Patient/Family Target: Aki will maintain hemodynamic stability Progress to Target: Improving As evidenced by: - Per MD note, Aki was admitted to [facility] with septic shock and severe hypotension. VSS [...] procedure - IV antibiotics -Possible consult at [facility] for right eyelid problem. andoff - Nyla Cano RN - 06/28/2017 3:13 PM PSTNursing Handoff Patient Daily Goal: To breath better and be able to sleep tonight (06/27/171955) [facility] IP NURSE HANDOFF: [facility] hospital course events: Grant is a 82 y.o. man admitted to the [facility] for septic shock likely secondary to acute cholangitis. 2: Tx to 7A MICU, ERCP done, pressor needs, SVT --> junctional rhythm, inocente, and pauses (cards consulted) 2: extubated to 2 liters nasal canula. NSR. SAFETY Patient/Family Target: Aki will maintain hemodynamic stability Progress to Target: Improving As evidenced by: - Per MD note, Aki was admitted to [facility] with septic shock and severe hypotension. Since [...] upper medial. Got an order for simethecone, [place] tech told pt they saw a lot [...] antibiotics lan of Care - Kiah Beaulieu, CHARLIE - 06/28/2017 1:12 PM PSTProblem: Nutrition Interventions [...] when appropriate to meet needs - Add [place] Meche's probiotic yogurt when no longer NPO- one 8oz. Container split into 3x per day - Add Vitamin D3 @ 50,000 units/wk for 6-8 weeks. Recheck Vit D 25 hydroxy, if levels are > 25 ng, switch to Vitamin D3 @ 2000 units per day - Continue to monitor ion Ca, replete prn Following, Sachi Greer M.S. Twisting Department End Finder pgr#[phone] Kiah Beaulieu, MPH, RD, CNSC, LD Pager: [phone] Comments: Admitting Dx: Lilian Hurst is a 82 y.o. male with COPD, essential hypertensi on, upper gastrointestinal bleed who was admitted to the MICU for septic shock 2/2 to acute cholangitis now post procedure day [...] pt report Estimated Nutrition Needs (84.1kg, COPD): 0884-0982 kcals (25-30 kcal/kg), 101-126 gm prote in (1.2-1.5 gm/kg) lan of Care - Nelli Le [facility] [place]-ASSISTANT PRINTER FLOOR COVERING - 06/28/2017 10:17 AM PSTFormatting of this note might be different from carey original. Speech Language Pathology - DYSPHAGIA Evaluation [id number] LILIAN HURST Date of : 1935 Referring/Attending [...] PLOF: Patient with history of COPD and VEGETABLE LOADER was concerning for aspiration pneumonitis vs PNA [...] liquids with univ ersal aspiration precautions. Problem: ASSISTANT PRINTER FLOOR COVERING Goals- Adult Goal: Dysphagia Goal Outcome: Goal [...] status, increased temp) DISCHARGE RECOMMENDATIONS: No further ASSISTANT PRINTER FLOOR COVERING needs Plan: No indication for further ASSISTANT PRINTER FLOOR COVERING therapy at this time. ASSISTANT PRINTER FLOOR COVERING team signing off. Please re order as appropriate. Thank you for this consult. Nelli Le MS CCC-ASSISTANT PRINTER FLOOR COVERING Speech Language Pathologist Pgr [phone] andoff - Brittney Bautista RN - 06/27/2017 10:33 PM PSTNursing Handoff Patient Daily Goal: To breath better and be able to sleep tonight (06/27/171955) [facility] IP NURSE HANDOFF: [facility] hospital course events: Grant is a 82 y.o. man admitted to the [facility] for septic shock likely secondary to acute cholangitis. 2: Tx to 7A MICU, ERCP done, pressor needs, SVT --> junctional rhythm, inocente, and pauses (cards consulted) 06/27: extubated to 2 liters nasal canula. NSR. SAFETY Patient/Family Target: Aki will maintain hemodynamic stability Progress to Target: Improving As evidenced by: - Per MD note, Aki was admitted to [facility] with septic shock and severe hypotension. Since [...] and increase PO intake (0 06/27/17 1720) [facility] IP NURSE HANDOFF: [facility] hospital course events: Grant is a 82 y.o. man admitted to the [facility] for septic shock likely secondary to acute cholangitis. 26: Tx to 7A MICU, ERCP done, pressor needs, SVT --> junctional rhythm, inocente, and pauses (cards consulted) 06/27: extubated to 2 liters nasal canula. NSR. SAFETY Patient/Family Target: Aki will maintain hemodynamic stability Progress to Target: Improving As evidenced by: - Per MD note, Aki was admitted to [facility] with septic shock and severe hypotension. Since [...] Goal: to use the bathroom (06/27/17 0900) [facility] IP NURSE HANDOFF: Hartley hospital course events: Grant is a 82 y.o. man admitted to the [facility] for septic shock likely secondary to acute cholangitis. 26: Tx to 7A MICU, ERCP done, pressor [...] ERCP procedure IV antibiotics ransfer Note - Oswaldo Dodson MD - 06/27/2017 1:30 PM [facility] MEDICAL ICU - TRANSFER SUMMARY Hospital Day: [...] of bacteremia. Narrow abx as appropriate. Procedures: /6 - R IJ central line insertion 2/6 - R arterial line insertion Both of the above lines have been removed. DIANNA DODSON MD 06/27/2017, 1:49 PM Template created by BJA 2017 lan of Care - Jamye Rosa RCP - 06/27/2017 8:33 AM PSTProblem: RT Goals & Interventions Goal: Actively weaning from ventilator support Patient extubated to 3 lpm nasal cannula. Strong, productive cough. No evidence of stridor. andoff - Herlinda Mccord RN - 06/27/2017 5:03 AM PSTNursing Handoff [place] IP NURSE HANDOFF: [place] hospital course events: Grant is a 82 y.o. man admitted to the [facility] for septic shock likely secondary to acute [...] $ Ventilator Mode - Adult: Volume AC (06/27/17 0302) Vt ml/kg: Plat: Plat Press: 12 cm H2O (06/27/17301) RRtotal: Total Rate: 22 bpm (06/27/17301) PEEP: PEEP/CPAP: 5 cm H2O (06/27/17301) Total PEEP: TOTAL PEEP: 6 cm H2O (06/27/17301) FIO2: Current FIO2 (%): 21 fraction of O2 (06/27/17301) SpO2: SpO2: 97 % (06/27/17299) ETCO2: ETCO2: 25 mmHg (06/26/17 2300) Goals for the Day: 7am-7pm: 7pm-7am: wean [...] 06/26/2017 PO2 78 06/26/2017 HCO3 23 06/26/2017 Y2NZDRPE 96.8 06/26/2017 FIO2 0.21 06/26/2017 ZUJ4KUD3 371 06/26/2017 LDV8JJJ2 348 06/26/2017 VIQ6RCD0 108 (L) 06/26/2017 P/F ratio: Improving/worsening Today Previous day ECMO or ARDS vents only Driving pressure: Plat Press: 12 cm H2O (06/27/17301) - TOTAL PEEP: 6 cm H2O (06/27/17301) = Driving Pressure (DP): 6 cm H2O (06/27/17301) Plat Press: 12 cm H2O Dynamic Lung Compliance: 25 ml/cm CRS Static: 75.00 (06/27/17301) CXR No results found for: CXR lan of Care - Teodoro Alvarenga RCP - 06/26/2017 9:53 [...] Based on this assessment Adult Bronchodilator Protocol. [facility] Lela Apodaca - 06/26/2017 8:22 AM PSTAMR 639/FF 82 yom, sepsis. Pt on vent, tolerating well. Sedaition is off due to hypotension. Pt on lev ophed, sent pt into SVT. Resolved with fluid. HR 160, 108 SPB, Et CO2 35, Sat 98%. ETA 10 min [facility] Olga Cohen - 06/26/2017 6:42 AM PSTPer [facility] dispatch. [id number] [place] 0730. 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 Impending respiratory failure . Expectation of care: Management of above: Interventions performed: VS: At presentation to ED temp 102. 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 Currently HR and RR increasing. O2 increased to 6L currently. Satting in low 90s, will probably intubate soon as is having increasing distress Pertinent Labs: Labs sent Diagnostics: and ultrasound done Requested Service Line: MICU Connected to: [facility] at capacity: No DECISION: TCRN spoke with Md. Haeth. Amenable to transfer to partner hospital. [facility]ed to place at [facility]. No beds available 2/2 staffing. Returned call to [facility] TC TRANSPORTION: [facility] Abisai Brewer - 06/26/2017 3:45 AM PST3:42 AM 06/26/2017 Dr. Heath, [facility], PT: GrantAki : 1935 MICU, DR. Miranda hanna hale in this encounter Plan of Treatment Not [...] | + +--------+ + + + | QW-KI-LPS-HB,POC RT | Urgent | 06/26/2017 | | [...] + + + | ECG | Short IA interval | | [facility] | | [...] + | [facility] | [address] [facility] | [place], [place] | | | CARDIOLOGY | [address] | [address] | | + + + + + [...] | + + + + + | [facility] | [address] | [place] [address] | | | SARA, YOKASTA | PARK [...] LABORATORY | [address] | [place] [address] | | | SERVICES, CORE | PARK [...] [facility] | [address] | [place] [address] | | | SERVICES, CORE | PARK [...] | + + + + + | [facility] | [address] | [place] [address] | | | SERVICES, CORE | RICHARD [...] Procedure Note | + + | Service Robby, Radiant Res In Interface - 06/28/2017 5:02 [...] [facility] | [address] | [place], [place] | | | YUE POINT OF CARE | [address] | [address] | | | TESTS | | | [...] [facility] | [address] | [place] [address] | | | SERVICES, CORE | PARK [...] | + + + + + | [facility] | [address] | [place] [address] | | | SERVICES, CORE | PARK [...] + + | Performing | Address | City/State/[facility] | Phone Number | | Organization | | | | + + + + + | [facility] | [address] | [place] [address] | | | SERVICES, [facility] | [address] | | | + [...] | + + + + + | [facility] | [address] | [place] [address] | | | YOKASTA RUIZ | RICHARD [...] [facility] | [address] | [place], [place] | | | HILL, POINT OF CARE | [address] | [address] | | | TESTS | | | [...] Note | + + | Service Account, [employer] Res In Interface - 06/28/2017 10:17 AM [...] [facility] | [address] | [place], [place] | | | DILAN TURNER OF CARE | [facility] | [address] | | | TESTS | | | [...] (H) | 70 - 99 mg/dL | [facility] - | | | GLUCOSE, | | [...] [facility] | [address] | [place], [place] | | | DILAN TURNER OF [facility] | [facility] | [address] | | | TESTS | | | [...] | [facility] | [address] [facility] | [place] [address] | | | SERVICES, CORE | PARK [...] | [facility] | [address] | [place] [address] | | | SERVICES, CORE | PARK [...] [facility] | [address] | [place] [address] | | | SERVICES, CORE | [address] | | | + + + + + CULTURE, BLOOD BACTI & YEAST [facility] (06/27/2017 8:34 AM PST) + + + [...] | + + + + + | [facility] | [address] | [place] [address] | | | SERVICES, CORE | [address] | | | + + + + + CULTURE, BLOOD BACTI & YEAST [facility] (06/27/2017 8:16 AM PST) + + + [...] | + + + + + | [facility] | [address] | [place] [address] | | | SERVICES, CORE | PARK [...] (H) | 70 - 99 mg/dL | [facility] - | | | GLUCOSE, | | [...] + + + + | [facility] | [address] | [place], [place] | | | YUE POINT OF CARE | [address] | [address] | | | TESTS | | | [...] | + +---------+ + + + | NON-SQUANA | Clement (A) | None /hpf | [facility] | [...] | + + + + + | [facility] | [address] | [place] [address] | | | SERVICES, YOKASTA | RICHARD [...] [facility] | | | GRAVITY | Specific [place] | | LABORATORY | | | | [...] | [facility] | [address] | [place] [address] | | | SERVICES, CORE | [address] | | | + + + + + ERCP (06/27/2017 6:38 AM PST) + + | Specimen | + + | | + + + + + | Narrative | Performed At | + + + | MRN: | [facility] | | [id number] Date: 06/27/2017Patient Name: Lilian Nair #: | ENDOSCOPY | | [id number] of : 1935SN: [id number] Type: | | | InpatientRoom: SORProcedure: ERCPIndications: | | | For therapy of ascending cholangitis; 82 yo M with | | | sepsis, elevated LFTs and US showing mary dil and 1.3 cm | | | CBDProviders: RENE | | | Thompson MENDOZA MD (Doctor), JORDY OSLANO, | | | RN (Nurse), ESTELA DAMIAN RN (Event Marketing Manager)Referring MD: | | | Requesting Provider: Medicines: [...] The | | | Olympus TJF-Q180V Duodenoscope #[id number] was | | | introduced through the [...] with acute | | | cholangitis. The marine insulator film was normal. The esophagus was | [...] Initiated On: | | | 06/27/2017 6:38 [facility] Letter to: DARYL MARCH MD | | |06/27/2017 6:48:17 AM | | |Number of Addenda: 0 | | |Note Initiated On: 06/27/2017 6:38 AM | | | Letter to: | | | DARYL MARCH MD | | + + + + +---------+ + + | Performing | Address | City/State/[facility] | Phone Number | | Organization | | | | + +---------+ + + | [facility] | | | | + +---------+ + + IP ENDOSCOPY AFTERHOURS (06/27/2017 6:38 AM PST) + + | Specimen | + + | | + + + + + | Narrative | Performed At | + + + | MRN: | [facility] | | [id number] Date: 06/27/2017Patient Name: Lilian Nair #: | ENDOSCOPY | | [id number] of : 1935SN: [id number] Type: | | | InpatientRoom: SORProcedure: ERCPIndications: | | | For therapy of ascending cholangitis; 82 yo M with | | | sepsis, elevated LFTs and US showing mary dil and 1.3 cm | | | CBDProviders: BRINTHA | | | Thompson MENDOZA MD (Doctor), JORDY SOLANO, | | | RN (Nurse), ESTELA DAMIAN RN (Event Marketing Manager)Referring MD: | | | Requesting Provider: Medicines: [...] The | | | Olympus TJF-Q180V Duodenoscope #[id number] was | | | introduced through the [...] with acute | | | cholangitis. The marine insulator film was normal. The esophagus was | [...] remove stent | | | and mack ductRENE MENDOZA, | | | 06/27/2017 6:48:17 AMNumber of Addenda: 0Note Initiated On: 06/27/2017 | | | 6:38 [facility] Letter to: DARYL MARCH MD | | [...] packs/day): | LABORATORY | | 8-9% | SARA, CORE | + + + + + + + + | Performing | Address | City/State/Zipcode | Phone Number | | Organization | | | | + + + + + | [facility] | [address] | [place] [address] | | | SERVICES, CORE | RICHARD [...] | + + + + + | [facility] | [address] | [place] [address] | | | SERVICES, CORE | PARK [...] [facility] | [address] | [place] [address] | | | SERVICES, CORE | PARK [...] | + + + + + | [facility] | [address] | [place] [address] | | | SERVICES, CORE | RICHARD [...] + + + + | QTC-BAEDETT | 492 | ms | [facility] [...] + + | ECG | Borderline prolonged IA | | [facility] | | | [...] + | [facility] | [address] [facility] | [place], [place] | | | CARDIOLOGY | [address] | [address] | | + + + + + [...] LABORATORY | [address] | [place] [address] | | | SERVICES, CORE | PARK [...] + | [facility] | [address] [email or web address] [address] | [place], [place] | | | YUE POINT OF [facility] | [address] | [address] | | | TESTS | | | [...] Note | + + | Service Account, [employer] Res In Interface - 06/27/2017 9:07 AM PST [...] + + + + + | [facility] | [address] | [place], [place] | | | DILAN TURNER OF [place] | [address] | [address] | | | TESTS | | | [...] + + + + | QTC-KAJAL | 473 | ms | [facility] [...] OF | [address] | [place], [place] | | | CARDIOLOGY | [address] | [address] | | + + + + + ART LINE (06/26/2017 5:10 PM PST) + + + | Narrative | Performed At | + + + | eRid Hu MD,PhD 06/26/2017 9:12 AM ARTERIAL LINE | | | Performed by: REID HU Authorized by: ALISHA LAGUNAS | | | ART Line Insertion Procedure Note Indications: Beat to beat blood | | | pressure monitoring and Frequent lab draws Procedure location: | | | Providers: Attending name: Attending [...] correct patient, procedure, | | | equipment, technical support specialist and site/side marked as required. | | [...] focal erosion Negative | | PATHOLOGY | ,PhD on | | | for malignancy Case | | | 06/28/2017 at | | | seen by:Sudhakar Solis, | | | 12:08 PM | | | | | | | | | | | | | | | Pathology ResidentLancaster | | | | | | Louis [...] number | | | | | | [id number]. Bile duct, | | | | | [...] | + + + + + | [facility] | [address] [facility] | [place] [address] | | | PATHOLOGY | [address] [...] correct patient, | | | procedure, equipment, technical support specialist and site/side marked as required. | | [...] modified Seldinger technique (a | | | ihqzdjgh-hxzx-nel-ymgzky-otlv-fain-lxnuagi-rnh-isanwkpk) was used for | | | vessel [...] present: Yes Fellow name: Abiodun Rascon Monitoring | | | The patients vital [...] | + + + + + | [facility] | [address] [facility] | [place] [address] | | | SERVICES, CORE | RICHARD [...] [facility] | [address] | [place] [address] | | | SERVICES, CORE | PARK [...] | + + + + + | [facility] | [address] | [place] [address] | | | SERVICES, CORE | PARK [...] | + + + + + | [facility] | [address] [facility] | [place] [address] | | | SERVICES, CORE | RICHARD [...] | + + + + + | [facility] | [address] [facility] | [place] [address] | | | SERVICES, YOKASTA | RICHARD [...] + + + + | LILIANA-KAJAL | 486 | ms | [facility] [...] OF | [address] | [place], [place] | | | CARDIOLOGY | [address] | [address] | | + + + + + [...] LABORATORY | [address] | [place] [address] | | | SERVICES, CORE | PARK [...] | + + + + + | [facility] | [address] | [place] [address] | | | YOKASTA RUIZ | RICHARD [...] | [facility] | [address] | [place] [address] | | | YOKASTA RUIZ | RICHARD [...] Note | + + | Service Account, [employer] Res In Interface - 06/26/2017 12:57 PM [...] | + + + + + | [facility] | [address] | [place] [address] | | | SERVICES, CORE | RICHARD [...] Note | + ----+ | Service Account, [employer] Res In Interface - 06/26/2017 12:57 PM [...] Account, Shana Le In Interface - 06/26/2017 12:55 PM PST [...] Note | + + | Service Account, [employer] Res In Interface - 06/26/2017 10:12 AM PST STUDY: CHEST 1 | | VIEW 06/26/17 09:05:50COMPARISON: None.HISTORY: Line placement. COPD. Anemia. | | Respiratory difficulty.FINDINGS:Support equipment: Intubated patient with ET tube | | terminating 7 cm above ary. NG tube barely extends beyond the GE [...] | + + + + + | [facility] | [address] | [place] [address] | | | SERVICES, | [address] [...] LABORATORY | [address] | [place] [address] | | | SERVICES, | [address] [...] | + + + + + | [facility] | [address] | [place] [address] | | | SERVICES, | [address] [...] | VENTRICULAR | 76 | bpm | [facility] | | | RATE | | [...] + + + + | QTC-BAZETT | 528 | ms | [facility] [...] + + + | ECG | Prolonged IA interval | | [facility] | | [...] OF | [address] | [place], [place] | | | CARDIOLOGY | [address] | [address] | | + + + + + [...] - | | | | | | [place] | | + + + + + [...] + | [facility] - | [address] | [place] [address] | | | [place] | | | [...] | + + + + + | [facility] - | [address] | [place] [address] | | | [place] | | | | + + + [...] | + + + + + | [facility] | [address] | [place] [address] | | | SERVICES, CORE | RICHARD [...] + + | [facility] | [address] [facility] | [place] [address] | | | SERVICES, CORE | PARK [...] | + + + + + | [facility] | [address] [facility] | [place] [address] | | | SERVICES, CORE | RICHARD [...] LABORATORY | [address] | [place] [address] | | | SERVICES, CORE | PARK [...] LABORATORY | [address] | [place] [address] | | | SERVICES, CORE | PARK [...] | + + + + + | [facility] | [address] | [place] [address] | | | SERVICES, CORE | [address] | | | + + + + + MAGNESIUM, PLASMA (06/26/2017 9:30 AM PST) + +-------+ + + + | Component | Value | Ref Range | Performed | Pathologist | | | | | At | Signature | + +-------+ + + + | MAGNESIUM,P | 1.8 | 1.6 - 2.6 mg/dL | [facility] | | | LASMA | | | [...] LABORATORY | [address] | [place] [address] | | | SERVICES, CORE | RICHARD [...] LABORATORY | [address] | [place] [address] | | | SERVICES, CORE | PARK [...] | + + + + + | [facility] | [address] | [place] [address] | | | SERVICES, CORE | [address] | | | + + + + + UW-OQ-COY-HB,POC RT (06/26/2017 8:55 AM PST) + + [...] [facility] | [address] | [place], [place] | | | YUE POINT OF CARE | [address] | [address] | | | TESTS | | | [...] | | 30 doses, First dose on Fri | | | | | | | 06/29/17 at 1600, Last dose on Mon | | | | | | [...] 1026, Until 06/30/17 | | | at 2032, 2nd line for no BM in | [...] 8:06 | | | | | on [facility] 06/28/17 at 0900, Until | | AM [...] 2 HOURS | | | NEEDED, Starting Ymesha 06/28/17 at | | | 1352, Until 06/30/17 at 2032, | | | for severe break through pain | | + +---+ | | | + +---+ + +-------+ +------+---+---+ | ipratropium-albuterol (KIKEO-NEB) | Given | 06/29/19 | 3 mL | | | | nebulizer solution 3 mL 3 mL, | | 18 10:21 | | | | | inhalation, EVERY 6 HOURS | | PM PST | | | | | NEEDED, Starting 06/27/17 at | | | | | | | 1415, Until 06/30/17 at 2032, | | | | | | | [...] | | | 0838, Until 06/30/17 at 2033, | | | skin irritation, redness, | [...] | | | | | NEEDED, Starting Myesha 06/28/17 at | | | | [...] | | WITH MEALS, First dose on Sun | | PM [...]
--- OUTSIDE RECORDS SUMMARY | ~2020-03-03 | XMS | Encounter Summary ---
Demographics + + + | Address | [address] | | | [place] [address] | + + + | Home Phone [...] + + + | Author | [facility] | + + + | Organization | [facility] | + + + [...] Providers + +------+ + | Care Director Park Name | Role | Phone | + [...] | | | | [facility] | [facility] | | | | | [facility] Admitting | [place], [place] | | | | | Desk Located on the | [address] | | | | | 9th floor | [phone] | | | | | [place], [place] | | | | | | [address] | | | +--------+ + + + [...] + + | Urethr | 06/26/17; 09; [facility]; | 06/26/17 09 by | 06/27/17 1100 by | | al | Veena-nita Arriaga; 06/27/17; 1100 | Leonor Peck RN | Lani Chicas RN | | Cathet | | | | | er | | | | +--------+ + + + | [facility] | 06/26/17; 0900; Dr. Garcia; [facility]; | 06/26/17 0900 by | 06/27/17 [...] encounter OR Notes Anesthesia Postprocedure Evaluation - Jamil Amin, WOODY - 06/26/2017 5:06 PM PSTForma tting of this note might be different from the original. William Burns [id number] Allergies Allergen Reactions Aromatic Dyspnea Budesonide-Formoterol Dyspnea "I can't breathe when I use it." Fluticasone-Salmeterol Dyspnea "I can't breathe when I use it." Eucalyptus Dyspnea Fluticasone Dyspnea Hydrochlorothiazide Rash Past Surgical History Procedure Laterality Date Treatment of fracture of lower leg 2003 Right knee surgery knee cap surgery Ankle surgery left ankle crushed in accident Back surgery 1980 Temp: 36.3 C (97.3 F) Pulse: 69 Resp: 22 Set VT: 450 ml Current FIO2 (%): 30 fraction of O2 PEEP/CPAP: 8 cm H2O BP: 101/67 SpO2: 99 % Evaluation Patient personally seen and evaluated for recovery from anesthesia care, ROS including Card s, Resp, Neuro, and GI w/o evidence of adverse effects, VS (BP, HR, RR, SpO2, and Temp) are stable no PONV Pain controlled No Altered mental status Complications Other: Pt was intubated in ICU prior to procedure so pt was left intubated post procedure. nesthesia Preproc edure Evaluation - Bob Noble MD - 06/26/2017 3:22 PM PSTFormatting of this note kenisha ht be different from the original. William Burns [id number] Allergies Allergen Reactions Aromatic Dyspnea Budesonide-Formoterol Dyspnea "I can't breathe when I use it." Fluticasone-Salmeterol Dyspnea "I can't breathe when I use it." Eucalyptus Dyspnea Fluticasone Dyspnea Hydrochlorothiazide Rash NPO:NPO Status: npo since midnight Last Vitals: Temp: 35.9 C (96.6 F) Pulse: 66 Resp: 23 Set VT: 450 ml Current FIO2 (%): 30 fraction of O2 PEEP/CPAP: 8 cm H2O BP: (!) 73/62 SpO2: 98 % O2 Delivery Device: Endotracheal tube Preg Status/LMP: Patient Active Problem List Diagnosis Choledocholithiasis Past Surgical History Procedure Laterality Date Treatment of fracture of lower leg 2003 Right knee surgery knee cap surgery Ankle surgery left ankle crushed in accident Back surgery 1980 Current Medication List Not on File Lab Results Component Value Date RATE 76 06/26/2017 ATRIALRATE 77 06/26/2017 MS 223 06/26/2017 QRS 145 06/26/2017 QT 469 06/26/2017 PAXIS 13 06/26/2017 RAXIS 78 06/26/2017 TAXIS 42 06/26/2017 Preoperative Adult Anesthesia Plan Last edited 06/26/17 1522 by Bob Noble MD ROS: HPI: 82 yo M admitted with septic shock and acute respiratory failure, most likely due to cholangitis. To go to the OR for ERCP. Already intubated, CVC and arterial line in situ. Prior Anesthetic Problems: No Pulmonary: shortness of breath COPD Cardiovascular: Admitted in SVT, since controlled with esmolol infusion. Since weaned off of norepi infusion as well. Functional Capacity: Low hypertension well controlled no pacemaker/ICD GI/Hepatic: Presumptive diagnosis of cholangitis. OTHER GI gallstones Renal: electrolyte abnormalities hypokalemia Heme/Onc: bleeding disorder thrombocytopenia other heme anemia Physical Exam General: Appearance: Age appropriate and No distress LOC: Stuporous Arousability: Arouses to verbal stimuli HEENT: Normocephalic/Atraumatic Airway: Mallampati: Unable to assess Mouth Opening: Unable to assess Existing Airway: endotracheal tube in place C-Spine: Unable to assess Neck Anatomy: Unable to assess Pulmonary: Respiratory comments: Riding vent on vol a/c, no sedation, prolonged expiratory phase Cardiovascular: Rhythm: Regular Rate: Normal Abdomen: General: Distended and Tenderness Neuro/Psych: Decreased level of consciousness, briefly arouses to voice and tactile stim. Briefly follows commands--shows thumb. 1522 Anesthesia Plan Comments ASA ASA 4 emergent NPO Status NPO Status: NPO by protocol Monitors/Lines to be used Standard, CVP and Art line A-line and CVP in situ Anesthetic Consideration Post-op ICU Induction Anesthetic Technique General; Obstetric Anesthesia Post-Op Pain Plan IV analgesics; Blood Products T and S; Informed Consent Patient too obtunded to participate in consent discussion. Reached his daughter Sharon mcdonald by phone at [phone], discussed plan to bring patient to OR and induce sedation and pain control, continue to support respiratory and hemodynamic functions and bring the patie nt back to the ICU for further care--vent weaning, etc. PARQ discussed with: healthcare noemi r of privacy attorney, Procedures, Alternatives, Risks, and Questions discussed, Risk/benefit of an esthesia plan and blood product discussed and Not able to obtain consent from patient at thi s time Dental Risk not discussed with Patient ; ; Date Consent Series Given: 06/26/2017 3:23 PM Code status in OR Patients Code Status in OR: FULL 06/26 3:22 PM documented in this e ncounter Miscellaneous Notes PMC/ANE PreOp Note - Bob Noble MD - 06/26/2017 3:15 PM PSTROS: HPI: 82 yo M admitted with septic shock and acute respiratory failure, most likely due to cholan gitis. To go to the OR for ERCP. Already intubated, CVC and arterial line in situ. Prior A nesthetic Problems: No Pulmonary: shortness of breath COPD Cardiovascular: Admitted in SVT, since controlled with esmolol infusion. Since weaned off of norepi infusio n as well. Functional Capacity: Low hypertension well controlled no pacemaker/ICD GI/Hepatic: Presumptive diagnosis of cholangitis. OTHER GI gallstones Renal: electrolyte abnormalities hypokalemia Heme/Onc: bleeding disorder thrombocytopenia other heme anemia Physical Exam General: Appearance: Age appropriate and No distress LOC: Stuporous Arousability: Arouses to verbal stimuli HEENT: Normocephalic/Atraumatic Airway: Mallampati: Unable to assess Mouth Opening: Unable to assess Existing Airway: endotracheal tube in place C-Spine: Unable to assess Neck Anatomy: Unable to assess Pulmonary: Respiratory comments: Riding vent on vol a/c, no sedation, prolonged expiratory phase Cardiovascular: Rhythm: Regular Rate: Normal Abdomen: General: Distended and Tenderness Neuro/Psych: Decreased level of consciousness, briefly arouses to voice and tactile stim. Briefly follow s commands--shows thumb. documented in this e ncounter Plan of Treatment Not on filedocumented as [...]
--- OUTSIDE RECORDS SUMMARY | ~2020-03-03 | XMS | Encounter Summary ---
Demographics + + + | Address | [address] | | | [place] [address] | + + + | Home Phone | | + + + | Preferred Language | Unknown | + + + | Marital Status | | + + + | Temple Affiliation | NON | + + + [...] Team Providers + +------+ + | Care Treating Plant Supervisor Name | Role | Phone | [...] | | | | | [place] [address] [place], | [place], [place] | | | | | [place] [address] | [address] | | | | | [phone] | [phone] | | | | | | | [...] PT other exercises he can practice, given eke-[id number]-vrytzio status # Insomnia, sleep-onset - Sleep hygiene: [...] foll owing additions/clarifications/exceptions: none Crystal Evans MD [facility] Division of Internal Medicine and Geriatrics documented in this encounter Plan of Treatment Not on filedocumented as of this encounter Visit Diagnoses Not on filedocumented in this encounter
--- OUTSIDE RECORDS SUMMARY | ~2020-03-03 | XMS | Encounter Summary ---
Demographics + + + | Address | [address] | | | [place] [address] | + + + | Home Phone | | + + + | Preferred Language | Unknown | + + + | Marital Status | | + + + | Mandaeism Affiliation | Unknown | + + + | Race | White | + + + | Ethnic Group | Not or | + + + Author + + + | Author | [facility] | | | and [place] | + + + | Organization | [facility] | | [...] Team Providers + +------+ + | Care Agriculture Engineer Name | Role | Phone | + +------+ + PCP | Unavailable | + +------+ + Encounter Details +--------+ + + + + | Date | Type | Department | Care Team | Description | +--------+ + + + + | 02/28/ | Hospital | [facility] | Waylon Licona, | [facility]TER[facility] | | 2002 - | Encounter | [facility] [address] | [address] | [facility] ([facility]) | | | | [address] | [place] [address] | | | 03/05/ | | [place], [place] | [phone] | | | 2002 | | [address] | | | | | | [phone] | | | +--------+ + + + [...]
--- OUTSIDE RECORDS SUMMARY | ~2020-03-03 | XMS | Encounter Summary ---
Demographics + + + | Address | [address] | | | [place] [address] | + + + | Home Phone | | + + + | Preferred Language | Unknown | + + + | Marital Status | | + + + | Yarsani Affiliation | NON | + + + [...] Team Providers + +------+ + | Care Webbing Supervisor Name | Role | Phone | [...] | | 2018 | | Center at [facility] [address] | MD Rashida [address] [facility] | Received (07/16/2017- | | | | [facility] | [facility] | Current ED | | | | for Health and | [place], [place] | Admission Notes, | | | | [facility], [facility] [address] | [address] | Labs, Imaging | | | | [facility] [place] | [phone] | Reports and Surgery | | | | [address] | | Report with | | | | [phone] | | Pathology- St. | | | [...]
--- OUTSIDE RECORDS SUMMARY | ~2020-03-03 | XMS | Encounter Summary ---
Demographics + + + | Address | [address] | | | [place] [address] | + + + | Home Phone | | + + + | Preferred Language | Unknown | + + + | Marital Status | | + + + | Episcopal Affiliation | Unknown | + + + | Race | White | + + + | Ethnic Group | Not or | + + + Author + + + | Author | [facility] | | | and [place] | + + + | Organization | [facility] | | | [...] Team Providers + +------+ + | Care Financial Assistance Specialist Name | Role | Phone | [...] [place] | | | | | | [address] | | | | | | [phone] | | | +--------+ + + + [...]
--- OUTSIDE RECORDS SUMMARY | ~2020-03-03 | XMS | Encounter Summary ---
Demographics + + + | Address | [address] | | | [place] [address] | + + + | Home Phone [...] Team Providers + +------+ + | [employer] Name | Role | Phone | + [...] [employer] | | | | | [facility] | [facility] | | | | | Hospital Admitting | [place], [place] | | | | | Desk Located on the | [address] | | | | | 9th floor | [phone] | | | | | [place], [place] | | | | | | [address] | | | +--------+---------+ + + + [...] might be differen t from the original. [facility] Discharge Summary Discharging Provider: VIRGIL SIDHU MD [...] and intubated prior to tra nsfer to [facility]. Workup was notable for [...] Your Medications These medications were sent to [id number] [place] [address] [place] [address] Hours: 9AM-7PM MON - FRI / 9AM-6PM [...] Thank you for entrusting your care to [facility] Internal Medicine. If you have any problems or concerns before you are able to follow up with your Primary Care Provider, please call and ask the hot dimpling machine operator to page the attending physician, Vic Petty MD, wh o was caring for you at discharge. If that physician is not available, ask the hot dimpling machine operator to page the physician residential solar sales consultant for the Medical Teaching Service. Call us right away if any of the following occur: Recurrent abdominal pain Shaking chills or night sweats Other Discharge Orders and Instructions You will be called by the [facility] GI service within the next week to schedule a repeat appoint ment for ERCP and possible stent removal. Home Health Referral after Hospitalization Comments: I certify that this patient is under my care and that I, or Nurse Practitioner or Physician Building Custodian working with me, had a face to face encounter with this patient on 06/30/2017 On behalf of Attending Physician: Vic Petty MD I am ordering and certify that the following services are medically necessary home health [facility] Physical Therapy Evaluate and Treat I certify that the patient is homebound based on the following clinical findings Post-hospi tono weakness, decreased strength and endurance, and tires easily with minimal exertion Follow Up: Schedule the following appointment(s) when you get home DARYL MARCH MD . Specialty: Internal Medicine Contact information [facility] [address] [place] [address] Discharge Physical Exam: Last 24 hour min/max [...] PhD Clinical Hospitalist and Medicine Teaching Services [facility] Pager [phone] I have spent 35 minutes with the [...] might be different from bella landin. PHYSICIAN MANAGER R D STUDENT PROGRESS NOTE FOR EDUCATIONAL PURPOSES ONLY [...] Q2H PRN ipratropium-albuterol 3 mL Q6H PRN ztdaxlqx-hessaqm-mgzczkbx-zinc QID PRN oxyCODONE (immediate release) 2.5-5 mg [...] IV/Airways/Catheters: PIV Code status: FULL SHAHEEN Oconnell-S [facility] Physician Building Custodian Program 06/29/17 Kang Zhang MD - 06/29/2017 [...] List: Active Hospital Problems 1) *Septic shock ([facility]) 2) Choledocholithiasis 3) Acute cholangitis 4) Klebsiella sepsis ([facility]) 5) Aspiration pneumonitis ([facility]) 6) S/P ERCP 7) COPD (chronic obstructive pulmonary disease) ([facility]) 8) Essential hypertension 82 year-old man with HTN, COPD not on supplemental oxygen, who presented to OSH with epigas tric pain and abnormal LFTs, admitted for septic shock due to acute cholangitis and acute hy poxic respiratory failure due to aspiration requiring intubation, transferred to [facility] MICU. Here found to [...] PhD Clinical Hospitalist and Medicine Teaching Services [facility] Pager [phone] I have spent 26 minutes with the [...] interval not displayed. Micro: BLOOD CULTURE WORKUP [[id number]] (Abnormal) KP LAB Collected: 06/26/17 0939 Lab [...] List: Active Hospital Problems 1) *Septic shock ([facility]) 2) Choledocholithiasis 3) Acute cholangitis 4) Klebsiella sepsis ([facility]) 5) Aspiration pneumonitis ([facility]) 6) S/P ERCP 7) COPD (chronic obstructive pulmonary disease) ([facility]) 8) Essential hypertension Resolved Hospital Problems 9) Septic shock ([facility]) 10) Non-ST elevation myocardial infarction (NSTEMI), type 2 ([facility]) 11) Acute respiratory failure with hypoxia ([facility]) Assessment: Lilian Hurst is a 82 y.o. [...] Primary Surrogate Decision Maker Sharon Rodriguez Daughter [phone] Dimas Xavier MD Internal Medicine, PGY-3 #[id number] Louis Hernandez MD - 06/28/2017 2:26 PM [...] management as outpatient (pt prefers facility near [place]) --> if develops post ERCP complications or [...] powell - 06/28/2017 7:47 AM PST PHYSICIAN MANAGER R D STUDENT PROGRESS NOTE FOR EDUCATIONAL PURPOSES ONLY [...] Q2H PRN ipratropium-albuterol 3 mL Q6H PRN hnddgxry-gacjkdd-pzuclhgz-zinc QID PRN oxyCODONE (immediate release) 2.5-5 mg [...] on klebsiella cultures for sensitivity. Spoke with Steward/Stewardess Chief Cargo Vessel at [place] @1330, N o sensitivity results yet from [...] ppx: n/a IV/Airways/Catheters: PIV Code status: FULL SHAHEEN Oconnell-S [facility] Physician Building Custodian Program 06/28/17 Alisha Rai M D - [...] 86 87 78 HCO3 22 24 23 BNALB8VCR 24 25 24 Q7HVIURG 96.4 97.0 96.8 FIO2 0.80 0.25 0.21 [...] in the patient's condition). ALISHA LAGUNAS MD [facility] [address] [place] [phone] Camilo Amaya MD - 11/2017 6:00 AM PST [facility] MEDICAL ICU - PROGRESS [...] 6.5 mL/Kg (459.6 mL) RR: 22 bpm Tuttle BW: 70.7 kg FiO2 21 fraction of [...] 87 78 HCO3 -- 22 24 23 GCH4MWG4 -- 108* 348 371 VBGPH 7.27* -- [...] 3.375 g i ntravenous Q8H Stopped (06/27/17 6821) Current Facility-Administered Medications Medication Dose Route Frequency [...] Primary Surrogate Decision Maker Sharon Rodriguez Daughter [phone] This patient was staffed with Dr. Lagunas, [...] duct clearance Rene Mendoza MD Gastroenterology Pager [phone] - Virginia Cerna MD - 06/26/2017 4:38 PM PSTFormatting of this note might be different from the origi nal. PRE PROCEDURE NOTE: MR# [id number] Subjective: Lilian Hurst is a 82 y.o. [...] hours. Concern for choledocholithiasis. Transferred t o [facility] this morning. Has history of COPD and [...] results for input(s): PH, PCO2, PO2, HCO3, JOTDP8BEO, D7QUGVIS, J6YTLEZSF, FIO2 in the l ast 72 hours. [...] in the patient's condition). ALISHA LAGUNAS MD [facility] [address] [place] [phone] documented in this enco unter H&P Notes [...] intubated and placed on pressors, transferred to [facility] MICU directly . In MICU, GI was consulted who performed ERCP with sphincterotomy with several CBD stones an d sludge removal yesterday + stent placement. He was also placed on zosyn for emperic antib iotic coverage. He was found to have gram-positive and klebsiella bacteremia.He was readily extubated and remains on 1-2L of NC. On yjjj-gu-wqiu evaluation on general medicine floor, he reports [...] None /hpf Imaging Interpretation: No US in [facility] system Summary Patient is an 82 [...] management as outpatient (pt prefers facility near [place]) --If febrile, order new bcx --If hypotensive/concern [...] due to aspiration requiring intubation, transferred to [facility] MICU. Here found to [...] PhD Clinical Hospitalist and Medicine Teaching Services [facility] Pager [phone] I spent more than 70 minutes gsph-hn-cjmz with the patient of which greater than 50% was sp ent counseling the patient on acute cholangitis, abdominal pain, klebsiella bacteremia and i n coordination of care. Dianna Dodson MD - 06/26/2017 6:46 AM PSTFormatting of this note might be different from t he original. [facility] MEDICAL ICU - HISTORY & PHYSICAL [...] was then intubated a nd transported to [facility]. On route here, had hypotension with [...] Ventilation Vex: Mandatory 580 ml | Spontaneous Tuttle BW: 70.7 kg RR: 18 bpm Minute [...] -- 86 87 HCO3 -- 22 24 TJR4OXB3 -- 108* 348 VBGPH 7.27* -- -- [...] housestaff assessment and plan. ALISHA LAGUNAS MD [facility] [address] [place] [phone] documented in this encounter Procedure Notes Reid [...] pause veri fies correct patient, procedure, equipment, other sales support worker and site/side marked as required. CLABSI Prevention [...] A pause verifies correct patient, procedure, equipment, other sales support worker and site/side marked as requir ed. CLABSI [...] Ultrasound Guidance. The modified Seldinger technique (a seapmhqs-crjj-ahz-cwxbrb-cqzx-jfzp-rnveajc-dro-fhpbmrll ) was used for vessel cannulation. The [...] currently going to Dr. Geovanni Hylton in [place], [place] for primary care. Allergies: Allergies Allergen [...] acute cholangitis at the MICU. Pharmacy Preferences: [id number] [place], [place] Fax: Source of Medication Information: [...] Avitia Candidate Class of 2018 Pager # [phone] Associated attestation - Alisa Flores PharmD - 06/28/2017 1:48 PM PSTI have reviewed an d agree with the pharmacy ancillary's documentation and have documented any additions or excep tions. Medication doses updated per pharmacy records and patient report. Refuses inhalers, b ut has been using Duonebs at home. Alisa Flores PharmD, [facility] Pager [phone] Cassy Particio MD - 06/27/2017 8:14 AM PST Gastroenterology [...] Cassy Patricio MD Internal Medicine PGY2 Pager #[phone] INTERVAL HISTORY: - ERCP with choledocholithiasis, stones [...] for ICU patient with acute cholangitis. The edge finisher film was normal. The esophagus was successfully [...] note for further details. Paulette Mckenzie MD Technology Resource Teacherdiesel maintenance electrician Department of Gastroenterology [facility] DEPARTMENT: GI - [phone] Place of Service: [facility] CSN: [id number] Suggested Modifiers: GC - Resident Involved Suggested Level of Care: 74240 (<15 minutes) Brian Martino Md - 06/26/2017 [...] and was then intubated and transported to [facility]. Du ring transfer he had hypotension [...] beta blockers while bradycardic Brian Martino MD Calender Let Off Operator [facility] Cardiovascular [facility] Pager [phone] Associated attestation - Franko Garcia MD - [...] SVT appears. Franko Garcia M.D. Director, Electrophysiology [place] [phone] Cassy Patricio MD - 06/26/2017 9:21 AM [...] Cassy Patricio MD Internal Medicine PGY2 Pager #[phone] HISTORY OF PRESENT ILLNESS Lilian Hurst is [...] and ultimately intubation prior to transfer to [facility]. In the MICU: On arrival, pt [...] bile duct and intrapancreatic segment. Considerations laura octavoi include obstructing distal common duct sludge ball [...] note for further details. Paulette Mckenzie MD Technology Resource Teacherdiesel maintenance electrician Department of Gastroenterology [facility] DEPARTMENT: - [phone] Place of Service: [address] [place] [address] CSN: [id number] Suggested Modifiers: GC - Resident Involved Suggested Level of Care: 48708 (<15 minutes) documented in this encounter Miscellaneous [...] none specified at this time (06/28/17 1630) [facility] IP NURSE HANDOFF: [facility] hospital course events: Grant is a 82 y.o. man admitted to the [facility] for Klebsiella oxytoca septic shock likely [...] none specified at this time (06/28/17 1630) [facility] IP NURSE HANDOFF: [facility] hospital course events: Grant is a 82 y.o. man admitted to the [facility] for septic shock likely secondary to acute cholangitis. 06/26: Tx to 7A MICU, ERCP done, pressor needs, SVT --> junctional rhythm, inocente, and pauses (cards consulted) 2: extubated to 2 liters nasal canula. NSR. SAFETY Patient/Family Target: Aki will maintain hemodynamic stability Progress to Target: Improving As evidenced by: - Per MD note, Aki was admitted to [facility] with septic shock and severe hypotension. [...] from t sarath original. Physical Therapy Evaluation [id number] LILIAN HURST Date of : 1935 Start of care: 06/29/2017 Attending Practitioner: Vic Petty MD Primary/Referral Diagnosis/ICD-9: K80.50 Choledocholithiasis R06.00 Dyspnea, unspecified type Insurance: Payor: [facility] MEDICARE / Plan: [facility] MEDICARE HMO / Product Type: [...] Normocytic anemia Prediabetes SVT (supraventricular tachycardia) ([facility]) Past Surgical History: Procedure Laterality Date ANKLE SURGERY BACK SURGERY 1981 RIGHT KNEE SURGERY TREATMENT OF FRACTURE OF LOWER LEG Living Environment: Patient lives alone in a one story house with 0 steps to enter. Bathroom Set-up: walk in shower; shower chair, no grab bars Prior Level of Function: Mobility: Independent Equipment at home: None Patient / Family Goal: To go home Communication/Barriers: Salvadorean Subjective: Pt agreeable to working with PT [...] but no loss of balance Outcome Measure: [facility] BASIC MOBILITY Difficulty turning over in bed [...] A Little - Minimal/Contact Guard Assist/Superv ision [facility] Basic Mobility Total Score 22 Interpretation of [facility] Short Form - Basic Mobility: CMS Modifier [...] Consulted with: RN re: recommendations PLAN: Pt education/resident care spec training, HEP, transfer training, gait training, stairs/curb [...] a few days ago, currently eating breakfast (cook islander muffin, scramble d egg, slice of ham). [...] - Continue on regular diet. Texture/consistency per AUTOMATIC OPERATOR. - Continue to encourage po intake to [...] will follow up. Following, Sachi Greer M.S. Liquified Natural Gas Specialist Pgr#[phone] Kiah Beaulieu, MPH, RD, CNSC, LD Pager: [phone] For details, please see dietitian note from 06/28. andoff - Ira Decker RN - 06/29/2017 2:48 AM PSTNursing Omar timmons Patient Daily Goal: "I need my pain well controlled tonight" (06/28/171999) Patient Specific Preferences: none specified at this time (06/28/17 1630) [facility] IP NURSE HANDOFF: [facility] hospital course events: Grant is a 82 y.o. man admitted to the [facility] for septic shock likely secondary to acute cholangitis. 06/26: Tx to 7A MICU, ERCP done, pressor needs, SVT --> junctional rhythm, inocente, and pauses (cards consulted) 06/27: extubated to 2 liters nasal canula. NSR. SAFETY Patient/Family Target: Aik will maintain hemodynamic stability Progress to Target: Improving As evidenced by: - Per MD note, Aki was admitted to [facility] with septic shock and severe hypotension. [...] procedure - IV antibiotics -Possible consult at [facility] for right eyelid problem. andoff - Nyla Cano RN - 06/28/2017 3:13 PM PSTNursing Handoff Patient Daily Goal: To breath better and be able to sleep tonight (06/27/171955) [facility] IP NURSE HANDOFF: [facility] hospital course events: Grant is a 82 y.o. man admitted to the [facility] for septic shock likely secondary to acute cholangitis. 2: Tx to 7A MICU, ERCP done, pressor needs, SVT --> junctional rhythm, inocente, and pauses (cards consulted) 2: extubated to 2 liters nasal canula. NSR. SAFETY Patient/Family Target: Aki will maintain hemodynamic stability Progress to Target: Improving As evidenced by: - Per MD note, Aki was admitted to [facility] with septic shock and severe hypotension. [...] upper medial. Got an order for simethecone, [employer] tech told pt they saw a lot [...] when appropriate to meet needs - Add [place] Meche's probiotic yogurt when no longer NPO- one 8oz. Container split into 3x per day - Add Vitamin D3 @ 50,000 units/wk for 6-8 weeks. Recheck Vit D 25 hydroxy, if levels are > 25 ng, switch to Vitamin D3 @ 2000 units per day - Continue to monitor ion Ca, replete prn Following, Sachi Greer M.S. Liquified Natural Gas Specialist pgr#[phone] Kiah Beaulieu, MPH, RD, CNSC, LD Pager: [phone] Comments: Admitting Dx: iLlian Hurst is a 82 y.o. male with [...] pt report Estimated Nutrition Needs (84.1kg, COPD): 1916-3218 kcals (25-30 kcal/kg), 101-126 gm prote in (1.2-1.5 gm/kg) lan of Care - Nelli Le [facility]-AUTOMATIC OPERATOR - 06/28/2017 10:17 AM PSTFormatting of this note might be different from carey original. Speech Language Pathology - DYSPHAGIA Evaluation [id number] LILIAN HURST Date of : 1935 Referring/Attending [...] PLOF: Patient with history of COPD and FOUNDATION DIGGER was concerning for aspiration pneumonitis vs PNA [...] liquids with univ ersal aspiration precautions. Problem: AUTOMATIC OPERATOR Goals- Adult Goal: Dysphagia Goal Outcome: Goal [...] status, increased temp) DISCHARGE RECOMMENDATIONS: No further AUTOMATIC OPERATOR needs Plan: No indication for further AUTOMATIC OPERATOR therapy at this time. AUTOMATIC OPERATOR team signing off. Please re order as appropriate. Thank you for this consult. Nelli Le MS CCC-AUTOMATIC OPERATOR Speech Language Pathologist Pgr [phone] andoff - Brittney Bautista RN - 06/27/2017 10:33 PM PSTNursing Handoff Patient Daily Goal: To breath better and be able to sleep tonight (06/27/171955) [facility] IP NURSE HANDOFF: [facility] hospital course events: Grant is a 82 y.o. man admitted to the [facility] for septic shock likely secondary to acute cholangitis. 2: Tx to 7A MICU, ERCP done, pressor needs, SVT --> junctional rhythm, inocente, and pauses (cards consulted) 06/27: extubated to 2 liters nasal canula. NSR. SAFETY Patient/Family Target: Aki will maintain hemodynamic stability Progress to Target: Improving As evidenced by: - Per MD note, Aki was admitted to [facility] with septic shock and severe hypotension. [...] and increase PO intake (0 06/27/17 1720) [facility] IP NURSE HANDOFF: [facility] hospital course events: Grant is a 82 y.o. man admitted to the [facility] for septic shock likely secondary to acute cholangitis. 26: Tx to 7A MICU, ERCP done, pressor needs, SVT --> junctional rhythm, inocente, and pauses (cards consulted) 06/27: extubated to 2 liters nasal canula. NSR. SAFETY Patient/Family Target: Aki will maintain hemodynamic stability Progress to Target: Improving As evidenced by: - Per MD note, Aki was admitted to [facility] with septic shock and severe hypotension. [...] Goal: to use the bathroom (06/27/17 0900) [facility] IP NURSE HANDOFF: Hartley hospital course events: Grant is a 82 y.o. man admitted to the [facility] for septic shock likely secondary to [...] Oswaldo Dodson MD - 06/27/2017 1:30 PM [facility] [address] MEDICAL ICU - TRANSFER SUMMARY Hospital Day: [...] by BJA 2017 lan of Care - Jamey Rosa RCP - 06/27/2017 8:33 AM PSTProblem: RT Goals & Interventions Goal: Actively weaning from ventilator support Patient extubated to 3 lpm nasal cannula. Strong, productive cough. No evidence of stridor. andoff - Herlinda Mccord RN - 06/27/2017 5:03 AM PSTNursing Handoff [place] IP NURSE HANDOFF: [facility] hospital course events: Grant is a 82 y.o. man admitted to the [facility] for septic shock likely secondary to [...] 06/26/2017 PO2 78 06/26/2017 HCO3 23 06/26/2017 H2DBEJGX 96.8 06/26/2017 FIO2 0.21 06/26/2017 ULX4ITD1 371 06/26/2017 [id number] 348 06/26/2017 ZIL3TRT7 108 (L) 06/26/2017 P/F ratio: Improving/worsening Today [...] Based on this assessment Adult Bronchodilator Protocol. [facility] Lela Apodaca - 06/26/2017 8:22 AM PSTAMR 639/FF 82 yom, sepsis. Pt on vent, tolerating well. Sedaition is off due to hypotension. Pt on lev ophed, sent pt into SVT. Resolved with fluid. HR 160, 108 SPB, Et CO2 35, Sat 98%. ETA 10 min [facility] Olga Cohen - 06/26/2017 6:42 AM PSTPer [facility] dispatch. [id number] [place] [facility] [place] at 0730. ETA [phone] to arrive at [facility] Abisai Brewer - 06/26/2017 4:17 AM PSTgrp 18 pag ed [facility] Abisai Brewer - 06/26/2017 4:13 AM PST4:08 [...] by Abisai Whipple at 8 4:13 AM [facility] - Hailey Apodaca RN - 06/26/2017 3:45 AM [facility] [address] Transfer Center manufacturing lead: Demographics: Lilian Hurst, 82 y.o., male Chief Complaint: Coleocystitis, common bile duct obstruction. Impending respiratory failure . Expectation of care: Management of above: Interventions performed: VS: At presentation to ED temp 102. 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 Currently HR and RR increasing. O2 increased to 6L currently. Satting in low 90s, will probably intubate soon as is having increasing distress Pertinent Labs: Labs sent Diagnostics: and ultrasound done Requested Service Line: MICU Connected to: [facility] at capacity: No DECISION: TCRN spoke with Md. Heath. Amenable to transfer to partner hospital. Attempted to place at [facility]. No beds available 2/2 staffing. Returned call to [facility] TC TRANSPORTION: [facility] Abisai Brewer - 06/26/2017 3:45 AM PST3:42 AM 06/26/2017 Dr. Heath, [facility], PT: GrantAki : 1935 MICU, DR. Miranda [...] Surgic | PST | | | | PUAL (ERCP) IN [place] | al | | [...] | + +--------+ + + + | ZZ-XP-HAF-HB,POC RT | Urgent | 06/26/2017 | | [...] + + + | ECG | Short MT interval | | [facility] | | [...] + | [facility] | [address] | [place], [place] | | | CARDIOLOGY | [address] | [address] | | + + + + + [...] | + + + + + | [facility] | [address] | [place] [address] | | | S[place], [place] | PARK [...] LABORATORY | [address] | [place] [address] | | | SERVICES, CORE | PARK [...] | | | LABORATORY | | | GABONESE | | | SERVICES, | | | [...] [facility] | [address] | [place] [address] | | | SERVICES, CORE | PARK [...] | + + + + + | [facility] | [address] | [place] [address] | | | SERVICES, CORE | RICHARD [...] TOBAR | [address] | [place], [place] | | | YUE POINT OF CARE | [address] | [address] | | | TESTS | | | [...] [facility] | [address] | [place] [address] | | | SERVICES, CORE | PARK [...] | + + + + + | [facility] | [address] | [place] [address] | | | SERVICES, CORE | PARK [...] | | | LABORATORY | | | GABONESE | | | SERVICES, | | | [...] + + | Performing | Address | City/State[facility] | Phone Number | | Organization | | | | + + + + + | [facility] | [address] | [place] [address] | | | SERVICES, [facility] | [address] | | | + [...] | + + + + + | [facility] | [address] | [place] [address] | | | [place] RUIZ | RICHARD [...] MARQUAM | [address] | [place], [place] | | | [place], POINT OF CARE | [address] | [address] | | | TESTS | | | [...] Note | + + | Service Account, [place] [employer] Assist Res In Interface - 06/28/2017 10:17 AM [...] AMADOU | [address] | [place], [place] | | | DILAN TURNER OF CARE | [facility] | [address] | | | TESTS | | | [...] (H) | 70 - 99 mg/dL | [facility] - | | | [...] TOBAR | [address] | [place], [place] | | | DILAN TURNER OF [facility] | [facility] | [address] | | | TESTS | | | [...] | | | LABORATORY | | | GABONESE | | | SERVICES, | | | [...] + + | [facility] | [address] | [place] [address] | | | SERVICES, CORE | PARK [...] | [address] | [place] [address] | | | SERVICES, CORE | PARK [...] [facility] | [address] | [place] [address] | | | SERVICES, CORE | [address] | | | + + + + + CULTURE, BLOOD BACTI & YEAST [facility] (06/27/2017 8:34 AM PST) + + + [...] | + + + + + | [facility] | [address] | [place] [address] | | | SERVICES, CORE | [address] | | | + + + + + CULTURE, BLOOD BACTI & YEAST [facility] (06/27/2017 8:16 AM PST) + + + [...] | + + + + + | [facility] | [address] | [place] [address] | | | SERVICES, CORE | PARK [...] - [place] | [address] | [place], [place] | | | YUE POINT OF CARE | [address] | [address] | | | TESTS | | | [...] | + + + + + | [facility] | [address] | [place] [address] | | | SERVICES, YOKASTA | [address] [...] [facility] | | | GRAVITY | Specific [place] | | LABORATORY | | | | [...] | + + + + + | [facility] | [address] | [place] [address] | | | SERVICES, CORE | [address] | | | + + + + + ERCP (06/27/2017 6:38 AM PST) + + | Specimen | + + | | + + + + + | Narrative | Performed At | + + + | MRN: | [facility] | | [id number] Date: 06/27/2017Patient Name: Lilian Nair #: | ENDOSCOPY | | [id number] of : 1935SN: [id number] Type: | | | InpatientRoom: SORProcedure: ERCPIndications: | | | For therapy of ascending cholangitis; 82 yo M with | | | sepsis, elevated LFTs and US showing mary dil and 1.3 cm | | | CBDProviders: RENE | | | Thompson MENDOZA MD (Doctor), JORDY SOLANO, | | | RN (Nurse), ESTELA DAMIAN RN (Shower Enclosure Installer)Referring MD: | | | Requesting Provider: Medicines: [...] The | | | Olympus TJF-Q180V Duodenoscope #[id number] was | | | introduced through the [...] with acute | | | cholangitis. The edge finisher film was normal. The esophagus was | [...] Initiated On: | | | 06/27/2017 6:38 [facility] Letter to: DARYL MARCH MD | | |06/27/2017 6:48:17 AM | | |Number of Addenda: 0 | | |Note Initiated On: 06/27/2017 6:38 AM | | | Letter to: | | | DARYL MARCH MD | | + + + + +---------+ + + | Performing | Address | City/State[facility] | Phone Number | | Organization | | | | + +---------+ + + | [facility] | | | | + +---------+ + + IP ENDOSCOPY AFTERHOURS (06/27/2017 6:38 AM PST) + + | Specimen | + + | | + + + + + | Narrative | Performed At | + + + | MRN: | [facility] | | [id number] Date: 06/27/2017Patient Name: Lilian Nair #: | ENDOSCOPY | | [id number] of : 1935SN: [id number] Type: | | | InpatientRoom: SORProcedure: ERCPIndications: | | | For therapy of ascending cholangitis; 82 yo M with | | | sepsis, elevated LFTs and US showing mary dil and 1.3 cm | | | CBDProviders: BRINTHA | | | Thompson MENDOZA MD (Doctor), JORDY SOLANO, | | | RN (Nurse), ESTELA DAMIAN RN (Shower Enclosure Installer)Referring MD: | | | Requesting Provider: Medicines: [...] The | | | Olympus TJF-Q180V Duodenoscope #[id number] was | | | introduced through the [...] with acute | | | cholangitis. The edge finisher film was normal. The esophagus was | [...] Initiated On: 06/27/2017 | | | 6:38 [facility] Letter to: DARYL MARCH MD | | [...] | + + + + + | [facility] | [address] | [place] [address] | | | SERVICES, CORE | [address] [...] | + + + + + | modulR | [address] | [place] [address] | | | SERVICES, CORE | PARK [...] [facility] | [address] | [place] [address] | | | SERVICES, CORE | PARK [...] | | | LABORATORY | | | GABONESE | | | SERVICES, | | | [...] | + + + + + | [facility] | [address] | [place] [address] | | | SERVICES, CORE | [address] [...] + + | ECG | Borderline prolonged MT | | [facility] | | | [...] + | [facility] | [address] | [place], [place] | | | CARDIOLOGY | [address] | [address] | | + + + + + [...] LABORATORY | [address] | [place] [address] | | | SERVICES, CORE | PARK [...] + | [facility] | [address] [facility] [address] | [place], [place] | | | YUE POINT OF [facility] | [address] | [address] | | | TESTS | | | [...] Note | + + | Service Account, [place] [employer] Assist Res In Interface - 06/27/2017 9:07 AM [...] AM[facility] | [address] | [place], [place] | | | DILAN TURNER OF [place] | [address] | [address] | | | TESTS | | | [...] OF | [address] | [place], [place] | | | CARDIOLOGY | [address] | [address] | | + + + + + [...] correct patient, procedure, | | | equipment, other sales support worker and site/side marked as required. | | [...] | | | | | | Pathology Res[place] | | | | | | Loius Fritz MD PhD / | | | [...] number | | | | | | [id number]. Bile duct, | | | | | [...] | + + + + + | [facility] | [address] | [place] [address] | | | PATHOLOGY | [address] [...] correct patient, | | | procedure, equipment, other sales support worker and site/side marked as required. | | [...] modified Seldinger technique (a | | | ozdwskwp-mupr-lun-uzmogl-twno-ksxg-lugkpvx-crb-ibjdperw) was used for | | | vessel [...] | + + + + + | [facility] | [address] | [place] [address] | | | SERVICES, CORE | [address] [...] [facility] | [address] | [place] [address] | | | SERVICES, CORE | PARK [...] | + + + + + | [facility] | [address] | [place] [address] | | | SERVICES, CORE | PARK [...] | + + + + + | [facility] | [address] | [place] [address] | | | SERVICES, CORE | [address] [...] | | | LABORATORY | | | GABONESE | | | SERVICES, | | | [...] | + + + + + | [facility] | [address] | [place] [address] | | | SERVICES, YOKASTA | [address]ICH[address] [...] OF | [address] | [place], [place] | | | CARDIOLOGY | [address] | [address] | | + + + + + [...] LABORATORY | [address] | [place] [address] | | | SERVICES, CORE | PARK [...] | + + + + + | [facility] | [address] | [place] [address] | | | YOKASTA RUIZ | [address] [...] LABORATORY | [address] | [place] [address] | | | YOKASTA RUIZ | [address] [...] Note | + + | Service Account, [place] [employer] Assist Res In Interface - 06/26/2017 12:57 PM [...] | + + + + + | [facility] | [address] | [place] [address] | | | SERVICES, CORE | [address] [...] Note | + ----+ | Service Account, [place] [employer] Assist Res In Interface - 06/26/2017 12:57 PM [...] Note | + + | Service Account, [place] [employer] Assist Res In Interface - 06/26/2017 10:12 AM [...] | + + + + + | modul[facility] | [address] | [place] [address] | | | SERVICES, | [address] [...] LABORATORY | [address] | [place] [address] | | | SERVICES, | [address] [...] | + + + + + | [facility] | [address] | [place] [address] | | | SERVICES, | [address] [...] + + + | ECG | Prolonged MT interval | | [facility] | | [...] OF | [address] | [place], [place] | | | CARDIOLOGY | [address] | [address] | | + + + + + BLOOD CULTURE WORKUP (06/26/2017 9:39 AM PST) + + + + + + | Component | Value | Ref Range | Performed | Pathologist | | | | | At | Signature | + + + + + + | CULTURE | Klebsiella oxytoca (A) | | [facility] - | | | RESULT | | | [facility] - | | | | | | [place] | | + + + + + [...] + | [facility] - | [address] | [place] [address] | | | [place] | | | [...] | + + + + + | [facility] [facility] - | [address] | [place] [address] | | | [place] | | | | + + + [...] | + + + + + | [facility] | [address] | [place] [address] | | | SERVICES, CORE | [address]ICHARD [...] + + | [facility] | [address] | [place] [address] | | | SERVICES, CORE | P[address] [...] | + + + + + | [facility] | [address] | [place] [address] | | | SERVICES, CORE | [address] [...] LABORATORY | [address] | [place] [address] | | | SERVICES, CORE | PARK [...] LABORATORY | [address] | [place] [address] | | | SERVICES, CORE | P[address] [...] | + + + + + | [facility] | [address] | [place] [address] | | | SERVICES, CORE | [address] | | | + + + + + MAGNESIUM, PLASMA (06/26/2017 9:30 AM PST) + +-------+ + + + | Component | Value | Ref Range | Performed | Pathologist | | | | | At | Signature | + +-------+ + + + | MAGNESIUM,P | 1.8 | 1.6 - 2.6 mg/dL | [facility] | | | LASMA | | | [...] LABORATORY | [address] | [place] [address] | | | SERVICES, CORE | [address]ICH[address] [...] | | | LABORATORY | | | GABONESE | | | SERVICES, | | | [...] LABORATORY | [address] | [place] [address] | | | SERVICES, CORE | P[address] [...] | + + + + + | [facility] | [address] | [place] [address] | | | SERVICES, CORE | [address] | | | + + + + + JL-CG-GAF-HB,POC RT (06/26/2017 8:55 AM PST) + + [...] [facility] | [address] | [place], [place] | | | YUE POINT OF CARE | [address] | [address] | | | TESTS | | | [...] 8:06 | | | | | on [facility] 06/28/17 at 0900, Until | | AM [...]
--- OUTSIDE RECORDS SUMMARY | ~2020-03-03 | XMS | Encounter Summary ---
Demographics + + + | Address | [address] | | | [place] [address] | + + + | Home Phone [...] Team Providers + +------+ + | Care Leather Coverer Name | Role | Phone | + [...] | [address] | MD Jun [address] | | | | | Herb Mailcode: [id number] | [place], | | | | | [place], [place] | [place] [address] | | | | | [address] | [phone] | | | | | [phone] | | | +--------+ + + + [...]
--- OUTSIDE RECORDS SUMMARY | ~2020-03-03 | XMS | Encounter Summary ---
Demographics + + + | Address | [address] | | | [place] [address] | + + + | Home Phone | | + + + | Preferred Language | Unknown | + + + | Marital Status | | + + + | Mu-Ism Affiliation | NON | + + + [...] Team Providers + +------+ + | Care Soup Person Name | Role | Phone | + +------+ + | Herlinda Maldonado | PCP | | + +------+ + Encounter Details +--------+ + + + + | Date | Type | Department | Care Team | Description | +--------+ + + + + | 06/26/ | Document-Sc | Health Information | Other, Faculty | | | 2018 | anned | Services [address] | [phone] | | | | | [address] | | | | | | Mailcode: [id number] | | | | | | [facility] | | | | | | [place], [place] | | | | | | [address] | | | | | | [phone] | | | +--------+ + + + [...]
--- OUTSIDE RECORDS SUMMARY | ~2020-03-03 | XMS | Encounter Summary ---
Demographics + + + | Address | [address] | | | [place] [address] | + + + | Home Phone [...] + + + | Author | [facility] | + + + | Organization | [facility] | + + + | Address | Unknown | + + + | Phone | Unavailable | + + + Support + + +---------+ + | Name | Relationship | Address | Phone | + + +---------+ + | None Per Pt | ECON | Unknown | Unavailable | + + +---------+ + Care Team Providers + +------+ + | Care Treatment Counselor Name | Role | Phone | + [...] | | | | | | [facility] | | | | | | Hospital Admitting | | | | | | Desk Located on the | | | | | | 9th floor | | | | | | [place], [place] | | | | | | [address] | | | +--------+ + + + [...]
--- OUTSIDE RECORDS SUMMARY | ~2020-03-03 | XMS | Encounter Summary ---
Demographics + + + | Address | [address] | | | [place] [address] | + + + | Home Phone [...] Team Providers + +------+ + | Care Religious Healer Name | Role | Phone | + +------+ + | Herlinda Maldonado | PCP | | | PA | | | + +------+ + Encounter Details +--------+ + + + + | Date | Type | Department | Care Team | Description | +--------+ + + + + | 03/26/ | [facility] | [facility] | Maximilian Abreu | Atrial fibrillation, | | 2019 | Encounter | MED CTR NUCLEAR | MD Jon [address] | unspecified type | | | | MEDICINE [address] [place] | ([facility]); Abnormal EKG | | | | [place], | [place] [address] | | | | | [place] [address] | [phone] | | | | | [phone] | | | +--------+ + + + [...] | | | | | | Written: 01/03/18 | | | | | | | [...] AGE: 84 y.o. PRIMARY CARE: SHAHEEN Toro [place] HAND LOOM WEAVER: Salvador Abreu MD, PhD, [facility] 48-HOUR HOLTER MONITOR REPORT DATE: 03/26/2019 FINDINGS: [...] 25 cycles on 01:15. 5) There were 96473 Supraventricular beats with 558 couplets and 78 [...] reported. Signed by: Salvador Abreu MD PhD [facility] 03/27/2019, 16:05 documented in t his encounter [...] PRIMARY CARE: | | | SHAHEEN Toro [place] HAND LOOM WEAVER: Salvador Abreu MD, | | | PhD, [facility] 48-HOUR HOLTER MONITOR REPORT DATE: [...] 01:15. | | | 5) There were 44178 Supraventricular beats with 558 couplets and | [...] | Signed by: Salvador Abreu MD PhD [facility] 03/27/2019, 16:05 | | + [...]
--- OUTSIDE RECORDS SUMMARY | ~2020-03-03 | XMS | Encounter Summary ---
Demographics + + + | Address | [address] | | | [place] [address] | + + + | Home Phone [...] Team Providers + +------+ + | Care Crozer Name | Role | Phone | + +------+ + | Herlinda Maldonado | PCP | | + +------+ + Encounter Details +--------+ + + + + | Date | Type | Department | Care Team | Description | +--------+ + + + + | 06/20/ | Documentati | General Internal | Annabella Gallardo DO | | | 2019 | on [facility] | [address] | | | | | [address] | [place], | | | | | [place], | [place] [address] | | | | | [place] [address] | [phone] | | | | | [phone] | | | +--------+ + + + [...]
--- OUTSIDE RECORDS SUMMARY | ~2020-03-03 | XMS | Encounter Summary ---
Demographics + + + | Address | [address] | | | [place] [address] | + + + | Home Phone [...] Team Providers + +------+ + | Care Environmental Sampling Technician Name | Role | Phone | [...] Mitesh | | | | | [facility] | [facility] | | | | | [facility] Admitting | [place], [place] | | | | | Desk Located on the | [address] | | | | | 9th floor | [phone] | | | | | [place], [place] | | | | | | [address] | | | +--------+ + + + [...] + + | Urethr | 06/26/17; 09; [facility]; | 06/26/17 09 by | 06/27/17 1100 by | | al | Veena-nita Arriaga; 06/27/17; 1100 | Leonor Peck RN | Lani Chicas RN | | Cathet | | | | | er | | | | +--------+ + + + | Centra | 06/26/17; 0900; Dr. Garcia; [facility]; | 06/26/17 0900 by | 06/27/17 [...] be different from the original. William Burns [id number] Allergies Allergen Reactions Aromatic Dyspnea Budesonide-Formoterol Dyspnea [...] be different from the original. William Burns [id number] Allergies Allergen Reactions Aromatic Dyspnea Budesonide-Formoterol Dyspnea [...] Date RATE 76 06/26/2017 ATRIALRATE 77 06/26/2017 MT 223 06/26/2017 QRS 145 06/26/2017 QT 469 [...] his daughter Sharon mcdonald by phone at [phone], discussed plan to bring [place] to [place] [...]
--- OUTSIDE RECORDS SUMMARY | ~2020-03-03 | XMS | Encounter Summary ---
Demographics + + + | Address | [address] | | | [place] [address] | + + + | Home Phone [...] Team Providers + +------+ + | Care Hide And Skin Classer Name | Role | Phone | + [...] | | Medicine at Offsite | [address] | Insomnia; Weakness | | | | [address] | [address] | | | | | [place], | [place], [place] | | | | | [place] [address] | [address] | | | | | [phone] | [phone] | | | | | | | [...]
--- OUTSIDE RECORDS SUMMARY | ~2020-03-03 | XMS | Encounter Summary ---
Demographics + + + | Address | [address] | | | [place] [address] | + + + | Home Phone | | + + + | Preferred Language | Unknown | + + + | Marital Status | | + + + | Protestant Affiliation | Unknown | + + + | Race | White | + + + | Ethnic Group | Not or | + + + Author + + + | Author | [facility] | | | and [place] | + + + | Organization | [facility] | | [...] Team Providers + +------+ + | Care Organ Builder Name | Role | Phone | + [...] | Atrial | Maximilian | [address] | | | | | fibrillation | MD Jon | [place], | | | | | , | [address] | [place] | | | | | unspecified | St [place] | [address] | | | | | type (HCC) | [place], [place] | Phone: | | | | | Procedures | [address] | [phone] | | | | | ECHO | Phone: | Fax: | | | | | Complete | [phone] | [phone] | | | | | | Fax: | | | | | | | [phone] | | +--------+--------+ + + + + [...] | Atrial | Maximilian | [address] | | | | | fibrillation | MD Jon | [place], | | | | | , | [address] | [place] | | | | | unspecified | St [place] | [address] | | | | | type (HCC) | [place], [place] | Phone: | | | | | Procedures | [address] | [phone] | | | | | ECHO | Phone: | Fax: | | | | | Complete | [phone] | [phone] | | | | | | Fax: | | | | | | | [phone] | | +--------+--------+ + + + + Encounter Details +--------+ + + + + | Date | Type | Department | Care Team | Description | +--------+ + + + + | 03/26/ | Hospital | [facility] | Maximilian Goddard | Atrial fibrillation, | | 2019 | Encounter | MED CTR ECHO [address] | MD Jon [address] | unspecified type | | | | [address] [place] | [address] [place] | ([facility]) | | | | [place] [address] | [place] [address] | | | | | [phone] | [phone] | | | | | | | [...] | | | | | | n [place] | | | | | + + [...] | | | | | | [place] | | | | | + + [...] | LILIAN SOTO Room Number Patient Number [id number] Date | | | of Study 03/26/2019 Visit Number [id number] | | | Referring Physician JON GODDARD MD Accession | | | [id number] [facility] Number | | | Date of 1935 Interpreting | | | JON GODDARD MD | | | Physician Age 84 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
--- OUTSIDE RECORDS SUMMARY | ~2020-03-03 | XMS | Encounter Summary ---
Demographics + + + | Address | [address] | | | [place] [address] | + + + | Home Phone | | + + + | Preferred Language | Unknown | + + + | Marital Status | | + + + | Taoism Affiliation | Unknown | + + + [...] Team Providers + +------+ + | Care Unpaid Intern Name | Role | Phone | + [...] + + | 08/01/ | Telephone | [facility] | Jamey Hdz | Procedure (ERCP) | | 2018 | | GASTROENTEROLOGY | MD Sarkis [address] | | | | | [address] TREASURE | [facility] | | | | | [address] [place], [place] | [place] [address] | | | | | [address] | [phone] | | | | | [phone] | | | +--------+ + + + [...]
--- OUTSIDE RECORDS SUMMARY | ~2020-03-03 | XMS | Encounter Summary ---
Demographics + + + | Address | [address] | | | [place] [address] | + + + | Home Phone [...] Providers + +------+ + | Care Wood Fuel Pelletizer Name | Role | Phone | + [...] as of this encounter Procedure Notes Interface, Laboratory Tester In - 11/26/2005 3:[address] [address] [facility] OPERATION RECORD Med Rec No.: [id number] Date: [...] was patched. Fozia Crawford M.D., PhD JTS:[id number] signed by Cristal Jackson In at 11/26/2005 3:10 AM [facility] this encounter Plan of Treatment [...] | Transcriptions | + + | Interface, Laboratory Tester In - 11/26/2005 3:10 AM PDT | | [facility] [address] | | [place], [place] [address] | | [facility] RECORDMed Rec No.: | | [id number] [...] waspatched.Fozia Crawford M.D., PhDJTS:X44D: 06/19/2002T: | | 06/20/[id number] | |lid speculum was placed. Slit light [...] | |JTS:X44 | | | | | |[id number] | + + documented in this encounter Visit Diagnoses Not on filedocumented in this encounter"
--- OUTSIDE RECORDS SUMMARY | ~2020-03-03 | XMS | Encounter Summary ---
Demographics + + + | Address | [address] | | | [place] [address] | + + + | Home Phone [...] Team Providers + +------+ + | Care Water Softener Servicer Name | Role | Phone | + [...] as of this encounter Procedure Notes Interface, Typewriter Ribbon Winder In - 11/26/2005 3:[address] [address] [facility] OPERATION RECORD Med Rec No.: [id number] Date: 07/14/2002 Name: Carlos Burns ATTENDING SURGEON: Fozia Crawford M.D., Ph.D. POLISHER NUMERAL: Med Gu M.D. PREOPERATIVE DIAGNOSIS: Rhegmatogenous retinal detachment, right eye. POSTOPERATIVE DIAGNOSIS: Rhegmatogenous retinal detachment, right eye with proliferative vitreoretinopathy. OPERATIONS PERFORMED: 1. Pars plana vitrectomy with membrane segmentation, right eye. 2. Panretinal endolaser, right eye. 3. Gas fluid exchange, right eye. 4. Silicone oil gas exchange, right eye. SPECIMEN: None. COMPLICATIONS: None. ESTIMATED BLOOD LOSS: Less than 1 cc. INDICATIONS: The patient is a gentleman who is three weeks status post macular hole surgery in his right eye. He noted improving vision. Despite his improvement in vision, it was noted that he had two inferior retinal tears that resulted in an inferior retinal detachment. It was decided to repair this emergently, as his macula was still attached. PROCEDURE: After obtaining informed consent, the patient was taken to the operating room where retrobulbar anesthesia was obtained by delivering 4 cc of a 50:50 mixture of lidocaine and Marcaine into the retrobulbar space via an Lozano needle. After establishing adequate anesthesia and akinesia, attention was directed towards the right eye, into which a wire lid speculum was placed. Slit-like conjunctival peritomies were performed in the supratemporal, supranasal, and infratemporal quadrants, so as to expose bare sclera 4 mm posterior to the limbus. Hemostasis was achieved with eraser-type cautery. A 6-0 Vicryl sutures was passed mattress fashion in the infratemporal quadrant, 4 mm posterior to the limbus. An MVR blade was used to create a sclerotomy at the site and a 4.0-mm posterior infusion cannula was placed inside the eye and sewn into place using the aforementioned sutures. Direct transpupillary visualization of the posterior infusion cannula tip disclosed that it was in the posterior cavity, so posterior infusion was turned on. Similar sclerotomies were made in the supratemporal and supranasal quadrants. A light pipe and microvitrector were placed inside the eye and were used to carry out a thorough pars plana vitrectomy. There was vitreous base that remained that had floated into the center of the eye. This was all removed. Pigmented cells were noted to exist within this material. The vitreous base was trimmed, as aided by external scleral depression, 360 degrees around the eye. At least four breaks were noted in the eye. Two of these were relatively posterior and one of them appeared to be a flap with proliferative material adherent to the flap. Using the Fernandez forceps, this material was removed from the surface of the retina without increasing the size of the hole or creating new retinal breaks. After the release of the traction on this hole and trimming the vitreous around the other inferior breaks, a gas fluid exchange was performed, which completely flattened the retina. Using the IRIS endolaser delivery system, 841 laser spots were applied in the inferior retina and around each of the breaks. This was aided by external scleral depression. After the removal of the vitreous, the removal of the membranes, the gas fluid exchange, and the placement of the laser, the air inside the eye was exchanged for 5000-cent[place]oke silicone oil. The sclerotomies were sewn closed and were noted to be oil tight upon closure. The eye was copiously irrigated with balanced saline solution (BSS) and the conjunctiva was sewn closed with 6-0 plain gut suture. The eye received subconjunctival injections of Zinacef and Decadron. Maxitrol was placed in the eye and the eye was patched. The patient was taken from the operating room to the recovery room in stable condition. Fozia Crawford M.D., Ph.D. JS:x54 [id number] signed by Renetta, Typewriter Ribbon Winder In at 11/26/2005 3:10 VALENTINO Duong umented in this encounter Plan of Treatment [...] | Transcriptions | + + | Interface, Typewriter Ribbon Winder In - 11/26/2005 3:10 AM PDT | | [place] [address] | | [place], [place] [address] | | [facility] REC[facility]Med Rec No.: | | [id number] Date: 07/14/2002Name: Carlos Burns SURGEON: | | Fozia Crawford M.D., Ph.D.POLISHER NUMERAL: Med | | [place].PREOPERATIVE DIAGNOSIS:Rhegmatogenous retinal detachment, right | | eye.POSTOPERATIVE [...] | | Jun Crawford M.D., Ph.D.JS:x54D: 07/14/2002T: 07/16/[id number] | |attention was directed towards the right [...] | |JS:x54 | | | | | |[id number] | + + documented in this encounter Visit Diagnoses Not on filedocumented in this encounter"
--- OUTSIDE RECORDS SUMMARY | ~2020-03-03 | XMS | Encounter Summary ---
Demographics + + + | Address | [address] | | | [place] [address] | + + + | Home Phone [...] Team Providers + +------+ + | Care Mortgage Loan Specialist Name | Role | Phone | [...] | | | [place], | [place] [address] | | | | | [place] [address] | [phone] | | | | | [phone] | | | +--------+ + + + [...] Annabella Gallardo DO PGY-1 | Internal Medicine [id number] signed by Annabella Gallardo DO at 06/18/2018 4:29 PM PSTdocumented in thi s encounter Plan of Treatment Not on filedocumented as of this encounter Visit Diagnoses Not on filedocumented in this encounter
--- OUTSIDE RECORDS SUMMARY | ~2020-03-03 | XMS | Clinical Summary ---
Demographics + + + | Address | [address] | | | [place] [address] | + + + | Home Phone | | + + + | Preferred Language | Unknown | + + + | Marital Status | | + + + | Evangelical Affiliation | Unknown | + + + | Race | White | + + + | Ethnic Group | Not or | + + + Author + + + | Author | [facility] | | | and [place] | + + + | Organization | [facility] | | [...] Team Providers + +------+ + | Care Airplane Dispatcher Name | Role | Phone | + [...] [place] | | Endobiliary stent placed at [facility] | + + + + [...] | | t Plan | ID | lenoela | | | | | | / | | Dates | | | | | | Group | | | | | | + +--------+ +--------+-------+---------+--------+ | [employer] | [facility] | [id number] | 05/21/19 | | | [employer]ica | | | HEALTH | | 19-Pre | | | re | | | MDCR | | sent | | | | + +--------+ +--------+-------+---------+--------+ | [employer] | [employer] | [id number] | | | | [employer] | | [...] Person | Self [birth year] | [address] | | | al/Fam | | 1935 | [phone] | [place], [place] | | | michelle | | | 4 (Home) | [address] | + +--------+ +--------+ + + | William Burns | Person | Self | [birth year] | [address] | | | al/Fam | | 1935 | [phone] | [place], [place] | | | michelle | | | 4 (Home) | [address] | + +--------+ +--------+ + + Advance Directives + + + + + | Type | Date Recorded | Patient | Explanation | | | | Supervisor Particleboard | | + + + + + | Power of | | | | | Painter Decorator | | | | + + + + + | Advance | 08/09/2017 11:17 | | | | Directive | AM | | | + + + + +
--- OUTSIDE RECORDS SUMMARY | ~2020-03-03 | XMS | Encounter Summary ---
Demographics + + + | Address | [address] | | | [place] [address] | + + + | Home Phone [...] Team Providers + +------+ + | Care Associate Professor Of Law Name | Role | Phone | + [...] | | [facility] | [facility] | | | | | Hospital Admitting | [place], [place] | | | | | Desk Located on the | [address] | | | | | 9th floor | [phone] | | | | | [place], [place] | | | | | | [address] | | | +--------+ + + + [...] | | +--------+ + + + | Tobacco Sieve Operator | 06/27/17; 2205; Medium | 06/27/172205 by [...] | | Endotracheal Tube; 7.5; Oral; | SHIPPER RECEIVER | SHIPPER RECEIVER | | | 06/03/18; 1418 | | [...] be different from the original. William Burns [id number] Allergies Allergen Reactions Aromatic Dyspnea Budesonide-Formoterol Dyspnea [...] e different from the original. William Burns [id number] Allergies Allergen Reactions Aromatic Dyspnea Budesonide-Formoterol Dyspnea [...] List Diagnosis Choledocholithiasis Acute cholangitis Klebsiella sepsis ([facility]) Aspiration pneumonitis ([facility]) S/P ERCP COPD (chronic obstructive pulmonary disease) ([facility]) Essential hypertension Physical deconditioning Past Surgical History [...] Date RATE 78 06/02/2018 ATRIALRATE 79 06/02/2018 HI 177 06/02/2018 QRS 139 06/02/2018 QT 425 [...]
--- OUTSIDE RECORDS SUMMARY | ~2020-03-03 | XMS | Encounter Summary ---
Demographics + + + | Address | [address] | | | [place] [address] | + + + | Home Phone [...] + + + | Author | [facility] | | | and [place] | + + + | Organization | [facility] | | | [...] Team Providers + +------+ + | Care Hematology Supervisor Name | Role | Phone | [...] | | | | | [address] | [address] [place], [place] | | | | | [place], [place] | [address] | | | | | [address] | | | | | | [phone] | | | +--------+ + + + [...] [address] | | eral | qbkf-dod-eoarot catheter system; | Precious Remy RN | [...] EVALUATION William Burns 82 y.o. male 1935 [id number] Procedure(s) ERCP (N/A Mouth) Cooperates? Yes Mental [...] signed by Tono Dominguez MD 08/14/2017 18:40 [facility] nesthesia Procedure Notes - Tono Dominguez [...] EVALUATION William Burns 82 y.o. male 1935 [id number] Procedure(s): ERCP (N/A Mouth) Review of Systems [...]
--- OUTSIDE RECORDS SUMMARY | ~2020-03-03 | XMS | Encounter Summary ---
Demographics + + + | Address | [address] | | | [place] [address] | + + + | Home Phone | | + + + | Preferred Language | Unknown | + + + | Marital Status | | + + + | Jewish Affiliation | Unknown | + + + | Race | White | + + + | Ethnic Group | Not or | + + + Author + + + | Author | [facility] | | | and [place] | + + + | Organization | [facility] | | [...] | +--------+ + + + + | 08/10/ | Hospital | [facility] | Sudeep Sarabia, | GI bleed; Lower | | 2013 - | Encounter | [facility] | MD Carlos MIRZA | abdominal pain; HTN | | | | CLINICAL DECISION | [place] [id number] | (hypertension) | | 08/13/ | | UNIT [facility] | [phone] | | | 2013 | | [place], [place] | | | | | | [address] | | | | | | [phone] | | | +--------+ + + + [...] documented as of this encounter Discharge Summaries Iban Medina MD - 08/13/2013 8:43 AM PDT Discharge Summaries by Iban Medina MD at 08/13/13 0843 Author: Iban Medina MD Service: Hospitalist Author Type: Physician Filed: 08/13/13 1735 Date of Service: 08/13/1343 Status: Signed Hydraulic Chair Assembler: Iban Medina MD (Physician) Related Notes: Original Note by Iban Medina MD (Physician) filed at 08/13/13 1524 HOSPITALIST DISCHARGE SUMMARY Patient ID: William Hurst [id number] 78 y.o. 1935 Admit date: 08/10/2013 Discharge [...] loss. The patien t was brought to [facility] and was transferred to [facility] for a GI evaluation. Dr. Ball from gastroenterology was consulted because of the ac [place] GI bleed. The patient was started on IV proton pump inhibitors. Dr. Ball perfor med an endoscopy which showed an esophageal ulcer. The ulcer had a non-bleeding visible bloo d vessel at the distal esophagus. The ulcer was injected with epinephrine and treated with E ndoclips. There was a large blood clot found in the gastric fundus. Gastric mucosa was coate d with black liquid. After the treatment with endoscopy the patient was transferred to the [facility] floor. Serial hemoglobin and hematocrit were checked. The patient was kept on IV p roton pump inhibitor. He did well. Hemoglobin remained fairly stable. He does have some cary k stools on-and-off but his hemoglobin has been stable and this is expected. He has not had any active bleed. Discussed with Dr. Ball today and he is okay with discharging the patient since has remained stable for 72 hours after he presented with the bleed. Dr. Veronica rosario recommended to switch him to omeprazole 20 mg twice a day which was done yesterday and he did well on that. I will discharge him with omeprazole 20 mg twice a day to be contin ued. Dr. Ball will follow him up in a couple of weeks. Instructed this to the patie nt. For now, we are going to hold off on aspirin. The patient can be restarted once cleared by Dr. Ball. The patient was on aspirin because of [...] physician and Dr. Pancho ta for followup. Discharge Vitals: Filed Vitals: 08/12/13 1906 08/13/13 0015 08/13/13 0318 08/13/13 0726 BP: 117/56 122/63 138/68 141/72 Pulse: 66 72 58 58 Temp: 97.9 F (36.6 C) 97.6 F (36.4 C) 97.9 F (36.6 C) 98.5 F (36.9 C) TempSrc: Oral Oral Oral Oral Resp: 18 18 18 18 Height: Weight: 90.266 kg (199 lb) SpO2: 97% 93% 95% 92% Discharge Exam: General: Comfortable HEENT: No thrush. Neck: No JVD, Trachea midline. Psych: Alert and oriented x 3. Calm, cooperative. Cardiovascular: Regular rate and rhythm, no murmurs, no palpable thrills. Normal PMI. Respiratory: Clear to auscultation, no wheezing or crackles, breathing non labored. Chest e xpansion equal on both sides. No use of accessory muscles. Gastrointestinal: Soft, non-tender, non-distended, positive bowel sounds. No HSM. Musculoskeletal: No edema in bilateral lower extremities. No joint swelling. Skin: Warm and dry. Neurological: Higher functions grossly normal. Non focal. Motor and sensory grossly intact. Normal co-ordination LABS: Lab 08/13/13 0500 08/12/13 0450 08/11/13 1549 08/11/13 0513 WBC 8.3 7.5 -- 7.0 HGB 11.0* 10.6* 11.2* -- HCT 33.5* 31.8* 34.1* -- PLT 186 171 -- 164 NEUTOPHILPCT 66.0 69.8 -- 65.6 MONOPCT 7.3 6.3 -- 9.2 Results No Results found for the last 72 hours. End Esophogogastroduodenoscopy 08/10/2013 This is a non-reportable procedure without a radiologist report and is used for image storage only. Please review the GI encounter notes for details on the procedure. Disposition: Home or Self Care Patient Instructions: Medication List As of 08/13/2013 3:20 PM START taking these medications omeprazole 20 MG capsule QTY: 60 capsule Refills: 0 Commonly known as: PRILOSEC Take 1 capsule by mouth 2 (two) times daily before meals. CHANGE how you take these medications furosemide 40 MG tablet QTY: 7 tablet Refills: 0 Commonly known as: LASIX Take 0.5 tablets by mouth daily. What changed: - dose - how often to take the med CONTINUE taking these medications amLODIPine 5 MG tablet Refills: 0 Commonly known as: NORVASC CLARITIN 10 MG Caps Refills: 0 Generic drug: Loratadine lisinopril 20 MG tablet Refills: 0 Commonly known as: ZESTRIL STOP taking these medications aspirin 81 MG EC tablet Where to get your medications These are the prescriptions that you need to knot picker cloth. You may get these medications from any pharmacy. furosemide 40 MG tablet omeprazole 20 MG capsule Activity: activity as tolerated Diet: cardiac Follow up: Daryl Matehws MD [address] [place] [address] [place] [address] Schedule an appointment as soon as possible for a visit Perry Ball MD [address] [facility] [address] In 2 weeks Discharge took approximately 40 minutes, to include final examination,discussion of admissi on, and preparation of prescriptions, instructions for ongoing care, follow up and dictation of summary. Signed: Iban Medina 08/13/2013 3:20 PM documente d in this encounter Progress Notes Conversion Transaction, Provider Unknown - 08/13/2013 12:20 PM PDTFormatting of this note m ight be different from the original. Progress Notes by Danielle Rubin RN at 08/13/13 1220 Author: Danielle Rubin RN Service: (none) Author Type: Registered Nurse Filed: 08/13/13 1221 Date of Service: 08/13/13 1220 Status: Signed Hydraulic Chair Assembler: Danielle Rubin RN (Registered Nurse) Pt ready for DC. All DC instructions given and understood, at bedside, pt enjoying roxane ch informed to call when through to be wheeled out. Danielle Rubin RN onver audrey Transaction, Provider Unknown - 08/12/2013 3:02 PM PDT Case Management by Diane Hightower RN at 08/12/13 1507 Author: Diane Hightower RN Service: (none) Author Type: Registered Nurse Filed: 08/12/13 1508 Date of Service: 08/12/13 1502 Status: Addendum Hydraulic Chair Assembler: Diane Hightower RN (Registered Nurse) Related Notes: Original Note by Diane Hightower RN (Registered Nurse) filed at 0 08/12/13 1505 Hospital Discharge Screening Criteria for High Risk Older Adults Age 65 or older - yes Moderate to severe functional deficits documented - no An active behavior and/or psychiatric health issue - no Two of more active co-existing health conditions - yes Six or more prescribed medications - no Two or more hospitalizations within past 6 months - no A hospitalization within the past 30 days - no Inadequate support system - no Low health literacy - no Documented history of non-adherence to the therapeutic regiment - no Total "Yes" Findings: two If 2 or more findings are present further investigation is warranted and formal collaborati ve assessment of discharge planning should be initiated. This patient is at high risk for d ischarge needs and possible preventable readmission. Wendi Charles MD - 08/12/2013 8:47 AM PDTFormatting of this note might be different from the or iginal. Progress Notes by Iban Medina MD at 08/12/13 0844 Author: Iban Medina MD Service: Hospitalist Author Type: Physician Filed: 08/12/13 1313 Date of Service: 08/12/13846 Status: Signed Hydraulic Chair Assembler: Iban Medina MD (Physician) [facility] Service: Hospitalist Progress Note Hospital Day: LOS: 2 days Chief Complaint: Hematemesis SUBJECTIVE Events Overnight: Patient feeling good. No more bleeding, has not passed any black stool today. Feels constip ated though. Denies CP, SOB, N/V, Diarrhea, Abdominal pain or MARCIAL. No cough or fever. Scheduled Medications amLODIPine 5 mg Oral Daily [COMPLETED] bisacodyl 10 mg Rectal Once docusate sodium 100 mg Oral BID lisinopril 20 mg Oral Daily omeprazole 20 mg Oral BID AC [DISCONTINUED] furosemide 40 mg Oral BID Continuous Infusions [DISCONTINUED] pantoprazole 8 mg/hr (08/12/13 0736) [DISCONTINUED] sodium chloride 75 mL/hr at 08/12/13 0746 PRN Medications acetaminophen, acetaminophen, ipratropium-albuterol, ondansetron, ondansetron, polyethylene glycol, zolpidem OBJECTIVE Vital Signs: BP 128/63 | Pulse 61 | Temp 98.7 F (37.1 C) (Oral) | Resp 16 | Ht 1.803 m (5' 11") | Wt 91.627 kg (202 lb) | BMI 28.19 kg/m2 | SpO2 95% Filed Vitals: 08/11/13 1953 08/11/13 2300 08/12/13 0345 08/12/13 0700 BP: 112/59 109/55 111/61 128/63 Pulse: 64 58 60 61 Temp: 98 F (36.7 C) 97.8 F (36.6 C) 98.1 F (36.7 C) 98.7 F (37.1 C) TempSrc: Oral Oral Oral Oral Resp: 18 18 18 16 Height: Weight: 91.627 kg (202 lb) SpO2: 95% 95% 96% 95% Intake/Output Summary (Last 24 hours) at 08/12/13 0847 Last data filed at 08/12/13 0345 Gross per 24 hour Intake 4621.35 ml Output 3075 ml Net 1546.35 ml General: Comfortable HEENT: No thrush. Neck: No JVD, Trachea midline. Psych: Alert and oriented x 3. Calm, cooperative. Cardiovascular: Regular rate and rhythm, no murmurs, no palpable thrills. Normal PMI. Respiratory: Clear to auscultation, no wheezing or crackles, breathing non labored. Chest e xpansion equal on both sides. No use of accessory muscles. Gastrointestinal: Soft, non-tender, non-distended, positive bowel sounds. No HSM. Musculoskeletal: No edema in bilateral lower extremities. No joint swelling. Skin: Warm and dry. Neurological: Higher functions grossly normal. Non focal. Motor and sensory grossly intact. Normal co-ordination. DATA Lab 08/12/13 0450 08/11/13 1549 08/11/13 0800 08/11/13 0513 08/10/13 1815 WBC 7.5 -- -- 7.0 11.1* HGB 10.6* 11.2* 11.3* -- -- HCT 31.8* 34.1* 34.7* -- -- PLT 171 -- -- 164 189 NEUTOPHILPCT 69.8 -- -- 65.6 -- MONOPCT 6.3 -- -- 9.2 -- Lab 08/12/13 0450 08/11/13 0513 08/10/13 1815 NA 141 139 141 K 4.6 4.1 4.8 CL 107 109 107 CO2 30 26 27 BUN 22 48* 46* CREATININE 0.95 0.92 0.91 CALCIUM -- -- -- PROT 5.4* 5.1* 5.8* BILITOT 0.7 0.6 0.5 ALKPHOS -- -- -- ALT 12 12 19 AST 15 11 11 GLUCOSE -- -- -- Phosphorus: Lab Results Component Value Date PHOS 2.4 08/11/2013 No components found with this basename: LABALBU:3 Lab 08/11/13 0513 MG 2.2 No results found for this basename: AMYLASE:3 in the last 168 hours No results found for this basename: PHART:3,PO2ART:3,JMJ4GJC:3,C5YMIEZT:3,BEART:[address] 168 hours Lab 08/10/13 1815 APTT 22* INR 1.1 PTT -- Lab 08/11/13 0513 TSH 0.37* T3FREE -- FREET4 -- No results found for this basename: CKTOTAL:3,TROPONINI:3,TROPONINT:3,CKMBINDEX:[address] 168 hours Results No Results found for the last 72 hours. End Esophogogastroduodenoscopy 08/10/2013 This is a non-reportable procedure without a radiologist report and is used for image storage only. Please review the GI encounter notes for details on the procedure. PROBLEM LIST Principal Problem: *GI bleed Active Problems: Hematemesis HTN (hypertension) COPD (chronic obstructive pulmonary disease) ASSESSMENT/ PLAN 1. Gastrointestinal bleed. Appreciate GI consult from Dr. Ball. Patient underwent EGD with treatment. Dicussed case with Dr. Deleon. Since no more bleeding today, will switch p rotonix drip to Omeprazole PO today. Plan to be watched for rebleeding for 72 hours post EG D. 2. Hypertension. Continue the patient's amlodipine and lisinopril . Hydralazine for hyperte nsion 3. Chronic obstructive pulmonary disease, appears to be compensated with patient not using any active inhalers.p.r.n. DuoNeb q.4h. p.r.n. shortness of breath or wheezing. 4. DVT prophylaxis. SCDs. The patient is not a candidate for chemoprophylaxis secondary to recent active bleed. 5. constipation: Started on docusate. Ordered labs for tomorrow. Code Status: Full Code Iban Medina MD 08/12/20138:47 AM Perry Hancock - 08/11/2013 7:14 PM PDTFormatting of this note might be different from the o riginal. Progress Notes by Perry Ball MD at 08/11/131913 Author: Perry Ball MD Service: Gastroenterology Author Type: Physician Filed: 08/12/131929 Date of Service: 08/11/131913 Status: Signed Hydraulic Chair Assembler: Perry Ball MD (Physician) Related Notes: Original Note by Perry Ball MD (Physician) filed at 08/11/13 1 926 [facility] Service: Gastroenterology Progress Note Hospital Day: LOS: 1 day Post-Op Day: 1 Day Post-Op SUBJECTIVE Patient Summary: Pt with bleeding esophageal ulcer Events Overnight: He is feeling better. Denies having hematemesis, nausea, vomiting, dizziness. Passed a large amount of black color stool once today. Scheduled Medications amLODIPine 5 mg Oral Daily [COMPLETED] bisacodyl 10 mg Rectal Once furosemide 40 mg Oral BID lisinopril 20 mg Oral Daily [COMPLETED] pantoprazole 80 mg Intravenous Once [DISCONTINUED] EPINEPHrine (1:10,000) [DISCONTINUED] EPINEPHrine (1:10,000) [DISCONTINUED] fentaNYL [DISCONTINUED] fentaNYL [DISCONTINUED] midazolam [DISCONTINUED] midazolam [DISCONTINUED] pantoprazole 80 mg Intravenous Once [DISCONTINUED] sodium chloride Continuous Infusions pantoprazole 8 mg/hr (08/11/13 1416) sodium chloride 75 mL/hr at 08/10/13 2215 PRN Medications acetaminophen, acetaminophen, ipratropium-albuterol, ondansetron, ondansetron, polyethylene glycol, zolpidem OBJECTIVE Vital Signs: BP 136/70 | Pulse 69 | Temp 97.8 F (36.6 C) (Oral) | Resp 18 | Ht 1.803 m (5' 11") | Wt 91.853 kg (202 lb 8 oz) | BMI 28.26 kg/m2 | SpO2 95% Intake/Output Summary (Last 24 hours) at 08/11/131913 Last data filed at 08/11/131911 Gross per 24 hour Intake 4841.35 ml Output 3575 ml Net 1266.35 ml Examination: GENERAL: Not in acute distress. HEENT: Head normocephalic. Pupils are normal. Neck: Supple. JVD not raised. No thyromegaly, no bruit. Chest: Normal breath sounds, Clear to auscultation. Heart: Normal S1 and S2, no murmurs Abdomen: Soft, non-distended, non-tender, normal bowel sounds. Extremities: No edema feet. No cyanosis or clubbing. DATA CBC: Lab Results Component Value Date WBC 7.0 08/11/2013 RBC 3.42* 08/11/2013 HGB 11.2* 08/11/2013 HCT 34.1* 08/11/2013 MCV 93.5 08/11/2013 MCH 30.7 08/11/2013 MCHC 32.9 08/11/2013 RDW 43.8 08/11/2013 PLT 164 08/11/2013 MPV 10.4 08/11/2013 DIFFTYPE AUTOMATED 08/11/2013 CMP: Lab Results Component Value Date NA 139 08/11/2013 K 4.1 08/11/2013 CL 109 08/11/2013 CO2 26 08/11/2013 ANIONGAP 8 08/11/2013 GLUF 90 08/11/2013 BUN 48* 08/11/2013 CREATININE 0.92 08/11/2013 BCR 52 08/11/2013 CA 7.8* 08/11/2013 PROT 5.1* 08/11/2013 ALB 3.3 08/11/2013 GLOB 1.8 08/11/2013 BILITOT 0.6 08/11/2013 ALP 27* 08/11/2013 AST 11 08/11/2013 ALT 12 08/11/2013 EGFR >60 08/11/2013 Results for WILLIAM HURST ( ) as of 08/11/2013 19:14 Ref. Range 08/11/2013 00:10 08/11/2013 05:13 08/11/2013 08:00 HGB Latest Range: 13.2-17.0 g/dL 10.3 (L) 10.5 (L) 11.3 (L) PROBLEM LIST Principal Problem: *GI bleed Active Problems: Hematemesis HTN (hypertension) COPD (chronic obstructive pulmonary disease) ASSESSMENT & PLAN The patient is a 78-year-old man with acute GI bleeding secondary to esophageal ulcer. Esophageal ulcer with bleeding. The patient underwent EGD with treatment. There is no evide nce active bleeding in the last 12 hours. He had 1 episode of black-colored stool. However, his vital signs were stable. Recommend to continue observation for rebleeding. Tomorrow, if the patient has no signs of rebleeding, recommend to change from IV Protonix to omeprazole 2 0 mg twice a day. If the patient has no active bleeding for 72 hours, the patient can be dis charged to home. Recommend the patient to have an office visit with me in 1 month, to repeat an EGD in 2 months. Code Status: Full Code PERRY BALL MD 08/11/2013 7:14 PM lexys Nolan MD - 08/11/2013 7:04 PM PDT Progress Notes by Alexys Nolan MD at 08/11/131903 Author: Alexys Nolan MD Service: (none) Author Type: Physician Filed: 08/11/131929 Date of Service: 08/11/131903 Status: Addendum Hydraulic Chair Assembler: Alexys Nolan MD (Physician) Related Notes: Original Note by Alexys Nolan MD (Physician) filed at 08/11/131909 [facility] Service: Hospitalist Progress Note Hospital Day: LOS: 1 day Post-Op Day: 1 Day Post-Op SUBJECTIVE Patient Summary: Esophagogastroduodenoscopy indications: hematemesis Findings: 1. Esophagus: There was an ulcer with non bleeding visible blood vessel at the distal esop hagus, just above the esophagogastric junction. The ulcer was injected with epinephrine 1:10 000 for 2 cc. The ulcer was treated with endoclips x 2. The rest of the esophageal mucosa wa s normal. The esophagogastric junction was at 40 [...] first and second part of the duodenum. Events Overnight: Patient has further bleeding reports feeling well overall denies marcial ving a bowel movement actually states he feels constipated and is requesting something to he lp with this. No chest pain nausea vomiting or dyspnea Scheduled Medications amLODIPine 5 mg Oral Daily [COMPLETED] bisacodyl 10 mg Rectal Once furosemide 40 mg Oral BID lisinopril 20 mg Oral Daily [COMPLETED] pantoprazole 80 mg Intravenous Once [DISCONTINUED] EPINEPHrine (1:10,000) [DISCONTINUED] EPINEPHrine (1:10,000) [DISCONTINUED] fentaNYL [DISCONTINUED] fentaNYL [DISCONTINUED] midazolam [DISCONTINUED] midazolam [DISCONTINUED] pantoprazole 80 mg Intravenous Once [DISCONTINUED] sodium chloride Continuous Infusions pantoprazole 8 mg/hr (08/11/13 1416) sodium chloride 75 mL/hr at 08/10/13 2215 PRN Medications acetaminophen, acetaminophen, ipratropium-albuterol, ondansetron, ondansetron, polyethylene glycol, zolpidem OBJECTIVE Vital Signs: BP 136/70 | Pulse 69 | Temp 97.8 F (36.6 C) (Oral) | Resp 18 | Ht 1.803 m (5' 11") | Wt 91.853 kg (202 lb 8 oz) | BMI 28.26 kg/m2 | SpO2 95% Temp: [97.6 F (36.4 C)-98.7 F (37.1 C)] 97.8 F (36.6 C) (08/12 1519) BP: (85-166)/(46-86) 136/70 mmHg (08/12 1519) Heart Rate: [63-80] 69 (08/12 1519) Resp: [12-23] 18 (08/12 1519) SpO2: [92 %-99 %] 95 % (08/12 1519) Height: [180.3 cm (5' 11")] 180.3 cm (5' 11") (08/10 2105) Weight: [91.853 kg (202 lb 8 oz)] 91.853 kg (202 lb 8 oz) (08/10 2105) BMI (Calculated): [28.3] 28.3 (08/10 2105) Patient Vitals for the past 24 hrs: BP Temp Temp src Pulse Resp SpO2 Height Weight 08/11/13 1520 136/70 mmHg 97.8 F (36.6 C) Oral 69 18 95 % - - 08/11/13 1215 119/59 mmHg 98.7 F (37.1 C) Oral 63 18 96 % - - 08/11/13 0723 166/77 mmHg 98.1 F (36.7 C) Oral 68 16 96 % - - 08/11/13 0406 132/72 mmHg 97.6 F (36.4 C) Oral 72 16 97 % - - 08/11/13 0258 99/57 mmHg - - - - - - - 08/11/13 0200 106/63 mmHg - - - - - - - 08/11/13 0100 106/62 mmHg - - - - - - - 08/10/13 2355 104/57 mmHg - - 66 - - - - 08/10/133 87/52 mmHg - - 70 - - - - 08/10/13 2247 133/86 mmHg - - 76 14 94 % - - 08/10/13 2217 130/58 mmHg 97.7 F (36.5 C) Oral 74 14 92 % - - 08/10/13 215 96/52 mmHg 98.4 F (36.9 C) - 80 14 98 % - - 08/10/132157 93/53 mmHg 98.3 F (36.8 C) - - 19 98 % - - 08/10/132149 85/46 mmHg - - 66 23 99 % - - 08/10/132144 91/49 mmHg - - 68 21 96 % - - 08/10/132139 124/56 mmHg - - 75 16 94 % - - 08/10/132105 137/68 mmHg 98.7 F (37.1 C) Oral 73 16 96 % 1.803 m (5' 11") 91.853 kg (202 lb 8 oz) 08/10/13 1919 108/65 mmHg - - 68 12 95 % - - Temp (24hrs), Av.2 F (36.8 C), Min:97.6 F (36.4 C), Max:98.7 F (37.1 C) Systolic (24hrs), Av mmHg, Min:85 mmHg, Max:166 mmHg Diastolic (24hrs), Av mmHg, Min:46 mmHg, Max:86 mmHg I&O Current Shift: I&O Yesterday: 08/10 699 - 08/11 0659 In: 720 [P.O.:200; I.V.:520] Out: 700 [Urine:700] I&O Last 3 Shifts: 08/10 699 - 08/11 1859 In: 4041.4 [P.O.:1770; I.V.:2271.4] Out: 3275 [Urine:3275] Intake/Output Summary (Last 24 hours) at 08/11/13 190 Last data filed at 08/11/13 1730 Gross per 24 hour Intake 4041.35 ml Output 3275 ml Net 766.35 ml I&O Detailed Table: Physical Exam Constitutional: He is oriented to person, place, and time. He appears well-developed and we ll-nourished. No distress. Neck: Normal range of motion. Neck supple. No JVD present. Cardiovascular: Normal rate and regular rhythm. Exam reveals no gallop. No murmur heard. Pulmonary/Chest: Effort normal and breath sounds normal. Abdominal: Soft. Bowel sounds are normal. He exhibits no distension. There is no tenderness . There is no rebound. Musculoskeletal: Normal range of motion. He exhibits no edema and no tenderness. Neurological: He is alert and oriented to person, place, and time. He has normal reflexes. No cranial nerve deficit. Coordination normal. Skin: Skin is warm and dry. He is not diaphoretic. Psychiatric: He has a normal mood and affect. His behavior is normal. DATA Lab 08/11/13 1549 08/11/13 0800 08/11/13 0513 08/10/13 1815 WBC -- -- 7.0 11.1* HGB 11.2* 11.3* 10.5* -- HCT 34.1* 34.7* 31.9* -- PLT -- -- 164 189 Lab 08/11/13 0513 08/10/13 1815 NA 139 141 K 4.1 4.8 CL 109 107 CO2 26 27 BUN 48* 46* CREATININE 0.92 0.91 CALCIUM -- -- PROT 5.1* 5.8* BILITOT 0.6 0.5 ALKPHOS -- -- ALT 12 19 AST 11 11 GLUCOSE -- -- Lab 08/11/13 0513 MG 2.2 Lab 08/11/13 0513 08/10/13 1815 NA 139 141 K 4.1 4.8 CL 109 107 CO2 26 27 BUN 48* 46* CREATININE 0.92 0.91 EGFR >60 >60 GLUCOSE -- -- CALCIUM -- -- PHOS 2.4 -- Lab 08/10/13 1815 INR 1.1 PROBLEM LIST Principal Problem: *GI bleed Active Problems: Hematemesis HTN (hypertension) COPD (chronic obstructive pulmonary disease) ASSESSMENT & PLAN 1. Gastrointestinal bleed. The patient had an episode of large hematemesis GI consult from Dr. Ball patient underwent EGD please see the summary at the top for the results blanca marie continues on proton pump inhibition and will be watched for rebleeding for 72 hours p ost EGD. Currently none has been seen. 2. Hypertension. Continue the patient's amlodipine and lisinopril . Hydralazine for hypert ension 3. Chronic obstructive pulmonary disease, appears to be compensated with patient not using any active inhalers.order p.r.n. DuoNeb q.4h. p.r.n. shortness of breath or wheezing. 4. DVT prophylaxis. SCDs. The patient is not a candidate for chemoprophylaxis secondary to recent active bleed. #5 colon possible constipation: Patient to get a suppository and if that does not work then an enema Disposition: Pending progress and whether or not he has a rebleeding the recommendation fr om the EGD was to watch for some DTRs for rebleeding Code Status: Full Code ALEXYS NOLAN MD 08/11/2013 onversion Transac tion, Provider Unknown - 08/11/2013 6:57 AM PDTFormatting of this note might be different f rom the original. Progress Notes by Milton Khoury RN at 08/11/13 0657 Author: Milton Khoury RN Service: (none) Author Type: Registered Nurse Filed: 08/11/13 0704 Date of Service: 08/11/13 0657 Status: Signed Hydraulic Chair Assembler: Milton Khoury RN (Registered Nurse) Pt has been sleeping well overnight. BP runs soft 80's-90's post EGD last night, SBP in the 130's now. Pt c/o occasional dizziness when getting up. Pt ate a cup of jello last night, tolerated well. Will continue to monitor. onver audrey Transaction, Provider Unknown - 08/10/2013 10:17 PM PDT Progress Notes by Lashawn Soria RPH at 08/10/132216 Author: Lashawn Soria RPH Service: (none) Author Type: Pharmacist Filed: 08/10/132216 Date of Service: 08/10/132216 Status: Signed Hydraulic Chair Assembler: Lashawn Soria RPH (Pharmacist) Clinical Pharmacy Note: Renal Monitoring William O Ross 78 y.o. male Height: 180.3 cm Weight: 91.9 kg CREATININE: 0.91 (08/10/131814) Estimated creatinine clearance - Cockcroft-Gault CrCl: 77.5 mL/min Pharmacy dosing for renal function per Dr. Sarabia. Currently, there are no medications needing to be adjusted. Pharmacy will continue to monit or for changes in medication orders and in renal function and adjust accordingly per P & T c ommittee. Lashawn [facility] 08/10/2013 10:17 PM onver audrey Transaction, Provider Unknown - 08/10/2013 9:31 PM PDT Case Management by MICHAEL Mc at 08/10/132130 Author: MICHAEL Mc Service: (none) Author Type: Brickmason Filed: 08/10/132133 Date of Service: 08/10/132130 Status: Signed Hydraulic Chair Assembler: MICHAEL Mc (Brickmason) 08/10/132129 Discharge Planning Evaluation Admitting Diagnosis GIB Readmission No Living Arrangements Spouse/significant other Support Systems Spouse/significant other;Children Type of Residence Private residence House type House-1 story Bathrooms on 1st Floor 1-Full Independent with ADL's Yes Independent with Mobility Yes Home Care Services No Caregiver after Discharge Yes Caregiver Name Camryn Hurst Relationship to Patient Spouse Phone number [phone] Mental Status Oriented Power of Job Molder Yes Power of Job Molder Name Camryn Hurst Power of Job Molder Resources Financial concerns No Transportation issues No Patient/Family concerns No Prescription Plan Yes Met with pt to discuss discharge planning. Pt is a 78 y.o., male who lives with his in a private residence in [place]. Pt is independent and very active. Pt reports he mows h is own grass and cares for his chickens. Pt is independent with ADLs, uses no DME, has never used HH. Pt is not on O2/cpap/bipap. He is not engaged in o/p medical services. Pt reports his will come to [facility] in the morning. Pt has no family in [facility]. His Dtr Radha Renteria lives near him in [place]. Pt denies d/c needs at this time. Patient's PCP is: DARYL MATHEWS Patient's insurance: [facility] Coverage concerns: n/a Medication coverage/concerns: n/a Community resources utilized / needed: n/a Assistance in transportation: available to transport home at d/c. Identification of any specific education / training: n/a Barriers to Discharge / Alternative housing needed: n/a Anticipated DCP: Home with spouse to transport. Odalys Mtz docume nted in this encounter H&P Notes Sudeep Pruitt MD - 08/10/2013 7:29 PM PDT H&P by Sudeep Sarabia MD at 08/10/131928 Author: Sudeep Sarabia MD Service: (none) Author Type: Physician Filed: 08/10/13 0747 Date of Service: 08/10/131928 Status: Signed Hydraulic Chair Assembler: Sudeep Sarabia MD (Physician) Related Notes: Original Note by Sudeep Sarabia MD (Physician) filed at 08/10/132024 [facility] Service: Hospitalist Admission History & Physical Date of Admission: 08/10/2013 Reason for Admission: GI bleed (hematemesis ) History Obtained From: Patient and ER MD CHIEF COMPLAINT: Hematemesis HISTORY OF PRESENT ILLNESS The patient is a 78 y.o. male with significant past medical history of hypertension and sta ble chronic obstructive pulmonary disease (not on oxygen) nor on any COPD related inhalers s uch as Advair or Spiriva). The patient got up this morning around 5:00 a.m. He proceeded to start his chores with his household animals, i.e., chickens. Subsequently, he prepared breakfast which consisted of co ffee and toast. After breakfast, he started to experience the need to have a bowel movement. He had one bowel movement and subsequently had to return for a second one, perhaps 30 minut es later. Instead of a second bowel movement, he became extremely dizzy and had a prolonged episode of sudden nausea and hematemesis. The amount of bright red blood that came out was s ubstantial. The patient stated that due to the fact that his garments were partially off his body, they became stained with blood and initially the hospital that was admitting him [facility] the patient might have had lower gastrointestinal bleed, however, the patient denies it. He states that the only blood he noted was contained in his emesis. The patient had no previous episode of gastrointestinal bleeding. He had no previous esopha gogastroduodenoscopy or colonoscopy in the past. He does recall intermittent symptoms of BIBIANA D, which he controls with p.r.n. doses of Prilosec and perhaps opmy-utr-lrgwnil Tums. He sta denise that his indigestion occurs when he eats food such as tomato sauce containing foods or s picy sauce. These symptoms have been ongoing for the past 10 years or so. There was no escal ation of these symptoms in the recent past. The patient was initially brought by emergency room to [facility]. Due to lack of beds, as reported by the patient, he was transferred to [facility] for further evaluation. His CMP from [facility] in [place] showed sodium 138, potass ium 4.7, chloride 105, CO2 27, BUN 40, creatinine 0.9, glucose 157, calcium 8.1, AST 12, ALT 13, alkaline phosphatase 36, total protein 5.4, albumin 3.5. His initial CBC showed WBC 9.9 , hemoglobin 12.3, hematocrit 36.8, and platelets of 194. His PT and INR were 14 and 1.1 res pectively. His lipase was 10. Lactic acid level was 17.8 (normal 4.5 to 9.8) at [place] lab. Troponin I was less than 0.1, which was negative. A 12-lead EKG at [facility] showed normal sinus rhythm with a rate of 66 beats per minute, incomplete right bundle bran ch block, no acute ST or T-wave changes to suggest ischemic process. The patient was evaluated at [facility] Emergency Room by . T he patient had no further episodes of hematemesis or lower gastrointestinal bleeding. His r epeat H and H were 11.8 and 35.6 respectively. CMP was fairly unchanged from the one obtaine d at [facility]. the patient is being admitted to our hospitalist service with GI consultat ion pending from Dr. Perry Ball, who is planing to perform upper endoscopy on thi s patient later on tonight or tomorrow morning. REVIEW OF SYSTEMS Review of Systems Constitutional: Negative for fever, chills, weight loss, malaise/fatigue and diaphoresis. HENT: Negative for hearing loss, ear pain, nosebleeds, congestion, sore throat, neck pain, tinnitus and ear discharge. Eyes: Negative for blurred vision, double vision, photophobia, pain, discharge and redness. Respiratory: Negative for cough, hemoptysis, sputum production, shortness of breath, wheezi ng and stridor. Cardiovascular: Negative for chest pain, palpitations, orthopnea, claudication, leg swellin g and PND. Gastrointestinal: Positive for heartburn, nausea, vomiting and abdominal pain. Negative for diarrhea, constipation, blood in stool and melena. Hematemesis and subsequent abdominal pain which was generalized and treated with singl e dose of PRN Morphine Sulfate IV....without further reoccurrence Genitourinary: Negative for dysuria, urgency, frequency, hematuria and flank pain. Musculoskeletal: Negative for myalgias, back pain, joint pain and falls. Skin: Negative for itching and rash. Neurological: Positive for dizziness. Negative for tingling, tremors, sensory change, speec h change, focal weakness, seizures, loss of consciousness, weakness and headaches. Prior to episode of hematemesis Endo/Heme/Allergies: Negative for polydipsia. Psychiatric/Behavioral: Negative for depression, suicidal ideas, hallucinations and substan ce abuse. Past Medical History Diagnosis Date Hypertension COPD (chronic obstructive pulmonary disease) Past Surgical History Procedure Date Leg surgery L leg fracture in 2003 Knee surgery R knee cap repair Ankle surgery L ankle crushed in accident Back surgery in 1980 Allergies Allergen Reactions Hydrochlorothiazide Hives Prior to Admission medications Medication Sig Start Date End Date Taking? Authorizing Provider amLODIPine (NORVASC) 5 MG tablet Take 5 mg by mouth daily. Yes Historical Provider aspirin 81 MG EC tablet Take 81 mg by mouth daily with breakfast. Yes Historical Provider furosemide (LASIX) 40 MG tablet Take 40 mg by mouth 2 (two) times daily. Yes Historical P rovider lisinopril (PRINIVIL,ZESTRIL) 20 MG tablet Take 20 mg by mouth daily. Yes Historical Prov ider Loratadine (CLARITIN) 10 MG CAPS Take by mouth. Yes Historical Provider No family history on file. History Social History Marital Status: Spouse Name: N/A Number of Children: N/A Years of Education: N/A Occupational History Not on file. Social History Main Topics Smoking status: Former Smoker Smokeless tobacco: Never Used Alcohol Use: 1.2 oz/week 2 Cans of beer per week Drug Use: No Sexually Active: Other Topics Concern Not on file Social History Narrative No narrative on file PHYSICAL EXAM Vital Signs: BP 108/65 | Pulse 68 | Temp 97.8 F (36.6 C) (Oral) | Resp 12 | Ht 1.803 m (5' 11") | Wt 92.534 kg (204 lb) | BMI 28.46 kg/m2 | SpO2 95% Physical Exam Constitutional: He is oriented to person, place, and time. He appears well-developed and we ll-nourished. No distress. HENT: Head: Atraumatic. Nose: Nose normal. Mouth/Throat: Oropharynx is clear and moist. No oropharyngeal exudate. Eyes: EOM are normal. Pupils are equal, round, and reactive to light. No scleral icterus. Neck: Normal range of motion. Neck supple. No JVD present. Cardiovascular: Normal rate and regular rhythm. Exam reveals no gallop. No murmur heard. Pulmonary/Chest: Effort normal and breath sounds normal. Abdominal: Soft. Bowel sounds are normal. He exhibits no distension. There is no tenderness . There is no rebound. Musculoskeletal: Normal range of motion. He exhibits no edema and no tenderness. Neurological: He is alert and oriented to person, place, and time. He has normal reflexes. No cranial nerve deficit. Coordination normal. Skin: Skin is warm and dry. He is not diaphoretic. Psychiatric: He has a normal mood and affect. His behavior is normal. DATA Admission on 08/10/2013 Component Date Value Range Status SODIUM 08/10/2013 141 135 - 143 mmol/L Final POTASSIUM 08/10/2013 4.8 3.5 - 4.9 mmol/L Final CHLORIDE 08/10/2013 107 99 - 109 mmol/L Final CO2 08/10/2013 27 23 - 32 mmol/L Final ANION GAP AGAP 08/10/2013 11 5 - 20 mmol/L Final GLUCOSE 08/10/2013 146* 65 - 99 mg/dL Final BUN 08/10/2013 46* 8 - 25 mg/dL Final CREATININE 08/10/2013 0.91 0.70 - 1.30 mg/dL Final BUN/CREAT 08/10/2013 50 Final CALCIUM 08/10/2013 7.4* 8.5 - 10.2 mg/dL Final TOTAL PROTEIN 08/10/2013 5.8* 6.3 - 8.2 g/dL Final Albumin 08/10/2013 3.2* 3.3 - 4.8 g/dL Final GLOBULIN 08/10/2013 2.6 1.3 - 4.9 g/dL Final A/G 08/10/2013 1.2 1.0 - 2.4 Final TBIL 08/10/2013 0.5 0.1 - 1.5 mg/dL Final ALK PHOS 08/10/2013 47 35 - 115 U/L Final AST 08/10/2013 11 10 - 45 U/L Final ALT 08/10/2013 19 10 - 65 U/L Final EGFR 08/10/2013 >60 >60 mL/min/1.73m2 Final LIPASE 08/10/2013 66* 73 - 393 U/L Final WBC 08/10/2013 11.1* 3.8 - 11.0 K/uL Final RBC 08/10/2013 3.85* 4.20 - 5.70 M/uL Final HGB 08/10/2013 11.8* 13.2 - 17.0 g/dL Final HCT 08/10/2013 35.6* 39.0 - 50.0 % Final MCV 08/10/2013 92.5 80.0 - 100.0 fl Final MCH 08/10/2013 30.5 27.0 - 34.0 pg Final MCHC 08/10/2013 33.0 32.0 - 35.5 g/dL Final RDW SD 08/10/2013 44.2 37 - 53 fl Final PLT 08/10/2013 189 150 - 400 K/uL Final MPV 08/10/2013 9.9 Final DIFF TYPE 08/10/2013 MANUAL Final Neutrophils Manual 08/10/2013 80 Final Bands 08/10/2013 6 Final Lymphocytes Manual 08/10/2013 9 Final Monocytes Manual 08/10/2013 5 Final Neutrophils Absolute 08/10/2013 8.8* 1.9 - 7.4 K/uL Final Bands Manual 08/10/2013 0.7* 0 - 0.2 K/uL Final Lymphocytes Absolute 08/10/2013 1.0 1.0 - 3.9 K/uL Final Monocytes Absolute 08/10/2013 0.6 0 - 0.8 K/uL Final Platelet Estimate 08/10/2013 ADEQUATE Final MORPHOLOGY 08/10/2013 RBC AND PLT MORPHOLOGY APPEAR NORMAL Final INR 08/10/2013 1.1 Final APTT 08/10/2013 22* 23 - 32 seconds Final ] Imaging No results found. ASSESSMENT & PLAN Patient Active Hospital Problem List: GI bleed (08/10/2013) Hematemesis (08/10/2013) HTN (hypertension) (08/10/2013) COPD (chronic obstructive pulmonary disease) (08/10/2013) A 78-year-old male who was transferred via EMS from [facility] in [place] with the followin. Gastrointestinal bleed. The patient had an episode of large hematemesis this morning wit hout further recurrence. Possible differential diagnosis includes peptic ulcer disease in vi ew of his symptoms of recurrent GERD, severe gastritis, Suomya-Magaña tear, AV malformation, or others. Continue initiated PPI therapy. GI consult from Dr. Ball for likely end oscopy later on today or tomorrow morning. 2. Hypertension. Continue the patient's amlodipine and lisinopril albeit they might be temp orarily held back secondary to n.p.o. status. Will provide patient with p.r.n. IV hydralazin e for p.r.n. systolic blood pressure above 160. MIRIAM inhibitor can be temporarily changed ove r to Vasotec 1.25 mg IV q.6h. 3. Chronic obstructive pulmonary disease, appears to be compensated with patient not using any active inhalers. I am going to order p.r.n. DuoNeb q.4h. p.r.n. shortness of breath or w heezing. 4. DVT prophylaxis. SCDs. The patient is not a candidate for chemoprophylaxis secondary to recent active bleed. The patient is being admitted to our hospitalist service with projected length of hospital stay between 2 to 3 days in view of his acute upper gastrointestinal bleed. He will be monit ored frequently with serial hemoglobin and hematocrit q.8h. He will be transfused with PRBCs if needed if his hemoglobin and hematocrit levels become much lower. He will require proton -pump inhibitor drip during first 24 hours of hospitalization and additional changes in roshan gement will depend on findings from planned EGD. In addition, the patient will likely need t o be observed in the hospital for at least 24 hours to ensure that his H and H level remain stable before discharge is considered. Disposition: Inpatient Code Status: Full code blue Primary Care Physician: No primary provider on file. Sudeep Sarabia MD 08/10/2013 7:29 PM documented in thi s encounter Consult Notes Perry Ball - 08/10/2013 7:22 PM PDT Consult* by Perry Ball MD at 08/10/131921 Author: Perry Ball MD Service: Gastroenterology Author Type: Physician Filed: 08/12/131929 Date of Service: 08/10/131921 Status: Signed Hydraulic Chair Assembler: Perry Ball MD (Physician) Related Notes: Original Note by Perry Ball MD (Physician) filed at 08/10/13 1 933 [facility] Service: Gastroenterology Initial Consult Note Moderate Sedation Presedation Assessment completed. ASA Classification: ASA 2: Patient with a mild systemic disease Mallampati Classification: III: Soft and hard palate and base of the ovula are visible Date of Admission: 08/10/2013 Reason for Consultation: Hematemesis Requesting Physician: Dr. White, Emergency Department History Obtained From: patient, chart review CHIEF COMPLAINT: Hematemesis HISTORY OF PRESENT ILLNESS The patient is a 78 y.o. male with significant past medical history of hypertension, chroni c obstructive pulmonary disease. The patient is not on any medication for his chronic obstr uctive pulmonary disease. The patient had been in his usual [facility] The patient had breakfast without having any problem. He later felt bad, which was nonsp ecific. At about 10:00 a.m., the patient had an urge to vomit. He went to the rest room. He felt dizzy, sweating, and then he vomited red blood clots once. After that, the patient was brought to [facility]. He had blood test done. The blood test done and CT scan of the abdomen and pelvis were done. He was then sent to [facility] for fur ther evaluation. At [facility], the patient had pain across the umbilicus. His pa in improved with morphine. The patient denied having heartburn, dysphagia or diarrhea. He h ad 1 bowel movement a day. His last bowel movement was 5:30 a.m. this morning. In the emerge ncy department, the patient was found to have black-colored stool. Stool occult blood was ne gative. I was called for GI consultation. MEDICATIONS 1. Aspirin 81 mg once a day for one year. 2. Loratadine. 3. Amlodipine. 4. Furosemide. 5. Lisinopril. He denied taking other nonsteroidal antiinflammatory drugs. REVIEW OF SYSTEMS Review of Systems Constitutional: Negative for fever, chills, appetite change and fatigue. HENT: Negative for ear pain, facial swelling and neck pain. Eyes: Negative for discharge and itching. Respiratory: Negative for cough and shortness of breath. Cardiovascular: Negative for chest pain and palpitations. Gastrointestinal: See H&P Genitourinary: Negative for dysuria, hematuria and difficulty urinating. Musculoskeletal: Negative for back pain and arthralgias. Skin: Negative for color change and rash. Neurological: Negative for dizziness, weakness and headaches. Hematological: Negative for adenopathy. Does not bruise/bleed easily. Psychiatric/Behavioral: Negative for confusion and agitation. Past Medical History Diagnosis Date Hypertension COPD (chronic obstructive pulmonary disease) Past Surgical History Procedure Date Leg surgery L leg fracture in 2003 Knee surgery R knee cap repair Ankle surgery L ankle crushed in accident Back surgery in 1980 Allergies Allergen Reactions Hydrochlorothiazide Hives (Not in a hospital admission) Scheduled Medications Continuous Infusions PRN Medications No family history on file. History Smoking status Former Smoker Smokeless tobacco Never Used History Alcohol Use 1.2 oz/week 2 Cans of beer per week PHYSICAL EXAM Vital Signs: BP 108/65 | Pulse 68 | Temp 97.8 F (36.6 C) (Oral) | Resp 12 | Ht 1.803 m (5' 11") | Wt 92.534 kg (204 lb) | BMI 28.46 kg/m2 | SpO2 95% Physical Exam Constitutional: He is oriented to person, place, and time. He appears well-developed and we ll-nourished. HENT: Head: Normocephalic and atraumatic. Nose: Nose normal. Mouth/Throat: Uvula is midline, oropharynx is clear and moist and mucous membranes are norm al. Eyes: Conjunctivae normal and lids are normal. Neck: Trachea normal. No JVD present. No thyromegaly present. Cardiovascular: Normal rate, regular rhythm, S1 normal and S2 normal. No murmur heard. Pulmonary/Chest: Effort normal and breath sounds normal. Abdominal: Soft. Normal appearance and bowel sounds are normal. There is no splenomegaly or hepatomegaly. There is no tenderness. Musculoskeletal: Normal range of motion. Right shoulder: He exhibits no deformity. Lymphadenopathy: He has no cervical adenopathy. He has no axillary adenopathy. Neurological: He is alert and oriented to person, place, and time. He has normal strength. Skin: Skin is warm, dry and intact. Psychiatric: He has a normal mood and affect. His speech is normal and behavior is normal. Thought content normal. DATA Blood tests show electrolytes normal. Glucose 157. BUN 40, creatinine 0.9. Liver tests norm al. Lipase 10, troponin negative. CBC showed hemoglobin of 12.3, hematocrit 36.8, MCV 91. IN R 1.1. CT scan of the abdomen and pelvis without contrast on August 11, 2003 was relatively normal. ASSESSMENT & PLAN A 78-year-old man who had been on aspirin, presented with one episode of hematemesis. At sd esent, the patient had stable hemodynamic status. His blood tests show elevated BUN and mild anemia with hemoglobin of 12.3. 1. Acute hematemesis. The patient is on aspirin and is at risk for having peptic ulcer dise ase. Other differential diagnoses include complications from acid reflux, esophageal varices , and less likely from gastric neoplasm. At present, the patient had stable hemodynamic stat us. Recommend the patient to be on intravenous proton-pump inhibitor. I also recommend the p atient to have an esophagogastroduodenoscopy. I have explained to the patient regarding the risks, benefits and alternatives. The risks include, but are not limited to, perforation, bl eeding, infection, and risk from sedation. The patient accepted the risks and will schedule the procedure for today. Agree with typing and cross for 2 units in case of active gastroint estinal bleeding. 2. Colon cancer screening. The patient was scheduled for colonoscopy as outpatient. Code Status: No Order Primary Care Physician: No primary provider on file. Thank you for allowing me to participate in the care of this patient. PERRY BALL MD 08/10/2013 documented in thi s encounter ED Notes Conversion Transaction, Provider Unknown - 08/10/2013 7:20 PM PDTFormatting of this note m ight be different from the original. ED Notes by Francisco Hall RN at 08/10/131919 Author: Francisco Hall RN Service: (none) Author Type: Registered Nurse Filed: 08/10/131919 Date of Service: 08/10/131919 Status: Signed Hydraulic Chair Assembler: Francisco Hall RN (Registered Nurse) GI doctor at bedside for eval. Francisco Hall RN 08/10/131919 onver audrey Transaction, Provider Unknown - 08/10/2013 6:19 PM PDT ED Notes by Francisco Hall RN at 08/10/131818 Author: Francisco Hall RN Service: (none) Author Type: Registered Nurse Filed: 08/10/131818 Date of Service: 08/10/131818 Status: Signed Hydraulic Chair Assembler: Francisco Hall RN (Registered Nurse) Patient given instructions on how to obtain a clean catch urine specimen. Patient verbaliz ed understanding. Specimen cup and towelettes provided. Patient to bathroom to attempt col lection. Francisco Hall RN 08/10/131818 onver audrey Transaction, Provider Unknown - 08/10/2013 5:58 PM PDT ED Notes by Francisco Hall RN at 08/10/131757 Author: Francisco Hall RN Service: (none) Author Type: Registered Nurse Filed: 08/10/131757 Date of Service: 08/10/131757 Status: Signed Hydraulic Chair Assembler: Francisco Hall RN (Registered Nurse) Dr. White at bedside. Francisco Hall RN 08/10/131757 Sudeep Edmond MD - 08/10/2013 5:55 PM PDT ED Provider Notes by Sudeep White MD at 08/10/131754 Author: Sudeep White MD Service: (none) Author Type: Physician Filed: 08/13/13 1410 Date of Service: 08/10/131754 Status: Signed Hydraulic Chair Assembler: Sudeep White MD (Physician) Procedure Orders: 1. POCT occult blood stool [[id number]] ordered by Christos Faith at 08/10/13 1802 [facility] Department of Emergency Medicine Provider Row Name 08/10/13 1614 08/10/13 1543 Pre-arrival Provider Pre-arrival Provider Another ED [facility] -- Provider Name SARI HernandezTroy Springer Pertinent History and Concerns pt was going to get on riding mower this morning, felt dizzy, went to have BM, vomited dark brown blood and clots. pt has hx of drinking a couple beers daily, allergic to HCTZ voimting blood once today, vitals normal, drinks moderate alcohol, aspirin daily Relevant Labs or Studies given 2L NS Hgb 12 Relevant Medications 4 mg zofran IVP, 80 mg protonix IVPB, 8 mg/hr protonix gtt, 4 mg morphine. protonix drip, Current Reported Vital Signs BP 105/70, HR 59, RR 16, O2 sat 95% RA, T 98.4 -- 08/10/2013 History of Present Illness Patient Identification William Hurst is a 78 y.o. male. Patient information was obtained from patient. History/Exam limitations: none. Patient presented to the Emergency Department by: Ambulance Chief Complaint Chief Complaint Patient presents with Emesis Pt reports vomiting blood at home 5:57 PM This is a 78 yo male who was transferred to ED from [facility] with a CC of hematemesis, for admission to the ED and for consult with GI specialist. The pt states that he woke up t his morning with nausea and dizziness. He sat on the toilet and then felt a worsened wave of nausea and vomited clotted blood. Pt denies feeling abd pain, hematochezia, melena, or darby tional medical complaints at this time. Pt's hx is significant for HTN and COPD. He is an ex-smoker 25 years ago. Past Medical History Diagnosis Date Hypertension COPD (chronic obstructive pulmonary disease) Hemorrhage of gastrointestinal tract, unspecified Past Surgical History Procedure Date Leg surgery L leg fracture in 2003 Knee surgery R knee cap repair Ankle surgery L ankle crushed in accident Back surgery in 1980 Unlisted procedure arthroscopy Esophagogastroduodenoscopy 08/10/2013 Procedure: ESOPHAGOGASTRODUODENOSCOPY; Surgeon: Perry Ball MD; Location: [facility]; Service: Gastroenterology; Laterality: N/A; Prior to Admission medications Medication Sig Start Date End Date Taking? Authorizing Provider amLODIPine (NORVASC) 5 MG tablet Take 5 mg by mouth daily. Yes Historical Provider aspirin 81 MG EC tablet Take 81 mg by mouth daily with breakfast. Yes Historical Provider furosemide (LASIX) 40 MG tablet Take 40 mg by mouth 2 (two) times daily. Yes Historical P rovider lisinopril (PRINIVIL,ZESTRIL) 20 MG tablet Take 20 mg by mouth daily. Yes Historical Prov ider Loratadine (CLARITIN) 10 MG CAPS Take by mouth. Yes Historical Provider Allergies Allergen Reactions Advair Diskus (Fluticasone-Salmeterol) Shortness of Breath "I can't breathe when I use it." Eucalyptus Oil-Lavender Oil-Menthol (Aromatic Inhalants) Shortness of Breath Hydrochlorothiazide Hives Symbicort (Budesonide-Formoterol Fumarate) Shortness of Breath "I can't breathe when I use it." History Social History Marital Status: Spouse Name: N/A Number of Children: N/A Years of Education: N/A Occupational History Not on file. Social History Main Topics Smoking status: Former Smoker Smokeless tobacco: Never Used Alcohol Use: 1.2 oz/week 2 Cans of beer per week Drug Use: No Sexually Active: Other Topics Concern Not on file Social History Narrative No narrative on file History reviewed. No pertinent family history. Review of Systems Constitutional: Negative for: fever or chills Cardiovascular: Negative for: chest pain Respiratory: Negative for: cough or shortness of breath Gastrointestinal: Positive for: hematemesis and nausea Negative for: abdominal pain, hematochezia, or melena Genitourinary: Negative for: dysuria or flank pain Musculoskeletal: Negative for: myalgias or arthralgias Skin: Negative for: rash or lesion Neuro and psych: Positive for: dizziness Negative for: fainting All other systems were reviewed and are subjectively reported as negative. Physical Exam BP 127/69 | Pulse 65 | Temp 97.8 F (36.6 C) (Oral) | Resp 18 | Ht 1.803 m (5' 11") | Wt 92.534 kg (204 lb) | BMI 28.46 kg/m2 | SpO2 96% Vitals: Normal Pulse Oximetry Interpretation: Normal General: Alert, no active distress, non-toxic appearing Eyes: Normal inspection, pupils equal and round, non-icteric ENT: Ears normal Nose normal Pharynx normal Neck: Normal inspection Supple Full ROM Cardiovascular: Normal rate and rhythm Respiratory: No respiratory distress or wheezing, lungs are clear Abdomen: Soft, non-tender, non-distended Rectal: Normal external appearance. Normal anal tone. Prostate normal. No masses. No gross blood. Back: Normal inspection, moves without difficulty Skin: Color normal Warm and dry No rash Extremities: RODRIGUES Neuro: No gross motor/sensory deficit Medical Decision Making and Emergency Department Course ED Department Course 5:57 PM Pt transferred from [facility] with upper GI bleed and hematemesis. I will order for repeat blood count, check liver enzymes, INR, aPTT, GI consult, and arrange for pt admi ssion. 6:02 PM Hemoccult performed. (See procedure for details). 6:08 PM Reviewed work-up and records from [facility]. They diagnosed the pt with having an Upper GI bleed, which is not supported by the hx or exam. CT of abd was normal. Lab work from [facility] was not significant. Mildly anemic. I will recheck blood count here and t hen arrange for pt's admission. 6:44 PM Discussed pt's case with Dr. Deleon (GI specialist), who takes report and will see e pt in the ED. Dr. Sarabia will accept the pt onto his service. Records Reviewed Nursing Notes Past Medical Records reviewed Past radiographic imaging reviewed Laboratory Evaluation Results Procedure Component Value Ref Range Date/Time Complete Metabolic Panel [[id number]] (Abnormal) Collected:08/10/131814 Order Status:Completed Updated:08/10/131853 Specimen Information:Blood SODIUM 141 135 - 143 mmol/L POTASSIUM 4.8 3.5 - 4.9 mmol/L CHLORIDE 107 99 - 109 mmol/L CO2 27 23 - 32 mmol/L ANION GAP AGAP 11 5 - 20 mmol/L GLUCOSE 146 (H) 65 - 99 mg/dL BUN 46 (H) 8 - 25 mg/dL CREATININE 0.91 0.70 - 1.30 mg/dL BUN/CREAT 50 CALCIUM 7.4 (L) 8.5 - 10.2 mg/dL TOTAL PROTEIN 5.8 (L) 6.3 - 8.2 g/dL Albumin 3.2 (L) 3.3 - 4.8 g/dL GLOBULIN 2.6 1.3 - 4.9 g/dL A/G 1.2 1.0 - 2.4 TBIL 0.5 0.1 - 1.5 mg/dL ALK PHOS 47 35 - 115 U/L AST 11 10 - 45 U/L ALT 19 10 - 65 U/L EGFR >60 >60 mL/min/1.73m2 Lipase [[id number]] (Abnormal) Collected:08/10/131814 Order Status:Completed Updated:08/10/131853 Specimen Information:Blood LIPASE 66 (L) 73 - 393 U/L CBC w Auto Diff [[id number]] (Abnormal) Collected:08/10/131814 Order Status:Completed Updated:08/10/131839 Specimen Information:Blood WBC 11.1 (H) 3.8 - 11.0 K/uL RBC 3.85 (L) 4.20 - 5.70 M/uL HGB 11.8 (L) 13.2 - 17.0 g/dL HCT 35.6 (L) 39.0 - 50.0 % MCV 92.5 80.0 - 100.0 fl MCH 30.5 27.0 - 34.0 pg MCHC 33.0 32.0 - 35.5 g/dL RDW SD 44.2 37 - 53 fl PLT 189 150 - 400 K/uL MPV 9.9 fl DIFF TYPE MANUAL Neutrophils Manual 80 % Bands 6 % Lymphocytes Manual 9 % Monocytes Manual 5 % Neutrophils Absolute 8.8 (H) 1.9 - 7.4 K/uL Bands Manual 0.7 (H) 0 - 0.2 K/uL Lymphocytes Absolute 1.0 1.0 - 3.9 K/uL Monocytes Absolute 0.6 0 - 0.8 K/uL Platelet Estimate ADEQUATE MORPHOLOGY RBC AND PLT MORPHOLOGY APPEAR NORMAL PT [[id number]] Collected:08/10/131814 Order Status:Completed Updated:08/10/131838 Specimen Information:Blood INR 1.1 PTT [[id number]] (Abnormal) Collected:08/10/131814 Order Status:Completed Updated:08/10/131838 Specimen Information:Blood APTT 22 (L) 23 - 32 seconds Radiology and EKG Evaluation Imaging Results None ED Diagnoses Final diagnoses GI bleed Associated Orders UP TOLERATED Lower abdominal pain Disposition: ED Disposition Admit/Observation Bed request special needs: None Diagnosis?: GI bleed, lower abd pain Follow-up Information Follow up With Details Comments Contact Info Daryl Mathews MD Schedule an appointment as soon as possible for a visit [address] [place] [address] Perry Ball MD In 2 weeks [address] [facility] [address] Discharge Medications: New Prescriptions OMEPRAZOLE (PRILOSEC) 20 MG CAPSULE Take 1 capsule by mouth 2 (two) times daily before meals. Additional Documentation Procedures Attending Note: Documentation assistance provided by Christos Faith (Scribe). Information recorded by the scribe has been reviewed and validated by me. Pratik diaz with its contents. MD Sudeep Bowen MD 08/13/13 1410 onversion Burgos saction, Provider Unknown - 08/10/2013 5:45 PM PDTFormatting of this note might be differen t from the original. ED Notes by Francisco Hall RN at 08/10/131744 Author: Francisco Hall RN Service: (none) Author Type: Registered Nurse Filed: 08/10/131745 Date of Service: 08/10/131744 Status: Addendum Hydraulic Chair Assembler: Francisco Hall RN (Registered Nurse) Related Notes: Original Note by Francisco Hall RN (Registered Nurse) filed at 08/10/13 1 746 EMS reports: Pt came in this afternoon for vomiting blood at his house. Upset stomach. Pt l aying in bed when EMS arrived. Blood covering pts shirt per EMS report. [facility] was "ful l" so they transferred him here. Francisco Hall RN 08/10/131745 Francisco Hall RN 08/10/131745 onver audrey Transaction, Provider Unknown - 08/10/2013 5:45 PM PDT ED Notes by Francisco Hall RN at 08/10/131744 Author: Francisco Hall RN Service: (none) Author Type: Registered Nurse Filed: 08/10/131744 Date of Service: 08/10/131744 Status: Signed Hydraulic Chair Assembler: Francisco Hall RN (Registered Nurse) Bed:12
Expected date:
Expected time:
Means of arrival:
Comments:
[facility] transfer onver audrey Transaction, Provider Unknown - 08/10/2013 5:30 PM PDT ED Notes by Rashmi Doe RN at 08/10/131729 Author: Rashmi Doe RN Service: (none) Author Type: Registered Nurse Filed: 08/10/131729 Date of Service: 08/10/131729 Status: Signed Hydraulic Chair Assembler: Rashmi Doe RN (Registered Nurse) Stable, no change en route Rashmi Doe RN 08/10/131729 docume nted in this encounter Miscellaneous Notes Op Note - Perry Ball - 08/10/2013 9:56 PM PDT Op Note by Perry Ball MD at 08/10/132155 Author: Perry Ball MD Service: Gastroenterology Author Type: Physician Filed: 08/10/132204 Date of Service: 08/10/132155 Status: Addendum Hydraulic Chair Assembler: Perry Ball MD (Physician) Related Notes: Original Note by Perry Ball MD (Physician) filed at 08/10/13 203 [facility] Service: Gastroenterology ENDOSCOPY SUITE PROCEDURE NOTE Esophagogastroduodenoscopy Indications: hematemesis Consent: The benefits, risks (bleeding, perforation, infection and reaction to medication) , and alternatives to the procedure were discussed and informed consent was obtained from th e patient. Preparation: EKG, pulse, pulse oximetry, and blood pressure were monitored throughout the procedure. Medications: Versed 4 mg IV, Fentanyl 50 mcg IV Procedure: The gastroscope was passed through the mouth under direct visualization and was advanced with ease to the 2nd portion of the duodenum. The scope was withdrawn and the muco sa was carefully examined. The views were good. There were no apparent complications. Retrof lexion was performed in the fundus. Findings: 1. Esophagus: There was an ulcer with non bleeding visible blood vessel at the distal esop hagus, just above the esophagogastric junction. The ulcer was injected with epinephrine 1:10 000 for 2 cc. The ulcer was treated with endoclips x 2. The rest of the esophageal mucosa wa s normal. The esophagogastric junction was at 40 [...] first and second part of the duodenum. Complications: None; patient tolerated the procedure well. Impression: An esophageal ulcer with NBVV Status post epinephrine injection Status post treated with endoclipx2 A 4-cm hiatal hernia Recommendations: 1. Continue Protonix IV at 8 mg/hr. 2. Typing and cross for 2 Units of PRBC at all time 3. Have two large IV bore 4. H&H q 8 hours 5. Observe for signs of re-bleeding for 72 hours. PERRY BALL MD 08/10/2013 documented in thi s encounter Plan of Treatment Not on filedocumented as of this encounter Procedures + +--------+ + + + | Procedure Name | Priori | Date/Time | Associated Diagnosis | Comments | | | ty | | | | + +--------+ + + + | EXTERNAL LAB: OCCULT | Routin | 08/13/2013 | | Results for this | | BLOOD, SCREENING | e | 2:10 PM | | procedure are in the | | | | PDT | | results section. | + +--------+ + + + | EXTERNAL LAB: CBC | Routin | 08/13/2013 | | Results for this | | | e | 5:00 AM | | procedure are in the | | | | PDT | | results section. | + +--------+ + + + | MAGNESIUM | Routin | 08/13/2013 | | Results for this | | | e | 5:00 AM | | procedure are in the | | | | PDT | | results section. | + +--------+ + + + | COMPREHENSIVE | Routin | 08/13/2013 | | Results for this | | METABOLIC PANEL | e | 5:00 AM | | procedure are in the | | | | PDT | | results section. | + +--------+ + + + | EXTERNAL LAB: CBC | Routin | 08/12/2013 | | Results for this | | | e | 4:50 AM | | procedure are in the | | | | PDT | | results section. | + +--------+ + + + | COMPREHENSIVE | Routin | 08/12/2013 | | Results for this | | METABOLIC PANEL | e | 4:50 AM | | procedure are in the | | | | PDT | | results section. | + +--------+ + + + | HEMOGLOBIN AND | Routin | 08/11/2013 | | Results for this | | HEMATOCRIT | e | 3:49 PM | | procedure are in the | | | | PDT | | results section. | + +--------+ + + + | HEMOGLOBIN AND | Routin | 08/11/2013 | | Results for this | | HEMATOCRIT | e | 8:00 AM | | procedure are in the | | | | PDT | | results section. | + +--------+ + + + | EXTERNAL LAB: CBC | Routin | 08/11/2013 | | Results for this | | | e | 5:13 AM | | procedure are in the | | | | PDT | | results section. | + +--------+ + + + | TSH | Routin | 08/11/2013 | | Results for this | | | e | 5:13 AM | | procedure are in the | | | | PDT | | results section. | + +--------+ + + + | PHOSPHORUS | Routin | 08/11/2013 | | Results for this | | | e | 5:13 AM | | procedure are in the | | | | PDT | | results section. | + +--------+ + + + | MAGNESIUM | Routin | 08/11/2013 | | Results for this | | | e | 5:13 AM | | procedure are in the | | | | PDT | | results section. | + +--------+ + + + | HEMOGLOBIN A1C | Routin | 08/11/2013 | | Results for this | | | e | 5:13 AM | | procedure are in the | | | | PDT | | results section. | + +--------+ + + + | COMPREHENSIVE | Routin | 08/11/2013 | | Results for this | | METABOLIC PANEL | e | 5:13 AM | | procedure are in the | | | | PDT | | results section. | + +--------+ + + + | HEMOGLOBIN AND | Routin | 08/11/2013 | | Results for this | | HEMATOCRIT | e | 12:10 AM | | procedure are in the | | | | PDT | | results section. | + +--------+ + + + | TYPE AND SCREEN | Routin | 08/10/2013 | | Results for this | | | e | 7:35 PM | | procedure are in the | | | | PDT | | results section. | + +--------+ + + + | EXTERNAL LAB: CBC | Routin | 08/10/2013 | | Results for this | | | e | 6:15 PM | | procedure are in the | | | | PDT | | results section. | + +--------+ + + + | PTT | Routin | 08/10/2013 | | Results for this | | | e | 6:15 PM | | procedure are in the | | | | PDT | | results section. | + +--------+ + + + | PROTIME INR | Routin | 08/10/2013 | | Results for this | | | e | 6:15 PM | | procedure are in the | | | | PDT | | results section. | + +--------+ + + + | LIPASE | Routin | 08/10/2013 | | Results for this | | | e | 6:15 PM | | procedure are in the | | | | PDT | | results section. | + +--------+ + + + | COMPREHENSIVE | Routin | 08/10/2013 | | Results for this | | METABOLIC PANEL | e | 6:15 PM | | procedure are in the | | | | PDT | | results section. | + +--------+ + + + documented in this encounter Results External Lab: Occult Blood, Screening (08/13/2013 2:10 PM PDT) + + | Specimen | + + | Stool specimen | | (specimen) | + + + + + | Narrative | Performed At | + + + | Sudeep White MD 08/13/2013 2:10 PM [facility] | EXTERNAL LAB | | [facility] Department of Emergency Medicine Provider Row | | | Name 08/10/13 1614 08/10/13 1543 Pre-arrival Provider | | | Pre-arrival Provider Another ED [facility] -- Provider Name | | | SARI Hernandez Pertinent History and Concerns pt was going | | | to get on riding mower this morning, felt dizzy, went to have BM, | | | vomited dark brown blood and clots. pt has hx of drinking a | | | couple beers daily, allergic to HCTZ voimting blood once today, | | | vitals normal, drinks moderate alcohol, aspirin daily Relevant | | | Labs or Studies given 2L NS Hgb 12 Relevant Medications 4 mg zofran | | | IVP, 80 mg protonix IVPB, 8 mg/hr protonix gtt, 4 mg morphine. | | | protonix drip, Current Reported Vital Signs BP 105/70, HR 59, RR | | | 16, O2 sat 95% RA, T 98.4 -- 08/10/2013 History of | | | Present Illness Patient Identification William Hurst is a 78 | | | y.o. male. Patient information was obtained from patient. | | | History/Exam limitations: none. Patient presented to the Emergency | | | Department by: Ambulance Chief Complaint Chief Complaint | | | Patient presents with | | | Emesis Pt reports vomiting blood at home 5:57 PM This | | | is a 78 yo male who was transferred to ED from [facility] with a | | | CC of hematemesis, for admission to the ED and for consult with GI | | | specialist. The pt states that he woke up this morning with nausea | | | and dizziness. He sat on the toilet and then felt a worsened wave of | | | nausea and vomited clotted blood. Pt denies feeling abd pain, | | | hematochezia, melena, or additional medical complaints at this time. | | | Pt's hx is significant for HTN and COPD. He is an ex-smoker 25 | | | years ago. Past Medical History Diagnosis Date | | | Hypertension | | | COPD (chronic obstructive pulmonary disease) | | | Hemorrhage of gastrointestinal tract, unspecified Past | | | Surgical History Procedure Date | | | Leg surgery L leg fracture in 2003 | | | Knee surgery R knee cap repair | | | Ankle surgery L ankle crushed in accident | | | Back surgery in 1980 | | | Unlisted procedure arthroscopy | | | Esophagogastroduodenoscopy 08/10/2013 Procedure: | | | ESOPHAGOGASTRODUODENOSCOPY; Surgeon: Perry Ball MD; | | | Location: [facility] ENDOSCOPY; Service: Gastroenterology; | | | Laterality: N/A; Prior to Admission medications | | | Medication Sig Start Date End Date Taking? Authorizing Provider | | | amLODIPine (NORVASC) 5 MG tablet Take 5 mg by mouth daily. Yes | | | Historical Provider aspirin 81 MG EC tablet Take 81 mg by mouth | | | daily with breakfast. Yes Historical Provider furosemide | | | (LASIX) 40 MG tablet Take 40 mg by mouth 2 (two) times daily. Yes | | | Historical Provider lisinopril (PRINIVIL,ZESTRIL) 20 MG tablet Take | | | 20 mg by mouth daily. Yes Historical Provider Loratadine | | | (CLARITIN) 10 MG CAPS Take by mouth. Yes Historical Provider | | | Allergies Allergen Reactions | | | Advair Diskus (Fluticasone-Salmeterol) Shortness of Breath "I | | | can't breathe when I use it." | | | Eucalyptus Oil-Lavender Oil-Menthol (Aromatic Inhalants) Shortness | | | of Breath | | | Hydrochlorothiazide Hives | | | Symbicort (Budesonide-Formoterol Fumarate) Shortness of Breath | | | "I can't breathe when I use it." History Social History | | | | | | Marital Status: Spouse Name: N/A Number of | | | Children: N/A | | | Years of Education: N/A Occupational History | | | Not on file. Social History Main Topics | | | Smoking status: Former Smoker | | | Smokeless tobacco: Never Used | | | Alcohol Use: 1.2 oz/week 2 Cans of beer per week | | | Drug Use: No | | | Sexually Active: Other Topics Concern | | | Not on file Social History Narrative | | | No narrative on file History reviewed. No pertinent family | | | history. Review of Systems Constitutional: Negative | | | for: fever or chills Cardiovascular: Negative for: chest pain | | | Respiratory: Negative for: cough or shortness of breath | | | Gastrointestinal: Positive for: hematemesis and nausea | | | Negative for: abdominal pain, hematochezia, or melena | | | Genitourinary: Negative for: dysuria or flank pain | | | Musculoskeletal: Negative for: myalgias or arthralgias Skin: | | | Negative for: rash or lesion Neuro and psych: Positive for: | | | dizziness Negative for: fainting All other systems were | | | reviewed and are subjectively reported as negative. Physical | | | Exam BP 127/69 - Pulse 65 - Temp 97.8 F (36.6 C) (Oral) - | | | Resp 18 - Ht 1.803 m (5' 11") - Wt 92.534 kg (204 lb) - BMI 28.46 | | | kg/m2 - SpO2 96% Vitals: Normal Pulse Oximetry Interpretation: | | | Normal General: Alert, no active distress, non-toxic appearing | | | Eyes: Normal inspection, pupils equal and round, non-icteric ENT: | | | Ears normal Nose normal Pharynx normal Neck: Normal | | | inspection Supple Full ROM Cardiovascular: Normal rate and | | | rhythm Respiratory: No respiratory distress or wheezing, lungs are | | | clear Abdomen: Soft, non-tender, non-distended Rectal: Normal | | | external appearance. Normal anal tone. Prostate normal. No masses. | | | No gross blood. Back: Normal inspection, moves without difficulty | | | Skin: Color normal Warm and dry No rash Extremities: RODRIGUES | | | Neuro: No gross motor/sensory deficit Medical Decision Making | | | and Emergency Department Course ED Department Course 5:57 PM | | | Pt transferred from [facility] with upper GI bleed and | | | hematemesis. I will order for repeat blood count, check liver | | | enzymes, INR, aPTT, GI consult, and arrange for pt admission. | | | 6:02 PM Hemoccult performed. (See procedure for details). 6:08 PM | | | Reviewed work-up and records from [facility]. They diagnosed the | | | pt with having an Upper GI bleed, which is not supported by the hx | | | or exam. CT of abd was normal. Lab work from [facility] was not | | | significant. Mildly anemic. I will recheck blood count here and then | | | arrange for pt's admission. 6:44 PM Discussed pt's case with | | | Pancho (GI specialist), who takes report and will see the pt in the | | | ED. Dr. Sarabia will accept the pt onto his service. Records | | | Reviewed Nursing Notes Past Medical Records reviewed Past | | | radiographic imaging reviewed Laboratory Evaluation Results | | | Procedure Component Value Ref Range Date/Time Complete Metabolic | | | Panel [[id number]] (Abnormal) Collected:08/10/131814 Order | | | Status:Completed Updated:08/10/131853 Specimen Information:Blood | | | SODIUM 141 135 - 143 mmol/L POTASSIUM 4.8 3.5 - 4.9 | | | mmol/L CHLORIDE 107 99 - 109 mmol/L CO2 27 23 - 32 | | | mmol/L ANION GAP AGAP 11 5 - 20 mmol/L GLUCOSE 146 (H) | | | 65 - 99 mg/dL BUN 46 (H) 8 - 25 mg/dL CREATININE 0.91 | | | 0.70 - 1.30 mg/dL BUN/CREAT 50 CALCIUM 7.4 (L) 8.5 - | | | 10.2 mg/dL TOTAL PROTEIN 5.8 (L) 6.3 - 8.2 g/dL Albumin | | | 3.2 (L) 3.3 - 4.8 g/dL GLOBULIN 2.6 1.3 - 4.9 g/dL A/G | | | 1.2 1.0 - 2.4 TBIL 0.5 0.1 - 1.5 mg/dL ALK PHOS 47 35 - | | | 115 U/L AST 11 10 - 45 U/L ALT 19 10 - 65 U/L | | | EGFR >60 >60 mL/min/1.73m2 Lipase [[id number]] (Abnormal) | | | Collected:08/10/131814 Order Status:Completed Updated:08/10/13 | | | 1854 Specimen Information:Blood LIPASE 66 (L) 73 - 393 U/L | | | CBC w Auto Diff [[id number]] (Abnormal) Collected:08/10/131814 | | | Order Status:Completed Updated:08/10/13 184 Specimen | | | Information:Blood WBC 11.1 (H) 3.8 - 11.0 K/uL RBC 3.85 | | | (L) 4.20 - 5.70 M/uL HGB 11.8 (L) 13.2 - 17.0 g/dL HCT | | | 35.6 (L) 39.0 - 50.0 % MCV 92.5 80.0 - 100.0 fl MCH 30.5 | | | 27.0 - 34.0 pg MCHC 33.0 32.0 - 35.5 g/dL RDW SD 44.2 | | | 37 - 53 fl PLT 189 150 - 400 K/uL MPV 9.9 fl DIFF | | | TYPE MANUAL Neutrophils Manual 80 % Bands 6 % | | | Lymphocytes Manual 9 % Monocytes Manual 5 % | | | Neutrophils Absolute 8.8 (H) 1.9 - 7.4 K/uL Bands Manual 0.7 | | | (H) 0 - 0.2 K/uL Lymphocytes Absolute 1.0 1.0 - 3.9 K/uL | | | Monocytes Absolute 0.6 0 - 0.8 K/uL Platelet Estimate | | | ADEQUATE MORPHOLOGY RBC AND PLT MORPHOLOGY APPEAR NORMAL | | | PT [[id number]] Collected:08/10/131814 Order Status:Completed | | | Updated:08/10/131838 Specimen Information:Blood INR 1.1 | | | PTT [[id number]] (Abnormal) Collected:08/10/131814 Order | | | Status:Completed Updated:08/10/131838 Specimen Information:Blood | | | APTT 22 (L) 23 - 32 seconds Radiology and EKG | | | Evaluation Imaging Results None ED Diagnoses | | | Final diagnoses GI bleed Associated Orders UP | | | TOLERATED Lower abdominal pain Disposition: ED | | | Disposition Admit/Observation Bed request special needs: None | | | Diagnosis?: GI bleed, lower abd pain Follow-up Information | | | Follow up With Details Comments Contact Info Daryl Mathews MD | | | Schedule an appointment as soon as possible for a visit [address] | | | [facility] [address] [place] [address] [facility] | | | MD Lanny In 2 weeks [address] [facility] [address] | | | [phone] Discharge Medications: New Prescriptions | | | OMEPRAZOLE (PRILOSEC) 20 MG CAPSULE Take 1 capsule by mouth 2 | | | (two) times daily before meals. Additional Documentation | | | Procedures Attending Note: Documentation assistance provided by | | | Christos Faith (Scribe). Information recorded by the scribe has been | | | reviewed and validated by me. I agree with its contents. | | | Sudeep White MD | | + + + + +---------+ + + | Performing | Address | City/State/Zipcode | Phone Number | | Organization | | | | + +---------+ + + | EXTERNAL LAB | | | | + +---------+ + + External Lab: CBC (08/13/2013 5:00 AM PDT) + + + + + + | Component | Value | Ref Range | Performed | Pathologist | | | | | At | Signature | + + + + + + | WBC | 8.3Comment: Testing | 3.8 - 11.0 K/uL | EXTERNAL | | | | performed at [facility], [address] | | LAB | | | | [address], | | | | | | [place] [address] | | | | + + + + + + | Non- | 3.58 (L)Comment: Testing | 4.20 - 5.70 | EXTERNAL | | | Red Blood | performed at [facility], [address] | M/uL | LAB | | | Cells | [address], | | | | | Counted | [place] [address] | | | | + + + + + + | Hemoglobin | 11.0 (L)Comment: Testing | 13.2 - 17.0 | EXTERNAL | | | | performed at [facility], [address] | g/dL | LAB | | | | [address], | | | | | | [place] [address] | | | | + + + + + + | Hematocrit, | 33.5 (L)Comment: Testing | 39.0 - 50.0 % | EXTERNAL | | | POC | performed at [facility], [address] | | LAB | | | | [address], | | | | | | [place] [address] | | | | + + + + + + | MCV | 93.6Comment: Testing | 80.0 - 100.0 fl | EXTERNAL | | | | performed at [facility], [address] | | LAB | | | | [address] [place], | | | | | | [place] [address] | | | | + + + + + + | MCH | 30.7Comment: Testing | 27.0 - 34.0 pg | EXTERNAL | | | | performed at [facility], [address] | | LAB | | | | [address], | | | | | | [place] [address] | | | | + + + + + + | MCHC | 32.8Comment: Testing | 32.0 - 35.5 | EXTERNAL | | | | performed at [facility], [address] | g/dL | LAB | | | | [address], | | | | | | [place] [address] | | | | + + + + + + | RDW-CV | 43.3Comment: Testing | 37 - 53 fl | EXTERNAL | | | | performed at [facility], [address] | | LAB | | | | [address], | | | | | | [place] [address] | | | | + + + + + + | Platelet | 186Comment: Testing | 150 - 400 K/uL | EXTERNAL | | | Count | performed at [facility], [address] | | LAB | | | Plasma | [address], | | | | | | [place] [address] | | | | + + + + + + | MPV | 10.1Comment: Testing | fl | EXTERNAL | | | | performed at [facility], [address] | | LAB | | | | [address], | | | | | | [place] [address] | | | | + + + + + + | Differentia | AUTOMATEDComment: | | EXTERNAL | | | l Type | Testing performed at | | LAB | | | | [facility], [address] | | | | | | [place] | | | | | | [address] | | | | + + + + + + | % Segmented | 66.0Comment: Testing | % | EXTERNAL | | | | performed at [facility], [address] | | LAB | | | Neutrophils | [address], | | | | | | [place] [address] | | | | + + + + + + | % | 20.0Comment: Testing | % | EXTERNAL | | | Lymphocytes | performed at [facility], [address] | | LAB | | | | [address], | | | | | | [place] [address] | | | | + + + + + + | % Monocytes | 7.3Comment: Testing | % | EXTERNAL | | | | performed at [facility], [address] | | LAB | | | | [address], | | | | | | [place] [address] | | | | + + + + + + | % | 6.3Comment: Testing | % | EXTERNAL | | | Eosinophils | performed at [facility], [address] | | LAB | | | | [address], | | | | | | [place] [address] | | | | + + + + + + | % Basophils | 0.4Comment: Testing | % | EXTERNAL | | | | performed at [facility], [address] | | LAB | | | | [address], | | | | | | [place] [address] | | | | + + + + + + | Absolute | 5.5Comment: Testing | 1.9 - 7.4 K/uL | EXTERNAL | | | Segmented | performed at [facility], [address] | | LAB | | | Neutrophils | [address], | | | | | | [place] [address] | | | | + + + + + + | Absolute | 1.7Comment: Testing | 1.0 - 3.9 K/uL | EXTERNAL | | | Lymphocytes | performed at [facility], [address] | | LAB | | | | [address], | | | | | | [place] [address] | | | | + + + + + + | Absolute | 0.6Comment: Testing | 0 - 0.8 K/uL | EXTERNAL | | | Monocytes | performed at [facility], [address] | | LAB | | | | [address], | | | | | | [place] [address] | | | | + + + + + + | Absolute | 0.5Comment: Testing | 0 - 0.5 K/uL | EXTERNAL | | | Eosinophils | performed at [facility], [address] | | LAB | | | | [address], | | | | | | [place] [address] | | | | + + + + + + | Absolute | 0.0Comment: Testing | 0 - 0.1 K/uL | EXTERNAL | | | Basophils | performed at [facility], [address] | | LAB | | | | [address], | | | | | | [place] [address] | | | | + + + + + + + + | Specimen | + + | Blood specimen | | (specimen) | + + + +---------+ + + | Performing | Address | City/State/Zipcode | Phone Number | | Organization | | | | + +---------+ + + | EXTERNAL LAB | | | | + +---------+ + + Magnesium (08/13/2013 5:00 AM PDT) + + + + + + | Component | Value | Ref Range | Performed | Pathologist | | | | | At | Signature | + + + + + + | Magnesium | 2.1Comment: Testing | 1.7 - 2.4 mg/dL | EXTERNAL | | | | performed at [facility], [address] | | LAB | | | | [address], | | | | | | [place] [address] | | | | + + + + + + + + | Specimen | + + | Blood specimen | | (specimen) | + + + +---------+ + + | Performing | Address | City/State/Zipcode | Phone Number | | Organization | | | | + +---------+ + + | EXTERNAL LAB | | | | + +---------+ + + Comprehensive Metabolic Panel (08/13/2013 5:00 AM PDT) + + + + + + | Component | Value | Ref Range | Performed | Pathologist | | | | | At | Signature | + + + + + + | Na | 138Comment: Testing | 135 - 143 | EXTERNAL | | | | performed at [facility], [address] | mmol/L | LAB | | | | [address], | | | | | | [place] [address] | | | | + + + + + + | K | 3.9Comment: Testing | 3.5 - 4.9 | EXTERNAL | | | | performed at [facility], [address] | mmol/L | LAB | | | | [address], | | | | | | [place] [address] | | | | + + + + + + | Cl | 103Comment: Testing | 99 - 109 mmol/L | EXTERNAL | | | | performed at [facility], [address] | | LAB | | | | [address], | | | | | | [place] [address] | | | | + + + + + + | CO2 | 28Comment: Testing | 23 - 32 mmol/L | EXTERNAL | | | | performed at [facility], [address] | | LAB | | | | [address], | | | | | | [place] [address] | | | | + + + + + + | Anion Gap | 11Comment: Testing | 5 - 20 mmol/L | EXTERNAL | | | | performed at [facility], [address] | | LAB | | | | [address], | | | | | | [place] [address] | | | | + + + + + + | Glucose, | 114 (H)Comment: Testing | 65 - 99 mg/dL | EXTERNAL | | | Fasting | performed at [facility], [address] | | LAB | | | | [address], | | | | | | [place] [address] | | | | + + + + + + | BUN | 14Comment: Testing | 8 - 25 mg/dL | EXTERNAL | | | | performed at [facility], [address] | | LAB | | | | [address], | | | | | | [place] [address] | | | | + + + + + + | Creatinine | 0.89Comment: Testing | 0.70 - 1.30 | EXTERNAL | | | | performed at [facility], [address] | mg/dL | LAB | | | | [address], | | | | | | [place] [address] | | | | + + + + + + | BUN/Creatin | 16Comment: Testing | | EXTERNAL | | | ine Ratio | performed at [facility], [address] | | LAB | | | | [address], | | | | | | [place] [address] | | | | + + + + + + | Calcium | 8.6Comment: Testing | 8.5 - 10.2 | EXTERNAL | | | | performed at [facility], [address] | mg/dL | LAB | | | | [address], | | | | | | [place] [address] | | | | + + + + + + | Protein, | 5.7 (L)Comment: Testing | 6.3 - 8.2 g/dL | EXTERNAL | | | Total | performed at [facility], [address] | | LAB | | | | [address], | | | | | | [place] [address] | | | | + + + + + + | Albumin | 3.7Comment: Testing | 3.3 - 4.8 g/dL | EXTERNAL | | | | performed at [facility], [address] | | LAB | | | | [address], | | | | | | [place] [address] | | | | + + + + + + | Globulin | 2.0Comment: Testing | 1.3 - 4.9 g/dL | EXTERNAL | | | | performed at [facility], [address] | | LAB | | | | [address], | | | | | | [place] [address] | | | | + + + + + + | A/G Ratio | 1.9Comment: Testing | 1.0 - 2.4 | EXTERNAL | | | | performed at [facility], [address] | | LAB | | | | [address], | | | | | | [place] [address] | | | | + + + + + + | Bilirubin | 0.8Comment: Testing | 0.1 - 1.5 mg/dL | EXTERNAL | | | Total | performed at [facility], [address] | | LAB | | | | [address], | | | | | | [place] [address] | | | | + + + + + + | ALP, | 36Comment: Testing | 35 - 115 U/L | EXTERNAL | | | External | performed at [facility], [address] | | LAB | | | | [address], | | | | | | [place] [address] | | | | + + + + + + | AST | 12Comment: Testing | 10 - 45 U/L | EXTERNAL | | | | performed at [facility], [address] | | LAB | | | | [address], | | | | | | [place] [address] | | | | + + + + + + | ALT | 12Comment: Testing | 10 - 65 U/L | EXTERNAL | | | | performed at [facility], [address] | | LAB | | | | [address], | | | | | | [place] [address] | | | | + + + + + + | Estimated | >60Comment: GFR <60: | mL/min/1.73m2 | EXTERNAL | | | GFR | CHRONIC KIDNEY DISEASE, | | LAB | | | | IF FOUND OVER A 3 MONTH | | | | | | PERIOD.GFR <15: KIDNEY | | | | | | FAILURE.FOR | | | | | | AMERICANS, MULTIPLY THE | | | | | | CALCULATED GFR BY | | | | | | 1.210.Testing performed | | | | | | at [facility], [address] | | | | | | [address], | | | | | | [place] [address] | | | | + + + + + + + + | Specimen | + + | Blood specimen | | (specimen) | + + + +---------+ + + | Performing | Address | City/State/Zipcode | Phone Number | | Organization | | | | + +---------+ + + | EXTERNAL LAB | | | | + +---------+ + + External Lab: CBC (08/12/2013 4:50 AM PDT) + + + + + + | Component | Value | Ref Range | Performed | Pathologist | | | | | At | Signature | + + + + + + | WBC | 7.5Comment: Testing | 3.8 - 11.0 K/uL | EXTERNAL | | | | performed at [facility], [address] | | LAB | | | | [address], | | | | | | [place] [address] | | | | + + + + + + | Non- | 3.42 (L)Comment: Testing | 4.20 - 5.70 | EXTERNAL | | | Red Blood | performed at [facility], [address] | M/uL | LAB | | | Cells | [address], | | | | | Counted | [place] [address] | | | | + + + + + + | Hemoglobin | 10.6 (L)Comment: Testing | 13.2 - 17.0 | EXTERNAL | | | | performed at [facility], [address] | g/dL | LAB | | | | [address], | | | | | | [place] [address] | | | | + + + + + + | Hematocrit, | 31.8 (L)Comment: Testing | 39.0 - 50.0 % | EXTERNAL | | | POC | performed at [facility], [address] | | LAB | | | | [address], | | | | | | [place] [address] | | | | + + + + + + | MCV | 93.0Comment: Testing | 80.0 - 100.0 fl | EXTERNAL | | | | performed at [facility], [address] | | LAB | | | | [address], | | | | | | [place] [address] | | | | + + + + + + | MCH | 31.0Comment: Testing | 27.0 - 34.0 pg | EXTERNAL | | | | performed at [facility], [address] | | LAB | | | | [address], | | | | | | [place] [address] | | | | + + + + + + | MCHC | 33.3Comment: Testing | 32.0 - 35.5 | EXTERNAL | | | | performed at [facility], [address] | g/dL | LAB | | | | [address], | | | | | | [place] [address] | | | | + + + + + + | RDW-CV | 44.2Comment: Testing | 37 - 53 fl | EXTERNAL | | | | performed at [facility], [address] | | LAB | | | | [address], | | | | | | [place] [address] | | | | + + + + + + | Platelet | 171Comment: Testing | 150 - 400 K/uL | EXTERNAL | | | Count | performed at [facility], [address] | | LAB | | | Plasma | [address], | | | | | | [place] [address] | | | | + + + + + + | MPV | 9.9Comment: Testing | fl | EXTERNAL | | | | performed at [facility], [address] | | LAB | | | | [address], | | | | | | [place] [address] | | | | + + + + + + | Differentia | AUTOMATEDComment: | | EXTERNAL | | | l Type | Testing performed at | | LAB | | | | [facility], [address] | | | | | | [place] | | | | | | [address] | | | | + + + + + + | % Segmented | 69.8Comment: Testing | % | EXTERNAL | | | | performed at [facility], [address] | | LAB | | | Neutrophils | [address], | | | | | | [place] [address] | | | | + + + + + + | % | 19.3Comment: Testing | % | EXTERNAL | | | Lymphocytes | performed at [facility], [address] | | LAB | | | | [address], | | | | | | [place] [address] | | | | + + + + + + | % Monocytes | 6.3Comment: Testing | % | EXTERNAL | | | | performed at [facility], [address] | | LAB | | | | [address], | | | | | | [place] [address] | | | | + + + + + + | % | 4.1Comment: Testing | % | EXTERNAL | | | Eosinophils | performed at [facility], [address] | | LAB | | | | [address], | | | | | | [place] [address] | | | | + + + + + + | % Basophils | 0.5Comment: Testing | % | EXTERNAL | | | | performed at [facility], [address] | | LAB | | | | [address], | | | | | | [place] [address] | | | | + + + + + + | Absolute | 5.2Comment: Testing | 1.9 - 7.4 K/uL | EXTERNAL | | | Segmented | performed at [facility], [address] | | LAB | | | Neutrophils | [address], | | | | | | [place] [address] | | | | + + + + + + | Absolute | 1.4Comment: Testing | 1.0 - 3.9 K/uL | EXTERNAL | | | Lymphocytes | performed at [facility], [address] | | LAB | | | | [address], | | | | | | [place] [address] | | | | + + + + + + | Absolute | 0.5Comment: Testing | 0 - 0.8 K/uL | EXTERNAL | | | Monocytes | performed at [facility], [address] | | LAB | | | | [address], | | | | | | [place] [address] | | | | + + + + + + | Absolute | 0.3Comment: Testing | 0 - 0.5 K/uL | EXTERNAL | | | Eosinophils | performed at [facility], [address] | | LAB | | | | [address], | | | | | | [place] [address] | | | | + + + + + + | Absolute | 0.0Comment: Testing | 0 - 0.1 K/uL | EXTERNAL | | | Basophils | performed at [facility], [address] | | LAB | | | | [address], | | | | | | [place] [address] | | | | + + + + + + + + | Specimen | + + | Blood specimen | | (specimen) | + + + +---------+ + + | Performing | Address | City/State/Zipcode | Phone Number | | Organization | | | | + +---------+ + + | EXTERNAL LAB | | | | + +---------+ + + Comprehensive Metabolic Panel (08/12/2013 4:50 AM PDT) + + + + + + | Component | Value | Ref Range | Performed | Pathologist | | | | | At | Signature | + + + + + + | Na | 141Comment: Testing | 135 - 143 | EXTERNAL | | | | performed at [facility], [address] | mmol/L | LAB | | | | [address], | | | | | | [place] [address] | | | | + + + + + + | K | 4.6Comment: Testing | 3.5 - 4.9 | EXTERNAL | | | | performed at [facility], [address] | mmol/L | LAB | | | | [address], | | | | | | [place] [address] | | | | + + + + + + | Cl | 107Comment: Testing | 99 - 109 mmol/L | EXTERNAL | | | | performed at [facility], [address] | | LAB | | | | [address], | | | | | | [place] [address] | | | | + + + + + + | CO2 | 30Comment: Testing | 23 - 32 mmol/L | EXTERNAL | | | | performed at [facility], [address] | | LAB | | | | [address], | | | | | | [place] [address] | | | | + + + + + + | Anion Gap | 9Comment: Testing | 5 - 20 mmol/L | EXTERNAL | | | | performed at [facility], [address] | | LAB | | | | [address], | | | | | | [place] [address] | | | | + + + + + + | Glucose, | 104 (H)Comment: Testing | 65 - 99 mg/dL | EXTERNAL | | | Fasting | performed at [facility], [address] | | LAB | | | | [address], | | | | | | [place] [address] | | | | + + + + + + | BUN | 22Comment: Testing | 8 - 25 mg/dL | EXTERNAL | | | | performed at [facility], [address] | | LAB | | | | [address], | | | | | | [place] [address] | | | | + + + + + + | Creatinine | 0.95Comment: Testing | 0.70 - 1.30 | EXTERNAL | | | | performed at [facility], [address] | mg/dL | LAB | | | | [address], | | | | | | [place] [address] | | | | + + + + + + | BUN/Creatin | 23Comment: Testing | | EXTERNAL | | | ine Ratio | performed at [facility], [address] | | LAB | | | | [address], | | | | | | [place] [address] | | | | + + + + + + | Calcium | 8.3 (L)Comment: Testing | 8.5 - 10.2 | EXTERNAL | | | | performed at [facility], [address] | mg/dL | LAB | | | | [address], | | | | | | [place] [address] | | | | + + + + + + | Protein, | 5.4 (L)Comment: Testing | 6.3 - 8.2 g/dL | EXTERNAL | | | Total | performed at [facility], [address] | | LAB | | | | [address], | | | | | | [place] [address] | | | | + + + + + + | Albumin | 3.5Comment: Testing | 3.3 - 4.8 g/dL | EXTERNAL | | | | performed at [facility], [address] | | LAB | | | | [address], | | | | | | [place] [address] | | | | + + + + + + | Globulin | 1.9Comment: Testing | 1.3 - 4.9 g/dL | EXTERNAL | | | | performed at [facility], [address] | | LAB | | | | [address], | | | | | | [place] [address] | | | | + + + + + + | A/G Ratio | 1.8Comment: Testing | 1.0 - 2.4 | EXTERNAL | | | | performed at [facility], [address] | | LAB | | | | [address], | | | | | | [place] [address] | | | | + + + + + + | Bilirubin | 0.7Comment: Testing | 0.1 - 1.5 mg/dL | EXTERNAL | | | Total | performed at [facility], [address] | | LAB | | | | [address], | | | | | | [place] [address] | | | | + + + + + + | ALP, | 32 (L)Comment: Testing | 35 - 115 U/L | EXTERNAL | | | External | performed at [facility], [address] | | LAB | | | | [address], | | | | | | [place] [address] | | | | + + + + + + | AST | 15Comment: Testing | 10 - 45 U/L | EXTERNAL | | | | performed at [facility], [address] | | LAB | | | | [address], | | | | | | [place] [address] | | | | + + + + + + | ALT | 12Comment: Testing | 10 - 65 U/L | EXTERNAL | | | | performed at [facility], [address] | | LAB | | | | [place], | | | | | | [place] [address] | | | | + + + + + + | Estimated | >60Comment: GFR <60: | mL/min/1.73m2 | EXTERNAL | | | GFR | CHRONIC KIDNEY DISEASE, | | LAB | | | | IF FOUND OVER A 3 MONTH | | | | | | PERIOD.GFR <15: KIDNEY | | | | | | FAILURE.FOR | | | | | | AMERICANS, MULTIPLY THE | | | | | | CALCULATED GFR BY | | | | | | 1.210.Testing performed | | | | | | at [facility], [address] | | | | | | [address], | | | | | | [place] [address] | | | | + + + + + + + + | Specimen | + + | Blood specimen | | (specimen) | + + + +---------+ + + | Performing | Address | City/State/Zipcode | Phone Number | | Organization | | | | + +---------+ + + | EXTERNAL LAB | | | | + +---------+ + + Hemoglobin and Hematocrit (08/11/2013 3:49 PM PDT) + + + + + + | Component | Value | Ref Range | Performed | Pathologist | | | | | At | Signature | + + + + + + | Hemoglobin | 11.2 (L)Comment: Testing | 13.2 - 17.0 | EXTERNAL | | | | performed at [facility] | g/dL | LAB | | | | [address] [place] | | | | | | [address] | | | | + + + + + + | Hematocrit, | 34.1 (L)Comment: Testing | 39.0 - 50.0 % | EXTERNAL | | | POC | performed at [facility];[address] | | LAB | | | | [address];[place], [place] | | | | | | [address] | | | | + + + + + + + + | Specimen | + + | | + + + +---------+ + + | Performing | Address | City/State/Zipcode | Phone Number | | Organization | | | | + +---------+ + + | EXTERNAL LAB | | | | + +---------+ + + Hemoglobin and Hematocrit (08/11/2013 8:00 AM PDT) + + + + + + | Component | Value | Ref Range | Performed | Pathologist | | | | | At | Signature | + + + + + + | Hemoglobin | 11.3 (L)Comment: Testing | 13.2 - 17.0 | EXTERNAL | | | | performed at [facility];[address] | g/dL | LAB | | | | [address];[place] | | | | | | [address] | | | | + + + + + + | Hematocrit, | 34.7 (L)Comment: Testing | 39.0 - 50.0 % | EXTERNAL | | | POC | performed at [facility];[address] | | LAB | | | | [address];[place] | | | | | | [address] | | | | + + + + + + + + | Specimen | + + | | + + + +---------+ + + | Performing | Address | City/State/Zipcode | Phone Number | | Organization | | | | + +---------+ + + | EXTERNAL LAB | | | | + +---------+ + + External Lab: CBC (08/11/2013 5:13 AM PDT) + + + + + + | Component | Value | Ref Range | Performed | Pathologist | | | | | At | Signature | + + + + + + | WBC | 7.0Comment: Testing | 3.8 - 11.0 K/uL | EXTERNAL | | | | performed at [facility], [address] | | LAB | | | | [address], | | | | | | [place] [address] | | | | + + + + + + | Non- | 3.42 (L)Comment: Testing | 4.20 - 5.70 | EXTERNAL | | | Red Blood | performed at [facility], [address] | M/uL | LAB | | | Cells | [address], | | | | | Counted | [place] [address] | | | | + + + + + + | Hemoglobin | 10.5 (L)Comment: Testing | 13.2 - 17.0 | EXTERNAL | | | | performed at [facility], [address] | g/dL | LAB | | | | [address], | | | | | | [place] [address] | | | | + + + + + + | Hematocrit, | 31.9 (L)Comment: Testing | 39.0 - 50.0 % | EXTERNAL | | | POC | performed at [facility], [address] | | LAB | | | | [address], | | | | | | [place] [address] | | | | + + + + + + | MCV | 93.5Comment: Testing | 80.0 - 100.0 fl | EXTERNAL | | | | performed at [facility], [address] | | LAB | | | | [address], | | | | | | [place] [address] | | | | + + + + + + | MCH | 30.7Comment: Testing | 27.0 - 34.0 pg | EXTERNAL | | | | performed at [facility], [address] | | LAB | | | | [address], | | | | | | [place] [address] | | | | + + + + + + | MCHC | 32.9Comment: Testing | 32.0 - 35.5 | EXTERNAL | | | | performed at [facility], [address] | g/dL | LAB | | | | [address], | | | | | | [place] [address] | | | | + + + + + + | RDW-CV | 43.8Comment: Testing | 37 - 53 fl | EXTERNAL | | | | performed at [facility], [address] | | LAB | | | | [address], | | | | | | [place] [address] | | | | + + + + + + | Platelet | 164Comment: Testing | 150 - 400 K/uL | EXTERNAL | | | Count | performed at [facility], [address] | | LAB | | | Plasma | [address], | | | | | | [place] [address] | | | | + + + + + + | MPV | 10.4Comment: Testing | fl | EXTERNAL | | | | performed at [facility], [address] | | LAB | | | | [address], | | | | | | [place] [address] | | | | + + + + + + | Differentia | AUTOMATEDComment: | | EXTERNAL | | | l Type | Testing performed at | | LAB | | | | [facility], [address] | | | | | | [place] | | | | | | [address] | | | | + + + + + + | % Segmented | 65.6Comment: Testing | % | EXTERNAL | | | | performed at [facility], [address] | | LAB | | | Neutrophils | [address], | | | | | | [place] [address] | | | | + + + + + + | % | 23.8Comment: Testing | % | EXTERNAL | | | Lymphocytes | performed at [facility], [address] | | LAB | | | | [address], | | | | | | [place] [address] | | | | + + + + + + | % Monocytes | 9.2Comment: Testing | % | EXTERNAL | | | | performed at [facility], [address] | | LAB | | | | [address], | | | | | | [place] [address] | | | | + + + + + + | % | 1.0Comment: Testing | % | EXTERNAL | | | Eosinophils | performed at [facility], [address] | | LAB | | | | [address], | | | | | | [place] [address] | | | | + + + + + + | % Basophils | 0.4Comment: Testing | % | EXTERNAL | | | | performed at [facility], [address] | | LAB | | | | [address], | | | | | | [place] [address] | | | | + + + + + + | Absolute | 4.6Comment: Testing | 1.9 - 7.4 K/uL | EXTERNAL | | | Segmented | performed at [facility], [address] | | LAB | | | Neutrophils | [address], | | | | | | [place] [address] | | | | + + + + + + | Absolute | 1.7Comment: Testing | 1.0 - 3.9 K/uL | EXTERNAL | | | Lymphocytes | performed at [facility], [address] | | LAB | | | | [address], | | | | | | [place] [address] | | | | + + + + + + | Absolute | 0.6Comment: Testing | 0 - 0.8 K/uL | EXTERNAL | | | Monocytes | performed at [facility], [address] | | LAB | | | | [address], | | | | | | [place] [address] | | | | + + + + + + | Absolute | 0.1Comment: Testing | 0 - 0.5 K/uL | EXTERNAL | | | Eosinophils | performed at [facility], [address] | | LAB | | | | [address], | | | | | | [place] [address] | | | | + + + + + + | Absolute | 0.0Comment: Testing | 0 - 0.1 K/uL | EXTERNAL | | | Basophils | performed at [facility], [address] | | LAB | | | | [address], | | | | | | [place] [address] | | | | + + + + + + + + | Specimen | + + | Blood specimen | | (specimen) | + + + +---------+ + + | Performing | Address | City/State/Zipcode | Phone Number | | Organization | | | | + +---------+ + + | EXTERNAL LAB | | | | + +---------+ + + TSH (08/11/2013 5:13 AM PDT) + + + + + + | Component | Value | Ref Range | Performed | Pathologist | | | | | At | Signature | + + + + + + | TSH | 0.37 (L)Comment: Testing | 0.45 - 5.10 | EXTERNAL | | | | performed at [facility], [address] | [address] | LAB | | | | [address], | | | | | | [place] [address] | | | | + + + + + + + + | Specimen | + + | | + + + +---------+ + + | Performing | Address | City/State/Zipcode | Phone Number | | Organization | | | | + +---------+ + + | EXTERNAL LAB | | | | + +---------+ + + Phosphorus (08/11/2013 5:13 AM PDT) + + + + + + | Component | Value | Ref Range | Performed | Pathologist | | | | | At | Signature | + + + + + + | PHOSPHORUS | 2.4Comment: Testing | 2.3 - 4.8 mg/dL | EXTERNAL | | | | performed at [facility], [address] | | LAB | | | | [address], | | | | | | [place] [address] | | | | + + + + + + + + | Specimen | + + | Blood specimen | | (specimen) | + + + +---------+ + + | Performing | Address | City/State/Zipcode | Phone Number | | Organization | | | | + +---------+ + + | EXTERNAL LAB | | | | + +---------+ + + Magnesium (08/11/2013 5:13 AM PDT) + + + + + + | Component | Value | Ref Range | Performed | Pathologist | | | | | At | Signature | + + + + + + | Magnesium | 2.2Comment: Testing | 1.7 - 2.4 mg/dL | EXTERNAL | | | | performed at [facility], [address] | | LAB | | | | [address], | | | | | | [place] [address] | | | | + + + + + + + + | Specimen | + + | Blood specimen | | (specimen) | + + + +---------+ + + | Performing | Address | City/State/Zipcode | Phone Number | | Organization | | | | + +---------+ + + | EXTERNAL LAB | | | | + +---------+ + + Hemoglobin A1C (08/11/2013 5:13 AM PDT) + + + + + + | Component | Value | Ref Range | Performed | Pathologist | | | | | At | Signature | + + + + + + | Hemoglobin | 5.8Comment: [facility] [place] | 4.0 - 6.0 % | EXTERNAL | | | A1c | Diabetes Association | | LAB | | | | considers a hemoglobin | | | | | | A1c result of <7.0% to | | | | | | be the goal of diabetic | | | | | | therapy. When results | | | | | | are consistently >8.0%, | | | | | | the ADA suggests | | | | | | reevaluation of the | | | | | | treatment regimen. The | | | | | | testing method used is | | | | | | certified traceable to | | | | | | the Diabetes Control and | | | | | | Complications Trial | | | | | | reference method.Testing | | | | | | performed at [facility], [address] | | | | | [address], | | | | | | [place] [address] | | | | + + + + + + | Glycohemogl | 120Comment: The ADA | mg/dL | EXTERNAL | | | obin | considers an eAG result | | LAB | | | (GHb),Total | of LT 154 mg/dL to be | | | | | | the goal of diabetic | | | | | | therapy. Estimated | | | | | | Average Glucose | | | | | | calculated from | | | | | | hemoglobin A1c by use of | | | | | | the ADA recommended | | | | | | formula.Testing | | | | | | performed at [facility], [address] | | | | | [address], | | | | | | [place] [address] | | | | + + + + + + + + | Specimen | + + | Blood specimen | | (specimen) | + + + +---------+ + + | Performing | Address | City/State/Zipcode | Phone Number | | Organization | | | | + +---------+ + + | EXTERNAL LAB | | | | + +---------+ + + Comprehensive Metabolic Panel (08/11/2013 5:13 AM PDT) + + + + + + | Component | Value | Ref Range | Performed | Pathologist | | | | | At | Signature | + + + + + + | Na | 139Comment: Testing | 135 - 143 | EXTERNAL | | | | performed at [facility], [address] | mmol/L | LAB | | | | [address], | | | | | | [place] [address] | | | | + + + + + + | K | 4.1Comment: Testing | 3.5 - 4.9 | EXTERNAL | | | | performed at [facility], [address] | mmol/L | LAB | | | | [address], | | | | | | [place] [address] | | | | + + + + + + | Cl | 109Comment: Testing | 99 - 109 mmol/L | EXTERNAL | | | | performed at [facility], [address] | | LAB | | | | [address], | | | | | | [place] [address] | | | | + + + + + + | CO2 | 26Comment: Testing | 23 - 32 mmol/L | EXTERNAL | | | | performed at [facility], [address] | | LAB | | | | [address], | | | | | | [place] [address] | | | | + + + + + + | Anion Gap | 8Comment: Testing | 5 - 20 mmol/L | EXTERNAL | | | | performed at [facility], [address] | | LAB | | | | [address], | | | | | | [place] [address] | | | | + + + + + + | Glucose, | 90Comment: Testing | 65 - 99 mg/dL | EXTERNAL | | | Fasting | performed at [facility], [address] | | LAB | | | | [address], | | | | | | [place] [address] | | | | + + + + + + | BUN | 48 (H)Comment: Testing | 8 - 25 mg/dL | EXTERNAL | | | | performed at [facility], [address] | | LAB | | | | [address], | | | | | | [place] [address] | | | | + + + + + + | Creatinine | 0.92Comment: Testing | 0.70 - 1.30 | EXTERNAL | | | | performed at [facility], [address] | mg/dL | LAB | | | | [address], | | | | | | [place] [address] | | | | + + + + + + | BUN/Creatin | 52Comment: Testing | | EXTERNAL | | | ine Ratio | performed at [facility], [address] | | LAB | | | | [address], | | | | | | [place] [address] | | | | + + + + + + | Calcium | 7.8 (L)Comment: Testing | 8.5 - 10.2 | EXTERNAL | | | | performed at [facility], [address] | mg/dL | LAB | | | | [address], | | | | | | [place] [address] | | | | + + + + + + | Protein, | 5.1 (L)Comment: Testing | 6.3 - 8.2 g/dL | EXTERNAL | | | Total | performed at [facility], [address] | | LAB | | | | [address], | | | | | | [place] [address] | | | | + + + + + + | Albumin | 3.3Comment: Testing | 3.3 - 4.8 g/dL | EXTERNAL | | | | performed at [facility], [address] | | LAB | | | | [address], | | | | | | [place] [address] | | | | + + + + + + | Globulin | 1.8Comment: Testing | 1.3 - 4.9 g/dL | EXTERNAL | | | | performed at [facility], [address] | | LAB | | | | [address], | | | | | | [place] [address] | | | | + + + + + + | A/G Ratio | 1.8Comment: Testing | 1.0 - 2.4 | EXTERNAL | | | | performed at [facility], [address] | | LAB | | | | [address], | | | | | | [place] [address] | | | | + + + + + + | Bilirubin | 0.6Comment: Testing | 0.1 - 1.5 mg/dL | EXTERNAL | | | Total | performed at [facility], [address] | | LAB | | | [address], | | | | | | [place] [address] | | | | + + + + + + | ALP, | 27 (L)Comment: Testing | 35 - 115 U/L | EXTERNAL | | | External | performed at [facility], [address] | | LAB | | | | [address], | | | | | | [place] [address] | | | | + + + + + + | AST | 11Comment: Testing | 10 - 45 U/L | EXTERNAL | | | | performed at [facility], [address] | | LAB | | | | [address], | | | | | | [place] [address] | | | | + + + + + + | ALT | 12Comment: Testing | 10 - 65 U/L | EXTERNAL | | | | performed at [facility], [address] | | LAB | | | | [address], | | | | | | [place] [address] | | | | + + + + + + | Estimated | >60Comment: GFR <60: | mL/min/1.73m2 | EXTERNAL | | | GFR | CHRONIC KIDNEY DISEASE, | | LAB | | | | IF FOUND OVER A 3 MONTH | | | | | | PERIOD.GFR <15: KIDNEY | | | | | | FAILURE.FOR | | | | | | AMERICANS, MULTIPLY THE | | | | | | CALCULATED GFR BY | | | | | | 1.210.Testing performed | | | | | | at [facility], [address] | | | | | | [address], | | | | | | [place] [address] | | | | + + + + + + + + | Specimen | + + | Blood specimen | | (specimen) | + + + +---------+ + + | Performing | Address | City/State/Zipcode | Phone Number | | Organization | | | | + +---------+ + + | EXTERNAL LAB | | | | + +---------+ + + Hemoglobin and Hematocrit (08/11/2013 12:10 AM PDT) + + + + + + | Component | Value | Ref Range | Performed | Pathologist | | | | | At | Signature | + + + + + + | Hemoglobin | 10.3 (L)Comment: Testing | 13.2 - 17.0 | EXTERNAL | | | | performed at [facility];[address] | g/dL | LAB | | | | [address];[place] | | | | | | [address] | | | | + + + + + + | Hematocrit, | 31.2 (L)Comment: Testing | 39.0 - 50.0 % | EXTERNAL | | | POC | performed at [facility];[address] | | LAB | | | | [address];[place] | | | | | | [address] | | | | + + + + + + + + | Specimen | + + | | + + + +---------+ + + | Performing | Address | City/State/Zipcode | Phone Number | | Organization | | | | + +---------+ + + | EXTERNAL LAB | | | | + +---------+ + + Type and Screen (08/10/2013 7:35 PM PDT) + + + + + + | Component | Value | Ref Range | Performed | Pathologist | | | | | At | Signature | + + + + + + | ABO Rh | O POSITIVE | | EXTERNAL | | | | | | LAB | | + + + + + + | ABO Rh | Testing performed at | | EXTERNAL | | | | [facility];[place] [address] | | | | + + + + + + | Antibody | NEGATIVE | | EXTERNAL | | | Screen | | | LAB | | + + + + + + | Antibody | Testing performed at | | EXTERNAL | | | Screen | [facility];[address] | | LAB | | | | [address];[place] [address] | | | | + + + + + + | BB BAND | [id number] | | EXTERNAL | | | | | | LAB | | + + + + + + | BB BAND | Testing performed at | | EXTERNAL | | | | [facility];[address] | | LAB | | | [address];[place] [address] | | | | + + + + + + + + | Specimen | + + | Blood specimen | | (specimen) | + + + +---------+ + + | Performing | Address | City/State/Zipcode | Phone Number | | Organization | | | | + +---------+ + + | EXTERNAL LAB | | | | + +---------+ + + PTT (08/10/2013 6:15 PM PDT) + + + + + + | Component | Value | Ref Range | Performed | Pathologist | | | | | At | Signature | + + + + + + | aPTT, | 22 (L)Comment: Testing | 23 - 32 seconds | EXTERNAL | | | Patient | performed at [facility];[address] | | LAB | | | | [address];[place], [place] | | | | | | [address] | | | | + + + + + + + + | Specimen | + + | Blood specimen | | (specimen) | + + + +---------+ + + | Performing | Address | City/State/Zipcode | Phone Number | | Organization | | | | + +---------+ + + | EXTERNAL LAB | | | | + +---------+ + + Protime INR (08/10/2013 6:15 PM PDT) + + + + + + | Component | Value | Ref Range | Performed | Pathologist | | | | | At | Signature | + + + + + + | INR | 1.1Comment: REFERENCE | | EXTERNAL | | | | RANGE:0.9 - 1.2 | | LAB | | | | NON-ANTICOAGULATED2.0 | | | | | | - 3.0 ALL OTHER | | | | | | THERAPEUTIC | | | | | | INDICATIONS2.5 - 3.5 | | | | | | MECHANICAL HEART VALVES, | | | | | | RECURRENT OR SYSTEMIC | | | | | | EMBOLISMTesting | | | | | | performed at [facility];[address] | | | | | | [facility];[place], [place] | | | | | | [address] | | | | + + + + + + + + | Specimen | + + | Blood specimen | | (specimen) | + + + +---------+ + + | Performing | Address | City/State/Zipcode | Phone Number | | Organization | | | | + +---------+ + + | EXTERNAL LAB | | | | + +---------+ + + External Lab: CBC (08/10/2013 6:15 PM PDT) + + + + + + | Component | Value | Ref Range | Performed | Pathologist | | | | | At | Signature | + + + + + + | WBC | 11.1 (H)Comment: Testing | 3.8 - 11.0 K/uL | EXTERNAL | | | | performed at [facility];[address] | | LAB | | | | [address];[place] | | | | | | [address] | | | | + + + + + + | Non- | 3.85 (L)Comment: Testing | 4.20 - 5.70 | EXTERNAL | | | Red Blood | performed at [facility];[address] | M/uL | LAB | | | Cells | [address];[place] | | | | | Counted | [id number] | | | | + + + + + + | Hemoglobin | 11.8 (L)Comment: Testing | 13.2 - 17.0 | EXTERNAL | | | | performed at [facility];[address] | g/dL | LAB | | | | [address];[place] | | | | | | [address] | | | | + + + + + + | Hematocrit, | 35.6 (L)Comment: Testing | 39.0 - 50.0 % | EXTERNAL | | | POC | performed at [facility];[address] | | LAB | | | | [address];[place] | | | | | | [address] | | | | + + + + + + | MCV | 92.5Comment: Testing | 80.0 - 100.0 fl | EXTERNAL | | | | performed at [facility];[address] | | LAB | | | | [address];[place] | | | | | | [address] | | | | + + + + + + | MCH | 30.5Comment: Testing | 27.0 - 34.0 pg | EXTERNAL | | | | performed at [facility];[address] | | LAB | | | | [address];[place] | | | | | | [address] | | | | + + + + + + | MCHC | 33.0Comment: Testing | 32.0 - 35.5 | EXTERNAL | | | | performed at [facility];[address] | g/dL | LAB | | | | [address];[place] | | | | | | [address] | | | | + + + + + + | RDW-CV | 44.2Comment: Testing | 37 - 53 fl | EXTERNAL | | | | performed at [facility];[address] | | LAB | | | | [address];[place] | | | | | | [address] | | | | + + + + + + | Platelet | 189Comment: Testing | 150 - 400 K/uL | EXTERNAL | | | Count | performed at [facility];[address] | | LAB | | | Plasma | [address];[place] | | | | | | [address] | | | | + + + + + + | MPV | 9.9Comment: Testing | fl | EXTERNAL | | | | performed at [facility];[address] | | LAB | | | | [address];[place] | | | | | | [address] | | | | + + + + + + | Differentia | MANUALComment: Testing | | EXTERNAL | | | l Type | performed at [facility];[address] | | LAB | | | | [address];[place] | | | | | | [address] | | | | + + + + + + | Segmented | 80Comment: Testing | % | EXTERNAL | | | Neutrophils | performed at [facility];[address] | | LAB | | | Manual | [address];[place] | | | | | | [address] | | | | + + + + + + | % Bands | 6Comment: Testing | % | EXTERNAL | | | | performed at [facility];[address] | | LAB | | | | [address];[place] | | | | | | [address] | | | | + + + + + + | Lymphocytes | 9Comment: Testing | % | EXTERNAL | | | Manual | performed at [facility];[address] | | LAB | | | | [address];[place] | | | | | | [address] | | | | + + + + + + | Monocytes | 5Comment: Testing | % | EXTERNAL | | | Manual | performed at [facility];[address] | | LAB | | | | [address];[place] | | | | | | [address] | | | | + + + + + + | Absolute | 8.8 (H)Comment: Testing | 1.9 - 7.4 K/uL | EXTERNAL | | | Neutrophils | performed at [facility];[address] | | LAB | | | | [address];[place] | | | | | | [address] | | | | + + + + + + | Bands | 0.7 (H)Comment: Testing | 0 - 0.2 K/uL | EXTERNAL | | | Manual | performed at [facility];[address] | | LAB | | | | [address];[place] | | | | | | [address] | | | | + + + + + + | Absolute | 1.0Comment: Testing | 1.0 - 3.9 K/uL | EXTERNAL | | | Lymphocytes | performed at [facility];[address] | | LAB | | | | [address];[place] | | | | | | [address] | | | | + + + + + + | Absolute | 0.6Comment: Testing | 0 - 0.8 K/uL | EXTERNAL | | | Monocytes | performed at [facility];[address] | | LAB | | | | [address];[place] | | | | | | [address] | | | | + + + + + + | Platelet | ADEQUATEComment: Testing | | EXTERNAL | | | Estimate | performed at [facility];[address] | | LAB | | | | [address];[place] | | | | | | [address] | | | | + + + + + + | RBC | RBC AND PLT MORPHOLOGY | | EXTERNAL | | | Morphology | APPEAR NORMALComment: | | LAB | | | | Testing performed at | | | | | | [facility];[address];[place] [address] | | | | + + + + + + + + | Specimen | + + | Blood specimen | | (specimen) | + + + +---------+ + + | Performing | Address | City/State/Zipcode | Phone Number | | Organization | | | | + +---------+ + + | EXTERNAL LAB | | | | + +---------+ + + Lipase (08/10/2013 6:15 PM PDT) + + + + + + | Component | Value | Ref Range | Performed | Pathologist | | | | | At | Signature | + + + + + + | Lipase | 66 (L)Comment: Testing | 73 - 393 U/L | EXTERNAL | | | | performed at [facility];[address] | | LAB | | | | [address] [facility];[place] | | | | | | [address] | | | | + + + + + + + + | Specimen | + + | Blood specimen | | (specimen) | + + + +---------+ + + | Performing | Address | City/State/Zipcode | Phone Number | | Organization | | | | + +---------+ + + | EXTERNAL LAB | | | | + +---------+ + + Comprehensive Metabolic Panel (08/10/2013 6:15 PM PDT) + + + + + + | Component | Value | Ref Range | Performed | Pathologist | | | | | At | Signature | + + + + + + | Na | 141Comment: Testing | 135 - 143 | EXTERNAL | | | | performed at [facility];[address] | mmol/L | LAB | | | | [address];[place] | | | | | | [address] | | | | + + + + + + | K | 4.8Comment: Testing | 3.5 - 4.9 | EXTERNAL | | | | performed at [facility];[address] | mmol/L | LAB | | | | [address];[place] | | | | | | [address] | | | | + + + + + + | Cl | 107Comment: Testing | 99 - 109 mmol/L | EXTERNAL | | | | performed at [facility];[address] | | LAB | | | | [address];[place] | | | | | | [address] | | | | + + + + + + | CO2 | 27Comment: Testing | 23 - 32 mmol/L | EXTERNAL | | | | performed at [facility];[address] | | LAB | | | | [address];[place] | | | | | | [address] | | | | + + + + + + | Anion Gap | 11Comment: Testing | 5 - 20 mmol/L | EXTERNAL | | | | performed at [facility];[address] | | LAB | | | | [address];[place] | | | | | | [address] | | | | + + + + + + | Glucose, | 146 (H)Comment: Testing | 65 - 99 mg/dL | EXTERNAL | | | Fasting | performed at [facility];[address] | | LAB | | | | [address];[place] | | | | | | [address] | | | | + + + + + + | BUN | 46 (H)Comment: Testing | 8 - 25 mg/dL | EXTERNAL | | | | performed at [facility];[address] | | LAB | | | | [address];[place] | | | | | | [address] | | | | + + + + + + | Creatinine | 0.91Comment: Testing | 0.70 - 1.30 | EXTERNAL | | | | performed at [facility];[address] | mg/dL | LAB | | | | [address];[place] | | | | | | [address] | | | | + + + + + + | BUN/Creatin | 50Comment: Testing | | EXTERNAL | | | ine Ratio | performed at [facility];[address] | | LAB | | | | [address];[place] | | | | | | [address] | | | | + + + + + + | Calcium | 7.4 (L)Comment: Testing | 8.5 - 10.2 | EXTERNAL | | | | performed at [facility];[address] | mg/dL | LAB | | | | [address];[place] | | | | | | [address] | | | | + + + + + + | Protein, | 5.8 (L)Comment: Testing | 6.3 - 8.2 g/dL | EXTERNAL | | | Total | performed at [facility];[address] | | LAB | | | | [address];[place] | | | | | | [address] | | | | + + + + + + | Albumin | 3.2 (L)Comment: Testing | 3.3 - 4.8 g/dL | EXTERNAL | | | | performed at [facility];[address] | | LAB | | | | [address];[place] | | | | | | [address] | | | | + + + + + + | Globulin | 2.6Comment: Testing | 1.3 - 4.9 g/dL | EXTERNAL | | | | performed at [facility];[address] | | LAB | | | | [address];[place] | | | | | | [address] | | | | + + + + + + | A/G Ratio | 1.2Comment: Testing | 1.0 - 2.4 | EXTERNAL | | | | performed at [facility];[address] | | LAB | | | | [address];[place] | | | | | | [address] | | | | + + + + + + | Bilirubin | 0.5Comment: Testing | 0.1 - 1.5 mg/dL | EXTERNAL | | | Total | performed at [facility];[address] | | LAB | | | | [address];[place] | | | | | | [address] | | | | + + + + + + | ALP, | 47Comment: Testing | 35 - 115 U/L | EXTERNAL | | | External | performed at [facility];[address] | | LAB | | | | [address];[place] | | | | | | [address] | | | | + + + + + + | AST | 11Comment: Testing | 10 - 45 U/L | EXTERNAL | | | | performed at [facility];[address] | | LAB | | | | [address];[place] | | | | | | [address] | | | | + + + + + + | ALT | 19Comment: Testing | 10 - 65 U/L | EXTERNAL | | | | performed at [facility];[address] | | LAB | | | | [address];[place] | | | | | | [address] | | | | + + + + + + | Estimated | >60Comment: GFR <60: | mL/min/1.73m2 | EXTERNAL | | | GFR | CHRONIC KIDNEY DISEASE, | | LAB | | | | IF FOUND OVER A 3 MONTH | | | | | | PERIOD.GFR <15: KIDNEY | | | | | | FAILURE.FOR | | | | | | AMERICANS, MULTIPLY THE | | | | | | CALCULATED GFR BY | | | | | | 1.210.Testing performed | | | | | | at [facility];[address] | | | | | | [address];[place] [address] | | | | + + + + + + + + | Specimen | + + | Blood specimen | | (specimen) | + + + +---------+ + + | Performing | Address | City/State/Zipcode | Phone Number | | Organization | | | | + +---------+ + + | EXTERNAL LAB | | | | + +---------+ + + documented in this encounter Visit Diagnoses + + | Diagnosis | + + | GI bleed Hemorrhage of gastrointestinal tract, unspecified | + + | Lower abdominal pain Abdominal pain, other specified site | + + | HTN (hypertension) Unspecified essential hypertension | + + documented in this encounter
--- OUTSIDE RECORDS SUMMARY | ~2020-03-03 | XMS | Encounter Summary ---
Demographics + + + | Address | [address] | | | [place] [address] | + + + | Home Phone [...] Team Providers + +------+ + | Care Fire Protection Engineering Technician Name | Role | Phone | [...] | IP | Medicine [address] | | | | | [address] | | | | | | [place], [place] | | | | | | [address] | | | | | | [phone] | | | +--------+ + + + [...] this encounter Miscellaneous Notes Telephone Encounter - Sarkis Cardona - 12/25/2019 7:50 AM PDTThis encounter has been admin istratively closed with the authorization of the [facility] Committee. documented in this encount er Plan of Treatment Not on filedocumented as of this encounter Visit Diagnoses Not on filedocumented in this encounter"
--- OUTSIDE RECORDS SUMMARY | ~2020-03-03 | XMS | Encounter Summary ---
Demographics + + + | Address | [address] | | | [place] [address] | + + + | Home Phone | | + + + | Preferred Language | Unknown | + + + | Marital Status | | + + + | Latter Day Affiliation | NON | + + + [...] Team Providers + +------+ + | Care Web Art Director Name | Role | Phone | [...] | 05/31/ | Hospital | [facility] [id number] | Ashwini Ruggiero MD | | | 2019 - | Encounter | [address] | [address] | | | | | [place], | [facility] [address] | | | 06/06/ | | [place] [address] | [place], [place] | | | 2018 | | [phone] | [address] | | | | | | [phone] | | | | | | | | | | | | Nguyễn Shepard, | | | | | | [address] | | | | | | [facility] [address] | | | | | | [place], [place] | | | | | | [phone] | | | | | | [phone] | | | | | | | [...] differe nt from the original. [facility] DEPARTMENT OF ORTHOPAEDICS & REHABILITATION INPATIENT HOSPITAL DISCHARGE SUMMARY & INTERDISCIPLINARY INSTRUCTIONS Patient: Lilian Hurst CSN: [id number] Admission Date: 05/31/2018 Discharge Date: 06/06/2018 Attending Physician: Nguyễn Shepard MD PCP: SHAHEEN Love Service: [facility] Orthopaedics & Rehabilitation Diagnoses Principal Final [...] your wound is infected. Call [facility] Orthopedics first at [phone]. Activity NON Weight bearing on left leg. For approximately 4 weeks to be determined at postoperative clinic visit. Condition on Discharge Stable Follow-Up Appointments ORTHOPEDICS OUTPATIENT CLINIC: Future Appointments Provider Department Dept Phone Center 07/02/2018 1:40 PM Nguyễn Chance Working Orthopaedics at [facility] [phone] Orthopedics PCP: As needed for any medical [...] mouth once daily at bedtime. [facility] Orthopaedic Service Pain Policy At the [...] administration instructions. - Call Orthopedic Clinic at [phone] if any persistent, localized swelling that does [...] and ask for the orthopaedic surgery resident contingents supervisor. Additional Post-Op Instructions / What to Expect [...] feel that you will need more, call [phone] during business hours in order to get [...] a SNF "I certify that post-hospital inpatient longterm facility care is medically necessar y on [...] has been our pleasure. ELISE Mckeon [facility] Department of Orthopaedics & Rehabilitation [address] [place] [address] Mail Code: OP31 [facility] [id number] documented in t his encounter Medications at [...] left pelvic fracture, transferred to [facility] Orthopedic Surgery service for surg ical management. [facility] initially consulted for pre-operative evaluation. Nausea/Vomiting [...] uses sparingly. On arrival to [facility] he was on 4 L NC [...] MD Attending Physician Clinical Hospitalist Services [facility] Pager [phone] Please call or page me with any questions or concerns. Doe Newman MD - 06/06/2018 9:11 AM PST Orthopaedic Surgery Progress Note Patient: /Age: MRN: CSN: Date: Admission Date: Hospital Day: Orthopaedic Attending: Lilian Hurst 1935 83 y.o. [id number] 06/06/2018 05/31/2018 6 Nguyễn Shepard MD Diagnosis: [...] left pelvic fracture, transferred to [facility] Orthopedic Surgery service for surg ical [...] uses sparingly. On arrival to [facility] he was on 4 L NC [...] MD Attending Physician Clinical Hospitalist Services [facility] Pager [phone] Please call or page me with any questions or concerns. Doe Newman MD - 06/05/2018 7:10 AM PST Orthopaedic Surgery Progress Note Patient: /Age: MRN: CSN: Date: Admission Date: Hospital Day: Orthopaedic Attending: Lilian Hurst 1935 83 y.o. [id number] 06/05/2018 05/31/2018 5 Nguyễn Shepard MD Diagnosis: [...] [facility] & [...] refill < 2 seconds Doe Gongora MD [facility] Department of Orthopaedics & Rehabilitation [address] [place] [address] Mail Code: [address] [place] [address] Kg Snider MD - 06/04/2018 [...] left pelvic fracture, transferred to [facility] Orthopedic Surgery service for surg ical management. [facility] initially consulted for pre-operative evaluation. Nausea/Vomiting [...] uses sparingly. On arrival to [facility] he was on 4 L NC [...] MD Attending Physician Clinical Hospitalist Services [facility] Pager [phone] Please call or page me with any questions or concerns. oulton, Devendra Allen MD - 06/04/2018 7:48 AM PST Orthopaedic Surgery Progress Note Patient: /Age: MRN: CSN: Date: Admission Date: Hospital Day: Orthopaedic Attending: Lilian Hurst 1935 83 y.o. [id number] 06/04/2018 05/31/2018 4 Nguyễn Shepard MD Diagnosis: [...] with ORTHO TRAUMA & FRACTURE, Ana Gill, CLINICAL PROGRAM CONSULTANT - (Jie a nd Working) Subjective: Has [...] refill < 2 seconds Doe Gongora MD [facility] Department of Orthopaedics & Rehabilitation [address] [place] [address] Mail Code: OP31 [facility] [address] Devendra Scales MD - 06/03/2018 8:32 PM PST [facility] DEPARTMENT OF ORTHOPAEDICS & REHABILITATION [...] Orthopaedic Surgery Resident 06/03/2018, 8:33 PM [facility] Department of Orthopaedics & Rehabilitation [address] [place] [address] Mail Code: OP31 [facility] [id number] Jade Messina MD - 06/02/2018 8:36 AM [...] Please call Orthopaedic Trauma and Fracture at [phone] to schedule a followup within 2 weeks from discharge. ALEXA SEARS MD Pager: [phone] 06/02/2018 Doe Newman MD - 06/01/2018 8:27 AM PST Orthopaedic Surgery Progress Note Patient: /Age: MRN: CSN: Date: Admission Date: Hospital Day: Orthopaedic Attending: Lilian Hurst 1935 83 y.o. [id number] 06/01/2018 05/31/2018 1 Nguyễn Shepard MD Diagnosis: [...] to make a follow up appointment in [facility] 2-3 weeks with ORTHO TRAUMA & FRACTURE, [...] Reflexes: not performed Doe Gongora MD [facility] Department of Orthopaedics & Rehabilitation [address] [place] [address] Mail Code: OP31 [facility] [address] documented in this enco unter Procedure Notes Drea, Nguyễn Chance MD - 06/03/2018 4:58 PM PSTAssociated Order(s): OPERATION RECORDProced ure(s): AL OPEN CORRECTION WARDEN FIX COMPLEX ACETABUL FXPre-Procedure Diagnose(s): Closed fracture of both anterior and posterior columns of left acetabulum (HCC)Post-Procedure Diagnose(s): Clos ed fracture of both anterior and posterior columns of left acetabulum (HCC)Date of Service: 06/03/2018 Attending Surgeon: Nguyễn Shepard MD Tentmaker(s): Devendra Da Silva MD. Preoperative Diagnosis: Left [...] He was transferred to the [facility] flat [facility]. A sacral bump consi sting of [...] 3 incisions. The patient was awoken from [facility] endotracheal anesthesia and transferred to the [...] referred to my care at [facility] by another orthopaedic surgeon. The patient i s from the [facility] and traveled many miles to get to [facility], bypassing several other spitals due to [...] surface. The pateint [facility] making postop care more difficult to render, and is quite noncompliant due to a comb ination of dementia and stubbornness which increases the risk of post operative complication dramatically. Please reflect all of this in the nature of the patients care. MD RAMA Altamirano/PRINCE /[id number] documented in this encounter Consult Notes Teresita Bobo PA-C - 06/05/2018 9:22 PM PSTINPATIENT GERIATRICS CONSULT - FOLLOW U P Admission Date: 05/31/2018 Hospital Day: 5 Referring Provider: Nguyễn Shepard MD Consulting Provider: TERESITA BOBO PA-C PCP: SHAHEEN Gustafson Consult Question: frailty and delirium management ID: Lilian Hurst (Frank) is an 83 y.o. independent, community dwelling [place] with CHF, LENS SHAPER GRINDER D, SVT, past left hip fracture and [...] metabolic encephalopathy (resolved); closed acetabular fracture; ac agdaagux fracture pain; high risk for hospital-associated deconditioning [...] will sign off. Please page consult pager [phone] if new questions for the geriatrics team [...] Sherly Ellison I spent 22 minutes in jcob-np-seam care of Mr Hurst and in discussion on his unit with other providers, with > 50% in counseling/coordination of care regarding delirium management and prevention, pain control, mobility, and chart review and documentation on the unit. ROBEL Mohan PA-C Inpatient Geriatrics Consult Service Division of Internal Medicine & Geriatrics [facility] Pager: [phone] Shannon Can H - 06/04/2018 6:04 PM PST Medical Student Gastroenterology Consult Note 06/04/2018 REASON FOR CONSULT: brown / black emesis concerning for GI bleed REFERRING TEAM/ATTENDING: [facility] / Daniel BAUTISTA IMPRESSION Resolving postoperative ileus [...] Guadalupe Santiago Jose Guadalupe Terriluann, MS4 Pgr [phone] HISTORY OF PRESENT ILLNESS Lilian Hurst is a 83 y.o. male with a past medical history significant for hemodynamic ally significant gastrointestinal bleed in 2013 on omeprazole, ongoing SVT, choledocholithia sis and cholangitis with ERCP s/p sphincterotomy and stenting on 06/2017, cholecystectomy, as piration pneumonitis, COPD, and hypertension. He was transferred to [facility] for left pelvic fracture now s/p [...] on file Social History Narrative Originally from [place], [place], but moved for a time in his teens to [facility]. 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 Enjoys [employer] his garden each summer, watching westerns, and [...] HOSPITALIST DISCHARGE SUMMARY Patient ID: Lilian Hurst [id number] 78 y.o. 1935 Admit date: 08/10/2013 Discharge [...] [facility] and was transferred to [facility] for a GI evaluation. Dr. Ca from gastroenterology was consulted because of the ac agdaagux GI bleed. The patient was started on [...] endoscopy the patient was transferred to the [facility] floor. Serial hemoglobin and hematocrit [...] y.o. independent, community dwelling salazar with CHF, LENS SHAPER GRINDER D, SVT, past left hip fracture and [...] encephalopathy, improving #Procedural sedation #Acute fracture pain #Oij-txvijb-ifodyqw status Suspect that Carlos exhibited acute hyperactive [...] Carlos may get to rehab in the [place] prior to being transporte d home [...] BOBO PA-C Inpatient Geriatrics Consult Service Pager [phone] Consult Pager [phone] HPI: Lilian Hurst is an 83 y.o.man [...] earlier today and have now returned to [facility]. Had onset of abdominal pain and bloating [...] Diagnosis Date COPD (chronic obstructive pulmonary disease) ([facility]) GI bleed 2013 esophageal ulcer s/p clipping 2013 HTN (hypertension) Normocytic anemia Hgb around 11 in 2013 Prediabetes SVT (supraventricular tachycardia) ([facility]) unclear hx. "Possible SVT" per chart in 2012. Additional PMH per CareEverywhere records: Atrial fibrillation ([facility]) Choledocholithiasis Crush injury lower extremities 1965 Left leg and foot Diverticulosis of colon Hip fracture ([facility]) 2002 Left Hyperlipidemia Inguinal hernia Osteoarthritis, generalized [...] Social History Social History Narrative Originally from [place], [place], but moved for a time in his teens to [facility]. 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 Enjoys [employer] his garden each summer, watching westerns, and game shows. Lives in his own home next doo r to his daughter with his Mirian saez. Typical day: wakes at 6 am, putters in the kitchen; breakfast is two homemade oatmeal cook ies, coffee and tangerines. Mirian De Anda wakes around 9 and he feeds her. Spends a few hours on [place] "to see what everyone is talking about," [...] moist mucous membran es, non-erythematous, no exudate. [place]. Dentition in fair repair. Cardiovascular: RRR with intermittent ectopic beats, no murmurs/rubs/gallops. No lower extr emity edema. Respiratory: Decreased breath sounds in bases L>R, otherwise clear. Breathing comfortably o n 2LPM by NC. Skin: Warm, dry, without rashes. Nails well trimmed. 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 Enjoys g rowing his garden each summer, [...] LIP to utilize delirium order set in [facility] to identify cause and guide appropriat [...] Precious Bobo, Geriatrics [place] [phone] with any further nursing questions or concerns, if you would like t o speak with our chief informatics officer contingents supervisor, they can be reached at pager [phone]. Rosita Paul RN, [place] Geriatric Nurse Educator/PPL [phone] Vic Zhang MD - 06/03/2018 9:12 AM PST HOSPITALIST INPATIENT PROGRESS NOTE Author: Vic Petty MD, PhD PCP: SHAHEEN Love Hospital Day:3 ID: Liilan Hurst is a 83-year-old man with COPD and HTN who presented to an OSH after GLF, found to have left pelvic fracture, transferred to [facility] Orthopedic Surgery service for surgical management. [facility] consulted for pre-operative evaluation. 24h Events: [...] left pelvic fracture, transferred to [facility] Orthopedic Surgery service for surg ical management. [facility] consulted for pre-operative evaluation. # Pre-operative [...] uses sparingly. On arrival to [facility] he was on 4L NC and [...] Clinical Hospitalist and Medicine Teaching Services [facility] Pager [phone] I spent more than 26 minutes pccn-kd-btke with the patient of which greater than [...] best of my knowledge. 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 [...] left pelvic fracture, transferred to [facility] Orthopedic Surgery service for surg ical management. [facility] consulted for pre-operative evaluation. # Pre-operative [...] uses sparingly. On arrival to [facility] he was on 4L NC and [...] Clinical Hospitalist and Medicine Teaching Services [facility] Pager [phone] I spent more than 28 minutes kfli-sd-gfhj with the patient of which greater than [...] left pelvic fracture, transferred to [facility] Orthop edic Surgery service for surgical management. [facility] consulted for pre-operative evaluation. History derived [...] He was t ransferred to [facility] Orthopedic Surgery for surgical management. Current [...] done PFTs. He [facility] a [facility]bulizer [facility], but uses it sparingly. At baseline, [...] once he ar rived at [facility]. He has been sating between 88-94%, [...] left pelvic fracture, transferred to [facility] Orthopedic Surgery service for christina gical [...] uses sparingly. On arrival to [facility] he was on 4L NC and [...] and Medicine Teaching Services [facility] Pager [phone] I spent 75 minutes in care of [...] Sunday - NWB ALLYSSA SEARS MD Pager: [phone] 05/31/2018 [facility] DEPARTMENT OF ORTHOPAEDICS & REHABILITATION [...] No date: COPD (chronic obstructive pulmonary disease) ([facility]) 2014: GI bleed Comment: esophageal ulcer s/p clipping 2013 No date: HTN (hypertension) No date: Normocytic anemia Comment: Hgb around 11 in 2013 No date: Prediabetes No date: SVT (supraventricular tachycardia) ([facility]) Comment: unclear hx. "Possible SVT" [...] & FRACTURE, The orthopaedics consult pager is #[phone], please call with questions. Doe Gongora MD, MPH Orthopaedic Surgery Resident p [id number] signed by Nguyễn Shepard MD at 06/01/2018 [...] Orthopedics & Rehabilitation - Orthopaedic Trauma [facility] documented in this encounter Miscellaneous Notes Plan [...] light/urinal/phones/yankour suction all in reach. Nurse notified. [facility] BASIC MOBILITY Difficulty turning over in [...] to do/total assistance - Total/Dependen t Assist [facility] Basic Mobility Total Score 16 Interpretation of [facility] Short Form - Basic Mobility: CMS [...] to be determined . Jodi Knowles, ANANYA [id number] andoff - Kiah Corral , RN - 06/05/2018 9:20 PM PSTNursing Handoff Patient Daily Goal: sleep (06/05/182039) Patient Specific Preferences: cluster care (06/05/182039) [facility] IP NURSE HANDOFF: [facility] hospital course [...] emesis x3 in AM Hx: COPD, HTN, NE 2018, stents, CHF, SVT SAFETY Patient/Family Target: [...] Specific Preferences: cluster care (06/04/182024) [facility] IP NURSE HANDOFF: [facility] hospital course [...] emesis x3 in AM Hx: COPD, HTN, NE 2018, stents, CHF, SVT SAFETY Patient/Family Target: [...] Specific Preferences: cluster care (06/04/182024) [facility] IP NURSE HANDOFF: [facility] course [...] emesis x3 in AM Hx: COPD, HTN, NE 2018, stents, CHF, SVT SAFETY Patient/Family Target: [...] Specific Preferences: cluster care (06/01/182041) [facility] IP NURSE HANDOFF: [facility] hospital course events: 05/31: tx from [facility]. Fell 05/30- left hip and pelvic fx 06/01: skeletal traction 06/02: Elevated HR EKG showed SR with PACs. Takes dilt at baseline (none since admission), s tarted on 6.25 mg metop noc 06/02. 06/03 early am 4 beats of v-tach 06/04: coffee ground emesis x3 in AM Hx: COPD, HTN, NE 2018, stents, CHF, SVT SAFETY Patient/Family Target: [...] 06/04/2018 4:58 PM PST Physical Therapy Evaluation [phone] LILIAN HURST [facility] Day: 4 Date of : 1935 [...] anemia Prediabetes SVT (supraventricular tachycardia) ([facility]) Past Surgical History: Procedure Laterality [...] better, get home when he can Communication/Barriers: mohawk/none Pain: indicates 12/28 Vital Signs: see doc [...] x 3' bed to chair Outcome Measure: [facility] BASIC MOBILITY Difficulty turning over in [...] to do/total assistance - Total/Dependen t Assist [facility] Basic Mobility Total Score 13 Interpretation of [facility] Short Form - Basic Mobility: CMS [...] lan of Care - Hansa Guerrero i, TALENT DEVELOPMENT COORDINATOR - 06/04/2018 4:36 PM PSTProblem: LUIS FERNANDO Goals & Interventions Goal: Effective Family Coping Outcome: Goal met Date Met: 06/04/18 Referral Received From: Unit RIGHT OF WAY BUYER called - patient's daughter requesting to speak with LUIS FERNANDO Intervention: Called and spoke with . She says that she needs to return to [place] to get back to work and take care of both her and patient's home ( lives next door to [place]). She is asking for information on getting Power of Facing End Trimmer paperwork so she can take care o f patient's finances and pay his bills. LUIS FERNANDO provided following information: -Patient will need to be deemed cognitively clear and able to consent for himself in order to sign POA forms - can locate POA forms online (many options available on internet, due to fact that P OA is legal document- [facility] staff are not allowed to provide [...] notary list to email addresses provided: [email or web address] Recommendation/Plan/Referrals: will work on POA. Provided her with contact info for mobile notary. LUIS FERNANDO provided letter for 's employer. No other social work needs identified at this time. Social work referral completed. Closing case. See medical and ancillary service notes for other needs and care plans. Please call or page if additional social work needs are identified. Hansa Bhatt LCSW Pharmacy Picking Tech- 13K Oncology/7A Medical ICU/ 9K Orthopedics Phone: [phone] Pager:[phone] andoff - Maricruz Hicks RN - 06/04/2018 8:38 AM PSTNursing Handoff Patient Daily Goal: Pain control, sleep (06/02/182017) Patient Specific Preferences: cluster care (06/01/182041) [facility] IP NURSE HANDOFF: [facility] course events: 05/31: tx from [facility]. Fell 05/30- left hip and pelvic fx 06/01: skeletal traction 06/02: Elevated HR EKG showed SR with PACs. Takes dilt at baseline (none since admission), s tarted on 6.25 mg metop noc 06/02. 06/03 early am 4 beats of v-tach Hx: COPD, HTN, NE 2018, stents, CHF, SVT SAFETY Patient/Family Target: [...] pain medication information: none Functional Epidural: N/A MUTTON PUNCHER: N/A Respiratory: RR: 16 , O2 Sat: 95 % , O2 Delivery: Nasal cannula Breath Sounds: Ex MEI: LLL: RUL: RLL: JYOTI No Comment: no hx. Hx copd. Goal sats 88-94. Cardiac: BP: 128/72 HR: 73. Hx svt, vt, afib and nsr with pvc's and pac's GI: Nausea/Vomiting Status: No Signs/Symptoms: Interventions: Assessment: Comments: denies nausea : Last void: 1500 Contact Name: Nathan [phone] Contact Number: Nathan [phone] Family contacted: Yes Comment:will update prior to tranfser Belongings:returning PIV x 2. Surgical incisions CDI. Confused as in preop. Oriented x self only and follows commands. Restless and tries to get oob. rief Op Note - Nguyễn Shepard MD - 06/03/2018 2:12 PM PSTFormatting of this note might be different from the o riginal. [facility] Department of Orthopaedics & Rehabilitation BRIEF OPERATIVE NOTE Patient: /Age: MRN: CSN: Date: Admission Date: Hospital Day: Lilian Hurst 1935 83 y.o. [id number] 06/03/2018 05/31/2018 3 Attending Surgeon: Nguyễn Shepard MD Tentmaker(s): 1. Mitesh Da Silva MD Preoperative Diagnosis(es): [...] to make a follow up appointment in [facility] 4 weeks with MD Drea 8. Anticipated Discharge: 1-3 days Nguyễn Shepard MD Orthopaedic Trauma andoff - Lakshmi Ortiz RN - 06/02/2018 11:07 PM PSTNursing Handoff Patient Daily Goal: Pain control, sleep (06/02/182017) Patient Specific Preferences: cluster care (06/01/182041) [facility] IP NURSE HANDOFF: [facility] course events: 05/31: tx from [place]. Fell 05/30- left hip and pelvic fx 06/01: skeletal traction 06/02: Elevated HR EKG showed SR with PACs. Takes dilt at baseline (none since admission), s tarted on 6.25 mg metop noc 06/02. 06/03 early am 4 beats of v-tach Hx: COPD, HTN, NE 2018, stents, CHF, SVT? SAFETY Patient/Family Target: [...] Specific Preferences: cluster care (06/01/182041) [facility] IP NURSE HANDOFF: [facility] hospital course events: 05/31: tx from [place]. Fell 05/30- left hip and pelvic fx 06/01: skeletal traction Hx: COPD, HTN, NE 2018, stents, CHF COMFORT/ANXIETY/BEHAVIOR Patient/Family Target: Manage [...] then dropping to 70-80s with irregular beats. [facility] consult notified and patient placed on [...] for tachycardia & irregular rate -NPO at [place]; pre-op check list tonight EDUCATION NEEDS: D/C PLAN: OR Sunday morning Barriers to discharge: OR Sunday andoff - Karen Corral RN - 06/01/2018 11:31 PM PSTNursing Handoff Patient Daily Goal: sleep, bowel movement (06/01/182041) Patient Specific Preferences: cluster care (06/01/182041) [facility] IP NURSE HANDOFF: [facility] hospital course events: 05/31: tx from [place]. Fell 05/30- left hip and pelvic fx 06/01: placed in skeletal traction 15 lbs Hx: COPD, HTN, NE 2018, stents, CHF COMFORT/ANXIETY/BEHAVIOR Patient/Family Target: Manage [...] Patient Daily Goal: RN advocacy: safety (06/01/18 6480) Patient Specific Preferences: cluster care (05/31/18 2194) [facility] IP NURSE HANDOFF: [facility] hospital course events: 05/31: tx from [place]. Fell 05/30- left hip and pelvic fx 06/01: skeletal traction Hx: COPD, HTN, NE 2018, stents, CHF COMFORT/ANXIETY/BEHAVIOR Patient/Family Target: Manage [...] post OR. James Tucker PT, DPT Pager: [phone] lan of [facility] - Bob Hernandez RCP - 06/01/2018 1:03 [...] Specific Preferences: cluster care (05/31/182046) [facility] IP NURSE HANDOFF: [facility] hospital course events: 05/31: tx from [place]. Fell 05/30- left hip and pelvic fx Hx: COPD, HTN, NE 2018, stents, CHF COMFORT/ANXIETY/BEHAVIOR Patient/Family Target: Manage [...] 05/31/2018 6:55 PM PSTNursing Handoff [facility] IP NURSE HANDOFF: [facility] hospital course events: 05/31: tx from [place]. Fell 05/30- left hip and pelvic fx Hx: COPD, HTN, NE 2018, stents, CHF COMFORT/ANXIETY/BEHAVIOR Patient/Family Target: Manage [...] [facility] hospital course events: 05/31 tx from [facility] . Fell 05/30- left hip and pelvic fx Hx: COPD, HTN, NE 2018, stents, CHF Recommendations Forward: Takes pills whole with water Was receiving 1mg IV dilaudid per report from [facility] MOBILITY: bedrest MOBILITY PLAN:- LAST TIME MOBILIZED:- PAIN: 5mg oxycodone ORDER FOLLOW-UP: - EDUCATION NEEDS: - D/C PLAN: surgery sunday ransfer Note - Gabriela Espinoza, D.O. - 05/30/2018 7:25 PM PST INPATIENT MEDICINE TRANSFER CENTER & INTRA-HOSPITAL ACCEPT NOTE Medicine Hospitalist Attending Author: Mehran Espinoza DO PCP: SHAHEEN Love [address] / [place] [address] FAX: [phone] I was called by transfer line to discuss possible transfer of Lilian Hurst to [facility] Medicine Service. The history is obtained from referring provider and I have not corrob orated history with patient or record, as patient still under direct care of referring [facility]. Referring Physician: Dr. Cabello Referring Site (or [facility] Service): [facility] Specialists involved: , orthopedics Reason for Transfer/Admission: fractured pelvis Floor or ICU Request: Floor HPI/PMH/Exam: Lilian Hurst is an 83 year old man with COPD, hypertension, prior NE, mild chf, who pr esented with a left acetabular fracture after a ground-level fall. Had a ground-level fall this morning on ice. 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 Now has complex acetabular and pelvic fracture. Has multiple medical comorbidities including COPD, hypertension, prior NE, "mild chf", none of which appear to b e active currently. Highly functional at baseline. Current Vitals: 97.9, heart rate 65, 153/85, 92% on RA Pertinent Studies: Labs: Hgb 14.5, platelets 159; chemistries and EKG within normal limits Imaging: chest x-ray within normal limits Procedures: not applicable Code Status: FULL code Disposition: (accepted or declined) After discussion with the emergency department and phys xdhma-xe-dow-day, ultimately admitted to orthopedics as primary with [facility] consulting. Please contact [facility] when the patient arrives and we will provide medical and lesly-operative consultation. Mehran Espinoza D.O. Short Haul Drivervet tech [facility] Clinical Hospitalist Service Pager [phone] ransfer Note - Daniela Clarke MD - 05/30/2018 6:00 PM [id number] M copd htn prior NE CHF Left acetabular fracture after GLF Ortho [...] needed Daniela Daigle MD DIONNE [facility] Department of Emergency Medicine documented in [...] [facility] | [address] | [place] [address] | | | SERVICES, CORE | PARK [...] | | | LABORATORY | | | TURKISH | | | SERVICES, | | | [...] | + + + + + | [facility] | [address] | [place] [address] | | | SARA, YOKASTA | RICHARD [...] + + + + | [facility] | [address] | [place] [address] | | | SERVICES, CORE | PARK [...] | | | LABORATORY | | | TURKISH | | | SERVICES, | | | [...] | + + + + + | [facility] | [address] | [place] [address] | | | SERVICES, CORE | RICHARD [...] [facility] | [address] | [place] [address] | | | SERVICES, CORE | PARK [...] | + + + + + | [facility] | [address] [facility] [address] | [place] [address] | | | SERVICES, CORE | [address] | | | + + + + + X-RAY PORTABLE 2 VIEW ABDOMEN (KUB AND UPRIGHT) (06/04/2018 2:32 PM PST) + + | Specimen | + + | | + + + + + | Narrative | Performed At | + + + | EXAM: AL 2 VIEW ABDOMEN (KUB AND UPRIGHT) History: [...] Interface - 06/04/2018 4:24 PM PST EXAM: AL 2 VIEW | | ABDOMEN (KUB AND [...] LABORATORY | [address] | [place] [address] | | | SERVICES, CORE | PARK [...] + + + + | [facility] | [address] | [place] [address] | | | SERVICES, CORE | PARK [...] LABORATORY | [address] | [place] [address] | | | SERVICES, CORE | PARK [...] | | | LABORATORY | | | TURKISH | | | SERVICES, | | | [...] equation recommended by the | [facility] | | National Kidney Disease Education [...] + + + + | [facility] | [address] | [place] [address] | | | SERVICES, YOKASTA | RICHARD [...] | | Attending Surgeon: Nguyễn Shepard MD Tentmaker(s): Devendra Allen | | MD Avinash. Preoperative [...] He | | was transferred to the [facility] flat top. A sacral bump consisting of [...] referred to my care at [facility] by another | | orthopaedic surgeon. The patient is from the [facility] and traveled many miles to | | get to [facility], bypassing several other hospitals due to [...] 06/03/2018 14:26:09DT: | | 06/03/2018 16:58:33Job #: [id number] | + + MAGNESIUM, PLASMA (06/03/2018 4:37 [...] LABORATORY | [address] | [place] [address] | | | SERVICES, CORE | PARK [...] DEPT OF | [address] | [place], [place] | | | CARDIOLOGY | [address] | [address] | | + + + + + [...] + | [facility] | [address] | [place], [place] | | | [facility] | [address] | [address] | | | TESTS | | | | + + + + + X-RAY PELVIS 4+ VIEWS (06/03/2018 2:05 [facility]) + + | Specimen | + [...] [facility] | [address] | [place], [place] | | | [facility] | [address] | [address] | | | TESTS | | | [...] | [facility] | [address] [facility] | [place] [address] | | | SERVICES, CORE | PARK [...] | | | LABORATORY | | | TURKISH | | | SERVICES, | | | [...] the MDRD equation recommended by the | [facility] | | National Kidney Disease Education Program. [...] | + + + + + | [facility] | [address] | [place] [address] | | | SARA, YOKASTA | RICHARD [...] Note | + + | Service Account, [employer] Res In Interface - 06/02/2018 11:23 AM [...] DEPT OF | [address] | [place], [place] | | | CARDIOLOGY | [address] | [address] | | + + + + + [...] | + + + + + | [facility] | [address] | [place] [address] | | | SARA, YOKASTA | RICHARD [...] | + + + + + | [facility] | [address] [facility] | [place] [address] | | | SERVICES, CORE | RICHARD [...] | | | LABORATORY | | | TURKISH | | | SERVICES, | | | [...] | [address] | [place] [address] | | | SERVICES, CORE | PARK [...] | + + + + + | [facility] | [address] | [place] [address] | | | SERVICES, | [address] [...] | + + + + + | [facility] | [address] | [place] [address] | | | SARA | RICHARD [address] [...] LABORATORY | [address] | [place] [address] | | | SERVICES, CORE | RICHARD [...] Note | + + | Service Account, [employer] Res In Interface - 06/01/2018 6:04 PM [...] | + + + + + | [facility] | [address] [facility] | [place] [address] | | | SERVICES, CORE | PARK [...] | | | LABORATORY | | | TURKISH | | | SERVICES, | | | [...] the MDRD equation recommended by the | [facility] | | National Kidney Disease Education Program. [...] | + + + + + | [facility] | [address] [facility] | [place] [address] | | | SERVICES, CORE | RICHARD [...] LABORATORY | [address] | [place] [address] | | | SERVICES, CORE | PARK [...] | | | LABORATORY | | | TURKISH | | | SERVICES, | | | [...] | + + + + + | [facility] | [address] | [place] [address] | | | SERVICES, YOKASTA | RICHARD [...] | | | | | 2357, Until [facility] 06/06/18 at 2229, | | | [...]
--- OUTSIDE RECORDS SUMMARY | ~2020-03-03 | XMS | Encounter Summary ---
Demographics + + + | Address | [address] | | | [place] [address] | + + + | Home Phone [...] Team Providers + +------+ + | Care Microphone Boom Operator Name | Role | Phone | [...] Order | [address] | [facility], | | | | | [address] | [place] [address] | | | | | [address] [place], | [phone] | | | | | 4th floor [place], | | | | | | [place] [address] | | | | | | [phone] | | | +--------+ + + + [...] + | MRN: | BETTINA | | [id number] Date: 06/27/2017Patient Name: William BurnsDannielle #: | ENDOSCOPY | | [id number] of : 1935SN: [id number] Type: | | | InpatientRoom: SORProcedure: ERCPIndications: | | | For therapy of ascending cholangitis; 82 yo M with | | | sepsis, elevated LFTs and US showing mary dil and 1.3 cm | | | CBDProviders: RENE | | | Thompson MALDONADO MD (Doctor), JORDY SOLANO, | | | RN (Nurse), ESTELA DAMIAN RN (Strings Teacher)Referring MD: | | | Requesting Provider: Medicines: [...] The | | | Olympus [id number]-[id number] Duodenoscope #[id number] was | | | introduced through the [...] with acute | | | cholangitis. The raw stock dyeing machine tender film was normal. The esophagus was | [...] Initiated On: | | | 06/27/2017 6:38 [facility] Letter to: LANA MATHEWS MD | | [...]
--- OUTSIDE RECORDS SUMMARY | ~2020-03-03 | XMS | Encounter Summary ---
Demographics + + + | Address | [address] | | | [place] [address] | + + + | Home Phone [...] Team Providers + +------+ + | Care Vp Revenue Cycle Name | Role | Phone | + [...] | | | | | | [facility] | | | | | | Hospital Admitting | | | | | | Desk Located on the | | | | | | 9th floor | | | | | | [place], [place] | | | | | | [address] | | | +--------+ + + + [...]
--- OUTSIDE RECORDS SUMMARY | ~2020-03-03 | XMS | Encounter Summary ---
Demographics + + + | Address | [address] | | | [place] [address] | + + + | Home Phone [...] + + + | Author | [facility] | | | and [place] | + + + | Organization | [facility] | | | [...] Team Providers + +------+ + | Care Precision Grinder External Name | Role | Phone | + +------+ + | Herlinda Maldonado | PCP | | | PA | | | + +------+ + Encounter Details +--------+ + + + + | Date | Type | Department | Care Team | Description | +--------+ + + + + | 03/26/ | [facility] | [facility] | Maximilian Abreu | Atrial fibrillation, | | 2019 | Encounter | MED CTR NUCLEAR | MD Jon [address] | unspecified type | | | | MEDICINE [address] | [address] [place] | ([facility]); Abnormal EKG | | | | [address] [place], | [place] [address] | | | | | [place] [address] | [phone] | | | | | [phone] | | | +--------+ + + + [...] AGE: 84 y.o. PRIMARY CARE: SHAHEEN Toro [place] METHODS TIME ANALYST: Salvador Abreu MD, PhD, [facility] 48-HOUR HOLTER MONITOR REPORT DATE: 03/26/2019 [...] 25 cycles on 01:15. 5) There were 96209 Supraventricular beats with 558 couplets and 78 [...] reported. Signed by: Salvador Abreu MD PhD [facility] 03/27/2019, 16:05 documented in t his [...] PRIMARY CARE: | | | SHAHEEN Toro [place] METHODS TIME ANALYST: Salvador Abreu MD, | | | PhD, [facility] 48-HOUR HOLTER MONITOR REPORT DATE: 03/26/2019 [...] 01:15. | | | 5) There were 84161 Supraventricular beats with 558 couplets and | [...] | Signed by: Salvador Abreu MD PhD [facility] 03/27/2019, 16:05 | | + + [...]
--- OUTSIDE RECORDS SUMMARY | ~2020-03-03 | XMS | Encounter Summary ---
Demographics + + + | Address | [address] | | | [place] [address] | + + + | Home Phone | | + + + | Preferred Language | Unknown | + + + | Marital Status | | + + + | Jain Affiliation | NON | + + + [...] Team Providers + +------+ + | Care Retail Pharmacy Merchandiser Name | Role | Phone | + [...] Rd | | | | | | [place], [place] | | | | | | [address] | | | | | | [phone] | | | +--------+ + + + [...] istratively closed with the authorization of the [facility] Committee. documented in this encount er Plan of Treatment Not on filedocumented as of this encounter Visit Diagnoses Not on filedocumented in this encounter"
--- OUTSIDE RECORDS SUMMARY | ~2020-03-03 | XMS | Encounter Summary ---
Demographics + + + | Address | [address] | | | [place] [address] | + + + | Home Phone [...] Team Providers + +------+ + | Care Estimator Paperboard Boxes Name | Role | Phone | + [...] as of this encounter Procedure Notes Interface, Business And Services Instructor In - 11/26/2005 3:[address] [address] [facility] OPERATION RECORD Med Rec No.: [id number] Date: 07/14/2002 Name: Carlos Burns ATTENDING SURGEON: Fozia Crawford M.D., Ph.D. HOSE HANDLER: Med Gu M.D. PREOPERATIVE DIAGNOSIS: Rhegmatogenous retinal [...] stable condition. Fozia Crawford M.D., Ph.D. JS:x54 [id number] signed by Renetta, Business And Services Instructor In at 11/26/2005 3:10 VALENTINO Duong umented [...] | Transcriptions | + + | Interface, Business And Services Instructor In - 11/26/2005 3:10 AM PDT | | [place] [address] | | [place], [place] [address] | | [facility] RECORDMed Rec No.: | | [id number] Date: 07/14/2002Name: Carlos Burns SURGEON: | | Fozia Crawford M.D., Ph.D.HOSE HANDLER: Med | | [place] Gu.PREOPERATIVE DIAGNOSIS:Rhegmatogenous retinal [...] | | Jun Crawford M.D., Ph.D.JS:x54D: 07/14/2002T: 07/16/[id number] | |attention was directed towards the right [...] | |JS:x54 | | | | | |[id number] | + + documented in this encounter Visit Diagnoses Not on filedocumented in this encounter"
--- OUTSIDE RECORDS SUMMARY | ~2020-03-03 | XMS | Encounter Summary ---
Demographics + + + | Address | [address] | | | [place] [address] | + + + | Home Phone | | + + + | Preferred Language | Unknown | + + + | Marital Status | | + + + | Zoroastrian Affiliation | Unknown | + + + | Race | White | + + + | Ethnic Group | Not or | + + + Author + + + | Author | [facility] | | | and [place] | + + + | Organization | [facility] | | | [...] Team Providers + +------+ + | Care Mining Support Worker Name | Role | Phone [...] | | | pulmonary | [address] | [address] [place] | | | | | disease, | St [place] | [place], [place] | | | | | unspecified | [place], [place] | [address] Phone: | | | | | COPD type | [address] | [phone] | | | | | ([facility]) | Phone: | Fax: | | | | | | [phone] | [phone] | | | | | | Fax: | | | | | | | [phone] | | +--------+ + + + + [...] | | | Unspecified | Herlinda | Maixmilian | | | | | atrial | SHAHEEN Mckeon | MD Jon | | | | | fibrillation | [address] | [address] | | | | | ([facility]) | [address] | [address] | | | | | Procedures | [place], | [place] | | | | | ON [address] | [place] | [address] Phone: | | | | | | [address] | [phone] | | | | | | Phone: | Fax: | | | | | | [phone] | [phone] | | | | | | Fax: | | | | | | | [phone] | | +--------+--------+ + + + + Encounter Details +--------+---------+ + + + | Date | Type | Department | Care Team | Description | +--------+---------+ + + + | 04/09/ | Office | [facility] | Lois Maximilian | Chronic obstructive | | 2018 | Visit | CARDIOLOGY [address] | MD Jon [address] | pulmonary disease, | | | | [address] [place], | [address] [place] | unspecified COPD | | | | [place] [address] | [place] [address] | type (HCC) (Primary | | | | [phone] | [phone] | Dx) | | | | | [...] BACK SURGERY 1981 Lower back COLONOSCOPY 09/23/2013 [facility] ENDOSCOPY 08/10/2013 [facility] ERCP N/A 08/14/2017 Procedure: ERCP; Surgeon: Jamey Hdz MD; Location: [facility] MEDICAL PROCEDURE UNIT HIP FRACTURE SURGERY [...] SURGICAL HISTORY Endobiliary stent placed at [facility] Removal of lesion Right 2010 Right [...] made to ensure accuracy; however, inadvertent computerized associate buyer errors may be pre sent. Electronically signed [...]
--- OUTSIDE RECORDS SUMMARY | ~2020-03-03 | XMS | Encounter Summary ---
Demographics + + + | Address | [address] | | | [place] [address] | + + + | Home Phone | | + + + | Preferred Language | Unknown | + + + | Marital Status | | + + + | Protestant Affiliation | NON | + + + [...] Team Providers + +------+ + | Care Programming Development Project Manager Name | Role | Phone | [...] | | [address] | [place], [place] | | | | | [address], | [address] | | | | | 4th floor [place], | [phone] | | | | | [place] [address] | | | | | | [phone] | | | +--------+ + + + [...]
--- OUTSIDE RECORDS SUMMARY | ~2020-03-03 | XMS | Encounter Summary ---
Demographics + + + | Address | [address] | | | [place] [address] | + + + | Home Phone | | + + + | Preferred Language | Unknown | + + + | Marital Status | | + + + | Holiness Affiliation | Unknown | + + + | Race | White | + + + | Ethnic Group | Not or | + + + Author + + + | Author | [facility] | | | and [place] | + + + | Organization | [facility] | | | [...] Team Providers + +------+ + | Care Lay Out Machine Operator Name | Role | Phone [...] | | | | | | | [place] ERCP DX | | | | | | | COLLECTION | | | | | | | SPECIMEN | | | | | | | BRUSHING/WAS | | | | | | | [place] | | | | | | | ERCP | | | | | | | BILIARY/PANC | | | | | | | DUCT STENT | | | | | | | EXCHANGE | | | | | | | W/DIL&WIRE | | | | | | | [place] | | | | | | | [...] + + | 08/14/ | Hospital | [facility] | Jamey Hdz | | | 2018 | Encounter | MED CTR XRAY [address] | MD Sarkis [address] | | | | | [place] | [address] [place] | | | | | [place] [address] | [place] [address] | | | | | [phone] | [phone] | | | | | | | [...]
--- OUTSIDE RECORDS SUMMARY | ~2020-03-03 | XMS | Encounter Summary ---
Demographics + + + | Address | [address] | | | [place] [address] | + + + | Home Phone | | + + + | Preferred Language | Unknown | + + + | Marital Status | | + + + | Jain Affiliation | Unknown | + + + | Race | White | + + + | Ethnic Group | Not or | + + + Author + + + | Author | [facility] | | | and [place] | + + + | Organization | [facility] | | | [...] Team Providers + +------+ + | Care Puncher Name | Role | Phone | [...] | | 2002 - | Encounter | [facility] | [address] | PITER | | | | INPATIENT | [place], [place] | | | 03/09/ | | REHABILITATION [address] | [address] | | | 2002 | | MONIKA MIRZA | [phone] | | | | | [place], [place] | | | | | | [address] | | | | | | [phone] | | | +--------+ + + + [...]
--- OUTSIDE RECORDS SUMMARY | ~2020-03-03 | XMS | Encounter Summary ---
Demographics + + + | Address | [address] | | | [place] [address] | + + + | Home Phone | | + + + | Preferred Language | Unknown | + + + | Marital Status | | + + + | Sabianism Affiliation | NON | + + + | Race | White | + + + | Ethnic Group | Not or | + + + Author + + + | Author | [facility] | + + + | Organization | [facility] | + + + | Address | Unknown | + + + | Phone | Unavailable | + + + Support + + +---------+ + | Name | Relationship | Address | Phone | + + +---------+ + | None Per Pt | ECON | Unknown | Unavailable | + + +---------+ + Care Team Providers + +------+ + | Care Ice Cream Truck Driver Name | Role | Phone [...] | | 2018 | | Center at [facility] [address] | MD Rashida [address] [facility] | Received (07/16/2017- | | | | [facility] | [facility] | Current ED | | | | for Health and | [place], [place] | Admission Notes, | | | | [facility], [facility] [address] | [address] | Labs, Imaging | | | | [facility] [place] | [phone] | Reports and Surgery | | | | [address] | | Report with | | | | [phone] | | Pathology- St. | | | [...]
--- OUTSIDE RECORDS SUMMARY | ~2020-03-03 | XMS | Encounter Summary ---
Demographics + + + | Address | [address] | | | [place] [address] | + + + | Home Phone | | + + + | Preferred Language | Unknown | + + + | Marital Status | | + + + | Hindu Affiliation | Unknown | + + + [...] Team Providers + +------+ + | Care Tractor Trailer Truck Driver Name | Role | Phone [...] | | | | | | | LA ERCP DX | | | | | | | COLLECTION | | | | | | | SPECIMEN | | | | | | | BRUSHING/WAS | | | | | | | JOSE LA | | | | | | | ERCP | | | | | | | BILIARY/PANC | | | | | | | DUCT STENT | | | | | | | EXCHANGE | | | | | | | W/DIL&WIRE | | | | | | | LA | | | | | | | [...] | | | | | [address] [place] | | | | | [place], [place] | [place] [address] | | | | | [address] | [phone] | | | | | [phone] | | | +--------+---------+ + + + [...] of ascending cholangitis and sepsis, treated at [facility]. Had ERCP with sphin cterotomy, stone extraction, and stent placement on 06/26/17. He underwent cholecystectomy in [place] and on the IOC there were possible [...] BACK SURGERY 1981 Lower back COLONOSCOPY 09/23/2013 [facility] ENDOSCOPY 08/10/2013 [facility] HIP FRACTURE SURGERY Left 2002 Pinning. Repeat in 2003 INGUINAL HERNIA REPAIR 2007 KNEE SURGERY 1968 KNEE SURGERY Right 1967 Open fracture reduction and internal fixation right knee in 1967 LAMINECTOMY Leg surgery Left 1959 Seven Reconstructive surgeries on his left leg and foot in the with metal remaining . LUMBAR VERTEBRAL FUSION OTHER SURGICAL HISTORY Endobiliary stent placed at [facility] Removal of lesion Right 2009 [...] Class 2 (upper half of tonsil fossa) [place] Society of Anesthesia Grade:ASA 2 - A [...] Electronically Signed by: Jamey Penny MD 08/14/2017 [facility] VERIFICATION OF CONSENT (PARQ) The patient was counseled regarding the procedure, its indications, risks, potential compli cations and alternatives. Any questions were answered. Consent was obtained. Jamey Penny MD, 08/14/2017 12:59 [facility] Portions of this chart may have been created with [employer] voice recognition software. Occasi onal wrong-word or [...] INSTRUCTIONS Patient: William Burns : 1935 Acct: [id number] Exam Date: Monday, August 14, 2017 Doctor: [...] 1 day. Avoiding fatty foods such as Occitan [place], hamburgers, kirkland, ham and pork products, will [...] 08/14/2017 | [facility]OVATION | | 12:57 PMMRN: [id number] #: [id number] of : | | | 1935dm Type: AmbulatoryAge: 82Room: [facility] 02Gender: MaleNote | | | Status: FinalizedAttending MD: [facility]Y PENNY [facility] | | | ERCPIndications: Bile duct stone(s), Biliary stent | | | removalProviders: JAMEY PENNY MD, Kiah Orozco, | | | RN, Klaus Loco CMA, Vani Wisdom, | | | Secondary School Registrar, Yinka Dominguez MD | | | (Anesthesia [...] the procedure well.Findings: A | | | oil process stillman film of the abdomen was obtained. Surgical [...] | | was it seen on the oil process stillman image. - Several filling defects | | [...] PMScope Out: | | | 1:58:46 PM [facility], [address] [place] [address], | | | [place] [address] | | | - KUB today to [...] |Scope Out: 1:58:46 PM | | | [facility], [facility], [place], [place] | | | [address] | | + + -+ + +---------+ [...] | | | Anticoagulation Range: | | [facility] | | | | 2.0 - 3.0High [...] [address] | [place] | [phone] | | [facility] | | [address] | | | - LABORATORY | | [...] 108 | 70 - 109 mg/dL | [facility] | | | [facility] | | | [facility] | [facility]ICAL | | | | | | CENTER - | | | | | | LABORATORY | | + + + + + + | BUN | 13 | 7 - 18 mg/dL | [facility] | | | [facility] | [facility] | | | | | | MEDICAL | | | | | | CENTER - | | | | | | LABORATORY | | + + + + + + | Creatinine | 0.85 | 0.60 - 1.30 | [facility] | | | | | mg/dL | [facility] | | | | | | MEDICAL | | | | | | CENTER - | | | | | | LABORATORY | | + + + + + + | eGFR, | >60Comment: GLOMERULAR | >=60 | [facility] | | | non- | FILTRATION | mL/min/1.73m2 | [facility] | | | [place] | RATE,ESTIMATED | | MEDICAL | | | | mL/min/1.11l7Gozz than | | CENTER - | | [...] 4.0 | 3.2 - 5.0 g/dL | [facility] | | | | | | ST. [...] | appended report. These | | [facility] | | | | results have [...] | appended report. These | | [facility] | | | | results have [...] | appended report. These | | [facility] | | | | results have [...] | bulin Ratio | | | [facility] | [...] [address] | [place] | [phone] | | [facility] | | [address] | | | - LABORATORY | | [...] | + + + + + | [facility] | [address] | [place], [place] | [phone] | | [facility] | | [address] | | | - LABORATORY | | [...]
--- OUTSIDE RECORDS SUMMARY | ~2020-03-03 | XMS | Encounter Summary ---
Demographics + + + | Address | [address] | | | [place] [address] | + + + | Home Phone | | + + + | Preferred Language | Unknown | + + + | Marital Status | | + + + | Taoist Affiliation | Unknown | + + + | Race | White | + + + | Ethnic Group | Not or | + + + Author + + + | Author | [facility] | | | and [place] | + + + | Organization | [facility] | | [...] Team Providers + +------+ + | Care Message Clerk Name | Role | Phone | [...] | | | | CENTER [address] | [place], [place] | complication, | | | | [place], [place] | [address] | initial encounter | | | | [address] | | (Primary Dx); Fall | | | | [phone] | | from slip, trip, or | [...] Care Everywhere.Laceration, Chi n, Suture or Tape (Algerian)documented in this encounter Medications at Time of [...] might be different fr om the original. [facility] Emergency Department Encounter Note [address] [place] [id number] PCP:SHAHEEN Toro ED15 CHIEF COMPLAINT: Chief Complaint [...] Past Medical History: Diagnosis Date Atrial fibrillation ([facility]) Backache Bronchitis Bundle branch block, right Calculus of bile duct with acute cholecystitis with obstruction Choledocholithiasis Chronic obstructive pulmonary disease (COPD) ([facility]) Crush injury lower extremities 1966 Left leg and foot Cutaneous abscess of chest wall Disease of sebaceous glands Diverticulosis Diverticulosis of colon Epidermal cyst Epigastric pain Esophageal ulcer with bleeding GERD (gastroesophageal reflux disease) Hip fracture ([facility]) 2003 Left Hyperlipidemia Inflamed seborrheic [...] 09/23/2013 [facility] ENDOSCOPY 08/10/2013 [facility] ERCP N/A 08/14/2017 Procedure: ERCP; Surgeon: Jamey Hdz MD; Location: [facility] HIP FRACTURE SURGERY [...] OTHER SURGICAL HISTORY Endobiliary stent placed at [facility] Removal of lesion Right 2009 [...] pleasant and talkative, alert and appropriate, conversant [facility] nurse and staff. HEENT: Atraumatic, patient follows [...] were reviewed along with EMS notes and retirement record s if applicable. Medication and Allergy lists reviewed in [facility]. Nurses note and old record s were reviewed if available within [facility] ER course 18:11 - Patient [...] Certified Why: If symptoms worsen Contact information: [address] [place] [address] New Prescriptions No medications on file Discontinued Medications No medications on file Discharge References/Attachments Laceration, Chin, Suture or Tape (Algerian) Portions of this chart may have been created with [employer] voice recognition software. Occasi onal wrong-word or [...] | | + +--------+ +---------+------+ + | zbtixof-haprvvwlnt-vtzytayzy | Given | 02/18/20 | 0.5 mLs [...]
--- OUTSIDE RECORDS SUMMARY | ~2020-03-03 | XMS | Encounter Summary ---
Demographics + + + | Address | [address] | | | [place] [address] | + + + | Home Phone | | + + + | Preferred Language | Unknown | + + + | Marital Status | | + + + | Presybeterian Affiliation | Unknown | + + + | Race | White | + + + | Ethnic Group | Not or | + + + Author + + + | Author | [facility] | | | and [place] | + + + | Organization | [facility] | | [...] Team Providers + +------+ + | Care Creative Specialist Name | Role | Phone | [...] | | | | | [address] | [place], [place] | | | | | [place], [place] | [address] | | | | | [address] | | | | | | [phone] | | | +--------+ + + + [...] [address] Juanpablo | | eral | kgto-jho-tbzgbq catheter system; | Precious Remy RN | Betty eRy RN | | IV | 18 gauge; [...] EVALUATION William Burns 82 y.o. male 1935 [id number] Procedure(s) ERCP (N/A Mouth) Cooperates? Yes Mental [...] signed by Tono Dominguez MD 08/14/2017 18:40 [facility] nesthesia Procedure Notes - Tono Dominguez [...] EVALUATION William Burns 82 y.o. male 1935 [id number] Procedure(s): ERCP (N/A Mouth) Review of Systems [...]
--- OUTSIDE RECORDS SUMMARY | ~2020-03-03 | XMS | Encounter Summary ---
Demographics + + + | Address | [address] | | | [place] [address] | + + + | Home Phone | | + + + | Preferred Language | Unknown | + + + | Marital Status | | + + + | Sabianism Affiliation | Unknown | + + + | Race | White | + + + | Ethnic Group | Not or | + + + Author + + + | Author | [facility] | | | and [place] | + + + | Organization | [facility] | | [...] Team Providers + +------+ + | Care Dyed Raw Stock Blower Feeder Name | Role | Phone | [...] + + | 07/26/ | Telephone | [facility] | Jamey Hdz | Care Coordination | | 2017 | | GASTROENTEROLOGY | MD Sark[address] | | | | | [address] TREASURE | [address] [facility] | | | | | [address] [place], [place] | [place] [address] | | | | | [address] | [phone] | | | | | [phone] | | | +--------+ + + + [...] Star cole, the patient's general surgeon in [place]. Dr. Neumann is requesting an ERCP for [...]
--- OUTSIDE RECORDS SUMMARY | ~2020-03-03 | XMS | Encounter Summary ---
Demographics + + + | Address | [address] | | | [place] [address] | + + + | Home Phone [...] Team Providers + +------+ + | Care Sld Inclusion Teacher Name | Role | Phone | [...] | | [address] | [place], [place] | | | | | [place], | [address] | | | | | 4th floor [place], | [phone] | | | | | [place] [address] | | | | | | [phone] | | | +--------+ + + + [...]
--- OUTSIDE RECORDS SUMMARY | ~2020-03-03 | XMS | Encounter Summary ---
Demographics + + + | Address | [address] | | | [place] [address] | + + + | Home Phone [...] Team Providers + +------+ + | Care Top Dyeing Machine Tender Name | Role | Phone | [...] | | | | | [place], | [place], [place] | | | | | [place] [address] | [address] | | | | | [phone] | [phone] | | | | | | | [...] Recinos MD - 06/11/2018 10:00 AM PST [facility] Facility Intake Exam - Anna Thomas "Carlos" James Burns is a 83 y.o. male with a PMH significant for prior L THR, SVT, HT N, COPD (non-O2 dependent), prior UGIB. He is admitted to [facility] for skilled therapy following a hospitalization at [facility] from 05/31 to 06/06 for Left Acetabular Fracture in the setting of a prior THR. Hospital course was significant for: Carlos was transferred to [facility] from [facility] on 05/31 for management of [...] independent at baseline. He was brought to [facility] given his medical comorbidities and peyton rn [...] to visit (already scheduled for 07/02/18 at [facility] ). His course was c/b bloating [...] blood in stool, unlikely that EGD would manager of change. He was also seen by the Geriatrics [...] 06/27/2017 Aspiration pneumonitis (HCC) 06/28/2017 Atrial fibrillation ([facility]) 08/13/2017 Choledocholithiasis 06/26/2017 Closed fracture of anterior column of left acetabulum with routine healing 06/11/2018 COPD (chronic obstructive pulmonary disease) ([facility]) Diverticulosis of colon 01/01/2007 Overview: Note: Unchanged GERD (gastroesophageal reflux disease) 08/13/2017 GI bleed 2013 esophageal ulcer s/p clipping 2013 HTN (hypertension) Klebsiella sepsis ([facility]) 06/27/2017 Normocytic anemia Hgb around 11 in [...] x 2 since arriving at [facility]) - Continue Mucinex BID per home regimen [...] PGY1 GENERAL INTERNAL MEDICINE AT OFFSITE Pager: [phone] Associated attestation - Crystal Evans MD - [...] the following additions/clarifications/exceptions: none Crystal Evans MD [facility] Division of Internal Medicine and Geriatrics [...]
--- OUTSIDE RECORDS SUMMARY | ~2020-03-03 | XMS | Encounter Summary ---
Demographics + + + | Address | [address] | | | [place] [address] | + + + | Home Phone [...] + + + | Author | [facility] | + + + | Organization | [facility] | + + + | Address | Unknown | + + + | Phone | Unavailable | + + + Support + + +---------+ + | Name | Relationship | Address | Phone | + + +---------+ + | None Per Pt | ECON | Unknown | Unavailable | + + +---------+ + Care Team Providers + +------+ + | Care Stenotypist Name | Role | Phone | + [...] | [address] | MD [address] | | | | | [address] Mailcode: [id number] | [place], | | | | | [place], [place] | [place] [address] | | | | | [address] | [phone] | | | | | [phone] | | | +--------+ + + + [...]
--- OUTSIDE RECORDS SUMMARY | ~2020-03-03 | XMS | Encounter Summary ---
Demographics + + + | Address | [address] | | | [place] [address] | + + + | Home Phone [...] Team Providers + +------+ + | Care Histological Illustrator Name | Role | Phone | + +------+ + | Herlinda Maldonado | PCP | | + +------+ + Encounter Details +--------+ + + + + | Date | Type | Department | Care Team | Description | +--------+ + + + + | 06/28/ | Document-Sc | Health Information | Other, Faculty | | | 2018 | anned | Services 2011 | [phone] | | | | | [address] | | | | | | Mailcode: [id number] | | | | | | [facility] | | | | | | [place], [place] | | | | | | [address] | | | | | | [phone] | | | +--------+ + + + [...]
--- OUTSIDE RECORDS SUMMARY | ~2020-03-03 | XMS | Encounter Summary ---
Demographics + + + | Address | [address] | | | [place] [address] | + + + | Home Phone [...] Team Providers + +------+ + | Care Ropewalk Rope Maker Name | Role | Phone | [...] | | | | | Choledocholi | [address] | | | | | thiasis | [address]itesh Pérez | Mineral | | | | | Procedures | [place] | [place], [address]th | | | | | CONSULT TO | [place], [place] | floor | | | | | GI | [address] | [place], [place] | | | | | PROCEDURE: | Phone: | [phone] | | | | | ERCP / | [phone] | Phone: | | | | | BILIARY | Fax: | [phone] | | | | | MANOMETRY | [phone] | Fax: | | | | | | | [phone] | +--------+--------+ + + + + Encounter Details +--------+ + + + + | Date | Type | Department | Care Team | Description | +--------+ + + + + | 06/27/ | Him Clerk | Digestive Health | Lyla Mendoza | Choledocholithiasis | | 2018 | | [place] [address] | MD Rashida [address] [facility] | (Primary Dx) | | | | [address] [facility] | [facility] [address] | | | | | for [facility] and | [place], [place] | | | | | [facility], [facility] [address] | [address] | | | | | [facility] [place] | [phone] | | | | | [address] | | | | | | [phone] | | | +--------+ + + + [...]
--- OUTSIDE RECORDS SUMMARY | ~2020-03-03 | XMS | Encounter Summary ---
Demographics + + + | Address | [address] | | | [place] [address] | + + + | Home Phone | | + + + | Preferred Language | Unknown | + + + | Marital Status | | + + + | Confucianism Affiliation | Unknown | + + + | Race | White | + + + | Ethnic Group | Not or | + + + Author + + + | Author | [facility] | | | and [place] | + + + | Organization | [facility] | | | [...] Team Providers + +------+ + | Care Trolley Cleaner Name | Role | Phone | [...] [place] | | | | | | [address] | | | | | | [phone] | | | +--------+ + + + [...]
--- OUTSIDE RECORDS SUMMARY | ~2020-03-03 | XMS | Encounter Summary ---
Demographics + + + | Address | [address] | | | [place] [address] | + + + | Home Phone [...] + + + | Author | [facility] | | | and [place] | + + + | Organization | [facility] | | [...] Team Providers + +------+ + | Care Graphite Pan Drier Tender Name | Role | Phone | [...] | | | | [address] [place] | [place] [address] | | | | | [address] | | | | | | [phone] | | | +--------+ + + + [...]
--- OUTSIDE RECORDS SUMMARY | ~2020-03-03 | XMS | Encounter Summary ---
Demographics + + + | Address | [address] | | | [place] [address] | + + + | Home Phone [...] Team Providers + +------+ + | Care Auto Heater Mechanic Name | Role | Phone | [...] | | | | | [place], | | | | | | [place] [address] | | | +--------+--------+ + + + [...]
--- OUTSIDE RECORDS SUMMARY | ~2020-03-03 | XMS | Encounter Summary ---
Demographics + + + | Address | [address] | | | [place] [address] | + + + | Home Phone [...] Team Providers + +------+ + | Care Laboratory Mechanical Technician Name | Role | Phone | [...] Order | [address] | [facility], | | | | | [address] | [place] [address] | | | | | [place], | [phone] | | | | | 4th floor [place], | | | | | | [place] [address] | | | | | | [phone] | | | +--------+ + + + [...] + | MRN: | BETTINA | | [id number] Date: 06/27/2017Patient Name: William BurnsDannielle #: | ENDOSCOPY | | [id number] of : 1935SN: [id number] Type: | | | InpatientRoom: SORProcedure: ERCPIndications: | | | For therapy of ascending cholangitis; 82 yo M with | | | sepsis, elevated LFTs and US showing mary dil and 1.3 cm | | | CBDProviders: RENE | | | Thompson MALDONADO MD (Doctor), JORDY SOLANO, | | | RN (Nurse), ESTELA DAMIAN RN (Enrollment Processor)Referring MD: | | | Requesting Provider: Medicines: [...] The | | | Olympus [id number] Duodenoscope #[id number] was | | | introduced through the [...] with acute | | | cholangitis. The stock and station agent film was normal. The esophagus was | [...] 06/27/2017 6:38 [facility] Letter to: LANA MATHEWS MD | [...]
--- OUTSIDE RECORDS SUMMARY | ~2020-03-03 | XMS | Encounter Summary ---
Demographics + + + | Address | [address] [facility] | | | [place] [address] | + + + | Home Phone [...] + + | Author | [facility] | | | and [place] | + + + | Organization | [facility] | | | and [...] Team Providers + +------+ + | Care Mill Tender Second Operator Name | Role | Phone | + +------+ + PCP | Unavailable | + +------+ + Encounter Details +--------+ + + + + | Date | Type | Department | Care Team | Description | +--------+ + + + + | 08/10/ | Hospital | [facility] | Sudeep Sarabia, | GI bleed; Lower | | 2013 - | Encounter | [facility] | MD Carlos MIRZA | abdominal pain; HTN | | | | CLINICAL DECISION | [place] [id number] | (hypertension) | | 08/13/ | | UNIT Carlos [facility] | [phone] | | | 2013 | | [place], [place] | | | | | | [address] | | | | | | [phone] | | | +--------+ + + + [...] 1735 Date of Service: 08/13/1343 Status: Signed Boiler Repairman: Iban Medina MD (Physician) Related Notes: Original Note by Iban Medina MD (Physician) filed at 08/13/13 1524 HOSPITALIST DISCHARGE SUMMARY Patient ID: William Hurst [id number] 78 y.o. 1935 Admit date: 08/10/2013 Discharge [...] loss. The patien t was brought to [facility] and was transferred to [facility] for a GI evaluation. Dr. Ball from gastroenterology was consulted because of the ac [place] GI bleed. The patient was started on [...] are the prescriptions that you need to order picker. You may get these medications from any pharmacy. furosemide 40 MG tablet omeprazole 20 MG capsule Activity: activity as tolerated Diet: cardiac Follow up: Daryl Mathews MD [address] [place] [address] [place] [address] Schedule an appointment as soon as possible for a visit Perry Ball MD [address] [facility] [address] In 2 weeks Discharge took approximately 40 [...] Date of Service: 08/13/13 1220 Status: Signed Boiler Repairman: Danielle Rubin RN (Registered Nurse) Pt ready for DC. All DC instructions given and understood, at bedside, pt enjoying roxane ch informed to call when through to be wheeled out. Danielle Rubin RN onver audrey Transaction, Provider Unknown - 08/12/2013 3:02 PM PDT Case Management by Diane Hightower RN at 08/12/13 1500 Author: Diane Hightower RN Service: (none) Author Type: Registered Nurse Filed: 08/12/13 1504 Date of Service: 08/12/13 1502 Status: Addendum Boiler Repairman: Diane Hightower RN (Registered Nurse) Related Notes: [...] Notes by Iban Medina MD at 08/12/13 0841 Author: Iban Medina MD Service: Hospitalist Author Type: Physician Filed: 08/12/13 1313 Date of Service: 08/12/13846 Status: Signed Boiler Repairman: Iban Medina MD (Physician) [facility] Service: Hospitalist Progress Note Hospital Day: [...] hours No results found for this basename: PHART:3,PO2ART:3,NGT2EIV:3,N7RQDDWI:3,BEART:[address] 168 hours Lab [...] 08/12/131929 Date of Service: 08/11/131913 Status: Signed Boiler Repairman: Perry Ball MD (Physician) Related Notes: Original Note by Perry Ball MD (Physician) filed at 08/11/[address] [facility] Service: Gastroenterology Progress Note Hospital Day: [...] 7:04 PM PDT Progress Notes by Alexys Noaln MD at 08/11/131903 Author: Alexys Nolan MD Service: (none) Author Type: Physician Filed: 08/11/131929 Date of Service: 08/11/131903 Status: Addendum Boiler Repairman: Alexys Nloan MD (Physician) Related Notes: Original Note by Alexys Nolan MD (Physician) filed at 08/11/131909 [facility] Service: Hospitalist Progress Note Hospital Day: [...] Date of Service: 08/11/13 0657 Status: Signed Boiler Repairman: Milton Khoury RN (Registered Nurse) Pt has [...] 08/10/132216 Date of Service: 08/10/132216 Status: Signed Boiler Repairman: Lashawn Soria RPH (Pharmacist) Clinical Pharmacy Note: [...] Author: MICHAEL Mc Service: (none) Author Type: Tourist Escort Filed: 08/10/132133 Date of Service: 08/10/132130 Status: Signed Boiler Repairman: MICHAEL Mc (Tourist Escort) 08/10/132129 Discharge Planning Evaluation Admitting Diagnosis GIB Readmission No Living Arrangements Spouse/significant other Support Systems Spouse/significant other;Children Type of Residence Private residence House type House-1 story Bathrooms on 1st Floor 1-Full Independent with ADL's Yes Independent with Mobility Yes Home Care Services No Caregiver after Discharge Yes Caregiver Name Camryn Hurst Relationship to Patient Spouse Phone number [phone] Mental Status Oriented Power of Homicide Detective Yes Power of Homicide Detective Name Camryn Hurst Power of Homicide Detective Resources Financial concerns No Transportation issues No Patient/Family concerns No Prescription Plan Yes Met with pt to discuss discharge planning. Pt is a 78 y.o., male who lives with his in a private residence in [place]. Pt is independent and very active. Pt reports he mows h is own grass and cares for his chickens. Pt is independent with ADLs, uses no DME, has never used HH. Pt is not on O2/cpap/bipap. He is not engaged in o/p medical services. Pt reports his will come to [facility] in the morning. Pt has no family in [facility]. His Dtr Radha Renteria lives near him in [place]. Pt denies d/c needs at this time. Patient's PCP is: DARYL MATHEWS Patient's insurance: [place] [facility] Coverage concerns: n/a Medication coverage/concerns: [...] Service: (none) Author Type: Physician Filed: 08/10/13 0100 Date of Service: 08/10/131928 Status: Signed Boiler Repairman: Sudeep Sarabia MD (Physician) Related Notes: Original Note by Sudeep Sarabia MD (Physician) filed at 08/10/132024 [facility] Service: Hospitalist Admission History & Physical [...] initially the hospital that was admitting him [facility] the patient might have had lower gastrointestinal [...] with p.r.n. doses of Prilosec and perhaps tmrf-oxz-iczglex Tums. He sta denise that his indigestion occurs when he eats food such as tomato sauce containing foods or s picy sauce. These symptoms have been ongoing for the past 10 years or so. There was no escal ation of these symptoms in the recent past. The patient was initially brought by emergency room to [facility]. Due to lack of beds, as reported by the patient, he was transferred to [facility] for further evaluation. His CMP from [facility] in [place] showed sodium 138, potass ium 4.7, chloride [...] was 17.8 (normal 4.5 to 9.8) at [place] lab. Troponin I was less than 0.1, which was negative. A 12-lead EKG at [facility] showed normal sinus rhythm with a rate of 66 beats per minute, incomplete right bundle bran ch block, no acute ST or T-wave changes to suggest ischemic process. The patient was evaluated at [facility] Emergency Room by . T he patient had no further episodes of hematemesis or lower gastrointestinal bleeding. His r epeat H and H were 11.8 and 35.6 respectively. CMP was fairly unchanged from the one obtaine d at [place]. the patient is being admitted to our [...] male who was transferred via EMS from [facility] in [place] with the followin. Gastrointestinal bleed. The patient [...] in thi s encounter Consult Notes Perry Blal - 08/10/2013 7:22 PM PDT Consult* by Perry Ball MD at 08/10/131921 Author: Perry Ball MD Service: Gastroenterology Author Type: Physician Filed: 08/12/131929 Date of Service: 08/10/131921 Status: Signed Boiler Repairman: Perry Ball MD (Physician) Related Notes: Original Note by Perry Ball MD (Physician) filed at 08/10/[address] [facility] Service: Gastroenterology Initial Consult Note Moderate [...] [facility] The patient had breakfast without having any problem. He later felt bad, which was nonsp ecific. At about 10:00 a.m., the patient had an urge to vomit. He went to the rest room. He felt dizzy, sweating, and then he vomited red blood clots once. After that, the patient was brought to [facility]. He had blood test done. The blood test done and CT scan of the abdomen and pelvis were done. He was then sent to [facility] for fur ther evaluation. At [facility], the patient had pain across the [...] presented with one episode of hematemesis. At ct esent, the patient had stable hemodynamic status. [...] 08/10/131919 Date of Service: 08/10/131919 Status: Signed Boiler Repairman: Francisco Hall RN (Registered Nurse) GI doctor at bedside for eval. Francisco Hall RN 08/10/131919 onver audrey Transaction, Provider Unknown - 08/10/2013 6:19 PM PDT ED Notes by Francisco Hall RN at 08/10/131818 Author: Francisco Hall RN Service: (none) Author Type: Registered Nurse Filed: 08/10/131818 Date of Service: 08/10/131818 Status: Signed Boiler Repairman: Francisco Hall RN (Registered Nurse) Patient given [...] 08/10/131757 Date of Service: 08/10/131757 Status: Signed Boiler Repairman: Francisco Hall RN (Registered Nurse) Dr. White at bedside. Francisco Hall RN 08/10/131757 Sudeep Edmond MD - 08/10/2013 5:55 PM PDT ED Provider Notes by Sudeep White MD at 08/10/131754 Author: Sudeep White MD Service: (none) Author Type: Physician Filed: 08/13/13 1410 Date of Service: 08/10/131754 Status: Signed Boiler Repairman: Sudeep White MD (Physician) Procedure Orders: 1. POCT occult blood stool [[id number]] ordered by Christos Faith at 08/10/[address] [facility] Department of Emergency Medicine Provider Row Name 08/10/13 1614 08/10/13 1543 Pre-arrival Provider Pre-arrival Provider Another ED [facility] -- Provider Name SARI HernandezTroy Springer Pertinent [...] male who was transferred to ED from [facility] with a CC of hematemesis, for [...] Procedure: ESOPHAGOGASTRODUODENOSCOPY; Surgeon: Perry Ball MD; Location: [facility]; Service: Gastroenterology; Laterality: N/A; Prior to [...] Department Course 5:57 PM Pt transferred from [facility] with upper GI bleed and hematemesis. I will order for repeat blood count, check liver enzymes, INR, aPTT, GI consult, and arrange for pt admi ssion. 6:02 PM Hemoccult performed. (See procedure for details). 6:08 PM Reviewed work-up and records from [facility]. They diagnosed the pt with having an Upper GI bleed, which is not supported by the hx or exam. CT of abd was normal. Lab work from [facility] was not significant. Mildly anemic. I [...] Value Ref Range Date/Time Complete Metabolic Panel [[id number]] (Abnormal) Collected:08/10/131814 Order Status:Completed Updated:08/10/131853 Specimen Information:Blood [...] 65 U/L EGFR >60 >60 mL/min/1.73m2 Lipase [[id number]] (Abnormal) Collected:08/10/131814 Order Status:Completed Updated:08/10/131853 Specimen Information:Blood LIPASE 66 (L) 73 - 393 U/L CBC w Auto Diff [[id number]] (Abnormal) Collected:08/10/131814 Order Status:Completed Updated:08/10/131839 Specimen Information:Blood [...] RBC AND PLT MORPHOLOGY APPEAR NORMAL PT [[id number]] Collected:08/10/131814 Order Status:Completed Updated:08/10/131838 Specimen Information:Blood INR 1.1 PTT [[id number]] (Abnormal) Collected:08/10/131814 Order Status:Completed Updated:08/10/131838 Specimen Information:Blood [...] visit [address] [place] [address] Perry Ball MD In 2 weeks [address] [facility] [address] Discharge Medications: New Prescriptions OMEPRAZOLE (PRILOSEC) 20 [...] 08/10/131745 Date of Service: 08/10/131744 Status: Addendum Boiler Repairman: Francisco Hall RN (Registered Nurse) Related Notes: [...] 08/10/131744 Date of Service: 08/10/131744 Status: Signed Boiler Repairman: Francisco Hall RN (Registered Nurse) Bed:12
Expected date:
Expected time:
Means of arrival:
Comments:
[facility] onver audrey Transaction, Provider Unknown - 08/10/2013 5:30 PM PDT ED Notes by Rashmi Doe RN at 08/10/131729 Author: Rashmi Doe RN Service: (none) Author Type: Registered Nurse Filed: 08/10/131729 Date of Service: 08/10/131729 Status: Signed Boiler Repairman: Rashmi Doe RN (Registered Nurse) Stable, no change en route Rashmi Doe RN 08/10/131729 docume nted in this encounter Miscellaneous Notes Op Note - Perry Ball - 08/10/2013 9:56 PM PDT Op Note by Perry Ball MD at 08/10/132155 Author: Perry Ball MD Service: Gastroenterology Author Type: Physician Filed: 08/10/132204 Date of Service: 08/10/132155 Status: Addendum Boiler Repairman: Perry Ball MD (Physician) Related Notes: Original Note by Perry Ball MD (Physician) filed at 08/10/[address] [facility] Service: Gastroenterology ENDOSCOPY SUITE PROCEDURE NOTE [...] | Sudeep White MD 08/13/2013 2:10 PM [facility] | EXTERNAL LAB | | [facility] Department of Emergency Medicine Provider Row | [...] male who was transferred to ED from [facility] with a | | | CC [...] Perry Ball MD; | | | Location: [facility] ENDOSCOPY; Service: Gastroenterology; | | | Laterality: [...] PM | | | Pt transferred from [facility] with upper GI bleed and | | | hematemesis. I will order for repeat blood count, check liver | | | enzymes, INR, aPTT, GI consult, and arrange for pt admission. | | | 6:02 PM Hemoccult performed. (See procedure for details). 6:08 PM | | | Reviewed work-up and records from [facility]. They diagnosed the | | | pt with having an Upper GI bleed, which is not supported by the hx | | | or exam. CT of abd was normal. Lab work from [facility] was not | | | significant. [...] Date/Time Complete Metabolic | | | Panel [[id number]] (Abnormal) Collected:08/10/131814 Order | | | Status:Completed [...] | | EGFR >60 >60 mL/min/1.73m2 Lipase [[id number]] (Abnormal) | | | Collected:08/10/131814 Order Status:Completed Updated:08/10/13 | | | 1854 Specimen Information:Blood LIPASE 66 (L) 73 - 393 U/L | | | CBC w Auto Diff [[id number]] (Abnormal) Collected:08/10/131814 | | | Order Status:Completed [...] MORPHOLOGY APPEAR NORMAL | | | PT [[id number]] Collected:08/10/131814 Order Status:Completed | | | Updated:08/10/131838 Specimen Information:Blood INR 1.1 | | | PTT [[id number]] (Abnormal) Collected:08/10/131814 Order | | | Status:Completed [...] for a visit 1100 | | | [facility] [address] [place] [address] [facility] | | | MD Lanny In 2 weeks [address] [facility] [address] | | | [phone] Discharge Medications: New Prescriptions | | | [...] | | | | | [place] [address] | | | | + + + + + + | Non- | 3.58 (L)Comment: Testing | 4.20 - 5.70 | EXTERNAL | | | Red Blood | performed at [facility], [address] | M/uL | LAB | | | Cells | [address], | | | | | Counted | [place] [address] | | | | + + + + + + | Hemoglobin | 11.0 (L)Comment: Testing | 13.2 - 17.0 | EXTERNAL | | | | performed at [facility], [address] | g/dL | LAB | | | | [address], | | | | | | [place] [address] | | | | + + + + + + | Hematocrit, | 33.5 (L)Comment: Testing | 39.0 - 50.0 % | EXTERNAL | | | POC | performed at [facility], [address] | | LAB | | | | [address], | | | | | | [place] [address] | | | | + + + + + + | MCV | 93.6Comment: Testing | 80.0 - 100.0 fl | EXTERNAL | | | | performed at [facility], [address] | | LAB | | | | [address], | | | | | | [place] [address] | | | | + + + + + + | MCH | 30.7Comment: Testing | 27.0 - 34.0 pg | EXTERNAL | | | | performed at [facility], [address] | | LAB | | | | [address], | | | | | | [place] [address] | | | | + + + + + + | MCHC | 32.8Comment: Testing | 32.0 - 35.5 | EXTERNAL | | | | performed at [facility], [address] | g/dL | LAB | | | | [address], | | | | | | [place] [address] | | | | + + + + + + | RDW-CV | 43.3Comment: Testing | 37 - 53 fl | EXTERNAL | | | | performed at [facility], [address] | | LAB | | | | [address], | | | | | | [place] [address] | | | | + + + + + + | Platelet | 186Comment: Testing | 150 - 400 K/uL | EXTERNAL | | | Count | performed at [facility], [address] | | LAB | | | Plasma | [address], | | | | | | [place] [address] | | | | + + + + + + | MPV | 10.1Comment: Testing | fl | EXTERNAL | | | | performed at [facility], [address] | | LAB | | | | [address], | | | | | | [place] [address] | | | | + + + + + + | Differentia | AUTOMATEDComment: | | EXTERNAL | | | l Type | Testing performed at | | LAB | | | | [facility], [address] | | | | | | [place] | | | | | | [address] | | | | + + + + + + | % Segmented | 66.0Comment: Testing | % | EXTERNAL | | | | performed at [facility], [address] | | LAB | | | Neutrophils | [address], | | | | | | [place] [address] | | | | + + + + + + | % | 20.0Comment: Testing | % | EXTERNAL | | | Lymphocytes | performed at [facility], [address] | | LAB | | | | [address], | | | | | | [place] [address] | | | | + + + + + + | % Monocytes | 7.3Comment: Testing | % | EXTERNAL | | | | performed at [facility], [address] | | LAB | | | | [address], | | | | | | [place] [address] | | | | + + + + + + | % | 6.3Comment: Testing | % | EXTERNAL | | | Eosinophils | performed at [facility], [address] | | LAB | | | | [address], | | | | | | [place] [address] | | | | + + + + + + | % Basophils | 0.4Comment: Testing | % | EXTERNAL | | | | performed at [facility], [address] | | LAB | | | | [address], | | | | | | [place] [address] | | | | + + + + + + | Absolute | 5.5Comment: Testing | 1.9 - 7.4 K/uL | EXTERNAL | | | Segmented | performed at [facility], [address] | | LAB | | | Neutrophils | [address], | | | | | | [place] [address] | | | | + + + + + + | Absolute | 1.7Comment: Testing | 1.0 - 3.9 K/uL | EXTERNAL | | | Lymphocytes | performed at [facility], [address] | | LAB | | | | [address], | | | | | | [place] [address] | | | | + + + + + + | Absolute | 0.6Comment: Testing | 0 - 0.8 K/uL | EXTERNAL | | | Monocytes | performed at [facility], [address] | | LAB | | | [address], | | | | | | [place] [address] | | | | + + + + + + | Absolute | 0.5Comment: Testing | 0 - 0.5 K/uL | EXTERNAL | | | Eosinophils | performed at [facility], [address] | | LAB | | | | [address], | | | | | | [place] [address] | | | | + + + + + + | Absolute | 0.0Comment: Testing | 0 - 0.1 K/uL | EXTERNAL | | | Basophils | performed at [facility], [address] | | LAB | | | | [address], | | | | | | [place] [address] | | | | + + + [...] EXTERNAL | | | | performed at [facility], [address] | | LAB | | | | [address], | | | | | | [place] [address] | | | | + + + [...] | | | | | [place] [address] | | | | + + + + + + | K | 3.9Comment: Testing | 3.5 - 4.9 | EXTERNAL | | | | performed at [facility], [address] | mmol/L | LAB | | | | [address], | | | | | | [place] [address] | | | | + + + + + + | Cl | 103Comment: Testing | 99 - 109 mmol/L | EXTERNAL | | | | performed at [facility], [address] | | LAB | | | | [address], | | | | | | [place] [address] | | | | + + + + + + | CO2 | 28Comment: Testing | 23 - 32 mmol/L | EXTERNAL | | | | performed at [facility], [address] | | LAB | | | | [address], | | | | | | [place] [address] | | | | + + + + + + | Anion Gap | 11Comment: Testing | 5 - 20 mmol/L | EXTERNAL | | | | performed at [facility], [address] | | LAB | | | | [address], | | | | | | [place] [address] | | | | + + + + + + | Glucose, | 114 (H)Comment: Testing | 65 - 99 mg/dL | EXTERNAL | | | Fasting | performed at [facility], [address] | | LAB | | | | [address], | | | | | | [place] [address] | | | | + + + + + + | BUN | 14Comment: Testing | 8 - 25 mg/dL | EXTERNAL | | | | performed at [facility], [address] | | LAB | | | | [address], | | | | | | [place] [address] | | | | + + + + + + | Creatinine | 0.89Comment: Testing | 0.70 - 1.30 | EXTERNAL | | | | performed at [facility], [address] | mg/dL | LAB | | | | [address], | | | | | | [place] [address] | | | | + + + + + + | BUN/Creatin | 16Comment: Testing | | EXTERNAL | | | ine Ratio | performed at [facility], [address] | | LAB | | | | [address], | | | | | | [place] [address] | | | | + + + + + + | Calcium | 8.6Comment: Testing | 8.5 - 10.2 | EXTERNAL | | | | performed at [facility], [address] | mg/dL | LAB | | | | [address], | | | | | | [place] [address] | | | | + + + + + + | Protein, | 5.7 (L)Comment: Testing | 6.3 - 8.2 g/dL | EXTERNAL | | | Total | performed at [facility], [address] | | LAB | | | | [address], | | | | | | [place] [address] | | | | + + + + + + | Albumin | 3.7Comment: Testing | 3.3 - 4.8 g/dL | EXTERNAL | | | | performed at [facility], [address] | | LAB | | | | [address], | | | | | | [place] [address] | | | | + + + + + + | Globulin | 2.0Comment: Testing | 1.3 - 4.9 g/dL | EXTERNAL | | | | performed at [facility], [address] | | LAB | | | | [address], | | | | | | [place] [address] | | | | + + + + + + | A/G Ratio | 1.9Comment: Testing | 1.0 - 2.4 | EXTERNAL | | | | performed at [facility], [address] | | LAB | | | | [address], | | | | | | [place] [address] | | | | + + + + + + | Bilirubin | 0.8Comment: Testing | 0.1 - 1.5 mg/dL | EXTERNAL | | | Total | performed at [facility], [address] | | LAB | | | | [address], | | | | | | [place] [address] | | | | + + + + + + | ALP, | 36Comment: Testing | 35 - 115 U/L | EXTERNAL | | | External | performed at [facility], [address] | | LAB | | | | [address], | | | | | | [place] [address] | | | | + + + + + + | AST | 12Comment: Testing | 10 - 45 U/L | EXTERNAL | | | | performed at [facility], [address] | | LAB | | | | [address], | | | | | | [place] [address] | | | | + + + + + + | ALT | 12Comment: Testing | 10 - 65 U/L | EXTERNAL | | | | performed at [facility], [address] | | LAB | | | | [address], | | | | | | [place] [address] | | | | + + + [...] | | | | | | at [facility], [address] | | | | | | [address], | | | | | | [place] [address] | | | | + + + [...] | | | | | [place] [address] | | | | + + + + + + | Non- | 3.42 (L)Comment: Testing | 4.20 - 5.70 | EXTERNAL | | | Red Blood | performed at [facility], [address] | M/uL | LAB | | | Cells | [address], | | | | | Counted | [place] [address] | | | | + + + + + + | Hemoglobin | 10.6 (L)Comment: Testing | 13.2 - 17.0 | EXTERNAL | | | | performed at [facility], [address] | g/dL | LAB | | | | [address], | | | | | | [place] [address] | | | | + + + + + + | Hematocrit, | 31.8 (L)Comment: Testing | 39.0 - 50.0 % | EXTERNAL | | | POC | performed at [facility], [address] | | LAB | | | | [address], | | | | | | [place] [address] | | | | + + + + + + | MCV | 93.0Comment: Testing | 80.0 - 100.0 fl | EXTERNAL | | | | performed at [facility], [address] | | LAB | | | | [address], | | | | | | [place] [address] | | | | + + + + + + | MCH | 31.0Comment: Testing | 27.0 - 34.0 pg | EXTERNAL | | | | performed at [facility], [address] | | LAB | | | | [address], | | | | | | [place] [address] | | | | + + + + + + | MCHC | 33.3Comment: Testing | 32.0 - 35.5 | EXTERNAL | | | | performed at [facility], [address] | g/dL | LAB | | | | [address], | | | | | | [place] [address] | | | | + + + + + + | RDW-CV | 44.2Comment: Testing | 37 - 53 fl | EXTERNAL | | | | performed at [facility], [address] | | LAB | | | | [address], | | | | | | [place] [address] | | | | + + + + + + | Platelet | 171Comment: Testing | 150 - 400 K/uL | EXTERNAL | | | Count | performed at [facility], [address] | | LAB | | | Plasma | [address], | | | | | | [place] [address] | | | | + + + + + + | MPV | 9.9Comment: Testing | fl | EXTERNAL | | | | performed at [facility], [address] | | LAB | | | | [address], | | | | | | [place] [address] | | | | + + + + + + | Differentia | AUTOMATEDComment: | | EXTERNAL | | | l Type | Testing performed at | | LAB | | | | [facility], [address] | | | | | | [place] | | | | | | [address] | | | | + + + + + + | % Segmented | 69.8Comment: Testing | % | EXTERNAL | | | | performed at [facility], [address] | | LAB | | | Neutrophils | [address], | | | | | | [place] [address] | | | | + + + + + + | % | 19.3Comment: Testing | % | EXTERNAL | | | Lymphocytes | performed at [facility], [address] | | LAB | | | | [address], | | | | | | [place] [address] | | | | + + + + + + | % Monocytes | 6.3Comment: Testing | % | EXTERNAL | | | | performed at [facility], [address] | | LAB | | | | [address], | | | | | | [place] [address] | | | | + + + + + + | % | 4.1Comment: Testing | % | EXTERNAL | | | Eosinophils | performed at [facility], [address] | | LAB | | | | [address], | | | | | | [place] [address] | | | | + + + + + + | % Basophils | 0.5Comment: Testing | % | EXTERNAL | | | | performed at [facility], [address] | | LAB | | | | [address], | | | | | | [place] [address] | | | | + + + + + + | Absolute | 5.2Comment: Testing | 1.9 - 7.4 K/uL | EXTERNAL | | | Segmented | performed at [facility], [address] | | LAB | | | Neutrophils | [address], | | | | | | [place] [address] | | | | + + + + + + | Absolute | 1.4Comment: Testing | 1.0 - 3.9 K/uL | EXTERNAL | | | Lymphocytes | performed at [facility], [address] | | LAB | | | | [address], | | | | | | [place] [address] | | | | + + + + + + | Absolute | 0.5Comment: Testing | 0 - 0.8 K/uL | EXTERNAL | | | Monocytes | performed at [facility], [address] | | LAB | | | | [address], | | | | | | [place] [address] | | | | + + + + + + | Absolute | 0.3Comment: Testing | 0 - 0.5 K/uL | EXTERNAL | | | Eosinophils | performed at [facility], [address] | | LAB | | | | [address], | | | | | | [place] [address] | | | | + + + + + + | Absolute | 0.0Comment: Testing | 0 - 0.1 K/uL | EXTERNAL | | | Basophils | performed at [facility], [address] | | LAB | | | | [address], | | | | | | [place] [address] | | | | + + + [...] | | | | | [place] [address] | | | | + + + + + + | K | 4.6Comment: Testing | 3.5 - 4.9 | EXTERNAL | | | | performed at [facility], [address] | mmol/L | LAB | | | | [address], | | | | | | [place] [address] | | | | + + + + + + | Cl | 107Comment: Testing | 99 - 109 mmol/L | EXTERNAL | | | | performed at [facility], [address] | | LAB | | | | [address], | | | | | | [place] [address] | | | | + + + + + + | CO2 | 30Comment: Testing | 23 - 32 mmol/L | EXTERNAL | | | | performed at [facility], [address] | | LAB | | | | [address], | | | | | | [place] [address] | | | | + + + + + + | Anion Gap | 9Comment: Testing | 5 - 20 mmol/L | EXTERNAL | | | | performed at [facility], [address] | | LAB | | | | [address], | | | | | | [place] [address] | | | | + + + + + + | Glucose, | 104 (H)Comment: Testing | 65 - 99 mg/dL | EXTERNAL | | | Fasting | performed at [facility], [address] | | LAB | | | | [address], | | | | | | [place] [address] | | | | + + + + + + | BUN | 22Comment: Testing | 8 - 25 mg/dL | EXTERNAL | | | | performed at [facility], [address] | | LAB | | | | [address], | | | | | | [place] [address] | | | | + + + + + + | Creatinine | 0.95Comment: Testing | 0.70 - 1.30 | EXTERNAL | | | | performed at [facility], [address] | mg/dL | LAB | | | | [address], | | | | | | [place] [address] | | | | + + + + + + | BUN/Creatin | 23Comment: Testing | | EXTERNAL | | | ine Ratio | performed at [facility], [address] | | LAB | | | [address], | | | | | | [place] [address] | | | | + + + + + + | Calcium | 8.3 (L)Comment: Testing | 8.5 - 10.2 | EXTERNAL | | | | performed at [facility], [address] | mg/dL | LAB | | | | [address], | | | | | | [place] [address] | | | | + + + + + + | Protein, | 5.4 (L)Comment: Testing | 6.3 - 8.2 g/dL | EXTERNAL | | | Total | performed at [facility], [address] | | LAB | | | | [address], | | | | | | [place] [address] | | | | + + + + + + | Albumin | 3.5Comment: Testing | 3.3 - 4.8 g/dL | EXTERNAL | | | | performed at [facility], [address] | | LAB | | | | [address], | | | | | | [place] [address] | | | | + + + + + + | Globulin | 1.9Comment: Testing | 1.3 - 4.9 g/dL | EXTERNAL | | | | performed at [facility], [address] | | LAB | | | | [address], | | | | | | [place] [address] | | | | + + + + + + | A/G Ratio | 1.8Comment: Testing | 1.0 - 2.4 | EXTERNAL | | | | performed at [facility], [address] | | LAB | | | | [address], | | | | | | [place] [address] | | | | + + + + + + | Bilirubin | 0.7Comment: Testing | 0.1 - 1.5 mg/dL | EXTERNAL | | | Total | performed at [facility], [address] | | LAB | | | | [address], | | | | | | [place] [address] | | | | + + + + + + | ALP, | 32 (L)Comment: Testing | 35 - 115 U/L | EXTERNAL | | | External | performed at [facility], [address] | | LAB | | | | [address], | | | | | | [place] [address] | | | | + + + + + + | AST | 15Comment: Testing | 10 - 45 U/L | EXTERNAL | | | | performed at [facility], [address] | | LAB | | | | [address], | | | | | | [place] [address] | | | | + + + + + + | ALT | 12Comment: Testing | 10 - 65 U/L | EXTERNAL | | | | performed at [facility], [address] | | LAB | | | | [address], | | | | | | [place] [address] | | | | + + + [...] W | | | | | | [address], | | | | | | [place] [address] | | | | + + + [...] EXTERNAL | | | | performed at [facility];888 | g/dL | LAB | | | | [address];[place] | | | | | | [address] | | | | + + + + + + | Hematocrit, | 34.1 (L)Comment: Testing | 39.0 - 50.0 % | EXTERNAL | | | POC | performed at [facility];[address] | | LAB | | | | [address];[place], [place] | | | | | | [address] | | | | + + + [...] EXTERNAL | | | | performed at [facility];888 | g/dL | LAB | | | | [address];[place] | | | | | | [address] | | | | + + + + + + | Hematocrit, | 34.7 (L)Comment: Testing | 39.0 - 50.0 % | EXTERNAL | | | POC | performed at [facility];[address] | | LAB | | | | [address];[place] | | | | | | [address] | | | | + + + [...] EXTERNAL | | | | performed at [facility], [address] | | LAB | | | | [address], | | | | | | [place] [address] | | | | + + + + + + | Non- | 3.42 (L)Comment: Testing | 4.20 - 5.70 | EXTERNAL | | | Red Blood | performed at [facility], [address] | M/uL | LAB | | | Cells | [address], | | | | | Counted | [place] [address] | | | | + + + + + + | Hemoglobin | 10.5 (L)Comment: Testing | 13.2 - 17.0 | EXTERNAL | | | | performed at [facility], [address] | g/dL | LAB | | | | [address], | | | | | | [place] [address] | | | | + + + + + + | Hematocrit, | 31.9 (L)Comment: Testing | 39.0 - 50.0 % | EXTERNAL | | | POC | performed at [facility], [address] | | LAB | | | | [address], | | | | | | [place] [address] | | | | + + + + + + | MCV | 93.5Comment: Testing | 80.0 - 100.0 fl | EXTERNAL | | | | performed at [facility], [address] | | LAB | | | | [address], | | | | | | [place] [address] | | | | + + + + + + | MCH | 30.7Comment: Testing | 27.0 - 34.0 pg | EXTERNAL | | | | performed at [facility], [address] | | LAB | | | | [address], | | | | | | [place] [address] | | | | + + + + + + | MCHC | 32.9Comment: Testing | 32.0 - 35.5 | EXTERNAL | | | | performed at [facility], [address] | g/dL | LAB | | | | [address], | | | | | | [place] [address] | | | | + + + + + + | RDW-CV | 43.8Comment: Testing | 37 - 53 fl | EXTERNAL | | | | performed at [facility], [address] | | LAB | | | | [address], | | | | | | [place] [address] | | | | + + + + + + | Platelet | 164Comment: Testing | 150 - 400 K/uL | EXTERNAL | | | Count | performed at [facility], [address] | | LAB | | | Plasma | [address], | | | | | | [place] [address] | | | | + + + + + + | MPV | 10.4Comment: Testing | fl | EXTERNAL | | | | performed at [facility], [address] | | LAB | | | | [address], | | | | | | [place] [address] | | | | + + + + + + | Differentia | AUTOMATEDComment: | | EXTERNAL | | | l Type | Testing performed at | | LAB | | | | [facility], [address] | | | | | | [place] | | | | | | [address] | | | | + + + + + + | % Segmented | 65.6Comment: Testing | % | EXTERNAL | | | | performed at [facility], [address] | | LAB | | | Neutrophils | [address], | | | | | | [place] [address] | | | | + + + + + + | % | 23.8Comment: Testing | % | EXTERNAL | | | Lymphocytes | performed at [facility], [address] | | LAB | | | | [address], | | | | | | [place] [address] | | | | + + + + + + | % Monocytes | 9.2Comment: Testing | % | EXTERNAL | | | | performed at [facility], [address] | | LAB | | | | [address], | | | | | | [place] [address] | | | | + + + + + + | % | 1.0Comment: Testing | % | EXTERNAL | | | Eosinophils | performed at [facility], [address] | | LAB | | | | [address], | | | | | | [place] [address] | | | | + + + + + + | % Basophils | 0.4Comment: Testing | % | EXTERNAL | | | | performed at [facility], [address] | | LAB | | | | [address], | | | | | | [place] [address] | | | | + + + + + + | Absolute | 4.6Comment: Testing | 1.9 - 7.4 K/uL | EXTERNAL | | | Segmented | performed at [facility], [address] | | LAB | | | Neutrophils | [address], | | | | | | [place] [address] | | | | + + + + + + | Absolute | 1.7Comment: Testing | 1.0 - 3.9 K/uL | EXTERNAL | | | Lymphocytes | performed at [facility], [address] | | LAB | | | | [address], | | | | | | [place] [address] | | | | + + + + + + | Absolute | 0.6Comment: Testing | 0 - 0.8 K/uL | EXTERNAL | | | Monocytes | performed at [facility], [address] | | LAB | | | | [address], | | | | | | [place] [address] | | | | + + + + + + | Absolute | 0.1Comment: Testing | 0 - 0.5 K/uL | EXTERNAL | | | Eosinophils | performed at [facility], [address] | | LAB | | | | [address], | | | | | | [place] [address] | | | | + + + + + + | Absolute | 0.0Comment: Testing | 0 - 0.1 K/uL | EXTERNAL | | | Basophils | performed at [facility], [address] | | LAB | | | | [address], | | | | | | [place] [address] | | | | + + + [...] EXTERNAL | | | | performed at [facility], [address] | uIU/mL | LAB | | | | [address], | | | | | | [place] [address] | | | | + + + [...] EXTERNAL | | | | performed at [facility], [address] | | LAB | | | | [address], | | | | | | [place] [address] | | | | + + + [...] | | | | | [place] [address] | | | | + + + [...] + + | Hemoglobin | 5.8Comment: [place] | 4.0 - 6.0 % | EXTERNAL [...] | | | | | performed at [facility], [address] | | | | | | [address], | | | | | | [place] [address] | | | | + + + [...] | | | | | performed at [facility], [address] | | | | | | [address], | | | | | | [place] [address] | | | | + + + [...] | | | | | [place] [address] | | | | + + + + + + | K | 4.1Comment: Testing | 3.5 - 4.9 | EXTERNAL | | | | performed at [facility], [address] | mmol/L | LAB | | | | [address], | | | | | | [place] [address] | | | | + + + + + + | Cl | 109Comment: Testing | 99 - 109 mmol/L | EXTERNAL | | | | performed at [facility], [address] | | LAB | | | | [address], | | | | | | [place] [address] | | | | + + + + + + | CO2 | 26Comment: Testing | 23 - 32 mmol/L | EXTERNAL | | | | performed at [facility], [address] | | LAB | | | | [address], | | | | | | [place] [address] | | | | + + + + + + | Anion Gap | 8Comment: Testing | 5 - 20 mmol/L | EXTERNAL | | | | performed at [facility], [address] | | LAB | | | | [address], | | | | | | [place] [address] | | | | + + + + + + | Glucose, | 90Comment: Testing | 65 - 99 mg/dL | EXTERNAL | | | Fasting | performed at [facility], [address] | | LAB | | | | [address], | | | | | | [place] [address] | | | | + + + + + + | BUN | 48 (H)Comment: Testing | 8 - 25 mg/dL | EXTERNAL | | | | performed at [facility], [address] | | LAB | | | | [address], | | | | | | [place] [address] | | | | + + + + + + | Creatinine | 0.92Comment: Testing | 0.70 - 1.30 | EXTERNAL | | | | performed at [facility], [address] | mg/dL | LAB | | | | [address], | | | | | | [place] [address] | | | | + + + + + + | BUN/Creatin | 52Comment: Testing | | EXTERNAL | | | ine Ratio | performed at [facility], [address] | | LAB | | | | [address], | | | | | | [place] [address] | | | | + + + + + + | Calcium | 7.8 (L)Comment: Testing | 8.5 - 10.2 | EXTERNAL | | | | performed at [facility], [address] | mg/dL | LAB | | | | [address], | | | | | | [place] [address] | | | | + + + + + + | Protein, | 5.1 (L)Comment: Testing | 6.3 - 8.2 g/dL | EXTERNAL | | | Total | performed at [facility], [address] | | LAB | | | | [address], | | | | | | [place] [address] | | | | + + + + + + | Albumin | 3.3Comment: Testing | 3.3 - 4.8 g/dL | EXTERNAL | | | | performed at [facility], [address] | | LAB | | | | [address], | | | | | | [place] [address] | | | | + + + + + + | Globulin | 1.8Comment: Testing | 1.3 - 4.9 g/dL | EXTERNAL | | | | performed at [facility], [address] | | LAB | | | | [address], | | | | | | [place] [address] | | | | + + + + + + | A/G Ratio | 1.8Comment: Testing | 1.0 - 2.4 | EXTERNAL | | | | performed at [facility], [address] | | LAB | | | | [address], | | | | | | [place] [address] | | | | + + + + + + | Bilirubin | 0.6Comment: Testing | 0.1 - 1.5 mg/dL | EXTERNAL | | | Total | performed at [facility], [address] | | LAB | | | [address], | | | | | | [place] [address] | | | | + + + + + + | ALP, | 27 (L)Comment: Testing | 35 - 115 U/L | EXTERNAL | | | External | performed at [facility], [address] | | LAB | | | | [address], | | | | | | [place] [address] | | | | + + + + + + | AST | 11Comment: Testing | 10 - 45 U/L | EXTERNAL | | | | performed at [facility], [address] | | LAB | | | | [address], | | | | | | [place] [address] | | | | + + + + + + | ALT | 12Comment: Testing | 10 - 65 U/L | EXTERNAL | | | | performed at [facility], [address] | | LAB | | | | [address], | | | | | | [place] [address] | | | | + + + [...] | | | | | [place] [address] | | | | + + + [...] EXTERNAL | | | | performed at [facility];888 | g/dL | LAB | | | | [address];[place] | | | | | | [address] | | | | + + + + + + | Hematocrit, | 31.2 (L)Comment: Testing | 39.0 - 50.0 % | EXTERNAL | | | POC | performed at [facility];[address] | | LAB | | | | [address];[place] | | | | | | [address] | | | | + + + [...] | | LAB | | | [address];[place] [address] | | | | + + + + + + | Antibody | NEGATIVE | | EXTERNAL | | | Screen | | | LAB | | + + + + + + | Antibody | Testing performed at | | EXTERNAL | | | Screen | [facility];[address] | | LAB | | | [address];[place] [address] | | | | + + + + + + | BB BAND | [id number] | | EXTERNAL | | | | | | LAB | | + + + + + + | BB BAND | Testing performed at | | EXTERNAL | | | | [facility];[address] | | LAB | | | [address];[place] [address] | | | | + + + [...] | | | Patient | performed at [facility];[address] | | LAB | | | | [address];[place], [place] | | | | | | [address] | | | | + + + [...] | | | | | performed at [facility];[address] | | | | | | [facility];[place], [place] | | | | | | [address] | | | | + + + [...] EXTERNAL | | | | performed at [facility];[address] | | LAB | | | | [address];[place] | | | | | | [address] | | | | + + + + + + | Non- | 3.85 (L)Comment: Testing | 4.20 - 5.70 | EXTERNAL | | | Red Blood | performed at [facility];888 | M/uL | LAB | | | Cells | [address];[place] | | | | | Counted | [id number] | | | | + + + + + + | Hemoglobin | 11.8 (L)Comment: Testing | 13.2 - 17.0 | EXTERNAL | | | | performed at [facility];888 | g/dL | LAB | | | | [address];[place] | | | | | | [address] | | | | + + + + + + | Hematocrit, | 35.6 (L)Comment: Testing | 39.0 - 50.0 % | EXTERNAL | | | POC | performed at [facility];[address] | | LAB | | | | [address];[place] | | | | | | [address] | | | | + + + + + + | MCV | 92.5Comment: Testing | 80.0 - 100.0 fl | EXTERNAL | | | | performed at [facility];[address] | | LAB | | | | [address];[place] | | | | | | [address] | | | | + + + + + + | MCH | 30.5Comment: Testing | 27.0 - 34.0 pg | EXTERNAL | | | | performed at [facility];[address] | | LAB | | | | [address];[place] | | | | | | [address] | | | | + + + + + + | MCHC | 33.0Comment: Testing | 32.0 - 35.5 | EXTERNAL | | | | performed at [facility];888 | g/dL | LAB | | | | [address];[place] | | | | | | [address] | | | | + + + + + + | RDW-CV | 44.2Comment: Testing | 37 - 53 fl | EXTERNAL | | | | performed at [facility];[address] | | LAB | | | | [address];[place] | | | | | | [address] | | | | + + + + + + | Platelet | 189Comment: Testing | 150 - 400 K/uL | EXTERNAL | | | Count | performed at [facility];[address] | | LAB | | | Plasma | [address];[place] | | | | | | [address] | | | | + + + + + + | MPV | 9.9Comment: Testing | fl | EXTERNAL | | | | performed at [facility];[address] | | LAB | | | | [address];[place] | | | | | | [address] | | | | + + + + + + | Differentia | MANUALComment: Testing | | EXTERNAL | | | l Type | performed at [facility];[address] | | LAB | | | | [address];[place] | | | | | | [address] | | | | + + + + + + | Segmented | 80Comment: Testing | % | EXTERNAL | | | Neutrophils | performed at [facility];[address] | | LAB | | | Manual | [address];[place] | | | | | | [address] | | | | + + + + + + | % Bands | 6Comment: Testing | % | EXTERNAL | | | | performed at [facility];[address] | | LAB | | | | [address];[place] | | | | | | [address] | | | | + + + + + + | Lymphocytes | 9Comment: Testing | % | EXTERNAL | | | Manual | performed at [facility];[address] | | LAB | | | | [address];[place] | | | | | | [address] | | | | + + + + + + | Monocytes | 5Comment: Testing | % | EXTERNAL | | | Manual | performed at [facility];[address] | | LAB | | | | [address];[place] | | | | | | [address] | | | | + + + + + + | Absolute | 8.8 (H)Comment: Testing | 1.9 - 7.4 K/uL | EXTERNAL | | | Neutrophils | performed at [facility];[address] | | LAB | | | | [address];[place] | | | | | | [address] | | | | + + + + + + | Bands | 0.7 (H)Comment: Testing | 0 - 0.2 K/uL | EXTERNAL | | | Manual | performed at [facility];[address] | | LAB | | | | [address];[place] | | | | | | [address] | | | | + + + + + + | Absolute | 1.0Comment: Testing | 1.0 - 3.9 K/uL | EXTERNAL | | | Lymphocytes | performed at [facility];[address] | | LAB | | | | [address];[place] | | | | | | [address] | | | | + + + + + + | Absolute | 0.6Comment: Testing | 0 - 0.8 K/uL | EXTERNAL | | | Monocytes | performed at [facility];[address] | | LAB | | | | [address];[place] | | | | | | [address] | | | | + + + + + + | Platelet | ADEQUATEComment: Testing | | EXTERNAL | | | Estimate | performed at [facility];[address] | | LAB | | | | [address];[place] | | | | | | [address] | | | | + + + + + + | RBC | RBC AND PLT MORPHOLOGY | | EXTERNAL | | | Morphology | APPEAR NORMALComment: | | LAB | | | | Testing performed at | | | | | | [facility];[address];[place] [address] | | | | + + + [...] EXTERNAL | | | | performed at [facility];[address] | | LAB | | | | [address] [facility];[place] | | | | | | [address] | | | | + + + [...] EXTERNAL | | | | performed at [facility];888 | mmol/L | LAB | | | | [address];[place] | | | | | | [address] | | | | + + + + + + | K | 4.8Comment: Testing | 3.5 - 4.9 | EXTERNAL | | | | performed at [facility];888 | mmol/L | LAB | | | | [address];[place] | | | | | | [address] | | | | + + + + + + | Cl | 107Comment: Testing | 99 - 109 mmol/L | EXTERNAL | | | | performed at [facility];[address] | | LAB | | | | [address];[place] | | | | | | [address] | | | | + + + + + + | CO2 | 27Comment: Testing | 23 - 32 mmol/L | EXTERNAL | | | | performed at [facility];[address] | | LAB | | | | [address];[place] | | | | | | [address] | | | | + + + + + + | Anion Gap | 11Comment: Testing | 5 - 20 mmol/L | EXTERNAL | | | | performed at [facility];[address] | | LAB | | | | [address];[place] | | | | | | [address] | | | | + + + + + + | Glucose, | 146 (H)Comment: Testing | 65 - 99 mg/dL | EXTERNAL | | | Fasting | performed at [facility];[address] | | LAB | | | | [address];[place] | | | | | | [address] | | | | + + + + + + | BUN | 46 (H)Comment: Testing | 8 - 25 mg/dL | EXTERNAL | | | | performed at [facility];[address] | | LAB | | | | [address];[place] | | | | | | [address] | | | | + + + + + + | Creatinine | 0.91Comment: Testing | 0.70 - 1.30 | EXTERNAL | | | | performed at [facility];888 | mg/dL | LAB | | | | [address];[place] | | | | | | [address] | | | | + + + + + + | BUN/Creatin | 50Comment: Testing | | EXTERNAL | | | ine Ratio | performed at [facility];[address] | | LAB | | | | [address];[place] | | | | | | [address] | | | | + + + + + + | Calcium | 7.4 (L)Comment: Testing | 8.5 - 10.2 | EXTERNAL | | | | performed at [facility];888 | mg/dL | LAB | | | | [address];[place] | | | | | | [address] | | | | + + + + + + | Protein, | 5.8 (L)Comment: Testing | 6.3 - 8.2 g/dL | EXTERNAL | | | Total | performed at [facility];[address] | | LAB | | | | [address];[place] | | | | | | [address] | | | | + + + + + + | Albumin | 3.2 (L)Comment: Testing | 3.3 - 4.8 g/dL | EXTERNAL | | | | performed at [facility];[address] | | LAB | | | | [address];[place] | | | | | | [address] | | | | + + + + + + | Globulin | 2.6Comment: Testing | 1.3 - 4.9 g/dL | EXTERNAL | | | | performed at [facility];[address] | | LAB | | | | [address];[place] | | | | | | [address] | | | | + + + + + + | A/G Ratio | 1.2Comment: Testing | 1.0 - 2.4 | EXTERNAL | | | | performed at [facility];[address] | | LAB | | | | [address];[place] | | | | | | [address] | | | | + + + + + + | Bilirubin | 0.5Comment: Testing | 0.1 - 1.5 mg/dL | EXTERNAL | | | Total | performed at [facility];[address] | | LAB | | | | [address];[place] | | | | | | [address] | | | | + + + + + + | ALP, | 47Comment: Testing | 35 - 115 U/L | EXTERNAL | | | External | performed at [facility];[address] | | LAB | | | | [address];[place] | | | | | | [address] | | | | + + + + + + | AST | 11Comment: Testing | 10 - 45 U/L | EXTERNAL | | | | performed at [facility];[address] | | LAB | | | | [address];[place] | | | | | | [address] | | | | + + + + + + | ALT | 19Comment: Testing | 10 - 65 U/L | EXTERNAL | | | | performed at [facility];[address] | | LAB | | | | [address];[place] | | | | | | [address] | | | | + + + [...] | | | | | | at [facility];[address] | | | | | | [address];[place] [address] | | | | + + + [...]
--- OUTSIDE RECORDS SUMMARY | ~2020-03-03 | XMS | Encounter Summary ---
Demographics + + + | Address | [address] | | | [place] [address] | + + + | Home Phone [...] Providers + +------+ + | Care Motor Operator Name | Role | Phone | [...] as of this encounter Progress Notes Interface, Municipal Services Manager In - 11/26/2005 3:10 AM PDT ULTRASOUND [...] [place] M.D. and Waylon Simeon, Ophthalmic Echographer [place] / [id number] / [id number] / [id number] / Tdocumented in this encounter Plan of [...] | Transcriptions | + + | Interface, Municipal Services Manager In - 11/26/2005 3:10 AM PDT | [...] andWaylon Simeon, Ophthalmic | | EchographerME / [id number] / [id number] / [id number] / T: 07/17/2002 | |HISTORY: This gentleman [...] |Waylon Simeon, Ophthalmic Echographer | | | |[place] / | |[id number] / [id number] / [id number] / | | | | | + + documented in this encounter Visit Diagnoses Not on filedocumented in this encounter"
--- OUTSIDE RECORDS SUMMARY | ~2020-03-03 | XMS | Encounter Summary ---
Demographics + + + | Address | [address] | | | [place] [address] | + + + | Home Phone [...] Providers + +------+ + | Care Manager Animal Name | Role | Phone | + [...] + + | 08/01/ | Telephone | [facility] | Jamey Hdz | Procedure (ERCP) | | 2018 | | GASTROENTEROLOGY | MD Sarkis [address] | | | | | [address] TREASURE | [address] [facility] | | | | | [address] [place], [place] | [place] [address] | | | | | [address] | [phone] | | | | | [phone] | | | +--------+ + + + [...]
--- OUTSIDE RECORDS SUMMARY | ~2020-03-03 | XMS | Encounter Summary ---
Demographics + + + | Address | [address] | | | [place] [address] | + + + | Home Phone | | + + + | Preferred Language | Unknown | + + + | Marital Status | | + + + | Anabaptism Affiliation | NON | + + + [...] Providers + +------+ + | Care Business Manager Name | Role | Phone | [...] | | | | | Herb [facility] | [facility] | | | | | Hospital Admitting | [place], [place] | | | | | Desk Located on the | [address] | | | | | 9th floor | [phone] | | | | | [place], [place] | | | | | | [address] | | | +--------+ + + + [...] | | +--------+ + + + | Spindle Plumber | 06/27/17; 2205; Medium | 06/27/172205 by [...] | | Endotracheal Tube; 7.5; Oral; | HAND CELL TUBER | HAND CELL TUBER | | | 06/03/18; 1418 | | [...] be different from the original. William Burns [id number] Allergies Allergen Reactions Aromatic Dyspnea Budesonide-Formoterol Dyspnea [...] e different from the original. William Burns [id number] Allergies Allergen Reactions Aromatic Dyspnea Budesonide-Formoterol Dyspnea [...] Choledocholithiasis Acute cholangitis Klebsiella sepsis ([facility]) Aspiration pneumonitis ([facility]) S/P ERCP COPD (chronic obstructive pulmonary disease) ([facility]) Essential hypertension Physical deconditioning Past Surgical [...] Date RATE 78 06/02/2018 ATRIALRATE 79 06/02/2018 AK 177 06/02/2018 QRS 139 06/02/2018 QT 425 [...]
--- OUTSIDE RECORDS SUMMARY | ~2020-03-03 | XMS | Encounter Summary ---
Demographics + + + | Address | [address] | | | [place] [address] | + + + | Home Phone [...] Team Providers + +------+ + | Care Emblem Drawer In Name | Role | Phone | + +------+ + | Herlinda Maldonado | PCP | | + +------+ + Encounter Details +--------+ + + + + | Date | Type | Department | Care Team | Description | +--------+ + + + + | 06/28/ | Document-Sc | Health Information | Other, Faculty | | | 2018 | anned | Services [address] | [phone] | | | | | [address] | | | | | | Mailcode: [id number] | | | | | | [facility] | | | | | | [place], [place] | | | | | | [address] | | | | | | [phone] | | | +--------+ + + + [...]
--- OUTSIDE RECORDS SUMMARY | ~2020-03-03 | XMS | Encounter Summary ---
Demographics + + + | Address | [address] | | | [place] [address] | + + + | Home Phone [...] Team Providers + +------+ + | Care Artificial Intelligence Specialist Name | Role | Phone | [...] | | 2018 | | Arrhythmia at [facility] | MD Herson [address] | | | | | [address] | [address] | | | | | [facility] | [place], [place] | | | | | and Healing, | [address] | | | | | [facility] | [phone] | | | | | Floor [place], [place] | | | | | | [address] | | | | | | [phone] | | | +--------+ + + + [...] ADOLFO spoke with a prov ider at [facility] this morning. The discharge summary said to not restart his diltiazem, presumably because of episodes of bradycardia while in the hospital. However, provider and patient both report that it controls his "SVT" quite well. He has an adequate heart rate today, and since leaving the hospital. They will restart the diltiazem at the previous dose. Franko Garcia M.D. Director, Electrophysiology Trailer Mechanicconstruction inspector [facility] Cardiovascular [place] [facility] & [place] [phone] elephone Encoun Pam Berg RN - 07/04/2017 [...] and was then intubated and transported to [facility]. D uring transfer he had hypotension that [...] outside Provider calling:Dr. Herlinda Steinberg n from [place] Callback number: [phone] office or [phone] cell [facility] provider: Dr. Garcia Brief description: Dr. Bolton requesting a call back regarding pt's discharge paperwork. Page the [facility] provider and include: Outside provider name/contact and MRN of related patient. Route encounter to [facility] Provider + APPROPRIATE PROVIDER'S CAR NURSE POOL ~~~~~ documented in this encounter Plan of Treatment Not on filedocumented as of this encounter Visit Diagnoses Not on filedocumented in this encounter
--- OUTSIDE RECORDS SUMMARY | ~2020-03-03 | XMS | Encounter Summary ---
Demographics + + + | Address | [address] | | | [place] [address] | + + + | Home Phone [...] Team Providers + +------+ + | Care Leaf Stripper Name | Role | Phone | + +------+ + | Herlinda Maldonado | PCP | | + +------+ + Encounter Details +--------+ + + + + | Date | Type | Department | Care Team | Description | +--------+ + + + + | 06/16/ | Telephone | [facility] Primary Care | Sid, | | | 2018 | | at [facility] | Alexa Anderson MD | | | | | [address] | [address] | | | | | Loop Physician's | [place], | | | | | [place], 3rd floor | [place] [address] | | | | | [place], [place] | [phone] | | | | | [address] | | | | | | [phone] | | | +--------+ + + + [...] PSTAfter hours call 4 :45 pm from [facility] at [facility]. Patient hasn't slept will in 2 nights. [...]
--- OUTSIDE RECORDS SUMMARY | ~2020-03-03 | XMS | Encounter Summary ---
Demographics + + + | Address | [address] | | | [place] [address] | + + + | Home Phone | | + + + | Preferred Language | Unknown | + + + | Marital Status | | + + + | Sikhism Affiliation | Unknown | + + + | Race | White | + + + | Ethnic Group | Not or | + + + Author + + + | Author | [facility] | | | and [place] | + + + | Organization | [facility] | | | and [...] Team Providers + +------+ + | Care Metal Sander And Finisher Name | Role | Phone | + [...] | | | | | | | [place] ERCP DX | | | | | | | COLLECTION | | | | | | | SPECIMEN | | | | | | | BRUSHING/WAS | | | | | | | [place] | | | | | | | ERCP | | | | | | | BILIARY/PANC | | | | | | | DUCT STENT | | | | | | | EXCHANGE | | | | | | | W/DIL&WIRE | | | | | | | [place] | | | | | | | [...] + + | 08/14/ | Hospital | [facility] | Jamey Penny | Encounter for | | 2018 | Encounter | MED CTR OR INTRA OP | MD Sarkis [address] | removal of biliary | | | | [address] | [address] [place] | stent; Calculus of | | | | [place], [place] | [place] [address] | bile duct with acute | | | | [address] | [phone] | cholecystitis and | | | | [phone] | | obstruction | +--------+ + + [...] of ascending cholangitis and sepsis, treated at [facility]. Had ERCP with sphin cterotomy, stone extraction, and stent placement on 06/26/17. He underwent cholecystectomy in [place] and on the IOC there were possible distal CBD filling defects. Pt reports that he feels well. Denies any abdominal pain presently. PAST HISTORY: Past Medical History: Diagnosis Date Atrial fibrillation (HCC) Backache Bronchitis Bundle branch block, right Calculus of bile duct with acute cholecystitis with obstruction Choledocholithiasis Chronic obstructive pulmonary disease (COPD) ([facility]) Crush injury lower extremities 1966 Left leg [...] HISTORY Endobiliary stent placed at [facility] Removal of lesion Right 2010 Right hand [...] Class 2 (upper half of tonsil fossa) [place] Society of Anesthesia Grade:ASA 2 - A [...] Electronically Signed by: Jamey Penny MD 08/14/2017 [facility] VERIFICATION OF CONSENT (PARQ) The patient was counseled regarding the procedure, its indications, risks, potential compli cations and alternatives. Any questions were answered. Consent was obtained. Jamey Penny MD, 08/14/2017 12:[address] [facility] Portions of this chart may have been created with Deligic voice recognition software. Occasi onal wrong-word or [...] INSTRUCTIONS Patient: William Burns : 1935 Acct: [id number] Exam Date: Monday, August 14, 2017 Doctor: [...] 1 day. Avoiding fatty foods such as [place] Islander [place], hamburgers, [place], ham and pork products, will [...] 08/14/2017 | PROVATION | | 12:57 PMMRN: [id number] #: [id number] of : | | | 5Admit Type: AmbulatoryAge: 82Room: [facility] 02Gender: MaleNote | | | Status: FinalizedAttending MD: JAMEY PENNY , [facility]cedure: | | | ERCPIndications: Bile duct stone(s), Biliary stent | | | removalProviders: JAMEY PENNY MD, Kiah Orozco, | | | RN, Klaus Loco, RAYRAY, Vani Wisdom, | | | Steak Sauce Maker, Yinka Dominguez MD | | | (Anesthesia [...] the procedure well.Findings: A | | | egg crater film of the abdomen was obtained. Surgical [...] | | was it seen on the egg crater image. - Several filling defects | | [...] PMScope Out: | | | 1:58:[address] [facility], [address] [place] [address], | | | [place] [address] | | | - KUB today to [...] |Scope Out: 1:58:46 PM | | | [facility], [facility] W [facility], [place], [place] | | | [address] | | + + -+ + +---------+ [...] + | [facility] | [address] | [place] | [phone] | | [facility] | | [address] | | | - LABORATORY | | [...] mL/min/1.73m2 | [facility] | | | Congolese | RATE,ESTIMATED | | MEDICAL | | | | mL/min/1.82i8Uurk than | | CENTER - | | [...] | 9.2 | 8.3 - 10.5 | [facility] | | | | | mg/dL | [facility] | | | | | | MEDICAL | | | | | | CENTER - | | | | | | LABORATORY | | + + + + + + | Albumin | 4.0 | 3.2 - 5.0 g/dL | [facility] | | | | | | [facility] | | | | | | MEDICAL [...] [address] | [place] | [phone] | | [facility] | | [address] | | | - LABORATORY | | [...] [place] | [address] | [place] | [phone] | | [facility] | | [address] | | | - LABORATORY | | [...]
--- OUTSIDE RECORDS SUMMARY | ~2020-03-03 | XMS | Encounter Summary ---
Demographics + + + | Address | [address] | | | [place] [address] | + + + | Home Phone [...] Team Providers + +------+ + | Care Technical Program Manager Name | Role | Phone | [...] | | 2018 | | Arrhythmia at [facility] | MD Herson [address] | | | | | [address] | [address] | | | | | [facility] | [place], [place] | | | | | and Healing, | [address] | | | | | [facility] | [phone] | | | | | Floor [place], [place] | | | | | | [address] | | | | | | [phone] | | | +--------+ + + + [...] ADOLFO spoke with a prov ider at [facility] this morning. The discharge summary said to not restart his diltiazem, presumably because of episodes of bradycardia while in the hospital. However, provider and patient both report that it controls his "SVT" quite well. He has an adequate heart rate today, and since leaving the hospital. They will restart the diltiazem at the previous dose. Franko Garcia M.D. Director, Electrophysiology Call Center Assistantamusement or recreation card checker [facility] Cardiovascular [facility] & [place] [phone] elephone Encoun Pam Berg RN - 07/04/2017 [...] and was then intubated and transported to [facility]. D uring transfer he had hypotension that [...] outside Provider calling:Dr. Herlinda Steinberg n from [facility] [place] Callback number: [phone] office or [phone] cell [facility] provider: Dr. Garcia Brief description: Dr. Bolton requesting a call back regarding pt's discharge paperwork. Page the [facility] provider and include: Outside provider name/contact and MRN of related patient. Route encounter to [facility] Provider + APPROPRIATE PROVIDER'S CAR NURSE POOL ~~~~~ documented in this encounter Plan of Treatment Not on filedocumented as of this encounter Visit Diagnoses Not on filedocumented in this encounter
--- OUTSIDE RECORDS SUMMARY | ~2020-03-03 | XMS | Encounter Summary ---
Demographics + + + | Address | [address] | | | [place] [address] | + + + | Home Phone [...] Team Providers + +------+ + | Care Audit Specialist Name | Role | Phone | + +------+ + | Herlinda Maldonado | PCP | | + +------+ + Encounter Details +--------+ + + + + | Date | Type | Department | Care Team | Description | +--------+ + + + + | 06/26/ | Document-Sc | Health Information | Other, Faculty | | | 2018 | anned | Services [address] | [phone] | | | | | [address] | | | | | | Mailcode: OP17A | | | | | | [facility] | | | | | | [place], [place] | | | | | | [address] | | | | | | [phone] | | | +--------+ + + + [...]
--- OUTSIDE RECORDS SUMMARY | ~2020-03-03 | XMS | Encounter Summary ---
Demographics + + + | Address | [address] | | | [place] [address] | + + + | Home Phone [...] + + + | Author | [facility] | | | and [place] | + + + | Organization | [facility] | | | [...] Team Providers + +------+ + | Care Historical Archeologist Name | Role | Phone | + [...] | | | pulmonary | [address] | [address] | | | | | disease, | St [place] | [address] | | | | | unspecified | [place], [place] | [place] | | | | | COPD type | [address] | [address] Phone: | | | | | ([facility]) | Phone: | [phone] | | | | | | [phone] | Fax: | | | | | | Fax: | [phone] | | | | | | [phone] | | +--------+ + + + + [...] | Atrial | Maximilian | [address] | | | | | fibrillation | MD Jon | [place], | | | | | , | [address] | [place] | | | | | unspecified | [place] | [address] | | | | | type (HCC) | [place], [place] | Phone: | | | | | Procedures | [address] | [phone] | | | | | ECHO | Phone: | Fax: | | | | | Complete | [phone] | [phone] | | | | | | Fax: | | | | | | | [phone] | | +--------+--------+ + + + + [...] fibrillation | [address] | [address] | | | | | ([facility]) | [address] | [address] [place] | | | | | Procedures | [place], | [place], [place] | | | | | RING [place]DUCTOR | [place] | [address] Phone: | | | | | | [address] | [phone] | | | | | | Phone: | Fax: | | | | | | [phone] | [phone] | | | | | | Fax: | | | | | | | [phone] | | +--------+--------+ + + + + Encounter Details +--------+---------+ + + + | Date | Type | Department | Care Team | Description | +--------+---------+ + + + | 01/09/ | Office | [facility] | Maximilian Abreu | Atrial fibrillation, | | 2019 | Visit | CARDIOLOGY [address] | MD Jon [address] | unspecified type | | | | [address] [place], | [address] [place] | ([facility]) (Primary Dx); | | | | [place] [address] | [place] [address] | Right fascicular | | | | [phone] | [phone] | block; Essential | | | | [...] PM PDT Referral to Dr Hairston - Load Dispatcher Local in [facility]. Someone from that office will call you [...] obstruction Choledocholithiasis Chronic obstructive pulmonary disease (COPD) ([facility]) Crush injury lower extremities 1966 Left [...] skin 2010 [facility] hand [facility]/ left upper limb, inc shoulder Upper gastrointestinal bleeding Past Surgical History: Procedure Laterality Date BACK SURGERY 1981 Lower back COLONOSCOPY 09/23/2013 [facility] ENDOSCOPY 08/10/2013 [facility] ERCP N/A 08/14/2017 Procedure: ERCP; Surgeon: Jamey Hdz MD; Location: [facility] MEDICAL PROCEDURE UNIT HIP FRACTURE SURGERY [...] OTHER SURGICAL HISTORY Endobiliary stent placed at [facility] Removal of lesion Right 2010 [...] made to ensure accuracy; however, inadvertent computerized precision machine operator errors may be pre sent. Electronically [...] Chronic | Ordered: 01/13/2019 | | to [facility] | Referral | e | obstructive | [...] | | | SHAHEEN Toro READING CLINICAL DATA RESEARCH: Salvador Abreu MD, | | | PhD, [facility] 48-HOUR HOLTER MONITOR REPORT DATE: 03/26/2019 | [...] 01:15. | | | 5) There were 68831 Supraventricular beats with 558 couplets and | [...] | Signed by: Salvador Abreu MD PhD [facility] 03/27/2019, 16:05 | | + + + [...] | | | | | | n Hand | | | | | + + [...] | | | | | | n Hand | | | | | + + [...] | WILLIAM SOTO Room Number Patient Number [id number] Date | | | of Study 03/26/2019 Visit Number [id number] | | | Referring Physician JON ABREU MD Accession | | | [id number] Alteration Inspector IRAJ DÍAZ Number | | | Date of 1935 Interpreting | | | JON ABREU MD | | | Physician Age 84 year(s) Nurse Gender | | | Male Stress Dosier Operator Procedure | | | Type of [...] Ingram Results In - 03/26/2019 5:04 PM [facility] Transthoracic Echocardiography Report | | (TTE) Demographics Patient Name NATALI SOTO Room Number Patient Number | | [id number] Date of Study 03/26/2019 Visit Number [id number] | | Referring Physician JON ABREU MD Alteration Inspector | | IRAJ DÍAZ Number Date of [...] MD | | | | | | ([id number]) on 01/09/2019 | | | | | [...]
--- OUTSIDE RECORDS SUMMARY | ~2020-03-03 | XMS | Encounter Summary ---
Demographics + + + | Address | [address] | | | [place] [address] | + + + | Home Phone [...] Providers + +------+ + | Care Radio Mechanic Apprentice Name | Role | Phone | + [...] as of this encounter Progress Notes Interface, Director Physical Therapy In - 11/26/2005 3:10 AM PDT ULTRASOUND [...] and Waylon Simeon, Ophthalmic Echographer [place] / [id number] / [id number] / [id number] / Tdocumented in this encounter Plan of [...] | Transcriptions | + + | Interface, Director Physical Therapy In - 11/26/2005 3:10 AM PDT | [...] andWaylon Simeon, Ophthalmic | | EchographerME / [id number] / [id number] / [id number] / T: 07/17/2002 | |HISTORY: This gentleman [...] Ophthalmic Echographer | | | |[place] / | |[id number] / [id number] / [id number] / | | | | | + + documented in this encounter Visit Diagnoses Not on filedocumented in this encounter"
--- OUTSIDE RECORDS SUMMARY | ~2020-03-03 | XMS | Encounter Summary ---
Demographics + + + | Address | [address] | | | [place] [address] | + + + | Home Phone [...] Providers + +------+ + | Care Manager Child Name | Role | Phone | + [...] | | Diagnoses | Yovanny | [address] [facility] | | | | | Chronic | She | HOSPITAL | | | | | obstructive | MD Domonique | SLEEP | | | | | pulmonary | [address] | DISORDERS LAB | | | | | disease, | [address] | [address] | | | | | unspecified | TRE[address] | [address] | | | | | COPD type | [place], [place] | [place] | | | | | ([facility]) | [address] | [address] | | | | | Procedures | Phone: | Phone: | | | | | Pulmonary | [phone] | [phone] | | | | | function | Fax: | Fax: | | | | | test | [phone] | [phone] | +--------+--------+ + + + + Reason [...] | | | pulmonary | [address] | [address] | | | | | disease, | [place] | [address] | | | | | unspecified | [place] [address] | [place] | | | | | COPD type | [address] | [address] Phone: | | | | | ([facility]) | Phone: | [phone] | | | | | | [phone] | Fax: | | | | | | Fax: | [phone] | | | | | | [phone] | | +--------+ + + + + + Encounter Details +--------+---------+ + + + | Date | Type | Department | Care Team | Description | +--------+---------+ + + + | 04/30/ | Office | [facility] | Yovanny, | Shortness of breath | | 2019 | Visit | PULMONOLOGY [address] | [address] Youssef, | (Primary Dx); | | | | [address] | MD [address] | Chronic obstructive | | | | [place] | [place], | pulmonary disease, | | | | [address] | [place] [address] | unspecified COPD | | | | [phone] | [phone] | type (HCC); | | | | [...] in this encounter Progress Notes Brock Bocanegra, Junior Sales Representative - 04/30/2019 1:30 PM PST3 step testing Oximetry Exercise (code) 47341 1. At rest on room air: Time:2:24 [...] been admitted for a bowel obstruction in [facility] and he is recovering from this. He [...] the last time he was admitted in [facility]. 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 He has a dog. He denies owning pigeons. He grew up in [place]. He denies having respirator y issues when [...] obstruction Choledocholithiasis Chronic obstructive pulmonary disease (COPD) ([facility]) Crush injury lower extremities 1966 Left leg [...] BACK SURGERY 1981 Lower back COLONOSCOPY 09/23/2013 [facility] ENDOSCOPY 08/10/2013 [facility] ERCP N/A 08/14/2017 Procedure: ERCP; Surgeon: Jamey Hdz MD; Location: [facility] MEDICAL PROCEDURE UNIT HIP FRACTURE SURGERY [...] OTHER SURGICAL HISTORY Endobiliary stent placed at [facility] Removal of lesion Right 2009 Right [...] his PFT. His studies were sent to [facility]. Three minute walk test did not show [...] Hairston MD Pulmonary and Critical Care Medicine [facility]/[address] , [place] [address] documente d in this encounter Plan of [...]
--- OUTSIDE RECORDS SUMMARY | ~2020-03-03 | XMS | Encounter Summary ---
Demographics + + + | Address | [address] [address] | | | [place] [address] | + + + | Home Phone [...] + + + | Author | [facility] | | | and [place] | + + + | Organization | [facility] | | [...] Team Providers + +------+ + | Care Ruffler Name | Role | Phone | + [...] | | | pulmonary | [address] | [place] | | | | | disease, | St [place] | [place], [place] | | | | | unspecified | [place], [place] | [address] Phone: | | | | | COPD type | [address] | [phone] | | | | | ([facility]) | Phone: | Fax: | | | | | | [phone] | [phone] | | | | | | Fax: | | | | | | | [phone] | | +--------+ + + + + [...] | | | | | ([facility]) | [address] | [address] | | | | | Procedures | [place], | [place] | | | | | MARKING DEVICES ASSEMBLER | [place] | [address] Phone: | | | | | | [address] | [phone] | | | | | | Phone: | Fax: | | | | | | [phone] | [phone] | | | | | | Fax: | | | | | | | [phone] | | +--------+--------+ + + + + Encounter Details +--------+---------+ + + + | Date | Type | Department | Care Team | Description | +--------+---------+ + + + | 04/09/ | Office | [facility] | Lois Maximilian | Chronic obstructive | | 2018 | Visit | CARDIOLOGY [address] | MD Jon [address] | pulmonary disease, | | | | [place] [address], | [address] [place] | unspecified COPD | | | | [place] [address] | [place] [address] | type (HCC) (Primary | | | | [phone] | [phone] | Dx) | | | | | [...] Center ENDOSCOPY 08/10/2013 [facility] ERCP N/A 08/14/2017 Procedure: ERCP; Surgeon: Jamey Hdz MD; Location: [facility] MEDICAL PROCEDURE UNIT HIP FRACTURE SURGERY [...] [facility] Removal of lesion Right 2010 [...] made to ensure accuracy; however, inadvertent computerized roofing laborer errors may be pre sent. Electronically signed by: Salvador Abreu MD PhD [facility] 04/09/2019 documented in t his encounter [...]
--- OUTSIDE RECORDS SUMMARY | ~2020-03-03 | XMS | Encounter Summary ---
Demographics + + + | Address | [address] | | | [place] [address] | + + + | Home Phone [...] Team Providers + +------+ + | Care Filling Mixer Name | Role | Phone | [...] Medication | | 2019 | | at [facility] | [address] | management | | | | [address] | [facility] | | | | | [facility] | [place], [place] | | | | | [place], [address] [place] [address] | [address] | | | | | [place], [place] | [phone] | | | | | [address] | | | | | | [phone] | | | +--------+ + + + [...] 06/07/2018 8:02 PM PSTAfter hours [facility]. Nurse seeks clarification on albuterol neb ord er. I recommended sig of 1 treatment every 6 hours as needed for shortness of breath. PCP to confirm. documented in this encounter Plan of Treatment Not on filedocumented as of this encounter Visit Diagnoses Not on filedocumented in this encounter"
--- OUTSIDE RECORDS SUMMARY | ~2020-03-03 | XMS | Encounter Summary ---
Demographics + + + | Address | [address] | | | [place] [address] | + + + | Home Phone [...] Providers + +------+ + | Care Hat Copyist Name | Role | Phone | + [...] | deconditioni | Virgil Chance MD | [facility] | | | | | ng | [address] | for Health | | | | | Procedures | [address] | and Healing, | | | | | PHYSICAL | [address] | Building 1, | | | | | THERAPY | [facility] [place] | 1st Floor | | | | | REFERRAL | [address] | [facility] [place] | | | | | | Phone: | [phone] | | | | | | [phone] | Phone: | | | | | | Fax: | [phone] | | | | | | [phone] | Fax: | | | | | | | [phone] | +--------+--------+ + + + + Reason [...] + + | 06/26/ | Hospital | [address] | Alberto Miranda MD | | | 2018 - | Encounter | [address] | [address] | | | | | [address] [place] [address] | Carolina Guerra [place], | | | 06/30/ | | [place], [place] | [place] [address] | | | 2017 | | [address] | [phone] | | | | | [phone] | | | | | | | Vic Petty | | | | | | MD [place] [address] | | | | | | [address] | | | | | | [place], [place] | | | | | | [address] | | | | | | [phone] | | | | | | | [...] might be differen t from the original. [facility] Discharge Summary Discharging Provider: VIRGIL [...] prior to transfer) #Central venous catheter insertion, [facility] - 06/26/17 #Arterial line, R radial - 06/26/17 Reason for Admission: #Septic Shock Hospital Course by Problem (with follow-up plan/instructions): #Septic Shock #Ascending cholangitis #Klebsiella bacteremia Presented as transfer from OSH in setting of subacute, progressive post-prandial abdominal pain. At OSH, was found to be tachypneic (did not tolerate BiPAP) and intubated prior to tra nsfer to [facility]. Workup was notable for RUQ U/S with [...] Your Medications These medications were sent to -[id number] [address] [place] [address] [place] [address] Hours: 9AM-7PM MON - FRI / 9AM-6PM [...] Thank you for entrusting your care to [facility] Internal Medicine. If you have any problems or concerns before you are able to follow up with your Primary Care Provider, please call and ask the cw operator to page the attending physician, Vic Petty MD, wh o was caring for you at discharge. If that physician is not available, ask the cw operator to page the physician continuous improvement coordinator for the Medical Teaching Service. Call us right away if any of the following occur: Recurrent abdominal pain Shaking chills or night sweats Other Discharge Orders and Instructions You will be called by the [facility] GI service within the next week to schedule a repeat appoint ment for ERCP and possible stent removal. Home Health Referral after Hospitalization Comments: I certify that this patient is under my care and that I, or Nurse Practitioner or Physician Mold Sheet Cleaner working with me, had a face to [...] MD . Specialty: Internal Medicine Contact information [facility] [address] [place] [address] [address] [facility] [id number] Discharge Physical Exam: Last 24 hour min/max [...] (HCC) 12) Acute respiratory failure with hypoxia ([facility]) Please refer to the resident discharge summary for additional details. Vic Petty MD, PhD Clinical Hospitalist and Medicine Teaching Services [facility] Pager [phone] I have spent 35 minutes with the [...] be different from th e original. PHYSICIAN STATISTICS INTERN STUDENT PROGRESS NOTE FOR EDUCATIONAL PURPOSES ONLY [...] Q2H PRN ipratropium-albuterol 3 mL Q6H PRN viixuqsm-sokjppf-bzmktueb-zinc QID PRN oxyCODONE (immediate release) 2.5-5 mg [...] PIV Code status: FULL Collin Mohr PA-S [facility] Physician Mold Sheet Cleaner Program 06/29/17 Kang Zhang MD - 06/29/2017 [...] Choledocholithiasis 3) Acute cholangitis 4) Klebsiella sepsis ([facility]) 5) Aspiration pneumonitis (HCC) 6) S/P ERCP 7) COPD (chronic obstructive pulmonary disease) (HCC) 8) Essential hypertension 82 year-old man with HTN, COPD not on supplemental oxygen, who presented to OSH with epigas tric pain and abnormal LFTs, admitted for septic shock due to acute cholangitis and acute hy poxic respiratory failure due to aspiration requiring intubation, transferred to [facility] MICU. Here found to have klebsiella bacteremia [...] Teaching Services [facility] Pager [phone] I have spent 26 minutes with the [...] interval not displayed. Micro: BLOOD CULTURE WORKUP [[id number]] (Abnormal) [facility] Collected: 06/26/17 0939 Lab [...] (HCC) 11) Acute respiratory failure with hypoxia ([facility]) Assessment: Lilian Hurst is a [...] Primary Surrogate Decision Maker Sharon Rodriguez Daughter [phone] Dimas Xavier MD Internal Medicine, PGY-3 #[phone] Louis Hernandez MD - 06/28/2017 2:26 PM [...] management as outpatient (pt prefers facility near [place]) --> if develops post ERCP complications or [...] Mohr - 06/28/2017 7:47 AM PST PHYSICIAN STATISTICS INTERN STUDENT PROGRESS NOTE FOR EDUCATIONAL PURPOSES ONLY [...] Q2H PRN ipratropium-albuterol 3 mL Q6H PRN qrzjnxrl-nyawcba-pnaijjgt-zinc QID PRN oxyCODONE (immediate release) 2.5-5 mg [...] on klebsiella cultures for sensitivity. Spoke with Environmental Compliance Officer at [facility] @1330, N o sensitivity results yet from [...] DOREEN Oconnell [facility] Physician Mold Sheet Cleaner Program 06/28/17 Alisha Rai M D - [...] 86 87 78 HCO3 22 24 23 AZEBT3IZN 24 25 24 V9QETNWN 96.4 97.0 96.8 FIO2 0.80 0.25 0.21 [...] in the patient's condition). ALISHA LAGUNAS MD [facility] [address] [place] [address] Camilo Amaya MD - 11/2017 6:00 AM PST [facility] MEDICAL ICU - PROGRESS NOTE Hospital Day: [...] 6.5 mL/Kg (459.6 mL) RR: 22 bpm [place] BW: 70.7 kg FiO2 21 fraction of [...] 87 78 HCO3 -- 22 24 23 SHO4CTG0 -- 108* 348 371 VBGPH 7.27* -- [...] 3.375 g i ntravenous Q8H Stopped (06/27/17 452) Current Facility-Administered Medications Medication Dose Route Frequency [...] Primary Surrogate Decision Maker Sharon Rodriguez Daughter [phone] This patient was staffed with Dr. Lagunas, [...] duct clearance Rene Mendoza MD Gastroenterology Pager [phone] - Virginia Cerna MD - 06/26/2017 4:38 PM PSTFormatting of this note might be different from the origi nal. PRE PROCEDURE NOTE: MR# [id number] Subjective: Lilian Hurst is a 82 y.o. [...] results for input(s): PH, PCO2, PO2, HCO3, PYQNP6SUQ, U5HJFSMC, U4IRHQMEL, FIO2 in the l ast 72 hours. [...] in the patient's condition). ALISHA LAGUNAS MD [facility] [address] [place] [address] documented in this enco unter H&P Notes [...] intubated and placed on pressors, transferred to [facility] MICU directly . In MICU, GI was consulted who performed ERCP with sphincterotomy with several CBD stones an d sludge removal yesterday + stent placement. He was also placed on zosyn for emperic antib iotic coverage. He was found to have gram-positive and klebsiella bacteremia.He was readily extubated and remains on 1-2L of NC. On bpac-ep-icqg evaluation on general medicine floor, he reports [...] None /hpf Imaging Interpretation: No US in [facility] system Summary Patient is an 82 year [...] management as outpatient (pt prefers facility near [place]) --If febrile, order new bcx --If hypotensive/concern [...] due to aspiration requiring intubation, transferred to [facility] MICU. Here found to have klebsiella bacteremia [...] Medicine Teaching Services [facility] Pager [phone] I spent more than 70 minutes [id number]-tm-aicg with the patient of which greater than 50% was sp ent counseling the patient on acute cholangitis, abdominal pain, klebsiella bacteremia and i n coordination of care. Dianna Dodson MD - 06/26/2017 6:46 AM PSTFormatting of this note might be different from t sarath original. [facility] MEDICAL ICU - HISTORY & PHYSICAL Author: [...] was then intubated a nd transported to [facility]. On route here, had hypotension with SBP [...] Ventilation Vex: Mandatory 580 ml | Spontaneous [place] BW: 70.7 kg RR: 18 bpm Minute [...] -- 86 87 HCO3 -- 22 24 NNR9IKL9 -- 108* 348 VBGPH 7.27* -- -- [...] housestaff assessment and plan. ALISHA LAGUNAS MD [facility] [address] [place] [address] documented in this encounter Procedure Notes Reid [...] pause veri fies correct patient, procedure, equipment, java support engineer and site/side marked as required. CLABSI Prevention [...] A pause verifies correct patient, procedure, equipment, java support engineer and site/side marked as requir ed. CLABSI [...] Ultrasound Guidance. The modified Seldinger technique (a huxsnwcr-wgku-hme-txnbpj-rjfx-zqlj-ofalnog-bja-zrdlpyqq ) was used for vessel cannulation. The [...] currently going to Dr. Geovanni Hylton in [facility] [place] for primary care. Allergies: Allergies Allergen Reactions [...] acute cholangitis at the MICU. Pharmacy Preferences: [phone] [place], [place] Fax: Source of Medication Information: Patient and [...] [employer]ia Candidate Class of 2018 Pager # [phone] Associated attestation - Alisa Flores PharmD - 06/28/2017 1:48 PM PSTI have reviewed an d agree with the pharmacy technologist's documentation and have documented any additions or excep tions. Medication doses updated per pharmacy records and patient report. Refuses inhalers, b ut has been using Duonebs at home. Alisa Flores PharmD, [facility] Pager [phone] Cassy Patricio MD - 06/27/2017 8:14 AM [...] Cassy Patricio MD Internal Medicine PGY2 Pager #[phone] INTERVAL HISTORY: - ERCP with choledocholithiasis, stones [...] for ICU patient with acute cholangitis. The hotel room attendant film was normal. The esophagus was successfully [...] note for further details. Paulette Mckenzie MD [employer] account executive Department of Gastroenterology [facility] DEPARTMENT: GI - [phone] Place of Service: [facility]: [phone] Suggested Modifiers: GC - Resident Involved Suggested Level of Care: 61085 (<15 minutes) Gunner Viera, Brian C - [...] and was then intubated and transported to [facility]. Du ring transfer he had hypotension that [...] beta blockers while bradycardic Brian Martino MD [facility] Pager [phone] Associated attestation - Franko Garcia MD - [...] SVT appears. Franko Garcia M.D. Director, Electrophysiology Event [place] [address] Cassy Patricio MD - 06/26/2017 9:21 AM [...] Cassy Patricio MD Internal Medicine PGY2 Pager #[phone] HISTORY OF PRESENT ILLNESS Lilian Hurst is [...] and ultimately intubation prior to transfer to [facility]. In the MICU: On arrival, pt afebrile, [...] note for further details. Paulette Mckenzie MD [employer] account executive Department of Gastroenterology [facility] DEPARTMENT: GI - [id number] Place of Service: [id number] - [facility] CSN: [id number] Suggested Modifiers: GC - Resident Involved Suggested Level of Care: 24249 (<15 minutes) documented in this encounter Miscellaneous [...] none specified at this time (06/28/17 1630) [facility] IP NURSE HANDOFF: Hartley hospital course events: Grant is a 82 y.o. man admitted to the [facility] for Klebsiella oxytoca septic shock likely secondary [...] none specified at this time (06/28/17 1630) [facility] IP NURSE HANDOFF: Hartley hospital course events: Grant is a 82 y.o. man admitted to the [facility] for septic shock likely secondary to acute cholangitis. 06/26: Tx to 7A MICU, ERCP done, pressor needs, SVT --> junctional rhythm, inocente, and pauses (cards consulted) 06/27: extubated to 2 liters nasal canula. NSR. SAFETY Patient/Family Target: Aki will maintain hemodynamic stability Progress to Target: Improving As evidenced by: - Per MD note, Aki was admitted to [facility] with septic shock and severe hypotension. VSS [...] from t sarath original. Physical Therapy Evaluation [id number] LILIAN HURST Date of : 1935 Start of care: 06/29/2017 Attending Practitioner: Vic Petty MD Primary/Referral Diagnosis/ICD-9: K80.50 Choledocholithiasis R06.00 Dyspnea, unspecified type Insurance: Payor: [facility] / Plan: [facility] MEDICARE HMO / Product Type: Medicare / [...] / Family Goal: To go home Communication/Barriers: Italian Subjective: Pt agreeable to working with PT [...] loss of balance Outcome Measure: [facility] BASIC MOBILITY Difficulty turning over [...] - Minimal/Contact Guard Assist/Superv ision [facility] Basic Mobility Total Score 22 Interpretation of [facility] Short Form - Basic Mobility: [...] Consulted with: SARI re: recommendations PLAN: Pt education/inspector health care facilities training, HEP, transfer training, gait training, stairs/curb [...] a few days ago, currently eating breakfast (vincentian muffin, scramble d egg, slice of ham). [...] - Continue on regular diet. Texture/consistency per CHILD SUPPORT SPECIALIST. - Continue to encourage po intake to [...] will follow up. Following, Sachi Greer M.S. Java J2E[employer] Lead Pgr#[phone] Kiah Beaulieu, MPH, RD, CNSC, LD Pager: [phone] For details, please see dietitian note from 06/28. andoff - Ira Decker RN - 06/29/2017 2:48 AM PSTNcas timmons Patient Daily Goal: "I need my pain well controlled tonight" (06/28/171999) Patient Specific Preferences: none specified at this time (06/28/17 1630) [facility] IP NURSE HANDOFF: Hartley hospital course events: Grant is a 82 y.o. man admitted to the [facility] for septic shock likely secondary to acute cholangitis. 2: Tx to 7A MICU, ERCP done, pressor needs, SVT --> junctional rhythm, inocente, and pauses (cards consulted) 06/27: extubated to 2 liters nasal canula. NSR. SAFETY Patient/Family Target: Aki will maintain hemodynamic stability Progress to Target: Improving As evidenced by: - Per MD note, Aki was admitted to [facility] with septic shock and severe hypotension. VSS [...] IV antibiotics -Possible consult at [facility] for right eyelid problem. andoff - Nyla Cano RN - 06/28/2017 3:13 PM PSTNursing Handoff Patient Daily Goal: To breath better and be able to sleep tonight (06/27/171955) [facility] IP NURSE HANDOFF: Hartley hospital course events: Grant is a 82 y.o. man admitted to the [facility] for septic shock likely secondary to acute cholangitis. 2: Tx to 7A MICU, ERCP done, pressor needs, SVT --> junctional rhythm, inocente, and pauses (cards consulted) 06/27: extubated to 2 liters nasal canula. NSR. SAFETY Patient/Family Target: Aki will maintain hemodynamic stability Progress to Target: Improving As evidenced by: - Per MD note, Aki was admitted to [facility] with septic shock and severe hypotension. Since [...] upper medial. Got an order for simethecone, CamSemi tech told pt they saw a lot [...] when appropriate to meet needs - Add [place] Meche's probiotic yogurt when no longer NPO- one 8oz. Container split into 3x per day - Add Vitamin D3 @ 50,000 units/wk for 6-8 weeks. Recheck Vit D 25 hydroxy, if levels are > 25 ng, switch to Vitamin D3 @ 2000 units per day - Continue to monitor ion Ca, replete prn Following, Sachi Greer M.S. Java J2Ee Lead pgr#[phone] Kiah Beaulieu, MPH, RD, CNS, LD Pager: [phone] Comments: Admitting Dx: Lilian Hurst is a [...] pt report Estimated Nutrition Needs (84.1kg, COPD): 8300-1906 kcals (25-30 kcal/kg), 101-126 gm prote in (1.2-1.5 gm/kg) lan of Care - Nelli Le [facility]-CHILD SUPPORT SPECIALIST - 06/28/2017 10:17 AM PSTFormatting of this note might be different from bella landin. 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 Problem: CHILD SUPPORT SPECIALIST Goals- Adult Goal: Dysphagia Goal Outcome: Goal [...] status, increased temp) DISCHARGE RECOMMENDATIONS: No further CHILD SUPPORT SPECIALIST needs Plan: No indication for further CHILD SUPPORT SPECIALIST therapy at this time. CHILD SUPPORT SPECIALIST team signing off. Please re order as appropriate. Thank you for this consult. Nelli Le MS CCC-CHILD SUPPORT SPECIALIST Speech Language Pathologist Pgr [phone] andoff - Brittney Bautista RN - 06/27/2017 10:33 PM PSTNursing Handoff Patient Daily Goal: To breath better and be able to sleep tonight (06/27/171955) [facility] IP NURSE HANDOFF: Hartley hospital course events: Grant is a 82 y.o. man admitted to the [facility] for septic shock likely secondary to acute cholangitis. 2: Tx to 7A MICU, ERCP done, pressor needs, SVT --> junctional rhythm, inocente, and pauses (cards consulted) 2: extubated to 2 liters nasal canula. NSR. SAFETY Patient/Family Target: kAi will maintain hemodynamic stability Progress to Target: Improving As evidenced by: - Per MD note, Aki was admitted to [facility] with septic shock and severe hypotension. Since [...] and increase PO intake (0 06/27/17 1720) [facility] IP NURSE HANDOFF: Hartley hospital course events: Grant is a 82 y.o. man admitted to the [facility] for septic shock likely secondary to acute cholangitis. 06/26: Tx to 7A MICU, ERCP done, pressor needs, SVT --> junctional rhythm, inocente, and pauses (cards consulted) 06/27: extubated to 2 liters nasal canula. NSR. SAFETY Patient/Family Target: Aki will maintain hemodynamic stability Progress to Target: Improving As evidenced by: - Per MD note, Aki was admitted to [facility] with septic shock and severe hypotension. Since [...] Goal: to use the bathroom (06/27/17 0900) [facility] IP NURSE HANDOFF: Hartley hospital course events: Grant is a 82 y.o. man admitted to the [facility] for septic shock likely secondary to acute [...] Sherman Dodson MD - 06/27/2017 1:30 PM [facility] MED[facility] ICU - TRANSFER SUMMARY Hospital [...] 2017 lan of Care - Jamey Rosa [facility] - 06/27/2017 8:33 AM PSTProblem: RT Goals & Interventions Goal: Actively weaning from ventilator support Patient extubated to 3 lpm nasal cannula. Strong, productive cough. No evidence of stridor. andoff - Herlinda Mccord RN - 06/27/2017 5:03 AM PSTNursing Handoff [facility] IP NURSE HANDOFF: Hartley hospital course events: Grant is a 82 y.o. man admitted to the [facility] for septic shock likely secondary to acute [...] this note might be different from t sartah original. Problem: RT Goals & Interventions Goal: [...] 06/26/2017 PO2 78 06/26/2017 HCO3 23 06/26/2017 T9MTNEIA 96.8 06/26/2017 FIO2 0.21 06/26/2017 ZNP4PDY6 371 06/26/2017 UYR1ABI7 348 06/26/2017 IUC9CFG7 108 (L) 06/26/2017 P/F ratio: Improving/worsening Today Previous day ECMO or ARDS vents only Driving pressure: Plat Press: 12 cm H2O (06/27/17301) - TOTAL PEEP: 6 cm H2O (06/27/17301) = Driving Pressure (DP): 6 cm H2O (06/27/17301) Plat Press: 12 cm H2O Dynamic Lung Compliance: 25 ml/cm CRS Static: 75.00 (06/27/17301) CXR No results found for: CXR lan of [facility] - Teodoro Alvarenga RCP - 06/26/2017 9:53 [...] Based on this assessment Adult Bronchodilator Protocol. [facility] Lela Apodaca - 06/26/2017 8:22 AM PSTAMR 639/FF 82 yom, sepsis. Pt on vent, tolerating well. Sedaition is off due to hypotension. Pt on lev ophed, sent pt into SVT. Resolved with fluid. HR 160, 108 SPB, Et CO2 35, Sat 98%. ETA 10 min [facility] Olga Cohen - 06/26/2017 6:42 AM PSTPer [facility] dispatch. [place] [place] at 0730. ETA [phone] [facility] 4:17 AM PSTgrp 18 pag ed [facility] Abisai - 06/26/2017 4:13 AM PST4:08 [...] by Abisai Whipple at 8 4:13 AM [facility] - Hailey Apodaca RN - 06/26/2017 3:45 AM [facility] Transfer Center technology training associate: Demographics: Lilian Hurst, 82 y.o., male Chief Complaint: Coleocystitis, common bile duct obstruction. Impending respiratory failure . Expectation of care: Management of above: Interventions performed: VS: At presentation to ED temp 102. 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 Currently HR and RR increasing. O2 increased to 6L currently. Satting in low 90s, will probably intubate soon as is having increasing distress Pertinent Labs: Labs sent Diagnostics: and ultrasound done Requested Service Line: MICU Connected to: [facility] at capacity: No DECISION: TCRN spoke with Md. Heath. Amenable to transfer to [facility]. Attempted to place at [facility]. No beds available 2/2 staffing. Returned call to [facility] TC TRANSPORTION: [facility] - Abisai Whipple - 06/26/2017 3:45 AM PST3:42 AM 06/26/2017 Dr. Heath [facility], PT: Aki Hurst : 1935 MICU, [...] | + +--------+ + + + | ZE-XV-PHO-HB,POC RT | Urgent | 06/26/2017 | | [...] + + + | ECG | Short WA interval | | [facility] | | [...] | [address] | [place], [place] | | | CARDIOLOGY | [address] | [address] | | + + + + + [...] | + + + + + | [facility] | [address] | [place] [address] | | | SERVICES, CORE | [place] [...] [facility] | [address] | [place] [address] | | | SERVICES, CORE | [address] [...] | | | LABORATORY | | | BRITISH | | | SERVICES, | | | [...] LABORATORY | [address] | [place] [address] | | | SERVICES, CORE | PARK [...] | + + + + + | [facility] | [address] | [place] [address] | | | SERVICES, CORE | [place] [...] [facility] | [address] | [place], [place] | | | DILAN [facility] [place] | [address] | [address] | | | TESTS | | | [...] | + + + + + | [facility] [employer] | [address] | [place] [address] | | | SERVICES, CORE | CAR[place]INA [...] LABORATORY | [address] | [place] [address] | | | SERVICES, CORE | [place] [...] | | | LABORATORY | | | BRITISH | | | SERVICES, | | | [...] + + | [facility] | [address] [facility] | [place] [address] | | | SARA, YOKASTA | [place] [...] | + + + + + | [facility] | [address] | [place] [address] | | | SERVICESYOKASTA | [address] [...] + | [facility] | [address] [address] | [place], [place] | | | YUE POINT OF CARE | [address] | [address] | | | TESTS | | | [...] Note | + + | Service Account, Intersect ENT Res In Interface - 06/28/2017 10:17 AM [...] - [facility] | [address] | [place], [place] | | | DILAN TURNER OF CARE | [address] | [address] | | | TESTS | | | [...] | [address] | [place], [place] | | | YUE POINT OF CARE | [address] | [address] | | | TESTS | | | [...] | | | LABORATORY | | | BRITISH | | | SERVICES, | | | [...] + + + | [facility] | [address] | [place] [address] | | | SERVICES, CORE | [place]INA [...] LABORATORY | [address] | [place] [address] | | | SERVICES, CORE | PARK [...] LABORATORY | [address] | [place] [address] | | | SERVICES, CORE | PARK [...] + + + + + | [facility] | [address] | [place] [address] | | | SERVICES, CORE | [place] [...] | + + + + + | [facility] | [address] | [place] [place] [address] | | | YOKASTA RUIZ | [place] [...] (H) | 70 - 99 mg/dL | [facility] - | | | GLUCOSE, | | [...] + + | [facility] | [address] | [place], [place] | | | [facility] | [address] | [address] | | | TESTS | | | [...] | + + + + + | [facility] | [address] | [place] [address] | | | SARA, YOKASTA | [place] [...] [facility] | | | GRAVITY | Specific [place] | | LABORATORY | | | | [...] | + + + + + | [facility] | [address] | [place] [address] | | | SERVICES, CORE | [address] | | | + + + + + ERCP (06/27/2017 6:38 AM PST) + + | Specimen | + + | | + + + + + | Narrative | Performed At | + + + | MRN: | [facility] | | [id number] Date: 06/27/2017Patient Name: Lilian Nair #: | ENDOSCOPY | | [id number] of : 1935SN: [id number] Type: | | | InpatientRoom: SORProcedure: ERCPIndications: | | | For therapy of ascending cholangitis; 82 yo M with | | | sepsis, elevated LFTs and US showing mary dil and 1.3 cm | | | CBDProviders: BRINTHA | | | Thompson MENDOZA MD (Doctor), JORDY SOLANO, | | | RN (Nurse), ESTELA DAMIAN RN (Stripper Latex)Referring MD: | | | Requesting Provider: Medicines: [...] The | | | Olympus TJF-Q180V Duodenoscope #[id number] was | | | introduced through the [...] with acute | | | cholangitis. The hotel room attendant film was normal. The esophagus was | [...] Initiated On: | | | 06/27/2017 6:38 [facility] Letter to: DARYL MARCH MD | | [...] + | MRN: | [facility] | | [id number] Date: 06/27/2017Patient Name: Lilian Nair #: | ENDOSCOPY | | [id number] of : 1935SN: [id number] Type: | | | InpatientRoom: SORProcedure: ERCPIndications: | | | For therapy of ascending cholangitis; 82 yo M with | | | sepsis, elevated LFTs and US showing mary dil and 1.3 cm | | | CBDProviders: BRINTHA | | | K. ENESTVEDT, MD (Doctor), JORDY SOLANO, | | | RN (Nurse), ESTELA DAMIAN RN (Stripper Latex)Referring MD: | | | Requesting Provider: Medicines: [...] The | | | Olympus TJF-Q180V Duodenoscope #[id number] was | | | introduced through the [...] with acute | | | cholangitis. The hotel room attendant film was normal. The esophagus was | [...] Initiated On: 06/27/2017 | | | 6:38 [facility] Letter to: DARYL MARCH MD | | [...] LABORATORY | [address] | [place] [address] | | | YOKASTA RUIZ | [place] [...] | + + + + + | [facility] | [address] | [place] [address] | | | SERVICES, CORE | PARK [...] | + + + + + | [facility] | [address] [facility] | [place] [address] | | | SERVICES, CORE | [place] [...] | | | LABORATORY | | | BRITISH | | | SERVICES, | | | [...] | + + + + + | [facility] | [address] [facility] | [place] [address] | | | SERVICES, CORE | PARK [...] + + | ECG | Borderline prolonged WA | | [facility] | | | [...] | [address] | [place], [place] | | | CARDIOLOGY | [address] | [address] | | + + + + + [...] LABORATORY | [address] | [place] [address] | | | SERVICES, CORE | PARK [...] TOBAR | [address] | [place], [place] | | | [facility] | [address] | [address] | | | TESTS | | | [...] Note | + + | Service Account, Ocapi In Interface - 06/27/2017 9:07 AM PST [...] | [address] | [place], [place] | | | [facility] | [address] | [address] | | | TESTS | | | [...] | + + + + + | [facility] | [address] | [place], [place] | | | CARDIOLOGY | [address] | [address] | | + + + + + [...] correct patient, procedure, | | | equipment, java support engineer and site/side marked as required. | | [...] | | | | | | Pathology Resident[place]ohn[place] | | | | | | Louis [...] number | | | | | | [id number]. Bile duct, | | | | | [...] | + + + + + | [facility] | [address] | [place] [address] | | | PATHOLOGY | [address] [...] correct patient, | | | procedure, equipment, java support engineer and site/side marked as required. | | [...] modified Seldinger technique (a | | | sgmntxbg-wkje-rqj-beastc-ysek-turc-xezmnku-rgb-xwfebbro) was used for | | | vessel [...] | + + + + + | [facility] | [address] | [place] [address] | | | SERVICES, CORE | [place] [...] LABORATORY | [address] | [place] [address] | | | SERVICES, CORE | PARK [...] [facility] | [address] | [place] [address] | | | SERVICES, CORE | PARK [...] | + + + + + | [facility] | [address] [facility] | [place] [address] | | | SERVICES, CORE | [place] [...] | | | LABORATORY | | | BRITISH | | | SERVICES, | | | [...] | + + + + + | [facility] [employer] | [address] | [place] [address] | | | SERVICES, CORE | [place] [...] OF | [address] | [place], [place] | | | CARDIOLOGY | [facility] | [address] | | + + + + + [...] LABORATORY | [address] | [place] [address] | | | SERVICES, CORE | PARK [...] | + + + + + | [facility] | [address] | [place] [address] | | | YOKASTA RUIZ | [place] [...] | + + + + + | [facility] | [address] | [place] [address] | | | YOKASTA RUIZ | PARK [...] Note | + + | Service Account, Intersect ENT Res In Interface - 06/26/2017 12:57 PM [...] | + + + + + | [facility] | [address] | [place] [address] | | | SERVICES, CORE | [place] [...] Note | + ----+ | Service Account, Intersect ENT Res In Interface - 06/26/2017 12:57 PM [...] Note | + + | Service Account, Intersect ENT Res In Interface - 06/26/2017 10:12 AM [...] | + + + + + | [facility] | [address] | [place] [address] | | | SERVICES, | [address] [...] LABORATORY | [address] | [place] [address] | | | SERVICES, | [address] [...] | + + + + + | [facility] | [address] | [place] [address] | | | SERVICES, | [address] [...] + + + | ECG | Prolonged WA interval | | [facility] | | [...] | [address] | [place], [place] | | | CARDIOLOGY | [address] | [address] | | + + + + + [...] | | | | | | [place] | | + + + + + [...] + | [facility] | [address] | [place] [address] | | | [place] | | | [...] + | [facility] | [address] | [place] [address] | | | [place] | | | [...] | + + + + + | [facility] | [address] | [place] [address] | | | SERVICES, CORE | PARK [...] LABORATORY | [address] | [place] [address] | | | SERVICES, CORE | [place] [...] | + + + + + | [facility] | [address] [facility] | [place] [address] | | | SERVICES, CORE | [address] | | | + + + + + CULTURE, BLOOD BACTI & YEAST [facility] (06/26/2017 9:39 AM PST) + + + [...] LABORATORY | [address] | [place] [address] | | | SERVICES, CORE | PARK [...] LABORATORY | [address] | [place] [address] | | | SERVICES, CORE | PARK [...] | + + + + + | [facility] | [address] | [place] [address] | | | SERVICES, CORE | PARK [...] LABORATORY | [address] | [place] [address] | | | SERVICES, CORE | PARK [...] | | | LABORATORY | | | BRITISH | | | SERVICES, | | | [...] LABORATORY | [address] | [place] [address] | | | SERVICES, CORE | PARK [...] | + + + + + | [facility] | [address] | [place] [address] | | | SERVICES, CORE | [address] | | | + + + + + WH-TL-FLA-HB,POC RT (06/26/2017 8:55 AM PST) + + + + + + | Component | Value | Ref Range | Performed | Pathologist | | | | | At | Signature | + + + + + + | HCO3 | 22.4 | 22 - 28 mmol/L | [facility] - | | | VENOUS, POC | [...] + + + | [facility] | [address] | [place], [place] | | | [facility] | [address] | [address] | | | TESTS | | | [...]
--- OUTSIDE RECORDS SUMMARY | ~2020-03-03 | XMS | Encounter Summary ---
Demographics + + + | Address | [address] | | | [place] [address] | + + + | Home Phone | | + + + | Preferred Language | Unknown | + + + | Marital Status | | + + + | Mosque Affiliation | Unknown | + + + | Race | White | + + + | Ethnic Group | Not or | + + + Author + + + | Author | [facility] | | | and [place] | + + + | Organization | [facility] | | | [...] Team Providers + +------+ + | [facility] Former Name | Role | Phone | + [...] + | 07/26/ | Telephone | [facility] | Jamey Hdz | Care Coordination | | 2017 | | GASTROENTEROLOGY | MD Sarkis [address] | | | | | [address] TREASURE | [address] [facility] | | | | | [address] [place], [place] | [place] [address] | | | | | [address] | [phone] | | | | | [phone] | | | +--------+ + + + [...] Star cole, the patient's general surgeon in [place]. Dr. Neumann is requesting an ERCP for [...]
--- OUTSIDE RECORDS SUMMARY | ~2020-03-03 | XMS | Encounter Summary ---
Demographics + + + | Address | [address] | | | [place] [address] | + + + | Home Phone [...] Team Providers + +------+ + | Care Replenishment Specialist Name | Role | Phone | [...] fixation of | | | | Rd [facility] | [facility] [address] | acetabular | | | | Hospital Admitting | [place], [place] | lesly-prosthetic | | | | Desk Located on the | [id number] | fracture | | | | 9th floor | [phone] | | | | | [place], [place] | | | | | | [address] | | | +--------+---------+ + + + [...] differe nt from the original. [facility] [place] DEPARTMENT OF ORTHOPAEDICS & REHABILITATION INPATIENT HOSPITAL DISCHARGE SUMMARY & INTERDISCIPLINARY INSTRUCTIONS Patient: Lilian Hurst CSN: [id number] Admission Date: 05/31/2018 Discharge Date: 06/06/2018 Attending Physician: Nguyễn Shepard MD PCP: SHAHEEN Love Service: [facility] Orthopaedics & Rehabilitation Diagnoses Principal Final [...] they suspect your wound is infected. Call [facility] Orthopedics first at . Activity NON Weight bearing on left leg. For approximately 4 weeks to be determined at postoperative clinic visit. Condition on Discharge Stable Follow-Up Appointments ORTHOPEDICS OUTPATIENT CLINIC: Future Appointments Provider Department Dept Phone Center 07/02/2018 1:40 PM Nguyễn Chance Working Orthopaedics at [facility] [phone] Orthopedics PCP: As needed for any medical [...] mg by mouth once daily at bedtime. [facility] Orthopaedic Service Pain Policy At the [...] administration instructions. - Call Orthopedic Clinic at [phone] if any persistent, localized swelling that does [...] and ask for the orthopaedic surgery resident business continuity strategy director. Additional Post-Op Instructions / What to [...] a SNF "I certify that post-hospital inpatient nursing home facility care is medically necessar y [...] Condition on Discharge: Improved Discharging Patient To: [facility] Facility Date and Time of Discharge Summary Completion: 06/07/2018, 2:45 PM Discharging Provider: ELISE Mckeon Discharging Attending: Nguyễn Shepard MD Thank you for the opportunity to take care of Lilian Hurst during this inpatient stay, it has been our pleasure. ELISE Mckeon [facility] Department of Orthopaedics & Rehabilitation [address] [place] [address] Mail Code: OP31 [facility] [address] documented in t his encounter Medications at [...] to have left pelvic fracture, transferred to [facility] Orthopedic Surgery service for surg ical management. [facility] initially consulted for pre-operative evaluation. Nausea/Vomiting [...] says he uses sparingly. On arrival to [facility] he was on 4 L NC [...] Clinical Hospitalist Services [facility] Pager [phone] Please call or page me with any questions or concerns. Doe Newman MD - 06/06/2018 9:11 AM PST Orthopaedic Surgery Progress Note Patient: /Age: MRN: CSN: Date: Admission Date: Hospital Day: Orthopaedic Attending: Lilian Hurst 1935 83 y.o. [id number] 06/06/2018 05/31/2018 6 Nguyễn Shepard MD Diagnosis: [...] to have left pelvic fracture, transferred to [facility] Orthopedic Surgery service for surg ical management. [facility] initially consulted for pre-operative evaluation. Nausea/Vomiting [...] says he uses sparingly. On arrival to [facility] he was on 4 L NC [...] Clinical Hospitalist Services [facility] Pager [phone] Please call or page me with any questions or concerns. Doe Newman MD - 06/05/2018 7:10 AM PST Orthopaedic Surgery Progress Note Patient: /Age: MRN: CSN: Date: Admission Date: Hospital Day: Orthopaedic Attending: Lilian Hurst 1935 83 y.o. [id number] 06/05/2018 05/31/2018 5 Nguyễn Shepard MD Diagnosis: [...] Gongora MD [facility] Department of Orthopaedics & Rehabilitation [address] [place] [address] Mail Code: OP31 [facility] [address] Kg Snidre MD - 06/04/2018 10:03 AM PST Internal [...] to have left pelvic fracture, transferred to [facility] Orthopedic Surgery service for surg ical management. [facility] initially consulted for pre-operative evaluation. Nausea/Vomiting [...] says he uses sparingly. On arrival to [facility] he was on 4 L NC [...] Clinical Hospitalist Services [facility] Pager [phone] Please call or page me with any questions or concerns. oulton, Devendra Allen MD - 06/04/2018 7:48 AM PST Orthopaedic Surgery Progress Note Patient: /Age: MRN: CSN: Date: Admission Date: Hospital Day: Orthopaedic Attending: Lilian Hurst 1935 83 y.o. [id number] 06/04/2018 05/31/2018 4 Nguyễn Shepard MD Diagnosis: [...] to make a follow up appointment in count includes the [facility] 1 weeks with ORTHO TRAUMA & FRACTURE, Ana Gill, FISHING INSTRUCTOR - (Jie a nd Working) Subjective: Has [...] refill < 2 seconds Doe Gongora MD [facility] Department of Orthopaedics & Rehabilitation [address] [place] [address] Mail Code: OP31 [facility] [address] Devendra Scales MD - 06/03/2018 8:32 PM PST [facility] DEPARTMENT OF ORTHOPAEDICS & REHABILITATION [...] 8:33 PM [facility] Department of Orthopaedics & Rehabilitation [address] [place] [address] Mail Code: OP31 [facility] [address] Jade Messina MD - 06/02/2018 8:36 AM [...] Please call Orthopaedic Trauma and Fracture at [phone] to schedule a followup within 2 weeks from discharge. ALEXA SEARS MD Pager: [phone] 06/02/2018 Doe Newman MD - 06/01/2018 8:27 AM PST Orthopaedic Surgery Progress Note Patient: /Age: MRN: CSN: Date: Admission Date: Hospital Day: Orthopaedic Attending: Lilian Hurst 1935 83 y.o. [id number] 06/01/2018 05/31/2018 1 Nguyễn Shepard MD Diagnosis: [...] to make a follow up appointment in count includes the [facility] 2-3 weeks with ORTHO TRAUMA & [...] Gongora MD [facility] Department of Orthopaedics & Rehabilitation [address] [place] [address] Mail Code: OP31 [facility] [address] documented in this enco unter Procedure Notes Nguyễn Shepard MD - 06/03/2018 4:58 PM PSTAssociated Order(s): OPERATION RECORDProced ure(s): TN OPEN OFFICE SPECIALIST FIX COMPLEX ACETABUL FXPre-Procedure Diagnose(s): Closed fracture of both anterior and posterior columns of left acetabulum (HCC)Post-Procedure Diagnose(s): Clos ed fracture of both anterior and posterior columns of left acetabulum (HCC)Date of Service: 06/03/2018 Attending Surgeon: Nguyễn Shepard MD Buyer Renter(s): Devendra Da Silva MD. Preoperative Diagnosis: Left [...] He was [facility]. A sacral bump consi sting of [...] 3 incisions. The patient was awoken from [facility] endotracheal anesthesia and transferred to the [...] problem was referred to my care at [facility] by another orthopaedic surgeon. The patient i s from the [facility] and traveled many miles to get to [facility], bypassing several other spitals due to [...] the patients care. Nguyễn Shepard MD ZMW/PRINCE /[id number] documented in this encounter Consult Notes Teresita Bobo PA-C - 06/05/2018 9:22 PM PSTINPATIENT GERIATRICS CONSULT - FOLLOW U P Admission Date: 05/31/2018 Hospital Day: 5 Referring Provider: Nguyễn Shepard MD Consulting Provider: TERESITA BOBO PA-C PCP: SHAHEEN Gustafson Consult Question: frailty and delirium management ID: Lilian Hurst (Frank) is an 83 y.o. 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 Please page consult pager [phone] if new questions for the geriatrics team [...] Sherly Ellison I spent 22 minutes in cfxk-xn-yozo care of Mr Hurst and in discussion on his unit with other providers, with > 50% in counseling/coordination of care regarding delirium management and prevention, pain control, mobility, and chart review and documentation on the unit. ROBEL Mohan PA-C Inpatient Geriatrics Consult Service Division of Internal Medicine & Geriatrics [facility] Pager: [phone] aShannon ramos H - 06/04/2018 6:04 PM [...] Dr. Nguyen. Jose Guadalupe Santiago, MS4 Pgr [phone] HISTORY OF PRESENT ILLNESS Lilian Hurst is a 83 y.o. male with a past medical history significant for hemodynamic ally significant gastrointestinal bleed in 2013 on omeprazole, ongoing SVT, choledocholithia sis and cholangitis with ERCP s/p sphincterotomy and stenting on 06/2017, cholecystectomy, as piration pneumonitis, COPD, and hypertension. He was transferred to [facility] for left pelvic fracture now s/p [...] on file Social History Narrative Originally from [place], [place], but moved for a time in his teens to [facility]. 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 Enjoys [employer] his garden each summer, watching westerns, and game shows. Lives in his own home next doo r to his daughter with his Mirian saez. Typical day: wakes at 6 am, putters in the kitchen; breakfast is two homemade oatmeal cook ies, coffee and tangerines. Mirian De Anda wakes around 9 and he feeds her. Spends a few hours on [employer] "to see what everyone is talking about," [...] HOSPITALIST DISCHARGE SUMMARY Patient ID: Lilian Hurst [id number] 78 y.o. 1935 Admit date: 08/10/2013 Discharge [...] The patien t was brought to [facility] and was transferred to [facility] for a GI evaluation. Dr. Ca from gastroenterology was consulted because of the ac [place] GI bleed. The patient was started on [...] y.o. 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 Had onset of abdominal pain and bloating [...] pulmonary disease) ([facility]) GI bleed 2013 esophageal ulcer s/p clipping 2013 HTN (hypertension) Normocytic anemia Hgb around 11 in 2013 Prediabetes SVT (supraventricular tachycardia) ([facility]) unclear hx. "Possible SVT" per [...] Social History Social History Narrative Originally from [place], [place], but moved for a time in his teens to [facility]. 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 Enjoys [employer] his garden each summer, watching westerns, and game shows. Lives in his own home next doo r to his daughter with his Mirian saez. Typical day: wakes at 6 am, putters in the kitchen; breakfast is two homemade oatmeal cook ies, coffee and tangerines. DogMirian wakes around 9 and he feeds her. Spends a few hours on [employer] "to see what everyone is talking about," [...] moist mucous membran es, non-erythematous, no exudate. [place]. Dentition in fair repair. Cardiovascular: RRR with intermittent ectopic beats, no murmurs/rubs/gallops. No lower extr emity edema. Respiratory: Decreased breath sounds in bases L>R, otherwise clear. Breathing comfortably o n 2LPM by NC. Skin: Warm, dry, without rashes. Nails well trimmed. Neuro: Orientation: Oriented to self, location ("[facility], room 3"), date, year, president and reason [...] for: TSH Lab Results Component Value Date [id number] 8.3 06/26/2017 No results found for: FERRITIN [...] "fighter" per Marianna Social: Originally from [place], but moved for a time in his teens to [facility]. 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 Enjoys g rowing his garden [...] utilize delirium order set in [facility] to identify cause and guide appropriat e [...] Precious Bobo, Geriatric[place] [phone] with any further nursing questions or concerns, if you would like t o speak with our server cashier business continuity strategy director, they can be reached at pager [phone]. Rosita Paul RN, [place] Geriatric Nurse Educator/PPL [phone] Vic Zhang MD - 06/03/2018 9:12 AM PST HOSPITALIST INPATIENT PROGRESS NOTE Author: Vic Petty MD, PhD PCP: SHAHEEN Love Hospital Day:3 ID: Lilian Hurst is a 83-year-old man with COPD and HTN who presented to an OSH after GLF, found to have left pelvic fracture, transferred to [facility] Orthopedic Surgery service for surgical management. [facility] consulted for pre-operative evaluation. 24h Events: [...] to have left pelvic fracture, transferred to [facility] Orthopedic Surgery service for surg ical management. [facility] consulted for pre-operative evaluation. # Pre-operative [...] says he uses sparingly. On arrival to [facility] he was on 4L NC and [...] PhD Clinical Hospitalist and Medicine Teaching Services [facility] Pager [phone] I spent more than 26 minutes zutd-xu-ohyt with the patient of which greater than [...] best of my knowledge. Home medication assessment: CRADLE PLACER medications updated per verbal [place] fill history [...] regarding this information please contact pharmacy, pager [phone] Thank you, Tabitha Calvert PharmD Critical Care [...] to have left pelvic fracture, transferred to [facility] Orthopedic Surgery service for surgical management. [...] to have left pelvic fracture, transferred to [facility] Orthopedic Surgery service for surg ical [...] says he uses sparingly. On arrival to [facility] he was on 4L NC and [...] Medicine Teaching Services [facility] Pager [phone] I spent more than 28 minutes [id number] with the patient of which greater than [...] to have left pelvic fracture, transferred to [facility] Orthop edic Surgery service for surgical management. [facility] consulted for pre-operative evaluation. History derived [...] moderate hematoma. He was t ransferred to [facility] Orthopedic Surgery for surgical management. Current [...] done PFTs. He has a nebulizer at [facility], but uses it sparingly. At baseline, [...] on 4L once he ar rived at [facility]. He has been sating between 88-94%, [...] to have left pelvic fracture, transferred to [facility] Orthopedic Surgery service for christina gical management. [facility] consulted for pre-operative evaluation. # Pre-operative [...] says he uses sparingly. On arrival to [facility] he was on 4L NC and [...] PhD Clinical Hospitalist and Medicine Teaching Services [facility] Pager [phone] I spent 75 minutes in care of [...] OR Sunday - ELLEN SEARS MD Pager: [phone] 05/31/2018 [facility] DEPARTMENT OF ORTHOPAEDICS & REHABILITATION HISTORY & PHYSICAL EXAMINATION Patient: Lilian Hurst Encounter Date: 05/31/2018 Attending Physician: Nguễyn Shepard MD Paged Time: Not paged Arrival [...] pulmonary disease) ([facility]) 2014: GI bleed Comment: esophageal ulcer s/p clipping 2013 No date: HTN (hypertension) No date: Normocytic anemia Comment: Hgb around 11 in 2013 No date: Prediabetes No date: SVT (supraventricular tachycardia) ([facility]) Comment: unclear hx. "Possible SVT" [...] & FRACTURE, The orthopaedics consult pager is #[phone], please call with questions. Doe Gongora MD, MPH Orthopaedic Surgery Resident p [id number] signed by Nguyễn Shepard MD at 06/01/2018 [...] - Orthopaedic Trauma [facility] documented in this encounter Miscellaneous Notes [...] light/urinal/phones/yankour suction all in reach. Nurse notified. [facility] BASIC MOBILITY Difficulty turning over in [...] to do/total assistance - Total/Dependen t Assist [facility] Basic Mobility Total Score 16 Interpretation of [facility] Short Form - Basic Mobility: CMS [...] recommendations: to be determined . ANANYA Toney [id number] Rui - Kiah Corral RN - 06/05/2018 9:20 PM PSTNursing Handoff Patient Daily Goal: sleep (06/05/182039) Patient Specific Preferences: cluster care (06/05/182039) [facility] IP NURSE HANDOFF: [facility] [...] emesis x3 in AM Hx: COPD, HTN, PA 2018, stents, CHF, SVT SAFETY Patient/Family Target: [...] (06/04/182024) Patient Specific Preferences: cluster care (06/04/182024) [facility] IP NURSE HANDOFF: [facility] [...] emesis x3 in AM Hx: COPD, HTN, PA 2017, stents, CHF, SVT SAFETY Patient/Family Target: [...] Daily Goal: sleep (06/04/182024) Patient Specific Preferences: [facility] (06/04/182024) [facility] IP NURSE HANDOFF: [facility] [...] emesis x3 in AM Hx: COPD, HTN, PA 2018, stents, CHF, SVT SAFETY Patient/Family Target: [...] (06/02/182017) Patient Specific Preferences: cluster care (06/01/182041) [facility] IP NURSE HANDOFF: [facility] events: 05/31: tx from [facility]. Fell 05/30- left hip and pelvic fx 06/01: skeletal traction 06/02: Elevated HR EKG showed SR with PACs. Takes dilt at baseline (none since admission), s tarted on 6.25 mg metop noc 06/02. 06/03 early am 4 beats of v-tach 06/04: coffee ground emesis x3 in AM Hx: COPD, HTN, PA 2018, stents, CHF, SVT SAFETY Patient/Family Target: [...] 06/04/2018 4:58 PM PST Physical Therapy Evaluation [id number] LILIAN HURST [facility] Day: 4 Date of : 1935 [...] pulmonary disease) ([facility]) GI bleed 2013 HTN (hypertension) Normocytic anemia Prediabetes SVT (supraventricular tachycardia) ([facility]) Past Surgical History: Procedure Laterality [...] better, get home when he can Communication/Barriers: kazakh/none Pain: indicates 12/28 Vital Signs: see doc [...] x 3' bed to chair Outcome Measure: [facility] BASIC MOBILITY Difficulty turning over in [...] to do/total assistance - Total/Dependen t Assist [facility] Basic Mobility Total Score 13 Interpretation of [facility] Short Form - Basic Mobility: CMS [...] says that she needs to return to [place] to get back to work and take care of both her and patient's home ( lives next door to Carlos). She is asking for information on getting Power of Professor Of Historical Theology paperwork so she can take care o f patient's finances and pay his bills. LUIS FERNANDO provided following information: -Patient will need to be deemed cognitively clear and able to consent for himself in order to sign POA forms - can locate POA forms online (many options available on internet, due to fact that P OA is legal document- [facility] staff are not allowed to provide POA forms to patients or familie s as it would constitute 'legal advice' -Form will require notary. [facility] does not have notaries on staff. [...] notary list to email addresses provided: [email or web address] Recommendation/Plan/Referrals: will work on POA. Provided her with contact info for mobile [employer]. LUIS FERNANDO provided letter for 's employer. No other social work needs identified at this time. Social work referral completed. Closing case. See medical and ancillary service notes for other needs and care plans. Please call or page if additional social work needs are identified. Hansa Bhatt LCSW [employer] St[employer]- 13K Oncology/7A Medical ICU/ 9K Orthopedics Phone: [phone] Pager:[phone] andoff - Maricruz Hicks RN - 06/04/2018 8:38 AM PSTNursing Handoff Patient Daily Goal: Pain control, sleep (06/02/182017) Patient Specific Preferences: cluster care (06/01/182041) [facility] IP NURSE HANDOFF: [facility] events: 05/31: tx from [place]. Fell 05/30- left hip and pelvic fx 06/01: skeletal traction 06/02: Elevated HR EKG showed SR with PACs. Takes dilt at baseline (none since admission), s tarted on 6.25 mg metop noc 06/02. 06/03 early am 4 beats of v-tach Hx: COPD, HTN, PA 2018, stents, CHF, SVT SAFETY Patient/Family Target: [...] pain medication information: none Functional Epidural: N/A LASTING MACHINE OPERATOR: N/A Respiratory: RR: 16 , O2 Sat: 95 % , O2 Delivery: Nasal cannula Breath Sounds: Ex MEI: LLL: RUL: RLL: JYOTI No Comment: no hx. Hx copd. Goal sats 88-94. Cardiac: BP: 128/72 HR: 73. Hx svt, vt, afib and nsr with pvc's and pac's GI: Nausea/Vomiting Status: No Signs/Symptoms: Interventions: Assessment: Comments: denies nausea : Last void: 1500 Contact Name: Nathan [phone] Contact Number: Nathan [phone] Family contacted: Yes Comment:will update prior to tranfser Belongings:returning PIV x 2. Surgical incisions CDI. Confused as in preop. Oriented x self only and follows commands. Restless and tries to get oob. rief Op Note - Nguyễn Shepard MD - 06/03/2018 2:12 PM PSTFormatting of this note might be different from the o riginal. [facility] Department of Orthopaedics & Rehabilitation BRIEF OPERATIVE NOTE Patient: /Age: MRN: CSN: Date: Admission Date: Hospital Day: Lilian Hurst 1935 83 y.o. [id number] 06/03/2018 05/31/2018 3 Attending Surgeon: Nguyễn Shepard MD Buyer Renter(s): 1. Mitesh Da Silva MD Preoperative Diagnosis(es): [...] to make a follow up appointment in [facility] 4 weeks with MD Drea 8. Anticipated Discharge: 1-3 days Nguyễn Shepard MD Orthopaedic Trauma andoff - Lakshmi Ortiz RN - 06/02/2018 11:07 PM PSTNursing Handoff Patient Daily Goal: Pain control, sleep (06/02/182017) Patient Specific Preferences: cluster care (06/01/182041) [facility] IP NURSE HANDOFF: [facility] events: 05/31: tx from [place]. Fell 05/30- left hip and pelvic fx 06/01: skeletal traction 06/02: Elevated HR EKG showed SR with PACs. Takes dilt at baseline (none since admission), s tarted on 6.25 mg metop noc 06/02. 06/03 early am 4 beats of v-tach Hx: COPD, HTN, PA 2018, stents, CHF, SVT? SAFETY Patient/Family Target: [...] (06/01/182041) Patient Specific Preferences: cluster care (06/01/182041) [facility] IP NURSE HANDOFF: [facility] events: 05/31: tx from [place]. Fell 05/30- left hip and pelvic fx 06/01: skeletal traction Hx: COPD, HTN, PA 2018, stents, CHF COMFORT/ANXIETY/BEHAVIOR Patient/Family Target: Manage [...] then dropping to 70-80s with irregular beats. [facility] consult notified and patient placed on [...] for tachycardia & irregular rate -NPO at [place]; pre-op check list tonight EDUCATION NEEDS: D/C PLAN: OR Sunday morning Barriers to discharge: OR Sunday andoff - Karen Corral RN - 06/01/2018 11:31 PM PSTNursing Handoff Patient Daily Goal: sleep, bowel movement (06/01/182041) Patient Specific Preferences: cluster care (06/01/182041) [facility] IP NURSE HANDOFF: [facility] hospital course events: 05/31: tx from [place]. Fell 05/30- left hip and pelvic fx 06/01: placed in skeletal traction 15 lbs Hx: COPD, HTN, PA 2018, stents, CHF COMFORT/ANXIETY/BEHAVIOR Patient/Family Target: Manage [...] Patient Daily Goal: RN advocacy: safety (06/01/18 8022) Patient Specific Preferences: cluster care (05/31/182046) [facility] IP NURSE HANDOFF: [facility] hospital course events: 05/31: tx from [place]. Fell 05/30- left hip and pelvic fx 06/01: skeletal traction Hx: COPD, HTN, PA 2018, stents, CHF COMFORT/ANXIETY/BEHAVIOR Patient/Family Target: Manage [...] post OR. James Tucker PT, DPT Pager: [phone] lan of Care - Bob Hernandez RCP [...] hip and pelvic fx Hx: COPD, HTN, PA 2018, stents, CHF COMFORT/ANXIETY/BEHAVIOR Patient/Family Target: Manage [...] RN - 05/31/2018 6:55 PM PSTNursing Handoff [facility] IP NURSE HANDOFF: [facility] hospital course events: 05/31: tx from [place]. Fell 05/30- left hip and pelvic fx Hx: COPD, HTN, PA 2018, stents, CHF COMFORT/ANXIETY/BEHAVIOR Patient/Family Target: Manage [...] [facility] hospital course events: 05/31 tx from [facility] . Fell 05/30- left hip and pelvic fx Hx: COPD, HTN, PA 2018, stents, CHF Recommendations Forward: Takes pills whole with water Was receiving 1[facility]: bedrest MOBILITY PLAN:- LAST TIME MOBILIZED:- PAIN: 5mg oxycodone ORDER FOLLOW-UP: - EDUCATION NEEDS: - D/C PLAN: surgery sunday ransfer Note - Gabriela Espinoza, D.O. - 05/30/2018 7:25 PM PST [facility]PATIENT [facility]IC[facility]SF[facility] ACCEPT NOTE Medicine Hospitalist Attending Author: Mehran Espinoza DO PCP: SHAHEEN Love [address] / [place] [address] FAX: [phone] I was called by transfer line to discuss possible transfer of Lilian Hurst to [facility] Medicine Service. The history is obtained from referring provider and I have not corrob orated history with patient or record, as patient still under direct care of [facility]. Referring Physician: Dr. Cabello Referring Site (or [facility] Service): [facility] Specialists involved: , orthopedics Reason for Transfer/Admission: fractured pelvis Floor or ICU Request: Floor HPI/PMH/Exam: Lilian Hurst is an 83 year old man with COPD, hypertension, prior PA, mild chf, who pr esented with a left acetabular fracture after a ground-level fall. Had a ground-level fall this morning on ice. 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 Now has complex acetabular and pelvic fracture. Has multiple medical comorbidities including COPD, hypertension, prior PA, "mild chf", none of which appear to b e active currently. Highly functional at baseline. Current Vitals: 97.9, heart rate 65, 153/85, 92% on RA Pertinent Studies: Labs: Hgb 14.5, platelets 159; chemistries and EKG within normal limits Imaging: chest x-ray within normal limits Procedures: not applicable Code Status: FULL code Disposition: (accepted or declined) After discussion with the emergency department and phys risao-qk-fzn-day, ultimately admitted to orthopedics as primary with [facility] consulting. Please contact [facility] when the patient arrives and we will provide medical and lesly-operative consultation. Mehran Espinoza D.O. Insurance Auditorloader demolder [facility] Clinical Hospitalist Service Pager [phone] ransfer Note - Daniela Clarke MD - 05/30/2018 6:00 PM [id number] M copd htn prior PA CHF Left acetabular fracture after GLF Ortho [...] help if needed Daniela Daigle MD DIONNE [facility] Department of Emergency Medicine documented in [...] LABORATORY | [address] | [place] [address] | | | SERVICES, CORE | RICHARD [...] | + + + + + | [facility]ORAT[facility] | [address] | [place] [address] | | | YOKASTA RUIZ | RICHARD [...] | + + + + + | [facility] | [address] | [place] [address] | | | SERVICES, CORE | RICHARD [...] | + + + + + | [facility] | [address] | [place] [address] | | | SERVICES, CORE | RICHARD [...] LABORATORY | [address] | [place] [address] | | | SERVICES, CORE | PARK [...] | + + + + + | [facility]ORATORY | [address] | [place] [address] | | | SERVICES, [facility] | [address] | | | + + + + + X-RAY PORTABLE 2 VIEW ABDOMEN (KUB AND UPRIGHT) (06/04/2018 2:32 PM PST) + + | Specimen | + + | | + + + + + | Narrative | Performed At | + + + | EXAM: TN 2 VIEW ABDOMEN (KUB AND UPRIGHT) History: [...] Interface - 06/04/2018 4:24 PM PST EXAM: TN 2 VIEW | | ABDOMEN (KUB AND [...] LABORATORY | [address] | [place] [address] | | | SERVICES, CORE | PARK [...] LABORATORY | [address] | [place] [address] | | | SERVICES, CORE | [address] | | | + + + + + INR (06/04/2018 9:37 AM PST) + +-------+ + + + | Component | Value | Ref Range | Performed | Pathologist | | | | | At | Signature | + +-------+ + + + | INR | 1.04 | 0.90 - 1.20 INR | [facility] | | | | | | LABORATORY [...] LABORATORY | [address] | [place] [address] | | | SERVICES, CORE | PARK [...] + + | Performing | Address | City/State/[facility] | Phone Number | | Organization | | | | + + + + + | [facility] | [address] | [place] [address] | | | SARA, YOKASTA | [address]ICHARD [...] | | Attending Surgeon: Nguyễn Shepard MD Buyer Renter(s): Devendra Allen | | MD Avinash. Preoperative [...] He | | was transferred to the [facility] flat top. A sacral bump consisting [...] We | | then proceeded to the [facility] for the start point for the LC2 [...] problem was referred to my care at [facility] by another | | orthopaedic surgeon. The patient is from the [place] area and traveled many miles to | | get to [facility], bypassing several other hospitals due to [...] 06/03/2018 14:26:09DT: | | 06/03/2018 16:58:33Job #: [id number] | + + MAGNESIUM, PLASMA (06/03/2018 4:37 [...] LABORATORY | [address] | [place] [address] | | | YOKASTA RUIZ | RICHARD [...] OF | [address] | [place], [place] | | | CARDIOLOGY | [facility] | [address] | | + + + + + [...] TOBAR | [address] | [place], [place] | | | DILAN TURNER OF [facility] | [address] | [address] | | | TESTS | | | | + + + + + X-RAY PELVIS 4+ VIEWS (06/03/2018 2:05 [facility]) + + | Specimen | + + [...] | | | POC | | | DIALN TURNER | | | | | | [...] AMADOU | [address] | [place], [place] | | | DILAN TURNER OF [facility] | [address] | [address] | | | TESTS | | | [...] LABORATORY | [address] | [place] [address] | | | SERVICES, CORE | PARK [...] the MDRD equation recommended by the | [facility] | | National Kidney Disease Education [...] | + + + + + | [facility] | [address] | [place] [address] | | | YOKASTA RUIZ | RICHARD [...] Note | + + | Service Account, [employer] Res In Interface - 06/02/2018 11:23 AM [...] DEPT OF | [address] | [place], [place] | | | CARDIOLOGY | [address] | [address] | | + + + + + [...] | + + + + + | [facility] | [address] | [place] [address] | | | SERVICES, CORE | RICHARD [...] + + | [facility] | [address] | [place] [address] | | | SERVICES, CORE | PARK [...] the MDRD equation recommended by the | [facility] | | National Kidney Disease Education [...] LABORATORY | [address] | [place] [address] | | | SERVICES, CORE | PARK [...] [facility] | [address] | [place] [address] | | | SERVICES, | [address] [...] LABORATORY | [address] | [place] [address] | | | SERVICES, | [address] [...] | + + + + + | [facility] | [address] | [place] [address] | | | SERVICES, CORE | RICHARD [...] LABORATORY | [address] | [place] [address] | | | SERVICES, CORE | PARK [...] the MDRD equation recommended by the | [facility] | | National Kidney Disease Education Program. [...] | + + + + + | [facility]AT[facility] | [address] | [place] [address] | | | SERVICES, YOKASTA | RICHARD [...] LABORATORY | [address] | [place] [address] | | | SERVICES, CORE | PARK [...] | + + + + + | [facility] | [address] | [place] [address] | | | SERVICES, CORE | RICHARD [...]
--- OUTSIDE RECORDS SUMMARY | ~2020-03-03 | XMS | Encounter Summary ---
Demographics + + + | Address | [address] | | | [place] [address] | + + + | Home Phone [...] Team Providers + +------+ + | Care Counter Top Assembler Name | Role | Phone | + [...] | Procedural Unit at | MD Rashida [address] | (ERCP f/u) | | | | Mikayla Borges [address] | | | | | [address] | [place], [place] | | | | | [place], | [address] | | | | | 4th floor [place], | [phone] | | | | | [place] [address] | | | | | | [phone] | | | +--------+ + + + [...] ampulla, nor was it seen on the dental aide image. - Several filling defects consistent with [...] scheduled for 08/14/17 ERCP w/Dr. Penny at [place] to remove stent. elephone Encounter - Hedy [...] notes are for his 07/13/17 je at [facility] with Dr. Flowers. Called Dr. Flowers's office and s/w [place] about need for ERCP and what plans were. She said pt did not want to come back to [facility] so they referred to Dr. Disla in [place] for ERCP. If his office declines then they will send him back to [facility]. [place] planned to f/u with Dr. Disla's [...] clear duct Given that we were in [facility], images were not available RENE MALDONADO MD 06/27/2017 6:48:17 AM documented in this encoun ter Plan of Treatment Not on filedocumented as of this encounter Visit Diagnoses Not on filedocumented in this encounter"
--- OUTSIDE RECORDS SUMMARY | ~2020-03-03 | XMS | Encounter Summary ---
Demographics + + + | Address | [address] | | | [place] [address] | + + + | Home Phone [...] | | | | | | [facility] | | | | | | Hospital Admitting | | | | | | Desk Located on the | | | | | | 9th floor | | | | | | [place], [place] | | | | | | [address] | | | +--------+ + + + [...]
--- OUTSIDE RECORDS SUMMARY | ~2020-03-03 | XMS | Encounter Summary ---
Demographics + + + | Address | [address] [address] | | | [place] [address] | + + + | Home Phone | | + + + | Preferred Language | Unknown | + + + | Marital Status | | + + + | Baptist Affiliation | Unknown | + + + [...] Team Providers + +------+ + | Care Teacher Vocational Training Name | Role | Phone | [...] | | | | | | | [place] ERCP DX | | | | | | | COLLECTION | | | | | | | SPECIMEN | | | | | | | BRUSHING/WAS | | | | | | | JOSE [place] | | | | | | | ERCP | | | | | | | BILIARY/PANC | | | | | | | DUCT STENT | | | | | | | EXCHANGE | | | | | | | W/DIL&WIRE | | | | | | | [place] | | | | | | | [...] ST [place] | | | | | [place], [place] | [place] [address] | | | | | [address] | [phone] | | | | | [phone] | | | +--------+---------+ + + + [...] placement on 06/26/17. He underwent cholecystectomy in [place] and on the IOC there were possible [...] BACK SURGERY 1981 Lower back COLONOSCOPY 09/23/2013 [facility] ENDOSCOPY 08/10/2013 [facility] HIP FRACTURE SURGERY Left 2002 [...] [facility] Removal of lesion Right 2009 Right hand [...] Class 2 (upper half of tonsil fossa) [place] Society of Anesthesia Grade:ASA 2 - A [...] Jamey Penny MD 08/14/2017 [facility] VERIFICATION OF CONSENT (PARQ) The patient was counseled regarding the procedure, its indications, risks, potential compli cations and alternatives. Any questions were answered. Consent was obtained. Jamey Penny MD, 08/14/2017 12:59 [facility] Portions of this chart may have been created with [employer] voice recognition software. Occasi onal wrong-word or [...] INSTRUCTIONS Patient: William Burns : 1935 Acct: [id number] Exam Date: Monday, August 14, 2017 Doctor: [...] 1 day. Avoiding fatty foods such as Arabic [place], hamburgers, [place], ham and pork products, will [...] 08/14/2017 | PROVATION | | 12:57 PMMRN: [id number] #: [id number] of : | | | 1935dm Type: AmbulatoryAge: 82Room: [facility] 02Gender: MaleNote | | | Status: FinalizedAttending MD: JAMEY PENNY [facility]: | | | ERCPIndications: Bile duct stone(s), Biliary stent | | | removalProviders: JAMEY PENNY MD, Kiah Orozco, | | | RN, Klaus Loco CMA, Vani Wisdom, | | | Escalator Operator, Yinka Dominguez MD | | | [...] the procedure well.Findings: A | | | associate professor of history film of the abdomen was obtained. Surgical [...] | | was it seen on the associate professor of history image. - Several filling defects | | [...] PMScope Out: | | | 1:58:46 PM [facility], [address] [place] [address], | | | [place] [address] | | | - KUB today to [...] |Scope Out: 1:58:46 PM | | | [facility], [facility], [place], [place] | | | [address] | | + + -+ + +---------+ [...] | | | Anticoagulation Range: | | [facility] | | | | 2.0 - [...] [address] | [place] | [phone] | | [facility] | | [address] | | | - LABORATORY | | [...] 108 | 70 - 109 mg/dL | [facility] | | | | | | [facility] | | | | | [facility]ICAL | | | | | | CENTER - | | | | | | LABORATORY | | + + + + + + | BUN | 13 | 7 - 18 mg/dL | [facility] | | | | | | [facility] | | | | | | MEDICAL | | | | | | CENTER - | | | | | | LABORATORY | | + + + + + + | Creatinine | 0.85 | 0.60 - 1.30 | [facility] | | | | | [...] mL/min/1.73m2 | [facility] | | | [place]an | RATE,ESTIMATED | | MEDICAL | | | | mL/min/1.88p2Afbg than | | CENTER - | | [...] [address] | [place] | [phone] | | [facility] | | [address] | | | - LABORATORY | | [...] + | [address] | [address] | [place], [place] | [phone] | | [facility] | | [address] | | | - LABORATORY | | [...]
--- OUTSIDE RECORDS SUMMARY | ~2020-03-03 | XMS | Clinical Summary ---
Demographics + + + | Address | [address] | | | [place] [address] | + + + | Home Phone [...] + + | Author | [facility] | + + + | Organization | [facility] | + + + | Address | Unknown | + + + | Phone | Unavailable | + + + Support + + +---------+ + | Name | Relationship | Address | Phone | + + +---------+ + | None Per Pt | ECON | Unknown | Unavailable | + + +---------+ + Care Team Providers + +------+ + | Care Fastener Technologist Name | Role | Phone | + +------+ + | Herlinda Maldonado | PCP | | + +------+ + Source Comments BETTINA is fully live on both [facility] InPatient.[facility] Allergies + + + + + + [...] | | | | | | | [id number]: Qty: 2 on | | | | [...] | | | | | | | [id number]: Qty: 1 on | | | | [...] +--------+ | MODA MEDICARE | MODA | [id number] | 05/21/19 | [phone] | [address] | Medica | | | MEDICA | | 17-[address] | 4 | [address] | re | | | RE HMO | | sent | | [place], | | | | | | | | [place] [address] | | + +--------+ +--------+ + +--------+ + +--------+ +--------+ + + | Guarantor Name | Accoun | Relation to | Date | Phone | Billing Address | | | t Type | Patient | of | | | | | | | | | | + +--------+ +--------+ + + | William Burns | Person | Self | [birth year] | | [address] | | | al/Fam | | 1935 | [phone] | [place] [address] | | | michelle | | | [...]
--- OUTSIDE RECORDS SUMMARY | ~2020-03-03 | XMS | Encounter Summary ---
Demographics + + + | Address | [address] | | | [place] [address] | + + + | Home Phone | | + + + | Preferred Language | Unknown | + + + | Marital Status | | + + + | Gnosticist Affiliation | Unknown | + + + | Race | White | + + + | Ethnic Group | Not or | + + + Author + + + | Author | [facility] | | | and [place] | + + + | Organization | [facility] | | | and [...] Providers + +------+ + | Care Medicine Technologist Name | Role | Phone | [...] [address] | | | | | [place], | [address] [place] | | | | | [place] [address] | [place] [address] | | | | | [phone] | [phone] | | | | | | | [...]
--- OUTSIDE RECORDS SUMMARY | ~2020-03-03 | XMS | Encounter Summary ---
Demographics + + + | Address | [address] | | | [place] [address] | + + + | Home Phone [...] + + + | Author | [facility] | | | and [place] | + + + | Organization | [facility] | | | [...] Team Providers + +------+ + | Care Clerk Operator Name | Role | Phone | [...] | | | pulmonary | [address] | [address] | | | | | disease, | St [place] | [address] | | | | | unspecified | [place], [place] | [place] | | | | | COPD type | [address] | [address] Phone: | | | | | ([facility]) | Phone: | [phone] | | | | | | [phone] | Fax: | | | | | | Fax: | [phone] | | | | | | [phone] | | +--------+ + + + + [...] | Atrial | Maximilian | [address] | | | | | fibrillation | MD Jon | [place], | | | | | , | [address] | [place] | | | | | unspecified | St [place] | [address] | | | | | type (HCC) | [place], [place] | Phone: | | | | | Procedures | [address] | [phone] | | | | | ECHO | Phone: | Fax: | | | | | Complete | [phone] | [phone] | | | | | | Fax: | | | | | | | [phone] | | +--------+--------+ + + + + [...] fibrillation | [address] | [address] | | | | | ([facility]) | [address] | [address] [place] | | | | | Procedures | [place], | [place], [place] | | | | | [place] | [place] | [address] Phone: | | | | | | [address] | [phone] | | | | | | Phone: | Fax: | | | | | | [phone] | [phone] | | | | | | Fax: | | | | | | | [phone] | | +--------+--------+ + + + + Encounter Details +--------+---------+ + + + | Date | Type | Department | Care Team | Description | +--------+---------+ + + + | 01/09/ | Office | [facility] | Maximilian Abreu | Atrial fibrillation, | | 2019 | Visit | CARDIOLOGY [address] | MD Jon [address] | unspecified type | | | | [address] [place], | [address] [place] | ([facility]) (Primary Dx); | | | | [place] [address] | [place] [address] | Right fascicular | | | | [phone] | block; Essential | | | | [...] PM PDT Referral to Dr Hairston - Optical Model Maker And Tester in [facility] at [facility]. 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 Electronically signed [...] Chronic | Ordered: 01/13/2019 | | to [facility] | Referral | e | obstructive [...] CARE: | | | SHAHEEN Toro READING CHANGE COORDINATOR: Salvador Abreu MD, | | | PhD, [facility] 48-HOUR HOLTER MONITOR REPORT DATE: 03/26/2019 | [...] 01:15. 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
--- OUTSIDE RECORDS SUMMARY | ~2020-03-03 | XMS | Encounter Summary ---
Demographics + + + | Address | [address] | | | [place] [address] | + + + | Home Phone | | + + + | Preferred Language | Unknown | + + + | Marital Status | | + + + | Confucianist Affiliation | Unknown | + + + | Race | White | + + + | Ethnic Group | Not or | + + + Author + + + | Author | [facility] | | | and [place] | + + + | Organization | [facility] | | | and [...] Team Providers + +------+ + | Care Pierce And Shave Press Operator Name | Role | Phone | [...] | | | | | | | [place] ERCP DX | | | | | | | COLLECTION | | | | | | | SPECIMEN | | | | | | | BRUSHING/WAS | | | | | | | [place]SE [place] | | | | | | | ERCP | | | | | | | BILIARY/PANC | | | | | | | DUCT STENT | | | | | | | EXCHANGE | | | | | | | W/DIL&WIRE | | | | | | | [place] | | | | | | | [...] + + | 08/14/ | Hospital | [facility] | Jamey Hdz | | | 2018 | Encounter | MED CTR XRAY [address] | MD Sarkis [address] | | | | | [place] | [address] [place] | | | | | [place] [address] | [place] [address] | | | | | [phone] | | | | | | | [...]
[~2020-03-03 10:00] MED LIST changes: +ATENOLOL25 MG PO
[2020-03-03] MEDS ORDERED: AMBIEN5 MG PO (10:23)
--- OUTSIDE RECORDS SUMMARY | 2020-03-03 10:34 | XMS | Encounter Summary ---
Demographics + + + | Address | [address] | | | [place] [address] | + + + | Home Phone | | + + + | Preferred Language | Unknown | + + + | Marital Status | | + + + | Faith Affiliation | NON | + + + | Race | White | + + + | Ethnic Group | Not or | + + + Author + + + | Author | [facility] | + + + | Organization | [facility] | + + + | Address | Unknown | + + + | Phone | Unavailable | + + + Support + + +---------+ + | Name | Relationship | Address | Phone | + + +---------+ + | None Per Pt | ECON | Unknown | Unavailable | + + +---------+ + Care Team Providers + +------+ + | Care Statistical Engineer Name | Role | Phone | + +------+ + | Herlinda Maldonado | PCP | | + +------+ + Encounter Details +--------+ + + + + | Date | Type | Department | Care Team | Description | +--------+ + + + + | 06/20/ | Documentati | General Internal | Annabella Gallardo DO | | | 2019 | on [facility] [address] | | | | | [address] | [place], | | | | | [place], | [place] [address] | | | | | [place] [address] | [phone] | | | | | [phone] | | | +--------+ + + + + Social History + +-------+ +--------+------+ | Tobacco Use | Types | Packs/Day | Years | Date | | | | | Used | | + +-------+ +--------+------+ | Former Smoker | | | | | + +-------+ +--------+------+ + + | Comments: per chart. Cannot verify right now pt intubated. | + + + + +---------+ + | Alcohol Use | Drinks/Week | oz/Week | Comments | + + +---------+ + | Yes | | | occasional | + + +---------+ + + + + | Sex Assigned at | Date Recorded | | | | + + + | Not on file | | + + + documented as of this encounter Functional Status + + + + | Functional Status | Response | Date of Assessment | + + + + | Because of a physical, mental, or emotional | Yes | 06/04/2018 | | condition, do you have serious difficulty | | | | doing errands alone such as visiting the | | | | doctor? | | | + + + + + + + + | Cognitive Status | Response | Date of Assessment | + + + + | Because of a physical, mental, or emotional | Yes | 06/04/2018 | | condition, do you have serious difficulty | | | | concentrating, remembering, or making | | | | decisions? (5 years old or older) | | | + + + + documented as of this encounter Miscellaneous Notes Telephone Encounter - Crystal Evans MD - 06/20/2018 6:32 PM PSTPatient came to my offic e at 1830 tonight states that he was very worried that his bowel regimen was going to be red uced too much too fast. He stated he would rather be on the "loose" side of things than cons tipated again. He wanted to make sure that he was going to continue to get BID Miralax and B ID Senna. I explained to him that we discontinued the PO Dulcolax. We will keep the Miralax and Senna twice a day at his request. Electronically signed by Crystal Evans MD at 019 6:34 PM PSTdocumented in this encounter Plan of Treatment Not on filedocumented as of this encounter Visit Diagnoses Not on filedocumented in this encounter
--- OUTSIDE RECORDS SUMMARY | 2020-03-03 10:34 | XMS | Encounter Summary ---
Demographics + + + | Address | [address] | | | [place] [address] | + + + | Home Phone | | + + + | Preferred Language | Unknown | + + + | Marital Status | | + + + | Spiritism Affiliation | NON | + + + | Race | White | + + + | Ethnic Group | Not or | + + + Author + + + | Author | [facility] | + + + | Organization | [facility] | + + + | Address | Unknown | + + + | Phone | Unavailable | + + + Support + + +---------+ + | Name | Relationship | Address | Phone | + + +---------+ + | None Per Pt | ECON | Unknown | Unavailable | + + +---------+ + Care Team Providers + +------+ + | Care Pit Crew Support Worker Name | Role | Phone | + +------+ + | Herlinda Maldonado | PCP | | + +------+ + Reason for Visit +---------+--------+ + | Reason | Onset | Comments | | | Date | | +---------+--------+ + | Post Op | 06/25/ | | | | 2019 | | +---------+--------+ + Encounter Details +--------+ + + + + | Date | Type | Department | Care Team | Description | +--------+ + + + + | 06/25/ | Telephone | Orthopaedics | Nguyễn Shepard | Post Op | | 2019 | | Faculty at [facility] | MD [place] [address] | | | | | for [facility] and | [address] | | | | | Healing [address] | [facility] [place] | | | | | [facility] | [address] | | | | | Health and Healing, | [phone] | | | | | [facility] | | | | | | Floor [place], [place] | | | | | | [address] | | | | | | [phone] | | | +--------+ + + + [...] this encounter Miscellaneous Notes Telephone Encounter - Agustin Cook MA - 06/26/2018 11:34 AM PSTCalled and informed jesica nt that he would need to call and schedule his follow ups. Advised that we will send Medical records when requested TTelephone Encounter - Hannah Smith - 06/26/2018 11:18 AM PSTPatient is wanting to se e Dr. Stephane Stern Orthopedic surgeon at [facility] orthopedic Surgery and Fracture cli vilma. Clinic phone is [phone]. elephone Encounter - Agustin Cook MA - 06/26/2018 9:09 AM PSTDrTroy Shepard Re commends patient to see Javad Gallardo MD ph: Or Sarkis Liang MD ph: [phone] LVM informing patient Telephone Encounter - Hannah Smith - 06/25/2018 4:36 PM PSTPatient would like to see k post op care in [place]. It is much closer per the patient. elephone Encounter - Agustin Cook MA - 2018 4:21 PM PSTLVM informing patient of Dr. Shepard Message. Advised patient to call us ba evangelist. Per Working; "think if William had a more straight forward operation that it would be acceptable, but he is essentially my first patient at [facility] with an all percutaneous operation of his acetabulu m. He needs to see a trauma surgeon. All the trauma surgeons in [place] are in the [facility] or [place] or [place]. If his insurance would cover him going across state lines I could fa cilitate him going to [facility], or there are a few guys in [place] or [place]. My strong preference is for him to stay with us" 19 4:22 PM PSTTelephone Encounter - Hannah Smith - 06/25/2018 8:57 AM PSTPatient: Josiah anayaoswaldo James Burns Last Visit: No past encounter found in [facility]. Next Visit: Next Appointment in [facility] is on 07/02/18 at 1:20 pm with Juan Shepard MD. Recent Surgery: Yes- 06/03/18 Procedure: Closed reduction and percutaneous fixation of the left acetabulum. Provider: Working Reason for call: Patient is no longer in the rehab facility and states that he is going to have a very hard time traveling for his follow up appointments with Dr. Shepard. Patient jeff ves in [place] and would like to know if there is anyone he can follow up with at [facility] for post op care. Please advise. Patient is aware that it is ideal for the surgeon w vee performed the surgery to follow up with post op care however, will check with his medical team. Do we have permission to leave you a confidential voicemail at the call back number you pro vided?: Yes- documented in this en counter Plan of Treatment Not on filedocumented as of this encounter Visit Diagnoses Not on filedocumented in this encounter
--- OUTSIDE RECORDS SUMMARY | 2020-03-03 10:34 | XMS | Encounter Summary ---
Demographics + + + | Address | [address] | | | [place] [address] | + + + | Home Phone | | + + + | Preferred Language | Unknown | + + + | Marital Status | | + + + | Yazidi Affiliation | NON | + + + | Race | White | + + + | Ethnic Group | Not or | + + + Author + + + | Author | [facility] | + + + | Organization | [facility] | + + + | Address | Unknown | + + + | Phone | Unavailable | + + + Support + + +---------+ + | Name | Relationship | Address | Phone | + + +---------+ + | None Per Pt | ECON | Unknown | Unavailable | + + +---------+ + Care Team Providers + +------+ + | Care Cnc Operator Name | Role | Phone | + +------+ + | Herlinda Maldonado | PCP | | + +------+ + Reason for Visit + + + | Reason | Comments | + + + | Insomnia | | + + + Encounter Details +--------+ + + + + | Date | Type | Department | Care Team | Description | +--------+ + + + + | 06/19/ | Documentati | General Internal | Annabella Gallardo DO | Insomnia | | 2019 | on | Medicine at Offsite | [address] | | | | | [address] | [place], | | | | | [place], | [place] [address] | | | | | [place] [address] | [phone] | | | | | [phone] | | | +--------+ + + + [...] documented as of this encounter Miscellaneous Notes Addendum Note - Neymar Evans MD - 06/20/2018 1:34 PM PST Addended by: NEYMAR EVANS MD on: 06/20/2018 01:34 PM Modules accepted: Orders elephone Encounter - Annabella Gallardo DO - 06/20/2018 1:18 PM PSTS: Carlos says his abdominal pain has resolved; now reports loose stool. Has had 1 BM this morning. Eating well, and denies (-) bloating, n ausea, vomiting, heartburn or blood in stool. Denies (-) fecal incontinence. He states he had poor sleep last night, and was only able to sleep about 4-5 hours; woke up at 2AM and states he was unable to get back to sleep. He says melatonin does not work for h im at all; at home, he states Ambien has worked very well for him, though he doesn't use it regularly. He reports also left leg pain, but states that Tylenol and Ibuprofen do not work well for h im. A&P: # Loose stool - Will discontinue oral bisacodyl today - Continue senna and Miralax BID, given persistent ileus # Insomnia - Discontinue melatonin - Start trazodone 50 mg qHS; will f/u response tomorrow - Continue Ramelteon 8 mg qHS - Although patient has had good response to Ambien in the past, would like to avoid any TAKE AWAY ATTENDANT effects in a patient with recent injury and at relative fall risk (drowsiness, dizziness, e tc.) Patient discussed with attending physician, Dr. Neymar Evans, who agrees with assessment an d plan. Annabella Gallardo DO PGY-1 | Internal Medicine [facility] elephone Encounter - Annabella Gallardo DO - 06/19/2018 11:14 AM PSTS: Following 2 enemas yesterday evening, Mr. Louis mtz reported a large bowel movement and almost immediate resolution of his abdominal pain. S tates current pain is 2/10 and "almost gone". He's feeling quite hungry, as he is on a clear liquid diet. Also reports he was able to sleep 7-8 hours. Woke up around 4AM, but was able to fall back to sleep around 5AM. O: Elderly, thin male in NAD. RRR. Abdomen is soft, NTND. Bowel sounds are present. KUB (06/18/2018) reviewed and notable for "mild colonic dilatation consistent with ileus. Th e small bowel loops are unremarkable. There is a slight amount of rectal stool present". A&P: 83 yo M with hip fracture s/p repair. Post-operative course and SNF stay c/b ileus, abdomin al pain and insomnia. # Abdominal pain, resolved # Constipation, resolved - Continue bowel regimen: Miralax BID, senna BID, bisacodyl daily and PRN suppositories and enemas - Will advance CLD to solids, with emphasis on carbohydrates, fruits and "bank officer foods" wh ile ileus continues to resolve # Insomnia, ?resolving Hard to say whether the trial of trazodone or resolution of abdominal pain is what helped p atient achieve 7-8 hours of sleep. - Will continue with Ramelteon 8 mg qHS - For now, hold off on trazodone and reassess sleep overnight; if patient reports poor slee p, can consider replacing Ramelteon with trazdone Patient discussed with attending physician, Dr. Evans, who agrees with assessment and plan . Annabella Gallardo DO PGY-1 | Internal Medicine [facility] documented in this encounter Plan of Treatment Not on filedocumented as of this encounter Visit Diagnoses Not on filedocumented in this encounter
--- OUTSIDE RECORDS SUMMARY | 2020-03-03 10:34 | XMS | Encounter Summary ---
Demographics + + + | Address | [address] | | | [place] [address] | + + + | Home Phone | | + + + | Preferred Language | Unknown | + + + | Marital Status | | + + + | Episcopalian Affiliation | NON | + + + | Race | White | + + + | Ethnic Group | Not or | + + + Author + + + | Author | [facility] | + + + | Organization | [facility] | + + + | Address | Unknown | + + + | Phone | Unavailable | + + + Support + + +---------+ + | Name | Relationship | Address | Phone | + + +---------+ + | None Per Pt | ECON | Unknown | Unavailable | + + +---------+ + Care Team Providers + +------+ + | Care Core Composer Feeder Name | Role | Phone | + +------+ + | Herlinda Maldonado | PCP | | + +------+ + Reason for Visit + + + | Reason | Comments | + + + | Abdominal pain | | + + + Encounter Details +--------+ + + + + | Date | Type | Department | Care Team | Description | +--------+ + + + + | 06/18/ | Documentati | General Internal | Annabella Gallardo DO | Abdominal pain | | 2019 | on | Medicine at Offsite | [address] | | | | | [address] | [place], | | | | | [place], | [place] [address] | | | | | [place] [address] | [phone] | | | | | [phone] | | | +--------+ + + + [...] Telephone Encounter - Crystal Evans MD - 06/18/2018 8:09 PM PSTAbdominal x-ray resulted this afternoon and I reviewed the images online as well. Results: There is mild colonic dilatation consistent with ileus. The small bowel loops are unremarkable. There is no soft tissue mass or significant pathologic calcification. There is slight amount of rectal stool present. Conclusion: Mild colonic ileus. There is slight amount of rectal stool present. Called this evening and spoke with Carlos who had just had a saline enema. Explained to him what an ileus is, that it's as if his bowel is "stunned" or asleep and that it's not letting things through as easily. Reassured him that there is no s/o perforation or a "twisted" bow el that he was worried about. Explained that often the best treatment is rest and not taking in any solid foods for a couple of days while we wait for the bowel to "wake up" and start moving again. Explained to him that he had this condition in the hospital as well, when he v omited, but that the ileus was "higher up" at that point. He seemed relieved to hear this an d stated that he was okay with the liquid diet that has already been ordered. Then stated to me "I've got to go doc, they gave me an enema and I've gotta go take care of what's coming out." Dr. Gallardo will see him in the AM to f/u. Continue with bowel rest and clear liquid diet. elephone Encounter - Annabella Gallardo, - 06/18/2018 4:23 PM PST Mr. Burns continued to have significant pain overnight. States he was unable to eat dinner night or breakfast today; tried a couple bites of soup yesterday evening, and a banana th is morning, which caused worsening pain. Does not have worse pain with fluids (coffee, water , etc.). Notes there is no change while suppine vs. sitting upright. Denies (-) nausea, vomi ting, bloating, heartburn. Tried a suppository last evening and warm prune juice this mornin g, but has yet to have a significant BM. Passed gas this afternoon, which he said improved t he pain. It continues to be dull, with intermittent sharp pains. Only slept about an hour la night. Exam: Physical exam unchanged from yesterday; diffuse abdominal tenderness, but abdomen is soft w ithout guarding or rebound. Bowel sounds present. Assessment & Plan: # Abdominal pain # Constipation - Mineral oil enema tonight - Switch to CLD - If enema fails, consider lactulose PRN with goal at least 1 BM/day # Insomnia - Trial trazodone 50 mg this evening; will assess response tomorrow Patient has been discussed with attending, Dr. Crystal Evans, who agrees with assessment and plan. Annabella Gallardo DO PGY-1 | Internal Medicine [id number] signed by Annablela Gallardo DO at 06/18/2018 4:29 PM PSTdocumented in thi s encounter Plan of Treatment Not on filedocumented as of this encounter Visit Diagnoses Not on filedocumented in this encounter
--- OUTSIDE RECORDS SUMMARY | 2020-03-03 10:34 | XMS | Encounter Summary ---
Demographics + + + | Address | [address] | | | [place] [address] | + + + | Home Phone | | + + + | Preferred Language | Unknown | + + + | Marital Status | | + + + | Yarsanism Affiliation | NON | + + + | Race | White | + + + | Ethnic Group | Not or | + + + Author + + + | Author | [facility] | + + + | Organization | [facility] | + + + | Address | Unknown | + + + | Phone | Unavailable | + + + Support + + +---------+ + | Name | Relationship | Address | Phone | + + +---------+ + | None Per Pt | ECON | Unknown | Unavailable | + + +---------+ + Care Team Providers + +------+ + | Care Clinical Director Name | Role | Phone | + +------+ + | Herlinda Maldonado | PCP | | + +------+ + Reason for Visit + + + | Reason | Comments | + + + | Hospital Admission | [facility] Admission | + + + Encounter Details +--------+ + + + + | Date | Type | Department | Care Team | Description | +--------+ + + + + | 06/11/ | SNF Care | General Internal | Crystal Evans, | Hospital Admission | | 2019 | Visit | Medicine at Offsite | [address] | ([facility] SNF Admission) | | | | [address] | [address] | | | | | [place], | [place], [place] | | | | | [place] [address] | [address] | | | | | [phone] | [phone] | | | | | | | | +--------+ + + + [...] + + documented as of this encounter Last Filed Vital Signs + + + + + | Vital Sign | Reading | Time Taken | Comments | + + + + + | Blood Pressure | 125/76 | 06/11/2018 4:44 PM | | | | | PST | | + + + + + | Pulse | 76 | 06/11/2018 4:44 PM | | | | | PST | | + + + + + | Temperature | 36.8 C (98.3 F) | 06/11/2018 4:44 PM | | | | | PST | | + + + + + | Respiratory Rate | 16 | 06/11/2018 4:44 PM | | | | | PST | | + + + + + | Oxygen Saturation | - | - | | + + + + + | Inhaled Oxygen | - | - | | | Concentration | | | | + + + + + | Weight | 81 kg (178 lb 9.6 | 06/11/2018 4:44 PM | | | | oz) | PST | | + + + + + | Height | - | - | | + + + + + | Body Mass Index | 27.97 | 06/02/2018 4:00 PM | | | | | PST | | + + + + + documented in this encounter Functional Status + + + [...] + + documented as of this encounter Progress Notes Chloe Recinos MD - 06/11/2018 10:00 AM PST [facility] Intake Exam - Anna Thomas "Carlos" James Burns is a 83 y.o. male with a PMH significant for prior L THR, SVT, HT N, COPD (non-O2 dependent), prior UGIB. He is admitted to [facility] for skilled therapy following a hospitalization at [facility] from 05/31 to 06/06 for Left Acetabular Fracture in the setting of a prior THR. Hospital course was significant for: Carlos was transferred to [facility] from [facility] on 05/31 for management of a complex L acetabul ar and pelvic fracture that he sustained in the setting of a GLF at home while changing the battery in his truck. OSH showed a comminuted L pelvic fracture involving the acetabulum, is chium, and left pubic bone. He has had a history of a prior L THR. He is highly functional a nd independent at baseline. He was brought to [facility] given his medical comorbidities and peyton rn of local Ortho team about performing surgery in that setting. Seen by Preoperative Consul t team who reccommended Lasix 20mg IV for s/o volume overload on 06/01/18. He was taken to the OR on 06/03/18. He underwent a closed reduction and percutaneous fixatio n of the L acetabulum. He was started on 6 weeks of Lovenox for DVT ppx. Was given Cefazolin x 24 hours intraoperatively. Was made non-weight bearing to the L side. He will need 4 week f/u in Ortho Clinic with x-rays prior to visit (already scheduled for 07/02/18 at [facility] Ortho ). His course was c/b bloating and ab pain with dark brown emesis on 06/04/18 and multiple loos e stools leading up to the emesis for which GI was consulted. He was briefly made NPO. He marcial d missed his PPI x 2 days prior to this episode. GI felt that there was post-operative ileus and that given no s/o blood in stool, unlikely that EGD would ion exchange operator. He was also seen by the Geriatrics Consult Team for post-op delirium on 06/04/18 who found h im to be attentive and recommended adequate control of pain, minimizing potential deliriogen ic medications, and providing with a regular day/night cycle. There was concern about him h aving been in bed for 4 days straight as causing some of his confusion. They recommended a V itamin D level check (8.1) but no supplementation was started. His mentation improved prior to discharge. HPI: Since discharge from the hospital, Mr. Burns feels frustrated with loss of independence and abilities since he is generally very active. He is hopeful that doing PT will help him get back to his baseline. His pain is well controlled with PRN oxycodone. He has not had a BM in 2 days and has not passed gas since this morning and feels his stomach is becoming "tight". GERIATRIC REVIEW OF SYSTEMS ADLs: Independent in dressing, bathing, toileting, eating, transferring, walking IADLs: Independent in telephone, grocery shopping, making meals, laundry, money management, transportation Living situation: Lives alone with his daughter living next door Hearing: impaired, no correction Vision: impaired with glasses Assistive Devices: none Nutrition: Normal, no weight loss/gain Cognition: No impairment Sleep: No difficulty Incontinence: urinary frequency but no incontinence or leaking Falls: 2 mechanical "tripping" falls in past year Depression/anxiety: None POLST: none GERIATRIC ROS/ROS: Obtained from review of chart and discussion with patient and nursing st aff and 12 point review of system is otherwise negative/or unable to obtain. Patient Active Problem List Diagnosis COPD (chronic obstructive pulmonary disease) (HCC) Essential hypertension Physical deconditioning Atrial fibrillation (HCC) Diverticulosis of colon GERD (gastroesophageal reflux disease) Raynaud's syndrome Right fascicular block Closed fracture of anterior column of left acetabulum with routine healing HTN (hypertension) Past Medical History: Diagnosis Date Acute cholangitis 06/27/2017 Aspiration pneumonitis (HCC) 06/28/2017 Atrial fibrillation ([facility]) 08/13/2017 Choledocholithiasis 06/26/2017 Closed fracture of anterior column of left acetabulum with routine healing 06/11/2018 COPD (chronic obstructive pulmonary disease) ([facility]) Diverticulosis of colon 01/01/2007 Overview: Note: Unchanged GERD (gastroesophageal reflux disease) 08/13/2017 GI bleed 2013 esophageal ulcer s/p clipping 2013 HTN (hypertension) Klebsiella sepsis ([facility]) 06/27/2017 Normocytic anemia Hgb around 11 in 2013 Prediabetes Raynaud's syndrome 05/23/2017 Right fascicular block 05/23/2017 S/P ERCP 06/28/2017 SVT (supraventricular tachycardia) (HCC) unclear hx. "Possible SVT" per chart in 2012. Patient's Medications New Prescriptions No medications on file Previous Medications ACETAMINOPHEN 500 MG ORAL TABLET Take 2 tablets by mouth three times daily. BISACODYL EC 5 MG ORAL TABLET,DELAYED RELEASE (DR/EC) Take 2 tablets by mouth once da michelle. CALCIUM CARBONATE CHEWABLE 200 MG ELEMENTAL (500 MG TOTAL SALT) ORAL TABLET,CHEWABLE Chew and swallow 2 tablets every two hours as needed. DILTIAZEM CD 24 HOUR RELEASE 240 MG ORAL CAPSULE,EXTENDED RELEASE 24HR Take 240 mg by mouth once daily. ENOXAPARIN 40 MG/0.4 ML SUBCUTANEOUS SYRINGE Inject 0.4 mL under the skin (SUBC) once daily in the evening. Indications: Deep Vein Thrombosis Prevention FUROSEMIDE 20 MG ORAL TABLET Take 20 mg by mouth once daily. GUAIFENESIN LA (GUAIFENESIN LA) 600 MG ORAL TABLET EXTENDED RELEASE 12HR Take 1 table t by mouth two times daily. LISINOPRIL 20 MG ORAL TABLET Take 20 mg by mouth once daily. MELATONIN 3 MG ORAL TABLET Take 1 tablet by mouth once daily in the evening. OMEPRAZOLE 40 MG ORAL CAPSULE,DELAYED RELEASE(DR/EC) Take 40 mg by mouth once daily i n the evening. OXYCODONE (IMMEDIATE RELEASE) 5 MG ORAL TABLET Take 1-2 tablets by mouth every four h ours as needed for moderate pain. POLYETHYLENE GLYCOL 17 GRAM ORAL POWDER IN PACKET Mix 1 packet and take orally once d aily. PRAVASTATIN 10 MG ORAL TABLET Take 10 mg by mouth once daily at bedtime. SENNA-DOCUSATE 8.6-50 MG ORAL TABLET Take 2 tablets by mouth two times daily. Modified Medications Modified Medication Previous Medication ALBUTEROL 0.083% 2.5 MG /3 ML (0.083 %) INHALATION SOLUTION FOR NEBULIZATION albuterol 0 .083% 2.5 mg /3 mL (0.083 %) inhalation solution for nebulization Inhale 3 mL every six hours as needed. Respiratory therapy or nurse to administer per protocol Indications: Chronic Obstructive Pulmonary Disease Respiratory therapy or nurse to administer per protocol Indications: Chronic Obstructive Pulmonary Disease Discontinued Medications No medications on file Allergies Allergen Reactions Aromatic Dyspnea Budesonide-Formoterol Dyspnea "I can't breathe when I use it." Fluticasone-Salmeterol Dyspnea "I can't breathe when I use it." Eucalyptus Dyspnea Fluticasone Dyspnea Hydrochlorothiazide Rash There is no immunization history on file for this patient. Social History Social History Substance Use Topics Smoking status: Former Smoker Smokeless tobacco: Not on file Comment: per chart. Cannot verify right now pt intubated. Alcohol use Yes Comment: occasional FH: Reviewed and noncontributory. BP 125/76 | Pulse 76 | Temp 36.8 C (98.3 F) | RR 16 | Wt 81 kg (178 lb 9.6 oz) | BMI 27 .97 kg/(m^2) General: No acute distress, pt is a 83 y.o. year old male appearing stated age Mental Status: Alert and oriented x 4/ mood "good" and affect congruent (brief period of t earfulness when discussing loss of independence) HEENT: Extraocular eye movements intact, no evidence of scleral icterus or conjunctival he morrhage. Heart: Normal rate and regular rhythm without murmur Lungs: Clear to auscultation bilaterally, normal respiratory effort Abdomen: Slightly firm in lower quadrants, non-distended, non tender. NABS. Extremities: Without edema, clubbing, or cyanosis. Skin: Without evidence of rash or lesion. Small incision sites at anterior suprapubic reg ion and left lateral hip are covered in dressings which are CDI and no surrounding erythema or edema. Neuro: No focal neurological deficits appreciated Musculoskeletal: Generalized weakness, NWB on LLE Labs and imaging are reviewed from hospitalization. Lab Results Component Value Date NA 136 06/06/2018 K 4.1 06/06/2018 CL 100 06/06/2018 BICARB 28 06/06/2018 BUN 14 06/06/2018 EGFRAFRICAN >60 06/06/2018 EGFRNONAFR >60 06/06/2018 CR 0.64 06/06/2018 GLU 86 06/06/2018 CA 8.3 06/06/2018 ANIONGAP 8 06/06/2018 ANIONALBCOR 8 06/29/2017 Lab Results Component Value Date WBC 8.81 06/06/2018 HB 11.7 06/06/2018 HCT 36.2 06/06/2018 PLT 186 06/06/2018 MCV 92.6 06/06/2018 RDW 43.8 06/06/2018 Assessment and Plan: William Burns (Frank) is an83 y.o. independent, community dwelling [place] with CHF, non-O2 dep COPD, SVT, past left hip fracture and hypertension transferred from an outside hospital on 05/31 with a left two column acetabular fracture sustained in a mechanical fall, now s/p closed reduction with percutaneous fixation on 06/03, with hospitalization complicated by hyp eractive delirium and post-op ileus. # Physical deconditioning after hospitalization and surgery # Closed acetabular fracture w/ routine healing # Fall from 4 feet high # Post-fracture pain Progressing as expected with pain well-controlled needing PRN opiates about 2x/day and alwa ys requesting 10mg. Non-fragility fracture, complicate by pre-existing hardware from previou s hip arthroplasty. Likely that his pain medications are contributing to his constipation an d we reviewed this with Carlos today. - enoxaparin 40 mg x6 weeks (07/15/18) for DVT ppx per Ortho - oxycodone 5-10 mg q4h for pain - APAP 1000 mg scheduled - dry dressing, change daily until no further drainage - remove sutures/harjit in 2-3 weeks (OK for SNF staff to do this) 06/17-06/24 - NWB for 4 weeks - Ortho follow up 07/02 at 1:40pm (scheduled) # Hypovitaminosis D History of vitamin D <10 during past hospitalization but no record of treatment and patient does not recall and treatment, not currently taking supplementation. Vitamin D during hospi talization was 8. - Ergocalciferol 50,000 units q7days x 8 weeks - Vitamin D 2000 units daily after - Repeat level recommended in 3 months # Constipation # Post-op ileus Post op ileus was resolved while inpatient however now with constipation that is causing ab dominal discomfort and more recently has stopped passing gas, concerning for recurrent ileus especially in setting of opioid use. Intensify bowel regimen and follow closely. If no impr ovement in AM, repeat abd XR. - increase PEG to 17gm BID - increase senna to 2 tabs BID - ducolax suppository 10mg x1 now - follow closely in AM, tap water enema and repeat abd XR if no improvement # COPD No PFTs, no supplemental o2 or home inhalers, has home nebulizer which he uses rarely. Was hypoxic inpatient to 88% requiring supplemental o2 which was weaned prior to discharge, comp licated by oversedation from opioids. Functional status at baseline is excellent. He states the Mucinex has been helpful for him to clear secretions, suggesting possible chronic bronch itis component to his COPD. - Check Spo2 daily and prn - Albuterol PRN dyspnea (has used x 2 since arriving at [facility]) - Continue Mucinex BID per home regimen # Paroxysmal SVT Was on diltiazem 240 mg daily outpatient which was held on admission and had subsequent epi sode of SVT w/ palpitations which resolved spontaneously, no a-fib noted but on EKG but had PACs on telemetry. Previous concern for a-fib was likely PACs on telemetry which were alway s negative for a-fib on EKG. Patient's symptomatic SVT (had episodes of syncope and palpitat ions) well controlled on diltiazem prior to hospitalization. He is asymptomatic currently. - continue diltiazem 240 mg daily # HTN On lisinopril and lasix outpatient. - Continue lisinopril and lasix # Peripheral edema Uses lasix and compression socks at home. - Continue lasix - Adding compression socks # HLD - continue pravastatin # GERD # Hx of UGIB - continue omeprazole - continue CaCarb 200mg q2h prn # Insomnia Melatonin 3mg qhs, with 3mg additional prn This patient was staffed with Dr. Evans who agrees with my assessment and plan unless othe rwise documented. Chloe Recinos MD Internal Medicine Resident- PGY1 GENERAL INTERNAL MEDICINE AT OFFSITE Pager: [phone] Associated attestation - Crystal Evans MD - 06/12/2018 9:41 AM PSTI have seen the patie nt with Dr. Recinos and confirmed all pertinent findings. I discussed the history, examinati on findings, management options and treatment plan in detail with Dr. Recinos at the time of this visit. I provided personal direction in the services rendered, ensuring that reasonabl e and necessary care was provided. I have reviewed the written documentation above, have amie alexia the text as I see necessary, and I agree with the findings, assessment, advice, orders a nd plan as they are documented with the following additions/clarifications/exceptions: none Crystal Evans MD [facility] Division of Internal Medicine and Geriatrics documented in this encounter Plan of Treatment Not on filedocumented as of this encounter Visit Diagnoses + + | Diagnosis | + + | Closed nondisplaced fracture of anterior column of left acetabulum with routine | | healing, subsequent encounter - Primary | + + | History of pelvic fracture Personal history of traumatic fracture | + + | Essential hypertension | + + | Chronic obstructive pulmonary disease, unspecified COPD type (HCC) | + + | Constipation due to pain medication Other constipation | + + documented in this encounter
--- OUTSIDE RECORDS SUMMARY | 2020-03-03 10:34 | XMS | Encounter Summary ---
Demographics + + + | Address | [address] | | | [place] [address] | + + + | Home Phone | | + + + | Preferred Language | Unknown | + + + | Marital Status | | + + + | Baptism Affiliation | NON | + + + | Race | White | + + + | Ethnic Group | Not or | + + + Author + + + | Author | [facility] | + + + | Organization | [facility] | + + + | Address | Unknown | + + + | Phone | Unavailable | + + + Support + + +---------+ + | Name | Relationship | Address | Phone | + + +---------+ + | None Per Pt | ECON | Unknown | Unavailable | + + +---------+ + Care Team Providers + +------+ + | Care Enforcement Safety Officer Name | Role | Phone | + +------+ + | Herlinda Maldonado | PCP | | + +------+ + Reason for Visit + +--------+ + | Reason | Onset | Comments | | | Date | | + +--------+ + | Constipation | 06/12/ | | | | 2018 | | + +--------+ + | Insomnia | 06/12/ | | | | 2018 | | + +--------+ + | Weakness | 06/12/ | | | | 2018 | | + +--------+ + Encounter Details +--------+ + + + + | Date | Type | Department | Care Team | Description | +--------+ + + + + | 06/12/ | Telephone | General Internal | Chloe Recinos MD | Constipation; | | 2019 | | Medicine at Offsite | [address] [facility] | Insomnia; Weakness | | | | [address] [facility] [address] | [address] | | | | | [place], | [place], [place] | | | | | [place] [address] | [address] | | | | | [phone] | [phone] | | | | | | | [...] this encounter Miscellaneous Notes Telephone Encounter - Chloe Recinos MD - 06/12/2018 11:40 AM PSTSNF Follow up 06/12/18 11:41 AM William Burns - Mr. Burns had a large bowel movement after dulcolax suppository and has now been passing g as normally, abdominal discomfort resolved - Slept well with 6 mg of Melatonin - He is bright, alert, and abdomen is soft and non-distended - Pain well controlled documented in this enc ounter Plan of Treatment Not on filedocumented as of this encounter Visit Diagnoses + + | Diagnosis | + + | Constipation due to opioid therapy - Primary | + + documented in this encounter"
--- OUTSIDE RECORDS SUMMARY | 2020-03-03 10:34 | XMS | Encounter Summary ---
Demographics + + + | Address | [address] | | | [place] [address] | + + + | Home Phone | | + + + | Preferred Language | Unknown | + + + | Marital Status | | + + + | Shinto Affiliation | NON | + + + | Race | White | + + + | Ethnic Group | Not or | + + + Author + + + | Author | [facility] | + + + | Organization | [facility] | + + + | Address | Unknown | + + + | Phone | Unavailable | + + + Support + + +---------+ + | Name | Relationship | Address | Phone | + + +---------+ + | None Per Pt | ECON | Unknown | Unavailable | + + +---------+ + Care Team Providers + +------+ + | Care Church Business Administrator Name | Role | Phone | + +------+ + | Herlinda Maldonado | PCP | | + +------+ + Encounter Details +--------+ + + + + | Date | Type | Department | Care Team | Description | +--------+ + + + + | 06/16/ | Telephone | [facility] Primary Care | Sid, | | | 2018 | | at [facility] | Alexa Anderson MD | | | | | [address] | [address] | | | | | [address] | [place], | | | | | [place], [address] floor | [place] [address] | | | | | [place], [place] | [phone] | | | | | [address] | | | | | | [phone] | | | +--------+ + + + [...] this encounter Miscellaneous Notes Telephone Encounter - Alexa Lau MD - 06/16/2018 5:57 PM PSTAfter hours call 4 :45 pm from [facility] at [facility]. Patient hasn't slept will in 2 nights. Takes OTC sleeper at home and wants an order for same. Has tried melatonin 6 mg one night and then refused further. T ried warm milk without response. Doing his rehab and trying not to nap. Discussed that I am uncomfortable using diphenhydramine or other OTC sleepers for his age. Reinforced being acti ve enough to get "good and tired" and other sleep hygiene. Recommend trying ramelteon 8 mg a n hour before bedtime to see if that will be more effective. May need to take it more than o ne night for it to be effective. Charito documented in this encounter Plan of Treatment Not on filedocumented as of this encounter Visit Diagnoses Not on filedocumented in this encounter
--- OUTSIDE RECORDS SUMMARY | 2020-03-03 10:34 | XMS | Encounter Summary ---
Demographics + + + | Address | [address] | | | [place] [address] | + + + | Home Phone | | + + + | Preferred Language | Unknown | + + + | Marital Status | | + + + | Church Affiliation | NON | + + + | Race | White | + + + | Ethnic Group | Not or | + + + Author + + + | Author | [facility] | + + + | Organization | [facility] | + + + | Address | Unknown | + + + | Phone | Unavailable | + + + Support + + +---------+ + | Name | Relationship | Address | Phone | + + +---------+ + | None Per Pt | ECON | Unknown | Unavailable | + + +---------+ + Care Team Providers + +------+ + | Care Bell Cleaner Name | Role | Phone | + +------+ + | Herlinda Maldonado | PCP | | + +------+ + Reason for Visit + +--------+ + | Reason | Onset | Comments | | | Date | | + +--------+ + | Medication | 06/07/ | | | management | 2019 | | + +--------+ + Encounter Details +--------+ + + + + | Date | Type | Department | Care Team | Description | +--------+ + + + + | 06/07/ | Telephone | [facility] | Sudhakar Giron MD | Medication | | 2019 | | at [facility] | [address] | management | | | | [address] | [facility] | | | | | [address] | [place], [place] | | | | | [place], [address] [place] [address] | [address] | | | | | [place], [place] | [phone] | | | | | [address] | | | | | | [phone] | | | +--------+ + + + [...] this encounter Miscellaneous Notes Telephone Encounter - Sudhakar Giron MD - 06/07/2018 8:02 PM PSTAfter hours call from [facility]. Nurse seeks clarification on albuterol neb ord er. I recommended sig of 1 treatment every 6 hours as needed for shortness of breath. PCP to confirm. documented in this encounter Plan of Treatment Not on filedocumented as of this encounter Visit Diagnoses Not on filedocumented in this encounter"
--- OUTSIDE RECORDS SUMMARY | 2020-03-03 10:34 | XMS | Clinical Summary ---
Demographics + + + | Address | [address] | | | [place] [address] | + + + | Home Phone | | + + + | Preferred Language | Unknown | + + + | Marital Status | | + + + | Moravian Affiliation | NON | + + + | Race | White | + + + | Ethnic Group | Not or | + + + Author + + + | Author | [facility] | + + + | Organization | [facility] | + + + | Address | Unknown | + + + | Phone | Unavailable | + + + Support + + +---------+ + | Name | Relationship | Address | Phone | + + +---------+ + | None Per Pt | ECON | Unknown | Unavailable | + + +---------+ + Care Team Providers + +------+ + | Care Road Oiling Truck Driver Name | Role | Phone | + +------+ + | Herlinda Maldonado | PCP | | + +------+ + Source Comments BETTINA is fully live on both [facility] and [facility] Allergies + + + + + + | Active Allergy | Reactions | Severity | Noted | Comments | | | | | Date | | + + + + + + | Aromatic | Dyspnea | High | 08/11/19 | | | | | | 14 | | + + + + + + | Budesonide-Formotero | Dyspnea | High | 08/11/19 | "I can't breathe | | l | | | 14 | when I use it." | + + + + + + | Eucalyptus | Dyspnea | | 06/26/19 | | | | | | 18 | | + + + + + + | Fluticasone | Dyspnea | | 06/26/19 | | | | | | 18 | | + + + + + + | Fluticasone | Dyspnea | High | 08/11/19 | "I can't breathe | | Propion-Salmeterol | | | 14 | when I use it." | + + + + + + | Hydrochlorothiazide | Rash | | 06/26/19 | | | | | | 18 | | + + + + + + Medications + + + +---------+------+------+-------+ | Medication | Sig | Dispensed | Refills | Star | End | Statu | | | | | | t | Date | s | | | | | | Date | | | + + + +---------+------+------+-------+ | furosemide 20 mg | Take 20 mg by mouth | | 0 | 01/0 | | Activ | | oral tablet | once daily. | | | 3/20 | | e | | | | | | 18 | | | + + + +---------+------+------+-------+ | lisinopril 20 mg | Take 20 mg by mouth | | 0 | 01/0 | | Activ | | oral tablet | once daily. | | | 3/20 | | e | | | | | | 18 | | | + + + +---------+------+------+-------+ | omeprazole 40 mg | Take 40 mg by mouth | | 0 | 01/0 | | Activ | | oral capsule,delayed | once daily in the | | | 3/20 | | e | | release(DR/EC) | evening. | | | 18 | | | + + + +---------+------+------+-------+ | pravastatin 10 mg | Take 10 mg by mouth | | 0 | 12/2 | | Activ | | oral tablet | once daily at | | | 20 | | e | | | bedtime. | | | 17 | | | + + + +---------+------+------+-------+ | dilTIAZem CD 24 | Take 240 mg by mouth | | 0 | | | Activ | | hour release 240 mg | once daily. | | | | | e | | oral | | | | | | | | capsule,extended | | | | | | | | release 24hr | | | | | | | + + + +---------+------+------+-------+ | acetaminophen 500 | Take 2 tablets by | | 0 | 01/1 | | Activ | | mg oral tablet | mouth three times | | | 12/07 | | e | | | daily. | | | 19 | | | + + + +---------+------+------+-------+ | calcium carbonate | Chew and swallow 2 | | 0 | 01/1 | | Activ | | chewable 200 mg | tablets every two | | | 7/20 | | e | | elemental (500 mg | hours as needed. | | | 19 | | | | total salt) oral | | | | | | | | tablet,chewable | | | | | | | + + + +---------+------+------+-------+ | guaiFENesin LA | Take 1 tablet by | | 0 | 01/1 | | Activ | | (GUAIFENESIN LA) 600 | mouth two times | | | 7/20 | | e | | mg oral tablet | daily. | | | 19 | | | | extended release | | | | | | | | 12hr | | | | | | | + + + +---------+------+------+-------+ | oxyCODONE | Take 1-2 tablets by | 60 | 0 | 01/1 | | Activ | | (immediate release) | mouth every four | tablet | | 7/20 | | e | | 5 mg oral tablet | hours as needed for | | | 19 | | | | | moderate pain. | | | | | | + + + +---------+------+------+-------+ | albuterol 0.083% | Inhale 3 mL every | | 0 | 01/2 | | Activ | | 2.5 mg /3 mL (0.083 | six hours as needed. | | | 07/10 | | e | | %) inhalation | Respiratory therapy | | | 19 | | | | solution for | or nurse to | | | | | | | nebulizationIndicati | administer per | | | | | | | ons: chronic | protocol | | | | | | | obstructive | Indications: Chronic | | | | | | | pulmonary disease | Obstructive | | | | | | | | Pulmonary Disease | | | | | | + + + +---------+------+------+-------+ | ergocalciferol | Take 1 capsule by | 8 | 0 | /2 | | Activ | | 50,000 unit oral | mouth every seven | capsule | | 07/10 | | e | | capsuleIndications: | days. Indications: | | | 19 | | | | vitamin D deficiency | vitamin D deficiency | | | | | | + + + +---------+------+------+-------+ | polyethylene | Mix 1 packet and | | 0 | 01/2 | | Activ | | glycol 17 gram oral | take orally two | | | /20 | | e | | powder in | times daily. | | | 19 | | | | packetIndications: | | | | | | | | History of pelvic | | | | | | | | fracture | | | | | | | + + + +---------+------+------+-------+ | senna (SENNA LAX) | Take 2 tablets by | | 0 | /2 | | Activ | | 8.6 mg oral tablet | mouth two times | | | 07/10 | | e | | | daily. | | | 19 | | | + + + +---------+------+------+-------+ | ramelteon 8 mg | Take 8 mg by mouth | | 0 | | | Activ | | oral tablet | once daily at | | | | | e | | | bedtime as needed | | | | | | | | for sleep. Take 30 | | | | | | | | minutes before | | | | | | | | bedtime. | | | | | | + + + +---------+------+------+-------+ | traZODone 50 mg | Take 1 tablet by | 15 | 0 | 01/3 | | Activ | | oral tablet | mouth once daily at | tablet | | 06/09 | | e | | | bedtime. | | | 19 | | | + + + +---------+------+------+-------+ Active Problems + + + | Problem | Noted Date | + + + | Constipation due to pain medication | 06/12/2018 | + + + | Closed fracture of anterior column of left acetabulum with | 06/11/2018 | | routine healing | | + + + | Atrial fibrillation | 08/13/2017 | + + + | GERD (gastroesophageal reflux disease) | 08/13/2017 | + + + | Physical deconditioning | 06/30/2017 | + + + | COPD (chronic obstructive pulmonary disease) | 06/28/2017 | + + + | Essential hypertension | 06/28/2017 | + + + | Raynaud's syndrome | 05/23/2017 | + + + | Right fascicular block | 05/23/2017 | + + + | Diverticulosis of colon | 01/01/2007 | + + + + + | Overview: Overview: | | Note: Unchanged | + + + +---+ | HTN (hypertension) | | + +---+ Resolved Problems + + + + | Problem | Noted | Resolved | | | Date | Date | + + + + | Non-ST elevation myocardial infarction (NSTEMI), type 2 | 06/28/19 | | | | 18 | 8 | + + + + | Aspiration pneumonitis | 06/28/19 | | | | 18 | 9 | + + + + | S/P ERCP | 06/28/19 | | | | 18 | 9 | + + + + | Acute respiratory failure with hypoxia | 06/28/19 | | | | 18 | 8 | + + + + | Acute cholangitis | 06/27/19 | | | | 18 | 9 | + + + + | Septic shock | 06/27/19 | | | | 18 | 8 | + + + + | Klebsiella sepsis | 06/27/19 | | | | 18 | 9 | + + + + | Choledocholithiasis | 06/26/19 | | | | 18 | 9 | + + + + Social History + [...] on file | | + + + Last Filed Vital Signs + + + + + | Vital Sign | Reading | Time Taken | Comments | + + + + + | Blood Pressure | 140/72 | 06/17/2018 5:35 PM | | | | | PST | | + + + + + | Pulse | 64 | 06/17/2018 5:35 PM | | | | | PST | | + + + + + | Temperature | 36.6 C (97.9 F) | 06/17/2018 5:35 PM | | | | | PST | | + + + + + | Respiratory Rate | 16 | 06/11/2018 4:44 PM | | | | | PST | | + + + + + | Oxygen Saturation | 94% | 06/17/2018 5:35 PM | | | | | PST | | + + + + + | Inhaled Oxygen | - | - | | | Concentration | | | | + + + + + | Weight | 79.7 kg (175 lb 9.6 | 06/17/2018 5:35 PM | | | | oz) | PST | | + + + + + | Height | 170.2 cm (5' 7") | 06/02/2018 4:00 PM | | | | | PST | | + + + + + | Body Mass Index | 27.5 | 06/02/2018 4:00 PM | | | | | PST | | + + + + + Plan of Treatment + + + + + | Health Maintenance | Due Date | Last | Comments | | | | Done | | + + + + + | Pneumococcal | | | | | vaccination (1 of 1 | 0 | | | | - PPSV23) | | | | + + + + + | Influenza (Flu) | | 03/19/20 | | | vaccination (#1) | 0 | 17, | | | | | 02/09/20 | | | | | 16, | | | | | 02/04/20 | | | | | 14, | | | | | Addition | | | | | al | | | | | history | | | | | exists | | + + + + + Implants + +------+--------+ +--------+--------+--------+ | Implanted | Type | Area | Manufacture | Device | Shelf | Model | | | | | r | | Expira | / | | | | | | Identi | tion | Serial | | | | | | fier | Date | / Lot | + +------+--------+ +--------+--------+--------+ | 7.3mm Cannulated Screw Fully | | Left: | [employer] | | 08/18/ | 209.73 | | Threaded/135mm Implanted: | | Hip | | | 2026 | 5S / | | Qty: 1 on 06/03/2018 by | | | | | | [id number] | | WorkingNguyễn MD at | | | | | | 88 | | [facility] INPATIENT REV LOC | | | | | | | + +------+--------+ +--------+--------+--------+ | Washer 13mm 6.6mm Lcp | | Left: | [employer] | | | 219.99 | | Orthopedic Stainless Steel | | Hip | | | | / / | | 4.5-7.3mm Screw Nonsterile - | | | | | | | | [id number]: Qty: 2 on | | | | | | | | 06/03/2018 by Working, | | | | | | | | Nguyễn Chance MD at [facility] | | | | | | | | INPATIENT REV LOC | | | | | | | + +------+--------+ +--------+--------+--------+ | Screw Bone 6.5mm 160mm | | Left: | [employer] | | | 208.48 | | Stainless Steel Full Thread | | Hip | | | | 5 / / | | Orthopedic Cannulated | | | | | | | | Nonsterile - | | | | | | | | [id number]: Qty: 1 on | | | | | | | | 06/03/2018 by Working, | | | | | | | | Nguyễn Chance MD at [facility] | | | | | | | | INPATIENT REV LOC | | | | | | | + +------+--------+ +--------+--------+--------+ | 7.3mm Cannulated Screw Fully | | Left: | [employer] | | 11/17/ | 209.76 | | Threaded/160mmImplanted: Qty: | | Hip | | | 7 | 0S / | | 1 on 06/03/2018 by Working, | | | | | | [id number] | | Nguyễn Chance MD at [facility] | | | | | | 02 | | INPATIENT REV LOC | | | | | | | + +------+--------+ +--------+--------+--------+ Results Not on filefrom Last 3 Months Insurance + +--------+ +--------+ + +--------+ | Payer | Benefi | Subscriber | Effect | Phone | Address | Type | | | t Plan | ID | leonela | | | | | | / | | Dates | | | | | | Group | | | | | | + +--------+ +--------+ + +--------+ | [employer]ARE | MODA | [id number] | 05/21/19 | [phone] | [address] | [address] | | | MEDICA | | 17-Pre | 4 | [address] | re | | | RE HMO | | sent | | [place], | | | | | | | | [place] [address] | | + +--------+ +--------+ + +--------+ + +--------+ +--------+ + + | Guarantor Name | Accoun | Relation to | Date | Phone | Billing Address | | | t Type | Patient | of | | | | | | | | | | + +--------+ +--------+ + + | William Burns | Person | Self | [birth year] | [address] | | | al/Fam | | 1935 | [phone] | [place] [address] | | | michelle | | | 4 (Home) | | + +--------+ +--------+ + + Advance Directives + + + + + | Code Status | Date | Date | Comments | | | Activated | Inactivated | | + + + + + | Full Code | 05/31/2018 | 06/06/2018 | | | | 1:14 PM | 10:34 PM | | + + + + + + + + +---+ | | | | | + + + +---+ | Full Code | 06/26/2017 | 06/30/2017 | | | | 9:47 AM | 8:38 PM | | + + + +---+ + + + +---+ | | | | | + + + +---+ | Full Code | 06/26/2017 | 06/26/2017 | | | | 8:38 AM | 8:39 AM | | + + + +---+
--- OUTSIDE RECORDS SUMMARY | 2020-03-03 10:34 | XMS | Encounter Summary ---
Demographics + + + | Address | [address] | | | [place] [address] | + + + | Home Phone | | + + + | Preferred Language | Unknown | + + + | Marital Status | | + + + | Muslim Affiliation | NON | + + + | Race | White | + + + | Ethnic Group | Not or | + + + Author + + + | Author | [facility] | + + + | Organization | [facility] | + + + | Address | Unknown | + + + | Phone | Unavailable | + + + Support + + +---------+ + | Name | Relationship | Address | Phone | + + +---------+ + | None Per Pt | ECON | Unknown | Unavailable | + + +---------+ + Care Team Providers + +------+ + | Care Book Shelver Name | Role | Phone | + +------+ + | Herlinda Maldonado | PCP | | + +------+ + Reason for Visit + +--------+ + | Reason | Onset | Comments | | | Date | | + +--------+ + | Constipated | 06/18/ | | | | 2019 | | + +--------+ + Encounter Details +--------+ + + + + | Date | Type | Department | Care Team | Description | +--------+ + + + + | 06/18/ | Telephone | [facility] | Nava, | Constipated | | 2018 | | at [facility] | Dimas Pelayo MD | | | | | [address] | [address] | | | | | Loop Physician's | [place], | | | | | [place], [address] [place] [address] | [place] [address] | | | | | [place], [place] | [phone] | | | | | [address] | | | | | | [phone] | | | +--------+ + + + [...] this encounter Miscellaneous Notes Telephone Encounter - Dimas Vick MD - 06/18/2018 7:36 PM [facility]: Contacted by Summer with constipation. Seen yesterday for constipation and insomnia by Dr. Gallardo and Dr. Evans. They do not have enema ordered earlier today. Per Summer, this is "an emergency" to the pat ient. Recommendations: One-time order for enema provided Recommended that these issues be addressed during the daytime hours to prevent use of emerg ency line. Routing message to Dr. Evans. Dimas Vick MD documented in this encounter Plan of Treatment Not on filedocumented as of this encounter Visit Diagnoses Not on filedocumented in this encounter
--- OUTSIDE RECORDS SUMMARY | 2020-03-03 10:34 | XMS | Encounter Summary ---
Demographics + + + | Address | [address] | | | [place] [address] | + + + | Home Phone | | + + + | Preferred Language | Unknown | + + + | Marital Status | | + + + | Adventist Affiliation | NON | + + + | Race | White | + + + | Ethnic Group | Not or | + + + Author + + + | Author | [facility] | + + + | Organization | [facility] | + + + | Address | Unknown | + + + | Phone | Unavailable | + + + Support + + +---------+ + | Name | Relationship | Address | Phone | + + +---------+ + | None Per Pt | ECON | Unknown | Unavailable | + + +---------+ + Care Team Providers + +------+ + | Care Manager Of Maintenance Name | Role | Phone | + +------+ + | Herlinda Maldonado | PCP | | + +------+ + Reason for Visit + + + | Reason | Comments | + + + | Constipation | | + + + | Insomnia | | + + + Encounter Details +--------+ + + + + | Date | Type | Department | Care Team | Description | +--------+ + + + + | 06/17/ | [facility] | General Internal | Crystal Evans, | Constipation; | | 2019 | Visit | Medicine at Offsite | [address] | Insomnia | | | | [address] | [address] | | | | | [place], | [place], [place] | | | | | [place] [address] | [address] | | | | | [phone] | [phone] | | | | | | | [...] + + + | Respiratory Rate | - | - | | + [...] + documented as of this encounter Progress Annabella Correa DO - 06/17/2018 2:30 PM PSTMet patient at bedside to discuss complaints of insomnia and abdominal pain and constipation. Describes inability to fall asleep; melatonin "doesn't work for me". Was able to sleep about 4 hours with 8 mg Ramelteon, but was too fati gued today to participate in PT. Abdominal pain is diffuse, "tightness" sensation with inter mittent sharp pain; slightly improved with simethicone. Says last significant BM was 1 week ago, following suppository. Exam: Last Vitals: BP 140/72 | Pulse 64 | Temp 36.6 C (97.9 F) | Wt 79.7 kg (175 lb 9.6 oz) | SpO2 94% | BMI 27.5 kg/(m^2) Abdomen soft, except LLQ which is firm. Tenderness to palpation diffusely, but no rebound o r guarding. Hyperactive bowel sounds. Non-distended. # Constipation # Abdominal pain - Bisacodyl suppository now - Heat packs for abdominal pain - Minimize oxycodone use; will keep on MAR (q4H PRN), but patient is motivated to discontin ue medication and is not complaining of postoperative (hip) pain - Increase physical activity -- will discuss with PT other exercises he can practice, given [id number]-[id number] status # Insomnia, sleep-onset - Sleep hygiene: - Close all blinds; all lights off; do not close door, as patient reports claustrophobia - No caffeine after 3:00PM - TV off 1 hour prior to sleep - Continue Ramelteon 8 mg qHS - Increase physical activity, as above Annabella Gallardo, PGY-1 | Internal Medicine [facility] Associated attestation - Crystal Evans MD - 06/17/2018 5:40 PM PSTI have seen the patie nt with Dr. Gallardo and confirmed all pertinent findings. I discussed the history, examinatio n findings, management options and treatment plan in detail with Dr. Gallardo at the time of t his visit. I provided personal direction in the services rendered, ensuring that reasonable and necessary care was provided. I have reviewed the written documentation above and I agree with the findings, assessment, advice, orders and plan as they are documented with the foll owing additions/clarifications/exceptions: none Crystal Evans MD [facility] Division of Internal Medicine and Geriatrics documented in this encounter Plan of Treatment Not on filedocumented as of this encounter Visit Diagnoses Not on filedocumented in this encounter
[2020-03-03] MEDS ORDERED: DILAUDID2 MG PO (12:17)
[2020-03-03] MEDS ORDERED: XOPENEX1.25 MG/3 INH (12:19)
[2020-03-03] MEDS ORDERED: REMERON15 MG PO (12:20)
--- OUTSIDE RECORDS SUMMARY | 2020-03-03 12:21 | XMS ---
PreManage Notification: EDSON HURST Security Attorney General Events 1 event(s) in the past 18 months Most recent security events: Elopement at [facility] 11/25/2019 20:37 - Other Details: PATIENT LWBS. CRITERIA MET - Group Notification - [facility] - Has Care Guidelines - [facility] - 2 Visits in 30 Days CARE PROVIDERS ROSA ENNIS Physician Boat Canvas Installer 05/31/2018-Current PHONE: Unknown Jose F has no Care Guidelines for this patient. Care History Medical/Surgical 11/26/2019 [facility] - [facility]W CONTACTED PATIENT- PATIENT WOULD LIKE HELP WITH GETTING AN APT IN REGARDS TO HIS CHRONIC CONSTIPATION. - CHW CONTACTED DR JIMENEZ OFFICE-SCHEDULED AN APT 01/05/20 @ 9:20AM [facility] APT. THEY DID PUT PATIENT ON THE WAIT LIST FOR CANCELLATIONS. - CHW CONTACTED PCP DR ENNIS-DISCUSSED A POSSIBLE REFERRAL TO A OUTSIDE MACHINIST APPRENTICE. - CHW LEFT A MESSAGE WITH SURESH COX AT [facility] -RESPIRATORY THERAPIST-PULMONARY REHAB. - SARI GÓMEZ-HEADLINE WRITER HAS EDUCATED PATIENT ABOUT PAIN MEDICATION AND CONSTIPATION 08/26/2019 [facility] Left message with [facility] requesting LAMA and ICS be added to patient\T\#39;s care plan. E.D. VISIT COUNT (12 MO.) [address] [facility] [address] [facility] TOTAL 10 NOTE: Visits indicate total known visits. ED/UCC VISIT TRACKING (12 MO.) 03/03/2020 10:00 [facility] [place] TYPE: Emergency COMPLAINT: - WEAKNESS 02/16/2020 11:26 [facility] [place] TYPE: Emergency COMPLAINT: - RAPID HEART RATE/DEPRESSED DIAGNOSES: - Personal history of nicotine dependence - Allergy status to other drugs, medicaments and biological sub - Heart failure, unspecified - Chronic obstructive pulmonary disease, unspecified - detention (current) use of aspirin - Paroxysmal atrial fibrillation - Other terminal block assembler (current) 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 - Palpitations 11/28/2019 15:55 [facility] [place] TYPE: Emergency COMPLAINT: - BACK PAIN DIAGNOSES: - Allergy status to other drugs, medicaments and biological sub - Low back pain - Personal history of nicotine dependence - Dorsalgia, unspecified - Unspecified atrial fibrillation - Other terminal block assembler (current) 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 - Heart failure, unspecified - Chronic obstructive pulmonary disease, unspecified - Constipation, unspecified 11/25/2019 20:37 [facility] [place] TYPE: Emergency COMPLAINT: - CONSTIPATION DIAGNOSES: - Procedure and treatment not carried out due to patient leavin 11/19/2019 19:[address] [facility] [place] TYPE: Emergency COMPLAINT: - SOB DIAGNOSES: - Allergy status to other drugs, medicaments and biological sub - Other terminal block assembler (current) 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 - Personal history of nicotine dependence - Heart failure, unspecified - Shortness of breath - Chronic atrial fibrillation, unspecified - Localized edema - detention (current) use of aspirin - Chronic obstructive [...] - Acute gastritis without bleeding - Other terminal block assembler (current) 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 - Chronic obstructive pulmonary [...] tripping and stumbling with - Other terminal block assembler (current) 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 - Laceration without foreign [...] 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 - Permanent atrial fibrillation - termite treater helper (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 analgesic - Permanent atrial fibrillation - Respiratory failure, unspecified with hypoxia - Unsteadiness on feet - detention (current) use of aspirin - Gastro-esophageal reflux disease without esophagitis - Allergy status to other drugs, medicaments and biological sub - termite treater helper (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 analgesic - detention (current) use of aspirin - Gastro-esophageal reflux [...] first lumbar vertebra, subseque - Other terminal block assembler (current) 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 - Acute respiratory failure with hypoxia - Pneumonia due to Streptococcus pneumoniae - termite treater helper (current) use of aspirin - Allergy status to other drugs, medicaments and biological sub - Personal history of nicotine dependence - Contact with and (suspected) exposure to asbestos - Acute on chronic diastolic (congestive) heart failure [email or web address]
[2020-03-03] MEDS ORDERED: CONSTULOSE10 GM/15 M PO (12:23)
[2020-03-03] MEDS ORDERED: ALPRAZOLAM0.25 MG PO (12:24)
--- NOTE | 2020-03-03 14:00 | NUR ---
Spoke with Carlos briefly. Dr Mello arrives for intake. Pt has returned for heart failure and ankle swelling. Will complete my assessement tomorrow.
--- NOTE | 2020-03-03 14:05 | NUR ---
PATIENT IS RESING IN BED. EDSON LET ME KNOW THAT HE GETS CLOSTERPHOBIC AND THEREFORE LIKES HIS CURTAIN OPEN AT ALL TIMES IF POSSBLE. CALL LIGHT WITHIN REACH. NO OTHER NEEDS AT THIS TIME.
--- NOTE | 2020-03-03 15:28 | NUR ---
this rn in pts room per pt request to discuss with pt about him needing miralax. this rn discussed with pt that this rn will discuss with md to have it ordered. also when this rn walked into pts room, pt was sating 89-90% on room air, this rn reminded pt to wear his o2.
--- NOTE | 2020-03-03 16:00 | NUR ---
THIS RN IN PTS ROOM. PT STATING THAT HE "NEEDS TO GET OUT OF THIS ROOM", PT STATES THAT HIS ANXIETY IS INCREASED. THIS RN HAD PT WALK THE UNIT ONCE TO HELP WITH HIS ANXIETY. PT STATES THAT HE TAKES XANAX AT HOME. THIS RN DISCUSSED THIS WITH AND OBTAINED A VERBAL ORDER FOR XANAX AND PROVIDED PT WITH XANAX AT THIS TIME.
--- NOTE | 2020-03-03 18:03 | NUR ---
PATIENT IS RELAXING IN BED. HE IS MUCH MORE RELAXED THAN EARLIER. IS REQUESTING A WALK HERE SOON. CALL LIGHT IS IN REACH. NO OTHER NEEDS AT THIS TIME.
--- NOTE | 2020-03-03 19:40 | NUR ---
RT IN ROOM TO GIVE NEB TREATMENT.
--- NOTE | 2020-03-03 20:15 | NUR ---
pt REQUESTING DOOR TO BE OPEN EDUCATED ON POLICY AFTER NEB TREATMENT. pt REQUESTED ANXIETY MEDICATIONS AND "SOMETHING TO SLEEP" PROVIDED SCHEDULED MEDICATIONS AND PRN, EDUCATED ON NEXT AVAILABLE DOSE OF ANXIETY MEDICATION. pt VERBALIZED UNDERSTANDING. CURTAIN OPEN. DOOR CLOSED. VITALS AND I&O RECORDED. CALL LIGHT WITHIN REACH.
--- NOTE | 2020-03-03 22:05 | NUR ---
CALL LIGHT ANSWERED. CUP OF WATER WITH LITTLE ICE PROVIDED. EMPTIED URINAL. NO OTHER NEEDS AT THIS TIME.
--- NOTE | 2020-03-03 22:13 | NUR ---
CALL LIGHT ON. URINAL EMPTIED. ASSESSMENT DONE. pt REPORTED IMPROVEMENT IN BLE EDEMA. PRN MEDICATION GIVEN (SEE MAR). TALKED ABOUT CURRENT ILLNESS AND CHF TREATMENT. pt DISCUSSED PANIC ATTACKS. QUESTIONS ANSWERED. CALL LIGHT WITHIN REACH. DOOR OPEN PER REQUEST.
--- NOTE | 2020-03-03 22:47 | NUR ---
ROUNDED ON pt. RESTING WITH EYES CLOSED, RESPIRATIONS REGULAR AND UNLAOBRED. CALL LIGHT WITHIN REACH.
--- NOTE | 2020-03-04 00:42 | NUR ---
ROUNDED ON pt. RESTING IN BED WITH EYES CLOSED, RESPIRATIONS REGULAR AND UNLABORED.
--- NOTE | 2020-03-04 00:53 | NUR ---
resting, eyes closed,no distress, O2 2L NC, call light at bedside. Pt on fluids restriction
--- NOTE | 2020-03-04 01:50 | NUR ---
PT UP TO EDGE OF BED, VOIDED, BACK TO BED, O2 BACK ON HE TOOK IT OFF, SATS 89% ROOM AIR, 90-93% ON 1L NC. WEANED DOWN EARLIER. NO C/O PAIN, TOLERATING FLUIDS WELL, AWARE OF FLUID RESTRICTIONS, EXPLANATION GIVEN, SEMI RECEPTIVE. CALL LIHGT AT BEDSIDE
--- NOTE | 2020-03-04 04:20 | NUR ---
Resting, O2 1L NC, no s/sx distress, call light and fluids at bedside
--- NOTE | 2020-03-04 05:17 | NUR ---
Currently awake, on room air, sats 93%. R18, no distress, up for weights and reposition, no distress. On room air, sl patent, voiding QS, on 1800cc fluid restriction. tolerating well. edema of LE 2+ feet , 1+ LE. no c/o pain. walked earlier in shift, toleratd well. uses call light appropriately
--- NOTE | 2020-03-04 06:22 | NUR ---
up to br, voided and had small formed bm, did own care, back to bed, ROom air, tolerated well, spot o2 sats91%
--- NOTE | 2020-03-04 07:05 | NUR ---
In room for bedside shift report from Maryann GUO. Pt was lying in bed, side rails up, table and call light within reach. Pt was alert and pleasant upon greeting. Pt reports no pain or nausea at this time. RN nightshift reported that pt had been on "regular" diet, though this mornings orders were for 2g Na diet. Reported also that pt was on 1800ml fluid restriction since midnight/0100. Maryann reported also, that pts lungs were "clear but diminished in bases". Pt reports no further needs at this time. Pt left lying in bed, side rails up, table and call light within reach. Pt verbalizes understanding of how to use call light.
--- NOTE | 2020-03-04 07:08 | NUR ---
REPORT RECEIVED FROM SARI PURI. PT RESTING IN BED ANTICIPAING BREAKFAST. PT DENIES PAIN AND NAUSEA. KHUSHI REPORTS PT WAS WEANED TO ROOM AIR. O2 SATURATION AT 90% ON ROOM AIR. PT DENIES REQUESTS OR COMPLAINTS AT THIS TIME. PT ALLOWED TO REST. CALL LIGHT WITHIN REACH.
--- NOTE | 2020-03-04 07:29 | NUR ---
MORNING ASSESSMENT AND MEDICATION DUE. PT RESTING WITH EYES CLOSED. PT AWAKENS TO VOICE AND MOVMENT IN ROOM. PT DENIES PAIN AND NAUSEA. PT REPORTS HE FEELS THAT HIS BREATHING IS "BETTER."ASSESSMENT DONE. CRACKELS NOTED IN LOWER LOBES OF LUNGS. +2 PITTING EDEMA IN LEFT LOWER LEG, PT REPORS A PREVIOUS INJURY TO THIS LEG STATING THAT THE EDEMA IS "ALWAYS WORSE IN THAT LEG." PT REPORTS CONSTIPATION AND STATES HE WOULD LIKE ALL MEDICATIONS FOR CONSITPATION. RECORDES INDICATE PT HAS A BOWEL MOVEMENT YESTERDAY. PT AGREES BUT STATES HE STILL FEELS "BACKED UP." PT STATES HE IS REFUSING HIS NEBULIZER TREATEMENTS TODAY BECAUSE "THEY HAVE TO CLOSE THE DOOR AND I'M SO CLASTROPHOBIC I JUST CAN'T DO THAT. I'LL LEAVE INSTEAD." LEAVING CURTAIN OPEN BUT DOOR CLOSED SUGGESTED TO PT. PT DECLINES AND STATE HE JUST WANT'S TO REFUSE NEBULIZER TREATMENTS TODAY AND KEEP THE DOOR OPEN. PT ASKS TO KNOW MORE ABOUT WHY HE IS HERE. EDUCATION DONE WITH PT REGARDING HEART FAILURE, FLUID INTAKE, SALT INTAKE AND S/S OF HEART FAILURE. PT VERBALIZES UNDERSTANDING. PT REPORTS AN OLD INJURY TO RIGHT ARM AND STATES THAT BLOOD PRESSURE SHOULD NOT BE TAKEN ON THAT ARM. RESTRICTED EXREMITY BAND PLACED TO ARM. PT REPORTS HE WAS USING "THREE DOSES OF LASIX BUT THEN THE DOCTOR DECREASED IT TO TWO AND ALL THIS STARTED." PT ALSO STATES HE "RAN OUT" OF HIS MEDICATION OVER THE WEEKEND BEFORE NEEDING TO COME TO THE HOSPITAL. PT TELLING STORIES FROM HIS YOUTH. PT ADVISED TO GET UP TO CHAIR, PT DECLINES A THIS TIME BUT STATES HE WILL SIT UP FOR BREAKFAST. VITALS TAKEN. MEDICATIONS GIVEN. FALL PRECAUTIONS REVIEWED WITH PT, PT VERBALIZES UNDERSTANDING. NO ADDITIONAL REQUESTS OR COMPLAINTS. CALL LIGHT WITHIN REACH.
--- NOTE | 2020-03-04 08:48 | NUR ---
PATIENT AT EDGE OF BED. NO FUTHER NEEDS AT THIS TIME. CALL LIGHT WITHIN REACH.
--- NOTE | 2020-03-04 09:09 | NUR ---
THIS RN TO ROOM TO CHECK ON PT. PT UP TO AMBULATE IN [place] WITH 1 PERSON ASSIST X1 LAP. LINENS CHANGED. PT UP TO RESTROOM. VOIDS WITHOUT ISSUE. PT UP TO CHAIR. NO ADDITIONAL REQUESTS OR COMPLAINTS. STUDENT NURSE AT BEDSIDE VISITING WITH PT. CALL LIGHT WITHIN REACH.
--- NOTE | 2020-03-04 09:34 | NUR ---
PATIENTS VITAL SIGNS AND I&O'S DOCUMENTED. TAKEN BY ADMINISTRATIVE LAW JUDGE.
--- NOTE | 2020-03-04 11:00 | NUR ---
THIS RN TO ROOM TO CHECK ON PT. PT VISITING WITH WINDOW SHADE INSTALLER. NO REQUESTS OR COMPLAINTS AT THIS TIME. CALL LIGHT WITHIN REACH.
--- NOTE | 2020-03-04 11:57 | NUR ---
THIS RN TO ROOM TO CHECK ON PT. PT SITTING UP ON EDGE OF BED FOR LUNCH. HEART FAILURE GREEN/YELLOW/RED ZONE EDUCATION DONE WITH PT. PT DEMONSTRATES UNDERSTANDING OF EDUCATION BY RECORDING WEIGHT AND REPORTING HE IS IN THE "YELLOW" ZONE TODAY "BECAUSE I STILL HAVE SOME SWELLING IN MY LEGS." PT AKSED ABOUT WHY HE IS REFUSING HIS INHALER. PT REPORTS "I TRIED ALL KINDS OF INHALERS WITH DR. CLEMENTS AND I'M ALLERGIC TO THEM." WHEN ASKED WHAT HAPPENS WHEN HE USES AN INHALER PT REPORTS "MY THROAT CLOSES UP AND I GET A RASH." PT UNSURE OF WHICH INHALERS HE HAS TRIED AND REPORTS THAT HE DOES STILL USE NEBULIZER TREATEMENTS AT HOME. WATER REFILLED WITHIN FLUID RESTRICION. PT DENIES ADDITIONAL REQUESTS OR COMPLAINTS. CALL LIGHT WITHIN REACH.
--- NOTE | 2020-03-04 13:05 | NUR ---
AFTERNOON ASSESSMENT AND MEDICATION DUE. PT RESTING IN BED AND FINISHED WITH LUNCH. PT FINISHIGN VISIT WITH LICENSED LAND SURVEYOR. PT DENIES PAIN AND NAUSA. EDEMA TO LOWER EXREMITIES IMPROVED. LUNG SOUNDS IMPROVED. PT CONTINUES TO REPORT CONSTIPATION. PT NOTED TO HAVE HAD 2 SMALL BOWEL MOVEMENTS TODAY. PT STATES "I JUST FEEL LIKE I NEED TO GO MORE." MEDICATION GIVEN. EDUCATION DONE WITH PT REGARDING FALL PRECAUTIONS AND USING CALL LIGHT. PT VERBALIZES UNDERSTANDING. PT VISITING WITH CASE MANAGEMENT. NO ADDITIONAL REQUESTS OR COMPLAINTS. PT COMPLIANT WITH FLUID RESTRICION. CALL LIGHT WITHIN REACH. BED RAILS UP.
--- NOTE | 2020-03-04 13:22 | NUR ---
PT ALERT, ORIENTED AND BEING CARED FOR BY RN YI AND STUDENT.PT STATED HE IS FEELING MUCH BETTER.ABLE TO RESPOND TO RN'S COMMANDS AND QUESTIONS.THANKED ME FOR COMING IN-WILL FOLLOW NEEDED
--- NOTE | 2020-03-04 14:03 | NUR ---
PATIENT VITAL SIGNS AND I&O'S DOCUMENTED. NO FURTHER NEEDS AT THE TIME. CALL LIGHT WITHIN REACH.
--- NOTE | 2020-03-04 14:14 | NUR ---
MEDICATION DUE. THIS RN TO BEDSIDE. PT UP TO RESTROOM. STAND BY ASSIST BACK TO BED. VITALS TAKEN. BP 109/91, RADIAL HEART RATE OF 64. MD CALLED REGARDING VITALS SIGNS AND ATENOLOL. VERBAL ORDERS TO DC MEDICATION, ORDERS REPEATED BACK FOR CONFIRMATION. MAG/CITRATE GIVEN (SEE JUL). PT READING NEWSPAPER. NO ADDITIONAL REQUESTS OR COMPLAINTS AT THIS TIME. CALL LIGHT WITHIN REACH. BED RAILS UP.
--- NOTE | 2020-03-04 14:50 | NUR ---
In room for rounding. Pt laying in bed on left side, breathing even and unlabored. Pt woke to my badging into room computer. Pt was alert and pleasant upon greeting. Pt reports no pain, nausea, or further needs at this time. Pt given a warm blanket. Pt left as he was, with bed in lowest position, table and call light within reach.
--- NOTE | 2020-03-04 15:15 | NUR ---
Met with Carlos and completed cm assessment. States he has been doing well, until he ran out of his lasix and went over the weekend without. This has happened in the past. Discussed with Carlos, if he runs out of meds on a Sunday or the weekend to take his bottle to the pharmacy and let them know, they will give him a few until he can he can get his rx refilled. Pt states he has to have his Rx called in by Sun or , if not he cannot get his RX in time. States sometimes he forgets and then it is to late. He cont. to live alone, but has several people who check on him. He has a house keeper who visits every day. States his son, Sukhwinder will be here from [place] on Sunday to stay a few days. Also has a nephew from [place] who helps him when needed. He has his walker, but now uses a riding post tensioning ironworker with the deck removed to get around his place and feed his chickens. He used to walk down a step path and fell last year. States he will only use his riding post tensioning ironworker from now on. Plans on discharge to home when cleared by
--- NOTE | 2020-03-04 15:56 | NUR ---
PT CALL LIGHT ON. PT REQUESTS TO GET UP TO AMBULATE. PT UP TO AMBULATE WITH 1 PERSON ASSIST AND FRONT WHEEL WALKER X1 LAP IN PULL[place]. PT BACK TO ROOM. PT DENIES PAIN AND NAUSEA. NO ADDITIONAL REQUESTS OR COMPLAINTS AT THIS TIME. CALL LIGHT WITHIN REACH.
--- NOTE | 2020-03-04 16:15 | NUR ---
Uses call light to request PRN alprazolam. Verbalizes feelings of anxiety. States he needs to go home. Verbalizes list of coping mechanisms he uses for anxiety such as going for a drive, visiting with friends, etc. PRN medication given as prescribed. Phone rings and patient answers, talking on phone when this nurse completing cares.
--- NOTE | 2020-03-04 16:19 | NUR ---
This RN to bedside for rounding. Pt up to bathroom. Mother in room, states "oh he's doing fine". Pts mother encouraged to have him use the call light with any needs. Pt in bathroom, will return to round.
--- NOTE | 2020-03-04 17:00 | NUR ---
PT CALL LIGHT ON. PT REPORTS "I'M CRAWLING OUT OF MY SKIN." PT ACKNOWLEDGE "BAD ANXIETY" AND STATES HE NEEDS TO GO HOME. THERAPUTIC COMMUNICATION DONE. PT REPORTS NORMALLY HE WOULD GET IN HIS CAR AND GO FOR A DRIVE OR A WALK. WALK IN THE LONG [place] OFF THE FLOOR OFFERED TO PT. PT AGREES. PT WALKS WITH THIS RN OUT TO MAIN PULLIAM TO LOOK AT THE [place] AND FOUNT[place]. PT TALKS OF HIS LIFE, FAMILY, AND CONCERN FOR THE WORLD. PT STATES "THIS HAS BEEN THE WORSE YEAR OF MY LIFE." PT TALKS OF POSTIVIE ASPECTS OF LIFE RECOGNIZING THAT HIS CHILDREN ARE ALL DOING WELL AND HIS GARDEN DID REALLY WELL THIS YEAR. PT AMBULATES BACK TO ROOM. PT OFFERED A NEW ROOM WITH A BETTER VIEW. PT ACCEPTS TRANSFER TO NEW ROOM ON MED/SURG. PT TRANSFERED TO NEW ROOM. PT TALKING WITH JEANETTE HEART FAILURE RN. DINNER ARRIVED. NO ADDITIONAL REQUESTS AT THIS TIME. PT REPORTS FEELING "MUCH BETTER." CALL LIGHT WITHIN REACH.
--- NOTE | 2020-03-04 17:15 | NUR ---
In pt room, moved pt to room 109 for a better view after pt had some panic anxiety about being here this afternoon. Pt enjoying his new view with dinner. Pt given his evening med, took without difficulty. Pt reports slight belly ache, with no real pain, and no nausea at this time. Pt having dinner, sitting up in bed, bed in lowest position, call light within reach.
--- NOTE | 2020-03-04 17:27 | NUR ---
Certified Heart Failure Nurse Notes: Process Development Chemist Lois, patient has an appointment scheduled for March PCP: [facility] support system: Lives alone. Continues to drive but not at night. Weight monitoring: Scale present in home. Identifies how to weigh daily/ identifies when to notify PCP Symptom management: Addressed monitoring and reporting changes in weight or symptoms utilizing Zones form Diet: He discussed that he was concerned about being underweight and was eating high sodium process foods. He was able to state that he learned from the drone pilot today how harmful that is to his heart. Usual physical activity: Has been too weak and has not been walking. Does take care of dozens of chickens. Medication routine: Denies problems. Advanced directive: Not discussed at this initial visit Recommendations prior to discharge: Document ambulation oxygen saturations prior to discharge Absence of orthostatic hypotension. Discharge weight less than admit weight. Discharge BNP less than admit (as per [facility] Heart Failure DC Bundle) Barriers to self-care include: Weakness. Dietary habits. Follow-up plans: Does not qualify for cardiac rehabilitation at this time. Recommend outpatient PT evaluation for deconditioning. He reports he does not want to pay for extra services. Patient agrees to f/u call and we will schedule an OP heart failure education visit. Will further discuss progressive walking and chair exercises. Has at bedside [facility] Heart Failure bundle folder-[facility] My Action Plan Living Well with Heart Failure book, Daily weight and symptom monitoring log, Zones magnet. Given [facility] contact information
--- NOTE | 2020-03-04 17:32 | NUR ---
Pt that was in ED for hypoxia, admitted now for treatment of CHF. Pt was able to be weaned off oxygen therapy last night, and has been satting in the low 90s all throughout the shift today. Pts heart rate was charted as being tachycardic earlier today, but with proper assessment of pts HR radially and apically, pts HR was found to be in the low 60s. Pt states he is in 55-65bpm at baseline. Pt was able to ambulate through the halls several times today with a SBA and walker. Pt uses call light and is able to use toilet in room when needed. Pt had an episode of panic anxiety this afternoon stating, "I have to leave. I am having a panic attack" Pt reassured and calmed, pt reported that when he has similar episodes at home he usually gets up and goes out to do something to distract himself. So Kori GUO took him for a long walk and the pt seemed to have his anxiety resolved by the time he returned to his room. Pt was also given his PRN anxiolytic. Pt had a long talk with slide forming machine tender today about how to handle a heart healthy diet. Pt has mild edema in his lower extremities, tolerating his 1800 ml fluid restriction well. Pt voiding sufficient quantities.
--- NOTE | 2020-03-04 17:55 | NUR ---
PATIENT VITAL SIGNS AND I&O'S DOCUMENTED. NO FUTHER NEEDS AT THIS TIME.
--- NOTE | 2020-03-04 18:15 | NUR ---
In room for rounding. Pt sitting up in bed. Dinner finished, tray taken. Pt urinal emptied, amount noted on board. Pt reports no pain or nausea at this time, "slight stomach ache" "no pain" "probably since he's consitipated". Pt given warm blanket and left lying in bed, side rails up, table and call light within reach.
--- NOTE | 2020-03-04 18:42 | NUR ---
PT CALL LIGHT ON. PT REPORTS HE IS "VERY UNCOMFOTABLE" FROM CONSTIPATION AND WOULD LIKE TO HAVE A SUPPISITORY THE DOCTOR METIONED TO HIM EARLIER TO DAY. NURSE INITIATED ORDER FOR SUPPISITORY PLACED. AWAITING VARIFICATION FROM PHARMACY. NO ADDITIONAL REQUESTS OR COMPLAINTS AT THIS TIME. CALL LIGHT WITHIN REACH. BED RAILS UP.
--- NOTE | 2020-03-04 18:56 | NUR ---
In room to administer pts new ordered suppository. Pt was able to take medicine without dificulty. No bleeding or pain noted. Pt advised not to try to push any stool out until later this evening. Pt left lying in bed, table and call light within reach.
--- NOTE | 2020-03-04 20:00 | NUR ---
CAME TO PT RM TO TAKE VITALS, RN IN RM TO GIVE MEDS, NO FURTHER REQUESTS AT THIS TIME
--- NOTE | 2020-03-04 20:13 | NUR ---
In bed, Room air, coop with assessment. lungs dim at bases, no c/o sob when turning, irregular heart rate, no results from suppositorium given earlier, took meds w/o problems. 1PA/fww. L leg slight edema compared to right. Cooperative, alert and oriented. tolerating well
--- NOTE | 2020-03-04 22:21 | NUR ---
RESTING, NO DISTRESS, ON ROOM AIR, PT LIKE TO HAVE CURTAINS AND DOOR OPEN DUE TO CLAUSTROPHOBIA
--- NOTE | 2020-03-04 23:45 | NUR ---
up to br, voided small amounts yellow urine, no bm, back to bed, tolerated well, on room air, no c/o pain
--- NOTE | 2020-03-05 02:28 | NUR ---
Resting, no distress, awakens easily, goes back to sleep, call light and fluids at bedside
--- NOTE | 2020-03-05 03:37 | NUR ---
RESTING, EYS CLOSED, NO DISTRESS, ON ROOM AIR. CALL LIGHT AT BEDSIDE
--- NOTE | 2020-03-05 05:10 | NUR ---
PT RECEIVED BOWEL MEDS LATE ON AM SHIFT, EFFECTIVE, HAD LARGE FORMED BM. NO FURTHER C/O BOWEL PROBLEMS/CONSTIPATION. SEMI INDEPENDENT IN TOOM, ON ROOM AIR. SL PATENT. NO C/O ANXIETY ATTACKS DISCOMFORT THIS SHIFT, HAS SLEPT ALL SHIFT. TOLERATING 1800CC FLUID RESTRICIONS. AND DIET. VOIDING QS URINE. DAILY STANDING WEIGHT, ALERT AND ORIENTED
--- NOTE | 2020-03-05 09:00 | NUR ---
Spoke with Carlos when he finished discussing dc with Dr. Mello. He states he will call a friend to pick him up and declines a care ride.
--- NOTE | 2020-03-05 09:05 | NUR ---
DR. RUIZ IN TO SEE PATIENT AND DISCUSS DISCHARGE HOME TODAY. PATIENT AMBULATED THROUGHOUT HALLWAY WITH FRONT WHEEL WALKER, WEARING FACE SHIELD. DIETARY IN TO CONSULT WITH PATIENT REGARDING LOW SODIUM DIET.
--- NOTE | 2020-03-05 09:45 | NUR ---
PATIENT FINISHED A WALK WITH HAM. ATE BREAKFAST WELL. I ASKED HIM IF HE REMEMBERED THE 2 EASY THINGS HE CAN DO RIGHT AWAY TO DECREASE HIS SODIUM INTAKE AND HE COULDN'T REMEMBER. I REMINDED HIM THEY ARE TO AVOID SUMMER SAUSAGE AND TO HAVE HARD-BOILED EGGS OR LIGHTLY SALTED NUTS INSTEAD, LOW-SODIUM CRACKERS INSTEAD OF REGULAR. I ALSO REMINDED HIM OF THE LIGHT IN SODIUM SOUPS THAT ARE OUT THERE. WE TALKED ABOUT HIS NEPHEW BRINGING HIM SALMON FRESH CAUGHT FROM [place] AND BAKING THE FISH WITH LEMON IS A GREAT WAY TO PREPARE IT WITHOUT A LOT OF SALT. HE SEEMS TO UNDERSTAND THE IMPORTANCE OF EATING LOWER SODIUM FOODS, IT'S THE THOUGHT OF HAVING TO READ LABELS AND FIGURE OUT WHAT TO COOK INSTEAD OF THE CONVENIENCE FOODS. PROVIDED A HEART HEALTHY COOKBOOK THAT I HAD. HE ASKED IF DRIED PRUNES AND DRIED APRICOTS WERE OK, I SAID YES THEY ARE...THEY DO NOT HAVE ANY ADDED SALT. HE APPRECIATED MY TIME.
--- NOTE | 2020-03-05 09:56 | NUR ---
PT IS AMBULATING IN HALLWAY WITH FWW IN [employer], DR RUIZ IN TO SEE PT, WILL DC HOME TODAY, FLU SHOT GIVEN PER PT REQUEST.
[2020-03-05] MEDS ORDERED: ATENOLOL25 MG PO (10:00)
--- NOTE | 2020-03-05 10:47 | NUR ---
VERBALIZES UNDERSTANDING OF DC INSTRUCTIONS, MEDICATIONS AND FOLLOWUP APPOINTMENT, SL DC. DENIES ANY QUESTIONS OR CONCERNS.
--- NOTE | 2020-03-05 14:05 | NUR ---
Collected covid sample, no complications sent to [facility].
--- NOTE | 2020-03-06 15:19 | EKG ---
[facility] [address] [place], [place] [address] Signed Atrial flutter with variable AV block Right bundle branch block Abnormal ECG When compared with ECG of 16-FEB-2020 11:37, No significant change was found Confirmed by ELADIO RUIZ DO ([id number]) on 03/06/2020 10:51:37 AM Electronically Signed By: ELADIO RUIZ DO 03/06/20 1519 PATIENT NAME: EDSON HURST Electrocardiogram DATE OF : 35 PHYSICIAN: ELADIO RUIZ DO REPORT #: [id number] REPORT IS CONFIDENTIAL AND NOT TO BE RELEASED WITHOUT AUTHORIZATION
== END 2020-03-05 10:50 | disposition home or self-care (01) | DRG 291 ==
LOC: ED 10:00 → MS 10:01
PROVIDERS: ADMIT Student in an Organized Health Care Education/Training Program; ATTEND Student in an Organized Health Care Education/Training Program
DX: I50.33 Acute on chronic diastolic (congestive) heart failure (principal); J96.01 Acute respiratory failure with hypoxia; I48.21 Permanent atrial fibrillation; J44.9 Chronic obstructive pulmonary disease, unspecified; E78.5 Hyperlipidemia, unspecified; K21.9 Gastro-esophageal reflux disease without esophagitis; F32.9 Major depressive disorder, single episode, unspecified; F41.9 Anxiety disorder, unspecified; K59.00 Constipation, unspecified; Z88.8 Allergy status to other drugs, medicaments and biological substances; Z79.82 Long term (current) use of aspirin; Z79.899 Other long term (current) 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; Z20.828 Contact with and (suspected) exposure to other viral communicable diseases; Z91.14 Patient's other noncompliance with medication regimen
CPT/HCPCS: 36415; 71046; 80048; 80053; 83735; 83880; 85025; 90662; 94640; 94760; 96374; 97162; 97165; 99285-25; C9803; J1650; J1940

== ENCOUNTER 2020-04-10 09:00 | Inpatient (IN) | payer MEDICARE ==
[~2020-04-10] VITALS: Ht 175.3 cm; Wt 70.8 kg
[~2020-04-10 09:00] MED LIST changes: +ALPRAZOLAM0.25 MG PO; +AMBIEN5 MG PO; +CONSTULOSE10 GM/15 M PO; +DILAUDID2 MG PO; +REMERON15 MG PO; +XOPENEX1.25 MG/3 INH
--- OUTSIDE RECORDS SUMMARY | 2020-04-10 09:02 | XMS ---
PreManage Notification: EDSON HURST Security Animal Nutrition Consultant Events 1 event(s) in the past 18 months Most recent security events: Elopement at [facility] 11/25/2019 20:37 - Other Details: PATIENT LWBS. CRITERIA MET - Group Notification - 6 ED Visits in 6 Months - [facility] [place] - Has Care Guidelines - PDMP CARE PROVIDERS ROSA ENNIS Physician Judicial Registrar 05/31/2018-Current PHONE: Unknown Jose F has no Care Guidelines for this patient. Care History Medical/Surgical 11/26/2019 [facility] - CHW CONTACTED PATIENT- PATIENT WOULD LIKE HELP WITH GETTING AN APT IN REGARDS TO HIS CHRONIC CONSTIPATION. - CHW CONTACTED DR JIMENEZ OFFICE-SCHEDULED AN APT 01/05/20 @ 9:20AM EARLIEST APT. THEY DID PUT PATIENT ON THE WAIT LIST FOR CANCELLATIONS. - CHW CONTACTED PCP DR ENNIS-DISCUSSED A POSSIBLE REFERRAL TO A ANATOMICAL EMBALMER. - CHW LEFT A MESSAGE WITH SURESH COX AT [facility] -RESPIRATORY THERAPIST-PULMONARY REHAB. - SARI GÓMEZ-AUTOMATION AND CONTROLS INSTRUCTOR HAS EDUCATED PATIENT ABOUT PAIN MEDICATION AND CONSTIPATION 08/26/2019 [facility] Left message with [facility] requesting LAMA and ICS be added to patient\T\#39;s care plan. E.D. VISIT COUNT (12 MO.) 11 [facility] TOTAL 11 NOTE: Visits indicate total known visits. ED/UCC VISIT TRACKING (12 MO.) 04/10/2020 09:00 [facility] TYPE: Emergency COMPLAINT: - SOB 03/03/2020 10:00 [facility] TYPE: Emergency COMPLAINT: - WEAKNESS 02/16/2020 11:26 [facility] TYPE: Emergency COMPLAINT: - RAPID HEART RATE/DEPRESSED DIAGNOSES: - Personal history of nicotine dependence - Allergy status to other drugs, medicaments and biological substances - Heart failure, unspecified - Chronic obstructive pulmonary disease, unspecified - shelter (current) use of aspirin - Paroxysmal atrial fibrillation - Other chcf (current) 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 - Palpitations 11/28/2019 15:55 [facility] TYPE: Emergency COMPLAINT: - BACK PAIN DIAGNOSES: - Allergy status to other drugs, medicaments and biological substances - Low back pain - Personal history of nicotine dependence - Dorsalgia, unspecified - Unspecified atrial fibrillation - Other moth exterminator (current) 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 - Heart failure, unspecified - Chronic obstructive pulmonary disease, unspecified - Constipation, unspecified 11/25/2019 20:37 [facility] TYPE: Emergency COMPLAINT: - CONSTIPATION DIAGNOSES: - Procedure and treatment not carried out due to patient leaving prior to being seen by health care provider 11/19/2019 19:09 [facility] TYPE: Emergency COMPLAINT: - SOB DIAGNOSES: - Allergy status to other drugs, medicaments and biological substances - Other moth exterminator (current) 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 - Personal history of nicotine dependence - Heart failure, unspecified - Shortness of breath - Chronic atrial fibrillation, unspecified - Localized edema - shelter (current) use of aspirin - Chronic obstructive pulmonary disease, unspecified - Dependence on supplemental oxygen 08/23/2019 14:25 [facility] TYPE: Emergency COMPLAINT: - BLOOD PRESSURE PROBLEM DIAGNOSES: - Personal history of nicotine dependence - Chronic obstructive pulmonary disease, unspecified - Other chcf (current) 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 - Weakness - Heart failure, unspecified - Unspecified atrial fibrillation 08/12/2019 09:09 [facility] TYPE: Emergency COMPLAINT: - VOMITING DIAGNOSES: - Personal history of nicotine dependence - Nausea with vomiting, unspecified - Unspecified atrial fibrillation - Acute gastritis without bleeding - Other moth exterminator (current) 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 - Chronic obstructive pulmonary [...] Unspecified fracture of first lumbar vertebra, initial encounter for closed fracture - Unspecified atrial fibrillation 07/23/2019 17:40 [facility] TYPE: Emergency COMPLAINT: - FALL DIAGNOSES: - Unspecified atrial fibrillation - Allergy status to other drugs, medicaments and biological substances - Laceration without foreign body of right forearm, initial encounter - Personal history of nicotine dependence - Heart failure, unspecified - Fall on same level from slipping, tripping and stumbling with subsequent striking against other object, initial encounter - Other chcf (current) 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 - Laceration without foreign body of right forearm, initial encounter INPATIENT VISIT TRACKING (12 MO.) 03/03/2020 15:30 [facility] TYPE: Medical Surgical COMPLAINT: - CHF DIAGNOSES: - Major depressive disorder, single episode, unspecified - Acute on chronic diastolic (congestive) heart failure - Allergy status to other drugs, medicaments and biological substances - Acute respiratory failure with hypoxia - Patient's other noncompliance with medication regimen - Gastro-esophageal reflux disease without esophagitis - Other moth exterminator (current) 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 - Chronic obstructive pulmonary disease, unspecified - Anxiety disorder, unspecified - Permanent atrial fibrillation - Contact with and (suspected) exposure to other viral communicable diseases - predatory animal exterminator (current) use of aspirin - Hyperlipidemia, unspecified - Constipation, unspecified 08/03/2019 16:31 [facility] TYPE: Medical Surgical COMPLAINT: - DECONDITIONING DIAGNOSES: - Allergy status to other drugs, medicaments and biological substances - Chronic obstructive pulmonary disease, unspecified - Wedge compression fracture of first lumbar vertebra, subsequent encounter for fracture with routine healing - Wedge compression fracture of first lumbar vertebra, subsequent encounter for fracture with routine healing - Hyperlipidemia, unspecified - Retention of urine, unspecified - Other chcf (current) 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 - Permanent atrial fibrillation - predatory animal exterminator (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 analgesic - Permanent atrial fibrillation - Respiratory failure, unspecified with hypoxia - Unsteadiness on feet - shelter (current) use of aspirin - Gastro-esophageal reflux disease without esophagitis - Allergy status to other drugs, medicaments and biological substances - shelter (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 analgesic - predatory animal exterminator (current) use of aspirin - Gastro-esophageal reflux disease without esophagitis - Chronic diastolic (congestive) heart failure - Chronic diastolic (congestive) heart failure - Respiratory failure, unspecified with hypoxia - Hyperlipidemia, unspecified - Other chcf (current) 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 - Retention of urine, unspecified - Chronic obstructive pulmonary disease, unspecified 07/31/2019 13:23 [facility] TYPE: Medical Surgical COMPLAINT: - CHF,L1 COMPRESSION FRACTURE DIAGNOSES: - Adverse effect of other opioids, initial encounter - Gastro-esophageal reflux disease without esophagitis - Chronic obstructive pulmonary disease with (acute) lower respiratory infection - Drug induced constipation - Chronic atrial fibrillation, unspecified - Hyperlipidemia, unspecified - Wedge compression fracture of first lumbar vertebra, subsequent encounter for fracture with routine healing - Other moth exterminator (current) 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 - Acute respiratory failure with hypoxia - Pneumonia due to Streptococcus pneumoniae - predatory animal exterminator (current) use of aspirin - Allergy status to other drugs, medicaments and biological substances - Personal history of nicotine dependence - Contact with and (suspected) exposure to asbestos - Acute on chronic diastolic (congestive) heart failure [email or web address]
--- NOTE | 2020-04-10 13:47 | NUR ---
Patient arrives to CCU room 126 from ED on stretcher with Jaleesa Degroot RN. Patient ambulates in room, Remains on O2 per NC. Vital signs obtained. Continent of urine 150 mL at this time. Does miss urinal with unknown amount of urine. Assessment completed. Patient alert and oriented.
--- NOTE | 2020-04-10 15:00 | NUR ---
AMBULATED TO BR WITH STAND BY ASSIST. UNMEASURED VOID, MED LIGHT BROWN SEMI-LIQUID STOOL. BACK TO BED W/O INCIDENT. NO DESAT NOTED WITH MOVEMENT.
--- NOTE | 2020-04-10 16:39 | NUR ---
ASSESSMENT DONE. TYLENOL GIVEN FOR HAY. IS TALKATIVE AND IN GOOD SPIRITS. O2 DECREASED TO 4 L NC.
--- NOTE | 2020-04-10 20:00 | NUR ---
PATIENT PROVIDED WITH EVENING MEDS. PATIENT DENIES FEELING SOB AT REST. TOLERATING 4L NC. VS STABLE. ORAL TEMP WNL. PATIENT VOIDING USING URNAL, WHICH WAS EMPTIED. PATIENT DENIED ANY FURTHER NEEDS AND IS READY FOR BED. LIGHTS DIMMED. CURTAIN LEFT OPENPER REQUEST. CALL LIGHT IN REACH.
--- NOTE | 2020-04-10 20:14 | NUR ---
PATIENT REQUESTING EVENING DOSE OF PPI MED. DISCUSSED WITH .
--- NOTE | 2020-04-11 | NUR ---
PATIENT APPEARS TO BE SLEEPING SONDLY. VS STABLE. TOLERATING 4L NC. O2 SATS 95%, RR 18.
--- NOTE | 2020-04-11 02:15 | NUR ---
PATIENT APPEARS COMFORTABLE IN BED. EYES CLOSED. VS STABLE. TOLERATING 4L NC.
--- NOTE | 2020-04-11 03:30 | NUR ---
PATIENT CHECKED ON AND DENIED ANY NEEDS. LEFT RESTING IN BED WITH CALL LIGHT IN REACH.
--- NOTE | 2020-04-11 05:30 | NUR ---
MORNING LABS DRAWN. PATIENT REPORTS FEELING WELL. DENIES ANY CONCERNS. TOLERATING 4L NC. PATIENT WANTS TO BE ABLE TO WALK THE HALLS. DISCUSSED THE CONCERN WITH HIS COVID POSITIVE STATUS AND HE VERBALIZED UNDERSTANDING. ASSURED HIM DAYSHIFT COULD ASSIST HIM IN WALKING IN HIS ROOM LATER THIS MORNING. PATIENT AGREEABLE TO THIS.
--- NOTE | 2020-04-11 07:15 | NUR ---
Report received, orders acknowledged.
--- NOTE | 2020-04-11 07:45 | NUR ---
RT in room to administer breathing tx
--- NOTE | 2020-04-11 08:00 | NUR ---
PATIENT SITTING UP FOR BREAKFAST. CALL LIGHT WITHIN REACH. NO FUTHER NEEDS AT THIS TIME.
--- NOTE | 2020-04-11 09:00 | NUR ---
Patient sitting in chair on 4LNC with an SpO2 in the upper 90's. AM medications given. IV remdesivir infusing. Patient denies SOB, pain, or nausea. No headache. Patient independent in room, able to ambulate with cane from the chair to the bed. Patient denies SOB with activity, breathing does not appear labored with exertion. Denies needs at this time, call light within reach.
--- NOTE | 2020-04-11 09:00 | NUR ---
PATIENT LINENS CHANGED. BED BATH. ORAL CARE COMPLETE. CALL LIGHT WITHIN REACH. NO FUTHER NEEDS AT THIS TIME.
--- NOTE | 2020-04-11 10:50 | NUR ---
Dr. Dubon in room to assess patient and discuss POC
--- NOTE | 2020-04-11 11:30 | NUR ---
Oxygen titrated from 4LNC down to 3LNC. SpO2 in the upper 90's.
--- NOTE | 2020-04-11 12:15 | NUR ---
Patient sitting up at edge of bed, 3LNC in place. SpO2 in the mid-90's. Medications given (see MAR). Miralax and senna given. Lunch delivered. Patient denies SOB or pain. Patient educated about 1800 ml fluid restriction, patient agreeable. Denies further needs, call light within reach.
--- NOTE | 2020-04-11 14:15 | NUR ---
Patient up to toilet with SBA, large BM produced. Urinal emptied of 525 mls of urine. Water refreshed. Patient using IS, very motivated. Denies needs at this time, call light within reach.
--- NOTE | 2020-04-11 15:29 | NUR ---
Patient laying in bed watching tv and talking on the phone. 3LNC in place with an SpO2 in the mid-90's. Respirations even and unlabored. Call light within reach.
--- NOTE | 2020-04-11 15:45 | NUR ---
RT in room to administer neb tx
--- NOTE | 2020-04-11 17:00 | NUR ---
Patient sitting up at edge of bed with feet on floor. 3LNC in place, SpO2 in the mid-90's. Vital signs taken, assessment complete. Dinner delivered, PM medications given. Patient denies needs at this time, call light within reach.
--- NOTE | 2020-04-11 18:15 | NUR ---
Patient to transfer to room 116, report given to SARI Leavitt. Patient able to ambulate to room 116 independently with face shield in place. Oxygen tank titrated to 4LNC while ambulating, no SOB noted. All patient belongings collected and brought to room 116. All patient questions answered to best of ability.
--- NOTE | 2020-04-11 18:42 | NUR ---
Patient ambulates in hallway from room 126 on CCU to room 116 in Med-Surg. Alert and oriented upon arrival. IV site to [facility] WNL at this time. States he is not feeling short of breath at this time. O2 on per NC at 2L/min, decreased from 4L/min while ambulating. O2 sats mid to high 90s at this time. Denies pain. Vitals obtained. Denies other needs at this time.
--- NOTE | 2020-04-11 20:00 | NUR ---
PT SO FAR REMAINS ON 2L O2 NC. PT IS AAOX4, PT HAS NO SOB. UPPER LOBES ARE CLEAR, LOWER LOBES ARE DIMINISHED. NO PERIPHERAL EDEMA NOTED OR ANY OTHER ISSUES. WILL CONTINUE TO MONITOR.
--- NOTE | 2020-04-11 23:16 | NUR ---
PT IS SLEEPING AT THIS TIME. NO NEW CONCERNS NOTED.
--- NOTE | 2020-04-11 23:57 | EKG ---
[facility] [address] [facility] [place] [address] Signed Atrial fibrillation Right bundle branch block Abnormal ECG When compared with ECG of 03-MAR-2020 10:32, Atrial fibrillation has replaced Atrial flutter Questionable change in QRS axis Confirmed by AMANDA GONZALES MD ([id number]) on 04/11/2020 11:56:59 PM Electronically Signed By: AMANDA GONZALES MD 04/11/20 2357 PATIENT NAME: NATALIEDSON SOTO Electrocardiogram DATE OF : 35 PHYSICIAN: AMANDA GONZALES MD REPORT #: [id number] REPORT IS CONFIDENTIAL AND NOT TO BE RELEASED WITHOUT AUTHORIZATION
--- NOTE | 2020-04-12 00:58 | NUR ---
PT IS AWAKE IN BED WATCHING TV AT THIS TIME. PT HAS NO NEEDS AT THIS TIME.
--- NOTE | 2020-04-12 02:04 | NUR ---
PT IS MOVING AROUND IN BED. PT SEEMS TO BE GETTING READY TO GO BACK TO SLEEP. NO NEW CONCERNS WERE NOTED.
--- NOTE | 2020-04-12 03:31 | NUR ---
PT AT THIS TIME IS BACK ASLEEP AT THIS TIME. A BIT AGO PT CALLED OUT FOR PAIN MEDICATION. PT STATED THAT HIS PAIN WAS 8/10 IN BOTH FEET. PRN TYLENOL WAS GIVEN SINCE PT DOES TAKE IT AT HOME FOR THE SAME PROBLEM. I INSPECTED HIS FEET BUT DID NOT FIND ANYTHING.
--- NOTE | 2020-04-12 06:16 | NUR ---
PT OVERALL HAD AN UNEVENTFUL NIGHT. PT REMAINED ON 2L O2 NC AND IS SATING WELL ON IT. LOBES ARE CLEAR BUT DIMINISHED IN THE BASES. ASSESSMENT SHOWED NO OTHER ISSUES. V/S OVERALL WERE WDL, URINE OUTPUT IS ADEUQATE. NO NEW CONCERNS WERE NOTED THIS SHIFT.
--- NOTE | 2020-04-12 09:15 | NUR ---
PT UP IN THE ROOM INDEPENDANTLY APPEARS STEADY ON HIS FEET. PT DOING SELF CARES. DENIES DISCOMFORTS OR SOB. 02 TURNED OFF THIS DIRECTOR OF SECURITY REMAINS IN THE ROOM FOR ASSESSMENT, MEDS, ETC. 02 CHECKED SATS MID 90'S 02 LEFT OFF
--- NOTE | 2020-04-12 10:00 | NUR ---
SATS REMAIN AT 94% ON ROOM AIR. PT TOLERATES 100% OF BREAKFAST. SHAVING SUPPLIES PROVIDED PER REQUEST. PT CONTINUES UP IN THE ROOM DENIES DISCOMFORTS, SOB, OR FURTHER NEEDS.
--- NOTE | 2020-04-12 11:20 | NUR ---
PATIENT IND IN ROOM. AM CARE, ORAL CARE, AND STUFF TO SHAVE PROVIDED FOR PATIENT. CALL LIGHT IN REACH. NO FURTHER NEEDS AT THIS TIME. PATIENT REFUSED SHOWER.
--- NOTE | 2020-04-12 11:53 | NUR ---
PT RESTING IN BED SATS 95% HE CONTINUES ON ROOM AIR. PT USES I/S EFFECTIVELY AND CONTINUES TO DO SO WITHOUT INSTRUCTION. NOON MEAL ORDERED PT DENIES OTHER NEEDS OF
--- NOTE | 2020-04-12 13:02 | NUR ---
DR GONZALES IN TO SEE PT, ALL QUESTIONS ANSWERED. SATS REMAIN 97% ON ROOM AIR
--- NOTE | 2020-04-12 13:49 | NUR ---
DUE TO PRECAUTIONS I AM UNABLE TO VISIT IN PERSON. INFORMED RN THAT I AM AVAILABLE BY PHONE IF PT NEEDS, SHE ACKNOWLEDGES. WILL FOLLOW
--- NOTE | 2020-04-12 14:45 | NUR ---
SPOKE WITH PATIENT VIA PHONE IN ROOM DUE TO COVID POSITIVE RESULTS. PATIENT ALERT AND ORIENTED AND ABLE TO SPEAK WITHOUT DIFFICULTY. PATIENT STATES HE IS NOT REQUIRING OXYGEN TODAY. HE IS VERY HAPPY ABOUT THIS. HE STATES HE NO LONGER USES OXYGEN AT HOME AND DIDN'T WANT TO HAVE TO "GO THROUGH ALL THAT AGAIN". PATIENT LIVES ALONE. HE USES A 4WW AT HOME AND A CANE. HE DOES HAVE A NEBULIZER. HE STATES HE IS UP AND AROUND THE ROOM "PRETTY GOOD" AND THINKS HE CAN GO HOME AT DISCHARGE. IN FACT HE REFUSES TO EVEN CONSIDER ANY OTHER OPTION. HE IS OK WITH HOME HEALTH IF HE EVER NEEDED IT. HE STATES HIS SON AND NEPHEW DO COME ON OCCASION. HE HAS A FRIEND WHO COMES OVER AND DOES SOME HOUSE CLEANING FOR HIM A COUPLE TIMES A WEEK, HE THINKS HE MAY HAVE GOT COVID FROM HER SHE CLEANS MANY PLACES. HE STATES HE DOES NOT USE A MASK, USES A FACE SHEILD USING A FACE MASK IS TOO HARD WITH HIS COPD. 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 WE DISCUSSED HE WILL NEED TO QUARANTINE. DISCUSSED THAT HE WILL NEED SOMEONE ELSE TO GO TO THE STORE FOR HIM. HE STATES HE CAN WORK ON THAT. I DISCUSSED THAT CHW ERICK CAN HELP HIM WITH THESE THINGS IF NEEDED. HE STATES HE WILL TALK WITH HER. PATIENT SPEAKS WITH HER SEVERAL TIMES A WEEK MOST OF THE TIME ALREADY. HE FEELS VERY CONFIDENT SHE CAN HELP HIM WITH ANY NEEDS. HE STATES HE IS SO FAR AFFORDING MEDICATIONS AND FOOD. HE RECENTLY SET UP A PAYMENT PLAN WITH [employer]. HE HAS HIS CANE IN THE ROOM AND HAS A 4WW AT HOME. QUESTIONS ANSWERED. HE FEELS VERY SAFE TO RETURN HOME WHEN DOCTOR SAYS HE IS ABLE TO DISCHARGE. CM WILL CONTINUE TO FOLLOW.
--- NOTE | 2020-04-12 15:24 | NUR ---
PT CONTINUES TO SAT MID 90s ON RA. UP IN ROOM INDEPENDANTLY. DENIES SOB OR DISCOMFORTS. PT STATES MD TOLD HIM HE CAN GO HOME DAY AFTER TOMORROW. PT STATES HE THINKS HE WILL BE READY BY THEN
[2020-04-12] MEDS ORDERED: TYLENOL325 M1 PO (18:00)
--- NOTE | 2020-04-12 18:14 | NUR ---
PATIENT IND IN ROOM. PATIENT IN BED WATCHING TV. CALL LIGHT IN RREACH. NO FURTHER NEEDS AT THIS TIME .
--- NOTE | 2020-04-12 19:45 | NUR ---
RECEIVED REPORT AT 1900, PT WAS AWAKE IN BED. PT FELT CONSTIPATED AND WANTED SOME MAG OX. MD GONZALES WAS CALLED AT ABOUT 1930 OR SO AND AN ORDER FOR 400MG MAGOX WAS RECEIVED. LACTULOSE PRN WAS ALSO GIVEN. V/S ARE WDL, HR IS CONTROLLED. UPPER LOBES ARE CLEAR, LOWER LOBES ARE DIMINISHED. NO OTHER CONCERNS WERE NOTED WITH ASSESSMENT. PT REMAINS ON RA. URINE OUTPUT SO FAR IS ADEQUATE. WILL CONTINUE TO MONITOR.
--- NOTE | 2020-04-12 22:00 | NUR ---
PT AT THIS TIME IS SLEEPING. NO NEW CONCERNS WERE NOTED.
--- NOTE | 2020-04-13 00:05 | NUR ---
PT IS SLEEPING AT THIS TIME. NO NEW CONCERNS NOTED.
--- NOTE | 2020-04-13 02:49 | NUR ---
PT AT THIS TIME IS SLEEPING AGAIN. I BIT EARLIER PT WENT TO THE BATHROOM.
--- NOTE | 2020-04-13 04:03 | NUR ---
PT IS SLEEPING AT THIS TIME.
--- NOTE | 2020-04-13 07:19 | NUR ---
PT HAD AN UNEVENTFUL NIGHT. PT STILL ON RA, V/S ARE WDL, URINE OUTPUT IS ADEQUATE.
--- NOTE | 2020-04-13 08:11 | NUR ---
PT REPORTS HE HAD A GOOD NIGHT. RESTING IN BED AT THIS TIME STILL ON ROOM AIR SATS MID 90'S. ANTICIPATES BREAKFAST
--- NOTE | 2020-04-13 09:54 | NUR ---
PT UP IN THE ROOM INDEPENDANTLY TOLERATES 100% OF MORNING MEAL ORDERS MORE. DISCUSSED MEDICATION SIDE EFFECTS UNDERSTANDING VERBALIZED. PT DENIES NEEDS AT THIS TIME
[2020-04-13] MEDS ORDERED: ATENOLOL25 MG PO (10:42)
[2020-04-13] MEDS ORDERED: DEXAMETHASONE6 MG PO (10:44)
--- NOTE | 2020-04-13 13:42 | NUR ---
UNABLE TO PHYSICALLY VISIT WITH PT DUE TO PRECAUTIONS. PT APPEARS TO BE IMPROVING. WILL FOLLOW NEEDED
--- NOTE | 2020-04-13 13:49 | NUR ---
PT UP IN ROOM JUST FINISHED NEB TREATMENT CONTINUES TO SAT MID 90'S ON ROOOM AIR. DENIES NEEDS AT THIS TIME. PT COMPLIANT WITH FLUID RESTRICTION.
--- NOTE | 2020-04-13 15:06 | NUR ---
PATIENT SITTING ON EDGE OF BED. FRESH WATER GIVEN. REFUSED SHOWER. CALL LIGHT IN REACH. NO FURTHER NEEDS AT THIS TIME.
--- NOTE | 2020-04-13 15:24 | NUR ---
Spoke with Carlos through his door. He is up independently in his room. Plans on discharge to home tomorrow, feels good. Denies needs to go home.
--- NOTE | 2020-04-13 19:04 | NUR ---
PATIENT SITTING IN SIDE OF BED WATCHING TV. FRESH WATER GIVEN. CALL LIGHT IN REACH. NO FURTHER NEEDS AT THIS TIME.
--- NOTE | 2020-04-13 19:49 | NUR ---
SHIFT REPORT FROM NURSE DEWITT. PT IN BATHROOM. WILL CHECK BACK WITH EVENING MEDS.
--- NOTE | 2020-04-13 21:40 | NUR ---
ASSESSMENT COMPLETE. VSS. PT STATES HE FEELS REALLY GOOD. PT REPORTS HE HAS BEEN USING INCENTIVE SPIROMETER FREQUENTLY. UNABLE TO AUSCULATE LUNG SOUNDS DUE TO PAPR PPE. PT REQUESTED PRN TYLENOL FOR FOOT NEUROPATHY WITH HIS EVENING MEDS. NO FURTHER NEEDS AT THIS TIME. CALL LIGHT WITHIN REACH
--- NOTE | 2020-04-13 23:32 | NUR ---
CHECKED ON PT. PT APPEARS TO BE SLEEPING WITH EYES CLOSED, EVEN UNLABORED BREATHING. PT IS LAYING RIGHT LATERAL FACING GLASS DOOR OF ROOM. NO APPARENT SIGNS OF DISTRESS. CALL LIGHT WITHIN REACH.
--- NOTE | 2020-04-14 01:40 | NUR ---
CHECKED ON PT. PT SLEEPING RIGHT LATERAL; EVEN UNLABORED BREATHING. NO SIGNS OF DISTRESS. CALL LIGHT WITHIN REACH
--- NOTE | 2020-04-14 04:25 | NUR ---
CHECKED ON PT; PT SLEEPING SUPINE, EVEN UNLABORED BREATHING. NO SIGNS OF DISTRESS. CALL LIGHT WITHIN REACH
--- NOTE | 2020-04-14 07:33 | NUR ---
REPORT RECEIVED FROM SARI BLOUNT. PT IN BED BUT SPOKE TO THROUGH DOOR. PT STATES HE IS DOING WELL AND HE IS GOING HOME THIS MORNING.
--- NOTE | 2020-04-14 08:17 | NUR ---
administered morning meds. pt sitting up at side of bed. given breakfast. talkative and wanting to go home. wondering how he is going to get the few groceries he needs. doesnt have any family or friends that can go get it. states it will talk to case mgm and see if we can figure something out.
--- NOTE | 2020-04-14 09:40 | NUR ---
VITALS CHARTED BY RN. I&OS CHARTED, PATIENT UP IN ROOM
--- NOTE | 2020-04-14 09:44 | NUR ---
SPOKE WITH PT ABOUT GROCERIES AND CAREGIVER. STATES HE DOESNT THINK HIS CAREGIVER CAN COME OVER BECAUSE SHE HAS NOT HAD COVID.
--- NOTE | 2020-04-14 11:29 | NUR ---
WENT OVER DISCHARGE INFORMATION. GISELLA PABLO WENT TO [employer] STORE WITH PT'S ESQUEDA AND BOUGHT THE FEW GROCERIES HE NEEDED. CHANGE GIVEN BACK WITH RECEIPT AND VERIFIED BY THIS RN. PT VERY GRATEFUL. VERBALIZED UNDERSTANDING OF MED CHANGES.
--- NOTE | 2020-04-14 11:50 | NUR ---
Spoke with Carlos as he plans on dc today and is wanting someone to grocery shop. I asked where his collection systems foreman is who checks on him daily. He gave her 2 weeks off as he has Covid. Discussed he should have her check on him, but not come in the house. He needs to wear a mask. He has found someone else to shop for him. Denies other needs to dc. Neighbor will check on him.
== END 2020-04-14 11:37 | disposition home or self-care (01) | DRG 177 ==
LOC: ED 09:00 → CCU 12:56 → MS 12:56
PROVIDERS: ADMIT Internal Medicine; ATTEND Internal Medicine
PROC: XW033E5 Introduction of Remdesivir Anti-infective into Peripheral Vein, Percutaneous Approach, New Technology Group 5 (ICD-10-PCS; principal; 2020-04-10)
PROC: XW033E5 Introduction of Remdesivir Anti-infective into Peripheral Vein, Percutaneous Approach, New Technology Group 5 (ICD-10-PCS; 2020-04-11)
PROC: XW033E5 Introduction of Remdesivir Anti-infective into Peripheral Vein, Percutaneous Approach, New Technology Group 5 (ICD-10-PCS; 2020-04-12)
PROC: XW033E5 Introduction of Remdesivir Anti-infective into Peripheral Vein, Percutaneous Approach, New Technology Group 5 (ICD-10-PCS; 2020-04-13)
PROC: XW033E5 Introduction of Remdesivir Anti-infective into Peripheral Vein, Percutaneous Approach, New Technology Group 5 (ICD-10-PCS; 2020-04-14)
DX: U07.1 COVID-19 (principal); J12.89 Other viral pneumonia; J96.01 Acute respiratory failure with hypoxia; I50.33 Acute on chronic diastolic (congestive) heart failure; I48.21 Permanent atrial fibrillation; J44.0 Chronic obstructive pulmonary disease with (acute) lower respiratory infection; E78.5 Hyperlipidemia, unspecified; K21.9 Gastro-esophageal reflux disease without esophagitis; F41.9 Anxiety disorder, unspecified; F32.9 Major depressive disorder, single episode, unspecified; Z95.5 Presence of coronary angioplasty implant and graft; Z88.8 Allergy status to other drugs, medicaments and biological substances; Z87.891 Personal history of nicotine dependence; Z79.899 Other long term (current) 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; Z79.82 Long term (current) use of aspirin; Z79.891 Long term (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 analgesic
CPT/HCPCS: 71045; 80053; 83735; 83880; 84484; 85025; 93005; 93010; 94640; 94760; 96374; 96375; 99285-25; J1650; J1940; J2930; J7050; J8540; U0003

== ENCOUNTER 2020-04-19 12:58 | Emergency (ER) | payer MEDICARE ==
[~2020-04-19] VITALS: Ht 175.3 cm; Wt 70.8 kg
[~2020-04-19 12:58] MED LIST changes: +DEXAMETHASONE6 MG PO; +TYLENOL325 M1 PO
--- OUTSIDE RECORDS SUMMARY | 2020-04-19 13:02 | XMS ---
PreManage Notification: EDSON HURST Security Master Tax Advisor Events 1 event(s) in the past 18 months Most recent security events: Elopement at [facility] 11/25/2019 20:37 - Other Details: PATIENT LWBS. CRITERIA MET - Group Notification - 6 ED Visits in 6 Months - [facility] - Has Care Guidelines - [facility] - 2 Visits in 30 Days CARE PROVIDERS ROSA ENNIS Physician Linotype Machinist Apprentice 05/31/2018-Current PHONE: Unknown Jose F has no Care Guidelines for this patient. Care History Medical/Surgical 11/26/2019 [facility] - CHW CONTACTED PATIENT- PATIENT WOULD LIKE HELP WITH GETTING AN APT IN REGARDS TO HIS CHRONIC CONSTIPATION. - CHW CONTACTED DR JIMENEZ OFFICE-SCHEDULED AN APT 01/05/20 @ 9:20AM EARLIEST APT. THEY DID PUT PATIENT ON THE WAIT LIST FOR CANCELLATIONS. - CHW CONTACTED PCP DR ENNIS-DISCUSSED A POSSIBLE REFERRAL TO A TRAFFIC CONTROL OFFICER. - CHW LEFT A MESSAGE WITH SURESH COX AT [facility] -RESPIRATORY THERAPIST-PULMONARY REHAB. - SARI GÓMEZ-SHEET METAL PRODUCTION WORKER HAS EDUCATED PATIENT ABOUT PAIN MEDICATION AND CONSTIPATION 08/26/2019 [facility] Left message with [facility] requesting LAMA and ICS be added to patient\T\#39;s care plan. E.D. VISIT COUNT (12 MO.) [address] [facility] TOTAL 12 NOTE: Visits indicate total known visits. ED/UCC VISIT TRACKING (12 MO.) 04/19/2020 13:00 [facility] TYPE: Emergency COMPLAINT: - WEAKNESS, AB PAIN, SHORTNESS OF BREATH 04/10/2020 09:00 [facility] TYPE: Emergency COMPLAINT: - SOB 03/03/2020 10:00 [facility] TYPE: Emergency COMPLAINT: - WEAKNESS 02/16/2020 11:26 [facility] TYPE: Emergency COMPLAINT: - RAPID HEART RATE/DEPRESSED DIAGNOSES: - Personal history of nicotine dependence - Allergy status to other drugs, medicaments and biological substances - Heart failure, unspecified - Chronic obstructive pulmonary disease, unspecified - superintendent terminal (current) use of aspirin - Paroxysmal atrial fibrillation - Other supervisor 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s (current) 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 - Palpitations 11/28/2019 15:55 [facility] TYPE: Emergency COMPLAINT: - BACK PAIN DIAGNOSES: - Allergy status to other drugs, medicaments and biological substances - Low back pain - Personal history of nicotine dependence - Dorsalgia, unspecified - Unspecified atrial fibrillation - Other correction (current) 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 - Heart failure, unspecified [...] drugs, medicaments and biological substances - Other correction (current) 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 - Personal history of nicotine dependence - Heart failure, unspecified - Shortness of breath - Chronic atrial fibrillation, unspecified - Localized edema - long-term (current) use of aspirin - Chronic obstructive pulmonary disease, unspecified - Dependence on supplemental oxygen 08/23/2019 14:25 [facility] TYPE: Emergency COMPLAINT: - BLOOD PRESSURE PROBLEM DIAGNOSES: - Personal history of nicotine dependence - Chronic obstructive pulmonary disease, unspecified - Other correction (current) 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 - Weakness - Heart failure, unspecified - Unspecified atrial fibrillation 08/12/2019 09:09 [facility] TYPE: Emergency COMPLAINT: - VOMITING DIAGNOSES: - Personal history of nicotine dependence - Nausea with vomiting, unspecified - Unspecified atrial fibrillation - Acute gastritis without bleeding - Other correction (current) 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 - Chronic obstructive pulmonary [...] against other object, initial encounter - Other correction (current) 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 - Laceration without foreign body of right forearm, initial encounter INPATIENT VISIT TRACKING (12 MO.) 04/10/2020 12:[address] [facility] [place] TYPE: Medical Surgical COMPLAINT: - ACUTE RESPIATORY FAILURE, HYPOXEMIA COVID+ DIAGNOSES: - Allergy status to other drugs, medicaments and biological substances - Other viral pneumonia - Personal history of nicotine dependence - Acute respiratory failure with hypoxia - COVID-19 - Allergy status to other drugs, medicaments and biological substances - Other supervisor 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s (current) 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 - Major depressive disorder, single episode, unspecified - Anxiety disorder, unspecified - Hyperlipidemia, unspecified - Permanent atrial fibrillation - Other supervisor 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s (current) 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 - Major depressive disorder, single episode, unspecified - Acute on chronic diastolic (congestive) heart failure - Acute on chronic diastolic (congestive) heart failure - Presence of coronary angioplasty implant and graft - long-term (current) use of aspirin - Anxiety disorder, unspecified - Hyperlipidemia, unspecified - long-term (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 analgesic - Personal history of nicotine dependence - Gastro-esophageal reflux disease without esophagitis - Presence of coronary angioplasty implant and graft - Gastro-esophageal reflux disease without esophagitis - Acute respiratory failure with hypoxia - superintendent terminal (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 analgesic - superintendent terminal (current) use of aspirin - Permanent atrial fibrillation - Other viral pneumonia - Chronic obstructive pulmonary disease with (acute) lower respiratory infection - Chronic obstructive pulmonary disease with (acute) lower respiratory infection 03/03/2020 15:30 [facility] TYPE: Medical Surgical COMPLAINT: - CHF DIAGNOSES: - Major depressive disorder, single episode, unspecified - Acute on chronic diastolic (congestive) heart failure - Allergy status to other drugs, medicaments and biological substances - Acute respiratory failure with hypoxia - Patient's other noncompliance with medication regimen - Gastro-esophageal reflux disease without esophagitis - Other correction (current) 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 - Chronic obstructive pulmonary disease, unspecified - Anxiety disorder, unspecified - Permanent atrial fibrillation - Contact with and (suspected) exposure to other viral communicable diseases - superintendent terminal (current) use of aspirin - Hyperlipidemia, unspecified [...] - Retention of urine, unspecified - Other correction (current) 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 - Permanent atrial fibrillation - superintendent terminal (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 analgesic - Permanent atrial fibrillation - Respiratory failure, unspecified with hypoxia - Unsteadiness on feet - long-term (current) use of aspirin - Gastro-esophageal reflux disease without esophagitis - Allergy status to other drugs, medicaments and biological substances - superintendent terminal (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 analgesic - superintendent terminal (current) use of aspirin - Gastro-esophageal reflux disease without esophagitis - Chronic diastolic (congestive) heart failure - Chronic diastolic (congestive) heart failure - Respiratory failure, unspecified with hypoxia - Hyperlipidemia, unspecified - Other supervisor 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s (current) 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 - Retention of urine, [...] for fracture with routine healing - Other correction (current) 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 - Acute respiratory failure with hypoxia - Pneumonia due to Streptococcus pneumoniae - long-term (current) use of aspirin - Allergy status to other drugs, medicaments and biological substances - Personal history of nicotine dependence - Contact with and (suspected) exposure to asbestos - Acute on chronic diastolic (congestive) heart failure [email or web address]
== END 2020-04-19 14:29 | disposition home or self-care (01) ==
LOC: ED 12:58
DX: Z53.21 Procedure and treatment not carried out due to patient leaving prior to being seen by health care provider (principal)

== ENCOUNTER 2020-04-20 16:03 | Inpatient (IN) | payer MEDICARE ==
[~2020-04-20] VITALS: Ht 175.3 cm; Wt 69.0 kg
--- OUTSIDE RECORDS SUMMARY | 2020-04-20 16:06 | XMS ---
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 CRITERIA MET - Group Notification - 6 ED Visits in 6 Months - - Has Care Guidelines - PDMP - - 2 Visits in 30 Days CARE PROVIDERS ROSA ENNIS Physician Cistern Room Operator 05/31/2018-Current PHONE: Unknown Jose F has no Care Guidelines for this patient. Care History Medical/Surgical 11/26/2019 [facility] - CHW CONTACTED PATIENT- PATIENT WOULD LIKE HELP WITH GETTING AN APT IN REGARDS TO HIS CHRONIC CONSTIPATION. - CHW CONTACTED DR JIMENEZ OFFICE-SCHEDULED AN APT 01/05/20 @ 9:20AM EARLIEST APT. THEY DID PUT PATIENT ON THE WAIT LIST FOR CANCELLATIONS. - CHW CONTACTED PCP DR ENNIS-DISCUSSED A POSSIBLE REFERRAL TO A INTERCEPTOR OPERATOR. - CHW LEFT A MESSAGE WITH SURESH COX AT [facility] -RESPIRATORY THERAPIST-PULMONARY REHAB. - SARI GÓMEZ-CHILD AND FAMILY THERAPIST HAS EDUCATED PATIENT ABOUT PAIN MEDICATION AND CONSTIPATION 08/26/2019 [facility] Left message with [facility] medicine requesting LAMA and ICS be added to patient\T\#39;s care plan. E.D. VISIT COUNT (12 MO.) [address] [facility] TOTAL 13 NOTE: Visits indicate total known visits. ED/UCC VISIT TRACKING (12 MO.) 04/20/2020 16:04 [facility] TYPE: Emergency COMPLAINT: - SOB 04/19/2020 13:00 [facility] TYPE: Emergency [...] - Chronic obstructive pulmonary disease, unspecified - predatory animal exterminator (current) use of aspirin - Paroxysmal atrial fibrillation - Other long term care social worker (current) 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 - Palpitations 11/28/2019 15:55 [facility] TYPE: Emergency COMPLAINT: - BACK PAIN DIAGNOSES: - Allergy status to other drugs, medicaments and biological substances - Low back pain - Personal history of nicotine dependence - Dorsalgia, unspecified - Unspecified atrial fibrillation - Other long term care social worker (current) 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 - Heart failure, unspecified [...] drugs, medicaments and biological substances - Other long term care social worker (current) 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 - Personal history of nicotine dependence - Heart failure, unspecified - Shortness of breath - Chronic atrial fibrillation, unspecified - Localized edema - predatory animal exterminator (current) use of aspirin - Chronic obstructive pulmonary disease, unspecified - Dependence on supplemental oxygen 08/23/2019 14:25 [facility] TYPE: Emergency COMPLAINT: - BLOOD PRESSURE PROBLEM DIAGNOSES: - Personal history of nicotine dependence - Chronic obstructive pulmonary disease, unspecified - Other prison (current) 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 - Weakness - Heart failure, unspecified - Unspecified atrial fibrillation 08/12/2019 09:09 [facility] TYPE: Emergency COMPLAINT: - VOMITING DIAGNOSES: - Personal history of nicotine dependence - Nausea with vomiting, unspecified - Unspecified atrial fibrillation - Acute gastritis without bleeding - Other long term care social worker (current) 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 - Chronic obstructive pulmonary [...] against other object, initial encounter - Other long term care social worker (current) 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 - Laceration without foreign body of right forearm, initial encounter INPATIENT VISIT TRACKING (12 MO.) 04/10/2020 12:56 [facility] TYPE: Medical Surgical COMPLAINT: - ACUTE RESPIATORY FAILURE, HYPOXEMIA COVID+ DIAGNOSES: - Allergy status to other drugs, medicaments and biological substances - Other viral pneumonia - Personal history of nicotine dependence - Acute respiratory failure with hypoxia - COVID-19 - Allergy status to other drugs, medicaments and biological substances - Other long term care social worker (current) 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 - Major depressive disorder, single episode, unspecified - Anxiety disorder, unspecified - Hyperlipidemia, unspecified - Permanent atrial fibrillation - Other long term care social worker (current) 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 - Major depressive disorder, single episode, unspecified - Acute on chronic diastolic (congestive) heart failure - Acute on chronic diastolic (congestive) heart failure - Presence of coronary angioplasty implant and graft - predatory animal exterminator (current) use of aspirin - Anxiety disorder, unspecified - Hyperlipidemia, unspecified - assisted (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 analgesic - Personal history of nicotine dependence - Gastro-esophageal reflux disease without esophagitis - Presence of coronary angioplasty implant and graft - Gastro-esophageal reflux disease without esophagitis - Acute respiratory failure with hypoxia - predatory animal exterminator (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 analgesic - assisted (current) use of aspirin - Permanent atrial [...] Gastro-esophageal reflux disease without esophagitis - Other prison (current) 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 - Chronic obstructive pulmonary [...] - Retention of urine, unspecified - Other long term care social worker (current) 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 - Permanent atrial fibrillation - predatory animal exterminator (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 analgesic - Permanent atrial fibrillation - Respiratory failure, unspecified with hypoxia - Unsteadiness on feet - assisted (current) use of aspirin - Gastro-esophageal reflux disease without esophagitis - Allergy status to other drugs, medicaments and biological substances - assisted (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 analgesic - predatory animal exterminator (current) use of aspirin - Gastro-esophageal reflux disease without esophagitis - Chronic diastolic (congestive) heart failure - Chronic diastolic (congestive) heart failure - Respiratory failure, unspecified with hypoxia - Hyperlipidemia, unspecified - Other prison (current) 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 - Retention of urine, [...] for fracture with routine healing - Other prison (current) 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 - Acute respiratory failure with hypoxia - Pneumonia due to Streptococcus pneumoniae - assisted (current) use of aspirin - Allergy status to other drugs, medicaments and biological substances - Personal history of nicotine dependence - Contact with and (suspected) exposure to asbestos - Acute on chronic diastolic (congestive) heart failure [email or web address]
--- NOTE | 2020-04-20 22:00 | NUR ---
PT ADMITED 2044, ALERT BUT TIRED. VERY HARD OF HEARING. STATES FEELS SOB AND REQUESTED NEB UPON ADMISSION. RR UPPER 20'S, NO ASSESSORY MUSCLE USE. NEB TX GIVEN AND NICK WELL. PT STATES IT DIDN'T HELP. ADVISED TO GIVE IT TIME. PT DOZED OFF. AFTER NURSE LEFT THE ROOM PT STOOD TO VOID, SPILLED URINE ON FLOOR AND WAS INC OF STOOL. LINEN CHANGED. NO INC SOB WITH ACTIVITY.
--- NOTE | 2020-04-20 22:57 | NUR ---
HAD PUT PT ON OXYMASK MOUTH BREATHES. PT TOOK IT OF AND REQUESTING TO USE NASAL CANNULA. INSTRUCTED TO USE MASK UNTIL NURSE COULD GO IN ROOM. IN MEANTIME HE DID NOT AND DID STAND TO VOID. NO INC IN SOB. FALLS TO SLEEP QUICKLY. GIVEN WARM BLANKET.
--- NOTE | 2020-04-21 01:35 | NUR ---
PT USED CALL LIGHT STATES NEEDS TO USE BR. UP TO BSC, NICK FAIR. VOIDED NO BM. USUAL MEDS GIVEN. TYLENOL 650MG PO GIVEN FOR COMFORT.
--- NOTE | 2020-04-21 05:05 | NUR ---
AWAKENED EASILY FOR VS AND LAB DRAW. SATS HAD BEEN 88-90, 02 FOUND OUT OF NOSE, SATS INCREASED TO 97 WHEN REPLACED. BACK TO SLEEP. RESP REG
--- NOTE | 2020-04-21 07:30 | NUR ---
REPORT RECIEVED, PATIENT IS LAYING IN BED.C/O FEELING SHORT OF BREATH. REQUESTING NEB TREATMENT.
--- NOTE | 2020-04-21 08:20 | NUR ---
ASSESSMENT DONE. FEW CRACKLES IN BASES. NEB TREATMENT GIVEN PER RT. REMAINS ON 5 L O2 NC.
--- NOTE | 2020-04-21 08:45 | NUR ---
SITTING AT BEDSIDE TO EAT. C/O INCREASED SHORTNESS OF BREATH WITH EXERTION. ROUTINE MEDICATIONS GIVEN. REMDESIVIR HUNG, XANAX GIVEN.
--- NOTE | 2020-04-21 09:00 | NUR ---
TO COMMODE TO EXPELL MED SEMI SOFT BROWM STOOL. BACK TO BED AFTER BED LINEN CHANGED. HOB ELEVATED TO APPROX 30 DEGREES.
--- NOTE | 2020-04-21 10:42 | NUR ---
SLEEPING, NO DISTRESS NOTED. ON 4 L NC.
--- NOTE | 2020-04-21 11:12 | NUR ---
CONTINUES TO SLEEP. HAS NOT VOIDED SINCE LASIX GIVEN THIS AM.
--- NOTE | 2020-04-21 12:10 | NUR ---
WOKE FOR ASSESSMENT, ASSESSMENT UNCHANGED. VERY TIRED. LUNCH AT BEDSIDE, WISHES TO WAIT ON LUNCH AT THIS TIME.
--- NOTE | 2020-04-21 13:20 | NUR ---
chilling, STATES HE FEELS LIKE HE IS GOING TO . TEMP-98.1.
--- NOTE | 2020-04-21 13:47 | NUR ---
DUE TO PRECAUTINS, UNABLE TO VISIT PT AT THIS TIME. WILL CHECK WITH SARI CHANDLER ABOUT ANY FOLLOW UP.
--- NOTE | 2020-04-21 14:30 | NUR ---
TYLENOL 650 MG PO GIVEN FOR COMFORT. NEB TREATMENT TO BE GIVEN.
--- NOTE | 2020-04-21 14:45 | NUR ---
NEB TREATMENT GIVEN.
--- NOTE | 2020-04-21 15:05 | NUR ---
UP TO COMMODE TO EXPELL LARGE SOFT STOOL.
--- NOTE | 2020-04-21 15:30 | NUR ---
BACK UP TO COMMODE TO EXPELL EX LG LOOSE STOOL. THIS IS THE 3RD STOOL PATIENT HAS HAD THIS THIS IS UNSTEADY ON FEET ASSESSMENT DONE. DOES NOT WHAT TO ORDER DINNER AT THIS TIME. O2 AT 5 L NC.
--- NOTE | 2020-04-21 15:59 | NUR ---
Update from RN. Pt is struggling with breathing. Knocked on his window and waved. His son in [place] is aware he is hospitalized and called today. Will follow up tomorrow.
--- NOTE | 2020-04-21 17:14 | NUR ---
IS HYPOTENSIVE, BP-60/40 MANUAL. PATIENT DENIES DIZZINESS. INC OF URINE. O2 AT 3 L. NO LONGER CHILLING.
--- NOTE | 2020-04-21 17:48 | NUR ---
DR. SOUTH UPDATED ON PT CONDITION AND BP. NO FUTHER ORDERS AT THIS TIME. REFUSING DINNER.
--- NOTE | 2020-04-21 18:32 | EKG ---
[facility] [address] [place] [address] Signed Atrial flutter with variable AV block Right bundle branch block Left anterior fascicular block Bifascicular block Abnormal ECG When compared with ECG of 10-APR-2020 09:20, Atrial flutter has replaced Atrial fibrillation Left anterior fascicular block is now present Confirmed by DONY SOUTH MD ([id number] on 04/21/2020 6:32:33 PM Electronically Signed By: DONY SOUTH MD 04/21/20 1832 PATIENT NAME: EDSON HURST Electrocardiogram DATE OF : 35 PHYSICIAN: DONY SOUTH MD REPORT #: [id number] REPORT IS CONFIDENTIAL AND NOT TO BE RELEASED WITHOUT AUTHORIZATION
--- NOTE | 2020-04-21 19:07 | NUR ---
NO CHANGES. REPORT TO NEXT SHIFT. REMAINS ON O2 AT 3 TO LITERS.
--- NOTE | 2020-04-21 19:30 | NUR ---
REPORT RECEIVED FROM GERALDINE GUO.
--- NOTE | 2020-04-21 20:15 | NUR ---
IN TO DO ASSESSMENT AND HS MEDS. PT REPORTS "I FEEL A LOT BETTER", DENIES SOB OR PAIN. RESP RATE 24, EVEN AND JUST A LITTLE BIT LABORED. PT HAS OCCASIONAL COUGH. ON 3L/O2.
--- NOTE | 2020-04-21 21:51 | NUR ---
IN TO DISCONNECT PT FROM IV ABX AND GIVE HIM SOME PUDDING. ASSISTED HIM WITH GETTING POSITIONED IN BED. STATES "I SURE HOPE I CAN SLEEP TONIGHT", REPORTS NOT SLEEPING LAST NIGHT.
--- NOTE | 2020-04-21 22:00 | NUR ---
SPO2 ON 3L/NC HAD BEEN 98-99%, O2 TITTRATED DOWN TO 2L/NC,SPO2 97-98%.
--- NOTE | 2020-04-22 00:35 | NUR ---
PT UP OUT OF BED SETTING OFF BED ALARM. VOIDING AT BEDSIDE. BACK TO BED. ASSESSMENT DONE. HR AND RESP RATE STEADY WHILE PT WAS UP.
--- NOTE | 2020-04-22 01:55 | NUR ---
PT CALLS FOR HELP STRAIGHTENING OUT HIS BLANKETS. ASSISTED WITH STRAIGHTENING OUT HIS BED AND REPOSITIONING HIM UP IN BED. STATES HE IS HAVING TROUBLE SLEEPING, HOPES TO SLEEP NOW THAT HE IS MORE COMFORTABLE.
--- NOTE | 2020-04-22 03:30 | NUR ---
PT CALLED FOR WATER, HELPED REPOSITION HIM IN BED. ASSESSMENT DONE.
--- NOTE | 2020-04-22 05:01 | NUR ---
PT CALLED TO ASK IF HE COULD HAVE A BREATHING TREATMENT, "MY BREATHING ISNT TOO GOOD RIGHT NOW". IN TO CHECK ON HIM, DOES NOT APPEAR LABORED, RR 18, SPO2 98% ON 2L. XANAX AND NEB TX GIVEN. PT HAS NOT BEEN ABLE TO SLEEP ALL NIGHT AND HAS GOTTEN INCREASINGLY RESTLESS THE LAST COUPLE OF HOURS. REPORTS FEELING NO DIFFERENCE IN BREATHING AFTER NEB TX. AFTER SITTING UP IN BED AND TALKING SOME WITH HIM HE IS MORE RELAXED AND STATES HE IS FEELING BETTER, NOW UP IN BED LOOKING AT MENU FOR BREAKFAST. LABS DRAWN. VSS.
--- NOTE | 2020-04-22 06:00 | NUR ---
PT APPEARS TO BE SLEEPING, EYES CLOSED, RESP EVEN UNLABORED.
--- NOTE | 2020-04-22 07:30 | NUR ---
REPORT RECIEVED. PATIENT IS RESTING IN BED. NO DISTRESS NOTED.
--- NOTE | 2020-04-22 09:00 | NUR ---
ASSESSMENT DONE. DENIES PAIN. PATIENT TALKING ABOUT HIS FEELINGS. STATES I DON'T THINK I AM GOING TO MAKE IT THIS TIME. SPENT SOME TIME TALKING TO PATIENT ABOUT. ROUTINE MEDICATIONS GIVEN. WILL START NEW IV SITE AFTER PATIENT EATS BREAKFAST.
--- NOTE | 2020-04-22 09:15 | NUR ---
Update from Rn, breathing easier through the night. Continue to monitor. Dr. Aguilar confirmed this in am report.
--- NOTE | 2020-04-22 09:30 | NUR ---
IV STARTED TO RIGHT FOREARM. TOOK BREAKFAST WELL. SPONGE BATH GIVEN, WILL CHANGE BED LINENS LATER TODAY.
--- NOTE | 2020-04-22 09:45 | NUR ---
C/O SORE MOUTH. TOLD PATIENT TO TALKE WITH MD ABOUT THIS WHEN SHE MAKES ROUNDS.
--- NOTE | 2020-04-22 10:38 | NUR ---
PT TALKING TO PEOPLE NOT IN THE ROOM, 1 MG IV ATIVAN GIVEN FOR HALLUCINATIONS.
--- NOTE | 2020-04-22 11:02 | NUR ---
FULL BED BATH, LINEN CHANGE, AND HAIR SHAMPOOED. MESSINA CATH CARES DONE, NYSTOP POWDER APPLIED TO GROIN FOLDS. PT NICK WELL.
--- NOTE | 2020-04-22 11:08 | NUR ---
RT HERE TO GIVE PATIENT A NEB TREATMENT. THIS GIVEN PER PATIENT REQUEST.
--- NOTE | 2020-04-22 13:37 | NUR ---
PRECAUTIONS DO NOT ALLOW ME TO VISIT PT. AM ROUNDING NOTED PT IS BREATHING EASIER TODAY. WILL FOLLOW
--- NOTE | 2020-04-22 14:00 | NUR ---
REQUESTING NEB TREATMENT. NO INCREASE OF BREATHING NOTED. DR. SOUTH HERE AND AWARE.
--- NOTE | 2020-04-22 14:10 | NUR ---
XANAX 0.25 MG PO GIVEN FOR ANXIETY.
--- NOTE | 2020-04-22 16:15 | NUR ---
CALLED TO CHECK ON PT STATUS, FULL REPORT GIVEN VIA PHONE, NO NEW ORDERS AT THIS TIME. DOCTOR STATES HE WILL BE IN TO SEE THE PT TOMORROW SOMETIME. ALL QUESTIONS ANSWERED.
--- NOTE | 2020-04-22 16:20 | NUR ---
ASSESSMENT DONE. NO CHANGES.
--- NOTE | 2020-04-22 16:25 | NUR ---
PT GIVEN 1 MG IV ATIVAN FOR VISUAL AND AUDITORY HALLUCINATIONS. ALL IV SITES ARE INTACT, FUSH WELL.
--- NOTE | 2020-04-22 16:38 | NUR ---
o2 decreased to 1 l nc. PATIENT IS VERY TALKATIVE.
--- NOTE | 2020-04-22 17:20 | NUR ---
DRESSING CHANGED ON PT LEFT PER 'S ORDER. PT NICK WELL. NO DRAINAGE NOTED.
--- NOTE | 2020-04-22 18:00 | NUR ---
NO CHANGES NOTED. TOOK DINNER WELL. O2 REMAINS AT 1 L PER NC.
--- NOTE | 2020-04-22 18:10 | NUR ---
PT ABLE TO EAT BAKED POTATO FOR DINNER. TAKES PO MEDS EASILY. PT IS A FEED ASSIST WITH FOOD. PT IS AWAKE, FORGETFUL, FLAT.
--- NOTE | 2020-04-22 19:14 | NUR ---
PATIENT IS RESTING. REPORT TO NEXT SHIFT.
--- NOTE | 2020-04-22 20:00 | NUR ---
PATIENT PROVIDED WITH SCHEDULED ABX AND REQUEST A NEB TREATMENT. PATIENT REPORTS FEELING SLIGHTLY SOB. BREATHING APPEARS A LITTLE LABORED. 1L NC, 02 SAT 98%. RR 20. PATIENT VOIDING QS. URNAL EMPTIED. ASSISTED PATIENT TO REPOSITION IN BED. FAMILY CALLED TO VISIT. PROVIDED PATIENT PRIVACY. CALL LIGHT IN REACH. PATIENT ALSO REQUEST A SLEEP AID. REPORTS TAKING 10MG AMBIEN AT HOME AND SOMETHING FOR A COUGH.
--- NOTE | 2020-04-22 20:36 | NUR ---
DISCUSSED PATIENT'S REQUEST WITH FOR SLEEP AID AND COUGH SUPPRESSANT
--- NOTE | 2020-04-22 21:30 | NUR ---
PROVIDED PATIENT WITH EVENING MEDS AND PRN MEDS PER REQUEST. PATIENT DENIES FEELING SOB AT THIS TIME. TOLERATING 1L NC. VS STABLE. ASSISTED PATIENT UP TO USE THE URNAL. PATIENT TOLERATED WELL. REQUEST LIGHTS BE OFF BUT CURTAIN TO HALLWAY AND OUTSIDE LEFT OPEN.
--- NOTE | 2020-04-23 00:45 | NUR ---
PATIENT UP TO THE BEDSIDE TO USE THE URNAL. REPORTS SLEEPING MORE THAN HIS HAS BEEN SO FAR. DENIES ANY NEEDS. VS STABLE. TOLERATING 1L NC. PATIENT IS WEAK AND REQUEST ASSISTANCE TO REPOSITION IN BED. PATIENT REPORTS BEING COMOFRTABLE AND DENIES OTHER NEEDS. CALL LIGHT IN REACH.
--- NOTE | 2020-04-23 04:00 | NUR ---
PATIENT REPORTS TROUBLE SLEEPING. REQUEST PRN TYLENOL FOR ACHING LEGS. SNACK PROVIDED PER REQUEST. PATIENT TOLERATING 1L NC.
--- NOTE | 2020-04-23 05:50 | NUR ---
PT CALLED TO REPORT THAT HE WAS FEELING ANXIOUS. PRN ALPRAZOLAM GIVEN. VITAL SIGNS OBTAINED AND STABLE. PROVIDED PT WITH REASSURANCE AND ENCOURAGED HIM TO PRACTICE SOME BREATHING EXERCISES.
--- NOTE | 2020-04-23 06:30 | NUR ---
MORNING LABS DRAWN. PATIENT REPORTS FEELING LESS ANXIOUS AT THIS TIME. DENIES ANY FURTHER NEEDS.
--- NOTE | 2020-04-23 07:15 | NUR ---
Report received, orders acknowledged. Patient sleeping in bed, respirations even and unlabored. 1LNC in place, SpO2 of 96%. Call light within reach.
--- NOTE | 2020-04-23 08:00 | NUR ---
Patient sleeping in bed, respirations even and unlabored. 1LNC in place, SpO2 in the upper 90's. Patient rouses easily to voice. Vital signs taken, assessment complete. Patient states "This is the worst I've felt since I've been in the hospital." Patient weakly sits up at edge of bed with feet on floor. Breakfast delivered, patient denies appetite, eats 25% of meal. Urinal emptied of 25 mls of concentrated urine. AM medications given, IV remdesivir hung and infusing. Warm cloth provided to wash face and eyes, new gown put on patient. Patient denies further needs, call light within reach.
--- NOTE | 2020-04-23 09:30 | NUR ---
Dr. Aguilar in room to assess patient and discuss POC
--- NOTE | 2020-04-23 09:59 | NUR ---
Patient laying in bed watching tv. 1LNC in place, 95% SpO2. Patient waves from inside room to say hello. Denies needs, call light within reach.
--- NOTE | 2020-04-23 11:54 | NUR ---
Patient laying in bed watching tv. 1LNC in place, sats of 96%. RR in the low 20's, no SOB or work of breathing noted. Call light within reach.
--- NOTE | 2020-04-23 12:48 | NUR ---
SPOKE TO PATIENT BY PHONE. PATIENT IS VERY TEARY. STATES HE FEELS "PRETTY ROUGH". STATES HE HAS BEEN CRYING ALL MORNING, BUT "HAPPY CRY" BECAUSE HE GOT TO TALK TO 3 OR HIS 4 DAUGHTERS TODAY BY PHONE. PATIENT VERY EMOTIONAL. WE TALKED FOR EXTENDED TIME. PATIENT PLANS TO RETURN HOME AT DISCHARGE. DID NOT PUSH ALTERNATE PLAN AT THIS TIME. PATIENT IS TRYING TO FILL OUT PAPERWORK TO CHANGE INSURANCE THAT A FRIEND PICKED UP FROM HIS HOUSE AND DROPPED OFF FOR HIM. HE ASKS THAT WHEN HE GETS IT DONE THE STAFF CAN LEAVE IT AT THE MARKETING ADMINISTRATOR FOR HIS FRIEND TO SAMPLE EXAMINER. I ASSURRED HIM THEY CAN DO THAT FOR HIM. CM WILL CONTINUE TO FOLLOW.
--- NOTE | 2020-04-23 12:53 | NUR ---
PT STILL UNDER PRECAUTIONS, GAVE G.POST TO SARI DONIS TO GIVE TO PT. WILL FOLLOW
--- NOTE | 2020-04-23 14:00 | NUR ---
IN PATIENT'S ROOM TO HELP HIM FILL OUT HIS PERSONAL MEDICARE FORMS. PATIENT ALSO GIVEN A TOOTHBRUSH AND HIS NYSTATIN TO SWISH AND SWALLOW. PT REPORTS HIS MOUTH IS STILL PAINFUL. PATIENT TAKEN OFF OXYGEN AROUND THIS TIME WELL, SINCE HIS SP02 IS 95% ON ROOM AIR. PT A LITTLE ANXIOUS ABOUT NOT HAVING HIS OXYGEN, AND INSTRUCTED TO CALL IF HE STARTS TO FEEL SHORT OF BREATH, BUT ALSO REASSURED THAT WE ARE WATCHING HIS SP02 MONITOR CONTINUOUSLY.
--- NOTE | 2020-04-23 14:48 | NUR ---
Patient laying in bed watching tv. Reports feeling anxious because SpO2 is 93%. Therapeutic communication provided to help calm patient. Call light within reach. Will continue to monitor.
--- NOTE | 2020-04-23 16:00 | NUR ---
Patient anxious about SpO2 at 93%, uses call light to alert nursing staff regarding saturation. Therapeutic communication used, requested patient to take slow, deep breaths, which helps. Carrot cake and cranberry juice delivered to patient. PRN xanax given. Patient denies further needs, call light within reach.
--- NOTE | 2020-04-23 17:00 | NUR ---
Patient transferred to M/S, all patient belongings collected. Patient leaves unit via chair on RA. Sats in the mid-90's. Arrives to room 117, assisted into bed. Call light within reach.
--- NOTE | 2020-04-23 17:16 | NUR ---
PATIENT ARRIVED TO ROOM 117, RESTING IN BED AND WATCHING TV. PATIENT IS ON ROOM AIR, MID 90'S O2 SATS. LUNGS ARE DIM THROUGHOUT.
--- NOTE | 2020-04-23 18:43 | NUR ---
PATIENT RESTING IN BED, INDICATED THAT HIS BED WAS MAKING TOO MUCH NOISE. BED EVENTUALLY UNPLUGGED AND PATIENT IS CURRENTLY HAPPY THAT IS IS NOT MAKING NOISE.
--- NOTE | 2020-04-23 19:20 | NUR ---
PT LYING IN BED. SHIFT REPORT RECIEVED BY RN. NO NEEDS AT THIS TIME.
--- NOTE | 2020-04-23 21:15 | NUR ---
PT LYING IN BED. EYES CLOSED. AWOKE TO VOICE. LUNG AND HEART SOUNDS NOT HEARD DUE TO PAPR. NO S/S OF SOB. PT O2 SATS AT 87-92% 1L NC. SCHEDULED MEDS GIVEN. ASSESSMENT COMPLETE. CALL LIGHT IN REACH.
--- NOTE | 2020-04-24 01:13 | NUR ---
PT O2 SAT 77% ON TELE. WENT IN PT ROOM AND FOUND HIM WITH NO OXYGEN IN PLACE. O2 RECONNECTED AT 6L AND O2 SATURATION 94% WITH THE HOB ELEVATED. NO S/S OF SOB. CLEAR AND DIM LUNG SOUNDS. R LOWER LOBE SOME WHEEZING ON EXCERTION. PUDDING GIVEN PER REQUEST. PT O2 SAT 94% 4L NC. WILL CONTINUE TO MONITOR. CALL LIGHT IN REACH. BED ALARM ON FOR SAFETY.
--- NOTE | 2020-04-24 01:23 | NUR ---
PT REFUSED O2 MASK. EDUCATION ON THE USE OF MASK. PT VERBALIZED UNDERSTANDING BUT REFUSED. NC 4L 94% O2 SAT. NO S/S OF SOB. WILL CONTINUE TO MONITOR.
--- NOTE | 2020-04-24 03:00 | NUR ---
PT SYSTOLIC P IN THE HIGH 70'S. RR 24. HOB ELEVATED. 3.5L O2 NOTED WITH 92-94% SATS. PT WAS IN ENCOURAGED OF TAKING FLUIDS. PT VERBALIZED UNDERSTANDING. MD NOTIFIED OF BP AND RR, WILL CONTINUE TO MONITOR.
--- NOTE | 2020-04-24 03:14 | NUR ---
WENT IN PT ROOM DUE TO LOW O2 SAT OF 80'S. PT TOOK OFF 02 NC. EDUCATED PT OF LEAVING IT ON. REPOSITIONED NC. O2 SAT NOW 94% 3.5L NC. CALL NIGHT IN REAC. BED ALARM ON.
--- NOTE | 2020-04-24 03:45 | NUR ---
PT CALLING AGAIN, NEEDED WATER REFILLED, DONE, PT IS SURE HE HAS NO FURHTER NEEDS AT THIS TIME
--- NOTE | 2020-04-24 07:25 | NUR ---
Report from Fozia Hensley RN, and SARI Leggett. Patient sitting up in bed, eyes closed. Remains on O2 per NC, respirations currently even and unlabored, call light in reach. Bed rails up X2.
--- NOTE | 2020-04-24 08:19 | NUR ---
PATIENT CALLS FOR NEB TREATMENT. BREAKFAST ARRIVES WELL. ATTEMPT TO START NEB PER PT REQUEST. STATES HE WOULD RATHER HAVE BREAKFAST BEFORE IT GETS COLD. THIS NURSE IN ROOM, SCANNING MEDICATIONS. PATIENT BEGINS YELLING OUT, WHILE REMOVING LID FROM COFFEE, DUMPS SOME ON LEFT THIGH, GOWN WITH HOT COFFEE QUICKLY REMOVED FROM PATIENT SKIN. REDNESS TO SITE NOTED, COOL RAG APPLIED TO SITE. STATE IT FEELS BETTER. SHEETS CHANGED AND CLEAN GOWN ON PATIENT. EATS BREAKFAST AT THIS TIME. AM MEDICATIONS ADMINISTERED, ASSESSMENT COMPLETED.
--- NOTE | 2020-04-24 10:32 | NUR ---
LYING IN BED. Opens eyes to voice. States he doesn't feel well at all, like he is dying. No changes from AM assessment. Vitals remain WNL. O2 on 3L/min per nasal cannula. Xanax given per patient request with AM medications. Closes eyes to rest again. Call light in reach, bed rails up X2.
--- NOTE | 2020-04-24 11:18 | NUR ---
This nurse in room with patient. Phone rings and patient answers. States it is his Nephew, TJ, and patient states he would like this nurse to discuss his hospital stay with his nephew. Nephew states that when patient is discharge, he and his are willing to assist patient when he is home.
--- NOTE | 2020-04-24 12:49 | NUR ---
Dr. Aguilar in to see patient.
--- NOTE | 2020-04-24 14:43 | NUR ---
Lying in bed, eyes closed. Wakes to voice. Vitals obtained, assessment compelted. Bed rails up X2, Call light in reach.
--- NOTE | 2020-04-24 17:35 | NUR ---
PATIENT SITTING UP AT BEDSIDE TO EAT DINNER. PILLOWS PROPPED BEHIND PATIENT.
--- NOTE | 2020-04-24 18:15 | NUR ---
Patient remains in isolation for positive covid. Remains on O2 per Nasal cannula at 2L/min. Desats once during day when he removes O2. Sits up in chair twice today. Refuses to prone. Remains on telemetry and continuous pulse ox. Last dose of Remdesivir given today.
--- NOTE | 2020-04-24 21:34 | NUR ---
Pt stasnding by side of bed, holding on to bed and computer base. will set up bed alarm, weak gait, Alert and oriented, On 2LNC, slight sob with exertion noted. moist non productive cough present. SL patent, tele #[address], multiple scabbed over and bruises over body L Hand scabb red, scabbed over and healing, . uses urinal, voiding dark yellow urine. small amounts. tolerating fluids well, on regulasr diert, no c/o n/v. Call light at bedside
--- NOTE | 2020-04-24 23:56 | NUR ---
BED ALARM GOING OFF, PT STANDING AT EDGE OF BED, VERY DROWSY, HELPED BACK TO BED, FALL RISK PRECAUTIONS EXPLAINED, STATED UNDERSTANDING, BED ALARM BACK ON. O2 2L NC IN PLACE. CALL LIGHT AT HANDS REACH
--- NOTE | 2020-04-25 01:41 | NUR ---
Awake, standing on edge of bed, bed alarm going off, "I was going to look for crackers and jello". Explained to pt about using call light and fall precautions, stated ' ok i forgot, back to bed after several cues, unsteady gait. impulsive, bed alarm on, fall precautions. jello and crackers given, O2 weaned to 1.5L/CPOX 93%, call light at hands reach
--- NOTE | 2020-04-25 03:39 | NUR ---
Tele#1 sinus brida/afib. pulse down to 34, asymptomatic, pt was sleeping soundly, awakens easily, denies cp or sob. CPOX 94% at 1.5L O2 .Goes back to sleep, call lihgt at bedside, Bed alarm on
--- NOTE | 2020-04-25 04:03 | NUR ---
Awake, c/o 3/10 back and legs pain, medicated with tylenol 650mg po. O2 94% on 1.5L, decreased 1LNC, denies sob, turns self in bed,m using urinal, tolerating regular snacks and fluids. Bed alarm on.
--- NOTE | 2020-04-25 04:25 | NUR ---
bed alarm going off, pt standing at edge of bed, back to bed, O2 93% on 1L nc, decreaed to 0.5L. sats 92% at this time. Jello, crackers and fresh ice water given. voided small amount of dark urine. Bed alrm on and pt reminded touse call light to prevent a fall. R eye noted to have red conjuctiva and scant amont of clear eye drainage
--- NOTE | 2020-04-25 06:04 | NUR ---
Pt continoues on aerosol/covid+ precaution. Impulsive, at times, anxious, easily redirectable. will be medicated with Xanax at this time per c/o increawsed anxiety. Has slept off and on. Bed alarm on for high risk fall precautions, does not use call light. stands on edge of bed and grabs on to bed and wall to walk to br/chair or around bed, unsteady gait gait noted, Not follosing instructions to call prior to getting up. Has been given snacks multiple times, tolerating well. voided QS uses urinal,. Was medicated with Tylenol 2X per back and leg pain, effective. Has been weaned off to room air at this time, was on 2LNC at begining of shift, lungs dim, sats 91-95%. no sob noted at this time. no n/v.
--- NOTE | 2020-04-25 07:02 | NUR ---
WAS IS PT RM APPROX 20MINS TO SIT WITH PT, PT C/O ANXOUSNESS, SOB, HAD PT DANGLE AT BEDSIDE, PT STARTING TO FEEL BETTER AT THIS TIME, GOT PT TO LAY BACK DOWN, PT STATES HE DOESNT KNOW IF HE HAS ANY OTHER NEEDS, PT IS DOZZING OFF, OUT OF RM TO DOFF PPE
--- NOTE | 2020-04-25 07:14 | NUR ---
Report from Mireille Kulkarni RN. Patient lying in bed. Bed rails up X2, call light in reach.
--- NOTE | 2020-04-25 08:25 | NUR ---
This nurse walks by patient room. Bed alarm sounding, patient ambulating by self in room. Bed is elevated slightly above patient's hip level. This nurse informs patient to please await staff arrival into room. Continues to ambulate. Aide watches patient while this nurse dresses in PAPR to enter room. Patient sits on 4 wheeled walker. This nurse enters room and instructs patient of importance of calling staff to be safe and help to prevent him from falling. States "I don't know what to do, I'm just going to lay in bed and ." Long talk with patient regarding safety needs and improvement of condition at this time. Also informed PT will be in to work with him today to begin building his strength. Assist into recliner. Feet elevated, warm blankets provided, fresh water provided and coffee provided. Call light in reach. Patient instructed to please call when he is ready to return to bed. Verblizes understanding. Assessment completed.
--- NOTE | 2020-04-25 09:12 | NUR ---
DISCUSSED PLAN OF CARE WITH IN AM MEETING. GAVE VERBAL ORDER FOR P.T. EVALUATION AND HOME OXYGEN QUALIFIER. ORDERS PLACED.
--- NOTE | 2020-04-25 10:23 | NUR ---
AM medication administered as prescribed. Takes without difficulty. Currently lying in bed, transferred with PT assistance. Requests Tylenol for generalized discomfort. Denies other needs at this time. Call light in reach, bed rails up X2.
--- NOTE | 2020-04-25 12:45 | NUR ---
Sitting on edge of bed. Lunch tray provided. Medication given as prescribed. Denies other needs at this time. States Dr. Aguilar informed him, he will be discharged home tomorrow.
--- NOTE | 2020-04-25 15:28 | NUR ---
WENT IN AND DID HIS VITALS AND I&O. ASKED HIM WHAT HE WOULD LIKE FOR DINNER AND HE SAID HE DIDN'T KNOW. SO IF HE DOESN'T CALL DOWN HIS DINNER ODERED THEY ARE GOING TO MAKE HIM AN OPEN FACE ROASTBEEF SANDWICH.
--- NOTE | 2020-04-25 17:06 | NUR ---
SITTING IN BED, WATCHING TV. STATES HE WOULD LIKE MAGNESIUM TABLETS, 2-3, SO HE MAY HAVE A BOWEL MOVEMENT SINCE THE MIRALAX HAS HAD NO EFFECT. VITALS OBTAINED. REMAINS ON ROOM AIR. SATS HAVE BEEN GREATER THAN 92%. REMAINS ALERT AND ORIENTED.
--- NOTE | 2020-04-25 18:12 | NUR ---
Alert and oriented, remains weak with PT treatment initiated today. Continues on room air with O2 saturation greater than 92%. Up in chair for meals. Uses walker to ambulate.
--- NOTE | 2020-04-25 19:56 | NUR ---
Walking in room, holding on to bed and wall, on room air, dim lung sounds, tele#[address], Iregular. no sob, no cp. uses urinal. voiding small amounts of yellow urine. c/o insomnia and Ambien given on requests, Back to bed at this time with minimum of assist. Demanding to have Miralax tonight instead of in am "It work better, I am going home in am anyways, it dfoes not matter if I take it in the morning or tonight, I want it tonight." to be notified. IV abx infusing. sl patent .call light and lfuids at bedside, jello, crackers and juice given, Tessalon perles given at this time too c/o moist cough. In bed HOB eklevated, watching TV. Continous on Aerosol, +covid+ Isolation precautions. BSC placed at foot of bed, pt instructed to call for assist, stated understanding
--- NOTE | 2020-04-25 23:10 | NUR ---
RESTING, EYES CLOSED, TELE#[address] AFIB RHYTHM WITH MULTIFORM PVC'S AND A DENIES CP. AWAKES EASILY, HEAD AND NECK REPOSITIONED, SATS 88-92% ON ROOM AIR,
--- NOTE | 2020-04-25 23:35 | NUR ---
PT CALLED, C/O OF GERD, THIS NURSE WENT UP THERE AND PT HAS ANGRY, "I NEED OMEPRAZONE, INTRUCTED THAT HE HAS NO ORDER FOR OMEPRAZOLE, "WHAT? DO YOU THINK i DO NOT NEED ANYTHING", GOT MORE UPSET. PT HAS NO ORDERS FOR OMEPRAZOLE OR ANTIEMETIC MEDS AT THIS TIME. ON ROOM AIR, RESP 24, SATS 91%. DR GONZALES NOTIFIED OF PTS C/O TO CHARGE NURSE EARLIER AND TO ME ABOUT UPSET STOMACH AT THIS TIME. STATES THAT HE WILL ORDER SOMETHING.
--- NOTE | 2020-04-25 23:53 | NUR ---
lasix iv and omeprazole. R 24, lungs w/o changes from earlier. med education on above done, "I ve taken Lasix before, and i take Omeprazome for gerd when i need it," states pt. Very concerned about going home, " said I needed to go to an adult foster home, I refused, I just need to saty a couple days more, but said she was going to send me home, I dont want to go home yet, she said she was going to revoke my drivers license, I told her she is going to make a criminal out of me, as All going to keep on driving, I dont want to go home, I need a few more days here and then ill be ready to go home". Reassured, calmer, using urinal, reposions self in bed and gets to edge of bed "All just going to sit down here" Back to bed after a few minutes"
--- NOTE | 2020-04-26 00:04 | NUR ---
calmer, went to sleep while talking to this nurse, hob elevated, on room air. uses urinal, call light and fluids at bedside. Denies needing a neb tx. at this time
--- NOTE | 2020-04-26 00:47 | NUR ---
0020: Sats down to 85-90% O2 on at 0.5L/nc, R28 sitting edge of bed, upset mood "now im not going to be able to go back to sleep, im just going to be peeing up all night long." 0045: sats dropped to 87-89%, O2 1L nc, pt sitting edge of bed dozing off, had used urinal . Reposioned back to bed, " I need to pee again stated, still upet over having had Lasix". Rsp 20 when resting, 28 at this time. tele in place.
--- NOTE | 2020-04-26 04:49 | NUR ---
pt continues on isolation precautions, aerosol precautions. was on room air, c/o feeling sob, lungs dim t/o. sats 85-92, placed on 0.5l nc. continues to c/o and sats between 97-90%, placed on 1L o2. currently weaned down to 0.5L o2, tolerating well, sats 95%, no further c/o sob. Received order for lasisx , no changes in lung sounds, got order for med for upset stomach, effective. Has been medicated iwth Tylenol x1 per c/o back and leg pain and Xanax per increased anxiety. resatless in room, declines to use face shield. tolerating diet well, has walked around bed w/o call ing rn and room and back to bed, but got tangled in O2 tubing/bed. walked to br, passes large amount of gas, no bm. Received Miralasx per his demands. not effective. Pt upset over possible dc to home today. reassured with some effectiveness.
--- NOTE | 2020-04-26 04:58 | NUR ---
pt continues on isolation precautions, aerosol precautions. was on room air, c/o feeling sob, lungs dim t/o. sats 85-92, placed on 0.5l nc. continues to c/o and sats between 97-90%, placed on 1L o2. currently weaned down to 0.5L o2, tolerating well, sats 95%, no further c/o sob. Received order for lasisx , no changes in lung sounds, got order for med for upset stomach, effective. Has been medicated iwth Tylenol x1 per c/o back and leg pain and Xanax per increased anxiety. resatless in room, declines to use face shield. tolerating diet well, has walked around bed w/o call ing rn and room and back to bed, bu got tangled in O2 tubing/bed. walked to br, passes large amount of gas, no bm Received Miralasx per his demands. not effective. Pt upset over possible dc to home today. reassured with some effectiveness.
--- NOTE | 2020-04-26 07:52 | NUR ---
REPORT RECIEVED. PT IN ROOM. TELE [address] SATURAITONS AT 94% ON 1L NC. HR 55. CALL LIGHT IN REACH.
--- NOTE | 2020-04-26 09:34 | NUR ---
PATIENT UP TO BATHROOM AND BACK TO BED, SBA FWW. PATIENT GOT IRRITATED WHEN I ASKED HIM IF HE WANTED A SHOWER, HE SAID HE COULDN'T BELEIVE WE WERE ASKING HIM TO SHOWER WHEN HE DOESN'T FEEL GOOD, RN NOTIFIED. LINENS CHANGED. CALL LIGHT IN REACH. NO FURTHER NEEDS AT THIS TIME.
--- NOTE | 2020-04-26 09:40 | NUR ---
RECEIVED CALL FROM BEBE NASIRPratik WANG [phone]. HE STATES HE IS OUT OF TOWN AND WILL BE BACK AND ABLE TO HELP PATIENT AT HOME TOMORROW. HE IS WORRIED HE MIGHT BE DISCHARGED TODAY AND NO ONE CAN BE THERE. HE STATES IF HE GOES TOMORROW ROBBY MORRIS CAN GIVE HIM A RIDE HOME AND HE WILL COME AND HELP HIM LATER. DISCUSSED THAT DR GONZALES WILL HAVE TO MAKE ROUNDS BEFORE A DECISION IS MADE. DISCUSSED THAT WE WOULD LIKE SOMEONE TO BE THERE TO HELP PATIENT HE IS VERY WEAK, BUT INSISTS ON GOING HOME AT DISCHARGE. QUESTIONS ANSWERED.
--- NOTE | 2020-04-26 10:21 | NUR ---
ASSESSMENT COMPLETED. PT REPORTS FEELING NOT WELL ENOUGH TO GO HOME. FEELS VERY DECONDITIONED FROM THIS SICKNESS. REPORTS ACHING PAIN IN BILAT LE. TYLENOL ADMINSTERED. LUNDS TIGHT AND DIM. PT WITH RR OF 24 AT REST. REPORTS FEELING SOB. RT TO BE CALLED FRO BREATHING TREATMENT. NO CRACKLES HEARD. HEART SOUND IRREGULAR AND DISTANT. PT REPORTS NO BM IN 5 DAYS. REFUSED MAG CITRATE D/T TASTE BUT TOOK SUPPOSITORY. ALSO REPORTS ABDOMINAL TENDERNESS D/T NO BM. IV WORKING WELL. PILLS GAVE IN APPLE SAUCE TO HELP WITH SWALLOWING. PT FEELS VERY WEAK TODAY. REPORTS NOT SLEEPING WELL AND REQUESTING INCREASE IN SLEEPING MEDICATIONS. WILL RELAY THAT TOO THE DOCTOR.
--- NOTE | 2020-04-26 10:40 | NUR ---
SPOKE WITH PATIENT BY PHONE. STATES HE IS "SO SICK" WHEN PRESSED ON WHAT IS GOING ON HE STATES HE HASN'T "POOPED IN 5 DAYS" AND "I AM WEAK A KITTEN". PATIENT STATES THEY ARE NOT ORDERING WHAT HE NORMALL TAKES FOR CONSTIPATION WHICH HE SUFFERS FROM CHRONICALLY. HE STATES THEY GAVE HIM MAG CITRATE TO DRINK AND HE "GETS SICK FROM THAT". HE WANTS MAG CITRATE TABS 500MG THREE TABS A DAY LIKE HE TAKES AT HOME. DISCUSSED I WILL TRY TO TALK WITH DR GONZALES. DISCUSSED THAT NEPHEW CALLED AND CAN HELP HIM AT HOME AFTER TOMORROW. HE STATES "NO ONE CAN COME OVER BECAUSE OF THE COVID". DISCUSSED THAT HE SHOULD BE PAST QUARATINE AT THIS POINT, BUT WILL CHECK WITH INFECTIOUS DISEASE NURSE REGARDING THIS. FIRST COVID POSITIVE TEST WAS Mar. AGAIN ASKED PATIENT IF HE WOULD CONSIDER A FACILITY STAY, HE AGAIN STATES "ABSOLUTELY NOT". CM WILL CONTINUE TO FOLLOW.
--- NOTE | 2020-04-26 10:50 | NUR ---
[facility]ER[facility] CALLED PER PATIENT REQUEST FOR BREATHING TREATMENT.
--- NOTE | 2020-04-26 12:57 | NUR ---
PATIENT SITTING AT SIDE OF BED WITH LUNCH. PATIENT REFUSING TO DRINK ENSURE. ORDERED VERY LIGHT LUNCH.
--- NOTE | 2020-04-26 13:50 | NUR ---
PATIENT WITH NO BM FOR [address] GONZALES NOTIFIED. LACTULOSE ADMINSTERED. TESSALON PERLES FOR COUGH GIVEN. PT SITTING IN BED ON RA. TELE DC'D PER ORDER. VITALS TAKEN AND STABLE. PT REFUSING MEAL REPLACEMENT AND NOT EATING MEALS. REPORTS ONCE HE HAS A BOWEL MOVEMENT HE WILL EAT MORE.
--- NOTE | 2020-04-26 15:39 | NUR ---
TOOK MEDICARE PAPERWORK FROM PATIENT THAT HE LEFT WITH NURSES OVER WEEKEND TO [place] AND MET HIS FRIEND RENATE WHO IS HELPING HIM WITH CHANGING HIS MEDICARE INSURANCE FOR NEXT YEAR. SPOKE WITH INFECTION CONTROL NURSE BELLE WHO STATES HE SHOULD OBSERVE QUARANTINE UNTIL Apr DUE TO HIS GRAVITY OF ILLNESS AND GUIDELINES. DISCUSSED THIS WITH DR GONZALES. CONCERN IS PATIENT LIVES ALONE AND LONG HE IS IN QUARANTINE, FRIENDS/FAMILY CANNOT COME INTO THE HOME TO HELP HIM IF HE DISCHARGES.
--- NOTE | 2020-04-26 16:04 | NUR ---
PT REPORTING ANXIETY. PRN MEDICAITON GIVEN. SECONG LACTULOSE GIVEN.
--- NOTE | 2020-04-26 18:30 | NUR ---
DR GONZALES IN TO ROUND. POC DISCUSSED. ENEMA ORDERED AND COMPLETED WITH GOOD RESULTS. PT FEELS RELEIF AFTER LARGE BOWL MOVEMENT. SITTING UP IN CHAIR NOW FOR DINNER. PO FLUIDS ENCOURAGED. LINENS CHANGED. VITALS COMPLETED AND WNL. CALL LIGHT IN REACH. PT DENIES FURTHER NEEDS.
--- NOTE | 2020-04-26 19:00 | NUR ---
PT LYING IN BED. SHIFT REPORT RECIEVED BY RN. CALL LIGHT IN REACH.
--- NOTE | 2020-04-26 22:00 | NUR ---
PT LYING IN BED. SCHEDULED MEDS GIVEN. ASSESSMENT COMPLETE. VS STABLE.NO S/S OF SOB. RR WNL WITH UNLABORED BREATHING. LUNG AND HEART SOUNDS NOT HEARD DUE TO PAPR. PT REPOSITIONED IN BED. I AND O'S COMPLETE. CALL LIGHT IN REACH.
--- NOTE | 2020-04-26 23:39 | NUR ---
ROUNDED ON PT. JELLO AND CRACKERS GIVEN PER REQUEST. NO S/S OF SOB. RR WNL WITH UNLABORED BREATHING. CALL LIGHT IN REACH.
--- NOTE | 2020-04-27 00:56 | NUR ---
PT LYING IN BED. EYES CLOSED. RR WNL WITH UNLABORED BREATHING. CALL LIGHT IN REACH.
--- NOTE | 2020-04-27 03:28 | NUR ---
PT LYING IN BED. EYES CLOSED. RR WNL WITH UNLABORED BREATHING.CALL LIGHT IN REACH.
--- NOTE | 2020-04-27 05:18 | NUR ---
PT LYING IN BED. VS STABLE. O2 SAT 95% RA. HR 47-61. ASSESSMENT COMPLETE. LUNG SOUNDS CLEAR AND DIM. NO S/S OF SOB. RR WNL WITH UNLABORED BREATHING. CALL LIGHT IN REACH.
--- NOTE | 2020-04-27 07:34 | NUR ---
REPORT RECIEVED. PT VISULIZED THROUGH DOOR. RESPIRAITONS EQUAL AND NONLABORED. PT LYING ON RIGHT SIDE WITH EYES CLOSED. CALL LIGHT IN REACH.
--- NOTE | 2020-04-27 09:45 | NUR ---
ASSESSMENT COMPLETED. PT ATE MOST OF HIS BREAKFAST. LUNGS CLEAR. DENIES PAIN. REQUESTING TESSALON PERLES. VITALS STABLE. OCCUPATIONAL THERAPY IN TO TRY AND WORK WITH PT.
--- NOTE | 2020-04-27 10:12 | NUR ---
PATIENT IN BED RESTING WITH EYES CLOSED. PATIENT REFUSED SHOWER AND WAS NOT HAPPY WHEN OT CAME IN TO WORK WITH PATIENT ON AM CARE AND GETTING DRESSED. CALL LIGHT IN REACH. NO FURTHER NEEDS AT THIS TIME.
--- NOTE | 2020-04-27 11:45 | NUR ---
Waved at Carlos through his door. He is sitting on the edge of his bed eating. He remains on isolation. Plan for dc on the . Received a call from Fritz and updated, pt is on isolation until the and cannot safely discharge until the as he will not have anyone to help him until he is off isolation.
--- NOTE | 2020-04-27 12:40 | NUR ---
PT REPORTING ANXIETY. PRN MED GIVEN.
--- NOTE | 2020-04-27 13:39 | NUR ---
PT UNDER PRECAUTIONS, WILL TRY AND VISIT BY PHONE TODAY
--- NOTE | 2020-04-27 14:24 | NUR ---
PT SLEEPING, SARI LEE REQUESTED I LET PT SLEEP AND NOT CALL HIM AT THIS TIME. WILL FOLLOW AND TRY AGAIN
--- NOTE | 2020-04-27 14:54 | NUR ---
PATIENT SITTING UP ON EDGE OF BED. ASKED PATIENT AGAIN IF HE WOULD TAKE A SHOWER OR EVEN USE WARM BATH WIPES AND HE REFUSED. FRESH WATER GIVEN. CALL LIGHT IN REACH. NO FURTHER NEEDS AT THIS TIME. MADE SURE ORAL CARE SUPPLIES WERE AVALIABLE FOR PATIENT.
--- NOTE | 2020-04-27 15:19 | NUR ---
SUMMER BABYSITTER REPORTED PT FEELING ANXIOUS AND CLAUSTROPHOBIC. REPORTING THE APRAZOLAM WAS NOT ENOUGH. THIS NURSE TO CHECK ON PT. PT FOUND LYING IN BED WITH RESPITORY RATE EQUAL AND NONLABORED WITH EYES CLOSED. VITALS STABLE. DR GONZALES NOTIFIED. NO ORDERS FOR INCREASE IN DOSE OR NEW MEDICAIOTNS FOR ANXIETY.
--- NOTE | 2020-04-27 17:00 | NUR ---
PT GOT SONS NUMBER AND IS FEELING BETTER ABOUT HIS BILLS BEING PAID. SITTING AT SIDE OF BED EATING DINNER NOW. DENIES NEEDS.
--- NOTE | 2020-04-27 18:49 | NUR ---
PATIENT SITTING IN CHAIR WATCHING TV. WARM BLANKET GIVEN. CALL LIGHT IN REACH. NO FURTHER NEEDS AT THIS TIME.
--- NOTE | 2020-04-27 19:20 | NUR ---
PT LYING IN BED. SHIFT REPORT RECEIVED BY RN. CALL LIGHT IN REACH.
--- NOTE | 2020-04-27 20:22 | NUR ---
PT LYING IN BED. VS STABLE. O2 SAT 95% RA. NO S/S OF SOB. ASSESSMENT COMPLETE. LUNG SOUNDS CLEAR AND DIMINISHED. I AND O'S COMPLETE. PRN PAIN MEDS GIVEN PER REQUEST. CALL LIGHT IN REACH.
--- NOTE | 2020-04-27 20:30 | NUR ---
CALL IN TO DR GONZALES RE: SYSTOLIC BP WITH SCHEDULED MEDS. BP 105/65 P 53-67 AND PT IS SCHEDULED FOR DILTIAZEM, ATENOLOL AND HAS REQUESTED AMBIEN AND ALPRAZOLAM. PT HAS HAD PREVIOUS EPISODES WHERE AFTER EVENING MEDS ADMINISTRATION WITH LOW SYSTOLIC BP, PT HAS A FURTHER DROP IN SYSOLIC BP. OK PER DR GONZALES TO ADMINISTER EVENING MEDS. WILL CONTINUE TO MONITOR PT.
--- NOTE | 2020-04-27 23:02 | NUR ---
PT LYING IN BED. RR WNL WITH UNLABORED BREATHING. NO S/S OF SOB. CALL LIGHT IN REACH.
--- NOTE | 2020-04-28 01:07 | NUR ---
PT LYING IN BED. EYES CLOSED. RR WNL WITH UNLABORED BREATHING. NO S/S OF SOB. CALL LIGHT IN REACH.
--- NOTE | 2020-04-28 01:48 | NUR ---
PT LYING IN BED. EYES CLOSED. RR WNL WITH UNLABORED BREATHING. NO S/S OF SOB. CALL LIGHT IN REACH.
--- NOTE | 2020-04-28 04:15 | NUR ---
PT LYING IN BED. EYES CLOSED. RR WNL WITH UNLABORED BREATHING. NO S/S OF SOB. CALL LIGHT IN REACH.
--- NOTE | 2020-04-28 05:19 | NUR ---
PT SITTING UP IN BED. COFFEE GIVEN PER REQUEST. VS STABLE. ASSESSMENT COMPLETE. I AND O'S DONE. PT STATES " I SLEPT GOOD LAST NIGHT." O2 SAT 94% RA. LUNG SOUNDS DIMINISHED. CALL LIGHT IN REACH.
--- NOTE | 2020-04-28 07:41 | NUR ---
THIS RN RECIEVED REPORT FROM DONY GUO. PT SITTING IN BED. PT IN ISO ROOM.
--- NOTE | 2020-04-28 09:00 | NUR ---
THIS RN IN PTS ROOM TO GET PTS VITALS, I&OS, GIVE MORNING MEDS AND DO MORNING ASSESSMENT. PT STATES THAT HE THINKS HE HAS BEEN "COUGHING UP BLOOD" THIS RN INSPECTED PTS SPUTUM AND IT APPEARED TO BE THIS BROWN SPUTUM.
--- NOTE | 2020-04-28 12:10 | NUR ---
THIS RN IN PTS ROOM TO GIVE PT HIS LACTULOSE AND MAG. PT SITTING ON THE EDGE OF THE BED AND APPEARS TO BE DOING WELL. PT STATED THAT HE IS STILL COUGHING BUT NO SPUTUM NOTED AT THIS TIME.
--- NOTE | 2020-04-28 14:10 | NUR ---
THIS RN PASSED PT HIS LACTULOSE THROUGH THE DOOR. PT ABLE TO COME TO DOOR AND GET MEDS. PT ALSO ASKING FOR ICE WATER. THIS RN PASSED THE WATER CUP TO PT THROUGH THE DOOR.
--- NOTE | 2020-04-28 14:37 | NUR ---
PATIENT AWAKE IN BED, VITALS AND I&OS CHARTED. PATIENT BECAME EMOTIONAL WHILE TALKING ABOUT HIS LATE WHO HE LOST ABOUT 5 YEARS AGO. PATIENT SHARING SEVERAL STORIES ABOUT FRIENDS AND FAMILY WITH THIS OCEAN LIFEGUARD. CALL LIGHT IN REACH, NO OTHER NEEDS AT THIS TIME
--- NOTE | 2020-04-28 15:39 | NUR ---
THIS RN TO CHECK ON PT THROUGH THE DOOR DUE TO RECEIVING REPORT FROM VICKY OBANDO THAT PT WAS EMOTIONAL WHILE TALKING ABOUT HIS . WHEN THIS RN CHECKED ON HIM PT APPEARED TO BE RESTING COMFORTABLY AT THIS TIME.
--- NOTE | 2020-04-28 15:55 | NUR ---
No change in plan for dc.
--- NOTE | 2020-04-28 17:30 | NUR ---
THIS RN IN TO CHECK ON PT. THIS RN OFFERED PT SOME APRALOZAM. PT STATED HE THINKS THAT IT WOULD BE A GOOD IDEA. THIS RN ABLE TO PASS THE MED TO PT TROUGH THE DOOR. PT STATES THAT HE ALSO GOT UP AND AMBULATED IN THE ROOM (WALKING IN A YOMBA SHOSHONE) PT STATES THAT HE THINKS THIS HELPS HIM TO HAVE A BM.
--- NOTE | 2020-04-28 18:15 | NUR ---
VITALS AND I&OS CHARTED. GARBAGE EMPTIED, FRESH ICE WATER PROVIDED, DINNER DELIVERED, PATIENT SITTING AT SIDE OF BED EATING.CALL LIGHT IN REACH
--- NOTE | 2020-04-28 19:20 | NUR ---
REPORT RECEIVED FROM CLAYTON RN, PATIENT UP TO BR TO VOID, INDEPENDENT IN ROOM. BACK TO BED WITH WALKER, NO OTHER NEEDS AT THIS TIME. CALL LIGHT IN REACH.
--- NOTE | 2020-04-28 20:34 | NUR ---
MEDICATIONS ADMINISTERED ALONG WITH PRNS FOR SLEEP & LEG PAIN. PT UP TO BR TO VOID, STATES 4 LOOSE STOOLS AND DECLINES TO TAKE BOWEL MEDICATIONS FOR THIS REASON. VITALS AND I/O'S COMPLETE, ASSESSMENT COMPLETE. LUNG SOUNDS CLEAR, HRR, BOWEL TONES ACTIVE. IV FLUSHED WNL. INDEPENDENT IN ROOM. WATER REFRESHED. CALL LIGHT IN REACH, NO FURTHER NEEDS AT THIS TIME.
--- NOTE | 2020-04-28 22:15 | NUR ---
CALL LIGHT ANSWERED, PT REQUESTS LIGHTS OFF, ASSISTED WITH THIS. NO OTHER NEEDS. WILL CONT TO MONITOR.
--- NOTE | 2020-04-28 23:20 | NUR ---
CALL LIGHT ANSWERED, PT REQUESTS WATER AND LIGHTS ADJUSTED. NO OTHER NEEDS AT THIS TIME. WILL CONT TO MONITOR.
--- NOTE | 2020-04-29 00:50 | NUR ---
ROUNDED ON PATIENT, SITTING UP IN BED WITH LIGHTS ON, ON ROOM AIR, JUICE AND WATER AT BEDSIDE, CALL LIGHT IN REACH. WILL CONT TO MONITOR.
--- NOTE | 2020-04-29 02:21 | NUR ---
ROUNDED ON PATIENT, IN BED WITH EYES CLOSED, LIGHTS OFF. NO APPARENT NEEDS, DID NOT DISTURB AT THIS TIME. CALL LIGHT IN REACH.
--- NOTE | 2020-04-29 03:15 | NUR ---
CALL LIGHT ANSWERED, PT REQUESTS WATER, JELLO AND CRACKERS. ASSESSMENT COMPLETE. PT STATES LOOSE BOWELS HAVE STOPPED, DENIES PAIN OR SOB. NO FURTHER NEEDS REPORTED. CALL LIGHT IN REACH. WILL CONT TO MONITOR
--- NOTE | 2020-04-29 06:20 | NUR ---
GISELLA ARROYOINE IN ROOM TO TAKE VITALS AND I/O'S.
--- NOTE | 2020-04-29 07:36 | NUR ---
0720: Report received from Caitlin GUO. Pt resting at the bedside with his call monique within reach.
--- NOTE | 2020-04-29 09:57 | NUR ---
PT RESTING AT THE BEDSIDE AND HE STATES HE HAS NO SOB, "JUST SOME CONGESTION". LUNGS ARE CLEAR WITH DECREASED BASES AND SAT IS IN THE 90'S ON ROOM AIR. HE DOES COMPLAIN OF SOME ANXIETY, SEE EMAR. PT DENIES ANY OTHER NEW PROBLEMS OTHER THAN HIS BREAKFAST WAS COLD. SEE ASSESSMENT.
--- NOTE | 2020-04-29 11:09 | NUR ---
Pt resting in his chair watching tv and he denies any needs at this time.
[2020-04-29] MEDS ORDERED: DOXYCYCLINE HY100 MG PO (11:54)
[2020-04-29] MEDS ORDERED: LACTULOSE20 GM/30 M PO (11:55)
[2020-04-29] MEDS ORDERED: BENZONATATE100 MG PO (11:56)
--- NOTE | 2020-04-29 13:19 | NUR ---
PT SITTING AT THE BEDSIDE AND HE DENIES ANY SOB OR TROUBLE BREATHING. NO COUGH NOTED, LUNGS DECREASED IN THE BASES AND CLEAR. SEE ASSESSMENT.
--- NOTE | 2020-04-29 14:23 | NUR ---
PT UNDER RESTRICTIONS, ASLEEP DID NOT DISTURB
--- NOTE | 2020-04-29 18:45 | NUR ---
Pt resting in his bed with no complaints or needs at this time.
--- NOTE | 2020-04-29 18:48 | NUR ---
No change in plan for dc.
--- NOTE | 2020-04-29 19:20 | NUR ---
SHIFT REPORT RECEIVED FROM VIRGIE GUO. PT IN BED, WATCHING TV. NO NEEDS AT THIS TIME. CALL LIGHT IN REACH.
--- NOTE | 2020-04-29 22:00 | NUR ---
PT ASSESSMENT, VS AND I&O COMPLETED. GCS 15, A&O X4. LUNGS CLEAR, HEART TONES REGULAR. ABD SOFT, NONTENDER. BOWEL TONES ACTIVE. CMS INTACT. PT DENIES SOB WITH ACTIVITY. IV WNL, CDI, FLUSHED WELL. SCHEDULED MEDS PROVIDED. NO OTHER NEEDS AT THIS TIME. CALL LIGHT IN REACH.
--- NOTE | 2020-04-29 23:31 | NUR ---
PT RESTING IN BED, EYES CLOSED. RR EVEN, UNLABORED. CALL LIGHT IN REACH.
--- NOTE | 2020-04-30 01:30 | NUR ---
PT RESTING IN BED, EYES CLOSED. RR EVEN, UNLABORED. CALL LIGHT IN REACH.
--- NOTE | 2020-04-30 02:36 | NUR ---
PT CALLED TO GET WATER, PROVIDED, PT NOW ASKING ABOUT GETTING A SLEEPING PILL, WILL INFORM THE RN, NO OTHER NEEDS AT THIS TIME
--- NOTE | 2020-04-30 03:52 | NUR ---
PT RESTING IN BED, EYES CLOSED. RR EVEN, UNLABORED. CALL LIGHT IN REACH.
--- NOTE | 2020-04-30 06:39 | NUR ---
ASSESSMENT, VS AND I&O COMPLETED. COFFEE PROVIDED. GCS 15, A&O X4. LUNGS CLEAR, HEART TONES REGULAR. ABD SOFT, NONTENDER, BOWEL TONES ACTIVE. CMS INTACT. NO OTHER NEEDS AT THIS TIME. CALL LIGHT IN REACH.
--- NOTE | 2020-04-30 07:51 | NUR ---
0720: Report received from Joanne GUO. Pt sleeping, call monique within reach.
--- NOTE | 2020-04-30 10:04 | NUR ---
PT DENIES ANY SOB OR OTHER PROBLEMS AT THIS TIME. SEE ASSESSMENT. PT GETTING READY FOR PLANNED DC. VSS.
--- NOTE | 2020-04-30 10:50 | NUR ---
Requested by staff to call son, as pt is very anxious and was walking in the [place]. He was returned to his room by Dr. Dubon. Called son and he states he is on his way and will be here shortly.
--- NOTE | 2020-04-30 11:14 | NUR ---
1105: I went to the pt's room to discharge him and he is no longer in his room. nutrition technician and the pt's PCP was notified that he is no longer in his room. The pt's son was called by Cuca GUO and he states that he picked him up.
--- NOTE | 2020-04-30 11:15 | NUR ---
Notified by staff, they are unable to find pt. They believe he left from the back door. Called son and pt was leaving the hospital when he arrived, he picked him up and took him home. He states they are safe and sound. Staff notified.
== END 2020-04-30 11:05 | disposition home or self-care (01) | DRG 177 ==
LOC: ED 16:03 → CCU 19:59 → MS 19:59
PROVIDERS: ADMIT Internal Medicine; ATTEND Internal Medicine
PROC: XW033E5 Introduction of Remdesivir Anti-infective into Peripheral Vein, Percutaneous Approach, New Technology Group 5 (ICD-10-PCS; principal; 2020-04-20)
DX: U07.1 COVID-19 (principal); J12.89 Other viral pneumonia; J96.01 Acute respiratory failure with hypoxia; J15.212 Pneumonia due to Methicillin resistant Staphylococcus aureus; I50.32 Chronic diastolic (congestive) heart failure; I48.21 Permanent atrial fibrillation; J44.0 Chronic obstructive pulmonary disease with (acute) lower respiratory infection; E78.5 Hyperlipidemia, unspecified; K21.9 Gastro-esophageal reflux disease without esophagitis; F32.9 Major depressive disorder, single episode, unspecified; F41.9 Anxiety disorder, unspecified; E87.6 Hypokalemia; K59.09 Other constipation; Z95.5 Presence of coronary angioplasty implant and graft; Z87.891 Personal history of nicotine dependence; Z88.8 Allergy status to other drugs, medicaments and biological substances; Z79.899 Other long term (current) 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; Z79.82 Long term (current) use of aspirin
CPT/HCPCS: 36600; 71045; 71260; 80048; 80053; 80076; 81001; 82803; 83735; 83880; 84484; 85025; 93005; 93010; 94640; 94760; 94761; 97110; 97116; 97162; 97165; 99285-25; C9803; J1650; J1940; J1956; J7030; J7050; Q9967; U0003

== ENCOUNTER 2020-11-09 00:35 | Inpatient (IN) | payer MEDICARE ==
[~2020-11-09] VITALS: Ht 175.3 cm; Wt 68.8 kg
[~2020-11-09 00:35] MED LIST changes: +BENZONATATE100 MG PO; +DOXYCYCLINE HY100 MG PO
--- OUTSIDE RECORDS SUMMARY | 2020-11-09 01:13 | XMS ---
PreManage Notification: EDSON HURST Security Registered Nurse Maternity Events 2 event(s) in the past 18 months Most recent security events: Elopement at [facility] 04/19/2020 13:00 - Other Details: PATIENT LWBS. Elopement at [facility] 11/25/2019 20:37 - Other Details: PATIENT LWBS. CRITERIA MET - [facility] - Has Care Guidelines - Group Notification - PDMP CARE PROVIDERS ROSA ENNIS Physician Private Advisor 05/31/2018-Current PHONE: Unknown Jose F has no Care Guidelines for this patient. Care History Medical/Surgical 11/26/2019 [facility] - CHW CONTACTED PATIENT- PATIENT WOULD LIKE HELP WITH GETTING AN APT IN REGARDS TO HIS CHRONIC CONSTIPATION. - CHW CONTACTED DR JIMENEZ OFFICE-SCHEDULED AN APT 01/05/20 @ 9:20AM EARLIEST APT. THEY DID PUT PATIENT ON THE WAIT LIST FOR CANCELLATIONS. - CHW CONTACTED PCP DR ENNIS-DISCUSSED A POSSIBLE REFERRAL TO A [facility]. - CHW LEFT A MESSAGE WITH SURESH COX AT [facility] -RESPIRATORY THERAPIST-PULMONARY REHAB. - SARI GÓMEZ-HOSTAGE NEGOTIATOR HAS EDUCATED PATIENT ABOUT PAIN MEDICATION AND CONSTIPATION 08/26/2019 [facility] Left message with [facility] medicine requesting LAMA and ICS be added to patient\T\#39;s care plan. E.D. VISIT COUNT (12 MO.) [address] [facility] TOTAL 9 NOTE: Visits indicate total known visits. ED/UCC VISIT TRACKING (12 MO.) 11/09/2020 00:36 [facility] TYPE: Emergency COMPLAINT: - SOB 04/20/2020 16:04 [facility] TYPE: Emergency COMPLAINT: - SOB 04/19/2020 13:00 [facility] TYPE: Emergency COMPLAINT: - WEAKNESS, AB PAIN, SHORTNESS OF BREATH DIAGNOSES: - Procedure and treatment not carried out due to patient leaving prior to being seen by health care provider 04/10/2020 09:00 [facility] TYPE: Emergency COMPLAINT: - SOB 03/03/2020 10:00 [facility] TYPE: Emergency COMPLAINT: - WEAKNESS 02/16/2020 11:26 [facility] TYPE: Emergency COMPLAINT: - RAPID HEART RATE/DEPRESSED DIAGNOSES: - Personal history of nicotine dependence - Allergy status to other drugs, medicaments and biological substances - Heart failure, unspecified - Chronic obstructive pulmonary disease, unspecified - 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 (current) use of aspirin - Paroxysmal atrial fibrillation - Other termination clerk (current) 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 - Palpitations 11/28/2019 15:55 [facility] TYPE: Emergency COMPLAINT: - BACK PAIN DIAGNOSES: - Allergy status to other drugs, medicaments and biological substances - Low back pain - Personal history of nicotine dependence - Dorsalgia, unspecified - Unspecified atrial fibrillation - Other senior care (current) 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 - Heart failure, unspecified [...] drugs, medicaments and biological substances - Other termination clerk (current) 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 - Personal history of nicotine dependence - Heart failure, unspecified - Shortness of breath - Chronic atrial fibrillation, unspecified - Localized edema - termite treater (current) use of aspirin - Chronic obstructive pulmonary disease, unspecified - Dependence on supplemental oxygen INPATIENT VISIT TRACKING (12 MO.) 04/20/2020 19:[address] [facility] [place] TYPE: Medical Surgical COMPLAINT: - HYPOXIC RESP FAILURE DIAGNOSES: - Pneumonia due to Methicillin resistant Staphylococcus aureus - Chronic diastolic (congestive) heart failure - Other viral pneumonia - Permanent atrial fibrillation - Presence of coronary angioplasty implant and graft - Chronic diastolic (congestive) heart failure - Allergy status to other drugs, medicaments and biological substances - Major depressive disorder, single episode, unspecified - COVID-19 - Allergy status to other drugs, medicaments and biological substances - Major depressive disorder, single episode, unspecified - Hyperlipidemia, unspecified - Other viral pneumonia - Presence of coronary angioplasty implant and graft - Anxiety disorder, unspecified - Other constipation - Other termination clerk (current) 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 - Permanent atrial fibrillation - Personal history of nicotine dependence - Gastro-esophageal reflux disease without esophagitis - Chronic obstructive pulmonary disease with (acute) lower respiratory infection - Other senior care (current) 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 - Hypokalemia - Pneumonia due to Methicillin resistant Staphylococcus aureus - COVID-19 - Chronic obstructive pulmonary disease with (acute) lower respiratory infection - Hyperlipidemia, unspecified - Anxiety disorder, unspecified - 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 (current) use of aspirin - Allergy status to other drugs, medicaments and biological substances - Other constipation - Acute respiratory failure with hypoxia - Hypokalemia - Gastro-esophageal reflux disease without esophagitis - termite treater (current) use of aspirin - Personal history of nicotine dependence 04/10/2020 12:56 [facility] TYPE: Medical Surgical COMPLAINT: - ACUTE RESPIATORY FAILURE, HYPOXEMIA COVID+ DIAGNOSES: - Allergy status to other drugs, medicaments and biological substances - Other viral pneumonia - Personal history of nicotine dependence - Acute respiratory failure with hypoxia - COVID-19 - Allergy status to other drugs, medicaments and biological substances - Other senior care (current) 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 - Major depressive disorder, single episode, unspecified - Anxiety disorder, unspecified - Hyperlipidemia, unspecified - Permanent atrial fibrillation - Other termination clerk (current) 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 - Major depressive disorder, single episode, unspecified - Acute on chronic diastolic (congestive) heart failure - Acute on chronic diastolic (congestive) heart failure - Presence of coronary angioplasty implant and graft - termite treater (current) use of aspirin - Anxiety disorder, unspecified - Hyperlipidemia, unspecified - 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 (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 analgesic - Personal history of nicotine dependence - Gastro-esophageal reflux disease without esophagitis - Presence of coronary angioplasty implant and graft - Gastro-esophageal reflux disease without esophagitis - Acute respiratory failure with hypoxia - termite treater (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 analgesic - Allergy status to other drugs, medicaments and biological substances - 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 (current) use of aspirin - Permanent atrial [...] - Acute respiratory failure with hypoxia - Allergy status to other drugs, medicaments and biological substances - Patient's other noncompliance with medication regimen - Gastro-esophageal reflux disease without esophagitis - Other termination clerk (current) 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 - Chronic obstructive pulmonary disease, unspecified - Anxiety disorder, unspecified - Permanent atrial fibrillation - Contact with and (suspected) exposure to other viral communicable diseases - 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 (current) use of aspirin - Hyperlipidemia, unspecified - Constipation, unspecified [email or web address]
--- NOTE | 2020-11-09 03:49 | NUR ---
PT ARRIVED TO ROOM 127 AT 0240 VIA STRETCHER, MOVED OVER TO BED VIA DRAW SHEET. PT IS DROWSY, FALLS ASLEEP BETWEEN CARE, BUT ANSWERS ORIENTATION QUESTIONS APPROPRIATELY. DENIES PAIN. LUNGS CLEAR, DIM IN BASES, 5L O2 IN PLACE. HR IN A.FIB, HR UP TO 120'S. CARDIZEM DRIP STARTED AT 5MG/HR, IS NOW INFUSING AT 10MG/HR (SEE EMAR FOR TITRATIONS.) PT DENIES CHEST PAIN OR SOB AT THIS TIME. BOWEL TONES ACTIVE, DENIES NAUSEA. SKIN IS FRAGILE, FLAKY, AND ECCHYMOTIC. BLANCHABLE REDNESS NOTED TO COCCYX, APPEARS PT HAD BEEN INCONTINENT OF URINE IN UNDERWEAR, ATTENDS PLACED ON PT. PT ALSO HAS BRUISE TO RIGHT RIBS, HE RECENTLY HAD A LUNG BIOPSY DONE AT [facility]. 18G IV IN RIGHT AC IS PATENT, DRESSING CHANGED. NEW 20G IV PLACED ON FIRST ATTEMPT IN RIGHT FOREARM, CARDIZEM DRIP MOVED TO THIS SITE. PT PROVIDED WITH WATER AND A URINAL, CALL LIGHT WITHIN REACH. PT'S EYES CLEANED-THEY HAVE SOME BRANDON/YELLOW DISCHARGE PRESENT. PT DENIES FURTHER REQUESTS AT THIS TIME.
--- NOTE | 2020-11-09 04:04 | NUR ---
PT IS BREATHING THROUGH MOUTH, OXYGEN SATS DROPPED TO 85%. SWITCHED TO OXYMASK AND SPO2 NOW 94%.
--- NOTE | 2020-11-09 04:39 | NUR ---
CARDIZEM DRIP TITRATED TO 7.5MG/HR FOR HR IN 80'S. OXYGEN TITRATED DOWN TO 3L FOR SPO2 97%. PT APPEARS TO BE ASLEEP, NO APPARENT DISTRESS.
--- NOTE | 2020-11-09 05:05 | NUR ---
CARDIZEM DRIP TITRATED TO 5MG/HR FOR HR IN 80'S. BP:89/58(68).
--- NOTE | 2020-11-09 06:48 | NUR ---
IN TO CHECK ATTENDS, DRY AT THIS TIME. PT STATES HE FEELS LIKE HE COULD VOID, HOWEVER, HE REMAINS DROWSY AND FALLS ASLEEP WHILE TRYING TO VOID. BLADDER SCAN SHOWS 314ML AT THIS TIME.
--- NOTE | 2020-11-09 07:30 | NUR ---
REPORT RECIEVED. PATIENT IS RESTING IN BED NO DISTRESS NOTED.
--- NOTE | 2020-11-09 07:46 | NUR ---
AWAKE ASKING QUESTIONS TO WHY HE IS AT THE HOSPITAL. EXPLAINED TO PATIENT THE EVENTS THAT TOOK PLACE. REMAINS ON CARDIZEM GTT AT 5 MG/HR. O2 IN PLACE.
--- NOTE | 2020-11-09 08:30 | NUR ---
AWAKE, SITTING UP IN BED EATING BREAKFAST. HR UP TO 130. CARDIZEM GTT INCREASED TO 10 MG/HR. AFTER BREIF TIME WITH CARDIZEM GTT AT 10 MG/HR, CARDIZEM GTT INCREASED TO 15 MG/HR. C/O INCREASED SHORTNESS OF BREATH. REQUESTING NEB TREATMENT.
--- NOTE | 2020-11-09 09:00 | NUR ---
IN DEPARTMENT, IS AWARE OF HR AND CURRENT DOSE OF CARDIZEM GTT. ORDERES RECIEVED TO GIVE LOPRESSOR 5 MG X 3 OVER 15 MIN PERIOD.
--- NOTE | 2020-11-09 09:14 | NUR ---
FIRST DOSE OF LOPRESSOR 5 MG GIVEN. SEE EMAR FOR HR, BP AT TIME LOPRESSOR GIVEN. REMAINS SHORT OF BREATH.
--- NOTE | 2020-11-09 09:30 | NUR ---
AFTER ALL 3 DOSES OF LOPRESSOR GIVEN, CARDIZEM GTT DECREASED TO 7.5 MG/HR. DR. GONZALES IN ROOM TO SEE PATIENT. PATIENT RECIEVED NEB TREATMENT FEW MIN EARLIER.
--- NOTE | 2020-11-09 09:40 | NUR ---
ATTEMPTED TO SEE PATIENT FOR ASSESSMENT. PATIENT WAS HAVING SOB AND RT AND RN IN ROOM GIVING MEDICATIONS. CM WILL CONTINUE TO FOLLOW.
[2020-11-09] MEDS ORDERED: LEVALBUTER1.25 MG/3 INH (10:24)
[2020-11-09] MEDS ORDERED: ZOLPIDEM TARTRAT5 MG PO (10:28)
[2020-11-09] MEDS ORDERED: HYDROMORPHONE HC2 MG PO (10:39)
--- NOTE | 2020-11-09 10:41 | NUR ---
pt yelled out for someone, windmill mechanic went in room, pt said he felt miserable, that he needed to use commode. windmill mechanic helped pt. pt sat for a couple minutes then said he was done, did not urinate or have a bm. pt assisted back to bed
--- NOTE | 2020-11-09 11:26 | EKG ---
[facility] [address] [place] [address] Signed Atrial fibrillation with rapid ventricular response Right bundle branch block Left anterior fascicular block Bifascicular block Inferior infarct , age undetermined Abnormal ECG When compared with ECG of 20-APR-2020 16:57, Atrial fibrillation has replaced Atrial flutter Inferior infarct is now present ST now depressed in Anterior leads Confirmed by AMANDA GONZALES MD ([id number] on 11/09/2020 11:26:28 AM Electronically Signed By: AMANDA GONZALES MD 11/09/20 1126 PATIENT NAME: EDSON HURST Electrocardiogram DATE OF : 35 PHYSICIAN: AMANDA GONZALES MD REPORT #: [id number] REPORT IS CONFIDENTIAL AND NOT TO BE RELEASED WITHOUT AUTHORIZATION
--- NOTE | 2020-11-09 12:36 | NUR ---
HAS BEEN VERY RESTLESS, CONTINUES TO C/O LEFT ARM PAIN AND BACK PAIN. HAS BEEN USING URINAL FREQUENTLY TO VOID SMALL AMOUNTS OF URINE AT A TIME. RECIEVED LASIX 40 MG IV EARLIER. REMAINS ON CARDIZEM DRIP AT 10 MG/HR.
--- NOTE | 2020-11-09 13:35 | NUR ---
MED REC COMPLETE
[2020-11-09] MEDS ORDERED: POTASSIUM CHLO20 ME1 PO (13:38)
--- NOTE | 2020-11-09 13:47 | NUR ---
insulation helper and rn's have been in pt. room frequently, pt. calls out or uses the call light. pt states he is miserable, he doesn't know what to do about it. pt seems anxious. pt feels like he has to urinate frequently only producing around 50mls each time. . no other needs at time time
--- NOTE | 2020-11-09 14:26 | NUR ---
other spatial scientist helped pt. use the urinal. pt said that he thinks he is at the end of his time and that he is good with it and at peace now. Said he has had a wonderful life and spent 40 years with the love of his life Camryn who is waiting for him on the other side. no other needs at this time.
--- NOTE | 2020-11-09 15:00 | NUR ---
cardizem gtt to off. PATIENT IS CALMER THIS AFTERNOON, AFTER THE NURSING SUPERVISIOR HAD A NICE LONG HEART TO HEART TALK WITH THE PATIENT, THE PATIENT HAS BEEN MUCH LESS ANXIOUS. PIETRO CRABTREE CNA ALSO TALKED WITH PATIENT REGARDING END OF LIFE ISSUES.
--- NOTE | 2020-11-09 15:11 | NUR ---
OVER TO UNIT, PATIENT REMAINS RESTLESS AND REQUIRING O2. UPDATE RECVD FROM STAFF. WILL CONTINUE TO MONITOR PATIENT AND PLAN FOR DISCHARGE.
--- NOTE | 2020-11-09 15:45 | NUR ---
ASSESSMENT UNCHANGED. HAS BEEN USING COMMODE/URINAL TO VOID THIS AFTERNOON.
--- NOTE | 2020-11-09 16:43 | NUR ---
PT CALL LIGHT ON. PT REQUEST ASSTANCE WITH USING URINAL. ASSISTANCE PROVIDED. PT VOIDS 200ML LIGHT YELLOW URINE WITHOUT ISSUE. PT CONTINUES VISITING WITH FAMILY. NO ADDITIONAL REQUESTS OR COMPLAINTS. CALL LIGHT WITHIN REACH.
--- NOTE | 2020-11-09 17:53 | NUR ---
PT CALL LIGHT ON. PT REQUESTS ASSISTANCE UP TO RESTROOM. 1 PERSON ASSIST UP TO BEDSIDE COMODE. PT REPORTS HE NEEDS TO HAVE A BOWEL MOVEMENT. PT PASSES A LOT OF GAS BUT NO BM NOTED. PT VOIDS 325 CLEAR YELLOW URINE. JORY CARE DONE. SMALL SMEAR NOTED. 1 PERSON ASSIST BACK TO BED. PT REPORTS 9/10 PAIN IN LEFT HAND AND REQUESTS A PAIN PILL. TYLENOL AND OXY OFFERED. PT REQUESTS OXYCODONE. SEE MAR FOR MEDICAITON GIVEN. DINNER ARRIVED. PT SITTING ON EDGE OF BED TO EAT. NO ADDITIONAL REQUESTS OR COMPLAINTS. CALL LIGHT WITHIN REACH. FAMILY AT BEDSIDE.
--- NOTE | 2020-11-09 18:19 | NUR ---
PT CALL LIGHT ON. PT FINISHED WITH DINNER. PT ASSISTED WITH GETTING BACK INTO BED. HEAD OF BED ELEVATED TO 45 DEGREES. PT VISITING WITH FAMILY. NO ADDITIONAL REQUESTS OR COMPLAINTS. CALL LIGHT WITHIN REACH.
--- NOTE | 2020-11-09 19:30 | NUR ---
SHIFT REPORT RECEIVED FROM SARI CHANDLER. PT'S SPO2 PROBE WAS NOT WORKING, IN TO ASSIST PT WHO HAD TANGLED SOME CORDS. OXYGEN INCREASED TO 6L FOR SPO2 IN 80'S. ASSISTED PT TO REPOSITION IN BED.
--- NOTE | 2020-11-09 20:40 | NUR ---
ASSESSMENT COMPLETED AT THIS TIME. PT IS ALERT/ORIENTED, PRN TYLENOL GIVEN FOR 9/10 CHRONIC PAIN TO LEFT ARM AND RIGHT HIP AND RIBS. LUNGS CLEAR, DIM ON LEFT SIDE, 6L O2 IN PLACE. HR IRREGULAR. BOWEL TONES ACTIVE, DENIES NAUSEA. SKIN GROSSLY INTACT, UNCHANGED FROM YESTERDAY. IV SITES INTACT AND PATENT, SALINE LOCKED. PT TOOK EVENING MEDICATIONS WITHOUT ISSUE. CALL LIGHT WITHIN REACH.
--- NOTE | 2020-11-09 22:00 | NUR ---
PT HAS USED CALL LIGHT FREQUENTLY, RN INTO ROOM MULTIPLE TIMES. PT HAS VOIDED SEVERAL TIMES, SMALL AMOUNTS. OXYGEN ABLE TO BE TITRATED DOWN TO 4L, HUMIDITY ADDED BY Shalonda BAUTISTA UPDATED ON PT'S ANXIETY, PRN ANXIOLYTIC ADDED TO ORDERS.
--- NOTE | 2020-11-10 00:24 | NUR ---
ASSESSMENT COMPLETED. PT SLEEPING, WOKE UP EASILY TO VOICE. BP CUFF MOVED TO RIGHT LEG HE WAS LAYING ON RIGHT SIDE AND LEFT ARM READING WAS FALSELY LOW. PT CANNOT HAVE BP TAKEN ON RIGHT ARM DUE TO BICEPS MUSCLE INJURY. PT CONTINUES TO REPORT 9/10 GENERALIZED PAIN, 1 TAB OXYCODONE GIVEN. PRN ALPRAZOLAM ALSO GIVEN FOR ANXIETY. REMAINDER OF ASSESSMENT UNCHANGED. URINAL EMPTIED. PT DENIES FURTHER REQUESTS.
--- NOTE | 2020-11-10 02:18 | NUR ---
IN TO GIVE SCHEDULED METOPROLOL. PT WAS SLEEPING, BUT WOKE EASILY AND TOOK MEDS WITHOUT ISSUE. PT REPORTS THAT PAIN HAS IMPROVED SINCE PRN OXYCODONE. URINAL EMPTIED. PT DENIES FURTHER REQUESTS.
--- NOTE | 2020-11-10 02:36 | NUR ---
PT CALLED NEEDING TO VOID AND WANTED TO STAND TO DO SO. STOOD AT BEDSIDE WITH SBA AND VOIDED 100ML BEFORE RETURNING TO BED. PT DENIES FURTHER REQUESTS, CALL LIGHT WITHIN REACH.
--- NOTE | 2020-11-10 04:30 | NUR ---
PT CALLED TO USE BATHROOM, STOOD AT BEDSIDE WITH SBA TO USE URINAL. STANDING WEIGHT OBTAINED: 68.9KG. ASSESSMENT COMPLETED, UNCHANGED. PT DENIES COMPLAINTS OF PAIN, SOB, OR NAUSEA. PT BACK IN BED, NO FURTHER REQUESTS. BP CUFF REMOVED FROM LEG PER PT REQUEST. CALL LIGHT WITHIN REACH.
--- NOTE | 2020-11-10 05:37 | NUR ---
PT CALLED TO USE BATHROOM. SBA TO STAND AT BEDSIDE, VOIDED 100ML YELLOW URINE AND RETURNED TO BED. PRN OXYCODONE GIVEN FOR 9/10 GENERALIZED PAIN. FRESH ICE WATER PROVIDED. NO FURTHER REQUESTS, CALL LIGHT WITHIN REACH.
--- NOTE | 2020-11-10 07:14 | NUR ---
Report from Teresa Capellan RN.
--- NOTE | 2020-11-10 07:52 | NUR ---
Sitting in bed. Hair washed by Jaleesa Finnegan CNA. Patient focused on dry nares, using water at bedside to put in his nares with fingers as he feels congested. Humidifier on oxygen noted. Informed him this nurse will discuss decongestant with Dr. Dubon. Assessment completed. Heartrate between 110-127, see EMAR. Patient with increasing restlessness concerning nares and congestion. Attempt to redirect by providing AM by Jaleesa Finnegan CNA. After cares completed, again, start using finger to put water in nares.
--- NOTE | 2020-11-10 08:23 | NUR ---
pt very anxious this morning, fixated on saying his nose is plugged and that he cant breathe, he was dipping his finger in water and sticking it up his nose. His O2 stats were good. no other needs at [facility] time
--- NOTE | 2020-11-10 08:49 | NUR ---
pt bed changed gown changed bed bath given. no other needs at this time
--- NOTE | 2020-11-10 08:50 | NUR ---
pt. brenden Banerjee is in room with pt.
--- NOTE | 2020-11-10 09:12 | NUR ---
AM medications administered. Less restlessness noted at this time. Lying in bed on side, states he is tired. Pain remains 10/10 per patient, PRN analgesics provided as prescribed. Turns onto left side to rest. Eyes closed, respirations even and unlabored. Call light in reach, bed rails elevated. Dr. Dubon notified of elevated heartrates, improved with medication and lower blood pressures. No new orders at this time.
--- NOTE | 2020-11-10 10:17 | NUR ---
IN TO UNIT TO SEE PATIENT. IMAGING STAFF IN ROOM PATIENT IS ON THE WAY TO CT. WILL FOLLOW UP WITH PATIENT WHEN HE RETURNS TO THE FLOOR.
--- NOTE | 2020-11-10 10:45 | NUR ---
Placed on telemetry #2 for transfer to room 121 on med-surg. Currently sitting up in recliner, visiting with family member. Denies other needs at this time. Call light in reach.
--- NOTE | 2020-11-10 11:08 | NUR ---
REPORT RECEIVED FROM SARI REES. AWAITING PTS ARRIVAL TO UNIT.
--- NOTE | 2020-11-10 11:09 | NUR ---
Report called to Abi Porter RN.
--- NOTE | 2020-11-10 11:47 | NUR ---
PT ARRIVED FROM CCU. PT TRANSFERS SELF FROM CHAIR TO BED WITH ONE PERSON ASSIST. PT REPORTS 7/10 PAIN IN HIS LEFT HAND AND REQUESTS PAIN MEDICAITON, SEE MAR FOR MEDICATION GIVEN. PT DENIES NAUSEA. IVS ASSESSED, WNL, FLUSH EASILY, ALCOHOL CAPS APPLIED. PT ORIENTED TO ALL BUT THOUGHT HE WAS IN THE HOSPITAL FOR PNEUMONIA, EDUCATION DONE WITH PT REGARDING AFIB-RVR AND CURRENT DIAGNOSES. LEFT ARM REMAINS WEEK, MITER OPERATOR WEAKER ON LEFT THAN RIGHT. PT REPORTS GENERALZIED WEAKNESS. PLANTAR AND DORSI FLEXION STRONG AND EQUAL BILATERALLY. PT CONTINUES TO REPORT NUMBNESS TO LEFT ARM. LUNG SOUNDS CLEAR, PT REMAINS ON 4L O2 BY NC, REPORTS BASELINE OF 2L AT HOME. PT REQUESTS HIS BREATHING TREATMENT, RT CALLED AND STATES THEY WILL ARRIVE SHORTLY. PT REPORTS HE HAS NO ADDITIONAL REQUESTS OR COMPLAINTS. CALL LIGHT WITHIN REACH. BED RAILS UP. ROOM NEAR NURSES STATION FOR FREQUENT OBSERVATION. BED ALARM ON.
--- NOTE | 2020-11-10 12:46 | NUR ---
LUNCH ARRIVED. PT REPORTS "I'M STARVING." 1 PERSON ASSIST WITH FRONT WHEEL WALKER UP TO CHAIR FOR LUNCH. PT REPORTS PAIN IN LEFT HAND IS "ABOUT THE SAME." PT ASSISTED WITH SET UP OF FOOD TRAY. PT DENIES ADDITIONAL REQUESTS OR COMPLAINTS. CALL LIGHT WITHIN REACH. FAMILY AT BEDSIDE.
--- NOTE | 2020-11-10 13:00 | NUR ---
PTS HEART RATE MAINTINING IN 130'S WHILE PT IS UP TO CHAIR AND EATING LUNCH. VITAL SIGNS OTHERWISE STABLE. MD CONSULTED, 1400 METOPROLOL GIVEN EARLY. PT DENIES FEELING DIZZY, LIGHT HEADED, OR CHEST PAIN. PT ENCOURAGED TO FINISH LUNCH AND THEN REST/NAP THIS AFTERNOON. VISITORS AGREE THEY WILL LEAVE FOR A WHILE TO ALLOW PT TO REST. PT REMAINS UP TO CHAIR EATING LUNCH. CALL LIGHT WITHIN REACH. CHAIR ALARM ON.
--- NOTE | 2020-11-10 13:17 | NUR ---
PT HR NOTED AT 121. GIVEN LOPRESSOR EARLY PER DR REQUEST. PT IN CHAIR CHATTING WITH FRIENDS AND EATING LUNCH.
--- NOTE | 2020-11-10 13:35 | NUR ---
PER DR. GONZALES CT RESULTS WILL NOT BE DISCUSS UNTIL TOMORROW. PER DR. GONZALES PATIENT IS TO BE RESTING AT THIS TIME HE HAS HAD A LOT OF VISITORS TODAY. CASE MANAGEMENT ASSESSMENT AND DISCHARGE PLANNING TO BE DISCONTINUE UNTIL TOMORROW PER REQUEST OF DR. GONZALES. WILL FOLLOW UP WITH PATIENT TOMORROW REQUESTED.
--- NOTE | 2020-11-10 13:35 | NUR ---
PT FINISHED WITH LUNCH. 1PERSON ASSIST FWW BACK TO BED. PT DENIES PAIN IN HIS LEFT HAND AT THIS TIME STATING "I DONT' HAVE ANY RIGHT NOW, IT'S JUST NUMB. PT POSITIONED FOR COMFORT AND ENCORUAGED TO TAKE A NAP. VISTORS LEAVING UNTIL THIS EVENING WHEN THEY WILL BE BACK. PT DENIES ADDITIONAL REQUESTS OR COMPLAINTS. CALL LIGHT WITHIN REACH. BED RAILS UP.
--- NOTE | 2020-11-10 13:57 | NUR ---
PT SITTING IN CHAIR, ALERT, ORIENTED AND VISITING WITH FAMILY. GAVE G.POST AND BLESSING AND WILL COME BACK AND LET PT VISIT.
--- NOTE | 2020-11-10 14:28 | NUR ---
PT CALL LIGHT ON. PT ATTEMPTING TO GET OUT OF BED TO "DRINK MY JUICE." PT ASSISTED WITH REPOSITIONING TO GET HIS JUICE. DINNER ORDER PLACED PER PT REQUEST. PT REPOSITIONED TO REST IN BED. VITAL SIGNS TAKE. HEAR TRATE 106 BY MONITOR AT THIS TIME. PT ENCOURAGED TO REST. BED RAILS UP. CALL LIGHT WITHIN REACH. BED ALARM ON.
--- NOTE | 2020-11-10 14:32 | NUR ---
PATIENT AWAKE IN BED, RN AT BEDSIDE. VITALS AND I&OS CHARTED. BED ALARM ON FOR SAFETY, CALL LIGHT IN REACH, NO OTHER NEEDS AT THIS TIME
--- NOTE | 2020-11-10 14:38 | NUR ---
PT CALLED TO SAY THAT IF HE DID NOT HAVE SOMETHING FOR HIS ANXIETY\SLEEPING HE WAS GETTING BACK UP. GIVEN ALPRAZOLAM
--- NOTE | 2020-11-10 15:12 | NUR ---
THIS RN TO ROOM TO CHECK ON PT. PT RESTING WITH EYES CLOSED IN SUPINE POSITION. BED RAILS UP. CALL LIGHT WITHIN REACH. BED ALARM ON. PT ALLOWED TO REST.
--- NOTE | 2020-11-10 16:00 | NUR ---
ANSWERED CALL LIGHT, PATIENT ATTEMPTING TO GET OUT OF BED TO USE VOID. 1PA TO USE URINAL. PATIENT NOW AT SIDE OF BED, RT IN FOR BREATHING TREATMENT.
--- NOTE | 2020-11-10 16:05 | NUR ---
PT TRANSFERED FROM CCU THIS SHIFT, HERE FOR AFIB-RVR. PT UP WITH 1 PERSON ASSIST AND FRONT WHEEL WALKER, GENERALIZED WEAKNESS NOTED. PT TOELRATING REGULAR DIET AND 1600ML FLUID RESTRICTION WITH GOOD APPTITIE. HEART RATE UP TO 130'S THIS SHIFT. CONTROLED WITH ORAL METOPROLOL. PT REMAINS ON 4L O2 BY OR. SCHEDULED NEBULIZER TREATEMENTS GIVEN. PT ALERT AND OREITNED TO ALL. LEFT ARM WEAKNESS AND PAIN CONTINUES, PRN PAIN MEDICATION GIVEN. PRN ALPARZOLAM DOES INCREASED TO Q6, PT ANXIOUS AT TIMES. ENCOURAGED TO REST RELATED TO HEART RATE, PER MD, PT HAS TROUBLE RESTING THIS SHIFT. DAILY WEIGHT. PT VOIDING SMALL QUANTITIES AT A TIME, MONITORING OUTPUT. BED BATH THIS SHIFT IN CCU. PT USES CALL LIGHT APPORPRIALTY. BED/CHAIR ALARM FOR SAFETY. PT WORKING ON ADVANCED CARE PLAN, PLANNING TO NOTORIZE WITH HOSPITAL STAFF TOMORROW.
--- NOTE | 2020-11-10 16:30 | NUR ---
AFTERNOON ASSESSMENT AND MEDICATION DUE. PT UP TO CHAIR WITH SMALL ORDER CUTTER USING URINAL. PT MISSES URINAL AND VOIDS ON FLOOR. JORY CAR EDONE. ROOM CLEANED. PT DENIES PAIN AND NAUSEA AT THIS TIME. STATING "NO NOTHING HURTS RIGHT NOW." PT ORIENTED TO ALL. FORGETFUL AT TIMES. ANSWERING QUESTIONS APPROPRILATY AND TELLING COHERIANT STORIES. PT AXIOUS AT TIMES. PT ASKING ABOUT HIS CT SCAN RESULTS, ADIVSED THAT MD WILL UPDATE HIM ON RESULTS TOMORROW DURING ROUNDS. GENERALIZED WEAKNESS CONTINUES. LEFT ARM MULTIPLE TUBE WINDING MACHINE OPERATOR STRENGTH AND MOVEMENT WEAKER THAN RIGHT. LUNG SOUNDS CLEAR BUT DEMINISHED. PT WEANED TO 3L PER RT. TOLERATING WITH O2 SATRUATIONS ABOVE 92%. DORSI AND PLANTAR FLEXTION WNL BILATERALLY. HEART RATE MAINTINAING IN 80-90'S, AFIB RHYTHEM. PT REQUESTS TO GO BACK TO BED. 1 PERSON ASSIST WITH FRONT WHEEL WALKER BACK TO BED. DINNER ARRIVES. PT AGREES TO SIT ON EDGE OF BED WHILE HE EATS. NO ADDITIONAL REQUESTS OR COMPLAINTS. PT ASSISTED WITH TRAY SET UP. CALL LIGHT WITHIN REACH. BED RAILS UP.
--- NOTE | 2020-11-10 18:25 | NUR ---
THIS RN TO ROOM TO CHECK ON PT. PT GETTING BACK TO BED WITH DESK ASSISTANT AFTER USING THE URINAL. PT ASSISTED WITH POSITIONING IN BED FOR COMFORT. HEAD OF BED ELEVATED TO 40 DEGREES. PT DENIES PAIN AND NAUSEA. PT DENIES ADDITIONAL REQUESTS OR COMPLAINTS AT THIS TIME CALL LIGHT WITHIN REACH. BED RAILS UP.
--- NOTE | 2020-11-10 18:33 | NUR ---
Patient is in bed watching tv, call light is on lap, room is organized and clean, patient has no other immediate needs. Bed alarm is activated.
--- NOTE | 2020-11-10 19:25 | NUR ---
PATIENT WAS UP STANDING BY THE BED TO USE THE URINAL.1 PA. PATIENT IS BACK IN BED. BED ALARM ON FOR SAFETY. NEPHEW WAS IN THE ROOM.
--- NOTE | 2020-11-10 19:30 | NUR ---
REPORT RECIEVED FROM SARI RICHMOND. PATIENT'S NEPHEW MARTIN IS AT BEDSIDE. PATIENT HAS NO CURRENT CARE NEEDS. CALL LIGHT IN REACH AND BED ALARM ON.
--- NOTE | 2020-11-10 21:20 | NUR ---
RT NOTIFIED THIS RN THAT pt ATTEMPTING TO GET UP TO VOID. RN IN ROOM, 1PA TO STAND AT SIDE OF BED FOR VOID, 50 MLS. pt ANXIOUS, LABORED BREATHING, STATES "I'M SO COLD, WHY AM I SO COLD". WARM BLANKET PROVIDED. pt REQUESTING "XANAX OR SOMETHING". STATES "I HURT ALL OVER". pt DOES NOT RATE PAIN AT THIS TIME. PRN PAIN AND ANXIETY MEDICATION ADMINISTERED. RN REMAINS IN ROOM AT BEDSIDE, pt REQUESTING COMPANY. PHONE CALL TO pt'S NEPHEW PER pt REQUEST, NEPHEW TO COME BACK TO HOSPITAL. DURING CONVERSATION, pt STATES HE IS DONE. DISCUSSED WITH PATIENT THAT NEWPHEW WILL BE BACK TOMORROW AND THAT HE CAN VISIT WITH CASE MANAGEMENT AND DOCTOR ABOUT OPTIONS FOR COMFORT. PLAN TO STAY ON TOP OF PAIN MEDICATIONS AVAILABLE THIS SHIFT. DISCUSSED WITH PRIMARY RN MARTIN. SARI SALAZAR NOW IN ROOM.
--- NOTE | 2020-11-10 22:00 | NUR ---
PATIENT GIVEN HIS EVENING MEDS AND IS STARTING TO CALM AFTER ANXIETY AND PAIN MEDS GIVEN. PATIENT'S NEPHEW MARTIN HAS COME BACK TO SIT WITH THE PATIENT AWILE AT PATIENT'S REQUEST. CHARLENE'S WATER GLASS FULL AND CALL IGHT IN REACH AND BED ALARM ON.
--- NOTE | 2020-11-10 22:11 | NUR ---
PATIENT'S NEPHEW TOLD THIS LAUNDRY TUB MAKER THAT THE PATIENT NEEDS TO PEE. WENT INTO THE ROOM. PATIENT WANTS TO GET UP AND USE THE TOILET. THIS LAUNDRY TUB MAKER ASKED IF HE WALKS TO THE BATHROOM. PATIENT STATED " I DONT KNOW". THIS LAUNDRY TUB MAKER OFFERED BEDSIDE COMMODE. PATIENT JUST VOIDED. PATIENT IS BACK IN BED. CALL LIGHT IN REACH. BED ALARM ON FOR SAFETY. NEPHEW IS IN THE ROOM.
--- NOTE | 2020-11-10 22:40 | NUR ---
CALL LIGHT ANSWERED. pt ASSISTED TO STAND AT BEDSIDE FOR 25 ML VOID IN URINAL. BACK IN BED, LEGS ELEVATED, HOB ELEVATED. pt C/O ARM PAIN. REFUSES ICE PACK, REPOSITIONING OF ARM. BED ALARM ON. JOSE IN ROOM.
--- NOTE | 2020-11-11 00:12 | NUR ---
PATIENT VERY ANXIOUS AGAIN AND PAIN HAS REMAINED 6-7 OF TEN. WAS CALLED AND PAIN MEDICATION AND ANXIETY MEDICATION DOSES DOUBLED AND DOSES ORDERED TO START NOW AND THEY WERE GIVEN. PATIENT WAS STANDING, BUT IS NOW BACK IN BED. WAS ALSO INFORMED THAT PATIENT IS VOIDING VERY FREQUENTLY IN SMALL AMOUNTS, BUT PER BLADDER SCAN ONLY 16MLS IN THE BLADDER. NO ORDERS GIVEN FOR THIS ISSUE. CALL LIGHT IN REACH AND BED ALARM ON.
--- NOTE | 2020-11-11 01:00 | NUR ---
PATIENT RESTING QUIETLY IN SEMI-FOWLERS POSITION AND REMAINS ON 3L/NC. BED ALARM IS ON AND CALL LIGHT IS IN REACH. PATIENT'S RESPIRATIONS ARE REGULAR AND EVEN AND EYES ARE CLOSED AT THIS TIME.
--- NOTE | 2020-11-11 03:20 | NUR ---
WAS CALLED PATIENT IS BACK AWAKE AND REFUSES TO STAY IN BED, AND CONTINUES TO WANT TO VOID EVERY FEW MINUTES. ORDERED A MESSINA CATH AND PATIENT AGREED TO THIS AND ANOTHER ANXIETY/SLEEPING MED WAS ORDERED AND GIVEN. UROJET USED TO PLACE 16FRENCH MESSINA AND PATIENT TOLERATED THIS WELL, BUT STILL REFUSES TO STAY IN BED. THIS RN SITTING AT BEDSIDE CHARTING AT THIS TIME AND PATIENT SITTING ON THE EDGE OF THE BED.
--- NOTE | 2020-11-11 03:41 | NUR ---
PATIENT GIVEN PO PAIN MEDICATION FOR 8/10 GENERALIZED BODY PAIN.
--- NOTE | 2020-11-11 04:03 | NUR ---
GROUP UNDERWRITER WING IS NOW SITTING AT PATIENT'S BEDSIDE TALKING WITH THE PATIENT.
--- NOTE | 2020-11-11 06:10 | NUR ---
PATIENT HAS HAD A FAIRLY RESTLESS NIGHT. PATIENT BECOMES EASILY CONFUSED AND ANXIOUS WELL HAVING A FAIR AMOUNT OF OF GENERALIZED PAIN. PATIENT TAKING ANXIETY AND PAIN MEDICATIONS WHICH WERE DOUBLED DURING THE NIGHT WITH ORDERS FROM DR. GONZALES. PATIENT STARTING TO GET LOUD WITH STAFF WHEN BEING REDIRECTED TO BED. PATIENT ALSO HAD A MESSINA PLACED TO TRY AND HELP WITH HIS URINARY FREQUENCY AND PATIENT VERBALIZED THIS DID HELP, BUT HE STILL IS WANTING TO GET UP AND GO OUTSIDE, BUT CAN'T REMEMBER WHERE HE IS OR WHAT IS GOING ON. PATIENT CURRENTLY RESTING WITH BED ALARM ON AFTER HIS LAST DOSE OF PAIN MEDICATION AND SOME MORE MEDICATION TO HELP WITH ANXIETY.
--- NOTE | 2020-11-11 07:30 | NUR ---
Report recieved from SARI Banerjee. Pt up to BSC w/ CNAs in room.
--- NOTE | 2020-11-11 08:11 | NUR ---
Pt sitting up in chair safely w/ chair alarm on and call light in reach. This RN is sitting in room w/ pt as he is restless and impulsively self transfering. Pt sitting w/ leg elevated as there is observable +1 edema to Bilat LE. Pt is waiting for breakfast to arrive, coffee given per pt request, no other needs at this time. Morning assesment and care plan evaluation completed. VSS on 3L via MO.
--- NOTE | 2020-11-11 08:48 | NUR ---
patient got up to use cammode and up to the chair for the morning. chair alarm on. warm wash cloth offered and taken. ice water refreshed. call light in reach. no further needs at this time.
--- NOTE | 2020-11-11 11:00 | NUR ---
Pt resting in bed safely w/ eyes closed, respirations even and unlabored. Call light in reach and nephew in room.
--- NOTE | 2020-11-11 12:32 | NUR ---
Pt remains in bed resting safely w/ eyes closed, respirations even and unlabored. Call light in reach and nephew at bedside.
--- NOTE | 2020-11-11 13:23 | NUR ---
IN TO PATIENT ROOM, DR. GONZALES AND PATIENT NEPHEW AT BEDSIDE. PATIENT APPEARS VERY SLEEPING, ONLY RESPOND TO VOICE FOR A SECOND BEFORE FALLING BACK TO SLEEP. DR. GONZALES REQUESTING CALL TO PATIENT SON ARTURO VIA PHONE, ARTURO ON THE LINE. DR. GONZALES DISCUSSED PATIENT CT SCAN AND CURRENT CONDITION. DISCUSSED WITH ARTURO AND MARTIN THAT IT WOULD NOT BE SAFE FOR PATIENT TO RETURN HOME AT THIS TIME DUE TO NEEDED ROUND THE CLOCK RETIREMENT CARE. PATIENT FAMILY STATES THAT THEY KNOW THE PATIENT WOULD NOT WANT TO BE PLACE IN A NURSING FACILITY AND HAS STATED HE WANTS TO AT HOME. PATIENT SON ARTURO AND NEPHEW MARTIN REQUESTING TO WAIT UNTIL PATIENT IS AWAKE TO DISCUSS FURTHER PLACEMENT AND DISCHARGE PLANS DR. GONZALES AGREES. PER MARTIN PATIENT NEPHEW THEY HAVE STARTED WORKING ON THE PATIENTS ADVANCED DIRECTIVE AT THIS TIME AND MARTIN HAS AGREED TO FINISHING THOSE DOCUMENT. MARTIN STATES HE IS GOING TO GO HOME TO WORK ON THE PATIENT ADVANCED DIRECTIVE, BUT WILL RETURN LATER TO SEE PATIENT.
--- NOTE | 2020-11-11 14:26 | NUR ---
PT SOUND ASLEEP, DID NOT DISTURB
--- NOTE | 2020-11-11 15:51 | NUR ---
Oxycodone 10mg and tylenol 500mg po admin for pain. Lactulose admin for constipation.
--- NOTE | 2020-11-11 16:20 | NUR ---
Pt c/o not being able to breath, O2 sats on 3L via NC 86%, oxygen increased to 4L via NC, O2 sats now 96%. Pt also c/o of feeling "stuffy" in his nose. Dr. Dubon notified.
--- NOTE | 2020-11-11 18:17 | NUR ---
Pt sitting up in chair eating dinner, this RN in room for 1:1 as pt remains impulsive, as well as an unsteady gait and general weakness.
--- NOTE | 2020-11-11 18:18 | NUR ---
Pt resting in bed in between meal times and up in chair for meals, pt A+O to person and place but not time. Pt forgetfull and anxiopus at times, pt c/o all over pain. PRN meds given for pain and anxiety per provider order and pt request. Pt is a 1:1 while awake as he is impulsive/forgetfull, and is unsteady on his feet.
--- NOTE | 2020-11-11 18:57 | NUR ---
Pt ate 100% of dinner and requested to go back to bed. 1PA to bed, pt now resting safely in bed w/ eyes closed, respirations even and unlabored. Call light in reach and bed alarm on. Pt's nephew stopped by but saw the pt was sleeping and stated he would go so pt could sleep, but to call him if we needed anything. This passed on to on coming RN.
--- NOTE | 2020-11-11 19:20 | NUR ---
SHIFT REPORT RECEIVED FROM DAYSIDFT SARI JEROME/MECHE AT BEDSIDE. pt RESTING QUIETLY IN BED WITH EYES CLOSED, RR EVEN AND UNLABORED. 3LNC IN PLACE, BED ALARM ON FOR SAFETY. CALL LIGHT IN REACH.
--- NOTE | 2020-11-11 19:40 | NUR ---
RT KB IN ROOM WITH pt, COMPLETING SCHEDULED BREATHING TREATMENT.
--- NOTE | 2020-11-11 21:30 | NUR ---
IN TO ASSIST RN WITH VITALS, CATH CARE AND MESSINA EMPTIED, ASSIST WITH PT TO LAY ON LEFT, PILLOW TO THE RIGHT HIP, NO FURTHER NEEDS AT THIS TIME
--- NOTE | 2020-11-11 21:51 | NUR ---
ASSESSMENT COMPLETE, SCHEDULED MEDS GIVEN (SEE EMAR). pt A/O TO SELF AND , LAUGHS WHEN ASKED THE DATE. ATTEMPTS TO FOLLOW DIRECTIONS, BED ALARM REMAINS ON FOR SAFETY. SMALL AMOUNT REDDNESS NOTED TO COCCYX, EASILY BLANCHABLE. PILLOW PLACED UNDER RIGHT SIDE. SWALLOWED CARDIAC PILL WHOLE, NO ISSUES NOTED. SENNA CRUSHED AND GIVEN IN PUDDING pt IS SLOW MOVING AT TIMES. NO ISSUES WITH SWALLOWING NOTED. CMS APPEARS INTACT, +2 EDEMA NOTED TO BLATERAL ANKLES, BLE ELEVATED. IV SITE WNL, FLUSHES EASILY. CALL LIGHT REMAINS IN REACH.
--- NOTE | 2020-11-11 22:52 | NUR ---
IN TO RECHECK VITALS FOR RN, NO FURHTER NEEDS
--- NOTE | 2020-11-11 22:55 | NUR ---
IN ROOM TO GIVE SCHEDULED BP PILL, VSS. 3LNC REMAIN IN PLACE, SARI ZELAYA ALSO IN ROOM TALKING TO pt, pt INSISTING HE HAS TO POOP AND IS IN PAIN. PRN PAIN MEDICATION ALSO GIVEN, SEE EMAR. pt UP TO BSC, LARGE SOFT BM NOTED. pt BACK IN BED WITH ALARM ON. NO FURTHER NEEDS, WILL MONITOR. CALL LIGHT IN REACH AND pt IN VIEW OF RN STATION.
--- NOTE | 2020-11-12 01:15 | NUR ---
pt RESTING IN BED WITH EYES CLOSED, ABLE TO CHANGE POSITIONS INDEPENDENTLY IN BED. RR EVEN AND UNLABORED, NO DISTRESS NOTED. CALL LIGHT IN REACH AND BED ALAR ON FOR SAFETY.
--- NOTE | 2020-11-12 04:06 | NUR ---
pt RESTING QUIETLY IN BED, EYES CLOSED AND RR EVEN AND UNLABORED. pt AWOKE BRIEFLY WHEN THIS RN IN ROOM, QUICKLY RESUMED SLEEPING. ORIENTATION NOT ASSESSED, pt ALLOWED TO REST. NO OUTWARD SIGNS OF PAIN NOTED, BED ALARM REMAINS IN PLACE. MESSINA PATENT AND DRAINING QS URINE. BED ALARM ON, CALL LIGHT IN REACH. 3LNC IN PLACE.
--- NOTE | 2020-11-12 04:10 | NUR ---
BED ALARM SET OFF, PT LEANS ON SIDE RAIL, C/O ARM BEING UNCOMFORTABLE AND "NOT KNOWING HOW TO FIX IT" PT REPEATING "FIX MY ARM, HELP ME FIX MY ARM" TRIED TO GET PT TO REST ARM ON PILLOW, ASKED PT IF ARM IS HURTING, PT STATES YES, WILL INFORM THE RN
--- NOTE | 2020-11-12 05:11 | NUR ---
pt BECOMING MORE RESTLESS, UP 2PA WITH FWW TO BSC, BM UNSUCCESSFUL. STAND WEIGHT OBTAINED, pt UNSTEADY ON FEET AND WEAK. BACK IN BED, VSS. 3LNC IN PLACE, pt REPORTS 10/10 PAIN, PRN PAIN MEDICATION GIVEN (SEE EMAR). JERROD PROVIDED, pt SITTING ON EDGE OF BED, IN VIEW OF RN STATION.
--- NOTE | 2020-11-12 08:51 | NUR ---
Patient c/o hunger, a snack was provided and breakfast order called in. Patient was provided with a basin, toothbrush, and toothpaste. Patient's glasses were cleaned, hair brushed, and face washed. Call light left in reach.
--- NOTE | 2020-11-12 09:10 | NUR ---
Oxycodone 10mg po admin for reports of 5/10 generalized pain.
--- NOTE | 2020-11-12 09:30 | NUR ---
THIS RN AND SOCO RN INTO ROOM. PATIENT SITTING UP AT BEDSIDE TALKING WITH BEBE SALAZAR. PATIENT ASKED ABOUT PLAN FOR DISCHARGE. PATIENT STATES " HE IS GOING TO GO HOME WITH ME " WHILE POINTING TO MARTIN. MARTIN ASKED IF HE WILL BE ABLE TO PROVIDE 24 HOUR CARE FOR THE PATIENT AT THIS TIME. MARTIN STATES NO HE WILL BE ABLE TO STAY WITH THE PATIENT UNTIL SUNDAY WHEN PATIENTS SON ARTURO IS ABLE TO ARRIVE. SOCO GUO DISCUSSED WITH PATIENT HIS NEED FOR 24 HOUR CARE GIVING DUE TO METASTATIC CA. PATIENT STATES HE HAS A FEW CAREGIVERS WHO WILL COME TO TAKE CARE OF HIM. PATIENT STATES KONSTANTIN ([phone]) WILL BE AVAILABLE SUNDAY TO START 24 HOUR CARE. I ATTEMPTED TO REACH OUT TO KONSTANTIN, BUT SHE WAS UNAVAILABLE AND A MESSAGE WAS LEFT. PATIENT AGREES TO SIGN A POLST FORM AND POA AT THIS TIME. PATIENT STATES THAT HE WOULD LIKE MARTIN TO BE HIS POA FOR FINANCIAL AND MEDICAL, MARTIN STATES HE IS WILLING TO DO SO AT THIS TIME. POLST REVIEWED BY SOCO RN WITH PATIENT AND BEBE SALAZAR. POLST COMPLETED. PATIENT WONDERING WHEN HE CAN GO HOME. I ADVISED THE PATIENT THAT I WILL DISCUSS HIS DISCHARGE PLANS WITH DR. GONZALES. DR. GONZALES UPDATE, HE WILL SEE THE PATIENT SHORTLY. [facility] CONTACTED AND APPOINTMENT SET UP FOR 1130 AM. PATIENT AND BEBE SALAZAR NOTIFIED.
--- NOTE | 2020-11-12 10:38 | NUR ---
Patient reports doing well today, alert and oriented x3. Patient reports sleeping well last night. No sob or chest pain reported. Patient's son at bedside visiting. Patient is less anxious today and has improved mentation status. No needs, calll light within reach. Close to SARI vera.
--- NOTE | 2020-11-12 10:45 | NUR ---
INTO PATIENT ROOM. PATIENT AWAKE SITTING UP IN BED TALKING WITH HIS NEPHEW MARTIN. THIS RN AND SOCO RN AT BEDSIDE. POA GIVEN TO PATIENT BEBE SALAZAR. POA COMPLETED BY PATIENT AND MARTIN AT BEDSIDE. AWAITING NOTARY TO ARRIVE TODAY AT 1130. PATIENT STATING THAT HIS ADVANCED DIRECTIVE IS LOCATED AT HIS HOME AND REVIEWING HIS PLANS WITH STAFF AND MARTIN. PATIENT STATES TO STAFF AND MARTIN AT "IT'S PRETTY MUCH A DONE DEAL." DISCUSSED WITH PATIENT THAT [facility] HEALTH WORKER WILL CONTINUE TO FOLLOW UP WITH HIS ONCE HE IS DISCHARGE, PATIENT IS HAPPY TO HEAR THIS INFORMATION. PATIENT ASKING WHEN HE CAN BE DISCHARGED. I ADVISED HIM I WOULD SPEAK TO DR. GONZALES. UPDATE GIVEN TO DR. GONZALES REGARDING PLAN FOR PATIENT BEBE SALAZAR TO STAY UNTIL SUNDAY AND HIS SON ARTURO WILL BE COMING AFTER MARTIN LEAVES TO STAY WITH THE PATIENT UNTIL CARE GIVERS ARE IN PLACE. PER DR. GONZALES HE WILL BE IN TO SPEAK WITH THE PATIENT SHORTLY. DISCUSSED PLAN WITH JUSTUS GUO.
[2020-11-12] MEDS ORDERED: ATENOLOL25 MG PO (11:33)
[2020-11-12] MEDS ORDERED: DEXAMETHASONE4 MG PO (11:34)
--- NOTE | 2020-11-12 16:33 | NUR ---
WHEN I CAME BACK FROM MY LUNCH BREAK AROUND 1310. CHARGE NURSE SAID THAT HE WANTED TO TAKE A SHOWER AND SHAVE BEFORE HE GOT DISCHARGE. SO I HELPED HIM TAKE A SHOWER. WASHED HIS BACK AND HIS LEGS AND HIS FEET AND ARMS AND HE DID HIS JORY AREA.
== END 2020-11-12 14:33 | disposition home or self-care (01) | DRG 308 ==
LOC: ED 00:35 → CCU 00:37 → MS 10:08 → CCU 10:08 → MS 11-10 11:20
PROVIDERS: ADMIT Internal Medicine; ATTEND Internal Medicine
DX: I48.20 Chronic atrial fibrillation, unspecified (principal); I50.33 Acute on chronic diastolic (congestive) heart failure; G93.6 Cerebral edema; J96.11 Chronic respiratory failure with hypoxia; C34.90 Malignant neoplasm of unspecified part of unspecified bronchus or lung; C79.31 Secondary malignant neoplasm of brain; Z20.822 Contact with and (suspected) exposure to COVID-19; I48.92 Unspecified atrial flutter; J44.9 Chronic obstructive pulmonary disease, unspecified; K21.9 Gastro-esophageal reflux disease without esophagitis; K59.09 Other constipation; E78.5 Hyperlipidemia, unspecified; F41.9 Anxiety disorder, unspecified; G83.24 Monoplegia of upper limb affecting left nondominant side; Z88.8 Allergy status to other drugs, medicaments and biological substances; Z79.899 Other long term (current) 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; Z79.82 Long term (current) use of aspirin
CPT/HCPCS: 36415; 70470; 71045; 80048; 80053; 83735; 83880; 84484; 85025; 93005; 93010; 93306; 94640; 94760; 96374; 96375; 99285-25; C9803; J1100; J1650; J1940; J2060; J8540; Q9967; U0003

== ENCOUNTER 2020-11-15 08:13 | Emergency (ER) | payer MEDICARE ==
[~2020-11-15] VITALS: Ht 175.3 cm; Wt 68.5 kg
[~2020-11-15 08:13] MED LIST changes: +DEXAMETHASONE4 MG PO; +LEVALBUTER1.25 MG/3 INH; +POTASSIUM CHLO20 ME1 PO; +ZOLPIDEM TARTRAT5 MG PO
--- OUTSIDE RECORDS SUMMARY | 2020-11-15 08:24 | XMS ---
PreManage Notification: EDSON HURST [employer] Network Desktop Support Specialist Events 2 event(s) in the past 18 months Most recent security events: Elopement at [facility] 04/19/2020 13:00 - Other Details: PATIENT LWBS. Elopement at [facility] 11/25/2019 20:37 - Other Details: PATIENT LWBS. CRITERIA MET - Group Notification - [facility] - Has Care Guidelines - [facility] - 2 Visits in 30 Days CARE PROVIDERS ROSA ENNIS Physician Book Sewing Machine Operator 05/31/2018-Current PHONE: Unknown Jose F has no Care Guidelines for this patient. Care History Medical/Surgical 11/26/2019 [facility] - CHW CONTACTED PATIENT- PATIENT WOULD LIKE HELP WITH GETTING AN APT IN REGARDS TO HIS CHRONIC CONSTIPATION. - CHW CONTACTED DR JIMENEZ OFFICE-SCHEDULED AN APT 01/05/20 @ 9:20AM EARLIEST APT. THEY DID PUT PATIENT ON THE WAIT LIST FOR CANCELLATIONS. - CHW CONTACTED PCP DR ENNIS-DISCUSSED A POSSIBLE REFERRAL TO A TIME CHECKER. - CHW LEFT A MESSAGE WITH SURESH COX AT [facility] -RESPIRATORY THERAPIST-PULMONARY REHAB. - SARI GÓMEZ-FLIGHT DECK OFFICER HAS EDUCATED PATIENT ABOUT PAIN MEDICATION AND CONSTIPATION 08/26/2019 [facility] Left message with [facility] requesting LAMA and ICS be added to patient\T\#[id number];s care plan. E.D. VISIT COUNT (12 MO.) 10 [facility] [place] TOTAL 10 NOTE: Visits indicate total known visits. ED/UCC VISIT TRACKING (12 MO.) 11/15/2020 08:14 [facility] TYPE: Emergency COMPLAINT: - CHEST PAIN, DIFF BREATHING 11/09/2020 00:36 [facility] TYPE: Emergency [...] - Chronic obstructive pulmonary disease, unspecified - long term care social worker (current) use of aspirin - Paroxysmal atrial fibrillation - 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 - Palpitations 11/28/2019 15:55 [facility] TYPE: Emergency COMPLAINT: - BACK PAIN DIAGNOSES: - Allergy status to other drugs, medicaments and biological substances - Low back pain - Personal history of nicotine dependence - Dorsalgia, unspecified - Unspecified atrial fibrillation - Other [facility] (current) 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 - Heart failure, unspecified [...] drugs, medicaments and biological substances - Other [facility] (current) 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 - Personal history of nicotine dependence - Heart failure, unspecified - Shortness of breath - Chronic atrial fibrillation, unspecified - Localized edema - long term care social worker (current) use of aspirin - Chronic obstructive pulmonary disease, unspecified - Dependence on supplemental oxygen INPATIENT VISIT TRACKING (12 MO.) 11/09/2020 10:08 [facility] TYPE: Medical Surgical COMPLAINT: - AFIB RVR 04/20/2020 19:59 [facility] TYPE: Medical Surgical COMPLAINT: - HYPOXIC [...] disorder, unspecified - Other constipation - Other m[facility]p (current) 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 - Permanent atrial fibrillation - Personal history of nicotine dependence - Gastro-esophageal reflux disease without esophagitis - Chronic obstructive pulmonary disease with (acute) lower respiratory infection - 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 - Major depressive disorder, single episode, unspecified - Acute on chronic diastolic (congestive) heart failure - Acute on chronic diastolic (congestive) heart failure - Presence of coronary angioplasty implant and graft - penitentiary (current) use of aspirin - Anxiety disorder, unspecified - Hyperlipidemia, unspecified - long term care social worker (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 analgesic - Personal history of nicotine dependence - Gastro-esophageal reflux disease without esophagitis - Presence of coronary angioplasty implant and graft - Gastro-esophageal reflux disease without esophagitis - Acute respiratory failure with hypoxia - penitentiary (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 analgesic - Allergy status to other drugs, medicaments and biological substances - long term care social worker (current) use of aspirin - Permanent atrial [...] Gastro-esophageal reflux disease without esophagitis - 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
--- NOTE | 2020-11-15 12:24 | EKG ---
[facility] [address] [place] [address] Signed Atrial fibrillation Right bundle branch block Left anterior fascicular block Bifascicular block Abnormal ECG When compared with ECG of 09-NOV-2020 00:40, T wave inversion now evident in Anterior leads Confirmed by ELADIO RUIZ DO ([id number]) on 11/15/2020 12:23:41 PM Electronically Signed By: ELADIO RUIZ DO 11/15/20 1224 PATIENT NAME: NATALIEDSON Electrocardiogram DATE OF : 35 PHYSICIAN: ELADIO RUIZ DO REPORT #: [id number] REPORT IS CONFIDENTIAL AND NOT TO BE RELEASED WITHOUT AUTHORIZATION
[2020-11-15] MEDS ORDERED: XANAX0.25 MG PO (12:40)
[2020-11-15] MEDS ORDERED: DILAUDID2 MG PO (12:40)
[2020-11-15] MEDS ORDERED: MORPHINE S20 MG/5 ML PO (12:40)
== END 2020-11-15 12:49 | disposition short-term general hospital (02) ==
LOC: ED 08:13
DX: J18.9 Pneumonia, unspecified organism (principal); C34.90 Malignant neoplasm of unspecified part of unspecified bronchus or lung; Z20.822 Contact with and (suspected) exposure to COVID-19; C79.31 Secondary malignant neoplasm of brain; I50.9 Heart failure, unspecified; I48.91 Unspecified atrial fibrillation; J44.9 Chronic obstructive pulmonary disease, unspecified; Z87.891 Personal history of nicotine dependence; Z88.8 Allergy status to other drugs, medicaments and biological substances; Z79.899 Other long term (current) 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
CPT/HCPCS: 71045; 80053; 83735; 84484; 85025; 85379; 93005; 93010; 94640; 96374; 96375; 99285-25; C9803; J0692; J2270; U0003